=== PATIENT | female | born 1945 | race Caucasian/White ===

== ENCOUNTER → 2018-04-16 11:02 | Outpatient (CLI) | payer BC, MEDICARE, SELFPAY ==
--- NOTE | 2018-04-16 11:04 | CDU_ITS ---
Reason For Study: Vertigo Rt. Velocities/BP Lt. Velocities/BP Prox CCA 87/12 cm/sec. Prox CCA 106/16 cm/sec. Mid CCA 87/16 cm/sec. Mid CCA 93/15 cm/sec. Dist CCA 101/18 cm/sec. Dist CCA 104/20 cm/sec. Prox ICA 161/30 cm/sec. Prox ICA 109/21 cm/sec. Mid ICA 166/25 cm/sec. Mid ICA 130/33 cm/sec. Dist ICA 138/34 cm/sec. Dist ICA 101/30 cm/sec. Rt. ICA/CCA = 1.91. Lt. ICA/CCA = 1.40. Prox ECA 236/3 cm/sec. Prox ECA 139/2 cm/sec. Rt. Vert. 96/20 cm/sec. Lt. Vert. 77/15 cm/sec. Right Extracranial There is heterogeneous, smooth atherosclerotic plaque noted in the right common carotid artery. There is heterogeneous, irregular atherosclerotic plaque noted in the right internal carotid artery. There is heterogeneous, irregular atherosclerotic plaque noted in the right external carotid artery. Antegrade flow is noted in the right vertebral artery. Left Extracranial There is heterogeneous, irregular atherosclerotic plaque noted in the left common carotid artery. There is heterogeneous, smooth atherosclerotic plaque noted in the left internal carotid artery. There is heterogeneous, irregular atherosclerotic plaque noted in the left external carotid artery. Antegrade flow is noted in the left vertebral artery. Procedure Carotid Duplex [id number]. Exam performed in department. Interpretation Summary Moderate (50-69%) stenosis right extracranial internal carotid. Mild (<50%) stenosis left extracranial internal carotid. Flow within the vertebral arteries is antegrade bilaterally. Ordering Physician: Qing Sheridan Referring Physician: Smith Orozco Performed By: Tamiko Singh, ZAIN, RVT
== END ==
PROVIDERS: Family Provider Family Medicine; PCP Family Medicine; Visit Provider Physician Assistant Medical
DX: R09.89 Other specified symptoms and signs involving the circulatory and respiratory systems (principal); I25.10 Atherosclerotic heart disease of native coronary artery without angina pectoris; I10 Essential (primary) hypertension; R42 Dizziness and giddiness; R00.2 Palpitations
CPT/HCPCS: 93225; 93226; 93880

== ENCOUNTER → 2018-04-25 09:19 | Outpatient (CLI) | payer BC, MEDICARE, SELFPAY ==
[2018-04-25 10:53] LABS: AST(SGOT) 19 U/L (15-37); Alanine Aminotransfer ALT/SGPT 17 U/L (13-56); Albumin, Serum 3.6 g/dL (3.2-5.0); Alkaline Phosphatase 65 U/L (45-117); Bilirubin, Direct 0.09 mg/dL (0.00-0.30); Cholesterol 202 mg/dL (200); Globulin 3.4 g/dL (2.2-4.2); High Density Lipoprotein 73 mg/dL; Triglycerides 63 mg/dL; Very Low Density Lipoprotein 13 mg/dL (5-40)
== END ==
PROVIDERS: Family Provider Family Medicine; PCP Family Medicine; Visit Provider Physician Assistant Medical
DX: I25.10 Atherosclerotic heart disease of native coronary artery without angina pectoris (principal); R09.89 Other specified symptoms and signs involving the circulatory and respiratory systems
CPT/HCPCS: 36415; 80061; 80076

== ENCOUNTER → 2018-05-23 12:14 | Outpatient (CLI) | payer BC, MEDICARE, SELFPAY ==
[2018-05-23 13:31] LABS: Free T3 2.5 pg/mL (2.18-3.98); T4 Free Direct 1.39 ng/dL (0.76-1.46); Thyroid Stim Hormone (TSH) 0.24 uIU/mL (0.358-3.74)
== END ==
PROVIDERS: Family Provider Family Medicine; PCP Family Medicine; Visit Provider Nurse Practitioner
DX: E03.9 Hypothyroidism, unspecified (principal); R13.10 Dysphagia, unspecified
CPT/HCPCS: 36415; 84439; 84443; 84481

== ENCOUNTER → 2018-07-19 07:04 | Outpatient (CLI) | payer BC, MEDICARE, SELFPAY ==
--- NOTE | 2018-07-19 09:59 | STRESSREP ---
Stress Test Report Date: 07/19/2018 Procedure: Exercise tolerance test/imaging study Indications: Chest pain Consent: Per the patient Procedure: The patient exercised on a Regulo protocol for 6 minutes completing Stage II achieving a peak heart rate of 137 bpm (93 % predicted maximal heart rate) with a peak blood pressure 182/80 mmHg and a peak MET capacity of 7 METs. The baseline ECG demonstrated. The peak exercise ECG demonstrated no obvious ECG changes. There was a rare PVC during recovery. The functional capacity was considered good. There was no complaint of chest discomfort during exercise or recovery. The examination was discontinued secondary to foot discomfort. Impression: 1. Technically adequate (percent predicted maximal heart rate greater than 85%) exercise tolerance test 2. Peak exercise ECG with no obvious ECG changes 3. There was a rare PVC during recovery 4. Nuclear images pending Myocardial perfusion imaging study: Technique: The patient was injected with 10.9 mCi of technetium 99m Cardiolite and subsequently rest SPECT Cardiolite nuclear imaging was obtained in the horizontal long, vertical long, and short axis views. The patient exercised on a Regulo protocol for 6 minutes completing Stage II achieving a peak heart rate of 137 bpm (93 % predicted maximal heart rate) with a peak blood pressure 182/80 mmHg and a peak MET capacity of 7 METs. The patient was injected with 32.5 mCi of technetium 99m Cardiolite and subsequently stress SPECT Cardiolite nuclear imaging was obtained in the horizontal long, vertical long, and short axis views. A gated Cardiolite study at peak stress was obtained. Interpretation: Rest and stress SPECT Cardiolite nuclear imaging status post realignment, normalization, and attenuation correction, demonstrates the appearance of relative uniform tracer uptake and myocardial perfusion appearing within normal limits. There is end systolic thickening and brightening. The gated Cardiolite study demonstrates myocardial thickening and inward wall motion. The reported LVEF is 85 %. Impression: 1. Rest and stress SPECT Cardiolite nuclear imaging demonstrate relative uniform tracer uptake and myocardial perfusion appearing within normal limits. 2. The gated Cardiolite study reports an LVEF of 85 %. This note was generated with [employer] software. It may contain incorrect words, spelling, and punctuation that were not noted in checking the note before signing.
--- NOTE | 2018-07-19 10:02 | STRESSREP_ITS ---
Stress Test Report Date: 07/19/2018 Procedure: Exercise tolerance test/imaging study Indications: Chest pain Consent: Per the patient Procedure: The patient exercised on a Regulo protocol for 6 minutes completing Stage II achieving a peak heart rate of 137 bpm (93 % predicted maximal heart rate) with a peak blood pressure 182/80 mmHg and a peak MET capacity of 7 METs. The baseline ECG demonstrated. The peak exercise ECG demonstrated no obvious ECG changes. There was a rare PVC during recovery. The functional capacity was considered good. There was no complaint of chest discomfort during exercise or recovery. The examination was discontinued secondary to foot discomfort. Impression: 1. Technically adequate (percent predicted maximal heart rate greater than 85%) exercise tolerance test 2. Peak exercise ECG with no obvious ECG changes 3. There was a rare PVC during recovery 4. Nuclear images pending Myocardial perfusion imaging study: Technique: The patient was injected with 10.9 mCi of technetium 99m Cardiolite and subsequently rest SPECT Cardiolite nuclear imaging was obtained in the horizontal long, vertical long, and short axis views. The patient exercised on a Regulo protocol for 6 minutes completing Stage II achieving a peak heart rate of 137 bpm (93 % predicted maximal heart rate) with a peak blood pressure 182/80 m mHg and a peak MET capacity of 7 METs. The patient was injected with 32.5 mCi of technetium 99m Cardiolite and subsequently stress SPECT Cardiolite nuclear imaging was obtained in the horizontal long, vertical long, and short axis views. A gated Cardiolite study at peak stress was obtained. Interpretation: Rest and stress SPECT Cardiolite nuclear imaging status post realignment, normalization, and attenuation correction, demonstrates the appearance of relative uniform tracer uptake and myocardial perfusion appearing within normal limits. There is end systolic thickening and brightening. The gated Cardiolite study demonstrates myocardial thickening and inward wall motion. The reported LVEF is 85 %. Impression: 1. Rest and stress SPECT Cardiolite nuclear imaging demonstrate relative uniform tracer uptake and myocardial perfusion appearing within normal limits. 2. The gated Cardiolite study reports an LVEF of 85 %. This note was generated with TMS software. It may contain incorrect words, spelling, and punctuation that were not noted in checking the note before signing.
== END ==
PROVIDERS: Family Provider Family Medicine; PCP Family Medicine; Referring Provider Physician Assistant Medical; Visit Provider Physician Assistant Medical
DX: R07.9 Chest pain, unspecified (principal); I25.10 Atherosclerotic heart disease of native coronary artery without angina pectoris; E78.5 Hyperlipidemia, unspecified; I10 Essential (primary) hypertension; R00.2 Palpitations; R09.89 Other specified symptoms and signs involving the circulatory and respiratory systems
CPT/HCPCS: 78452; 93017; A9500; A4216

== ENCOUNTER → 2019-01-18 08:09 | Outpatient (CLI) | payer BC, MEDICARE, SELFPAY ==
[2018-08-01 13:39] VITALS: BMI 22.6
[2019-01-18 10:33] LABS: Absolute Lymphocyte Count 1.22 X10^3/ul (0.83-4.51); Absolute Neutrophil Count 3.1 X10^3/uL (2.0-7.7); Basophil# 0.03 X10^3/uL; Basophil% 0.6 % (0-1); Eosinophil# 0.11 X10^3/uL; Eosinophils% 2.3 % (0-5); Hematocrit 39.3 % (37-47); Lymphocyte # 1.22 X10^3/ul (4.0); Lymphocyte % 25.6 % (19-41); Mean Corp Hgb Conc 33.1 g/gl (32-36); Mean Corpuscular Hgb 28.1 pg (27.0-32.0); Mean Corpuscular Volume 85.1 fL (81-99); Mean Platelet Vol. 8.7 fl (6.2-12.0); Monocyte# 0.31 X10^3/uL; Monocyte% 6.5 % (0-10); Neutrophil # 3.09 X10^3/uL (2.7-7.7); POSITIVE COUNT NO; POSITIVE DIFFERENTIAL NO; POSITIVE MORPHOLOGY NO; Platelet Count 310 K/mm3 (150-450); RBC Distribution Width CV 13.1 % (11.6-14.6); RBC Distribution Width SD 40.6 fl (35.1-43.9); Red Blood Count 4.62 M/mm3 (4.2-5.4); White Blood Count 4.8 K/mm3 (4.4-11.0)
[2019-01-18 11:06] LABS: Anion Gap 7 (5-15); BUN 16 mg/dL (7-18); BUN/Creat Ratio 19.3 RATIO (10-20); Calcium,Total 8.7 mg/dL (8.5-10.1); Chloride 105 mmol/L (98-107); Creatinine, Serum 0.83 mg/dL (0.55-1.02); EST Glomerular Filtration Rate 72 mL/min (>60); Est Glom Filt Rate - Afr Amer 87 mL/min (>60); Glucose 106 mg/dL (74-106); Magnesium 2.1 mg/dL (1.6-2.6); Potassium 3.7 mmol/L (3.5-5.1); Sodium Level 141 mmol/L (136-145); T4 Free Direct 1.28 ng/dL (0.76-1.46)
== END ==
PROVIDERS: Family Provider Family Medicine; PCP Family Medicine; Referring Provider Nurse Practitioner Family; Visit Provider Nurse Practitioner Family
DX: I48.0 Paroxysmal atrial fibrillation (principal); I25.10 Atherosclerotic heart disease of native coronary artery without angina pectoris; R00.2 Palpitations
CPT/HCPCS: 36415; 80048; 83735; 84439; 84443; 85025

== ENCOUNTER → 2019-02-05 10:55 | Outpatient (CLI) | payer BC, MEDICARE, SELFPAY ==
[2018-08-01 13:39] VITALS: BMI 22.6
[2019-01-30 08:29] VITALS: BMI 22.8
--- NOTE | 2019-02-05 10:56 | ECHOD_ITS ---
Reason For Study: New Afib Procedure This was a 2D Doppler, Color Flow transthoracic echocardiogram. Exam performed in department. Left Ventricle Normal LV size. Left ventricular systolic function is normal. The estimated ejection fraction is 65 %. The global longitudinal strain = -21 % (normal). There is evidence of diastolic dysfunction. No regional wall motion abnormalities noted. Right Ventricle Normal RV size. Normal systolic function. Atria Normal left atrium. Normal right atrium. No doppler evidence for ASD. Mitral Valve There is no mitral annular calcification. Mild diffuse mitral valve thickening. Mild (1+) mitral valve insufficiency. Tricuspid Valve Normal tricuspid valve. Mild tricuspid valve insufficiency. Right ventricular systolic pressure estimated to be 29 mmHg. Aortic Valve Trisinus/trileaflet aortic valve. Mild diffuse aortic valve thickening. Mild focal aortic valve calcification. Aortic sclerosis, no stenosis. Trivial aortic valve insufficiency. Pulmonic Valve The pulmonic valve is not well visualized. Trivial pulmonic valve insufficiency. Great Vessels Normal sized aortic root. Pericardium/Pleural No pericardial effusion. MMode/2D Measurements & Calculations LVIDd: 3.2 cm IVSd: 1.5 cm Ao root diam: 3.0 cm LVIDs: 1.9 cm LVPWd: 0.84 cm LA dimension: 3.2 cm RVDd: 2.8 cm FS: 40.0 % LAV(MOD-bp): 46.0 ml LA A4 area: 16.1 cm2 RA A4 area: 15.2 cm2 LAV(MOD-bp) Indexed: 29.9 ml/m2 LAV(MOD-sp2): 49.9 ml LAV(MOD-sp4): 40.7 ml Time Measurements MV dec time: 0.25 sec Doppler Measurements & Calculations MV E max galen: 83.0 cm/sec Lat Peak E' Galen: 7.4 cm/sec Med Peak E' Galen: 5.0 cm/sec MV A max galen: 104.1 cm/sec E/E' lat: 11.3 E/E' med: 16.7 MV E/A: 0.80 MV V2 max: 113.6 cm/sec MV P1/2t max galen: 77.0 cm/sec Ao V2 max: 142.4 cm/sec MV max P.2 mmHg MV P1/2t: 100.4 msec Ao max P.1 mmHg MV V2 mean: 58.9 cm/sec MV dec slope: 224.8 cm/sec2 MV mean P.6 mmHg MVA(P1/2t): 2.2 cm2 MV V2 VTI: 32.1 cm AI end-d galen: 299.0 cm/sec LV V1 max: 81.4 cm/sec PA V2 max: 79.0 cm/sec LV V1 max P.7 mmHg TR max galen: 253.1 cm/sec TR max P.6 mmHg Interpretation Summary Left ventricular systolic function is normal. The estimated ejection fraction is 65 %. The global longitudinal strain = -21 % (normal). Mild diffuse mitral valve thickening. Mild (1+) mitral valve insufficiency. Mild tricuspid valve insufficiency. Aortic sclerosis, no stenosis. Trivial aortic valve insufficiency. Trivial pulmonic valve insufficiency. There is evidence of diastolic dysfunction. Ordering Physician: Maciel Singh Referring Physician: Maciel Singh Performed By: Gadiel Fox RCS
[2019-02-05 12:53] LABS: AST(SGOT) 21 U/L (15-37); Alanine Aminotransfer ALT/SGPT 24 U/L (13-56); Albumin, Serum 3.4 g/dL (3.2-5.0); Alkaline Phosphatase 78 U/L (45-117); Bilirubin, Direct 0.08 mg/dL (0.00-0.30); Cholesterol 148 mg/dL (200); Globulin 3.3 g/dL (2.2-4.2); High Density Lipoprotein 61 mg/dL; Protein, Total 6.7 g/dL (6.4-8.2); Triglycerides 76 mg/dL; Very Low Density Lipoprotein 15 mg/dL (5-40)
== END ==
PROVIDERS: Physician Assistant Medical; Family Provider Family Medicine; PCP Family Medicine; Referring Provider Nurse Practitioner Family; Visit Provider Nurse Practitioner Family
DX: I48.0 Paroxysmal atrial fibrillation (principal); R00.2 Palpitations; I25.10 Atherosclerotic heart disease of native coronary artery without angina pectoris; E78.5 Hyperlipidemia, unspecified
CPT/HCPCS: 36415; 80061; 80076; 93306

== ENCOUNTER → 2019-04-10 12:51 | Outpatient (CLI) | payer BC, MEDICARE, SELFPAY ==
[2019-01-30 08:29] VITALS: BMI 22.8
[2019-04-10 14:56] LABS: Absolute Lymphocyte Count 1.31 X10^3/uL (0.83-4.51); Absolute Neutrophil Count 2.8 X10^3/uL (2.0-7.7); Basophil# 0.03 X10^3/uL; Basophil% 0.6 % (0-1); Eosinophil# 0.14 X10^3/uL; Hematocrit 37.1 % (37-47); Hemoglobin 12.1 g/dL (12.0-15.0); Lymphocyte # 1.31 X10^3/ul (4.0); Lymphocyte % 27.7 % (19-41); Mean Corp Hgb Conc 32.6 g/dL (32-36); Mean Corpuscular Hgb 27.7 pg (27.0-32.0); Mean Corpuscular Volume 84.9 fL (81-99); Mean Platelet Vol. 8.7 fl (6.2-12.0); Monocyte# 0.44 X10^3/uL; Monocyte% 9.3 % (0-10); NRBC Flagged by Analyzer 0 % (0-5); Neutrophil # 2.81 X10^3/uL (2.7-7.7); Neutrophil % 59.4 % (47-70); Platelet Count 314 K/mm3 (150-450); RBC Distribution Width CV 13.9 % (11.6-14.6); RBC Distribution Width SD 43.1 fl (35.1-43.9); Red Blood Count 4.37 M/mm3 (4.2-5.4); White Blood Count 4.7 K/mm3 (4.4-11.0)
[2019-04-10 15:23] LABS: T4 Free Direct 1.35 ng/dL (0.76-1.46); Thyroid Stim Hormone (TSH) 0.52 uIU/mL (0.358-3.74)
== END ==
PROVIDERS: Family Provider Family Medicine; PCP Family Medicine; Referring Provider Nurse Practitioner Family; Visit Provider Nurse Practitioner Family
DX: I10 Essential (primary) hypertension (principal); I25.10 Atherosclerotic heart disease of native coronary artery without angina pectoris; E03.9 Hypothyroidism, unspecified; I51.7 Cardiomegaly; R00.2 Palpitations; Z79.899 Other long term (current) drug therapy; Z95.5 Presence of coronary angioplasty implant and graft
CPT/HCPCS: 36415; 84439; 84443; 85025

== ENCOUNTER → 2019-05-08 16:21 | Outpatient (CLI) | payer BC, MEDICARE, SELFPAY ==
[2019-05-08 14:54] VITALS: BMI 22.6
[2019-05-08 17:40] LABS: Absolute Lymphocyte Count 1.63 X10^3/uL (0.83-4.51); Absolute Neutrophil Count 3.5 X10^3/uL (2.0-7.7); Basophil# 0.03 X10^3/uL; Basophil% 0.5 % (0-1); Eosinophil# 0.16 X10^3/uL; Eosinophils% 2.7 % (0-5); Hematocrit 36.6 % (37-47); Hemoglobin 12.2 g/dL (12.0-15.0); Lymphocyte # 1.63 X10^3/ul (4.0); Lymphocyte % 27.9 % (19-41); Mean Corp Hgb Conc 33.3 g/dL (32-36); Mean Corpuscular Hgb 28.3 pg (27.0-32.0); Mean Corpuscular Volume 84.9 fL (81-99); Mean Platelet Vol. 8.7 fl (6.2-12.0); Monocyte# 0.47 X10^3/uL; NRBC Flagged by Analyzer 0 % (0-5); Neutrophil # 3.54 X10^3/uL (2.7-7.7); Neutrophil % 60.7 % (47-70); Platelet Count 280 K/mm3 (150-450); RBC Distribution Width CV 13.3 % (11.6-14.6); RBC Distribution Width SD 41.5 fl (35.1-43.9); Red Blood Count 4.31 M/mm3 (4.2-5.4); White Blood Count 5.8 K/mm3 (4.4-11.0)
[2019-05-08 18:02] LABS: Anion Gap 4 (5-15); BUN 16 mg/dL (7-18); BUN/Creat Ratio 17.6 RATIO (10-20); Calcium,Total 8.8 mg/dL (8.5-10.1); Chloride 106 mmol/L (98-107); Creatinine, Serum 0.91 mg/dL (0.55-1.02); EST Glomerular Filtration Rate 64 mL/min (>60); Est Glom Filt Rate - Afr Amer 78 mL/min (>60); Glucose 111 mg/dL (74-106); Magnesium 1.9 mg/dL (1.6-2.6); Sodium Level 139 mmol/L (136-145); T4 Free Direct 1.42 ng/dL (0.76-1.46)
== END ==
PROVIDERS: Family Provider Family Medicine; PCP Family Medicine; Referring Provider Nurse Practitioner Family; Visit Provider Nurse Practitioner Family
DX: R00.2 Palpitations (principal); E03.9 Hypothyroidism, unspecified; I10 Essential (primary) hypertension; I35.1 Nonrheumatic aortic (valve) insufficiency; R53.83 Other fatigue
CPT/HCPCS: 36415; 80048; 83735; 84439; 84443; 85025

== ENCOUNTER 2019-06-20 18:15 | Emergency (ER) | payer BC, MEDICARE, SELFPAY ==
[2019-05-08 14:54] VITALS: BMI 22.6
[2019-06-20 18:16] VITALS: BP 163/114; PULSE 67; RESP 17; TEMP 36.8; O2SAT 96; BMI 22.6
--- NOTE | 2019-06-20 18:36 | CT_ITS ---
STUDY: CT BRAIN WITHOUT CONTRAST REASON FOR EXAM: Female, 73 years old. Fall RADIATION DOSAGE (If Supplied By Facility): DLP = ( 745.49 ) mGycm TECHNIQUE: Transaxial CT imaging of the brain was performed without administration of intravenous contrast material. Individualized dose optimization techniques were used for this CT. COMPARISON: CT head August 29, 2015 FINDINGS: There is no acute bleed or infarct. There are chronic ischemic and atrophic changes. The ventricles are normal in configuration. There is no hydrocephalus. The visualized paranasal sinuses are clear. The mastoid air cells are well aerated. There is no skull fracture. CT/Brain/Head without Contrast IMPRESSION: No acute intracranial abnormality. Chronic ischemic and atrophic changes. Electronically Signed: Jose Lopez, at 18:58 EDT Tel , Service support ,
--- NOTE | 2019-06-20 19:07 | ED.DCSUM_ITS ---
- ER Visit Summary Date of Service: 06/20/19 Chief Complaint: [Head injury] History of Present Illness: The patient is a 73 F [presents to the emergency department after sustaining a head injury on June 13. Patient was in [place] and fell and struck her head on a [place]. No loss of consciousness. Patient continues to have headaches. Patient had some diminished hearing from the left ear for some time but that seemed to improve. Patient was seen by primary care physician who ordered a outpatient CT of her head but they recommended that she come to the emergency department to have it performed emergently as 1 of the medical radiation dosimetrist evaluating her thought there might be blood behind her left eardrum. Patient denies any neck pain. Denies chest pain or abdominal pain. She is had no nausea or vomiting. Continues to have intermittent headaches.] She does take aspirin but no other blood thinners. Physical Examination: [HEENT-PERRLA, EOMI. Cranial nerves II through XII grossly intact. TMs clear. Mucous membranes moist. No adenopathy. Patient does have some dried blood to the left TM but also the right TM however I do not appreciate any hemotympanum. Cardiovascular-regular rate and rhythm without murmur or ectopy Lungs-clear to auscultation, chest wall stable without crepitus or subcu emphysema Abdomen-normoactive bowel sounds, soft, nontender, no rebound or rigidity, no peritoneal signs. Neuro zeqi-iftmya-zjer and heel grande testing within normal limits, negative Romberg, negative pronator drift, fundi benign Extremities-intact ?4, normal range of motion, normal pulses, atraumatic] Test Results: [CT scan of the brain without contrast obtained was unremarkable and only showed chronic age-related changes. There is no evidence of intracranial hemorrhage or skull fracture.] Emergency Department Course and Treatment: [] Treatment Plan: [Follow-up with her primary care physician in 3 to 5 days. Patient advised to return if vomiting, difficulty with balance, or condition should worsen anyway.] Disposition: [Discharged home in stable condition.] Impression: [Closed head injury/concussion] This note was generated with [employer] software. It may contain incorrect words, spelling, and punctuation that were not noted in review of the chart prior to signing ED Disposition - Plan for ED Patient: Referrals: Singh Brunner NP-C [Primary Care Provider] -
--- NOTE | 2019-06-20 19:10 | ED.DEP ---
ED Disposition - Plan for ED Patient: Instructions: FALL, Mechanical, CONCUSSION, No Wake Up Referrals: Singh Brunner NP-C [Primary Care Provider] - 3-5 Days
[2019-06-20 19:32] VITALS: RESP 18
== END 2019-06-20 19:33 | disposition home or self-care (01) ==
LOC: ED 18:43
PROVIDERS: Emergency Provider Emergency Medicine; Family Provider Nurse Practitioner Primary Care; PCP Nurse Practitioner Primary Care
DX: S06.0X0A Concussion without loss of consciousness, initial encounter (principal); W18.09XA Striking against other object with subsequent fall, initial encounter; Z79.82 Long term (current) use of aspirin; I25.10 Atherosclerotic heart disease of native coronary artery without angina pectoris; I10 Essential (primary) hypertension; I48.91 Unspecified atrial fibrillation
CPT/HCPCS: 70450; 99282

== ENCOUNTER 2019-12-24 13:07 | Emergency (ER) | payer BC, MEDICARE, SELFPAY ==
[2019-12-24 13:09] VITALS: BP 190/65; PULSE 62; RESP 12; TEMP 36.6; O2SAT 99; BMI 23.3
--- NOTE | 2019-12-24 13:23 | EKG12_ITS ---
Test Reason : NEURO Blood Pressure : / mmHG Vent. Rate : 055 BPM Atrial Rate : 055 BPM P-R Int : 190 ms QRS Dur : 068 ms QT Int : 438 ms P-R-T Axes : 026 022 051 degrees QTc Int : 419 ms Sinus bradycardia Nonspecific ST and T wave abnormality Abnormal ECG Confirmed by BIBIANA PALACIOS ([id number]), dictionary editor LUCILA GRANDA ([id number]) on 12/26/2019 10:15:56 AM Referred By: PEYTON/KEV Confirmed By:BIBIANA PALACIOS
--- NOTE | 2019-12-24 13:23 | RAD_ITS ---
STUDY: X-RAY CHEST REASON FOR EXAM: Female, 74 years old. Sore throat and cough x several days TECHNIQUE: Single AP portable view of the chest. COMPARISON: Comparison is made with prior examination dated October 08, 2015. FINDINGS: EKG electrodes are seen. Hyperinflation. The lungs are clear. There is no demonstrated pleural abnormality. Normal size heart. Normal mediastinum and dionne. Normal visualized pulmonary arteries. There is atherosclerotic calcification of the aortic arch with tortuosity. There are diffuse degenerative changes of the visualized thoracic spine. Healed left rib fractures. There is no demonstrated abnormality of the visualized soft tissue structures of the upper abdomen. RAD/Chest 1 View (Portable) IMPRESSION: Hyperinflation. The lungs are clear. Electronically Signed: Chevy Fields, at 14:37 EDT , Service support ,
--- NOTE | 2019-12-24 13:24 | CT_ITS ---
STUDY: CT BRAIN WITHOUT CONTRAST REASON FOR EXAM: Female, 74 years old. LT FACIAL DROOP, COUGH and amp; SORE THROAT X 3 DAYS, HTN, CORONARY STENTS RADIATION DOSAGE (If Supplied By Facility): CTDIvol = ( 44.99 ) mGy, DLP = ( 762.36 ) mGycm TECHNIQUE: Transaxial CT imaging of the brain was performed without administration of intravenous contrast material. Individualized dose optimization techniques were used for this CT. COMPARISON: Comparison is made with prior examination dated June 20, 2019. FINDINGS: Normal soft tissue structures. Normal calvarium. There is mild cerebral atrophy with widening of the extra-axial spaces and ventricular dilatation. There are areas of decreased attenuation within the white matter tracts of the supratentorial brain, consistent with microvascular disease changes. Normal basal ganglia and thalami. Normal brainstem. Normal cerebellum. There is no intracranial hemorrhage. There are no findings of an acute ischemic infarction. Atherosclerotic calcification of the cavernous portions of the internal carotid arteries bilaterally. Normal visualized paranasal sinuses. CT/Brain/Head without Contrast IMPRESSION: Chronic involutional changes of the brain. Electronically Signed: Chevy Fields, at 14:33 EDT , Service support ,
[2019-12-24 13:31] LABS: Absolute Lymphocyte Count 1.76 X10^3/uL (0.83-4.51); Absolute Neutrophil Count 2.7 X10^3/uL (2.0-7.7); Basophil# 0.03 X10^3/uL; Basophil% 0.6 % (0-1); Eosinophil# 0.11 X10^3/uL; Eosinophils% 2.2 % (0-5); Hemoglobin 13.7 g/dL (12.0-15.0); Lymphocyte # 1.76 X10^3/ul (4.0); Lymphocyte % 34.6 % (19-41); Mean Corp Hgb Conc 34.3 g/dL (32-36); Mean Corpuscular Volume 87.5 fL (81-99); Mean Platelet Vol. 8.3 fl (6.2-12.0); Monocyte# 0.47 X10^3/uL; Monocyte% 9.2 % (0-10); NRBC Flagged by Analyzer 0 % (0-5); Neutrophil # 2.71 X10^3/uL (2.7-7.7); Neutrophil % 53.2 % (47-70); Platelet Count 293 K/mm3 (150-450); RBC Distribution Width CV 12.3 % (11.6-14.6); RBC Distribution Width SD 39.4 fl (35.1-43.9); Red Blood Count 4.57 M/mm3 (4.2-5.4); White Blood Count 5.1 K/mm3 (4.4-11.0)
[2019-12-24] MEDS: 0.9% Normal Saline 1,000 ML 150 ML IV (13:38)
[2019-12-24 13:42] LABS: Lactic Acid 0.9 mmol/L (0.4-1.9)
[2019-12-24 13:44] LABS: Anion Gap 3 (5-15); BUN 15 mg/dL (7-18); BUN/Creat Ratio 17.3 RATIO (10-20); Chloride 105 mmol/L (98-107); Creatinine, Serum 0.86 mg/dL (0.55-1.02); EST Glomerular Filtration Rate 68 mL/min (>60); Est Glom Filt Rate - Afr Amer 82 mL/min (>60); Estimated Creatinine Clearance 46.76 ml/min; Glucose 100 mg/dL (74-106); Potassium 3.8 mmol/L (3.5-5.1); Sodium Level 138 mmol/L (136-145)
[2019-12-24 13:50] LABS: Bedside Glucose 94 mg/dL (70-110)
--- NOTE | 2019-12-24 14:36 | ED.DCSUM_ITS ---
- ER Visit Summary Date of Service: 12/24/19 Chief Complaint: Cough History of Present Illness: The patient is a [address] Perez and Dr. Max. She reports that she has a cough that began 2 days ago. Is productive clear sputum without blood. She has subjective fever and chills. She reports that she has an itchy throat. She denies any pain. She reports that she has mild shortness of breath that is much worse when she is coughing. She complains of generalized weakness and a headache that 6 out of 10 in severity. Patient works at [employer] in [place] and had been working until 5 days ago. On review of systems patient reports that 3 days ago she had an episode of floating tattered flags that were black-white and silver in her vision bilaterally. This resolved after approximately 10 minutes. She has not had this since that time. She reports that since yesterday she feels as though she has a left facial droop. She denies any numbness or weakness in her arms or legs. No aphasia. No further changes in her vision. Physical Examination: Vitals: Stable. Afebrile. General: Well-nourished and well-developed. Head: Normocephalic atraumatic. Neck: Supple, no lymphadenopathy. No JVD. Nontender. Cardiovascular: Regular rate and rhythm. No murmurs. Respiratory: No respiratory distress. Clear to auscultation bilaterally. Abdominal: Soft, nontender, nondistended, normal bowel sounds. No guarding, rebound, or peritoneal signs. Back: Nontender. Extremities: Nontender, no edema. Skin: Normal color, no rash. Neurologic: Alert and oriented ?3. Cranial nerves II through XII are intact except for a very minimal left facial droop. Normal strength and sensation. Psych: Normal affect. Test Results: EKG is sinus bradycardia [address] changes. Troponin is negative. Influenza is negative. Chem-7 is normal. CBC is normal. Lactic acid is 0.9. Clinical Impression(s) from Imaging Studies Chest X-Ray 12/24/19 13:23 IMPRESSION: Hyperinflation. The lungs are clear. Electronically Signed: Chevy Fields, at 14:37 EDT , Service support , Brain CT 12/24/19 13:24 IMPRESSION: Chronic involutional changes of the brain. Electronically Signed: Chevy Fields, at 14:33 EDT , Service support , Emergency Department Course and Treatment: Patient is wearing a mask. I do not know if the facial droop is from this. There is very minimal and her NIH scale would only be 1. I discussed the possibility of staying in the hospital for a stroke work-up with her. She has refused this. However, she is quite concerned that she does have coronavirus. Patient was discussed with the [facility] and has had a coronavirus test sent. Treatment Plan: Patient will be discharged with instructions to have social isolation and quarantine herself for the next 2 weeks. She was given instructions on how to do this. Follow-up with her primary care physician in 2 weeks if not improving. Return to the emergency department for any worsening symptoms. Disposition: To home in improved and stable condition. Impression: 1. URI. 2. Suspected COVID-19 exposure. 3. Left facial droop. This note was generated with [employer] dictation software. It may contain incorrect words, spelling, and punctuation that were not noted in review of the chart prior to signing ED Disposition - Plan for ED Patient: Instructions: ED Upper Resp Infec No Abx Tx Referrals: Smith Orozco MD [STAFF PHYSICIAN] - 10-14 Days if not better
[2019-12-24 15:48] VITALS: BP 185/65; PULSE 52; RESP 11; O2SAT 100
--- NOTE | 2019-12-30 12:50 | ED.RN ---
PT NOTIFIED COVID-19 TEST NEGATIVE
== END 2019-12-24 16:09 | disposition home or self-care (01) ==
LOC: ED 14:23
PROVIDERS: Emergency Provider Emergency Medicine; PCP Nurse Practitioner Family
DX: J06.9 Acute upper respiratory infection, unspecified (principal); Z20.828 Contact with and (suspected) exposure to other viral communicable diseases; R29.810 Facial weakness; I11.0 Hypertensive heart disease with heart failure; I50.9 Heart failure, unspecified; E03.9 Hypothyroidism, unspecified; K21.9 Gastro-esophageal reflux disease without esophagitis; Z79.82 Long term (current) use of aspirin; Z79.899 Other long term (current) drug therapy; Z95.5 Presence of coronary angioplasty implant and graft
CPT/HCPCS: 70450; 71045; 80048; 82962; 83605; 84484; 85025; 87040; 87633; 87635; 87804; 93005; 96360; 96361; 99284; J7030; U0004

== ENCOUNTER → 2020-02-26 07:27 | Outpatient (CLI) | payer BC, MEDICARE, SELFPAY ==
[2020-02-05 10:13] VITALS: BMI 21.8
--- NOTE | 2020-02-26 07:32 | CDU_ITS ---
Reason For Study: Carotid artery disease Rt. Velocities/BP Lt. Velocities/BP Prox CCA 69.5/13.4 cm/sec. Prox CCA 87.5/18.8 cm/sec. Mid CCA 69.5/13.4 cm/sec. Mid CCA 70.3/16.3 cm/sec. Dist CCA 91.7/22.6 cm/sec. Dist CCA 75.3/20 cm/sec. Prox ICA 121.4/16 cm/sec. Prox ICA 61.8/18.8 cm/sec. Mid ICA 147.7/27 cm/sec. Mid ICA 96.1/29.8 cm/sec. Dist ICA 112.6/27 cm/sec. Dist ICA 77.7/24.9 cm/sec. Rt. ICA/CCA = 2.13. Lt. ICA/CCA = 1.28. Prox ECA 148.4 cm/sec. Prox ECA 99.8 cm/sec. Rt. Vert. 71.6/10.2 cm/sec. Lt. Vert. 55.3/15.7 cm/sec. Right Extracranial There is heterogeneous, smooth atherosclerotic plaque noted in the right common carotid artery. There is heterogeneous, irregular atherosclerotic plaque noted in the right internal carotid artery. The atherosclerotic plaque causes acoustic shadowing. There is heterogeneous, irregular atherosclerotic plaque noted in the right external carotid artery. Antegrade flow is noted in the right vertebral artery. Left Extracranial There is heterogeneous, smooth atherosclerotic plaque noted in the left common carotid artery. There is heterogeneous, irregular atherosclerotic plaque noted in the left internal carotid artery. There is intimal thickening but no significant atherosclerotic plaque noted in the left external carotid artery. Antegrade flow is noted in the left vertebral artery. Procedure Carotid Duplex [id number]. Exam performed in department. Interpretation Summary Moderate (50-69%) stenosis right extracranial internal carotid. Mild (<50%) stenosis left extracranial internal carotid. Flow within the vertebral arteries is antegrade bilaterally. Ordering Physician: Nicholas Max Referring Physician: Kushal Mathur Performed By: Portia Benjamin RVT
[2020-02-26 08:23] LABS: AST(SGOT) 23 U/L (15-37); Alanine Aminotransfer ALT/SGPT 21 U/L (13-56); Albumin, Serum 3.7 g/dL (3.2-5.0); Alkaline Phosphatase 77 U/L (45-117); Bilirubin, Direct 0.12 mg/dL (0.00-0.30); Cholesterol 148 mg/dL (200); Globulin 3.5 g/dL (2.2-4.2); High Density Lipoprotein 69 mg/dL; Protein, Total 7.2 g/dL (6.4-8.2); Triglycerides 69 mg/dL; Very Low Density Lipoprotein 14 mg/dL (5-40)
--- NOTE | 2020-02-26 09:17 | STRESSREP ---
Stress Test Report Date: 02-26-2020 Procedure: Exercise tolerance test/imaging study Indications: Shortness of breath/dyspnea; fatigue; CAD; status post PCI Consent: Per the patient Procedure: The patient exercised on a Regulo protocol for 7 minutes and 30 seconds completing Stage II and 1 minute and 30 seconds of Stage III achieving a peak heart rate of 121 bpm (83 % predicted maximal heart rate) with a peak blood pressure 162/60 mmHg and a peak MET capacity of 9 METs. The baseline ECG demonstrated sinus bradycardia. The peak exercise ECG demonstrated somatic/motion artifact with no obvious ECG changes. There were no cardiac dysrhythmias pretest, during exercise, or recovery. The functional capacity was considered good. There was no complaint of chest discomfort during exercise or recovery. The examination was discontinued secondary to fatigue. Impression: 1. Technically inadequate (percent predicted maximal heart rate less than 85%) exercise tolerance test 2. Peak exercise ECG somatic/motion artifact with no obvious ECG changes at the heart rate achieved 3. There were no cardiac dysrhythmias pretest, during exercise, or recovery 4. Nuclear images pending Myocardial perfusion imaging study: Technique: The patient was injected with 11.0 mCi of technetium 99m Cardiolite and subsequently rest SPECT Cardiolite nuclear imaging was obtained in the horizontal long, vertical long, and short axis views. The patient exercised on a Regulo protocol for 7 minutes and 30 seconds completing Stage II and 1 minute and 30 seconds of Stage III achieving a peak heart rate of 121 bpm (83 % predicted maximal heart rate) with a peak blood pressure 162/60 mmHg and a peak MET capacity of 9 METs. The patient was injected with 35.7 mCi of technetium 99m Cardiolite and subsequently stress SPECT Cardiolite nuclear imaging was obtained in the horizontal long, vertical long, and short axis views. A gated Cardiolite study at peak stress was obtained. Interpretation: Rest and stress SPECT Cardiolite nuclear imaging status post realignment, normalization, and attenuation correction, demonstrates the appearance of relative uniform tracer uptake and myocardial perfusion appearing within normal limits. There is end systolic thickening and brightening. The gated Cardiolite study demonstrates myocardial thickening and inward wall motion. The reported LVEF is 95 %. Impression: 1. Rest and stress SPECT Cardiolite nuclear imaging demonstrate relative uniform tracer uptake and myocardial perfusion appearing within normal limits at the heart rate achieved. 2. The gated Cardiolite study reports an LVEF of 95 %. This note was generated with [employer] software. It may contain incorrect words, spelling, and punctuation that were not noted in checking the note before signing.
== END ==
PROVIDERS: Physician Assistant Medical; PCP Nurse Practitioner Family; Referring Provider Internal Medicine Cardiovascular Disease; Visit Provider Internal Medicine Cardiovascular Disease
DX: I65.23 Occlusion and stenosis of bilateral carotid arteries (principal); I25.10 Atherosclerotic heart disease of native coronary artery without angina pectoris; I77.9 Disorder of arteries and arterioles, unspecified; I35.9 Nonrheumatic aortic valve disorder, unspecified; I10 Essential (primary) hypertension; E78.5 Hyperlipidemia, unspecified; Z95.5 Presence of coronary angioplasty implant and graft
CPT/HCPCS: 36415; 78452; 80061; 80076; 93017; 93880; A9500; A4216

== ENCOUNTER 2020-08-26 07:52 | Day surgery (SDC) | payer BC, MEDICARE, SELFPAY ==
[2020-07-28 08:25] VITALS: BMI 21.2
[2020-08-26] VITALS (7 sets, daily range): BP systolic 134–167; BP diastolic 56–69; PULSE 61–70; RESP 16–18; TEMP 36.1–36.2; O2SAT 98–100; BMI 20.3
--- NOTE | 2020-08-26 | COLBX_PTH ---
PATIENT: MANDA AKBAR LOC: [facility] U#:[id number] AGE/SX: 74/F ROOM: RE08/26/[address]: Dr. Harris See MD : 1945 BED: DIS: 08/26/2020 SPEC #: [id number] RECD: 08/26/20 12:56 STATUS: JACEK CAILIN #: [id number] BRITTANY: 08/26/20 00:[address]: Harris See DEPT: SURGICAL PATHOLOGY RECD BY: Alton Yo ENTERED: 08/26/20 12:57 SP TYPE: COLON BX OTHR DR: Dr. Smith Orozco MD Tissues: A - Duodenum, NOS B - Gastric mucous membrane C - COLON BIOPSY Procedures: Trichrome (control) Special Stain Group II Surgery Specimen Level IV HEADER OPERATION: Colonoscopy, EGD ([facility] [place]) PRE-OP DIAGNOSIS: Pharyngoesophageal dysphagia; heartburn; GERD; esophagitis; epigastric abdominal pain; change in bowel habits; constipation TISSUE SUBMITTED: A - Duodenum biopsy, B - Antrum biopsy for histo and H. pylori, C - Random colonic biopsy MICROSCOPIC DIAGNOSIS A. Duodenum, biopsy: No pathologic change. B. Gastric antrum, biopsy: Mild chronic gastritis. See comment. C. Colon, random biopsy: Melanosis coli. See comment. AM:rianna 08/27/20 COMMENT B. The results of immunohistochemistry for Helicobacter pylori will be reported separately ([id number]). C. Trichrome stain with matched control was used in the evaluation of this case. MICROSCOPIC DESCRIPTION Slides are reviewed. GROSS DESCRIPTION A - Received in fixative is one container labeled with the patient's name and designated duodenum biopsy. The specimen consists of one irregular fragment of light fitch soft tissue that measures 0.4 x 0.2 x 0.1 cm. The specimen is totally submitted in one cassette. B - Received in fixative is one container labeled with the patient's name and designated antrum biopsy. The specimen consists of one irregular fragment of light fitch soft tissue that measures 0.4 x 0.3 x 0.1 cm. The specimen is totally submitted in one cassette. C - Received in fixative is one container labeled with the patient's name and designated random colonic biopsy. The specimen consists of multiple irregular fragments of light fitch soft tissue that in aggregate measure 1.5 x 0.5 x 0.1 cm. The specimen is totally submitted in one cassette. / SJ:rg 08/26/20 TC:3 CPT: 19775 x3, 79660
--- NOTE | 2020-08-26 08:00 | HP_ITS ---
Intake Vital Signs 07/28/20 Height 5 ft 3 in 07/28/20 Weight: 119 lb 8 oz 07/28/20 BP 148/70 H 07/28/20 Blood Pressure Location Rt brachial 07/28/20 Position Sitting 07/28/20 Respiration 18 07/28/20 Pulse 64 07/28/20 Pulse Source Monitor 07/28/20 Temp 97.3 F L 07/28/20 Temp Source Temporal 07/28/20 Pulse Oximetry (%) 100 07/28/20 Oxygen Delivery Method room air Intake Visit Reasons: CSCOPE/ EGD Chief Complaint: c-scope/EGD consult Hair Mixer Required: No Is patient in pain?: No Allergies albuterol Allergy (Intermediate, Verified 07/28/20 08:28) GI upset benzonatate [From Tessalon Perles] Allergy (Intermediate, Verified 07/28/20 08:31) GI upset cyclobenzaprine [From Flexeril] Allergy (Intermediate, Verified 07/28/20 08:29) mental status change hydrocodone [From Vicodin] Allergy (Intermediate, Verified 07/28/20 08:35) muscle twitching oxycodone Allergy (Intermediate, Verified 07/28/20 08:29) Vomiting tetanus and diphtheria toxoids Allergy (Intermediate, Verified 07/28/20 08:35) gi upset acetaminophen [From Tylenol] Adverse Reaction (Severe, Verified 04/15/20 14:56) Acute restless legs isosorbide Adverse Reaction (Severe, Verified 04/15/20 14:56) Headaches codeine Adverse Reaction (Intermediate, Verified 04/15/20 14:56) Nausea & Vomiting hydrochlorothiazide [From Dyazide] Adverse Reaction (Mild, Verified 07/28/20 08:28) intolerance triamterene [From Dyazide] Adverse Reaction (Mild, Verified 07/28/20 08:28) intolerance erythromycin base Adverse Reaction (Verified 04/15/20 14:56) Nausea Medications Multivitamin [Daily Multiple Vitamin] 1 ea PO DAILY 08/19/15 [History Confirmed 07/28/20] traZODone [Desyrel] 50 mg PO QHS 08/19/15 [History Confirmed 07/28/20] Aspirin [Aspirin, Baby] 81 mg PO DAILY@0800 tab.chew 08/21/15 [Rx Confirmed 07/28/20] potassium chloride 20 mEq tablet,extended release 20 meq PO DAILY 90 Days #90 tab 11/25/19 [Rx Confirmed 07/28/20] glucosamine-chondroitin 250 mg-200 mg tablet 1 tab PO BID tab 02/05/20 [History Confirmed 07/28/20] hydrochlorothiazide 25 mg tablet 25 mg PO QDAY #90 tab 02/26/20 [Rx Confirmed 07/28/20] metoprolol succinate 50 mg tablet,extended release 24 hr 50 mg PO DAILY #90 tab 02/26/20 [Rx Confirmed 07/28/20] gabapentin 300 mg capsule PO 04/15/20 [History Confirmed 07/28/20] levothyroxine 100 mcg tablet 88 mcg PO DAILY tab 04/15/20 [History Confirmed 07/28/20] atorvastatin 20 mg tablet 20 mg PO QHS #90 tab 07/07/20 [Rx Confirmed 07/28/20] bisacodyl 5 mg tablet 5 mg PO ONCE 07/28/20 [History Confirmed 07/28/20] lisinopril 10 mg tablet 20 mg PO DAILY #90 tab 07/28/20 [Rx Confirmed 07/28/20] [facility] Medical History Carotid stenosis, right (Acute) Bilateral carotid artery stenosis (Acute) Essential hypertension (Chronic) Presence of stent in coronary artery (Chronic ~09/01/15) 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) long-term use of drug (Chronic) Ventricular hypertrophy (Chronic) Diastolic dysfunction (Chronic) Aortic insufficiency (Chronic) Aortic valve disease (Chronic) GERD (gastroesophageal reflux disease) (Chronic) Hypothyroidism (Chronic) Insomnia (Chronic) Chest pain (Chronic) Angina pectoris (Chronic) Palpitations (Chronic) Carotid artery bruit (Chronic) Peptic ulcer disease (Chronic) Nonspecific abnormal serum enzyme levels (Chronic) Abdominal bloating (Acute) Cataracts, bilateral (Acute) Chronic headache (Acute) Constipation (Acute) Diarrhea (Acute) Dysphagia (Acute) GERD (gastroesophageal reflux disease) (Acute) GI problem (Acute) Hearing problem (Acute) Osteoarthritis (Acute) Seasonal allergies (Acute) Thyroid dysfunction (Acute) Vision problem (Acute) Family history of premature coronary heart disease (Chronic) Surgical History Presence of coronary angioplasty implant and graft (Chronic ~09/01/15) History of hysterectomy (Resolved) History of thyroidectomy (Resolved) Family History Mother , Age 76 heart attack Myocardial infarction Heart disease Cardiomyopathy Hypertension Osteoporosis Father , Heart Disease Age 86 Heart disease Parkinson disease CVA (cerebral vascular accident) Hypertension Unknown Thyroid disorder Stomach ulcer Social History (Updated 07/28/20 @ 12:[address] Harris See MD) Smoking Status: Never smoker alcohol intake: current alcohol intake frequency: holidays/special occasions only Alcohol type: wine substance use type: does not use caffeine: Yes Type: coffee Number of servings: 3 what type of physical activity do you participate in: walking frequency: 5-6 times per week seatbelt use: always do you feel safe at home: Yes HPI HPI Surgical H&P: Yes HPI: MANDA AKBAR, is a 74 F who presents to the office today for Evaluation for endoscopy. Patient has been experiencing epigastric abdominal pain she has noted heartburn gastroesophageal reflux disease as well as some dysphagia of the oropharynx and upper esophagus. This has been going off and on for many years but over the last month it has been fairly continuous. In addition the patient has been suffering with alternating constipation and diarrhea and has noticed a change in her bowel caliber. She has had some generalized abdominal discomfort as well as her epigastric abdominal discomfort. ROS General General: Yes fatigue; no weight change, appetite, colon cancer, breast cancer or weakness HEENT HEENT: Yes difficulty swallowing; no eye injury, eye surgery, swollen glands or hoarseness Endo Endocrine: Yes thyroid disease; no diabetes mellitus, thyroid cancer, Hair loss, heat intolerance or cold intolerance Skin Skin: No rash or changing moles Breast Breast: No left breast lump, right breast lump, nipple discharge, breast pain, abnormal mammogram, abnormal US or breast enlargement Musc Musculoskeletal: Yes arthritis; no back problems, rheumatoid arthritis, gout or joint pain Cardio Cardiovascular: Yes heart disease, atrial fibrillation, high blood pressure and heart stent; no murmur, pacemaker, heart attack, palpitations, shortness of breat with exertion or chest pain Psych Psychiatric: Yes anxiety; no depression or hearing voices Resp Respiratory: No shortness of breath, No sleep apnea, No cough, No COPD, No asthma, No emphysema, No wheezing Gastro Gastrointestinal: Yes abdominal pain, Yes nausea or vomiting, Yes diarrhea, Yes constipation, No blood in stool, Yes acid reflux, Yes hemorrhoids, Yes ulcers, No gallbladder problem, No black,tarry stools Jaylen Hematologic: No blood thinners, No blood disorders, No bleeding, No anemia, No blood clots Neuro Neurologic: No system reviewed and no additional complaints, except as docu, No as per HPI, No abnormal walking, No abnormal hearing, No abnormal movements, No abnormal speech, No behavioral changes, No burning sensations, No confusion, No seizure-like activity, No unsteadiness, No dizziness, No localized weakness, No frequent falls, No headache(s), No lack of coordination, No loss of vision, No memory loss, Yes numbness, No other visual disturbances, No radiating pain, No restless legs, No sensory deficit, No fainting, Yes tingling, No tremor(s), No weakness, No other Exam Const General: no acute distress, well developed, well hydrated Orientation: oriented to person, oriented to place, oriented to time [facility] Head: normocephalic, atraumatic Ears: external ears normal Mouth: moist mucous membranes Eyes Sclera: sclerae normal Pupils: normal by confrontation Neck Neck: no lymphadenopathy noted Neck mass: No Thyroid: thyroid normal, symmetrical Chest Chest palpation & inspection: normal inspection of the chest Breast Palpation: No nipple discharge Resp Effort & Inspection: normal respiratory effort Auscultation: clear to auscultation bilaterally Percussion: percussion normal Cardio Rate: regular rate Rhythm: regular rhythm Heart Sounds: no murmurs GI Palpation: soft, no hepatosplenomegaly, no masses, nontender Rectal Exam: other Other: Rectal exam deferred. Extrem General: normal to inspection, no clubbing, cyanosis or edema Assessment & Plan Problems 1. Pharyngoesophageal dysphagia R13.14 2. Heartburn R12 3. Gastroesophageal reflux disease, unspecified whether esophagitis present K21.9 4. Epigastric abdominal pain R10.13 5. Generalized abdominal pain R10.84 6. Change in bowel habits R19.4 7. Constipation, unspecified constipation type K59.00 8. Diarrhea, unspecified type R19.7 Plan I have discussed the above with the patient. I have offered the patient colonoscopy As well as an EGD for evaluation. I have explained the risks/benefits of the procedure and described the procedure. I have discussed the risks with the patient, including but not limited to: infection, bleeding, perforation of the GI tract requiring emergency surgery, inability to complete the procedure, injury to any internal organs, complications of anesthesia, etc. - the patient understands and agrees to proceed. I have answered all the patient's questions to the patient's satisfaction and the patient has no further questions. The patient has been given instructions for the colon cleansing preparation. We will be doing random colon biopsies We will be doing a duodenal biopsy. Medications Changed: From: lisinopril 10 mg PO DAILY 90 tabs 3RF To: lisinopril 20 mg (2 x 10 mg) PO DAILY 90 tabs 3RF Coding Level of Care Code Off vis,new,level 3 Diagnoses Pharyngoesophageal dysphagia R13.14 ??Dysphagia type: pharyngoesophageal phase Heartburn R12 Gastroesophageal reflux disease, unspecified whether esophagitis present K21.9 ??Esophagitis presence: esophagitis presence not specified Epigastric abdominal pain R10.13 Generalized abdominal pain R10.84 Change in bowel habits R19.4 Constipation, unspecified constipation type K59.00 ??Constipation type: unspecified constipation type Diarrhea, unspecified type R19.7 ??Diarrhea type: unspecified type COVID (Procedure Consent) Procedure Criteria Procedure Criteria: Yes Elective The surgeon/proceduralist and patient have discussed in detail the risk of exposure to and/or potential harm posed by the COVID-19 virus with having a surgery/procedure at this time versus the risk of? delaying the surgery/procedure. It is not possible to know either the risk of delaying the surgery or procedure or chance of getting an infection with perfect accuracy, but a joint decision was made between the patient and the surgeon/proceduralist ?to proceed at this time with the scheduled surgery/procedure as indicated on the consent form. I have re-examined the patient. There are no clinical changes since date of exam.
[2020-08-26] MEDS: Lactated Ringers 1,000 ML 100 ML IV (08:24)
--- NOTE | 2020-08-26 09:00 | IMM_PTH ---
PATIENT: MANDA AKBAR LOC: [facility] U#:[id number] AGE/SX: 74/F ROOM: RE08/26/[address]: Dr. Harris See MD : 1945 BED: DIS: 08/26/2020 SPEC #: [id number] RECD: 08/26/20 13:40 STATUS: JACEK REQ #: [id number] BRITTANY: 08/26/20 09:[address]: Harris See DEPT: IMMUNOHISTOCHEMISTRY RECD BY: Leonor Rajan ENTERED: 08/26/20 13:40 SP TYPE: IMMUNO OTHR DR: Dr. Smith Orozco MD Tissues: B - Stomach, NOS Procedures: H Pylori (initial) PHYSICIAN & INSTITUTION [place] [address] SPECIMEN INFORMATION: Tissue Source: B - Antrum biopsy Clinical Info: Pharyngoesophageal dysphagia; heartburn; GERD; esophagitis; epigastric abdominal pain Specimen Number: [id number] CPT code: 62157 METHODOLOGY: Deparaffinized sections of prefer/formalin-fixed tissue or PAP/DQ stained slides are incubated with monoclonal/polyclonal antibodies/oligonucleotide probes. Localization is made via biotin free immunoperoxidase method. Appropriate controls are performed and reacted as expected. Results on target cell population are indicated in the following table: RESULTS: ANTIBODY / CLONE RESULT Block B H Pylori (polyclonal) negative These tests were developed and their performance characteristics determined by [facility]. They may not have been cleared or approved by the U.S. Food and Drug Administration. The FDA has determined that such clearance or approval is not necessary. INTERPRETATION: B. Antrum, biopsy: Negative for Helicobacter pylori organisms. AM:rianna 08/27/20
--- NOTE | 2020-08-26 11:35 | OP.CCLET_ITS ---
08/26/2020 Smith Orozco [address] [place] [address] Re : Upper GI endoscopy procedure for Bharti Agnieszka Dear Dr. Orozco This procedure was performed on Wednesday, August 26, 2020. My impressions and recommendations are as follows: Impressions : - Normal esophagus. No specimens collected. - Gastritis. Biopsied. - Normal examined duodenum. Biopsied. - The examination was otherwise normal. Recommendations : - Await pathology results. - Repeat upper endoscopy (date not yet determined) for surveillance. - Telephone my office for pathology results in 1 week. - Continue present medications. My findings are described in the full procedure note, which is enclosed. If I can be of further assistance, please feel free to contact me at Doctor phone number(s): , Fax: [phone], Work: . Sincerely, MD Harris Ng MD 08/26/2020 9:20:11 AM This report has been signed electronically.
--- NOTE | 2020-08-26 11:35 | OP.COLON_ITS ---
Patient Name: Bharti Aaron Procedure Date: 08/26/2020 8:58 AM Date of : 1945 Age: 74 Procedure: Colonoscopy Indications: Generalized abdominal pain, Clinically significant diarrhea of unexplained origin, Change in bowel habits, Change in stool caliber, Constipation Providers: Harris See MD Referring MD: Harris See MD Medicines: See the Anesthesia note for documentation of the administered medications Patient Profile: This is a 74 year old female. Refer to note in patient chart for documentation of history and physical. Last Colonoscopy: date unknown. Unable to locate last colonoscopy report. Complications: No immediate complications. Procedure: Pre-Anesthesia Assessment: - Prior to the procedure, a History and Physical was performed, and patient medications and allergies were reviewed. The patient's tolerance of previous anesthesia was also reviewed. The risks and benefits of the procedure and the sedation options and risks were discussed with the patient. All questions were answered, and informed consent was obtained. Prior Anticoagulants: The patient has taken no previous anticoagulant or antiplatelet agents. ASA Grade Assessment: II - A patient with mild systemic disease. After reviewing the risks and benefits, the patient was deemed in satisfactory condition to undergo the procedure. After I obtained informed consent, the scope was passed under direct vision. Throughout the procedure, the patient's blood pressure, pulse, and oxygen saturations were monitored continuously. The colonoscope was introduced through the anus and advanced to the cecum, identified by appendiceal orifice and ileocecal valve. The colonoscopy was somewhat difficult due to a tortuous colon. The patient tolerated the procedure well. The quality of the bowel preparation was good. Scope In: 9:00:02 AM Scope Withdrawal Time 0 hours 7 minutes 5 seconds Scope Out: 9:14:58 AM Total Procedure Duration Time 0 hours 14 minutes 56 seconds Findings: The colon (entire examined portion) appeared normal. Biopsies for histology were taken with a cold forceps from the entire colon for evaluation of microscopic colitis. The exam was otherwise without abnormality on direct and retroflexion views. Patient was noted to have an extremely tortuous sigmoid colon which did take quite a bit of time to get through. Impression: - The entire examined colon is normal. Biopsied. - The examination was otherwise normal on direct and retroflexion views. Recommendation: - Discharge patient to home. - Resume previous diet. - Continue present medications. - Await pathology results. - Repeat colonoscopy in 5-10 years for surveillance. - Telephone my office for pathology results in 1 week. Procedure Code(s): --- Professional --- 66024, Colonoscopy, flexible; with biopsy, single or multiple Diagnosis Code(s): --- Professional --- R10.84, Generalized abdominal pain R19.7, Diarrhea, unspecified R19.4, Change in bowel habit R19.5, Other fecal abnormalities K59.00, Constipation, unspecified CPT copyright 2017 [employer]. All rights reserved. The codes documented in this report are preliminary and upon nike athlete review may be revised to meet current compliance requirements. MD Harris Ng MD 08/26/2020 9:24:46 AM This report has been signed electronically. Number of Addenda: 0 Note Initiated On: 08/26/2020 8:58 AM
--- NOTE | 2020-08-26 11:35 | OP.EGD_ITS ---
Patient Name: Bharti Aaron Procedure Date: 08/26/2020 8:49 AM Date of : 1945 Age: 74 Procedure: Upper GI endoscopy Indications: Epigastric abdominal pain, Dysphagia, Suspected gastro-esophageal reflux disease Providers: Harris See MD Referring MD: Harris See MD Medicines: See the Anesthesia note for documentation of the administered medications Patient Profile: This is a 74 year old female. Refer to note in patient chart for documentation of history and physical. Complications: No immediate complications. Procedure: Pre-Anesthesia Assessment: - Prior to the procedure, a History and Physical was performed, and patient medications and allergies were reviewed. The patient's tolerance of previous anesthesia was also reviewed. The risks and benefits of the procedure and the sedation options and risks were discussed with the patient. All questions were answered, and informed consent was obtained. Prior Anticoagulants: The patient has taken no previous anticoagulant or antiplatelet agents. ASA Grade Assessment: II - A patient with mild systemic disease. After reviewing the risks and benefits, the patient was deemed in satisfactory condition to undergo the procedure. After obtaining informed consent, the endoscope was passed under direct vision. Throughout the procedure, the patient's blood pressure, pulse, and oxygen saturations were monitored continuously. The gastroscope was introduced through the mouth, and advanced to the second part of duodenum. The upper GI endoscopy was accomplished without difficulty. The patient tolerated the procedure well. Scope In: 8:55:28 AM Scope Out: 8:57:55 AM Total Procedure Duration Time 0 hours 2 minutes 27 seconds Findings: The examined esophagus was normal. No biopsies or other specimens were collected for this exam. Localized mild inflammation characterized by erythema and linear erosions was found in the prepyloric region of the stomach. Biopsies were taken with a cold forceps for Helicobacter pylori testing. The examined duodenum was normal. Biopsies for histology were taken with a cold forceps for evaluation of celiac disease. The exam was otherwise without abnormality. Impression: - Normal esophagus. No specimens collected. - Gastritis. Biopsied. - Normal examined duodenum. Biopsied. - The examination was otherwise normal. Recommendation: - Await pathology results. - Repeat upper endoscopy (date not yet determined) for surveillance. - Telephone my office for pathology results in 1 week. - Continue present medications. Procedure Code(s): --- Professional --- 69574, Esophagogastroduodenoscopy, flexible, transoral; with biopsy, single or multiple Diagnosis Code(s): --- Professional --- K29.70, Gastritis, unspecified, without bleeding R10.13, Epigastric pain R13.10, Dysphagia, unspecified CPT copyright 2017 [employer]. All rights reserved. The codes documented in this report are preliminary and upon malted milk masher review may be revised to meet current compliance requirements. MD Harris Ng MD 08/26/2020 9:20:11 AM This report has been signed electronically. Number of Addenda: 0 Note Initiated On: 08/26/2020 8:49 AM
--- NOTE | 2020-08-26 11:36 | OP.CCLET_ITS ---
08/26/2020 Smith Orozco [address] [place] [address] Re : Colonoscopy procedure for Bharti Heil Dear Dr. Orozco This procedure was performed on Wednesday, August 26, 2020. My impressions and recommendations are as follows: Impressions : - The entire examined colon is normal. Biopsied. - The examination was otherwise normal on direct and retroflexion views. Recommendations : - Discharge patient to home. - Resume previous diet. - Continue present medications. - Await pathology results. - Repeat colonoscopy in 5-10 years for surveillance. - Telephone my office for pathology results in 1 week. My findings are described in the full procedure note, which is enclosed. If I can be of further assistance, please feel free to contact me at Doctor phone number(s): , Fax: [phone], Work: . Sincerely, MD Harris Ng MD 08/26/2020 9:24:46 AM This report has been signed electronically.
== END 2020-08-26 10:07 | disposition home or self-care (01) ==
LOC: EN 07:54 → AC 07:54
PROVIDERS: PCP Family Medicine; Referring Provider Surgery; Visit Provider Surgery
PROC: 0DJD8ZZ Inspection of Lower Intestinal Tract, Via Natural or Artificial Opening Endoscopic (ICD-10-PCS; CPT 45378; principal; 2020-08-26 08:55)
DX: K29.50 Unspecified chronic gastritis without bleeding (principal); K63.89 Other specified diseases of intestine; K27.7 Chronic peptic ulcer, site unspecified, without hemorrhage or perforation; R13.14 Dysphagia, pharyngoesophageal phase; K21.9 Gastro-esophageal reflux disease without esophagitis; Z20.828 Contact with and (suspected) exposure to other viral communicable diseases; I11.9 Hypertensive heart disease without heart failure; I25.119 Atherosclerotic heart disease of native coronary artery with unspecified angina pectoris; I48.91 Unspecified atrial fibrillation; E03.9 Hypothyroidism, unspecified; M19.90 Unspecified osteoarthritis, unspecified site; E78.00 Pure hypercholesterolemia, unspecified; Z79.82 Long term (current) use of aspirin; Z79.899 Other long term (current) drug therapy; Z78.0 Asymptomatic menopausal state; Z95.5 Presence of coronary angioplasty implant and graft
CPT/HCPCS: 43239; 45380; 87426; 88305; 88313; 88342; C9803; J7120; J1610; J2405

== ENCOUNTER → 2020-10-28 13:47 | Outpatient (CLI) | payer BC, MEDICARE, SELFPAY ==
[2020-09-02 13:52] VITALS: BMI 20.7
--- NOTE | 2020-10-28 13:51 | VDLE_ITS ---
Reason For Study: PAIN RIGHT LEFT CFV is compressible, spontaneous, phasic, GSV is normal. competent and demonstrates normal CFV is compressible, spontaneous, phasic, augmentation. competent, and demonstrates normal Procedure augmentation. Exam performed in department. FV is compressible, spontaneous, phasic, A preliminary report was called and/or faxed competent and demonstrates normal to SHADE CRUZ. augmentation. POP V is compressible, spontaneous, phasic, competent and demonstrates normal augmentation. T/P Trunk is compressible. PTV is compressible. LT PerV is compressible. Interpretation Summary There is no evidence of left lower extremity deep vein thrombosis. Left great saphenous vein appears patent and compressible segmentally. Patent and compressible right common femoral vein Ordering Physician: Shade Cruz Referring Physician: Shade Cruz Performed By: Wendy Torres, ZAIN, RVT
== END ==
PROVIDERS: Referring Provider Nurse Practitioner Family; Visit Provider Nurse Practitioner Family
DX: M79.662 Pain in left lower leg (principal); M79.89 Other specified soft tissue disorders
CPT/HCPCS: 93971

== ENCOUNTER → 2020-12-30 11:29 | Outpatient (CLI) | payer BC, MEDICARE, SELFPAY ==
[2020-09-02 13:52] VITALS: BMI 20.7
--- NOTE | 2020-12-30 11:34 | RAD_ITS ---
INDICATION: NECK PAIN EXAMINATION/TECHNIQUE: X-RAY - XR Spine Cervical 2 or 3 Views COMPARISON: None. FINDINGS: VERTEBRAE: Preserved vertebral body height. No fracture. 2 mm anterolisthesis C4 on C5. Straightening of the normal cervical lordosis. Moderate multilevel facet arthropathy. DISCS: Moderate multilevel disc space narrowing and osteophytosis. NECK SOFT TISSUES: No prevertebral soft tissue widening. Multiple surgical clips project over the prevertebral soft tissues and trachea. LUNG APICES: Clear. RAD/Cerv Spine 2 or 3 Views IMPRESSION: Grade 1 anterolisthesis C4 on C5. Moderate multilevel cervical spondylosis and facet arthropathy. Electronically Signed: Nik Ng MD at 22:50 EDT Tel , Service support ,
== END ==
PROVIDERS: Referring Provider Anesthesiology Pain Medicine; Visit Provider Anesthesiology Pain Medicine
DX: M54.2 Cervicalgia (principal)
CPT/HCPCS: 72040

== ENCOUNTER → 2021-01-04 08:29 | Outpatient (CLI) | payer BC, MEDICARE, SELFPAY ==
[2020-09-02 13:52] VITALS: BMI 20.7
--- NOTE | 2021-01-04 08:33 | VDLE_ITS ---
Reason For Study: Leg pain and swelling, Varicose veins Procedure LEFT This is a venous duplex using B-mode, color CFV is compressible, spontaneous, phasic, flow and spectral Doppler. competent, and demonstrates normal Exam performed in department. augmentation. Patient was scanned in reverse Trendelenburg FV is compressible, spontaneous, phasic, position during reflux assessment. competent and demonstrates normal augmentation. POP V is compressible, spontaneous, phasic, competent and demonstrates normal augmentation. T/P Trunk is compressible. PTV is compressible. LT PerV is compressible. SFJ is competent and measures 0.72 x 0.83 cm. GSV proximal thigh measures 0.30 x 0.32 cm. GSV at knee measures 0.12 x 0.12 cm. GSV is competent throughout. SSV proximal calf is competent and measures 0.16 x 0.18 cm. VL/Venous Duplex US, Unilateral Interpretation Summary Left leg no DVT or SVT noted. No reflux noted in the deep or superficial veins. Ordering Physician: Dheeraj Carpio Referring Physician: MD Smith Orozco Performed By: Portia Benjamin RVT
--- NOTE | 2021-01-04 08:34 | ART_ITS ---
Reason For Study: Atherosclerosis Procedure A bilateral lower extremity continuous wave Doppler with analog waveform analysis and ankle brachial indexes. Left Segmental Pressures Left brachial= 160mmHg. Left posterior tibial artery = 180mmHg. Left dorsalis pedis artery = 167mmHg. Left digit = 120 mmHg. The left dorsalis pedis waveforms are triphasic. The left posterior tibial artery waveforms are triphasic. Right Segmental Pressures Right brachial= 150mmHg. Right posterior tibial artery = 176mmHg. Right dorsalis pedis artery = 163mmHg. Right digit = 116 mmHg. The right dorsalis pedis waveforms are triphasic. The right posterior tibial artery waveforms are triphasic. Indices The right ankle brachial index by the dorsalis pedis is 1.02. The right ankle brachial index by the posterior tibial artery is 1.10. The right digital-brachial index is 0.73. The left ankle brachial index by the dorsalis pedis is 1.04. The left ankle brachial index by the posterior tibial artery is 1.13. The left digital-brachial index is 0.75. VL/Ankle Brachial Index Interpretation Summary Bilateral no significant occlusive disease noted at rest. Bilateral triphasic f low in an SHANELLE 1.1 on the right and 1.13 on the left. Digit brachial index normal at 0.73 on the righ t 0.75 on the left. Ordering Physician: Dheeraj Carpio Referring Physician: MD Smith Orozco Performed By: Portia Benjamin RVT
== END ==
PROVIDERS: PCP Family Medicine; Referring Provider Surgery Vascular Surgery; Visit Provider Surgery Vascular Surgery
DX: M79.89 Other specified soft tissue disorders (principal); M79.605 Pain in left leg; M79.604 Pain in right leg; E78.00 Pure hypercholesterolemia, unspecified; I83.893 Varicose veins of bilateral lower extremities with other complications; K21.9 Gastro-esophageal reflux disease without esophagitis; M81.0 Age-related osteoporosis without current pathological fracture; I11.9 Hypertensive heart disease without heart failure
CPT/HCPCS: 93922; 93971

== ENCOUNTER → 2021-01-22 12:45 | Outpatient (CLI) | payer BC, MEDICARE, SELFPAY ==
[2020-09-02 13:52] VITALS: BMI 20.7
--- NOTE | 2021-01-22 13:29 | SP.MBSS_ITS ---
Modified Barium Swallow - Patient Information Study Date: 01/22/21 Study Time: 13:00 Direct Billable Minutes: 120 Total Minutes procedure & reportin Diagnosis: dysphgia, unspecified (R13.10) Referring Physician: Natacha Narvaez NP Reason for Referral: To objectively assess swallow function under fluoroscopy and determine presence of aspiration. Medical History: The patient is a 75/F with past medical history including carotid stenosis, bilateral carotid artery stenosis, essential hypertension, presence of stent in coronary artery, atherosclerotic heart disease of [place] coronary artery without angina pectoris, ventricular hypertrophy, diastolic dysfunction, aortic insufficiency, aortic valve disease, GERD, hypothyroidism, insomnia, chest pain, angina pectoris, palpitations, carotid artery bruit, peptic ulcer disease, nonspecific abnormal serum enzyme levels, abdominal bloating, cataracts, chronic headache, constipation, diarrhea, dysphagia, GI problem, hearing problem, osteoarthritis, and seasonal allergies. Current Diet Ordered: regular textures/thin liquids Dentition: Natural Teeth Mental Status: WNL Respiratory Status: Oxygenating on Room Air - Study Findings Consistencies: Thin Liquid, [place] Thick Liquid, Honey Thick Liquid, Pudding, Cookie - Penetration-Aspiration Scale Penetration-Aspiration Scale: OBJECTIVE ASSESSMENT OF SWALLOW FUNCTION (QUANTITATIVE ? PER TRIAL): PENETRATION / ASPIRATION SCALE ([place]): 1 = does not enter airway 2 = enters airway/above vocal folds/ejected 3 = enters airway/above vocal folds/not ejected 4 = enters airway/contacts vocal folds/ejected 5 = enters airway/contacts vocal folds/not ejected 6 = enters airway/below vocal folds/ejected 7 = enters airway/below vocal folds/not ejected despite effort 8 = enters airway/below vocal folds/no effort - Penetration-Aspiration Scale Score Thin Liquid via teaspoon Result: 1= does not enter airway Thin Liquid via teaspoon Trial 2 Result: 1= does not enter airway Thin Liquid via small single sip from cup Result: 1= does not enter airway Thin Liquid via large single sip from cup Result: 1= does not enter airway Thin Liquid via sequential sips from cup Result: 1= does not enter airway [place] Thick Liquid via large single sip from cup Result: 1= does not enter airway Honey Thick Liquid via large single sip from cup Result: 1= does not enter airway Pudding via teaspoon Result: 1= does not enter airway Cookie Result: 1= does not enter airway Thin Liquid via sequential sips from straw Result: 1= does not enter airway - Oral Phase Labial Seal: No Labial Escape Tongue Control During Bolus Hold: Cohesive bolus between tongue to palatal seal Bolus Preparation/Mastication: Timely and efficient chewing and mashing Bolus Transport/Lingual Motion: Brisk tongue motion Oral Residue: Trace residue lining oral structures - Pharyngeal Phase Initiation of Pharyngeal Swallow: Bolus head at posterior angle of ramus at first hyoid excursion Soft Palate Elevation: No bolus between soft palate and pharyngeal wall Laryngeal Elevation: Comp. Superior move thyroid cart w/comp. apprx arytenoid cart-epig pet Anterior Hyoid Excursion: Complete anterior movement Epiglottic Movement: Complete inversion Laryngeal Vestibule Closure at Height of Swallow: Complete; no air/contrast in laryngeal vestibule Pharyngeal Stripping Wave: Present - complete Pharyngoesophageal Segment Opening: Complete distension and complete duration; no obstruction of flow Tongue Base Retraction: No contrast between tongue base and posterior pharyngeal wall Pharyngeal Residue: Trace residue within or on pharyngeal structures - Diagnosis/Impression Diagnosis: Swallow Function WNL Impression: Oral phase characterized by timely and effective mastication with adequate anterior to posterior transfer of bolus. Trace oral residue remained. Pharyngeal phase characterized by adequate swallow onset timing with adequate laryngeal elevation and hyoid excursion. Trace pharyngeal residue remained. No aspiration or penetration found throughout trials. Patient does c/o sensation of food/drink getting stuck as well as increased effort with swallowing and increased belching and bloating following meals/drinks. Would recommend further evaluation from a interceptor operator. - Recommendations Diet: Regular Textures, Thin Liquids Compensatory Strategies: Small Bites, Small Sips, Alternate bites/solids and sips/liquids, Sitting upright, Remain sitting upright for 30 minutes after PO intake Recommend Repeat Modified Barium Swallow: No Need for Skilled Speech Therapy Services: No Recommended Referrals: GI Consult Education Completed: 1. Described result of evaluation., 2. Pt understands evaluation & agrees with goals and treatment plan. - Status Active ST Patient: Active - Contact Information [facility] Speech Therapy:: Emelia Quezada MA, CCC-REFERRAL CLERK [facility] [address] [place] [address] [email or web address]
== END ==
PROVIDERS: PCP Family Medicine; Referring Provider Nurse Practitioner Adult Health; Visit Provider Nurse Practitioner Adult Health
DX: R13.12 Dysphagia, oropharyngeal phase (principal)
CPT/HCPCS: 74230; 92611

== ENCOUNTER 2021-07-01 18:29 | Inpatient (IN) | payer BC, MEDICARE, SELFPAY ==
[2021-07-01 18:30] VITALS: BP 122/46; PULSE 61; RESP 18; TEMP 36.4; O2SAT 100; BMI 19.8
--- NOTE | 2021-07-01 18:53 | EKG12_ITS ---
Test Reason : GI BLEED Blood Pressure : / mmHG Vent. Rate : 056 BPM Atrial Rate : 056 BPM P-R Int : 204 ms QRS Dur : 078 ms QT Int : 442 ms P-R-T Axes : 069 036 050 degrees QTc Int : 426 ms Sinus bradycardia Otherwise normal ECG Confirmed by ROBIN TORRES, VENICE ([id number]), editor farm journal MENDOZA ACOSTA ([id number]) on 07/06/2021 8:39:04 AM Referred By: DALJIT Confirmed By:VENICE KELLY MD
--- NOTE | 2021-07-01 18:53 | CT_ITS ---
EXAM: CT Abdomen and Pelvis With Intravenous Contrast CLINICAL INDICATION: 75 years old, Female; epigastric pain, LGIB, hx diverticulitis TECHNIQUE: Helically acquired images were obtained of the abdomen and pelvis with intravenous contrast. This CT exam was performed using one or more of the following dose reduction techniques: automated exposure control, adjustment of the mA and/or kV according to patient size, and/or use of iterative reconstruction technique. This report was created using Back& report generation technology. CONTRAST: IV 100mL Isovue-300 COMPARISON: CT dated 08/19/2015. FINDINGS: Lower thorax: Mild infiltrate or atelectasis posterior lungs. No cardiomegaly. No significant pericardial effusion. ABDOMEN: Liver: Calcified granulomata in the liver. Gallbladder and bile ducts: Unremarkable. No calcified gallstones. No gallbladder distention or wall edema. No intra- or extrahepatic biliary ductal dilation. Pancreas: Unremarkable. No focal cystic or solid mass. Spleen: Calcified granulomata in the spleen. Adrenals: Unremarkable. No nodules. Kidneys and ureters: Unremarkable. Normal renal size and position. No hydronephrosis. Stomach and bowel: There is some fluid in the colon suggesting diarrhea. There also appears to be some mild mucosal thickening in the colon concerning for colitis. No active GI bleeding is identified. No stomach or bowel distention. No significant diverticuli in the colon and no focal mucosal thickening or inflammation to suggest diverticulitis. PELVIS: Appendix: No evidence of acute appendicitis. Bladder: Unremarkable. Reproductive: Unremarkable as visualized. No mass. ABDOMEN and PELVIS: Intraperitoneal space: Unremarkable. No ascites or other fluid collection. No free air. Bones/joints: Unremarkable. No suspicious lytic or blastic abnormality. Soft tissues: Unremarkable. No discrete abdominal or pelvic wall hernia. Vasculature: Atherosclerotic disease. Abdominal aorta is non-dilated. Lymph nodes: Unremarkable. No enlarged lymph nodes. CT/Abdomen/Pelvis W IV Cont ONLY IMPRESSION: 1. No significant diverticuli in the colon and no focal mucosal thickening or inflammation to suggest diverticulitis. 2. There is some fluid in the colon suggesting diarrhea. There also appears to be some mild mucosal thickening in the colon concerning for colitis. No active GI bleeding is identified. 3. Mild infiltrate or atelectasis posterior lungs. Electronically Signed: Maciel Oates MD at 20:44 EDT Tel , Service support ,
--- NOTE | 2021-07-01 18:58 | EDS_ITS ---
HPI HPI - GI History of Present Illness Chief Complaint: GI Bleed Informant: patient Abdominal Pain/Flank Pain Onset: Today Context: Gradual Onset Timing: Continuous Quality: Aching Location: Epigastric (w/ radiation into mid-back) Current Severity: Moderate Maximum Severity: Moderate Worsened by: Nothing Relieved by: Nothing Nausea/Vomiting/Emesis GI Symptom: Positive for Nausea; Negative for Vomiting Diarrhea/Melena/Hematochezia GI Symptom: Positive for Diarrhea and Hematochezia; Negative for Melena Onset: Today Stool Quality: Positive for Loose and BRB per rectum (mixed w/ diarrhea) Severity: Moderate Episodes: 2 Associated Symptoms Associated Symptoms: Negative for Dysuria, Frequency, Hematuria and Urgency Narrative Narrative: Patient states earlier today she started getting upper abdominal discomfort that has persisted and has been constant, similar to when she had diverticulitis about a month ago, she was admitted to [facility] for that. She has had bloody stools with her diarrhea today as well. That is new. She states she was recently started on clopidogrel when she had some heart stents placed a couple weeks prior to her bout of diverticulitis before. She was admitted medically to that hospital at that time, she did not require abdominal surgery. She denies any fevers or chills. She states around 6 hours ago she had about 40-minute episode of chest discomfort that was retrosternal without radiation and she cannot describe it any other way. [facility] Medical History Abdominal bloating Angina pectoris Aortic insufficiency Aortic valve disease Atherosclerotic heart disease of [place] coronary artery without angina pectoris Bilateral carotid artery stenosis Carotid artery bruit Carotid stenosis, right Cataracts, bilateral Chest pain Chronic headache Constipation Diarrhea Diastolic dysfunction Dysphagia Essential hypertension Family history of premature coronary heart disease GERD (gastroesophageal reflux disease) GERD (gastroesophageal reflux disease) GI problem Hearing problem HLD (hyperlipidemia) Hypothyroidism Insomnia [facility] use of drug Nonspecific abnormal serum enzyme levels Osteoarthritis Palpitations Peptic ulcer disease Presence of stent in coronary artery (~04/19/21) Seasonal allergies Thyroid dysfunction TIA (transient ischemic attack) Ventricular hypertrophy Vision problem Home Medications multivitamin 1 ea PO DAILY 08/19/15 [History Last Taken 10/08/15] aspirin 81 mg PO DAILY@0800 tab.chew 08/21/15 [Rx Last Taken 10/07/15] potassium chloride 20 mEq tablet,extended release See Rx Instructions .ROUTE .COMPLEX #90 tablet 12/07/20 [Rx Last Taken Unknown] levothyroxine 100 mcg tablet 100 mcg PO DAILY 04/28/21 [History Last Taken Unknown] lisinopril 20 mg tablet 20 mg PO DAILY 04/28/21 [History Last Taken Unknown] meloxicam 7.5 mg tablet 15 mg PO DAILY 04/28/21 [History Last Taken Unknown] metoprolol tartrate 25 mg tablet 50 mg PO BID 04/28/21 [History Last Taken Unknown] ticagrelor 90 mg tablet 90 mg PO BID 04/28/21 [History Last Taken Unknown] atorvastatin 40 mg tablet 40 mg PO QHS #90 tab 05/26/21 [Rx Last Taken Unknown] nitroglycerin 0.4 mg sublingual tablet 0.4 mg SUBLINGUAL Q5-15M PRN #90 tab 05/26/21 [Rx Last Taken Unknown] trazodone 50 mg tablet 150 mg PO QHS tab 05/26/21 [History Last Taken Unknown] clopidogrel 75 mg PO DAILY 07/01/21 [History Last Taken Unknown] hydrochlorothiazide 20 mg PO QDAY 07/01/21 [History Last Taken Unknown] Allergy/AdvReac Type Severity Reaction Status Date / Time albuterol Allergy Intermediate GI upset Verified 07/01/21 18:52 cyclobenzaprine Allergy Intermediate mental Verified 07/01/21 18:52 [From Flexeril] status change hydrocodone [From Vicodin] Allergy Intermediate muscle Verified 07/01/21 18:52 twitching oxycodone Allergy Intermediate Vomiting Verified 07/01/21 18:52 acetaminophen [From Tylenol] AdvReac Severe Acute Verified 07/01/21 18:52 restless legs isosorbide AdvReac Severe Headaches Verified 07/01/21 18:52 codeine AdvReac Intermediate Nausea & Verified 07/01/21 18:52 Vomiting hydrochlorothiazide AdvReac Mild intolerance Verified 07/01/21 18:52 [From Dyazide] triamterene [From Dyazide] AdvReac Mild intolerance Verified 07/01/21 18:52 erythromycin base AdvReac Nausea Verified 07/01/21 18:52 Family History Mother , Age 76 heart attack Myocardial infarction Heart disease Cardiomyopathy Hypertension Osteoporosis Father , Heart Disease Age 86 Heart disease Parkinson disease CVA (cerebral vascular accident) Hypertension Unknown Thyroid disorder Stomach ulcer Surgical History History of colonoscopy (~08/2020) History of esophagogastroduodenoscopy (EGD) (~08/2020) History of hysterectomy History of thyroidectomy Presence of coronary angioplasty implant and graft (~09/01/15) Social History Smoking Status: Never smoker alcohol intake: current alcohol intake frequency: holidays/special occasions only Alcohol type: wine substance use type: does not use caffeine: Yes Type: coffee Number of servings: 3 what type of physical activity do you participate in: walking frequency: 5-6 times per week seatbelt use: always do you feel safe at home: Yes ROS ROS ED Constitutional Constitutional ED: Denies chills or fever(s) Eyes Eyes: Denies change in vision or diplopia ENT ENT ED: Denies rhinorrhea or sore throat Cardiovascular Cardiovascular: Reports as per HPI and chest pain; Denies palpitations Respiratory/Chest Respiratory/Chest: Denies cough or dyspnea Gastrointestinal Gastrointestinal: Reports as per HPI, abdominal pain, diarrhea, nausea and rectal bleeding; Denies vomiting Genitourinary Genitourinary ED: Denies dysuria or hematuria Musculoskeletal Musculoskeletal: Reports back pain; Denies neck pain Integumentary Denies abscess or rash Neurologic Neurologic: Denies headache(s), paresthesias or weakness Psychiatric Psychiatric: Denies anxiety or suicidal thoughts EXAM Physical Exam Const Vital Signs: 07/01/21 18:30 07/01/21 21:12 Temperature 97.6 F L Temperature Source Temporal Pulse Rate 61 63 Respiratory Rate 18 16 Blood Pressure 122/46 H 107/63 Blood Pressure Mean 71 77 Pulse Ox 100 96 Oxygen Delivery Method Room Air Room Air Positive well nourished and well developed General Appearance ED: well developed and NAD HEENT Reports moist mucous membranes normocephalic and atraumatic Eyes PERRL and EOMs intact bilaterally Neck full ROM and supple Resp normal respiratory effort and clear to auscultation bilaterally Cardio regular rate, regular rhythm and no murmurs GI non-distended Auscultation: normoactive bowel sounds Palpation: soft and tender epigastric and LUQ; Negative for guarding or rebound tenderness present Back/Spine no CVA tenderness General Back: other FROM Extremity normal to inspection General Extremety ED: Negative for edema, pulses abnormal or tenderness General Extremity: Negative for edema or pulses abnormal Neuro oriented x3, CN's II-XII intact bilaterally and no sensory deficits noted Sensorium / Orientation: awake and alert Motor Exam: strength 5/5 throughout Skin no rashes or lesions noted and no wounds MDM MDM MDM Narrative Medical decision making narrative: Patient had no further bleeding episodes in the emergency department and remained clinically and hemodynamically stable. Morphine helped her pain and she was more comfortable. Her hemoglobin is down to 9.9. I was able to get some old records from [facility] when she was there and April for her stents to the proximal LAD and the second diagonal, for which she is on clopidogrel right now. Her hemoglobin was over 13 then. This is concerning in addition to the fact that given the fact that she just had drug- eluting stents placed, we're unable to discontinue her clopidogrel, so for these reasons we will admit her to the hospital for further care and evaluation. Lab Data Attestation: I reviewed the patient's lab results. Labs: Laboratory Results - last 24 hr 07/01/21 07/01/21 07/01/21 19:05 19:05 20:00 WBC 3.8 L RBC 3.23 L Hgb 9.9 L Hct 29.2 L MCV 90.4 MCH 30.7 MCHC 33.9 RDW Std Deviation 40.3 RDW Coeff of Jase 12.1 Plt Count 250 MPV 8.5 Immature Gran % (Auto) 0.300 Neut % (Auto) 50.4 Lymph % (Auto) 34.8 Routt % (Auto) 9.0 Eos % (Auto) 5.0 Baso % (Auto) 0.5 Absolute Neuts (auto) 1.9 L Absolute Lymphs (auto) 1.32 Nucleated RBC % 0 Sodium 140 Potassium 4.5 Chloride 105 Carbon Dioxide 30.0 Anion Gap 5 BUN 33 H Creatinine 1.11 H Estim Creat Clear Calc 34.58 Est GFR (MDRD) Af Amer 61 Est GFR (MDRD) Non-Af 51 L BUN/Creatinine Ratio 29.7 H Glucose 93 Calcium 8.7 Total Bilirubin 0.20 AST 23 ALT 21 Alkaline Phosphatase 80 Troponin I High Sens 6 Total Protein 6.5 Albumin 3.2 Globulin 3.3 Albumin/Globulin Ratio 1.0 Lipase 122 Urine Color Yellow Urine Clarity Clear Urine pH 6.0 Ur Specific Od[place] 1.015 Urine Protein Negative Urine Glucose (UA) Normal Urine Ketones Negative Urine Occult Blood Negative Urine Nitrite Negative Urine Bilirubin Negative Urine Urobilinogen Normal Ur Leukocyte Esterase Negative Urine RBC 0 SEEN Urine WBC 0 SEEN Ur Squamous Epith Cells 0 SEEN Urine Bacteria 0 SEEN Urine Mucus 0 SEEN Radiography Diagnostic Testing: Clinical Impression(s) from Imaging Studies Abdomen/Pelvis CT 07/01/21 18:53 IMPRESSION: 1. No significant diverticuli in the colon and no focal mucosal thickening or inflammation to suggest diverticulitis. 2. There is some fluid in the colon suggesting diarrhea. There also appears to be some mild mucosal thickening in the colon concerning for colitis. No active GI bleeding is identified. 3. Mild infiltrate or atelectasis posterior lungs. Electronically Signed: Maciel Oates MD at 20:44 EDT Tel , Service support , EKG Initial EKG: Attestation: I personally reviewed and interpreted this EKG as follows: Interpretation: Sinus Rhythm and No Acute Injury Pattern Comments: normal EKG Discharge Plan Triage Chief Complaint: GI Bleed ED Provider: Tod Baptiste Dx/Rx/DC Orders Clinical Impression: Acute lower gastrointestinal bleeding, ABLA (acute blood loss anemia), Colitis Prescriptions: No Action atorvastatin 40 mg tablet 40 mg PO QHS Qty: 90 RF: 3 nitroglycerin 0.4 mg tablet, sublingual 0.4 mg sublingual Q5-15M PRN (Reason: chest pain) Qty: 90 RF: 3 multivitamin 1 EACH tablet 1 ea PO DAILY RF: 0 aspirin 81 MG tablet,chewable 81 mg PO DAILY@0800 RF: 0 trazodone 50 mg tablet 150 mg PO QHS RF: 0 hydrochlorothiazide 25 mg tablet 20 mg PO QDAY RF: 0 clopidogrel 75 mg tablet 75 mg PO DAILY RF: 0 potassium chloride 20 mEq tablet extended release See Rx Instructions .ROUTE .COMPLEX Qty: 90 RF: 3 metoprolol tartrate 25 mg tablet 50 mg PO BID RF: 0 Brilinta 90 mg tablet 90 mg PO BID RF: 0 lisinopril 20 mg tablet 20 mg PO DAILY RF: 0 meloxicam 7.5 mg tablet 15 mg PO DAILY RF: 0 levothyroxine 100 mcg tablet 100 mcg PO DAILY RF: 0 Primary Care Provider: Smith Orozco Referrals: Smith Orozco MD [Primary Care Provider] - Disposition Disposition: Acute Care Hospital [facility]
[2021-07-01] MEDS: Morphine 2 MG/ML Syringe IV (19:06)
[2021-07-01] MEDS: Ondansetron 4 MG/2 ML Vial IV (19:06)
[2021-07-01] MEDS: 0.9% Normal Saline 1,000 ML 125 ML IV (19:08)
[2021-07-01 19:28] LABS: Absolute Lymphocyte Count 1.32 X10^3/uL (0.83-4.51); Absolute Neutrophil Count 1.9 X10^3/uL (2.0-7.7); Basophil# 0.02 X10^3/uL; Basophil% 0.5 % (0-1); Eosinophil# 0.19 X10^3/uL; Hematocrit 29.2 % (37-47); Hemoglobin 9.9 g/dL (12.0-15.0); Lymphocyte # 1.32 X10^3/ul (0.83-4.51); Lymphocyte % 34.8 % (19-41); Mean Corp Hgb Conc 33.9 g/dL (32-36); Mean Corpuscular Hgb 30.7 pg (27.0-32.0); Mean Corpuscular Volume 90.4 fL (81-99); Mean Platelet Vol. 8.5 fl (6.2-12.0); Monocyte# 0.34 X10^3/uL; NRBC Flagged by Analyzer 0 % (0-5); Neutrophil # 1.91 X10^3/uL (2.7-7.7); Neutrophil % 50.4 % (47-70); Platelet Count 250 K/mm3 (150-450); RBC Distribution Width CV 12.1 % (11.6-14.6); RBC Distribution Width SD 40.3 fl (35.1-43.9); Red Blood Count 3.23 M/mm3 (4.2-5.4); White Blood Count 3.8 K/mm3 (4.4-11.0)
[2021-07-01 19:43] LABS: AST(SGOT) 23 U/L (15-37); Alanine Aminotransfer ALT/SGPT 21 U/L (13-56); Albumin, Serum 3.2 g/dL (3.2-5.0); Alkaline Phosphatase 80 U/L (45-117); Anion Gap 5 (5-15); BUN 33 mg/dL (7-18); BUN/Creat Ratio 29.7 RATIO (10-20); Calcium,Total 8.7 mg/dL (8.5-10.1); Chloride 105 mmol/L (98-107); Creatinine, Serum 1.11 mg/dL (0.55-1.02); EST Glomerular Filtration Rate 51 mL/min (>60); Est Glom Filt Rate - Afr Amer 61 mL/min (>60); Estimated Creatinine Clearance 34.58 ml/min; Globulin 3.3 g/dL (2.2-4.2); Glucose 93 mg/dL (74-106); Lipase 122 U/L (73-393); Potassium 4.5 mmol/L (3.5-5.1); Protein, Total 6.5 g/dL (6.4-8.2); Sodium Level 140 mmol/L (136-145); Troponin-I HS 6 pg/mL (3.0-54.0)
[2021-07-01 20:07] LABS: Bacteria 0 SEEN /hpf (None Seen); Mucous, Urine 0 SEEN /hpf (<or=2+); Red Blood Cells-Urine 0 SEEN /hpf (0-5); Squamous Epithelial Cells - UA 0 SEEN /hpf (5-10); White Blood Cells 0 SEEN /hpf (0-5)
[2021-07-01 20:36] LABS: Color, Urine Yellow (Yellow); Glucose, Dipstick Normal (Normal); Ketone-Dipstick Negative (Negative); Leukocyte Esterase-Dipstick Negative /ul (Negative); Nitrite-Dipstick Negative (Negative); Occult Blood-Urine Negative /ul (Negative); Protein-Dipstick Negative (Negative); Specific Gravity, Urine 1.015 (1.002-1.030); Urine Bilirubin Dipstick Negative (Negative); Urine Clarity Clear (Clear); Urine Urobilinogen Normal (Normal)
[2021-07-01 21:12] VITALS: BP 107/63; PULSE 63; RESP 16; O2SAT 96
[2021-07-01 22:20] VITALS: BP 113/60; PULSE 67; RESP 16; TEMP 36.9; O2SAT 97
--- NOTE | 2021-07-01 22:33 | HP.PCM.HOS_ITS ---
HPI - General General Date of Admission: 07/01/21 Date of Service: 07/01/21 Chief Complaint: Abd pain, bloody and black stools, diarrhea, chest pain. HPI Narrative The patient is a 75 y/o F w/ PMHx: CAD s/p PCI recently 04/19/21 and prior 2014, Carotid disease, Valvular heart disease, HTN, HLD, Hypothyroidism, GERD w/ Hx PUD, Hx TIA, Hx Diverticular bleed prior recently who presents to the [facility] ED on 07/01/21 with history of recent episode the month prior of diverticulitis with treatment and admission at [facility] however patient has had worsening upper abdominal discomfort that is been persistent and unabating specifically more so in the epigastric region with radiation toward the mid back, moderate 5/10 in nature with nausea with no emesis associated however she is been having diarrhea with reported hematochezia prompting reevaluation. She also reports that 2 days prior the liquid was red tinged but her soft stools were black in appearance. She notes intermittent ongoing midsternal chest discomfort, states it feels as though she is having muscle spasms/strain without diaphoresis or dyspnea since her intervention 04/2021 and on day of presentation had similar episode lasting approximately 40 minutes without any radiation which is since resolved. Patient was also evaluated for CVA at [place] with negative MRI brain of note. Work-up in the ED included T 97.6, heart rate 61, BP 122/46, respiratory rate 18, on her percent on room air, CBC with WC 3.8, hemoglobin 9.9 (04/17/21 hemoglobin level 13.3), platelet 250 with neutropenia, CMP with BUN/creatinine 33/1.11, unremarkable hepatic profile, high-sensitivity cardiac troponin 6, lipase 122, CT abdomen and pelvis with no significant diverticuli in the colon and no focal mucosal thickening or inflammation to suggest diverticulitis, some fluid in the colon suggestive of diarrhea as well as some mild mucosal thickening in the colon concerning for colitis with no active GI bleed identified, mild infiltrative or atelectasis posterior lungs. In the ED patient ministered IV fluids, morphine and Zofran. [facility], [facility] Medical History Abdominal bloating Angina pectoris Aortic insufficiency Aortic valve disease Atherosclerotic heart disease of [place] coronary artery without angina pectoris Bilateral carotid artery stenosis Carotid artery bruit Carotid stenosis, right Cataracts, bilateral Chest pain Chronic headache Constipation Diarrhea Diastolic dysfunction Dysphagia Essential hypertension Family history of premature coronary heart disease GERD (gastroesophageal reflux disease) GERD (gastroesophageal reflux disease) GI problem Hearing problem HLD (hyperlipidemia) Hypothyroidism Insomnia residential use of drug Nonspecific abnormal serum enzyme levels Osteoarthritis Palpitations Peptic ulcer disease Presence of stent in coronary artery (~04/19/21) Seasonal allergies Thyroid dysfunction TIA (transient ischemic attack) Ventricular hypertrophy Vision problem Home Medications multivitamin 1 ea PO DAILY 08/19/15 [History Last Taken 10/08/15] aspirin 81 mg PO DAILY@0800 tab.chew 08/21/15 [Rx Last Taken 10/07/15] potassium chloride 20 mEq tablet,extended release See Rx Instructions .ROUTE .COMPLEX #90 tablet 12/07/20 [Rx Last Taken Unknown] levothyroxine 100 mcg tablet 100 mcg PO DAILY 04/28/21 [History Last Taken Unknown] lisinopril 20 mg tablet 20 mg PO DAILY 04/28/21 [History Last Taken Unknown] meloxicam 7.5 mg tablet 15 mg PO DAILY 04/28/21 [History Last Taken Unknown] metoprolol tartrate 25 mg tablet 50 mg PO BID 04/28/21 [History Last Taken Unknown] ticagrelor 90 mg tablet 90 mg PO BID 04/28/21 [History Last Taken Unknown] atorvastatin 40 mg tablet 40 mg PO QHS #90 tab 05/26/21 [Rx Last Taken Unknown] nitroglycerin 0.4 mg sublingual tablet 0.4 mg SUBLINGUAL Q5-15M PRN #90 tab 05/26/21 [Rx Last Taken Unknown] trazodone 50 mg tablet 150 mg PO QHS tab 05/26/21 [History Last Taken Unknown] clopidogrel 75 mg PO DAILY 07/01/21 [History Last Taken Unknown] hydrochlorothiazide 20 mg PO QDAY 07/01/21 [History Last Taken Unknown] Allergy/AdvReac Type Severity Reaction Status Date / Time albuterol Allergy Intermediate GI upset Verified 07/01/21 18:52 cyclobenzaprine Allergy Intermediate mental Verified 07/01/21 18:52 [From Flexeril] status change hydrocodone [From Vicodin] Allergy Intermediate muscle Verified 07/01/21 18:52 twitching oxycodone Allergy Intermediate Vomiting Verified 07/01/21 18:52 acetaminophen [From Tylenol] AdvReac Severe Acute Verified 07/01/21 18:52 restless legs isosorbide AdvReac Severe Headaches Verified 07/01/21 18:52 codeine AdvReac Intermediate Nausea & Verified 07/01/21 18:52 Vomiting hydrochlorothiazide AdvReac Mild intolerance Verified 07/01/21 18:52 [From Dyazide] triamterene [From Dyazide] AdvReac Mild intolerance Verified 07/01/21 18:52 erythromycin base AdvReac Nausea Verified 07/01/21 18:52 Family History Mother , Age 76 heart attack Myocardial infarction Heart disease Cardiomyopathy Hypertension Osteoporosis Father , Heart Disease Age 86 Heart disease Parkinson disease CVA (cerebral vascular accident) Hypertension Unknown Thyroid disorder Stomach ulcer Surgical History History of colonoscopy (~08/2020) History of esophagogastroduodenoscopy (EGD) (~08/2020) History of hysterectomy History of thyroidectomy Presence of coronary angioplasty implant and graft (~09/01/15) Social History (Updated 07/01/21 @ 23:[address] Danielle Cabrera MD) household members: spouse Smoking Status: Never smoker alcohol intake: current alcohol intake frequency: holidays/special occasions only Alcohol type: wine substance use type: does not use caffeine: Yes Type: coffee Number of servings: 3 what type of physical activity do you participate in: walking frequency: 5-6 times per week seatbelt use: always do you feel safe at home: Yes ROS ROS Narrative Admission Review of Systems: CONSTITUTIONAL: No weight loss, fever, chills, + weakness or fatigue. HEENT: Eyes: No visual loss, blurred vision, double vision or yellow sclerae. Ears, Nose, Throat: No hearing loss, sneezing, congestion, runny nose or sore throat. SKIN: No rash or itching, lesions, wounds. CARDIOVASCULAR: + chest pain, chest pressure or chest discomfort, No palpitations, edema, orthopnea, syncopal events. RESPIRATORY: No shortness of breath, cough or sputum, wheezing, hemoptysis. GASTROINTESTINAL: + anorexia, nausea, vomiting, diarrhea, abdominal pain, melena, BRBPR. GENITOURINARY: No dysuria, frequency, urgency or retention. NEUROLOGICAL: No headache, dizziness, syncope, paralysis, ataxia, numbness or tingling in the extremities, focal weakness, change in bowel or bladder control, seizure. MUSCULOSKELETAL: + muscle, back pain, joint pain or stiffness. HEMATOLOGIC: + anemia, bleeding or bruising. LYMPHATICS: No enlarged nodes. No history of splenectomy. PSYCHIATRIC: No history of depression or anxiety. ENDOCRINOLOGIC: No reports of sweating, cold or heat intolerance. No polyuria or polydipsia. ALLERGIES: No history of asthma, hives, eczema or rhinitis. Vital Signs Vital Signs Vital Signs: 07/01/21 18:30 07/01/21 21:12 07/01/21 22:20 Temperature 97.6 F L 98.5 F Temperature Source Temporal Temporal Pulse Rate 61 63 67 Respiratory Rate 18 16 16 Blood Pressure 122/46 H 107/63 113/60 Blood Pressure Mean 71 77 77 Pulse Ox 100 96 97 Oxygen Delivery Method Room Air Room Air Room Air Weight Weight: 112 lb Body Mass Index (BMI) 19.8 Physical Exam Narrative Physical Examination: General: Awake, alert, oriented x 3 and cooperative, seated upright in the ED bed in no apparent distress. Skin: Normal color, normal turgor, no icterus, no cyanosis. HEENT: AT/NC, EOMI, PERRLA, mildly dry MM, no carotid bruits or JVD noted. Lungs: CTA bilaterally, moderate effort, no rales, ronchi or wheezing. Heart: Regular rate and rhythm; no gallop, rub audible. Abdomen: Soft, mild generalized discomfort to palpation, no rebound or guarding, no obvious distention, hyperactive bowel sounds, no obvious HSM Extremities: No cyanosis, clubbing, or edema. Neurological: Patient awake, alert, oriented as noted, cognitive function intact; pupils equally reactive to light and accommodation, cranial nerves II- XII grossly normal, moving all 4 extremities, no focal deficits, strength mildly to moderately global decrease secondary to acute presentation complaints Psychiatric: Affect appears fatigued, no acute evidence of depressive or anxiety feelings. Results Lab / Micro Data Result Diagrams: 07/01/21 19:05 07/01/21 19:05 Labs: Laboratory Results - last 24 hr 07/01/21 19:05: WBC 3.8 L, RBC 3.23 L, Hgb 9.9 L, Hct 29.2 L, MCV 90.4, MCH 30.7, MCHC 33.9, RDW Std Deviation 40.3, RDW Coeff of Jase 12.1, Plt Count 250, MPV 8.5, Immature Gran % (Auto) 0.300, Neut % (Auto) 50.4, Lymph % (Auto) 34.8, [place] % (Auto) 9.0, Eos % (Auto) 5.0, Baso % (Auto) 0.5, Absolute Neuts (auto) 1.9 L, Absolute Lymphs (auto) 1.32, Nucleated RBC % 0 07/01/21 19:05: Sodium 140, Potassium 4.5, Chloride 105, Carbon Dioxide 30.0, Anion Gap 5, BUN 33 H, Creatinine 1.11 H, Estim Creat Clear Calc 34.58, Est GFR (MDRD) Af Amer 61, Est GFR (MDRD) Non-Af 51 L, BUN/Creatinine Ratio 29.7 H, Glucose 93, Calcium 8.7, Total Bilirubin 0.20, AST 23, ALT 21, Alkaline Phosph atase 80, Troponin I High Sens 6, Total Protein 6.5, Albumin 3.2, Globulin 3.3, Albumin/Globulin Ratio 1.0, Lipase 122 07/01/21 20:00: Urine Color Yellow, Urine Clarity Clear, Urine pH 6.0, Ur Specific [place] 1.015, Urine Protein Negative, Urine Glucose (UA) Normal, Urine Ketones Negative, Urine Occult Blood Negative, Urine Nitrite Negative, Urine Bilirubin Negative, Urine Urobilinogen Normal, Ur Leukocyte Esterase Negative, Urine RBC 0 SEEN, Urine WBC 0 SEEN, Ur Squamous Epith Cells 0 SEEN, Urine Bacteria 0 SEEN, Urine Mucus 0 SEEN Radiology Impression Abdomen/Pelvis CT 07/01/21 18:53 IMPRESSION: 1. No significant diverticuli in the colon and no focal mucosal thickening or inflammation to suggest diverticulitis. 2. There is some fluid in the colon suggesting diarrhea. There also appears to be some mild mucosal thickening in the colon concerning for colitis. No active GI bleeding is identified. 3. Mild infiltrate or atelectasis posterior lungs. Electronically Signed: Maciel Oates MD at 20:44 EDT Tel , Service support , Assessment & Plan Assessment/Plan (1) Acute lower gastrointestinal bleeding: (2) Colitis: (3) ABLA (acute blood loss anemia): PLAN: The patient is a 75 y/o F w/ PMHx: CAD s/p PCI recently 04/19/21 and prior 2014, Carotid disease, Valvular heart disease, HTN, HLD, Hypothyroidism, GERD w/ Hx PUD, Hx TIA, Hx Diverticular bleed prior recently who presents to the [facility] ED on 07/01/21 with history of recent episode the month prior of diverticulitis with treatment and admission at [facility] however patient has had worsening upper abdominal discomfort that is been persistent and unabating specifically more so in the epigastric region with radiation toward the mid skylar k, moderate 5/10 in nature with nausea with no emesis associated however she is been having diarrhea with reported hematochezia prompting reevaluation. 1. Acute Colitis (Lower infectious suspicion) with Acute GI Bleed (prior recent diverticular bleed history) w/ associated Acute Blood Loss Anemia: Recent outpatient management with diverticulitis however patient has had no onset of bloody stools and worsening abdominal discomfort, will admit to PCU given #2, maintain on judicious hydration, monitor I's and O's, maintain n.p.o. maintain on bowel rest, cycle H+H, obtain procalcitonin as well as stool cultures/cdiff, but in the interm will initiate Zosyn therapy although lower suspicion for i nfectious etiology, maintain on IV PPI, continue as needed pain regimen as well as antiemetic, plan GI DrElda Friend evaluation. Patient of note prefers no further interactions with GI in [place] as she had been following with Dr. Harley Brewster. Of note, she was recently switched from Brillinta to Plavix given GI upset despite PPI, ongoing outpatient evaluations with GI, had recent scopes prior here in [place] (~ 9 months prior ) w/ evidence of diverticular bleed at that time and she reports recent c-scope in [place] without marked findings at that time. Given timeline of recent PCI we will closely monitor H&H's and continue dual antiplatelet therapy but if any concerns may need to discontinue and have cardiology evaluation as well. 2. CAD w/ Intermittent Chest pain: Patient status post PCI/ISAC x2 mid LAD and Ostial D2 with POBA only 04/19/21;09/01/2015 PCI-BMS @ [facility], recently changed from brillinta to plavix, maintianed on asa and continued outpatient GI evaluation given need for ongoing antiplt therapy given recent intervention. We will cautiously continue antiplatelet therapy as noted given #1, cycle cardiac enzymes and repeat EKG to be cautious although description concerning for musculoskeletal component, will continue statin, metoprolol, lisinopril with hold parameters as needed. 3. Carotid disease: Recent doppler at [place] 04/2021 with BL moderate 50-69% occlusive disease, will cautiously continue antiplatelet therapy as noted given #1, continue statin, hypertensive regimen 4. Valvular Heart Disease: Recent ECHO w/ left ventricle listed as normal with LVEF of 60 to 65% with no regional wall motion abnormalities, the left atrium was moderately enlarged, there was mild aortic valve regurgitation. 5. Hypertension: Continue home regimen including metoprolol, lisinopril, hydrochlorothiazide with hold parameters as needed, PRN hydralazine. 6. Hyperlipidemia: We will continue patient on statin therapy. 7. Hypothyroidism: We will continue patient home levothyroxine regimen. 8. Chronic insomnia: We will continue patient home nightly trazodone although low threshold for alteration especially if related with any underlying anxiety/depression given significant dose. 9. GERD with peptic ulcer disease: Maintain on IV PPI as noted above 10. DVT prophylaxis: SCDs, hold on any chemoprophylaxis given acute presentation as noted. 11. CODE status: Patient LOC is her who is present and living will is currently in place. Discussed CODE status at length including difference between FULL code, DNR-CCA and DNR-CC status. Following discussions about the differences in these status, requested Full Code status. Advanced Care Planning Face to Face Time: 16 minutes. Charges/Coding Visit Charges Inpatient E&M: 44732 Init Hosp L3 Procedures Hospitalists Procedures: 83343 Advncd Care Plan 30 Min
[2021-07-01 23:16] LABS: Magnesium 2.1 mg/dL (1.6-2.6)
[2021-07-01 23:34] VITALS: BMI 20.3
[2021-07-01 23:46] VITALS: BP 124/38; PULSE 66; RESP 16; TEMP 36.5; O2SAT 99
--- NOTE | 2021-07-01 23:48 | PCS.PANDOC ---
PANDEMIC DOCUMENTATION INITIATED: Date: 04/26/2021 Time: 190
[2021-07-02] VITALS (16 sets, daily range): BP systolic 88–153; BP diastolic 36–65; PULSE 60–92; RESP 12–18; TEMP 36–37.1; O2SAT 95–100
[2021-07-02] MEDS: 0.9% Normal Saline 1,000 ML 100 ML IV ×3 (00:48→22:14)
[2021-07-02 01:08] LABS: Hemoglobin 9.1 g/dL (12.0-15.0)
[2021-07-02 01:24] LABS: Troponin-I HS 9 pg/mL (3.0-54.0)
[2021-07-02 01:55] LABS: Procalcitonin < 0.01 ng/mL (0.00-0.09)
[2021-07-02 03:50] LABS: Hematocrit 25.3 % (37-47); Hemoglobin 8.5 g/dL (12.0-15.0)
[2021-07-02] MEDS: Levothyroxine 100 MCG Tablet PO (05:45)
--- NOTE | 2021-07-02 05:55 | EKG12_ITS ---
Test Reason : AM Blood Pressure : / mmHG Vent. Rate : 060 BPM Atrial Rate : 060 BPM P-R Int : 218 ms QRS Dur : 078 ms QT Int : 436 ms P-R-T Axes : 062 027 028 degrees QTc Int : 436 ms Sinus rhythm with 1st degree A-V block Otherwise normal ECG Confirmed by TIMMY TORRES, ALLI ([id number]), legal editor MENDOZA ACOSTA ([id number]) on 07/07/2021 9:32:45 AM Referred By: JERRI Confirmed By:ALLI WARNER MD
[2021-07-02 06:42] LABS: Absolute Lymphocyte Count 1.08 X10^3/uL (0.83-4.51); Absolute Neutrophil Count 1.6 X10^3/uL (2.0-7.7); Basophil# 0.02 X10^3/uL; Basophil% 0.6 % (0-1); Eosinophil# 0.18 X10^3/uL; Eosinophils% 5.5 % (0-5); Hematocrit 25.1 % (37-47); Hemoglobin 8.5 g/dL (12.0-15.0); Lymphocyte # 1.08 X10^3/ul (0.83-4.51); Lymphocyte % 32.8 % (19-41); Mean Corp Hgb Conc 33.9 g/dL (32-36); Mean Corpuscular Volume 91.6 fL (81-99); Mean Platelet Vol. 8.6 fl (6.2-12.0); Monocyte% 12.2 % (0-10); NRBC Flagged by Analyzer 0 % (0-5); Neutrophil # 1.61 X10^3/uL (2.7-7.7); Neutrophil % 48.9 % (47-70); Platelet Count 200 K/mm3 (150-450); RBC Distribution Width CV 12.3 % (11.6-14.6); RBC Distribution Width SD 40.7 fl (35.1-43.9); Red Blood Count 2.74 M/mm3 (4.2-5.4); White Blood Count 3.3 K/mm3 (4.4-11.0)
[2021-07-02 07:13] LABS: ALB/GLOB Ratio 0.9 RATIO (0.9-2.4); AST(SGOT) 19 U/L (15-37); Alanine Aminotransfer ALT/SGPT 19 U/L (13-56); Albumin, Serum 2.4 g/dL (3.2-5.0); Alkaline Phosphatase 56 U/L (45-117); Anion Gap 3 (5-15); BUN 22 mg/dL (7-18); BUN/Creat Ratio 24.2 RATIO (10-20); Calcium,Total 7.8 mg/dL (8.5-10.1); Chloride 109 mmol/L (98-107); Creatinine, Serum 0.91 mg/dL (0.55-1.02); EST Glomerular Filtration Rate 64 mL/min (>60); Est Glom Filt Rate - Afr Amer 77 mL/min (>60); Estimated Creatinine Clearance 43.51 ml/min; Globulin 2.6 g/dL (2.2-4.2); Glucose 94 mg/dL (74-106); Potassium 4.4 mmol/L (3.5-5.1); Sodium Level 141 mmol/L (136-145)
[2021-07-02] MEDS: Aspirin 81 MG TAB.CHEW PO (09:54)
[2021-07-02] MEDS: Clopidogrel Bisulfate 75 MG Tablet PO (09:54)
--- NOTE | 2021-07-02 13:03 | OP.EGD_ITS ---
Patient Name: Bharti Aaron Procedure Date: 07/02/2021 12:24 PM Date of : 1945 Age: 75 Procedure: Upper GI endoscopy Indications: Acute post hemorrhagic anemia Providers: Ron Garcia DO Medicines: See the Anesthesia note for documentation of the administered medications Patient Profile: This is a 75 year old female. Refer to note in patient chart for documentation of history and physical. Patient has symptoms of acute abdominal cramping and acute abdominal pain. Complications: No immediate complications. Procedure: Pre-Anesthesia Assessment: - Prior to the procedure, a History and Physical was performed, and patient medications and allergies were reviewed. The risks and benefits of the procedure and the sedation options and risks were discussed with the patient. All questions were answered and informed consent was obtained. Patient identification and proposed procedure were verified by the physician in the pre-procedure area. Mental Status Examination: alert and oriented. Airway Examination: normal oropharyngeal airway and neck mobility. Respiratory Examination: clear to auscultation. CV Examination: normal. Prophylactic Antibiotics: The patient does not require prophylactic antibiotics. Prior Anticoagulants: The patient has taken no previous anticoagulant or antiplatelet agents. ASA Grade Assessment: II - A patient with mild systemic disease. After reviewing the risks and benefits, the patient was deemed in satisfactory condition to undergo the procedure. The anesthesia plan was to use moderate sedation / analgesia (conscious sedation). Immediately prior to administration of medications, the patient was re-assessed for adequacy to receive sedatives. The heart rate, respiratory rate, oxygen saturations, blood pressure, adequacy of pulmonary ventilation, and response to care were monitored throughout the procedure. The physical status of the patient was re-assessed after the procedure. After obtaining informed consent, the endoscope was passed under direct vision. Throughout the procedure, the patient's blood pressure, pulse, and oxygen saturations were monitored continuously. The gastroscope was introduced through the mouth, and advanced to the second part of duodenum. The upper GI endoscopy was accomplished without difficulty. The patient tolerated the procedure well. Moderate Sedation: Moderate (conscious) sedation was administered by the endoscopy nurse and supervised by the endoscopist. The patient's oxygen saturation, heart rate, blood pressure and response to care were monitored. Total physician intraservice time was 15 minutes. Scope In: 12:31:54 PM Scope Out: 12:35:00 PM Total Procedure Duration Time 0 hours 3 minutes 6 seconds Findings: The examined esophagus was normal. Localized minimal inflammation was found on the anterior wall of the gastric body. The second portion of the duodenum was normal. Impression: - Normal esophagus. - Gastritis. - Normal second portion of the duodenum. - No specimens collected. Recommendation: - Return patient to [facility] for [facility] care. - Clear liquid diet today. - Continue present medications. - Repeat upper endoscopy in 1 day for retreatment. Procedure Code(s): --- Professional --- 38674, Esophagogastroduodenoscopy, flexible, transoral; diagnostic, including collection of specimen(s) by brushing or washing, when performed (separate procedure) G0500, Moderate sedation services provided by the same physician or other qualified health patient care specialist performing a gastrointestinal endoscopic service that sedation supports, requiring the presence of an independent trained observer to assist in the monitoring of the patient's level of consciousness and physiological status; initial 15 minutes of intra-service time; patient age 5 years or older (additional time may be reported with 25915, as appropriate) CPT copyright 2017 [employer]. All rights reserved. The codes documented in this report are preliminary and upon wholesale and retail merchant review may be revised to meet current compliance requirements. Ron Garcia DO 07/02/2021 1:02:25 PM This report has been signed electronically. Number of Addenda: 1 Note Initiated On: 07/02/2021 12:24 PM Addendum Number: 1 Addendum Date: 05/12/2022 4:43:12 PM MAC was used instead of moderate sedation for this patient. Ron Garcia DO 05/12/2022 4:43:16 PM This report has been signed electronically.
--- NOTE | 2021-07-02 13:03 | OP.CCLET_ITS ---
05/12/2022 Smith Orozco [address] [place] [address] Re : Upper GI endoscopy procedure for Bharti Agnieszka Dear Dr. Orozco This procedure was performed on Friday, July 02, 2021. My impressions and recommendations are as follows: Impressions : - Normal esophagus. - Gastritis. - Normal second portion of the duodenum. - No specimens collected. Recommendations : - Return patient to [facility] for ongoing care. - Clear liquid diet today. - Continue present medications. - Repeat upper endoscopy in 1 day for retreatment. My findings are described in the full procedure note, which is enclosed. If I can be of further assistance, please feel free to contact me at . Sincerely, Ron Garcia, 07/02/2021 1:02:25 PM This report has been signed electronically.
--- NOTE | 2021-07-02 13:12 | OP.FLEXSIG_ITS ---
Patient Name: Bharti Aaron Procedure Date: 07/02/2021 12:38 PM Date of : 1945 Age: 75 Procedure: Flexible Sigmoidoscopy Indications: Hematochezia Providers: Ron Garcia DO Medicines: Propofol per Anesthesia, None Patient Profile: This is a 75 year old female. Refer to note in patient chart for documentation of history and physical. Patient has symptoms of acute abdominal cramping and acute abdominal pain. Patient has symptoms of acute abdominal cramping. Complications: No immediate complications. Procedure: Pre-Anesthesia Assessment: - Prior to the procedure, a History and Physical was performed, and patient medications and allergies were reviewed. The risks and benefits of the procedure and the sedation options and risks were discussed with the patient. All questions were answered and informed consent was obtained. Patient identification and proposed procedure were verified by the physician in the pre-procedure area. Mental Status Examination: alert and oriented. Airway Examination: normal oropharyngeal airway and neck mobility. Respiratory Examination: clear to auscultation. CV Examination: normal. Prophylactic Antibiotics: The patient does not require prophylactic antibiotics. Prior Anticoagulants: The patient has taken no previous anticoagulant or antiplatelet agents. ASA Grade Assessment: II - A patient with mild systemic disease. After reviewing the risks and benefits, the patient was deemed in satisfactory condition to undergo the procedure. The anesthesia plan was to use moderate sedation / analgesia (conscious sedation). Immediately prior to administration of medications, the patient was re-assessed for adequacy to receive sedatives. The heart rate, respiratory rate, oxygen saturations, blood pressure, adequacy of pulmonary ventilation, and response to care were monitored throughout the procedure. The physical status of the patient was re-assessed after the procedure. - Prior to the procedure, a History and Physical was performed, and patient medications and allergies were reviewed. The patient is competent. The risks and benefits of the procedure and the sedation options and risks were discussed with the patient. All questions were answered and informed consent was obtained. Patient identification and proposed procedure were verified by the physician in the pre-procedure area. Mental Status Examination: alert and oriented. Airway Examination: normal oropharyngeal airway and neck mobility. Respiratory Examination: clear to auscultation. CV Examination: normal. Prophylactic Antibiotics: The patient does not require prophylactic antibiotics. Prior Anticoagulants: The patient has taken aspirin, last dose was day of procedure. ASA Grade Assessment: II - A patient with mild systemic disease. After reviewing the risks and benefits, the patient was deemed in satisfactory condition to undergo the procedure. The anesthesia plan was to use moderate sedation / analgesia (conscious sedation). Immediately prior to administration of medications, the patient was re-assessed for adequacy to receive sedatives. The heart rate, respiratory rate, oxygen saturations, blood pressure, adequacy of pulmonary ventilation, and response to care were monitored throughout the procedure. The physical status of the patient was re-assessed after the procedure. After obtaining informed consent, the endoscope was passed under direct vision. Throughout the procedure, the patient's blood pressure, pulse, and oxygen saturations were monitored continuously. The Colonoscope was introduced through the anus and advanced to the left transverse colon. The flexible sigmoidoscopy was accomplished without difficulty. The patient tolerated the procedure well. The quality of the bowel preparation was poor. Moderate Sedation: Moderate (conscious) sedation was administered by the endoscopy nurse and supervised by the endoscopist. The patient's oxygen saturation, heart rate, blood pressure and response to care were monitored. Total physician intraservice time was 15 minutes. Scope In: 12:41:19 PM Scope Out: 12:54:37 PM Total Procedure Duration Time 0 hours 13 minutes 18 seconds Findings: There was a lot of red blood mixed with melanotic stool seen throughout the colon. Any exact source of the bleeding was not seen. It could be from an upper GI source. Estimated blood loss: none. Impression: - Preparation of the colon was poor. - No specimens collected. - Blood in the rectum, in the sigmoid colon, in the descending colon, at the splenic flexure, in the transverse colon, at the hepatic flexure and in the ascending colon. [All Maneuvers]. Recommendation: - Use fiber, for example Citrucel, Fibercon, Konsyl or Metamucil. Procedure Code(s): --- Professional --- 16177, Sigmoidoscopy, flexible; diagnostic, including collection of specimen(s) by brushing or washing, when performed (separate procedure) G0500, Moderate sedation services provided by the same physician or other qualified health critical care nurse performing a gastrointestinal endoscopic service that sedation supports, requiring the presence of an independent trained observer to assist in the monitoring of the patient's level of consciousness and physiological status; initial 15 minutes of intra-service time; patient age 5 years or older (additional time may be reported with 40703, as appropriate) CPT copyright 2017 [employer]. All rights reserved. The codes documented in this report are preliminary and upon certified medical records coder review may be revised to meet current compliance requirements. Ron Garcia DO 07/02/2021 1:12:09 PM This report has been signed electronically. Number of Addenda: 1 Note Initiated On: 07/02/2021 12:38 PM Addendum Number: 1 Addendum Date: 05/12/2022 4:43:26 PM MAC was used instead of moderate sedation for this patient. Ron Garcia DO 05/12/2022 4:43:33 PM This report has been signed electronically.
--- NOTE | 2021-07-02 13:12 | OP.CCLET_ITS ---
05/12/2022 Smith Orozco [address] [place] [address] Re : Flexible Sigmoidoscopy procedure for Bharti Ivalee Dear Dr. Orozco This procedure was performed on Friday, July 02, 2021. My impressions and recommendations are as follows: Impressions : - Preparation of the colon was poor. - No specimens collected. - Blood in the rectum, in the sigmoid colon, in the descending colon, at the splenic flexure, in the transverse colon, at the hepatic flexure and in the ascending colon. [All Maneuvers]. Recommendations : - Use fiber, for example Citrucel, Fibercon, Konsyl or Metamucil. My findings are described in the full procedure note, which is enclosed. If I can be of further assistance, please feel free to contact me at . Sincerely, Ron Garcia, 07/02/2021 1:12:09 PM This report has been signed electronically.
--- NOTE | 2021-07-02 14:06 | CASEMGMT ---
Pt is out of dept. CM to complete CM assessment when pt returns. [place] RN CM
[2021-07-02] MEDS: Bisacodyl 5 MG Tablet 20 MG PO (14:25)
--- NOTE | 2021-07-02 15:05 | CASEMGMT ---
CARIE RAINES assessment: Face to Face with patient for initial transition planning/care coordination assessment. RN OLU introduced self and role at [facility] [place], pt voices understanding and consents to assessment. Pt is lying in bed in no distress on room air. Pt is A/Ox4 and answers all questions appropriately. Care providers, pharmacy, and demographics verified. Presentation: Pt recently dx'd w/ diverticulitis, pt c/o bloody stools, abd pain Admitting dx: Colitis, GI bleed, Acute blood loss anemia, CP PCP: [facility] Specialists: [place], cardio Preferred [facility]acy: [facility] Insurance: [employer]/MCR A/B Prescription Benefit: [employer] Living Will/HPOA: Pt states has LW/HPOA and is aware that they are not on file at [facility] [place] and states they have not been notified. Pt states her , Frank Aaron, is HPOA. LNOK: Frank Aaron, Living Arrangements: Pt states lives with in 1 story home with 2 railed steps in and states no concerns at home. Pt is independent with ADL's. Transportation: Pt states drives self and states no transportation concerns. DME/HHC: Pt states no current DME or need for any DME. Pt states no hx of HHC or SNF. Pt states no concerns with going home at time of discharge. 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 Pt states does not smoke cigarettes or drink ETOH. Pt voices no further questions/concerns/needs. CM to follow for any further discharge planning/needs. Advised pt to ask for CM if any further questions/concerns/needs arise, voices understanding. Pt Goal: Home Plan: Home [place] CARIE RAINES
--- NOTE | 2021-07-02 15:13 | PCM.PN.HOSP ---
Subjective Subjective Seen after her EGD and colonoscopy. Colonoscopy did have a lot of blood but it was poor prep therefore will need to be repeated in the morning. She is having some abdominal cramping secondary to air from the colonoscopy. Objective Data Objective Data Vital Signs: Vital Signs Temp Pulse Resp BP Pulse Ox 97.9 F 69 18 136/45 H 98 07/02/21 14:27 07/02/21 14:27 07/02/21 14:27 07/02/21 14:27 07/02/21 14:27 Oxygen Delivery Method Room Air Weight: 118 lb 6.212 oz Body Mass Index (BMI) 20.3 Intake & Output: Intake and Output for Last 24 Hours 07/01/21 07/02/21 07/03/21 03:59 03:59 03:59 Intake Total 848.75 / 848.75 210 / 210 Balance 848.75 / 848.75 210 / 210 Lab / Micro Data Result Diagrams: 07/02/21 05:40 07/02/21 05:40 Labs: Laboratory Results - last 24 hr 07/01/21 19:05: WBC 3.8 L, RBC 3.23 L, Hgb 9.9 L, Hct 29.2 L, MCV 90.4, MCH 30.7, MCHC 33.9, RDW Std Deviation 40.3, RDW Coeff of Jase 12.1, Plt Count 250, MPV 8.5, Immature Gran % (Auto) 0.300, Neut % (Auto) 50.4, Lymph % (Auto) 34.8, [place] % (Auto) 9.0, Eos % (Auto) 5.0, Baso % (Auto) 0.5, Absolute Neuts (auto) 1.9 L, Absolute Lymphs (auto) 1.32, Nucleated RBC % 0 07/01/21 19:05: Sodium 140, Potassium 4.5, Chloride 105, Carbon Dioxide 30.0, Anion Gap 5, BUN 33 H, Creatinine 1.11 H, Estim Creat Clear Calc 34.58, Est GFR (MDRD) Af Amer 61, Est GFR (MDRD) Non-Af 51 L, BUN/Creatinine Ratio 29.7 H, Glucose 93, Calcium 8.7, Total Bilirubin 0.20, AST 23, ALT 21, Alkaline Phosphatase 80, Troponin I High Sens 6, Total Protein 6.5, Albumin 3.2, Globulin 3.3, Albumin/Globulin Ratio 1.0, Lipase 122 07/01/21 19:05: Magnesium 2.1 07/01/21 19:05: Procalcitonin < 0.01 07/01/21 20:00: Urine Color Yellow, Urine Clarity Clear, Urine pH 6.0, Ur Specific [place] 1.015, Urine Protein Negative, Urine Glucose (UA) Normal, Urine Ketones Negative, Urine Occult Blood Negative, Urine Nitrite Negative, Urine Bilirubin Negative, Urine Urobilinogen Normal, Ur Leukocyte Esterase Negative, Urine RBC 0 SEEN, Urine WBC 0 SEEN, Ur Squamous Epith Cells 0 SEEN, Urine Bacteria 0 SEEN, Urine Mucus 0 SEEN 07/02/21 00:55: Hgb 9.1 L, Hct 27.0 L 07/02/21 00:55: Troponin I High Sens 9 07/02/21 03:40: Hgb 8.5 L, Hct 25.3 L 07/02/21 05:40: WBC 3.3 L, RBC 2.74 L, Hgb 8.5 L, Hct 25.1 L, MCV 91.6, MCH 31.0, MCHC 33.9, RDW Std Deviation 40.7, RDW Coeff of Jase 12.3, Plt Count 200, MPV 8.6, Immature Gran % (Auto) 0.000, Neut % (Auto) 48.9, Lymph % (Auto) 32.8, [place] % (Auto) 12.2 H, Eos % (Auto) 5.5 H, Baso % (Auto) 0.6, Absolute Neuts (auto) 1.6 L, Absolute Lymphs (auto) 1.08, Nucleated RBC % 0 07/02/21 05:40: Sodium 141, Potassium 4.4, Chloride 109 H, Carbon Dioxide 29.0, Anion Gap 3 L, BUN 22 H, Creatinine 0.91, Estim Creat Clear Calc 43.51, Est GFR (MDRD) Af Amer 77, Est GFR (MDRD) Non-Af 64, BUN/Creatinine Ratio 24.2 H, Glucose 94, Calcium 7.8 L, Total Bilirubin 0.30, AST 19, ALT 19, Alkaline Phosphatase 56, Total Protein 5.0 L, Albumin 2.4 L, Globulin 2.6, Albumin/Globulin Ratio 0.9 Radiography Diagnostic Testing: Radiology Impression Abdomen/Pelvis CT 07/01/21 18:53 IMPRESSION: 1. No significant diverticuli in the colon and no focal mucosal thickening or inflammation to suggest diverticulitis. 2. There is some fluid in the colon suggesting diarrhea. There also appears to be some mild mucosal thickening in the colon concerning for colitis. No active GI bleeding is identified. 3. Mild infiltrate or atelectasis posterior lungs. Electronically Signed: Maciel Oates MD at 20:44 EDT Tel , Service support , Physical Exam Const alert, oriented x3 and no apparent distress General Appearance: cooperative HEENT normocephalic and moist oral mucous membranes Eyes PERRL, EOMs intact bilaterally and conjunctivae normal Neck supple and no JVD Resp normal respiratory effort, no retractions, no use of accessory muscles and clear to auscultation bilaterally Auscultation: Negative for crackles, rales, rhonchi or wheezes Cardio regular rate, regular rhythm, S1 normal heart sound, S2 normal heart sound and no murmurs GI soft to palpation, non-tender and non-distended; Negative for hepatosplenomegaly Extremity no clubbing, cyanosis or edema Skin no rashes or lesions noted Neuro no focal motor deficits and no sensory deficits noted Psych affect normal Appearance: appropriate Assessment & Plan Assessment/Plan (1) Acute lower gastrointestinal bleeding: (2) Colitis: (3) ABLA (acute blood loss anemia): PLAN: 1. Acute Colitis (Lower infectious suspicion) with Acute GI Bleed (prior recent diverticular bleed history) w/ associated Acute Blood Loss Anemia: Recent outpatient management with diverticulitis however patient has had no onset of bloody stools and worsening abdominal discomfort, will admit to PCU given #2, maintain on judicious hydration, monitor I's and O's, maintain n.p.o. maintain on bowel rest, cycle H+H, obtain procalcitonin as well as stool cultures/cdiff, but in the interm will initiate Zosyn therapy although lower suspicion for infectious etiology, maintain on IV PPI, continue as needed pain regimen as well as antiemetic, plan GI DrElda Friend evaluation. -07/02/2021: Repeat colonoscopy in the morning EGD was unremarkable. Unfortunately cannot discontinue aspirin and Plavix secondary to recent stents within the last 6 weeks 2. CAD w/ Intermittent Chest pain/HTN/HLD/valvular heart disease/carotid disease: Patient status post PCI/ISAC x2 mid LAD and Ostial D2 with POBA only 04/19/21;09/01/2015 PCI-BMS @ [facility] LAD, recently changed from brillinta to plavix, maintianed on asa and continued outpatient GI evaluation given need for ongoing antiplt therapy given recent intervention. We will cautiously continue antiplatelet therapy as noted given #1, cycle cardiac enzymes and repeat EKG to be cautious although description concerning for musculoskeletal component, will continue statin, metoprolol, lisinopril with hold parameters as needed. -Recent doppler at [place] 04/2021 with BL moderate 50-69% occlusive disease, will cautiously continue antiplatelet therapy as noted given #1, continue statin, hypertensive regimen -Recent ECHO w/ left ventricle listed as normal with LVEF of 60 to 65% with no regional wall motion abnormalities, the left atrium was moderately enlarged, there was mild aortic valve regurgitation. -Continue home regimen including metoprolol, lisinopril, hydrochlorothiazide with hold parameters as needed, PRN hydralazine. -We will continue patient on statin therapy. 3. Hypothyroidism: We will continue patient home levothyroxine regimen. 4. Chronic insomnia: We will continue patient home nightly trazodone although low threshold for alteration especially if related with any underlying anxiety/depression given significant dose. 5. GERD with peptic ulcer disease: Maintain on IV PPI as noted above DVT: SCDs Charges/Coding Visit Charges Inpatient E&M: 73504 Subs Hosp L2
[2021-07-02] MEDS: Electrolyte Solution/Peg's 4000 ML 1000 ML PO (16:16)
[2021-07-02] MEDS: Ondansetron 4 MG/2 ML Vial IV (17:53)
--- NOTE | 2021-07-02 18:15 | RAD_ITS ---
EXAM: XR ABDOMEN, 2 VIEWS : 1945 CLINICAL INDICATION: severe abdominal pain after colonoscopy TECHNIQUE: Frontal view of the abdomen/pelvis with upright view of the abdomen. This report was created using Superfeedr report generation technology. COMPARISON: None. FINDINGS: LOWER THORAX: No acute pathology. INTRAPERITONEAL SPACE: No free air. GASTROINTESTINAL TRACT: Unremarkable. Non-obstructive. No bowel or stomach distention. ORGANS: Unremarkable as visualized. No organomegaly. No abnormal calcifications. BONES/JOINTS: No acute pathology. SOFT TISSUES: No acute pathology. RAD/Abd Decub and/or Erect(Portabl IMPRESSION: Unremarkable abdominal series. at 2127 Reported and signed by: Mo Pinto MD Electronically Signed: Mo Pinto MD at 22:46 EDT Tel , Service support ,
[2021-07-02 18:25] LABS: Hemoglobin 10.1 g/dL (12.0-15.0)
[2021-07-02] MEDS: Menthol/Lanolin/Calamine/Znox 113 GM Tube 1 APPLIC TOPICAL (22:14)
[2021-07-02] MEDS: Metoprolol Tartrate 50 MG Tablet PO (22:15)
[2021-07-02] MEDS: Atorvastatin Calcium 40 MG Tablet PO (22:15)
[2021-07-02] MEDS: traZODone 50 MG Tablet 150 MG PO (22:15)
[2021-07-03] VITALS (9 sets, daily range): BP systolic 84–126; BP diastolic 30–62; PULSE 60–74; RESP 14–18; TEMP 36.3–37.3; O2SAT 96–100
[2021-07-03 06:49] LABS: Absolute Lymphocyte Count 0.99 X10^3/uL (0.83-4.51); Basophil# 0.02 X10^3/uL; Basophil% 0.4 % (0-1); Eosinophil# 0.09 X10^3/uL; Eosinophils% 1.6 % (0-5); Hemoglobin 8.5 g/dL (12.0-15.0); Lymphocyte # 0.99 X10^3/ul (0.83-4.51); Lymphocyte % 17.8 % (19-41); Mean Corpuscular Hgb 30.6 pg (27.0-32.0); Mean Corpuscular Volume 89.9 fL (81-99); Mean Platelet Vol. 8.3 fl (6.2-12.0); Monocyte# 0.49 X10^3/uL; Monocyte% 8.8 % (0-10); NRBC Flagged by Analyzer 0 % (0-5); Neutrophil # 3.96 X10^3/uL (2.7-7.7); Platelet Count 199 K/mm3 (150-450); RBC Distribution Width CV 11.8 % (11.6-14.6); RBC Distribution Width SD 38.5 fl (35.1-43.9); Red Blood Count 2.78 M/mm3 (4.2-5.4); White Blood Count 5.6 K/mm3 (4.4-11.0)
[2021-07-03 07:14] LABS: Anion Gap 6 (5-15); BUN 7 mg/dL (7-18); Calcium,Total 7.9 mg/dL (8.5-10.1); Chloride 106 mmol/L (98-107); Creatinine, Serum 0.87 mg/dL (0.55-1.02); EST Glomerular Filtration Rate 67 mL/min (>60); Est Glom Filt Rate - Afr Amer 81 mL/min (>60); Estimated Creatinine Clearance 45.51 ml/min; Glucose 97 mg/dL (74-106); Potassium 3.3 mmol/L (3.5-5.1); Sodium Level 142 mmol/L (136-145)
--- NOTE | 2021-07-03 08:20 | OP.COLON_ITS ---
Patient Name: Bharti Aaron Procedure Date: 07/03/2021 6:47 AM Date of : 1945 Age: 75 Procedure: Colonoscopy Indications: Hematochezia Providers: Ron Garcia DO Medicines: See the Anesthesia note for documentation of the administered medications Patient Profile: This is a 75 year old female. Refer to note in patient chart for documentation of history and physical. Last Colonoscopy: 10 years ago. Complications: No immediate complications. Procedure: Pre-Anesthesia Assessment: - Prior to the procedure, a History and Physical was performed, and patient medications and allergies were reviewed. The patient is competent. The risks and benefits of the procedure and the sedation options and risks were discussed with the patient. All questions were answered and informed consent was obtained. Patient identification and proposed procedure were verified by the physician in the pre-procedure area. Mental Status Examination: alert and oriented. Airway Examination: normal oropharyngeal airway and neck mobility. Respiratory Examination: clear to auscultation. CV Examination: normal. Prophylactic Antibiotics: The patient does not require prophylactic antibiotics. Prior Anticoagulants: The patient has taken no previous anticoagulant or antiplatelet agents. ASA Grade Assessment: II - A patient with mild systemic disease. After reviewing the risks and benefits, the patient was deemed in satisfactory condition to undergo the procedure. The anesthesia plan was to use moderate sedation / analgesia (conscious sedation). Immediately prior to administration of medications, the patient was re-assessed for adequacy to receive sedatives. The heart rate, respiratory rate, oxygen saturations, blood pressure, adequacy of pulmonary ventilation, and response to care were monitored throughout the procedure. The physical status of the patient was re-assessed after the procedure. After I obtained informed consent, the scope was passed under direct vision. Throughout the procedure, the patient's blood pressure, pulse, and oxygen saturations were monitored continuously. The Colonoscope was introduced through the anus and advanced to the terminal ileum. The terminal ileum was photographed. Scope In: 7:40:21 AM Scope Withdrawal Time 0 hours 16 minutes 18 seconds Scope Out: 8:05:11 AM Total Procedure Duration Time 0 hours 24 minutes 50 seconds Findings: Hemorrhoids were found on perianal exam. The terminal ileum appeared normal. Scattered small and large-mouthed diverticula were found in the sigmoid colon. Erythema was seen in association with the diverticular opening. A single small angiodysplastic lesion without bleeding was found in the descending colon. Coagulation for hemostasis using heater probe was successful. Estimated blood loss was minimal. Impression: - Hemorrhoids found on perianal exam. - The examined portion of the ileum was normal. - Moderate diverticulosis in the sigmoid colon. Erythema was seen in association with the diverticular opening. - A single non-bleeding colonic angiodysplastic lesion. Treated with a heater probe. - No specimens collected. -Segmental colitis associated with diverticulosis-this is an then inflammatory process that affects the colonic mucosa in segments that are affected by diverticulosis the presentation is similar to acute diverticular bleed and can look-alike ischemic colitis. The treatment is similar to treatment for inflammatory bowel disease. However the treatment recommendation is not for an extended period of time. First-line treatment is antibiotics however because of the increased risk of C. difficile, second line therapy is used more often. Second line therapy would be mesalamine 2-3 times a day for 8 weeks followed by prescription VSL #3 at 2.5 g a day for 2 weeks. Recommendation: - Discharge patient to home. - Advance diet as tolerated. - Continue present medications. - Use Asacol 400 mg PO TID for 8 weeks. - Return to GI office in 2 weeks. - No repeat colonoscopy due to age. Procedure Code(s): --- Professional --- 61071, Colonoscopy, flexible; with control of bleeding, any method CPT copyright 2017 [employer]. All rights reserved. The codes documented in this report are preliminary and upon cigar head piercer review may be revised to meet current compliance requirements. Ron Garcia DO 07/03/2021 8:19:26 AM This report has been signed electronically. Number of Addenda: 1 Note Initiated On: 07/03/2021 6:47 AM Addendum Number: 1 Addendum Date: 05/12/2022 4:45:02 PM MAC was used instead of moderate sedation for this patient. Ron Garcia DO 05/12/2022 4:45:09 PM This report has been signed electronically.
--- NOTE | 2021-07-03 08:20 | OP.CCLET_ITS ---
05/12/2022 Smith Orozco [address] [place] [address] Re : Colonoscopy procedure for Bharti Aaron Dear Dr. Orozco This procedure was performed on Saturday, July 03, 2021. My impressions and recommendations are as follows: Impressions : - Hemorrhoids found on perianal exam. - The examined portion of the ileum was normal. - Moderate diverticulosis in the sigmoid colon. Erythema was seen in association with the diverticular opening. - A single non-bleeding colonic angiodysplastic lesion. Treated with a heater probe. - No specimens collected. -Segmental colitis associated with diverticulosis-this is an then inflammatory process that affects the colonic mucosa in segments that are affected by diverticulosis the presentation is similar to acute diverticular bleed and can look-alike ischemic colitis. The treatment is similar to treatment for inflammatory bowel disease. However the treatment recommendation is not for an extended period of time. First-line treatment is antibiotics however because of the increased risk of C. difficile, second line therapy is used more often. Second line therapy would be mesalamine 2-3 times a day for 8 weeks followed by prescription VSL #3 at 2.5 g a day for 2 weeks. Recommendations : - Discharge patient to home. - Advance diet as tolerated. - Continue present medications. - Use Asacol 400 mg PO TID for 8 weeks. - Return to GI office in 2 weeks. - No repeat colonoscopy due to age. My findings are described in the full procedure note, which is enclosed. If I can be of further assistance, please feel free to contact me at . Sincerely, Ron Garcai, 07/03/2021 8:19:26 AM This report has been signed electronically.
[2021-07-03] MEDS: 0.9% Normal Saline 1,000 ML 100 ML IV (08:22)
[2021-07-03] MEDS: Aspirin 81 MG TAB.CHEW PO (09:12)
[2021-07-03] MEDS: Clopidogrel Bisulfate 75 MG Tablet PO (09:13)
[2021-07-03] MEDS: Levothyroxine 100 MCG Tablet PO (09:21)
[2021-07-03] MEDS: Lisinopril 20 MG Tablet PO (09:22)
[2021-07-03] MEDS: MESALAMINE 400 MG CAPSULE.DR PO (09:22)
[2021-07-03] MEDS: Metoprolol Tartrate 50 MG Tablet PO (09:22)
[2021-07-03] MEDS: hydroCHLOROthiazide 25 MG Tablet PO (09:22)
[2021-07-03] MEDS: Menthol/Lanolin/Calamine/Znox 113 GM Tube 1 APPLIC TOPICAL (09:23)
[2021-07-03 09:53] LABS: Magnesium 1.7 mg/dL (1.6-2.6); Phosphorus 2.4 mg/dL (2.5-4.9)
--- NOTE | 2021-07-03 11:08 | PCM.DC ---
Discharge Instructions Diet Discharge Diet: Low fat / Low cholesterol Activity Discharge Activity: Return to Normal Activity Dressing / Incision Call your doctor if you observe: Fever of 101 or Higher, Shortness of breath, Dizziness, Fainting spells, Swelling in the ankles, Chest pain, Increased palpitations (irregular heartbeat) and - (Bloody bowel movements) Follow Up Care Test Results: Test results from this visit will be discussed in further detail at your follow-up appointment, if applicable. Discharge Plan Admission Admit Date/Time: 07/01/21 22:52 Attending Provider: Vin Santos Primary Care Provider: Smith Orozco Instructions Additional Instructions / Restrictions: Follow-up with your PCP in 3 to 5 days to obtain a CBC to monitor hemoglobin. Discharge Orders/Prescriptions Prescriptions: New mesalamine 400 mg Capsule (With Del Rel Tablets) 400 mg PO BID Qty: 60 RF: 0 Continued nitroglycerin 0.4 mg tablet, sublingual 0.4 mg sublingual Q5-15M PRN (Reason: chest pain) Qty: 90 RF: 3 multivitamin 1 EACH tablet 1 ea PO DAILY RF: 0 trazodone 50 mg tablet 150 mg PO QHS RF: 0 hydrochlorothiazide 25 mg tablet 25 mg PO QDAY RF: 0 clopidogrel 75 mg tablet 75 mg PO DAILY RF: 0 atorvastatin 40 mg tablet 40 mg PO QHS RF: 0 aspirin 81 MG tablet,chewable 81 mg PO DAILY@0800 RF: 0 potassium chloride 20 mEq tablet extended release 20 meq PO DAILY RF: 0 metoprolol tartrate 25 mg tablet 50 mg PO BID RF: 0 lisinopril 20 mg tablet 20 mg PO DAILY RF: 0 meloxicam 7.5 mg tablet 15 mg PO DAILY RF: 0 levothyroxine 100 mcg tablet 100 mcg PO DAILY RF: 0 Discontinued Brilinta 90 mg tablet 90 mg PO BID RF: 0 Referrals / Follow Up: Smith Orozco MD [Primary Care Provider] - Within 1 Week FriendRon DO [STAFF PHYSICIAN] - Within 2 Weeks Disposition Disposition (needs filled in before D/C Order can be placed): Home, Self Care
--- NOTE | 2021-07-03 11:17 | DS.PCM_ITS ---
Providers Date of Admission: 07/01/21 Primary Care Physician: Dr. Smith Orozco MD Consultations 07/01/21 23:42 Consult: Gastroenterology Routine Consulting Provider: Jovan Gastroenter[facility] Reason for Consult: GI bleed, acute blood loss anemia, ? Colitis EMERGENT Consult: No MD Notified: Yes Date Notified: 07/01/21 Time Notified: 22:55 Method of Notification: cortext Reason For Visit: COLITIS,GI BLEED, ACUTE BLOOD LOSS, ANEMIA, CP Diagnosis Discharge Diagnosis (1) Acute lower gastrointestinal bleeding: Status: Acute Code(s): K92.2 - Gastrointestinal hemorrhage, unspecified (2) Colitis: Status: Acute Code(s): K52.9 - Noninfective gastroenteritis and colitis, unspecified (3) ABLA (acute blood loss anemia): Status: Acute Code(s): D62 - Acute posthemorrhagic anemia Medications at Discharge Home Medications multivitamin 1 ea PO DAILY 08/19/15 levothyroxine 100 mcg tablet 100 mcg PO DAILY 04/28/21 lisinopril 20 mg tablet 20 mg PO DAILY 04/28/21 metoprolol tartrate 25 mg tablet 50 mg PO BID 04/28/21 nitroglycerin 0.4 mg sublingual tablet 0.4 mg SUBLINGUAL Q5-15M PRN #90 tab 05/26/21 trazodone 50 mg tablet 150 mg PO QHS tab 05/26/21 aspirin 81 mg PO DAILY@0800 07/01/21 atorvastatin 40 mg PO QHS 07/01/21 clopidogrel 75 mg PO DAILY 07/01/21 hydrochlorothiazide 25 mg PO QDAY 07/01/21 potassium chloride 20 meq PO DAILY 07/01/21 mesalamine 400 mg PO BID #60 ea 07/03/21 pantoprazole [Protonix] 40 mg PO DAILY #30 tab 07/03/21 Hospital Course Operations None Procedures Colonoscopy and EGD Summary of Care Provided Minutes Spent on Discharge: 50 Hospital Course: Per HPI: The patient is a 75 y/o F w/ PMHx: CAD s/p PCI recently 04/19/21 and prior 2014, Carotid disease, Valvular heart disease, HTN, HLD, Hypothyroidism, GERD w/ Hx PUD, Hx TIA, Hx Diverticular bleed prior recently who presents to the [facility] ED on 07/01/21 with history of recent episode the month prior of diverticulitis with treatment and admission at [facility] however patient has had worsening upper abdominal discomfort that is been persistent and unabating specifically more so in the epigastric region with radiation toward the mid back, moderate 5/10 in nature with nausea with no emesis associated however she is been having diarrhea with reported hematochezia prompting reevaluation. She also reports that 2 days prior the liquid was red tinged but her soft stools were black in appearance. She notes intermittent o ngoing midsternal chest discomfort, states it feels as though she is having muscle spasms/strain without diaphoresis or dyspnea since her intervention 04/2021 and on day of presentation had similar episode lasting approximately 40 minutes without any radiation which is since resolved. Patient was also evaluated for CVA at [place] with negative MRI brain of note. Work-up in the ED included T 97.6, heart rate 61, BP 122/46, respiratory rate 18, on her percent on room air, CBC with WC 3.8, hemoglobin 9.9 (04/17/21 hemoglobin level 13.3), platelet 250 with neutropenia, CMP with BUN/creatinine 33/1.11, unremarkable hepatic profile, high-sensitivity cardiac troponin 6, lipase 122, CT abdomen and pelvis with no significant diverticuli in the colon and no focal mucosal thickening or inflammation to suggest diverticulitis, some fluid in the colon suggestive of diarrhea as well as some mild mucosal thickening in the colon concerning for colitis with no active GI bleed identified, mild infiltrative or atelectasis posterior lungs. In the ED patient ministered IV fluids, morphine and Zofran. Hospital Course: 1. Acute Colitis (Lower infectious suspicion) with Acute GI Bleed (prior recent diverticular bleed history) w/ associated Acute Blood Loss Anemia: Recent outpatient management with diverticulitis however patient has had no onset of bloody stools and worsening abdominal discomfort, will admit to PCU given #2, maintain on judicious hydration, monitor I's and O's, maintain n.p.o. maintain on bowel rest, cycle H+H, obtain procalcitonin as well as stool cultures/cdiff, but in the interm will initiate Zosyn therapy although lower suspicion for infectious etiology, maintain on IV PPI, continue as needed pain regimen as well as antiemetic, plan GI Dr. Friend evaluation. -07/02/2021: Repeat colonoscopy in the morning EGD was unremarkable. Unfortunately cannot discontinue aspirin and Plavix secondary to recent stents within the last 6 weeks -07/03/2021: Feels better today, she had a repeat colonoscopy because of poor prep yesterday. She is found to have an AVM as well as intermittent colitis due to diverticulosis. Recommendation is from GI to be on mesalamine 400 mg twice daily for 8 weeks. And they would like to see her in 2 weeks. They are okay with her going home today. She does have acute blood loss anemia from this issue and her hemoglobin has appeared to be stabilized at around 8.5. I do recommend that she follow-up with her PCP in 3 to 5 days to obtain CBC to monitor her hemoglobin. Otherwise she will need to continue her antiplatelets as discussed below secondary to her recent stent placement. I discussed the plan for discharge with her and her today who expressed understanding of the risk and benefits of going home and would like to go home today. 2. CAD w/ Intermittent Chest pain/HTN/HLD/valvular heart disease/carotid disease: Patient status post PCI/ISAC x2 mid LAD and Ostial D2 with POBA only 04/19/21;09/01/2015 PCI-BMS @ [facility] LAD, recently changed from brillinta to plavix, maintianed on asa and continued outpatient GI evaluation given need for ongoing antiplt therapy given recent intervention. We will cautiously continue antiplatelet therapy as noted given #1, cycle cardiac enzymes and repeat EKG to be cautious although description concerning for musculoskeletal component, will continue statin, metoprolol, lisinopril with hold parameters as needed. -Recent doppler at [place] 04/2021 with BL moderate 50-69% occlusive disease, will cautiously continue antiplatelet therapy as noted given #1, continue statin, hypertensive regimen -Recent ECHO w/ left ventricle listed as normal with LVEF of 60 to 65% with no regional wall motion abnormalities, the left atrium was moderately enlarged, there was mild aortic valve regurgitation. -Continue home regimen including metoprolol, lisinopril, hydrochlorothiazide with hold parameters as needed, PRN hydralazine. -We will continue patient on statin therapy. 3. Hypothyroidism: We will continue patient home levothyroxine regimen. 4. Chronic insomnia: We will continue patient home nightly trazodone although low threshold for alteration especially if related with any underlying anxiety/depression given significant dose. 5. GERD with peptic ulcer disease: Maintain on IV PPI as noted above. Will discharge on Protonix daily and recommend that she discontinue meloxicam. Physical Exam Const alert, oriented x3 and no apparent distress General Appearance: cooperative HEENT normocephalic and moist oral mucous membranes Eyes PERRL, EOMs intact bilaterally and conjunctivae normal Neck supple and no JVD Resp normal respiratory effort, no retractions, no use of accessory muscles and clear to auscultation bilaterally Auscultation: Negative for crackles, rales, rhonchi or wheezes Cardio regular rate, regular rhythm, S1 normal heart sound, S2 normal heart sound and no murmurs GI soft to palpation, non-tender and non-distended; Negative for hepatosplenomegaly Extremity no clubbing, cyanosis or edema Skin no rashes or lesions noted Neuro no focal motor deficits and no sensory deficits noted Psych affect normal Appearance: appropriate Weight / BMI Weight Weight: 117 lb 8.102 oz Body Mass Index (BMI) 20.3 ABG / Lab / Microbiology Data Result Diagrams: 07/03/21 06:30 07/03/21 06:30 Laboratory: Laboratory Results - last 24 hr 07/02/21 18:06: Hgb 10.1 L 07/03/21 06:30: WBC 5.6, RBC 2.78 L, Hgb 8.5 L, Hct 25.0 L, MCV 89.9, MCH 30.6, MCHC 34.0, RDW Std Deviation 38.5, RDW Coeff of Jase 11.8, Plt Count 199, MPV 8.3, Immature Gran % (Auto) 0.400, Neut % (Auto) 71.0 H, Lymph % (Auto) 17.8 L, Pleasants % (Auto) 8.8, Eos % (Auto) 1.6, Baso % (Auto) 0.4, Absolute Neuts (auto) 4.0, Absolute Lymphs (auto) 0.99, Nucleated RBC % 0 07/03/21 06:30: Sodium 142, Potassium 3.3 L, Chloride 106, Carbon Dioxide 30.0, Anion Gap 6, BUN 7, Creatinine 0.87, Estim Creat Clear Calc 45.51, Est GFR (MDRD) Af Amer 81, Est GFR (MDRD) Non-Af 67, BUN/Creatinine Ratio 8.0 L, Glucose 97, Calcium 7.9 L 07/03/21 06:30: Phosphorus 2.4 L, Magnesium 1.7 Microbiology: Microbiology 07/02/21 13:40 Stool C. difficile DNA Amplification - Final 07/02/21 13:40 Stool Enteric Bacteriology - Final Radiography Diagnostic Testing: Radiology Impression Abdomen X-Ray 07/02/21 18:15 IMPRESSION: Unremarkable abdominal series. at 2247 Reported and signed by: Mo Pinto MD Electronically Signed: Mo Pinto MD at 22:46 EDT Tel , Service support , D/C Instructions Discharge Diet: Low fat / Low cholesterol Call your doctor if you observe: Fever of 101 or Higher, Shortness of breath, Dizziness, Fainting spells, Swelling in the ankles, Chest pain, Increased palpitations (irregular heartbeat) and - (Bloody bowel movements) Meaningful Use Info Meaningful Use Diagnoses (Choose all that apply): None applicable Discharge Plan Admission Admit Date/Time: 07/01/21 22:52 Attending Provider: Vin Santos Primary Care Provider: Smith Orozco Instructions Additional Instructions / Restrictions: Follow-up with your PCP in 3 to 5 days to obtain a CBC to monitor hemoglobin. Discharge Orders/Prescriptions Prescriptions: New mesalamine 400 mg Capsule (With Del Rel Tablets) 400 mg PO BID Qty: 60 RF: 0 pantoprazole [Protonix] 40 mg tablet,delayed release (DR/EC) 40 mg PO DAILY Qty: 30 RF: 0 Continued nitroglycerin 0.4 mg tablet, sublingual 0.4 mg sublingual Q5-15M PRN (Reason: chest pain) Qty: 90 RF: 3 multivitamin 1 EACH tablet 1 ea PO DAILY RF: 0 trazodone 50 mg tablet 150 mg PO QHS RF: 0 hydrochlorothiazide 25 mg tablet 25 mg PO QDAY RF: 0 clopidogrel 75 mg tablet 75 mg PO DAILY RF: 0 atorvastatin 40 mg tablet 40 mg PO QHS RF: 0 aspirin 81 MG tablet,chewable 81 mg PO DAILY@0800 RF: 0 potassium chloride 20 mEq tablet extended release 20 meq PO DAILY RF: 0 metoprolol tartrate 25 mg tablet 50 mg PO BID RF: 0 lisinopril 20 mg tablet 20 mg PO DAILY RF: 0 levothyroxine 100 mcg tablet 100 mcg PO DAILY RF: 0 Discontinued Brilinta 90 mg tablet 90 mg PO BID RF: 0 meloxicam 7.5 mg tablet 15 mg PO DAILY RF: 0 Referrals / Follow Up: Smith Orozco MD [Primary Care Provider] - Within 1 Week (Called for appointment/ front end ui developer will give you a call.) FriendRon DO [STAFF PHYSICIAN] - Within 2 Weeks (office closed today. Please call to schedule follow up appointment) Disposition Disposition (needs filled in before D/C Order can be placed): Home, Self Care Charges/Coding Visit Charges Inpatient E&M: 50296 Disch Hosp
[2021-07-03] MEDS: Potassium Chloride Oral Tablet 20 MEQ 60 MEQ PO (11:34)
--- NOTE | 2021-07-06 14:57 | CASEMGMT ---
CARIE RAINES Discharge Follow-up Phone Call: SOLOMON: Kike Strata: 3 Call Date: 07/06/21 Discharge Date: 07/03/21 Time of Call: [id number] Duration: 5 min Admitting Diagnosis: colitis, GI Bleed CARIE RAINES completed follow-up phone call after recent hospitalization. Patient states is still having loose stools. Patient states she has been in touch with PCP and updated regarding continued loose stools. Patient states she has follow-up appt with PCP . Patient states she was able to fill prescriptions without any issues. Patient had no further questions or concerns at this time.
== END 2021-07-03 13:15 | disposition home or self-care (01) | DRG 378 ==
LOC: ED 22:18 → PCU 22:48
PROVIDERS: Internal Medicine Gastroenterology; Admitting Provider Family Medicine; Emergency Provider Emergency Medicine; PCP Family Medicine; Visit Provider Family Medicine
PROC: 0DJ08ZZ Inspection of Upper Intestinal Tract, Via Natural or Artificial Opening Endoscopic (ICD-10-PCS; CPT 43235; principal; 2021-07-02 11:55)
PROC: 0DJD8ZZ Inspection of Lower Intestinal Tract, Via Natural or Artificial Opening Endoscopic (ICD-10-PCS; CPT 45378; principal; 2021-07-03 06:55)
DX: K55.21 Angiodysplasia of colon with hemorrhage (principal); D62 Acute posthemorrhagic anemia; K52.9 Noninfective gastroenteritis and colitis, unspecified; K57.31 Diverticulosis of large intestine without perforation or abscess with bleeding; K29.71 Gastritis, unspecified, with bleeding; K21.9 Gastro-esophageal reflux disease without esophagitis; I25.119 Atherosclerotic heart disease of native coronary artery with unspecified angina pectoris; I10 Essential (primary) hypertension; E78.5 Hyperlipidemia, unspecified; E89.0 Postprocedural hypothyroidism; R13.10 Dysphagia, unspecified; M19.90 Unspecified osteoarthritis, unspecified site; F51.04 Psychophysiologic insomnia; Z79.82 Long term (current) use of aspirin; Z79.890 Hormone replacement therapy; Z79.899 Other long term (current) drug therapy; Z87.11 Personal history of peptic ulcer disease; Z86.73 Personal history of transient ischemic attack (TIA), and cerebral infarction without residual deficits; Z95.5 Presence of coronary angioplasty implant and graft
CPT/HCPCS: 36415; 74019; 74177; 80048; 80053; 81001; 83690; 83735; 84100; 84145; 84484; 85014; 85018; 85025; 87493; 87506; 93005; 99251; 99284; J7030; Q9967; A4216; G0463; J2405

== ENCOUNTER → 2021-07-21 12:00 | Outpatient (CLI) | payer BC, MEDICARE, SELFPAY ==
[2021-07-21 14:20] LABS: Absolute Lymphocyte Count 1.28 X10^3/uL (0.83-4.51); Absolute Neutrophil Count 2.5 X10^3/uL (2.0-7.7); Basophil# 0.04 X10^3/uL; Basophil% 0.9 % (0-1); Eosinophil# 0.08 X10^3/uL; Eosinophils% 1.8 % (0-5); Hematocrit 33.7 % (37-47); Lymphocyte # 1.28 X10^3/ul (0.83-4.51); Lymphocyte % 29.2 % (19-41); Mean Corp Hgb Conc 32.6 g/dL (32-36); Mean Corpuscular Hgb 28.6 pg (27.0-32.0); Mean Corpuscular Volume 87.8 fL (81-99); Mean Platelet Vol. 8.4 fl (6.2-12.0); Monocyte# 0.43 X10^3/uL; Monocyte% 9.8 % (0-10); NRBC Flagged by Analyzer 0 % (0-5); Neutrophil # 2.54 X10^3/uL (2.7-7.7); Neutrophil % 57.8 % (47-70); Platelet Count 357 K/mm3 (150-450); RBC Distribution Width CV 11.9 % (11.6-14.6); RBC Distribution Width SD 38.2 fl (35.1-43.9); Red Blood Count 3.84 M/mm3 (4.2-5.4); White Blood Count 4.4 K/mm3 (4.4-11.0)
[2021-07-21 14:37] LABS: Anion Gap 5 (5-15); BUN 17 mg/dL (7-18); Calcium,Total 9.5 mg/dL (8.5-10.1); Chloride 104 mmol/L (98-107); Creatinine, Serum 0.95 mg/dL (0.55-1.02); EST Glomerular Filtration Rate 61 mL/min (>60); Est Glom Filt Rate - Afr Amer 74 mL/min (>60); Glucose 108 mg/dL (74-106); Potassium 3.5 mmol/L (3.5-5.1); Sodium Level 139 mmol/L (136-145)
== END ==
PROVIDERS: Nurse Practitioner Gerontology; PCP Family Medicine; Referring Provider Family Medicine; Visit Provider Family Medicine
DX: R00.2 Palpitations (principal)
CPT/HCPCS: 36415; 80048; 85025

== ENCOUNTER → 2021-07-27 12:24 | Outpatient (CLI) | payer BC, MEDICARE, SELFPAY ==
[2021-07-27 13:03] LABS: Absolute Neutrophil Count 3.2 X10^3/uL (2.0-7.7); Basophil# 0.03 X10^3/uL; Basophil% 0.6 % (0-1); Eosinophil# 0.09 X10^3/uL; Eosinophils% 1.8 % (0-5); Hematocrit 29.9 % (37-47); Hemoglobin 10.1 g/dL (12.0-15.0); Lymphocyte % 23.7 % (19-41); Mean Corp Hgb Conc 33.8 g/dL (32-36); Mean Corpuscular Hgb 29.3 pg (27.0-32.0); Mean Corpuscular Volume 86.7 fL (81-99); Mean Platelet Vol. 8.4 fl (6.2-12.0); Monocyte# 0.51 X10^3/uL; Monocyte% 10.1 % (0-10); NRBC Flagged by Analyzer 0 % (0-5); Neutrophil # 3.22 X10^3/uL (2.7-7.7); Neutrophil % 63.6 % (47-70); Platelet Count 283 K/mm3 (150-450); RBC Distribution Width CV 11.9 % (11.6-14.6); RBC Distribution Width SD 37.7 fl (35.1-43.9); Red Blood Count 3.45 M/mm3 (4.2-5.4); White Blood Count 5.1 K/mm3 (4.4-11.0)
== END ==
PROVIDERS: PCP Family Medicine; Visit Provider Internal Medicine Gastroenterology
DX: K92.2 Gastrointestinal hemorrhage, unspecified (principal)
CPT/HCPCS: 36415; 85025

== ENCOUNTER 2021-07-28 09:29 | Inpatient (IN) | payer BC, MEDICARE, SELFPAY ==
[2021-07-28] VITALS (11 sets, daily range): BP systolic 125–160; BP diastolic 50–67; PULSE 78–97; RESP 11–21; TEMP 36.5–37.3; O2SAT 96–100; BMI 19.5
--- NOTE | 2021-07-28 10:08 | RAD_ITS ---
STUDY: X-RAY CHEST REASON FOR EXAM: Female, 75 years old. Chest pain TECHNIQUE: Single AP portable view of the chest. COMPARISON: Comparison is made with prior study dated 12/24/2019. FINDINGS: EKG electrodes are seen. There is hyperinflation of the lungs consistent with chronic obstructive lung disease (COPD). Stable mild increased markings at the lung bases suggestive of bibasilar scarring. There is no demonstrated pleural abnormality. Normal size heart. Normal mediastinum and dionne. Normal visualized pulmonary arteries. There is atherosclerotic calcification of the aortic arch with tortuosity. There are diffuse degenerative changes of the visualized thoracic spine. Normal visualized ribs, clavicles, and shoulders. There is no demonstrated abnormality of the visualized soft tissue structures of the upper abdomen. RAD/Chest 1 View (Portable) IMPRESSION: Hyperinflation. Stable mild scarring at the lung bases. Electronically Signed: Chevy Fields MD at 12:03 EST , Service support ,
--- NOTE | 2021-07-28 10:09 | EKG12_ITS ---
Test Reason : SYNCOPE Blood Pressure : / mmHG Vent. Rate : 078 BPM Atrial Rate : 078 BPM P-R Int : 178 ms QRS Dur : 074 ms QT Int : 388 ms P-R-T Axes : 058 033 029 degrees QTc Int : 442 ms Normal sinus rhythm Normal ECG Confirmed by STEVEN TORRES, KATI ([id number]), makeup editor MENDOZA ACOSTA ([id number]) on 07/29/2021 2:28:07 P M Referred By: WILEY Confirmed By:OSCAR HARRIS MD
--- NOTE | 2021-07-28 10:10 | EDS_ITS ---
HPI History of Present Illness Chief Complaint: Syncope Informant: patient and spouse/S.O. Narrative Narrative: Patient is a 75-year-old female with complex medical history including coronary artery disease with 2 stents placed at [facility] in April this year as well as recurrent GI bleeds followed by Dr. Garcia presenting with syncope and GI bleeding. Patient states she got up in the middle the night multiple times and had black/maroon bowel movements. When she was walking back to her bed she felt weak and dizzy. She passed out and fell in her bathroom. She states he was on the ground for about 20 minutes. She was unable to get back into her bed. She slept for couple hours and then when she woke up she felt that her heart was racing. She had a chest discomfort. She is afraid she was going to have a heart attack so she took 2 nitroglycerin. She then tried to use the restroom again because she felt like she needed to have another bowel movement and had another syncopal episode. Patient states her heart rate felt like it was beating out of her chest and was at least 100. She then came to the emergency room. She continues to take Plavix and aspirin. She states she is due to have a colonoscopy with Dr. Garcia tomorrow and is supposed to start her prep at 2 PM today. She currently denies any chest pain or abdominal pain. She states she does feel weak and her legs feel like lead. [facility] Medical History Abdominal bloating Angina pectoris Aortic insufficiency Aortic valve disease Atherosclerotic heart disease of [place] coronary artery without angina pectoris Atrial fibrillation Bilateral carotid artery stenosis Carotid artery bruit Carotid stenosis, right Cataracts, bilateral Chest pain Chronic headache Constipation Diarrhea Diastolic dysfunction Dysphagia Essential hypertension Family history of premature coronary heart disease GERD (gastroesophageal reflux disease) GI bleed GI problem Hearing problem HLD (hyperlipidemia) Hypothyroidism Hypothyroidism Insomnia half-way use of drug Migraines Non-smoker Nonspecific abnormal serum enzyme levels Osteoarthritis Palpitations Peptic ulcer disease Presence of stent in coronary artery (~04/19/21) Seasonal allergies Segmental colitis associated with diverticulosis Thyroid dysfunction TIA (transient ischemic attack) Ventricular hypertrophy Vision problem Home Medications multivitamin 1 ea PO DAILY 08/19/15 [History Last Taken 07/27/21] levothyroxine 100 mcg tablet 100 mcg PO DAILY 04/28/21 [History Last Taken 07/28/21] lisinopril 20 mg tablet 20 mg PO DAILY 04/28/21 [History Last Taken 07/27/21] metoprolol tartrate 25 mg tablet 50 mg PO BID 04/28/21 [History Last Taken 07/27/21] nitroglycerin 0.4 mg sublingual tablet 0.4 mg SUBLINGUAL Q5-15M PRN #90 tab 05/26/21 [Rx Last Taken 07/28/21] trazodone 50 mg tablet 150 mg PO QHS tab 05/26/21 [History Last Taken 07/27/21] aspirin 81 mg PO DAILY@0800 07/01/21 [History Last Taken 07/27/21] atorvastatin 40 mg PO QHS 07/01/21 [History Last Taken 07/27/21] hydrochlorothiazide 25 mg PO QDAY 07/01/21 [History Last Taken 07/27/21] potassium chloride 20 meq PO DAILY 07/01/21 [History Last Taken 07/27/21] mesalamine 400 mg capsule (with delayed release tablets inside) 400 mg PO BID #60 ea 07/14/21 [Rx Last Taken 07/27/21] clopidogrel 75 mg tablet 75 mg PO DAILY #90 tab 07/21/21 [Rx Last Taken 07/27/21] famotidine 20 mg tablet 20 mg PO BID 07/21/21 [History Last Taken 07/27/21] bisacodyl 5 mg tablet,delayed release 5 mg PO ONCE #4 tab 07/27/21 [Rx Last Taken Unknown] polyethylene glycol 3350 17 gram/dose oral powder 17 g PO DAILY #238 g 07/27/21 [Rx Last Taken Unknown] Allergy/AdvReac Type Severity Reaction Status Date / Time albuterol Allergy Intermediate GI upset Verified 07/28/21 09:32 cyclobenzaprine Allergy Intermediate mental Verified 07/28/21 09:32 [From Flexeril] status change hydrocodone [From Vicodin] Allergy Intermediate muscle Verified 07/28/21 09:32 twitching oxycodone Allergy Intermediate Vomiting Verified 07/28/21 09:32 acetaminophen [From Tylenol] AdvReac Severe Acute Verified 07/28/21 09:32 restless legs isosorbide AdvReac Severe Headaches Verified 07/28/21 09:32 codeine AdvReac Intermediate Nausea & Verified 07/28/21 09:32 Vomiting hydrochlorothiazide AdvReac Mild intolerance Verified 07/28/21 09:32 [From Dyazide] triamterene [From Dyazide] AdvReac Mild intolerance Verified 07/28/21 09:32 erythromycin base AdvReac Nausea Verified 07/28/21 09:32 Family History Mother , Age 76 heart attack Myocardial infarction Heart disease Cardiomyopathy Hypertension Osteoporosis Father , Heart Disease Age 86 Heart disease Parkinson disease CVA (cerebral vascular accident) Hypertension Unknown Thyroid disorder Stomach ulcer Surgical History History of appendectomy History of colonoscopy (~08/2020) History of coronary artery stent placement History of esophagogastroduodenoscopy (EGD) (~08/2020) History of hysterectomy History of thyroidectomy Presence of coronary angioplasty implant and graft (~09/01/15) Social History household members: spouse Smoking Status: Never smoker alcohol intake: current alcohol intake frequency: holidays/special occasions only Alcohol type: wine substance use type: does not use caffeine: Yes Type: coffee Number of servings: 3 what type of physical activity do you participate in: walking frequency: 5-6 times per week seatbelt use: always do you feel safe at home: Yes ROS ROS ED Constitutional Constitutional ED: Reports sweats; Denies chills or fever(s) ENT ENT ED: Denies rhinorrhea or sore throat Cardiovascular Cardiovascular: Reports chest pain, palpitations and racing heartbeat Respiratory/Chest Respiratory/Chest: Denies cough or dyspnea Gastrointestinal Gastrointestinal: Reports melena; Denies abdominal pain or vomiting Genitourinary Genitourinary ED: Denies dysuria or hematuria Musculoskeletal Musculoskeletal: Denies arthralgias or myalgias Integumentary Denies rash Neurologic Neurologic: Reports weakness; Denies headache(s) or paresthesias Psychiatric Psychiatric: Denies depression EXAM Physical Exam Const Vital Signs: 07/28/21 09:29 07/28/21 09:37 07/28/21 11:38 Temperature 97.7 F L Temperature Source Temporal Pulse Rate 97 84 83 Respiratory Rate 16 16 11 L Respiratory Effort Normal Non-Labored Blood Pressure 125/58 H 146/67 H 132/50 H Blood Pressure Mean 80 93 77 Pulse Ox 100 99 96 Oxygen Delivery Method Room Air Room Air Room Air 07/28/21 12:35 Temperature 98.4 F Temperature Source Oral Pulse Rate 82 Respiratory Rate 21 H Respiratory Effort Blood Pressure 145/61 H Blood Pressure Mean 89 Pulse Ox 100 Oxygen Delivery Method Room Air Positive well nourished and well developed General Appearance ED: well developed, pallor and other frail HEENT Reports moist mucous membranes Negative for trauma Eyes PERRL and EOMs intact bilaterally General Eye ED: Negative for pale conjunctiva Neck supple General: Negative for tenderness Chest Wall inspection of chest normal Resp normal respiratory effort and clear to auscultation bilaterally Cardio regular rate, regular rhythm and no murmurs GI normal to inspection, nondistended, normoactive bowel sounds GI Narrative: + melena on rectal exam Extremity Negative for normal to inspection General Extremety ED: Negative for edema or tenderness General Extremity: Negative for edema Neuro oriented x3 and no sensory deficits noted Sensorium / Orientation: alert Motor Exam: general weakness Psych mental status grossly normal Skin no rashes or lesions noted and no wounds General Skin Exam: pallor MDM MDM MDM Narrative Medical decision making narrative: Patient evaluated for melena and associated syncope. Patient appears nontoxic in no acute distress. She is hemodynamically stable in the emergency room. Her hemoglobin is stable from yesterday but does have a one-point drop compared to last week. Her BUN and creatinine also stable. Type and screen is sent. She does have melena on exam. Case is discussed with her GI doctor who feels the patient would benefit from admission to medicine service and further inpatient GI evaluation. Patient is agreeable with this. At this time there is no concern for need for embolization or transfer to higher level of care per GI. I suspect that her syncope was associated with her acute blood loss and likely exacerbated by taking nitroglycerin. I do not think there is a more serious cardiogenic source of her syncope. Lab Data Labs: Laboratory Results - last 24 hr 07/28/21 07/28/21 07/28/21 09:40 09:40 09:40 WBC 5.2 RBC 3.45 L Hgb 9.9 L Hct 30.1 L MCV 87.2 MCH 28.7 MCHC 32.9 RDW Std Deviation 38.9 RDW Coeff of Jase 12.0 Plt Count 298 MPV 8.5 Immature Gran % (Auto) 0.200 Neut % (Auto) 74.6 H Lymph % (Auto) 17.6 L [place] % (Auto) 6.0 Eos % (Auto) 1.2 Baso % (Auto) 0.4 Absolute Neuts (auto) 3.9 Absolute Lymphs (auto) 0.91 Nucleated RBC % 0 PT 13.0 INR 1.0 APTT 24.7 Sodium 137 Potassium 3.4 L Chloride 102 Carbon Dioxide 28.0 Anion Gap 7 BUN 21 H Creatinine 0.94 Estim Creat Clear Calc 40.19 Est GFR (MDRD) Af Amer 74 Est GFR (MDRD) Non-Af 61 BUN/Creatinine Ratio 22.2 H Glucose 121 H Lactic Acid Calcium 9.0 Total Bilirubin 0.40 AST 19 ALT 21 Alkaline Phosphatase 76 Troponin I High Sens 8 Total Protein 7.0 Albumin 3.4 Globulin 3.6 Albumin/Globulin Ratio 0.9 Lipase 184 Blood Type Antibody Screen 07/28/21 07/28/21 09:40 12:31 WBC RBC Hgb Hct MCV MCH MCHC RDW Std Deviation RDW Coeff of Jase Plt Count MPV Immature Gran % (Auto) Neut % (Auto) Lymph % (Auto) [place] % (Auto) Eos % (Auto) Baso % (Auto) Absolute Neuts (auto) Absolute Lymphs (auto) Nucleated RBC % PT INR APTT Sodium Potassium Chloride Carbon Dioxide Anion Gap BUN Creatinine Estim Creat Clear Calc Est GFR (MDRD) Af Amer Est GFR (MDRD) Non-Af BUN/Creatinine Ratio Glucose Lactic Acid 0.7 Calcium Total Bilirubin AST ALT Alkaline Phosphatase Troponin I High Sens Total Protein Albumin Globulin Albumin/Globulin Ratio Lipase Blood Type O POSITIVE Antibody Screen NEGATIVE Radiography Chest X-Ray - ED: 1 View, Read by ED Physician, Read by Radiologist and No Acute Disease Diagnostic Testing: Clinical Impression(s) from Imaging Studies Chest X-Ray 07/28/21 10:08 IMPRESSION: Hyperinflation. Stable mild scarring at the lung bases. Electronically Signed: Chevy Fields MD at 12:03 EST , Service support , Rhythm Strip Rhythm Strip: Sinus Rhythm Rate: 78 Ectopy: None EKG Initial EKG: Attestation: I personally reviewed and interpreted this EKG as follows: Interpretation: Sinus Rhythm Comments: Normal sinus rhythm at a rate of 78 Normal axis Normal intervals Normal ST segments Discharge Plan Dx/Rx/DC Orders Clinical Impression: Syncope, GI bleed Disposition Disposition: Acute Care Hospital [facility] Discharge Date/Time: 07/28/21 13:15
[2021-07-28 10:24] LABS: Absolute Lymphocyte Count 0.91 X10^3/uL (0.83-4.51); Absolute Neutrophil Count 3.9 X10^3/uL (2.0-7.7); Basophil# 0.02 X10^3/uL; Basophil% 0.4 % (0-1); Eosinophil# 0.06 X10^3/uL; Eosinophils% 1.2 % (0-5); Hematocrit 30.1 % (37-47); Hemoglobin 9.9 g/dL (12.0-15.0); Lymphocyte # 0.91 X10^3/ul (0.83-4.51); Lymphocyte % 17.6 % (19-41); Mean Corp Hgb Conc 32.9 g/dL (32-36); Mean Corpuscular Hgb 28.7 pg (27.0-32.0); Mean Corpuscular Volume 87.2 fL (81-99); Mean Platelet Vol. 8.5 fl (6.2-12.0); Monocyte# 0.31 X10^3/uL; NRBC Flagged by Analyzer 0 % (0-5); Neutrophil # 3.87 X10^3/uL (2.7-7.7); Neutrophil % 74.6 % (47-70); Platelet Count 298 K/mm3 (150-450); RBC Distribution Width SD 38.9 fl (35.1-43.9); Red Blood Count 3.45 M/mm3 (4.2-5.4); White Blood Count 5.2 K/mm3 (4.4-11.0)
[2021-07-28 10:29] LABS: Partial Thromboplast Time 24.7 Seconds (24.1-36.2)
[2021-07-28 10:48] LABS: ALB/GLOB Ratio 0.9 RATIO (0.9-2.4); AST(SGOT) 19 U/L (15-37); Alanine Aminotransfer ALT/SGPT 21 U/L (13-56); Albumin, Serum 3.4 g/dL (3.2-5.0); Alkaline Phosphatase 76 U/L (45-117); Anion Gap 7 (5-15); BUN 21 mg/dL (7-18); BUN/Creat Ratio 22.2 RATIO (10-20); Chloride 102 mmol/L (98-107); Creatinine, Serum 0.94 mg/dL (0.55-1.02); EST Glomerular Filtration Rate 61 mL/min (>60); Est Glom Filt Rate - Afr Amer 74 mL/min (>60); Estimated Creatinine Clearance 40.19 ml/min; Globulin 3.6 g/dL (2.2-4.2); Glucose 121 mg/dL (74-106); Lipase 184 U/L (73-393); Potassium 3.4 mmol/L (3.5-5.1); Sodium Level 137 mmol/L (136-145); Troponin-I HS 8 pg/mL (3.0-54.0)
--- NOTE | 2021-07-28 11:59 | NURSING ---
DR [place] FOR DR OATES
--- NOTE | 2021-07-28 12:32 | NURSING ---
MED SURG STANISLAV GI BLED, SYNCOPE
--- NOTE | 2021-07-28 12:54 | HP.PCM.HOS_ITS ---
HPI - General General Date of Admission: 07/28/21 Date of Service: 07/28/21 Chief Complaint: melena HPI Narrative MANDA AKBAR, is a 75 F who presents with melena. He had 3 episodes of melena. Today, she felt unwell, had palpitations then passed out. Came to quickly. She presented to ED and Hg was 9.9. Pt had melena last month and had a cscope that showed segmental colitis with diverticulosis, but her melena that episode was more severe. Pt had PCI on 04/19/21 and is on clopidogrel and ASA. She currently has no palpitations, but does have some chest pressure. Dr. Myers, of the ED, spoke with Dr. Garcia who will see the patient in consultation. [facility] Medical History Abdominal bloating Angina pectoris Aortic insufficiency Aortic valve disease Atherosclerotic heart disease of [place] coronary artery without angina pectoris Atrial fibrillation Bilateral carotid artery stenosis Carotid artery bruit Carotid stenosis, right Cataracts, bilateral Chest pain Chronic headache Constipation Diarrhea Diastolic dysfunction Dysphagia Essential hypertension Family history of premature coronary heart disease GERD (gastroesophageal reflux disease) GI bleed GI problem Hearing problem HLD (hyperlipidemia) Hypothyroidism Hypothyroidism Insomnia 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 tender use of drug Migraines Non-smoker Nonspecific abnormal serum enzyme levels Osteoarthritis Palpitations Peptic ulcer disease Presence of stent in coronary artery (~04/19/21) Seasonal allergies Segmental colitis associated with diverticulosis Thyroid dysfunction TIA (transient ischemic attack) Ventricular hypertrophy Vision problem Home Medications multivitamin 1 ea PO DAILY 08/19/15 [History Last Taken 07/01/21] levothyroxine 100 mcg tablet 100 mcg PO DAILY 04/28/21 [History Last Taken 07/01/21] lisinopril 20 mg tablet 20 mg PO DAILY 04/28/21 [History Last Taken 07/01/21] metoprolol tartrate 25 mg tablet 50 mg PO BID 04/28/21 [History Last Taken 07/01/21] nitroglycerin 0.4 mg sublingual tablet 0.4 mg SUBLINGUAL Q5-15M PRN #90 tab 05/26/21 [Rx Last Taken Unknown] trazodone 50 mg tablet 150 mg PO QHS tab 05/26/21 [History Last Taken 06/30/21] aspirin 81 mg PO DAILY@0800 07/01/21 [History Last Taken 07/01/21] atorvastatin 40 mg PO QHS 07/01/21 [History Last Taken 06/30/21] hydrochlorothiazide 25 mg PO QDAY 07/01/21 [History Last Taken 07/01/21] potassium chloride 20 meq PO DAILY 07/01/21 [History Last Taken 07/01/21] mesalamine 400 mg capsule (with delayed release tablets inside) 400 mg PO BID #60 ea 07/14/21 [Rx Last Taken Unknown] clopidogrel 75 mg tablet 75 mg PO DAILY #90 tab 07/21/21 [Rx Last Taken Unknown] famotidine 20 mg tablet 20 mg PO BID 07/21/21 [History Last Taken Unknown] bisacodyl 5 mg tablet,delayed release 5 mg PO ONCE #4 tab 07/27/21 [Rx Last Taken Unknown] polyethylene glycol 3350 17 gram/dose oral powder 17 g PO DAILY #238 g 07/27/21 [Rx Last Taken Unknown] Allergy/AdvReac Type Severity Reaction Status Date / Time albuterol Allergy Intermediate GI upset Verified 07/28/21 09:32 cyclobenzaprine Allergy Intermediate mental Verified 07/28/21 09:32 [From Flexeril] status change hydrocodone [From Vicodin] Allergy Intermediate muscle Verified 07/28/21 09:32 twitching oxycodone Allergy Intermediate Vomiting Verified 07/28/21 09:32 acetaminophen [From Tylenol] AdvReac Severe Acute Verified 07/28/21 09:32 restless legs isosorbide AdvReac Severe Headaches Verified 07/28/21 09:32 codeine AdvReac Intermediate Nausea & Verified 07/28/21 09:32 Vomiting hydrochlorothiazide AdvReac Mild intolerance Verified 07/28/21 09:32 [From Dyazide] triamterene [From Dyazide] AdvReac Mild intolerance Verified 07/28/21 09:32 erythromycin base AdvReac Nausea Verified 07/28/21 09:32 Family History Mother , Age 76 heart attack Myocardial infarction Heart disease Cardiomyopathy Hypertension Osteoporosis Father , Heart Disease Age 86 Heart disease Parkinson disease CVA (cerebral vascular accident) Hypertension Unknown Thyroid disorder Stomach ulcer Surgical History History of appendectomy History of colonoscopy (~08/2020) History of coronary artery stent placement History of esophagogastroduodenoscopy (EGD) (~08/2020) History of hysterectomy History of thyroidectomy Presence of coronary angioplasty implant and graft (~09/01/15) Social History household members: spouse Smoking Status: Never smoker alcohol intake: current alcohol intake frequency: holidays/special occasions only Alcohol type: wine substance use type: does not use caffeine: Yes Type: coffee Number of servings: 3 what type of physical activity do you participate in: walking frequency: 5-6 times per week seatbelt use: always do you feel safe at home: Yes ROS ROS Narrative All review of systems were negative except as mentioned above in the history of present illness and the other review of systems. Vital Signs Vital Signs Vital Signs: 07/28/21 09:29 07/28/21 09:37 07/28/21 11:38 Temperature 36.5 C L Temperature Source Temporal Pulse Rate 97 84 83 Respiratory Rate 16 16 11 L Respiratory Effort Normal Non-Labored Blood Pressure 125/58 H 146/67 H 132/50 H Blood Pressure Mean 80 93 77 Pulse Ox 100 99 96 Oxygen Delivery Method Room Air Room Air Room Air 07/28/21 12:35 Temperature 36.9 C Temperature Source Oral Pulse Rate 82 Respiratory Rate 21 H Respiratory Effort Blood Pressure 145/61 H Blood Pressure Mean 89 Pulse Ox 100 Oxygen Delivery Method Room Air Weight Weight: 50 kg Body Mass Index (BMI) 19.5 Physical Exam Const alert General Appearance: cooperative Resp normal respiratory effort, no retractions, no use of accessory muscles and clear to auscultation bilaterally Cardio regular rate, regular rhythm, S1 normal heart sound and S2 normal heart sound GI soft to palpation and non-distended GI Narrative: mild umbilical abdominal tenderness. Extremity normal to inspection Peripheral Pulses: Yes pulses 2+ throughout Skin no rashes or lesions noted and no wounds Neuro Sensorium / Orientation: alert Psych affect normal Results Lab / Micro Data Attestation: I reviewed the patient's lab results. Result Diagrams: 07/28/21 09:40 07/28/21 09:40 Labs: Laboratory Results - last 24 hr 07/28/21 09:40: WBC 5.2, RBC 3.45 L, Hgb 9.9 L, Hct 30.1 L, MCV 87.2, MCH 28.7, MCHC 32.9, RDW Std Deviation 38.9, RDW Coeff of Jase 12.0, Plt Count 298, MPV 8.5, Immature Gran % (Auto) 0.200, Neut % (Auto) 74.6 H, Lymph % (Auto) 17.6 L, [place] % (Auto) 6.0, Eos % (Auto) 1.2, Baso % (Auto) 0.4, Absolute Neuts (auto) 3.9, Absolute Lymphs (auto) 0.91, Nucleated RBC % 0 07/28/21 09:40: PT 13.0, INR 1.0, APTT 24.7 07/28/21 09:40: Sodium 137, Potassium 3.4 L, Chloride 102, Carbon Dioxide 28.0, Anion Gap 7, BUN 21 H, Creatinine 0.94, Estim Creat Clear Calc 40.19, Est GFR (MDRD) Af Amer 74, Est GFR (MDRD) Non-Af 61, BUN/Creatinine Ratio 22.2 H, Glucose 121 H, Calcium 9.0, Total Bilirubin 0.40, AST 19, ALT 21, Alkaline Phosphatase 76, Troponin I High Sens 8, Total Protein 7.0, Albumin 3.4, Globulin 3.6, Albumin/Globulin Ratio 0.9, Lipase 184 Rhythm Strip Rhythm Strip: Sinus Rhythm Rate: 78 Ectopy: None EKG Initial EKG: Attestation: I personally reviewed and interpreted this EKG as follows: Prior EKG tracings: available for review EKG Rhythm Intrepretation: Sinus Rhythm Radiology Impression Chest X-Ray 07/28/21 10:08 IMPRESSION: Hyperinflation. Stable mild scarring at the lung bases. Electronically Signed: Chevy Fields MD at 12:03 EST , Service support , Assessment & Plan Assessment/Plan (1) GI bleed: QUALIFIERS: GI bleed type/associated pathology: unspecified gastrointestinal hemorrhage type Qualified Code(s): K92.2 - Gastrointestinal hemorrhage, unspecified (2) Syncope: QUALIFIERS: Syncope type: vasovagal syncope Qualified Code(s): R55 - Syncope and collapse (3) Chest pain: QUALIFIERS: Chest pain type: other chest pain Qualified Code(s): R07.89 - Other chest pain (4) Palpitations: PLAN: 1. GI bleed * Suspect lower * Complicated by patient's use of aspirin and clopidogrel * monitor H/H * consult GI * no further melena. Therefore, no need to bleeding scan/embolization at this time * start PPI IV. Hold H2B for time being 2. Syncope * likely vasovagal * IVF * reassurance provided 3. Chest pain * doubt cardiac * EKG and troponin negative * monitor 4. CAD * recent PCI in April * continue ASA and clopidogrel * follow up w cardiology as outpt. 5. VTE prophylaxis: SCDs 6. Code Status: verified with pt--full code. Charges/Coding Visit Charges Inpatient E&M: 26834 Init Hosp L3
[2021-07-28 13:22] LABS: Lactic Acid 0.7 mmol/L (0.4-1.9)
[2021-07-28] MEDS: 0.9% Normal Saline 1,000 ML 75 ML IV (13:47)
--- NOTE | 2021-07-28 14:25 | CT_ITS ---
STUDY: CTA ABDOMEN AND PELVIS WITH CONTRAST REASON FOR EXAM: Female, 75 years old. GI bleed RADIATION DOSAGE (If Supplied By Facility): CTDIvol = ( 17.31 ) mGy, DLP = ( 306.33 ) mGycm TECHNIQUE: Transaxial images were obtained from the dome of the diaphragm to the symphysis pubis without oral contrast. IV 100mL Isovue-370 was administered. Sagittal and coronal images were reconstructed. Individualized dose optimization techniques were used for this CT. COMPARISON: Comparison is made with prior study dated 07/01/2021. FINDINGS: Stable focal infiltrates in the posterior lateral aspect of the left lower lobe. The visualized portions of the heart are within normal limits. Normal liver. Normal gallbladder and extrahepatic biliary system. There now is evidence of a 1.2 cm by 2.4 cm peripheral wedge-shaped hypodensity in the posterior aspect of the spleen. This may represent a splenic infarct. Normal pancreas. Normal bilateral adrenal glands. Mild to moderate degree of right hydronephrosis. No obstructive calculus is seen. This may represent changes secondary to possible narrowing at the right ureteral pelvic junction. This is unchanged. Normal left kidney. Normal visualized stomach. Normal small intestine. There are scattered colonic diverticula consistent with diverticulosis. Moderate amount of fecal material is seen in the rectosigmoid colon. There is non-visualization of the appendix. There is diffuse atherosclerotic calcification of the abdominal aorta and its major visceral branches, without a demonstrated aneurysm. Normal inferior vena cava. Normal retroperitoneum. Normal urinary bladder. There is absence of the uterus consistent with a prior hysterectomy. Normal abdominal wall. There are diffuse degenerative changes of the visualized lumbar spine. Dextroscoliosis. CT/CT ANGIO ABD&PEL W/O&W/DYE IMPRESSION: Stable examination. Electronically Signed: Chevy Fields MD at 15:07 EST , Service support ,
[2021-07-28 14:47] LABS: Troponin-I HS 9 pg/mL (3.0-54.0)
[2021-07-28 16:41] LABS: Absolute Lymphocyte Count 1.19 X10^3/uL (0.83-4.51); Absolute Neutrophil Count 3.2 X10^3/uL (2.0-7.7); Eosinophil# 0.01 X10^3/uL; Eosinophils% 0.2 % (0-5); Hematocrit 25.2 % (37-47); Hemoglobin 8.4 g/dL (12.0-15.0); Lymphocyte # 1.19 X10^3/ul (0.83-4.51); Lymphocyte % 25.4 % (19-41); Mean Corp Hgb Conc 33.3 g/dL (32-36); Mean Corpuscular Hgb 28.8 pg (27.0-32.0); Mean Corpuscular Volume 86.3 fL (81-99); Monocyte# 0.24 X10^3/uL; Monocyte% 5.1 % (0-10); NRBC Flagged by Analyzer 0 % (0-5); Neutrophil # 3.23 X10^3/uL (2.7-7.7); Neutrophil % 69.1 % (47-70); Platelet Count 234 K/mm3 (150-450); RBC Distribution Width CV 11.9 % (11.6-14.6); RBC Distribution Width SD 38.2 fl (35.1-43.9); Red Blood Count 2.92 M/mm3 (4.2-5.4); White Blood Count 4.7 K/mm3 (4.4-11.0)
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
[2021-07-28] MEDS: traZODone 50 MG Tablet 150 MG PO (21:43)
[2021-07-28] MEDS: MESALAMINE 400 MG CAPSULE.DR PO (21:43)
[2021-07-28] MEDS: Metoprolol Tartrate 50 MG Tablet PO (21:44)
[2021-07-29] VITALS (19 sets, daily range): BP systolic 124–185; BP diastolic 53–149; PULSE 61–88; RESP 16–18; TEMP 36.2–37.5; O2SAT 95–100
[2021-07-29] MEDS: 0.9% Normal Saline 1,000 ML 75 ML IV ×2 (04:19→22:25)
[2021-07-29 07:04] LABS: Absolute Lymphocyte Count 1.32 X10^3/uL (0.83-4.51); Absolute Neutrophil Count 2.4 X10^3/uL (2.0-7.7); Basophil# 0.02 X10^3/uL; Basophil% 0.5 % (0-1); Eosinophil# 0.12 X10^3/uL; Eosinophils% 2.8 % (0-5); Hematocrit 22.8 % (37-47); Hemoglobin 7.5 g/dL (12.0-15.0); Lymphocyte # 1.32 X10^3/ul (0.83-4.51); Lymphocyte % 31.2 % (19-41); Mean Corp Hgb Conc 32.9 g/dL (32-36); Mean Platelet Vol. 8.3 fl (6.2-12.0); Monocyte# 0.37 X10^3/uL; Monocyte% 8.7 % (0-10); NRBC Flagged by Analyzer 0 % (0-5); Neutrophil # 2.39 X10^3/uL (2.7-7.7); Neutrophil % 56.6 % (47-70); Platelet Count 206 K/mm3 (150-450); RBC Distribution Width CV 12.2 % (11.6-14.6); RBC Distribution Width SD 39.1 fl (35.1-43.9); Red Blood Count 2.59 M/mm3 (4.2-5.4); White Blood Count 4.2 K/mm3 (4.4-11.0)
[2021-07-29 07:44] LABS: AST(SGOT) 14 U/L (15-37); Alanine Aminotransfer ALT/SGPT 14 U/L (13-56); Albumin, Serum 2.5 g/dL (3.2-5.0); Alkaline Phosphatase 53 U/L (45-117); Anion Gap 2 (5-15); BUN 8 mg/dL (7-18); BUN/Creat Ratio 11.5 RATIO (10-20); Chloride 113 mmol/L (98-107); EST Glomerular Filtration Rate 87 mL/min (>60); Est Glom Filt Rate - Afr Amer 105 mL/min (>60); Estimated Creatinine Clearance 37.94 ml/min; Globulin 2.5 g/dL (2.2-4.2); Glucose 100 mg/dL (74-106); Potassium 3.8 mmol/L (3.5-5.1); Sodium Level 144 mmol/L (136-145)
--- NOTE | 2021-07-29 11:41 | PN.HOSP_ITS ---
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 Patient going for EGD at 10:30 AM this morning. Patient states that she is currently not feeling too bad however she does complain of a dry cough. Patient denies other needs. Objective Data Objective Data Vital Signs: Vital Signs Temp Pulse Resp BP Pulse Ox 98.2 F 63 16 147/59 H 99 07/29/21 11:08 07/29/21 11:08 07/29/21 11:08 07/29/21 11:08 07/29/21 11:08 Oxygen Delivery Method Room Air Weight: 110 lb 11.211 oz Body Mass Index (BMI) 19.5 Intake & Output: Intake and Output for Last 24 Hours 07/27/21 07/28/21 07/29/21 23:59 23:59 23:59 Intake Total 610 / 610 1400 / 1400 Balance 610 / 610 1400 / 1400 Lab / Micro Data Result Diagrams: 07/29/21 06:40 07/29/21 06:40 Labs: Laboratory Results - last 24 hr 07/28/21 09:40: Blood Type O POSITIVE, Antibody Screen NEGATIVE 07/28/21 09:40: Crossmatch See Detail 07/28/21 12:31: Lactic Acid 0.7 07/28/21 14:10: Troponin I High Sens 9 07/28/21 16:28: WBC 4.7, RBC 2.92 L, Hgb 8.4 L, Hct 25.2 L, MCV 86.3, MCH 28.8, MCHC 33.3, RDW Std Deviation 38.2, RDW Coeff of Jase 11.9, Plt Count 234, MPV 8.0, Immature Gran % (Auto) 0.200, Neut % (Auto) 69.1, Lymph % (Auto) 25.4, [place] % (Auto) 5.1, Eos % (Auto) 0.2, Baso % (Auto) 0.0, Absolute Neuts (auto) 3.2, Absolute Lymphs (auto) 1.19, Nucleated RBC % 0 07/29/21 06:40: WBC 4.2 L, RBC 2.59 L, Hgb 7.5 L, Hct 22.8 L, MCV 88.0, MCH 29.0, MCHC 32.9, RDW Std Deviation 39.1, RDW Coeff of Jase 12.2, Plt Count 206, MPV 8.3, Immature Gran % (Auto) 0.200, Neut % (Auto) 56.6, Lymph % (Auto) 31.2, [place] % (Auto) 8.7, Eos % (Auto) 2.8, Baso % (Auto) 0.5, Absolute Neuts (auto) 2.4, Absolute Lymphs (auto) 1.32, Nucleated RBC % 0 07/29/21 06:40: Sodium 144, Potassium 3.8, Chloride 113 H, Carbon Dioxide 29.0, Anion Gap 2 L, BUN 8, Creatinine 0.70, Estim Creat Clear Calc 37.94, Est GFR (MDRD) Af Amer 105, Est GFR (MDRD) Non-Af 87, BUN/Creatinine Ratio 11.5, Glucose 100, Calcium 8.0 L, Total Bilirubin 0.40, AST 14 L, ALT 14, Alkaline Phosphatase 53, Total Protein 5.0 L, Albumin 2.5 L, Globulin 2.5, Albumin/Globulin Ratio 1.0 Radiography Diagnostic Testing: Radiology Impression Chest X-Ray 07/28/21 10:08 IMPRESSION: Hyperinflation. Stable mild scarring at the lung bases. Electronically Signed: Chevy Fields MD at 12:03 EST , Service support , Abdomen/Pelvis CTA 07/28/21 14:25 IMPRESSION: Stable examination. Electronically Signed: Chevy Fields MD at 15:07 EST , Service support , Rhythm Strip Rhythm Strip: Sinus Rhythm Rate: 78 Ectopy: None Physical Exam Const alert, oriented x3 and no apparent distress HEENT head/scalp atraumatic Head and Scalp: normocephalic Eyes conjunctivae normal and no scleral icterus Neck full ROM and supple Resp normal respiratory effort, normal air movement and clear to auscultation bilater ally Cardio regular rate, regular rhythm, S1 normal heart sound and S2 normal heart sound GI normal to inspection, nondistended, normoactive bowel sounds, soft to palpation and non-tender Extremity normal to inspection, full ROM and no clubbing, cyanosis or edema Skin no rashes or lesions noted, no wounds and skin turgor normal Neuro oriented x3, moves all extremities and no focal motor deficits Sensorium / Orientation: awake and alert Psych affect normal Assessment & Plan Assessment/Plan (1) GI bleed: QUALIFIERS: GI bleed type/associated pathology: unspecified gastrointestinal hemorrhage type Qualified Code(s): K92.2 - Gastrointestinal hemorrhage, unspecified (2) Syncope: QUALIFIERS: Syncope type: vasovagal syncope Qualified Code(s): R55 - Syncope and collapse PLAN: 1. GI bleed -GI following -EGD scheduled today with Dr. Garcia -Hemoglobin 7.5, down from 8.4 yesterday. Patient has 1 unit of blood to be transfused -Will obtain H&H 1 hour after blood is transfused -CBC daily 2. Syncope -Continue IV fluids -Likely vasovagal, patient has not had any syncopal episodes since admission 3. Chest pain -Continue cardiac monitoring -EKG and troponin normal 4. CAD -Recent PCI in April, patient on Plavix and aspirin -Complicates possible GI bleed DVT prophylaxis-SCDs This patient was seen by Sonia Damon NP-C under the supervision of Dr. Anisa castillo. Documented by User: Dr. Gregory Santana, 07/29/21 17:36 Subjective Subjective Still with abdominal pain. No further melena. Objective Data Lab / Micro Data Result Diagrams: 07/29/21 06:40 07/29/21 06:40 Physical Exam Const alert Resp normal respiratory effort, no retractions, no use of accessory muscles and clear to auscultation bilaterally Cardio regular rate, regular rhythm, S1 normal heart sound and S2 normal heart sound GI normal to inspection, nondistended, normoactive bowel sounds, soft to palpation, non-tender and non-distended Assessment & Plan Assessment/Plan (1) GI bleed: QUALIFIERS: GI bleed type/associated pathology: unspecified gastrointestinal hemorrhage type Qualified Code(s): K92.2 - Gastrointestinal hemorrhage, unspecified (2) Acute blood loss anemia: PLAN: Patient seen and examined independently. Data and vitals reviewed. I agree with the above note by the nurse practitioner. 1. GI bleed Suspect lower Complicated by patient's use of aspirin and clopidogrel monitor H/H consult GI no further melena. Therefore, no need to bleeding scan/embolization at this time start PPI IV. Hold H2B for time being 2. acute blood loss anemia Hg dropped from 9.9 to 7.5 transfuse to goal of 8 (given known CAD) monitor 3. Syncope likely vasovagal IVF reassurance provided 4. Chest pain doubt cardiac EKG and troponin negative 5. CAD recent PCI in April continue ASA and clopidogrel follow up w cardiology as outpt. 6. VTE prophylaxis: SCDs 7. Code Status: verified with pt--full code. Charges/Coding Visit Charges Inpatient E&M: 35094 Subs Hosp L3
[2021-07-29] MEDS: MESALAMINE 400 MG CAPSULE.DR PO ×2 (14:44→22:12)
[2021-07-29] MEDS: Aspirin 81 MG TAB.CHEW PO (14:44)
[2021-07-29] MEDS: Metoprolol Tartrate 50 MG Tablet PO ×2 (14:44→22:12)
[2021-07-29] MEDS: Potassium Chloride Oral Tablet 20 MEQ PO (14:44)
[2021-07-29] MEDS: Clopidogrel Bisulfate 75 MG Tablet PO (14:45)
[2021-07-29] MEDS: Lisinopril 20 MG Tablet PO (14:45)
--- NOTE | 2021-07-29 15:31 | CASEMGMT ---
CARIE RAINES chart review: Patient was admitted 07/01/21-07/03/21 for GI bleed. See CARIE RAINES assessment from 07/02/21. Patient was discharged to home with follow-up with PCP and Dr. Garcia. Patient returned to [facility] ED for melena stools and syncopal event. Hgb was 9.9. Patient states that she attended her follow-up appt with PCP and with Dr. Garcia and was to follow-up again with Dr. Garcia in 3 months. Patient states she was taking medications as prescribed. Dr. Garcia consulted and to have endoscopy on 07/29/21. CM to follow this patient and plan for a safe discharge.
--- NOTE | 2021-07-29 15:33 | CASEMGMT ---
CARIE RAINES NOTE: Pt screened with [facility] Palliative Care Screening Tool d/t readmission-pt does not meet criteria. Vlad ZUÑIGA RN CM
[2021-07-29] MEDS: Bisacodyl 5 MG Tablet 20 MG PO (16:55)
[2021-07-29] MEDS: Electrolyte Solution/Peg's 4000 ML PO (18:11)
[2021-07-29 18:47] LABS: Hematocrit 35.6 % (37-47); Hemoglobin 11.6 g/dL (12.0-15.0)
[2021-07-29] MEDS: traZODone 50 MG Tablet 150 MG PO (22:15)
[2021-07-30] VITALS (15 sets, daily range): BP systolic 127–159; BP diastolic 50–69; PULSE 57–81; RESP 16–18; TEMP 36.3–37.1; O2SAT 96–99; BMI 19.5
[2021-07-30 05:28] LABS: Absolute Neutrophil Count 6.2 X10^3/uL (2.0-7.7); Basophil# 0.02 X10^3/uL; Basophil% 0.2 % (0-1); Eosinophil# 0.08 X10^3/uL; Hematocrit 28.7 % (37-47); Hemoglobin 9.5 g/dL (12.0-15.0); Lymphocyte % 16.8 % (19-41); Mean Corp Hgb Conc 33.1 g/dL (32-36); Mean Corpuscular Hgb 27.8 pg (27.0-32.0); Mean Corpuscular Volume 83.9 fL (81-99); Mean Platelet Vol. 8.7 fl (6.2-12.0); Monocyte# 0.58 X10^3/uL; NRBC Flagged by Analyzer 0 % (0-5); Neutrophil # 6.23 X10^3/uL (2.7-7.7); Neutrophil % 74.6 % (47-70); Platelet Count 216 K/mm3 (150-450); RBC Distribution Width CV 14.2 % (11.6-14.6); RBC Distribution Width SD 43.3 fl (35.1-43.9); Red Blood Count 3.42 M/mm3 (4.2-5.4); White Blood Count 8.3 K/mm3 (4.4-11.0)
[2021-07-30 05:37] LABS: International Normalized Ratio 1.2; Prothrombin Time (Protime)PT. 14.2 SECONDS (11.7-14.9)
[2021-07-30 05:38] LABS: Partial Thromboplast Time 30.7 Seconds (24.1-36.2)
--- NOTE | 2021-07-30 05:55 | EKG12_ITS ---
Test Reason : AM EKG Blood Pressure : / mmHG Vent. Rate : 075 BPM Atrial Rate : 075 BPM P-R Int : 190 ms QRS Dur : 068 ms QT Int : 416 ms P-R-T Axes : 061 036 033 degrees QTc Int : 464 ms Normal sinus rhythm Normal ECG When compared with ECG of 28-JUL-2021 09:41, No significant change was found Confirmed by STEVEN TORRES, KATI ([id number]), city editor MENDOZA ACOSTA ([id number]) on 07/30/2021 2:16:07 P M Referred By: STANISLAV Confirmed By:OSCAR HARRIS MD
[2021-07-30 06:03] LABS: Anion Gap 2 (5-15); BUN 6 mg/dL (7-18); BUN/Creat Ratio 9.6 RATIO (10-20); Calcium,Total 7.8 mg/dL (8.5-10.1); Chloride 117 mmol/L (98-107); Creatinine, Serum 0.63 mg/dL (0.55-1.02); EST Glomerular Filtration Rate 98 mL/min (>60); Est Glom Filt Rate - Afr Amer 118 mL/min (>60); Estimated Creatinine Clearance 37.94 ml/min; Glucose 104 mg/dL (74-106); Potassium 3.6 mmol/L (3.5-5.1); Sodium Level 146 mmol/L (136-145); Thyroid Stim Hormone (TSH) 0.33 uIU/mL (0.358-3.74)
[2021-07-30] MEDS: Lisinopril 20 MG Tablet PO (08:39)
[2021-07-30] MEDS: Metoprolol Tartrate 50 MG Tablet PO ×2 (08:39→21:05)
[2021-07-30] MEDS: Potassium Chloride Oral Tablet 20 MEQ PO (08:40)
[2021-07-30] MEDS: Clopidogrel Bisulfate 75 MG Tablet PO (08:40)
[2021-07-30] MEDS: MESALAMINE 400 MG CAPSULE.DR PO ×2 (08:40→21:04)
[2021-07-30] MEDS: 0.9% Normal Saline 1,000 ML 75 ML IV (10:54)
--- NOTE | 2021-07-30 12:51 | PCM.PN.HOSP ---
Documented by User: Sonia Damon NP-C 07/30/21 13:16 Subjective Subjective Patient seen and examined. Patient lying in bed no distress noted. Patient had going for colonoscopy later today with Dr. Garcia Objective Data Objective Data Vital Signs: Vital Signs Temp Pulse Resp BP Pulse Ox 98.8 F 66 16 135/59 H 98 07/30/21 08:25 07/30/21 08:39 07/30/21 08:25 07/30/21 08:25 07/30/21 11:48 Oxygen Delivery Method Room Air Weight: 110 lb 11.211 oz Body Mass Index (BMI) 19.5 Intake & Output: Intake and Output for Last 24 Hours 07/28/21 07/29/21 07/30/21 23:59 23:59 23:59 Intake Total 610 / 610 2900 / 2900 1275.58 / 1275.58 Output Total 350 / 350 Balance 610 / 610 2900 / 2650 925.58 / 925.58 Lab / Micro Data Result Diagrams: 07/30/21 14:10 07/30/21 05:05 Labs: Laboratory Results - last 24 hr 07/28/21 09:40: Crossmatch See Detail 07/29/21 18:36: Hgb 11.6 L, Hct 35.6 L 07/30/21 05:05: WBC 8.3, RBC 3.42 L, Hgb 9.5 L, Hct 28.7 L, MCV 83.9, MCH 27.8, MCHC 33.1, RDW Std Deviation 43.3, RDW Coeff of Jase 14.2, Plt Count 216, MPV 8.7, Immature Gran % (Auto) 0.400, Neut % (Auto) 74.6 H, Lymph % (Auto) 16.8 L, [place] % (Auto) 7.0, Eos % (Auto) 1.0, Baso % (Auto) 0.2, Absolute Neuts (auto) 6.2, Absolute Lymphs (auto) 1.40, Nucleated RBC % 0 07/30/21 05:05: Sodium 146 H, Potassium 3.6, Chloride 117 H, Carbon Dioxide 27.0, Anion Gap 2 L, BUN 6 L, Creatinine 0.63, Estim Creat Clear Calc 37.94, Est GFR (MDRD) Af Amer 118, Est GFR (MDRD) Non-Af 98, BUN/Creatinine Ratio 9.6 L, Glucose 104, Calcium 7.8 L, TSH 0.33 L 07/30/21 05:05: PT 14.2, INR 1.2, APTT 30.7 Rhythm Strip Rhythm Strip: Sinus Rhythm Rate: 78 Ectopy: None Physical Exam Const alert, oriented x3 and no apparent distress General Appearance: cooperative HEENT head/scalp atraumatic Eyes conjunctivae normal and no scleral icterus Neck full ROM and supple Resp normal respiratory effort, normal air movement, no retractions, no use of accessory muscles and clear to auscultation bilaterally Cardio regular rate, regular rhythm, S1 normal heart sound and S2 normal heart sound GI normal to inspection, nondistended, normoactive bowel sounds, soft to palpation and non-tender Extremity normal to inspection, full ROM and no clubbing, cyanosis or edema Skin no rashes or lesions noted, no wounds and skin turgor normal Neuro oriented x3, moves all extremities and no focal motor deficits Sensorium / Orientation: awake and alert Psych affect normal Assessment & Plan Assessment/Plan (1) Acute blood loss anemia: (2) GI bleed: QUALIFIERS: GI bleed type/associated pathology: unspecified gastrointestinal hemorrhage type Qualified Code(s): K92.2 - Gastrointestinal hemorrhage, unspecified (3) Syncope: QUALIFIERS: Syncope type: vasovagal syncope Qualified Code(s): R55 - Syncope and collapse PLAN: 1. GI bleed -GI following -Patient underwent EGD with Dr. Garcia yesterday, colonoscopy scheduled for today -Hemoglobin 9.5 today -CBC daily 2. Syncope -Continue IV fluids -Likely vasovagal, patient has not had any syncopal episodes since admission 3. Chest pain -Continue cardiac monitoring -EKG and troponin normal 4. CAD -Recent PCI in April, patient on Plavix and aspirin -Complicates possible GI bleed DVT prophylaxis-SCDs This patient was seen by JOSE Rios under the supervision of Dr. Santana. Documented by User: Dr. Gregory Santana, DO 07/30/21 17:15 Objective Data Lab / Micro Data Result Diagrams: 07/30/21 14:10 07/30/21 05:05 Physical Exam Const alert and no apparent distress Resp normal respiratory effort, no retractions, no use of accessory muscles and clear to auscultation bilaterally Cardio regular rate, regular rhythm, S1 normal heart sound and S2 normal heart sound GI normal to inspection, nondistended, normoactive bowel sounds, soft to palpation, non-tender and non-distended Extremity normal to inspection Assessment & Plan Assessment/Plan (1) Acute blood loss anemia: (2) GI bleed: QUALIFIERS: GI bleed type/associated pathology: unspecified gastrointestinal hemorrhage type Qualified Code(s): K92.2 - Gastrointestinal hemorrhage, unspecified PLAN: Patient seen and examined independently. Data and vitals reviewed. I agree with the above note by the nurse practitioner. 1. GI bleed Suspect lower Complicated by patient's use of aspirin and clopidogrel monitor H/H consult GI no further melena. Therefore, no need to bleeding scan/embolization at this time start PPI IV. Hold H2B for time being 2. acute blood loss anemia Hg dropped from 9.9 to 7.5 transfuse to goal of 8 (given known CAD) monitor H/H stable 3. Syncope likely vasovagal IVF reassurance provided 4. Chest pain doubt cardiac EKG and troponin negative 5. CAD recent PCI in April continue ASA and clopidogrel follow up w cardiology as outpt. 6. VTE prophylaxis: SCDs 7. Code Status: verified with pt--full code. Charges/Coding Visit Charges Inpatient E&M: 99819 Subs Hosp L2
[2021-07-30 14:18] LABS: Hematocrit 28.1 % (37-47); Hemoglobin 9.4 g/dL (12.0-15.0)
[2021-07-30] MEDS: Ondansetron 4 MG/2 ML Vial 8 MG IV (14:33)
[2021-07-30] MEDS: 0.9% Saline Lock 10 ML Syringe IV (14:33)
--- NOTE | 2021-07-30 17:04 | PCM.DC ---
Discharge Instructions Diet Discharge Diet: Light diet - advance as tolerated Activity Discharge Activity: Return to Normal Activity Dressing / Incision Call your doctor if you observe: Inability to have a bowel movement and - (Blood in stool or black tarry stools) Follow Up Care Please Follow Up With: FriendRon DO When: 2 weeks Test Results: Test results from this visit will be discussed in further detail at your follow-up appointment, if applicable. Discharge Plan Admission Admit Date/Time: 07/28/21 12:48 Primary Reason for Your Visit: GI bleed Attending Provider: Gregory Santana Primary Care Provider: Smith Orozco Discharge Orders/Prescriptions Prescriptions: Continued nitroglycerin 0.4 mg tablet, sublingual 0.4 mg sublingual Q5-15M PRN (Reason: chest pain) Qty: 90 RF: 3 famotidine 20 mg tablet 20 mg PO BID RF: 0 clopidogrel 75 mg tablet 75 mg PO DAILY Qty: 90 RF: 3 multivitamin 1 EACH tablet 1 ea PO DAILY RF: 0 trazodone 50 mg tablet 150 mg PO QHS RF: 0 hydrochlorothiazide 25 mg tablet 25 mg PO QDAY RF: 0 atorvastatin 40 mg tablet 40 mg PO QHS RF: 0 aspirin 81 MG tablet,chewable 81 mg PO DAILY@0800 RF: 0 potassium chloride 20 mEq tablet extended release 20 meq PO DAILY RF: 0 metoprolol tartrate 25 mg tablet 50 mg PO BID RF: 0 lisinopril 20 mg tablet 20 mg PO DAILY RF: 0 levothyroxine 100 mcg tablet 100 mcg PO DAILY RF: 0 mesalamine 400 mg capsule (with del rel tablets) 400 mg PO BID Qty: 60 RF: 0 Discontinued bisacodyl 5 mg tablet,delayed release (DR/EC) 5 mg PO ONCE Qty: 4 RF: 0 polyethylene glycol 3350 [Miralax] 17 gram/dose powder 17 g PO DAILY Qty: 238 RF: 0 Referrals / Follow Up: EvanslogMeagan carrillo NP, ASTRONOMY INSTRUCTOR-C [NON-STAFF] - 08/04/21 1:40 pm Disposition Disposition (needs filled in before D/C Order can be placed): Home, Self Care
--- NOTE | 2021-07-30 17:15 | DS.PCM_ITS ---
Providers Date of Admission: 07/28/21 Primary Care Physician: Dr. Smith Orozco MD Consultations 07/28/21 13:20 Consult: Gastroenterology Routine Consulting Provider: Jovan Gastroenterology Reason for Consult: Gi bleed EMERGENT Consult: No MD Notified: Yes Date Notified: 07/28/21 Time Notified: 12:52 Method of Notification: Verbal Reason For Visit: GI BLEED Diagnosis Discharge Diagnosis (1) Acute blood loss anemia: Status: Acute Code(s): D62 - Acute posthemorrhagic anemia (2) GI bleed: Status: Acute Code(s): K92.2 - Gastrointestinal hemorrhage, unspecified Qualifiers: GI bleed type/associated pathology: unspecified gastrointestinal hemorrhage type Qualified Code(s): K92.2 - Gastrointestinal hemorrhage, unspecified Medications at Discharge Home Medications multivitamin 1 ea PO DAILY 08/19/15 levothyroxine 100 mcg tablet 100 mcg PO DAILY 04/28/21 lisinopril 20 mg tablet 20 mg PO DAILY 04/28/21 metoprolol tartrate 25 mg tablet 50 mg PO BID 04/28/21 nitroglycerin 0.4 mg sublingual tablet 0.4 mg SUBLINGUAL Q5-15M PRN #90 tab 05/26/21 trazodone 50 mg tablet 150 mg PO QHS tab 05/26/21 aspirin 81 mg PO DAILY@0800 07/01/21 atorvastatin 40 mg PO QHS 07/01/21 hydrochlorothiazide 25 mg PO QDAY 07/01/21 potassium chloride 20 meq PO DAILY 07/01/21 mesalamine 400 mg capsule (with delayed release tablets inside) 400 mg PO BID #60 ea 07/14/21 clopidogrel 75 mg tablet 75 mg PO DAILY #90 tab 07/21/21 famotidine 20 mg tablet 20 mg PO BID 07/21/21 Hospital Course Operations None Procedures Colonoscopy and EGD Summary of Care Provided Minutes Spent on Discharge: 20 Hospital Course: Patient is a 75-year-old female who originally came in with acute blood loss anemia and syncope. Patient underwent EGD and colonoscopy during her admission and received 1 unit of packed red blood cells. Patient will follow up with Dr. Garcia in approximately 2 weeks. Physical Exam Const alert, oriented x3 and no apparent distress General Appearance: cooperative HEENT head/scalp atraumatic Eyes conjunctivae normal and no scleral icterus Neck full ROM and supple Resp normal respiratory effort, normal air movement, no retractions, no use of accessory muscles and clear to auscultation bilaterally Cardio regular rate, regular rhythm, S1 normal heart sound and S2 normal heart sound GI normal to inspection, nondistended, normoactive bowel sounds, soft to palpation, non-tender and non-distended GI Narrative: mild umbilical abdominal tenderness. Extremity normal to inspection, full ROM and no clubbing, cyanosis or edema Skin no rashes or lesions noted, no wounds and skin turgor normal Neuro oriented x3, moves all extremities and no focal motor deficits Sensorium / Orientation: awake and alert Psych affect normal Weight / BMI Weight Weight: 110 lb 11.211 oz Body Mass Index (BMI) 19.5 ABG / Lab / Microbiology Data Result Diagrams: 07/30/21 14:10 07/30/21 05:05 Laboratory: Laboratory Results - last 24 hr 07/29/21 18:36: Hgb 11.6 L, Hct 35.6 L 07/30/21 05:05: WBC 8.3, RBC 3.42 L, Hgb 9.5 L, Hct 28.7 L, MCV 83.9, MCH 27.8, MCHC 33.1, RDW Std Deviation 43.3, RDW Coeff of Jase 14.2, Plt Count 216, MPV 8.7, Immature Gran % (Auto) 0.400, Neut % (Auto) 74.6 H, Lymph % (Auto) 16.8 L, [place] % (Auto) 7.0, Eos % (Auto) 1.0, Baso % (Auto) 0.2, Absolute Neuts (auto) 6.2, Absolute Lymphs (auto) 1.40, Nucleated RBC % 0 07/30/21 05:05: Sodium 146 H, Potassium 3.6, Chloride 117 H, Carbon Dioxide 27.0, Anion Gap 2 L, BUN 6 L, Creatinine 0.63, Estim Creat Clear Calc 37.94, Est GFR (MDRD) Af Amer 118, Est GFR (MDRD) Non-Af 98, BUN/Creatinine Ratio 9.6 L, Glucose 104, Calcium 7.8 L, TSH 0.33 L 07/30/21 05:05: PT 14.2, INR 1.2, APTT 30.7 07/30/21 14:10: Hgb 9.4 L, Hct 28.1 L D/C Instructions Discharge Diet: Light diet - advance as tolerated Call your doctor if you observe: Inability to have a bowel movement and - (Blood in stool or black tarry stools) Please Follow Up With: Ron Garcia DO When: 2 weeks Meaningful Use Info Meaningful Use Diagnoses (Choose all that apply): None applicable Discharge Plan Admission Admit Date/Time: 07/28/21 12:48 Primary Reason for Your Visit: GI bleed Attending Provider: Gregory Santana Primary Care Provider: Smith Orozco Consulting Providers: Ron Garcia Discharge Orders/Prescriptions Prescriptions: Continued nitroglycerin 0.4 mg tablet, sublingual 0.4 mg sublingual Q5-15M PRN (Reason: chest pain) Qty: 90 RF: 3 famotidine 20 mg tablet 20 mg PO BID RF: 0 clopidogrel 75 mg tablet 75 mg PO DAILY Qty: 90 RF: 3 multivitamin 1 EACH tablet 1 ea PO DAILY RF: 0 trazodone 50 mg tablet 150 mg PO QHS RF: 0 hydrochlorothiazide 25 mg tablet 25 mg PO QDAY RF: 0 atorvastatin 40 mg tablet 40 mg PO QHS RF: 0 aspirin 81 MG tablet,chewable 81 mg PO DAILY@0800 RF: 0 potassium chloride 20 mEq tablet extended release 20 meq PO DAILY RF: 0 metoprolol tartrate 25 mg tablet 50 mg PO BID RF: 0 lisinopril 20 mg tablet 20 mg PO DAILY RF: 0 levothyroxine 100 mcg tablet 100 mcg PO DAILY RF: 0 mesalamine 400 mg capsule (with del rel tablets) 400 mg PO BID Qty: 60 RF: 0 Discontinued bisacodyl 5 mg tablet,delayed release (DR/EC) 5 mg PO ONCE Qty: 4 RF: 0 polyethylene glycol 3350 [Miralax] 17 gram/dose powder 17 g PO DAILY Qty: 238 RF: 0 Referrals / Follow Up: PodlogMeagan carrillo NP, JAD-C [NON-STAFF] - 08/04/21 1:40 pm Ron Garcia DO [STAFF PHYSICIAN] - Within 2 Weeks Disposition Disposition (needs filled in before D/C Order can be placed): Home, Self Care
--- NOTE | 2021-07-30 20:00 | NURSING ---
Pt informed that discharge orders were placed so she would be able to leave if she had a ride tonight. After calling and speaking with , they decided to wait until morning. This RN spoke with Registration about if insurance will cover the extra night or if there is a change the patient will be billed for the extra stay. Registration was not completely sure, so the patient was warned that it is a possibility. Patient still does not wish to leave tonight.
[2021-07-30] MEDS: traZODone 50 MG Tablet 150 MG PO (21:04)
[2021-07-31] VITALS (7 sets, daily range): BP systolic 124–130; BP diastolic 56–63; PULSE 59–70; RESP 17–18; TEMP 36.8–37.1; O2SAT 94–97
--- NOTE | 2021-07-31 01:20 | PCS.PANDOC ---
PANDEMIC DOCUMENTATION INITIATED: Date: 04/26/2021 Time: 190
[2021-07-31] MEDS: 0.9% Normal Saline 1,000 ML 75 ML IV (05:29)
[2021-07-31] MEDS: Levothyroxine 100 MCG Tablet PO (05:57)
[2021-07-31 08:18] LABS: Absolute Lymphocyte Count 1.13 X10^3/uL (0.83-4.51); Absolute Neutrophil Count 4.4 X10^3/uL (2.0-7.7); Basophil# 0.02 X10^3/uL; Basophil% 0.3 % (0-1); Eosinophil# 0.21 X10^3/uL; Eosinophils% 3.3 % (0-5); Hematocrit 27.9 % (37-47); Hemoglobin 9.4 g/dL (12.0-15.0); Lymphocyte # 1.13 X10^3/ul (0.83-4.51); Mean Corp Hgb Conc 33.7 g/dL (32-36); Mean Corpuscular Hgb 28.6 pg (27.0-32.0); Mean Corpuscular Volume 84.8 fL (81-99); Mean Platelet Vol. 8.8 fl (6.2-12.0); Monocyte# 0.49 X10^3/uL; Monocyte% 7.8 % (0-10); NRBC Flagged by Analyzer 0 % (0-5); Neutrophil # 4.41 X10^3/uL (2.7-7.7); Neutrophil % 70.4 % (47-70); Platelet Count 181 K/mm3 (150-450); RBC Distribution Width CV 13.5 % (11.6-14.6); RBC Distribution Width SD 42.1 fl (35.1-43.9); Red Blood Count 3.29 M/mm3 (4.2-5.4); White Blood Count 6.3 K/mm3 (4.4-11.0)
[2021-07-31 08:42] LABS: Anion Gap 5 (5-15); BUN 7 mg/dL (7-18); BUN/Creat Ratio 12.2 RATIO (10-20); Calcium,Total 7.8 mg/dL (8.5-10.1); Chloride 111 mmol/L (98-107); Creatinine, Serum 0.57 mg/dL (0.55-1.02); EST Glomerular Filtration Rate 109 mL/min (>60); Est Glom Filt Rate - Afr Amer 131 mL/min (>60); Estimated Creatinine Clearance 37.94 ml/min; Glucose 94 mg/dL (74-106); Potassium 3.5 mmol/L (3.5-5.1); Sodium Level 143 mmol/L (136-145)
--- NOTE | 2021-07-31 09:29 | PN.GI_ITS ---
Subjective Subjective Patient underwent anoscopy yesterday. She had no bleeding overnight. 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 To which her bleeding stigmata. She has had no bleeding since and is not have any abdominal pain at this time. Objective Data Objective Data Vital Signs: Vital Signs Temp Pulse Resp BP Pulse Ox 98.2 F 64 17 130/63 H 94 07/31/21 03:09 07/31/21 07:00 07/31/21 03:09 07/31/21 03:09 07/31/21 07:45 Oxygen Delivery Method Room Air Weight: 110 lb 11.211 oz Body Mass Index (BMI) 19.5 Intake & Output: Intake and Output for Last 24 Hours 07/29/21 07/30/21 07/31/21 23:59 23:59 23:59 Intake Total 2900 / 2900 1666.91 / 1666.91 705 / 705 Output Total 350 / 350 Balance 2900 / 2650 1316.91 / 1316.91 705 / 705 Lab / Micro Data Result Diagrams: 07/31/21 07:46 07/31/21 07:46 Labs: Laboratory Results - last 24 hr 07/30/21 14:10: Hgb 9.4 L, Hct 28.1 L 07/31/21 07:46: WBC 6.3, RBC 3.29 L, Hgb 9.4 L, Hct 27.9 L, MCV 84.8, MCH 28.6, MCHC 33.7, RDW Std Deviation 42.1, RDW Coeff of Jase 13.5, Plt Count 181, MPV 8.8, Immature Gran % (Auto) 0.200, Neut % (Auto) 70.4 H, Lymph % (Auto) 18.0 L, [place] % (Auto) 7.8, Eos % (Auto) 3.3, Baso % (Auto) 0.3, Absolute Neuts (auto) 4.4, Absolute Lymphs (auto) 1.13, Nucleated RBC % 0 07/31/21 07:46: Sodium 143, Potassium 3.5, Chloride 111 H, Carbon Dioxide 27.0, Anion Gap 5, BUN 7, Creatinine 0.57, Estim Creat Clear Calc 37.94, Est GFR (MDRD) Af Amer 131, Est GFR (MDRD) Non-Af 109, BUN/Creatinine Ratio 12.2, Gluco se 94, Calcium 7.8 L Rhythm Strip Rhythm Strip: Sinus Rhythm Rate: 78 Ectopy: None Physical Exam Const alert General Appearance: cooperative Orientation / Consciousness: oriented to person HEENT hearing grossly normal bilaterally Head and Scalp: normal to inspection Face and Sinus: face symmetric Nose: external nose normal Mouth: oral and palatal mucosa normal Eyes conjunctivae normal General Eye: normal appearance of both eyes Neck full ROM General: normal visual inspection Lymph Lymphatic: no lymphadenopathy noted Chest inspection of chest normal and palpation of chest normal Chest: symmetrical chest wall rise Resp normal respiratory effort Effort and Inspection: able to speak in complete sentences Cardio regular rate GI non-distended Percussion: normal to percussion Rectal Exam: deferred Neuro Speech: speech normal Gait (Neuro): normal gait Assessment & Plan Assessment/Plan (1) Acute blood loss anemia: PLAN: Acute blood loss anemia secondary to 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 Her hemoglobin seems to be stable at this time. I will start her on iron therapy and stool softener. She will follow up in the office in approximately 2 weeks. (2) Syncope: QUALIFIERS: Syncope type: vasovagal syncope Qualified Code(s): R55 - Syncope and collapse PLAN: Syncope possibly secondary to acute GI bleed. She has had no further episodes while in the hospital. (3) Segmental colitis associated with diverticulosis: PLAN: Segmental colitis associated with diverticulosis. She was on mesalamine as an outpatient, she will continue that upon discharge. (4) GI bleed: QUALIFIERS: GI bleed type/associated pathology: unspecified gastrointestinal hemorrhage type Qualified Code(s): K92.2 - Gastrointestinal hemorrhage, unspecified PLAN: GI bleed secondary to AVMs in the small bowel. Her risk factors for AVMs and small bowel are cardiovascular disease and peripheral vascular disease and advanced age. She should not take any antiplatelets for the next 2 weeks. (5) Ischemic colitis: PLAN: Ischemic colitis has resolved. Charges/Coding Visit Charges Inpatient E&M: 17080 Subs Hosp L3
--- NOTE | 2021-07-31 09:40 | PCM.PN.HOSP ---
Documented by User: Sonia Damon NP-C 07/31/21 09:54 Subjective Subjective Patient seen and examined. Patient is getting dressed to go home. Patient was discharged last night however patient does not have a ride home. Objective Data Objective Data Vital Signs: Vital Signs Temp Pulse Resp BP Pulse Ox 98.7 F 70 18 124/56 H 96 07/31/21 09:30 07/31/21 09:30 07/31/21 09:30 07/31/21 09:30 07/31/21 09:30 Oxygen Delivery Method Room Air Weight: 110 lb 11.211 oz Body Mass Index (BMI) 19.5 Intake & Output: Intake and Output for Last 24 Hours 07/29/21 07/30/21 07/31/21 23:59 23:59 23:59 Intake Total 2900 / 2900 1666.91 / 1666.91 705 / 705 Output Total 350 / 350 Balance 2900 / 2650 1316.91 / 1316.91 705 / 705 Lab / Micro Data Result Diagrams: 07/31/21 07:46 07/31/21 07:46 Labs: Laboratory Results - last 24 hr 07/30/21 14:10: Hgb 9.4 L, Hct 28.1 L 07/31/21 07:46: WBC 6.3, RBC 3.29 L, Hgb 9.4 L, Hct 27.9 L, MCV 84.8, MCH 28.6, MCHC 33.7, RDW Std Deviation 42.1, RDW Coeff of Jase 13.5, Plt Count 181, MPV 8.8, Immature Gran % (Auto) 0.200, Neut % (Auto) 70.4 H, Lymph % (Auto) 18.0 L, [place] % (Auto) 7.8, Eos % (Auto) 3.3, Baso % (Auto) 0.3, Absolute Neuts (auto) 4.4, Absolute Lymphs (auto) 1.13, Nucleated RBC % 0 07/31/21 07:46: Sodium 143, Potassium 3.5, Chloride 111 H, Carbon Dioxide 27.0, Anion Gap 5, BUN 7, Creatinine 0.57, Estim Creat Clear Calc 37.94, Est GFR (MDRD) Af Amer 131, Est GFR (MDRD) Non-Af 109, BUN/Creatinine Ratio 12.2, Glucose 94, Calcium 7.8 L Rhythm Strip Rhythm Strip: Sinus Rhythm Rate: 78 Ectopy: None Physical Exam Const alert, oriented x3 and no apparent distress General Appearance: cooperative HEENT head/scalp atraumatic Eyes conjunctivae normal and no scleral icterus Neck full ROM and supple Resp normal respiratory effort, normal air movement, no retractions, no use of accessory muscles and clear to auscultation bilaterally Cardio regular rate, regular rhythm, S1 normal heart sound and S2 normal heart sound GI normal to inspection, nondistended, normoactive bowel sounds, soft to palpation, non-tender and non-distended GI Narrative: mild umbilical abdominal tenderness. Extremity normal to inspection, full ROM and no clubbing, cyanosis or edema Skin no rashes or lesions noted, no wounds and skin turgor normal Neuro oriented x3, moves all extremities and no focal motor deficits Sensorium / Orientation: awake and alert Psych affect normal Assessment & Plan Assessment/Plan (1) Acute blood loss anemia: (2) Syncope: QUALIFIERS: Syncope type: vasovagal syncope Qualified Code(s): R55 - Syncope and collapse (3) GI bleed: QUALIFIERS: GI bleed type/associated pathology: unspecified gastrointestinal hemorrhage type Qualified Code(s): K92.2 - Gastrointestinal hemorrhage, unspecified PLAN: 1. Acute blood loss anemia -hemoglobin stable at 9.4 -Patient has had no syncopal episodes since admission to hospital Patient will be discharged home with instructions to follow-up with Dr. Garcia in 2 weeks. Patient also has a follow-up appointment on 08/04/2021 with her primary care provider. Would recommend a CBC at that time to check blood counts. This patient was seen by JOSE Rios under the supervision of Dr. Santana. Documented by User: Dr. Gregory Santana DO 07/31/21 15:15 Objective Data Lab / Micro Data Result Diagrams: 07/31/21 07:46 07/31/21 07:46 Physical Exam Const alert Psych affect normal Assessment & Plan Assessment/Plan (1) Acute blood loss anemia: (2) GI bleed: QUALIFIERS: GI bleed type/associated pathology: unspecified gastrointestinal hemorrhage type Qualified Code(s): K92.2 - Gastrointestinal hemorrhage, unspecified PLAN: Patient seen and examined independently. Data and vitals reviewed. I agree with the above note by the nurse practitioner. 1. GI bleed 2/2 AVMs in small bowel Complicated by patient's use of aspirin and clopidogrel monitor H/H 2. acute blood loss anemia Hg dropped from 9.9 to 7.5 transfuse to goal of 8 (given known CAD) monitor H/H stable 3. Syncope likely vasovagal IVF reassurance provided 4. Chest pain doubt cardiac EKG and troponin negative 5. CAD recent PCI in April continue ASA and clopidogrel follow up w cardiology as outpt. Charges/Coding Visit Charges Inpatient E&M: 61975 Disch Hosp
[2021-07-31] MEDS: Metoprolol Tartrate 50 MG Tablet PO (09:41)
[2021-07-31] MEDS: Potassium Chloride Oral Tablet 20 MEQ PO (09:41)
[2021-07-31] MEDS: MESALAMINE 400 MG CAPSULE.DR PO (09:41)
[2021-07-31] MEDS: Clopidogrel Bisulfate 75 MG Tablet PO (09:41)
[2021-07-31] MEDS: Aspirin 81 MG TAB.CHEW PO (09:41)
[2021-07-31] MEDS: Lisinopril 20 MG Tablet PO (09:42)
--- NOTE | 2022-05-13 06:34 | OP.COLON_ITS ---
Patient Name: Bharti Aaron Procedure Date: 07/30/2021 5:50 PM Date of : 1945 Age: 75 Procedure: Colonoscopy Indications: Acute post hemorrhagic anemia Providers: Ron Garcia DO Medicines: See the Anesthesia note for documentation of the administered medications Patient Profile: This is a 75 year old female. Refer to note in patient chart for documentation of history and physical. Last Colonoscopy: Complications: No immediate complications. Estimated blood loss: None. Procedure: Pre-Anesthesia Assessment: - Prior to the procedure, a History and Physical was performed, and patient medications and allergies were reviewed. The patient's tolerance of previous anesthesia was also reviewed. The risks and benefits of the procedure and the sedation options and risks were discussed with the patient. All questions were answered, and informed consent was obtained. [Anticoagulant Agents] [Days Prior to Procedure]. [ASA Grade]. After reviewing the risks and benefits, the patient was deemed in satisfactory condition to undergo the procedure. After I obtained informed consent, the scope was passed under direct vision. Throughout the procedure, the patient's blood pressure, pulse, and oxygen saturations were monitored continuously. The quality of the bowel preparation was [Prep Quality]. The Colonoscope was introduced through the anus and advanced to 15 cm into the ileum. Moderate Sedation: Moderate (conscious) sedation was administered by the endoscopy nurse and supervised by the endoscopist. The patient's oxygen saturation, heart rate, blood pressure and response to care were monitored. Total physician intraservice time was 15 minutes. Scope In: 6:11:24 PM Scope Withdrawal Time 0 hours 6 minutes 35 seconds Scope Out: 6:35:07 PM Total Procedure Duration Time 0 hours 23 minutes 43 seconds Findings: A [Size] polyp was found [Site]. [Pedicle]. [Method]. [Resection & Retrieval]. Multiple small and large-mouthed diverticula were found in the sigmoid colon and descending colon. There was no evidence of diverticular bleeding. The distal ileum contained three small angiodysplastic lesions with stigmata of recent bleeding. Coagulation for hemostasis using heater probe was successful. Estimated blood loss was minimal. A moderate amount of stool was found in the sigmoid colon, interfering with visualization. Impression: - One polyp. - Moderate diverticulosis in the sigmoid colon and in the descending colon. There was no evidence of diverticular bleeding. 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 Treated with a heater probe. - Stool in the sigmoid colon. Recommendation: - Repeat colonoscopy [day] [reason]. - Resume regular diet today. - Continue present medications. - Return to my office in 2 weeks. Procedure Code(s): --- Professional --- 66621, Colonoscopy, flexible; with control of bleeding, any method G0500, Moderate sedation services provided by the same physician or other qualified health hiv/aids care nurse performing a gastrointestinal endoscopic service that sedation supports, requiring the presence of an independent trained observer to assist in the monitoring of the patient's level of consciousness and physiological status; initial 15 minutes of intra-service time; patient age 5 years or older (additional time may be reported with 26745, as appropriate) CPT copyright 2017 [employer] [place] [employer]. All rights reserved. The codes documented in this report are preliminary and upon remote coders review may be revised to meet current compliance requirements. Ron Garcia DO 07/30/2021 6:40:40 PM This report has been signed electronically. Number of Addenda: 1 Note Initiated On: 07/30/2021 5:50 PM Addendum Number: 1 Addendum Date: 05/13/2022 6:29:09 AM MAC was used instead of moderate sedation for this patient. Ron Garcia DO 05/13/2022 6:29:13 AM This report has been signed electronically.
== END 2021-07-31 10:00 | disposition home or self-care (01) | DRG 378 ==
LOC: ED 12:39 → PCU 13:12
PROVIDERS: Anesthesiology; Internal Medicine Gastroenterology; Nurse Practitioner Family; Emergency Provider Emergency Medicine; PCP Family Medicine
PROC: 0DJD8ZZ Inspection of Lower Intestinal Tract, Via Natural or Artificial Opening Endoscopic (ICD-10-PCS; CPT 45378; principal; 2021-07-30 16:25)
DX: K55.21 Angiodysplasia of colon with hemorrhage (principal); D62 Acute posthemorrhagic anemia; K55.9 Vascular disorder of intestine, unspecified; K57.31 Diverticulosis of large intestine without perforation or abscess with bleeding; I25.119 Atherosclerotic heart disease of native coronary artery with unspecified angina pectoris; R13.10 Dysphagia, unspecified; I35.1 Nonrheumatic aortic (valve) insufficiency; I10 Essential (primary) hypertension; E78.5 Hyperlipidemia, unspecified; E89.0 Postprocedural hypothyroidism; K21.9 Gastro-esophageal reflux disease without esophagitis; M19.90 Unspecified osteoarthritis, unspecified site; Z79.02 Long term (current) use of antithrombotics/antiplatelets; Z79.82 Long term (current) use of aspirin; Z79.890 Hormone replacement therapy; Z79.899 Other long term (current) drug therapy; Z95.5 Presence of coronary angioplasty implant and graft
CPT/HCPCS: 36415; 71045; 74174; 80048; 80053; 83605; 83690; 84443; 84484; 85014; 85018; 85025; 85610; 85730; 86850; 86900; 86901; 86920; 86922; 93005; 99285; J7030; J7040; P9016; Q9967; A4216; J2405

== ENCOUNTER 2021-08-08 02:38 | Emergency (ER) | payer BC, MEDICARE, SELFPAY ==
[2021-08-08 02:39] VITALS: BP 101/41; PULSE 68; RESP 18; TEMP 36.6; O2SAT 97; BMI 20.2
--- NOTE | 2021-08-08 03:01 | EKG12_ITS ---
Test Reason : GI BLEED Blood Pressure : / mmHG Vent. Rate : 064 BPM Atrial Rate : 064 BPM P-R Int : 202 ms QRS Dur : 080 ms QT Int : 466 ms P-R-T Axes : 063 042 033 degrees QTc Int : 480 ms Normal sinus rhythm Normal ECG Confirmed by ROBIN TORRES, VENICE ([id number]), purchase request editor MENDOZA ACOSTA ([id number]) on 08/10/2021 9:12:14 AM Referred By: CHAGO Confirmed By:VENICE KELLY MD
[2021-08-08 03:05] VITALS: BP 102/47; BP 119/46; PULSE 64; PULSE 78
[2021-08-08 03:23] LABS: International Normalized Ratio 1.1; Prothrombin Time (Protime)PT. 13.8 SECONDS (11.7-14.9)
[2021-08-08 03:24] LABS: Partial Thromboplast Time 27.5 Seconds (24.1-36.2)
--- NOTE | 2021-08-08 03:31 | EDS_ITS ---
HPI History of Present Illness Chief Complaint: GI Bleed Narrative Narrative: Patient is a 75-year-old female who was recently discharged from the hospital secondary to GI bleed. She states that at that time she was told the bleeding was from diverticulosis and ischemic colitis. She reports she is on a baby aspirin and Plavix secondary to heart stents placed roughly 3 months ago. She reports she was doing well but that this evening got up to use the bathroom and noticed dark bloody stool per rectum. She also states that she has been lightheaded and dizzy and feels that she had a brief episode of LOC this evening. Patient denies any abdominal pain associated with this but with her dark stool and symptoms was concerned that she may need a blood transfusion once again and therefore comes to the hospital for evaluation [facility] Medical History Abdominal bloating Angina pectoris Aortic insufficiency Aortic valve disease Atherosclerotic heart disease of [place] coronary artery without angina pectoris Atrial fibrillation Bilateral carotid artery stenosis Carotid artery bruit Carotid stenosis, right Cataracts, bilateral Chest pain Chronic headache Constipation Diarrhea Diastolic dysfunction Dysphagia Essential hypertension Family history of premature coronary heart disease GERD (gastroesophageal reflux disease) GI bleed GI problem Hearing problem HLD (hyperlipidemia) Hypothyroidism Hypothyroidism 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 Migraines Non-smoker Nonspecific abnormal serum enzyme levels Osteoarthritis Palpitations Peptic ulcer disease Presence of stent in coronary artery (~04/19/21) Seasonal allergies Segmental colitis associated with diverticulosis Thyroid dysfunction TIA (transient ischemic attack) Ventricular hypertrophy Vision problem Home Medications multivitamin 1 ea PO DAILY 08/19/15 [History Last Taken 07/27/21] levothyroxine 100 mcg tablet 100 mcg PO DAILY 04/28/21 [History Last Taken 07/28/21] lisinopril 20 mg tablet 20 mg PO DAILY 04/28/21 [History Last Taken 07/27/21] metoprolol tartrate 25 mg tablet 50 mg PO BID 04/28/21 [History Last Taken 07/27/21] nitroglycerin 0.4 mg sublingual tablet 0.4 mg SUBLINGUAL Q5-15M PRN #90 tab 05/26/21 [Rx Last Taken 07/28/21] trazodone 50 mg tablet 150 mg PO QHS tab 05/26/21 [History Last Taken 07/27/21] aspirin 81 mg PO DAILY@0800 07/01/21 [History Last Taken 07/27/21] atorvastatin 40 mg PO QHS 07/01/21 [History Last Taken 07/27/21] hydrochlorothiazide 25 mg PO QDAY 07/01/21 [History Last Taken 07/27/21] potassium chloride 20 meq PO DAILY 07/01/21 [History Last Taken 07/27/21] mesalamine 400 mg capsule (with delayed release tablets inside) 400 mg PO BID #60 ea 07/14/21 [Rx Last Taken 07/27/21] clopidogrel 75 mg tablet 75 mg PO DAILY #90 tab 07/21/21 [Rx Last Taken 07/27/21] famotidine 20 mg tablet 20 mg PO BID 07/21/21 [History Last Taken 07/27/21] Allergy/AdvReac Type Severity Reaction Status Date / Time albuterol Allergy Intermediate GI upset Verified 08/08/21 02:44 cyclobenzaprine Allergy Intermediate mental Verified 08/08/21 02:44 [From Flexeril] status change hydrocodone [From Vicodin] Allergy Intermediate muscle Verified 08/08/21 02:44 twitching oxycodone Allergy Intermediate Vomiting Verified 08/08/21 02:44 acetaminophen [From Tylenol] AdvReac Severe Acute Verified 08/08/21 02:44 restless legs isosorbide AdvReac Severe Headaches Verified 08/08/21 02:44 codeine AdvReac Intermediate Nausea & Verified 08/08/21 02:44 Vomiting hydrochlorothiazide AdvReac Mild intolerance Verified 08/08/21 02:44 [From Dyazide] triamterene [From Dyazide] AdvReac Mild intolerance Verified 08/08/21 02:44 erythromycin base AdvReac Nausea Verified 08/08/21 02:44 Family History Mother , Age 76 heart attack Myocardial infarction Heart disease Cardiomyopathy Hypertension Osteoporosis Father , Heart Disease Age 86 Heart disease Parkinson disease CVA (cerebral vascular accident) Hypertension Unknown Thyroid disorder Stomach ulcer Surgical History History of appendectomy History of colonoscopy (~08/2020) History of coronary artery stent placement History of esophagogastroduodenoscopy (EGD) (~08/2020) History of hysterectomy History of thyroidectomy Presence of coronary angioplasty implant and graft (~09/01/15) Social History household members: spouse Smoking Status: Never smoker alcohol intake: current alcohol intake frequency: holidays/special occasions only Alcohol type: wine substance use type: does not use caffeine: Yes Type: coffee Number of servings: 3 what type of physical activity do you participate in: walking frequency: 5-6 times per week seatbelt use: always do you feel safe at home: Yes ROS ROS ED Constitutional Constitutional ED: Denies chills or fever(s) Eyes Eyes: Denies change in vision ENT ENT ED: Denies sore throat Cardiovascular Cardiovascular: Denies chest pain Respiratory/Chest Respiratory/Chest: Denies cough or dyspnea Gastrointestinal Gastrointestinal: Reports melena; Denies abdominal pain, diarrhea, nausea or vomiting Genitourinary Genitourinary ED: Denies dysuria or hematuria Musculoskeletal Musculoskeletal: Denies myalgias Integumentary Denies rash Neurologic Neurologic: Denies headache(s) Hematologic/Lymphatic Hematologic/Lymphatic: Reports easy bleeding and easy bruising EXAM Physical Exam Const Vital Signs: 08/08/21 02:39 08/08/21 03:05 08/08/21 04:25 Temperature 97.9 F Temperature Source Temporal Pulse Rate 68 66 Pulse Rate [Lying] 78 Pulse Rate [Sitting] 64 Respiratory Rate 18 9 L Blood Pressure 101/41 L 121/42 H Blood Pressure [Lying] 102/47 L Blood Pressure [Sitting] 119/46 L Blood Pressure Mean 61 68 Blood Pressure Mean [Lying] 65 Blood Pressure Mean [Sitting] 70 Blood Pressure Source Pulse Ox 97 100 Oxygen Delivery Method Room Air Room Air 08/08/21 05:12 08/08/21 05:27 Temperature 98.9 F 97.9 F Temperature Source Oral Oral Pulse Rate 74 81 Pulse Rate [Lying] Pulse Rate [Sitting] Respiratory Rate 15 22 H Blood Pressure 94/56 L 116/43 L Blood Pressure [Lying] Blood Pressure [Sitting] Blood Pressure Mean 68 67 Blood Pressure Mean [Lying] Blood Pressure Mean [Sitting] Blood Pressure Source Monitor Pulse Ox 100 100 Oxygen Delivery Method Room Air Room Air Positive well nourished and well developed General Appearance ED: well developed HEENT Reports moist mucous membranes Eyes PERRL and EOMs intact bilaterally General Eye ED: Yes pale conjunctiva Neck supple Resp normal respiratory effort and clear to auscultation bilaterally Cardio regular rate and regular rhythm Rate: other Other Details: Radial pulses are plus 2 out of 4 bilaterally are equal and symmetric GI normal to inspection, nondistended, normoactive bowel sounds, non-tender, non- distended and no masses GI Narrative: No voluntary guarding or rigidity no pulsatile mass Auscultation: normoactive bowel sounds Palpation: soft Narrative: Exam shows nonbleeding nonthrombosed external hemorrhoid. Rectal tone is normal without any obvious internal mass palpated. Stool is dark maroon in color Extremity normal to inspection Neuro oriented x3 and CN's II-XII intact bilaterally Sensorium / Orientation: alert Motor Exam: strength 5/5 throughout Psych mental status grossly normal Skin no rashes or lesions noted Skin Narrative: Skin is pale in color MDM MDM MDM Narrative Medical decision making narrative: Patient presented to the ER borderline hypotensive with a history and exam consistent with acute GI bleed. I do not feel the need for imaging studies as she is recently underwent an EGD and colonoscopy. The patient's hemoglobin has dropped from 9.4-7.4 and 8 days. He is also had a change to her BUN from 6 to 29 indicating GI bleed. With her borderline hypotension and anemia as well as persistent bleeding she was given 2 units of blood. Her stool was not truly melanotic but more maroon but with concern there could be an upper area despite the negative EGD I did give 80 mg of Protonix. I was able to discuss the case with her GI doctor who does recomm end patient transfer to a higher level of care as he is exhausted his options for her. This was discussed with the patient and she is agreeable with transfer and wishes to try [facility]. Therefore they were contacted and did agree to accept the patient. With the blood running patient's blood pressure began to improve and her mental status remained normal and therefore she is safe for transfer to their facility. Lab Data Attestation: I reviewed the patient's lab results. Labs: Laboratory Results - last 24 hr 08/08/21 08/08/21 08/08/21 02:50 02:50 02:50 WBC 4.3 L RBC 2.69 L Hgb 7.4 L Hct 22.9 L MCV 85.1 MCH 27.5 MCHC 32.3 RDW Std Deviation 39.5 RDW Coeff of Jase 12.9 Plt Count 296 MPV 8.3 Immature Gran % (Auto) 0.500 Neut % (Auto) 55.1 Lymph % (Auto) 31.9 [place] % (Auto) 9.0 Eos % (Auto) 3.0 Baso % (Auto) 0.5 Absolute Neuts (auto) 2.4 Absolute Lymphs (auto) 1.38 Nucleated RBC % 0 PT 13.8 INR 1.1 APTT 27.5 Sodium 137 Potassium 3.4 L Chloride 102 Carbon Dioxide 27.0 Anion Gap 8 BUN 29 H Creatinine 1.10 H Estim Creat Clear Calc 35.58 Est GFR (MDRD) Af Amer 62 Est GFR (MDRD) Non-Af 51 L BUN/Creatinine Ratio 26.4 H Glucose 137 H Lactic Acid Calcium 7.9 L Total Bilirubin 0.20 Direct Bilirubin < 0.05 AST 20 ALT 15 Alkaline Phosphatase 62 Troponin I High Sens 6 Total Protein 5.4 L Albumin 2.6 L Globulin 2.8 Blood Type Antibody Screen Crossmatch 08/08/21 08/08/21 08/08/21 02:50 02:50 02:50 WBC RBC Hgb Hct MCV MCH MCHC RDW Std Deviation RDW Coeff of Jase Plt Count MPV Immature Gran % (Auto) Neut % (Auto) Lymph % (Auto) [place] % (Auto) Eos % (Auto) Baso % (Auto) Absolute Neuts (auto) Absolute Lymphs (auto) Nucleated RBC % PT INR APTT Sodium Potassium Chloride Carbon Dioxide Anion Gap BUN Creatinine Estim Creat Clear Calc Est GFR (MDRD) Af Amer Est GFR (MDRD) Non-Af BUN/Creatinine Ratio Glucose Lactic Acid 1.5 Calcium Total Bilirubin Direct Bilirubin AST ALT Alkaline Phosphatase Troponin I High Sens Total Protein Albumin Globulin Blood Type O POSITIVE Antibody Screen NEGATIVE Crossmatch See Detail Critical Care Time Critical Care Time: Yes Critical care time (excluding procedures): - (Please note critical care time of 33 minutes) Discharge Plan Triage Chief Complaint: GI Bleed ED Provider: Tad Rodriguez Dx/Rx/DC Orders Clinical Impression: Acute blood loss anemia, Acute GI bleeding Prescriptions: No Action nitroglycerin 0.4 mg tablet, sublingual 0.4 mg sublingual Q5-15M PRN (Reason: chest pain) Qty: 90 RF: 3 famotidine 20 mg tablet 20 mg PO BID RF: 0 clopidogrel 75 mg tablet 75 mg PO DAILY Qty: 90 RF: 3 multivitamin 1 EACH tablet 1 ea PO DAILY RF: 0 trazodone 50 mg tablet 150 mg PO QHS RF: 0 hydrochlorothiazide 25 mg tablet 25 mg PO QDAY RF: 0 atorvastatin 40 mg tablet 40 mg PO QHS RF: 0 aspirin 81 MG tablet,chewable 81 mg PO DAILY@0800 RF: 0 potassium chloride 20 mEq tablet extended release 20 meq PO DAILY RF: 0 metoprolol tartrate 25 mg tablet 50 mg PO BID RF: 0 lisinopril 20 mg tablet 20 mg PO DAILY RF: 0 levothyroxine 100 mcg tablet 100 mcg PO DAILY RF: 0 mesalamine 400 mg capsule (with del rel tablets) 400 mg PO BID Qty: 60 RF: 0 Primary Care Provider: Smith Orozco Referrals: Smith Orozco MD [Primary Care Provider] - Disposition Disposition: Transfer to Another Type HCF Discharge Location: [facility]
[2021-08-08 03:32] LABS: Lactic Acid 1.5 mmol/L (0.4-1.9)
[2021-08-08 03:33] LABS: AST(SGOT) 20 U/L (15-37); Alanine Aminotransfer ALT/SGPT 15 U/L (13-56); Albumin, Serum 2.6 g/dL (3.2-5.0); Alkaline Phosphatase 62 U/L (45-117); Anion Gap 8 (5-15); BUN 29 mg/dL (7-18); BUN/Creat Ratio 26.4 RATIO (10-20); Bilirubin, Direct < 0.05 mg/dL (0.00-0.30); Calcium,Total 7.9 mg/dL (8.5-10.1); Chloride 102 mmol/L (98-107); EST Glomerular Filtration Rate 51 mL/min (>60); Est Glom Filt Rate - Afr Amer 62 mL/min (>60); Estimated Creatinine Clearance 35.58 ml/min; Globulin 2.8 g/dL (2.2-4.2); Glucose 137 mg/dL (74-106); Potassium 3.4 mmol/L (3.5-5.1); Protein, Total 5.4 g/dL (6.4-8.2); Sodium Level 137 mmol/L (136-145); Troponin-I HS 6 pg/mL (3.0-54.0)
[2021-08-08 03:42] LABS: Absolute Lymphocyte Count 1.38 X10^3/uL (0.83-4.51); Absolute Neutrophil Count 2.4 X10^3/uL (2.0-7.7); Basophil# 0.02 X10^3/uL; Basophil% 0.5 % (0-1); Eosinophil# 0.13 X10^3/uL; Hematocrit 22.9 % (37-47); Hemoglobin 7.4 g/dL (12.0-15.0); Lymphocyte # 1.38 X10^3/ul (0.83-4.51); Lymphocyte % 31.9 % (19-41); Mean Corp Hgb Conc 32.3 g/dL (32-36); Mean Corpuscular Hgb 27.5 pg (27.0-32.0); Mean Corpuscular Volume 85.1 fL (81-99); Mean Platelet Vol. 8.3 fl (6.2-12.0); Monocyte# 0.39 X10^3/uL; NRBC Flagged by Analyzer 0 % (0-5); Neutrophil # 2.38 X10^3/uL (2.7-7.7); Neutrophil % 55.1 % (47-70); Platelet Count 296 K/mm3 (150-450); RBC Distribution Width CV 12.9 % (11.6-14.6); RBC Distribution Width SD 39.5 fl (35.1-43.9); Red Blood Count 2.69 M/mm3 (4.2-5.4); White Blood Count 4.3 K/mm3 (4.4-11.0)
[2021-08-08 04:25] VITALS: BP 121/42; PULSE 66; RESP 9; O2SAT 100
--- NOTE | 2021-08-08 05:07 | ED.RN ---
CALLED [facility], [facility], [facility], [facility] AND NO BEDS ARE AVAILABLE. CALLED [facility] AND THEY ARE TAKING INFORMATION TO DETERMINE AVAILABILITY. PRIOR TO CALLING TRANSFER HOSPITALS, DR. LEWIS WAS PAGED BECAUSE SHE IS HIS PATIENT, NO ANSWER. [facility] WOULD NOT ACCEPT.
[2021-08-08 05:12] VITALS: BP 94/56; PULSE 74; RESP 15; TEMP 37.2; O2SAT 100
[2021-08-08 05:27] VITALS: BP 116/43; PULSE 81; RESP 22; TEMP 36.6; O2SAT 100
[2021-08-08 06:33] VITALS: BP 129/50; PULSE 71; RESP 16; TEMP 36.6; O2SAT 99
== END 2021-08-08 07:12 | disposition other institution (70) ==
PROVIDERS: Emergency Provider Emergency Medicine; PCP Family Medicine
DX: D62 Acute posthemorrhagic anemia (principal); K92.1 Melena; I25.119 Atherosclerotic heart disease of native coronary artery with unspecified angina pectoris; E78.5 Hyperlipidemia, unspecified; E03.9 Hypothyroidism, unspecified; I10 Essential (primary) hypertension; I48.91 Unspecified atrial fibrillation; Z95.5 Presence of coronary angioplasty implant and graft; Z79.899 Other long term (current) drug therapy; Z79.82 Long term (current) use of aspirin; Z79.02 Long term (current) use of antithrombotics/antiplatelets
CPT/HCPCS: 36430; 80048; 80076; 82274; 83605; 84484; 85025; 85610; 85730; 86850; 86900; 86901; 86920; 87426; 93005; 96365; 99285; J7030; P9016; A4216; J3490

== ENCOUNTER → 2021-08-25 13:09 | Outpatient (CLI) | payer BC, MEDICARE, SELFPAY ==
[2021-08-25 14:10] LABS: Absolute Lymphocyte Count 1.05 X10^3/uL (0.83-4.51); Absolute Neutrophil Count 3.1 X10^3/uL (2.0-7.7); Basophil# 0.03 X10^3/uL; Basophil% 0.7 % (0-1); Eosinophil# 0.08 X10^3/uL; Eosinophils% 1.7 % (0-5); Hematocrit 32.6 % (37-47); Hemoglobin 10.2 g/dL (12.0-15.0); Lymphocyte # 1.05 X10^3/ul (0.83-4.51); Lymphocyte % 22.9 % (19-41); Mean Corp Hgb Conc 31.3 g/dL (32-36); Mean Corpuscular Hgb 27.6 pg (27.0-32.0); Mean Corpuscular Volume 88.1 fL (81-99); Mean Platelet Vol. 8.4 fl (6.2-12.0); Monocyte# 0.33 X10^3/uL; Monocyte% 7.2 % (0-10); NRBC Flagged by Analyzer 0 % (0-5); Neutrophil # 3.09 X10^3/uL (2.7-7.7); Neutrophil % 67.3 % (47-70); Platelet Count 383 K/mm3 (150-450); RBC Distribution Width CV 13.8 % (11.6-14.6); RBC Distribution Width SD 44.8 fl (35.1-43.9); White Blood Count 4.6 K/mm3 (4.4-11.0)
[2021-08-25 14:57] LABS: AST(SGOT) 24 U/L (15-37); Alanine Aminotransfer ALT/SGPT 28 U/L (13-56); Albumin, Serum 3.4 g/dL (3.2-5.0); Alkaline Phosphatase 96 U/L (45-117); Bilirubin, Direct 0.07 mg/dL (0.00-0.30); Cholesterol 185 mg/dL (200); Globulin 3.7 g/dL (2.2-4.2); High Density Lipoprotein 77 mg/dL; Protein, Total 7.1 g/dL (6.4-8.2); Triglycerides 129 mg/dL; Very Low Density Lipoprotein 26 mg/dL (5-40)
== END ==
PROVIDERS: Nurse Practitioner Gerontology; PCP Family Medicine; Visit Provider Internal Medicine Gastroenterology
DX: K92.2 Gastrointestinal hemorrhage, unspecified (principal); E78.5 Hyperlipidemia, unspecified
CPT/HCPCS: 36415; 80061; 80076; 85025

== ENCOUNTER 2021-08-29 20:19 | Emergency (ER) | payer BC, MEDICARE, SELFPAY ==
[2021-08-29 20:20] VITALS: BP 140/52; PULSE 78; RESP 18; TEMP 36.3; O2SAT 100
--- NOTE | 2021-08-29 21:09 | EX.ED.DYSGE1 ---
HPI History of Present Illness Chief Complaint: GI Bleed Informant: patient and spouse/S.O. Narrative Narrative: 75-year-old female states that she is here for her fifth GI bleed. Her tells me that if I call her doctor I can get the history from them. So from what I am able to literally pull for the patient is that she takes Plavix for coronary artery disease and that she recently was transferred to [place] (either [facility] or [facility]) and had a procedure really went through her groin and put a clip in her illie (sp?) So I am assuming this is some type of interventional radiology procedure. Patient states that she had been doing well until this morning when she had mud-looking stool that appeared bloody. [facility]SH [facility] Medical History Abdominal bloating Angina pectoris Aortic insufficiency Aortic valve disease Atherosclerotic heart disease of [place] coronary artery without angina pectoris Atrial fibrillation Bilateral carotid artery stenosis C. 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 Migraines Non-smoker Nonspecific abnormal serum enzyme levels Osteoarthritis Palpitations Peptic ulcer disease Presence of stent in coronary artery (~04/19/21) Seasonal allergies Segmental colitis associated with diverticulosis Thyroid dysfunction TIA (transient ischemic attack) Ventricular hypertrophy Vision problem Home Medications multivitamin 1 ea PO DAILY 08/19/15 [History Last Taken 07/27/21] levothyroxine 100 mcg tablet 100 mcg PO DAILY 04/28/21 [History Last Taken 07/28/21] lisinopril 20 mg tablet 20 mg PO DAILY 04/28/21 [History Last Taken 07/27/21] metoprolol tartrate 25 mg tablet 50 mg PO BID 04/28/21 [History Last Taken 07/27/21] nitroglycerin 0.4 mg sublingual tablet 0.4 mg SUBLINGUAL Q5-15M PRN #90 tab 05/26/21 [Rx Last Taken 07/28/21] trazodone 50 mg tablet 150 mg PO QHS tab 05/26/21 [History Last Taken 07/27/21] aspirin 81 mg PO DAILY@0800 07/01/21 [History Last Taken 07/27/21] atorvastatin 40 mg PO QHS 07/01/21 [History Last Taken 07/27/21] hydrochlorothiazide 25 mg PO QDAY 07/01/21 [History Last Taken 07/27/21] potassium chloride 20 meq PO DAILY 07/01/21 [History Last Taken 07/27/21] mesalamine 400 mg capsule (with delayed release tablets inside) 400 mg PO BID #60 ea 07/14/21 [Rx Last Taken 07/27/21] clopidogrel 75 mg tablet 75 mg PO DAILY #90 tab 07/21/21 [Rx Last Taken 07/27/21] vancomycin 250 mg capsule 250 mg PO Q6H 30 Days #120 cap 08/24/21 [Rx Last Taken Unknown] pantoprazole 40 mg tablet,delayed release 40 mg PO DAILY 08/25/21 [History Last Taken Unknown] Allergy/AdvReac Type Severity Reaction Status Date / Time albuterol Allergy Intermediate GI upset Verified 08/29/21 20:22 cyclobenzaprine Allergy Intermediate mental Verified 08/29/21 20:22 [From Flexeril] status change hydrocodone [From Vicodin] Allergy Intermediate muscle Verified 08/29/21 20:22 twitching oxycodone Allergy Intermediate Vomiting Verified 08/29/21 20:22 acetaminophen [From Tylenol] AdvReac Severe Acute Verified 08/29/21 20:22 restless legs isosorbide AdvReac Severe Headaches Verified 08/29/21 20:22 codeine AdvReac Intermediate Nausea & Verified 08/29/21 20:22 Vomiting hydrochlorothiazide AdvReac Mild intolerance Verified 08/29/21 20:22 [From Dyazide] triamterene [From Dyazide] AdvReac Mild intolerance Verified 08/29/21 20:22 erythromycin base AdvReac Nausea Verified 08/29/21 20:22 Family History Mother , Age 76 heart attack Myocardial infarction Heart disease Cardiomyopathy Hypertension Osteoporosis Father , Heart Disease Age 86 Heart disease Parkinson disease CVA (cerebral vascular accident) Hypertension Unknown Thyroid disorder Stomach ulcer Surgical History History of appendectomy History of colonoscopy (~08/2020) History of coronary artery stent placement History of esophagogastroduodenoscopy (EGD) (~08/2020) History of hysterectomy History of thyroidectomy Presence of coronary angioplasty implant and graft (~09/01/15) Social History household members: spouse Smoking Status: Never smoker alcohol intake: current alcohol intake frequency: holidays/special occasions only Alcohol type: wine substance use type: does not use caffeine: Yes Type: coffee Number of servings: 3 what type of physical activity do you participate in: walking frequency: 5-6 times per week seatbelt use: always do you feel safe at home: Yes ROS ROS ED Constitutional Constitutional ED: Denies chills or weight loss Eyes Eyes: Denies change in vision or diplopia ENT ENT ED: Denies ear pain, rhinorrhea or sore throat Cardiovascular Cardiovascular: Denies chest pain, orthopnea, palpitations or racing heartbeat Respiratory/Chest Respiratory/Chest: Denies cough, dyspnea or orthopnea Gastrointestinal Gastrointestinal: Reports other Details: See history of present illness ; Denies abdominal pain, diarrhea, nausea or vomiting Genitourinary Genitourinary ED: Denies dysuria, hematuria or urinary frequency Musculoskeletal Musculoskeletal: Denies arthralgias or myalgias Integumentary Denies abscess or rash Neurologic Neurologic: Denies headache(s) or weakness Psychiatric Psychiatric: Denies anxiety, depression, suicidal ideation or suicidal thoughts Endocrine Endocrinology: Denies polydipsia, polyphagia or polyuria Allergic/Immunologic Allergic/Immunologic ED: Denies mouth swelling, tongue swelling or urticaria EXAM Physical Exam Const Vital Signs: 08/29/21 20:20 08/29/21 20:27 08/29/21 21:20 Temperature 97.4 F L Temperature Source Temporal Pulse Rate 78 71 Respiratory Rate 18 16 Respiratory Effort Normal Non-Labored Blood Pressure 140/52 H 124/57 H Blood Pressure Mean 81 79 Pulse Ox 100 97 Oxygen Delivery Method Room Air Room Air 08/29/21 22:00 Temperature Temperature Source Pulse Rate 66 Respiratory Rate Respiratory Effort Blood Pressure 116/49 L Blood Pressure Mean 71 Pulse Ox Oxygen Delivery Method Positive well nourished and well developed General Appearance ED: well developed HEENT Reports normocephalic, head/scalp atraumatic, TM's clear and moist mucous membranes Negative for trauma Tympanic Membrane ED: Yes TM's clear Eyes PERRL and EOMs intact bilaterally Neck no lymphadenopathy, supple and no JVD Resp normal respiratory effort and clear to auscultation bilaterally Cardio regular rate, regular rhythm and no murmurs GI normal to inspection, nondistended, normoactive bowel sounds and non-tender Palpation: soft Back/Spine no CVA tenderness and normal ROM Extremity normal to inspection General Extremety ED: Negative for edema General Extremity: Negative for edema Neuro oriented x3 and CN's II-XII intact bilaterally Sensorium / Orientation: alert Motor Exam: strength 5/5 throughout Psych mental status grossly normal Mood & Affect: Negative for depressed or tearful Skin no rashes or lesions noted and no wounds MDM MDM MDM Narrative Medical decision making narrative: Hemoglobin 9.6. Coags obtained and normal. BUN of 25 with creatinine 1.03. Normal lactic acid. Hemoccult positive and I can describe this as a brick red thick liquid though in small amounts. 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 Garcia, who has requested a CTA of the abdomen pelvis. She has a history of small bowel AVMs requiring IR and the plan set forth will be that if there is evidence of hemorrhage into the small bowel and the CTA that she would need to be transferred for possible IR and if there is not evidence of hemorrhage then she would be admitted overnight for observation. Lab Data Attestation: I reviewed the patient's lab results. Labs: Laboratory Results - last 24 hr 08/29/21 08/29/21 08/29/21 20:35 20:35 20:35 WBC 5.2 RBC 3.50 L Hgb 9.6 L Hct 29.9 L MCV 85.4 MCH 27.4 MCHC 32.1 RDW Std Deviation 43.4 RDW Coeff of Jase 14.0 Plt Count 345 MPV 8.4 Immature Gran % (Auto) 0.200 Neut % (Auto) 55.9 Lymph % (Auto) 31.1 [place] % (Auto) 11.2 H Eos % (Auto) 1.2 Baso % (Auto) 0.4 Absolute Neuts (auto) 2.9 Absolute Lymphs (auto) 1.61 Nucleated RBC % 0 PT 12.5 INR 1.0 APTT 29.9 Sodium 138 Potassium 3.2 L Chloride 101 Carbon Dioxide 31.0 Anion Gap 6 BUN 25 H Creatinine 1.03 H Estim Creat Clear Calc 37.60 Est GFR (MDRD) Af Amer 67 Est GFR (MDRD) Non-Af 55 L BUN/Creatinine Ratio 24.3 H Glucose 84 Lactic Acid Calcium 8.9 Total Bilirubin 0.20 Direct Bilirubin 0.07 AST 19 ALT 24 Alkaline Phosphatase 87 Total Protein 6.8 Albumin 3.2 Globulin 3.6 Lipase 137 08/29/21 20:35 WBC RBC Hgb Hct MCV MCH MCHC RDW Std Deviation RDW Coeff of Jase Plt Count MPV Immature Gran % (Auto) Neut % (Auto) Lymph % (Auto) [place] % (Auto) Eos % (Auto) Baso % (Auto) Absolute Neuts (auto) Absolute Lymphs (auto) Nucleated RBC % PT INR APTT Sodium Potassium Chloride Carbon Dioxide Anion Gap BUN Creatinine Estim Creat Clear Calc Est GFR (MDRD) Af Amer Est GFR (MDRD) Non-Af BUN/Creatinine Ratio Glucose Lactic Acid 1.0 Calcium Total Bilirubin Direct Bilirubin AST ALT Alkaline Phosphatase Total Protein Albumin Globulin Lipase EKG Initial EKG: Attestation: I personally reviewed and interpreted this EKG as follows: Comments: Normal sinus rhythm with a ventricular rate of 72 bpm Prior EKG tracings: available for review Prior: Unchanged Discharge Plan Triage Chief Complaint: GI Bleed ED Provider: Harris James Dx/Rx/DC Orders Clinical Impression: GI bleed Prescriptions: No Action nitroglycerin 0.4 mg tablet, sublingual 0.4 mg sublingual Q5-15M PRN (Reason: chest pain) Qty: 90 RF: 3 pantoprazole 40 mg tablet,delayed release (DR/EC) 40 mg PO DAILY RF: 0 clopidogrel 75 mg tablet 75 mg PO DAILY Qty: 90 RF: 3 vancomycin 250 mg capsule 250 mg PO Q6H 30 Days Qty: 120 RF: 0 multivitamin 1 EACH tablet 1 ea PO DAILY RF: 0 trazodone 50 mg tablet 150 mg PO QHS RF: 0 hydrochlorothiazide 25 mg tablet 25 mg PO QDAY RF: 0 atorvastatin 40 mg tablet 40 mg PO QHS RF: 0 aspirin 81 MG tablet,chewable 81 mg PO DAILY@0800 RF: 0 potassium chloride 20 mEq tablet extended release 20 meq PO DAILY RF: 0 metoprolol tartrate 25 mg tablet 50 mg PO BID RF: 0 lisinopril 20 mg tablet 20 mg PO DAILY RF: 0 levothyroxine 100 mcg tablet 100 mcg PO DAILY RF: 0 mesalamine 400 mg capsule (with del rel tablets) 400 mg PO BID Qty: 60 RF: 0 Primary Care Provider: Smith Orozco Referrals: Smith Orozco MD [Primary Care Provider] -
[2021-08-29 21:20] VITALS: BP 124/57; PULSE 71; RESP 16; O2SAT 97
[2021-08-29 21:23] LABS: Absolute Lymphocyte Count 1.61 X10^3/uL (0.83-4.51); Absolute Neutrophil Count 2.9 X10^3/uL (2.0-7.7); Basophil# 0.02 X10^3/uL; Basophil% 0.4 % (0-1); Eosinophil# 0.06 X10^3/uL; Eosinophils% 1.2 % (0-5); Hematocrit 29.9 % (37-47); Hemoglobin 9.6 g/dL (12.0-15.0); Lymphocyte # 1.61 X10^3/ul (0.83-4.51); Lymphocyte % 31.1 % (19-41); Mean Corp Hgb Conc 32.1 g/dL (32-36); Mean Corpuscular Hgb 27.4 pg (27.0-32.0); Mean Corpuscular Volume 85.4 fL (81-99); Mean Platelet Vol. 8.4 fl (6.2-12.0); Monocyte# 0.58 X10^3/uL; Monocyte% 11.2 % (0-10); NRBC Flagged by Analyzer 0 % (0-5); Neutrophil % 55.9 % (47-70); Platelet Count 345 K/mm3 (150-450); RBC Distribution Width SD 43.4 fl (35.1-43.9); White Blood Count 5.2 K/mm3 (4.4-11.0)
[2021-08-29 21:33] LABS: Prothrombin Time (Protime)PT. 12.5 SECONDS (11.7-14.9)
[2021-08-29 21:34] LABS: Partial Thromboplast Time 29.9 Seconds (24.1-36.2)
[2021-08-29 21:36] LABS: AST(SGOT) 19 U/L (15-37); Alanine Aminotransfer ALT/SGPT 24 U/L (13-56); Albumin, Serum 3.2 g/dL (3.2-5.0); Alkaline Phosphatase 87 U/L (45-117); Anion Gap 6 (5-15); BUN 25 mg/dL (7-18); BUN/Creat Ratio 24.3 RATIO (10-20); Bilirubin, Direct 0.07 mg/dL (0.00-0.30); Calcium,Total 8.9 mg/dL (8.5-10.1); Chloride 101 mmol/L (98-107); Creatinine, Serum 1.03 mg/dL (0.55-1.02); EST Glomerular Filtration Rate 55 mL/min (>60); Est Glom Filt Rate - Afr Amer 67 mL/min (>60); Globulin 3.6 g/dL (2.2-4.2); Glucose 84 mg/dL (74-106); Lipase 137 U/L (73-393); Potassium 3.2 mmol/L (3.5-5.1); Protein, Total 6.8 g/dL (6.4-8.2); Sodium Level 138 mmol/L (136-145)
--- NOTE | 2021-08-29 21:49 | EKG12_ITS ---
Test Reason : CP Blood Pressure : / mmHG Vent. Rate : 072 BPM Atrial Rate : 072 BPM P-R Int : 186 ms QRS Dur : 070 ms QT Int : 390 ms P-R-T Axes : 062 043 050 degrees QTc Int : 427 ms Normal sinus rhythm Normal ECG Confirmed by VENICE KELLY MD ([id number]), medical transcription editor MENDOZA ACOSTA ([id number]) on 08/30/2021 11:34:34 AM Referred By: JUAN R Confirmed By:VENICE KELLY MD
[2021-08-29 22:00] VITALS: BP 116/49; PULSE 66
[2021-08-30 00:17] VITALS: RESP 16
[2021-08-30] MEDS: DiphenhydrAMINE 50 MG/ML Syringe 25 MG IV (01:06)
--- NOTE | 2021-08-30 01:10 | ED.RN ---
pt was c/o twitchying and itching and she blamed the ct scan dye,gave her Benadryl and then she started c/o n/t in her legs/feet.pt calmed down and better.
[2021-08-30 01:18] VITALS: BP 159/59; PULSE 93; RESP 18; O2SAT 100
[2021-08-30 02:11] VITALS: PULSE 83; RESP 16; O2SAT 98
[2021-08-30 03:53] VITALS: BP 143/63; PULSE 82; RESP 16; TEMP 36.7; O2SAT 99
--- NOTE | 2021-08-30 23:48 | CT_ITS ---
INDICATION: GI Bleed -- Hx of small bowel AVM requiring IR embolization EXAMINATION: CTA ABDOMEN AND PELVIS WITH ORAL CONTRAST - CTA Abdomen and Pelvis WO/W Contrast Injection TECHNIQUE: Multiple axial images were obtained of the abdomen and pelvis following oral contrast. No IV contrast was administered. A radiation dose optimization technique was used for this scan. 3D MIP reconstructions were performed. IV Contrast dosage and agent: None. Oral contrast: No COMPARISON: CT abdomen pelvis from 07/28/2021 FINDINGS: LOWER CHEST: Lung bases demonstrate stable small subpleural left lower lobe opacity which may be due to underlying scarring or atelectasis.. No cardiomegaly or pericardial effusion. LIVER: Homogeneous. No focal mass. GALLBLADDER AND BILIARY TREE: No calcified gallstones. No gallbladder distension or wall edema. No intra- or extrahepatic biliary ductal dilation. PANCREAS: No focal cystic or solid mass. SPLEEN: Normal size without focal cystic or solid mass. ADRENAL GLANDS: Stable right adrenal gland nodule measuring 2 cm. Normal left adrenal gland. KIDNEYS AND URETERS: Normal renal size and position. No hydronephrosis. PERITONEUM: No ascites or free air. No other fluid collection. BOWEL: No evidence of acute appendicitis. No stomach or bowel distension. No focal inflammatory change. The appendix is not visualized. Small 1 cm linear hyperdensity in a small bowel loop in the left lower quadrant likely due to ingested material, series 2 image 16. LYMPH NODES: No enlarged mesenteric or retroperitoneal lymph nodes. VESSELS: Aorta is non-dilated. There is diffuse scattered calcified atherosclerotic plaque throughout the abdominal aorta. No evidence for contrast extravasation. URINARY BLADDER: Unremarkable. REPRODUCTIVE ORGANS: No pelvic masses. ABDOMINAL WALL: No discrete abdominal or pelvic wall hernia. BONES: No lytic or blastic abnormality. There is degenerative changes of the lumbar spine. CT/CT ANGIO ABD&PEL W/O&W/DYE IMPRESSION: Negative CTA abdomen and pelvis. No evidence for contrast extravasation to suggest GI hemorrhage. No aneurysm. No significant interval change. 2 cm right adrenal gland nodule stable from prior studies likely adenoma however incompletely characterized. Consider follow-up CT or MRI adrenal mass protocol for further characterization. Electronically Signed: Nik Lee MD at 0:49 EST Tel , Service support ,
== END 2021-08-30 04:23 | disposition short-term general hospital (02) ==
PROVIDERS: Emergency Provider Emergency Medicine; PCP Family Medicine
DX: K92.2 Gastrointestinal hemorrhage, unspecified (principal); L29.9 Pruritus, unspecified; I25.10 Atherosclerotic heart disease of native coronary artery without angina pectoris; I35.1 Nonrheumatic aortic (valve) insufficiency; I10 Essential (primary) hypertension; E78.5 Hyperlipidemia, unspecified; E03.9 Hypothyroidism, unspecified; G47.00 Insomnia, unspecified; R13.10 Dysphagia, unspecified; K21.9 Gastro-esophageal reflux disease without esophagitis; Z79.02 Long term (current) use of antithrombotics/antiplatelets; Z79.82 Long term (current) use of aspirin; Z79.890 Hormone replacement therapy; Z79.899 Other long term (current) drug therapy; Z95.5 Presence of coronary angioplasty implant and graft
CPT/HCPCS: 74174; 80048; 80076; 82274; 83605; 83690; 85025; 85610; 85730; 93005; 96374; 99285; Q9967; A4216

== ENCOUNTER 2021-09-20 07:10 | Outpatient (CLI) | payer BC, MEDICARE, SELFPAY ==
--- NOTE | 2021-09-20 10:18 | STRESSREP ---
Stress Test Report Date: 09-20-2021 Procedure: Pharmacologic stress nuclear imaging study Indications: Chest pain; CAD; PCI Consent: Per the patient Procedure: The patient underwent pharmacologic (Regadenoson 0.4mg ) evaluation with a peak heart rate of 83 beats per minute (57%predicted maximal heart rate) and a peak blood pressure of 198/88 mmHg. The baseline ECG demonstrated sinus bradycardia. The peak pharmacologic ECG demonstrated no obvious ECG changes. There were no cardiac dysrhythmias pretest, during pharmacologic infusion, or recovery. There was no complaint of chest discomfort during pharmacologic infusion or recovery. The examination was discontinued secondary to completion of protocol. Impression: 1. Pharmacologic (Regadenoson) evaluation 2. Peak pharmacologic ECG with no obvious ECG changes. 3. There were no cardiac dysrhythmias pretest, during pharmacologic infusion, or recovery. 4. Nuclear images pending Myocardial perfusion imaging study: Technique: The patient was injected with 11.3 millicuries of technetium 99m Cardiolite and subsequently rest SPECT Cardiolite nuclear imaging was obtained in the horizontal long, vertical long, and short axis views. The patient underwent pharmacologic (Regadenoson) evaluation with a peak heart rate of 83 beats per minute (57% percent predicted maximal heart rate) and a peak blood pressure of 198/88 mmHg. The patient was injected with 32.1 millicuries of technetium 99m Cardiolite and subsequently stress SPECT Cardiolite nuclear imaging was obtained in the horizontal long, vertical long, and short axis views. A gated Cardiolite study at peak stress was obtained. Interpretation: Rest and stress SPECT Cardiolite nuclear imaging status post realignment, normalization, and attenuation correction demonstrate relative uniform tracer uptake and myocardial perfusion appearing within normal limits. There is end systolic thickening and brightening. The gated Cardiolite study demonstrates myocardial thickening and inward wall motion. The reported LVEF is 91%. Impression: 1. Rest and stress SPECT Cardiolite nuclear imaging demonstrate relative uniform tracer uptake and myocardial perfusion appearing within normal limits. 2. The gated Cardiolite study reports an LVEF of 91%. This note was generated with [employer] software. It may contain incorrect words, spelling, and punctuation that were not noted in checking the note before signing.
== END 2021-09-20 23:59 | disposition short-term general hospital (02) ==
LOC: CVS 07:11
PROVIDERS: PCP Family Medicine; Referring Provider Nurse Practitioner Gerontology; Visit Provider Nurse Practitioner Gerontology
DX: R07.9 Chest pain, unspecified (principal)
CPT/HCPCS: 78452; 93017; 93225; 93226; A9500; A4216; J2785

== ENCOUNTER 2021-10-08 12:36 | Outpatient (CLI) | payer BC, MEDICARE, SELFPAY ==
[2021-10-08 13:09] LABS: Absolute Lymphocyte Count 0.83 X10^3/uL (0.83-4.51); Absolute Neutrophil Count 2.6 X10^3/uL (2.0-7.7); Basophil# 0.01 X10^3/uL; Basophil% 0.3 % (0-1); Eosinophil# 0.09 X10^3/uL; Eosinophils% 2.3 % (0-5); Hematocrit 36.6 % (37-47); Hemoglobin 11.9 g/dL (12.0-15.0); Lymphocyte # 0.83 X10^3/ul (0.83-4.51); Mean Corp Hgb Conc 32.5 g/dL (32-36); Mean Corpuscular Hgb 27.4 pg (27.0-32.0); Mean Corpuscular Volume 84.1 fL (81-99); Mean Platelet Vol. 9.1 fl (6.2-12.0); Monocyte# 0.46 X10^3/uL; Monocyte% 11.6 % (0-10); NRBC Flagged by Analyzer 0 % (0-5); Neutrophil # 2.56 X10^3/uL (2.7-7.7); Neutrophil % 64.5 % (47-70); Platelet Count 250 K/mm3 (150-450); RBC Distribution Width CV 14.7 % (11.6-14.6); RBC Distribution Width SD 45.4 fl (35.1-43.9); Red Blood Count 4.35 M/mm3 (4.2-5.4)
[2021-10-08 13:43] LABS: AST(SGOT) 19 U/L (15-37); Alanine Aminotransfer ALT/SGPT 20 U/L (13-56); Albumin, Serum 3.4 g/dL (3.2-5.0); Alkaline Phosphatase 80 U/L (45-117); Anion Gap 2 (5-15); BUN 19 mg/dL (7-18); BUN/Creat Ratio 19.8 RATIO (10-20); Calcium,Total 8.8 mg/dL (8.5-10.1); Chloride 105 mmol/L (98-107); Creatinine, Serum 0.96 mg/dL (0.55-1.02); EST Glomerular Filtration Rate 60 mL/min (>60); Est Glom Filt Rate - Afr Amer 73 mL/min (>60); Globulin 3.3 g/dL (2.2-4.2); Glucose 101 mg/dL (74-106); Potassium 4.4 mmol/L (3.5-5.1); Protein, Total 6.7 g/dL (6.4-8.2); Sodium Level 137 mmol/L (136-145)
[2021-10-08 13:49] LABS: Ferritin 18 ng/mL (8-252); Iron 85 ug/dL (50-170); Iron Binding Capacity,Total 407 ug/dL (250-450); PERCENT IRON SATURATION 20.9 % (15.0-55.0)
== END 2021-10-08 23:59 | disposition short-term general hospital (02) ==
LOC: LAB 12:38
PROVIDERS: PCP Family Medicine; Referring Provider Internal Medicine Gastroenterology; Visit Provider Internal Medicine Gastroenterology
DX: K92.2 Gastrointestinal hemorrhage, unspecified (principal)
CPT/HCPCS: 36415; 80053; 82728; 83540; 83550; 85025

== ENCOUNTER 2021-11-01 14:59 | Outpatient (CLI) | payer BC, MEDICARE, SELFPAY ==
--- NOTE | 2021-11-01 15:02 | CT_ITS ---
STUDY: CT BRAIN WITHOUT CONTRAST REASON FOR EXAM: Female, 76 years old. STAT Fall, headache -- on Plavix and Aspirin RADIATION DOSAGE (If Supplied By Facility): CTDIvol = ( 47.06 ) mGy, DLP = ( 855.03 ) mGycm TECHNIQUE: Transaxial CT imaging of the brain was performed without administration of intravenous contrast material. Individualized dose optimization techniques were used for this CT. COMPARISON: Comparison is made with prior study dated 12/24/2019. FINDINGS: Normal soft tissue structures. Normal calvarium. There is mild cerebral atrophy with widening of the extra-axial spaces and ventricular dilatation. Normal white matter tracts of the cerebral hemispheres. Old lacunar infarct in the body of the right caudate nucleus. Normal brainstem. Normal cerebellum. There is no intracranial hemorrhage. There are no findings of an acute ischemic infarction. Normal visualized paranasal sinuses. CT/Brain/Head without Contrast IMPRESSION: Chronic involutional changes of the brain. Electronically Signed: Chevy Fields MD at 15:32 EST ,
== END 2021-11-01 23:59 | disposition home or self-care (01) ==
LOC: CT 15:01
PROVIDERS: PCP Family Medicine; Referring Provider Nurse Practitioner Gerontology; Visit Provider Nurse Practitioner Gerontology
DX: R51.9 Headache, unspecified (principal); W19.XXXA Unspecified fall, initial encounter
CPT/HCPCS: 70450

== ENCOUNTER 2021-12-02 11:25 | Outpatient (CLI) | payer BC, MEDICARE, SELFPAY ==
[2021-12-02 15:29] LABS: AST(SGOT) 23 U/L (15-37); Alanine Aminotransfer ALT/SGPT 30 U/L (13-56); Albumin, Serum 3.9 g/dL (3.2-5.0); Alkaline Phosphatase 89 U/L (45-117); Bilirubin, Direct 0.15 mg/dL (0.00-0.30); Cholesterol 138 mg/dL (200); Globulin 3.7 g/dL (2.2-4.2); High Density Lipoprotein 67 mg/dL; Protein, Total 7.6 g/dL (6.4-8.2); Triglycerides 86 mg/dL; Very Low Density Lipoprotein 17 mg/dL (5-40)
== END 2021-12-02 23:59 | disposition home or self-care (01) ==
LOC: MTLAB 11:26
PROVIDERS: PCP Family Medicine; Referring Provider Internal Medicine Cardiovascular Disease; Visit Provider Internal Medicine Cardiovascular Disease
DX: I25.10 Atherosclerotic heart disease of native coronary artery without angina pectoris (principal); E78.5 Hyperlipidemia, unspecified
CPT/HCPCS: 36415; 80061; 80076

== ENCOUNTER → 2022-01-03 | Outpatient (CLI) | payer BC, MEDICARE, SELFPAY ==
[2022-01-03 14:36] LABS: Absolute Neutrophil Count 3.7 X10^3/uL (2.0-7.7); Basophil# 0.01 X10^3/uL; Basophil% 0.2 % (0-1); Eosinophil# 0.07 X10^3/uL; Eosinophils% 1.3 % (0-5); Hematocrit 39.1 % (37-47); Hemoglobin 13.2 g/dL (12.0-15.0); Mean Corp Hgb Conc 33.8 g/dL (32-36); Mean Corpuscular Hgb 28.9 pg (27.0-32.0); Mean Corpuscular Volume 85.6 fL (81-99); Mean Platelet Vol. 8.7 fl (6.2-12.0); Monocyte# 0.45 X10^3/uL; Monocyte% 8.3 % (0-10); NRBC Flagged by Analyzer 0 % (0-5); Neutrophil # 3.71 X10^3/uL (2.7-7.7); Platelet Count 275 K/mm3 (150-450); RBC Distribution Width CV 13.8 % (11.6-14.6); RBC Distribution Width SD 42.8 fl (35.1-43.9); RET-HE 33.4 pg (30-35); Red Blood Count 4.57 M/mm3 (4.2-5.4); Reticulocyte Count 1.35 % (0.5-1.5); White Blood Count 5.5 K/mm3 (4.4-11.0)
[2022-01-03 15:48] LABS: Ferritin 15 ng/mL (8-252); Iron Binding Capacity,Total 457 ug/dL (250-450)
[2022-01-03 19:47] LABS: Iron 127 ug/dL (50-170)
== END | disposition home or self-care (01) ==
LOC: LAB 13:52
PROVIDERS: PCP Family Medicine; Referring Provider Nurse Practitioner Adult Health; Visit Provider Nurse Practitioner Adult Health
DX: D50.9 Iron deficiency anemia, unspecified (principal); Z87.19 Personal history of other diseases of the digestive system
CPT/HCPCS: 36415; 82728; 83540; 83550; 85025; 85045

== ENCOUNTER → 2022-01-11 | Outpatient (CLI) | payer BC, MEDICARE, SELFPAY ==
--- NOTE | 2022-01-11 13:09 | CT_ITS ---
STUDY: CT CHEST WITH CONTRAST REASON FOR EXAM: Female, 76 years old. F/U MULTIPLE LUNG NODULES -- PLEASE COMPARE TO [facility] CT PET 07/2021 RADIATION DOSAGE (If Supplied By Facility): CTDIvol = ( 8.94 ) mGy, DLP = ( 179.84 ) mGycm TECHNIQUE: Transaxial imaging was performed following intravenous administration of IV 100mL Isovue-300. Individualized dose optimization techniques were used for this CT. COMPARISON: None. FINDINGS: There are nodular densities in both lung peterson which are unchanged compared to a previous study dated 08/30/2021 There is no demonstrated pleural abnormality. Normal heart and pericardium. Normal mediastinum. Normal hilar regions. Normal enhanced pulmonary arteries. Normal aorta arch and descending thoracic aorta. Normal osseous structures. There is no demonstrated abnormality of the visualized upper abdomen. CT/Chest WITH Contrast IMPRESSION: Normal enhanced CT Chest examination. Electronically Signed: Edilberto Gonzalez MD at 0:07 EDT ,
[2022-01-11 13:21] LABS: CREATININE FINGERSTICK 0.7 mg/dL (0.55-1.02); EGFR FINGERSTICK > 60.0000 mL/min (>60)
== END | disposition home or self-care (01) ==
LOC: CT 13:07
PROVIDERS: PCP Family Medicine; Referring Provider Internal Medicine Hematology & Oncology; Visit Provider Internal Medicine Hematology & Oncology
DX: R91.8 Other nonspecific abnormal finding of lung field (principal)
CPT/HCPCS: 71260; Q9967

== ENCOUNTER → 2022-01-25 | Outpatient (CLI) | payer BC, MEDICARE, SELFPAY ==
--- NOTE | 2022-01-25 14:35 | BI_ITS ---
MAMMOGRAPHY - BILATERAL SCREENING REASON FOR EXAM: Female, 76 years old. Routine annual screening examination. PERTINENT HISTORY: Non-contributory. TECHNIQUE: Digital bilateral breast long (3D mammographic acquisition) in the CC and MLO projections. 2-D mediolateral oblique (MLO) and craniocaudad (CC) views of both breasts were obtained. CAD: Full Field Digital Mammography with Computer Added Detection was performed. COMPARISON: Comparison is made with prior examination dated 01/14/2021. FINDINGS: Breast Composition: There are scattered areas of fibroglandular density. There are no dominant masses or suspicious calcifications. No other significant abnormalities are identified. There has been no significant change since the prior study. BI/SCRN MAMM (CAD)W/LONG BILAT IMPRESSION: Stable bilateral screening mammogram. Yearly follow-up mammogram recommended. (A) ASSESSMENT CATEGORY: BIRADS Category 1: Negative. A letter regarding these results will be sent to the patient by the facility within 30 days. Approximately 10% of breast cancers are not detected by mammography. A normal mammogram should not delay biopsy of a clinically suspicious abnormality. [id number] Electronically Signed: Chevy Fields MD at 15:24 EDT ,
== END | disposition home or self-care (01) ==
LOC: OPBI 14:34
PROVIDERS: PCP Family Medicine; Visit Provider Internal Medicine Hematology & Oncology
DX: Z12.31 Encounter for screening mammogram for malignant neoplasm of breast (principal)
CPT/HCPCS: 77063; 77067

== ENCOUNTER → 2022-01-28 | Outpatient (CLI) | payer BC, MEDICARE, SELFPAY ==
[2022-01-28 14:17] LABS: Absolute Neutrophil Count 2.6 X10^3/uL (2.0-7.7); Basophil# 0.01 X10^3/uL; Basophil% 0.2 % (0-1); Eosinophil# 0.07 X10^3/uL; Eosinophils% 1.6 % (0-5); Hematocrit 38.2 % (37-47); Hemoglobin 12.8 g/dL (12.0-15.0); Lymphocyte % 27.9 % (19-41); Mean Corp Hgb Conc 33.5 g/dL (32-36); Mean Corpuscular Hgb 28.6 pg (27.0-32.0); Mean Corpuscular Volume 85.3 fL (81-99); Mean Platelet Vol. 7.9 fl (6.2-12.0); Monocyte# 0.45 X10^3/uL; Monocyte% 10.5 % (0-10); NRBC Flagged by Analyzer 0 % (0-5); Neutrophil # 2.56 X10^3/uL (2.7-7.7); Neutrophil % 59.6 % (47-70); Platelet Count 231 K/mm3 (150-450); RBC Distribution Width CV 13.4 % (11.6-14.6); RBC Distribution Width SD 41.9 fl (35.1-43.9); Red Blood Count 4.48 M/mm3 (4.2-5.4); White Blood Count 4.3 K/mm3 (4.4-11.0)
[2022-01-28 14:54] LABS: ALB/GLOB Ratio 1.1 RATIO (0.9-2.4); AST(SGOT) 22 U/L (15-37); Alanine Aminotransfer ALT/SGPT 23 U/L (13-56); Albumin, Serum 3.7 g/dL (3.2-5.0); Alkaline Phosphatase 86 U/L (45-117); Anion Gap 3 (5-15); BUN 21 mg/dL (7-18); Calcium,Total 8.9 mg/dL (8.5-10.1); Chloride 104 mmol/L (98-107); EST Glomerular Filtration Rate 57 mL/min (>60); Est Glom Filt Rate - Afr Amer 69 mL/min (>60); Globulin 3.3 g/dL (2.2-4.2); Glucose 100 mg/dL (74-106); Potassium 4.3 mmol/L (3.5-5.1); Sodium Level 138 mmol/L (136-145)
== END | disposition home or self-care (01) ==
LOC: LAB 14:04
PROVIDERS: PCP Family Medicine; Visit Provider Internal Medicine Gastroenterology
DX: K92.2 Gastrointestinal hemorrhage, unspecified (principal)
CPT/HCPCS: 36415; 80053; 85025

== ENCOUNTER → 2022-03-30 | Outpatient (CLI) | payer BC, MEDICARE, SELFPAY ==
[2022-03-30 17:22] LABS: Absolute Lymphocyte Count 1.23 X10^3/uL (0.83-4.51); Absolute Neutrophil Count 3.1 X10^3/uL (2.0-7.7); Basophil# 0.01 X10^3/uL; Basophil% 0.2 % (0-1); Eosinophil# 0.07 X10^3/uL; Eosinophils% 1.4 % (0-5); Hematocrit 40.1 % (37-47); Hemoglobin 13.7 g/dL (12.0-15.0); Lymphocyte # 1.23 X10^3/ul (0.83-4.51); Lymphocyte % 25.2 % (19-41); Mean Corp Hgb Conc 34.2 g/dL (32-36); Mean Corpuscular Hgb 29.8 pg (27.0-32.0); Mean Corpuscular Volume 87.4 fL (81-99); Mean Platelet Vol. 8.5 fl (6.2-12.0); Monocyte# 0.45 X10^3/uL; Monocyte% 9.2 % (0-10); NRBC Flagged by Analyzer 0 % (0-5); Neutrophil # 3.12 X10^3/uL (2.7-7.7); Neutrophil % 63.8 % (47-70); Platelet Count 274 K/mm3 (150-450); RBC Distribution Width CV 13.1 % (11.6-14.6); RBC Distribution Width SD 41.3 fl (35.1-43.9); Red Blood Count 4.59 M/mm3 (4.2-5.4); White Blood Count 4.9 K/mm3 (4.4-11.0)
[2022-03-30 17:28] LABS: Erythrocyte Sedimentation Rate 2 mm/hr (0-30)
[2022-03-30 17:53] LABS: Vitamin B12 713 pg/mL (211-911)
[2022-03-30 18:18] LABS: AST(SGOT) 20 U/L (15-37); Alanine Aminotransfer ALT/SGPT 21 U/L (13-56); Albumin, Serum 3.6 g/dL (3.2-5.0); Alkaline Phosphatase 93 U/L (45-117); Anion Gap 6 (5-15); BUN 19 mg/dL (7-18); BUN/Creat Ratio 18.4 RATIO (10-20); CPK Total, Creatine Kinase 85 U/L (26-192); CRP < 2.90 mg/L (0.0-3.0); Calcium,Total 9.1 mg/dL (8.5-10.1); Chloride 103 mmol/L (98-107); Creatinine, Serum 1.03 mg/dL (0.55-1.02); EST Glomerular Filtration Rate 55 mL/min (>60); Est Glom Filt Rate - Afr Amer 67 mL/min (>60); Ferritin 24 ng/mL (8-252); Globulin 3.5 g/dL (2.2-4.2); Glucose 77 mg/dL (74-106); Iron 87 ug/dL (50-170); Iron Binding Capacity,Total 380 ug/dL (250-450); PERCENT IRON SATURATION 22.9 % (15.0-55.0); Potassium 4.2 mmol/L (3.5-5.1); Protein, Total 7.1 g/dL (6.4-8.2); Sodium Level 139 mmol/L (136-145); T4 Free Direct 1.23 ng/dL (0.76-1.46); Thyroid Stim Hormone (TSH) 0.29 uIU/mL (0.358-3.74)
== END | disposition home or self-care (01) ==
LOC: LAB 14:36
PROVIDERS: PCP Family Medicine; Referring Provider Nurse Practitioner Adult Health; Visit Provider Nurse Practitioner Adult Health
DX: R53.83 Other fatigue (principal); D50.0 Iron deficiency anemia secondary to blood loss (chronic); R53.1 Weakness
CPT/HCPCS: 36415; 80053; 82550; 82607; 82728; 83540; 83550; 84439; 84443; 84481; 85025; 85652; 86140

== ENCOUNTER → 2022-04-27 | Outpatient (CLI) | payer BC, MEDICARE, SELFPAY ==
[2022-05-05 04:07] LABS: Almond <0.10 kU/L (Class 0); Apple <0.10 kU/L (Class 0); Banana <0.10 kU/L (Class 0); Barley, Whole Grain <0.10 kU/L (Class 0); Beef <0.10 kU/L (Class 0); Brazil Nut <0.10 kU/L (Class 0); Carrot <0.10 kU/L (Class 0); Cashew <0.10 kU/L (Class 0); Chicken <0.10 kU/L (Class 0); Clam <0.10 kU/L (Class 0); Codfish <0.10 kU/L (Class 0); Corn <0.10 kU/L (Class 0); Crab <0.10 kU/L (Class 0); Egg, White <0.10 kU/L (Class 0); Egg, Yolk <0.10 kU/L (Class 0); Garlic <0.10 kU/L (Class 0); Gluten <0.10 kU/L (Class 0); Hazelnut/Filbert <0.10 kU/L (Class 0); Lobster <0.10 kU/L (Class 0); Milk (Cow) <0.10 kU/L (Class 0); Oat <0.10 kU/L (Class 0); Onion <0.10 kU/L (Class 0); Orange <0.10 kU/L (Class 0); Pea <0.10 kU/L (Class 0); Peach <0.10 kU/L (Class 0); Peanut <0.10 kU/L (Class 0); Pecan <0.10 kU/L (Class 0); Pork <0.10 kU/L (Class 0); Potato, White <0.10 kU/L (Class 0); Rice <0.10 kU/L (Class 0); SCALLOP <0.10 kU/L (Class 0); SESAME SEED <0.10 kU/L (Class 0); Salmon <0.10 kU/L (Class 0); Shrimp <0.10 kU/L (Class 0); Soybean <0.10 kU/L (Class 0); Strawberry <0.10 kU/L (Class 0); Tomato <0.10 kU/L (Class 0); Tuna <0.10 kU/L (Class 0); Walnut, (Food) <0.10 kU/L (Class 0); Wheat <0.10 kU/L (Class 0); Yeast <0.10 kU/L (Class 0)
[2022-05-05 09:23] LABS: Turkey <0.10 kU/L (Class 0)
== END | disposition home or self-care (01) ==
PROVIDERS: PCP Family Medicine; Visit Provider Otolaryngology
DX: T78.40XA Allergy, unspecified, initial encounter (principal)
CPT/HCPCS: 36415; 86003

== ENCOUNTER → 2022-05-04 | Outpatient (CLI) | payer BC, MEDICARE, SELFPAY ==
[2022-05-04 12:43] LABS: Absolute Lymphocyte Count 1.18 X10^3/uL (0.83-4.51); Absolute Neutrophil Count 2.8 X10^3/uL (2.0-7.7); Basophil# 0.01 X10^3/uL; Basophil% 0.2 % (0-1); Eosinophil# 0.09 X10^3/uL; Hematocrit 39.7 % (37-47); Lymphocyte # 1.18 X10^3/ul (0.83-4.51); Mean Corp Hgb Conc 35.3 g/dL (32-36); Mean Corpuscular Hgb 30.7 pg (27.0-32.0); Mean Corpuscular Volume 87.1 fL (81-99); Mean Platelet Vol. 8.1 fl (6.2-12.0); Monocyte# 0.42 X10^3/uL; Monocyte% 9.3 % (0-10); NRBC Flagged by Analyzer 0 % (0-5); Neutrophil # 2.82 X10^3/uL (2.7-7.7); Neutrophil % 62.3 % (47-70); Platelet Count 255 K/mm3 (150-450); RBC Distribution Width CV 12.6 % (11.6-14.6); RBC Distribution Width SD 40.1 fl (35.1-43.9); Red Blood Count 4.56 M/mm3 (4.2-5.4); White Blood Count 4.5 K/mm3 (4.4-11.0)
[2022-05-04 13:35] LABS: BNP,B-Type NATRIURETIC PEPTIDE 66.9 pg/mL (0-100)
[2022-05-04 13:36] LABS: Anion Gap 4 (5-15); BUN 17 mg/dL (7-18); Chloride 103 mmol/L (98-107); Creatinine, Serum 0.85 mg/dL (0.55-1.02); EST Glomerular Filtration Rate 69 mL/min (>60); Est Glom Filt Rate - Afr Amer 84 mL/min (>60); Free T3 2.5 pg/mL (2.18-3.98); Glucose 82 mg/dL (74-106); Potassium 4.3 mmol/L (3.5-5.1); Sodium Level 138 mmol/L (136-145); T4 Free Direct 1.33 ng/dL (0.76-1.46); Thyroid Stim Hormone (TSH) 0.14 uIU/mL (0.358-3.74)
== END | disposition home or self-care (01) ==
PROVIDERS: PCP Family Medicine; Visit Provider Nurse Practitioner Gerontology
DX: R06.02 Shortness of breath (principal); R53.83 Other fatigue
CPT/HCPCS: 36415; 80048; 83880; 84439; 84443; 84481; 85025

== ENCOUNTER → 2022-09-14 | Outpatient (CLI) | payer BC, MEDICARE, SELFPAY ==
[2022-09-14 14:32] LABS: Lyme Ab Screen Interpretation REF LAB
[2022-09-16 20:05] LABS: Lyme Scn Total Ab w/Rflx Negative (Negative)
== END | disposition home or self-care (01) ==
LOC: MTLAB 14:21
PROVIDERS: PCP Family Medicine; Referring Provider Dermatology; Visit Provider Dermatology
DX: I83.92 Asymptomatic varicose veins of left lower extremity (principal); L57.0 Actinic keratosis; L57.8 Other skin changes due to chronic exposure to nonionizing radiation; L81.0 Postinflammatory hyperpigmentation; S20.369A Insect bite (nonvenomous) of unspecified front wall of thorax, initial encounter; Z48.817 Encounter for surgical aftercare following surgery on the skin and subcutaneous tissue
CPT/HCPCS: 36415; 86618

== ENCOUNTER → 2022-09-28 | Outpatient (CLI) | payer BC, MEDICARE, SELFPAY ==
--- NOTE | 2022-09-28 07:06 | ECHOD_ITS ---
Reason For Study: CAD/ASHD Procedure This was a 2D Doppler, Color Flow transthoracic echocardiogram. Exam performed in department. Left Ventricle Normal LV size. Left ventricular systolic function is normal. The estimated ejection fraction is 65 %. No evidence for diastolic dysfunction. No regional wall motion abnormalities noted. Right Ventricle Normal RV size. Normal systolic function. Atria Normal left atrium. Normal right atrium. No doppler evidence for ASD. Mitral Valve There is mild mitral annular calcification. Mild diffuse mitral valve thickening. Mild (1+) mitral valve insufficiency. Tricuspid Valve Normal tricuspid valve. Mild tricuspid valve insufficiency. Right ventricular systolic pressure estimated to be 27 mmHg. Aortic Valve Trisinus/trileaflet aortic valve. Moderate focal aortic valve thickening. Moderate focal aortic valve calcification. Pulmonic Valve The pulmonic valve is not well visualized. Mild-Moderate (1-2+) pulmonic valve insufficiency. Great Vessels Normal sized aortic root. Pericardium/Pleural No pericardial effusion. MMode/2D Measurements & Calculations LVIDd: 3.5 cm IVSd: 0.94 cm Ao root diam: 3.1 cm LVIDs: 2.3 cm LVPWd: 1.1 cm LA dimension: 3.3 cm RVDd: 2.8 cm FS: 36.1 % LAV(MOD-bp): 37.2 ml LA A4 area: 14.3 cm2 RA A4 area: 10.0 cm2 LAV(MOD-bp) Indexed: 23.9 ml/m2 LAV(MOD-sp2): 38.9 ml LAV(MOD-sp4): 35.0 ml Time Measurements MV dec time: 0.27 sec Doppler Measurements & Calculations MV E max galen: 67.8 cm/sec Lat Peak E' Galen: 6.6 cm/sec Med Peak E' Galen: 5.6 cm/sec MV A max galen: 89.9 cm/sec E/E' lat: 10.3 E/E' med: 12.2 MV E/A: 0.75 MV V2 max: 105.1 cm/sec MV P1/2t max galen: 66.3 cm/sec Ao V2 max: 121.5 cm/sec MV max P.4 mmHg MV P1/2t: 84.7 msec Ao max P.9 mmHg MV V2 mean: 52.1 cm/sec MV dec slope: 229.3 cm/sec2 Ao V2 mean: 90.1 cm/sec MV mean P.3 mmHg MVA(P1/2t): 2.6 cm2 Ao mean P.6 mmHg MV V2 VTI: 32.8 cm Ao V2 VTI: 35.8 cm AV (velocity ratio): 0.73 AI max galen: 429.7 cm/sec LV V1 max: 90.8 cm/sec MR max galen: 716.2 cm/sec AI max P.0 mmHg LV V1 max P.3 mmHg MR max P.2 mmHg LV V1 mean P.0 mmHg AI dec slope: 202.3 cm/sec2 LV V1 mean: 65.5 cm/sec AI P1/2t: 622.2 msec LV V1 VTI: 26.1 cm PA V2 max: 69.6 cm/sec TR max galen: 247.2 cm/sec PI dec slope: 138.5 cm/sec2 TR max P.4 mmHg ECHO/Echo Complete Interpretation Summary Left ventricular systolic function is normal. The estimated ejection fraction is 65 %. There is mild mitral annular calcification. Mild diffuse mitral valve thickening. Mild (1+) mitral valve insufficiency. Mild tricuspid valve insufficiency. Moderate focal aortic valve thickening. Moderate focal aortic valve calcification. Mild-Moderate (1-2+) pulmonic valve insufficiency. Right ventricular systolic pressure estimated to be 27 mmHg. No evidence for diastolic dysfunction. Ordering Physician: Nicholas Max Referring Physician: Nicholas Max Performed By: Gadiel Fox RCS
--- NOTE | 2022-09-28 09:54 | STRESSREP ---
Stress Test Report Date: 09-28-2022 Procedure: Pharmacologic stress nuclear imaging study Indications: Chest pain; angina pectoris; CAD; status post PCI; atrial fibrillation Consent: Per the patient Procedure: The patient underwent pharmacologic (Regadenoson 0.4mg ) evaluation with a peak heart rate of 77 beats per minute (53%predicted maximal heart rate) and a resting blood pressure of 132/78 mmHg and a peak blood pressure of 132/78 mmHg. The baseline ECG demonstrated sinus bradycardia. The peak pharmacologic ECG demonstrated no obvious ECG changes. There were no cardiac dysrhythmias pretest, during pharmacologic infusion, or recovery. There was no complaint of chest discomfort during pharmacologic infusion or recovery. The examination was discontinued secondary to completion of protocol. Impression: 1. Pharmacologic (Regadenoson) evaluation 2. Peak pharmacologic ECG with no obvious ECG changes. 3. There were no cardiac dysrhythmias pretest, during pharmacologic infusion, or recovery. 4. Nuclear images pending Myocardial perfusion imaging study: Technique: The patient was injected with 11.1 millicuries of technetium 99m Cardiolite and subsequently rest SPECT Cardiolite nuclear imaging was obtained in the horizontal long, vertical long, and short axis views. The patient underwent pharmacologic (Regadenoson) evaluation with a peak heart rate of 77 beats per minute (53% percent predicted maximal heart rate) and a resting blood pressure of 132/78 mmHg and a peak blood pressure of 132/78 mmHg. The patient was injected with 32.7 millicuries of technetium 99m Cardiolite and subsequently stress SPECT Cardiolite nuclear imaging was obtained in the horizontal long, vertical long, and short axis views. A gated Cardiolite study at peak stress was obtained. Interpretation: Rest and stress SPECT Cardiolite nuclear imaging status post realignment, normalization, and attenuation correction demonstrate the appearance of body motion during image acquisition and otherwise relative uniform tracer uptake at rest and stress. There is end systolic thickening and brightening. The gated Cardiolite study demonstrates myocardial thickening and inward wall motion. The reported LVEF is 88%. Impression: 1. Rest and stress SPECT Cardiolite nuclear imaging demonstrate relative uniform tracer uptake and myocardial perfusion appearing within normal limits. 2. The gated Cardiolite study reports an LVEF of 88%. This note was generated with [employer] software. It may contain incorrect words, spelling, and punctuation that were not noted in checking the note before signing.
--- NOTE | 2022-09-28 10:06 | CDU_ITS ---
Reason For Study: Carotid Stenosis Rt. Velocities/BP Lt. Velocities/BP Prox CCA 53/12 cm/sec. Prox CCA 75/14 cm/sec. Mid CCA 58/13 cm/sec. Mid CCA 61/12 cm/sec. Dist CCA 99/17 cm/sec. Dist CCA 63/15 cm/sec. Prox ICA 181/30 cm/sec. Prox ICA 69/17 cm/sec. Mid ICA 158/18 cm/sec. Mid ICA 113/29 cm/sec. Dist ICA 95/22 cm/sec. Dist ICA 84/24 cm/sec. Rt. ICA/CCA = 3.1. Lt. ICA/CCA = 1.8. Prox ECA 145/5 cm/sec. Prox ECA 72 cm/sec. Rt. Vert. 59/10 cm/sec. Lt. Vert. 52/12 cm/sec. Right Extracranial There is heterogeneous, irregular atherosclerotic plaque noted in the right common carotid artery. There is heterogeneous, irregular atherosclerotic plaque noted in the right internal carotid artery. There is heterogeneous, irregular atherosclerotic plaque noted in the right external carotid artery. The atherosclerotic plaque causes acoustic shadowing. Antegrade flow is noted in the right vertebral artery. Left Extracranial There is heterogeneous, irregular atherosclerotic plaque noted in the left common carotid artery. There is heterogeneous, irregular atherosclerotic plaque noted in the left internal carotid artery. There is heterogeneous, irregular atherosclerotic plaque noted in the left external carotid artery. Antegrade flow is noted in the left vertebral artery. Procedure Carotid Duplex 26856. This is a Carotid Duplex examination using B-mode, color flow and specral Doppler. Exam performed in department. VL/Carotid Duplex Ultrasound Interpretation Summary Moderate (50-69%) stenosis right extracranial internal carotid. Mild (<50%) stenosis left extracranial internal carotid. Patent and antegrade vertebrals bilaterally. Ordering Physician: Nicholas Max Referring Physician: Smith Orozco Performed By: Tamiko Singh, RDCS, RVT
== END | disposition home or self-care (01) ==
LOC: CVS 07:02
PROVIDERS: PCP Family Medicine; Referring Provider Internal Medicine Cardiovascular Disease; Visit Provider Internal Medicine Cardiovascular Disease
DX: I65.23 Occlusion and stenosis of bilateral carotid arteries (principal); I48.91 Unspecified atrial fibrillation; I20.9 Angina pectoris, unspecified; R00.2 Palpitations; R07.89 Other chest pain; R53.83 Other fatigue; R06.02 Shortness of breath; E78.5 Hyperlipidemia, unspecified; I10 Essential (primary) hypertension; I35.9 Nonrheumatic aortic valve disorder, unspecified
CPT/HCPCS: 78452; 93017; 93225; 93226; 93306; 93880; A9500; A4216; J2785

== ENCOUNTER → 2022-12-07 | Outpatient (CLI) | payer BC, MEDICARE, SELFPAY ==
[2022-12-07 13:37] LABS: Absolute Lymphocyte Count 1.03 X10^3/uL (0.83-4.51); Absolute Neutrophil Count 3.1 X10^3/uL (2.0-7.7); Basophil# 0.02 X10^3/uL; Basophil% 0.4 % (0-1); Eosinophil# 0.12 X10^3/uL; Eosinophils% 2.5 % (0-5); Hematocrit 42.6 % (37-47); Hemoglobin 14.5 g/dL (12.0-15.0); Lymphocyte # 1.03 X10^3/ul (0.83-4.51); Lymphocyte % 21.8 % (19-41); Mean Corpuscular Hgb 30.6 pg (27.0-32.0); Mean Corpuscular Volume 89.9 fL (81-99); Mean Platelet Vol. 8.3 fl (6.2-12.0); Monocyte% 10.6 % (0-10); NRBC Flagged by Analyzer 0 % (0-5); Neutrophil # 3.05 X10^3/uL (2.7-7.7); Neutrophil % 64.5 % (47-70); Platelet Count 231 K/mm3 (150-450); RBC Distribution Width CV 12.5 % (11.6-14.6); RBC Distribution Width SD 41.6 fl (35.1-43.9); Red Blood Count 4.74 M/mm3 (4.2-5.4); White Blood Count 4.7 K/mm3 (4.4-11.0)
[2022-12-07 14:20] LABS: BNP,B-Type NATRIURETIC PEPTIDE 102.1 pg/mL (0-100)
[2022-12-07 14:29] LABS: Anion Gap 3 (5-15); BUN 16 mg/dL (7-18); BUN/Creat Ratio 19.5 RATIO (10-20); Calcium,Total 8.9 mg/dL (8.5-10.1); Chloride 108 mmol/L (98-107); Creatinine, Serum 0.82 mg/dL (0.55-1.02); EST Glomerular Filtration Rate 72 mL/min (>60); Est Glom Filt Rate - Afr Amer 87 mL/min (>60); Glucose 90 mg/dL (74-106); Potassium 3.9 mmol/L (3.5-5.1); Sodium Level 141 mmol/L (136-145); T4 Free Direct 1.06 ng/dL (0.76-1.46)
== END | disposition home or self-care (01) ==
LOC: LAB 12:28
PROVIDERS: PCP Family Medicine; Referring Provider Nurse Practitioner Gerontology; Visit Provider Nurse Practitioner Gerontology
DX: R06.09 Other forms of dyspnea (principal); R53.83 Other fatigue
CPT/HCPCS: 36415; 80048; 83880; 84439; 84443; 84481; 85025

== ENCOUNTER → 2023-04-12 | Outpatient (CLI) | payer BC, MEDICARE, SELFPAY ==
[2023-04-12 14:03] LABS: Anion Gap 4 (5-15); BUN 16 mg/dL (7-18); BUN/Creat Ratio 15.7 RATIO (10-20); Chloride 99 mmol/L (98-107); Creatinine, Serum 1.02 mg/dL (0.55-1.02); EST Glomerular Filtration Rate 56 mL/min (>60); Est Glom Filt Rate - Afr Amer 67 mL/min (>60); Glucose 107 mg/dL (74-106); Potassium 3.9 mmol/L (3.5-5.1); Sodium Level 133 mmol/L (136-145)
[2023-04-14 10:45] LABS: Thyroid Stim Hormone (TSH) 0.66 uIU/mL (0.358-3.74)
== END | disposition home or self-care (01) ==
LOC: LAB 12:31
PROVIDERS: PCP Family Medicine; Referring Provider Nurse Practitioner Gerontology; Visit Provider Nurse Practitioner Gerontology
DX: E89.0 Postprocedural hypothyroidism (principal); Z51.81 Encounter for therapeutic drug level monitoring; Z79.899 Other long term (current) drug therapy
CPT/HCPCS: 36415; 80048; 84443

== ENCOUNTER → 2023-04-26 | Outpatient (CLI) | payer BC, MEDICARE, SELFPAY ==
--- NOTE | 2023-04-26 13:11 | BI_ITS ---
MAMMOGRAPHY - BILATERAL SCREENING REASON FOR EXAM: Female, 77 years old. Routine annual screening examination. PERTINENT HISTORY: Non-contributory. TECHNIQUE: Digital bilateral breast long (3D mammographic acquisition) in the CC and MLO projections. 2-D mediolateral oblique (MLO) and craniocaudad (CC) views of both breasts were obtained. CAD: Full Field Digital Mammography with Computer Added Detection was performed. COMPARISON: Comparison is made with prior study January 25, 2022. FINDINGS: Breast Composition: There are scattered areas of fibroglandular density. There are no dominant masses or suspicious calcifications. No other significant abnormalities are identified. There has been no significant change since the prior study. BI/SCRN MAMM (CAD)W/LONG BILAT IMPRESSION: Stable bilateral screening mammogram. Yearly follow-up mammogram recommended. (A) ASSESSMENT CATEGORY: BIRADS Category 1: Negative. A letter regarding these results will be sent to the patient by the facility within 30 days. Approximately 10% of breast cancers are not detected by mammography. A normal mammogram should not delay biopsy of a clinically suspicious abnormality. [id number] Electronically Signed: Chevy Fields MD at 14:42 EDT ,
== END | disposition home or self-care (01) ==
LOC: OPBI 13:06
PROVIDERS: PCP Family Medicine; Referring Provider Family Medicine; Visit Provider Family Medicine
DX: Z12.31 Encounter for screening mammogram for malignant neoplasm of breast (principal)
CPT/HCPCS: 77063; 77067

== ENCOUNTER → 2023-07-26 | Outpatient (CLI) | payer BC, MEDICARE, SELFPAY ==
--- NOTE | 2023-07-26 14:04 | CDU_ITS ---
Reason For Study: Bharti Aaron Rt. Velocities/BP Lt. Velocities/BP Prox CCA 71.8/12.4 cm/sec. Prox CCA 95.2/14.9 cm/sec. Mid CCA 74.0/14.6 cm/sec. Mid CCA 64.4/11.7 cm/sec. Dist CCA 97.1/19.0 cm/sec. Dist CCA 77.8/17.5 cm/sec. Prox ICA 193.8/29.2 cm/sec. Prox ICA 70.5/15.7 cm/sec. Mid ICA 130.2/26.1 cm/sec. Mid ICA 119.8/26.7 cm/sec. Dist ICA 78.9/21.6 cm/sec. Dist ICA 92.8/27.8 cm/sec. Rt. ICA/CCA = 2.6. Lt. ICA/CCA = 1.9. Prox ECA 158.9/18.9 cm/sec. Prox ECA 144.0/7.9 cm/sec. Rt. Vert. 61.4/9.8 cm/sec. Lt. Vert. 55.6/11.7 cm/sec. Right Extracranial There is heterogeneous, irregular atherosclerotic plaque noted in the right common carotid artery. There is heterogeneous, irregular atherosclerotic plaque noted in the right internal carotid artery. The atherosclerotic plaque causes acoustic shadowing. There is heterogeneous, irregular atherosclerotic plaque noted in the right external carotid artery. Antegrade flow is noted in the right vertebral artery. Left Extracranial There is heterogeneous, irregular atherosclerotic plaque noted in the left common carotid artery. There is heterogeneous, irregular atherosclerotic plaque noted in the left internal carotid artery. The atherosclerotic plaque causes acoustic shadowing. There is heterogeneous, irregular atherosclerotic plaque noted in the left external carotid artery. Antegrade flow is noted in the left vertebral artery. Procedure Carotid Duplex [id number]. This is a Carotid Duplex examination using B-mode, color flow and specral Doppler. The exam was diagnostic. Exam performed in department. VL/Carotid Duplex Ultrasound Interpretation Summary Moderate (50-69%) stenosis right extracranial internal carotid. Mild (<50%) stenosis left extracranial internal carotid. Patent and antegrade vertebrals bilaterally. Limited due to calcific shadowing, alternative imaging may be beneficial Ordering Physician: Minoo Morillo Referring Physician: MD Ernesto Smith Performed By: Anthony Pink RVT
== END | disposition home or self-care (01) ==
LOC: CVS 14:03
PROVIDERS: PCP Family Medicine; Referring Provider Physician Assistant; Visit Provider Physician Assistant
DX: I77.9 Disorder of arteries and arterioles, unspecified (principal)
CPT/HCPCS: 93880

== ENCOUNTER → 2023-08-23 | Outpatient (CLI) | payer BC, MEDICARE, SELFPAY ==
--- NOTE | 2023-08-23 16:00 | CT_ITS ---
EXAM: CT ANGIOGRAPHY HEAD AND NECK WITH INTRAVENOUS CONTRAST CLINICAL INDICATION: Carotid artery stenosis TECHNIQUE: [place] [facility] [place]/head and neck CT angiography protocol performed with intravenous contrast. CTDIvol = ( 25.06 ) mGy, DLP = ( 1283.93 ) mGycm This CT exam was performed using one or more of the following dose reduction techniques: automated exposure control, adjustment of the mA and/or kV according to patient size, and/or use of iterative reconstruction technique. MIP reconstructed images were created and reviewed. CONTRAST: IV 100mL [id number] COMPARISON: CT head November 01, 2021. FINDINGS: HEAD: RIGHT ANTERIOR CEREBRAL ARTERY: Unremarkable. No occlusion or significant stenosis. Anterior communicating artery is present. No aneurysm. RIGHT MIDDLE CEREBRAL ARTERY: Unremarkable. No occlusion or significant stenosis. No aneurysm. RIGHT POSTERIOR CEREBRAL ARTERY: Unremarkable. No occlusion or significant stenosis. No aneurysm. RIGHT INTRACRANIAL INTERNAL CAROTID ARTERY: Unremarkable. No significant stenosis. No dissection or occlusion. RIGHT INTRACRANIAL VERTEBRAL ARTERY: Vertebral arteries are fairly symmetric and widely patent. Atherosclerotic calcifications along the carotid siphons intracranially with no more than mild luminal narrowing. LEFT ANTERIOR CEREBRAL ARTERY: Unremarkable. No occlusion or significant stenosis. No aneurysm. LEFT MIDDLE CEREBRAL ARTERY: Unremarkable. No occlusion or significant stenosis. No aneurysm. LEFT POSTERIOR CEREBRAL ARTERY: Unremarkable. No occlusion or significant stenosis. No aneurysm. LEFT INTRACRANIAL INTERNAL CAROTID ARTERY: Unremarkable. No significant stenosis. No dissection or occlusion. LEFT INTRACRANIAL VERTEBRAL ARTERY: See above. BASILAR ARTERY: Unremarkable. No occlusion or significant stenosis. No aneurysm. OTHER VASCULATURE: No vascular malformation. NECK: RIGHT COMMON CAROTID ARTERY: Unremarkable. No significant stenosis. No dissection or occlusion. RIGHT EXTRACRANIAL INTERNAL CAROTID ARTERY: Unremarkable. No significant stenosis. No dissection or occlusion. RIGHT EXTERNAL CAROTID ARTERY: Unremarkable. No occlusion. RIGHT EXTRACRANIAL VERTEBRAL ARTERY: Unremarkable. No significant stenosis. No dissection or occlusion. LEFT COMMON CAROTID ARTERY: Atherosclerotic calcifications of the right greater than left common carotid arteries as well as the carotid bulb/ICA bilaterally with no more than mild to moderate moderate narrowing involving the right mid ICA. There is mild luminal involving the left ICA. LEFT EXTRACRANIAL INTERNAL CAROTID ARTERY: Unremarkable. No significant stenosis. No dissection or occlusion. LEFT EXTERNAL CAROTID ARTERY: Unremarkable. No occlusion. LEFT EXTRACRANIAL VERTEBRAL ARTERY: Unremarkable. No significant stenosis. No dissection or occlusion. BRACHIOCEPHALIC AND SUBCLAVIAN ARTERIES: Unremarkable as visualized. No occlusion or significant stenosis. LUNG APICES: Lung apices are clear. HEAD and NECK: BONES/JOINTS: Degenerative changes of the spine. No acute or healing fracture or spondylolisthesis. No discrete lytic or blastic abnormalities. SOFT TISSUES: Unremarkable. CAROTID STENOSIS REFERENCE USING NASCET CRITERIA: % ICA stenosis = (1 - narrowest ICA diameter/diameter of distal cervical ICA) x 100. Mild - <50% stenosis. Moderate - 50-69% stenosis. Severe - 70-94% stenosis. Near occlusion - 95-99% stenosis. Occluded - 100% stenosis. CT/CTA Head AND Neck W/ Contrast IMPRESSION: Atherosclerotic calcifications of the right greater than left common carotid arteries as well as the carotid bulb/ICA bilaterally with no more than mild to moderate moderate narrowing involving the right mid ICA. No other significant stenosis, thrombosis, aneurysm or dissection involving head and neck. Electronically Signed: Tad De Santiago MD at 4:43 EST ,
[2023-08-23 16:25] LABS: CREATININE FINGERSTICK < 1.0 mg/dL (0.55-1.02); EGFR FINGERSTICK > 60.0000 mL/min (>60)
== END | disposition home or self-care (01) ==
LOC: CT 15:59
PROVIDERS: PCP Family Medicine; Referring Provider Physician Assistant; Visit Provider Physician Assistant
DX: I77.9 Disorder of arteries and arterioles, unspecified (principal); I65.29 Occlusion and stenosis of unspecified carotid artery
CPT/HCPCS: 70496; 70498; Q9967

== ENCOUNTER 2023-09-18 10:46 | Emergency (ER) | payer BC, MEDICARE, SELFPAY ==
[2023-09-18 10:47] VITALS: BP 199/93; PULSE 56; RESP 16; TEMP 36.3; O2SAT 100; BMI 21.2
--- NOTE | 2023-09-18 11:15 | EDS_ITS ---
HPI History of Present Illness Chief Complaint: Chest Other Informant: patient Onset/Context/Timing Onset: Yesterday Activity at onset: gradual Timing: Continuous Quality: Positive for Pressure and Sharp Location: Left Chest Worsened By: Breathing Relieved By: Rest Associated Symptoms: Positive for Nausea, Dyspnea, Cough, Lightheadedness and Acid Reflux; Negative for Vomiting, Diaphoresis, Fever or Palpitations Narrative Narrative: Patient presents with left-sided chest pain that became worse last night. Patient describes it as a sharp pain. Patient states it also feels like a pressure at times. Patient states it is mainly over the left side of her chest. Patient states it is worse with breathing. Patient states it is better with rest. Patient states she fell in her shower approximately 3 to 4 days ago and landed on her left chest. Patient denies any bruising or swelling to the area. Patient also states she was diagnosed with COVID-19 approximately 2-1/2 weeks ago. Patient admits to some nausea but denies any vomiting. Patient also admits to some lightheadedness and reflux symptoms. CVD Risk Factors: Positive for Hypertension, Hypercholesterolemia and Family History 1' </=55; Negative for Diabetes or Smoking PE Risk Factors: Negative for Recent Travel/Surgery, Recent Immobilization, Prior DVT or PE, Cancer or OCP + Smoking + >/=35 PFSH PFSH Medical History Abdominal bloating Angina pectoris Aortic insufficiency Aortic valve disease Atherosclerotic heart disease of [place] coronary artery without angina pectoris Atrial fibrillation Bilateral carotid artery stenosis C. difficile colitis Carotid artery bruit Carotid stenosis, right Cataracts, bilateral Chest pain Chronic headache Colitis Constipation Diarrhea Diarrhea Diastolic dysfunction Dysphagia Essential hypertension Family history of premature coronary heart disease Fatigue GERD (gastroesophageal reflux disease) GI bleed GI problem Hearing problem History of GI bleed HLD (hyperlipidemia) Hypothyroidism Hypothyroidism Insomnia Iron deficiency anemia due to chronic blood loss Ischemic colitis care home use of drug Lung nodule, multiple Migraines Non-smoker Nonspecific abnormal serum enzyme levels Osteoarthritis Palpitations Peptic ulcer disease Presence of stent in coronary artery (~04/19/21) Seasonal allergies Segmental colitis associated with diverticulosis Thyroid dysfunction TIA (transient ischemic attack) Ventricular hypertrophy Vision problem Home Medications levothyroxine 100 mcg tablet 100 mcg PO DAILY thyroid 04/28/21 [History Last Taken 07/28/21] nitroglycerin 0.4 mg sublingual tablet 0.4 mg sublingual Q5-15M PRN chest pain #90 tabs 05/26/21 [Rx Last Taken 07/28/21] aspirin 81 mg chewable tablet 81 mg PO DAILY@0800 heart health 07/01/21 [History Last Taken 07/27/21] trazodone 50 mg tablet 100 mg PO QHS sleep 05/04/22 [History Last Taken Unknown] potassium chloride 20 mEq tablet,extended release 20 meq PO DAILY supplement #90 tabs 05/26/22 [Rx Last Taken Unknown] cholecalciferol (vitamin D3) 50 mcg (2,000 unit) capsule 50 mcg PO DAILY 06/22/22 [History Last Taken Unknown] amlodipine 2.5 mg tablet 2.5 mg PO DAILY #30 tabs 12/07/22 [Rx Last Taken Unknown] multivitamin 1 tab PO DAILY supplement 02/22/23 [History Last Taken Unknown] famotidine 20 mg tablet See Rx Instructions .Route .COMPLEX #90 tabs 06/19/23 [Rx Last Taken Unknown] atorvastatin 40 mg tablet 40 mg PO QHS cholesterol lowering #90 tabs 08/01/23 [Rx Last Taken Unknown] lisinopril 10 mg tablet 10 mg PO BID blood pressure #180 tabs 08/01/23 [Rx Last Taken Unknown] metoprolol tartrate 25 mg tablet 25 mg PO BID blood pressure #180 tabs 08/01/23 [Rx Last Taken Unknown] Allergy/AdvReac Type Severity Reaction Status Date / Time albuterol Allergy Intermediate GI upset Verified 09/18/23 10:53 cyclobenzaprine Allergy Intermediate mental Verified 09/18/23 10:53 [From Flexeril] status change hydrocodone [From Vicodin] Allergy Intermediate muscle Verified 09/18/23 10:53 twitching oxycodone Allergy Intermediate Vomiting Verified 09/18/23 10:53 amoxicillin Allergy Mild Swelling Verified 09/18/23 10:53 clindamycin Allergy Mild Swelling Verified 09/18/23 10:53 diatrizoate meglumine Allergy Mild Itching Verified 09/18/23 10:53 Tetanus Vaccines and Toxoid Allergy Mild Hives Verified 09/18/23 10:53 codeine AdvReac Intermediate Nausea & Verified 09/18/23 10:53 Vomiting benzonatate AdvReac Mild Vomiting Verified 09/18/23 10:53 [From Tessalon Perles] hydrochlorothiazide AdvReac Mild intolerance Verified 09/18/23 10:53 [From Dyazide] triamterene [From Dyazide] AdvReac Mild intolerance Verified 09/18/23 10:53 erythromycin base AdvReac Nausea Verified 09/18/23 10:53 Family History Mother , Age 76 heart attack Myocardial infarction Heart disease Cardiomyopathy Hypertension Osteoporosis Father , Heart Disease Age 86 Heart disease Parkinson disease CVA (cerebral vascular accident) Hypertension Unknown Thyroid disorder Stomach ulcer Surgical History History of appendectomy History of colonoscopy (~08/2020) History of coronary artery stent placement History of esophagogastroduodenoscopy (EGD) (~08/2020) History of hysterectomy History of thyroidectomy Presence of coronary angioplasty implant and graft (~09/01/15) Social History household members: spouse Smoking Status: Never smoker alcohol intake: current alcohol intake frequency: holidays/special occasions only Alcohol type: wine substance use type: does not use diet: other caffeine: Yes Type: coffee Number of servings: 3 what type of physical activity do you participate in: walking frequency: 3-4 times per week seatbelt use: always do you feel safe at home: Yes ROS ROS ED Constitutional Constitutional ED: Denies chills or fever(s) Eyes Eyes: Reports blurry vision; Denies change in vision ENT ENT ED: Denies rhinorrhea or sore throat Cardiovascular Cardiovascular: Reports chest pain; Denies palpitations Respiratory/Chest Respiratory/Chest: Reports dyspnea; Denies cough Gastrointestinal Gastrointestinal: Reports nausea; Denies vomiting Genitourinary Genitourinary ED: Reports urinary frequency; Denies dysuria or hematuria Musculoskeletal Musculoskeletal: Denies back pain or neck pain Integumentary Denies abscess or rash Neurologic Neurologic: Reports headache(s); Denies weakness Allergic/Immunologic Allergic/Immunologic ED: Denies mouth swelling or urticaria EXAM Physical Exam Const Vital Signs: 09/18/23 10:47 09/18/23 10:58 09/18/23 12:25 Temperature 97.3 F L Temperature Source Temporal Pulse Rate 56 L Respiratory Rate 16 Respiratory Effort Normal Blood Pressure 199/93 H Blood Pressure Mean 128 Pulse Ox 100 97 Oxygen Delivery Method Room Air Room Air 09/18/23 13:03 Temperature Temperature Source Pulse Rate 47 L Respiratory Rate 10 L Respiratory Effort Blood Pressure 164/74 H Blood Pressure Mean 104 Pulse Ox 94 Oxygen Delivery Method Room Air Positive well nourished and well developed General Appearance ED: well developed and NAD HEENT Reports moist mucous membranes Neck supple and no JVD Chest Wall inspection of chest normal Chest: tenderness rib Resp normal respiratory effort and clear to auscultation bilaterally Cardio regular rate and regular rhythm GI soft to palpation, non-tender and non-distended Neuro oriented x3, CN's II-XII intact bilaterally and no sensory deficits noted Sensorium / Orientation: awake and alert Motor Exam: strength 5/5 throughout Psych mental status grossly normal Heart Score History: Slightly/Non-Suspicious Age: >/= 65 years Risk Factors: >/= 3 Risk Factors or History of CAD Score: 4 MDM MDM MDM Narrative Medical decision making narrative: Differential diagnosis includes cardiac dysrhythmia, cardiac ischemia, pneumonia, pneumothorax, pulmonary embolism, rib fracture, and musculoskeletal pain. EKG will be obtained to assess for cardiac dysrhythmia and cardiac ischemia. X-rays of the left ribs will be obtained to assess for rib fracture, pneumonia, pneumothorax. CBC will be obtained to assess for leukocytosis and anemia. Basic metabolic profile will be obtained to assess for electrolyte abnormality and renal function. High-sensitivity troponin will be obtained to assess for cardiac ischemia. D-dimer will be obtained to assess for pulmonary embolism. Lab Data Attestation: I reviewed the patient's lab results. Lab results narrative: CBC was reviewed and was within normal limits. Basic metabolic profile was reviewed and was within normal limits. High-sensitivity troponin was reviewed and was normal at 7. D-dimer was reviewed and was normal at less than 0.27. Labs: Laboratory Results - last 24 hr 09/18/23 11:30 WBC 7.6 RBC 4.53 Hgb 13.8 Hct 40.7 MCV 89.8 MCH 30.5 MCHC 33.9 RDW Std Deviation 42.3 RDW Coeff of Jase 12.9 Plt Count 273 MPV 8.4 Immature Gran % (Auto) 0.500 Neut % (Auto) 86.2 H Lymph % (Auto) 9.8 L [place] % (Auto) 2.9 Eos % (Auto) 0.3 Baso % (Auto) 0.3 Absolute Neuts (auto) 6.5 Absolute Lymphs (auto) 0.74 L Nucleated RBC % 0 D-Dimer Quant (PE/DVT) < 0.27 L Sodium 141 Potassium 3.8 Chloride 108 H Carbon Dioxide 31.0 Anion Gap 2 L BUN 18 Creatinine 0.93 Estim Creat Clear Calc 41.24 Est GFR (MDRD) Af Amer 75 Est GFR (MDRD) Non-Af 62 BUN/Creatinine Ratio 19.3 Glucose 106 Calcium 9.2 Troponin I High Sens 7 Radiography Diagnostic Testing: Clinical Impression(s) from Imaging Studies Ribs w/Chest X-Ray 09/18/23 11:21 IMPRESSION: 1. No evidence of acute displaced rib fracture. 2. Old fractures of the left ribs. Electronically Signed: Lobito Hobbs MD at 12:13 EST , X-rays of the left ribs were obtained. There are 5 views. On my independent interpretation, there is no acute fracture. There is no pneumothorax. There is no evidence of cardiomegaly. There is no acute cardiopulmonary process noted. Radiologist also interpreted the x-rays and agrees. EKG Initial EKG: Attestation: I personally reviewed and interpreted this EKG as follows: Interpretation: No Acute Injury Pattern and Sinus Bradycardia (53) Comments: EKG was obtained. On my independent interpretation, it showed a sinus bradycardia with a rate of 53. HI interval, QRS interval, and QTc intervals were all normal. [place] was normal. There are no acute ST or T wave changes. Prior EKG tracings: available for review Prior: Unchanged (12/07/2022) Treatment and Re-Evaluation :: Patient was given aspirin and morphine here. Patient was advised of her findings. Patient's blood pressure did increase to 216/77. However, repeat blood pressure was 164/74. Patient felt better. Patient was instructed to follow-up with her primary care physician in 5 to 7 days. Patient understood and was agreeable with the plan. All questions were answered. Discharge Plan Triage Chief Complaint: Chest Other ED Provider: Gregory Conroy Dx/Rx/DC Orders Clinical Impression: Essential hypertension, Chest pain, Fall Instructions: ED Chest Pain, Uncertain Cause Prescriptions: No Action nitroglycerin 0.4 mg tablet, sublingual 0.4 mg sublingual Q5-15M PRN (Reason: chest pain) Qty: 90 3RF Rx Instructions: do not exceed 3 doses per episode cholecalciferol (vitamin D3) 50 mcg (2,000 unit) capsule 50 mcg PO DAILY amlodipine 2.5 mg tablet 2.5 mg PO DAILY Qty: 30 6RF Hold Instructions: Pt wants to try off of med trazodone 50 mg tablet 100 mg PO QHS Patient Comments: SLEEP multivitamin Tablet 1 tab PO DAILY Patient Comments: SUPPLEMENT aspirin 81 MG tablet,chewable 81 mg PO DAILY@0800 Patient Comments: [facility] levothyroxine 100 mcg tablet 100 mcg PO DAILY potassium chloride 20 mEq tablet extended release 20 meq PO DAILY Qty: 90 3RF Hold Instructions: PCP stopped, will see how BMP is in 2 weeks Rx Instructions: Take 1 tablet by mouth once daily famotidine 20 mg tablet See Rx Instructions .ROUTE .COMPLEX Qty: 90 3RF Dose Instruction: Take 1 tablet by mouth once daily Rx Instructions: Take 1 tablet by mouth once daily atorvastatin 40 mg tablet 40 mg PO QHS Qty: 90 3RF lisinopril 10 mg tablet 10 mg PO BID Qty: 180 3RF metoprolol tartrate 25 mg tablet 25 mg PO BID Qty: 180 3RF Primary Care Provider: Smith Orozco Referrals: Smith Orozco MD [Primary Care Provider] - 5-7 Days Disposition Disposition: Home, Self Care
--- NOTE | 2023-09-18 11:21 | EKG12_ITS ---
Test Reason : FALL Blood Pressure : / mmHG Vent. Rate : 053 BPM Atrial Rate : 053 BPM P-R Int : 162 ms QRS Dur : 066 ms QT Int : 442 ms P-R-T Axes : 069 073 088 degrees QTc Int : 414 ms Sinus bradycardia Otherwise normal ECG Confirmed by ROBIN TORRES, VENICE ([id number]), newspaper or periodical editor MENDOZA ACOSTA ([id number]) on 09/19/2023 10:00:33 AM Referred By: Confirmed By:VENICE KELLY MD
--- NOTE | 2023-09-18 11:21 | RAD_ITS ---
INDICATION: Trauma EXAMINATION/TECHNIQUE: X-RAY - XR Ribs Unilateral W/ PA Chest Min 3 Views COMPARISON: Chest x-ray of 07/28/2021. FINDINGS: SOFT TISSUES: No soft tissue swelling or gas. BONES: Old fractures of the posterior lateral aspect of the left, 6 and seventh ribs. No evidence of acute displaced fracture. No sclerotic or destructive changes observed. VISUALIZED LUNGS: Clear. No pneumothorax. RAD/Ribs Uni Min 3V w/PA Chest IMPRESSION: 1. No evidence of acute displaced rib fracture. 2. Old fractures of the left ribs. Electronically Signed: Lobito Hobbs MD at 12:13 EST ,
[2023-09-18 11:39] LABS: Absolute Lymphocyte Count 0.74 X10^3/uL (0.83-4.51); Absolute Neutrophil Count 6.5 X10^3/uL (2.0-7.7); Basophil# 0.02 X10^3/uL; Basophil% 0.3 % (0-1); Eosinophil# 0.02 X10^3/uL; Eosinophils% 0.3 % (0-5); Hematocrit 40.7 % (37-47); Hemoglobin 13.8 g/dL (12.0-15.0); Lymphocyte # 0.74 X10^3/ul (0.83-4.51); Lymphocyte % 9.8 % (19-41); Mean Corp Hgb Conc 33.9 g/dL (32-36); Mean Corpuscular Hgb 30.5 pg (27.0-32.0); Mean Corpuscular Volume 89.8 fL (81-99); Mean Platelet Vol. 8.4 fl (6.2-12.0); Monocyte# 0.22 X10^3/uL; Monocyte% 2.9 % (0-10); NRBC Flagged by Analyzer 0 % (0-5); Neutrophil # 6.52 X10^3/uL (2.7-7.7); Neutrophil % 86.2 % (47-70); Platelet Count 273 K/mm3 (150-450); RBC Distribution Width CV 12.9 % (11.6-14.6); RBC Distribution Width SD 42.3 fl (35.1-43.9); Red Blood Count 4.53 M/mm3 (4.2-5.4); White Blood Count 7.6 K/mm3 (4.4-11.0)
[2023-09-18 11:56] LABS: D-Dimer Quantitative (DVT/PE) < 0.27 FEU/ug/m (0.27-0.49)
[2023-09-18 12:02] LABS: Anion Gap 2 (5-15); BUN 18 mg/dL (7-18); BUN/Creat Ratio 19.3 RATIO (10-20); Calcium,Total 9.2 mg/dL (8.5-10.1); Chloride 108 mmol/L (98-107); Creatinine, Serum 0.93 mg/dL (0.55-1.02); EST Glomerular Filtration Rate 62 mL/min (>60); Est Glom Filt Rate - Afr Amer 75 mL/min (>60); Estimated Creatinine Clearance 41.24 ml/min; Glucose 106 mg/dL (74-106); Potassium 3.8 mmol/L (3.5-5.1); Sodium Level 141 mmol/L (136-145); Troponin-I HS 7 pg/mL (3.0-54.0)
[2023-09-18] MEDS: Ondansetron 4 MG/2 ML Vial IV (12:15)
[2023-09-18] MEDS: Aspirin 81 MG TAB.CHEW 324 MG PO (12:15)
[2023-09-18] MEDS: Morphine 4 MG/ML Syringe IV (12:17)
[2023-09-18 12:25] VITALS: O2SAT 97
[2023-09-18 13:03] VITALS: BP 164/74; PULSE 47; RESP 10; O2SAT 94
--- NOTE | 2023-09-18 13:06 | ED.RN ---
per dr janell macias to hold hydralazine and d/c patient d/t repeat BP of 164/74.
== END 2023-09-18 13:21 | disposition home or self-care (01) ==
PROVIDERS: Emergency Provider Emergency Medicine; PCP Family Medicine; Visit Provider Emergency Medicine
DX: I10 Essential (primary) hypertension (principal); I48.91 Unspecified atrial fibrillation; R07.9 Chest pain, unspecified; W01.198A Fall on same level from slipping, tripping and stumbling with subsequent striking against other object, initial encounter; R11.0 Nausea; K21.9 Gastro-esophageal reflux disease without esophagitis; R42 Dizziness and giddiness; I25.10 Atherosclerotic heart disease of native coronary artery without angina pectoris; Z79.890 Hormone replacement therapy; Z79.899 Other long term (current) drug therapy; Z86.73 Personal history of transient ischemic attack (TIA), and cerebral infarction without residual deficits; Z95.5 Presence of coronary angioplasty implant and graft
CPT/HCPCS: 71101; 80048; 84484; 85025; 85379; 93005; 96374; 96375; 99284; A4216; J2405

== ENCOUNTER 2023-11-13 13:01 | Inpatient (IN) | payer BC, MEDICARE, SELFPAY ==
[2023-11-13] VITALS (9 sets, daily range): BP systolic 148–229; BP diastolic 67–100; PULSE 59–91; RESP 12–22; TEMP 36.4–36.8; O2SAT 96–98; BMI 20.3; BMI 20.5
--- NOTE | 2023-11-13 14:01 | ED.VIS.BACK ---
HPI History of Present Illness Chief Complaint: Back [facility] Medical History Abdominal bloating Angina pectoris Aortic insufficiency Aortic valve disease Atherosclerotic heart disease of [place] coronary artery without angina pectoris Atrial fibrillation Bilateral carotid artery stenosis C. difficile colitis Carotid artery bruit Carotid stenosis, right Cataracts, bilateral Chest pain Chronic headache Colitis Constipation Diarrhea Diarrhea Diastolic dysfunction Dysphagia Essential hypertension Family history of premature coronary heart disease Fatigue GERD (gastroesophageal reflux disease) GI bleed GI problem Hearing problem History of GI bleed HLD (hyperlipidemia) Hypothyroidism Hypothyroidism Insomnia Iron deficiency anemia due to chronic blood loss Ischemic colitis detention use of drug Lung nodule, multiple Migraines Non-smoker Nonspecific abnormal serum enzyme levels Osteoarthritis Palpitations Peptic ulcer disease Presence of stent in coronary artery (~04/19/21) Seasonal allergies Segmental colitis associated with diverticulosis Thyroid dysfunction TIA (transient ischemic attack) Ventricular hypertrophy Vision problem Home Medications levothyroxine 100 mcg tablet 100 mcg PO DAILY thyroid 04/28/21 [History Last Taken 07/28/21] trazodone 50 mg tablet 100 mg PO QHS sleep 05/04/22 [History Last Taken Unknown] potassium chloride 20 mEq tablet,extended release 20 meq PO DAILY supplement #90 tabs 05/26/22 [Rx Last Taken Unknown] carvedilol 6.25 mg tablet (Coreg) 6.25 mg PO BID #60 tabs 10/16/23 [Rx Last Taken Unknown] colestipol 1 gram tablet (Colestid) 1 g PO BID 10/16/23 [History Last Taken Unknown] donepezil 5 mg tablet 5 mg PO DAILY 10/16/23 [History Last Taken Unknown] lisinopril 10 mg tablet 20 mg PO DAILY blood pressure 10/16/23 [History Last Taken Unknown] atorvastatin 40 mg tablet 40 mg PO QHS 11/13/23 [History Last Taken Unknown] famotidine 20 mg tablet 20 mg PO DAILY 11/13/23 [History Last Taken Unknown] metoprolol tartrate 25 mg tablet 25 mg PO Q12H 11/13/23 [History Last Taken Unknown] tamsulosin 0.4 mg capsule 0.4 mg PO DAILY 11/13/23 [History Last Taken Unknown] Allergy/AdvReac Type Severity Reaction Status Date / Time albuterol Allergy Intermediate GI upset Verified 11/13/23 13:02 cyclobenzaprine Allergy Intermediate mental Verified 11/13/23 13:02 [From Flexeril] status change hydrocodone [From Vicodin] Allergy Intermediate muscle Verified 11/13/23 13:02 twitching oxycodone Allergy Intermediate Vomiting Verified 11/13/23 13:02 amoxicillin Allergy Mild Swelling Verified 11/13/23 13:02 clindamycin Allergy Mild Swelling Verified 11/13/23 13:02 diatrizoate meglumine Allergy Mild Itching Verified 11/13/23 13:02 Tetanus Vaccines and Toxoid Allergy Mild Hives Verified 11/13/23 13:02 codeine AdvReac Intermediate Nausea & Verified 11/13/23 13:02 Vomiting benzonatate AdvReac Mild Vomiting Verified 11/13/23 13:02 [From Tessalon Perles] hydrochlorothiazide AdvReac Mild intolerance Verified 11/13/23 13:02 [From Dyazide] triamterene [From Dyazide] AdvReac Mild intolerance Verified 11/13/23 13:02 erythromycin base AdvReac Nausea Verified 11/13/23 13:02 Family History Mother , Age 76 heart attack Myocardial infarction Heart disease Cardiomyopathy Hypertension Osteoporosis Father , Heart Disease Age 86 Heart disease Parkinson disease CVA (cerebral vascular accident) Hypertension Unknown Thyroid disorder Stomach ulcer Surgical History History of appendectomy History of colonoscopy (~08/2020) History of coronary artery stent placement History of esophagogastroduodenoscopy (EGD) (~08/2020) History of hysterectomy History of thyroidectomy Presence of coronary angioplasty implant and graft (~09/01/15) Social History household members: spouse Smoking Status: Never smoker alcohol intake: current alcohol intake frequency: holidays/special occasions only Alcohol type: wine substance use type: does not use diet: other caffeine: Yes Type: coffee Number of servings: 3 what type of physical activity do you participate in: walking frequency: 3-4 times per week seatbelt use: always do you feel safe at home: Yes EXAM Physical Exam Const Vital Signs: 11/13/23 13:02 11/13/23 14:55 11/13/23 14:30 Temperature 97.8 F Temperature Source Temporal Pulse Rate 78 73 Respiratory Rate 16 22 H Blood Pressure 148/100 H 229/67 H Blood Pressure Mean 116 112 Pulse Ox 96 Oxygen Delivery Method Room Air Room Air 11/13/23 15:30 11/13/23 16:20 11/13/23 16:34 Temperature Temperature Source Pulse Rate 59 L 80 71 Respiratory Rate 12 14 19 H Blood Pressure 168/81 H 170/96 H Blood Pressure Mean 108 103 Pulse Ox 97 98 Oxygen Delivery Method 11/13/23 17:00 Temperature Temperature Source Pulse Rate Respiratory Rate Blood Pressure 184/70 H Blood Pressure Mean 105 Pulse Ox Oxygen Delivery Method MDM MDM MDM Narrative Medical decision making narrative: HISTORY OF PRESENT ILLNESS: 78-year-old female presents with back pain and headache. She states this began 2 and half weeks ago. Last known well was on 10/27/2023 none since that time she has had difficulty with coordination. Notes intermittent issues with speech. Notes she keeps falling to the left. Notes she had a severe headache yesterday which is since resolved. No ocular abnormalities noted. Patient denies sudden onset or thunderclap headache, denies maximal intensity within 1 minute, vomiting, neck pain, stiffness, changes in vision, fever, history malignancy, syncope, or seizures associated with headache. Patient denies any saddle anesthesia, urinary retention, bowel or bladder incontinence, lower extremity weakness, fever or IV drug use, no recent spinal manipulation or surgery, no recent urinary catheterization. REVIEW OF SYSTEMS: Pertinent positives: Back pain, headache, incoordination Pertinent negatives: Chest pain, shortness of breath PHYSICAL EXAM: Nursing triage notes reviewed, Vital signs reviewed Constitutional: please see mdm HENT: MMM Eyes: Pupils equal round and reactive to light, Extraocular muscles intact Neck: No stridor, no JVD, full neck ROM Lungs: Clear to auscultation, No wheezing or rales. No increased work of breathing, no conversational dyspnea, no accessory muscle use, no nasal flaring. No respiratory distress noted Heart: Regular rate and rhythm, No murmurs, No rubs and No gallops, 2+ distal pulses (radial, femoral, posterior tibial) in all extremities Abdomen: Soft, there is no tenderness, rigidity, rebound or guarding, no obvious peritoneal signs, no palpable pulsatile abdominal masses, no auscultated abdominal bruit : No CVAT Extremities: No edema Neuro: Patient was alert, oriented x 3, no obvious cranial nerve deficits, no aphasia, no dysarthria, intact sensation strength in bilateral upper and lower extremities, noted ataxia left upper extremity as well as truncal ataxia. NIH of 1 for LUE ataxia. Did not assess gait 2/2 acuity of condition. Skin: No rash or lesions noted MEDICAL DECISION MAKING: Chief Complaint: Incoordination, headache External records reviewed: Imaging studies reviewed: CTA of the head and neck from August 2023 shows. MRI of the brain from 2020 shows no acute infarct, hemorrhage mass or mass effect Factors affecting care: CAD, hyperlipidemia, carotid artery stenosis, GI bleed, Social determinants of health: none History obtained from others: none Consults: Internal medicine (Dr. Meadows) MDM Narrative: Patient was hemodynamically stable, afebrile, nontoxic-appearing. Exam with NIH of 1 for incoordination. The patient was not a TNKase or thrombectomy candidate given low NIH and last known well greater than 24 hours. I considered the following differential diagnosis: CVA, ACS, LVO, focal seizure ALL IMAGES (IF OBTAINED) HAVE BEEN PERSONALLY REVIEWED AND INTERPRETED BY MYSELF. EKG with normal sinus rhythm, normal axis, no intervals, no STEMI CTA head and neck shows no acute abnormalities. CBC without leukocytosis, severe anemia, no thrombocytopenia. PT, PTT, INR within normal limits CMP without evidence of acute kidney injury, significant electrolyte abnormality, anion gap, no evidence hepatobiliary pathology. High-sensitivity troponin is negative, no evidence of myocardial ischemia TSH within normal limits Given focal neurologic deficit patient was admitted for MRI and neurology evaluation The patient and/or family, caregivers express understanding. The patient and/or family, caregivers agrees with the plan. Shared decision making: I will have a discussion with the patient and or visitors regarding risk/benefits of further testing or admission. They will be made aware of of the risk/benefits inherent in this decision they will be given the opportunity to voice understanding. Total critical care time today provided was at least 0 [] minutes. This excludes separately billable procedures. Critical care time (if documented) is secondary to the patient having high probability of clinically significant/life threatening deterioration in the patient's condition which required my urgent intervention. Impression: 1. Ataxia 2. Gait abnormality Dispo: Admit to PCU observation This note was generated with [employer] dictation software. It may contain incorrect words, spelling, and punctuation that were not noted in review of the chart prior to signing. Lab Data Lab results narrative: Labs: Laboratory Results - last 24 hr 11/13/23 15:03 WBC 5.5 RBC 4.68 Hgb 14.2 Hct 42.0 MCV 89.7 MCH 30.3 MCHC 33.8 RDW Std Deviation 41.2 RDW Coeff of Jase 12.4 Plt Count 269 MPV 8.2 Immature Gran % (Auto) 0.200 Neut % (Auto) 65.7 Lymph % (Auto) 23.1 [place] % (Auto) 8.9 Eos % (Auto) 1.6 Baso % (Auto) 0.5 Absolute Neuts (auto) 3.6 Absolute Lymphs (auto) 1.27 Nucleated RBC % 0 PT 13.1 INR 1.0 APTT 29.4 Sodium 141 Potassium 3.5 Chloride 110 H Carbon Dioxide 30.0 Anion Gap 1 L BUN 19 H Creatinine 0.92 Estim Creat Clear Calc 40.83 Est GFR (MDRD) Af Amer 76 Est GFR (MDRD) Non-Af 63 BUN/Creatinine Ratio 20.7 H Glucose 99 Calcium 9.2 Troponin I High Sens 8 TSH 1.53 Radiography Diagnostic Testing: Clinical Impression(s) from Imaging Studies Head/Neck CTA 11/13/23 14:48 IMPRESSION: No acute intracranial findings. No significant major vessel vaso-occlusive disease in the head or neck. No significant interval change from the prior study. Electronically Signed: Aris Soares MD at 16:44 EST , Chest X-Ray 11/13/23 16:05 IMPRESSION: No radiographic evidence of acute cardiopulmonary disease. Electronically Signed: Aris Soares MD at 17:13 EST , Discharge Plan Disposition Disposition: Acute Care Hospital [facility] [place] [facility] Discharge Date/Time: 11/13/23 20:10
--- NOTE | 2023-11-13 14:47 | EKG12_ITS ---
Test Reason : Blood Pressure : / mmHG Vent. Rate : 066 BPM Atrial Rate : 066 BPM P-R Int : 178 ms QRS Dur : 072 ms QT Int : 434 ms P-R-T Axes : 057 022 066 degrees QTc Int : 454 ms Normal sinus rhythm Nonspecific T wave abnormality Abnormal ECG When compared with ECG of 13-NOV-2023 13:25, MANUAL COMPARISON REQUIRED, DATA IS UNCONFIRMED Confirmed by Allen Alvarez ([id number]), photography editor MENDOZA ACOSTA ([id number]) on 11/15/2023 1:33:47 PM Referred By: Tahira Meadows Confirmed By:Allen Alvarez
--- NOTE | 2023-11-13 14:48 | CT_ITS ---
INDICATION: Intermittent speech difficulty, headache EXAMINATION: CT BRAIN WITH CONTRAST TECHNIQUE: Noncontrast axial images were obtained of the brain. Subsequently, routine carotid CT angiogram protocol was performed without and with IV contrast. In addition, images were obtained of the [place]. NASCET criteria using the distal ICAs for comparison were used for evaluation of stenoses. 3D reconstructions were reviewed. A radiation dose optimization technique was used for this scan. IV Contrast dosage and agent: 100 cc [id number] COMPARISON: 08/23/2023 FINDINGS: --CT BRAIN: BRAIN PARENCHYMA: No intra- or extra-axial hemorrhage. No evidence of acute infarct. No intracranial mass or mass effect. There is preservation of the [place]/white matter interface. Posterior fossa structures are unremarkable. CSF SPACES: Appropriate for age. No hydrocephalus. Basal cisterns are patent. CALVARIUM, SKULL BASE, PARANASAL SINUSES AND MASTOID AIR CELLS: Clear. No discrete lytic or blastic abnormalities. --CTA NECK: AORTIC ARCH AND BRANCHES: Vessel origins patent. RIGHT CCA: No occlusion, significant stenosis or dissection. RIGHT ICA: Stable mild atherosclerotic irregularity without occlusion, significant stenosis or dissection. LEFT CCA: No occlusion, significant stenosis or dissection. LEFT ICA: Stable mild atherosclerotic irregularity without occlusion, significant stenosis or dissection. RIGHT VERTEBRAL ARTERY: No occlusion, significant stenosis or dissection. LEFT VERTEBRAL ARTERY: No occlusion, significant stenosis or dissection. NECK SOFT TISSUES: Unremarkable. --CTA HEAD: --Anterior circulation: ICAs: No significant stenosis at the intracranial/visualized segments. ACAs: No significant stenosis at the visualized segments. ACOM: Present. MCAs: No significant stenosis at the visualized segments. --Posterior circulation: cell operator: No significant stenosis at the visualized segments. BASILAR ARTERY: No significant stenosis. VERTEBRAL ARTERIES: No significant stenosis at the intradural/visualized segments. No evidence of intracranial aneurysm or vascular malformation. CT/CTA Head AND Neck W/ Contrast IMPRESSION: No acute intracranial findings. No significant major vessel vaso-occlusive disease in the head or neck. No significant interval change from the prior study. Electronically Signed: Aris Soares MD at 16:44 EST ,
[2023-11-13 15:11] LABS: Absolute Lymphocyte Count 1.27 X10^3/uL (0.83-4.51); Absolute Neutrophil Count 3.6 X10^3/uL (2.0-7.7); Basophil# 0.03 X10^3/uL; Basophil% 0.5 % (0-1); Eosinophil# 0.09 X10^3/uL; Eosinophils% 1.6 % (0-5); Hemoglobin 14.2 g/dL (12.0-15.0); Lymphocyte # 1.27 X10^3/ul (0.83-4.51); Lymphocyte % 23.1 % (19-41); Mean Corp Hgb Conc 33.8 g/dL (32-36); Mean Corpuscular Hgb 30.3 pg (27.0-32.0); Mean Corpuscular Volume 89.7 fL (81-99); Mean Platelet Vol. 8.2 fl (6.2-12.0); Monocyte# 0.49 X10^3/uL; Monocyte% 8.9 % (0-10); NRBC Flagged by Analyzer 0 % (0-5); Neutrophil % 65.7 % (47-70); Platelet Count 269 K/mm3 (150-450); RBC Distribution Width CV 12.4 % (11.6-14.6); RBC Distribution Width SD 41.2 fl (35.1-43.9); Red Blood Count 4.68 M/mm3 (4.2-5.4); White Blood Count 5.5 K/mm3 (4.4-11.0)
[2023-11-13] MEDS: Labetalol (Prefilled) 20 MG/4 ML IV (15:14)
[2023-11-13 15:17] LABS: Prothrombin Time (Protime)PT. 13.1 SECONDS (11.7-14.9)
[2023-11-13 15:18] LABS: Partial Thromboplast Time 29.4 Seconds (24.1-36.2)
[2023-11-13 15:29] LABS: Anion Gap 1 (5-15); BUN 19 mg/dL (7-18); BUN/Creat Ratio 20.7 RATIO (10-20); Calcium,Total 9.2 mg/dL (8.5-10.1); Chloride 110 mmol/L (98-107); Creatinine, Serum 0.92 mg/dL (0.55-1.02); EST Glomerular Filtration Rate 63 mL/min (>60); Est Glom Filt Rate - Afr Amer 76 mL/min (>60); Estimated Creatinine Clearance 40.83 ml/min; Glucose 99 mg/dL (74-106); Potassium 3.5 mmol/L (3.5-5.1); Sodium Level 141 mmol/L (136-145); Troponin-I HS 8 pg/mL (3.0-54.0)
--- NOTE | 2023-11-13 16:05 | RAD_ITS ---
INDICATION: Neuro deficit, acute, stroke suspected EXAMINATION/TECHNIQUE: X-RAY - portable upright AP chest x-ray COMPARISON: 09/18/2023 FINDINGS: LINES/DEVICES: None. LUNGS: No consolidation, edema or effusion. No pneumothorax. MEDIASTINUM AND CARDIOVASCULAR STRUCTURES: Cardiac silhouette not enlarged. Central airways and mediastinal contour are unremarkable. BONES AND SOFT TISSUES: No acute changes. RAD/Chest 1 View IMPRESSION: No radiographic evidence of acute cardiopulmonary disease. Electronically Signed: Aris Soares MD at 17:13 EST ,
--- NOTE | 2023-11-13 18:12 | ECHOD_ITS ---
Reason For Study: TIA/CVA Procedure This was a 2D Doppler, Color Flow transthoracic echocardiogram. The study was technically difficult. Exam performed supine due to patient unwilling to lie on left side. Exam performed in department. Left Ventricle Normal size and thickness. The left ventricular ejection fraction is 65 %. Stage 1 diastolic dysfunction. Right Ventricle Normal right ventricle. Atria The left and right atria are normal. Bubble contrast study is negative for PFO/ASD. Mitral Valve Trivial mitral valve insufficiency. Tricuspid Valve Trivial tricuspid valve insufficiency. Unable to estimate RV systolic pressure due to insufficient tricuspid regurgitant envelope. Aortic Valve The aortic valve is not well visualized in the short axis view. Mild aortic stenosis. Mild (1+) aortic valve insufficiency. Pulmonic Valve The pulmonic valve is not well visualized. Great Vessels Normal sized aortic root. Pericardium/Pleural No pericardial effusion. Medication Performed a rapid injection of agitated mix of 9 cc saline and 1cc air to assess for atrial septal defect. MMode/2D Measurements & Calculations LVIDd: 4.2 cm IVSd: 1.1 cm LVOT diam: 2.0 cm LVIDs: 2.2 cm LVPWd: 1.1 cm RVDd: 2.2 cm FS: 46.9 % LVOT area: 3.3 cm2 Ao root diam: 3.0 cm LAV(MOD-bp): 30.7 ml LVAd ap4: 19.6 cm2 LAV(MOD-bp) Indexed: 20.1 ml/m2 LVLd ap4: 6.7 cm LAV(MOD-sp2): 26.4 ml EDV(MOD-sp4): 46.6 ml LAV(MOD-sp4): 29.1 ml EDV(sp4-el): 48.3 ml LVAs ap4: 10.9 cm2 LVLs ap4: 6.0 cm ESV(MOD-sp4): 17.8 ml ESV(sp4-el): 16.8 ml EF(MOD-sp4): 61.8 % EF(sp4-el): 65.1 % LVAd ap2: 16.6 cm2 SV(MOD-sp4): 28.8 ml SV(MOD-sp2): 24.1 ml LVLd ap2: 6.4 cm EDV(MOD-sp2): 35.8 ml EDV(sp2-el): 36.5 ml LVAs ap2: 8.3 cm2 LVLs ap2: 5.4 cm ESV(MOD-sp2): 11.8 ml ESV(sp2-el): 10.7 ml EF(MOD-sp2): 67.2 % SV(sp4-el): 31.5 ml LA dimension(2D): 2.9 cm LA A4 area: 14.3 cm2 RA A4 area: 10.6 cm2 TAPSE: 2.2 cm Time Measurements MV dec time: 0.43 sec Doppler Measurements & Calculations MV E max galen: 60.8 cm/sec Lat Peak E' Galen: 6.0 cm/sec Med Peak E' Gal[place]: 4.9 cm/sec MV A max galen: 88.9 cm/sec E/E' lat: 10.2 E/E' med: 12.5 MV E/A: 0.68 MV V2 max: 110.2 cm/sec MV P1/2t max galen: 97.6 cm/sec Ao V2 max: 203.3 cm/sec MV max P.9 mmHg MV P1/2t: 139.0 msec Ao max P.6 mmHg MV V2 mean: 67.9 cm/sec Ao V2 mean: 136.4 cm/sec MV mean P.1 mmHg MV dec slope: 205.6 cm/sec2 Ao mean P.7 mmHg MV V2 VTI: 29.3 cm MVA(P1/2t): 1.6 cm2 Ao V2 VTI: 47.5 cm AV (velocity ratio): 0.44 MVA(VTI): 2.4 cm2 YARELY(I,D): 1.5 cm2 YARELY(V,D): 1.3 cm2 AI max galen: 391.5 cm/sec LV V1 max: 80.6 cm/sec SV(LVOT): 68.9 ml AI max P.4 mmHg LV V1 max P.6 mmHg AI dec slope: 158.3 cm/sec2 LV V1 mean P.6 mmHg AI P1/2t: 724.5 msec LV V1 mean: 60.3 cm/sec LV V1 VTI: 21.0 cm PA V2 max: 74.5 cm/sec PA V2 mean: 51.8 cm/sec ECHO/Echo Complete Interpretation Summary The left ventricular ejection fraction is 65 %. Stage 1 diastolic dysfunction. Mild aortic stenosis. Mild (1+) aortic valve insufficiency. Bubble contrast study is negative for PFO/ASD. The study was technically difficult. Ordering Physician: Tahira Meadows Referring Physician: Smith Orozco Performed By: Evelia Patton, ZAIN, RVT
--- NOTE | 2023-11-13 18:15 | PCM.HP.STD ---
HPI - General General Date of Admission: 11/13/23 Date of Service: 11/13/23 Chief Complaint: ataxia and back pain HPI Narrative MANDA AKBAR, is a 78 F who presented initially to the emergency department for back pain and leg pain that has been ongoing. She has been seeing a neurologist over at [facility], Dr. Hayes, who has ordered a lumbar spine MRI and there is evidently been some issues with her getting it scheduled and she wanted to get it scheduled here however the ER physician was more concerned on her physical exam as she is having some memory loss, ataxia, dysmetria, falls (3 within the last 1 to 2 months), word finding issues and shakiness of speech. She states she has had a lot of the symptoms for about the last year but they progressively gotten worse. She states she is afraid to speak to people at work because she is afraid she will say the wrong thing and it has become problematic on a daily basis. On exam she has ataxia with past-pointing, tremor that is fine at rest, shaky speech with intermittent word finding problems and she is hyperreflexic on exam. She is overall fairly poor historian. She does state that she used to love to dance and she was at her granddaughter's wedding recently and was not even able to dance due to her symptoms. She states her neurologist thought maybe she was having some dementia and has placed her on donepezil recently. She has not noticed any change. Vital signs on presentation show a temperature of 97.8, heart rate 78, blood pressure was 148/100, respiratory was 16 oxygen saturations are 96% on room air. CBC is completely unremarkable. Coags are normal. Her chemistry panel is overtly unremarkable. Troponin was 8. CTA of the head and neck was unremarkable for any acute findings. Chest x-ray was unremarkable for any acute findings. FOR[facility]LY [facility] Medical History Abdominal bloating Angina pectoris Aortic insufficiency Aortic valve disease Atherosclerotic heart disease of [place] coronary artery without angina pectoris Atrial fibrillation Bilateral carotid artery stenosis C. difficile colitis Carotid artery bruit Carotid stenosis, right Cataracts, bilateral Chest pain Chronic headache Colitis Constipation Diarrhea Diarrhea Diastolic dysfunction Dysphagia Essential hypertension Family history of premature coronary heart disease Fatigue GERD (gastroesophageal reflux disease) GI bleed GI problem Hearing problem History of GI bleed HLD (hyperlipidemia) Hypothyroidism Hypothyroidism Insomnia Iron deficiency anemia due to chronic blood loss Ischemic colitis jail use of drug Lung nodule, multiple Migraines Non-smoker Nonspecific abnormal serum enzyme levels Osteoarthritis Palpitations Peptic ulcer disease Presence of stent in coronary artery (~04/19/21) Seasonal allergies Segmental colitis associated with diverticulosis Thyroid dysfunction TIA (transient ischemic attack) Ventricular hypertrophy Vision problem Home Medications levothyroxine 100 mcg tablet 100 mcg PO DAILY thyroid 04/28/21 [History Last Taken 07/28/21] trazodone 50 mg tablet 100 mg PO QHS sleep 05/04/22 [History Last Taken Unknown] potassium chloride 20 mEq tablet,extended release 20 meq PO DAILY supplement #90 tabs 05/26/22 [Rx Last Taken Unknown] carvedilol 6.25 mg tablet (Coreg) 6.25 mg PO BID #60 tabs 10/16/23 [Rx Last Taken Unknown] colestipol 1 gram tablet (Colestid) 1 g PO BID 10/16/23 [History Last Taken Unknown] donepezil 5 mg tablet 5 mg PO DAILY 10/16/23 [History Last Taken Unknown] lisinopril 10 mg tablet 20 mg PO DAILY blood pressure 10/16/23 [History Last Taken Unknown] atorvastatin 40 mg tablet 40 mg PO QHS 11/13/23 [History Last Taken Unknown] famotidine 20 mg tablet 20 mg PO DAILY 11/13/23 [History Last Taken Unknown] metoprolol tartrate 25 mg tablet 25 mg PO Q12H 11/13/23 [History Last Taken Unknown] tamsulosin 0.4 mg capsule 0.4 mg PO DAILY 11/13/23 [History Last Taken Unknown] Allergy/AdvReac Type Severity Reaction Status Date / Time albuterol Allergy Intermediate GI upset Verified 11/13/23 13:02 cyclobenzaprine Allergy Intermediate mental Verified 11/13/23 13:02 [From Flexeril] status change hydrocodone [From Vicodin] Allergy Intermediate muscle Verified 11/13/23 13:02 twitching oxycodone Allergy Intermediate Vomiting Verified 11/13/23 13:02 amoxicillin Allergy Mild Swelling Verified 11/13/23 13:02 clindamycin Allergy Mild Swelling Verified 11/13/23 13:02 diatrizoate meglumine Allergy Mild Itching Verified 11/13/23 13:02 Tetanus Vaccines and Toxoid Allergy Mild Hives Verified 11/13/23 13:02 codeine AdvReac Intermediate Nausea & Verified 11/13/23 13:02 Vomiting benzonatate AdvReac Mild Vomiting Verified 11/13/23 13:02 [From Tessalon Perles] hydrochlorothiazide AdvReac Mild intolerance Verified 11/13/23 13:02 [From Dyazide] triamterene [From Dyazide] AdvReac Mild intolerance Verified 11/13/23 13:02 erythromycin base AdvReac Nausea Verified 11/13/23 13:02 Family History Mother , Age 76 heart attack Myocardial infarction Heart disease Cardiomyopathy Hypertension Osteoporosis Father , Heart Disease Age 86 Heart disease Parkinson disease CVA (cerebral vascular accident) Hypertension Unknown Thyroid disorder Stomach ulcer Surgical History History of appendectomy History of colonoscopy (~08/2020) History of coronary artery stent placement History of esophagogastroduodenoscopy (EGD) (~08/2020) History of hysterectomy History of thyroidectomy Presence of coronary angioplasty implant and graft (~09/01/15) Social History household members: spouse Smoking Status: Never smoker alcohol intake: current alcohol intake frequency: holidays/special occasions only Alcohol type: wine substance use type: does not use diet: other caffeine: Yes Type: coffee Number of servings: 3 what type of physical activity do you participate in: walking frequency: 3-4 times per week seatbelt use: always do you feel safe at home: Yes ROS Constitutional Constitutional: Reports weakness; Denies anorexia, change in weight, chills, fatigue, fever(s), malaise, night sweats or other Eyes Eyes: Denies blurry vision, change in eye color, change in vision, discharge from eye(s), double vision, erythema, eye pain, loss of vision or other ENT HEENT: Denies abnormal hearing, dysphagia, ear pain, epistaxis, headache(s), hearing loss, nasal congestion, nasal discharge, post nasal drip, sinus pressure, sore throat or other Cardiovascular Cardiovascular: Denies chest pain, claudication, dyspnea on exertion, edema, lightheadedness, orthopnea, palpitations, paroxysmal nocturnal dyspnea, rapid heart rate, syncope or other Respiratory/Chest Respiratory/Chest: Denies cough, dyspnea, excessive phlegm production, hemoptysis, productive cough, shortness of breath at rest, shortness of breath with exertion, wheezing or other Gastrointestinal Gastrointestinal: Denies abdominal pain, coffee ground emesis, constipation, diarrhea, dyspepsia, hematemesis, hematochezia, loose stools, melena, nausea, vomiting or other Genitourinary Genitourinary: Denies burning urination, difficulty urinating, dysuria, hematuria, nocturia, urinary frequency, urinary hesitancy, urinary incontinence, urinary urgency or other Musculoskeletal Musculoskeletal: Reports back pain and neck pain Neurologic Neurologic: Reports abnormal gait, abnormal speech, confusion, disequilibrium, tremor(s) and other Details: Difficulty walking ; Denies dizziness, focal weakness, headache(s), numbness, paresthesias, seizure-like activity, seizures, syncope or tingling Psychiatric Psychiatric: Denies anxiety, depression, homicidal ideation, suicidal ideation or other Endocrine Endocrinology: Denies change in body appearance, cold intolerance, excessive sweating, heat intolerance, polydipsia, polyuria or other Hematologic/Lymphatic Hematologic/Lymphatic: Denies anemia, easy bleeding, easy bruising, lymphadenopathy or other Allergic/Immunologic Allergic/Immunologic: Denies rhinitis, hives, eczemia, asthma or other Vital Signs Vital Signs Vital Signs: 11/13/23 13:02 11/13/23 14:55 11/13/23 14:30 Temperature 97.8 F Temperature Source Temporal Pulse Rate 78 73 Respiratory Rate 16 22 H Blood Pressure 148/100 H 229/67 H Blood Pressure Mean 116 112 Pulse Ox 96 Oxygen Delivery Method Room Air Room Air 11/13/23 15:30 11/13/23 16:20 11/13/23 16:34 Temperature Temperature Source Pulse Rate 59 L 80 71 Respiratory Rate 12 14 19 H Blood Pressure 168/81 H 170/96 H Blood Pressure Mean 108 103 Pulse Ox 97 98 Oxygen Delivery Method 11/13/23 17:00 Temperature Temperature Source Pulse Rate Respiratory Rate Blood Pressure 184/70 H Blood Pressure Mean 105 Pulse Ox Oxygen Delivery Method Weight Weight: 52.163 kg Body Mass Index (BMI) 20.3 Physical Exam Const alert, oriented x3, no apparent distress, average body habitus and well nourished; Negative for healthy appearing Constitutional Narrative: Anxious appearing, elderly, white female, sitting up in bed, voice is shaky with intermittent word finding difficulties, patient has a fine tremor, appears nontoxic and currently comfortable General Appearance: cooperative HEENT normocephalic, head/scalp atraumatic, hearing grossly normal bilaterally and moist oral mucous membranes Eyes PERRL, EOMs intact bilaterally and conjunctivae normal Eyes Narrative: No scleral icterus Neck no lymphadenopathy and supple Neck Narrative: Bilateral carotid bruits, trachea midline, no thyroid enlargement Resp normal respiratory effort, no retractions, no use of accessory muscles and clear to auscultation bilaterally Auscultation: Negative for rales, rhonchi or wheezes Cardio regular rate, regular rhythm, S1 normal heart sound, S2 normal heart sound, no rub, no gallops and no clicks; Negative for no murmurs Cardio Narrative: Intermittent ectopy, 3 out of 6 systolic murmur loudest at right upper sternal border GI normal to inspection, nondistended, normoactive bowel sounds, soft to palpation and non-tender Extremity no clubbing, cyanosis or edema Extremity Narrative: Pedal pulses and radial pulses are 2+ Skin no rashes or lesions noted, no wounds, skin turgor normal, no petechiae and no mottling Neuro oriented x3, CN's II-XII intact bilaterally and moves all extremities Neuro Narrative: Is able to move right leg but has difficulty moving it due to pain, reflexes are very brisk 4+ bilateral upper and lower extremities, fine tremor noted on exam, patient with word finding difficulties intermittently and decreased attention to task, no focal deficits noted but patient does have significant generalized weakness Speech: Negative for speech normal Motor Exam: Negative for strength 5/5 throughout Psych Psych Narrative: Affect is flat and patient seems anxious Results Lab / Micro Data Attestation: I reviewed the patient's lab results. 11/13/23 15:03 11/13/23 15:03 Labs: Laboratory Results - last 24 hr 11/13/23 15:03: WBC 5.5, RBC 4.68, Hgb 14.2, Hct 42.0, MCV 89.7, MCH 30.3, MCHC 33.8, RDW Std Deviation 41.2, RDW Coeff of Jase 12.4, Plt Count 269, MPV 8.2, Immature Gran % (Auto) 0.200, Neut % (Auto) 65.7, Lymph % (Auto) 23.1, [place] % (Auto) 8.9, Eos % (Auto) 1.6, Baso % (Auto) 0.5, Absolute Neuts (auto) 3.6, Absolute Lymphs (auto) 1.27, Nucleated RBC % 0, PT 13.1, INR 1.0, APTT 29.4, Sodium 141, Potassium 3.5, Chloride 110 H, Carbon Dioxide 30.0, Anion Gap 1 L, BUN 19 H, Creatinine 0.92, Estim Creat Clear Calc 40.83, Est GFR (MDRD) Af Amer 76, Est GFR (MDRD) Non-Af 63, BUN/Creatinine Ratio 20.7 H, Glucose 99, Calcium 9.2, Troponin I High Sens 8 Imaging Radiology Impression Head/Neck CTA 11/13/23 14:48 IMPRESSION: No acute intracranial findings. No significant major vessel vaso-occlusive disease in the head or neck. No significant interval change from the prior study. Electronically Signed: Aris Soares MD at 16:44 EST , Chest X-Ray 11/13/23 16:05 IMPRESSION: No radiographic evidence of acute cardiopulmonary disease. Electronically Signed: Aris Soares MD at 17:13 EST , Assessment & Plan Assessment/Plan (1) Ataxia: (2) Back pain: (3) Falls: (4) Dysmetria: (5) Memory loss: (6) Systolic murmur: (7) Gait disturbance: (8) Balance disorder: PLAN: Plan Ataxia/dysmetria/memory loss/gait disturbance/balance disorder -Highly doubtful for stroke but will rule out and follow protocol for now -Suspect upper motor neuron lesions as she has significant hyperreflexia -Significant tremor noted on exam as well -Add aspirin 81 mg daily -Check lipids -Continue home statin -Check TSH -Check MRI of the cervical spine and brain with and without contrast -Consult neurology Systolic murmur -Check echocardiogram Chronic low back pain with radicular symptoms -Discussed with patient and there is no acute changes at this time -No change in bowel bladder -Recommend proceeding with outpatient lumbar spine MRI as previously ordered CAD/HPL/HTN/carotid artery disease -Previous PCI in 2015 -Patient currently not on any antiplatelet therapy but will start aspirin for the above -Continue home atorvastatin and check lipids -Continue home colestipol -Hold home antihypertensives until stroke can be ruled out then reinitiate if negative -PRNs per stroke protocol are available GERD/history of peptic ulcer disease -Continue home famotidine Hypothyroidism -Continue home levothyroxine -Check TSH Memory impairment -Continue home donepezil DVT prophylaxis -Lovenox daily CODE STATUS -Full code is verified on admission Charges/Coding Visit Charges Inpatient E&M: 09237 Init Hosp L2
[2023-11-13 18:50] LABS: Thyroid Stim Hormone (TSH) 1.53 uIU/mL (0.358-3.74)
[2023-11-13] MEDS: Colestipol 1 GM TABLET PO (21:33)
[2023-11-13] MEDS: Atorvastatin Calcium 40 MG Tablet PO (21:33)
[2023-11-13] MEDS: traZODone 100 MG Tablet PO (21:33)
[2023-11-14] VITALS (7 sets, daily range): BP systolic 120–151; BP diastolic 52–85; PULSE 64–77; RESP 16–18; TEMP 36.4–36.8; O2SAT 94–98; BMI 20.5
[2023-11-14] MEDS: Acetaminophen 325 MG Tablet 650 MG PO ×2 (04:54→16:28)
[2023-11-14] MEDS: Levothyroxine 100 MCG Tablet PO (04:55)
[2023-11-14 07:24] LABS: Absolute Neutrophil Count 2.5 X10^3/uL (2.0-7.7); Basophil# 0.02 X10^3/uL; Basophil% 0.5 % (0-1); Eosinophil# 0.12 X10^3/uL; Hematocrit 38.3 % (37-47); Hemoglobin 13.1 g/dL (12.0-15.0); Lymphocyte % 24.6 % (19-41); Mean Corp Hgb Conc 34.2 g/dL (32-36); Mean Corpuscular Hgb 30.7 pg (27.0-32.0); Mean Corpuscular Volume 89.7 fL (81-99); Mean Platelet Vol. 8.4 fl (6.2-12.0); Monocyte# 0.44 X10^3/uL; Monocyte% 10.8 % (0-10); NRBC Flagged by Analyzer 0 % (0-5); Neutrophil # 2.47 X10^3/uL (2.7-7.7); Neutrophil % 60.9 % (47-70); Platelet Count 242 K/mm3 (150-450); RBC Distribution Width CV 12.4 % (11.6-14.6); RBC Distribution Width SD 40.2 fl (35.1-43.9); Red Blood Count 4.27 M/mm3 (4.2-5.4); White Blood Count 4.1 K/mm3 (4.4-11.0)
--- NOTE | 2023-11-14 07:32 | PCM.PN.HOSP ---
Reason for Visit Reason for Visit: Diagnoses Dorsalgia, unspecified (11/13/23) Cardiac murmur, unspecified (11/13/23) Other abnormalities of gait and mobility (11/13/23) Unspecified abnormalities of gait and mobility (11/13/23) Ataxia, unspecified (11/13/23) Other lack of coordination (11/13/23) Other amnesia (11/13/23) Unspecified fall, initial encounter (11/13/23) Objective Data Objective Data Vital Signs: Vital Signs Temp Pulse Resp BP Pulse Ox O2 Del Method 97.6 F L 73 18 120/70 94 Room Air 11/14/23 04:58 11/14/23 04:58 11/14/23 04:58 11/14/23 04:58 11/14/23 04:58 11/14/23 04:58 Oxygen Delivery Method Room Air Weight: 116 lb 1.6 oz Body Mass Index (BMI) 20.5 Lab / Micro Data 11/14/23 06:45 11/14/23 06:45 Labs: Laboratory Results - last 24 hr 11/13/23 15:03: WBC 5.5, RBC 4.68, Hgb 14.2, Hct 42.0, MCV 89.7, MCH 30.3, MCHC 33.8, RDW Std Deviation 41.2, RDW Coeff of Jase 12.4, Plt Count 269, MPV 8.2, Immature Gran % (Auto) 0.200, Neut % (Auto) 65.7, Lymph % (Auto) 23.1, [place] % (Auto) 8.9, Eos % (Auto) 1.6, Baso % (Auto) 0.5, Absolute Neuts (auto) 3.6, Absolute Lymphs (auto) 1.27, Nucleated RBC % 0, PT 13.1, INR 1.0, APTT 29.4, Sodium 141, Potassium 3.5, Chloride 110 H, Carbon Dioxide 30.0, Anion Gap 1 L, BUN 19 H, Creatinine 0.92, Estim Creat Clear Calc 40.83, Est GFR (MDRD) Af Amer 76, Est GFR (MDRD) Non-Af 63, BUN/Creatinine Ratio 20.7 H, Glucose 99, Calcium 9.2, Troponin I High Sens 8, TSH 1.53 11/14/23 06:45: WBC 4.1 L, RBC 4.27, Hgb 13.1, Hct 38.3, MCV 89.7, MCH 30.7, MCHC 34.2, RDW Std Deviation 40.2, RDW Coeff of Jase 12.4, Plt Count 242, MPV 8.4, Immature Gran % (Auto) 0.200, Neut % (Auto) 60.9, Lymph % (Auto) 24.6, [place] % (Auto) 10.8 H, Eos % (Auto) 3.0, Baso % (Auto) 0.5, Absolute Neuts (auto) 2.5, Absolute Lymphs (auto) 1.00, Nucleated RBC % 0 Radiography Diagnostic Testing: Radiology Impression Head/Neck CTA 11/13/23 14:48 IMPRESSION: No acute intracranial findings. No significant major vessel vaso-occlusive disease in the head or neck. No significant interval change from the prior study. Electronically Signed: Aris Soares MD at 16:44 EST , Chest X-Ray 11/13/23 16:05 IMPRESSION: No radiographic evidence of acute cardiopulmonary disease. Electronically Signed: Aris Soares MD at 17:13 EST , Physical Exam Narrative Patient complaining that she felt pain over left lumbar back then moved to right lumbar back with pain over pelvic and thigh area. She also has truncal ataxia. Physical exam General: Alert, Oriented x3, Cooperative HEENT: Atraumatic, PERRLA, EOMI, Normocephalic Oral: No Gingival or Mucosal Lesions/ Ulcerations Neck: Supple, No JVD, Negative Carotid Bruits Chest wall/Lungs: Air entry diminished in bilateral lung bases. No crepitation/rhonchi Cardiovascular: Regular rate, Regular Rhythm, Normal S1, Normal S2, systolic murmur over right second ICS in the [place] Abdomen: Bowel Sounds Present, Soft, Non Tender, Non-Distended : No dysuria. No renal angle tenderness. No suprapubic tenderness. Extremities: No edema, Capillary Refill Less than 3 Seconds Skin: No rashes, No breakdown Musculoskeletal: Increased muscle stiffness, hypertonia at knee and hip joints. Mild tenderness over lumbar area. Neurological: Cranial nerves II-XII grossly intact, Knee jerk 3+. Muscle strength decreased 4/5 at knees and hip joints. Truncal ataxia. Psych/Mental Status: Normal Affect, Appropriate. HEENT normocephalic, head/scalp atraumatic, hearing grossly normal bilaterally and moist oral mucous membranes Eyes PERRL, EOMs intact bilaterally and conjunctivae normal Eyes Narrative: No scleral icterus Neck no lymphadenopathy and supple Neck Narrative: Bilateral carotid bruits, trachea midline, no thyroid enlargement Resp normal respiratory effort, no retractions, no use of accessory muscles and clear to auscultation bilaterally Auscultation: Negative for rales, rhonchi or wheezes Cardio regular rate, regular rhythm, S1 normal heart sound, S2 normal heart sound, no rub, no gallops and no clicks; Negative for no murmurs Cardio Narrative: Intermittent ectopy, 3 out of 6 systolic murmur loudest at right upper sternal border GI normal to inspection, nondistended, normoactive bowel sounds, soft to palpation and non-tender Extremity no clubbing, cyanosis or edema Extremity Narrative: Pedal pulses and radial pulses are 2+ Skin no rashes or lesions noted, no wounds, skin turgor normal, no petechiae and no mottling Neuro oriented x3, CN's II-XII intact bilaterally and moves all extremities Neuro Narrative: Is able to move right leg but has difficulty moving it due to pain, reflexes are very brisk 4+ bilateral upper and lower extremities, fine tremor noted on exam, patient with word finding difficulties intermittently and decreased attention to task, no focal deficits noted but patient does have significant generalized weakness Speech: Negative for speech normal Motor Exam: Negative for strength 5/5 throughout Psych Psych Narrative: Affect is flat and patient seems anxious Assessment & Plan Assessment/Plan (1) Ataxia: (2) Falls: (3) Balance disorder: PLAN: Plan This 78-year-old female came to ED with low back pain and headache and recurrent falls. Patient also has gait incoordination/ataxia, falling on the left side, sleep within the last 1 to 2 months, memory loss and dysmetria. LK W 20 weeks ago 1. Gait instability/truncal ataxia, dysmetria with features concerning for subacute cerebellar ataxia: Patient is admitted in PCU. Seen by neurologist. Continue aspirin 81 mg daily. MRI brain with and without contrast along with cervical and thoracic spine. High-dose thiamine for possible [place], 500 mg IV every 8 hourly for 1 day, to 250 mg IV 8 hourly for 3 days and then 100 mg daily afterwards. Ordered, labwork to send from serum: thiamine, b12, celiac disease testing, ELENI with reflex, ssa/ssb, sypillis, HIV, copper, Hba1c, TSH, TPO, anti-TF -may need LP/ further testing based upon results of MR Systolic murmur 2D echo is ordered. Chronic low back pain with radicular symptoms: She states that her pain is mainly restricted to lower back does not radiate to lower thigh or knee but feels more like a spasm. No acute change. Does not seem sciatica type pain. No change in bowel bladder function. -Recommend proceeding with outpatient lumbar spine MRI as previously ordered CAD/HPL/HTN/carotid artery disease -Previous PCI in 2015 -Patient currently not on any antiplatelet therapy but will start aspirin for the above -Continue home atorvastatin and check lipids -Continue home colestipol -Hold home antihypertensives until stroke can be ruled out then reinitiate if negative -PRNs per stroke protocol are available GERD/history of peptic ulcer disease -Continue home famotidine Hypothyroidism -Continue home levothyroxine TSH free T4 and anti-TPO antibodies ordered Memory impairment -Continue home donepezil DVT prophylaxis -Lovenox daily CODE STATUS -Full code is verified on admission Total time of the visit including total time spent in counseling or coordination of care, (more than 50% of the total time, spent in obtaining medical information from nurses and other ancillary care providers,explaining to the patient about labs, imaging, diagnosis and management of active complex medical conditions), complete neuroexam, discussion with neurologist, review of labs and imaging is 40 minutes. Charges/Coding Visit Charges Inpatient E&M: 58020 Subs Hosp L3
--- NOTE | 2023-11-14 08:06 | EKG12_ITS ---
Test Reason : CP Blood Pressure : / mmHG Vent. Rate : 067 BPM Atrial Rate : 067 BPM P-R Int : 176 ms QRS Dur : 072 ms QT Int : 418 ms P-R-T Axes : 060 039 064 degrees QTc Int : 441 ms Normal sinus rhythm Possible Left atrial enlargement Borderline ECG Confirmed by Allen Alvarez ([id number]), editor dictionary MENDOZA ACOSTA ([id number]) on 11/15/2023 9:33:37 AM Referred By: Tahira Meadows Confirmed By:Allen Alvarez
[2023-11-14 08:08] LABS: ALB/GLOB Ratio 1.1 RATIO (0.9-2.4); AST(SGOT) 21 U/L (15-37); Alanine Aminotransfer ALT/SGPT 20 U/L (13-56); Albumin, Serum 3.3 g/dL (3.2-5.0); Alkaline Phosphatase 76 U/L (45-117); Anion Gap 6 (5-15); BUN 17 mg/dL (7-18); BUN/Creat Ratio 18.9 RATIO (10-20); Calcium,Total 9.1 mg/dL (8.5-10.1); Chloride 106 mmol/L (98-107); Cholesterol 136 mg/dL (200); EST Glomerular Filtration Rate 64 mL/min (>60); Est Glom Filt Rate - Afr Amer 78 mL/min (>60); Estimated Creatinine Clearance 41.93 ml/min; Globulin 2.9 g/dL (2.2-4.2); Glucose 102 mg/dL (74-106); High Density Lipoprotein 68 mg/dL; Phosphorus 4.1 mg/dL (2.5-4.9); Potassium 3.3 mmol/L (3.5-5.1); Protein, Total 6.2 g/dL (6.4-8.2); Sodium Level 140 mmol/L (136-145); Triglycerides 68 mg/dL; Very Low Density Lipoprotein 14 mg/dL (5-40)
[2023-11-14] MEDS: Enoxaparin 40 MG/0.4 ML Syringe SC (08:19)
[2023-11-14] MEDS: Tamsulosin HCl 0.4 MG Capsule 0.400000000000000022 MG PO (08:19)
[2023-11-14] MEDS: Aspirin 81 MG TAB.CHEW PO (08:19)
[2023-11-14] MEDS: Donepezil HCl 5 MG Tablet PO (08:19)
[2023-11-14] MEDS: Famotidine 20 MG Tablet PO (08:19)
--- NOTE | 2023-11-14 10:35 | CASEMGMT ---
CARIE RAINES Face to Face with patient for initial transition planning/care coordination assessment. RN CM introduced self and role at [facility]. Patient sitting in chair, alert and oriented. Patient willing to participate in assessment and is able to answer all questions appropriately. Care providers, pharmacy, and demographics verified. PCP: Ernesto Specialists: DAVIDSON, cardiologsit; Abigail, neurologist Preferred Pharmacy: [facility] Insurance: [employer] Prescription Benefit: yes Living Will/HPOA: yes, daughter Jolanta DIXON: , daugther Living Arrangements: Patient lives with in a single story home with 2 steps and railing to enter the home. Patient was independent at home. Transportation: self, DME/HHC: Patient denies previous HHC or SNF. Patient has grab bars at home. Patient may benefit from walker at discharge. Patient wishes to discharge home, will monitor progress with therapy for HHC at discharge. Patient states he has no further needs or concerns at this time. CM to follow for discharge planning needs that may arise. Disposition Plan: Patient to discharge home with family support and follow-up plans in place. Will monitor for HHC and walker at discharge. Portia ZUÑIGA, RN, CM
[2023-11-14] MEDS: Colestipol 1 GM TABLET PO ×2 (10:36→21:00)
--- NOTE | 2023-11-14 13:22 | CON.PCM.NE_ITS ---
Assessment and Plan: Neuro Assessment/Plan MANDA AKBAR is a 78 F with a past medical history of , being evaluated by Teleneurology for Diagnosis: Plan: Transfer to [facility] for the following reasons: I personally attended this patient and spent a total time of minutes evaluating this patient including clinical assessment, review of chart, medical history imaging, and determining appropriate treatment and workup. HPI Consult Data Date of Consult: 11/14/23 HPI Narrative HPI Narrative: 78 yo Fw PMH?HTN, hypothyroidism,?CAD, memory loss, HTN, GERD, GI bleed 2/2 AVMs admitted with unsteady gait and difficulty ambulating. Had noted two days of bilateral LE incoordination. [place] likely veering. Feels like falling. Has L headaches over L eye for past 3 months. [facility] Medical History Abdominal bloating Angina pectoris Aortic insufficiency Aortic valve disease Atherosclerotic heart disease of [place] coronary artery without angina pectoris Atrial fibrillation Bilateral carotid artery stenosis C. difficile colitis Carotid artery bruit Carotid stenosis, right Cataracts, bilateral Chest pain Chronic headache Colitis Constipation Diarrhea Diarrhea Diastolic dysfunction Dysphagia Essential hypertension Family history of premature coronary heart disease Fatigue GERD (gastroesophageal reflux disease) GI bleed GI problem Hearing problem History of GI bleed HLD (hyperlipidemia) Hypothyroidism Hypothyroidism Insomnia Iron deficiency anemia due to chronic blood loss Ischemic colitis FPC use of drug Lung nodule, multiple Migraines Non-smoker Nonspecific abnormal serum enzyme levels Osteoarthritis Palpitations Peptic ulcer disease Presence of stent in coronary artery (~04/19/21) Seasonal allergies Segmental colitis associated with diverticulosis Thyroid dysfunction TIA (transient ischemic attack) Ventricular hypertrophy Vision problem Home Medications levothyroxine 100 mcg tablet 100 mcg PO DAILY thyroid 04/28/21 [History Last Taken 07/28/21] trazodone 50 mg tablet 100 mg PO QHS sleep 05/04/22 [History Last Taken Unknown] potassium chloride 20 mEq tablet,extended release 20 meq PO DAILY supplement #90 tabs 05/26/22 [Rx Last Taken Unknown] carvedilol 6.25 mg tablet (Coreg) 6.25 mg PO BID #60 tabs 10/16/23 [Rx Last Taken Unknown] colestipol 1 gram tablet (Colestid) 1 g PO BID 10/16/23 [History Last Taken Unknown] donepezil 5 mg tablet 5 mg PO DAILY 10/16/23 [History Last Taken Unknown] lisinopril 10 mg tablet 20 mg PO DAILY blood pressure 10/16/23 [History Last Taken Unknown] atorvastatin 40 mg tablet 40 mg PO QHS 11/13/23 [History Last Taken Unknown] famotidine 20 mg tablet 20 mg PO DAILY 11/13/23 [History Last Taken Unknown] metoprolol tartrate 25 mg tablet 25 mg PO Q12H 11/13/23 [History Last Taken Unknown] tamsulosin 0.4 mg capsule 0.4 mg PO DAILY 11/13/23 [History Last Taken Unknown] Allergy/AdvReac Type Severity Reaction Status Date / Time albuterol Allergy Intermediate GI upset Verified 11/13/23 13:02 cyclobenzaprine Allergy Intermediate mental Verified 11/13/23 13:02 [From Flexeril] status change hydrocodone [From Vicodin] Allergy Intermediate muscle Verified 11/13/23 13:02 twitching oxycodone Allergy Intermediate Vomiting Verified 11/13/23 13:02 amoxicillin Allergy Mild Swelling Verified 11/13/23 13:02 clindamycin Allergy Mild Swelling Verified 11/13/23 13:02 diatrizoate meglumine Allergy Mild Itching Verified 11/13/23 13:02 Tetanus Vaccines and Toxoid Allergy Mild Hives Verified 11/13/23 13:02 codeine AdvReac Intermediate Nausea & Verified 11/13/23 13:02 Vomiting benzonatate AdvReac Mild Vomiting Verified 11/13/23 13:02 [From Tessalon Perles] hydrochlorothiazide AdvReac Mild intolerance Verified 11/13/23 13:02 [From Dyazide] triamterene [From Dyazide] AdvReac Mild intolerance Verified 11/13/23 13:02 erythromycin base AdvReac Nausea Verified 11/13/23 13:02 Family History Mother , Age 76 heart attack Myocardial infarction Heart disease Cardiomyopathy Hypertension Osteoporosis Father , Heart Disease Age 86 Heart disease Parkinson disease CVA (cerebral vascular accident) Hypertension Unknown Thyroid disorder Stomach ulcer Surgical History History of appendectomy History of colonoscopy (~08/2020) History of coronary artery stent placement History of esophagogastroduodenoscopy (EGD) (~08/2020) History of hysterectomy History of thyroidectomy Presence of coronary angioplasty implant and graft (~09/01/15) Social History household members: spouse Smoking Status: Never smoker alcohol intake: current alcohol intake frequency: holidays/special occasions only Alcohol type: wine substance use type: does not use diet: other caffeine: Yes Type: coffee Number of servings: 3 what type of physical activity do you participate in: walking frequency: 3-4 times per week seatbelt use: always do you feel safe at home: Yes Vital Signs Vital Signs Vital Signs: 11/13/23 14:55 11/13/23 14:30 11/13/23 15:30 Temperature Temperature Source Pulse Rate 73 59 L Pulse Strength Respiratory Rate 22 H 12 Respiratory Effort Respiratory Depth Respiratory Pattern Blood Pressure 229/67 H 168/81 H Blood Pressure Mean 112 108 Blood Pressure Source Blood Pressure Position Blood Pressure Location Pulse Ox 97 Oxygen Delivery Method Room Air 11/13/23 16:20 11/13/23 16:34 11/13/23 17:00 Temperature Temperature Source Pulse Rate 80 71 Pulse Strength Respiratory Rate 14 19 H Respiratory Effort Respiratory Depth Respiratory Pattern Blood Pressure 170/96 H 184/70 H Blood Pressure Mean 103 105 Blood Pressure Source Blood Pressure Position Blood Pressure Location Pulse Ox 98 Oxygen Delivery Method 11/13/23 19:00 11/13/23 20:09 11/13/23 20:45 Temperature 98.2 F 97.5 F L Temperature Source Oral Pulse Rate 73 91 77 Pulse Strength Respiratory Rate 19 H 18 18 Respiratory Effort Respiratory Depth Respiratory Pattern Blood Pressure 164/91 H 184/79 H Blood Pressure Mean 115 114 Blood Pressure Source Monitor Blood Pressure Position Sitting Blood Pressure Location Right Arm Pulse Ox 97 98 97 Oxygen Delivery Method Room Air Room Air 11/13/23 21:39 11/13/23 22:45 11/14/23 00:45 Temperature 97.9 F Temperature Source Oral Pulse Rate 64 Pulse Strength Normal (2+) Respiratory Rate 18 Respiratory Effort Normal Non-Labored Respiratory Depth Normal Respiratory Pattern Normal Blood Pressure 124/52 H Blood Pressure Mean 76 Blood Pressure Source Monitor Blood Pressure Position Semi-Fowlers Blood Pressure Location Right Arm Pulse Ox 94 Oxygen Delivery Method Room Air Room Air 11/14/23 00:54 11/14/23 04:58 11/14/23 08:07 Temperature 97.6 F L 98.0 F Temperature Source Axillary Oral Pulse Rate 73 70 Pulse Strength Respiratory Rate 18 16 Respiratory Effort Normal Non-Labored Respiratory Depth Normal Respiratory Pattern Normal Blood Pressure 120/70 151/79 H Blood Pressure Mean 86 103 Blood Pressure Source Monitor Monitor Blood Pressure Position Semi-Fowlers Semi-Fowlers Blood Pressure Location Right Arm Right Arm Pulse Ox 94 96 Oxygen Delivery Method Room Air Room Air Room Air 11/14/23 07:16 11/14/23 08:15 11/14/23 08:30 Temperature Temperature Source Pulse Rate Pulse Strength Normal (2+) Respiratory Rate Respiratory Effort Normal Non-Labored Respiratory Depth Normal Respiratory Pattern Normal Blood Pressure Blood Pressure Mean Blood Pressure Source Blood Pressure Position Blood Pressure Location Pulse Ox 96 Oxygen Delivery Method Room Air Room Air 11/14/23 12:02 Temperature 98.0 F Temperature Source Oral Pulse Rate 77 Pulse Strength Respiratory Rate 16 Respiratory Effort Respiratory Depth Respiratory Pattern Blood Pressure 137/70 H Blood Pressure Mean 92 Blood Pressure Source Monitor Blood Pressure Position Sitting Blood Pressure Location Right Arm Pulse Ox 97 Oxygen Delivery Method Room Air Weight Weight: 52.662 kg Body Mass Index (BMI) 20.5 EEG Results Procedure Details EEG Procedure Details: MANDA AKBAR is a 78 year old F with a past medical history of , who presents for evaluation of Electroencephalogram on DATE at TIME NIHSS NIHSS Nursing Documentation NIHSS Nursing Documentation: NIHSS: Ischemic Stroke/TIA Start: 11/13/23 20:39 Text: For PCU Patients: NIH and Neuro Check every 4 Status: Active hours and PRN Freq: [id number] Protocol: Activity Type Activity Date Activity User E-sign Co-sign Detail Recorded Client Recorded Date Recorded By Document 11/14/23 12:05 SS Desktop 11/14/23 12:12 SS 11/14/23 12:05 NIH Stroke Scale [NIHSS] A score of 0 is normal or asymptomatic . Total possible score is 42. Inpatient: RN or Physician to activate a stroke alert for onset of new stroke symptoms or with NIHSS increase >/= 3 points. Following change in neurological status, NIHSS will be performed per physician order or more frequently PRN. -1a. Level of Consciousness Alert; keenly responsive -1b. LOC Questions Answers BOTH questions correctly. -1c. LOC Commands Performs both tasks correctly . -2. Best Gaze Normal -3. Visual No visual loss -4. Facial Palsy Minor paralysis (flattened nasolabial fold , asymmetry on smiling) -5a. Left Arm No drift; arm holds 90 (or 45 ) degrees for full 10 seconds -5b. Right Arm No drift; arm holds 90 (or 45 ) degrees for full 10 seconds -6a. Left Leg No drift; leg holds 30-degree position for full 5 seconds -6b. Right Leg No drift; leg holds 30-degree position for full 5 seconds -7. Limb Ataxia Absent -8. Sensory Normal; no sensory loss -9. Best Language No aphasia; normal -10. Dysarthria Normal -11. Extinction and Inattention No abnormality -Total 1 Query Text:A score of 0 is normal or asymptomatic. Total possible score is 42 . ED: Notify Physician for NIHSS increase by > / = 3 points. Inpatient: RN or Physician to activate a stroke alert for NIHSS increase of > / = 3 points. Coma Scale [Assess] -Eye Opening Spontaneous -Motor Obeys Commands -Verbal Oriented [Total] -Coma Scale Total 15 NIHSS: Ischemic Stroke/TIA Start: 11/13/23 20:39 Text: For ICU Patients: NIH sroke scale at Status: Active presentation and every 2 hours or with change in RN caregiver Freq: [id number] Protocol: Activity Type Activity Date Activity User E-sign Co-sign Detail Recorded Client Recorded Date Recorded By Document 11/14/23 08:05 Desktop 11/14/23 08:17 11/14/23 08:05 NIH Stroke Scale [NIHSS] A score of 0 is normal or asymptomatic . Total possible score is 42. Inpatient: RN or Physician to activate a stroke alert for onset of new stroke symptoms or with NIHSS increase >/= 3 points. Following change in neurological status, NIHSS will be performed per physician order or more frequently PRN. -1a. Level of Consciousness Alert; keenly responsive -1b. LOC Questions Answers BOTH questions correctly. -1c. LOC Commands Performs both tasks correctly . -2. Best Gaze Normal -3. Visual No visual loss -4. Facial Palsy Minor paralysis (flattened nasolabial fold , asymmetry on smiling) -5a. Left Arm No drift; arm holds 90 (or 45 ) degrees for full 10 seconds -5b. Right Arm No drift; arm holds 90 (or 45 ) degrees for full 10 seconds -6a. Left Leg No drift; leg holds 30-degree position for full 5 seconds -6b. Right Leg No drift; leg holds 30-degree position for full 5 seconds -7. Limb Ataxia Present in 1 limb -8. Sensory Normal; no sensory loss -9. Best Language No aphasia; normal -10. Dysarthria Normal -11. Extinction and Inattention No abnormality -Total 2 Query Text:A score of 0 is normal or asymptomatic. Total possible score is 42 . ED: Notify Physician for NIHSS increase by > / = 3 points. Inpatient: RN or Physician to activate a stroke alert for NIHSS increase of > / = 3 points. Lab / Micro Data 11/14/23 06:45 11/14/23 06:45 Labs: Laboratory Results - last 24 hr 11/13/23 15:03: WBC 5.5, RBC 4.68, Hgb 14.2, Hct 42.0, MCV 89.7, MCH 30.3, MCHC 33.8, RDW Std Deviation 41.2, RDW Coeff of Jase 12.4, Plt Count 269, MPV 8.2, Immature Gran % (Auto) 0.200, Neut % (Auto) 65.7, Lymph % (Auto) 23.1, [place] % (Auto) 8.9, Eos % (Auto) 1.6, Baso % (Auto) 0.5, Absolute Neuts (auto) 3.6, Absolute Lymphs (auto) 1.27, Nucleated RBC % 0, PT 13.1, INR 1.0, APTT 29.4, Sodium 141, Potassium 3.5, Chloride 110 H, Carbon Dioxide 30.0, Anion Gap 1 L, BUN 19 H, Creatinine 0.92, Estim Creat Clear Calc 40.83, Est GFR (MDRD) Af Amer 76, Est GFR (MDRD) Non-Af 63, BUN/Creatinine Ratio 20.7 H, Glucose 99, Calcium 9.2, Troponin I High Sens 8, TSH 1.53 11/14/23 06:45: WBC 4.1 L, RBC 4.27, Hgb 13.1, Hct 38.3, MCV 89.7, MCH 30.7, MCHC 34.2, RDW Std Deviation 40.2, RDW Coeff of Jase 12.4, Plt Count 242, MPV 8.4, Immature Gran % (Auto) 0.200, Neut % (Auto) 60.9, Lymph % (Auto) 24.6, [place] % (Auto) 10.8 H, Eos % (Auto) 3.0, Baso % (Auto) 0.5, Absolute Neuts (auto) 2.5, Absolute Lymphs (auto) 1.00, Nucleated RBC % 0, Sodium 140, Potassium 3.3 L , Chloride 106, Carbon Dioxide 28.0, Anion Gap 6, BUN 17, Creatinine 0.90, Estim Creat Clear Calc 41.93, Est GFR (MDRD) Af Amer 78, Est GFR (MDRD) Non-Af 64, BUN/Creatinine Ratio 18.9, Glucose 102, Calcium 9.1, Phosphorus 4.1, Magnesium 2.0, Total Bilirubin 0.50, AST 21, ALT 20, Alkaline Phosphatase 76, Total Protein 6.2 L, Albumin 3.3, Globulin 2.9, Albumin/Globulin Ratio 1.1, Triglycerides 68, Cholesterol 136, LDL Cholesterol 54, VLDL Cholesterol 14, HDL Cholesterol 68 Imaging Radiology Impression Head/Neck CTA 11/13/23 14:48 IMPRESSION: No acute intracranial findings. No significant major vessel vaso-occlusive disease in the head or neck. No significant interval change from the prior study. Electronically Signed: Aris Soares MD at 16:44 EST , Chest X-Ray 11/13/23 16:05 IMPRESSION: No radiographic evidence of acute cardiopulmonary disease. Electronically Signed: Aris Soares MD at 17:13 EST , Echocardiogram 11/13/23 18:12 Interpretation Summary The left ventricular ejection fraction is 65 %. Stage 1 diastolic dysfunction. Mild aortic stenosis. Mild (1+) aortic valve insufficiency. Bubble contrast study is negative for PFO/ASD. The study was technically difficult. Ordering Physician: Tahira Meadows Referring Physician: Smith Orozco Performed By: Evelia Patton, ZAIN, RVT Active Medications Active Medications Active Medications: Current Medications Generic Name Dose Route Start Last Admin Trade Name Freq PRN Reason Stop Dose Admin Acetaminophen 650 mg 11/13/23 20:39 11/14/23 04:54 Acetaminophen 325 Mg Tablet PO 650 mg Q4H PRN PRN Administration Pain 1-10 Or Fever>99.6 Aspirin 81 mg 11/14/23 08:00 11/14/23 08:19 Aspirin 81 Mg Tab.Chew PO 81 mg BREAKFAST TRINITY Administration Atorvastatin Calcium 40 mg 11/13/23 22:00 11/13/23 21:33 Atorvastatin Calcium 40 Mg Tablet PO 40 mg QHS [facility]INITY Administration Colestipol HCl 1 gm 11/13/23 22:00 11/14/23 10:36 Colestipol 1 Gm Tablet PO 1 gm BID TRINITY Administration Donepezil HCl 5 mg 11/14/23 10:00 11/14/23 08:19 Donepezil Hcl 5 Mg Tablet PO 5 mg DAILY TRINITY Administration Enoxaparin Sodium 40 mg 11/14/23 10:00 11/14/23 08:19 Enoxaparin 40 Mg/0.4 Ml Syringe SC 40 mg DAILY TRINITY Administration Famotidine 20 mg 11/14/23 10:00 11/14/23 08:19 Famotidine 20 Mg Tablet PO 20 mg DAILY [facility]ITY Administration Hydralazine HCl 5 mg 11/13/23 20:39 Hydralazine 20 Mg/Ml Vial IV Q30M PRN to maintain BP goals Sodium Chloride 250 mls @ 15 mls/hr 11/13/23 21:15 IV .[id number] PRN Additional IVPB Infusion Sodium Chloride 250 mls @ 15 mls/hr 11/13/23 21:15 IV .[id number] PRN Saline Flush Iopamidol 0 ml 11/13/23 20:39 11/14/23 04:56 Contrast Allergy Safety Check IV Not Given X1 TRINITY Labetalol HCl 10 - 20 mg 11/13/23 20:39 Labetalol (Prefilled) 20 Mg/4 Ml IV Q10M PRN PRN to Maintain BP Goals Levothyroxine Sodium 100 mcg 11/14/23 06:00 11/14/23 04:55 Levothyroxine 100 Mcg Tablet PO 100 mcg 0600 TRINITY Administration Melatonin 3 mg 11/13/23 20:39 Melatonin 3 Mg Tablet PO QHS PRN PRN INSOMNIA Ondansetron HCl 4 mg 11/13/23 20:39 Ondansetron 4 Mg/2 Ml Vial IV Q8H PRN PRN NAUSEA/VOMITING Senna/Docusate Sodium 2 tablet 11/13/23 20:39 Senna/Docusate Sodium 1 Tablet PO BID PRN PRN Constipation Sodium Chloride 10 - 40 ml 11/13/23 21:15 0.9% Saline Lock 10 Ml Syringe IV UD PRN SALINE FLUSH Tamsulosin HCl 0.4 mg 11/14/23 10:00 11/14/23 08:19 Tamsulosin Hcl 0.4 Mg Capsule PO 0.4 mg DAILY TRINITY Administration Trazodone HCl 100 mg 11/13/23 22:00 11/13/23 21:33 Trazodone 100 Mg Tablet PO 100 mg QHS TRINITY Administration
--- NOTE | 2023-11-14 13:22 | NEURO.CONS ---
Assessment and Plan: Neuro Assessment/Plan #gait instability with concern for subacute cerebellar ataxia -ok to continue ASA 81 daily for now -MRI brain with/without contrast -MRI C and T-spine with/without -Start high dose thiamine for possible wernickes (500 IV q8 x 1 day, 250 IV q 8 x 3 days, 100 daily afterwards) -Initial labwork to send from serum: thiamine, b12, celiac disease testing, ELENI with reflex, ssa/ssb, sypillis, HIV, copper, Hba1c, TSH, TPO, anti-TF -may need LP/ further testing based upon results of MR HPI Consult Data Date of Consult: 11/14/23 HPI Narrative HPI Narrative: 78 yo Fw PMH?HTN, hypothyroidism,?CAD, memory loss, HTN, GERD, GI bleed 2/2 AVMs admitted with unsteady gait and difficulty ambulating. Patients states she has been having worseing back pain and stiffness over past several weeks. Has seen her outpatient neurologist who recommended MRI of the spine. Over the past 2-3 days has noted bilateral LE incoordination. She feels very unsteady while walking and has a sensation of veering or being pulled to the ground. She has has also noted new left sided headaches over L eye for past 3 months. [facility] Medical History Abdominal bloating Angina pectoris Aortic insufficiency Aortic valve disease Atherosclerotic heart disease of bois forte coronary artery without angina pectoris Atrial fibrillation Bilateral carotid artery stenosis C. 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 Lung nodule, multiple Migraines Non-smoker Nonspecific abnormal serum enzyme levels Osteoarthritis Palpitations Peptic ulcer disease Presence of stent in coronary artery (~04/19/21) Seasonal allergies Segmental colitis associated with diverticulosis Thyroid dysfunction TIA (transient ischemic attack) Ventricular hypertrophy Vision problem Home Medications levothyroxine 100 mcg tablet 100 mcg PO DAILY thyroid 04/28/21 [History Last Taken 07/28/21] trazodone 50 mg tablet 100 mg PO QHS sleep 05/04/22 [History Last Taken Unknown] potassium chloride 20 mEq tablet,extended release 20 meq PO DAILY supplement #90 tabs 05/26/22 [Rx Last Taken Unknown] carvedilol 6.25 mg tablet (Coreg) 6.25 mg PO BID #60 tabs 10/16/23 [Rx Last Taken Unknown] colestipol 1 gram tablet (Colestid) 1 g PO BID 10/16/23 [History Last Taken Unknown] donepezil 5 mg tablet 5 mg PO DAILY 10/16/23 [History Last Taken Unknown] lisinopril 10 mg tablet 20 mg PO DAILY blood pressure 10/16/23 [History Last Taken Unknown] atorvastatin 40 mg tablet 40 mg PO QHS 11/13/23 [History Last Taken Unknown] famotidine 20 mg tablet 20 mg PO DAILY 11/13/23 [History Last Taken Unknown] metoprolol tartrate 25 mg tablet 25 mg PO Q12H 11/13/23 [History Last Taken Unknown] tamsulosin 0.4 mg capsule 0.4 mg PO DAILY 11/13/23 [History Last Taken Unknown] Allergy/AdvReac Type Severity Reaction Status Date / Time albuterol Allergy Intermediate GI upset Verified 11/13/23 13:02 cyclobenzaprine Allergy Intermediate mental Verified 11/13/23 13:02 [From Flexeril] status change hydrocodone [From Vicodin] Allergy Intermediate muscle Verified 11/13/23 13:02 twitching oxycodone Allergy Intermediate Vomiting Verified 11/13/23 13:02 amoxicillin Allergy Mild Swelling Verified 11/13/23 13:02 clindamycin Allergy Mild Swelling Verified 11/13/23 13:02 diatrizoate meglumine Allergy Mild Itching Verified 11/13/23 13:02 Tetanus Vaccines and Toxoid Allergy Mild Hives Verified 11/13/23 13:02 codeine AdvReac Intermediate Nausea & Verified 11/13/23 13:02 Vomiting benzonatate AdvReac Mild Vomiting Verified 11/13/23 13:02 [From Tessalon Perles] hydrochlorothiazide AdvReac Mild intolerance Verified 11/13/23 13:02 [From Dyazide] triamterene [From Dyazide] AdvReac Mild intolerance Verified 11/13/23 13:02 erythromycin base AdvReac Nausea Verified 11/13/23 13:02 Family History Mother , Age 76 heart attack Myocardial infarction Heart disease Cardiomyopathy Hypertension Osteoporosis Father , Heart Disease Age 86 Heart disease Parkinson disease CVA (cerebral vascular accident) Hypertension Unknown Thyroid disorder Stomach ulcer Surgical History History of appendectomy History of colonoscopy (~08/2020) History of coronary artery stent placement History of esophagogastroduodenoscopy (EGD) (~08/2020) History of hysterectomy History of thyroidectomy Presence of coronary angioplasty implant and graft (~09/01/15) Social History household members: spouse Smoking Status: Never smoker alcohol intake: current alcohol intake frequency: holidays/special occasions only Alcohol type: wine substance use type: does not use diet: other caffeine: Yes Type: coffee Number of servings: 3 what type of physical activity do you participate in: walking frequency: 3-4 times per week seatbelt use: always do you feel safe at home: Yes Physical Exam Narrative MS: awake, alert, oriented x 3, follows commands, able to name, no aphasia,no dysarthria CN: VFF, EOMI ?no facial droop, nml facial sensation M: ?Antigravity in all extremities, no drift S: nml sensation to LT C: bilateral UE> LE dysmetria, prominent truncal ataxia R: increased tone and reflexes Lab / Micro Data 11/14/23 06:45 11/14/23 06:45 Labs: Laboratory Results - last 24 hr 11/13/23 15:03: WBC 5.5, RBC 4.68, Hgb 14.2, Hct 42.0, MCV 89.7, MCH 30.3, MCHC 33.8, RDW Std Deviation 41.2, RDW Coeff of Jase 12.4, Plt Count 269, MPV 8.2, Immature Gran % (Auto) 0.200, Neut % (Auto) 65.7, Lymph % (Auto) 23.1, [place] % (Auto) 8.9, Eos % (Auto) 1.6, Baso % (Auto) 0.5, Absolute Neuts (auto) 3.6, Absolute Lymphs (auto) 1.27, Nucleated RBC % 0, PT 13.1, INR 1.0, APTT 29.4, Sodium 141, Potassium 3.5, Chloride 110 H, Carbon Dioxide 30.0, Anion Gap 1 L, BUN 19 H, Creatinine 0.92, Estim Creat Clear Calc 40.83, Est GFR (MDRD) Af Amer 76, Est GFR (MDRD) Non-Af 63, BUN/Creatinine Ratio 20.7 H, Glucose 99, Calcium 9.2, Troponin I High Sens 8, TSH 1.53 11/14/23 06:45: WBC 4.1 L, RBC 4.27, Hgb 13.1, Hct 38.3, MCV 89.7, MCH 30.7, MCHC 34.2, RDW Std Deviation 40.2, RDW Coeff of Jase 12.4, Plt Count 242, MPV 8.4, Immature Gran % (Auto) 0.200, Neut % (Auto) 60.9, Lymph % (Auto) 24.6, [place] % (Auto) 10.8 H, Eos % (Auto) 3.0, Baso % (Auto) 0.5, Absolute Neuts (auto) 2.5, Absolute Lymphs (auto) 1.00, Nucleated RBC % 0, Sodium 140, Potassium 3.3 L, Chloride 106, Carbon Dioxide 28.0, Anion Gap 6, BUN 17, Creatinine 0.90, Estim Creat Clear Calc 41.93, Est GFR (MDRD) Af Amer 78, Est GFR (MDRD) Non-Af 64, BUN/Creatinine Ratio 18.9, Glucose 102, Calcium 9.1, Phosphorus 4.1, Magnesium 2.0, Total Bilirubin 0.50, AST 21, ALT 20, Alkaline Phosphatase 76, Total Protein 6.2 L, Albumin 3.3, Globulin 2.9, Albumin/Globulin Ratio 1.1, Triglycerides 68, Cholesterol 136, LDL Cholesterol 54, VLDL Cholesterol 14, HDL Cholesterol 68 Imaging Radiology Impression Head/Neck CTA 11/13/23 14:48 IMPRESSION: No acute intracranial findings. No significant major vessel vaso-occlusive disease in the head or neck. No significant interval change from the prior study. Electronically Signed: Aris Soares MD at 16:44 EST , Chest X-Ray 11/13/23 16:05 IMPRESSION: No radiographic evidence of acute cardiopulmonary disease. Electronically Signed: Aris Soares MD at 17:13 EST Reading Location ID and State: [address] [place] [address] Tel , Service support , Echocardiogram 11/13/23 18:12 Interpretation Summary The left ventricular ejection fraction is 65 %. Stage 1 diastolic dysfunction. Mild aortic stenosis. Mild (1+) aortic valve insufficiency. Bubble contrast study is negative for PFO/ASD. The study was technically difficult. Ordering Physician: Tahira Meadows Referring Physician: Smith Orozco Performed By: Evelia Patton, ZAIN, RVT Active Medications Active Medications Active Medications: Current Medications Generic Name Dose Route Start Last Admin Trade Name Freq PRN Reason Stop Dose Admin Acetaminophen 650 mg 11/13/23 20:39 11/14/23 04:54 Acetaminophen 325 Mg Tablet PO 650 mg Q4H PRN PRN Administration Pain 1-10 Or Fever>99.6 Aspirin 81 mg 11/14/23 08:00 11/14/23 08:19 Aspirin 81 Mg Tab.Chew PO 81 mg BREAKFAST TRINITY Administration Atorvastatin Calcium 40 mg 11/13/23 22:00 11/13/23 21:33 Atorvastatin Calcium 40 Mg Tablet PO 40 mg QHS TRINITY Administration Colestipol HCl 1 gm 11/13/23 22:00 11/14/23 10:36 Colestipol 1 Gm Tablet PO 1 gm BID TRINITY Administration Donepezil HCl 5 mg 11/14/23 10:00 11/14/23 08:19 Donepezil Hcl 5 Mg Tablet PO 5 mg DAILY TRINITY Administration Enoxaparin Sodium 40 mg 11/14/23 10:00 11/14/23 08:19 Enoxaparin 40 Mg/0.4 Ml Syringe SC 40 mg DAILY TRINITY Administration Famotidine 20 mg 11/14/23 10:00 11/14/23 08:19 Famotidine 20 Mg Tablet PO 20 mg DAILY TRINITY Administration Hydralazine HCl 5 mg 11/13/23 20:39 Hydralazine 20 Mg/Ml Vial IV Q30M PRN to maintain BP goals Sodium Chloride 250 mls @ 15 mls/hr 11/13/23 21:15 IV .[id number] PRN Additional IVPB Infusion Sodium Chloride 250 mls @ 15 mls/hr 11/13/23 21:15 IV .[id number] PRN Saline Flush Iopamidol 0 ml 11/13/23 20:39 11/14/23 04:56 Contrast Allergy Safety Check IV Not Given X1 [facility] Labetalol HCl 10 - 20 mg 11/13/23 20:39 Labetalol (Prefilled) 20 Mg/4 Ml IV Q10M PRN PRN to Maintain BP Goals Levothyroxine Sodium 100 mcg 11/14/23 06:00 11/14/23 04:55 Levothyroxine 100 Mcg Tablet PO 100 mcg 0600 [facility] Administration Melatonin 3 mg 11/13/23 20:39 Melatonin 3 Mg Tablet PO QHS PRN PRN INSOMNIA Ondansetron HCl 4 mg 11/13/23 20:39 Ondansetron 4 Mg/2 Ml Vial IV Q8H PRN PRN NAUSEA/VOMITING Senna/Docusate Sodium 2 tablet 11/13/23 20:39 Senna/Docusate Sodium 1 Tablet PO BID PRN PRN Constipation Sodium Chloride 10 - 40 ml 11/13/23 21:15 0.9% Saline Lock 10 Ml Syringe IV UD PRN SALINE FLUSH Tamsulosin HCl 0.4 mg 11/14/23 10:00 11/14/23 08:19 Tamsulosin Hcl 0.4 Mg Capsule PO 0.4 mg DAILY TRINITY Administration Trazodone HCl 100 mg 11/13/23 22:00 11/13/23 21:33 Trazodone 100 Mg Tablet PO 100 mg QHS TRINITY Administration
--- NOTE | 2023-11-14 13:31 | MRI_ITS ---
STUDY: MRI THORACIC SPINE WITH AND WITHOUT CONTRAST REASON FOR EXAM: Female, 78 years old. truncal ataxia. -- MRI Brain and C spine are priority. TECHNIQUE: IV 10cc clariscan was administered for the contrast portion of the examination. COMPARISON: None. FINDINGS: There is an increased kyphosis of the thoracic spine. There is no substantial scoliosis. T1-2, T2-3, T3-4, T4-5, T5-6, T6-7, T7-8, T8-9, T9-10, T10-11, T11-12: Normal endplates. Normal disc hydration, heights and morphology of the corresponding intervertebral discs. Normal central canal and intervertebral neural foramina at the corresponding levels. Normal visualized thoracic cord. Normal conus medullaris that terminates at the . The soft tissue structures are unremarkable. There is no enhancing abnormality. MRI/Spine Thoracic W/WO Contrast IMPRESSION: Moderate kyphosis. No acute disease. Electronically Signed: Brian Ng MD at 21:36 EST ,
[2023-11-14 14:44] LABS: Erythrocyte Sedimentation Rate 5 mm/hr (0-30)
[2023-11-14 15:23] LABS: Vitamin B12 356 pg/mL (211-911)
[2023-11-14 16:20] LABS: CRP < 2.90 mg/L (0.0-3.0)
[2023-11-14] MEDS: Ondansetron 4 MG/2 ML Vial IV (16:29)
[2023-11-14] MEDS: Thiamine Hydrochloride 500 MG in 0.9% Normal Saline (50mL Bag) 50 ML 200 MG IV ×2 (16:31→21:04)
[2023-11-14 16:49] LABS: HIV - WCH Non-Reactive (Nonreactive); Syphilis Antibodies Non-reactive
[2023-11-14] MEDS: Potassium Chloride Oral Tablet 20 MEQ 40 MEQ PO (17:02)
--- NOTE | 2023-11-14 17:30 | MRI_ITS ---
STUDY: MRI BRAIN WITH AND WITHOUT CONTRAST REASON FOR EXAM: Female, 78 years old. ataxia TECHNIQUE: Standardized multiplanar fat and water weighted pulse sequences were obtained. IV 10cc clariscan was administered for the contrast portion of the examination. COMPARISON: CTA brain November 13, 2023. CT brain same day. FINDINGS: Normal size of the ventricles and extra-axial spaces for the patient''s age. There are a limited number of small white matter hyperintensities, distributed throughout the deep white matter tracts of the cerebral hemispheres, consistent with mild chronic white matter ischemic changes. There is no evidence for recent intracranial ischemia or other cause of cytotoxic edema on diffusion weighted imaging (DWI). Normal bilateral basal ganglia. Normal thalami. There is no extra-axial fluid accumulation. Normal flow voids within the major intracranial circulation suggesting patency by spin echo criteria. Normal venous enhancement. There is no enhancing intra-axial or extra-axial abnormality. Normal sella turcica, pituitary gland, infundibular stalk, optic chiasm and hypothalamus. Normal tectal plate and pineal gland. Normal midbrain, shelly and medulla. Normal cerebellum. Normal basal cisterns. Normal bilateral temporal bones. Normal bilateral internal auditory canals. No demonstrated orbital abnormality, within the constraints of a routine brain study. Normal visualized paranasal sinuses. Normal calvarium and skull base. Normal visualized soft tissue structures. Normal visualized upper cervical spine. MRI/Brain W/WO Contrast IMPRESSION: No acute disease Electronically Signed: Brian Ng MD at 21:52 EST ,
--- NOTE | 2023-11-14 17:30 | MRI_ITS ---
STUDY: MRI CERVICAL SPINE WITH AND WITHOUT CONTRAST REASON FOR EXAM: Female, 78 years old. hyperreflexia TECHNIQUE: Standardized fat and water weighted pulse sequences were obtained in the sagittal and axial following administration of IV 10 clariscan. COMPARISON: Cervical spine radiograph December 30, 2020 report only without images FINDINGS: Normal foramen magnum and brainstem-cervical cord junction. Normal craniovertebral junction. Normal anterior atlantoaxial articulation. Normal odontoid process. Normal cervical lordosis. Normal vertebral bodies and posterior osseous elements. C2-3: Normal endplates. Normal disc height, signal and morphology. Normal central canal and intervertebral neural foramina. C3-4: Normal endplates. Normal disc height, signal and morphology. Normal central canal and intervertebral neural foramina. C4-5: Normal endplates. Normal disc height, signal and morphology. Normal central canal and narrowed right intervertebral neural foramina. C5-6: Normal endplates. Normal disc height, signal and morphology. Normal central canal and narrowed right intervertebral neural foramina. C6-7: Normal endplates. Normal disc height, signal and morphology. Normal central canal and intervertebral neural foramina. C7-T1: Normal endplates. Normal disc height, signal and morphology. Normal central canal and intervertebral neural foramina. Normal cervical cord. Normal visualized soft tissue structures. MRI/Spine Cervical W/WO Contrast IMPRESSION: Neural foraminal narrowing on the right at C4-5 and C5-6 due to uncinate spondylosis Electronically Signed: Brian Ng MD at 21:41 EST ,
[2023-11-14] MEDS: traZODone 100 MG Tablet PO (21:00)
[2023-11-14] MEDS: Atorvastatin Calcium 40 MG Tablet PO (21:00)
[2023-11-14] MEDS: 0.9% Saline Lock 10 ML Syringe IV (21:04)
[2023-11-15 00:31] VITALS: BP 135/57; PULSE 72; RESP 18; TEMP 36.6; O2SAT 94
[2023-11-15 04:35] VITALS: BMI 20.5
[2023-11-15 06:02] VITALS: BP 119/46; PULSE 65; RESP 18; TEMP 36.9; O2SAT 97
[2023-11-15] MEDS: Thiamine Hydrochloride 500 MG in 0.9% Normal Saline (50mL Bag) 50 ML 200 MG IV (06:04)
[2023-11-15] MEDS: Levothyroxine 100 MCG Tablet PO (06:04)
[2023-11-15 06:58] VITALS: O2SAT 93
[2023-11-15 07:54] LABS: Anion Gap 4 (5-15); BUN 15 mg/dL (7-18); BUN/Creat Ratio 17.2 RATIO (10-20); Calcium,Total 8.5 mg/dL (8.5-10.1); Chloride 110 mmol/L (98-107); Creatinine, Serum 0.87 mg/dL (0.55-1.02); EST Glomerular Filtration Rate 67 mL/min (>60); Est Glom Filt Rate - Afr Amer 81 mL/min (>60); Estimated Creatinine Clearance 43.37 ml/min; Glucose 103 mg/dL (74-106); Potassium 4.2 mmol/L (3.5-5.1); Sodium Level 142 mmol/L (136-145); T4 Free Direct 1.27 ng/dL (0.76-1.46); Thyroid Stim Hormone (TSH) 2.72 uIU/mL (0.358-3.74)
--- NOTE | 2023-11-15 08:25 | PN.HOSP_ITS ---
Reason for Visit Reason for Visit: Diagnoses Dorsalgia, unspecified (11/13/23) Cardiac murmur, unspecified (11/13/23) Other abnormalities of gait and mobility (11/13/23) Unspecified abnormalities of gait and mobility (11/13/23) Ataxia, unspecified (11/13/23) Other lack of coordination (11/13/23) Other amnesia (11/13/23) Unspecified fall, initial encounter (11/13/23) Objective Data Objective Data Vital Signs: Vital Signs Temp Pulse Resp BP Pulse Ox O2 Del Method 98.5 F 65 18 119/46 L 97 Room Air 11/15/23 06:02 11/15/23 06:02 11/15/23 06:02 11/15/23 06:02 11/15/23 06:02 11/15/23 06:02 Oxygen Delivery Method Room Air Weight: 116 lb 1.597 oz Body Mass Index (BMI) 20.5 Intake & Output: Intake and Output for Last 24 Hours 11/13/23 11/14/23 11/15/23 23:59 23:59 23:59 Intake Total 1130 / 1130 55 / 55 Balance 1130 / 1130 55 / 55 Lab / Micro Data 11/14/23 06:45 11/15/23 06:50 Labs: Laboratory Results - last 24 hr 11/14/23 14:20: ESR 5, C-React Prot Ext Range < 2.90, Vitamin B12 356, Folate 36.10, Syphilis Total Ab Non-reactive, HIV 1&2 Antibody Non-Reactive 11/15/23 06:50: Sodium 142, Potassium 4.2, Chloride 110 H, Carbon Dioxide 28.0, Anion Gap 4 L, BUN 15, Creatinine 0.87, Estim Creat Clear Calc 43.37, Est GFR (MDRD) Af Amer 81, Est GFR (MDRD) Non-Af 67, BUN/Creatinine Ratio 17.2, Glucose 103, Calcium 8.5, TSH 2.72, Free T4 1.27 Radiography Diagnostic Testing: Radiology Impression Echocardiogram 11/13/23 18:12 Interpretation Summary The left ventricular ejection fraction is 65 %. Stage 1 diastolic dysfunction. Mild aortic stenosis. Mild (1+) aortic valve insufficiency. Bubble contrast study is negative for PFO/ASD. The study was technically difficult. Ordering Physician: Tahira Meadows Referring Physician: Smith Orozco Performed By: Evelia Patton, ZAIN, RVT Thoracic Spine MRI 11/14/23 13:31 IMPRESSION: Moderate kyphosis. No acute disease. Electronically Signed: Brian Ng MD at 21:36 EST , Brain MRI 11/14/23 17:30 IMPRESSION: No acute disease Electronically Signed: Brian Ng MD at 21:52 EST , Cervical Spine MRI 11/14/23 17:30 IMPRESSION: Neural foraminal narrowing on the right at C4-5 and C5-6 due to uncinate spondylosis Electronically Signed: Brian Ng MD at 21:41 EST Reading Location ID and State: [facility] / [place] Tel , Service support , Physical Exam Narrative Back pain is much better. Patient she states at the end of her shift she feels more fatigued and her speech becomes more slow, tongue dry and problem with articulation. Physical exam General: Alert, Oriented x3, Cooperative HEENT: Atraumatic, PERRLA, EOMI, Normocephalic Oral: No Gingival or Mucosal Lesions/ Ulcerations Neck: Supple, No JVD, Negative Carotid Bruits Chest wall/Lungs: Air entry diminished in bilateral lung bases. No crepitation/rhonchi Cardiovascular: Regular rate, Regular Rhythm, Normal S1, Normal S2, systolic murmur over right second ICS in the Spe[place] Abdomen: Bowel Sounds Present, Soft, Non Tender, Non-Distended : No dysuria. No renal angle tenderness. No suprapubic tenderness. Extremities: No edema, Capillary Refill Less than 3 Seconds Skin: No rashes, No breakdown Musculoskeletal: Increased muscle stiffness, hypertonia at knee and hip joints. No tenderness over lumbar thoracic spine or paraspinal muscles. Neurological: Cranial nerves II-XII grossly intact, Knee jerk 3+. Muscle st rength decreased 4/5 at knees and hip joints. No lurching gait or truncal ataxia observed during walking. Psych/Mental Status: Normal Affect, Appropriate. Assessment & Plan Assessment/Plan (1) Ataxia: (2) Falls: (3) Balance disorder: PLAN: Plan This 78-year-old female came to ED with low back pain and headache and recurrent falls. Patient also has gait incoordination/ataxia, falling on the left side, sleep within the last 1 to 2 months, memory loss and dysmetria. LK W 20 weeks ago 1. Gait instability/truncal ataxia, dysmetria with features concerning for subacute cerebellar ataxia: Patient is admitted in PCU. Seen by neurologist. Continue aspirin 81 mg daily. MRI brain with and without contrast along with cervical and thoracic spine. High-dose thiamine for possible W[place], 500 mg IV every 8 hourly for 1 day, to 250 mg IV 8 hourly for 3 days and then 100 mg daily afterwards. Ordered, labwork to send from serum: thiamine, b12, celiac disease testing, ELENI with reflex, ssa/ssb, sypillis, HIV, copper, Hba1c, TSH, TPO, anti-TF -may need LP/ further testing based upon results of MR 3/: Patient had brain, C-spine and thoracic spine MRI reported no acute finding but chronic finding of mild foraminal narrowing and cervical spine and thoracic kyphosis due to chronic degenerative arthritis changes. MRI brain reported normal. Lab tests are ordered. Patient was walked she walks slow but not much swaying to one side or ataxia Systolic murmur 2D echo: The left ventricular ejection fraction is 65 %. Mild aortic stenosis, AR. Bubble contrast study negative for PFO/ASD. Stage I diastolic dysfunction suggestive of mild HFpEF. Chronic low back pain with radicular symptoms: She states that her pain is mainly restricted to lower back does not radiate to lower thigh or knee but feels more like a spasm. No acute change. Does not seem sciatica type pain. No change in bowel bladder function. -Recommend proceeding with outpatient lumbar spine MRI as previously ordered CAD/HPL/HTN/carotid artery disease -Previous PCI in 2015 -Patient currently not on any antiplatelet therapy but will start aspirin for the above -Continue home atorvastatin and check lipids -Continue home colestipol -Hold home antihypertensives until stroke can be ruled out then reinitiate if negative -PRNs per stroke protocol are available GERD/history of peptic ulcer disease -Continue home famotidine Hypothyroidism -Continue home levothyroxine TSH free T4 and anti-TPO antibodies ordered Memory impairment -Continue home donepezil DVT prophylaxis -Lovenox daily CODE STATUS -Full code is verified on admission Total time of the visit including total time spent in counseling or coordination of care, (more than 50% of the total time, spent in obtaining medical information from nurses and other ancillary care providers,explaining to the patient about labs, imaging, diagnosis and management of active complex medical conditions), complete neuroexam, discussion with neurologist, review of labs and imaging is 40 minutes. Clinical Impression(s) from Imaging Studies Head/Neck CTA 11/13/23 14:48 IMPRESSION: No acute intracranial findings. No significant major vessel vaso-occlusive disease in the head or neck. No significant interval change from the prior study. Electronically Signed: Aris Soares MD at 16:44 EST , Chest X-Ray 11/13/23 16:05 IMPRESSION: No radiographic evidence of acute cardiopulmonary disease. Electronically Signed: Aris Soares MD at 17:13 EST , Echocardiogram 11/13/23 18:12 Interpretation Summary The left ventricular ejection fraction is 65 %. Stage 1 diastolic dysfunction. Mild aortic stenosis. Mild (1+) aortic valve insufficiency. Bubble contrast study is negative for PFO/ASD. The study was technically difficult. Thoracic Spine MRI 11/14/23 13:31 IMPRESSION: Moderate kyphosis. No acute disease. Brain MRI 11/14/23 17:30 IMPRESSION: No acute disease Cervical Spine MRI 11/14/23 17:30 IMPRESSION: Neural foraminal narrowing on the right at C4-5 and C5-6 due to uncinate spondylosis Electronically Signed: Brian Ng MD at 21:41 EST , Charges/Coding Visit Charges Inpatient E&M: 35426 Subs Hosp L2
[2023-11-15] MEDS: Famotidine 20 MG Tablet PO (09:17)
[2023-11-15] MEDS: Tamsulosin HCl 0.4 MG Capsule 0.400000000000000022 MG PO (09:17)
[2023-11-15] MEDS: Enoxaparin 40 MG/0.4 ML Syringe SC (09:17)
[2023-11-15] MEDS: Colestipol 1 GM TABLET PO (09:17)
[2023-11-15] MEDS: Aspirin 81 MG TAB.CHEW PO (09:17)
[2023-11-15] MEDS: Donepezil HCl 5 MG Tablet PO (09:17)
[2023-11-15] MEDS: 0.9% Saline Lock 10 ML Syringe IV ×2 (10:35→12:46)
[2023-11-15] MEDS: Ondansetron 4 MG/2 ML Vial IV (10:35)
[2023-11-15] MEDS: Metoclopramide 10 MG/2 ML Vial 5 MG IV (12:45)
[2023-11-15 13:00] VITALS: BP 154/62; PULSE 88; RESP 16; TEMP 37.1; O2SAT 97
--- NOTE | 2023-11-15 14:01 | PCM.PN.HOSP ---
Reason for Visit Reason for Visit: Diagnoses Dorsalgia, unspecified (11/13/23) Cardiac murmur, unspecified (11/13/23) Other abnormalities of gait and mobility (11/13/23) Unspecified abnormalities of gait and mobility (11/13/23) Ataxia, unspecified (11/13/23) Other lack of coordination (11/13/23) Other amnesia (11/13/23) Unspecified fall, initial encounter (11/13/23) Objective Data Objective Data Vital Signs: Vital Signs Temp Pulse Resp BP Pulse Ox O2 Del Method 98.5 F 65 18 119/46 L 93 Room Air 11/15/23 06:02 11/15/23 06:02 11/15/23 06:02 11/15/23 06:02 11/15/23 06:58 11/15/23 06:58 Oxygen Delivery Method Room Air Weight: 116 lb 1.597 oz Body Mass Index (BMI) 20.5 Intake & Output: Intake and Output for Last 24 Hours 11/13/23 11/14/23 11/15/23 23:59 23:59 23:59 Intake Total 1130 / 1130 55 / 55 Balance 1130 / 1130 55 / 55 Lab / Micro Data 11/14/23 06:45 11/15/23 06:50 Labs: Laboratory Results - last 24 hr 11/14/23 14:20: ESR 5, C-React Prot Ext Range < 2.90, Vitamin B12 356, Folate 36.10, Syphilis Total Ab Non-reactive, HIV 1&2 Antibody Non-Reactive 11/15/23 06:50: Sodium 142, Potassium 4.2, Chloride 110 H, Carbon Dioxide 28.0, Anion Gap 4 L, BUN 15, Creatinine 0.87, Estim Creat Clear Calc 43.37, Est GFR (MDRD) Af Amer 81, Est GFR (MDRD) Non-Af 67, BUN/Creatinine Ratio 17.2, Glucose 103, Hemoglobin A1c 5.0, Calcium 8.5, TSH 2.72, Free T4 1.27 Radiography Diagnostic Testing: Radiology Impression Thoracic Spine MRI 11/14/23 13:31 IMPRESSION: Moderate kyphosis. No acute disease. Electronically Signed: Brian Ng MD at 21:36 EST , Brain MRI 11/14/23 17:30 IMPRESSION: No acute disease Electronically Signed: Brian Ng MD at 21:52 EST Reading Location ID and State: [address] [place] [address] Tel , Service support , Cervical Spine MRI 11/14/23 17:30 IMPRESSION: Neural foraminal narrowing on the right at C4-5 and C5-6 due to uncinate spondylosis Electronically Signed: Brian Ng MD at 21:41 EST Reading Location ID and State: [facility] / [place] Tel , Service support , Physical Exam Narrative Back pain is much better. She can walk without much ataxic gait. Patient she states at the end of her shift she feels more fatigued and her speech becomes more slow, tongue dry and problem with articulation. Physical exam General: Alert, Oriented x3, Cooperative HEENT: Atraumatic, PERRLA, EOMI, Normocephalic Oral: No Gingival or Mucosal Lesions/ Ulcerations Neck: Supple, No JVD, Negative Carotid Bruits Chest wall/Lungs: Air entry diminished in bilateral lung bases. No crepitation/rhonchi Cardiovascular: Regular rate, Regular Rhythm, Normal S1, Normal S2, systolic murmur over right second ICS in the Spee Abdomen: Bowel Sounds Present, Soft, Non Tender, Non-Distended : No dysuria. No renal angle tenderness. No suprapubic tenderness. Extremities: No edema, Capillary Refill Less than 3 Seconds Skin: No rashes, No breakdown Musculoskeletal: Increased muscle stiffness, hypertonia at knee and hip joints. No tenderness over lumbar thoracic spine or paraspinal muscles. Neurological: Cranial nerves II-XII grossly intact, Knee jerk 3+. Muscle strength decreased 4/5 at knees and hip joints. No lurching gait or truncal ataxia observed during walking. Psych/Mental Status: Normal Affect, Appropriate. Assessment & Plan Assessment/Plan (1) Ataxia: (2) Falls: (3) Balance disorder: PLAN: Plan This 78-year-old female came to ED with low back pain and headache and recurrent falls. Patient also has gait incoordination/ataxia, falling on the left side, sleep within the last 1 to 2 months, memory loss and dysmetria. LK W 20 weeks ago 1. Gait instability/truncal ataxia, dysmetria with features concerning for subacute cerebellar ataxia: Patient is admitted in PCU. Seen by neurologist. Continue aspirin 81 mg daily. MRI brain with and without contrast along with cervical and thoracic spine. High-dose thiamine for possible Warnicke, 500 mg IV every 8 hourly for 1 day, to 250 mg IV 8 hourly for 3 days and then 100 mg daily afterwards. Ordered, labwork to send from serum: thiamine, b12, celiac disease testing, ELENI with reflex, ssa/ssb, sypillis, HIV, copper, Hba1c, TSH, antithyroglobulin and antithyroid peroxidase antibody. -may need LP/ further testing based upon results of MR 11/14: Patient had brain, C-spine and thoracic spine MRI reported no acute finding but chronic finding of mild foraminal narrowing and cervical spine and thoracic kyphosis due to chronic degenerative arthritis changes. MRI brain reported normal. Lab tests are ordered. Patient was walked she walks slow but not much swaying to one side or ataxia. Yesterday also patient was evaluated by PT with only contact-guard and felt like satisfactory. Neurologist follow-up was done and requested MRI lumbar spine with and without contrast which is ordered. 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 Vitamin B12 low normal 356, folate, TSH, free T4 normal limit. Fasting profile LDL 54 HDL 68. CRP normal. A1c 5.0. Might go home today later onOther tests are pending. Systolic murmur 2D echo: The left ventricular ejection fraction is 65 %. Mild aortic stenosis, AR. Bubble contrast study negative for PFO/ASD. Stage I diastolic dysfunction suggestive of mild HFpEF. Chronic low back pain with radicular symptoms: She states that her pain is mainly restricted to lower back does not radiate to lower thigh or knee but feels more like a spasm. No acute change. Does not seem sciatica type pain. No change in bowel bladder function. -Recommend proceeding with outpatient lumbar spine MRI as previously ordered CAD/HPL/HTN/carotid artery disease -Previous PCI in 2015 -Patient currently not on any antiplatelet therapy but will start aspirin for the above -Continue home atorvastatin and check lipids -Continue home colestipol -Hold home antihypertensives until stroke can be ruled out then reinitiate if negative -PRNs per stroke protocol are available GERD/history of peptic ulcer disease -Continue home famotidine Hypothyroidism -Continue home levothyroxine TSH free T4 and anti-TPO antibodies ordered Memory impairment -Continue home donepezil DVT prophylaxis -Lovenox daily CODE STATUS -Full code is verified on admission Total time of the visit including total time spent in counseling or coordination of care, (more than 50% of the total time, spent in obtaining medical information from nurses and other ancillary care providers,explaining to the patient about labs, imaging, diagnosis and management of active complex medical conditions), complete neuroexam, discussion with neurologist, review of labs and imaging is 40 minutes. Clinical Impression(s) from Imaging Studies Head/Neck CTA 11/13/23 14:48 IMPRESSION: No acute intracranial findings. No significant major vessel vaso-occlusive disease in the head or neck. No significant interval change from the prior study. Electronically Signed: Aris Soares MD at 16:44 EST , Chest X-Ray 11/13/23 16:05 IMPRESSION: No radiographic evidence of acute cardiopulmonary disease. Electronically Signed: Aris Soares MD at 17:13 EST , Echocardiogram 11/13/23 18:12 Interpretation Summary The left ventricular ejection fraction is 65 %. Stage 1 diastolic dysfunction. Mild aortic stenosis. Mild (1+) aortic valve insufficiency. Bubble contrast study is negative for PFO/ASD. The study was technically difficult. Thoracic Spine MRI 11/14/23 13:31 IMPRESSION: Moderate kyphosis. No acute disease. Brain MRI 11/14/23 17:30 IMPRESSION: No acute disease Cervical Spine MRI 11/14/23 17:30 IMPRESSION: Neural foraminal narrowing on the right at C4-5 and C5-6 due to uncinate spondylosis Electronically Signed: Brian Ng MD at 21:41 EST , Charges/Coding Visit Charges Inpatient E&M: 39967 Subs Hosp L2
[2023-11-15 14:14] VITALS: BMI 20.5
[2023-11-15] MEDS: [UNRECOGNIZED DRUG - OTHER] IV (14:43)
[2023-11-15] MEDS: NORMAL SALINE 0.9% IV (14:43)
[2023-11-15] MEDS: Ondansetron 4 MG/2 ML Vial 8 MG IV (14:47)
--- NOTE | 2023-11-15 14:47 | MRI_ITS ---
STUDY: MRI LUMBAR SPINE WITHOUT CONTRAST REASON FOR EXAM: Female, 78 years old. Lumbar/lower back pain/gait ataxia TECHNIQUE: Standardized fat and water weighted pulse sequences were obtained in the sagittal and axial planes. COMPARISON: None FINDINGS: T12-L1: Normal endplates. Normal disc height, hydration and morphology. Normal bilateral facet joints. Normal central canal and bilateral lateral recesses. Normal bilateral intervertebral neural foramina. Normal lumbar lordosis. There is no substantial scoliosis. Normal conus medullaris that terminates at T12-L1 L1-2: Normal endplates. Normal disc height hydration and morphology. Normal bilateral facet joints. Normal central canal and bilateral lateral recesses. Normal bilateral intervertebral neural foramina L2-3:: Normal endplates. Mildly narrowed disc space with desiccation of the disc and left posterolateral/foraminal disc protrusion.. Mild facet arthropathy and thickening of ligamenta flava.. Normal central canal. Mild left lateral recess and moderate left neural foraminal stenosis. L3-4: Normal endplates. Normal disc height, desiccation and minor annular bulge.. Facet arthropathy and mild thickening of ligamenta flava. Normal central canal and bilateral lateral recesses. Moderate bilateral neural foraminal encroachment.. L4-5: Normal endplates. Normal disc height, desiccation mild annular bulge with right foraminal disc protrusion. Facet arthropathy.. Normal central canal and bilateral lateral recesses. Mild to moderate left neural foraminal stenosis and severe narrowing of the right L5-S1: Normal endplates. Normal disc height, desiccation and minimal annular bulge.. Mild facet arthropathy.. Normal central canal and bilateral lateral recesses. Normal bilateral intervertebral neural foramina. Normal visualized sacral ala. Normal visualized paraspinous soft tissue structures. MRI/Spine Lumbar (Routine) IMPRESSION: No evidence for acute fracture or other significant bony pathology.. Multilevel spinal stenosis secondary to disc disease and bony hypertrophy most severe at L4-5 worse on the right. Other findings as above Electronically Signed: Jose Ambrose MD at 16:55 EST Reading Location ID and State: [facility] / [place] Tel , Service support ,
--- NOTE | 2023-11-15 15:20 | DCINST_ITS ---
Discharge Instructions Diet Discharge Diet: No restrictions Activity Discharge Activity: Return to Normal Activity Weight Bearing Status: Weight bearing as tolerated Dressing / Incision Call your doctor if you observe: Fever of 101 or Higher, Coldness, Increased Pain, Numbness or Tingling, Change in Color, Inability to urinate, Inability to have a bowel movement, Using more than 1 pad per hour, Shortness of breath, Dizziness, Fainting spells, Swelling in the ankles, Chest pain, Prolonged hiccupping, Increased palpitations (irregular heartbeat) and Calf discomfort Follow Up Care When: IN 2 WEEKS Test Results: Test results from this visit will be discussed in further detail at your follow- up appointment, if applicable. Discharge Plan Admission Admit Date/Time: 11/13/23 18:04 Primary Reason for Your Visit: Ataxic gait. Attending Provider: Jose Ortega Primary Care Provider: Smith Orozco Consulting Providers: Jonny Young; Vanessa Waldron; Jennifer Gonzalez; Minoo Silver; Anabell Bang; Freddy Buchanan; Hannah Cobos; Donald Ward; David Meadows; Angie Cook; Federico Jones; Katarzyna Brock; Raysa Hutton; [place]; [place]; Sabi Stout; Fareed Wagoner; Letha Meadows; Kelby Cordoba; Tahira Meadows Discharge Orders/Prescriptions Prescriptions: Continued colestipol [Colestid] 1 gram tablet 1 g PO BID lisinopril 10 mg tablet 20 mg PO DAILY donepezil 5 mg tablet 5 mg PO DAILY carvedilol [Coreg] 6.25 mg tablet 6.25 mg PO BID Qty: 60 11RF Rx Instructions: must administer with a meal/food trazodone 50 mg tablet 100 mg PO QHS Patient Comments: SLEEP atorvastatin 40 mg tablet 40 mg PO QHS metoprolol tartrate 25 mg tablet 25 mg PO Q12H tamsulosin 0.4 mg capsule 0.4 mg PO DAILY famotidine 20 mg tablet 20 mg PO DAILY levothyroxine 100 mcg tablet 100 mcg PO DAILY potassium chloride 20 mEq tablet extended release 20 meq PO DAILY Qty: 90 3RF Hold Instructions: PCP stopped, will see how BMP is in 2 weeks Rx Instructions: Take 1 tablet by mouth once daily Referrals / Follow Up: Smith Orozco MD [Primary Care Provider] - Disposition Disposition (needs filled in before D/C Order can be placed): Home, Self Care
--- NOTE | 2023-11-15 15:23 | DS.PCM_ITS ---
Providers Date of Admission: 11/13/23 Date of Discharge: 11/15/23 Primary Care Physician: Dr. Smith Orozco MD Consultations 11/13/23 20:39 Consult: Tele-Neurology Routine Consulting Provider: [facility] Reason for Consult: Acute Ischemic Stroke/TIA EMERGENT Consult: No MD Notified: Yes Date Notified: 11/14/23 Time Notified: 06:37 Method of Notification: Answering Service Comments:: will be seen by Dr Hutton on 11/13 Nursing Unit Staff Notify [facility] of Tele-Neurology Consult: Yes Reason For Visit: ATAXIA Diagnosis Discharge Diagnosis (1) Ataxia: Status: Acute Code(s): R27.0 - Ataxia, unspecified (2) Falls: Status: Acute Code(s): W19.XXXA - Unspecified fall, initial encounter (3) Balance disorder: Status: Acute Code(s): R26.89 - Other abnormalities of gait and mobility Plan This 78-year-old female came to ED with low back pain and headache and recurrent falls. Patient also has gait incoordination/ataxia, falling on the left side, sleep within the last 1 to 2 months, memory loss and dysmetria. LK W 20 weeks ago 1. Gait instability/truncal ataxia, dysmetria with features concerning for subacute cerebellar ataxia: Patient is admitted in PCU. Seen by neurologist. Continue aspirin 81 mg daily. MRI brain with and without contrast along with cervical and thoracic spine. High-dose thiamine for possible Warnicke, 500 mg IV every 8 hourly for 1 day, to 250 mg IV 8 hourly for 3 days and then 100 mg daily afterwards. Ordered, labwork to send from serum: thiamine, b12, celiac disease testing, ELENI with reflex, ssa/ssb, sypillis, HIV, copper, Hba1c, TSH, antithyroglobulin and antithyroid peroxidase antibody. -may need LP/ further testing based upon results of MR 3/: Patient had brain, C-spine and thoracic spine MRI reported no acute finding but chronic finding of mild foraminal narrowing and cervical spine and thoracic kyphosis due to chronic degenerative arthritis changes. MRI brain reported normal. Lab tests are ordered. Patient was walked she walks slow but not much swaying to one side or ataxia. Yesterday also patient was evaluated by PT with only contact-guard and felt like satisfactory. Neurologist follow-up was done and requested MRI lumbar spine without contrast is ordered. 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 service department manager to further evaluate for discharge planning. Vitamin B12 low normal 356, folate, TSH, free T4 normal limit. Fasting profile LDL 54 HDL 68. CRP normal. A1c 5.0. Lumbar spine MRI shows no evidence of acute fracture or other significant bony pathology. Multilevel spinal stenosis secondary to disc disease and bony hypertrophy most severe at L4-5 worse on the right side. Patient is discharged home and advised to follow-up with Dr. Abigail Wang. Follow-up PCP with other test findings including autoimmune tests. Systolic murmur 2D echo: The left ventricular ejection fraction is 65 %. Mild aortic stenosis, AR. Bubble contrast study negative for PFO/ASD. Stage I diastolic dysfunction suggestive of mild HFpEF. Chronic low back pain with radicular symptoms: She states that her pain is mainly restricted to lower back does not radiate to lower thigh or knee but feels more like a spasm. No acute change. Does not seem sciatica type pain. No change in bowel bladder function. -Recommend proceeding with outpatient lumbar spine MRI as previously ordered CAD/HPL/HTN/carotid artery disease -Previous PCI in 2015 -Patient currently not on any antiplatelet therapy but will start aspirin for the above -Continue home atorvastatin and check lipids -Continue home colestipol -Hold home antihypertensives until stroke can be ruled out then reinitiate if negative -PRNs per stroke protocol are available GERD/history of peptic ulcer disease -Continue home famotidine Hypothyroidism -Continue home levothyroxine TSH free T4 and anti-TPO antibodies ordered Memory impairment -Continue home donepezil DVT prophylaxis -Lovenox daily CODE STATUS -Full code is verified on admission Total time of the visit including total time spent in counseling or coordination of care, (more than 50% of the total time, spent in obtaining medical information from nurses and other ancillary care providers,explaining to the patient about labs, imaging, diagnosis and management of active complex medical conditions), complete neuroexam, discussion with neurologist, review of labs and imaging is 40 minutes. Clinical Impression(s) from Imaging Studies Head/Neck CTA 11/13/23 14:48 IMPRESSION: No acute intracranial findings. No significant major vessel vaso-occlusive disease in the head or neck. No significant interval change from the prior study. Electronically Signed: Aris Soares MD at 16:44 EST , Chest X-Ray 11/13/23 16:05 IMPRESSION: No radiographic evidence of acute cardiopulmonary disease. Electronically Signed: Aris Soares MD at 17:13 EST , Echocardiogram 11/13/23 18:12 Interpretation Summary The left ventricular ejection fraction is 65 %. Stage 1 diastolic dysfunction. Mild aortic stenosis. Mild (1+) aortic valve insufficiency. Bubble contrast study is negative for PFO/ASD. The study was technically difficult. Thoracic Spine MRI 11/14/23 13:31 IMPRESSION: Moderate kyphosis. No acute disease. Brain MRI 11/14/23 17:30 IMPRESSION: No acute disease Cervical Spine MRI 11/14/23 17:30 IMPRESSION: Neural foraminal narrowing on the right at C4-5 and C5-6 due to uncinate spondylosis Electronically Signed: Brian Ng MD at 21:41 EST , Medications at Discharge Home Medications levothyroxine 100 mcg tablet 100 mcg PO DAILY thyroid 04/28/21 trazodone 50 mg tablet 100 mg PO QHS sleep 05/04/22 potassium chloride 20 mEq tablet,extended release 20 meq PO DAILY supplement #90 tabs 05/26/22 carvedilol 6.25 mg tablet (Coreg) 6.25 mg PO BID blood pressure #60 tabs 10/16/23 colestipol 1 gram tablet (Colestid) 1 g PO BID cholesterol 10/16/23 donepezil 5 mg tablet 5 mg PO DAILY memory 10/16/23 lisinopril 10 mg tablet 20 mg PO DAILY blood pressure 10/16/23 atorvastatin 40 mg tablet 40 mg PO QHS cholesterol 11/13/23 famotidine 20 mg tablet 20 mg PO DAILY reflux 11/13/23 metoprolol tartrate 25 mg tablet 25 mg PO Q12H blood pressure 11/13/23 tamsulosin 0.4 mg capsule 0.4 mg PO DAILY prostate 11/13/23 Physical Exam Narrative Please see exam findings on the progress note. Neurologist called me that he wanted MRI of lumbar spine that is ordered. Patient follows Dr. Abigail olivia he can follow the MRI results with Dr. Abigail Wang she wants to go home. PT cleared for discharged. Weight / BMI Weight Weight: 116 lb 1.597 oz Body Mass Index (BMI) 20.5 ABG / Lab / Microbiology Data 11/14/23 06:45 11/15/23 06:50 Laboratory: Laboratory Results - last 24 hr 11/14/23 14:20: C-React Prot Ext Range < 2.90, Vitamin B12 356, Folate 36.10, Syphilis Total Ab Non-reactive, HIV 1&2 Antibody Non-Reactive 11/15/23 06:50: Sodium 142, Potassium 4.2, Chloride 110 H, Carbon Dioxide 28.0, Anion Gap 4 L, BUN 15, Creatinine 0.87, Estim Creat Clear Calc 43.37, Est GFR (MDRD) Af Amer 81, Est GFR (MDRD) Non-Af 67, BUN/Creatinine Ratio 17.2, Glucose 103, Hemoglobin A1c 5.0, Calcium 8.5, TSH 2.72, Free T4 1.27 Radiography Diagnostic Testing: Radiology Impression Thoracic Spine MRI 11/14/23 13:31 IMPRESSION: Moderate kyphosis. No acute disease. Electronically Signed: Brian Ng MD at 21:36 EST Reading Location ID and State: [address] [place] [address] Tel , Service support , Brain MRI 11/14/23 17:30 IMPRESSION: No acute disease Electronically Signed: Brian Ng MD at 21:52 EST Reading Location ID and State: [facility] / [place] Tel , Service support , Cervical Spine MRI 11/14/23 17:30 IMPRESSION: Neural foraminal narrowing on the right at C4-5 and C5-6 due to uncinate spondylosis Electronically Signed: Brian Ng MD at 21:41 EST , D/C Instructions Discharge Diet: No restrictions Weight Bearing Status: Weight bearing as tolerated Call your doctor if you observe: Fever of 101 or Higher, Coldness, Increased Pain, Numbness or Tingling, Change in Color, Inability to urinate, Inability to have a bowel movement, Using more than 1 pad per hour, Shortness of breath, Dizziness, Fainting spells, Swelling in the ankles, Chest pain, Prolonged hiccupping, Increased palpitations (irregular heartbeat) and Calf discomfort When: IN 2 WEEKS Meaningful Use Info Meaningful Use Diagnoses (Choose all that apply): None applicable Discharge Plan Admission Admit Date/Time: 11/13/23 18:04 Primary Reason for Your Visit: Ataxic gait. Attending Provider: Jose Ortega Primary Care Provider: Smith Orozco Consulting Providers: Jonny Young; Vanessa Waldron; Jennifer Gonzalez; Minoo Silver; Anabell Bang; Ferddy Buchanan; Hannah Cobos; Donald Ward; David Meadows; Angie Cook; Federico Jones; Katarzyna Brock; Raysa Hutton; [place]; [place]; Sabi Stout; Fareed Wagoner; Letha Meadows; Kelby Cordoba; Tahira Meadows Discharge Orders/Prescriptions Prescriptions: Continued colestipol [Colestid] 1 gram tablet 1 g PO BID lisinopril 10 mg tablet 20 mg PO DAILY donepezil 5 mg tablet 5 mg PO DAILY carvedilol [Coreg] 6.25 mg tablet 6.25 mg PO BID Qty: 60 11RF Rx Instructions: must administer with a meal/food trazodone 50 mg tablet 100 mg PO QHS Patient Comments: SLEEP atorvastatin 40 mg tablet 40 mg PO QHS metoprolol tartrate 25 mg tablet 25 mg PO Q12H tamsulosin 0.4 mg capsule 0.4 mg PO DAILY famotidine 20 mg tablet 20 mg PO DAILY levothyroxine 100 mcg tablet 100 mcg PO DAILY potassium chloride 20 mEq tablet extended release 20 meq PO DAILY Qty: 90 3RF Hold Instructions: PCP stopped, will see how BMP is in 2 weeks Rx Instructions: Take 1 tablet by mouth once daily Referrals / Follow Up: Smith Orozco MD [Primary Care Provider] - 11/21/23 2:20 pm Felipe Hayes MD [Non-Staff] - 01/12/24 3:30 pm (Follow-up the workup including MRI of brain, C-spine, thoracic spine and lumbar spine. Office has you on a wait list if they have a cancellation.) Disposition Disposition (needs filled in before D/C Order can be placed): Home, Self Care Charges/Coding Addendum Addendum: Please cancel the billing charge of the progress note on same date. Visit Charges Inpatient E&M: 87143 Disch Hosp >30min
--- NOTE | 2023-11-15 15:23 | CASEMGMT ---
RN CM updated by therapy, patient did well and no therapy recommended at discharge. RN CM in to discuss needs at discharge and progress with therapy. Patient denies needs at discharge and has help at home. Patient had no further questions or concerns.
[2023-11-15 15:30] VITALS: BMI 20.5
--- NOTE | 2023-11-15 16:39 | CON.PCM.NE_ITS ---
Assessment and Plan: Neuro Assessment/Plan MANDA AKBAR is a 78 F with a medical history of carotid artery disease, memory problems, here for 2+ weeks of ataxia and gait difficulties. Diagnosis: multifactorial gait disturbance with clear correlation to work stressors and clear improvement on removal from this environment, with likely contributions from lumbar radiculopathy and vestibular dysfunction. MRIs are reassuring - no stroke, and based on time course this does not represent TIA either. Plan: - complete lumbar MRI to assess for severe foraminal narrowing - recommended she increase dietary salt intake as outpatient. Okay to use potassium salts as well. While salt can impact hypertension in a minority of the population, she currently deliberately eats a low salt diet and is at greater risk for falls without salt - recommend close outpatient follow up with outpatient neurologist - recommend outpatient physical therapy - Safe to d/c from neurology perspective I personally attended this patient and spent a total time of 45 minutes evaluating this patient including clinical assessment, review of chart, medical history imaging, and determining appropriate treatment and workup. HPI Consult Data Date of Consult: 11/15/23 HPI Narrative HPI Narrative: MANDA AKBAR, is a 78 F carotid artery disease, memory problems, PUD, GIB, hypothyroidism, diastolic dysfunction, palpitations, being evaluated by Teleneurology for 2+ weeks of ataxia and gait difficulties, with related problems of headache (currently remitted). Gait is currently much better, she says, and does typically get significantly better when she is not working. She does remark multiple falls over the last year, once in the shower and once while clmbing on short garden wall while garde chito. These do not seem to be accompanied by syncope. She denies sciatica but dos have pressure in her back. Her drift to one side switches sides, she says: first was left-leaning, ,and then right. She works at [employer] she says after I'm working an hour and a half the sympttoms start...tighness in my back and right leg turns in... 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 She does not climb ladders or otherwise undertake risky ambulation at work. She notes that headache remitted rapidly in hospital and that gait is also markedly improved, consonant with my exam today. She says she recently saw neurologist Dr. Hayes at [facility] who prescribed donepezil and recommended outpatient MRI David brush, which she was unable to schedule and has never had. She does She says who presents a medical history of carotid artery disease, memory problems, PUD, GIB, hypothyroidism, diastolic dysfunction, palpitations, being evaluated by Teleneurology for 2+ weeks of ataxia and gait difficulties, with related problems of headache. She explicitly and repeatedly explains that gait problems worsened in the context of greatly increased stress at work. She says she mostly eats salad and chicken at home. Deliberate low salt, low fat diet. [facility] Medical History Abdominal bloating Angina pectoris Aortic insufficiency Aortic valve disease Atherosclerotic heart disease of [place] coronary artery without angina pectoris Atrial fibrillation Bilateral carotid artery stenosis C. difficile colitis Carotid artery bruit Carotid stenosis, right Cataracts, bilateral Chest pain Chronic headache Colitis Constipation Diarrhea Diarrhea Diastolic dysfunction Dysphagia Essential hypertension Family history of premature coronary heart disease Fatigue GERD (gastroesophageal reflux disease) GI bleed GI problem Hearing problem History of GI bleed HLD (hyperlipidemia) Hypothyroidism Hypothyroidism Insomnia Iron deficiency anemia due to chronic blood loss Ischemic colitis senior living use of drug Lung nodule, multiple Migraines Non-smoker Nonspecific abnormal serum enzyme levels Osteoarthritis Palpitations Peptic ulcer disease Presence of stent in coronary artery (~04/19/21) Seasonal allergies Segmental colitis associated with diverticulosis Thyroid dysfunction TIA (transient ischemic attack) Ventricular hypertrophy Vision problem Home Medications levothyroxine 100 mcg tablet 100 mcg PO DAILY thyroid 04/28/21 [History Last Taken 07/28/21] trazodone 50 mg tablet 100 mg PO QHS sleep 05/04/22 [History Last Taken Unknown] potassium chloride 20 mEq tablet,extended release 20 meq PO DAILY supplement #90 tabs 05/26/22 [Rx Last Taken Unknown] carvedilol 6.25 mg tablet (Coreg) 6.25 mg PO BID blood pressure #60 tabs 10/16/23 [Rx Last Taken Unknown] colestipol 1 gram tablet (Colestid) 1 g PO BID cholesterol 10/16/23 [History Last Taken Unknown] donepezil 5 mg tablet 5 mg PO DAILY memory 10/16/23 [History Last Taken Unknown] lisinopril 10 mg tablet 20 mg PO DAILY blood pressure 10/16/23 [History Last Taken Unknown] atorvastatin 40 mg tablet 40 mg PO QHS cholesterol 11/13/23 [History Last Taken Unknown] famotidine 20 mg tablet 20 mg PO DAILY reflux 11/13/23 [History Last Taken Unknown] metoprolol tartrate 25 mg tablet 25 mg PO Q12H blood pressure 11/13/23 [History Last Taken Unknown] tamsulosin 0.4 mg capsule 0.4 mg PO DAILY prostate 11/13/23 [History Last Taken Unknown] Allergy/AdvReac Type Severity Reaction Status Date / Time albuterol Allergy Intermediate GI upset Verified 11/13/23 13:02 cyclobenzaprine Allergy Intermediate mental Verified 11/13/23 13:02 [From Flexeril] status change hydrocodone [From Vicodin] Allergy Intermediate muscle Verified 11/13/23 13:02 twitching oxycodone Allergy Intermediate Vomiting Verified 11/13/23 13:02 amoxicillin Allergy Mild Swelling Verified 11/13/23 13:02 clindamycin Allergy Mild Swelling Verified 11/13/23 13:02 diatrizoate meglumine Allergy Mild Itching Verified 11/13/23 13:02 Tetanus Vaccines and Toxoid Allergy Mild Hives Verified 11/13/23 13:02 codeine AdvReac Intermediate Nausea & Verified 11/13/23 13:02 Vomiting benzonatate AdvReac Mild Vomiting Verified 11/13/23 13:02 [From Tessalon Perles] hydrochlorothiazide AdvReac Mild intolerance Verified 11/13/23 13:02 [From Dyazide] triamterene [From Dyazide] AdvReac Mild intolerance Verified 11/13/23 13:02 erythromycin base AdvReac Nausea Verified 11/13/23 13:02 Family History Mother , Age 76 heart attack Myocardial infarction Heart disease Cardiomyopathy Hypertension Osteoporosis Father , Heart Disease Age 86 Heart disease Parkinson disease CVA (cerebral vascular accident) Hypertension Unknown Thyroid disorder Stomach ulcer Surgical History History of appendectomy History of colonoscopy (~08/2020) History of coronary artery stent placement History of esophagogastroduodenoscopy (EGD) (~08/2020) History of hysterectomy History of thyroidectomy Presence of coronary angioplasty implant and graft (~09/01/15) Social History household members: spouse Smoking Status: Never smoker alcohol intake: current alcohol intake frequency: holidays/special occasions only Alcohol type: wine substance use type: does not use diet: other caffeine: Yes Type: coffee Number of servings: 3 what type of physical activity do you participate in: walking frequency: 3-4 times per week seatbelt use: always do you feel safe at home: Yes Vital Signs Vital Signs Vital Signs: 11/14/23 20:48 11/14/23 22:00 11/14/23 22:00 Temperature 97.7 F L Temperature Source Axillary Pulse Rate 75 Pulse Strength Normal (2+) Respiratory Rate 18 Respiratory Effort Normal Non-Labored Respiratory Depth Normal Respiratory Pattern Normal Blood Pressure 134/85 H Blood Pressure Mean 101 Blood Pressure Source Monitor Blood Pressure Position Semi-Fowlers Blood Pressure Location Right Arm Pulse Ox 98 Oxygen Delivery Method Room Air Room Air 11/15/23 00:31 11/15/23 00:30 11/15/23 06:02 Temperature 97.9 F 98.5 F Temperature Source Oral Oral Pulse Rate 72 65 Pulse Strength Respiratory Rate 18 18 Respiratory Effort Respiratory Depth Respiratory Pattern Blood Pressure 135/57 H 119/46 L Blood Pressure Mean 83 70 Blood Pressure Source Monitor Monitor Blood Pressure Position Semi-Fowlers Semi-Fowlers Blood Pressure Location Right Arm Right Arm Pulse Ox 94 97 Oxygen Delivery Method Room Air Room Air Room Air 11/15/23 06:58 11/15/23 13:00 11/15/23 14:00 Temperature 98.7 F Temperature Source Oral Pulse Rate 88 Pulse Strength Respiratory Rate 16 Respiratory Effort Normal Non-Labored Respiratory Depth Normal Respiratory Pattern Normal Blood Pressure 154/62 H Blood Pressure Mean 92 Blood Pressure Source Monitor Blood Pressure Position Semi-Fowlers Blood Pressure Location Right Arm Pulse Ox 93 97 Oxygen Delivery Method Room Air Room Air Room Air Weight Weight: 52.662 kg Body Mass Index (BMI) 20.5 EEG Results Procedure Details EEG Procedure Details: MANDA AKBAR is a 78 year old F with a past medical history of , who presents for evaluation of Electroencephalogram on DATE at TIME NIHSS NIHSS Nursing Documentation NIHSS Nursing Documentation: NIHSS: Ischemic Stroke/TIA Start: 11/13/23 20:39 Text: For PCU Patients: NIH and Neuro Check every 4 Status: Complete hours and PRN Freq: [id number] Protocol: Activity Type Activity Date Activity User E-sign Co-sign Detail Recorded Client Recorded Date Recorded By Document 11/14/23 20:48 DC Desktop 11/14/23 20:58 DC 11/14/23 20:48 NIH Stroke Scale [NIHSS] A score of 0 is normal or asymptomatic . Total possible score is 42. Inpatient: RN or Physician to activate a stroke alert for onset of new stroke symptoms or with NIHSS increase >/= 3 points. Following change in neurological status, NIHSS will be performed per physician order or more frequently PRN. -1a. Level of Consciousness Alert; keenly responsive -1b. LOC Questions Answers BOTH questions correctly. -1c. LOC Commands Performs both tasks correctly . -2. Best Gaze Normal -3. Visual No visual loss -4. Facial Palsy Minor paralysis (flattened nasolabial fold , asymmetry on smiling) -5a. Left Arm No drift; arm holds 90 (or 45 ) degrees for full 10 seconds -5b. Right Arm No drift; arm holds 90 (or 45 ) degrees for full 10 seconds -6a. Left Leg No drift; leg holds 30-degree position for full 5 seconds -6b. Right Leg No drift; leg holds 30-degree position for full 5 seconds -7. Limb Ataxia Absent -8. Sensory Normal; no sensory loss -9. Best Language No aphasia; normal -10. Dysarthria Normal -11. Extinction and Inattention No abnormality -Total 1 Query Text:A score of 0 is normal or asymptomatic. Total possible score is 42 . ED: Notify Physician for NIHSS increase by > / = 3 points. Inpatient: RN or Physician to activate a stroke alert for NIHSS increase of > / = 3 points. Coma Scale [Assess] -Eye Opening Spontaneous -Motor Obeys Commands -Verbal Oriented [Total] -Coma Scale Total 15 NIHSS: Ischemic Stroke/TIA Start: 11/13/23 20:39 Text: For ICU Patients: NIH sroke scale at Status: Complete presentation and every 2 hours or with change in RN caregiver Freq: [id number] Protocol: Activity Type Activity Date Activity User E-sign Co-sign Detail Recorded Client Recorded Date Recorded By Document 11/14/23 08:05 SS Desktop 11/14/23 08:17 SS 11/14/23 08:05 NIH Stroke Scale [NIHSS] A score of 0 is normal or asymptomatic . Total possible score is 42. Inpatient: RN or Physician to activate a stroke alert for onset of new stroke symptoms or with NIHSS increase >/= 3 points. Following change in neurological status, NIHSS will be performed per physician order or more frequently PRN. -1a. Level of Consciousness Alert; keenly responsive -1b. LOC Questions Answers BOTH questions correctly. -1c. LOC Commands Performs both tasks correctly . -2. Best Gaze Normal -3. Visual No visual loss -4. Facial Palsy Minor paralysis (flattened nasolabial fold , asymmetry on smiling) -5a. Left Arm No drift; arm holds 90 (or 45 ) degrees for full 10 seconds -5b. Right Arm No drift; arm holds 90 (or 45 ) degrees for full 10 seconds -6a. Left Leg No drift; leg holds 30-degree position for full 5 seconds -6b. Right Leg No drift; leg holds 30-degree position for full 5 seconds -7. Limb Ataxia Present in 1 limb -8. Sensory Normal; no sensory loss -9. Best Language No aphasia; normal -10. Dysarthria Normal -11. Extinction and Inattention No abnormality -Total 2 Query Text:A score of 0 is normal or asymptomatic. Total possible score is 42 . ED: Notify Physician for NIHSS increase by > / = 3 points. Inpatient: RN or Physician to activate a stroke alert for NIHSS increase of > / = 3 points. Physical Exam Neuro Neuro Narrative: Examined over video with assistance of nursing. AOx3, naming and repetition intact, fund of knowledge intact, able and appropriate historian. Gait slow but without gross disequilibrium. No foot drop. No en bloc turn or difficulty with initiation. Can transition independently. CN II-XII intact, 5/5 strength SA/EE/EF, educational speech language clinician; 5/5 ankle DF/PF. Left sided hip flexion is stronger on direct comparison to right, which is still antigravity. Heel to grande poor LS and RS. Crossed commands intact, as is finger to nose and finger to ear. Finger tapping is slow. Sensation intact to light touch in all four extremities. DTRs intact at patellas and ankles bilaterally. Lab / Micro Data 11/14/23 06:45 11/15/23 06:50 Labs: Laboratory Results - last 24 hr 11/14/23 14:20: Syphilis Total Ab Non-reactive, HIV 1&2 Antibody Non-Reactive 11/15/23 06:50: Sodium 142, Potassium 4.2, Chloride 110 H, Carbon Dioxide 28.0, Anion Gap 4 L, BUN 15, Creatinine 0.87, Estim Creat Clear Calc 43.37, Est GFR (MDRD) Af Amer 81, Est GFR (MDRD) Non-Af 67, BUN/Creatinine Ratio 17.2, Glucose 103, Hemoglobin A1c 5.0, Calcium 8.5, TSH 2.72, Free T4 1.27 Imaging Radiology Impression Thoracic Spine MRI 11/14/23 13:31 IMPRESSION: Moderate kyphosis. No acute disease. Electronically Signed: Brian Ng MD at 21:36 EST Reading Location ID and State: [address] [place] [address] Tel , Service support , Brain MRI 11/14/23 17:30 IMPRESSION: No acute disease Electronically Signed: Brian Ng MD at 21:52 EST Reading [facility] , Service support , Cervical Spine MRI 11/14/23 17:30 IMPRESSION: Neural foraminal narrowing on the right at C4-5 and C5-6 due to uncinate spondylosis Electronically Signed: Brian Ng MD at 21:41 EST Reading Location ID and State: [address] [place] [address] Tel , Service support , Active Medications Active Medications Active Medications: Current Medications Generic Name Dose Route Start Last Admin Trade Name Freq PRN Reason Stop Dose Admin Acetaminophen 650 mg 11/13/23 20:39 11/14/23 16:28 Acetaminophen 325 Mg Tablet PO 650 mg Q4H PRN PRN Administration Pain 1-10 Or Fever>99.6 Aspirin 81 mg 11/14/23 08:00 11/15/23 09:17 Aspirin 81 Mg Tab.Chew PO 81 mg BREAKFAST TRINITY Administration Atorvastatin Calcium 40 mg 11/13/23 22:00 11/14/23 21:00 Atorvastatin Calcium 40 Mg Tablet PO 40 mg QHS [facility]ITY Administration Colestipol HCl 1 gm 11/13/23 22:00 11/15/23 09:17 Colestipol 1 Gm Tablet PO 1 gm BID [facility] Administration Donepezil HCl 5 mg 11/14/23 10:00 11/15/23 09:17 Donepezil Hcl 5 Mg Tablet PO 5 mg DAILY [facility]ITY Administration Enoxaparin Sodium 40 mg 11/14/23 10:00 11/15/23 09:17 Enoxaparin 40 Mg/0.4 Ml Syringe SC 40 mg DAILY [facility]ITY Administration Famotidine 20 mg 11/14/23 10:00 11/15/23 09:17 Famotidine 20 Mg Tablet PO 20 mg DAILY [facility]ITY Administration Hydralazine HCl 5 mg 11/13/23 20:39 Hydralazine 20 Mg/Ml Vial IV Q30M PRN to maintain BP goals Sodium Chloride 250 mls @ 15 mls/hr 11/13/23 21:15 IV .[id number] PRN Additional IVPB Infusion Sodium Chloride 250 mls @ 15 mls/hr 11/13/23 21:15 IV .[id number] PRN Saline Flush Thiamine HCl 250 mg/ Sodium 52.5 mls @ 200 mls/hr 11/15/23 14:00 11/15/23 15:34 Chloride IV 11/18/23 06:16 Infused Q8H TR[facility]ITY Infusion Labetalol HCl 10 - 20 mg 11/13/23 20:39 Labetalol (Prefilled) 20 Mg/4 Ml IV Q10M PRN PRN to Maintain BP Goals Levothyroxine Sodium 100 mcg 11/14/23 06:00 11/15/23 06:04 Levothyroxine 100 Mcg Tablet PO 100 mcg 0600 TRINITY Administration Melatonin 3 mg 11/13/23 20:39 Melatonin 3 Mg Tablet PO QHS PRN PRN INSOMNIA Metoclopramide HCl 5 mg 11/15/23 12:20 11/15/23 12:45 Metoclopramide 10 Mg/2 Ml Vial IV 5 mg Q6H PRN Administration nausea Ondansetron HCl 4 mg 11/15/23 14:32 Ondansetron 4 Mg/2 Ml Vial IV Q6H PRN PRN NAUSEA/VOMITING Senna/Docusate Sodium 2 tablet 11/13/23 20:39 Senna/Docusate Sodium 1 Tablet PO BID PRN PRN Constipation Sodium Chloride 10 - 40 ml 11/13/23 21:15 11/15/23 12:46 0.9% Saline Lock 10 Ml Syringe IV 10 ml UD PRN Administration SALINE FLUSH Tamsulosin HCl 0.4 mg 11/14/23 10:00 11/15/23 09:17 Tamsulosin Hcl 0.4 Mg Capsule PO 0.4 mg DAILY TRINITY Administration Trazodone HCl 100 mg 11/13/23 22:00 11/14/23 21:00 Trazodone 100 Mg Tablet PO 100 mg QHS TRINITY Administration
[2023-11-15 18:00] VITALS: BP 153/83; PULSE 108; RESP 16; TEMP 36.5; O2SAT 98
[2023-11-16 12:09] LABS: ANTINUCLEAR ANTIBODIES DIRECT Negative (Negative); Anti-Centromere B Ab <0.2 AI (0.0-0.9); Anti-Chromatin <0.2 AI (0.0-0.9); Anti-Jo <0.2 AI (0.0-0.9); Anti-Scleroderma-70 AB <0.2 AI (0.0-0.9); Anti-dsDNA Ab 1 IU/mL (0-9); RNP Ab <0.2 AI (0.0-0.9); SJOGREN'S Anti-SS-A test < 0.2 AI (0.0-0.9); SJOGREN'S Anti-SS-B test < 0.2 AI (0.0-0.9); Smith Ab <0.2 AI (0.0-0.9)
[2023-11-16 16:10] LABS: Ceruloplasmin 20.5 mg/dL (19.0-39.0); Endomysial Antibody IgA Negative (Negative); Free Kappa Light Chains 19.8 mg/L (3.3-19.4); Free Lambda Light Chains 11.9 mg/L (5.7-26.3); Immunoglobulin A 197 mg/dL (64-422); t-Transglutaminase IgA <2 U/mL (0-3)
[2023-11-17 09:09] LABS: Anti-Thyroglobulin AB < 1.0 IU/mL (0.0-0.9); Thyroglobulin, Serum Qt. 0.1 ng/mL (1.5-38.5); Thyroid Peroxidase AB < 9 IU/mL (0-34)
[2023-11-18 09:08] LABS: Albumin 3.7 g/dL (2.9-4.4); Alpha-1-Globulins 0.3 g/dL (0.0-0.4); Alpha-2-Globulins 0.7 g/dL (0.4-1.0); CCP IgG Antibodies 0 units (0-19); Gamma Globulin 0.7 g/dL (0.4-1.8); Immunoglobulin A 221 mg/dL (64-422); Immunoglobulin E 24 IU/mL (6-495); Immunoglobulin G 803 mg/dL (586-1602); Immunoglobulin M 62 mg/dL (26-217); PROEL- TOTAL PROTEIN 6.3 g/dL (6.0-8.5)
[2023-11-19 22:06] LABS: Copper, Serum or Plasma 79 ug/dL (80-158); Vitamin B1, Thiamine 273.6 nmol/L (66.5-200.0)
== END 2023-11-15 19:45 | disposition home or self-care (01) | DRG 92 ==
LOC: ED 14:37 → PCU 20:12
PROVIDERS: Admitting Provider Internal Medicine; Emergency Provider Emergency Medicine; PCP Family Medicine; Referring Provider Internal Medicine; Visit Provider Internal Medicine
DX: R27.0 Ataxia, unspecified (principal); I50.30 Unspecified diastolic (congestive) heart failure; I11.0 Hypertensive heart disease with heart failure; E89.0 Postprocedural hypothyroidism; E78.5 Hyperlipidemia, unspecified; I25.10 Atherosclerotic heart disease of native coronary artery without angina pectoris; M54.50 Low back pain, unspecified; K21.9 Gastro-esophageal reflux disease without esophagitis; M54.16 Radiculopathy, lumbar region; M48.061 Spinal stenosis, lumbar region without neurogenic claudication; R29.6 Repeated falls; G89.29 Other chronic pain; R41.3 Other amnesia; R01.1 Cardiac murmur, unspecified; Z79.890 Hormone replacement therapy; Z79.899 Other long term (current) drug therapy; Z87.11 Personal history of peptic ulcer disease; Z95.5 Presence of coronary angioplasty implant and graft
CPT/HCPCS: 36415; 70496; 70498; 70553; 71045; 72148; 72156; 72157; 80048; 80053; 80061; 82390; 82525; 82607; 82746; 82784; 82785; 83036; 83516; 83735; 83883; 84100; 84165; 84425; 84432; 84439; 84443; 84484; 85025; 85610; 85652; 85730; 86038; 86140; 86200; 86225; 86235; 86255; 86334; 86376; 86703; 86780; 86800; 93005; 93306; 94668; 97162; 97166; 97530; 97802; 99284; A9575; J7040; Q9967; A4216; J2405; J3490

== ENCOUNTER → 2023-12-20 | Outpatient (CLI) | payer BC, MEDICARE, SELFPAY ==
[2023-12-20 17:57] LABS: Erythrocyte Sedimentation Rate 1 mm/hr (0-30)
[2023-12-20 18:16] LABS: CRP < 2.90 mg/L (0.0-3.0)
[2023-12-20 18:17] LABS: Thyroid Stim Hormone (TSH) 1.42 uIU/mL (0.358-3.74)
[2023-12-22 14:10] LABS: Anti-Centromere B Ab <0.2 AI (0.0-0.9); Anti-Chromatin <0.2 AI (0.0-0.9); Anti-Jo <0.2 AI (0.0-0.9); Anti-Scleroderma-70 AB <0.2 AI (0.0-0.9); Anti-dsDNA Ab 2 IU/mL (0-9); RNP Ab <0.2 AI (0.0-0.9); SJOGREN'S Anti-SS-A test < 0.2 AI (0.0-0.9); SJOGREN'S Anti-SS-B test < 0.2 AI (0.0-0.9); Smith Ab <0.2 AI (0.0-0.9)
[2023-12-28 00:07] LABS: Albumin 3.8 g/dL (2.9-4.4); Alpha-1-Globulins 0.2 g/dL (0.0-0.4); Alpha-2-Globulins 0.7 g/dL (0.4-1.0); Free Kappa Light Chains 16.8 mg/L (3.3-19.4); Free Lambda Light Chains 11.9 mg/L (5.7-26.3); Gamma Globulin 0.8 g/dL (0.4-1.8); Immunoglobulin A 203 mg/dL (64-422); Immunoglobulin E 11 IU/mL (6-495); Immunoglobulin G 850 mg/dL (586-1602); Immunoglobulin M 56 mg/dL (26-217); PROEL- TOTAL PROTEIN 6.4 g/dL (6.0-8.5)
== END | disposition home or self-care (01) ==
PROVIDERS: Internal Medicine; PCP Family Medicine; Referring Provider Ophthalmology; Visit Provider Ophthalmology
DX: R51.9 Headache, unspecified (principal); R63.4 Abnormal weight loss; M54.9 Dorsalgia, unspecified
CPT/HCPCS: 36415; 82784; 82785; 83883; 84165; 84443; 85652; 86140; 86225; 86235; 86334

== ENCOUNTER 2024-01-04 14:59 | Inpatient (IN) | payer BC, MEDICARE, SELFPAY ==
[2024-01-04] VITALS (27 sets, daily range): BP systolic 116–211; BP diastolic 47–104; PULSE 64–91; RESP 12–20; TEMP 35.5–37; O2SAT 94–99; BMI 21.2; BMI 23.1
--- NOTE | 2024-01-04 16:19 | EX.ED.VIS.HA ---
HPI History of Present Illness Chief Complaint: Headache Informant: patient Onset/Context/Timing Onset: Days Narrative Narrative: Patient presents secondary to headache for the past 3 to 4 days. She states she feels like her head is in a vice. She does have light sensitivity and nausea. She denies any recent head trauma. She does report some mild URI's symptoms. No fever has been noted. [facility] Medical History Abdominal bloating Angina pectoris Aortic insufficiency Aortic valve disease Atherosclerotic heart disease of [place] coronary artery without angina pectoris Atrial fibrillation Bilateral carotid artery stenosis C. 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 Lung nodule, multiple Migraines Non-smoker Nonspecific abnormal serum enzyme levels Osteoarthritis Palpitations Peptic ulcer disease Presence of stent in coronary artery (~04/19/21) Seasonal allergies Segmental colitis associated with diverticulosis Thyroid dysfunction TIA (transient ischemic attack) Ventricular hypertrophy Vision problem Home Medications carvedilol 6.25 mg tablet (Coreg) 6.25 mg PO BID blood pressure #60 tabs 10/16/23 [Rx Last Taken 01/04/24] colestipol 1 gram tablet (Colestid) 1 g PO BID cholesterol 10/16/23 [History Last Taken 01/04/24] donepezil 5 mg tablet 5 mg PO DAILY memory 10/16/23 [History Last Taken 01/04/24] atorvastatin 40 mg tablet 40 mg PO QHS cholesterol 11/13/23 [History Last Taken 01/03/24] famotidine 20 mg tablet 20 mg PO DAILY reflux 11/13/23 [History Last Taken 01/04/24] aspirin 81 mg tablet,delayed release (Adult Low Dose Aspirin) 81 mg PO DAILY 11/29/23 [History Last Taken 01/04/24] levothyroxine 100 mcg tablet 88 mcg PO DAILY thyroid 11/29/23 [History Last Taken 01/04/24] lisinopril 20 mg tablet 20 mg PO BID blood pressure #60 tabs 11/29/23 [Rx Last Taken 01/04/24] meloxicam 15 mg tablet 15 mg PO DAILY 01/04/24 [History Last Taken 01/04/24] trazodone 50 mg tablet 100 mg PO QHS PRN insomnia 01/04/24 [History Last Taken 01/03/24] Allergy/AdvReac Type Severity Reaction Status Date / Time albuterol Allergy Intermediate GI upset Verified 01/04/24 15:03 cyclobenzaprine Allergy Intermediate mental Verified 01/04/24 15:03 [From Flexeril] status change hydrocodone [From Vicodin] Allergy Intermediate muscle Verified 01/04/24 15:03 twitching oxycodone Allergy Intermediate Vomiting Verified 01/04/24 15:03 amoxicillin Allergy Mild Swelling Verified 01/04/24 15:03 clindamycin Allergy Mild Swelling Verified 01/04/24 15:03 diatrizoate meglumine Allergy Mild Itching Verified 01/04/24 15:03 Tetanus Vaccines and Toxoid Allergy Mild Hives Verified 01/04/24 15:03 codeine AdvReac Intermediate Nausea & Verified 01/04/24 15:03 Vomiting benzonatate AdvReac Mild Vomiting Verified 01/04/24 15:03 [From Tessalon Perles] hydrochlorothiazide AdvReac Mild intolerance Verified 01/04/24 15:03 [From Dyazide] triamterene [From Dyazide] AdvReac Mild intolerance Verified 01/04/24 15:03 erythromycin base AdvReac Nausea Verified 01/04/24 15:03 Family History Mother , Age 76 heart attack Myocardial infarction Heart disease Cardiomyopathy Hypertension Osteoporosis Father , Heart Disease Age 86 Heart disease Parkinson disease CVA (cerebral vascular accident) Hypertension Unknown Thyroid disorder Stomach ulcer Surgical History History of appendectomy History of colonoscopy (~08/2020) History of coronary artery stent placement History of esophagogastroduodenoscopy (EGD) (~08/2020) History of hysterectomy History of thyroidectomy Presence of coronary angioplasty implant and graft (~09/01/15) Social History household members: spouse Smoking Status: Never smoker alcohol intake: current alcohol intake frequency: holidays/special occasions only Alcohol type: wine substance use type: does not use diet: other caffeine: Yes Type: coffee Number of servings: 3 what type of physical activity do you participate in: walking frequency: 3-4 times per week seatbelt use: always do you feel safe at home: Yes ROS ROS ED Constitutional Constitutional ED: Denies chills or fever(s) Eyes Eyes: Denies blurry vision, change in vision or discharge from eye(s) ENT ENT ED: Reports other Details: Sinus pressure ; Denies discharge from eye(s), rhinorrhea or sore throat Cardiovascular Cardiovascular: Denies chest pain or palpitations Respiratory/Chest Respiratory/Chest: Denies cough or dyspnea Gastrointestinal Gastrointestinal: Reports nausea; Denies abdominal pain or vomiting Musculoskeletal Musculoskeletal: Denies back pain or extremity pain Integumentary Denies Abrasions or rash Neurologic Neurologic: Reports headache(s); Denies weakness Psychiatric Psychiatric: Denies anxiety or depression Allergic/Immunologic Allergic/Immunologic ED: Denies lip swelling or urticaria EXAM Physical Exam Const Vital Signs: 01/04/24 15:00 01/04/24 17:00 01/04/24 17:09 Temperature 96 F L Temperature Source Temporal Pulse Rate 91 84 84 Respiratory Rate 16 16 20 H Blood Pressure 157/104 H 187/67 H 187/67 H Blood Pressure Mean 121 107 107 Blood Pressure Source Blood Pressure Position Blood Pressure Location Pulse Ox 97 95 96 Oxygen Delivery Method Room Air Room Air Room Air 01/04/24 17:11 01/04/24 17:14 01/04/24 17:30 Temperature Temperature Source Pulse Rate 81 70 Respiratory Rate 16 17 Blood Pressure 211/90 H Blood Pressure Mean 130 Blood Pressure Source Blood Pressure Position Blood Pressure Location Pulse Ox 95 97 Oxygen Delivery Method Room Air Room Air Room Air 01/04/24 17:59 01/04/24 17:46 01/04/24 18:00 Temperature Temperature Source Pulse Rate 64 72 76 Respiratory Rate 18 19 H 17 Blood Pressure 203/74 H 208/91 H 172/68 H Blood Pressure Mean 117 130 102 Blood Pressure Source Monitor Blood Pressure Position Blood Pressure Location Pulse Ox 95 95 97 Oxygen Delivery Method Room Air Room Air Room Air 01/04/24 18:08 01/04/24 18:10 01/04/24 18:16 Temperature 97.6 F L 98.6 F Temperature Source Temporal Oral Pulse Rate 73 78 Respiratory Rate 17 12 Blood Pressure 172/65 H 172/68 H 140/62 H Blood Pressure Mean 102 88 Blood Pressure Source Monitor Monitor Blood Pressure Position Semi-Fowlers Blood Pressure Location Right Arm Pulse Ox 97 97 Oxygen Delivery Method Room Air Room Air 01/04/24 18:31 01/04/24 18:33 01/04/24 18:46 Temperature 98.4 F 98 F Temperature Source Oral Oral Pulse Rate 77 75 70 Respiratory Rate 15 14 12 Blood Pressure 116/47 L 116/47 L 133/49 H Blood Pressure Mean 70 70 77 Blood Pressure Source Monitor Monitor Blood Pressure Position Semi-Fowlers Semi-Fowlers Blood Pressure Location Right Arm Right Arm Pulse Ox 94 94 97 Oxygen Delivery Method Room Air Room Air Room Air 01/04/24 19:01 01/04/24 19:16 01/04/24 19:26 Temperature 98.6 F 98.6 F 98.4 F Temperature Source Oral Oral Pulse Rate 70 76 68 Respiratory Rate 15 16 16 Blood Pressure 139/53 H 142/62 H 143/76 H Blood Pressure Mean 81 88 98 Blood Pressure Source Monitor Monitor Blood Pressure Position Semi-Fowlers Semi-Fowlers Blood Pressure Location Left Arm Right Arm Pulse Ox 97 96 95 Oxygen Delivery Method Room Air Room Air 01/04/24 19:31 01/04/24 20:01 01/04/24 20:31 Temperature 98.4 F 98.3 F 98.6 F Temperature Source Oral Oral Temporal Pulse Rate 71 80 77 Respiratory Rate 15 16 17 Blood Pressure 141/68 H 150/67 H 146/70 H Blood Pressure Mean 92 94 95 Blood Pressure Source Manual Monitor Monitor Blood Pressure Position Semi-Fowlers Semi-Fowlers Semi-Fowlers Blood Pressure Location Left Arm Right Arm Right Arm Pulse Ox 97 99 96 Oxygen Delivery Method Room Air Room Air Room Air 01/04/24 21:01 Temperature 98.6 F Temperature Source Temporal Pulse Rate 75 Respiratory Rate 18 Blood Pressure 154/71 H Blood Pressure Mean 98 Blood Pressure Source Monitor Blood Pressure Position Semi-Fowlers Blood Pressure Location Right Arm Pulse Ox 96 Oxygen Delivery Method Room Air Positive well nourished and well developed General Appearance ED: well developed HEENT Reports moist mucous membranes Eyes EOMs intact bilaterally Neck no meningeal signs Resp normal respiratory effort and clear to auscultation bilaterally Cardio regular rate and regular rhythm GI non-tender Palpation: soft Extremity normal to inspection Neuro oriented x3 and no sensory deficits noted Sensorium / Orientation: alert Motor Exam: strength 5/5 throughout Psych mental status grossly normal Skin Lesions: no lesions Rashes: no rashes MDM MDM MDM Narrative Medical decision making narrative: Patient was recently admitted November 12 through the for vertigo type symptoms with frequent falls. She had an MRI of the brain at that time that was unremarkable. Patient will undergo noncontrast head CT at this time to evaluate for any evidence of bleed. She will be given IV fluids, Toradol, Reglan, Benadryl. History & Record Review Discussion w/independent historian: Patient Additional record(s) reviewed:: Prior inpatient record, Prior ED visit and Prior labs Lab Data Attestation: I reviewed the patient's lab results. Labs: Laboratory Results - last 24 hr 01/04/24 01/04/24 17:07 17:10 WBC 5.1 RBC 4.17 L Hgb 12.5 Hct 36.0 L MCV 86.3 MCH 30.0 MCHC 34.7 RDW Std Deviation 36.3 RDW Coeff of Jase 11.5 L Plt Count 215 MPV 8.3 Immature Gran % (Auto) 0.400 Neut % (Auto) 67.1 Lymph % (Auto) 25.3 [place] % (Auto) 6.4 Eos % (Auto) 0.6 Baso % (Auto) 0.2 Absolute Neuts (auto) 3.4 Absolute Lymphs (auto) 1.30 Nucleated RBC % 0 PT 14.1 INR 1.1 APTT 39.5 H Sodium 138 Potassium 3.6 Chloride 106 Carbon Dioxide 27.0 Anion Gap 5 BUN 11 Creatinine 0.71 Estim Creat Clear Calc 47.17 Est GFR (MDRD) Af Amer 102 Est GFR (MDRD) Non-Af 84 BUN/Creatinine Ratio 15.4 Glucose 101 Calcium 7.9 L Troponin I High Sens 9 POC Glucose 102 Radiography Chest X-Ray - ED: 1 View, Read by ED Physician and - (Chronic changes with hyperinflation. No focal infiltrate.) Diagnostic Testing: Clinical Impression(s) from Imaging Studies Brain CT 01/04/24 16:53 IMPRESSION: No acute intracranial pathology. Age-related changes. Electronically Signed: Ludin Ware DO at 17:11 EDT , ADDENDUM: 01/04/24 1720 IMPRESSION: No acute intracranial pathology. Age-related changes. N.B. : The above Results were Read Back by Ludin Ware DO to Izabella Mendoza MD, and understanding confirmed on 01/04/2024 17:13:56 (ET). Electronically Signed: Ludin Ware DO at 17:11 EDT , ADDENDUM: 01/04/24 1737 IMPRESSION: No acute intracranial pathology. Age-related changes. N.B. : The above Results were Read Back by Ludin Ware DO to Izabella Mendoza MD, and understanding confirmed on 01/04/2024 17:30:25 (ET). Electronically Signed: Ludin Ware DO at 17:11 EDT , Head/Neck CTA 01/04/24 16:57 IMPRESSION: Status post right calcifications at the carotid bulbs and proximal internal carotid arteries with less than 50% luminal stenosis. No significant interval changes of the intracranial major arteries. Electronically Signed: Ludin Ware DO at 18:25 EDT , ADDENDUM: 01/04/24 1832 IMPRESSION: Status post right calcifications at the carotid bulbs and proximal internal carotid arteries with less than 50% luminal stenosis. No significant interval changes of the intracranial major arteries. N.B. : The above Results were Read Back by Ludin Ware DO to Izabella Mendoza MD, and understanding confirmed on 01/04/2024 18:25:52 (ET). Electronically Signed: Ludin Ware DO at 18:25 EDT , Chest X-Ray 01/04/24 17:30 IMPRESSION: Mild left basilar infiltration/atelectasis. Electronically Signed: Ludin Ware, DO at 17:49 EDT , EKG Initial EKG: Attestation: I personally reviewed and interpreted this EKG as follows: Interpretation: Sinus Rhythm (Sinus at 64 with no acute ischemia.) Treatment and Re-Evaluation Narrative: Nursing staff came to me and asked me to reevaluate the patient just after she got her medications. They state that she was having expressive aphasia. When she went in the room to give the patient the medications she was speaking normally. When arrived at bedside patient is sitting upright in bed. She is having difficulty expressing what she wants to say. I asked her if she knows what she wants to say but cannot get it out she nods her head yes. She denies numbness or tingling to her extremities. She states her headache is not any worse than previous. Head neck examination reveals no evidence of facial droop. Sensation is normal on testing of the face. Patient is able to hold both arms up parallel to the bed without drift. She does have some baseline tremor. Patient has able to hold both legs off the bed to a count of 3 and they both slowly drift back to the bed. She reports normal sensation in her lower extremities. Stroke alert was initiated. Patient taken immediately for CT of the head along with CTA of the head and neck. On return to the emergency room patient was still having some expressive aphasia but symptoms were somewhat improving. Neurologist from [facility] to evaluate the patient over the robot. She had conflicting results at times on her NIH scale, but overall scored approximately a 5. Although speech was improved she was not fluent. He did discuss with the patient the possibility that this is a medication reaction as she had just been given Toradol, Reglan, and Benadryl. He did offer TNK to her given her speech difficulties. She did agree to TNK, but had elevated blood pressure at the time. After 2 doses of IV labetalol she was initiated on a Cardene drip for BP control. When I reevaluated the patient her systolic pressure was 172. She stated that her headache was slightly worse at this time after had previously improved, but she did agree that her speech was improving. She still had slight loss of fluidity. We again discussed whether to give TNK or not with risks of bleeding. She agrees to go ahead and proceed with TNK. CT of the head shows no acute findings. CTA of the head and neck revealed some chronic changes with no acute findings. CBC was normal white count 5.1 with a hemoglobin of 12.5. Coags are unremarkable. Chemistry studies are normal. Troponin is 9. Portable chest x-ray per my interpretation reveals hyperinflation with no focal infiltrate. Radiology interpretation reviewed and agrees. Patient's blood pressure did drop down to 116 systolic on Cardene drip and it was therefore stopped. At reevaluation patient felt well and felt like her speech was continuing to improve. I will speak with hospitalist regarding admission. Critical Care Time Critical Care Time: Yes Critical care time (excluding procedures): 30-74 minutes (40 minutes), Discussing w/Patient &/or Family/Mechanical Apprentice, Discussing w/Consultants, Arranging Admission or Transfer and Performing Direct Patient Care at Bedside Discharge Plan Dx/Rx/DC Orders Clinical Impression: Migraine, CVA (cerebral vascular accident) Disposition Disposition: [facility] Discharge Date/Time: 01/04/24 21:54
[2024-01-04] MEDS: 0.9% Normal Saline (500mL Bag) 500 ML 999 ML IV (16:37)
[2024-01-04] MEDS: Ketorolac 15 MG/ML Vial IV (16:37)
[2024-01-04] MEDS: Metoclopramide 10 MG/2 ML Vial 5 MG IV (16:37)
[2024-01-04] MEDS: DiphenhydrAMINE 50 MG/ML Syringe 12.5 MG IV (16:38)
--- NOTE | 2024-01-04 16:53 | EKG12_ITS ---
Test Reason : STROKE TEAM Blood Pressure : / mmHG Vent. Rate : 064 BPM Atrial Rate : 064 BPM P-R Int : 188 ms QRS Dur : 066 ms QT Int : 460 ms P-R-T Axes : 062 039 058 degrees QTc Int : 474 ms Normal sinus rhythm Normal ECG Confirmed by STEVEN TORRES, KATI ([id number]), editor news JULIANA COHEN ([id number]) on 01/08/2024 10:33:34 AM Referred By: Confirmed By:OSCAR HARRIS MD
--- NOTE | 2024-01-04 16:53 | CT_ITS ---
We are attempting to reach an attending provider to discuss findings. An addendum with communication details will be sent when the communication is complete. INDICATION: Neuro deficit, acute, stroke suspected EXAMINATION: CT BRAIN - CT Head Stroke Protocol W/O Contrast Injection TECHNIQUE: Multiple axial images were obtained of the head without intravenous contrast. A radiation dose optimization technique was used for this scan. IV Contrast dosage and agent: None. COMPARISON: FINDINGS: BRAIN PARENCHYMA: No intra- or extra-axial hemorrhage. No evidence of acute infarct. No intracranial mass or mass effect. Mild bilateral periventricular white matter microangiopathic ischemic changes. Posterior fossa structures are unremarkable. CSF SPACES: Appropriate for age. No hydrocephalus. Basal cisterns are patent. CALVARIUM, SKULL BASE, PARANASAL SINUSES AND MASTOID AIR CELLS: Clear. No discrete lytic or blastic abnormalities. ORBITS: Both globes, extraocular muscles, optic nerves and retrobulbar fat appear unremarkable. CT/STROKE Brain/Head without Cont IMPRESSION: No acute intracranial pathology. Age-related changes. Electronically Signed: Ludin Ware DO at 17:11 EDT Reading Location ID and State: [facility] / [place] Tel [phone], Service support ,
--- NOTE | 2024-01-04 16:53 | NURSING ---
STROKE ALERT CALLED
--- NOTE | 2024-01-04 16:57 | CT_ITS ---
We are attempting to reach an attending provider to discuss findings. An addendum with communication details will be sent when the communication is complete. INDICATION: cva EXAMINATION: CTA HEAD, AND CTA NECK TECHNIQUE: Routine carotid CT angiogram protocol was performed without and with IV contrast. In addition, images were obtained of the [place]. NASCET criteria using the distal ICAs for comparison were used for evaluation of stenoses. 3D reconstructions were reviewed. A radiation dose optimization technique was used for this scan. IV Contrast dosage and agent: COMPARISON: FINDINGS: --CTA NECK: AORTIC ARCH AND BRANCHES: Mild atherosclerotic calcifications of the aortic arch and the visualized great vessels. Mild left subclavian stenosis, up to 50%. RIGHT CCA: No occlusion, significant stenosis or dissection. RIGHT CAROTID BULB: Atherosclerotic calcifications with less than 50% luminal stenosis. RIGHT ICA: Atherosclerotic calcifications at the proximal segment with less than 50% luminal stenosis. Mildly calcified cavernous segment. LEFT CCA: No occlusion, significant stenosis or dissection. LEFT CAROTID BULB: Atherosclerotic calcifications with less than 50% luminal stenosis. LEFT ICA: Atherosclerotic calcifications at the proximal segment with less than 50% luminal stenosis. Mildly calcified cavernous segment. RIGHT VERTEBRAL ARTERY: No occlusion, significant stenosis or dissection. LEFT VERTEBRAL ARTERY: No occlusion, significant stenosis or dissection. NECK SOFT TISSUES: Unremarkable. --CTA HEAD: --Anterior circulation: ICAs: No significant stenosis at the intracranial/visualized segments. ACAs: No significant stenosis at the visualized segments. ACOM: Present. MCAs: No significant stenosis at the visualized segments. --Posterior circulation: PCOMs: Nonvisualization bilaterally. cleaner housekeeping: Hypoplastic right posterior cerebral artery with limited visualization similar to previous study. BASILAR ARTERY: No significant stenosis. VERTEBRAL ARTERIES: No significant stenosis at the intradural/visualized segments. No evidence of intracranial aneurysm or vascular malformation. CT/STROKE CTA Head AND Neck W/Con IMPRESSION: Status post right calcifications at the carotid bulbs and proximal internal carotid arteries with less than 50% luminal stenosis. No significant interval changes of the intracranial major arteries. Electronically Signed: Ludin Ware DO at 18:25 EDT Reading Location ID and State: [id number] / [place] Tel [phone], Service support ,
[2024-01-04 17:16] LABS: Absolute Neutrophil Count 3.4 X10^3/uL (2.0-7.7); Basophil# 0.01 X10^3/uL; Basophil% 0.2 % (0-1); Eosinophil# 0.03 X10^3/uL; Eosinophils% 0.6 % (0-5); Hemoglobin 12.5 g/dL (12.0-15.0); Lymphocyte % 25.3 % (19-41); Mean Corp Hgb Conc 34.7 g/dL (32-36); Mean Corpuscular Volume 86.3 fL (81-99); Mean Platelet Vol. 8.3 fl (6.2-12.0); Monocyte# 0.33 X10^3/uL; Monocyte% 6.4 % (0-10); NRBC Flagged by Analyzer 0 % (0-5); Neutrophil # 3.44 X10^3/uL (2.7-7.7); Neutrophil % 67.1 % (47-70); Platelet Count 215 K/mm3 (150-450); RBC Distribution Width CV 11.5 % (11.6-14.6); RBC Distribution Width SD 36.3 fl (35.1-43.9); Red Blood Count 4.17 M/mm3 (4.2-5.4); White Blood Count 5.1 K/mm3 (4.4-11.0)
--- NOTE | 2024-01-04 17:30 | RAD_ITS ---
INDICATION: Neuro deficit, acute, stroke suspected EXAMINATION/TECHNIQUE: X-RAY - XR Chest 1 View COMPARISON: FINDINGS: LINES/DEVICES: None. LUNGS: Mild left basilar infiltration/atelectasis. No pneumothorax. MEDIASTINUM AND CARDIOVASCULAR STRUCTURES: Cardiac silhouette not enlarged. Calcified aortic arch. Central airways and mediastinal contour are unremarkable. BONES AND SOFT TISSUES: Old left fractures. RAD/Chest 1 View IMPRESSION: Mild left basilar infiltration/atelectasis. Electronically Signed: Ludin Ware DO at 17:49 EDT ,
[2024-01-04 17:33] LABS: Anion Gap 5 (5-15); BUN 11 mg/dL (7-18); BUN/Creat Ratio 15.4 RATIO (10-20); Calcium,Total 7.9 mg/dL (8.5-10.1); Chloride 106 mmol/L (98-107); Creatinine, Serum 0.71 mg/dL (0.55-1.02); EST Glomerular Filtration Rate 84 mL/min (>60); Est Glom Filt Rate - Afr Amer 102 mL/min (>60); Estimated Creatinine Clearance 47.17 ml/min; Glucose 101 mg/dL (74-106); Potassium 3.6 mmol/L (3.5-5.1); Sodium Level 138 mmol/L (136-145); Troponin-I HS 9 pg/mL (3.0-54.0)
[2024-01-04 17:36] LABS: International Normalized Ratio 1.1; Prothrombin Time (Protime)PT. 14.1 SECONDS (11.7-14.9)
[2024-01-04] MEDS: Labetalol (Prefilled) 20 MG/4 ML IV ×2 (17:36→17:46)
[2024-01-04 17:37] LABS: Partial Thromboplast Time 39.5 Seconds (24.1-36.2)
--- NOTE | 2024-01-04 17:52 | ED.RN ---
Delay in thrombolic therapy due to BP parameters. Dr. Mendoza @ bedside to address BP. Labetalol 10mg given, and another given. Neurologist instructions to hold off on TNK until BP stable.
[2024-01-04] MEDS: Nicardipine HCl-0.9% Sod Chlor 20 MG/200 ML IV.SOLN 50 MG CONT INF (17:59)
[2024-01-04 18:08] LABS: Bedside Glucose 102 mg/dL (74-106)
[2024-01-04] MEDS: TENECTEPLASE 1958.4 MG IV (18:08)
[2024-01-04] MEDS: 0.9% Saline Lock 10 ML Syringe IV ×2 (18:08→18:09)
--- NOTE | 2024-01-04 18:12 | ED.RN ---
Mikala to give TNK per Dr. Mendoza, verified with Candie DARNELL. Pt BP stabilized with Fran palafox.
[2024-01-04] MEDS: 0.9% Normal Saline (1000mL) 1,000 ML 100 ML IV ×2 (18:15→22:51)
--- NOTE | 2024-01-04 20:28 | HP.PCM.HOS_ITS ---
HPI - General General Date of Admission: 01/04/24 Date of Service: 01/04/24 Chief Complaint: Headache, concern for expressive aphasia HPI Narrative MANDA AKBAR, is a 78 F who presented to [facility] ED on 01/04/2024 with worsening headache and concern for expressive aphasia. In the ED, staff noted that she seemed to have expressive aphasia and there was concern for possible stroke. Stroke alert was called at that time. Initial CT imaging was negative for any acute pathology. Per [facility] teleneurology, she had conflicti ng results on her NIH scale score but overall score approximately 5 (minor paralysis, drift, mild to moderate sensory loss, mild to moderate aphasia, mild to moderate dysarthria). Given her elevated NIH score, teleneurology offered patient TNK. Initially her blood pressure was elevated and she was not a candidate for TNK. However, she was given 2 doses of IV labetalol and put on a Cardene drip with improvement in her blood pressure. She was then given TNK in the ED and admitted to the ICU for further management. I saw patient at the bedside in the ICU shortly after she arrived over from the ED. At that time, she was sitting up in bed fairly comfortably, in no acute distress. She reported a continued headache that was slightly improved from previous. She stated her expressive aphasia was slightly better from previous. She did continue to have a cough with congestion, which she noted has been present for the last week or so. She continued to deny any upper or lower extremity weakness or sensory changes. She denies any fevers or chills. Denies any chest pain, shortness of breath, abdominal pain or discomfort. Patient lives at home and generally has a fairly good functional status. No other acute concerns at this time. [facility] Medical History (Updated 01/05/24 @ 04:[address] Gentry Thomson, ) Abdominal bloating Angina pectoris Aortic insufficiency Aortic valve disease Atherosclerotic heart disease of [place] coronary artery without angina pectoris Atrial fibrillation Bilateral carotid artery stenosis C. 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 Lung nodule, multiple Migraines Non-smoker Nonspecific abnormal serum enzyme levels Osteoarthritis Palpitations Peptic ulcer disease Presence of stent in coronary artery (~04/19/21) Seasonal allergies Segmental colitis associated with diverticulosis Thyroid dysfunction TIA (transient ischemic attack) Ventricular hypertrophy Vision problem Home Medications carvedilol 6.25 mg tablet (Coreg) 6.25 mg PO BID blood pressure #60 tabs 10/16/23 [Rx Last Taken 01/04/24] colestipol 1 gram tablet (Colestid) 1 g PO BID cholesterol 10/16/23 [History Last Taken 01/04/24] donepezil 5 mg tablet 5 mg PO DAILY memory 10/16/23 [History Last Taken 01/04/24] atorvastatin 40 mg tablet 40 mg PO QHS cholesterol 11/13/23 [History Last Taken 01/03/24] famotidine 20 mg tablet 20 mg PO DAILY reflux 11/13/23 [History Last Taken 01/04/24] aspirin 81 mg tablet,delayed release (Adult Low Dose Aspirin) 81 mg PO DAILY 11/29/23 [History Last Taken 01/04/24] levothyroxine 100 mcg tablet 88 mcg PO DAILY thyroid 11/29/23 [History Last Taken 01/04/24] lisinopril 20 mg tablet 20 mg PO BID blood pressure #60 tabs 11/29/23 [Rx Last Taken 01/04/24] meloxicam 15 mg tablet 15 mg PO DAILY 01/04/24 [History Last Taken 01/04/24] trazodone 50 mg tablet 100 mg PO QHS PRN insomnia 01/04/24 [History Last Taken 01/03/24] Allergy/AdvReac Type Severity Reaction Status Date / Time albuterol Allergy Intermediate GI upset Verified 01/04/24 15:03 cyclobenzaprine Allergy Intermediate mental Verified 01/04/24 15:03 [From Flexeril] status change hydrocodone [From Vicodin] Allergy Intermediate muscle Verified 01/04/24 15:03 twitching oxycodone Allergy Intermediate Vomiting Verified 01/04/24 15:03 amoxicillin Allergy Mild Swelling Verified 01/04/24 15:03 clindamycin Allergy Mild Swelling Verified 01/04/24 15:03 diatrizoate meglumine Allergy Mild Itching Verified 01/04/24 15:03 Tetanus Vaccines and Toxoid Allergy Mild Hives Verified 01/04/24 15:03 codeine AdvReac Intermediate Nausea & Verified 01/04/24 15:03 Vomiting benzonatate AdvReac Mild Vomiting Verified 01/04/24 15:03 [From Tessalon Perles] hydrochlorothiazide AdvReac Mild intolerance Verified 01/04/24 15:03 [From Dyazide] triamterene [From Dyazide] AdvReac Mild intolerance Verified 01/04/24 15:03 erythromycin base AdvReac Nausea Verified 01/04/24 15:03 Family History Mother , Age 76 heart attack Myocardial infarction Heart disease Cardiomyopathy Hypertension Osteoporosis Father , Heart Disease Age 86 Heart disease Parkinson disease CVA (cerebral vascular accident) Hypertension Unknown Thyroid disorder Stomach ulcer Surgical History History of appendectomy History of colonoscopy (~08/2020) History of coronary artery stent placement History of esophagogastroduodenoscopy (EGD) (~08/2020) History of hysterectomy History of thyroidectomy Presence of coronary angioplasty implant and graft (~09/01/15) Social History household members: spouse Smoking Status: Never smoker alcohol intake: current alcohol intake frequency: holidays/special occasions only Alcohol type: wine substance use type: does not use diet: other caffeine: Yes Type: coffee Number of servings: 3 what type of physical activity do you participate in: walking frequency: 3-4 times per week seatbelt use: always do you feel safe at home: Yes ROS Constitutional Constitutional: Denies chills, fatigue, fever(s) or weakness Eyes Eyes: Denies change in vision ENT HEENT: Reports headache(s), nasal congestion and sinus pressure; Denies dy sphagia Cardiovascular Cardiovascular: Denies chest pain, edema or lightheadedness Respiratory/Chest Respiratory/Chest: Reports cough; Denies productive cough, shortness of breath at rest or wheezing Gastrointestinal Gastrointestinal: Denies abdominal pain, constipation, diarrhea, nausea or vomiting Genitourinary Genitourinary: Denies dysuria Neurologic Neurologic: Reports abnormal speech and headache(s); Denies confusion, disequilibrium, dizziness, focal weakness, numbness or paresthesias Psychiatric Psychiatric: Reports anxiety Vital Signs Vital Signs Vital Signs: 01/04/24 15:00 01/04/24 17:00 01/04/24 17:09 Temperature 96 F L Temperature Source Temporal Pulse Rate 91 84 84 Respiratory Rate 16 16 20 H Blood Pressure 157/104 H 187/67 H 187/67 H Blood Pressure Mean 121 107 107 Blood Pressure Source Blood Pressure Position Blood Pressure Location Pulse Ox 97 95 96 Oxygen Delivery Method Room Air Room Air Room Air 01/04/24 17:11 01/04/24 17:14 01/04/24 17:30 Temperature Temperature Source Pulse Rate 81 70 Respiratory Rate 16 17 Blood Pressure 211/90 H Blood Pressure Mean 130 Blood Pressure Source Blood Pressure Position Blood Pressure Location Pulse Ox 95 97 Oxygen Delivery Method Room Air Room Air Room Air 01/04/24 17:59 01/04/24 17:46 01/04/24 18:00 Temperature Temperature Source Pulse Rate 64 72 76 Respiratory Rate 18 19 H 17 Blood Pressure 203/74 H 208/91 H 172/68 H Blood Pressure Mean 117 130 102 Blood Pressure Source Monitor Blood Pressure Position Blood Pressure Location Pulse Ox 95 95 97 Oxygen Delivery Method Room Air Room Air Room Air 01/04/24 18:08 01/04/24 18:10 01/04/24 18:16 Temperature 97.6 F L 98.6 F Temperature Source Temporal Oral Pulse Rate 73 78 Respiratory Rate 17 12 Blood Pressure 172/65 H 172/68 H 140/62 H Blood Pressure Mean 102 88 Blood Pressure Source Monitor Monitor Blood Pressure Position Semi-Fowlers Blood Pressure Location Right Arm Pulse Ox 97 97 Oxygen Delivery Method Room Air Room Air 01/04/24 18:31 01/04/24 18:33 01/04/24 18:46 Temperature 98.4 F 98 F Temperature Source Oral Oral Pulse Rate 77 75 70 Respiratory Rate 15 14 12 Blood Pressure 116/47 L 116/47 L 133/49 H Blood Pressure Mean 70 70 77 Blood Pressure Source Monitor Monitor Blood Pressure Position Semi-Fowlers Semi-Fowlers Blood Pressure Location Right Arm Right Arm Pulse Ox 94 94 97 Oxygen Delivery Method Room Air Room Air Room Air 01/04/24 19:01 01/04/24 19:16 01/04/24 19:26 Temperature 98.6 F 98.6 F 98.4 F Temperature Source Oral Oral Pulse Rate 70 76 68 Respiratory Rate 15 16 16 Blood Pressure 139/53 H 142/62 H 143/76 H Blood Pressure Mean 81 88 98 Blood Pressure Source Monitor Monitor Blood Pressure Position Semi-Fowlers Semi-Fowlers Blood Pressure Location Left Arm Right Arm Pulse Ox 97 96 95 Oxygen Delivery Method Room Air Room Air 01/04/24 19:31 01/04/24 20:01 Temperature 98.4 F 98.3 F Temperature Source Oral Oral Pulse Rate 71 80 Respiratory Rate 15 16 Blood Pressure 141/68 H 150/67 H Blood Pressure Mean 92 94 Blood Pressure Source Manual Monitor Blood Pressure Position Semi-Fowlers Semi-Fowlers Blood Pressure Location Left Arm Right Arm Pulse Ox 97 99 Oxygen Delivery Method Room Air Room Air Weight Weight: 54.2 kg Body Mass Index (BMI) 21.2 Physical Exam Const alert, oriented x3 and average body habitus Constitutional Narrative: Elderly female, mild to moderately anxious appearing, otherwise sitting up fairly comfortably in bed, conversing normally, in no acute distress. General Appearance: cooperative and comfortable HEENT normocephalic, head/scalp atraumatic, hearing grossly normal bilaterally and nasal mucous membranes and turbinates normal Eyes PERRL, EOMs intact bilaterally and conjunctivae normal Neck full ROM Chest inspection of chest normal Resp normal respiratory effort, normal air movement, no use of accessory muscles and clear to auscultation bilaterally Cardio regular rate, regular rhythm, no murmurs and peripheral pulses 2+ throughout GI normal to inspection, nondistended, normoactive bowel sounds, soft to palpation, non-tender and non-distended Back/Spine normal ROM Extremity normal to inspection, full ROM and no pedal edema Skin no rashes or lesions noted Neuro moves all extremities and no focal motor deficits Neuro Narrative: Mild intermittent difficulty with word finding. Psych Mood & Affect: anxious Results Lab / Micro Data 01/04/24 17:10 01/04/24 17:10 Labs: Laboratory Results - last 24 hr 01/04/24 17:07: POC Glucose 102 01/04/24 17:10: WBC 5.1, RBC 4.17 L, Hgb 12.5, Hct 36.0 L, MCV 86.3, MCH 30.0, MCHC 34.7, RDW Std Deviation 36.3, RDW Coeff of Jase 11.5 L, Plt Count 215, MPV 8.3, Immature Gran % (Auto) 0.400, Neut % (Auto) 67.1, Lymph % (Auto) 25.3, [place] % (Auto) 6.4, Eos % (Auto) 0.6, Baso % (Auto) 0.2, Absolute Neuts (auto) 3.4, Absolute Lymphs (auto) 1.30, Nucleated RBC % 0, PT 14.1, INR 1.1, APTT 39.5 H, Sodium 138, Potassium 3.6, Chloride 106, Carbon Dioxide 27.0, Anion Gap 5, BUN 11, Creatinine 0.71, Estim Creat Clear Calc 47.17, Est GFR (MDRD) Af Amer 102, Est GFR (MDRD) Non-Af 84, BUN/Creatinine Ratio 15.4, Glucose 101, Calcium 7.9 L, Troponin I High Sens 9 Imaging Radiology Impression Brain CT 01/04/24 16:53 IMPRESSION: No acute intracranial pathology. Age-related changes. Electronically Signed: Ludin Ware DO at 17:11 EDT Reading Location ID and State: [facility] / [place] Tel [phone], Service support , ADDENDUM: 01/04/24 1720 IMPRESSION: No acute intracranial pathology. Age-related changes. N.B. : The above Results were Read Back by Ludin Ware DO to Iazbella Mendoza MD, and understanding confirmed on 01/04/2024 17:13:56 (ET). Electronically Signed: Ludin Ware DO at 17:11 EDT , ADDENDUM: 01/04/24 1737 IMPRESSION: No acute intracranial pathology. Age-related changes. N.B. : The above Results were Read Back by Ludin Ware DO to Izabella Mendoza MD, and understanding confirmed on 01/04/2024 17:30:25 (ET). Electronically Signed: Ludin Ware DO at 17:11 EDT , Head/Neck CTA 01/04/24 16:57 IMPRESSION: Status post right calcifications at the carotid bulbs and proximal internal carotid arteries with less than 50% luminal stenosis. No significant interval changes of the intracranial major arteries. Electronically Signed: Ludin Ware DO at 18:25 EDT , ADDENDUM: 01/04/24 1832 IMPRESSION: Status post right calcifications at the carotid bulbs and proximal internal carotid arteries with less than 50% luminal stenosis. No significant interval changes of the intracranial major arteries. N.B. : The above Results were Read Back by Ludin Ware DO to Izabella Mendoza MD, and understanding confirmed on 01/04/2024 18:25:52 (ET). Electronically Signed: Ludin Ware DO at 18:25 EDT , Chest X-Ray 01/04/24 17:30 IMPRESSION: Mild left basilar infiltration/atelectasis. Electronically Signed: Ludin Ware DO at 17:49 EDT , Assessment & Plan Assessment/Plan (1) Headache: (2) Aphasia: (3) URI (upper respiratory infection): PLAN: Plan Patient is a 78-year-old female who presented to [facility] ED on 01/04/2024 with worsening headache and concern for expressive aphasia. 1. Headache with concern for expressive aphasia, concern for CVA s/p TNK administration ? Admit under inpatient status to ICU. Teleneurology following. Bicycle Repair Technician consulted. Orders placed per CVA with TNK administration order set. Strict bedrest for 24 hours. MRI brain ordered to be done after 24 hours. Blood pressures initially high but now improving, continued home antihypertensives w ith IV labetalol as needed to maintain SBP less than 180 and DBP less than 100. Tylenol as needed for headaches. 2. Mild URI symptoms ? Chest x-ray on admit nonacute. Patient with elevated BPs as noted above, otherwise afebrile and hemodynamically stable. Very mild cough noted during encounter, suspect mild viral URI, low concern for bacterial infection. Monitor. 3. Recent admission for gait stability/truncal ataxia ? Hospitalized at [facility] from 11/12-11/15/2023. See discharge summary from 11/14 for further details. Fairly extensive labs and imaging workup completed at that time, showed primarily chronic changes, no acute pathology. Plan was to follow- up with Dr. Hayes with Neurology in [place] post-hospitalization. Per patient, she had not been able to get into see him prior to this admission. Chronic medical conditions: ? CAD/HPL/HTN/carotid artery disease: Stable. Previous PCI back in 2014. Echo during hospitalization in November showed EF 65%, stage I diastolic dysfunction suggestive of mild HFpEF, no PFO/ASD, no significant valvular disease. Continue home aspirin, statin, colestipol, Coreg and lisinopril. ? GERD/history of PUD: Continue home famotidine. ? Hypothyroidism: Recent TSH and free T4 normal in November. Continue home Synthroid. ? Memory impairment: Stable. Continue home donepezil. ? Insomnia: Continue home trazodone as needed. DVT prophylaxis: SCDs CODE STATUS: Full code, verified Expected disposition: Home, 2 to 3 days Total clinical time spent by myself addressing the patient's medical issues, reviewing all the data, and collaborating with patient's care team: 55 minutes. Charges/Coding Visit Charges Inpatient E&M: 72543 Init Hosp L2
--- NOTE | 2024-01-04 22:10 | MRI_ITS ---
STUDY: MRI BRAIN WITHOUT CONTRAST REASON FOR EXAM: Female, 78 years old. CVA -- MRI 24 hours after IV thrombolytic administration TECHNIQUE: Standardized multiplanar fat and water weighted pulse sequences were obtained through the brain without IV contrast COMPARISON: CT head and CTA head and neck January 04 2024 HEMISPHERES, CEREBELLUM AND BRAINSTEM: Normal midline developmental anatomy. No Chiari malformation. Unremarkable sella. Cerebellar pontine angles are clear. No evidence of intracranial space occupying mass or mass effect. Moderate periventricular and subcortical T2 hyperintense chronic small vessel white matter ischemic change. No diffusion. No evidence of prior hemorrhage. CSF SPACES: Moderate global cerebral volume loss.. No hydrocephalus. Basal cisterns are patent. VESSELS: 1. There are normal flow voids noted in the great vessels at the skull base ORBITS AND PARANASAL SINUSES: 1. Both globes, extraocular muscles, optic nerves and retrobulbar fat appear unremarkable. 2. Scattered layering paranasal sinus mucoperiosteal thickening. Mild leftward congenital osseous nasal septal deviation. Right felisa bullosa. Minimal layering left mastoid air cell fluid. BONY ELEMENTS: Bony elements of the cranial vault, facial skeleton and skull base have normal appearance. SCALP AND SOFT TISSUES: Normal appearance of the soft tissues of the scalp and the visualized face MRI/Brain without Contrast IMPRESSION: 1. No intracranial mass, hemorrhage, or evidence of acute territorial infarct. 2. Scattered acute layering sinus disease. 3. Moderate senescent changes Electronically Signed: Federico Mcqueen MD at 21:21 EDT ,
[2024-01-04] MEDS: Carvedilol 6.25 MG Tablet PO (22:45)
[2024-01-04] MEDS: Atorvastatin Calcium 40 MG Tablet PO (22:45)
[2024-01-04] MEDS: Colestipol 1 GM TABLET PO (22:45)
[2024-01-04] MEDS: Lisinopril 20 MG Tablet PO (22:45)
--- NOTE | 2024-01-04 23:01 | NURSING ---
Pt arrived to unit from ER. EMAR shows 0.9% NS scanned and running @ 100cc/hr. Pt arrived w/ no fluids at this time. Infused previously scanned and missing NS bag off NOV and started/ scanned new bag.
[2024-01-04] MEDS: Acetaminophen 325 MG Tablet 650 MG PO (23:05)
[2024-01-05] VITALS (33 sets, daily range): BP systolic 124–197; BP diastolic 46–90; PULSE 53–86; RESP 12–19; TEMP 36.1–37; O2SAT 94–100; BMI 23.1
[2024-01-05 01:06] LABS: Cholesterol 128 mg/dL (200); High Density Lipoprotein 51 mg/dL; Thyroid Stim Hormone (TSH) 2.96 uIU/mL (0.358-3.74); Triglycerides 104 mg/dL; Very Low Density Lipoprotein 21 mg/dL (5-40)
[2024-01-05 03:53] LABS: Hematocrit 35.8 % (37-47); Hemoglobin 12.4 g/dL (12.0-15.0); Mean Corp Hgb Conc 34.6 g/dL (32-36); Mean Corpuscular Hgb 29.8 pg (27.0-32.0); Mean Corpuscular Volume 86.1 fL (81-99); Mean Platelet Vol. 8.4 fl (6.2-12.0); Platelet Count 234 K/mm3 (150-450); RBC Distribution Width CV 11.4 % (11.6-14.6); RBC Distribution Width SD 35.7 fl (35.1-43.9); Red Blood Count 4.16 M/mm3 (4.2-5.4); White Blood Count 5.9 K/mm3 (4.4-11.0)
[2024-01-05 04:11] LABS: Anion Gap 6 (5-15); BUN 11 mg/dL (7-18); BUN/Creat Ratio 16.4 RATIO (10-20); Calcium,Total 8.1 mg/dL (8.5-10.1); Chloride 110 mmol/L (98-107); Creatinine, Serum 0.67 mg/dL (0.55-1.02); EST Glomerular Filtration Rate 90 mL/min (>60); Est Glom Filt Rate - Afr Amer 109 mL/min (>60); Estimated Creatinine Clearance 47.17 ml/min; Glucose 97 mg/dL (74-106); Potassium 3.2 mmol/L (3.5-5.1); Sodium Level 143 mmol/L (136-145)
[2024-01-05 05:20] LABS: Magnesium 1.9 mg/dL (1.6-2.6); Phosphorus 2.9 mg/dL (2.5-4.9)
[2024-01-05] MEDS: 0.9% Saline Lock 10 ML Syringe IV ×4 (05:39→23:59)
[2024-01-05] MEDS: Potassium Chloride Oral Tablet 20 MEQ 40 MEQ PO (05:40)
[2024-01-05] MEDS: Levothyroxine 88 MCG Tablet PO (05:40)
--- NOTE | 2024-01-05 07:05 | PN.HOSP_ITS ---
Reason for Visit Reason for Visit: Headache/expressive aphasia Subjective Subjective Mrs. Aaron is a 78-year-old white female who presented to the emergency d epartment at [facility] on 01/04/2024 with headache that has been persistent for about 3 to 4 days. She does have history of migraines previously. She complained of light sensitivity and nausea associated with this as well. She reported that her head felt like it was in a vice. She was given some medication for headache and shortly thereafter nursing asked the ER physician to reevaluate her as they felt she was having some expressive aphasia which was new since admission. When the ER physician arrived at the bedside she was sitting upright in bed but having difficulty expressing what she wanted to say. Headache was stable. There is no facial droop and sensation on the face was normal. She had no upper extremity drift but baseline tremor was noted. She was able to hold both legs off the bed for, 3 however they slowly drifted back to the bed and she reported normal sensation in her lower extremities. A stroke alert was initiated and she was taken for CT of the brain as well as CTA of the head and neck. CT of the brain showed no acute intercranial pathology and senescent changes that were stable. CTA of the head and neck showed right calcification of the carotid bulb and proximal internal carotid artery that was less than 50% stenosis and less than 50% stenosis in the left ICA as well with mild calcified cavernous segment bilaterally. Vertebrals were unremarkable. Chest x-ray was fairly unremarkable except for some mild left basilar atelectasis. EKG was sinus rhythm with no ST-T wave changes concerning for ischemia and normal intervals. Initial vital signs show temperature of 96, heart rate 91, respiratory 16, blood pressure was 157/104, and pulse ox was 97% on room air. Her CBC was essentially unremarkable. Her coags were normal. Her chemistry panel was unremarkable. Her hemoglobin A1c was 5.0. Her cholesterol is well-controlled with a total cholesterol 128/HDL 51/LDL 56 and triglycerides 104. She had a recent echocardiogram here in November at which time a bubble study was done. Her EF was 65% at that time and she had mild aortic stenosis with a negative bubble study. Stroke neurologist from [facility] was consulted and did offer tenecteplase as her NIH was reportedly 5. Initially her blood pressure was elevated and a Cardene drip was started however this dropped her blood pressure to 116 so the Cardene drip was discontinued and she was maintained with as needed medications for blood pressure. Currently complaining of mild headache that she rates at about 4 out of 10. States it is much better than yesterday. Migraines are documented in her history however she denies migraines. She states she has not had a headache that bad in a long time. She is also complaining of some congestion and mild cough. Neurological exam is better. And current NIH is 0-1 but fluctuating. And the patient talks repetitively about retiring and how much stress work is. Objective Data Objective Data Vital Signs: Vital Signs Temp Pulse Resp BP Pulse Ox O2 Del Method 97.7 F L 64 15 178/73 H 94 Room Air 01/05/24 05:30 01/05/24 06:31 01/05/24 06:31 01/05/24 06:31 01/05/24 06:31 01/05/24 06:31 Oxygen Delivery Method Room Air Weight: 59.1 kg Body Mass Index (BMI) 23.1 Intake & Output: Intake and Output for Last 24 Hours 01/03/24 01/04/24 01/05/24 23:59 23:59 23:59 Intake Total 905.00 / 905.00 Output Total 525 / 525 Balance 905.00 / 555.00 -525 / -525 Lab / Micro Data 01/05/24 03:40 01/05/24 03:40 Labs: Laboratory Results - last 24 hr 01/04/24 17:07: POC Glucose 102 01/04/24 17:10: WBC 5.1, RBC 4.17 L, Hgb 12.5, Hct 36.0 L, MCV 86.3, MCH 30.0, MCHC 34.7, RDW Std Deviation 36.3, RDW Coeff of Jase 11.5 L, Plt Count 215, MPV 8.3, Immature Gran % (Auto) 0.400, Neut % (Auto) 67.1, Lymph % (Auto) 25.3, [place] % (Auto) 6.4, Eos % (Auto) 0.6, Baso % (Auto) 0.2, Absolute Neuts (auto) 3.4, Absolute Lymphs (auto) 1.30, Nucleated RBC % 0, PT 14.1, INR 1.1, APTT 39.5 H, Sodium 138, Potassium 3.6, Chloride 106, Carbon Dioxide 27.0, Anion Gap 5, BUN 11, Creatinine 0.71, Estim Creat Clear Calc 47.17, Est GFR (MDRD) Af Amer 102, Est GFR (MDRD) Non-Af 84, BUN/Creatinine Ratio 15.4, Glucose 101, Calcium 7.9 L, Troponin I High Sens 9 01/05/24 00:18: Hemoglobin A1c 5.0, Triglycerides 104, Cholesterol 128, LDL Cholesterol 56, VLDL Cholesterol 21, HDL Cholesterol 51, TSH 2.96 01/05/24 03:40: WBC 5.9, RBC 4.16 L, Hgb 12.4, Hct 35.8 L, MCV 86.1, MCH 29.8, MCHC 34.6, RDW Std Deviation 35.7, RDW Coeff of Jase 11.4 L, Plt Count 234, MPV 8.4, Sodium 143, Potassium 3.2 L, Chloride 110 H, Carbon Dioxide 27.0, Anion Gap 6, BUN 11, Creatinine 0.67, Estim Creat Clear Calc 47.17, Est GFR (MDRD) Af Amer 109, Est GFR (MDRD) Non-Af 90, BUN/Creatinine Ratio 16.4, Glucose 97, Calcium 8.1 L, Phosphorus 2.9, Magnesium 1.9 Radiography Diagnostic Testing: Radiology Impression Brain CT 01/04/24 16:53 IMPRESSION: No acute intracranial pathology. Age-related changes. Electronically Signed: Ludin Ware DO at 17:11 EDT Reading Location ID and State: [facility] / [place] Tel [phone], Service support , ADDENDUM: 01/04/24 1720 IMPRESSION: No acute intracranial pathology. Age-related changes. N.B. : The above Results were Read Back by Ludin Ware DO to Izabella Mendoza MD, and understanding confirmed on 01/04/2024 17:13:56 (ET). Electronically Signed: Ludin Ware DO at 17:11 EDT , ADDENDUM: 01/04/24 1737 IMPRESSION: No acute intracranial pathology. Age-related changes. N.B. : The above Results were Read Back by Ludin Ware DO to Izabella Mendoza MD, and understanding confirmed on 01/04/2024 17:30:25 (ET). Electronically Signed: Ludin Ware DO at 17:11 EDT , Head/Neck CTA 01/04/24 16:57 IMPRESSION: Status post right calcifications at the carotid bulbs and proximal internal carotid arteries with less than 50% luminal stenosis. No significant interval changes of the intracranial major arteries. Electronically Signed: Ludin Ware DO at 18:25 EDT , ADDENDUM: 01/04/24 1832 IMPRESSION: Status post right calcifications at the carotid bulbs and proximal internal carotid arteries with less than 50% luminal stenosis. No significant interval changes of the intracranial major arteries. N.B. : The above Results were Read Back by Ludin Ware DO to Izabella Mendoza MD, and understanding confirmed on 01/04/2024 18:25:52 (ET). Electronically Signed: Ludin Ware DO at 18:25 EDT , Chest X-Ray 01/04/24 17:30 IMPRESSION: Mild left basilar infiltration/atelectasis. Electronically Signed: Ludin Ware DO at 17:49 EDT , Physical Exam Const alert, oriented x3, no apparent distress, average body habitus and well nourished Constitutional Narrative: Older, white female, sitting up in bed finishing breakfast and watching television, affect is flat but patient appears comfortable, does not appear toxic HEENT head/scalp atraumatic and moist oral mucous membranes HEENT Narrative: Mallampati is 2, no thrush Head and Scalp: normocephalic Resp normal respiratory effort, no retractions, no use of accessory muscles and clear to auscultation bilaterally Auscultation: Negative for rales, rhonchi or wheezes Cardio regular rate, regular rhythm, S1 normal heart sound, S2 normal heart sound, no murmurs, no rub, no gallops and no clicks GI normal to inspection, nondistended, normoactive bowel sounds, soft to palpation and non-tender Extremity no clubbing, cyanosis or edema Extremity Narrative: Pedal pulses and radial pulses are 2+ Neuro oriented x3, moves all extremities and no focal motor deficits Neuro Narrative: Generalized weakness noted with mild tremor but no focal deficits at this time, speech is soft and a little bit shaky Psych Psych Narrative: Affect is flat and mood seems depressed, patient also seems somewhat anxious Assessment & Plan Assessment/Plan (1) URI (upper respiratory infection): (2) Aphasia: (3) Headache: PLAN: Plan Headache/expressive aphasia/focal weakness/focal sensory changes -Initial CT was negative -Per [facility] teleneurology she had some conflicting results on her NIH but finally score was 5 4 Minor paralysis, drift, mild to moderate sensory deficits, and mild to moderate aphasia/mild to moderate dysarthria -TNK was offered and given after blood pressure was controlled -Patient was placed on a Cardene drip but systolic pressure dropped to 116 so it was discontinued -Recent hospitalization here in early November with ataxia--> had extensive workup at that time which was found to be benign -Follows with neurology as an outpatient and sees Dr. Hayes -Continue neurochecks as ordered per stroke protocol -Will have to be done tomorrow as 24 hours after tenecteplase given MR likely not be available -Just had an echo on 11/14/2023 with a negative bubble study--> no reason to repeat at this time -Antihypertensives currently on hold and blood pressure control with PRNs -No aspirin for 24 hours at after tenecteplase--> it appears that it was given between 530 and 6 last evening -MRI tonight 24 hours after tenecteplase given if able if not we will need to check CT and obtain MRI tomorrow morning -Glucose is normal and A1c is 5.0 -Lipid panel shows good control with an LDL of 56 and total cholesterol 128 with triglycerides of 104 and an HDL of 51 -Neurology consultation Cough/congestion -Check COVID/flu/RSV -Check respiratory viral panel -Start Mucinex -Patient with multiple allergies so antitussives are not really available at this time due to her allergies -Will continue to monitor -Continue as needed Tylenol for headache Mild aortic stenosis -Noted on echocardiogram from 11/14/2023 Patient does have a systolic cardiac murmur -Continue outpatient follow-up CAD/HPL/HTN/carotid artery disease/diastolic dysfunction -Previous PCI in 2014 -Home aspirin is on hold -Continue home atorvastatin -Continue home colestipol -Hold home antihypertensives until stroke can be ruled out then reinitiate if negative -PRNs per stroke protocol are available -Patient with bilateral carotid artery stenosis however disease is less than 50% -Outpatient referral to vascular surgery was made however there is no signs of surgical disease at this point GERD/history of peptic ulcer disease -Continue home famotidine Hypothyroidism -Continue home levothyroxine -TSH is within normal limits Memory impairment -Continue home donepezil Chronic low back pain with radicular symptoms -Discussed with patient and there is no acute changes at this time -Hold meloxicam with tenecteplase dosing DVT prophylaxis -SCDs CODE STATUS -Full code Charges/Coding Visit Charges Inpatient E&M: 29421 Subs Hosp L2
[2024-01-05] MEDS: 0.9% Normal Saline (1000mL) 1,000 ML 100 ML IV (08:04)
[2024-01-05] MEDS: Acetaminophen 325 MG Tablet 650 MG PO (08:04)
[2024-01-05] MEDS: Famotidine 20 MG Tablet PO (08:05)
[2024-01-05] MEDS: Donepezil HCl 5 MG Tablet PO (08:05)
[2024-01-05] MEDS: Carvedilol 6.25 MG Tablet PO ×2 (08:08→17:22)
--- NOTE | 2024-01-05 09:53 | CASEMGMT ---
CARIE RAINES Assessment Face to Face with patient for initial transition planning/care coordination assessment. CARIE RAINES introduced self and role at [facility], pt voices understanding. Pt is A&Ox4 and is resting comfortably in bed and is calm. Care providers, pharmacy, and demographics verified. Admitting dx: Suspected CVA S/P TNK Administration LACE Strata: 3 PCP: Smith Orozco Specialists: [facility]. Hayes (Neuro) Preferred Pharmacy: [facility] Insurance: KAYLEN Lee A/B Prescription Benefit: Yes LNOK: Frank Aaron (H) Living Arrangements: Pt lives with her in a single story home with a BM with HR with 2 steps to enter with HR ADLs/IADLs: Ind Transportation: Self, DME: [employer] Cane but does not use often. BP cuff HHC/SNF: Denies history or needs Pt?s goal: Home with the continuation of OP Therapy Plan: Pt states that she is active with OP therapy through [facility] in [place]. Pt states this is for her balance. Pt states that she has an appt on Monday and Monday of next week and does not need a new Rx for this. Pt states that she wishes to DC home once ready and to continue this OP therapy. Pt denies HHC needs. PT eval is still pending d/t TNK administration. CM to follow for safe DC from [facility]. Pete Peña RN, CM
[2024-01-05] MEDS: Ondansetron 4 MG/2 ML Vial IV ×2 (10:07→22:11)
[2024-01-05] MEDS: Colestipol 1 GM TABLET PO ×2 (11:33→22:10)
[2024-01-05] MEDS: SimETHICONE 80 MG Chewable Tablet PO ×2 (11:44→17:23)
[2024-01-05] MEDS: guaiFENesin 1,200 MG Tablet 1200 MG PO ×2 (12:39→22:10)
--- NOTE | 2024-01-05 15:25 | NURSING ---
pt off floor with radiology nurse to MRI
--- NOTE | 2024-01-05 15:27 | CASEMGMT ---
Social Work- SW met with pt to administer PHQ-9. Pt reports that she has had a loss of appetite and energy over the past 5-6 months, which has resulted in weight loss. Pt reports that this loss of appetite is due to intestinal issues not emotional state. 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 Pt states that she has 5 children, all of whom live out of state, but whom she speaks with and face times with regularly. Pt reports that she feels frustrated by her physical decline, but states that she does not feel sad or depressed. Pt reports that her helps cook, clean, and do laundry and she does not feel isolated or alone. Pt has been 45 years. Pt states that she also has wonderful neighbors as well. LISHA Gloria
[2024-01-05] MEDS: Labetalol (Prefilled) 20 MG/4 ML IV ×2 (16:02→16:45)
--- NOTE | 2024-01-05 16:25 | NURSING ---
unable to assess NIH at this time d/t pt down at MRI
--- NOTE | 2024-01-05 16:41 | NURSING ---
pt back from MRI. NIH and vitals completed
[2024-01-05] MEDS: Atorvastatin Calcium 40 MG Tablet PO (22:10)
[2024-01-05] MEDS: MELATONIN 3 MG TABLET PO (22:11)
[2024-01-05] MEDS: Labetalol (Prefilled) 20 MG/4 ML 10 MG IV (23:59)
[2024-01-06] VITALS (17 sets, daily range): BP systolic 141–208; BP diastolic 49–100; PULSE 61–90; RESP 14–21; TEMP 36.2–36.8; O2SAT 94–99; BMI 23.6
--- NOTE | 2024-01-06 05:00 | NURSING ---
0500- campuzano removed, pt tolerated well.
[2024-01-06 05:04] LABS: Hematocrit 37.6 % (37-47); Hemoglobin 12.9 g/dL (12.0-15.0); Mean Corp Hgb Conc 34.3 g/dL (32-36); Mean Corpuscular Hgb 29.5 pg (27.0-32.0); Mean Corpuscular Volume 85.8 fL (81-99); Mean Platelet Vol. 8.3 fl (6.2-12.0); Platelet Count 263 K/mm3 (150-450); RBC Distribution Width CV 11.6 % (11.6-14.6); RBC Distribution Width SD 36.2 fl (35.1-43.9); Red Blood Count 4.38 M/mm3 (4.2-5.4)
[2024-01-06] MEDS: Levothyroxine 88 MCG Tablet PO (05:10)
[2024-01-06 05:17] LABS: Anion Gap 3 (5-15); BUN 6 mg/dL (7-18); BUN/Creat Ratio 7.8 RATIO (10-20); Calcium,Total 8.4 mg/dL (8.5-10.1); Chloride 111 mmol/L (98-107); Creatinine, Serum 0.77 mg/dL (0.55-1.02); EST Glomerular Filtration Rate 77 mL/min (>60); Est Glom Filt Rate - Afr Amer 93 mL/min (>60); Estimated Creatinine Clearance 47.17 ml/min; Glucose 101 mg/dL (74-106); Potassium 3.6 mmol/L (3.5-5.1); Sodium Level 142 mmol/L (136-145)
[2024-01-06] MEDS: Carvedilol 6.25 MG Tablet PO (08:41)
[2024-01-06] MEDS: SimETHICONE 80 MG Chewable Tablet PO (08:42)
[2024-01-06] MEDS: Donepezil HCl 5 MG Tablet PO (08:43)
[2024-01-06] MEDS: Famotidine 20 MG Tablet PO (08:43)
[2024-01-06] MEDS: guaiFENesin 1,200 MG Tablet 1200 MG PO (08:43)
[2024-01-06] MEDS: Ondansetron 4 MG/2 ML Vial IV (09:40)
[2024-01-06] MEDS: 0.9% Saline Lock 10 ML Syringe IV (09:40)
--- NOTE | 2024-01-06 09:58 | CASEMGMT ---
Addendum entered by Brooklynn Mancilla 01/06/24 10:58: Social Work When SW went back to give pt the list for mental health resources, pt spoke further about the medication cost. She states they pay $75 every two weeks for the Embrel. She states she is paying $1200-$1400 per paycheck for insurance, and this is actually the bigger cost. SW spoke w/pt about the possibility of retiring and paying for a managed Medicare, SW encouraged her to look into this. Pt then spoke w/pt about her family. Pt states her is very helpful and devoted. She states has five children, the closest is in [place]. She spoke about her daughter in [place], she and her have considered moving there. She states her daughter has even looked for places for them. Pt does not want to burden her children however. SW gently spoke w/pt about waiting until there is a crisis and asking for help then is even more difficult for the children. SW also spoke w/pt about counseling and trying to get her anxiety more managed. Pt recognizes this to be a concern. Support given to pt. No further social service needs anticipated at this time. SW remains available for additional support as needed. STEVENSON Nelson Original Note: Social Work RN asked SW to check in w/pt again in regard to the medication her is taking, as she states has to work to cover the cost. The medication is Enbrel. SW spoke w/pt again regarding this medication. She states that her will not speak w/physician about trying a different medication. She also states her applied online to get help with the medication and they were denied. She states they have savings and thinks this is why they cannot get help. Pt then went on to say that there is no help through the company that makes the medication. SW gently disagreed w/pt, and provided pt with the information for financial help for the medication. SW explained they can call the phone number, most likely there will be information for the pt and the physician to complete, along w/financial information to be sent, and then can see if the assistant will help w/the cost. SW encouraged pt to follow up on this. SW let her know that it states right on the website that almost everyone qualifies for some help w/the cost. We spoke about pt feeling she needs to work to cover the cost. SW inquired if her expects her to work to cover the medication cost. Pt states no, her tells her all the time to quit. She states he has gone without the medication in the past. SW inquired about safety, any concerns with domestic violence, pt denies any concerns in regard to this. SW asked pt about counseling. Pt states she may be interested but she is not supposed to drive. Pt states she is still driving however as she needs to get to work. SW provided to pt a list of counseling resources, encouraged her to call to see who may offer virtual options. No further social service needs are anticipated at this time. STEVENSON Nelson
--- NOTE | 2024-01-06 11:04 | PN.NEURO_ITS ---
Objective Data Objective Data Vital Signs: Vital Signs Temp Pulse Resp BP Pulse Ox O2 Del Method 97.8 F 89 21 H 159/100 H 95 Room Air 01/06/24 08:00 01/06/24 08:00 01/06/24 08:00 01/06/24 08:00 01/06/24 09:34 01/06/24 09:34 Oxygen Delivery Method Room Air Weight: 60.4 kg Body Mass Index (BMI) 23.6 Intake & Output: Intake and Output for Last 24 Hours 01/04/24 01/05/24 01/06/24 23:59 23:59 23:59 Intake Total 905.00 / 905.00 1650.00 / 1650.00 Output Total 3500 / 3500 600 / 600 Balance 905.00 / 555.00 -1850.00 / -1850.00 -600 / -600 Lab / Micro Data 01/06/24 04:57 01/06/24 04:57 Labs: Laboratory Results - last 24 hr 01/06/24 04:57: WBC 6.0, RBC 4.38, Hgb 12.9, Hct 37.6, MCV 85.8, MCH 29.5, MCHC 34.3, RDW Std Deviation 36.2, RDW Coeff of Jase 11.6, Plt Count 263, MPV 8.3, Sodium 142, Potassium 3.6, Chloride 111 H, Carbon Dioxide 28.0, Anion Gap 3 L, BUN 6 L, Creatinine 0.77, Estim Creat Clear Calc 47.17, Est GFR (MDRD) Af Amer 93, Est GFR (MDRD) Non-Af 77, BUN/Creatinine Ratio 7.8 L, Glucose 101, Calcium 8.4 L Micro: Microbiology 01/05/24 13:08 Mucosa - Nasopharyngeal Coronavirus COVID-19 PCR - Final 01/05/24 13:08 Mucosa - Nasopharyngeal Respiratory Panel (PCR) - Final Radiography Diagnostic Testing: Radiology Impression Brain MRI 01/04/24 22:10 IMPRESSION: 1. No intracranial mass, hemorrhage, or evidence of acute territorial infarct. 2. Scattered acute layering sinus disease. 3. Moderate senescent changes Electronically Signed: Federico Mcqueen MD at 21:21 EDT , Physical Exam Neuro Neuro Narrative: Neurological examination: General: The patient appears nutritionally appropriate, well-groomed, and appe ars comfortable in no acute distress. Mental Status: The patient?s mental status was normal including orientation. Language was intact. She is able to name all objects on stroke cards. Cranial nerves: Visual peterson full, and extra-ocular motion was intact. Face motion and sensation were symmetric.There was no dysarthria. Motor: Normal strength and tone in all four extremities. No pronator drift. Sensation: Intact light touch bilaterally, no extinction. Coordination: Bilateral finger to nose was normal. There was no dysmetria. 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 In ER she was noted to develop trouble speaking (aphasia and dysarthria) with left facial numbness. Telestroke showed NIHSS 5. CT brain was negative. CTA head/neck was negative. IV TNK was recommended at 1720 and subsequently given. She was admitted to ICU. MRI brain DWI 01/03 was negative. She currently still has persistent symptoms, it is a struggle to speak, she notes dysarthria and some word finding difficulties. CORDOBA currently is 4/10. She feels whipped She has a history of chronic migraines, and in the past with her headaches she has had dysarthria and trouble talking, migraines last a few days, in between she is back to normal. She reports her migraines have never been as severe as this episode. She see neurology as outpatient for this. She has chronic dysphagia as well. 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 In ER she was given CORDOBA cocktail. In ER she was noted to develop trouble speaking (aphasia and dysarthria) with left facial numbness. Telestroke showed NIHSS 5. CT brain was negative. CTA head/neck was negative. IV TNK was recommended at 1720 and subsequently given. She was admitted to ICU. MRI brain DWI 01/03 was negative. Neurological examination shows nonfocal exam, NIHSS-0. ASSESSMENT/PLAN: Complicated migraine 1) Stroke has been ruled out with negative MRI brain DWI. No further stroke work-up recommended. 2) Patient s/p IV TNK, Recommend repeat CT brain as part of post TNK protocol, if negative for bleed, can resume her home Asa 81mg. 3) Follow-up with her outpatient neurologist. Please call us with further stroke related questions. Messaged primary physician with recommendations.
--- NOTE | 2024-01-06 11:48 | CT_ITS ---
STUDY: CT BRAIN WITHOUT CONTRAST REASON FOR EXAM: Female, 78 years old. Follow-up stroke RADIATION DOSAGE (If Supplied By Facility): CTDIvol = ( 44.99 ) mGy, DLP = ( 779.24 ) mGycm TECHNIQUE: Transaxial CT imaging of the brain was performed without administration of intravenous contrast material. Individualized dose optimization techniques were used for this CT. COMPARISON: MRI of the brain dated January 05, 2024. Head CT dated January 04, 2024 FINDINGS: Normal soft tissue structures. Normal calvarium. There is mild cerebral atrophy with widening of the extra-axial spaces and ventricular dilatation. There are areas of decreased attenuation within the white matter tracts of the supratentorial brain, consistent with microvascular disease changes. Normal basal ganglia and thalami. Normal brainstem. Normal cerebellum. There is no intracranial hemorrhage. There are no findings of an acute ischemic infarction. Normal visualized paranasal sinuses. CT/Brain/Head without Contrast IMPRESSION: Chronic involutional changes of the brain. Electronically Signed: Bishnu Rinaldi MD at 13:30 EDT ,
--- NOTE | 2024-01-06 14:06 | DS.PCM_ITS ---
Providers Date of Admission: 01/04/24 Date of Discharge: 01/06/24 Primary Care Physician: Dr. Smith Orozco MD Consultations 01/04/24 17:31 Consult: Material Requirements Worker / Pulmonary Medicine Routine Consulting Provider: [facility] Reason for Consult: stroke for thrombolytic administration EMERGENT Consult: No Notified: Yes Date Notified: 01/05/24 Time Notified: 02:19 Method of Notification: Text Comments:: Consult may be done in ED or ICU 01/06/24 09:53 Consult: Tele-Neurology Routine Consulting Provider: [facility] Reason for Consult: stroke s/p TNK EMERGENT Consult: No Notified: Yes Date Notified: 01/06/24 Time Notified: 09:52 Method of Notification: Answering Service Method of Consult:: Telemedicine Nursing Unit Staff Notify [facility] of Tele-Neurology Consult: Yes Reason For Visit: SUSPECTED CVA S/P TNK ADMINISTRATION Diagnosis Discharge Diagnosis (1) URI (upper respiratory infection): Status: Acute Code(s): J06.9 - Acute upper respiratory infection, unspecified (2) Aphasia: Status: Acute Code(s): R47.01 - Aphasia (3) Headache: Status: Acute Code(s): R51.9 - Headache, unspecified Medications at Discharge Home Medications carvedilol 6.25 mg tablet (Coreg) 6.25 mg PO BID blood pressure #60 tabs 10/16/23 colestipol 1 gram tablet (Colestid) 1 g PO BID cholesterol 10/16/23 donepezil 5 mg tablet 5 mg PO DAILY memory 10/16/23 atorvastatin 40 mg tablet 40 mg PO QHS cholesterol 11/13/23 famotidine 20 mg tablet 20 mg PO DAILY reflux 11/13/23 aspirin 81 mg tablet,delayed release (Adult Low Dose Aspirin) 81 mg PO DAILY 11/29/23 levothyroxine 100 mcg tablet 88 mcg PO DAILY thyroid 11/29/23 lisinopril 20 mg tablet 20 mg PO BID blood pressure #60 tabs 11/29/23 meloxicam 15 mg tablet 15 mg PO DAILY 01/04/24 trazodone 50 mg tablet 100 mg PO QHS PRN insomnia 01/04/24 ondansetron 4 mg disintegrating tablet 4 mg PO Q8H PRN nausea and vomiting #10 tabs 01/06/24 Hospital Course Procedures EKG and - (CT head x 2/MRI brain/chest x-ray/CTA head and neck) Summary of Care Provided Minutes Spent on Discharge: 38 Hospital Course: Mrs. Aaron is a 78-year-old white female who presented to the emergency department at [facility] on 01/04/2024 with headache that has been persistent for about 3 to 4 days. She does have history of migraines previously. She complained of light sensitivity and nausea associated with this as well. She reported that her head felt like it was in a vice. She was given some medication for headache and shortly thereafter nursing asked the ER physician to reevaluate her as they felt she was having some expressive aphasia which was new since admission. When the ER physician arrived at the bedside she was sitting upright in bed but having difficulty expressing what she wanted to say. Headache was stable. There is no facial droop and sensation on the face was normal. She had no upper extremity drift but baseline tremor was noted. She was able to hold both legs off the bed for, 3 however they slowly drifted back to the bed and she reported normal sensation in her lower extremities. A stroke alert was initiated and she was taken for CT of the brain as well as CTA of the head and neck. CT of the brain showed no acute intercranial pathology and senescent changes that were stable. CTA of the head and neck showed right calcification of the carotid bulb and proximal internal carotid artery that was less than 50% stenosis and less than 50% stenosis in the left ICA as well with mild calcified cavernous segment bilaterally. Vertebrals were unremarkable. Chest x-ray was fairly unremarkable except for some mild left basilar atelectasis. EKG was sinus rhythm with no ST-T wave changes concerning for ischemia and normal intervals. Initial vital signs show temperature of 96, heart rate 91, respiratory 16, blood pressure was 157/104, and pulse ox was 97% on room air. Her CBC was essentially unremarkable. Her coags were normal. Her chemistry panel was unremarkable. Her hemoglobin A1c was 5.0. Her cholesterol is well-controlled with a total cholesterol 128/HDL 51/LDL 56 and triglycerides 104. She had a recent echocardiogram here in November at which time a bubble study was done. Her EF was 65% at that time and she had mild aortic stenosis with a negative bubble study. Stroke neurologist from [facility] was consulted and did offer tenecteplase as her NIH was reportedly 5. Initially her blood pressure was elevated and a Cardene drip was started however this dropped her blood pressure to 116 so the Cardene drip was discontinued and she was maintained with as needed medications for blood pressure. Her NIH was quite variable throughout her hospital course. There was some suspicion that her neurological symptoms were introduced by the cocktail given for her headache on presentation. 24 hours after her tenecteplase a CT and an MRI were performed. CT was negative for any hemorrhage and MRI was negative for any stroke. She was seen by physical and Occupational Therapy and had no needs at discharge. Neurology reevaluated the patient and is highly suspicious of complicated migraine given stroke rule out with negative MRI and no further workup was recommended. She was instructed to follow-up with her outpatient neurologist as previously scheduled and her primary care physician in the next 2 weeks. Patient did complain of some nausea that she has had ongoing for about a month now and she had multiple other somatic complaints. She is very anxious about her home situation and an overall life in general and I suspect she has some somatic issues related to her depression and anxiety. I have asked her to follow-up for this as well. She was given resources by case management for counseling services. She was discharged home in stable condition on 01/06/2024. I did give her a prescription for Zofran 10 tablets and told her if her nausea does not improve she needs to follow-up with her primary care physician for as there is no significant abnormalities on her lab work at presentation. 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 CAD HTN GERD Cough/congestion--> COVID/flu/RSV/respiratory viral panel are all unremarkable Mild aortic stenosis Carotid artery disease Diastolic dysfunction Hypothyroidism Memory impairment Chronic low back pain with radicular symptoms Anxiety/depression Physical Exam Const alert, oriented x3, no apparent distress, average body habitus and well nourished Constitutional Narrative: Older, white female, sitting up in bed finishing breakfast and watching television, affect is flat but patient appears comfortable, does not appear to xic General Appearance: cooperative, comfortable, well kempt and well developed Orientation / Consciousness: awake, oriented to person, oriented to place and oriented to time Exam Limitations: no limitations HEENT normocephalic, head/scalp atraumatic, hearing grossly normal bilaterally and moist oral mucous membranes HEENT Narrative: Mallampati is 2, no thrush Eyes PERRL, EOMs intact bilaterally and conjunctivae normal Eyes Narrative: No scleral icterus Neck no lymphadenopathy and supple Neck Narrative: Trachea midline, no thyroid enlargement Resp normal respiratory effort, normal air movement, no retractions, no use of accessory muscles and clear to auscultation bilaterally Auscultation: Negative for rales, rhonchi or wheezes Cardio regular rate, regular rhythm, S1 normal heart sound, S2 normal heart sound, no murmurs, no rub, no gallops and no clicks GI normal to inspection, nondistended, normoactive bowel sounds, soft to palpation and non-tender Extremity normal to inspection, full ROM, no clubbing, cyanosis or edema and no pedal edema Extremity Narrative: Pedal pulses and radial pulses are 2+ Skin no rashes or lesions noted Neuro oriented x3, CN's II-XII intact bilaterally, moves all extremities, no focal motor deficits and no sensory deficits noted Speech: speech normal Psych Psych Narrative: Affect is flat and mood seems depressed, patient also seems somewhat anxious Mood & Affect: anxious Weight / BMI Weight Weight: 60.4 kg Body Mass Index (BMI) 23.6 ABG / Lab / Microbiology Data 01/06/24 04:57 01/06/24 04:57 Laboratory: Laboratory Results - last 24 hr 01/06/24 04:57: WBC 6.0, RBC 4.38, Hgb 12.9, Hct 37.6, MCV 85.8, MCH 29.5, MCHC 34.3, RDW Std Deviation 36.2, RDW Coeff of Jase 11.6, Plt Count 263, MPV 8.3, Sodium 142, Potassium 3.6, Chloride 111 H, Carbon Dioxide 28.0, Anion Gap 3 L, BUN 6 L, Creatinine 0.77, Estim Creat Clear Calc 47.17, Est GFR (MDRD) Af Amer 93, Est GFR (MDRD) Non-Af 77, BUN/Creatinine Ratio 7.8 L, Glucose 101, Calcium 8 .4 L Microbiology: Microbiology 01/05/24 13:08 Mucosa - Nasopharyngeal Coronavirus COVID-19 PCR - Final 01/05/24 13:08 Mucosa - Nasopharyngeal Respiratory Panel (PCR) - Final Radiography Diagnostic Testing: Radiology Impression Brain MRI 01/04/24 22:10 IMPRESSION: 1. No intracranial mass, hemorrhage, or evidence of acute territorial infarct. 2. Scattered acute layering sinus disease. 3. Moderate senescent changes Electronically Signed: Federico Mcqueen MD at 21:21 EDT , Brain CT 01/06/24 11:48 IMPRESSION: Chronic involutional changes of the brain. Electronically Signed: Bishnu Rinaldi MD at 13:30 EDT , D/C Instructions Discharge Diet: Low fat / Low cholesterol Discharge Activity: Return to Normal Activity Return to work on: 01/08/24 Meaningful Use Info Meaningful Use Meaningful Use Diagnoses (Choose all that apply): None applicable Ischemic Stroke Statin Dosing Therapy Reference: STATIN DOSE THERAPY REFERENCE: * Patients > 75 years receive moderate or high dose statin therapy. * Patients 75 years or YOUNGER should receive HIGH intensity statin dose unless contraindicated. You will be required to document reason for non-treatment if statin daily dose does not meet guidelines. HIGH DOSE STATIN THERAPY DAILY Atorvastatin > than or = to 40 mg Rosuvastatin > than or = to 20 mg Amlodipine + Atorvastatin > than or = to 2.5/40 mg Ezetimibe + Simvastatin 10/80 mg Simvastatin 80mg Discharge Plan Admission Admit Date/Time: 01/04/24 21:24 Primary Reason for Your Visit: Aphasia/dysarthria/headache Attending Provider: Tahira Meadows Primary Care Provider: Smith Orozco Consulting Providers: Gentry Thomson; Jonny Young; Vanessa Waldron; Jennifer Gonzalez; Minoo Silver; Anabell Bang; Freddy Buchanan; Hannah Cobos; Donald Ward; David Meadows; Angie Cook; Federico Jones; Katarzyna Brock; Raysa Hutton; Keikoedison Asa; [place]; Sabi Stout; Fareed Worrell; Letha Meadows; Kelby Cordoba Discharge Orders/Prescriptions Prescriptions: New ondansetron 4 mg tablet,disintegrating 4 mg PO Q8H PRN (Reason: nausea and vomiting) Qty: 10 0RF Continued colestipol [Colestid] 1 gram tablet 1 g PO BID donepezil 5 mg tablet 5 mg PO DAILY carvedilol [Coreg] 6.25 mg tablet 6.25 mg PO BID Qty: 60 11RF Rx Instructions: must administer with a meal/food aspirin [Adult Low Dose Aspirin] 81 mg tablet,delayed release (DR/EC) 81 mg PO DAILY lisinopril 20 mg tablet 20 mg PO BID Qty: 60 11RF atorvastatin 40 mg tablet 40 mg PO QHS famotidine 20 mg tablet 20 mg PO DAILY meloxicam 15 mg tablet 15 mg PO DAILY trazodone 50 mg tablet 100 mg PO QHS PRN (Reason: insomnia) levothyroxine 100 mcg tablet 88 mcg PO DAILY Patient Comments: Pt unaware of dosage Referrals / Follow Up: Smith Orozco MD [Primary Care Provider] - Within 2 Weeks Felipe Hayes MD [Non-Staff] - See Referral Note (As previously scheduled) Disposition Disposition (needs filled in before D/C Order can be placed): Home, Self Care Charges/Coding Visit Charges Inpatient E&M: 13566 Disch Hosp >30min
== END 2024-01-06 16:00 | disposition home or self-care (01) | DRG 92 ==
LOC: ED 19:56 → ICU 21:53
PROVIDERS: Admitting Provider Hospitalist; Emergency Provider Emergency Medicine; PCP Family Medicine; Visit Provider Internal Medicine
DX: R47.01 Aphasia (principal); I50.32 Chronic diastolic (congestive) heart failure; I11.0 Hypertensive heart disease with heart failure; E03.9 Hypothyroidism, unspecified; I35.0 Nonrheumatic aortic (valve) stenosis; G43.109 Migraine with aura, not intractable, without status migrainosus; E78.5 Hyperlipidemia, unspecified; J06.9 Acute upper respiratory infection, unspecified; K21.9 Gastro-esophageal reflux disease without esophagitis; I25.10 Atherosclerotic heart disease of native coronary artery without angina pectoris; M54.50 Low back pain, unspecified; F41.9 Anxiety disorder, unspecified; R13.10 Dysphagia, unspecified; R47.1 Dysarthria and anarthria; G47.00 Insomnia, unspecified; Z11.52 Encounter for screening for COVID-19; G89.29 Other chronic pain; Z79.82 Long term (current) use of aspirin; Z79.890 Hormone replacement therapy; Z79.899 Other long term (current) drug therapy; Z95.5 Presence of coronary angioplasty implant and graft
CPT/HCPCS: 51702; 70450; 70496; 70498; 70551; 71045; 80048; 80061; 82962; 83036; 83735; 84100; 84443; 84484; 85025; 85027; 85610; 85730; 87633; 87635; 92507; 92610; 93005; 97162; 97165; 97802; 99285; J3101; J7030; Q9967; A4216; J2405

== ENCOUNTER → 2024-02-27 | Outpatient (CLI) | payer BC, MEDICARE, SELFPAY ==
--- NOTE | 2024-02-27 17:09 | STRESSREP ---
Stress Test Report Pharmacologic myocardial perfusion stress test. 78-year-old lady with a history of chest pain Resting EKG demonstrates sinus rhythm with a rate of 64 bpm. Resting blood pressure is 193/79 mmHg. 0.4 mg of regadenoson was infused per usual protocol followed by rapid intravenous saline flush injection. Continuous EKG monitoring was performed. The maximum heart rate was 131 bpm which was 92% of max impacted heart rate the maximum workload was 1 metabolic equivalent. At rest there were no ST or T wave changes noted to suggest ischemia and at peak infusion nonspecific ST changes were noted which did not meet the criteria for ischemia. No clinical angina is noted. The final blood pressure was 170/70 mmHg. Myocardial perfusion protocol. 11 mCi of technetium 99m sestamibi was injected at rest. 0.4 mg of regadenoson was infused per usual protocol. At peak infusion 34 mCi of technetium 99m sestamibi was injected stress images were obtained stress and rest images were reconstructed and compared in the short axis vertical long and horizontal long axis. Gated images were also obtained. Perfusion SPECT analysis: Review of the stress images demonstrate normal uptake of tracer noted in all areas of the myocardium. The resting images similar demonstrated normal uptake of tracer noted in all areas of the myocardium. No areas of reversibility are noted to suggest ischemia and no previous infarct is noted. Gated SPECT analysis: The gated ejection fraction is 84%. Conclusion: Normal pharmacologic myocardial perfusion stress test. Preserved ejection fraction.
== END | disposition home or self-care (01) ==
LOC: CVS 07:09
PROVIDERS: PCP Family Medicine; Referring Provider Physician Assistant Medical; Visit Provider Physician Assistant Medical
DX: I25.10 Atherosclerotic heart disease of native coronary artery without angina pectoris (principal); R07.89 Other chest pain
CPT/HCPCS: 78452; 93017; A9500; A4216; J2785

== ENCOUNTER → 2024-08-12 | Outpatient (CLI) | payer MEDICARE, SELFPAY ==
--- NOTE | 2024-08-12 12:45 | CDU_ITS ---
Reason For Study: Carotid artery stenosis Rt. Velocities/BP Lt. Velocities/BP Prox CCA 63.6/13.5 cm/sec. Prox CCA 69.1/15.1 cm/sec. Mid CCA 59.8/14.5 cm/sec. Mid CCA 67.9/12.6 cm/sec. Dist CCA 98.1/17.9 cm/sec. Dist CCA 70.4/17.6 cm/sec. Prox ICA 177/24.1 cm/sec. Prox ICA 80.2/15.1 cm/sec. Mid ICA 140.7/21.5 cm/sec. Mid ICA 63.1/28.6 cm/sec. Dist ICA 97.5/20.6 cm/sec. Dist ICA 83.9/22.5 cm/sec. Rt. ICA/CCA = 2.96. Lt. ICA/CCA = 1.24. Prox ECA 141.2/11.5 cm/sec. Prox ECA 104.7/5.3 cm/sec. Rt. Vert. 74/11.4 cm/sec. Lt. Vert. 37.1/9.7 cm/sec. Right Extracranial There is heterogeneous, irregular atherosclerotic plaque noted in the right common carotid artery. There is heterogeneous, irregular atherosclerotic plaque noted in the right internal carotid artery. The atherosclerotic plaque causes acoustic shadowing. There is heterogeneous, irregular atherosclerotic plaque noted in the right external carotid artery. Antegrade flow is noted in the right vertebral artery. Left Extracranial There is heterogeneous, irregular atherosclerotic plaque noted in the left common carotid artery. There is heterogeneous, irregular atherosclerotic plaque noted in the left internal carotid artery. The atherosclerotic plaque causes acoustic shadowing. There is heterogeneous, irregular atherosclerotic plaque noted in the left external carotid artery. Antegrade flow is noted in the left vertebral artery. Procedure Carotid Duplex 70600. This is a Carotid Duplex examination using B-mode, color flow and specral Doppler. Exam performed in department. VL/Carotid Duplex Ultrasound Interpretation Summary Moderate (50-69%) stenosis right extracranial internal carotid. Mild (<50%) stenosis left extracranial internal carotid. Patent and antegrade vertebrals bilaterally. Ordering Physician: Minoo Morillo Referring Physician: MD Ernesto Smith Performed By: Portia Benjamin RVT
== END | disposition home or self-care (01) ==
PROVIDERS: PCP Family Medicine; Referring Provider Physician Assistant; Visit Provider Physician Assistant
DX: I65.23 Occlusion and stenosis of bilateral carotid arteries (principal)
CPT/HCPCS: 93880

== ENCOUNTER → 2024-12-18 | Outpatient (CLI) | payer MEDICARE, SELFPAY ==
--- NOTE | 2024-12-18 14:01 | VDLE_ITS ---
Reason For Study Reason For Study: BLE Pain RIGHT LEFT CFV is compressible, spontaneous, phasic, competent CFV is compressible, spontaneous, phasic, competent, and demonstrates normal augmentation. and demonstrates normal augmentation. FV is compressible, spontaneous, phasic, competent FV is compressible, spontaneous, phasic, competent and demonstrates normal augmentation. and demonstrates normal augmentation. POP V is compressible, spontaneous, phasic, competent POP V is compressible, spontaneous, phasic, competent and demonstrates normal augmentation. and demonstrates normal augmentation. T/P Trunk is compressible. T/P Trunk is compressible. PTV is compressible. PTV is compressible. RT PerV is compressible. LT PerV is compressible. SFJ is INCOMPETENT and measures 0.45 cm. SFJ is INCOMPETENT and measures 0.64 cm. GSV proximal thigh measures 0.32 x 0.30 cm. GSV proximal thigh measures 0.16 x 0.18 cm. GSV at knee measures 0.21 x 0.22 cm. GSV at knee measures 0.15 x 0.15 cm. GSV INCOMPETENT throughout for greater than 0.5 GSV INCOMPETENT throughout for greater than 0.5 seconds. seconds. SSV mid calf is competent and measures 0.17 x 0.18 SSV mid calf is competent and measures 0.26 x 0.32 cm. cm. Procedure Exam performed in department. This is a venous duplex using B-mode, color flow and spectral Doppler. The exam was diagnostic. Patient was scanned in reverse Trendelenburg position during reflux assessment. VL/Venous Duplex US - Ian Extrem Interpretation Summary Deep veins of the lower extremities are bilaterally patent and compressible seg mentally. There is no evidence of deep vein thrombosis on either side. Valvular competence appears intact within the p roximal deep venous systems bilaterally. The great saphenous veins appear bilaterally patent and compressible segmentall y. Sapheno-femoral junctions are bilaterally incompetent . Segmental valvular incompetence is noted within the g reat saphenous veins bilaterally. Small saphenous veins are patent and competent bilaterally. Ordering Physician: Eren Cannon Referring Physician: MD Ernesto Smith Performed By: Anthony Pink RVT
--- NOTE | 2024-12-18 14:01 | ART_ITS ---
Reason For Study Reason For Study: PVD Procedure A bilateral lower extremity continuous wave Doppler with analog waveform analysis,segmental pressures,and ankle brachial indexes without exercise. Left Segmental Pressures Left brachial= 164mmHg. Left posterior tibial artery = 193mmHg. Left dorsalis pedis artery = 184mmHg. Left digit = 147 mmHg. The left posterior tibial artery waveforms are triphasic. The left dorsalis pedis waveforms are triphasic. Right Segmental Pressures Right brachial= 156mmHg. Right posterior tibial artery = 188mmHg. Right dorsalis pedis artery = 170mmHg. Right digit = 152 mmHg. The right posterior tibial artery waveforms are triphasic. The right dorsalis pedis waveforms are triphasic. Indices The right ankle brachial index by the posterior tibial artery is 1.15. The right ankle brachial index by the dorsalis pedis is 1.04. The right digital-brachial index is 0.93. The left ankle brachial index by the posterior tibial artery is 1.18. The left ankle brachial index by the dorsalis pedis is 1.12. The left digital-brachial index is 0.90. VL/Lower Ext Art Exam w/o Exercis Interpretation Summary Triphasic Doppler waveforms are noted at ankle level bilaterally. Pulse-volume recordings appear satisfactory at all levels bilaterally. Resting ankle-brachial indices are normal bilaterally. Digi sejal-brachial indices are normal bilaterally. There is no evidence of significant arterial occlusive disease in the lower ext remities bilaterally. Ordering Physician: Eren Cannon Referring Physician: MD Ernesto Smith Performed By: Anthony Pink, RVT
== END | disposition home or self-care (01) ==
LOC: CVS 13:55
PROVIDERS: PCP Family Medicine; Referring Provider Podiatrist Foot & Ankle Surgery; Visit Provider Podiatrist Foot & Ankle Surgery
DX: I73.9 Peripheral vascular disease, unspecified (principal); M79.604 Pain in right leg; M79.605 Pain in left leg
CPT/HCPCS: 93923; 93970

== ENCOUNTER 2025-01-30 15:38 | Emergency (ER) | payer MEDICARE, SELFPAY ==
[2025-01-30 15:39] VITALS: BP 137/66; PULSE 62; RESP 16; TEMP 36.7; O2SAT 98; BMI 20.9
--- NOTE | 2025-01-30 16:10 | CT_ITS ---
PROCEDURE: BRAIN/HEAD WITHOUT CONTRAST 01/30/2025 REASON FOR EXAM: TRAUMA TECHNIQUE: Head CT without intravenous contrast. Coronal and Sagittal reconstruction series were provided. One or more dose reduction techniques were used (e.g., Automated exposure control, adjustment of the mA and/or kV according to patient size, use of iterative reconstruction technique. RADIATION DOSE SUMMARY: DLP: 1280 mGycm COMPARISON: None FINDINGS: There is no acute infarct, intracranial hemorrhage, or mass effect. There is no hydrocephalus or significant midline shift. There is mild chronic microvascular ischemic changes and mild parenchymal volume loss. No acute, depressed calvarial fractures. No large scalp hematomas. Bilateral lens surgeries. CT/Brain/Head without Contrast IMPRESSION: No acute intracranial process. Reading Location: [id number]
--- NOTE | 2025-01-30 16:10 | CT_ITS ---
PROCEDURE: CHEST WITHOUT CONTRAST 01/30/2025 REASON FOR EXAM: (L) RIB PAIN S/P FALL TECHNIQUE: Chest CT without contrast. Coronal and Sagittal reconstruction series were provided. One or more dose reduction techniques were used (e.g., Automated exposure control, adjustment of the mA and/or kV according to patient size, use of iterative reconstruction technique RADIATION DOSE SUMMARY: DLP: 1281 mGycm COMPARISON: none FINDINGS: Lymph nodes: Question slight left hilar prominence where adenopathy is not entirely excluded in the absence of IV contrast. Calcifications within the bilateral hilar region, left more than right, likely related to prior granulomatous changes. Heart and Vasculature: Mild cardiomegaly. Trace pericardial effusion. Extensive atherosclerosis of the thoracic aorta. Coronary Artery Calcifications: Extensive coronary atherosclerosis/stents. Lungs and Airways: Left base subsegmental atelectasis versus possible pulmonary contusion. No other focal consolidations. Pleura: Trace left-sided pleural effusion. Upper Abdomen: 1.7 x 1.0 cm nodule within the right adrenal gland likely adenoma. Scattered calcifications throughout the liver and spleen which may reflect prior granulomatous changes. Bones: No acute, displaced rib fractures. Healed right anterior T5 and T7 rib fractures. CT/Chest without Contrast IMPRESSION: No acute, displaced rib fractures. Trace left-sided pleural effusion. Left ba se subsegmental atelectasis versus possible pulmonary contusion. Reading Location: [id number]
--- NOTE | 2025-01-30 16:11 | ED.VIS.FALL ---
HPI HPI - Fall History of Present Illness Chief Complaint: Fall Informant: patient Narrative Narrative: 79-year-old female presenting to the emergency room for evaluation of injuries following a fall. Patient states that on Monday she went to let her dogs out when she hit her leg on some plantars that were on the concrete. This caused her to fall down. She notes bruising to the left forearm pain in the left lateral ribs and abrasions to the knees and contusion to the left side of her face. She states that she has been intermittently having a headache on the right side of her head as well as intermittent blurry vision on the left back. She states today she went to get her hair done and the hairdresser stated that her veins seem more distended on the left and thought that she should be evaluated. She states she does not take any blood thinners. [facility] Medical History Aortic stenosis Gait disturbance Fatigue Lung nodule, multiple Iron deficiency anemia due to chronic blood loss History of GI bleed Diarrhea C. 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 Ventricular hypertrophy Diastolic dysfunction Aortic insufficiency Family history of premature coronary heart disease Aortic valve disease Nonspecific abnormal serum enzyme levels Peptic ulcer disease Carotid artery bruit Palpitations Angina pectoris Chest pain Insomnia GERD (gastroesophageal reflux disease) Home Medications ?Medication ?Instructions ?Recorded ?Last Taken ?Type donepezil 5 mg tablet 5 mg PO DAILY memory 10/16/23 01/04/24 History aspirin 81 mg tablet,delayed 81 mg PO DAILY 11/29/23 01/04/24 History release (Adult Low Dose Aspirin) levothyroxine 100 mcg tablet 88 mcg PO DAILY thyroid 11/29/23 01/04/24 History Lactobacil.acidophilus-Bifido.animalis 1 cap PO DAILY digestion 03/15/24 Unknown History 5 billion cell sprinkle capsule (Probiotic) glucosamine-chondroitin 250 mg-200 2 tab PO QPC 03/15/24 Unknown History mg tablet (Osteo Bi-Flex) multivitamin with minerals-ferrous 1 tab PO DAILY 03/15/24 Unknown History sulfate 4.5 mg iron tablet (One Daily Multivitamins with Minerals) cholecalciferol (vitamin D3) 25 25 mcg PO QDAY 08/30/24 Unknown History mcg (1,000 unit) capsule atorvastatin 40 mg tablet 40 mg PO QHS cholesterol #90 tabs 09/02/24 Unknown Rx famotidine 20 mg tablet 20 mg PO DAILY #90 TABLETS 09/09/24 Unknown Rx amlodipine 5 mg tablet 5 mg PO QDAY #90 tabs 11/12/24 Unknown Rx carvedilol 6.25 mg tablet (Coreg) 6.25 mg PO BID blood pressure #60 11/19/24 Unknown Rx tabs lisinopril 20 mg tablet 20 mg PO BID blood pressure #180 01/13/25 Unknown Rx tabs Allergy/AdvReac Type Severity Reaction Status Date / Time albuterol Allergy Intermediate GI upset Verified 01/30/25 15:39 cyclobenzaprine (From Allergy Intermediate mental Verified 01/30/25 15:39 Flexeril) status change hydrocodone (From Vicodin) Allergy Intermediate muscle Verified 01/30/25 15:39 twitching oxycodone Allergy Intermediate Vomiting Verified 01/30/25 15:39 amoxicillin Allergy Mild Swelling Verified 01/30/25 15:39 clindamycin Allergy Mild Swelling Verified 01/30/25 15:39 diatrizoate meglumine Allergy Mild Itching Verified 01/30/25 15:39 Tetanus Vaccines and Toxoid Allergy Mild Hives Verified 01/30/25 15:39 codeine AdvReac Intermediate Nausea & Verified 01/30/25 15:39 Vomiting benzonatate (From Tessalon AdvReac Mild Vomiting Verified 01/30/25 15:39 Perles) hydrochlorothiazide (From AdvReac Mild intolerance Verified 01/30/25 15:39 Dyazide) triamterene (From Dyazide) AdvReac Mild intolerance Verified 01/30/25 15:39 erythromycin base AdvReac Nausea Verified 01/30/25 15:39 Family History Mother , Age 76 heart attack Myocardial infarction Heart disease Cardiomyopathy Hypertension Osteoporosis Father , Heart Disease Age 86 Heart disease Parkinson disease CVA (cerebral vascular accident) Hypertension Unknown Thyroid disorder Stomach ulcer Surgical History History of appendectomy History of coronary artery stent placement History of colonoscopy (~08/2020) History of esophagogastroduodenoscopy (EGD) (~08/2020) History of hysterectomy History of thyroidectomy Presence of coronary angioplasty implant and graft (~09/01/15) Social History household members: spouse Smoking Status: Never smoker alcohol intake: current alcohol intake frequency: holidays/special occasions only Alcohol type: wine substance use type: does not use diet: other caffeine: Yes Type: coffee Number of servings: 3 what type of physical activity do you participate in: walking frequency: 3-4 times per week seatbelt use: always do you feel safe at home: Yes ROS ROS ED Constitutional Constitutional ED: Denies chills or weight loss Eyes Eyes: Reports blurry vision; Denies change in vision or diplopia ENT ENT ED: Denies ear pain, rhinorrhea or sore throat Cardiovascular Cardiovascular: Reports chest pain; Denies orthopnea, palpitations or racing heartbeat Respiratory/Chest Respiratory/Chest: Denies cough, dyspnea or orthopnea Gastrointestinal Gastrointestinal: Denies abdominal pain, diarrhea, nausea or vomiting Genitourinary Genitourinary ED: Denies dysuria, hematuria or urinary frequency Musculoskeletal Musculoskeletal: Denies arthralgias, myalgias or neck pain Integumentary Reports Abrasions and other Details: Contusions ; Denies abscess or rash Neurologic Neurologic: Reports headache(s); Denies weakness Psychiatric Psychiatric: Denies anxiety, depression, suicidal ideation or suicidal thoughts Endocrine Endocrinology: Denies polydipsia, polyphagia or polyuria Allergic/Immunologic Allergic/Immunologic ED: Denies mouth swelling, tongue swelling or urticaria EXAM Physical Exam Const Vital Signs: 01/30/25 15:39 01/30/25 15:51 Temperature 98.0 F Temperature Source Oral Pulse Rate 62 Respiratory Rate 16 Respiratory Effort Normal Respiratory Depth Normal Respiratory Pattern Normal Blood Pressure 137/66 H Blood Pressure Mean 89 Pulse Ox 98 Oxygen Delivery Method Room Air Room Air Positive well nourished and well developed General Appearance ED: well developed HEENT Reports normocephalic, head/scalp atraumatic and moist mucous membranes HEENT Narrative: There is an area of purple to green ecchymosis left infra lateral periorbital region. There is no hyphema no subconjunctival hemorrhage ocular motions are intact. Midface is stable. I do not appreciate any cords along the temporal artery or the veins on the forehead. No palpable bony depressions. Eyes PERRL and EOMs intact bilaterally Neck full ROM, no lymphadenopathy, supple and no JVD Chest Wall Chest Narrative: Lateral left mid chest wall is tender to palpation. No subcutaneous emphysema. No bony crepitance is felt. No ecchymosis is seen. Resp normal respiratory effort and clear to auscultation bilaterally Cardio regular rate and regular rhythm Cardio Narrative: There is a 2 out of 6 systolic heart murmur GI normal to inspection, nondistended, normoactive bowel sounds and non-tender Palpation: soft Back/Spine no CVA tenderness and normal ROM Extremity Extremity Narrative: Superficial abrasions bilateral knees. Area of purple ecchymosis over the posterior left forearm. No significant swelling. Full range of motion of the upper extremities. General Extremety ED: Negative for edema General Extremity: Negative for edema Neuro oriented x3 and CN's II-XII intact bilaterally Sensorium / Orientation: alert Motor Exam: strength 5/5 throughout Psych mental status grossly normal Mood & Affect: Negative for depressed or tearful Skin no rashes or lesions noted Trauma: abrasion MDM MDM MDM Narrative Medical decision making narrative: Differential diagnosis includes but not limited to concussion intracranial hemorrhage skull fracture rib fracture pneumothorax hemothorax/pleural effusion chest wall contusion CT of the head and chest was obtained. These were read by radiology and reviewed by myself. No obvious rib fracture skull fracture intracranial hemorrhage was noted. Please see radiologist read for full details. Clinically that the patient can be discharged home with supportive care. Clinically with the head injury and continued intermittent headache/blurry vision I do wonder if she sustained a mild concussion. Abrasions and contusions can be treated supportively.. Follow-up with primary care with 1 week, patient is comfortable with this plan History & Record Review Discussion w/independent historian: Patient Additional record(s) reviewed:: Prior inpatient record, Prior ED visit and Prior labs Lab Data Attestation: I reviewed the patient's lab results. Radiography Diagnostic Testing: Clinical Impression(s) from Imaging Studies Brain CT 01/30/25 16:10 IMPRESSION: No acute intracranial process. Reading Location: [facility] Chest CT 01/30/25 16:10 IMPRESSION: No acute, displaced rib fractures. Trace left-sided pleural effusion. Left base subsegmental atelectasis versus possible pulmonary contusion. Reading Location: [facility] Discharge Plan Triage Chief Complaint: Fall ED Provider: Harris James Dx/Rx/DC Orders Clinical Impression: Abrasion, Contusion of forearm, left, Contusion of face, Chest wall contusion, Concussion Instructions: ED Concussion, ED Chest Wall Contusion Prescriptions: No Action donepezil 5 mg tablet 5 mg PO DAILY aspirin [Adult Low Dose Aspirin] 81 mg tablet,delayed release (DR/EC) 81 mg PO DAILY glucosamine-chondroitin [Osteo Bi-Flex] 250-200 mg tablet 2 tab PO QPC Probiotic 5 billion cell capsule, sprinkle 1 cap PO DAILY One Daily Multi-Vit w-Mineral 4.5 mg iron tablet 1 tab PO DAILY cholecalciferol (vitamin D3) 25 mcg (1,000 unit) capsule 25 mcg PO QDAY levothyroxine 100 mcg tablet 88 mcg PO DAILY Patient Comments: Pt unaware of dosage atorvastatin 40 mg tablet 40 mg PO QHS Qty: 90 3RF famotidine 20 mg tablet 20 mg PO DAILY Qty: 90 3RF amlodipine 5 mg tablet 5 mg PO QDAY Qty: 90 3RF carvedilol [Coreg] 6.25 mg tablet 6.25 mg PO BID Qty: 60 11RF Rx Instructions: must administer with a meal/food lisinopril 20 mg tablet 20 mg PO BID Qty: 180 3RF Primary Care Provider: Smith Orozco Referrals: Smith Orozco MD [Primary Care Provider] - 1 Week Print Language: Georgian Disposition Disposition: Home, Self Care
[2025-01-30 17:45] VITALS: BP 168/62; PULSE 67; RESP 14; TEMP 36.9; O2SAT 94
== END 2025-01-30 17:50 | disposition home or self-care (01) ==
PROVIDERS: Emergency Provider Emergency Medicine; PCP Family Medicine; Referring Provider Emergency Medicine; Visit Provider Emergency Medicine
DX: S06.0X0A Concussion without loss of consciousness, initial encounter (principal); I11.0 Hypertensive heart disease with heart failure; I50.9 Heart failure, unspecified; I25.10 Atherosclerotic heart disease of native coronary artery without angina pectoris; E78.5 Hyperlipidemia, unspecified; E03.9 Hypothyroidism, unspecified; S80.212A Abrasion, left knee, initial encounter; S80.211A Abrasion, right knee, initial encounter; S20.20XA Contusion of thorax, unspecified, initial encounter; S50.12XA Contusion of left forearm, initial encounter; W18.09XA Striking against other object with subsequent fall, initial encounter; Z79.82 Long term (current) use of aspirin; Z79.890 Hormone replacement therapy; Z79.899 Other long term (current) drug therapy; Z86.73 Personal history of transient ischemic attack (TIA), and cerebral infarction without residual deficits
CPT/HCPCS: 70450; 71250; 99282

== ENCOUNTER → 2025-04-22 | Outpatient (CLI) | payer MEDICARE, SELFPAY ==
--- NOTE | 2025-04-22 13:09 | ECHOD_ITS ---
Reason For Study Reason For Study: , CVA, CAD Procedure This was a 2D Doppler, Color Flow transthoracic echocardiogram. Myocardial strain analysis was performed in this exam to aid in the assessment of cardiac function. Exam performed in department. Left Ventricle Normal LV size. Left ventricular systolic function is normal. The left ventricular ejection fraction is 70 %. Stage 1 diastolic dysfunction. No regional wall motion abnormalities noted. Right Ventricle Normal RV size. Normal systolic function. Atria Normal left atrium. Normal right atrium. Mitral Valve There is mild mitral annular calcification. Mild (1+) eccentric mitral valve insufficiency. Tricuspid Valve Normal tricuspid valve. Mild tricuspid valve insufficiency. Pulmonary artery systolic pressure is 30 mmHg. Aortic Valve Trisinus/trileaflet aortic valve. Moderate focal aortic valve calcification. Peak aortic valve gradient 22 mmHg. Mean aortic valve gradient 13 mmHg. Mild aortic stenosis. Mild (1+) aortic valve insufficiency. Pulmonic Valve Normal pulmonic valve. Great Vessels Normal aortic root. The pulmonary artery is normal size. Inferior vena cava collapse with respiration. Pericardium/Pleural No pericardial effusion. MMode/2D Measurements & Calculations LVIDd: 3.6 cm IVSd: 1.2 cm LVOT diam: 2.0 cm LVIDs: 2.0 cm LVPWd: 0.88 cm LVOT area: 3.0 cm2 RVDd: 3.0 cm FS: 44.5 % Ao root diam: 2.9 cm LAV(MOD-bp): 34.2 ml LVAd ap4: 20.0 cm2 ACS: 0.88 cm LAV(MOD-bp) Indexed: 22.3 ml/m2 LVLd ap4: 6.8 cm LAV(MOD-sp2): 41.3 ml EDV(MOD-sp4): 48.5 ml LAV(MOD-sp4): 26.8 ml EDV(sp4-el): 50.2 ml LVAs ap4: 9.1 cm2 LVLs ap4: 5.0 cm ESV(MOD-sp4): 14.3 ml ESV(sp4-el): 14.0 ml EF(MOD-sp4): 70.5 % EF(sp4-el): 72.1 % SV(MOD-sp4): 34.2 ml SV(sp4-el): 36.2 ml LA A4 area: 12.6 cm2 SI(MOD-sp4): 22.4 ml/m2 LA dimension(2D): 3.1 cm RA A4 area: 13.5 cm2 TAPSE: 2.0 cm Time Measurements MV dec time: 0.34 sec Doppler Measurements & Calculations MV E max galen: 59.3 cm/sec Lat Peak E' Galen: 5.7 cm/sec Med Peak E' Galen: 4.8 cm/sec MV A max galen: 116.0 cm/sec E/E' lat: 10.3 E/E' med: 12.4 MV E/A: 0.51 Ao V2 max: 234.8 cm/sec AI max galen: 359.0 cm/sec MV dec slope: 176.4 cm/sec2 Ao max P.1 mmHg AI max P.5 mmHg Ao V2 mean: 175.5 cm/sec Ao mean P.4 mmHg AI dec slope: 112.8 cm/sec2 Ao V2 VTI: 59.5 cm AI P1/2t: 931.9 msec AV (velocity ratio): 0.45 YARELY(I,D): 1.4 cm2 YARELY(V,D): 1.3 cm2 LV V1 max: 101.5 cm/sec SV(LVOT): 80.5 ml PA V2 max: 74.0 cm/sec LV V1 max P.1 mmHg LV V1 mean P.6 mmHg LV V1 mean: 78.2 cm/sec LV V1 VTI: 26.5 cm PI end-d galen: 86.4 cm/sec TR max galen: 253.6 cm/sec TR max P.7 mmHg ECHO/Echo Complete Interpretation Summary Normal LV size. Left ventricular systolic function is normal. The left ventricular ejection fraction is 70 %. Stage 1 diastolic dysfunction. Mild aortic stenosis. Mild (1+) aortic valve insufficiency. Ordering Physician: Frankie Quispe Referring Physician: Smith Orozco Performed By: Tamiko Singh, ZAIN, RVT
--- OUTSIDE RECORDS SUMMARY | 2025-04-22 20:55 | XMS RPT_ITS | CCD ---
Author Organization [facility] Care Team Providers Care Recoating Machine Operator Name Role Phone Armando Orozco Unavailable Armando Eric Unavailable Andrea Solorio Unavailable Unavailable No, Physician Primary Care Provider Unavailrod Orozco MD, Armando Primary Care Provider MOO ZUNIGA Admitting Unavailable RAJEEV REESE Referring Unavailab le NO, PHYSICIAN Primary Care Unavailable ALIVIA CASTELLANOS Attending Unavailab OG Cruz Consulting Unavailable JOSELYN URBINA Consulting Unavailable IZABELLA SHARMA Consulting Unavaila TRIXIE Small Attending RAJEEV Capone Referring Unavailab ARMANDO Godinez Primary Care Unavailable LAURI MARKS Admitting Unavailab JOSELYN Trent Consulting Unavailable Armando Orozco MD Primary Care Provider Dr. Armando Orozco Primary Care Provider Dr. Armando Orozco Referring Provider [phone] Dr. Ron Lewis Attending Provider [phone] Stanley FERRY HAND, FERRY HAND-C Nohelia Attending Provider Stanley [address], FERRY HAND-C Nohelia Referring Provider Stanley [address], FERRY HAND-C Nohelia Other Provider [phone] Dr. Nicholas Max Attending Provider [phone] Dr. Armando Orozco Primary Care Provider Dr. Armando Orozco Referring Provider [phone] Dr. Ron Lewis Attending Provider [phone], FERRY HAND-C Nohelia Attending Provider Pradeep STREET, FERRY HANDEstrella Beard Attending Provider [phone] Dr. Enrique Wayne Attending Provider Friend, Dr. Velasquez Referring Provider [phone] Dr. Armando Orozco Primary Care Provider ONEAL ROMERO Attending Unavailable ONEAL ROMERO Admitting Unavailable ARMANDO OROZCO Primary Care Unavailable STAN CARPIO Referring Unavailable CONSULT, GASTROENTEROLOGY Consulting ARMANDO Fuller Primary Care Unavailable MITA BOYLE Admitting Unavailable STAN CARPIO Referring Unavailable TATECECILIOSHDave K Attending Unavailable ESTELLA SMITH Referring Unavailable CONSULT, GASTROENTEROLOGY Consulting Unavai JEREMY Blum Admitting Unavailable TAYE VELASQUEZ Attending Unavailable Dr. Armando Orozco Primary Care Provider Dr. Armando Orozco Referring Provider Armando Orozco MD Primary Care Provider Dr. Armando Orozco Primary Care Provider Dr. Armando Orozco Referring Provider Pradeep FERRY HAND, FERRY HAND-C Bev Beard Attending Provider [phone] [address], FERRY HAND-C Nohelia Attending Provider Armando Orozco Unavailable Unavailable Unavailable Armando Orozco MD Primary Care Provider Armando Orozco MD Primary Care Provider Dr. Armando Orozco Primary Care Provider Dr. Armando Orozco Referring Provider Stanley STREET NP-C Nohelia Attending Provider Pradeep STRETE, FERRY HAND-C Bev Beard Attending Provider [phone] Dr. Nicholas Max Attending Provider [phone] Dr. Nicholas Max Referring Provider [phone] Dr. Nicholas Max Other Provider Dr. Gregory Benjamin Attending Provider [phone] Ernesto, Dr. Mtz Primary Care Provider [phone] Eldershoaib, Dr. Mtz Referring Provider Moodisilishmael, Dr. Peterson Attending Provider [phone] Moodisstefany, Dr. Peterson Referring Provider [phone] Mansoor, Dr. Peterson Other Provider [phone] Gregory Benjamin Attending Provider [phone] Stanley FERRY HAND, FERRY HAND-C Nohelia Attending Provider Ernesto, Dr. Armando Iglesias Primary Care Unav ailable Janas, MrElda Frank Attending Unavailable Janas, MrElda Frank Attending Unavailable Elderbro[place], Dr. Armando Iglesias Primary Care Unav ailable Janas, MrElda Marie Attending Unavailable [facility] Dr[facility] Armando Iglesias Primary Care Unav ailable Janas, MrElda Marie Attending Unavailable [place], Dr. Armando Iglesias Primary Care [facility] ailable [facility] Primary Care Unav ailable Janas, MrElda Marie Attending Unavailable [facility], Dr. Armando Iglesias Primary Care Unav ailable Janas, MrElda Marie Attending Unavailable [place], Dr. Armando Iglesias Primary Care Unav ailable Janas, Elda Marie Attending Unavailable Eshenaur, Elda Cristian Sheffield Attending Fabienne vailable [facility], Dr. Armando Iglesias Primary Care Unav ailable [facility], Dr. Armando Iglesias Primary Care Unav ailable Janmilagros, MrElda Marie Attending Unavailable [facility], Dr. Armando Iglesias Primary Care Unav ailable Janas, MrElda Marie Attending Unavailable [place], Dr. Armando Iglesias Primary Care Unav ailable Marjohn, Dr. Ludmila Feliz Attending U navailable Ernesto, Dr. Armando Iglesias Referring Unav ailable Kelvin, Dr. Ludmila Fleiz Attending U navailable Jaylan, Dr. Parviz Cabello Referring Unavailab le [facility]. [facility] Iglesias Primary Care Unav ailable Kelvin, Dr. Ludmila Feliz Attending U navailable Ernesto, Dr. Armando Iglesias Primary Care Unav ailable MarDr. Ludmila lopez Attending U Dr. Armando Tavares Primary Care Unav ailable EMELIA LYNN Referring Unavailable ARMANDO OROZCO Primary Care Unavailable VINODF, EMELIA Referring Unavailable ERNESTO, ARMANDO Salazar Primary Care Unavailable ARMANDO OROZCO Primary Care Unavailable EMELIA LYNN Referring Unavailable Dr. Armando Orozco Primary Care Provider [phone] Dr. Armando Orozco Referring Provider [phone] Dr. Yumiko Lizama Attending Provider SARAH Stout Attending Provider Armando Orozco MD Primary Care Provider ARMANDO OROZCO Primary Care Unavailable VALENCIA JR., MACIEJ Admitting Unavailable VALENCIA JR., MACIEJ Referring Unavailable KILPATRICK, JUAN MADRIDE Admitting Unavailable KILPATRICK, JUAN STEPHIE Referring Unavailable ARMANDO OROZCO Primary Care Unavailable ARMANDO OROZCO Primary Care Unavailable VALENCIA JR., MACIEJ Admitting Unavailable VALENCIA JR., MACIEJ Referring Unavailable JUAN KILPATRICKE Attending Unavailable ARMANDO OROZCO Primary Care Unavailable VALENCIA JR., MACIEJ Attending Unavailable Dr. Armando Orozco Primary Care Provider Dr. Armando Orozco Referring Provider [phone] SARAH Morillo Attending Provider [phone] Gregory Benjamin Attending Provider [phone] RAJEEV REESE Attending Unavailab le ARMANDO OROZCO Primary Care Unavailable VEGA GRANGER JR Referring Unavailable ARMANDO OROZCO Primary Care Unavailable Dr. Armando Orozco Primary Care Provider SARAH Morillo Referring Provider [phone] Armando Orozco Referring Provider [phone] SARAH Guzman Attending Provider Dr. Matthieu Gomez Emergency Provider Dr. Tahira Meadows Attending Provider Dr. Tahira Meadows Admit Provider Dr. Tahira Meadows Referring Provider Dr. Tahira Meadows Other Provider MD Jonny Young Other Provider Unavailable Dr. Vanessa Waldron Other Provider MD Jennifer Gonzalez Other Provider Unavailable Dr. Minoo Silver Other Provider Dr. Anabell Bang Other Provider Dr. Freddy Buchanan Other Provider Dr. Hannah Cobos Other Provider Dr. Donald Ward Other Provider Dr. Joselyn Meadows Other Provider MD Angie Cook Other Provider Dr. Federico Jones Other Provider Dr. Katarzyna Brock Other Provider Dr. Raysa Hutton Other Provider [phone] Dr. Little Aden Other Provider Dr. Stan Gar Other Provider Dr. Sabi Stout Other Provider Dr. Fareed Wagoner Other Provider Dr. Letha Meadows Other Provider Unavailable MD Kelby Cordoba Other Provider Unavailable Dr. Jose Ortega Attending Provider Dr. Jose Ortega Other Provider Dr. Yumiko Lizama Attending Provider Dr. Armando Orozco Primary Care Provider [phone] Dr. Armando Orozco Referring Provider Arvin SMITH, PA Qing Beard Attending Provider Dr. Matthieu Gomez Emergency Provider Dr. Tahira Meadows Attending Provider Dr. Tahira Meadows Admit Provider Dr. Tahira Meadows Other Provider MD Jonny Young Other Provider Unavailable Dr. Vanessa Waldron Other Provider MD Jennifer Gonzalez Other Provider Unavailable Dr. Minoo Silver Other Provider Dr. Anabell Bang Other Provider Dr. Freddy Buchanan Other Provider [phone] Dr. Hannah Cobos Other Provider Dr. Donald Ward Other Provider Dr. Joselyn Meadows Other Provider MD Angie Cook Other Provider Dr. Federico Jones Other Provider [phone] Dr. Katarzyna Brock Other Provider Dr. Raysa Hutton Other Provider [phone] Dr. Little Aden Other Provider Dr. Stan Gar Other Provider [phone] Dr. Sabi Stout Other Provider Dr. Fareed Wagoner Other Provider [phone] Dr. Letha Meadows Other Provider Unavailable MD Kelby Cordoba Other Provider Unavailable Dr. Jose Ortega Attending Provider Dr. Jose Ortega Other Provider Dr. Yumiko Lizama Attending Provider [phone] Dr. Armando Orozco Primary Care Provider Dr. Armando Orozco Referring Provider Arvin SMITH, PA Qing Beard Attending Provider Dr. Matthieu Gomez Emergency Provider Dr. Tahira Meadows Attending Provider Dr. Tahira Meadows Admit Provider Dr. Tahira Meadows Other Provider MD Jonny Young Other Provider Unavailable Dr. Vanessa Waldron Other Provider MD Jennifer Gonzalez Other Provider Unavailable Dr. Minoo Silver Other Provider Dr. Anabell Bang Other Provider Dr. Freddy Buchanan Other Provider Dr. Hannah Cobos Other Provider Dr. Donald Ward Other Provider Dr. Joselyn Meadows Other Provider MD Angie Cook Other Provider Dr. Federico Jones Other Provider Dr. Katarzyna Brock Other Provider Dr. Raysa Hutton Other Provider [phone] Dr. Little Aden Other Provider Dr. Stan Gar Other Provider Dr. Sabi Stout Other Provider Dr. Fareed Wagoner Other Provider Dr. Letha Meadows Other Provider Unavailable MD Kelby Cordoba Other Provider Unavailable Dr. Jsoe Ortega Attending Provider Dr. Jose Ortega Other Provider Dr. Yumiko Lizama Attending Provider Dr. Izabella Mendoza Emergency Provider Dr. Gentry Thomson Admit Provider [phone] Gentry Thomson Other Provider Armando Orozco MD Primary Care Provider Armando Orozco MD Primary Care Provider Tannhof RELIABILITY TECHNICIAN.PHARMACOVIGILANCE SAFETY EXPERT, Emelia Unavailable Fatemeh RELIABILITY TECHNICIAN.PHARMACOVIGILANCE SAFETY EXPERT, Kushal Unavailable Ernesto TORRES, Dr. Mtz Primary Care Provider [phone] Ernesto TORRES, Dr. Mtz Referring Provider Minoo Porter Attending Provider Qing Guzman Attending Provider Davis DPM, Dr. Jason Attending Provider Davis DPM, Dr. Jason Referring Provider Tannhof RELIABILITY TECHNICIAN.PHARMACOVIGILANCE SAFETY EXPERT, Emelia Unavailable Unavail able Tannhof RELIABILITY TECHNICIAN.PHARMACOVIGILANCE SAFETY EXPERT, Emelia Unavailable ELDERBROCK, ARMANDO D Primary Care Unavailable ELDERBROCK, ARMANDO D Attending Unavailable ELDERBROCK, ARMANDO D Primary Care Unavailable QUEENER, MAYA Referring Unavailable ELDERBROCK, ARMANDO D Primary Care Unavailable QUEENER, MAYA Referring Unavailable ELDERBROCK, ARMANDO D Primary Care Unavailable QUEENER, MAYA Attending Unavailable TANNHOF, EMELIA Referring Unavailable ELDERBROCK, ARMANDO D Primary Care Unavailable TANNHOF, EMELIA Referring Unavailable ELDERBROCK, ARMANDO D Primary Care Unavailable ELDERBROCK, ARMANDO D Primary Care Unavailable TANNHOF, EMELIA Attending Unavailable ELDERBROCK, ARMANDO D Attending Unavailable ELDERBROCK, ARMANDO D Primary Care Unavailable TANNHOF, EMELIA Referring Unavailable ELDERBROCK, ARMANDO D Primary Care Unavailable TANNHOF, EMELIA Attending Unavailable ELDERBROCK, ARMANDO D Primary Care Unavailable TANNHOF, EMELIA Attending Unavailable ELDERBROCK, ARMANDO D Primary Care Unavailable ELDERBROCK, ARMANDO D Primary Care Unavailable JAGUAR BALLARD Attending Unavailable FATEMEH, KUSHAL Attending Unavailable ELDERBROCK, ARMANDO D Primary Care Unavailable Dr. Armando Orozco MD Primary Care Provider Lester TORRES, Dr. Romie Smith Attending Provider Dr. Bibiana James DO Attending Provider Dr. Bibiana James DO Referring Provider Dr. Bibiana James DO Emergency Provider Minoo Porter Attending Provider Ernesto TORRES, Dr. Mtz Referring Provider [phone] Vida Aiken Attending Provider Jose Enrique TORRES, Dr. David Attending Provider [phone] Kar TORRES, Dr. Marquez Attending Provider VERÓNICA WALLACE Attending Unavailable VERÓNICA WALLACE Referring Unavailable ELDERBROCK, ARMANDO BIBIANA Primary Care Unavaila ble Elderbrock, Armando Referring Unavailable Elderbrock, Armando Primary Care Unavailable Alma Lakhani Attending Unavailable Elder[place], Armando Primary Care Unavailable [place], Armando Referring Unavailable Morillo, Minoo Attending Unavailable Elderbrock, Armando Primary Care Unavailable Bibiana James Attending Unavailable Bibiana James Referring Unavailable [place], Armando Primary Care Unavailable Jose Enrique, Frankie Attending Unavailable Jose Enrique, Frankie Referring Unavailable Morillo, Minoo Attending Unavailable Morillo, Minoo Referring Unavailable Elderbrock, Armando Primary Care Unavailable Elder[place], Amrando Primary Care Unavailable Jaguar Cannon Attending Unavailable Jaguar Cannon Referring Unavailable [place], Armando Primary Care Unavailable Qing Guzman Attending Unavail able Elderbrock, Armando Referring Unavailable Morillo, Minoo Referring Unavailable Elder[place], Armando Primary Care Unavailable Gregory Benjamin Attending Unavailable Elderbrock, Armando Primary Care Unavailable Cannon, Jaguar Referring Unavailable Morillo, Minoo Attending Unavailable Elderbrock, Armando Referring Unavailable [place], Armando Primary Care Unavailable Vida Narvaez Attending Unavailable [place], Armando Primary Care Unavailable Jose Enrique, Frankie Attending Unavailable Elderbrock, Armando Referring Unavailable Elder[place], Armando Primary Care Unavailable Jose Enrique, [place] Attending Unavailable [place], Armando Referring Unavailable [place], Armando Primary Care Unavailable Alma Lakhani Attending Unavailable Ernesto TORRES, Dr. Mtz Primary Care Provider [phone] Davis JORDAN, Dr. Jason Referring Provider Kar TORRES, Dr. Marquez Attending Provider Jose Enrique TORRES, Dr. David Referring Provider [phone] Allergies Allergy Classification Reported Allergen(s) Allergy Type Date of Onset Reaction(s) Facility Acetaminophen (4 sources) Acetaminophen Drug Allergy [address] [facility] Acetaminophen / HYDROcodone (1 source) Acetaminophen / HYDROcodone Drug Allergy 011 Intolerance [facility] Work Phone: Albuterol (1 source) Albuterol Drug Allergy 019 Intolerance [facility] Work Phone: [phone] benzonatate (1 source) benzonatate Drug Allergy 005 GI Upset [facility] Work Phone: [phone] cyclobenzaprine (1 source) cyclobenzaprine Drug Allergy 005 Mental Status Change [facility] Diatrizoate (1 source) Diatrizoate Drug Allergy 021 Itching [facility] hydroCHLOROthiazide / Triamterene (1 source) hydroCHLOROthiazide / Triamterene Drug Allergy 013 Intolerance [facility] Iodine (and Iodine containting drugs) (1 source) Iodine Drug Allergy 021 Itching [facility] Lincosamides (antibiotic) (1 source) Clindamycin Drug Allergy 023 Swelling [facility] Macrolides (antibiotic) (1 source) Erythromycin Drug Allergy 005 GI Upset [facility] Opioid Agonists (7 sources) Codeine Drug Allergy 005 Vomiting, GI Upset [facility] Penicillins (antibiotic) (1 source) Amoxicillin Drug Allergy 013 Other: See Comments [facility] Work Phone: (20 sources) codeine; Translations: [codeine] Drug Allergy 005 Vomiting, Unknown [facility] Rep[facility] (20 sources) erythromycin; Translations: [erythromycin] Drug Allergy 005 GI Upset [facility] (20 sources) Acetaminophen; Translations: [ACETAMINOPHEN] Drug Allergy 011 Other: See Comments [facility] (20 sources) Acetaminophen / HYDROcodone; Translations: [HYDROCODONE-ACETAMIN OPHEN] Drug Allergy 011 Intolerance [facility] Work Phone: [phone] (20 sources) Albuterol; Translations: [ALBUTEROL] Drug Allergy 019 Intolerance [facility] Work Phone: (20 sources) Amoxicillin; Translations: [AMOXICILLIN] Drug Allergy 013 Other: See Comments [facility] Work Phone: (20 sources) benzonatate; Translations: [BENZONATATE] Drug Allergy 005 GI Upset, Other [facility] Work Phone: (20 sources) cyclobenzaprine; Translations: [CYCLOBENZAPRINE] Drug Allergy 005 Mental Status Change [facility] Work Phone: [phone] (20 sources) Diatrizoate; Translations: [DIATRIZOATE MEGLUMINE] Drug Allergy 021 Itching [facility] (20 sources) hydroCHLOROthiazide / Triamterene; Translations: [TRIAMTERENE-HYDROCHL OROTHIAZID] Drug Allergy Intolerance [facility] (20 sources) Iodine; Translations: [IODINE] Drug Allergy 021 Itching [facility] (20 sources) oxyCODONE; Translations: [OXYCODONE] Drug Allergy 017 Vomiting [facility] Work Phone: [phone] (20 sources) oxyCODONE; Translations: [OXYCODONE HCL] Drug Allergy 012 GI Upset, Vomiting [facility] (6 sources) Tetanus Vaccines And Toxoid; Translations: [TETANUS VACCINES AND TOXOID] Propensity to adverse reactions [facility] Work Phone: (20 sources) Erythromycin Drug Allergy 022 Nausea [facility] (20 sources) hydroCHLOROthiazide Drug Allergy 022 intolerance [facility] (20 sources) HYDROcodone; Translations: [HYDROCODONE] Drug Allergy 021 GI Upset [facility] (10 sources) Isosorbide Drug Allergy 022 Headaches [facility] (20 sources) Triamterene Drug Allergy 022 intolerance [facility] (20 sources) Tetanus Vaccines And Toxoid Propensity to adverse reactions [facility] Work Phone: (20 sources) Clindamycin; Translations: [CLINDAMYCIN] Drug Allergy 023 Swelling [facility] (13 sources) Tetanus Vaccines and Toxoid Allergy to substance 024 Hives [facility] (1 source) Albuterol Drug Allergy [facility] Rep[facility] (1 source) Amoxicillin Drug Allergy [facility] (1 source) benzonatate Drug Allergy [facility] (1 source) Clindamycin Drug Allergy [facility] (1 source) cyclobenzaprine Drug Allergy [facility] (1 source) Diatrizoate Drug Allergy [facility] (1 source) Erythromycin Drug Allergy [facility] (1 source) hydroCHLOROthiazide Drug Allergy [facility] (1 source) HYDROcodone Drug Allergy [facility] (1 source) oxyCODONE Drug Allergy 025 [facility] (1 source) Triamterene Drug Allergy [facility] (1 source) Tetanus Vaccines and Toxoid Drug allergy (disorder) [facility] Rep[facility] Medications Current Medications Medication Drug Class(es) Dates Sig (Normalized) Sig (Original) amLODIPine 5 mg oral tablet (20 sources) Dihydropyridine Calcium Channel Celio Start: 11-12-2024 take 1 tablet by mouth once daily Amlodipine 5 mg tablet Active 5 mg PO daily 90 November 12, 2024 1:00am Start: 01-31-2024 End: 09-25-2024 take 1 tablet by mouth once daily Amlodipine (Norvasc) 5 mg tablet Discontinued 5 mg PO DAILY 30 January 31, 2024 12:00am September 25, 2024 12:27pm Start: 12-07-2022 End: 06-10-2024 take 1 tablet by mouth once daily Amlodipine 2.5 mg tablet Discontinued 2.5 mg PO DAILY 30 December 07, 2022 12:00am October 16, 2023 3:49pm On Hold: Pt wants to try off of med Comment on above: DAILY aspirin 81 mg delayed release oral tablet (20 sources) Platelet Aggregation Inhibitor, Nonsteroidal Anti-inflammatory Drug Start: 11-29-2023 Aspirin (Adult Low Dose Aspirin) 81 mg tablet,delayed release (DR/EC) Active 81 mg PO DAILY November 29, 2023 12:00am Start: 10-14-2015 End: 04-28-2021 Aspirin (Adult Low Dose Aspi rin) 81 mg tablet,delayed release (DR/EC) Active 81 mg PO DAILY November 29, 2023 12:00am Start: 08-21-2015 End: 10-16-2023 take 1 tablet by mouth once daily Aspirin 81 MG tablet,chewable Discontinued 81 mg PO DAILY@0800 July 01, 2021 11:34pm October 16, 2023 3:49pm heart health Comment on above: Take 1 tablet by shira once daily. bacitracin zinc 0.5 unt/mg topical ointment (1 source) Start: 05-12-20 End: 05-19-20 bacitracin zinc (ANTIBIOTIC, BACITRACIN ZINC,) 500 unit/gram ointment Indications: Blister Apply to affected area twice daily for 7 days. 14 g 0 05/12/2023 05/19/2023 Active Comment on above: Apply to affected ar ea twice daily for 7 days. CENTRUM SILVER ORAL TAB (20 sources) Start: 05-10-20 take 1 tablet by mouth once daily CENTRUM SILVER ORAL TAB Take one(1) tablet daily. 30 0 05/10/2005 Active Comment on above: Take one(1) tablet d aily. cholecalciferol 0.025 mg oral capsule (20 sources) Vitamin D Start: 03-11-20 25 take 1 capsule by mouth once daily Cholecalciferol (Vitamin D3) 25 mcg (1,000 unit) capsule Active 2000 U PO daily March 11, 2025 3:13pm Start: 08-30-2024 End: 03-11-2025 take 1 capsule by mouth once daily Cholecalciferol (Vitamin D3) 25 mcg (1,000 unit) capsule Discontinued 25 ug PO daily August 30, 2024 1:00am March 11, 2025 3:14pm Start: 06-22-2022 End: 10-16-2023 take 1 capsule by mouth once daily Cholecalciferol (Vitamin D3) 50 mcg (2,000 unit) capsule Discontinued 50 ug PO DAILY June 22, 2022 12:00am October 16, 2023 3:49pm Comment on above: DAILY cholecalciferol, vitamin D3, (VITAMIN D3 ORAL) (1 source) cholecalciferol, vitamin D3, (VITAMIN D3 ORAL) Take by mouth. Active chondroitin sulfates 200 mg / glucosamine hydrochloride 250 mg oral tablet (20 sources) Start: 03-15-2024 Glucosamine-Ch ondroitin (Osteo Bi-Flex) 250-200 mg tablet Active 2 {tbl} PO after meals March 15, 2024 12:00am Start: 02-05-2020 End: 05-26-2021 Glucosamine-Chondroitin (Ost eo Bi-Flex) 250-200 mg tablet Discontinued 1 {tbl} PO TWICE A DAY February 05, 2020 12:00am May 26, 2021 1:23pm Start: 02-05-2020 End: 05-26-2021 COMPOUNDED PRESCRIPTION (20 sources) Start: 10-14-2015 COMPOUNDED PRESCRIPTION Home blood pressure monitor. DX: Essential HTN I10 1 Each 0 10/14/2015 Active Comment on above: Home blood pressure monitor. DX: Essential HTN I10 donepezil hydrochloride 5 mg oral tablet (20 sources) Start: 03-11-2025 take 2 tablets by mouth once daily Donepezil 5 mg tablet Active 10 mg PO DAILY March 11, 2025 3:13pm memory Start: 08-16-2024 End: 02-11-2025 take 1 tablet by mouth once daily at bedtime donepezil (ARICEPT) 10 mg tablet Indications: Dementia without behavioral disturbance, psychotic disturbance, mood disturbance, or anxiety, unspecified dementia severity, unspecified dementia type (HCC) TAKE 1 TABLET BY MOUTH ONCE DAILY AT BEDTIME 90 tablet 02/11/2025 Active Start: 01-12-2024 End: 08-13-2024 take 1 tablet by mouth once daily at bedtime donepezil (ARICEPT) 10 mg tablet Indications: Dementia without behavioral disturbance, psychotic disturbance, mood disturbance, or anxiety, unspecified dementia severity, unspecified dementia type (HCC) Take 1 tablet by mouth daily at bedtime. Pt reports taking 5 mg daily 90 tablet 06/10/2024 08/13/2024 Discontinued Start: 10-06-2023 End: 03-11-2025 take 1 tablet by mouth once daily Donepezil 5 mg tablet Discontinued 5 mg PO DAILY October 16, 2023 1:00am March 11, 2025 3:14pm memory Comment on above: Take 1 tablet by shira th daily at bedtime. L. Acidophilus/Bifid. Animalis (Probiotic) 5 billion cell capsule, sprinkle (8 sources) Start: 03-15-2024 take 5 capsules by mouth once daily L. Acidophilus/Bifid. Animalis (Probiotic) 5 billion cell capsule, sprinkle Active 1 NMA PO DAILY March 15, 2024 12:00am digestion Start: 03-15-2024 take 5 capsules by m out once daily L. Acidophilus/Bifid. Animalis (Probiotic) 5 billion cell capsule, sprinkle Active 1 NMA PO DAILY March 15, 2024 12:00am levothyroxine sodium 0.1 mg oral tablet (20 sources) l-Thyroxine Start: 03-11-2025 take 1 tablet by mouth once daily Levothyroxine 100 mcg tablet Active 100 ug PO DAILY March 11, 2025 3:13pm thyroid Start: 11-29-2023 End: 03-11-2025 Levothyroxine 100 mcg tablet Discontinued 88 ug PO DAILY November 29, 2023 1:42pm March 11, 2025 3:14pm thyroid Start: 07-14-2022 End: 01-13-2023 take 1 tablet by mouth once daily for thyroid dysfunction levothyroxine (SYNTHROID) 88 mcg tablet Indications: Postsurgical hypothyroidism TAKE 1 TABLET BY MOUTH ONCE DAILY ON AN EMPTY STOMACH FOR THYROID 30 tablet 5 01/13/2023 01/13/2023 Discontinued Start: 05-05-2022 End: 07-14-2022 take 1 tablet by mouth once daily for thyroid dysfunction Levothyroxine Sodium 75 MCG Oral Tablet TAKE 1 TABLET BY MOUTH ONCE DAILY ON AN EMPTY STOMACH FOR THYROID Quantity: 30 Refills: 0 Ordered: 25-Jun-2022 DO Start : 05-May-2022 Active Start: 02-08-2022 Levothyroxine Sodium 100 MCG Oral Tablet Quantity: 90 Refills: 0 Ordered: 08-Feb-2022 DO Start : 08-Feb-2022 Active Start: 01-04-2021 End: 12-10-2024 take 1 tablet by mouth once daily Levothyroxine 100 mcg tablet Discontinued 100 ug PO DAILY April 28, 2021 12:00am November 29, 2023 1:45pm thyroid Start: 04-15-2020 End: 04-28-2021 Levothyroxine (Synthroid) 10 0 mcg tablet Discontinued 88 ug PO DAILY April 15, 2020 2:56pm April 28, 2021 9:50am Start: 05-23-2018 End: 04-15-2020 take 1 tablet by mouth once daily Levothyroxine (Synthroid) 100 mcg tablet Discontinued 100 ug PO DAILY May 23, 2018 12:00am April 15, 2020 2:57pm Start: 05-23-2018 End: 11-29-2023 Start: 04-03-2018 End: 05-23-2018 Levothyroxine 125 mcg tablet Discontinued 100 ug PO DAILY April 03, 2018 2:54pm May 23, 2018 10:21am Start: 10-26-2017 End: 04-03-2018 Levothyroxine 125 MCG tablet Discontinued 112 ug PO DAILY October 26, 2017 12:41pm April 03, 2018 2:57pm Start: 10-26-2017 End: 05-23-2018 Start: 08-19-2015 End: 10-26-2017 take 1 tablet by mouth once daily Levothyroxine 125 MCG tablet Discontinued 125 ug PO DAILY August 19, 2015 1:00am October 26, 2017 12:44pm Start: 08-19-2015 End: 05-23-2018 take 100 ug by mouth once daily Levothyroxine Disconti nued 100 MCG PO DAILY April 03, 2018 1:54pm May 23, 2018 9:21am levothyroxine (T irosint) 88 mcg capsule Take by mouth early in the morning.. Take on an empty stomach at the same time each day, either 30 to 60 minutes prior to breakfast Active Comment on above: Take 1 tablet by shira th daily before breakfast. Take 1 tablet by shira th once daily. Take on empty stomach. For Thyroid TAKE 1 TABLET BY SHIRA TH ONCE DAILY ON AN EMPTY STOMACH FOR THYROID Take 1 tablet by shira th once daily. Take on empty stomach. For Thyroid. lisinopril 20 mg oral tablet (20 sources) Angiotensin Converting Enzyme Inhibitor Start: 03-11-2025 take 1 tablet by mouth once daily Lisinopril 20 mg tablet Active 20 mg PO daily March 11, 2025 3:13pm blood pressure Start: 11-29-2023 End: 03-11-2025 take 1 tablet by mouth twice daily Lisinopril 20 mg tablet Discontinued 20 mg PO TWICE A DAY 180 January 13, 2025 9:27am March 11, 2025 3:14pm blood pressure Start: 05-08-2023 End: 11-29-2023 Start: 09-08-2022 End: 01-11-2024 take 2 tablets by mouth once daily Lisinopril 10 mg tablet Discontinued 20 mg PO DAILY October 16, 2023 3:47pm November 29, 2023 1:45pm blood pressure Start: 09-08-2022 End: 11-29-2023 take 1 tablet by mouth twice daily Lisinopril 10 mg tablet Discontinued 10 mg PO TWICE A DAY 180 August 01, 2023 12:49pm October 16, 2023 3:50pm blood pressure Start: 07-28-2020 End: 03-01-2021 take 2 tablets by mouth once daily Lisinopril 10 mg tablet Discontinued 20 mg PO DAILY 90 July 28, 2020 9:05am March 01, 2021 10:15am Start: 11-28-2019 End: 02-05-2020 take 5 mg by mouth twice daily Lisinopril 10 mg tablet Discontinued 5 mg PO TWICE A DAY 0 0 November 28, 2019 3:56pm February 05, 2020 10:19am Start: 11-28-2019 End: 02-05-2020 take 5 mg by mouth twice daily Lisinopril Discontinued 5 MG PO TWICE A DAY 0 November 28, 2019 3:56pm February 05, 2020 10:19am Start: 01-30-2019 End: 04-28-2021 take 1 tablet by mouth once daily Lisinopril 10 mg tablet Discontinued 0 .ROUTE .COMPLEX 90 March 01, 2021 10:14am April 28, 2021 9:50am Take 1 tablet by mouth once daily Start: 07-24-2018 End: 01-30-2019 take 5 mg by mouth once daily Lisinopril 10 mg tablet Discontinued 5 mg PO DAILY 90 July 24, 2018 1:00am January 30, 2019 8:57am Start: 07-24-2018 End: 07-09-2024 take 1 tablet by mouth once daily Lisinopril 20 mg tablet Discontinued 20 mg PO DAILY 90 May 26, 2022 9:54am September 08, 2022 12:45pm blood pressure Start: 07-24-2018 End: 07-24-2018 take 10 mg by mouth twice daily Lisinopril 20 mg table t Discontinued 10 mg PO TWICE A DAY 90 July 24, 2018 9:39am July 24, 2018 10:49am Start: 07-24-2018 End: 01-30-2019 take 5 mg by mouth once daily Lisinopril Discontinued 5 MG PO DAILY July 24, 2018 1:00am January 30, 2019 8:57am Start: 07-24-2018 End: 07-24-2018 take 10 mg by mouth twice daily Lisinopril Discontinue d 10 MG PO TWICE A DAY July 24, 2018 8:39am July 24, 2018 9:49am Start: 08-28-2017 End: 07-24-2018 take 1 tablet by mouth twice daily Lisinopril 10 mg tablet Discontinued 10 mg PO TWICE A DAY 180 February 06, 2018 1:41pm July 24, 2018 9:38am Start: 08-28-2017 End: 04-28-2021 take 1 tablet by mouth once daily Lisinopril Discontinued 0 .ROUTE .COMPLEX 90 March 01, 2021 9:14am April 28, 2021 8:50am Take 1 tablet by mouth once daily Start: 08-21-2015 End: 08-28-2017 take 1 tablet by mouth twice daily Lisinopril 20 MG tablet Discontinued 20 mg PO TWICE A DAY 60 0 August 21, 2015 1:00am August 28, 2017 3:26pm Comment on above: Take 20 mg by mouth once daily. 20 mg. Apgdolmw-Gnr-Qyhiicq Sulfate (One Daily Multi-Vit W-Mineral) 4.5 mg iron tablet (8 sources) Start: 03-15-2024 take 1 tablet by mouth once daily Bfeowrmj-Kke-Aemmsem Sulfate (One Daily Multi-Vit W-Mineral) 4.5 mg iron tablet Active 1 {tbl} PO DAILY March 15, 2024 12:00am multivitamin (multivitamin) per tablet (8 sources) take 1 tablet by mouth once daily multivitamin (multivitamin) per tablet Take 1 (one) tablet by mouth daily . 0 Active take 1 tablet by mouth once alayna y multivitamin (multivitamin) per tablet Take 1 tablet by mouth daily . 0 Active take 1 tablet by mouth once alayna y multivitamin (multivitamin) per tablet Take 1 tablet by mouth daily . 0 take 1 tablet by mouth once alayna y multivitamin (multivitamin) per tablet Take 1 tablet by mouth daily . 0 Suspended multivitamin tablet (1 source) take 1 tablet by mouth once daily multivitamin tablet Take 1 tablet by mouth once daily. Active mupirocin 0.02 mg/mg topical ointment (1 source) RNA Synthetase Inhibitor Antibacterial Start: 023 End: mupirocin (BACTROBAN) 2 % ointment Apply to affected area twice daily for 5 days. 30 g 0 05/05/2023 05/10/2023 Active Comment on above: Apply to affected ar ea twice daily for 5 days. nitrofurantoin, macrocrystals 25 mg / nitrofurantoin, monohydrate 75 mg oral capsule (7 sources) Nitrofuran Antibacterial Start: 024 End: take 1 capsule by mouth twice daily at mealtime nitrofurantoin monohydrate and macrocrystal (MACROBID) 100 mg capsule Indications: Acute cystitis with hematuria Take 1 capsule by mouth two times a day with meals for 7 days. 14 capsule 0 03/20/2024 03/27/2024 Active Start: 02-19-2024 End: 02-26-2024 take 1 capsule by mouth twice daily at mealtime nitrofurantoin monohydrate and macrocrystal (MACROBID) 100 mg capsule Indications: Acute cystitis without hematuria Take 1 capsule by mouth two times a day with meals for 7 days. 14 capsule 0 02/19/2024 02/26/2024 Active Start: 2023 End: 10-18-2023 take 1 capsule by mouth twice daily at mealtime nitrofurantoin monohydrate and macrocrystal (MACROBID) 100 mg capsule Indications: Acute cystitis with hematuria Take 1 capsule by mouth two times a day with meals for 7 days. 14 capsule 0 2023 10/18/2023 Comment on above: Take 1 capsule by [facility] two times a day with meals for 7 days. predniSONE 10 mg oral tablet (5 sources) Start: 12-24-2024 End: 01-02-2025 predniSONE (DELTASONE) 10 mg tablet Indications: Fibromyalgia Take 4 tabs daily for 3 days, then 2 tabs daily for 3 days, then 1 tab daily for 3 days with food. 21 tablet 12/24/2024 01/02/2025 Active Start: 04-15-2021 End: 04-20-2021 take 5 tablets by mouth once daily, then take 4 tablets by mouth once daily, then take 3 tablets by mouth once daily, then take 2 tablets by mouth once daily, then take 1 tablet by mouth once daily predniSONE (DELTASONE) 10 mg tablet Indications: Left leg pain Take 5 tablets by mouth once daily for 1 day, THEN 4 tablets once daily for 1 day, THEN 3 tablets once daily for 1 day, THEN 2 tablets once daily for 1 day, THEN 1 tablet once daily for 1 day. 15 tablet 04/15/2021 04/20/2021 End: 04-21-2021 predniSONE (DELTASONE) 10 mg tablet pack Take by mouth daily . 0 04/21/2021 Discontinued (Stop Taking at Discharge) solifenacin succinate 5 mg oral tablet (1 source) Cholinergic Muscarinic Antagonist Start: 04-18-2025 take 1 tablet by mouth once daily Solifenacin 5 mg tablet Active 5 mg PO daily 90 3 April 18, 2025 12:00am traZODone hydrochloride 50 mg oral tablet (20 sources) Serotonin Reuptake Inhibitor Start: 03-11-2025 take 3 tablets by mouth at bedtime Trazodone 50 mg tablet Active 150 mg PO AT BEDTIME March 11, 2025 12:00am Start: 12-10-2024 take 3 tablets by mo uth once daily at bedtime traZODone (DESYREL) 50 mg tablet Take 3 tablets by mouth daily at bedtime. 180 tablet 3 12/10/2024 Active Start: 09-12-2024 End: 12-10-2024 take 2 tablets by mouth once daily at bedtime traZODone (DESYREL) 50 mg tablet Take 2 tablets by mouth daily at bedtime. 180 tablet 3 09/12/2024 12/10/2024 Discontinued (Adjust Sig - Block E-Cancel) Start: 01-04-2024 take 100 mg by mouth at bedtim e Trazodone Active 100 MG PO AT BEDTIME January 04, 2024 12:00am Start: 05-18-2022 traZODone HCl - 50 MG Oral Tablet Quantity: 120 Refills: 0 Ordered: 18-May-2022 DO Start : 18-May-2022 Active Start: 05-04-2022 End: 11-29-2023 take 100 mg by mouth at bedtime Trazodone Discontinued 100 MG PO AT BEDTIME May 04, 2022 11:16am November 29, 2023 1:44pm Start: 10-27-2021 End: 07-26-2023 take 4 tablets by mouth once daily at bedtime traZODone (DESYREL) 50 mg tablet Indications: Chronic insomnia Take 4 tablets by mouth daily at bedtime. 120 tablet 5 10/27/2021 05/05/2022 Discontinued (Adjust Sig - Block E-Cancel) Start: 05-26-2021 End: 05-04-2022 take 3 tablets by mouth at bedtime Trazodone 50 mg tablet Discontinued 150 mg PO AT BEDTIME May 26, 2021 1:24pm May 04, 2022 11:18am sleep Start: 05-26-2021 End: 05-04-2022 take 150 mg by mouth at bedtime Trazodone Discontinued 150 MG PO AT BEDTIME May 26, 2021 1:24pm May 04, 2022 11:18am Start: 10-21-2020 End: 06-13-2021 take 4 tablets by mouth once daily at bedtime traZODone (DESYREL) 50 mg tablet Indications: Chronic insomnia Take 4 tablets by mouth daily at bedtime. 120 tablet 5 10/21/2020 06/13/2021 Discontinued Start: 08-19-2015 End: 06-10-2024 take 2 tablets by mouth at bedtime as needed Trazodone 50 mg tablet Discontinued 100 mg PO AT BEDTIME as needed for insomnia January 04, 2024 12:00am January 31, 2024 12:59pm Start: 08-19-2015 End: 05-26-2021 take 1 tablet by mouth at bedtime Trazodone 50 MG tablet Discontinued 50 mg PO AT BEDTIME August 19, 2015 1:00am May 26, 2021 1:25pm Comment on above: Take 4 tablets by mo uth daily at bedtime. Take 2 tablets by mo uth daily at bedtime. Take 50 mg by mouth daily at bedtime. 2 tabs Completed/Discontinued Medications Medication Drug Class(es) Dates Sig (Normalized) Sig (Original) amitriptyline hydrochloride 10 mg oral tablet (5 sources) Tricyclic Antidepressant Start: 06-10-2024 End: 12-07-2024 take 1 tablet by mouth once daily at bedtime amitriptyline (ELAVIL) 10 mg tablet Indications: Fibromyalgia , Myalgias , Sleep disorder Take 1 tablet by mouth daily at bedtime. 30 tablet 5 06/10/2024 09/12/2024 Discontinued atorvastatin 40 mg oral tablet (20 sources) HMG-CoA Reductase Inhibitor Start: 07-04-2022 Atorvastatin Calcium 40 MG Oral Tablet Quantity: 90 Refills: 0 Ordered: 04-Jul-2022 DO Start : 04-Jul-2022 Active Start: 04-28-2021 End: 05-26-2021 take 2 tablets by mouth at bedtime Atorvastatin 20 mg tablet Discontinued 40 mg PO AT BEDTIME 90 3 April 28, 2021 9:49am May 26, 2021 1:22pm Start: 04-28-2021 End: 05-26-2021 take 40 mg by mouth at bedtime Atorvastatin Discontinu ed 40 MG PO AT BEDTIME 90 April 28, 2021 9:49am May 26, 2021 1:22pm Start: 04-20-2021 End: 09-02-2024 take 1 tablet by mouth at bedtime Atorvastatin 40 mg tablet Discontinued 40 mg PO AT BEDTIME 90 3 August 01, 2023 10:45am October 16, 2023 3:47pm cholesterol lowering Start: 06-22-2020 End: 09-07-2022 take 1 tablet by mouth at bedtime Atorvastatin 20 mg tablet Discontinued 20 mg PO AT BEDTIME 90 July 07, 2020 5:34pm April 28, 2021 9:53am Start: 04-01-2019 End: 02-05-2020 take 1 tablet by mouth once daily Atorvastatin 20 mg tablet Discontinued 20 mg PO DAILY 90 3 April 03, 2019 6:52am February 05, 2020 10:19am Start: 05-16-2018 End: 01-30-2019 take 1 tablet by mouth once daily Atorvastatin (Lipitor) 20 mg tablet Discontinued 20 mg PO DAILY 30 6 May 16, 2018 12:00am January 30, 2019 8:56am Start: 08-21-2015 End: 10-26-2017 take 1 tablet by mouth at bedtime Atorvastatin 20 MG tablet Discontinued 20 mg PO AT BEDTIME 30 0 August 21, 2015 1:00am October 26, 2017 12:42pm Comment on above: Take 20 mg by mouth once daily. AT BEDTIME atropine sulfate 0.025 mg / diphenoxylate hydrochloride 2.5 mg oral tablet (20 sources) Anticholinergic, Cholinergic Muscarinic Antagonist, Antidiarrheal Start: 09-27-2021 Diphenoxylate-Atro pine 2.5-0.025 MG Oral Tablet Quantity: 60 Refills: 0 Ordered: 27-Sep-2021 DO Start : 27-Sep-2021 Active Start: 09-24-2021 End: 03-31-2022 Diphenoxylate-Atropine (Lomo til) 2.5-0.025 mg tablet Discontinued 1 {tbl} PO TWICE A DAY as needed for diarrhea 60 0 September 24, 2021 1:00am March 31, 2022 10:30am Start: 09-24-2021 End: 03-31-2022 azithromycin 250 mg oral tablet (17 sources) Macrolide Antimicrobial Start: 09-14-2021 Azithromycin 250 MG Oral Tablet TAKE 2 TABLETS BY MOUTH ON DAY 1, AND THEN TAKE 1 TABLET BY MOUTH ONCE A DAY ON DAY 2 THROUGH DAY 5 Quantity: 6 Refills: 0 Ordered: 14-Sep-2021 DO Start : 14-Sep-2021 Active biotin 10 mg oral capsule (20 sources) Start: 05-16-2018 End: 01-30-2019 Biotin 10,000 mcg capsule Discontinued ug PO 0 May 16, 2018 12:00am January 30, 2019 8:57am Start: 05-16-2018 End: 01-30-2019 Start: 05-16-2018 End: 01-30-2019 Biotin Discontinued MCG PO S [id number] 12:00am January 30, 2019 8:57am bisacodyl 5 mg delayed release oral tablet (20 sources) Stimulant Laxative Start: 07-27-2021 Bisacodyl E C 5 MG Oral Tablet Delayed Release Quantity: 4 Refills: 0 Ordered: 27-Jul-2021 DO Start : 27-Jul-2021 Active Start: 07-27-2021 End: 07-30-2021 take [id number] tablet by mouth once Bisacodyl 5 mg tablet,delayed release (DR/EC) Discontinued 5 mg PO ONCE 4 0 July 27, 2021 1:00am July 30, 2021 6:08pm was to take 07/28 @ 1400 Start: 07-27-2021 End: 07-30-2021 carvedilol 6.25 mg oral tablet (20 sources) alpha-Adrenergic Celio, beta-Adrenergic Celio Start: 10-16-2023 End: 03-24-2025 take 1 tablet by mouth twice daily at mealtime Carvedilol (Coreg) 6.25 mg tablet Discontinued 6.25 mg PO TWICE A DAY 60 November 19, 2024 3:43pm March 11, 2025 3:19pm blood pressure must administer with a meal/food clindamycin 300 mg oral capsule (20 sources) Lincosamide Antibacterial Start: 03-07-2023 End: 11-20-2023 take 1 capsule by mouth four times daily clindamycin (CLEOCIN) 300 mg capsule Indications: Pain in lower jaw Take 1 capsule by mouth four times daily. 40 capsule 03/07/2023 11/20/2023 Discontinued Comment on above: Take 1 capsule by [facility] four times daily. clopidogrel 75 mg oral tablet (20 sources) [id number] Platelet Inhibitor Start: 08-21-2015 End: 07-26-2023 take 1 tablet by mouth once daily Clopidogrel 75 mg tablet Discontinued 75 mg PO DAILY 90 3 May 26, 2022 9:53am February 22, 2023 11:45am heart Comment on above: Take 75 mg by mouth once daily. colestipol hydrochloride 1000 mg oral tablet (20 sources) Bile Acid Sequestrant Start: 09-24-2021 End: 09-08-2022 take 1 tablet by mouth once daily Colestipol 1 gram tablet Discontinued 0 .ROUTE .COMPLEX 30 2 April 04, 2022 12:10pm May 04, 2022 11:18am Take 1 tablet by mouth once daily Start: 09-24-2021 End: 01-31-2024 Colestipol (Colestid) 1 gram tablet Discontinued 1 g PO TWICE A DAY October 16, 2023 1:00am January 31, 2024 1:00pm cholesterol Comment on above: Take 1 g by mouth tw ice daily. dexamethasone 6 mg oral tablet (1 source) Corticosteroid Start: End: take 1 tablet by mouth once daily at breakfast dexAMETHasone (DECADRON) 6 mg tablet Indications: COVID-19 , Acute cough Take 1 tablet by mouth daily with breakfast for 7 days. 7 tablet 09/13/2023 09/20/2023 diclofenac sodium 0.01 mg/mg topical gel (20 sources) Nonsteroidal Anti-inflammatory Drug Start: 022 End: Diclofenac Sodium 1 % External Gel APPLY 2 GRAMS TOPICALLY TO AFFECTED AREA 4 TIMES DAILY Quantity: 200 Refills: 0 Ordered: 27-Oct-2021 DO Start : 27-Oct-2021 Active Comment on above: Apply 2 g to affecte d area four times daily. 0.4 ml enoxaparin sodium 100 mg/ml prefilled syringe (1 source) Low Molecular Weight Heparin Start: End: enoxaparin (LOVENOX) syringe 40 mg famotidine 20 mg oral tablet (20 sources) Histamine-2 Receptor Antagonist Start: End: take 1 tablet by mouth once daily Famotidine 20 mg tablet Discontinued 20 mg PO DAILY September 09, 2024 9:58am March 11, 2025 3:14pm Start: 06-13-2023 End: 06-19-2023 take 1 tablet by mouth once daily Famotidine Discontinued 0 .ROUTE .COMPLEX June 13, 2023 12:53pm June 19, 2023 4:07pm Take 1 tablet by mouth once daily Start: 06-13-2023 End: 06-19-2023 take 1 tablet by mouth once daily Famotidine Discontinued 0 .ROUTE .COMPLEX June 13, 2023 11:53am June 19, 2023 3:07pm Take 1 tablet by mouth once daily Start: 05-26-2022 End: 10-16-2023 take 1 tablet by mouth once daily Famotidine 20 mg tablet Discontinued 0 .ROUTE .COMPLEX June 19, 2023 4:06pm October 16, 2023 3:49pm Take 1 tablet by mouth once daily Start: 07-21-2021 End: 08-25-2021 Start: 04-28-2021 End: 07-26-2023 take 1 tablet by mouth twice daily Famotidine 20 mg tablet Discontinued 20 mg PO TWICE A DAY July 21, 2021 1:00am August 25, 2021 11:33am acid reflux gabapentin 300 mg oral capsule (20 sources) Anti-epileptic Agent Start: 04-15-2020 End: 04-28-2021 Gabapentin 300 mg capsule Discontinued PO April 15, 2020 12:00am April 28, 2021 9:52am Start: 04-15-2020 End: 04-28-2021 Start: 10-26-2017 End: 05-16-2018 take 1 capsule by mouth at bedtime Gabapentin 100 mg capsule Discontinued 100 mg PO AT BEDTIME October 26, 2017 1:00am May 16, 2018 2:33pm Start: 10-26-2017 End: 05-16-2018 hydroCHLOROthiazide 25 mg oral tablet (20 sources) Thiazide Diuretic Start: 05-26-2022 hydroCHLOROthiazide 25 MG Oral Tablet Quantity: 90 Refills: 0 Ordered: 26-May-2022 DO Start : 26-May-2022 Active Start: 01-02-2017 End: 04-12-2023 take 1 tablet by mouth once daily Hydrochlorothiazide 25 mg tablet Discontinued 25 mg PO daily 90 3 May 26, 2022 9:54am April 12, 2023 11:36am water pilll Start: 10-08-2015 End: 08-28-2017 take 1 capsule by mouth once daily Hydrochlorothiazide 12.5 MG capsule Discontinued 12.5 mg PO DAILY October 08, 2015 1:00am August 28, 2017 3:26pm Comment on above: Take 1 tablet by shira th once daily. 2 ml ketorolac tromethamine 30 mg/ml injection (1 source) Nonsteroidal Anti-inflammatory Drug, Cyclooxygenase Inhibitor Start: 01-12-2023 End: 01-12-2023 keTORolac 30 mg injection (Toradol) Start: 01-12-2023 End: 01-12-2023 keTORolac 30 mg injection (T oradol) ammonium lactate 120 mg/ml topical cream (2 sources) Start: 07-05-2023 End: 07-04-2024 ammonium lactate (AMLACTIN) 12 % cream Indications: Left foot pain , Callus of foot Apply topically 2 (two) times a day Apply to toes twice per day . 385 g 0 07/05/2023 07/26/2023 Discontinued (Patient's Request) lidocaine 0.04 mg/mg medicated patch (20 sources) Antiarrhythmic, Amide Local Anesthetic Start: 01-12-2023 End: 11-20-2023 lidocaine (SALONPAS) 4 % patch Indications: Chronic right-sided low back pain, unspecified whether sciatica present Apply 1 application as directed once daily. 10 Patch 01/12/2023 11/20/2023 Discontinued Comment on above: Apply 1 application as directed once daily. meloxicam 15 mg oral tablet (20 sources) Nonsteroidal Anti-inflammatory Drug Start: 12-21-2023 End: 03-20-2024 take 1 tablet by mouth once daily Meloxicam 15 mg tablet Discontinued 15 mg PO DAILY January 04, 2024 12:00am January 31, 2024 12:59pm Start: 03-29-2023 End: 04-28-2023 take 1 tablet by mouth once daily at mealtime meloxicam (MOBIC) 15 mg tablet Indications: Generalized pain Take 1 tablet by mouth once daily. With food. 30 tablet 5 03/29/2023 04/28/2023 Active Start: 04-28-2021 End: 07-03-2021 take 2 tablets by mouth once daily Meloxicam 7.5 mg tablet Discontinued 15 mg PO DAILY April 28, 2021 12:00am July 03, 2021 11:24am . Start: 04-28-2021 End: 07-03-2021 Start: 01-14-2021 End: 07-08-2021 take 1 tablet by mouth once daily meloxicam (MOBIC) 15 mg tablet Take 1 tablet by mouth once daily. 30 tablet 1 01/14/2021 07/08/2021 Discontinued take 1 tablet by shira th once daily meloxicam (MOBIC) 7.5 MG tablet Take 7.5 mg by mouth daily . 0 Active Comment on above: Take 1 tablet by shira th once daily. With food. mesalamine 400 mg delayed release oral tablet (20 sources) Aminosalicylate Start: 10-16-19 End: 11-13-19 take 400 mg by mouth once daily in the morning Mesalamine Discontinued 400 MG PO EVERY MORNING October 16, 2023 1:00am November 13, 2023 6:54pm Start: 07-03-2021 End: 11-20-2023 take 1 capsule by mouth twice daily Mesalamine 400 mg capsule (with del rel tablets) Discontinued 0 .ROUTE .COMPLEX 60 3 March 21, 2022 2:27pm March 31, 2022 10:29am Take 1 capsule by mouth twice daily Comment on above: Take 1 capsule by mo ut twice daily. Take 1 capsule by mo [facility] two times a day. Mesalamine 400 mg capsule,delayed release(DR/EC) (8 sources) Start: 10-16-2023 End: 11-13-2023 take 1 capsule by mouth once daily in the morning Mesalamine 400 mg capsule,delayed release(DR/EC) Discontinued 400 mg PO EVERY MORNING October 16, 2023 1:00am November 13, 2023 6:54pm metoprolol tartrate 25 mg oral tablet (20 sources) beta-Adrenergic Celio Start: 11-13-2023 End: 11-29-2023 take 1 tablet by mouth every twelve hours Metoprolol Tartrate 25 mg tablet Discontinued 25 mg PO Q12H November 13, 2023 1:00am November 29, 2023 1:59pm blood pressure Start: 10-16-2023 End: 10-16-2023 take 2 tablets by mouth once daily Metoprolol Tartrate 25 mg tablet Discontinued 50 mg PO DAILY October 16, 2023 3:48pm October 16, 2023 3:54pm blood pressure Start: 10-16-2023 End: 10-16-2023 take 50 mg by mouth once daily Metoprolol Tartrate Dis continued 50 MG PO DAILY October 16, 2023 3:48pm October 16, 2023 3:54pm Start: 09-08-2022 End: 10-16-2023 take 1 tablet by mouth twice daily Metoprolol Tartrate 25 mg tablet Discontinued 25 mg PO TWICE A DAY 180 3 August 01, 2023 2:21pm October 16, 2023 3:50pm blood pressure Start: 05-30-2022 Metoprolol Tar trate 25 MG Oral Tablet Quantity: 90 Refills: 0 Ordered: 30-May-2022 DO Start : 30-May-2022 Active Start: 04-23-2022 take 1 tablet by shira th every twenty-four hours Metoprolol Succinate ER 50 MG Oral Tablet Extended Release 24 Hour Quantity: 30 Refills: 0 Ordered: 23-Apr-2022 DO Start : 23-Apr-2022 Active Start: 11-29-2021 End: 09-08-2022 take 2 tablets by mouth once daily Metoprolol Tartrate 25 mg tablet Discontinued 50 mg PO DAILY May 26, 2022 9:54am September 08, 2022 12:45pm blood pressure Start: 11-29-2021 End: 09-08-2022 take 50 mg by mouth once daily Metoprolol Tartrate Dis continued 50 MG PO DAILY May 26, 2022 8:54am September 08, 2022 11:45am Start: 04-28-2021 End: 11-29-2021 take 2 tablets by mouth twice daily Metoprolol Tartrate 25 mg tablet Discontinued 50 mg PO TWICE A DAY April 28, 2021 12:00am November 29, 2021 4:24pm blood pressure Start: 04-28-2021 End: 10-16-2023 Start: 04-28-2021 End: 11-29-2021 take 50 mg by mouth twice daily Metoprolol Tartrate Di scontinued 50 MG PO TWICE A DAY April 28, 2021 12:00am November 29, 2021 4:24pm Start: 04-18-2021 End: 05-21-2021 take 1 tablet by mouth twice daily metoprolol tartrate (LOPRESSOR) 25 MG tablet Take 1 (one) tablet (25 mg total) by mouth 2 (two) times a day . 60 tablet 0 04/21/2021 04/28/2021 Discontinued Start: 02-26-2020 End: 04-28-2021 take 1 tablet by mouth once daily Metoprolol Succinate 50 mg tablet extended release 24 hr Discontinued 50 mg PO DAILY March 01, 2021 10:14am April 28, 2021 9:49am Start: 02-26-2020 End: 04-28-2021 Start: 01-17-2019 End: 02-05-2020 take 1 tablet by mouth once daily Metoprolol Succinate 50 mg tablet extended release 24 hr Discontinued 50 mg PO DAILY 90 January 30, 2019 9:02am February 05, 2020 10:18am Start: 01-17-2019 End: 02-05-2020 Start: 10-16-2017 End: 10-26-2017 Metoprolol Tartrate 25 mg ta blet Discontinued 0 PO TWICE A DAY October 16, 2017 1:00am October 26, 2017 12:41pm 25mg. 1 1/2 tablets PO BID Start: 10-16-2017 End: 10-26-2017 Start: 10-08-2015 End: 08-28-2017 Metoprolol Tartrate 50 MG ta blet Discontinued 12.5 mg PO TWICE A DAY October 08, 2015 5:16pm August 28, 2017 3:23pm Start: 08-21-2015 End: 10-08-2015 take 1 tablet by mouth twice daily Metoprolol Tartrate 50 MG tablet Discontinued 50 mg PO TWICE A DAY 60 0 August 21, 2015 1:00am October 08, 2015 5:16pm Start: 08-21-2015 End: 08-28-2017 take 12.5 mg by mouth twice daily Metoprolol Tartrate Discontinued 12.5 MG PO TWICE A DAY October 08, 2015 4:16pm August 28, 2017 2:23pm Start: 08-19-2015 End: 08-21-2015 take 1 tablet by mouth once daily Metoprolol Succinate 50 MG tablet Discontinued 50 mg PO DAILY August 19, 2015 1:00am August 21, 2015 1:16pm Start: 08-19-2015 End: 08-21-2015 End: 10-31-2023 take 1 tablet by mouth once daily metoprolol tartrate, short acting, (LOPRESSOR) 50 mg tablet Take 50 mg by mouth once daily. 10/31/2023 Discontinued Comment on above: Take 50 mg by mouth once daily. Multivitamin 1 EACH tablet (8 sources) Start: 08-19-2015 End: 02-22-2023 Multivitamin 1 EACH tablet Discontinued 1 NMA PO DAILY August 19, 2015 1:00am February 22, 2023 11:46am supplement Start: 08-19-2015 End: 02-22-2023 Multivitamin 1 EACH tablet D iscontinued 1 NMA PO DAILY August 19, 2015 1:00am February 22, 2023 11:46am Multivitamin preparation (20 sources) Start: 02-22-2023 End: 10-16-2023 take 1 tablet by mouth once daily Multivitamin Discontinued 1 TABLET PO DAILY February 22, 2023 11:44am October 16, 2023 3:49pm Start: 02-22-2023 End: 10-16-2023 take 1 tablet by mouth once daily Multivitamin Discontinued 1 TABLET PO DAILY February 22, 2023 10:44am October 16, 2023 2:49pm Start: 02-22-2023 take 1 tablet by shira th once daily Multivitamin Active 1 TABLET PO DAILY February 22, 2023 10:44am Start: 02-22-2023 take 1 tablet by shira th once daily Multivitamin Active 1 TABLET PO DAILY February 22, 2023 11:44am Start: 08-19-2015 Multivitamin A ctive 1 EACH PO DAILY August 19, 2015 3:26pm Start: 08-19-2015 End: 02-22-2023 Multivitamin Discontinued 1 EACH PO DAILY August 19, 2015 12:00am February 22, 2023 10:46am Start: 08-19-2015 End: 02-22-2023 Multivitamin Discontinued 1 EACH PO DAILY August 19, 2015 1:00am February 22, 2023 11:46am Start: 08-19-2015 Multivitamin A ctive 1 EACH PO DAILY August 19, 2015 12:00am Start: 08-19-2015 Multivitamin A ctive 1 EACH PO DAILY August 19, 2015 1:00am Multivitamin tablet (8 sources) Start: 02-22-2023 End: 10-16-2023 Multivitamin tablet Disconti nued 1 {tbl} PO DAILY February 22, 2023 11:44am October 16, 2023 3:49pm supplement Start: 02-22-2023 End: 10-16-2023 Multivitamin tablet Disconti nued 1 {tbl} PO DAILY February 22, 2023 11:44am October 16, 2023 3:49pm naloxone (NARCAN) injection 0.1 mg (1 source) Start: 04-18-2021 End: 04-21-2021 naloxone (NARCAN) injection 0.1 mg nitroglycerin 0.4 mg sublingual tablet (20 sources) Nitrate Vasodilator Start: 05-26-2021 End: 10-16-2023 Nitroglycerin 0.4 mg tablet, sublingual Discontinued 0.4 mg SL every 5 to 15 minutes as needed for chest pain 90 3 May 26, 2021 12:00am October 16, 2023 3:49pm do not exceed 3 doses per episode Start: 05-26-2021 End: 10-16-2023 Start: 05-26-2021 End: 10-16-2023 Nitroglycerin Discontinued 0 .4 MG SL every 5 to 15 minutes May 26, 2021 12:00am October 16, 2023 3:49pm do not exceed 3 doses per episode Start: 04-18-2021 End: 04-21-2021 nitroGLYCERIN (NITROSTAT) SL tablet 0.4 mg olopatadine 2 mg/ml ophthalmic solution (20 sources) Histamine-1 Receptor Inhibitor Start: 11-01-2021 End: 03-07-2023 take 1 drop(s) into the eye(s) once daily Olopatadine (PATADAY ONCE DAILY RELIEF) 0.2 % drop Indications: Itchy eyes Use 1 Drop in both eyes once daily. 5 mL 3 11/01/2021 03/07/2023 Discontinued Start: 11-01-2021 take 1 drop(s) into the eye(s) once daily Olopatadine HCl - 0.2 % Ophthalmic Solution INSTILL 1 DROP INTO EACH EYE ONCE DAILY Quantity: 3 Refills: 0 Ordered: 01-Nov-2021 DO Start : 01-Nov-2021 Active Comment on above: Use 1 Drop in both e yes once daily. omeprazole 20 mg delayed release oral capsule (20 sources) Proton Pump Inhibitor Start: 04-03-2018 End: 05-16-2018 Omeprazole 20 mg capsule,delayed release(DR/EC) Discontinued PO 180 90 0 April 03, 2018 12:00am May 16, 2018 2:33pm Start: 04-03-2018 End: 05-16-2018 Start: 08-19-2015 End: 04-03-2018 take 1 capsule by mouth once daily Omeprazole 40 MG capsule Discontinued 40 mg PO DAILY August 19, 2015 1:00am April 03, 2018 2:56pm ondansetron 4 mg disintegrating oral tablet (10 sources) Serotonin-3 Receptor Antagonist Start: 01-06-2024 End: 01-31-2024 take 1 tablet by mouth every eight hours as needed for nausea and vomiting Ondansetron 4 mg tablet,disintegrating Discontinued 4 mg PO Q8H as needed for nausea and vomiting January 06, 2024 12:00am January 31, 2024 1:00pm Start: 04-19-2021 End: 04-21-2021 take 4 mg intravenously every six hours as needed for nausea and vomiting ondansetron (ZOFRAN) injection 4 mg 24 hr oxybutynin chloride 5 mg extended release oral tablet (20 sources) Cholinergic Muscarinic Antagonist Start: 10-31-2023 End: 06-10-2024 take 1 tablet by mouth once daily oxybutynin XL (DITROPAN XL) 5 mg 24 hr tablet Indications: Urgency of urination Take 1 tablet by mouth once daily. 30 tablet 2 10/31/2023 06/10/2024 Discontinued (Course of therapy completed) Comment on above: Take 1 tablet by shira once daily. pantoprazole 40 mg delayed release oral tablet (20 sources) Proton Pump Inhibitor Start: 05-31-2021 End: 07-26-2023 take 1 tablet by mouth once daily Pantoprazole 40 mg tablet,delayed release (DR/EC) Discontinued 40 mg PO DAILY 30 December 01, 2021 3:02pm May 04, 2022 11:03am Start: 10-16-2017 End: 04-03-2018 take 1 tablet by mouth twice daily Pantoprazole 40 mg tablet,delayed release (DR/EC) Discontinued 0 PO TWICE A DAY October 16, 2017 1:00am April 03, 2018 2:57pm 40mg, 2 tablets PO BID Start: 10-16-2017 End: 04-03-2018 PARoxetine hydrochloride 10 mg oral tablet (20 sources) Serotonin Reuptake Inhibitor Start: 01-11-2024 End: 07-09-2024 take 1 tablet by mouth once daily PARoxetine (PAXIL) 10 mg tablet Indications: Anxiety with depression Take 1 tablet by mouth once daily. 30 tablet 5 01/11/2024 01/12/2024 Discontinued (Patient chooses alternative therapy) Start: 07-02-2022 PARoxetine HCl - 10 MG Oral Tablet Quantity: 30 Refills: 0 Ordered: 02-Jul-2022 DO Start : 02-Jul-2022 Active Start: 05-05-2022 End: 03-07-2023 take 1 tablet by mouth once daily Paroxetine Hcl 10 mg tablet Discontinued 10 mg PO DAILY June 22, 2022 12:00am September 08, 2022 11:49am Comment on above: Take 1 tablet by shira th once daily. perflutren lipid microspheres (DEFINITY) 0.143 mg/mL solution 0-10 mL of mixture (1 source) Start: 04-20-2021 End: 04-21-2021 perflutren lipid microspheres (DEFINITY) 0.143 mg/mL solution 0-10 mL of mixture polyethylene glycol 3350 64375 mg powder for oral solution (20 sources) Osmotic Laxative Start: 07-27-2021 End: 07-30-2021 Polyethylene Glycol 3350 (Miralax) 17 gram/dose powder Discontinued 17 g PO DAILY 238 0 July 27, 2021 1:00am July 30, 2021 6:08pm Combine entire bottle with 64 ounces of gatorade/powerade/pedial ite. Set two cups aside for the next day. Start drinking at 4:00 pm the day before your procedure at a rate of one cup every 15-30 minutes. Three hours before you arrive at the hospital drink the last two cups. Two hours before you arrive at the hospital stop taking everything in by mouth. potassium chloride 20 meq extended release oral tablet (20 sources) Start: 05-26-2022 Potassium Chloride ER 20 MEQ Oral Tablet Extended Release Quantity: 90 Refills: 0 Ordered: 26-May-2022 DO Start : 26-May-2022 Active Start: 04-23-2022 Potassium Chlo ride Libra ER 20 MEQ Oral Tablet Extended Release Quantity: 30 Refills: 0 Ordered: 23-Apr-2022 DO Start : 23-Apr-2022 Active Start: 04-21-2021 End: 07-26-2023 take 1 tablet by mouth once daily potassium chloride SA (K-DUR,KLOR-CON) 20 MEQ tablet Take 1 (one) tablet (20 mEq total) by mouth daily . 30 tablet 04/28/2021 07/26/2023 Discontinued (Patient's Request) Start: 04-20-2021 potassium chlo ride SA (K-DUR,KLOR-CON) CR tablet 40 mEq Start: 04-18-2021 End: 04-20-2021 potassium chloride SA (K-DUR,KLOR-CON) CR tablet 20 mEq Start: 04-03-2018 End: 11-29-2023 take 1 tablet by mouth once daily Potassium Chloride 20 mEq tablet extended release Discontinued 20 meq PO DAILY 90 3 May 26, 2022 9:54am November 29, 2023 1:44pm supplement Take 1 tablet by mouth once daily Start: 04-03-2018 End: 10-16-2018 Potassium Chloride 20 mEq ta blet extended release Discontinued PO 90 90 0 April 03, 2018 12:00am October 16, 2018 2:39pm Start: 10-08-2015 End: 04-03-2018 take 1 tablet by mouth once daily Potassium Chloride 10 MEQ tablet Discontinued 10 meq PO DAILY October 08, 2015 1:00am April 03, 2018 2:55pm End: 03-07-2023 potassium chloride SR (MICRO -K) 10 mEq CR capsule Take 20 mEq by mouth once daily. 03/07/2023 Discontinued End: 04-21-2021 potassium chloride SA (K-DUR,KLOR-CON) 20 MEQ tablet Take 20 mEq by mouth 2 (two) times a day . 0 04/21/2021 Discontinued (Reorder) Comment on above: Take 20 mEq by mouth once daily. 12 hr ranolazine 500 mg extended release oral tablet (20 sources) Anti-anginal Start: 05-04-2022 End: 06-22-2022 take 1 tablet by mouth twice daily Ranolazine 500 mg tablet extended release 12 hr Discontinued 500 mg PO TWICE A DAY 60 May 04, 2022 12:00am June 22, 2022 1:16pm Start: 05-04-2022 End: 06-22-2022 Ranolazine ER 500 MG Oral Ta blet Extended Release 12 Hour Quantity: 60 Refills: 0 Ordered: 31-May-2022 DO Start : 31-May-2022 Active 1000 ml sodium chloride 9 mg /ml injection (3 sources) Start: 04-19-2021 End: 04-19-2021 sodium chloride 0.9% (NS) js james 250 mL Start: 04-19-2021 End: 04-19-2021 take 75 mL intravenously every hour 75 mL/hr, Intravenous, Continuous, Starting on Mon04/19/21 at 1545, For 8 hours Start: 04-18-2021 End: 04-21-2021 sodium chloride (PF) (NS) fl [facility] 5 mL tamsulosin hydrochloride 0.4 mg oral capsule (20 sources) alpha-Adrenergic Celio Start: 10-31-2023 End: 06-10-2024 take 1 capsule by mouth once daily Tamsulosin 0.4 mg capsule Discontinued 0.4 mg PO DAILY November 13, 2023 1:00am November 29, 2023 1:44pm prostate Comment on above: Take 1 capsule by mo [facility] daily at bedtime. ticagrelor 90 mg oral tablet (20 sources) Start: 04-19-2021 End: 07-03-2021 take 1 tablet by mouth twice daily Ticagrelor (Brilinta) 90 mg tablet Discontinued 90 mg PO TWICE A DAY April 28, 2021 12:00am July 03, 2021 11:13am blood thinner 250 ml tirofiban 0.05 mg/ml injection (1 source) Platelet Aggregation Inhibitor Start: 04-19-2021 End: 04-19-2021 tirofiban (AGGRASTAT) 12.5 mg (50 mcg/mL) in 250 mL sodium chloride (NS) bag tiZANidine 4 mg oral tablet (20 sources) Central alpha-2 Adrenergic Agonist Start: 04-18-2021 End: 04-21-2021 take 4 mg by mouth once daily 4 mg, Oral, Nightly, First dose on 04/18/21 at 0130 Start: 10-28-2020 End: 12-10-2021 take 1 tablet by mouth at bedtime Tizanidine 4 mg tablet Discontinued 4 mg PO AT BEDTIME April 28, 2021 12:00am May 26, 2021 1:25pm End: 04-28-2021 take 1 capsule by mouth once daily tiZANidine (ZANAFLEX) 4 MG capsule Take 4 mg by mouth nightly . 0 04/28/2021 Discontinued Comment on above: [facility] traMADol hydrochloride 50 mg oral tablet (6 sources) Opioid Agonist Start: 04-18-20 End: 04-28-20 take 1 tablet by mouth every four hours as needed 50 mg, Oral, Every 4 hours PRN, moderate to severe pain, Starting on 04/18/21 at 0033 1 ml triamcinolone acetonide 40 mg/ml injection (3 sources) Corticosteroid Start: 07-26-20 End: 07-27-20 triamcinolone acetonide (KENALOG-40) injection 40 mg Start: 01-12-2023 End: 01-12-2023 triamcinolone acetonide 40 m g injection (KeNALog 40) vancomycin 250 mg oral capsule (20 sources) Glycopeptide Antibacterial Start: 08-24-2021 End: 12-10-2021 take 1 capsule by mouth every six hours Vancomycin 250 mg capsule Discontinued 250 mg PO EVERY 6 HOURS 120 30 0 August 24, 2021 1:00am September 22, 2021 1:00am September 23, 2021 1:01am Start: 08-17-2021 take 1 capsule by [facility] four times daily Vancomycin HCl - 125 MG Oral Capsule TAKE 1 CAPSULE BY MOUTH 4 TIMES DAILY FOR 11 DAYS Quantity: 44 Refills: 0 Ordered: 17-Aug-2021 DO Start : 17-Aug-2021 Active Comment on above: Take 1 capsule by [facility] every 6 hours. 24 hr venlafaxine 37.5 mg extended release oral capsule (20 sources) Serotonin and Norepinephrine Reuptake Inhibitor Start: 10-16-19 End: 11-13-19 take 1 capsule by mouth every twenty-four hours Venlafaxine 37.5 mg capsule,extended release 24hr Discontinued mg PO October 16, 2023 1:00am November 13, 2023 6:54pm Start: 10-16-2023 End: 11-13-2023 Venlafaxine Discontinued MG PO October 16, 2023 1:00am November 13, 2023 6:54pm Start: 03-07-2023 End: 11-20-2023 take 1 capsule by mouth once daily venlafaxine ER (EFFEXOR XR) 37.5 mg 24 hr capsule Indications: Anxiety with depression , Trouble in sleeping Take 1 capsule by mouth once daily. 90 capsule 1 03/07/2023 11/20/2023 Discontinued Comment on above: Take 1 capsule by [facility] once daily. vitamin e 180 mg oral capsule (8 sources) Start: 08-30-2024 End: 09-25-2024 take 1 capsule by mouth once daily Vitamin E (Dl, Acetate) 180 mg (400 unit) capsule Discontinued 180 mg PO daily August 30, 2024 1:00am September 25, 2024 12:28pm (4 sources) Start: 10-16-2023 End: 11-13-2023 Start: 06-13-2023 End: 06-19-2023 Start: 02-22-2023 End: 10-16-2023 Start: 08-19-2015 End: 02-22-2023 Problems Active Problems Problem Classification Problem Date Documented Da te Episodic/Chronic Acute cerebrovascular disease (9 sources) Cerebrovascular accident; Translations: [Cerebral infarction, unspecified] Onset: 5 01-04-2024 Chronic Acute posthemorrhagic anemia (20 sources) Acute posthemorrhagic anemia; Translations: [Acute posthemorrhagic anemia] 07-01-2021 Episodic Anxiety disorders (3 sources) Mixed anxiety and depressive disorder; Translations: [Other specified anxiety disorders] Chronic Calculus of urinary tract (3 sources) Kidney stone; Translations: [Calculus of kidney] 10-26-2023 Episodic Cardiac dysrhythmias (20 sources) Palpitations; Translations: [Palpitations] Episodic Complications of surgical procedures or medical care (20 sources) Postoperative hypothyroidism; Translations: [Postprocedural hypothyroidism] Onset: 2 12-25-2013 Chronic Conditions associated with dizziness or vertigo (1 source) Dizziness; Translations: [Dizziness and giddiness] 03-29-2023 Episodic Coronary atherosclerosis and other heart disease (20 sources) Atherosclerotic heart disease of [place] coronary artery without angina pectoris; Translations: [Coronary atherosclerosis of unspecified type of vessel, [place] or graft] Onset: 7 Resolved: 4 Chronic Deficiency and other anemia (20 sources) Iron deficiency anemia due to blood loss; Translations: [Iron deficiency anemia secondary to blood loss (chronic)] Onset: 5 Resolved: 7 01-06-2022 Chronic Deficiency and other anemia (8 sources) Iron deficiency anemia secondary to blood loss (chronic); Translations: [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 Delirium, dementia, and amnestic and other cognitive disorders (11 sources) Unspecified dementia without behavioral disturbance; Translations: [Dementia] Onset: 4 01-12-2024 Chronic Disorders of lipid metabolism (20 sources) Hyperlipidemia; Translations: [Hyperlipidemia, unspecified] Onset: 7 09-23-2016 Chronic Disorders of teeth and jaw (1 source) Jaw pain; Translations: [Jaw pain] Episodic Diverticulosis and diverticulitis (2 sources) Diverticulosis of colon; Translations: [Diverticulosis of large intestine without perforation or abscess without bleeding] Onset: 1 05-28-2021 Chronic E Codes: Fall (20 sources) Fall; Translations: [Unspecified fall, initial encounter] Onset: 3 Episodic Epilepsy; convulsions (1 source) Unspecified convulsions; Translations: [Seizure (HCC)] Onset: 4 Episodic Esophageal disorders (20 sources) Gastroesophageal reflux disease; Translations: [Gastro-esophageal reflux disease without esophagitis] Onset: 5 02-24-2014 Chronic Essential hypertension (20 sources) Essential hypertension; Translations: [Essential (primary) hypertension] Onset: 1 Resolved: 5 Chronic Gastroduodenal ulcer (except hemorrhage) (20 sources) Peptic ulcer; Translations: [Peptic ulcer, site unspecified, unspecified as acute or chronic, without hemorrhage or perforation] 07-28-2020 Chronic Gastrointestinal hemorrhage (20 sources) Gastrointestinal hemorrhage; Translations: [Gastrointestinal hemorrhage, unspecified] Onset: 1 Episodic Genitourinary symptoms and ill-defined conditions (11 sources) Urinary incontinence; Translations: [Unspecified urinary incontinence] Onset: 5 02-14-2024 Chronic Genitourinary symptoms and ill-defined conditions (11 sources) Urine looks dark; Translations: [Other abnormal findings in urine] 03-29-2023 Episodic Gout and other crystal arthropathies (2 sources) 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; Translations: [Other specified crystal arthropathies, unspecified site] Onset: 5 12-24-2024 Chronic Headache; including migraine (20 sources) Migraine variants; Translations: [Other migraine, not intractable, without status migrainosus] Onset: 3 11-18-2012 Chronic Headache; including migraine (20 sources) Posttraumatic headache; Translations: [Post-traumatic headache, unspecified, not intractable] Onset: 4 10-02-2013 Episodic Heart valve disorders (20 sources) Aortic valve regurgitation; Translations: [Nonrheumatic aortic (valve) insufficiency] Chronic Comment on above: mild Heart valve disorders (18 sources) Systolic murmur; Translations: [Cardiac murmur, unspecified] 11-13-2023 Episodic Intestinal infection (20 sources) Clostridium difficile colitis; Translations: [Enterocolitis due to Clostridium difficile, not specified as recurrent] Episodic Intracranial injury (8 sources) Concussion with no loss of consciousness; Translations: [Concussion without loss of consciousness, initial encounter] 04-20-2023 Episodic Malaise and fatigue (20 sources) Fatigue; Translations: [Other fatigue] Episodic Miscellaneous mental health disorders (2 sources) Chronic insomnia; Translations: [Psychophysiologic insomnia] Chronic Mood disorders (20 sources) Depressive disorder; Translations: [Other specified depressive episodes] Onset: 7 01-23-2007 Chronic Noninfectious gastroenteritis (20 sources) Colitis; Translations: [Noninfective gastroenteritis and colitis, unspecified] 03-30-2022 Episodic Nonspecific chest pain (20 sources) Chest pain; Translations: [Chest pain, unspecified] Onset: 1 04-18-2021 Episodic Nutritional deficiencies (20 sources) Vitamin D deficiency; Translations: [Vitamin D deficiency, unspecified] Onset: 6 09-06-2021 Chronic Occlusion or stenosis of precerebral arteries (20 sources) Bilateral stenosis of carotid arteries; Translations: [Occlusion and stenosis of bilateral carotid arteries] Onset: 4 09-02-2020 Chronic Osteoarthritis (20 sources) Osteoarthrosis of the carpometacarpal joint of the thumb; Translations: [Bilateral primary osteoarthritis of first carpometacarpal joints] Onset: 4 Resolved: 7 10-02-2013 Chronic Other acquired deformities (8 sources) Degenerative disorder of musculoskeletal system; Translations: [Other secondary scoliosis, site unspecified] 02-18-2025 Chronic Other acquired deformities (1 source) Other secondary scoliosis, site unspecified; Translations: [Other secondary scoliosis, site unspecified] Onset: Chronic Other aftercare (2 sources) Post-discharge follow-up; Translations: [Encounter for follow-up examination after completed treatment for conditions other than malignant neoplasm] 12-20-2023 Episodic Other aftercare (8 sources) Long-term current use of diuretic; Translations: [Encounter for therapeutic drug level monitoring] 03-23-2023 Episodic Other aftercare (8 sources) Long-term current use of drug therapy; Translations: [Other watermaster (current) drug therapy] 07-28-2020 Episodic Other and ill-defined cerebrovascular disease (1 source) Cerebrovascular disease; Translations: [Cerebrovascular disease, unspecified] 01-12-2024 Chronic Other and ill-defined heart disease (20 sources) Diastolic dysfunction; Translations: [Other ill-defined heart diseases] 10-26-2017 Chronic Other and ill-defined heart disease (20 sources) Ventricular hypertrophy ; Translations: [Cardiomegaly] 10-26-2017 Chronic Comment on above: Left Other bone disease and musculoskeletal deformities (8 sources) Bone density below reference range; Translations: [Disorder of bone density and structure, unspecified] 02-18-2025 Episodic Other bone disease and musculoskeletal deformities (1 source) Disorder of bone density and structure, unspecified; Translations: [Disorder of bone density and structure, unspecified] Onset: 5 Episodic Other circulatory disease (20 sources) Disorder of carotid artery; Translations: [Disorder of arteries and arterioles, unspecified] 02-22-2023 Chronic Other circulatory disease (11 sources) Disorder of arteries and arterioles, unspecified; Translations: [Unspecified disorders of arteries and arterioles] 02-22-2023 Chronic Other circulatory disease (20 sources) Carotid bruit; Translations: [Other specified symptoms and signs involving the circulatory and respiratory systems] 10-26-2017 Episodic Comment on above: Bilateral Other circulatory disease (6 sources) History of cerebrovascular accident; Translations: [Personal history of transient ischemic attack (TIA), and cerebral infarction without residual deficits] 11-27-2023 Episodic Other circulatory disease (1 source) Personal history of transient ischemic attack (TIA), and cerebral infarction without residual deficits; Translations: [Personal history of transient ischemic attack (TIA), and cerebral infarction without residual deficits] Onset: 5 Episodic Other connective tissue disease (9 sources) Impingement syndrome of shoulder region; Translations: [Other affections of shoulder region, not elsewhere classified] Episodic Other connective tissue disease (1 source) Impingement syndrome of left shoulder; Translations: [Impingement syndrome of left shoulder] Onset: 3 Episodic Other connective tissue disease (1 source) Muscle weakness; Translations: [Muscle weakness (generalized)] 03-29-2023 Episodic Other connective tissue disease (4 sources) Pain in left foot; Translations: [Pain in left foot] 05-05-2023 Episodic Other connective tissue disease (2 sources) Pain in left foot; Translations: [Pain in left foot] Onset: 3 Episodic Other connective tissue disease (4 sources) Muscle pain; Translations: [Myalgia, unspecified site] 12-21-2023 Episodic Other connective tissue disease (2 sources) Recurrent falls ; Translations: [Repeated falls] 01-12-2024 Episodic Other connective tissue disease (1 source) Pain of bilateral hands; Translations: [Pain in right hand] 04-15-2021 Episodic Other connective tissue disease (2 sources) Pain in right foot; Translations: [Pain in right foot] 09-19-2024 Episodic Other connective tissue disease (2 sources) Weakness of foot; Translations: [Other symptoms and signs involving the musculoskeletal system] 09-19-2024 Episodic Other connective tissue disease (12 sources) Cramp in lower limb; Translations: [Cramp and spasm] 02-07-2025 Episodic Other gastrointestinal disorders (20 sources) Diarrhea; Translations: [Diarrhea, unspecified] Resolved: 1 10-15-2021 Episodic Other gastrointestinal disorders (9 sources) Diarrhea, unspecified; Translations: [Diarrhea] Episodic Other gastrointestinal disorders (20 sources) History of gastrointestinal bleed; Translations: [Personal history of other diseases of the digestive system] 01-06-2022 Episodic Other gastrointestinal disorders (5 sources) Personal history of other diseases of the digestive system; Translations: [Personal history of other diseases of digestive system] Episodic Other gastrointestinal disorders (20 sources) Dysphagia; Translations: [Dysphagia, unspecified] 03-30-2022 Episodic Other gastrointestinal disorders (3 sources) Dysphagia, unspecified; Translations: [Dysphagia, unspecified] Episodic Other gastrointestinal disorders (19 sources) Abdominal bloating; Translations: [Abdominal distension (gaseous)] 06-22-2022 Episodic Other gastrointestinal disorders (2 sources) Abdominal distension (gaseous); Translations: [Flatulence, eructation, and gas pain] 06-22-2022 Episodic Other injuries and conditions due to external causes (1 source) At risk for falls ; Translations: [History of falling] Episodic Other injuries and conditions due to external causes (2 sources) Injury of head; Translations: [Unspecified injury of head, initial encounter] 04-20-2023 Episodic Other injuries and conditions due to external causes (1 source) Unspecified injury of head, initial encounter; Translations: [Injury of head, initial encounter] Onset: 3 Episodic Other injuries and conditions due to external causes (1 source) Blister; Translations: [Other injury of unspecified body region, initial encounter] 05-12-2023 Episodic Other injuries and conditions due to external causes (7 sources) Abrasion; Translations: [Other injury of unspecified body region, initial encounter] 02-07-2025 Episodic Other injuries and conditions due to external causes (1 source) Encounter for examination and observation following other accident; Translations: [Encounter for examination and observation following other accident] Onset: Episodic Other liver diseases (20 sources) Enzyme level - finding; Translations: [Abnormal serum enzyme level, unspecified] 07-28-2020 Episodic Other lower respiratory disease (20 sources) Dyspnea; Translations: [Shortness of breath] Onset: 1 Resolved: 4 07-21-2021 Episodic Other lower respiratory disease (8 sources) Shortness of breath; Translations: [Shortness of breath] Episodic Other lower respiratory disease (20 sources) Multiple nodules of lung; Translations: [Other nonspecific abnormal finding of lung field] 01-06-2022 Episodic Other lower respiratory disease (5 sources) Other nonspecific abnormal finding of lung field; Translations: [Other nonspecific abnormal finding of lung field] Episodic Other lower respiratory disease (17 sources) Dyspnea on exertion; Translations: [Other forms of dyspnea] 12-07-2022 Episodic Other lower respiratory disease (1 source) Cough; Translations: [Acute cough] 09-13-2023 Episodic Other nervous system disorders (3 sources) Other chronic pain; Translations: [Other chronic pain] Onset: 3 Chronic Other nervous system disorders (4 sources) Neuropathy; Translations: [Polyneuropathy, unspecified] 11-27-2023 Chronic Other nervous system disorders (9 sources) Aphasia; Translations: [Aphasia] 01-05-2024 Chronic Other nervous system disorders (1 source) Aphasia; Translations: [Aphasia] 01-06-2024 Chronic Other nervous system disorders (1 source) Polyneuropathy, unspecified; Translations: [Neuropathy] Onset: 5 Chronic Other nervous system disorders (18 sources) Impairment of balance; Translations: [Other abnormalities of gait and mobility] Episodic Other nervous system disorders (1 source) Unspecified speech disturbances; Translations: [Transient speech disturbance] Onset: 4 Episodic Other nervous system disorders (13 sources) Ataxia; Translations: [Ataxia, unspecified] 11-13-2023 Episodic Other nervous system disorders (15 sources) Abnormal gait; Translations: [Unspecified abnormalities of gait and mobility] Onset: 4 11-13-2023 Episodic Other nervous system disorders (13 sources) Dysmetria; Translations: [Other lack of coordination] 11-13-2023 Episodic Other nervous system disorders (5 sources) Ataxia, unspecified; Translations: [Lack of coordination] 11-13-2023 Episodic Other nervous system disorders (5 sources) Other abnormalities of gait and mobility; Translations: [Other symptoms involving nervous and musculoskeletal systems] 11-13-2023 Episodic Other nervous system disorders (5 sources) Other lack of coordination; Translations: [Lack of coordination] 11-13-2023 Episodic Other nervous system disorders (2 sources) Unspecified abnormalities of gait and mobility; Translations: [Abnormality of gait] 11-13-2023 Episodic Other nervous system disorders (2 sources) Ataxic gait; Translations: [Ataxic gait] 12-21-2023 Episodic Other nervous system disorders (2 sources) Unsteady when standing; Translations: [Unsteadiness on feet] 01-12-2024 Episodic Other non-traumatic joint disorders (9 sources) Shoulder pain; Translations: [Pain in joint, shoulder region] Episodic Other non-traumatic joint disorders (10 sources) Hip pain; Translations: [Pain in joint, pelvic region and thigh] 04-13-2021 Episodic Other non-traumatic joint disorders (1 source) Pain in left shoulder; Translations: [Pain in left shoulder] Onset: 3 Episodic Other non-traumatic joint disorders (1 source) Pain in right hip; Translations: [Pain in right hip] Onset: 3 Episodic Other non-traumatic joint disorders (10 sources) Pain in right knee; Translations: [Pain in joint, lower leg] Onset: 3 04-20-2023 Episodic Other non-traumatic joint disorders (3 sources) Pain in left knee; Translations: [Pain in left knee] Onset: 3 Episodic Other skin disorders (1 source) Foot callus; Translations: [Corns and callosities] 07-05-2023 Episodic Other skin disorders (2 sources) Corns and callosities; Translations: [Corns and callosities] Onset: 3 Episodic Other upper respiratory disease (20 sources) Hoarse; Translations: [Dysphonia] 03-30-2022 Episodic Other upper respiratory disease (17 sources) Adductor spastic dysphonia; Translations: [Other diseases of larynx, not elsewhere classified] Episodic Other upper respiratory infections (11 sources) Upper respiratory infection; Translations: [Acute upper respiratory infection, unspecified] 01-05-2024 Episodic Peripheral and visceral atherosclerosis (20 sources) Ischemic colitis; Translations: [Vascular disorder of intestine, unspecified] Onset: 3 Resolved: 4 Chronic Regional enteritis and ulcerative colitis (20 sources) Colitis; Translations: [Crohn's disease of large intestine without complications] Onset: 3 Resolved: 4 Chronic Residual codes; unclassified (20 sources) Amnesia; Translations: [Other amnesia] 07-20-2006 Episodic Residual codes; unclassified (20 sources) Insomnia; Translations: [Insomnia, unspecified] 07-28-2020 Episodic Residual codes; unclassified (1 source) Generalized aches and pains; Translations: [Pain, unspecified] 03-29-2023 Episodic Residual codes; unclassified (2 sources) Pain, unspecified; Translations: [Pain, unspecified] Onset: 3 Episodic Residual codes; unclassified (5 sources) Other amnesia; Translations: [Memory loss] 11-13-2023 Episodic Residual codes; unclassified (3 sources) Sleep disorder; Translations: [Sleep disorder, unspecified] 06-10-2024 Episodic Spondylosis; intervertebral disc disorders; other back problems (8 sources) Degeneration of lumbar intervertebral disc; Translations: [Degenerative disc disease (DDD) of lumbar region with discogenic back pain and leg pa] 02-17-2025 Chronic Spondylosis; intervertebral disc disorders; other back problems (20 sources) Low back pain; Translations: [Lumbago] Onset: 5 Episodic Superficial injury; contusion (20 sources) Contusion of cheek; Translations: [Contusion of other part of head, initial encounter] Onset: 3 04-20-2023 Episodic Syncope (20 sources) Syncope; Translations: [Syncope and collapse] 08-08-2021 Episodic Thyroid disorders (20 sources) Hypothyroidism; Translations: [Hypothyroidism, unspecified] Onset: 1 Resolved: 7 07-28-2020 Chronic Transient cerebral ischemia (20 sources) Transient cerebral ischemia; Translations: [Transient cerebral ischemic attack, unspecified] 04-28-2021 Chronic Unclassified (2 sources) Low back pain, unspecified; Translations: [Low back pain, unspecified] Onset: 3 Unclassified (8 sources) Unclassified (8 sources) M51.362 - Other intervertebral disc degeneration, lumbar region with discogenic back pain and lower extremity pain Unclassified (1 source) Other intervertebral disc degeneration, lumbar region with discogenic back pain and lower extremity pain; Translations: [Other intervertebral disc degeneration, lumbar region with discogenic back pain and lower extremity pain] Onset: 5 Urinary tract infections (2 sources) Acute cystitis; Translations: [Acute cystitis with hematuria] 03-20-2024 Episodic Viral infection (1 source) Disease caused by 2019-nCoV; Translations: [COVID-19] 09-13-2023 Episodic Past or Other Problems Problem Classification Problem Date Documented Da te Episodic/Chronic Abdominal pain (2 sources) Flank pain; Translations: [Unspecified abdominal pain] Onset: 03-20-2024 03-20-2024 Episodic Coronary atherosclerosis and other heart disease (20 sources) Patient post percutaneous transluminal coronary angioplasty; Translations: [Coronary angioplasty status] Onset: 04-11-2021 Episodic Comment on above: PCI/LAYNE x2 mid LAD a nd Ostial D2 with POBA only 04/19/21;09/01/2015 PCI-BMS @ [facility] LAD Disorders usually diagnosed in infancy, childhood, or adolescence (20 sources) Attention deficit hyperactivity disorder, predominantly inattentive type; Translations: [Other specified behavioral and emotional disorders with onset usually occurring in childhood and adolescence] Onset: 05-25-2007 Resolved: 09-15-2016 09-15-2016 Chronic Other aftercare (20 sources) Patient encounter status; Translations: [Other watermaster (current) drug therapy] Onset: 07-25-2005 Resolved: 07-06-2012 07-28-2020 Episodic Other bone disease and musculoskeletal deformities (20 sources) Osteopenia; Translations: [Other specified disorders of bone density and structure, unspecified site] Onset: 01-25-2012 09-06-2021 Episodic Other connective tissue disease (20 sources) Fibromyalgia; Translations: [Fibromyalgia] Onset: 10-02-2019 10-02-2019 Episodic Other connective tissue disease (20 sources) Tenosynovitis of right radial styloid; Translations: [Radial styloid tenosynovitis [de Quervain]] Onset: 03-26-2014 Resolved: 01-02-2017 01-02-2017 Episodic Other connective tissue disease (3 sources) Other symptoms and signs involving the musculoskeletal system; Translations: [Other musculoskeletal symptoms referable to limbs] Onset: 09-19-2024 11-05-2024 Episodic Other connective tissue disease (1 source) Repeated falls; Translations: [Frequent falls] Onset: 11-05-2024 Episodic Other connective tissue disease (1 source) Pain in right foot; Translations: [Foot pain, right] Onset: 09-19-2024 Episodic Other fractures (20 sources) Closed fracture of cervical spine; Translations: [Fracture of neck, unspecified, initial encounter] Onset: 11-03-2010 Resolved: 09-15-2016 09-15-2016 Episodic Other gastrointestinal disorders (20 sources) Constipation; Translations: [Constipation, unspecified] Resolved: 03-23-2011 03-23-2011 Episodic Other nervous system disorders (1 source) Unsteadiness on feet; Translations: [Unsteadiness] Onset: 11-05-2024 Episodic Other nutritional; endocrine; and metabolic disorders (20 sources) Intestinal disaccharidase deficiency; Translations: [Lactose intolerance, unspecified] Onset: 07-21-2006 Resolved: 09-15-2016 09-15-2016 Chronic Other upper respiratory disease (4 sources) Dysphonia; Translations: [Dysphonia] Onset: 07-11-2022 Episodic Other upper respiratory disease (1 source) Other diseases of vocal cords; Translations: [Other diseases of vocal cords] Onset: 07-11-2022 Episodic Unclassified (1 source) Onset: 05-22-2024 05-22-2024 Results Test Name Value Interpretation Reference Range Facility MR/Darnell 04-15-2025 MR/JOSE [facility] [address], [address] [place] [address] OFFICE VISIT Date of Service: 04/15/25 MR#: [id number] Acct: [id number] Name: BHARTI AKBAR Rep #: [id number] 2 : 1945 Provider: Dr. 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 Is patient in pain?: Yes Allergies albuterol Allergy (Intermediate, Verified 03/11/25 15:12) GI upset cyclobenzaprine (From Flexeril) Allergy (Intermediate, Verified 03/11/25 15:12) mental status change hydrocodone (From Vicodin) Allergy (Intermediate, Verified 03/11/25 15:12) muscle twitching oxycodone Allergy (Intermediate, Verified 03/11/25 15:12) Vomiting amoxicillin Allergy (Mild, Verified 03/11/25 15:12) Swelling clindamycin Allergy (Mild, Verified 03/11/25 15:12) Swelling diatrizoate meglumine Allergy (Mild, Verified 03/11/25 15:12) Itching Tetanus Vaccines and Toxoid Allergy (Mild, Verified 03/11/25 15:12) Hives codeine Adverse Reaction (Intermediate, Verified 03/11/25 15:12) Nausea Vomiting benzonatate (From Tessalon Perles) Adverse Reaction (Mild, Verified 03/11/25 15:12) Vomiting hydrochlorothiazide (From Dyazide) Adverse Reaction (Mild, Verified 03/11/25 15:12) intolerance triamterene (From Dyazide) Adverse Reaction (Mild, Verified 03/11/25 15:12) intolerance erythromycin base Adverse Reaction (Verified 03/11/25 15:12) Nausea Have you fallen in the past year?: Yes [facility] Medical History Urge incontinence Aortic stenosis Gait disturbance Fatigue Lung nodule, multiple Iron deficiency anemia due to chronic blood loss History of GI bleed Diarrhea C. 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 Vision problem Thyroid dysfunction Osteoarthritis Hearing problem Chronic headache GI problem Cataracts, bilateral Seasonal allergies skilled nursing use of drug Ventricular hypertrophy Diastolic dysfunction Aortic insufficiency Family history of premature coronary heart disease Aortic valve disease Nonspecific abnormal serum enzyme levels Peptic ulcer disease Carotid artery bruit Palpitations Angina pectoris Chest pain Insomnia GERD (gastroesophageal reflux disease) Surgical History History of appendectomy History of coronary artery stent placement History of colonoscopy ( 08/2020) History of esophagogastroduodenosc opy (EGD) ( 08/2020) History of hysterectomy History of thyroidectomy Presence of coronary angioplasty implant and graft ( 09/01/15) Family History Mother , Age 76 heart attack Myocardial infarction Heart disease Cardiomyopathy Hypertension Osteoporosis Father , Heart Disease Age 86 Heart disease Parkinson disease CVA (cerebral vascular accident) Hypertension Unknown Thyroid disorder Stomach ulcer Social History household members: spouse Smoking Status: Never smoker alcohol intake: current alcohol intake frequency: holidays/special occasions only Alcohol type: wine substance use type: does not use diet: other caffeine: Yes Type: coffee Number of servings: 3 what type of physical activity do you participate in: walking frequency: 3-4 times per week seatbelt use: always do you feel safe at home: Yes HPI HPI Urology Chief Complaint: PTNS treatment Details: BHARTI AKBAR, is a 79 F. She is voiding about 6-8 time during the day and 1 times at night. The incontinence is improving. She is going through 1-3 pads a day. She is continuing to work on level one management with diet, fluid control and bladder training. She is not having any issues with her skin or ankle after treatments. She is happy with this treatment plan. ROS Const Constitutional: No chills, fatigue, fever(s), headache(s), night sweats, weakness, weight change, abnormal sleep pattern or change in appetite Eyes Eyes: No change in vision ENT ENT: No headache(s) or dry mouth Resp Respiratory: No cough, chest congestion, shortness of breath or wheezing Cardio Cardio (more content not included)... Normal [facility] MR/BMS.Shira 04-11-2025 MR/BMS.LUCERO [facility] [address], [address] [place] [address] OFFICE VISIT Date of Service: 04/11/25 MR#: [id number] Acct: [id number] Name: BHARTI AKBAR Rep #: [id number] 3 : 1945 Provider: Dr. Alma Zepeda i, MD Age/Sex: 79/F Location: [facility] [place] Status: Signed with Addenda ADDENDUM by Anne-Marie Lopez on 04/14/25 at 1543 HPI Details: BHARTI AKBAR, is a 79 F who presents to the office today for Assessment and Plan Plan Details Follow Up: 1 week ago ( PTNS was Anne-Marie) Addendum Order was not placed on date of service and billing was e-mailed for corrections. 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 Is patient in pain?: No Allergies albuterol Allergy (Intermediate, Verified 03/11/25 15:12) GI upset cyclobenzaprine (From Flexeril) Allergy (Intermediate, Verified 03/11/25 15:12) mental status change hydrocodone (From Vicodin) Allergy (Intermediate, Verified 03/11/25 15:12) muscle twitching oxycodone Allergy (Intermediate, Verified 03/11/25 15:12) Vomiting amoxicillin Allergy (Mild, Verified 03/11/25 15:12) Swelling clindamycin Allergy (Mild, Verified 03/11/25 15:12) Swelling diatrizoate meglumine Allergy (Mild, Verified 03/11/25 15:12) Itching Tetanus Vaccines and Toxoid Allergy (Mild, Verified 03/11/25 15:12) Hives codeine Adverse Reaction (Intermediate, Verified 03/11/25 15:12) Nausea Vomiting benzonatate (From Tessalon Perles) Adverse Reaction (Mild, Verified 03/11/25 15:12) Vomiting hydrochlorothiazide (From Dyazide) Adverse Reaction (Mild, Verified 03/11/25 15:12) intolerance triamterene (From Dyazide) Adverse Reaction (Mild, Verified 03/11/25 15:12) intolerance erythromycin base Adverse Reaction (Verified 03/11/25 15:12) Nausea Is last menstrual period known: No Post menopausal: Yes Patient : No Have you fallen in the past year?: Yes [facility] Medical History Aortic stenosis Gait disturbance Fatigue Lung nodule, multiple Iron deficiency anemia due to chronic blood loss History of GI bleed Diarrhea C. 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 Ventricular hypertrophy Diastolic dysfunction Aortic insufficiency Family history of premature coronary heart disease Aortic valve disease Nonspecific abnormal serum enzyme levels Peptic ulcer disease Carotid artery bruit Palpitations Angina pectoris Chest pain Insomnia GERD (gastroesophageal reflux disease) Surgical History History of appendectomy History of coronary artery stent placement History of colonoscopy ( 08/2020) History of esophagogastroduodenosc opy (EGD) ( 08/2020) History of hysterectomy History of thyroidectomy Presence of coronary angioplasty implant and graft ( 09/01/15) Family History Mother , Age 76 heart attack Myocardial infarction Heart disease Cardiomyopathy Hypertension Osteoporosis Father , Heart Disease Age 86 Heart disease Parkinson disease CVA (cerebral vascular accident) Hypertension Unknown Thyroid disorder Stomach ulcer Social History household members: spouse Smoking Status: Never smoker alcohol intake: current alcohol intake frequency: holidays/special occasions only Alcohol type: wine substance use type: does not use diet: other caffeine: Yes Type: coffee Number of servings: 3 what type of physical activity do you participate in: walking frequency: 3-4 times per week seatbelt use: always do you feel safe at home: Yes HPI HPI Urology Chief Complaint: urge incontinence Details: BHARTI AKBAR, is a 79 F. She is here for her weekly PTNS treatment. She is continuing to work on level 1 management but has struggled the last couple of (more content not included)... Normal [facility] Cardiology Visit Reporton Cardiology Visit Report [facility] [address] [place] [address] OFFICE VISIT Date of Service: 03/11/25 MR#: [id number] Acct: [id number] Name: BHARTI AKBAR Rep #: [id number] 0 : 1945 Provider: Dr. Frankie Quispe MD Age/Sex: 79/F [place] [facility] [place] Status: Signed HPI HPI History of Present Illness Details: Bharti Akbar is a 79-year-old white female with a history of CAD, PCI, aortic valve disorder, carotid artery stenosis, hyperlipidemia, CVA and hypertension. She tells me that she has been doing quite well but she did sustain a fall in January of this year and had a CT scan of her chest which demonstrated atherosclerosis. She does have known coronary artery disease. She denies any chest pain or shortness of the paroxysmal current dyspnea pedal edema no neck arm or jaw discomfort suggest angina. She still uses the cane due to imbalance. She also has a dropfoot. Her physical exam is significant for 2/6 systolic murmur at the lower sternal border. 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 Accompanied by: Self Is patient in pain?: No Allergies albuterol Allergy (Intermediate, Verified 03/11/25 15:12) GI upset cyclobenzaprine (From Flexeril) Allergy (Intermediate, Verified 03/11/25 15:12) mental status change hydrocodone (From Vicodin) Allergy (Intermediate, Verified 03/11/25 15:12) muscle twitching oxycodone Allergy (Intermediate, Verified 03/11/25 15:12) Vomiting amoxicillin Allergy (Mild, Verified 03/11/25 15:12) Swelling clindamycin Allergy (Mild, Verified 03/11/25 15:12) Swelling diatrizoate meglumine Allergy (Mild, Verified 03/11/25 15:12) Itching Tetanus Vaccines and Toxoid Allergy (Mild, Verified 03/11/25 15:12) Hives codeine Adverse Reaction (Intermediate, Verified 03/11/25 15:12) Nausea Vomiting benzonatate (From Tessalon Perles) Adverse Reaction (Mild, Verified 03/11/25 15:12) Vomiting hydrochlorothiazide (From Dyazide) Adverse Reaction (Mild, Verified 03/11/25 15:12) intolerance triamterene (From Dyazide) Adverse Reaction (Mild, Verified 03/11/25 15:12) intolerance erythromycin base Adverse Reaction (Verified 03/11/25 15:12) Nausea Medications ???Medication ???Instructions ???Recorded ???Confirmed ???Type aspirin 81 mg tablet,delayed 81 mg PO DAILY 11/29/23 03/11/25 H istory release (Adult Low Dose Aspirin) Lactobacil.acidophilus- Bifido.animalis 1 cap PO DAILY digestion 02/0103/11/25 History 5 billion cell sprinkle capsule (Probiotic) glucosamine-chondroitin 250 mg-200 2 tab PO QPC 03/15/24 03/11/25 H istory mg tablet (Osteo Bi-Flex) multivitamin with minerals-ferrous 1 tab PO DAILY 03/15/24 03/11/25 History sulfate 4.5 mg iron tablet (One Daily Multivitamins with Minerals) atorvastatin 40 mg tablet 40 mg PO QHS cholesterol #90 tabs 09/02/24 03/11/25 Rx amlodipine 5 mg tablet 5 mg PO QDAY #90 tabs 11/12/2410/05 Rx carvedilol 6.25 mg tablet (Coreg) 6.25 mg PO BID blood pressure #18 0 03/11/25 03/11/25 Rx tabs cholecalciferol (vitamin D3) 25 2,000 unit PO QDAY 03/11/25 History mcg (1,000 unit) capsule donepezil 5 mg tablet 10 mg PO DAILY memory 03/11/2510/05 History levothyroxine 100 mcg tablet 100 mcg PO DAILY thyroid 03/11/25 03/11/25 History lisinopril 20 mg tablet 20 mg PO QDAY blood pressure 03/1103/11/25 History trazodone 50 mg tablet 150 mg PO QHS 03/11/25 03/11/25 Hi story Have you fallen in the past year?: Yes [facility] Medical History Aortic stenosis Gait disturbance Fatigue Lung nodule, multiple Iron deficiency anemia due to chronic blood loss History of GI bleed Diarrhea C. 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 Normal [facility] L/S Spine Min 4 Viewson L/S Spine Min 4 Views [facility] Imaging Services [address] [place], [place] [id number] L/S Spine Min 4 Views MR#: [id number] Acct: [id number] Name: BHARTI AKBAR Rep #: [id number] : 1945 F 79 From: Beverly caplelan MD PCP: Dr. Armando Orozco MD Status: DEP AMB Study: L/S Spine Min 4 Views Date of Exam: 02/17/25 Exam# [id number] Ordering Dr: Vida Narvaez PROCEDURE: L/S SPINE MIN 4 VIEWS 02/17/2025 REASON FOR EXAM: CHRONIC PAIN TECHNIQUE: 4 view(s) of the thoracic and lumbar spine. COMPARISON: None. FINDINGS: Reverse S shaped scoliosis. Grade 1 anterolisthesis of L4 on L5. No associated instability on flexion/extension images. Exaggerated lumbar lordosis. There are diffuse spondylotic changes. Findings are demonstrated to by diffuse disc space narrowing, osteophyte formation and degenerative endplate sclerosis. There is diffuse facet joint arthropathy with secondary bilateral neural foramina narrowing. No fracture or dislocation is seen. No aggressive lytic or blastic bony lesion is noted. Calcified atheromatous plaques of the aorta. RAD/L/S Spine Min 4 Views IMPRESSION: Spondylosis. Reverse S shaped scoliosis. No evidence of instability on flexion/extension images. Reading [facility] CC: SARAH Peterson; Dr. Armando Orozco MD Transformation Specialist: Signed Normal [facility] Orthopedic Visit Reporton Orthopedic Visit Report [facility] [address] [place] [address] [address] [place] [address] OFFICE VISIT Date of Service: 02/17/25 MR#: [id number] Acct: [id number] Name: BHARTI AKBAR Rep #: [id number] : 1945 Provider: SARAH Peterson Age/Sex: 79/F [place] [facility] [place] Status: Signed Intake Vital Signs 01/30/25 15:39 02/17/25 15:00 Height 5 ft 3 in 5 ft 3 in Weight: 118 lb BMI 20.9 Intake Visit Reasons: LUMBAR SPINE Chief Complaint: lumbar spine Allergies albuterol Allergy (Intermediate, Verified 02/17/25 15:01) GI upset cyclobenzaprine (From Flexeril) Allergy (Intermediate, Verified 02/17/25 15:01) mental status change hydrocodone (From Vicodin) Allergy (Intermediate, Verified 02/17/25 15:01) muscle twitching oxycodone Allergy (Intermediate, Verified 02/17/25 15:01) Vomiting amoxicillin Allergy (Mild, Verified 02/17/25 15:01) Swelling clindamycin Allergy (Mild, Verified 02/17/25 15:01) Swelling diatrizoate meglumine Allergy (Mild, Verified 02/17/25 15:01) Itching Tetanus Vaccines and Toxoid Allergy (Mild, Verified 02/17/25 15:01) Hives codeine Adverse Reaction (Intermediate, Verified 02/17/25 15:01) Nausea Vomiting benzonatate (From Tessalon Perles) Adverse Reaction (Mild, Verified 02/17/25 15:01) Vomiting hydrochlorothiazide (From Dyazide) Adverse Reaction (Mild, Verified 02/17/25 15:01) intolerance triamterene (From Dyazide) Adverse Reaction (Mild, Verified 02/17/25 15:01) intolerance erythromycin base Adverse Reaction (Verified 02/17/25 15:01) Nausea Medications ???Medication ???Instructions ???Recorded ???Confirmed ???Type donepezil 5 mg tablet 5 mg PO DAILY memory 10/16/23 06/0 06/05 History aspirin 81 mg tablet,delayed 81 mg PO DAILY 11/29/23 02/17/25 H istory release (Adult Low Dose Aspirin) levothyroxine 100 mcg tablet 88 mcg PO DAILY thyroid 11/29/23 0 02/17/25 History Lactobacil.acidophilus- Bifido.animalis 1 cap PO DAILY digestion 02/0102/17/25 History 5 billion cell sprinkle capsule (Probiotic) glucosamine-chondroitin 250 mg-200 2 tab PO QPC 03/15/24 02/17/25 H istory mg tablet (Osteo Bi-Flex) multivitamin with minerals-ferrous 1 tab PO DAILY 03/15/24 02/17/25 History sulfate 4.5 mg iron tablet (One Daily Multivitamins with Minerals) cholecalciferol (vitamin D3) 25 25 mcg PO QDAY 08/30/24 02/17/25 H istory mcg (1,000 unit) capsule atorvastatin 40 mg tablet 40 mg PO QHS cholesterol #90 tabs 09/02/24 02/17/25 Rx famotidine 20 mg tablet 20 mg PO DAILY #90 TABLETS 4 02/17/25 Rx amlodipine 5 mg tablet 5 mg PO QDAY #90 tabs 11/12/2406/05 Rx carvedilol 6.25 mg tablet (Coreg) 6.25 mg PO BID blood pressure #60 11/19/24 02/17/25 Rx tabs lisinopril 20 mg tablet 20 mg PO BID blood pressure #180 0 01/13/25 02/17/25 Rx tabs Have you [facility] in the past year?: [facility] History Aortic stenosis Gait disturbance Fatigue Lung nodule, multiple Iron deficiency anemia due to chronic blood loss History of GI bleed Diarrhea C. 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 Ventricular hypertrophy Diastolic dysfunction Aortic insufficiency Family history of premature coronary heart disease Aortic valve disease Nonspecific abnormal serum enzyme levels Peptic ulcer disease Carotid artery bruit Palpitations Angina pectoris Chest pain Insomnia GERD (gastroesophageal reflux disease) Surgical History History of appendectomy History of coronary artery stent placement History of colonoscopy ( 08/2020) History of esophagogastroduodenosc opy (EGD) ( 08/2020) History of hysterectomy History of thyroidectomy Presence of coronary angioplasty implant and graft ( 09/01/15) Family History Mother , Age 76 heart attack Myocardial infarction Heart disease Cardiomyopathy Hypertension Osteoporosis Father , Heart Disease Age 86 Heart disease Parkinson disease CVA (cerebral vascular accident) Hypertension Unknown Thyroid disorder Stoma (more content not included)... Normal [facility] Thoracic Spine 2 Viewson Thoracic Spine 2 Views [facility] Imaging Services [address] [place], [place] [address] Thoracic Spine 2 Views MR#: [id number] Acct: [id number] Name: BHARTI AKBAR Rep #: [id number] : 1945 F 79 From: Beverly capellan MD PCP: Dr. Armando Orozco MD Status: DEP AMB Study: Thoracic Spine 2 Views Date of Exam: 02/17/25 Exam# [id number] Ordering Dr: Vida Narvaez PROCEDURE: THORACIC SPINE 2 VIEWS 02/17/2025 REASON FOR EXAM: CHRONIC PAIN TECHNIQUE: 2 view of the thoracic spine COMPARISON: MRI on 11/14/2023. FINDINGS: Mild osteopenia. Mild benign chronic compression deformities of the midthoracic vertebral bodies with increased dorsal kyphosis. Mild reverse S shaped scoliosis. There are diffuse spondylotic changes. Findings are demonstrated to by diffuse disc space narrowing, osteophyte formation and degenerative endplate sclerosis. There is diffuse facet joint arthropathy with secondary bilateral neural foramina narrowing. No fracture or dislocation is seen. No aggressive lytic or blastic bony lesion is noted. RAD/Thoracic Spine 2 Views IMPRESSION: Spondylosis. Reading Location: [facility] CC: SARAH Peterson; Dr. Armando Orozco MD Transformation Specialist: Signed Normal [facility] MR/BMS.BVSon 02-07-2025 MR/BMS.BVS [facility] Vascular Surgery [address] [facility] [place] [address] OFFICE VISIT Date of Service: 02/07/25 MR#: [id number] Acct: [id number] Name: BHARTI AKBAR Rep #: [id number] : 1945 Provider: SARAH Valdivia Age/Sex: 79/F [place] [facility] [place] Status: Signed Intake Vital Signs 09/25/24 11:24 01/24/25 10:14 02/07/25 11:01 Height 5 ft 3 in 5 ft 3 in Weight: 120 lb BP 168/66 H Blood Pressure Location Lt brachial Position Sitting Respiration 14 Pulse 70 Pulse Source Monitor Temp 97.6 F L Temp Source Temporal Pulse Oximetry (%) 99 Oxygen Delivery Method room air Intake Visit Reasons: R LE Edema Is patient in pain?: Yes Allergies albuterol Allergy (Intermediate, Verified 02/07/25 11:03) GI upset cyclobenzaprine (From Flexeril) Allergy (Intermediate, Verified 02/07/25 11:03) mental status change hydrocodone (From Vicodin) Allergy (Intermediate, Verified 02/07/25 11:03) muscle twitching oxycodone Allergy (Intermediate, Verified 02/07/25 11:03) Vomiting amoxicillin Allergy (Mild, Verified 02/07/25 11:03) Swelling clindamycin Allergy (Mild, Verified 02/07/25 11:03) Swelling diatrizoate meglumine Allergy (Mild, Verified 02/07/25 11:03) Itching Tetanus Vaccines and Toxoid Allergy (Mild, Verified 02/07/25 11:03) Hives codeine Adverse Reaction (Intermediate, Verified 02/07/25 11:03) Nausea Vomiting benzonatate (From Tessalon Perles) Adverse Reaction (Mild, Verified 02/07/25 11:03) Vomiting hydrochlorothiazide (From Dyazide) Adverse Reaction (Mild, Verified 02/07/25 11:03) intolerance triamterene (From Dyazide) Adverse Reaction (Mild, Verified 02/07/25 11:03) intolerance erythromycin base Adverse Reaction (Verified 02/07/25 11:03) Nausea Medications ???Medication ???Instructions ???Recorded ???Confirmed ???Type donepezil 5 mg tablet 5 mg PO DAILY memory 10/16/2301/11 History aspirin 81 mg tablet,delayed 81 mg PO DAILY 11/29/23 02/07/25 H istory release (Adult Low Dose Aspirin) levothyroxine 100 mcg tablet 88 mcg PO DAILY thyroid 11/29/23 0 02/07/25 History Lactobacil.acidophilus- Bifido.animalis 1 cap PO DAILY digestion 02/0102/07/25 History 5 billion cell sprinkle capsule (Probiotic) glucosamine-chondroitin 250 mg-200 2 tab PO QPC 03/15/24 02/07/25 H istory mg tablet (Osteo Bi-Flex) multivitamin with minerals-ferrous 1 tab PO DAILY 03/15/24 02/07/25 History sulfate 4.5 mg iron tablet (One Daily Multivitamins with Minerals) cholecalciferol (vitamin D3) 25 25 mcg PO QDAY 08/30/24 02/07/25 H istory mcg (1,000 unit) capsule atorvastatin 40 mg tablet 40 mg PO QHS cholesterol #90 tabs 09/02/24 02/07/25 Rx famotidine 20 mg tablet 20 mg PO DAILY #90 TABLETS 4 02/07/25 Rx amlodipine 5 mg tablet 5 mg PO QDAY #90 tabs 11/12/24 Rx carvedilol 6.25 mg tablet (Coreg) 6.25 mg PO BID blood pressure #60 11/19/24 02/07/25 Rx tabs lisinopril 20 mg tablet 20 mg PO BID blood pressure #180 0 01/13/25 02/07/25 Rx tabs Is last menstrual period known: No Post menopausal: Yes Patient : No Have you fallen in the past year?: Yes [facility] Medical History Aortic stenosis Gait disturbance Fatigue Lung nodule, multiple Iron deficiency anemia due to chronic blood loss History of GI bleed Diarrhea C. 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 Vision problem Thyroid dysfunction Osteoarthritis Hearing problem Chronic headache GI problem Cataracts, bilateral Seasonal allergies skilled nursing use of drug Ventricular hypertrophy Diastolic dysfunction Aortic insufficiency Family history of premature coronary heart disease Aortic valve disease Nonspecific abnormal serum enzyme levels Peptic ulcer disease Carotid artery bruit Palpitations Angina pectoris Chest pain Insomnia GERD (gastroesophageal reflux disease) Surgical History History of appendectomy History of coronary artery stent placement History of colonoscopy ( 08/2020) History of esophagogastroduodenosc opy (EGD) ( 08/2020) History of hysterectomy History of thyroidectomy Presence of coronary angioplasty implant and graft ( 09/01/15) Family History ... Normal [facility] Brain/Head without Contrasto n 01-30-2025 Brain/Head without Contrast [facility] Imaging Services [address], [place] [address] Brain/Head without Contrast MR#: [id number] Acct: [id number] Name: BHARTI AKBAR Rep #: [id number] : 1945 F 79 From: Lauren Salazar PCP: Dr. Armando Orozco MD Status: REG ER Study: Brain/Head without Contrast Date of Exam: 01/10 11/05 Exam# [id number] Ordering Dr: Bibiana James DO PROCEDURE: BRAIN/HEAD WITHOUT CONTRAST 01/30/2025 REASON FOR EXAM: TRAUMA TECHNIQUE: Head CT without intravenous contrast. Coronal and Sagittal reconstruction series were provided. One or more dose reduction techniques were used (e.g., Automated exposure control, adjustment of the mA and/or kV according to patient size, use of iterative reconstruction technique. RADIATION DOSE SUMMARY: DLP: 1280 mGycm COMPARISON: None FINDINGS: There is no acute infarct, intracranial hemorrhage, or mass effect. There is no hydrocephalus or significant midline shift. There is mild chronic microvascular ischemic changes and mild parenchymal volume loss. No acute, depressed calvarial fractures. No large scalp hematomas. Bilateral lens surgeries. CT/Brain/Head without Contrast IMPRESSION: No acute intracranial process. Reading Location: [id number] CC: Dr. Bibiana James DO; Dr. Armando Orozco MD Transformation Specialist: Signed Normal [facility] CNOVon 01-30-2025 CNOV Office Visit (UCWSTR ) BHARTI AKBAR ([id number]) 1945 F NFR Date Time Provider Department 01/30/25 3:15 PM JAGUAR BALLARD [facility] During your visit today, we recorded the following information about you: Jaguar Ballard APRN.PHARMACOVIGILANCE SAFETY EXPERT 01/30/2025 6:45 PM Signed Patient triaged at [facility]. Here today with head injury few days ago, pain worsening since fall. Patient in no apparent distress at time of triage. I will refer to ER. Unclear what ER will go to at this time. Denies squad. Allergies As of Date: 01/30/2025 Noted Allergy Reaction CONTRAST DYE (IODINE) 09/08/2021 9 - Itching Comments: Pt felt like she was going to or have a seizure, per pt ALBUTEROL 11/23/2018 5 - Intolerance AMOXIL (AMOXICILLIN) 10/25/2012 14 - Other: See Comments Comments: Thick tongue CLINDAMYCIN 03/29/2023 7 - Swelling CODEINE 05/10/2005 11 - Vomiting DIATRIZOATE MEGLUMINE 08/30/2021 9 - Itching DYAZIDE (TRIAMTERENE-HYDROCHLOR OT*11/23/2012 5 - Intolerance Comments: incontinence urine ERYTHROMYCIN 05/10/2005 8 - GI Upset FLEXERIL (CYCLOBENZAPRINE) 05/10/2005 1 - Mental Status Change OXYCODONE 10/10/2016 11 - Vomiting OXYCONTIN (OXYCODONE HCL) 03/01/2012 8 - GI Upset 11 - Vomiting TESSALON PERLES (BENZONATATE) 05/10/2005 8 - GI Upset TETANUS VACCINES AND TOXOID 10/26/2005 VICODIN (HYDROCODONE-ACETAMINOP HE*11/23/2010 5 - Intolerance Comments: radha Hoskins Date Reviewed: 12/24/2024 Reviewed by: Winnie Cunningham LPN - Fully Assessed Primary Visit Diagnosis:Injury of head, initial encounter [S09.90XA] Prescriptions as of 01/30/2025 - amLODIPine (NORVASC) 5 mg tablet Take 1 tablet by mouth once daily. - levothyroxine (LEVOXYL) 100 mcg tablet Take 1 tablet by mouth once daily. Take on empty stomach. For Thyroid. - traZODone (DESYREL) 50 mg tablet Take 3 tablets by mouth daily at bedtime. - donepezil (ARICEPT) 10 mg tablet Take 1 tablet by mouth daily at bedtime. - lisinopril (ZESTRIL) 20 mg tablet Take 1 tablet by mouth once daily. - atorvastatin (LIPITOR) 40 mg tablet AT BEDTIME - carvedilol (COREG) 6.25 mg tablet Take 6.25 mg by mouth two times a day with meals. - Cholecalciferol, Vitamin D3, 50 mcg (2,000 unit) cap DAILY - aspirin, enteric coated (ASPIRIN, ENTERIC COATED) 81 mg EC tablet Take 1 tablet by mouth once daily. - COMPOUNDED PRESCRIPTION Home blood pressure monitor. DX: Essential HTN I10 - CENTRUM SILVER ORAL TAB Take one(1) tablet daily. Meds Comments as of 03/07/2023: Started taking Osteo BiFlex OTC. 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 09/15/2016 Unspecified vitamin D deficiency [E55.9] 08/16/2006 DEPRESSIVE DISORDER NEC [F32.89] 01/23/2007 Attention deficit disorder without mention of h*05/25/2007 09/15/2016 Closed fracture of cervical spine (HCC) [S12.9X*11/03/2010 09/15/2016 Hypertension [I10] 03/23/2011 07/07/2015 Multinodular goiter [E04.2] 03/23/2011 09/15/2016 SOB (shortness of breath) [R06.02] 03/23/2011 12/25/2013 Osteopenia [M85.80] 01/25/2012 Postsurgical hypothyroidism [E89.0] 03/20/2012 Migraine variant [G43.809] 11/18/2012 Post-traumatic headache [G44.309] 10/02/2013 Osteoarthritis of carpometacarpal joints of bot*10/02/2013 De Quervain's tenosynovitis, right [M65.4] 03/26/2014 01/02/2017 Iron deficiency anemia due to chronic blood los*03/06/2015 09/15/2016 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.1] 07/07/2015 09/15/2016 Essential hypertension [I10] 07/07/2015 Primary osteoarthritis of first carpometacarpal* 017 HLD (hyperlipidemia) [E78.5] 09/23/2016 Coronary artery disease involving tejon webster*09/23/2016 Fibromyalgia [M79.7] 10/02/2019 Ischemic colitis (HCC) [K55.9] 03/07/2023 06/10/2024 Segmental colitis associated with diverticulosi*11/20/2023 Angina pectoris (HCC) [I20.9] 03/07/2023 11/20/2023 Encounter Status:Closed by JAGUAR BALLARD on 01/30/25 Normal [facility] Chest without Contraston Chest without Contrast [facility] Imaging Services [address] [place] [id number] Chest without Contrast MR#: [id number] Acct: [id number] Name: BHARTI AKBAR Rep #: [id number] : 1945 F 79 From: Lauren Salazar PCP: Dr. Armando Orozco MD Status: REG ER Study: Chest without Contrast Date of Exam: 01/30/25 Exam# [id number] Ordering Dr: Bibiana James DO PROCEDURE: CHEST WITHOUT CONTRAST 01/30/2025 REASON FOR EXAM: (L) RIB PAIN S/P FALL TECHNIQUE: Chest CT without contrast. Coronal and Sagittal reconstruction series were provided. One or more dose reduction techniques were used (e.g., Automated exposure control, adjustment of the mA and/or kV according to patient size, use of iterative reconstruction technique RADIATION DOSE SUMMARY: DLP: 1281 mGycm COMPARISON: none FINDINGS: Lymph nodes: Question slight left hilar prominence where adenopathy is not entirely excluded in the absence of IV contrast. Calcifications within the bilateral hilar region, left more than right, likely related to prior granulomatous changes. Heart and Vasculature: Mild cardiomegaly. Trace pericardial effusion. Extensive atherosclerosis of the thoracic aorta. Coronary Artery Calcifications: Extensive coronary atherosclerosis/stents. Lungs and Airways: Left base subsegmental atelectasis versus possible pulmonary contusion. No other focal consolidations. Pleura: Trace left-sided pleural effusion. Upper Abdomen: 1.7 x 1.0 cm nodule within the right adrenal gland likely adenoma. Scattered calcifications throughout the liver and spleen which may reflect prior granulomatous changes. Bones: No acute, displaced rib fractures. Healed right anterior T5 and T7 rib fractures. CT/Chest without Contrast IMPRESSION: No acute, displaced rib fractures. Trace left-sided pleural effusion. Left base subsegmental atelectasis versus possible pulmonary contusion. Reading Location: [facility] CC: Dr. Bibiana James DO; Dr. Armando Orozco MD Transformation Specialist: Signed Normal [facility] Emergency Department Summary on 01-30-2025 Emergency Department Summary [facility] Medical Records Department [address] [place] [id number] Emergency Department Summary 01/30/25 MR#: [id number] Acct: [id number] Name: BHARTI AKBAR Rep #: [id number] : 1945 79 From: Bibiana James DO PCP: Dr. Armando Orozco MD Status:DEP ER Location: ED HPI HPI - Fall History of Present Illness Chief Complaint: Fall Informant: patient Narrative Narrative: 79-year-old female presenting to the emergency room for evaluation of injuries following a fall. Patient states that on Monday she went to let her dogs out when she hit her leg on some plantars that were on the concrete. This caused her to fall down. She notes bruising to the left forearm pain in the left lateral ribs and abrasions to the knees and contusion to the left side of her face. She states that she has been intermittently having a headache on the right side of her head as well as intermittent blurry vision on the left back. She states today she went to get her hair done and the hairdresser stated that her veins seem more distended on the left and thought that she should be evaluated. She states she does not take any blood thinners. [facility] Medical History Aortic stenosis Gait disturbance Fatigue Lung nodule, multiple Iron deficiency anemia due to chronic blood loss History of GI bleed Diarrhea C. 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 Vision problem Thyroid dysfunction Osteoarthritis Hearing problem Chronic headache GI problem Cataracts, bilateral Seasonal allergies skilled nursing use of drug Ventricular hypertrophy Diastolic dysfunction Aortic insufficiency Family history of premature coronary heart disease Aortic valve disease Nonspecific abnormal serum enzyme levels Peptic ulcer disease Carotid artery bruit Palpitations Angina pectoris Chest pain Insomnia GERD (gastroesophageal reflux disease) Home Medications ???Medication ???Instructions ???Recorded ???Last Taken ???Type donepezil 5 mg tablet 5 mg PO DAILY memory 10/16/23 04/02/01 History aspirin 81 mg tablet,delayed 81 mg PO DAILY 11/29/23 01/04/24 H istory release (Adult Low Dose Aspirin) levothyroxine 100 mcg tablet 88 mcg PO DAILY thyroid 11/29/23 0 01/04/24 History Lactobacil.acidophilus- Bifido.animalis 1 cap PO DAILY digestion 02/01 Unknown History 5 billion cell sprinkle capsule (Probiotic) glucosamine-chondroitin 250 mg-200 2 tab PO QPC 03/15/24 Unknown Hi story mg tablet (Osteo Bi-Flex) multivitamin with minerals-ferrous 1 tab PO DAILY 03/15/24 Unknown History sulfate 4.5 mg iron tablet (One Daily Multivitamins with Minerals) cholecalciferol (vitamin D3) 25 25 mcg PO QDAY 08/30/24 Unknown Hi story mcg (1,000 unit) capsule atorvastatin 40 mg tablet 40 mg PO QHS cholesterol #90 tabs 09/02/24 Unknown Rx famotidine 20 mg tablet 20 mg PO DAILY #90 TABLETS 4 Unknown Rx amlodipine 5 mg tablet 5 mg PO QDAY #90 tabs 11/12/24 Unk nown Rx carvedilol 6.25 mg tablet (Coreg) 6.25 mg PO BID blood pressure #60 11/19/24 Unknown Rx tabs lisinopril 20 mg tablet 20 mg PO BID blood pressure #180 0 01/13/25 Unknown Rx tabs Allergy/AdvReac Type Severity Reaction Status Date / Time albuterol Allergy Intermediate GI upset Verified 01/30/25 15:39 cyclobenzaprine (From Allergy Intermediate mental Verified 01/30/25 15:39 Flexeril) status change hydrocodone (From Vicodin) Allergy Intermediate muscle Verified 01/30/25 15:39 twitching oxycodone Allergy Intermediate Vomiting Verified 01/30/25 15:39 amoxicillin Allergy Mild Swelling Verified 01/30/25 15:39 clindamycin Allergy Mild Swelling Verified 01/30/25 15:39 diatrizoate meglumine Allergy Mild Itching Verified 01/30/25 15:39 Tetanus Vaccines and Toxoid Allergy Mild Hives Verified 01/30/25 15:39 codeine AdvReac Intermediate Nausea Verified 01/30/25 15:39 Vomiting benzonatate (From Tessalon AdvReac Mild Vomiting Verified 01/30/25 15:39 Perles) hydrochlorothiazide (From AdvReac Mild intolerance Verified 01/30/25 15:39 Dyazide) triamterene (From Dyazide) AdvReac Mild intolerance Verified 01/30/25 15:39 erythromycin base AdvReac Nausea Verified 01/30/25 15:39 Family History Mother , Age 76 (more content not included)... Normal [facility] CNOVon 12-24-2024 CNOV Office Visit (FAMPWS ) BHARTI AKBAR ([id number]) 1945 F NFR Date Time Provider Department 12/24/24 1:00 PM KUSHAL WELDON During your visit today, we recorded the following information about you: Pulse Respiration Blood pressure Weight 62/minute 18/minute 170/78 54.4 kg Kushal Weldon, GLORIA.PHARMACOVIGILANCE SAFETY EXPERT 12/24/2024 1:28 PM Signed Chief Complaint Patient presents with: Pain: Bilateral knees and bilateral hips HPI Bharti Akbar is a 79 year old female who presents here today for above reason. History of calcium pyrophosphate deposition disease as evidence by xr of knee 04/20/2023, findings were re-demonstrated on 07/26/2023 xray of bilateral knees with orthopedics. Had normal duplex venous ultrasound and lower extremity arterial study with exercise completed at [facility] on 12/18/2024. She has been evaluated by orthopedics at [facility], Dr. Juan Kilpatrick (07/26/2023). Received cortisone injections, was instructed that she may return every 3 months. Does not appear that she ever followed up with ortho after initial appointment. Xray right hip 06/21/2019 showing moderate narrowing of both hip joints. Bharti is a 79-year-old female, with a history of fibromyalgia, Alzheimer's disease, and HTN, presenting with diffuse pain. Bharti reports diffuse pain, including in the knees, hips, shoulders, and legs, which she attributes to fibromyalgia. The pain has been severe enough that she has been taking Tylenol every 6 hours for relief. She notes that the pain causes her to clench her teeth and believes that the weather exacerbates her symptoms. She denies taking any anti-inflammatory medications. She has a history of knee disease and was evaluated by an orthopedist approximately 1.5 years ago. An X-ray performed 4-5 years ago revealed moderate arthritis in the hip joints. She received an injection in her right knee in July [address] Kilpatrick at [facility] and was advised to follow up every 3 months for additional injections. She also received an injection in her shoulder about a year ago. Bharti is currently taking medication to slow the progression of Alzheimer's disease. She has a history of taking prednisone tapers in the past but does not recall the details. She has been monitoring her blood pressure at home, with readings typically around 140/80 to 150/80 mmHg. She denies readings in the 180s. She is unsure if her current healthcare provider manages her blood pressure medication. Past medical history, appointments, medications, allergies reviewed. EXAM: BP 170/78 Pulse 62 Resp 18 Wt 54.4 kg (120 lb) SpO2 98% BMI 21.60 kg/m? General Appearance: Well appearing, alert, in no acute distress, well-hydrated, well nourished.. Lungs: Lungs clear to auscultation. No wheezing, rhonchi, rales.. Heart: RRR without murmur, gallop, or rubs. No ectopy. Musculoskeletal: Bilateral knees: No swelling, mild tenderness along the medial joint line. Bilateral hips, mild tenderness around lateral aspect. Bilateral shoulders: ROM intact, AC joint tenderness. . 1. 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 Previous X-rays showed moderate arthritis in hip joints. Recent right knee injection by Dr. Kilpatrick at [facility] in July 2023. - Follow-up with orthopedic surgery for potential repeat knee injections every 3 months. - Provided information on accessing [facility] [employer] for records. 2. Fibromyalgia (M79.7) Widespread pain, including knees, hips, and shoulders. Currently managed with Tylenol every 6 hours. No current use of anti-inflammatories. - Initiate prednisone taper to reduce inflammation and manage pain. 3. Essential hypertension (I10) Blood pressure elevated at 170/78, possibly secondary to pain. Home readings reportedly around 140-150 mmHg systolic. - Address pain management to potentially lower blood pressure. - Schedule follow-up for blood pressure check to assess need for medication adjustment. RTO in 1 months, sooner if needed. This note was partly generated using [employer] voice recognition dictation and may contain some misspelled or inaccurate words missed on review. Recording using [employer] software for draft documentation of the visit was discussed with the patient/authorized international sales representative; all questions welcomed and answered. Patient/authorized international sales representative agreed to proceed Kushal WeldonAPRN.PHARMACOVIGILANCE SAFETY EXPERT 12/24/2024 1:26 PM Signed We discussed your fibromyalgia and pain management: - You are experiencing widespread pain, including in your knees, hips, shoulders, and other areas, which you believe is related to your fibromyalgia. - You have been taking Tylenol every six hours for pain relief but are still experiencing significant discomfort. - I recommend starting (more content not included)... Normal [facility] Arterial study reportOrdered By: Romie Batista on 12-18-2024 Noninvasive arteriosclerosis study report [facility] [address] [place] [address] Lower Ext Art Exam w/o Exercis 12/18/24 1405 MR#: [id number] Acct: [id number] Name: BHARTI AKBAR Rep #:[id number] : 1945 79 From: Romie Batista MD Attending Dr: Dr. Jaguar Cannon, JULIAN Status: REG CLI Ordering Dr: Jaguar Cannon DPM Date: 12/18/24 Location: [facility] Sex: F C Admitted: Reason For Study Reason For Study: PVD Procedure A bilateral lower extremity continuous wave Doppler with analog waveform analysis,segmental pressures,and ankle brachial indexes without exercise. Left Segmental Pressures Left brachial= 164mmHg. Left posterior tibial artery = 193mmHg. Left dorsalis pedis artery = 184mmHg. Left digit = 147 mmHg. The left posterior tibial artery waveforms are triphasic. The left dorsalis pedis waveforms are triphasic. Right Segmental Pressures Right brachial= 156mmHg. Right posterior tibial artery = 188mmHg. Right dorsalispedis artery = 170mmHg. Right digit = 152 mmHg. The right posterior tibial artery waveforms are triphasic. The right dorsalis pedis waveforms are triphasic. Indices The right ankle brachial index by the posterior tibial artery is 1.15. The rightankle brachial index by the dorsalis pedis is 1.04. The right digital-brachial index is 0.93. The left ankle brachialindex by the posterior tibial artery is 1.18. The left ankle brachial index by the dorsalis pedis is 1.12. The left digital-brachial index is 0.90. VL/Lower Ext Art Exam w/o Exercis Interpretation Summary Triphasic Doppler waveforms are noted at ankle level bilaterally. Pulse-volume recordings appear satisfactory at all levels bilaterally. Resting ankle-brachial indices are normal bilaterally. Digital-brachial indices are normal bilaterally. There is no evidence of significant arterial occlusive disease in the lower extremities bilaterally. Ordering Physician: Jaguar Cannon Referring Physician: MD Armando Orozco Performed By: Anthony Pink, T 12/18/242125 Date _ Romie Batista MD CC: DPM Dr. Jaguar Cannon; Dr. Armando Orozco MD ~ Date Dictated: 12/18/241404 Date Transcribed: 12/18/242125 Transformation Specialist: Signed [facility] Other Lower Ext Art Exam w/o Exerc coleen 12-18-2024 Lower Ext Art Exam w/o Exercis [facility] [address] [place] [id number] Lower Ext Art Exam w/o Exercis 12/18/241404 MR#: [id number] Acct: [id number] Name: BHARTI AKBAR Rep #: [id number] : 1945 79 From: Romie Batista MD Attending Dr: Dr. Jaguar Cannon DPM Status: RE G CLI Ordering Dr: Jaguar Cannon DPM Date: 12/18/24 Location: [facility] Sex: F C Admitted: Reason For Study Reason For Study: PVD Procedure A bilateral lower extremity continuous wave Doppler with analog waveform analysis,segmental pressures,and ankle brachial indexes without exercise. Left Segmental Pressures Left brachial= 164mmHg. Left posterior tibial artery = 193mmHg. Left dorsalis pedis artery = 184mmHg. Left digit = 147 mmHg. The left posterior tibial artery waveforms are triphasic. The left dorsalis pedis waveforms are triphasic. Right Segmental Pressures Right brachial= 156mmHg. Right posterior tibial artery = 188mmHg. Right dorsalis pedis artery = 170mmHg. Right digit = 152 mmHg. The right posterior tibial artery waveforms are triphasic. The right dorsalis pedis waveforms are triphasic. Indices The right ankle brachial index by the posterior tibial artery is 1.15. The right ankle brachial index by the dorsalis pedis is 1.04. The right digital-brachial index is 0.93. The left ankle brachial index by the posterior tibial artery is 1.18. The left ankle brachial index by the dorsalis pedis is 1.12. The left digital-brachial index is 0.90. VL/Lower Ext Art Exam w/o Exercis Interpretation Summary Triphasic Doppler waveforms are noted at ankle level bilaterally. Pulse-volume recordings appear satisfactory at all levels bilaterally. Resting ankle-brachial indices are normal bilaterally. Digital-brachial indices are normal bilaterally. There is no evidence of significant arterial occlusive disease in the lower extremities bilaterally. Ordering Physician: Jaguar aCnnon Referring Physician: MD Armando Orozco Performed By: Anthony Pink, RVT 12/18/242125 Date Romie Batista MD CC: DPKisha Cannon; Dr. Armando Orozco MD Date Dictated: 12/18/24 1405 Date Transcribed: 12/18/242125 Transformation Specialist: Signed Normal [facility] Venous Duplex US - Ian Extre [facility] 12-18-2024 Venous Duplex US - Ian Extrem [facility] [address] [place] [address] Venous Duplex US - Ian Extrem 12/18/24 1414 MR#: [id number] Acct: [id number] Name: BHARTI AKBAR Rep #: [id number] : 1945 79 From: Romie Batista MD Attending Dr: Dr. Jaguar Cannon, DPM Status: RE G CLI Ordering Dr: Jaguar Cannon DPM Date: 12/18/24 Location: [facility] Sex: F C Admitted: Reason For Study Reason For Study: BLE Pain RIGHT LEFT CFV is compressible, spontaneous, phasic, competent CFV is compressible, spontaneous, phasic, competent, and demonstrates normal augmentation. and demonstrates normal augmentation. FV is compressible, spontaneous, phasic, competent FV is compressible, spontaneous, phasic, competent and demonstrates normal augmentation. and demonstrates normal augmentation. POP V is compressible, spontaneous, phasic, competent POP V is compressible, spontaneous, phasic, competent and demonstrates normal augmentation. and demonstrates normal augmentation. T/P Trunk is compressible. T/P Trunk is compressible. PTV is compressible. PTV is compressible. RT PerV is compressible. LT PerV is compressible. SFJ is INCOMPETENT and measures 0.45 cm. SFJ is INCOMPETENT and measures 0.64 cm. GSV proximal thigh measures 0.32 x 0.30 cm. GSV proximal thigh measures 0.16 x 0.18 cm. GSV at knee measures 0.21 x 0.22 cm. GSV at knee measures 0.15 x 0.15 cm. GSV INCOMPETENT throughout for greater than 0.5 GSV INCOMPETENT throughout for greater than 0.5 seconds. seconds. SSV mid calf is competent and measures 0.17 x 0.18 SSV mid calf is competent and measures 0.26 x 0.32 cm. cm. Procedure Exam performed in department. This is a venous duplex using B-mode, color flow and spectral Doppler. The exam was diagnostic. Patient was scanned in reverse Trendelenburg position during reflux assessment. VL/Venous Duplex US - Ian Extrem Interpretation Summary Deep veins of the lower extremities are bilaterally patent and compressible segmentally. There is no evidence of deep vein thrombosis on either side. Valvular competence appears intact within the proximal deep venous systems bilaterally. The great saphenous veins appear bilaterally patent and compressible segmentally. Sapheno-femoral junctions are bilaterally incompetent . Segmental valvular incompetence is noted within the great saphenous veins bilaterally. Small saphenous veins are patent and competent bilaterally. Ordering Physician: Jaguar Cannon Referring Physician: MD Armando Orozco Performed By: Anthony Pink, [place] 12/18/242129 Date Romie Batista MD CC: DPM Dr. Jaguar Cannon; Dr. Armando Orozco MD Date Dictated: 12/18/241413 Date Transcribed: 12/18/242129 Transformation Specialist: Signed Normal [facility] Venous duplex ultrasound rep ortOrdered By: Romie Batista on 12-18-2024 US Vein [facility] [address] [place] [address] Venous Duplex US - Ian Extrem 12/18/241413 MR#: [id number] Acct: [id number] Name: BHARTI AKBAR Rep #:[id number] : 1945 79 From: Romie Batista MD Attending Dr: Dr. Jaguar Cannon DPM Status: REG CLI Ordering Dr: Jaguar Cannon DPKisha Date: 12/18/24 Location: [facility] Sex: F C Admitted: Reason For Study Reason For Study: BLE Pain RIGHT LEFT CFV is compressible, spontaneous, phasic, competent CFV is compressible, spontaneous, phasic, competent, and demonstrates normal augmentation. and demonstrates normal augmentation. FV is compressible, spontaneous, phasic, competent FV is compressible, spontaneous, phasic, competent and demonstrates normal augmentation. and demonstrates normal augmentation. POP V is compressible, spontaneous, phasic, competent POP V is compressible, spontaneous, phasic, competent and demonstrates normal augmentation. and demonstrates normal augmentation. T/P Trunk is compressible. T/P Trunk is compressible. PTV is compressible. PTV is compressible. RT PerV is compressible. LT PerV is compressible. SFJ is INCOMPETENT and measures 0.45 cm. SFJ is INCOMPETENT and measures 0.64 cm. GSV proximal thigh measures 0.32 x 0.30 cm. GSV proximal thigh measures 0.16 x 0.18 cm. GSV at knee measures 0.21 x 0.22 cm. GSV at knee measures 0.15 x 0.15 cm. GSV INCOMPETENT throughout for greater than 0.5 GSV INCOMPETENT throughout for greater than 0.5 seconds. seconds. SSV mid calf is competent and measures 0.17 x 0.18 SSV mid calf is competent and measures 0.26 x 0.32 cm. cm. Procedure Exam performed in department. This is a venous duplex using B-mode, color flow and spectral Doppler. The exam was diagnostic. Patient was scanned in reverse Trendelenburg position during reflux assessment. VL/Venous Duplex US - Ian Extrem Interpretation Summary Deep veins of the lower extremities are bilaterally patent and compressible segmentally. There is no evidence of deep vein thrombosis on either side. Valvular competence appears intact within the proximal deep venous systems bilaterally. The great saphenous veins appear bilaterally patent and compressible segmentally. Sapheno-femoral junctions are bilaterally incompetent . Segmental valvular incompetence is noted within the great saphenous veins bilaterally. Small saphenous veins are patent and competent bilaterally. Ordering Physician: Jaguar Cannon Referring Physician: MD Armando Orozco Performed By: Anthony Pink, RVT 12/18/242129 Date _ Romie Batista MD CC: DPKisha Cannon; Dr. Armando Orozco MD ~ Date Dictated: 12/18/241413 Date Transcribed: 12/18/242129 Transformation Specialist: Signed [facility] Other CNOVon 12-10-2024 CNOV Office Visit (FAMPWS ) BHARTI AKBAR ([id number]) 1945 F NFR Date Time Provider Department 12/10/24 1:20 PM [facility] During your visit today, we recorded the following information about you: Pulse Respiration Blood pressure Weight 60/minute 18/minute 136/82 54.2 kg Armando Orozco MD 12/10/2024 1:51 PM Signed Chief Complaint Patient presents with: F/U 6 Month HPI Bharti Akbar is a 79 year old female who presents here today for 6 month follow up. Pt here today for a 6 month follow up. Bharti is adjusting to usp, noting a significant decrease in physical activity from 10,000-13,000 steps per day to less than 2,000. She misses the social interaction and sense of purpose from her previous job at [employer] and is considering volunteer work at [employer]. She also mentions her 's reluctance to travel, which affects their ability to visit family. She has concerns about long drives but has recently purchased a car with advanced safety features to facilitate travel. GI/Uro - Denies any stomach or bowel issues at present time. Hx of diverticulitis. Follows with Dr. Lakhani for urinary issues such as frequency/incontinence. HTN: Taking Coreg 6.25 mg 1 pill BID, Lisinopril 20 mg daily and recently added Amlodipine 5 mg once daily. Checks BP at home, yesterday was 131/81. Denies any chest pain or dizziness. Reports occ sob. Follows with [facility] every 6 months. Next appt is in January. Meds are being adjusted by Cardiology. Lipid: Tries to watch her diet. Denies exercise, but is planning on doing this. [facility] accepts Silver Sneakers so she's planning on getting into this. Taking Lipitor 40 mg daily and ASA 81 mg daily. Thyroid: Taking Levoxyl 100 mcg daily, denies any missed dosages. Pt reports that her hair is falling out like crazy and her nails are brittle and splitting. She's using OTC Biotin. Insomnia: Taking Trazodone 50 mg 2 pill once daily at bedtime. Reports having trouble falling asleep with taking only 2 pills, wondering if she can increase this to 3 tabs to see if this helps her fall asleep. Memory/Neuro: Follows with Neurology for neuropathy, memory, frequent falls, and hx of CVA. Is having issues with her right foot, noting drop foot. States that she's getting PT currently. Currently taking Aricept 10 mg daily. Podiatry - Follows with Dr. Cannon at [facility] for right drop foot. Is also having an US or PAD testing done for the swelling and pain in her lower legs. Pt also notes she's in PT as well for right drop foot. Doing PT through [facility] in [place]. HM - Does have Adv Dir/Living Will, both daughters are in charge of her medical. Past medical history, appointments, medications, allergies reviewed. 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 07/07/2015 HLD (hyperlipidemia) HTN (hypertension) Iron deficiency anemia due to chronic blood loss 03/06/2015 Kidney stone Lens replaced by other means - Right Eye 12/26/2014 Memory loss Osteoarthrosis, unspecified whether generalized or localized, other specified sites Other vitreous opacities - Both Eyes 07/07/2014 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 S/P laser cataract surgery - Right Eye 12/26/2014 S/P LASIK surgery of both eyes - Both Eyes 07/07/2014 Tear film insufficiency, unspecified 12/11/2014 Unspecified constipation Previous Surgical History PAST SURGICAL HISTORY Procedure Laterality Date APPENDECTOMY 1994 ARTHRP INTERCARPAL/CARP/MTCRPL JT INTERPOSITION Right 10/07/2016 Right thumb CMC arthroplasty ; THYROIDECTOMY TOTAL OR COMPLETE 02/08/2012 COLONOSCOPY FLX DX W/COLLJ SPEC WHEN PFRMD 08/03/2005 Colonoscopy COLONOSCOPY GEN ANES 08/26/2020 Repeat in 5-10 years COLONOSCOPY W/BIOPSY SINGLE/MULTIPLE 06/19/2015 normal colon CORRJ HLX VLGS BNCTY SESMDC W/DOUBLE OSTEOTOMY 2004 RIGHT FOOT DILATION AND CURETTAGE DXAND/THER NONOBSTETRIC 1979 AFTER MISCARRAGE EGD 08/26/2020 EGD TRANSORAL BIOPSY SINGLE/MULTIPLE 06/19/2015 gastritis ESOPHAGOGASTRODUODENOSC OPY TRANSORAL DIAGNOSTIC 08/03/2005 EGD PAST SURGICAL HISTORY OF 1975 RECTAL WALL REPAIR PAST SURGICAL HISTORY OF 2002 Lasik Surgery on both eyes ([place]) PAST SURGICAL HISTORY OF 2010 broken neck PAST SURGICAL HISTORY OF 08/2015 Bare (more content not included)... Normal [facility](NEURO/NI)on 11-18-2024 Results can be seen in attached scanned documents. If you are a patient reviewing this test result, call the doctor who ordered the test with any questions. [facility] CBC W Auto Differential pane l (Bld)on 11-05-2024 Basophils (Bld) [#/Vol] [facility] Basophils/100 WBC (Bld) 0.4 % [facility] Differential cell count method Nom (Bld) Auto [facility] Eosinophils (Bld) [#/Vol] 0.07 10*3/[facility] Eosin[facility]100 WBC (Bld) 1.4 % [facility] Erythrocyte distribution width (RBC) [Ratio] 11.9 % 11.5 - 15.0 % [facility] Hematocrit (Bld) [Volume fraction] 41.5 % 36.0 - 46.0 % [facility] Hemoglobin (Bld) [Mass/Vol] 14.3 g/dL 11.5 - 15.5 g/dL [facility] Immature granulocytes (Bld) [#/Vol] [facility] Immature granulocytes/100 WBC (Bld) 0.2 % [facility] Interpretation and review of laboratory results Abnormal [facility] Lymphocytes (Bld) [#/Vol] 1.5 10*3/uL [facility] Lymphocytes/100 WBC (Bld) 30.5 % [facility] MCH (RBC) [Entitic mass] 30.6 pg 26.0 - 34.0 pg [facility] MCHC (RBC) [Mass/Vol] 34.5 g/dL 30.5 - 36.0 g/dL [facility] MCV (RBC) [Entitic vol] 88.7 fL 80.0 - 100.0 fL [facility] Monocytes (Bld) [#/Vol] 0.35 10*3/uL [facility] Monocytes/100 WBC (Bld) 7.1 % [facility] Neutrophils (Bld) [#/Vol] 2.96 10*3/uL [facility] Neutrophils/100 WBC (Bld) 60.4 % [facility] Nucleated RBC (Bld) [#/Vol] [facility] Nucleated RBC/100 WBC (Bld) [Ratio] 0 % /100 WBC [facility] Platelet mean volume (Bld) [Entitic vol] 8.5 fL Low 9.0 - 12.7 fL [facility] Hospital Platelets (Bld) [#/Vol] 280 10*3/uL [facility] RBC (Bld) [#/Vol] 4.68 10*6/uL 3.90 - 5.2 0 m/uL [facility] WBC (Bld) [#/Vol] 4.91 10*3/uL [facility] Basophils (Bld) [#/Vol] 10*3/uL Normal <0.11 [facility] Comment on above: Order Comment: Speci men Type: BLOOD SPECIMENOrdering Facility: [facility] Address: [address] [place] [address] Performed By: #### 5 7021-8 ####[facility] [id number] [place] [address] [place]#### 4537-7 ####[facility] LABCLIA [id number] [place] [address] [place] Basophils/100 WBC (Bld) 0.4 % Normal [facility] Comment on above: Order Comment: Speci men Type: BLOOD SPECIMENOrdering Facility: [facility] Address: [address] [place] [address] Performed By: #### 5 7021-8 ####[facility] [id number] [place] [address] [place]#### 4537-7 ####[facility] LABCLIA [id number] [place] [address] [place] Differential cell count method Nom (Bld) Auto Normal [facility] Comment on above: Order Comment: Speci men Type: BLOOD SPECIMENOrdering Facility: [facility] Address: [address] [place] [address] Performed By: #### 5 7021-8 ####[facility] [id number] [place] [address] [place]#### 4537-7 ####[facility] LABCLIA [id number] [place] [address] [place] Eosinophils (Bld) [#/Vol] 0.07 10*3/uL Normal <0.46 [facility] Comment on above: Order Comment: Speci men Type: BLOOD SPECIMENOrdering Facility: [facility] Address: [address] [place] [address] Performed By: #### 5 7021-8 ####[facility] MILLWNCLIA [id number] [place] [address] [place]#### 4537-7 ####[facility] LABCLIA [id number] [place] [address] [place] Eosinophils/100 WBC (Bld) 1.4 % Normal [facility] Comment on above: Order Comment: Speci men Type: BLOOD SPECIMENOrdering Facility: [facility] Address: [address] [place] [address] Performed By: #### 5 7021-8 ####[facility] [id number] [place] [address] [place]#### 4537-7 ####[facility] LABCLIA [id number] [place] [address] [place] Erythrocyte distribution width (RBC) [Ratio] 11.9 % Normal 11.5-15.0 [facility] Comment on above: Order Comment: Speci men Type: BLOOD SPECIMENOrdering Facility: [facility] Address: [address] [place] [address] Performed By: #### 5 7021-8 ####[facility] H[facility]ITALLIA [id number] [place] [address] [place]#### 4537-7 ####[facility] LABCLIA [id number] [place] [address] [place] Hematocrit (Bld) [Volume fraction] 41.5 % Normal 36.0-46.0 [facility] Comment on above: Order Comment: Speci men Type: BLOOD SPECIMENOrdering Facility: [facility] Address: [address] [place] [address] Performed By: #### 5 7021-8 ####[facility]ITALL[facility] [id number] [place] [address] [place]#### 4537-7 ####[facility] LABCLIA [id number] [place] [address] [place] Hemoglobin (Bld) [Mass/Vol] 14.3 g/dL Normal 11.5-15.5 [facility] Comment on above: Order Comment: Speci men Type: BLOOD SPECIMENOrdering Facility: [facility] Address: [address] [place] [address] Performed By: #### 5 7021-8 ####[facility] [id number] [place] [address] [place]#### 4537-7 ####[facility] LABCLIA [id number] [place] [address] [place] Immature granulocytes (Bld) [#/Vol] 10*3/uL Normal <0.10 [facility] Comment on above: Order Comment: Speci men Type: BLOOD SPECIMENOrdering Facility: [facility] Address: [address] [place] [address] Performed By: #### 5 7021-8 ####[facility] [id number] [place] [address] [place]#### 4537-7 ####[facility] LABCLIA [id number] [place] [address] [place] Immature granulocytes/100 WBC (Bld) 0.2 % Normal [facility] Comment on above: Order Comment: Speci men Type: BLOOD SPECIMENOrdering Facility: [facility] Address: [address] [place] [address] Performed By: #### 5 7021-8 ####[facility]ITALWNCLIA [id number] [place] [address] [place]#### 4537-7 ####[facility] LABCLIA [id number] [place] [address] [place] Lymphocytes (Bld) [#/Vol] 1.50 10*3/uL Normal 1.00-4.00 [facility] Comment on above: Order Comment: Speci men Type: BLOOD SPECIMENOrdering Facility: [facility] Address: [address] [place] [address] Performed By: #### 5 7021-8 ####[facility]ITALWNCLIA [id number] [place] [address] [place]#### 4537-7 ####[facility] LABCLIA [id number] [place] [address] [place] Lymphocytes/100 WBC (Bld) 30.5 % Normal [facility] Comment on above: Order Comment: Speci men Type: BLOOD SPECIMENOrdering Facility: [facility] Address: [address] [place] [address] Performed By: #### 5 7021-8 ####[facility] MILLWNCLIA [id number] [place] [address] [place]#### 4537-7 ####[facility] LABCLIA [id number] [place] [address] [place] MCH (RBC) [Entitic mass] 30.6 pg Normal 26.0-34.0 [facility] Comment on above: Order Comment: Speci men Type: BLOOD SPECIMENOrdering Facility: [facility] Address: [address] [place] [address] Performed By: #### 5 7021-8 ####[facility] MILLTOWNCLIA [id number] [place] [address] [place]#### 4537-7 ####[facility] LABCLIA [id number] [place] [address] [place] MCHC (RBC) [Mass/Vol] 34.5 g/dL Normal 30.5-36.0 [facility] Comment on above: Order Comment: Speci men Type: BLOOD SPECIMENOrdering Facility: [facility] Address: [address] [place] [address] Performed By: #### 5 7021-8 ####[facility] CENTERNCLIA [id number] [place] [address] [place]#### 4537-7 ####[facility] LABCLIA [id number] [place] [address] [place] MCV (RBC) [Entitic vol] 88.7 fL Normal 80.0-100.0 [facility] Comment on above: Order Comment: Speci men Type: BLOOD SPECIMENOrdering Facility: [facility] Address: [address] [place] [address] Performed By: #### 5 7021-8 ####[facility]ITALL[facility] [id number] [place] [address] [place]#### 4537-7 ####[facility] LABCLIA [id number] [place] [address] [place] Monocytes (Bld) [#/Vol] 0.35 10*3/uL Normal <0.87 [facility] Comment on above: Order Comment: Speci men Type: BLOOD SPECIMENOrdering Facility: [facility] Address: [address] [place] [address] Performed By: #### 5 7021-8 ####[facility] CENTERNCLIA [id number] [place] [address] [place]#### 4537-7 ####[facility] LABCLIA [id number] [place] [address] [place] Monocytes/100 WBC (Bld) 7.1 % Normal [facility] Comment on above: Order Comment: Speci men Type: BLOOD SPECIMENOrdering Facility: [facility] Address: [address] [place] [address] Performed By: #### 5 7021-8 ####[facility] [id number] [place] [address] [place]#### 4537-7 ####[facility] LABCLIA [id number] [place] [address] [place] Neutrophils (Bld) [#/Vol] 2.96 10*3/uL Normal 1.45-7.50 [facility] Comment on above: Order Comment: Speci men Type: BLOOD SPECIMENOrdering Facility: [facility] Address: [address] [place] [address] Performed By: #### 5 7021-8 ####[facility] [id number] [place] [address] [place]#### 4537-7 ####[facility] LABCLIA [id number] [place] [address] [place] Neutrophils/100 WBC (Bld) 60.4 % Normal [facility] Comment on above: Order Comment: Speci men Type: BLOOD SPECIMENOrdering Facility: [facility] Address: [address] [place] [address] Performed By: #### 5 7021-8 ####[facility]ITALL[facility] [id number] [place] [address] [place]#### 4537-7 ####[facility] LABCLIA [id number] [place] [address] [place] Nucleated RBC (Bld) [#/Vol] 10*3/uL Normal <0.01 [facility] Comment on above: Order Comment: Speci men Type: BLOOD SPECIMENOrdering Facility: [facility] Address: [address] [place] [address] Performed By: #### 5 7021-8 ####[facility]ENTERNCLIA [id number] [place] [address] [place]#### 4537-7 ####[facility] LABCLIA [id number] [place] [address] [place] Nucleated RBC/100 WBC (Bld) [Ratio] 0.0 /100 WBC Normal [facility] Comment on above: Order Comment: Speci men Type: BLOOD SPECIMENOrdering Facility: [facility] Address: [address] [place] [address] Performed By: #### 5 7021-8 ####[facility] [id number] [place] [address] [place]#### 4537-7 ####[facility] LABCLIA [id number] [place] [address] [place] Platelet mean volume (Bld) [Entitic vol] 8.5 fL Low 9.0-12.7 [facility] Comment on above: Order Comment: Speci men Type: BLOOD SPECIMENOrdering Facility: [facility] Address: [address] [place] [address] Performed By: #### 5 7021-8 ####[facility]ITALL[facility] [id number] [place] [address] [place]#### 4537-7 ####[facility] LABCLIA [id number] [place] [address] [place] Platelets (Bld) [#/Vol] 280 10*3/uL Normal 150-400 [facility] Comment on above: Order Comment: Speci men Type: BLOOD SPECIMENOrdering Facility: [facility] Address: [address] [place] [address] Performed By: #### 5 7021-8 ####[facility] HOSPITALLAKISHALIA [id number] [place] [address] [place]#### 4537-7 ####[facility] LABCLIA [id number] [place] [address] [place] RBC (Bld) [#/Vol] 4.68 10*6/uL Normal 3.90-5.20 [facility] Comment on above: Order Comment: Speci men Type: BLOOD SPECIMENOrdering Facility: [facility] Address: [address] [place] [address] Performed By: #### 5 7021-8 ####[facility] CENTERNCROBERTA [id number] [place] [address] [place] [facility]#### 4537-7 ####[facility] LABCLIA [id number] [place] [address] [place] WBC (Bld) [#/Vol] 4.91 10*3/uL Normal 3.70-11.00 [facility] Comment on above: Order Comment: Speci men Type: BLOOD SPECIMENOrdering Facility: [facility] Address: [address] [place] [address] Performed By: #### 5 7021-8 ####[facility] MEDICAL CENTERJOHNNIELIA [id number] [place] [address] [place]#### 4537-7 ####[facility] LABCLIA [id number] [place] [address] [place] CNOVon 11-05-2024 CNOV Office Visit (NEMJOSEFA ) BHARTI AKBAR ([id number]) 1945 F NFR Date Time Provider Department 11/05/24 11:30 AM MAYA KATZ During your visit today, we recorded the following information about you: Pulse Blood pressure Weight 66/minute 160/67 54.5 kg Maya Katz PA-C 11/05/2024 1:04 PM Signed [facility] Name: Bharti Akbar Age: [age] year old Gender: female Primary Care Provider: Armando Orozco MD 11/05/2024 - General Neurology, Maya Katz PA-C ASSESSMENT ASSESSMENT/PLAN: 1. Neuropathy - ICD9: 355.9, ICD10: G62.9 (primary diagnosis) Patient with new onset burning, numbness and tingling to the feet bilaterally starting at the toes a few months ago and radiating up. Noting a few falls but known more than previous. Has some difficulty picking up the feet as well which is worsened. Does take B complex but no other risk factors for neuropathy. Does have signs and symptoms of stocking glove neuropathy on exam up to the knee. Discussed ordering basic blood work to look for common causes of neuropathy as well as an EMG study and patient is amenable. 2. Dementia without behavioral disturbance, psychotic disturbance, mood disturbance, or anxiety, unspecified dementia severity, unspecified dementia type (HCC) - ICD9: 294.20, ICD10: F03.90 Main concern today was pain in the legs noted above, notes no significant change in memory, unfortunately unable to repeat MoCA today. Continuing Aricept 10 mg daily, refills were sent. Encouraged conservative therapy including increasing physical and cognitive activity. Discussed only driving locally, no issues with this. 3. Unsteadiness - ICD9: 781.2, ICD10: R26.81 4. Frequent falls - ICD9: V15.88, ICD10: R29.6 Unclear etiology for unsteadiness, will obtain EMG of the lower extremities look for signs of neuropathy. Previous imaging of the central nervous system is negative per radiology. Patient deferring previous second opinion with movement. 5. Lacunar infarction (HCC) - ICD9: 434.91, ICD10: I63.81 No new neurologic symptoms. Previously received TNK, but no positive stroke found on imaging. Continuing aspirin therapy at this time. 6. Right leg weakness - ICD9: 729.89, ICD10: R29.898 Has right leg weakness appreciated on exam, will obtain EMG for further evaluation. Patient agreeable to treatment plan of care at this time, questions were answered. Patient to follow-up after workup is completed. Maya Katz PA-C Alzheimer's Society: Join to learn about many resources and supports for you, as the caregiver Community Resources: E.g. [employer] - A Dementia Friendly [facility] [place] on the [place] [facility]. PULL UP HAND/OT/PT: Speech therapy, Occupational therapy, Physical Therapy Driving: Do you have safety concerns? Power of Location Man/ planning of the patient's will [employer]: Local police will keep records of your loved one if they tend to get lost, and will bring them home. Lifeline: emergency response button/necklace/bracele t Caregiver Health: Important to ensure you are taking care of your mental and physical health so you can care for your loved one SW consult: Do you want a social work referral to understand what resources are available to you? This is a 79 year old female followed for dementia Current medication treatment: aricept 10mg Indication for repeat cognitive testing: No No diagnosis found. No follow-ups on file. Chart, labs,and relevant images reviewed. Chief Complaint:Patient presents with: Established Patient: C/o bilateral legs hurting, numbness, tingling from ankle to knees, tx tylenol, consistent Chart Review: 01/12/24 ASSESSMENT/PLAN: 1. Dementia without behavioral disturbance, psychotic disturbance, mood disturbance, or anxiety, unspecified dementia severity, unspecified dementia type (HCC) - ICD9: 294.20, ICD10: F03.90 (primary diagnosis) Cognition with minimal improvement on Aricept 5mg daily (subjective history with MOCA essentially unchanged). Unfortunately family again does not present with the patient. At this time, difficult to determine what is true symptoms of cognitive decline suggestive of dementia and what might be behavioral or pseudodementia. That said, hippocampal volumes were in the 5% at time of MRI brain in 08/2023. Will continue to treat as dementia and increase Aricept to 10mg daily. Note, pt reports no longer taking Paxil. Advised pt that she should not be driving. Encouraged brain exercises. Advised pt that she should present next visit with family members. 2. Lacunar infarction (HCC) - ICD9: 434.91, ICD10: I63.81 3. Intracranial vascular stenosis - ICD9: 437.9, ICD10: I67.9 Patient just underwent in hospital stroke workup after receiving TNK per [facility] notes. There was no stroke. As with many of patient's complaints, t (more content not included)... Normal [facility] CRP SerPl-mCncon 11-05-2024 CRP [Mass/Vol] mg/L Normal <0.9 [facility] Comment on above: Order Comment: Specsoraida courtney Type: BLOOD SPECIMEN [facility] Address: [address] [place] [address] Performed By: #### 3 016-3, 1988-01 #### [facility] CLIA [id number] [address] OF [facility] Comprehensive metabolic 2000 panelon 11-05-2024 Albumin [Mass/Vol] 4.3 g/dL Normal 3.9-4.9 [facility] Comment on above: Order Comment: Miguel courtney Type: BLOOD SPECIMEN [facility] Address: [address] [place] [address] Performed By: #### 3 016-3, 1988-01 #### [facility] CLIA [id number] [address] ALP [Catalytic activity/Vol] 111 U/L Normal 34-123 [facility] Comment on above: Order Comment: Tobyi sherwin Type: BLOOD SPECIMEN [facility] Address: [address] [place] [address] Performed By: #### 3 016-3, 1988-01 #### [facility] CLIA [id number] [address] [place] [address] [place] ALT With P-5'-P [Catalytic activity/Vol] 24 U/L Normal 7-38 [facility] Comment on above: Order Comment: Speci men Type: BLOOD SPECIMEN [facility] Address: [address] [place] [address] Performed By: #### 3 016-3, , 1988-01 #### [facility] CLIA [id number] [address] [place] [address] [place] Anion gap [Moles/Vol] 11 mmol/L Normal 8-15 [facility] Comment on above: Order Comment: Speci men Type: BLOOD SPECIMEN [facility] Address: [address] [place] [address] Performed By: #### 3 016-3, , 1988-01 #### [facility] CLIA [id number] [address] STATES OF [facility] AST With P-5'-P [Catalytic activity/Vol] 32 U/L Normal 13-35 [facility] Comment on above: Order Comment: Speci men Type: BLOOD SPECIMEN [facility] Address: [address] [place] [address] Performed By: #### 3 016-3, , 1988-01 #### [facility] CLIA [id number] [address] [place] [address] [place] Bilirubin [Mass/Vol] 0.4 mg/dL Normal 0.2-1.3 [facility] Comment on above: Order Comment: Speci men Type: BLOOD SPECIMEN [facility] Address: [address] [place] [address] Performed By: #### 3 016-3, , 1988-01 #### [facility] CLIA [id number] [address] [place] Calcium [Mass/Vol] 9.4 mg/dL Normal 8.5-10.2 [facility] Comment on above: Order Comment: Speci men Type: BLOOD SPECIMEN [facility] Address: [address] [place] [address] Performed By: #### 3 016-3, , 1988-01 #### [facility] CLIA [id number] [address] [place] [address] [place] Chloride [Moles/Vol] 104 mmol/L Normal 98-107 [facility] Comment on above: Order Comment: Speci men Type: BLOOD SPECIMEN [facility] Address: [address] [place] [address] Performed By: #### 3 016-3, , 1988-01 #### [facility] CLIA [id number] [address] [place] [address] [place] CO2 [Moles/Vol] 28 mmol/L Normal 22-30 [facility] Comment on above: Order Comment: Speci men Type: BLOOD SPECIMEN [facility] Address: [address] [place] [address] Performed By: #### 3 016-3, , 1988-01 #### [facility] CLIA [id number] [address] [place] [address] [place] Creatinine [Mass/Vol] 0.88 mg/dL Normal 0.58-0.96 [facility] Comment on above: Order Comment: Speci men Type: BLOOD SPECIMEN [facility] Address: [address] [place] [address] Performed By: #### 3 016-3, , 1988-01 #### [facility] CLIA [id number] [address] [place] Creatinine and Glomerular filtration rate.predicted panel (S/P/Bld) 67 mL/min/1.73m??? Normal >=60 [facility] Comment on above: Order Comment: Speci men Type: BLOOD SPECIMEN [facility]: [facility] Address: [address] [place] [address] Result Comment: Selina mated Glomerular Filtration Rate (eGFR) is calculated using the 2020 CKD-EPI creatinine equation. This equation utilizes serum creatinine, sex, and age as parameters. The creatinine assay has traceable calibration to isotope dilution-mass spectrometry. Refer to KDIGO guidelines for clinical interpretation. In patients with unstable renal function, e.g. those with acute kidney injury, the eGFR may not accurately reflect actual GFR. Performed By: #### 3 016-3, 1988-01 #### [facility] CLIA [id number] 1 [place] [address] [place] Glucose [Mass/Vol] 104 mg/dL High 74-99 [facility] Comment on above: Order Comment: Miguel courtney Type: BLOOD SPECIMEN [facility]: [facility] Address: [address] [id number] Result Comment: The [place] Diabetes Association (ADA) provides guidance for cutoff values for fasting glucose and random glucose. The ADA defines fasting as no caloric intake for at least 8 hours. Fasting plasma glucose results between 100 to 125 mg/dL indicate increased risk for diabetes (prediabetes). Fasting plasma glucose results greater than or equal to 126 mg/dL meet the criteria for diagnosis of diabetes. In the absence of unequivocal hyperglycemia, results should be confirmed by repeat testing. In a patient with classic symptoms of hyperglycemia or hyperglycemic crisis, random plasma glucose results greater than or equal to 200 mg/dL meet the criteria for diagnosis of diabetes. Reference: Standards of Medical Care in Diabetes 2016, [place] Diabetes Association. Diabetes Care. 2016.39(Suppl 1). Performed By: #### 3 016-3, 1988-01 #### [facility] CLIA [id number] [address] [place] [address] [place] Potassium [Moles/Vol] 4.3 mmol/L Normal 3.7-5.1 [facility] Comment on above: Order Comment: Miguel courtney Type: BLOOD SPECIMEN [facility] Facility: [facility] Address: [address] [place] [address] Performed By: #### 3 016-3, , 1988-01 #### [facility] CLIA [id number] 1 [place] [address] [place] Protein [Mass/Vol] 7.0 g/dL Normal 6.3-8.0 [facility] Comment on above: Order Comment: Speci men Type: BLOOD SPECIMEN [facility] [facility] Address: [address] [place] [address] Performed By: #### 3 016-3, , 1988-01 #### [facility] CLIA [id number] [address] [place] Sodium [Moles/Vol] 143 mmol/L Normal 136-144 [facility] Comment on above: Order Comment: Speci men Type: BLOOD SPECIMEN Ordering Facility: [facility] Address: [address] [place] [address] Performed By: #### 3 016-3, , 1988-01 #### [facility] CLIA [id number] [address] [place] Urea nitrogen [Mass/Vol] 18 mg/dL Normal 7-21 [facility] Comment on above: Order Comment: Speci men Type: BLOOD SPECIMEN Ordering Facility: [facility] Address: [address] [place] [address] Performed By: #### 3 016-3, , 1988-01 #### [facility] CLIA [id number] 1 [place] [address] [place] ESR Westergren method (Bld) [Velocity]on 11-05-2024 ESR (Bld) [Velocity] 5 mm/h Normal 0-20 [facility] Comment on above: Order Comment: Speci men Type: BLOOD SPECIMENOrdering Facility: [facility] Address: [address] [place] [address] Performed By: #### 5 7021-8 ####[facility] [id number] [place] [address] [place]#### 4537-7 ####[facility] [id number] [place] [address] [place] HbA1c (Bld)on 11-05-2024 Average glucose Estimated from glycated hemoglobin (Bld) [Mass/Vol] 85 mg/dL Normal [facility] Comment on above: Order Comment: Miguel courtney Type: BLOOD SPECIMEN Ordering Facility: [facility] Address: [address] [place] [address] Result Comment: eAG: (Estimated average glucose) is a calculated value from HgbA1c and is international sales representative of the average blood glucose level in the last 2-3 month period. Performed By: #### 3 016-3, 02476-7, 1988-01 #### [facility] CLIA [id number] [address] [place] [address] [place] HbA1c (Bld) [Mass fraction] 4.6 % Normal 4.3-5.6 [facility] Comment on above: Order Comment: Miguel courtney Type: BLOOD SPECIMEN Ordering Facility: [facility] Address: [address] [place] [address] Result Comment: Amer ican Diabetes Association guidelines indicate that patients with HgbA1c in the range 5.7-6.4% are at increased risk for development of diabetes, and intervention by lifestyle modification may be beneficial. HgbA1c greater or equal to 6.5% is considered diagnostic of diabetes. Performed By: #### 3 016-3, 1988-01 #### [facility] CLIA [id number] [address] [place] Methylmalonate SerPl-sCncon 11-05-2024 Methylmalonate [Moles/Vol] 0.23 umol/L Normal <=0.40 [facility] Comment on above: Order Comment: Miguel courtney Type: BLOOD SPECIMEN Ordering Facility: [facility] Address: [address] [place] [address] Result Comment: This test was developed, and its performance characteristics determined by the [facility] Department of Pathology and Laboratory Medicine. It has not been cleared or approved by the FDA. The [facility] Department of Pathology and Laboratory Medicine is regulated under CLIA as qualified to perform high-complexity testing. This test is used for clinical purposes. It should not be regarded as investigational or for research. Performed By: #### 3 016-3, 40562-2, 1988-01 #### [facility] CLIA [id number] 1 [place] [address] [place] PROTEIN ELECTROPHORESIS SERU M WITH JUANA (P)on 11-05-2024 Albumin [Mass/Vol] 4.04 g/dL Normal 3.43-5.41 [facility] Comment on above: Order Comment: Speci men Type: BLOOD SPECIMEN Ordering Facility: [facility] Address: [address] [place] [address] Performed By: #### 3 016-3, 1988-01 #### [facility] CLIA [id number] 1 [place] [address] [place] Alpha 1 globulin Elph [Mass/Vol] 0.26 g/dL Normal 0.18-0.43 [facility] Comment on above: Order Comment: Speci men Type: BLOOD SPECIMEN Ordering Facility: [facility] Address: [address] [place] [address] Performed By: #### 3 016-3, 1988-01 #### [facility] CLIA [id number] 1 [place] [address] [place] Alpha 2 globulin Elph [Mass/Vol] 0.69 g/dL Normal 0.42-0.98 [facility] Comment on above: Order Comment: Speci men Type: BLOOD SPECIMEN Ordering Facility: [facility] Address: [address] [place] [address] Performed By: #### 3 016-3, 1988-01 #### [facility] CLIA [id number] [address] [place] [address] [place] Beta globulin Elph [Mass/Vol] 0.80 g/dL Normal 0.61-1.17 [facility] Comment on above: Order Comment: Speci men Type: BLOOD SPECIMEN Ordering Facility: [facility] Address: [address] [place] [address] Performed By: #### 3 016-3, 1988-01 #### [facility] CLIA [id number] [address] [place] [address] [place] COMMENT (SERUM PROT ELECTRO) Monoclonal Protein analysis (immunofixation) is not indicated. Normal [facility] Comment on above: Order Comment: Speci men Type: BLOOD SPECIMEN Ordering Facility: [facility] Address: [address] [place] [address] Performed By: #### 3 016-3, , 1988-01 #### [facility] CLIA [id number] [address] [place] Gamma globulin Elph [Mass/Vol] 0.71 g/dL Normal 0.53-1.51 [facility] Comment on above: Order Comment: Speci men Type: BLOOD SPECIMEN Ordering Facility: [facility] Address: [address] [place] [address] Performed By: #### 3 016-3, , 1988-01 #### [facility] CLIA [id number] [address] M-PROTEIN LOCATION Normal [facility] Comment on above: Order Comment: Speci men Type: BLOOD SPECIMEN Ordering Facility: [facility] Address: [address] [place] [address] Result Comment: Not Applicable. Performed By: #### 3 016-3, , 1988-01 #### [facility] CLIA [id number] [address] [place] Protein Fractions [Interp] No definitive M protein is identified on protein electrophoresis. Normal No definitive M protein is identified on protein electrophore sis. [facility] Comment on above: Order Comment: Speci men Type: BLOOD SPECIMEN Ordering Facility: [facility] Address: [address] [place] [address] Performed By: #### 3 016-3, , 1988-01 #### [facility] CLIA [id number] [address] Protein.monoclonal Elph [Mass/Vol] 0.00 g/dL Normal <=0.00 [facility] Comment on above: Order Comment: Speci men Type: BLOOD SPECIMEN Ordering Facility: [facility] Address: [address] [place] [address] Performed By: #### 3 016-3, , 1988-01 #### [facility] CLIA [id number] [address] SPE STAFF REVIEW Reviewed by Je Quinn MD, Ph.D ([id number]) Normal [facility] Comment on above: Order Comment: Speci men Type: BLOOD SPECIMEN Ordering Facility: [facility] Address: [address] [place] [address] Performed By: #### 3 016-3, , 1988-01 #### [facility] CLIA [id number] [address] [place] Prot SerPl-mCncon 11-05-2024 Protein [Mass/Vol] 6.5 g/dL Normal 6.3-8.0 [facility] Comment on above: Order Comment: Speci men Type: BLOOD SPECIMEN Ordering Facility: [facility] Address: [address] [place] [address] Performed By: #### 3 016-3, , 1988-01 #### [facility] CLIA [id number] [address] [place] [address] OF [facility] TSH SerPl-aCncon 11-05-2024 TSH Qn 0.278 m[IU]/L Normal 0.270-4.200 [facility] Comment on above: Order Comment: Speci men Type: BLOOD SPECIMEN Ordering Facility: [facility] Address: [address] [place] [address] Performed By: #### 3 016-3, , 1988-01 #### [facility] CLIA [id number] [address] [place] VITAMIN B1 (THIAMINE), WHOLE BLOODon 11-05-2024 Thiamine (Bld) [Moles/Vol] 259.8 nmol/L High 84.3-213.3 [facility] Comment on above: Order Comment: Speci men Type: BLOOD SPECIMEN Ordering Facility: [facility] Address: [address] [place] [address] Result Comment: This assay measures the concentration of thiamine diphosphate (TDP), the primary active form of vitamin B1. Approximately 90 percent of vitamin B1 present in whole blood is TDP. Thiamine and thiamine monophosphate, which comprise the remaining 10 percent, are not measured. This test was developed, and its performance characteristics determined by the [facility] Department of Pathology and Laboratory Medicine. It has not been cleared or approved by the FDA. The [facility] Department of Pathology and Laboratory Medicine is regulated under CLIA as qualified to perform high-complexity testing. This test is used for clinical purposes. It should not be regarded as investigational or for research. Performed By: #### 3 016-3, 62286-0, 1988-01 #### [facility] [id number] [address] [place] [address] [place] VITAMIN B6/PYRIDOXINon 11-05 VITAMIN B6 125.7 nmol/L High 20.0-125.0 [facility] Comment on above: Order Comment: Miguel courtney Type: BLOOD SPECIMEN Ordering Facility: [facility] Address: [address] [place] [address] Result Comment: INTE RPRETIVE INFORMATION: Vitamin B6 (Pyridoxal 5-Phosphate) Pyridoxal 5'-phosphate measured in a specimen collected following an 8-hour or overnight fast accurately indicates vitamin B6 nutritional status. Non-fasting specimen concentration reflects recent vitamin intake. This test was developed and its performance characteristics determined by [facility] It has not been cleared or approved by the US Food and Drug Administration. This test was performed in a CLIA certified laboratory and is intended for clinical purposes. Performed By: [facility] [address] [place] [address] Manager Sales And Marketing: Jaguar Chaudhry MD, PhD CLIA Number: [id number] Performed By: #### V ITB6 #### [facility] CLIA [id number] [address] [place] [address] Vit B12 SerPl-mCncon 025 Cobalamin (Vitamin B12) [Mass/Vol] 577 pg/mL Normal 232-1245 [facility] Comment on above: Order Comment: Miguel courtney Type: BLOOD SPECIMEN Ordering Facility: [facility] Address: [address] [place] [address] Performed By: #### 3 016-3, 09570-8, 1988-01 #### [facility] CLIA [id number] 1 [place] [address] [place] TSH SerPl-aCncon 09-30-2024 TSH Qn 1.830 m[IU]/L Normal 0.270-4.200 [facility] Comment on above: Order Comment: Speci men Type: BLOOD SPECIMENOrdering Facility: [facility] Address: [address] [place] [address] Performed By: #### 3 016-3 ####[facility]CLIA [id number] [facility] [id number] [place] Jean [facility] BHARTI AKBAR ([id number]) 1945 F NFR Date Time Provider Department 09/25/24 [facility] LYNN [facility] During your visit today, we recorded the following information about you: Emelia Lynn APRN.FREDY 09/25/2024 10:16 AM Signed Can you please call the patient and let her know that I reviewed her foot x-ray results. X-ray showed No acute fracture or dislocation. Severe first MTP joint osteoarthritis. Mild scattered interphalangeal joint space narrowing which is consistent with arthritis. I would recommend that she keep upcoming appointment with podiatry for further evaluation. Thank you. Emelia Lynn APRN.Kim Waite LPN 09/25/2024 10:22 AM Signed TC to pt. LM to call office, ask for triage nurse to get results. MARIXA Jarvis Stephanie, CARIE 09/25/2024 3:15 PM Signed Patient notified of results and provider's instructions. Patient verbalizes understanding. Shannon Elkins RN Allergies As of Date: 09/25/2024 Noted Allergy Reaction CONTRAST DYE (IODINE) 09/08/2021 9 - Itching Comments: Pt felt like she was going to or have a seizure, per pt ALBUTEROL 11/23/2018 5 - Intolerance AMOXIL (AMOXICILLIN) 10/25/2012 14 - Other: See Comments Comments: Thick tongue CLINDAMYCIN 03/29/2023 7 - Swelling CODEINE 05/10/2005 11 - Vomiting DIATRIZOATE MEGLUMINE 08/30/2021 9 - Itching DYAZIDE (TRIAMTERENE-HYDROCHLOR OT*11/23/2012 5 - Intolerance Comments: incontinence urine ERYTHROMYCIN 05/10/2005 8 - GI Upset FLEXERIL (CYCLOBENZAPRINE) 05/10/2005 1 - Mental Status Change OXYCODONE 10/10/2016 11 - Vomiting OXYCONTIN (OXYCODONE HCL) 03/01/2012 8 - GI Upset 11 - Vomiting TESSALON PERLES (BENZONATATE) 05/10/2005 8 - GI Upset TETANUS VACCINES AND TOXOID 10/26/2005 VICODIN (HYDROCODONE-ACETAMINOP HE*11/23/2010 5 - Intolerance Comments: Twitching, shaky Date Reviewed: 09/19/2024 Reviewed by: Kim Sena LPN - Fully Assessed Reason for Visit: Results [95] Cmt: Foot Xray Prescriptions as of 09/25/2024 - traZODone (DESYREL) 50 mg tablet Take 2 tablets by mouth daily at bedtime. - donepezil (ARICEPT) 10 mg tablet Take 1 tablet by mouth daily at bedtime. - levothyroxine (LEVOXYL) 100 mcg tablet Take 1 tablet by mouth once daily. Take on empty stomach. For Thyroid. - lisinopril (ZESTRIL) 20 mg tablet Take 1 tablet by mouth once daily. - atorvastatin (LIPITOR) 40 mg tablet AT BEDTIME - carvedilol (COREG) 6.25 mg tablet Take 6.25 mg by mouth two times a day with meals. - Cholecalciferol, Vitamin D3, 50 mcg (2,000 unit) cap DAILY - aspirin, enteric coated (ASPIRIN, ENTERIC COATED) 81 mg EC tablet Take 1 tablet by mouth once daily. - COMPOUNDED PRESCRIPTION Home blood pressure monitor. DX: Essential HTN I10 - CENTRUM SILVER ORAL TAB Take one(1) tablet daily. Meds Comments as of 03/07/2023: Started taking Osteo BiFlex OTC. 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 09/15/2016 Unspecified vitamin D deficiency [E55.9] 08/16/2006 DEPRESSIVE DISORDER NEC [F32.89] 01/23/2007 Attention deficit disorder without mention of h*05/25/2007 09/15/2016 Closed fracture of cervical spine (HCC) [S12.9X*11/03/2010 09/15/2016 Hypertension [I10] 03/23/2011 07/07/2015 Multinodular goiter [E04.2] 03/23/2011 09/15/2016 SOB (shortness of breath) [R06.02] 03/23/2011 12/25/2013 Osteopenia [M85.80] 01/25/2012 Postsurgical hypothyroidism [E89.0] 03/20/2012 Migraine variant [G43.809] 11/18/2012 Post-traumatic headache [G44.309] 10/02/2013 Osteoarthritis of carpometacarpal joints of bot*10/02/2013 De Quervain's tenosynovitis, right [M65.4] 03/26/2014 01/02/2017 Iron deficiency anemia due to chronic blood los*03/06/2015 09/15/2016 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.1] 07/07/2015 09/15/2016 Essential hypertension [I10] 07/07/2015 Primary osteoarthritis of first carpometacarpal* 017 HLD (hyperlipidemia) [E78.5] 09/23/2016 Coronary artery disease involving tejon webster*09/23/2016 Fibromyalgia [M79.7] 10/02/2019 Ischemic colitis (HCC) [K55.9] 03/07/2023 06/10/2024 Segmental colitis associated with diverticulosi* 3 11/20/2023 Angina pectoris (HCC) [I20.9] 03/07/2023 11/20/2023 Encounter Status:Closed by SHANNON ELKINS on 09/25/24 Normal [facility] Cardiology Visit Reporton Cardiology Visit Report [facility] [address] [place] [address] OFFICE VISIT Date of Service: 09/25/24 MR#: [id number] Acct: [id number] Name: BHARTI AKBAR Rep #: [id number] 5 : 1945 Provider: SARAH Webber Age/Sex: 78/F [place] [facility] Status: Signed HPI HPI History of Present Illness Details: Bharti Akbar is a 78-year-old white female with a history of CAD, PCI, aortic valve disorder, carotid artery stenosis, hyperlipidemia, CVA and hypertension. She was in the ER 09/18/23 with CP and elevated BP. Cardiac work up was negative. She is on Donzepil, this is for vascular dementia. Pt is not needing a cane, but still does have foot drop in her right foot. She does have some swelling in that foot. She does not have any chest pain/heaviness. She does not have any worsening SOB, She does have SOB with exertion. She does not have any palpitations. She does not have any lightheadedness/dizzine ss. 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 Is patient in pain?: No Allergies albuterol Allergy (Intermediate, Verified 09/25/24 11:24) GI upset cyclobenzaprine (From Flexeril) Allergy (Intermediate, Verified 09/25/24 11:24) mental status change hydrocodone (From Vicodin) Allergy (Intermediate, Verified 09/25/24 11:24) muscle twitching oxycodone Allergy (Intermediate, Verified 09/25/24 11:24) Vomiting amoxicillin Allergy (Mild, Verified 09/25/24 11:24) Swelling clindamycin Allergy (Mild, Verified 09/25/24 11:24) Swelling diatrizoate meglumine Allergy (Mild, Verified 09/25/24 11:24) Itching Tetanus Vaccines and Toxoid Allergy (Mild, Verified 09/25/24 11:24) Hives codeine Adverse Reaction (Intermediate, Verified 09/25/24 11:24) Nausea Vomiting benzonatate (From Tessalon Perles) Adverse Reaction (Mild, Verified 09/25/24 11:24) Vomiting hydrochlorothiazide (From Dyazide) Adverse Reaction (Mild, Verified 09/25/24 11:24) intolerance triamterene (From Dyazide) Adverse Reaction (Mild, Verified 09/25/24 11:24) intolerance erythromycin base Adverse Reaction (Verified 09/25/24 11:24) Nausea Medications ???Medication ???Instructions ???Recorded ???Confirmed ???Type carvedilol 6.25 mg tablet (Coreg) 6.25 mg PO BID blood pressure #60 10/16/23 09/25/24 Rx tabs donepezil 5 mg tablet 5 mg PO DAILY memory 10/16/23 09/25/24 History aspirin 81 mg tablet,delayed 81 mg PO DAILY 11/29/23 09/25/24 History release (Adult Low Dose Aspirin) levothyroxine 100 mcg tablet 88 mcg PO DAILY thyroid 11/29/23 09/25/24 History lisinopril 20 mg tablet 20 mg PO BID blood pressure #60 11/29/23 09/25/24 Rx tabs Lactobacil.acidophilus- Bifido.animalis 1 cap PO DAILY digestion 03/15/24 09/25/24 History 5 billion cell sprinkle capsule (Probiotic) glucosamine-chondroitin 250 mg-200 2 tab PO QPC 03/15/24 09/25/24 History mg tablet (Osteo Bi-Flex) multivitamin with minerals-ferrous 1 tab PO DAILY 03/15/24 09/25/24 History sulfate 4.5 mg iron tablet (One Daily Multivitamins with Minerals) cholecalciferol (vitamin D3) 25 25 mcg PO QDAY 08/30/24 09/25/24 History mcg (1,000 unit) capsule atorvastatin 40 mg tablet 40 mg PO QHS cholesterol #90 tabs 09/02/24 09/25/24 Rx famotidine 20 mg tablet 20 mg PO DAILY #90 TABLETS 09/09/24 09/25/24 Rx Have you fallen in the past year?: Yes (balance from CVA) [facility] Medical History (Updated 09/25/24 @ 11:57 by Qing Sheridan PA, PA) Aortic stenosis Gait disturbance Fatigue Lung nodule, multiple Iron deficiency anemia due to chronic blood loss History of GI bleed Diarrhea C. 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 Normal [facility] 09-23-2024 [facility] BHARTI AKBAR ([id number]) 1945 F NFR Date Time Provider Department 09/23/24 ARMANDO OROZCO [facility] During your visit today, we recorded the following information about you: Kika Costa LPN 09/23/2024 10:26 AM Signed Pt calling to request lab work today. She was seen on 09-19-24 by Emelia and forgot to ask. She would like labs done on Thyroid, labs regarding arthritis. Pt not feeling well whether it is arthritis or fibromyalgia. Pt has an apt in [place] today and was hoping she could do this also. Please call pt to let her know when the labs are in. MARIXA Barber Jesse, APRN.FREDY 09/23/2024 1:46 PM Signed TSH placed. I reviewed her chart, she had a complete autoimmune, rheumatoid workup in December 2023. This will not change. No need to repeat. Kushal Weldon APRN.Winnie Canales LPN 09/23/2024 1:49 PM Signed Patient notified. Verbalized understanding. Allergies As of Date: 09/23/2024 Noted Allergy Reaction CONTRAST DYE (IODINE) 09/08/2021 9 - Itching Comments: Pt felt like she was going to or have a seizure, per pt ALBUTEROL 11/23/2018 5 - Intolerance AMOXIL (AMOXICILLIN) 10/25/2012 14 - Other: See Comments Comments: Thick tongue CLINDAMYCIN 03/29/2023 7 - Swelling CODEINE 05/10/2005 11 - Vomiting DIATRIZOATE MEGLUMINE 08/30/2021 9 - Itching DYAZIDE (TRIAMTERENE-HYDROCHLOR OT*11/23/2012 5 - Intolerance Comments: incontinence urine ERYTHROMYCIN 05/10/2005 8 - GI Upset FLEXERIL (CYCLOBENZAPRINE) 05/10/2005 1 - Mental Status Change OXYCODONE 10/10/2016 11 - Vomiting OXYCONTIN (OXYCODONE HCL) 03/01/2012 8 - GI Upset 11 - Vomiting TESSALON PERLES (BENZONATATE) 05/10/2005 8 - GI Upset TETANUS VACCINES AND TOXOID 10/26/2005 VICODIN (HYDROCODONE-ACETAMINOP HE*11/23/2010 5 - Intolerance Comments: Twitching, shaky Date Reviewed: 09/19/2024 Reviewed by: Kim Sena LPN - Fully Assessed Reason for Visit: requesting lab orders [Other] Primary Visit Diagnosis:Hypothyroidis m, acquired [E03.9] Order(s):THYROID STIMULATING HORMONE [SQTSH] Order #: [id number] FUTURE Prescriptions as of 09/23/2024 - traZODone (DESYREL) 50 mg tablet Take 2 tablets by mouth daily at bedtime. - donepezil (ARICEPT) 10 mg tablet Take 1 tablet by mouth daily at bedtime. - levothyroxine (LEVOXYL) 100 mcg tablet Take 1 tablet by mouth once daily. Take on empty stomach. For Thyroid. - lisinopril (ZESTRIL) 20 mg tablet Take 1 tablet by mouth once daily. - atorvastatin (LIPITOR) 40 mg tablet AT BEDTIME - carvedilol (COREG) 6.25 mg tablet Take 6.25 mg by mouth two times a day with meals. - Cholecalciferol, Vitamin D3, 50 mcg (2,000 unit) cap DAILY - aspirin, enteric coated (ASPIRIN, ENTERIC COATED) 81 mg EC tablet Take 1 tablet by mouth once daily. - COMPOUNDED PRESCRIPTION Home blood pressure monitor. DX: Essential HTN I10 - CENTRUM SILVER ORAL TAB Take one(1) tablet daily. Meds Comments as of 03/07/2023: Started taking Osteo BiFlex OTC. 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 09/15/2016 Unspecified vitamin D deficiency [E55.9] 08/16/2006 DEPRESSIVE DISORDER NEC [F32.89] 01/23/2007 Attention deficit disorder without mention of h*05/25/2007 09/15/2016 Closed fracture of cervical spine (HCC) [S12.9X*11/03/2010 09/15/2016 Hypertension [I10] 03/23/2011 07/07/2015 Multinodular goiter [E04.2] 03/23/2011 09/15/2016 SOB (shortness of breath) [R06.02] 03/23/2011 12/25/2013 Osteopenia [M85.80] 01/25/2012 Postsurgical hypothyroidism [E89.0] 03/20/2012 Migraine variant [G43.809] 11/18/2012 Post-traumatic headache [G44.309] 10/02/2013 Osteoarthritis of carpometacarpal joints of bot*10/02/2013 De Quervain's tenosynovitis, right [M65.4] 03/26/2014 01/02/2017 Iron deficiency anemia due to chronic blood los*03/06/2015 09/15/2016 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.1] 07/07/2015 09/15/2016 Essential hypertension [I10] 07/07/2015 Primary osteoarthritis of first carpometacarpal* 017 HLD (hyperlipidemia) [E78.5] 09/23/2016 Coronary artery disease involving tejon webster*09/23/2016 Fibromyalgia [M79.7] 10/02/2019 Ischemic colitis (HCC) [K55.9] 03/07/2023 06/10/2024 Segmental colitis associated with diverticulosi*11/20/2023 Angina pectoris (HCC) [I20.9] 03/07/2023 11/20/2023 Encounter Status:Closed by WINNIE CUNNINGHAM on 09/23/24 [facility] CNOVon 09-19-2024 [facility] BHARTI AKBAR ([id number]) 1945 F NFR Date Time Provider Department 09/19/24 2:20 PM [facility] During your visit today, we recorded the following information about you: Pulse Respiration Blood pressure Weight 69/minute 16/minute 140/84 55.5 kg Emelia Lynn APRN.PHARMACOVIGILANCE SAFETY EXPERT 09/19/2024 3:23 PM Signed This is a 78 year old female who presents today with: Patient presents with: Acute Visit: right foot swelling - injury tripped up the stairs HISTORY OF PRESENT ILLNESS: Bharti Akbar is a 78 year old female. Patient presents with: Acute Visit: right foot swelling - injury tripped up the stairs Here in the office for right foot and ankle pain. Started about 2 months ago, tripped going into the house. Refers that pain and swelling is getting worse. Taking Tylenol and applying ice as needed. Has noticed numbness and tingling in the foot that seems to wax and wane. History of intracranial vascular stenosis, chronic lacunar infarct on MRI brain. Following With neurology. 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 07/07/2015 HLD (hyperlipidemia) HTN (hypertension) Iron deficiency anemia due to chronic blood loss 03/06/2015 Kidney stone Lens replaced by other means - Right Eye 12/26/2014 Memory loss Osteoarthrosis, unspecified whether generalized or localized, other specified sites Other vitreous opacities - Both Eyes 07/07/2014 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 S/P laser cataract surgery - Right Eye 12/26/2014 S/P LASIK surgery of both eyes - Both Eyes 07/07/2014 Tear film insufficiency, unspecified 12/11/2014 Unspecified constipation PAST SURGICAL HISTORY Procedure Laterality Date APPENDECTOMY 1994 ARTHRP INTERPOS INTERCARPAL/METACARPAL JOINTS Right 10/07/2016 Right thumb CMC arthroplasty ; THYROIDECTOMY TOTAL OR COMPLETE 02/08/2012 COLONOSCOPY FLX DX W/COLLJ SPEC WHEN PFRMD 08/03/2005 Colonoscopy COLONOSCOPY GEN ANES 08/26/2020 Repeat in 5-10 years COLONOSCOPY W/BIOPSY SINGLE/MULTIPLE 06/19/2015 normal colon CORRJ HLX VLGS BNCTY SESMDC W/DOUBLE OSTEOTOMY 2004 RIGHT FOOT DILATION AND CURETTAGE DXAND/THER NONOBSTETRIC 1979 AFTER MISCARRAGE EGD 08/26/2020 EGD TRANSORAL BIOPSY SINGLE/MULTIPLE 06/19/2015 gastritis ESOPHAGOGASTRODUODENOSC OPY TRANSORAL DIAGNOSTIC 08/03/2005 EGD PAST SURGICAL HISTORY OF 1975 RECTAL WALL REPAIR PAST SURGICAL HISTORY OF 2002 Lasik Surgery on both eyes ([place]) PAST SURGICAL HISTORY OF 2010 broken neck PAST SURGICAL HISTORY OF 08/2015 Bare metal stent/ graft of heart x 1 PRQ CARDIAC STENT W/ANGIO 1 VSL 09/01/2015 Mid Lad TONSILLECTOMY PRIMARY/SECONDARY TOTAL ABDOMINAL HYSTERECT W/WO RMVL TUBE OVARY 1994 Hysterectomy, TAHBSO XCAPSL CTRC RMVL INSJ IO LENS PROSTH W/O ECP 12/25/2014 Cataract Extraction with Femtosecond Laser (LenSx)-right eye ALLERGIES Contrast Dye [Iodine], Albuterol, Amoxil [Amoxicillin], Clindamycin, Codeine, Diatrizoate Meglumine, Dyazide [Triamterene-Hydrochlor othiazid], Erythromycin, Flexeril [Cyclobenzaprine], Oxycodone, Oxycontin [Oxycodone Hcl], Tessalon Perles [Benzonatate], Tetanus Vaccines And Toxoid, and Vicodin [Hydrocodone-Acetaminop hen] MEDICATIONS Current Outpatient Medications Medication Sig traZODone (DESYREL) 50 mg tablet Take 2 tablets by mouth daily at bedtime. donepezil (ARICEPT) 10 mg tablet Take 1 tablet by mouth daily at bedtime. levothyroxine (LEVOXYL) 100 mcg tablet Take 1 tablet by mouth once daily. Take on empty stomach. For Thyroid. lisinopril (ZESTRIL) 20 mg tablet Take 1 tablet by mouth once daily. atorvastatin (LIPITOR) 40 mg tablet AT BEDTIME carvedilol (COREG) 6.25 mg tablet Take 6.25 mg by mouth two times a day with meals. Cholecalciferol, Vitamin D3, 50 mcg (2,000 unit) cap DAILY aspirin, enteric coated (ASPIRIN, ENTERIC COATED) 81 mg EC tablet Take 1 tablet by mouth once daily. COMPOUNDED PRESCRIPTION Home blood pressure monitor. DX: Essential HTN I10 CENTRUM SILVER ORAL TAB Take one(1) tablet daily. No current facility-administered medications for this visit. FAMILY HISTORY Problem Relation Age of Onset Alzheimer's Disease Mother Heart Mother Heart Father 83 years old Hypertension Father Stroke Father Cataract Father other (parkinson's) Father Colon Cancer Maternal Aunt Vanessa (more content not included)... Normal [facility] XR FOOT 3V AP/LAT/OBL RTon 0 09-19-2024 XR FOOT 3V AP/LAT/OBL RT * * *Final Report* * * DATE OF EXAM: Sep 19 2024 3:00PM WOX [id number] - XR FOOT 3V AP/LAT/OBL RT / PROCEDURE REASON: multiple diagnoses * * * * Physician Interpretation * * * * EXAMINATION / TECHNIQUE: XR FOOT 3V AP/LAT/OBL RT HISTORY: Right foot pain for several months after fall injury. Patient describes pain in entire foot. Foot pain, right Weakness of foot, right COMPARISON: 12/05/2019. RESULT: No acute fracture or dislocation. Severe first MTP joint osteoarthritis. Mild scattered interphalangeal joint space narrowing. No osseous erosion. IMPRESSION: No acute bony abnormality. Severe first MTP joint osteoarthritis. Transformation Specialist: FLORINDA Transcribe Date/Time: Sep 22 2024 7:23P Dictated by : JAGUAR BRYAN MD This examination was interpreted and the report reviewed and electronically signed by: JAGUAR BRYAN MD on Sep 22 2024 7:24PM EST [id number] Normal [facility] MR/BMS.BVSon 08-30-2024 MR/BMS.BVS [facility] Vascular Surgery [address] [place] [address] OFFICE VISIT Date of Service: 08/30/24 MR#: [id number] Acct: [id number] Name: BHARTI AKBAR Rep #: [id number] : 1945 Provider: SARAH Valdivia Age/Sex: 78/F Location: [facility] Status: Signed Intake Vital Signs 03/15/24 14:34 08/30/24 11:35 Height 5 ft 3 in 5 ft 3 in Weight: 118 lb 121 lb BMI 20.9 21.4 BP 158/62 H 144/71 H Blood Pressure Location Lt brachial Lt brachial Position Sitting Sitting Respiration 16 14 Pulse 61 81 Pulse Source Monitor Monitor Temp 98.4 F Temp Source Temporal Pulse Oximetry (%) 100 Oxygen Delivery Method room air Intake Visit Reasons: 1 Y FU Chief Complaint: f/u anemia, GIB Accompanied by: Self Is patient in pain?: No Allergies albuterol Allergy (Intermediate, Verified 08/30/24 11:33) GI upset cyclobenzaprine (From Flexeril) Allergy (Intermediate, Verified 08/30/24 11:33) mental status change hydrocodone (From Vicodin) Allergy (Intermediate, Verified 08/30/24 11:33) muscle twitching oxycodone Allergy (Intermediate, Verified 08/30/24 11:33) Vomiting amoxicillin Allergy (Mild, Verified 08/30/24 11:33) Swelling clindamycin Allergy (Mild, Verified 08/30/24 11:33) Swelling diatrizoate meglumine Allergy (Mild, Verified 08/30/24 11:33) Itching Tetanus Vaccines and Toxoid Allergy (Mild, Verified 08/30/24 11:33) Hives codeine Adverse Reaction (Intermediate, Verified 08/30/24 11:33) Nausea Vomiting benzonatate (From Tessalon Perles) Adverse Reaction (Mild, Verified 08/30/24 11:33) Vomiting hydrochlorothiazide (From Dyazide) Adverse Reaction (Mild, Verified 08/30/24 11:33) intolerance triamterene (From Dyazide) Adverse Reaction (Mild, Verified 08/30/24 11:33) intolerance erythromycin base Adverse Reaction (Verified 08/30/24 11:33) Nausea Medications ???Medication ???Instructions ???Recorded ???Confirmed ???Type carvedilol 6.25 mg tablet (Coreg) 6.25 mg PO BID blood pressure #60 10/16/23 08/30/24 Rx tabs donepezil 5 mg tablet 5 mg PO DAILY memory 10/16/23 08/30/24 History atorvastatin 40 mg tablet 40 mg PO QHS cholesterol 11/13/23 08/30/24 History famotidine 20 mg tablet 20 mg PO DAILY reflux 11/13/23 08/30/24 History aspirin 81 mg tablet,delayed 81 mg PO DAILY 11/29/23 08/30/24 History release (Adult Low Dose Aspirin) levothyroxine 100 mcg tablet 88 mcg PO DAILY thyroid 11/29/23 08/30/24 History lisinopril 20 mg tablet 20 mg PO BID blood pressure #60 11/29/23 08/30/24 Rx tabs amlodipine 5 mg tablet (Norvasc) 5 mg PO DAILY #30 tabs 01/31/24 08/30/24 Rx Lactobacil.acidophilus- Bifido.animalis 1 cap PO DAILY digestion 03/15/24 08/30/24 History 5 billion cell sprinkle capsule (Probiotic) glucosamine-chondroitin 250 mg-200 2 tab PO QPC 03/15/24 08/30/24 History mg tablet (Osteo Bi-Flex) multivitamin with minerals-ferrous 1 tab PO DAILY 03/15/24 08/30/24 History sulfate 4.5 mg iron tablet (One Daily Multivitamins with Minerals) cholecalciferol (vitamin D3) 25 25 mcg PO QDAY 08/30/24 08/30/24 History mcg (1,000 unit) capsule vitamin E (dl, acetate) 180 mg 180 mg PO QDAY 08/30/24 08/30/24 History (400 unit) capsule Have you fallen in the past year?: Yes [facility] Medical History Gait disturbance Fatigue Lung nodule, multiple Iron deficiency anemia due to chronic blood loss History of GI bleed Diarrhea C. 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 Normal [facility] Carotid Duplex Ultrasoundon 08-12-2024 Carotid Duplex Ultrasound [facility] [place] [address] Carotid Duplex Ultrasound 08/12/24 1314 MR#: [id number] Acct: [id number] Name: BHARTI AKBAR Rep #: [id number] : 1945 78 From: Gregory Benjamin MD Attending Dr: SARAH Valdivia Status: REG CLI Ordering Dr: Minoo Morillo Date: 08/12/24 Location: [facility] Sex: F C Admitted: Reason For Study: Carotid artery stenosis Rt. Velocities/BP Lt. Velocities/BP Prox CCA 63.6/13.5 cm/sec. Prox CCA 69.1/15.1 cm/sec. Mid CCA 59.8/14.5 cm/sec. Mid CCA 67.9/12.6 cm/sec. Dist CCA 98.1/17.9 cm/sec. Dist CCA 70.4/17.6 cm/sec. Prox ICA 177/24.1 cm/sec. Prox ICA 80.2/15.1 cm/sec. Mid ICA 140.7/21.5 cm/sec. Mid ICA 63.1/28.6 cm/sec. Dist ICA 97.5/20.6 cm/sec. Dist ICA 83.9/22.5 cm/sec. Rt. ICA/CCA = 2.96. Lt. ICA/CCA = 1.24. Prox ECA 141.2/11.5 cm/sec. Prox ECA 104.7/5.3 cm/sec. Rt. Vert. 74/11.4 cm/sec. Lt. Vert. 37.1/9.7 cm/sec. Right Extracranial There is heterogeneous, irregular atherosclerotic plaque noted in the right common carotid artery. There is heterogeneous, irregular atherosclerotic plaque noted in the right internal carotid artery. The atherosclerotic plaque causes acoustic shadowing. There is heterogeneous, irregular atherosclerotic plaque noted in the right external carotid artery. Antegrade flow is noted in the right vertebral artery. Left Extracranial There is heterogeneous, irregular atherosclerotic plaque noted in the left common carotid artery. There is heterogeneous, irregular atherosclerotic plaque noted in the left internal carotid artery. The atherosclerotic plaque causes acoustic shadowing. There is heterogeneous, irregular atherosclerotic plaque noted in the left external carotid artery. Antegrade flow is noted in the left vertebral artery. Procedure Carotid Duplex [id number]. This is a Carotid Duplex examination using B-mode, color flow and specral Doppler. Exam performed in department. VL/Carotid Duplex Ultrasound Interpretation Summary Moderate (50-69%) stenosis right extracranial internal carotid. Mild (<50%) stenosis left extracranial internal carotid. Patent and antegrade vertebrals bilaterally. Ordering Physician: Minoo Morillo Referring Physician: MD Armando Orozco Performed By: Portia Bejnamin RVT 08/14/24 1504 Date Gregory Benjamin MD CC: SARAH Valdivia; Dr. Armando Orozco MD Date Dictated: 08/12/24 1314 Date Transcribed: 08/14/241503 Transformation Specialist: Signed [facility] 06-10-2024 [facility] Office Visit ([facility] ) RAFFYBHARTI Beard ([id number]) 1945 F NFR Date Time Provider Department 06/10/24 7:20 PM ARMANDO OROZCO [facility] During your visit today, we recorded the following information about you: Pulse Respiration Blood pressure Weight 68/minute 18/minute 126/78 54.6 kg Height 1.588 m Armando Orozco MD 06/10/2024 8:03 PM Signed Bharti Akbar is a 78 year old female here for a Medicare wellness visit. HM - Anxiety screening completed. Has Adv Dir/Living Will. Declines wanting any further Covid vaccines. Declines Flu vaccine and RSV vaccine at this time. Medicare Health Risk Assessment General Health Fair Exercise: Minutes/Day 90 min Exercise: Days/Week 5 days Alcohol: Daily Use Patient declined Alcohol: Drinks/Day Patient declined Alcohol: 6 or more drinks Patient declined Feel off balance Yes Concerns: Teeth/Dentures Yes (worried about her gums being irritated. Teeth overall okay) Concerns: Sexual function No Troubled by feelings None of the above Frequency: Eating healthy diet Nearly every day ADLs requiring help None of the above ( does assist her with somethings, but is able to perform all tasks) Safety precautions in home/vehicle Yes Smoke, vape, chews tobacco No Difficulty hearing Yes, I wear a hearing aid Difficulty seeing Yes Current Providers Specialists: I have reviewed specialist-related care of the patient in the medical record. Current care team: Patient Care Team: Armando Orozco MD as PCP - General (Family Medicine) Dr. Vega Granger - Neurology Dr. Quispe - [facility]/Cardiology. Dr. Tyler Aldrich - ENT Urology - Dr. Alma Lakhani Second opinion from Neuro Dr. Verónica Wallace at [facility]. Follows with [facility]. Follows with Dentist in [place], unable to recall name. Follows with Fadia [place] in [place]. Medical/Family history review Reviewed and updated problem list, medical/surgical/family /social history, medications, and allergies. Opioid use review Opioid Medications (last 90 days) No data to display Anxiety/Depression screening Recommendation: no further intervention at this time, pt does have dx of anxiety/depression on hx list. Was referred to Psych from Neuro through recently. Cognitive screening Cognitive screening reviewed and no min-cog was triggered. Functional Observation Was the patient's Timed Up AND Go test unsteady or >= 12 seconds? No, does use a cane to ambulate Advance Care Planning Surrogate decision maker and/or advance care plan documented Measurements BP 126/78 (BP Site: Left Arm, BP Position: Sitting, BP Cuff Size: Regular Adult) Pulse 68 Resp 18 Ht 158.8 cm (5' 2.5) Wt 54.6 kg (120 lb 5.9 oz) BMI 21.67 kg/m? Vision Screening: Follows with optometry/ophthalmology ASSESSMENT/PLAN: 1. Encounter for Medicare annual wellness exam - ICD9: V70.0, ICD10: Z00.00 (primary diagnosis) - Counseled on healthy diet and regular exercise - personalized prevention plan provided - Follow up for annual exam in one year Armando Orozco MD Chief Complaint Follow up HPI Bharti Akbar is a 78 year old female who presents here today for a follow up Pt reports she just switched to this Insurance Company and wanted to schedule an appt due to feeling so poorly. Scheduled same day visit. Pt reports that she's been having a bad spell of what she believes is fibromyalgia for the past two weeks. She is having b/l hip, b/l shoulder, b/l hands and b/l leg pain. Pain is muscular pain but penetrates down to her bones. Pain is a burning type pain. It's causing her to have issues getting up out of the chair, she will occasionally slide out of her chair when trying to get up. Her pain is causing her to not be able to sleep and she can't sit for long periods of times due to her pain. Takes Trazodone 50 mg 2 tabs po once daily for sleep. Has seen Neurology who is unable to find anything wrong with her. She is hoping she can get something to help with her pain and sleep. Pain today rated an 8/10, reports it's constantly at this level. She is taking Tylenol which doesn't seem to help reduce any of her pain. Followed up with Neuro who referred her to Psychiatry to help deal with anxiety disorders. Pt noted this was through a PCP's office. Memory - Follows with Dr. Granger due to hx of dementia and CVA. Takes Aricept 10 mg 0.5 tab daily. Overall about the same. CVA - Hx of CVA. Does report falling frequently, uses a cane to ambulate. Right leg doesn't always cooperate and goes out, causing her to fall. Has previously done PT for this through . Trying to walk for exercise and wants to get into Silver Sneakers. Uro - Follows with Dr. Lakhani for her urinary incontinence. Has been on multiple medications. Her most recent medication Fesoterodine ER 4 mg, seemed t (more content not included)... [facility] BHART[facility] AK[facility] ([id number]) 1945 F NFR Date Time Provider Department 04/04/24 [facility] During your visit today, we recorded the following information about you: Kisha Martinez RN 04/04/2024 9:54 AM Signed Patient phoned to report the keycase assembler, Mallorie ([phone] ext: [phone]) never received the FMLA letter that was suppose to be sent to her on 03-20-24. Patient reports it was suppose to be e-faxed to Mallorie @ fax # [phone]. Patient asking Ayala Kapoor, to please send the FMLA letter (extending her leave past 03-25-24), and send patient a copy. Please phone patient with any questions and an update: [phone] Emelia Lynn APRN.CNP 04/04/2024 10:27 AM Signed Attempted to call Mallroie back with no answer, LM to call back. Would like more information for what is needed in the letter. Patient has used her full amount of FMLA. Emelia Lynn APRN.Emelia Montague APRN.CNP 04/08/2024 8:14 AM Signed Never heard back from Mallorie, letter was completed for patient and will be faxed. Requesting additional time off due to ongoing health concerns. Will have evaluation by neurology at in June. Emelia Lynn APRN.CNP Allergies As of Date: 04/04/2024 Noted Allergy Reaction CONTRAST DYE (IODINE) 09/08/2021 9 - Itching Comments: Pt felt like she was going to or have a seizure, per pt ALBUTEROL 11/23/2018 5 - Intolerance AMOXIL (AMOXICILLIN) 10/25/2012 14 - Other: See Comments Comments: Thick tongue CLINDAMYCIN 03/29/2023 7 - Swelling CODEINE 05/10/2005 11 - Vomiting DIATRIZOATE MEGLUMINE 08/30/2021 9 - Itching DYAZIDE (TRIAMTERENE-HYDROCHLOR OT*11/23/2012 5 - Intolerance Comments: incontinence urine ERYTHROMYCIN 05/10/2005 8 - GI Upset FLEXERIL (CYCLOBENZAPRINE) 05/10/2005 1 - Mental Status Change OXYCODONE 10/10/2016 11 - Vomiting OXYCONTIN (OXYCODONE HCL) 03/01/2012 8 - GI Upset 11 - Vomiting TESSALON PERLES (BENZONATATE) 05/10/2005 8 - GI Upset TETANUS VACCINES AND TOXOID 10/26/2005 VICODIN (HYDROCODONE-ACETAMINOP HE*11/23/2010 5 - Intolerance Comments: Twitching, shaky Date Reviewed: 03/20/2024 Reviewed by: Kim Sena LPN - Fully Assessed Reason for Visit: FMLA letter problem [Other] Prescriptions as of 04/08/2024 - donepezil (ARICEPT) 10 mg tablet Take 1 tablet by mouth daily at bedtime. - levothyroxine (LEVOXYL) 100 mcg tablet Take 1 tablet by mouth once daily. Take on empty stomach. For Thyroid. - lisinopril (ZESTRIL) 20 mg tablet Take 1 tablet by mouth once daily. - amLODIPine (NORVASC) 2.5 mg tablet DAILY - atorvastatin (LIPITOR) 40 mg tablet AT BEDTIME - carvedilol (COREG) 6.25 mg tablet - Cholecalciferol, Vitamin D3, 50 mcg (2,000 unit) cap DAILY - oxybutynin XL (DITROPAN XL) 5 mg 24 hr tablet Take 1 tablet by mouth once daily. - tamsulosin (FLOMAX) 0.4 mg Take 1 capsule by mouth daily at bedtime. - traZODone (DESYREL) 50 mg tablet Take 2 tablets by mouth daily at bedtime. - aspirin, enteric coated (ASPIRIN, ENTERIC COATED) 81 mg EC tablet Take 1 tablet by mouth once daily. - COMPOUNDED PRESCRIPTION Home blood pressure monitor. DX: Essential HTN I10 - CENTRUM SILVER ORAL TAB Take one(1) tablet daily. Meds Comments as of 03/07/2023: Started taking Osteo BiFlex OTC. 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 09/15/2016 Unspecified vitamin D deficiency [E55.9] 08/16/2006 DEPRESSIVE DISORDER NEC [F32.89] 01/23/2007 Attention deficit disorder without mention of h*05/25/2007 09/15/2016 Closed fracture of cervical spine (HCC) [S12.9X*11/03/2010 09/15/2016 Hypertension [I10] 03/23/2011 07/07/2015 Multinodular goiter [E04.2] 03/23/2011 09/15/2016 SOB (shortness of breath) [R06.02] 03/23/2011 12/25/2013 Osteopenia [M85.80] 01/25/2012 Postsurgical hypothyroidism [E89.0] 03/20/2012 Migraine variant [G43.809] 11/18/2012 Post-traumatic headache [G44.309] 10/02/2013 Osteoarthritis of carpometacarpal joints of bot*10/02/2013 De Quervain's tenosynovitis, right [M65.4] 03/26/2014 01/02/2017 Iron deficiency anemia due to chronic blood los*03/06/2015 09/15/2016 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.1] 07/07/2015 09/15/2016 Essential hypertension [I10] 07/07/2015 Primary osteoarthritis of first carpometacarpal* 017 HLD (hyperlipidemia) [E78.5] 09/23/2016 Coronary artery disease involving tejon webster*09/23/2016 Fibromyalgia [M79.7] 10/02/2019 Ischemic colitis (HCC) [K55.9] 03/07/2023 Segmental colitis associated with diverticulosi*11/20/2023 Angina pectoris (HCC) [I20.9] 03/07/2023 11/20/2023 Letter Text Encounter N (more content not included)... Normal [facility] CNPNon 03-22-2024 [facility] Telephone ([facility]) RAFFYBHARTI ([id number]) 1945 F NFR Date Time Provider Department 03/22/24 [facility] During your visit today, we recorded the following information about you: Emelia Lynn APRN.FREDY 03/22/2024 8:46 AM Signed Can you please call the patient and let her know that her urine culture was normal. No bacterial infection noted. I would recommend that she keep upcoming appointment with urology. Please let me know if she has any additional questions. Thank you. Emelia Lynn APRN.Tahira Lan MA 03/22/2024 9:00 AM Signed See both phone encounters. OUSMANE Gordillo Laurie Lynn, LPN 03/22/2024 10:06 AM Signed Spoke with pt and information listed below given. Pt verbalizes understanding. Kika Costa LPN Allergies As of Date: 03/22/2024 Noted Allergy Reaction CONTRAST DYE (IODINE) 09/08/2021 9 - Itching Comments: Pt felt like she was going to or have a seizure, per pt ALBUTEROL 11/23/2018 5 - Intolerance AMOXIL (AMOXICILLIN) 10/25/2012 14 - Other: See Comments Comments: Thick tongue CLINDAMYCIN 03/29/2023 7 - Swelling CODEINE 05/10/2005 11 - Vomiting DIATRIZOATE MEGLUMINE 08/30/2021 9 - Itching DYAZIDE (TRIAMTERENE-HYDROCHLOR OT*11/23/2012 5 - Intolerance Comments: incontinence urine ERYTHROMYCIN 05/10/2005 8 - GI Upset FLEXERIL (CYCLOBENZAPRINE) 05/10/2005 1 - Mental Status Change OXYCODONE 10/10/2016 11 - Vomiting OXYCONTIN (OXYCODONE HCL) 03/01/2012 8 - GI Upset 11 - Vomiting TESSALON PERLES (BENZONATATE) 05/10/2005 8 - GI Upset TETANUS VACCINES AND TOXOID 10/26/2005 VICODIN (HYDROCODONE-ACETAMINOP HE*11/23/2010 5 - Intolerance Comments: Janetingnayanaky Date Reviewed: 03/20/2024 Reviewed by: Kim Sena LPN - Fully Assessed Reason for Visit: Results [95] Cmt: Urine Culture Prescriptions as of 03/22/2024 - nitrofurantoin monohydrate and macrocrystal (MACROBID) 100 mg capsule Take 1 capsule by mouth two times a day with meals for 7 days. - donepezil (ARICEPT) 10 mg tablet Take 1 tablet by mouth daily at bedtime. - levothyroxine (LEVOXYL) 100 mcg tablet Take 1 tablet by mouth once daily. Take on empty stomach. For Thyroid. - lisinopril (ZESTRIL) 20 mg tablet Take 1 tablet by mouth once daily. - amLODIPine (NORVASC) 2.5 mg tablet DAILY - atorvastatin (LIPITOR) 40 mg tablet AT BEDTIME - carvedilol (COREG) 6.25 mg tablet - Cholecalciferol, Vitamin D3, 50 mcg (2,000 unit) cap DAILY - oxybutynin XL (DITROPAN XL) 5 mg 24 hr tablet Take 1 tablet by mouth once daily. - tamsulosin (FLOMAX) 0.4 mg Take 1 capsule by mouth daily at bedtime. - traZODone (DESYREL) 50 mg tablet Take 2 tablets by mouth daily at bedtime. - aspirin, enteric coated (ASPIRIN, ENTERIC COATED) 81 mg EC tablet Take 1 tablet by mouth once daily. - COMPOUNDED PRESCRIPTION Home blood pressure monitor. DX: Essential HTN I10 - CENTRUM SILVER ORAL TAB Take one(1) tablet daily. Meds Comments as of 03/07/2023: Started taking Osteo BiFlex OTC. 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 09/15/2016 Unspecified vitamin D deficiency [E55.9] 08/16/2006 DEPRESSIVE DISORDER NEC [F32.89] 01/23/2007 Attention deficit disorder without mention of h*05/25/2007 09/15/2016 Closed fracture of cervical spine (HCC) [S12.9X*11/03/2010 09/15/2016 Hypertension [I10] 03/23/2011 07/07/2015 Multinodular goiter [E04.2] 03/23/2011 09/15/2016 SOB (shortness of breath) [R06.02] 03/23/2011 12/25/2013 Osteopenia [M85.80] 01/25/2012 Postsurgical hypothyroidism [E89.0] 03/20/2012 Migraine variant [G43.809] 11/18/2012 Post-traumatic headache [G44.309] 10/02/2013 Osteoarthritis of carpometacarpal joints of bot*10/02/2013 De Quervain's tenosynovitis, right [M65.4] 03/26/2014 01/02/2017 Iron deficiency anemia due to chronic blood los*03/06/2015 09/15/2016 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.1] 07/07/2015 09/15/2016 Essential hypertension [I10] 07/07/2015 Primary osteoarthritis of first carpometacarpal* 017 HLD (hyperlipidemia) [E78.5] 09/23/2016 Coronary artery disease involving tejon webster*09/23/2016 Fibromyalgia [M79.7] 10/02/2019 Ischemic colitis (HCC) [K55.9] 03/07/2023 Segmental colitis associated with diverticulosi* 3 11/20/2023 Angina pectoris (HCC) [I20.9] 03/07/2023 11/20/2023 Encounter Status:Closed by KIKA COSTA on 03/22/24 Normal [facility] Jean Claude 03-21-2024 FREDYN Telephone (FAMPWS) RAFFYBHARTI ([id number]) 1945 F NFR Date Time Provider Department 03/21/24 EMELIA LYNN During your visit today, we recorded the following information about you: Emelia Lynn APRN.[employer] SAF[employer] EXPERT 03/21/2024 3:58 PM Signed Can you please call the patient and let her know that I reviewed her lab results. Lab work was all relatively normal. Urine culture is still pending at this time. I would still recommend that she keep her upcoming appointment with her urologist. I will be in contact her with her once I review urine culture results. Thank you. Emelia Lynn APRN.Tahira Lan MA 03/21/2024 4:41 PM Signed Message left for pt to call back for results. Tahira Tenorio MA, MA 03/22/2024 9:01 AM Signed See both phone encounters. Tahira Perla MA Allergies As of Date: 03/21/2024 Noted Allergy Reaction CONTRAST DYE (IODINE) 09/08/2021 9 - Itching Comments: Pt felt like she was going to or have a seizure, per pt ALBUTEROL 11/23/2018 5 - Intolerance AMOXIL (AMOXICILLIN) 10/25/2012 14 - Other: See Comments Comments: Thick tongue CLINDAMYCIN 03/29/2023 7 - Swelling CODEINE 05/10/2005 11 - Vomiting DIATRIZOATE MEGLUMINE 08/30/2021 9 - Itching DYAZIDE (TRIAMTERENE-HYDROCHLOR OT*11/23/2012 5 - Intolerance Comments: incontinence urine ERYTHROMYCIN 05/10/2005 8 - GI Upset FLEXERIL (CYCLOBENZAPRINE) 05/10/2005 1 - Mental Status Change OXYCODONE 10/10/2016 11 - Vomiting OXYCONTIN (OXYCODONE HCL) 03/01/2012 8 - GI Upset 11 - Vomiting TESSALON PERLES (BENZONATATE) 05/10/2005 8 - GI Upset TETANUS VACCINES AND TOXOID 10/26/2005 VICODIN (HYDROCODONE-ACETAMINOP HE*11/23/2010 5 - Intolerance Comments: Twitching, shaky Date Reviewed: 03/20/2024 Reviewed by: Kim Sena LPN - Fully Assessed Reason for Visit: Results [95] Cmt: Labs Prescriptions as of 03/22/2024 - nitrofurantoin monohydrate and macrocrystal (MACROBID) 100 mg capsule Take 1 capsule by mouth two times a day with meals for 7 days. - donepezil (ARICEPT) 10 mg tablet Take 1 tablet by mouth daily at bedtime. - levothyroxine (LEVOXYL) 100 mcg tablet Take 1 tablet by mouth once daily. Take on empty stomach. For Thyroid. - lisinopril (ZESTRIL) 20 mg tablet Take 1 tablet by mouth once daily. - amLODIPine (NORVASC) 2.5 mg tablet DAILY - atorvastatin (LIPITOR) 40 mg tablet AT BEDTIME - carvedilol (COREG) 6.25 mg tablet - Cholecalciferol, Vitamin D3, 50 mcg (2,000 unit) cap DAILY - oxybutynin XL (DITROPAN XL) 5 mg 24 hr tablet Take 1 tablet by mouth once daily. - tamsulosin (FLOMAX) 0.4 mg Take 1 capsule by mouth daily at bedtime. - traZODone (DESYREL) 50 mg tablet Take 2 tablets by mouth daily at bedtime. - aspirin, enteric coated (ASPIRIN, ENTERIC COATED) 81 mg EC tablet Take 1 tablet by mouth once daily. - COMPOUNDED PRESCRIPTION Home blood pressure monitor. DX: Essential HTN I10 - CENTRUM SILVER ORAL TAB Take one(1) tablet daily. Meds Comments as of 03/07/2023: Started taking Osteo BiFlex OTC. 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 09/15/2016 Unspecified vitamin D deficiency [E55.9] 08/16/2006 DEPRESSIVE DISORDER NEC [F32.89] 01/23/2007 Attention deficit disorder without mention of h*05/25/2007 09/15/2016 Closed fracture of cervical spine (HCC) [S12.9X*11/03/2010 09/15/2016 Hypertension [I10] 03/23/2011 07/07/2015 Multinodular goiter [E04.2] 03/23/2011 09/15/2016 SOB (shortness of breath) [R06.02] 03/23/2011 12/25/2013 Osteopenia [M85.80] 01/25/2012 Postsurgical hypothyroidism [E89.0] 03/20/2012 Migraine variant [G43.809] 11/18/2012 Post-traumatic headache [G44.309] 10/02/2013 Osteoarthritis of carpometacarpal joints of bot*10/02/2013 De Quervain's tenosynovitis, right [M65.4] 03/26/2014 01/02/2017 Iron deficiency anemia due to chronic blood los*03/06/2015 09/15/2016 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.1] 07/07/2015 09/15/2016 Essential hypertension [I10] 07/07/2015 Primary osteoarthritis of first carpometacarpal* 017 HLD (hyperlipidemia) [E78.5] 09/23/2016 Coronary artery disease involving tejon webster*09/23/2016 Fibromyalgia [M79.7] 10/02/2019 Ischemic colitis (HCC) [K55.9] 03/07/2023 Segmental colitis associated with diverticulosi* 3 11/20/2023 Angina pectoris (HCC) [I20.9] 03/07/2023 11/20/2023 Encounter Status:Closed by EMELIA LYNN on 03/22/24 Normal [facility] Bacteria Ur Culton 4 Bacteria identified Cx Nom (U) ORGANISM ID: 1 <10,000 CFU/ml Normal urogenital neo Normal [facility] Comment on above: Performed By: #### 3 016-3, 25424-0, 1988 #### [facility] CLIA [id number] [address] [place] [address] [place] CBC W Auto Differential pane l (Bld)on 03-20-2024 Basophils (Bld) [#/Vol] [facility] Basophils/100 WBC (Bld) 0.4 % [facility] Differential cell count method Nom (Bld) Auto [facility] Eosinophils (Bld) [#/Vol] 0.06 10*3/uL [facility] Eosinophils/100 WBC (Bld) 1.3 % [facility] Erythrocyte distribution width (RBC) [Ratio] 12.4 % 11.5 - 15.0 % [facility] Hematocrit (Bld) [Volume fraction] 41.9 % 36.0 - 46.0 % [facility] Hemoglobin (Bld) [Mass/Vol] 14.3 g/dL 11.5 - 15.5 g/dL [facility] Immature granulocytes (Bld) [#/Vol] [facility] Immature granulocytes/100 WBC (Bld) 0.2 % [facility] Interpretation and review of laboratory results Abnormal [facility] Lymphocytes (Bld) [#/Vol] 1.20 10*3/uL [facility] Lymphocytes/100 WBC (Bld) 25.8 % [facility] MCH (RBC) [Entitic mass] 30.4 pg 26.0 - 34.0 pg [facility] MCHC (RBC) [Mass/Vol] 34.1 g/dL 30.5 - 36.0 g/dL [facility] MCV (RBC) [Entitic vol] 89.1 fL 80.0 - 100.0 fL [facility] Monocytes (Bld) [#/Vol] 0.35 10*3/uL [facility] Monocytes/100 WBC (Bld) 7.5 % [facility] Neutrophils (Bld) [#/Vol] 3.01 10*3/uL [facility] Neutrophils/100 WBC (Bld) 64.8 % [facility] Nucleated RBC (Bld) [#/Vol] [facility] Nucleated RBC/100 WBC (Bld) [Ratio] 0.0 % /100 WBC [facility] Platelet mean volume (Bld) [Entitic vol] 8.6 fL Low 9.0 - 12.7 fL [facility] Platelets (Bld) [#/Vol] 275 10*3/uL [facility] RBC (Bld) [#/Vol] 4.70 10*6/uL 3.90 - 5.2 0 m/uL [facility] WBC (Bld) [#/Vol] 4.65 10*3/uL [facility] Basophils (Bld) [#/Vol] 10*3/uL Normal <0.11 [facility] Comment on above: Order Comment: Speci men Type: BLOOD SPECIMEN Ordering Facility: [facility] Address: [address] [place] [address] Performed By: #### 3 016-3, , 1988-01 #### [facility] CLIA [id number] [address] [place] Basophils/100 WBC (Bld) 0.4 % Normal [facility] Comment on above: Order Comment: Speci men Type: BLOOD SPECIMEN Ordering Facility: [facility] Address: [address] [place] [address] Performed By: #### 3 016-3, , 1988-01 #### [facility] CLIA [id number] [address] [place] Differential cell count method Nom (Bld) Auto Normal [facility] Comment on above: Order Comment: Speci men Type: BLOOD SPECIMEN Ordering Facility: [facility] Address: [address] [place] [address] Performed By: #### 3 016-3, , 1988-01 #### [facility] CLIA [id number] [address] [place] [address] [place] Eosinophils (Bld) [#/Vol] 0.06 10*3/uL Normal <0.46 [facility] Comment on above: Order Comment: Speci men Type: BLOOD SPECIMEN Ordering Facility: [facility] Address: [address] [place] [address] Performed By: #### 3 016-3, , 1988-01 #### [facility] CLIA [id number] [address] [place] Eosinophils/100 WBC (Bld) 1.3 % Normal [facility] Comment on above: Order Comment: Speci men Type: BLOOD SPECIMEN Ordering Facility: [facility] Address: [address] [place] [address] Performed By: #### 3 016-3, , 1988-01 #### [facility] CLIA [id number] [address] [place] Erythrocyte distribution width (RBC) [Ratio] 12.4 % Normal 11.5-15.0 [facility] Comment on above: Order Comment: Speci men Type: BLOOD SPECIMEN Ordering Facility: [facility] Address: [address] [place] [address] Performed By: #### 3 016-3, , 1988-01 #### [facility] CLIA [id number] [address] [place] Hematocrit (Bld) [Volume fraction] 41.9 % Normal 36.0-46.0 [facility] Comment on above: Order Comment: Speci men Type: BLOOD SPECIMEN Ordering Facility: [facility] Address: [address] [place] [address] Performed By: #### 3 3, , 1988-01 #### [facility] CLIA [id number] [address] [place] Hemoglobin (Bld) [Mass/Vol] 14.3 g/dL Normal 11.5-15.5 [facility] Comment on above: Order Comment: Speci men Type: BLOOD SPECIMEN Ordering Facility: [facility] Address: [address] [place] [address] Performed By: #### 3 016-3, , 1988-01 #### [facility] CLIA [id number] [address] [place] Immature granulocytes (Bld) [#/Vol] 10*3/uL Normal <0.10 [facility] Comment on above: Order Comment: Speci men Type: BLOOD SPECIMEN Ordering Facility: [facility] Address: [address] [place] [address] Performed By: #### 3 016-3, , 1988-01 #### [facility] CLIA [id number] [address] [place] Immature granulocytes/100 WBC (Bld) 0.2 % Normal [facility] Comment on above: Order Comment: Speci men Type: BLOOD SPECIMEN Ordering Facility: [facility] Address: [address] [place] [address] Performed By: #### 3 016-3, , 1988-01 #### [facility] CLIA [id number] [address] [place] [address] [place] Lymphocytes (Bld) [#/Vol] 1.20 10*3/uL Normal 1.00-4.00 [facility] Comment on above: Order Comment: Speci men Type: BLOOD SPECIMEN Ordering Facility: [facility] Address: [address] [place] [address] Performed By: #### 3 3, , 1988-01 #### [facility] CLIA [id number] [address] [place] Lymphocytes/100 WBC (Bld) 25.8 % Normal [facility] Comment on above: Order Comment: Speci men Type: BLOOD SPECIMEN Ordering Facility: [facility] Address: [address] [place] [address] Performed By: #### 3 016-3, , 1988-01 #### [facility] CLIA [id number] [address] [place] [address] [place] MCH (RBC) [Entitic mass] 30.4 pg Normal 26.0-34.0 [facility] Comment on above: Order Comment: Speci men Type: BLOOD SPECIMEN Ordering Facility: [facility] Address: [address] [place] [address] Performed By: #### 3 016-3, , 1988-01 #### [facility] CLIA [id number] [address] [place] MCHC (RBC) [Mass/Vol] 34.1 g/dL Normal 30.5-36.0 [facility] Comment on above: Order Comment: Speci men Type: BLOOD SPECIMEN Ordering Facility: [facility] Address: [address] [place] [address] Performed By: #### 3 016-3, , 1988-01 #### [facility] CLIA [id number] [address] [place] [address] [place] MCV (RBC) [Entitic vol] 89.1 fL Normal 80.0-100.0 [facility] Comment on above: Order Comment: Speci men Type: BLOOD SPECIMEN Ordering Facility: [facility] Address: [address] [place] [address] Performed By: #### 3 016-3, , 1988-01 #### [facility] CLIA [id number] [address] [place] Monocytes (Bld) [#/Vol] 0.35 10*3/uL Normal <0.87 [facility] Comment on above: Order Comment: Speci men Type: BLOOD SPECIMEN Ordering Facility: [facility] Address: [address] [place] [address] Performed By: #### 3 016-3, , 1988-01 #### [facility] CLIA [id number] [address] [place] Monocytes/100 WBC (Bld) 7.5 % Normal [facility] Comment on above: Order Comment: Speci men Type: BLOOD SPECIMEN Ordering Facility: [facility] Address: [address] [place] [address] Performed By: #### 3 016-3, , 1988-01 #### [facility] CLIA [id number] [address] [place] [address] [place] Neutrophils (Bld) [#/Vol] 3.01 10*3/uL Normal 1.45-7.50 [facility] Comment on above: Order Comment: Speci men Type: BLOOD SPECIMEN Ordering Facility: [facility] Address: [address] [place] [address] Performed By: #### 3 016-3, , 1988-01 #### [facility] CLIA [id number] [address] Neutrophils/100 WBC (Bld) 64.8 % Normal [facility] Comment on above: Order Comment: Speci men Type: BLOOD SPECIMEN Ordering Facility: [facility] Address: [address] [place] [address] Performed By: #### 3 016-3, , 1988-01 #### [facility] CLIA [id number] [address] [place] Nucleated RBC (Bld) [#/Vol] 10*3/uL Normal <0.01 [facility] Comment on above: Order Comment: Speci men Type: BLOOD SPECIMEN Ordering Facility: [facility] Address: [address] [place] [address] Performed By: #### 3 0163, , 1988-01 #### [facility] CLIA [id number] [address] [place] [facility] Nucleated RBC/100 WBC (Bld) [Ratio] 0.0 /100 WBC Normal [facility] Comment on above: Order Comment: Speci men Type: BLOOD SPECIMEN Ordering Facility: [facility] Address: [address] [place] [address] Performed By: #### 3 0163, , 1988-01 #### [facility] CLIA [id number] [address] [place] Platelet mean volume (Bld) [Entitic vol] 8.6 fL Low 9.0-12.7 [facility] Comment on above: Order Comment: Speci men Type: BLOOD SPECIMEN Ordering Facility: [facility] Address: [address] [place] [address] Performed By: #### 3 016-3, , 1988-01 #### [facility] CLIA [id number] [address] [place] Platelets (Bld) [#/Vol] 275 10*3/uL Normal 150-400 [facility] Comment on above: Order Comment: Speci men Type: BLOOD SPECIMEN Ordering Facility: [facility] Address: [address] [place] [address] Performed By: #### 3 016-3, , 1988-01 #### [facility] CLIA [id number] [address] [place] [address] [place] RBC (Bld) [#/Vol] 4.70 10*6/uL Normal 3.90-5.20 [facility] Comment on above: Order Comment: Speci men Type: BLOOD SPECIMEN Ordering Facility: [facility] Address: [address] [place] [address] Performed By: #### 3 016-3, , 1988-01 #### [facility] CLIA [id number] [address] OF [facility] WBC (Bld) [#/Vol] 4.65 10*3/uL Normal 3.70-11.00 [facility] Comment on above: Order Comment: Speci men Type: BLOOD SPECIMEN Ordering Facility: [facility] Address: [address] [place] [address] Performed By: #### 3 016-3, , 1988-01 #### [facility] CLIA [id number] [address] [place] CNOVon 03-20-2024 CNOV Office Visit (FAMPWS ) BHARTI AKBAR ([id number]) 1945 F NFR Date Time Provider Department 03/20/24 10:40 AM EMELIA LYNN FAMPWS During your visit today, we recorded the following information about you: Pulse Respiration Blood pressure Weight 78/minute 16/minute 150/82 53.1 kg Emelia Lynn APRN.FREDY 03/20/2024 12:19 PM Signed This is a 78 year old female who presents today with: Patient presents with: Acute Visit: having parkison symptoms HISTORY OF PRESENT ILLNESS: Bharti Akbar is a 78 year old female. Patient presents with: Acute Visit: having parkison symptoms Here in the office for ongoing pain and dysuria. Ongoing history urinary incontinence. Dysuria has seems to be progressing this past month. Has had bilateral flank pain, is a dull pain. No fever or chills. Follows with urology, Dr. Lakhani, has follow up soon. Neurology at , will be having consult in June, would like a 2nd opinion, concerns for Parkinson's Disease. Diagnosed with dementia, was Following with [facility] neurology, however trying to get a second opinion. Has concerns for Parkinson's disease. Ongoing issues with gait, completing PT. 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 History of cervical and lumbar arthritis.Refers that pain has been causing her difficulty sleeping. Has seen Dr. Herrera in the past, refers that she does not want to have to see another specialist at this time. 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 07/07/2015 HLD (hyperlipidemia) HTN (hypertension) Iron deficiency anemia due to chronic blood loss 03/06/2015 Kidney stone Lens replaced by other means - Right Eye 12/26/2014 Memory loss Osteoarthrosis, unspecified whether generalized or localized, other specified sites Other vitreous opacities - Both Eyes 07/07/2014 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 S/P laser cataract surgery - Right Eye 12/26/2014 S/P LASIK surgery of both eyes - Both Eyes 07/07/2014 Tear film insufficiency, unspecified 12/11/2014 Unspecified constipation PAST SURGICAL HISTORY Procedure Laterality Date APPENDECTOMY 1994 ARTHRP INTERPOS INTERCARPAL/METACARPAL JOINTS Right 10/07/2016 Right thumb CMC arthroplasty ; THYROIDECTOMY TOTAL OR COMPLETE 02/08/2012 COLONOSCOPY FLX DX W/COLLJ SPEC WHEN PFRMD 08/03/2005 Colonoscopy COLONOSCOPY GEN ANES 08/26/2020 Repeat in 5-10 years COLONOSCOPY W/BIOPSY SINGLE/MULTIPLE 06/19/2015 normal colon CORRJ HLX VLGS BNCTY SESMDC W/DOUBLE OSTEOTOMY 2004 RIGHT FOOT DILATION AND CURETTAGE DXAND/THER NONOBSTETRIC 1979 AFTER MISCARRAGE EGD 08/26/2020 EGD TRANSORAL BIOPSY SINGLE/MULTIPLE 06/19/2015 gastritis ESOPHAGOGASTRODUODENOSC OPY TRANSORAL DIAGNOSTIC 08/03/2005 EGD PAST SURGICAL HISTORY OF 1975 RECTAL WALL REPAIR PAST SURGICAL HISTORY OF 2002 Lasik Surgery on both eyes ([place]) PAST SURGICAL HISTORY OF 2010 broken neck PAST SURGICAL HISTORY OF 08/2015 Bare metal stent/ graft of heart x 1 PRQ CARDIAC STENT W/ANGIO 1 VSL 09/01/2015 Mid Lad TONSILLECTOMY PRIMARY/SECONDARY TOTAL ABDOMINAL HYSTERECT W/WO RMVL TUBE OVARY 1994 Hysterectomy, TAHBSO XCAPSL CTRC RMVL INSJ IO LENS PROSTH W/O ECP 12/25/2014 Cataract Extraction with Femtosecond Laser (LenSx)-right eye ALLERGIES Contrast Dye [Iodine], Albuterol, Amoxil [Amoxicillin], Clindamycin, Codeine, Diatrizoate Meglumine, Dyazide [Triamterene-Hydrochlor othiazid], Erythromycin, Flexeril [Cyclobenzaprine], Oxycodone, Oxycontin [Oxycodone Hcl], Tessalon Perles [Benzonatate], Tetanus Vaccines And Toxoid, and Vicodin [Hydrocodone-Acetaminop hen] MEDICATIONS Current Outpatient Medications Medication Sig donepezil (ARICEPT) 10 mg tablet Take 1 tablet by mouth daily at bedtime. levothyroxine (LEVOXYL) 100 mcg tablet Take 1 tablet by mouth once daily. Take on empty stomach. For Thyroid. lisinopril (ZESTRIL) 20 mg tablet Take 1 tablet by mouth once daily. amLODIPine (NORVASC) 2.5 mg tablet DAILY meloxicam (MOBIC) 15 mg tablet Take 1 tablet by mouth once daily. With food. atorvastatin (LIPITOR) 40 mg tablet AT BEDTIME carvedilol (COREG) 6.25 mg tablet Cholecalciferol, Vitamin D3, 50 mcg (2,000 unit) cap DAILY oxybutynin XL (DITROPAN XL) 5 mg 24 hr tablet Take 1 tablet by mo (more content not included)... Normal [facility] Comprehensive metabolic 2000 panelon 03-20-2024 Albumin [Mass/Vol] 4.2 g/dL Normal 3.9-4.9 [facility] Comment on above: Order Comment: Speci men Type: BLOOD SPECIMENOrdering Facility: [facility] Address: [address] [place] [address] Performed By: #### 3 024-7, 22781-6, 6-3 ####[facility] LABCLIA [id number] [place] [address] [place] ALP [Catalytic activity/Vol] 101 U/L Normal 34-123 [facility] Comment on above: Order Comment: Speci men Type: BLOOD SPECIMENOrdering Facility: [facility] Address: [address] [place] [address] Performed By: #### 3 024-7, 35586-6, 6-3 ####[facility] LABCLIA [id number] [place] [address] [place] ALT [Catalytic activity/Vol] 20 U/L Normal 7-38 [facility] Comment on above: Order Comment: Speci men Type: BLOOD SPECIMENOrdering Facility: [facility] Address: [address] [place] [address] Performed By: #### 3 024-7, 67025-4, 6-3 ####[facility] LABCLIA [id number] [place] [address] [place] Anion gap [Moles/Vol] 11 mmol/L Normal 8-15 [facility] Comment on above: Order Comment: Speci men Type: BLOOD SPECIMENOrdering Facility: [facility] Address: [address] [place] [address] Performed By: #### 3 024-7, 42241-3, 3015-3 ####[facility] LABCLIA [id number] [place] [address] [place] AST [Catalytic activity/Vol] 28 U/L Normal 13-35 [facility] Comment on above: Order Comment: Speci men Type: BLOOD SPECIMENOrdering Facility: [facility] Address: [address] [place] [address] Performed By: #### 3 024-7, 52263-5, 3015-3 ####[facility] LABCLIA [id number] [place] [address] [place] Bilirubin [Mass/Vol] 0.5 mg/dL Normal 0.2-1.3 [facility] Comment on above: Order Comment: Speci men Type: BLOOD SPECIMENOrdering Facility: [facility] Address: [address] [place] [address] Performed By: #### 3 024-7, 02872-0, 3015-3 ####[facility] LABCLIA [id number] [place] [address] [place] Calcium [Mass/Vol] 9.6 mg/dL Normal 8.5-10.2 [facility] Comment on above: Order Comment: Speci men Type: BLOOD SPECIMENOrdering Facility: [facility] Address: [address] [place] [address] Performed By: #### 3 024-7, 96531-7, 3015-3 ####[facility] LABCLIA [id number] [place] [id number] [place] Chloride [Moles/Vol] 103 mmol/L Normal 98-107 [facility] Comment on above: Order Comment: Speci men Type: BLOOD SPECIMENOrdering Facility: [facility] Address: [address] [place] [address] Performed By: #### 3 024-7, 04483-1, 3 ####[facility] LABCLIA [id number] [place] [address] [place] CO2 [Moles/Vol] 27 mmol/L Normal 22-30 [facility] Comment on above: Order Comment: Speci men Type: BLOOD SPECIMENOrdering Facility: [facility] Address: [address] [place] [address] Performed By: #### 3 024-7, 59367-5, 3015-11 ####[facility] LABCLIA [id number] [place] [address] [place] Creatinine [Mass/Vol] 0.88 mg/dL Normal 0.58-0.96 [facility] Comment on above: Order Comment: Speci men Type: BLOOD SPECIMENOrdering Facility: [facility] Address: [address] [place] [address] Performed By: #### 3 024-7, 84230-9, 3015-11 ####[facility] LABCLIA [id number] [place] [address] [place] Creatinine and Glomerular filtration rate.predicted panel (S/P/Bld) 67 mL/min/1.73m??? Normal >=60 [facility] Comment on above: Order Comment: Speci men Type: BLOOD SPECIMENOrdering Facility: [facility] Address: [address] [place] [address] Result Comment: Selina mated Glomerular Filtration Rate (eGFR) is calculated using the 2020 CKD-EPI creatinine equation. This equation utilizes serum creatinine, sex, and age as parameters. The creatinine assay has traceable calibration to isotope dilution-mass spectrometry. Refer to KDIGO guidelines for clinical interpretation. In patients with unstable renal function, e.g. those with acute kidney injury, the eGFR may not accurately reflect actual GFR. Performed By: #### 3 024-7, 01836-2, 3016-3 ####[facility] LABCLIA [id number] [place] [id number] [place] Glucose [Mass/Vol] 96 mg/dL Normal 74-99 [facility] Comment on above: Order Comment: Speci men Type: BLOOD SPECIMENOrdering Facility: [facility] Address: [address] [place] [address] Result Comment: The [place] Diabetes Association (ADA) provides guidance for cutoff values for fasting glucose and random glucose. The ADA defines fasting as no caloric intake for at least 8 hours. Fasting plasma glucose results between 100 to 125 mg/dL indicate increased risk for diabetes (prediabetes). Fasting plasma glucose results greater than or equal to 126 mg/dL meet the criteria for diagnosis of diabetes. In the absence of unequivocal hyperglycemia, results should be confirmed by repeat testing. In a patient with classic symptoms of hyperglycemia or hyperglycemic crisis, random plasma glucose results greater than or equal to 200 mg/dL meet the criteria for diagnosis of diabetes. Reference: Standards of Medical Care in Diabetes 2016, [place] Diabetes Association. Diabetes Care. 2016.39(Suppl 1). Performed By: #### 3 024-7, 59152-9, 6-3 ####[facility] LABIA [id number] [place] [address] [place] Potassium [Moles/Vol] 4.2 mmol/L Normal 3.7-5.1 [facility] Comment on above: Order Comment: Speci men Type: BLOOD SPECIMENOrdering Facility: [facility] Address: [address] [place] [address] Performed By: #### 3 024-7, 57672-0, 3016-3 ####[facility] LABIA [id number] [place] [address] [place] Protein [Mass/Vol] 7.0 g/dL Normal 6.3-8.0 [facility] Comment on above: Order Comment: Speci men Type: BLOOD SPECIMENOrdering Facility: [facility] Address: [address] [place], [place] [id number] Performed By: #### 3 024-7, 73827-3, 3016-3 ####[facility] LABIA [id number] [place] [address] [place] Sodium [Moles/Vol] 141 mmol/L Normal 136-144 [facility] Comment on above: Order Comment: Speci men Type: BLOOD SPECIMENOrdering Facility: [facility] Address: [address] [place] [address] Performed By: #### 3 024-7, 40318-7, 3016-3 ####[facility] LABIA [id number] [place] [address] [place] Urea nitrogen [Mass/Vol] 16 mg/dL Normal 7-21 [facility] Comment on above: Order Comment: Speci men Type: BLOOD SPECIMENOrdering Facility: [facility] Address: [address] [place] [address] Performed By: #### 3 024-7, 37532-6, 3016-3 ####[facility] LABIA [id number] [place] [address] [place] T4 Free SerPl-mCncon 024 Free T4 [Mass/Vol] 1.5 ng/dL Normal 0.9-1.7 [facility] Comment on above: Order Comment: Speci men Type: BLOOD SPECIMENOrdering Facility: [facility] Address: [address] [place] [address] Performed By: #### 3 024-7, 10576-0, 3016-3 ####[facility] LABIA [id number] [place] [address] [place] TSH SerPl-aCncon 03-20-2024 TSH Qn 3.160 m[IU]/L Normal 0.270-4.200 [facility] Comment on above: Order Comment: Speci men Type: BLOOD SPECIMENOrdering Facility: [facility] Address: [address] [place] [address] Performed By: #### 3 024-7, 19787-9, 3016-3 ####[facility] LABCLIA [id number] [place] [address] [place] UA DIP, URINE (POC)on 2023 BILIRUBIN UA (POCT) Negative Negative [facility] CLARITY UA (POCT) Clear [facility] COLOR UA (POCT) Yellow [facility] GLUCOSE UA (POCT) Negative Negative mg/dL [facility] Hemoglobin Ql (U) Small Abnormal Negative [facility] Interpretation and review of laboratory results Abnormal [facility] KETONE UA (POCT) Negative Negative mg/dL [facility] LEUKOCYTES UA (POCT) Negative Negative [facility] NITRITE UA (POCT) Negative Negative [facility] PH UA (POCT) 7.0 4.5 - 8.0 [facility] Protein Ql (U) Negative Negative mg/dL [facility] SPECIFIC GRAVITY UA (POCT) 1.025 1.005 - 1.030 [facility] UROBILINOGEN UA (POCT) 0.2 Radha l E.U./dL [facility] Location:[facility], [address] [place] [address], [place], [place], [id number] [place] [address] POINT OF CARE [facility] CNPNona 02-27-2024 FREDYN Telephone (MARIAH) BHARTI AKBAR ([id number]) 1945 F NFR Date Time Provider Department 02/27/24 EMELIA LYNN During your visit today, we recorded the following information about you: Kika Costa LPN 02/27/2024 3:20 PM Signed Pt called and wanted you to know she is working on finding a Neurologist for a 2nd opinion. She checked with [facility] and the doctor there is booking out to December 2024. She will get back to you with a name so we can send referral and supporting information. MARIXA Barber Ashley, APRN.FREDY 02/28/2024 4:29 PM Signed Noted Emelia Lynn APRN.FREDY Najera MARIXA Wyatt 03/05/2024 10:57 AM Signed Patient calling back has name of Neurologist she is scheduled to see in June. Dr Verónica Wallace [facility], information phone number is [phone] and comes to [facility] once monthly phone number for [facility] is [phone]. She did not have fax number to get referral sent to that Tahira Hanson MA 03/05/2024 11:34 AM Addendum Office note, med list, referral, demo, insurance cards faxed to [facility] office at [phone]. Called to get fax number. Cotton Picker Operator stated that Dr. Wallace only specializes in Parkinson's and movement disorders. Pt is scheduled in Jun. Tahira Perla MA Allergies As of Date: 02/27/2024 Noted Allergy Reaction CONTRAST DYE (IODINE) 09/08/2021 9 - Itching Comments: Pt felt like she was going to or have a seizure, per pt ALBUTEROL 11/23/2018 5 - Intolerance AMOXIL (AMOXICILLIN) 10/25/2012 14 - Other: See Comments Comments: Thick tongue CLINDAMYCIN 03/29/2023 7 - Swelling CODEINE 05/10/2005 11 - Vomiting DIATRIZOATE MEGLUMINE 08/30/2021 9 - Itching DYAZIDE (TRIAMTERENE-HYDROCHLOR OT*11/23/2012 5 - Intolerance Comments: incontinence urine ERYTHROMYCIN 05/10/2005 8 - GI Upset FLEXERIL (CYCLOBENZAPRINE) 05/10/2005 1 - Mental Status Change OXYCODONE 10/10/2016 11 - Vomiting OXYCONTIN (OXYCODONE HCL) 03/01/2012 8 - GI Upset 11 - Vomiting TESSALON PERLES (BENZONATATE) 05/10/2005 8 - GI Upset TETANUS VACCINES AND TOXOID 10/26/2005 VICODIN (HYDROCODONE-ACETAMINOP HE*11/23/2010 5 - Intolerance Comments: Twitching, shaky Date Reviewed: 02/14/2024 Reviewed by: Kim Sena LPN - Fully Assessed Reason for Visit: consult neurology [Other] Cmt: 2nd opinion Prescriptions as of 03/05/2024 - donepezil (ARICEPT) 10 mg tablet Take 1 tablet by mouth daily at bedtime. - levothyroxine (LEVOXYL) 100 mcg tablet Take 1 tablet by mouth once daily. Take on empty stomach. For Thyroid. - lisinopril (ZESTRIL) 20 mg tablet Take 1 tablet by mouth once daily. - amLODIPine (NORVASC) 2.5 mg tablet DAILY - meloxicam (MOBIC) 15 mg tablet Take 1 tablet by mouth once daily. With food. - atorvastatin (LIPITOR) 40 mg tablet AT BEDTIME - carvedilol (COREG) 6.25 mg tablet - Cholecalciferol, Vitamin D3, 50 mcg (2,000 unit) cap DAILY - oxybutynin XL (DITROPAN XL) 5 mg 24 hr tablet Take 1 tablet by mouth once daily. - tamsulosin (FLOMAX) 0.4 mg Take 1 capsule by mouth daily at bedtime. - traZODone (DESYREL) 50 mg tablet Take 2 tablets by mouth daily at bedtime. - aspirin, enteric coated (ASPIRIN, ENTERIC COATED) 81 mg EC tablet Take 1 tablet by mouth once daily. - COMPOUNDED PRESCRIPTION Home blood pressure monitor. DX: Essential HTN I10 - CENTRUM SILVER ORAL TAB Take one(1) tablet daily. Meds Comments as of 03/07/2023: Started taking Osteo BiFlex OTC. 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 09/15/2016 Unspecified vitamin D deficiency [E55.9] 08/16/2006 DEPRESSIVE DISORDER NEC [F32.89] 01/23/2007 Attention deficit disorder without mention of h*05/25/2007 09/15/2016 Closed fracture of cervical spine (HCC) [S12.9X*11/03/2010 09/15/2016 Hypertension [I10] 03/23/2011 07/07/2015 Multinodular goiter [E04.2] 03/23/2011 09/15/2016 SOB (shortness of breath) [R06.02] 03/23/2011 12/25/2013 Osteopenia [M85.80] 01/25/2012 Postsurgical hypothyroidism [E89.0] 03/20/2012 Migraine variant [G43.809] 11/18/2012 Post-traumatic headache [G44.309] 10/02/2013 Osteoarthritis of carpometacarpal joints of bot*10/02/2013 De Quervain's tenosynovitis, right [M65.4] 03/26/2014 01/02/2017 Iron deficiency anemia due to chronic blood los*03/06/2015 09/15/2016 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.1] 07/07/2015 09/15/2016 Essential hypertension [I10] 07/07/2015 Primary osteoarthritis of first carpometacarpal* 017 HLD (hyperlipidemia) [E78.5] 09/23/2016 Coronary artery disease involving tejon webster*09/23/2016 Fibromyalgia [M79.7] 10/02/2019 Ischemic col (more content not included)... Normal [facility] BHARTI AKBAR ([id number]) 1945 F NFR Date Time Provider Department 02/16/24 EMELIA LYNN [facility] During your visit today, we recorded the following information about you: Emelia Lynn APRN.PHARMACOVIGILANCE SAFETY EXPERT 02/16/2024 12:02 PM Signed Can you please call the patient and let her know that I reviewed her urine culture results. Urine culture came back negative for any infection. Can you please ask how her symptoms are doing? Thank you. FLOR Umaña Barbara, LPN 02/16/2024 1:29 PM Signed Patient notified of results, verbalizes understanding of instructions. Pt stated Sx have not changed. MARIXA Jarvis Ashley, APRN.CNP 02/19/2024 12:22 PM Signed Can you please call the patient back and see how she is doing? Have symptoms improved? I would like her to try to increase water intake during the day. If she is still having ongoing urinary symptoms I would be happy to send an antibiotic to cover for UTI. Thank you. FLOR Umaña Barbara, LPN 02/19/2024 12:34 PM Signed Patient notified of recommendations, verbalizes understanding of instructions. Pt. would like for providers to sent in a UTI antibiotic to [facility] HidalgoMARIXA Chi Ashley, APRN.CNP 02/19/2024 12:38 PM Signed The following approved medication requests have been transmitted electronically. Requested Prescriptions Signed Prescriptions Disp Refills nitrofurantoin monohydrate and macrocrystal (MACROBID) 100 mg capsule 14 capsule 0 Sig: Take 1 capsule by mouth two times a day with meals for 7 days. Authorizing Provider: EMELIA LYNN APRN.CNP Allergies As of Date: 02/16/2024 Noted Allergy Reaction CONTRAST DYE (IODINE) 09/08/2021 9 - Itching Comments: Pt felt like she was going to or have a seizure, per pt ALBUTEROL 11/23/2018 5 - Intolerance AMOXIL (AMOXICILLIN) 10/25/2012 14 - Other: See Comments Comments: Thick tongue CLINDAMYCIN 03/29/2023 7 - Swelling CODEINE 05/10/2005 11 - Vomiting DIATRIZOATE MEGLUMINE 08/30/2021 9 - Itching DYAZIDE (TRIAMTERENE-HYDROCHLOR OT*11/23/2012 5 - Intolerance Comments: incontinence urine ERYTHROMYCIN 05/10/2005 8 - GI Upset FLEXERIL (CYCLOBENZAPRINE) 05/10/2005 1 - Mental Status Change OXYCODONE 10/10/2016 11 - Vomiting OXYCONTIN (OXYCODONE HCL) 03/01/2012 8 - GI Upset 11 - Vomiting TESSALON PERLES (BENZONATATE) 05/10/2005 8 - GI Upset TETANUS VACCINES AND TOXOID 10/26/2005 VICODIN (HYDROCODONE-ACETAMINOP HE*11/23/2010 5 - Intolerance Comments: radha Hoskins Date Reviewed: 02/14/2024 Reviewed by: Kim Sena LPN - Fully Assessed Reason for Visit: Results [95] Cmt: Urine Culture Primary Visit Diagnosis:Acute cystitis without hematuria [N30.00] Order(s):nitrofurantoin monohydrate and macrocrystal (MACROBID) 100 mg capsuleTake 1 capsule by mouth two times a day with meals for 7 days.Disp: 14 capsuleRfl: 0 Prescriptions as of 02/19/2024 - nitrofurantoin monohydrate and macrocrystal (MACROBID) 100 mg capsule Take 1 capsule by mouth two times a day with meals for 7 days. - donepezil (ARICEPT) 10 mg tablet Take 1 tablet by mouth daily at bedtime. - levothyroxine (LEVOXYL) 100 mcg tablet Take 1 tablet by mouth once daily. Take on empty stomach. For Thyroid. - lisinopril (ZESTRIL) 20 mg tablet Take 1 tablet by mouth once daily. - amLODIPine (NORVASC) 2.5 mg tablet DAILY - meloxicam (MOBIC) 15 mg tablet Take 1 tablet by mouth once daily. With food. - atorvastatin (LIPITOR) 40 mg tablet AT BEDTIME - carvedilol (COREG) 6.25 mg tablet - Cholecalciferol, Vitamin D3, 50 mcg (2,000 unit) cap DAILY - oxybutynin XL (DITROPAN XL) 5 mg 24 hr tablet Take 1 tablet by mouth once daily. - tamsulosin (FLOMAX) 0.4 mg Take 1 capsule by mouth daily at bedtime. - traZODone (DESYREL) 50 mg tablet Take 2 tablets by mouth daily at bedtime. - aspirin, enteric coated (ASPIRIN, ENTERIC COATED) 81 mg EC tablet Take 1 tablet by mouth once daily. - COMPOUNDED PRESCRIPTION Home blood pressure monitor. DX: Essential HTN I10 - CENTRUM SILVER ORAL TAB Take one(1) tablet daily. Meds Comments as of 03/07/2023: Started taking Osteo BiFlex OTC. 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 Normal [facility] Bacteria Ur Culton Bacteria identified Cx Nom (U) ORGANISM ID: 1 10,000 -<50,000 CFU/ml Normal urogenital neo Normal [facility] Comment on above: Performed By: #### 6 30-4 ####[facility] LABCLIA [id number] [place] [id number] [place] CNOVon 02-14-2024 CNOV Office Visit (FAMPWS ) BHARTI AKBAR ([id number]) 1945 F NFR Date Time Provider Department 02/14/24 1:00 PM EMELIA LYNN [facility] During your visit today, we recorded the following information about you: Pulse Respiration Blood pressure Weight 79/minute 16/minute 138/80 52.2 kg Emelia Lnyn APRN.PHARMACOVIGILANCE SAFETY EXPERT 02/14/2024 2:54 PM Signed This is a 78 year old female who presents today with: Patient presents with: Follow Up: 1 month follow up and Urine SX HISTORY OF PRESENT ILLNESS: Bharti Akbar is a 78 year old female. Patient presents with: Follow Up: 1 month follow up and Urine SX 1 month follow up for medication. Started on Paxil 10 mg daily for anxiety and depression. Only took medication for 2 weeks. Increased sadness and suicidal thoughts. Refers that those thoughts have resolved. Feeling better. Currently on FMLA until March, does not think she will return back to work. Working on finding supplemental insurance. Denies any SI/HI. Has some urinary incontinence. Refers that she will have increase in urine leakage. Has noticed pink on her panty liners. Some abdominal pressure. History of kidney stones. Mild dysuria. No fever or chills. Elevated blood pressure at last office visit. Taking lisinopril 20 mg daily. Checking blood pressure at home, 140's/80. Denies chest pain, palpitations, dizziness, or edema. Follows with [facility]. Added on amlodipine 2.5 mg daily, carvedilol 6.25 mg twice daily? Just completed Holter monitor. Will be having follow-up with cardiology soon. Following with neurology due to memory loss/dementia. Currently on FMLA due to fall and balance concerns. Working FT at [employer]. Will be having endoscopy due dysphagia. Taking Aricept 10 mg daily. 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 07/07/2015 HLD (hyperlipidemia) HTN (hypertension) Iron deficiency anemia due to chronic blood loss 03/06/2015 Kidney stone Lens replaced by other means - Right Eye 12/26/2014 Memory loss Osteoarthrosis, unspecified whether generalized or localized, other specified sites Other vitreous opacities - Both Eyes 07/07/2014 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 S/P laser cataract surgery - Right Eye 12/26/2014 S/P LASIK surgery of both eyes - Both Eyes 07/07/2014 Tear film insufficiency, unspecified 12/11/2014 Unspecified constipation PAST SURGICAL HISTORY Procedure Laterality Date APPENDECTOMY 1994 ARTHRP INTERPOS INTERCARPAL/METACARPAL JOINTS Right 10/07/2016 Right thumb CMC arthroplasty ; THYROIDECTOMY TOTAL OR COMPLETE 02/08/2012 COLONOSCOPY FLX DX W/COLLJ SPEC WHEN PFRMD 08/03/2005 Colonoscopy COLONOSCOPY GEN ANES 08/26/2020 Repeat in 5-10 years COLONOSCOPY W/BIOPSY SINGLE/MULTIPLE 06/19/2015 normal colon CORRJ HLX VLGS BNCTY SESMDC W/DOUBLE OSTEOTOMY 2004 RIGHT FOOT DILATION AND CURETTAGE DXAND/THER NONOBSTETRIC 1979 AFTER MISCARRAGE EGD 08/26/2020 EGD TRANSORAL BIOPSY SINGLE/MULTIPLE 06/19/2015 gastritis ESOPHAGOGASTRODUODENOSC OPY TRANSORAL DIAGNOSTIC 08/03/2005 EGD PAST SURGICAL HISTORY OF 1975 RECTAL WALL REPAIR PAST SURGICAL HISTORY OF 2002 Lasik Surgery on both eyes ([place]) PAST SURGICAL HISTORY OF 2010 broken neck PAST SURGICAL HISTORY OF 08/2015 Bare metal stent/ graft of heart x 1 PRQ CARDIAC STENT W/ANGIO 1 VSL 09/01/2015 Mid Lad TONSILLECTOMY PRIMARY/SECONDARY TOTAL ABDOMINAL HYSTERECT W/WO RMVL TUBE OVARY 1994 Hysterectomy, TAHBSO XCAPSL CTRC RMVL INSJ IO LENS PROSTH W/O ECP 12/25/2014 Cataract Extraction with Femtosecond Laser (LenSx)-right eye ALLERGIES Contrast Dye [Iodine], Albuterol, Amoxil [Amoxicillin], Clindamycin, Codeine, Diatrizoate Meglumine, Dyazide [Triamterene-Hydrochlor othiazid], Erythromycin, Flexeril [Cyclobenzaprine], Oxycodone, Oxycontin [Oxycodone Hcl], Tessalon Perles [Benzonatate], Tetanus Vaccines And Toxoid, and Vicodin [Hydrocodone-Acetaminop hen] MEDICATIONS Current Outpatient Medications Medication Sig donepezil (ARICEPT) 10 mg tablet Take 1 tablet by mouth daily at bedtime. levothyroxine (LEVOXYL) 100 mcg tablet Take 1 tablet by mouth once daily. Take on empty stomach. For Thyroid. lisinopril (ZESTRIL) 20 mg tablet Take 1 tablet by mouth once daily. amLODIPine (NORVASC) 2.5 mg tablet DAILY meloxicam (MOBIC) 15 mg tablet Take 1 tablet by mouth (more content not included)... Normal [facility] UA DIP, URINE (POC)on 2023 BILIRUBIN UA (POCT) Negative Negative [facility] CLARITY UA (POCT) Clear [facility] COLOR UA (POCT) Yellow [facility] GLUCOSE UA (POCT) Negative Negative mg/dL [facility] Hemoglobin Ql (U) Small Abnormal Negative [facility] Interpretation and review of laboratory results Abnormal [facility] KETONE UA (POCT) Negative Negative mg/dL [facility] LEUKOCYTES UA (POCT) Negative Negative [facility] NITRITE UA (POCT) Negative Negative [facility] PH UA (POCT) 6.5 4.5 - 8.0 [facility] Protein Ql (U) Negative Negative mg/dL [facility] SPECIFIC GRAVITY UA (POCT) 1.020 1.005 - 1.030 [facility] UROBILINOGEN UA (POCT) 0.2 Radha l E.U./dL [facility] Location:[address], [place], [place], [id number] [place] [address] POINT OF CARE [facility] Urinalysis complete panel (U )on 02-14-2024 Bacteria LM.HPF (Urine sed) [#/Area] Negative Negative /HPF [facility] Bilirubin Ql (U) Negative Negative [facility] Clarity (Unsp spec) Clear Clear [facility] Color (U) Yellow Yellow [facility] Epithelial cells LM.HPF (Urine sed) [#/Area] None Seen /HPF [facility] Glucose Test strip (U) [Mass/Vol] Negative Negative [facility] Hemoglobin Ql (U) Negative Negative [facility] Hyaline casts (Urine sed) [#/Area] 1-3 /LPF Abnormal 0 /LPF [facility] Interpretation and review of laboratory results Abnormal [facility] Ketones Ql (U) Negative Negative [facility] Leukocyte esterase Test strip Ql (U) Negative Negative [facility] Nitrite Ql (U) Negative Negative [facility] pH (U) 6.5 [pH] NINF - 8.5 [facility] Protein (U) [Mass/Vol] Negative Negative [facility] RBC LM.HPF (Urine sed) [#/Area] 0-2 /HPF 0-2 /HPF [facility] Specific gravity (U) [Rel density] 1.015 1.005 - 1.030 [facility] Urobilinogen Ql (U) 0.2 EU/dL 0.2-1.0 EU/dL [facility] WBC LM.HPF (Urine sed) [#/Area] 0-5 /HPF 0-5 /HPF [facility] This test was [employer] ped and its performance characteristics determined by [facility]'s [facility] Pathology and Laboratory Medicine [place] ([facility] It has not been cleared or approved by the FDA. -[facility] is regulated under CLIA as qualified to perform high-complexity testing. This test is used for clinical purposes. It should not be regarded as investigational or for research. [facility] Bacteria LM.HPF (Urine sed) [#/Area] Negative Normal Negative [facility] Comment on above: Order Comment: Speci men Type: BLOOD SPECIMEN Ordering Facility: [facility] Address: [address] [place] [address] Performed By: #### 3 016-3, 1988-01 #### [facility] CLIA [id number] [address] STATES OF [facility] Bilirubin Ql (U) Negative Normal Negative [facility] Comment on above: Order Comment: Speci men Type: BLOOD SPECIMEN Ordering Facility: [facility] Address: [address] [place] [address] Performed By: #### 3 016-3, , 1988-01 #### [facility] CLIA [id number] [address] STATES OF [place] Clarity (Unsp spec) Clear Normal Clear [facility] Comment on above: Order Comment: Speci men Type: BLOOD SPECIMEN Ordering Facility: [facility] Address: [address] [place] [address] Performed By: #### 3 3, , 1988-01 #### [facility] CLIA [id number] [address] OF [facility] Color (U) Yellow Normal Yellow [facility] Comment on above: Order Comment: Speci men Type: BLOOD SPECIMEN Ordering Facility: [facility] Address: [address] [place] [address] Performed By: #### 3 0163, , 1988-01 #### [facility] CLIA [id number] [address] Epithelial cells LM.HPF (Urine sed) [#/Area] None Seen Normal [facility] Comment on above: Order Comment: Speci men Type: BLOOD SPECIMEN Ordering Facility: [facility] Address: [address] [place] [address] Performed By: #### 3 3, , 1988-01 #### [facility] CLIA [id number] [address] Glucose Test strip (U) [Mass/Vol] Negative Normal Negative [facility] Comment on above: Order Comment: Speci men Type: BLOOD SPECIMEN Ordering Facility: [facility] Address: [address] [place] [address] Performed By: #### 3 3, , 1988-01 #### [facility] CLIA [id number] [address] Hemoglobin Ql (U) Negative Normal Negative [facility] Comment on above: Order Comment: Speci men Type: BLOOD SPECIMEN Ordering Facility: [facility] Address: [address] [place] [address] Performed By: #### 3 0163, , 1988-01 #### [facility] CLIA [id number] [address] OF [place] Hyaline casts (Urine sed) [#/Area] 1-3 /LPF Abnormal 0 /LPF [facility] Comment on above: Order Comment: Speci men Type: BLOOD SPECIMEN Ordering Facility: [facility] Address: [address] [place] [address] Performed By: #### 3 3, , 1988-01 #### [facility] CLIA [id number] 1 [place] [address] [place] Ketones Ql (U) Negative Normal Negative [facility] Comment on above: Order Comment: Speci men Type: BLOOD SPECIMEN Ordering Facility: [facility] Address: [address] [place] [address] Performed By: #### 3 0163, , 1988-01 #### [facility] CLIA [id number] 1 [place] [address] [place] Leukocyte esterase Test strip Ql (U) Negative Normal Negative [facility] Comment on above: Order Comment: Speci men Type: BLOOD SPECIMEN Ordering Facility: [facility] Address: [address] [place] [address] Performed By: #### 3 3, , 1988-01 #### [facility] CLIA [id number] 1 [place] [address] [place] Nitrite Ql (U) Negative Normal Negative [facility] Comment on above: Order Comment: Speci men Type: BLOOD SPECIMEN Ordering Facility: [facility] Address: [address] [place] [address] Performed By: #### 3 0163, , 1988-01 #### [facility] CLIA [id number] 1 [place] [address] [place] pH (U) 6.5 [pH] Normal <8.5 [facility] Comment on above: Order Comment: Speci men Type: BLOOD SPECIMEN Ordering Facility: [facility] Address: [address] [place] [address] Performed By: #### 3 0163, , 1988-01 #### [facility] CLIA [id number] 1 [place] [address] [place] Protein (U) [Mass/Vol] Negative Normal Negative [facility] Comment on above: Order Comment: Speci men Type: BLOOD SPECIMEN Ordering Facility: [facility] Address: [address] [place] [address] Performed By: #### 3 016-3, , 1988-01 #### [facility] CLIA [id number] [address] RBC LM.HPF (Urine sed) [#/Area] 0-2 /HPF Normal 0-2 /HPF [facility] Comment on above: Order Comment: Speci men Type: BLOOD SPECIMEN Ordering Facility: [facility] Address: [address] [place] [address] Performed By: #### 3 016-3, , 1988-01 #### [facility] CLIA [id number] [address] Specific gravity (U) [Rel density] 1.015 Normal 1.005-1.030 [facility] Comment on above: Order Comment: Speci men Type: BLOOD SPECIMEN Ordering Facility: [facility] Address: [address] [place] [address] Performed By: #### 3 016-3, , 1988-01 #### [facility] CLIA [id number] [address] Urobilinogen Ql (U) 0.2 EU/dL Normal 0.2-1.0 EU/dL [facility] Comment on above: Order Comment: Speci men Type: BLOOD SPECIMEN Ordering Facility: [facility] Address: [address] [place] [address] Performed By: #### 3 016-3, , 1988-01 #### [facility] CLIA [id number] [address] WBC LM.HPF (Urine sed) [#/Area] 0-5 /HPF Normal 0-5 /HPF [facility] Comment on above: Order Comment: Speci men Type: BLOOD SPECIMEN Ordering Facility: [facility] Address: [address] [place] [address] Performed By: #### 3 016-3, 01507-8, 1987- #### [facility] [id number] 1 [place] [id number] [facility] Jean Claude 02-12-2024 CNPN Telephone (NEMJOSEFA) BHARTI AKBAR ([id number]) 1945 F NFR Date Time Provider Department 02/12/24 ELKIN VELEZ, VEGA STORM During your visit today, we recorded the following information about you: Sue Costa LPN 02/12/2024 2:48 PM Signed Faxed signed Rx Physical Therapy to [facility] 02/12/2024. Sue Costa LPN. Allergies As of Date: 02/12/2024 Noted Allergy Reaction CONTRAST DYE (IODINE) 09/08/2021 9 - Itching Comments: Pt felt like she was going to or have a seizure, per pt ALBUTEROL 11/23/2018 5 - Intolerance AMOXIL (AMOXICILLIN) 10/25/2012 14 - Other: See Comments Comments: Thick tongue CLINDAMYCIN 03/29/2023 7 - Swelling CODEINE 05/10/2005 11 - Vomiting DIATRIZOATE MEGLUMINE 08/30/2021 9 - Itching DYAZIDE (TRIAMTERENE-HYDROCHLOR OT*11/23/2012 5 - Intolerance Comments: incontinence urine ERYTHROMYCIN 05/10/2005 8 - GI Upset FLEXERIL (CYCLOBENZAPRINE) 05/10/2005 1 - Mental Status Change OXYCODONE 10/10/2016 11 - Vomiting OXYCONTIN (OXYCODONE HCL) 03/01/2012 8 - GI Upset 11 - Vomiting TESSALON PERLES (BENZONATATE) 05/10/2005 8 - GI Upset TETANUS VACCINES AND TOXOID 10/26/2005 VICODIN (HYDROCODONE-ACETAMINOP HE*11/23/2010 5 - Intolerance Comments: Twitching, shaky Date Reviewed: 01/12/2024 Reviewed by: Vega Granger Jr., MD - Fully Assessed Prescriptions as of 02/12/2024 - donepezil (ARICEPT) 10 mg tablet Take 1 tablet by mouth daily at bedtime. - levothyroxine (LEVOXYL) 100 mcg tablet Take 1 tablet by mouth once daily. Take on empty stomach. For Thyroid. - lisinopril (ZESTRIL) 20 mg tablet Take 1 tablet by mouth once daily. - amLODIPine (NORVASC) 2.5 mg tablet DAILY - meloxicam (MOBIC) 15 mg tablet Take 1 tablet by mouth once daily. With food. - atorvastatin (LIPITOR) 40 mg tablet AT BEDTIME - carvedilol (COREG) 6.25 mg tablet - Cholecalciferol, Vitamin D3, 50 mcg (2,000 unit) cap DAILY - oxybutynin XL (DITROPAN XL) 5 mg 24 hr tablet Take 1 tablet by mouth once daily. - tamsulosin (FLOMAX) 0.4 mg Take 1 capsule by mouth daily at bedtime. - traZODone (DESYREL) 50 mg tablet Take 2 tablets by mouth daily at bedtime. - aspirin, enteric coated (ASPIRIN, ENTERIC COATED) 81 mg EC tablet Take 1 tablet by mouth once daily. - COMPOUNDED PRESCRIPTION Home blood pressure monitor. DX: Essential HTN I10 - CENTRUM SILVER ORAL TAB Take one(1) tablet daily. Meds Comments as of 03/07/2023: Started taking Osteo BiFlex OTC. 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 09/15/2016 Unspecified vitamin D deficiency [E55.9] 08/16/2006 DEPRESSIVE DISORDER NEC [F32.89] 01/23/2007 Attention deficit disorder without mention of h*05/25/2007 09/15/2016 Closed fracture of cervical spine (HCC) [S12.9X*11/03/2010 09/15/2016 Hypertension [I10] 03/23/2011 07/07/2015 Multinodular goiter [E04.2] 03/23/2011 09/15/2016 SOB (shortness of breath) [R06.02] 03/23/2011 12/25/2013 Osteopenia [M85.80] 01/25/2012 Postsurgical hypothyroidism [E89.0] 03/20/2012 Migraine variant [G43.809] 11/18/2012 Post-traumatic headache [G44.309] 10/02/2013 Osteoarthritis of carpometacarpal joints of bot*10/02/2013 De Quervain's tenosynovitis, right [M65.4] 03/26/2014 01/02/2017 Iron deficiency anemia due to chronic blood los*03/06/2015 09/15/2016 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.1] 07/07/2015 09/15/2016 Essential hypertension [I10] 07/07/2015 Primary osteoarthritis of first carpometacarpal* 017 HLD (hyperlipidemia) [E78.5] 09/23/2016 Coronary artery disease involving tejon webster*09/23/2016 Fibromyalgia [M79.7] 10/02/2019 Ischemic colitis (HCC) [K55.9] 03/07/2023 Segmental colitis associated with diverticulosi*11/20/2023 Angina pectoris (HCC) [I20.9] 03/07/2023 11/20/2023 Encounter Status:Closed by SUE COSTA on 02/12/24 Normal [facility] Basophil percentageOrdered B y: Tahira Meadows on 01-06-2024 Basophil percentage 12.9 g/dL 12.0-15.0 [facility] Basophil percentage 101 mg/dL 74-106 [facility] Basophil percentage 142 mmol/L 136-145 [facility] Basophil percentage 3.6 mmol/L 3.5-5.1 [facility] Basophil percentage 111 mmol/L 98-107 [facility] Basophils (Bld) [#/Vol] 6.0 10*3/uL 4.4-11.0 [facility] Determination of erythrocyte mean corpuscular volume (MCV)Ordered By: Tahira Meadows on 01-06-2024 MCV (RBC) [Entitic vol] 85.8 fL 81-99 [facility] Erythrocyte distribution wid th ratioOrdered By: Tahira Meadows on 01-06-2024 Erythrocyte distribution width (RBC) [Ratio] 11.6 % 11.6-14.6 [facility] Erythrocyte distribution wid th standard deviationOrdered By: Tahira Meadows on 01-06-2024 Erythrocyte distribution width (RBC) [Entitic vol] 36.2 fL 35.1-43.9 [facility] Hematocrit Auto (Bld) [Volum e fraction]Ordered By: Tahira Meadows on 01-06-2024 Hematocrit (Bld) [Volume fraction] 37.6 % 37-47 [facility] No Panel InformationOrdered By: Tahira Meadows on 01-06-2024 29.5 pg 27.0-32.0 [facility] 34.3 g/dL 32-36 [facility] 263 K/mm3 150-450 [facility] 8.3 fl 6.2-12.0 [facility] 77 mL/min >60 [facility] 93 mL/min >60 [facility] 47.17 ml/min [facility] 7.8 RATIO 10-20 [facility] 28.0 mmol/L 21.0-32.0 [facility] RBC Auto (Bld) [#/Vol]Ordere d By: Tahira Meadows on 01-06-2024 RBC (Bld) [#/Vol] 4.38 10*6/uL 4.2-5.4 [facility] Serum or plasma calcium santiago urement (mass/volume)Ordered By: Tahira Meadows on 01-06-2024 Calcium [Mass/Vol] 8.4 mg/dL 8.5-10.1 [facility] Serum or plasma creatinine m easurement (mass/volume)Ordered By: Tahira Meadows on 01-06-2024 Creatinine [Mass/Vol] 0.77 mg/dL 0.55-1.02 [facility] Serum or plasma urea nitroge n measurement (mass/volume)Ordered By: Tahira Meadows on 01-06-2024 Urea nitrogen [Mass/Vol] 6 mg/dL 7-18 [facility] Thin prep Papanicolaou smear with manual screeningOrdered By: Tahira Meadows on 01-06-2024 Thin prep Papanicolaou smear with manual screening 3 5-15 [facility] Basophil percentageOrdered B y: Gentry Thomson on 01-05-2024 Basophil percentage 2.9 mg/dL 2.5-4.9 [facility] Basophil percentage 128 mg/dL <200 [facility] Basophil percentage 104 mg/dL <199 [facility] No Panel InformationOrdered By: Gentry Thomson on 01-05-2024 1.9 mg/dL 1.6-2.6 [facility] 51 mg/dL >40 [facility] 56 mg/dL 0-130 [facility] 21 mg/dL 5-40 [facility] Respiratory pathogens detect ion panel by molecular detection methodOrdered By: Tahira Meadows on 01-05-2024 Respiratory pathogens DNA and RNA panel LATOYA+probe (Resp) [facility] Serum or plasma thyroid stim ulating hormone (TSH) measurement (units/volume)Ordered By: Gentry Thomson on 01-05-2024 TSH Qn 2.96 uIU/mL 0.358-3.74 [facility] Whole blood hemoglobin A1c/t otal hemoglobin ratio (mass fraction)Ordered By: Gentry Thomson on 01-05-2024 HbA1c (Bld) [Mass fraction] 5.0 % 3.8-5.6 [facility] Absolute lymphocyte countOrd ered By: Izabella Mendoza on 01-04-2024 Lymphocytes Auto (Unsp spec) [#/Vol] 1.30 10*3/uL 0.83-4.51 [facility] Activated partial thrombopla stin time (aPTT) in platelet poor plasma by coagulation aOrdered By: Izabella Mendoza on 01-04-2024 aPTT Coag (PPP) [Time] 39.5 s 24.1-36.2 [facility] Automated lymphocyte count a s percentage of total leukocytesOrdered By: Izabella Mendoza on 01-04-2024 Lymphocytes/100 WBC Auto (Unsp spec) 25.3 % 19-41 [facility] Basophil percentageOrdered B y: Izabella Mendoza on 01-04-2024 Basophils (Bld) [#/Vol] 3.4 10*3/uL 2.0-7.7 [facility] Basophils/100 WBC (Bld) 0.2 % 0-1 [facility] Basophils/100 WBC (Bld) 67.1 % 47-70 [facility] Basophils/100 WBC (Bld) 6.4 % 0-10 [facility] Basophils/100 WBC (Bld) 0.6 % 0-5 [facility] Chloride [Moles/Vol] 106 mmol/L 98-107 [facility] Eosinophils/100 WBC (Bld) 0.6 % 0-5 [facility] Glucose [Mass/Vol] 101 mg/dL 74-106 [facility] Comment on above: Fasting Glucose resu lt from 100 to 125 mg/dL suggests IMPAIRED HOMEOSTASIS per A.D.A. criteria. Hemoglobin (Bld) [Mass/Vol] 12.5 g/dL 12.0-15.0 [facility] Monocytes/100 WBC (Bld) 6.4 % 0-10 [facility] Neutrophils (Bld) [#/Vol] 3.4 10*3/uL 2.0-7.7 [facility] Neutrophils/100 WBC (Bld) 67.1 % 47-70 [facility] Potassium [Moles/Vol] 3.6 mmol/L 3.5-5.1 [facility] Sodium [Moles/Vol] 138 mmol/L 136-145 [facility] WBC (Bld) [#/Vol] 5.1 10*3/uL 4.4-11.0 [facility] Determination of erythrocyte mean corpuscular volume (MCV)Ordered By: Izabella Mendoza on 01-04-2024 MCV (RBC) [Entitic vol] 86.3 fL 81-99 [facility] Erythrocyte distribution wid th ratioOrdered By: Izabella Mendoza on 01-04-2024 Erythrocyte distribution width (RBC) [Ratio] 11.5 % 11.6-14.6 [facility] Erythrocyte distribution wid th standard deviationOrdered By: Izabella Mendoza on 01-04-2024 Erythrocyte distribution width (RBC) [Entitic vol] 36.3 fL 35.1-43.9 [facility] Hematocrit Auto (Bld) [Volum e fraction]Ordered By: Izabella Mendoza on 01-04-2024 Hematocrit (Bld) [Volume fraction] 36.0 % 37-47 [facility] Immature granulocytes/100 WB C Auto (Bld)Ordered By: Izabella Mendoza on 01-04-2024 Immature granulocytes/100 WBC (Bld) 0.400 % 0.0-0.9 [facility] Comment on above: IG% - Immature Granu locytes (promyelocytes, myelocytes and metamyelocytes) > 1% indicates that a LEFT SHIFT is Present. Laboratory - Chemistry and C hemistry - challengeOrdered By: Izabella Mendoza on 01-04-2024 CO2 [Moles/Vol] 27.0 mmol/L 21.0-32.0 [facility] Urea nitrogen/Creatinine [Mass ratio] 15.4 mg/mg 10-20 [facility] Laboratory - CoagulationOrde red By: Izabella Mendoza on 01-04-2024 INR Coag (Bld) [Relative time] 1.1 {INR} [facility] PT Coag (PPP) [Time] 14.1 s 11.7-14.9 [facility] - Hematology and Cell countsOrdered By: Izabella Mendoza on 01-04-2024 MCH (RBC) [Entitic mass] 30.0 pg 27.0-32.0 [facility] MCHC (RBC) [Mass/Vol] 34.7 g/dL 32-36 [facility] Nucleated RBC/100 WBC (Bld) [Ratio] 0 % 0-5 [facility] Platelet mean volume (Bld) [Entitic vol] 8.3 fL 6.2-12.0 [facility] Platelets (Bld) [#/Vol] 215 10*3/uL 150-450 [facility] No Panel InformationOrdered By: Izabella Mendoza on 01-04-2024 Estimated Creatinine Clearance Calc 47.17 ml/min [facility] Estimated GFR (MDRD) Amer 102 mL/min >60 [facility] Comment on above: GFR Calc Estimated GFR (MDRD) Non-Af Amer 84 mL/min >60 [facility] Comment on above: Non- GFR Calc Troponin I High Sensitivity 9 pg/mL 3.0-54.0 [facility] Comment on above: Please Note: New Amrita t Units and Gender Specific Reference Ranges. For more information see Policy Stat Procedure [place] High Sensitivity Troponin (TNIH) and attachments. 0 % 0-5 [facility] 14.1 SECONDS 11.7-14.9 [facility] 1.1 [facility] 9 pg/mL 3.0-54.0 [facility] RBC Auto (Bld) [#/Vol]Ordere d By: Izabella Mendoza on 01-04-2024 RBC (Bld) [#/Vol] 4.17 10*6/uL 4.2-5.4 [facility] Serum or plasma calcium santiago urement (mass/volume)Ordered By: Izabella Mendoza on 01-04-2024 Calcium [Mass/Vol] 7.9 mg/dL 8.5-10.1 [facility] Serum or plasma creatinine m easurement (mass/volume)Ordered By: Izabella Mendoza on 01-04-2024 Creatinine [Mass/Vol] 0.71 mg/dL 0.55-1.02 [facility] Comment on above: The validity of the calculated GFR & GFRAA in patients over 70 years has not been determined. Clinical correlation is essential. Serum or plasma urea nitroge n measurement (mass/volume)Ordered By: Izabella Mendoza on 01-04-2024 Urea nitrogen [Mass/Vol] 11 mg/dL 7-18 [facility] Thin prep Papanicolaou smear with manual screeningOrdered By: Izabella Mendoza on 01-04-2024 Thin prep Papanicolaou smear with manual screening 5 5-15 [facility] Thin prep Papanicolaou smear with manual screening 102 mg/dL 74-106 [facility] Comment on above: MANAGEMENT OF PATIEN T CARE PER NURSING PROTOCOL C-REACTIVE PROTEINon 024 CRP [Mass/Vol] <0.9 mg/dL [facility] CBC W Auto Differential pane l (Bld)on 12-21-2023 Basophils (Bld) [#/Vol] 0.03 10*3/uL <0.11 k/uL [facility] Basophils/100 WBC (Bld) 0.5 % [facility] Differential cell count method Nom (Bld) Auto [facility] Eosinophils (Bld) [#/Vol] 0.09 10*3/uL <0.46 k/uL [facility] Eosinophils/100 WBC (Bld) 1.5 % [facility] Erythrocyte distribution width (RBC) [Ratio] 11.9 % 11.5 - 15.0 % [facility] Hematocrit (Bld) [Volume fraction] 43.7 % 36.0 - 46.0 % [facility] Hemoglobin (Bld) [Mass/Vol] 14.8 g/dL 11.5 - 15.5 g/dL [facility] Immature granulocytes (Bld) [#/Vol] <0.10 k/uL [facility] Immature granulocytes/100 WBC (Bld) 0.2 % [facility] Lymphocytes (Bld) [#/Vol] 1.16 10*3/uL 1.00 - 4.00 k/uL [facility] Lymphocytes/100 WBC (Bld) 19.4 % [facility] MCH (RBC) [Entitic mass] 30.4 pg 26.0 - 34.0 pg [facility] MCHC (RBC) [Mass/Vol] 33.9 g/dL 30.5 - 36.0 g/dL [facility] MCV (RBC) [Entitic vol] 89.7 fL 80.0 - 100.0 fL [facility] Monocytes (Bld) [#/Vol] 0.55 10*3/uL <0.87 k/uL [facility] Monocytes/100 WBC (Bld) 9.2 % [facility] Neutrophils (Bld) [#/Vol] 4.14 10*3/uL 1.45 - 7.50 k/uL [facility] Neutrophils/100 WBC (Bld) 69.2 % [facility] Nucleated RBC (Bld) [#/Vol] <0.01 k/uL [facility] Nucleated RBC/100 WBC (Bld) [Ratio] 0.0 /100 WBC [facility] Platelet mean volume (Bld) [Entitic vol] 9.0 fL 9.0 - 12.7 fL [facility] Platelets (Bld) [#/Vol] 279 10*3/uL 150 - 400 k/uL [facility] RBC (Bld) [#/Vol] 4.87 10*6/uL 3.90 - 5.2 0 m/uL [facility] WBC (Bld) [#/Vol] 5.98 10*3/uL 3.70 - 11. 00 k/uL [facility] Comprehensive metabolic 2000 panelon 12-21-2023 Albumin [Mass/Vol] 4.1 g/dL 3.9 - 4.9 g/dL [facility] ALP [Catalytic activity/Vol] 91 U/L 34 - 123 U/L [facility] ALT [Catalytic activity/Vol] 17 U/L 7 - 38 U/L [facility] Anion gap [Moles/Vol] 13 mmol/L 9 - 18 mmol/L [facility] AST [Catalytic activity/Vol] 29 U/L 13 - 35 U/L [facility] Bilirubin [Mass/Vol] 0.4 mg/dL 0.2 - 1 .3 mg/dL [facility] Calcium [Mass/Vol] 9.7 mg/dL 8.5 - 10. 2 mg/dL [facility] Chloride [Moles/Vol] 103 mmol/L 97 - 10 5 mmol/L [facility] CO2 [Moles/Vol] 27 mmol/L 22 - 30 mmol/L [facility] Creatinine [Mass/Vol] 0.91 mg/dL 0.58 - 0.96 mg/dL [facility] Estimated Glomerular Filtration Rate 64 mL/min/1.73m >=60 mL/min/1.73m [facility] Glucose [Mass/Vol] 62 mg/dL Low 74 - 99 mg/dL [facility] Potassium [Moles/Vol] 3.9 mmol/L 3.7 - 5.1 mmol/L [facility] Protein [Mass/Vol] 6.6 g/dL 6.3 - 8.0 g/dL [facility] Sodium [Moles/Vol] 143 mmol/L 136 - 144 mmol/L [facility] Urea nitrogen [Mass/Vol] 17 mg/dL 7 - 21 mg/dL [facility] ESR Westergren method (Bld) [Velocity]on 12-21-2023 ESR (Bld) [Velocity] 5 mm/h 0 - 20 mm/hr Cl [facility] RHEUMATOID FACTORon 12-21-19 24 Rheumatoid factor Qn <16 IU/mL [facility] Albumin Elph [Mass/Vol]Order ed By: Jose Ortega on 12-20-2023 Albumin [Mass/Vol] 3.8 g/dL 2.9-4.4 [facility] Erythrocyte sedimentation ra teOrdered By: Jose Barrera on 12-20-2023 ESR (Bld) [Velocity] 1 mm/h 0-30 [facility] Interpretation of serum or p lasma protein pattern by immunofixation (narrative resultOrdered By: Jose Ortega on 12-20-2023 Protein Fractions Immunofixation Chavo [Interp] Not Observed g/dL Not Observed [facility] No Panel InformationOrdered By: Jose Ortega on 12-20-2023 Addendum Document Comment . [facility] Comment on above: Protein electrophore sis scan will follow via computer,mail, or literature professor delivery. Centromere B Antibody <0.2 AI 0.0-0.9 [facility] Free Lambda Light Chains, Quant 11.9 mg/L 5.7-26.3 [facility] Immunoglobulin E 11 IU/mL 6495 [facility] Immunoglobulin M 56 mg/dL 26217 [facility] ANISA-1 Antibody <0.2 AI 0.0-0.9 [facility] .NET ARCHITECT Antibody <0.2 AI 0.0-0.9 [facility] SM Antibody <0.2 AI 0.0-0.9 [facility] SS-A/Ro IgG Antibody < 0.2 AI 0.0-0.9 [facility] SS-B/La IgG Antibody < 0.2 AI 0.0-0.9 [facility] < 0.2 AI 0.0-0.9 [facility] 11.9 mg/L 5.7-26.3 [facility] 56 mg/dL -217 [facility] 11 IU/mL 6-495 [facility] No Panel InformationOrdered By: Jose Barrera on 12-20-2023 C-Reactive Protein Extended Range < 2.90 mg/L 0.0-3.0 [facility] Comment on above: C-Reactive Protein ( CRP) provides useful information for thediagnosis, therapy and monitoring of inflammatory processesand associated diseases. For the evaluation of Relative Riskfor Cardiovascular Disease, a High Sensitivity CRP (HSCRP)should be ordered. < 2.90 mg/L 0.0-3.0 [facility] Serum DNA double strand anti body assay (units/volume)Ordered By: Jose Ortega on 12-20-2023 DNA double strand Ab Qn (S) 2 [IU]/mL 0-9 [facility] Comment on above: Negative <5 Equivoca l 5 - 9 Positive >9 Serum Scl-70 antibody assay (units/volume)Ordered By: Jose Ortega on 12-20-2023 SCL-70 extractable nuclear Ab Qn (S) <0.2 AI 0.0-0.9 [facility] Serum [id number]-[id number] measu rement by electrophoresisOrdered By: Jose Ortega on 12-20-2023 Alpha 1 globulin Elph [Mass/Vol] 0.2 g/dL 0.0-0.4 [facility] Alpha 1 globulin Elph [Mass/Vol] 0.7 g/dL 0.4-1.0 [facility] Serum globulin measurement ( mass/volume)Ordered By: Jose Ortega on 12-20-2023 Globulin (S) [Mass/Vol] 2.6 g/dL 2.2-3.9 [facility] Serum immunoglobulin kappa l ight chains/immunoglobulin lambda light chains mass ratioOrdered By: Jose Ortega on 12-20-2023 Immunoglobulin light chains.kappa/Immunoglo bulin light chains.lambda (S) [Mass ratio] 1.41 0.26-1.65 [facility] Comment on above: Performed at: [address] [id number] Director: Aleksandar Alvarado PhD, Phone: [phone] at: - [facility] [id number] Director: Aleksandar Mahoney MD, Phone: [phone] Serum or plasma IgA measurem ent (mass/volume)Ordered By: Jose Ortega on 12-20-2023 IgA [Mass/Vol] 203 mg/dL 64-422 [facility] Serum or plasma IgG measurem ent (mass/volume)Ordered By: Jose Ortega on 12-20-2023 IgG [Mass/Vol] 850 mg/dL 586-1602 [facility] Serum or plasma beta globuli n measurement by electrophoresis (mass/volume)Ordered By: Jose Ortega on 12-20-2023 Beta globulin Elph [Mass/Vol] 0.9 g/dL 0.7-1.3 [facility] Serum or plasma gamma globul in measurement by electrophoresis (mass/volume)Ordered By: Jose Ortega on 12-20-2023 Gamma globulin Elph [Mass/Vol] 0.8 g/dL 0.4-1.8 [facility] Serum or plasma immunoelectr ophoresis interpretation (nominal result)Ordered By: Jose Ortega on 12-20-2023 Interpretation IEP [Interp] Comment . [facility] Comment on above: No monoclonality det ected. Serum or plasma immunoglobul in kappa light chains measurement (mass/volume)Ordered By: Jose Ortega on 12-20-2023 Immunoglobulin light chains.kappa [Mass/Vol] 16.8 mg/L 3.3-19.4 [facility] Serum or plasma thyroid stim ulating hormone (TSH) measurement (units/volume)Ordered By: Jose Ortega on 12-20-2023 TSH Qn 1.42 uIU/mL 0.358-3.74 [facility] Thin prep Papanicolaou smear with manual screeningOrdered By: Jose Ortega on 12-20-2023 Thin prep Papanicolaou smear with manual screening 1.5 0.7-1.7 [facility] Total protein bloodOrdered B y: Jose Ortega on 12-20-2023 Protein [Mass/Vol] 6.4 g/dL 6.0-8.5 [facility] Basophil percentageOrdered B y: Jose Ortega on 11-15-2023 Basophil percentage 103 mg/dL 74-106 [facility] Basophil percentage 142 mmol/L 136-145 [facility] Basophil percentage 4.2 mmol/L 3.5-5.1 [facility] Basophil percentage 110 mmol/L 98-107 [facility] Chloride [Moles/Vol] 110 mmol/L 98-107 [facility] Glucose [Mass/Vol] 103 mg/dL 74-106 [facility] Comment on above: Fasting Glucose resu lt from 100 to 125 mg/dL suggests IMPAIRED HOMEOSTASIS per A.D.A. criteria. Potassium [Moles/Vol] 4.2 mmol/L 3.5-5.1 [facility] Sodium [Moles/Vol] 142 mmol/L 136-145 [facility] Laboratory - Chemistry and C hemistry - challengeOrdered By: Jose Ortega on 11-15-2023 CO2 [Moles/Vol] 28.0 mmol/L 21.0-32.0 [facility] Urea nitrogen/Creatinine [Mass ratio] 17.2 mg/mg 10-20 [facility] No Panel InformationOrdered By: Jose Ortega on 11-15-2023 Ceruloplasmin 20.5 mg/dL 19.0-39.0 [facility] Comment on above: Performed at: [facility] [address] [id number] Director: Aleksandar Alvarado PhD, Phone: [phone] Endomysial IgA Antibody Negative Negative [facility] Estimated Creatinine Clearance Calc 43.37 ml/min [facility] Estimated GFR (MDRD) Amer 81 mL/min >60 [facility] Comment on above: GFR Calc Estimated GFR (MDRD) Non-Af Amer 67 mL/min >60 [facility] Comment on above: Non- GFR Calc Free Lambda Light Chains, Quant 11.9 mg/L 5.7-26.3 [facility] Thyroglobulin Antibody < 1.0 IU/mL 0.0-0.9 [facility] Comment on above: Thyroglobulin Antibo dy measured by The [employer] TechnologyMethodologyIt should be noted that the presence of thyroglobulinantibodies may not be pathogenic nor diagnostic, especiallyat very low levels. The assay appointment clerk has found thatfour percent of individuals without evidence of thyroiddisease or autoimmunity will have positive TgAb levels upto 4 IU/mL. Thyroglobulin Level 0.1 ng/mL 1.5-38.5 [facility] Comment on above: According to the [facility] [place] [employer],the reference interval for Thyroglobulin (TG) should berelated to euthyroid patients and not for patients whounderwent thyroidectomy. TG reference intervals for thesepatients depend on the residual mass of the thyroid tissueleft after surgery. Establishing a post-operative baselineis recommended. The assay limit of quantitation is 0.1ng/mLThyroglobulin measured by [employer]Ass[employer] 67 mL/min >60 [facility] 81 mL/min >60 [facility] 43.37 ml/min [facility] 17.2 RATIO 10-20 [facility] 28.0 mmol/L 21.0-32.0 [facility] 11.9 mg/L 5.7-26.3 [facility] < 1.0 IU/mL 0.0-0.9 [facility] 20.5 mg/dL 19.0-39.0 [facility] 0.1 ng/mL 1.5-38.5 [facility] Negative Negative [facility] Serum immunoglobulin kappa l ight chains/immunoglobulin lambda light chains mass ratioOrdered By: Jose Ortega on 11-15-2023 Immunoglobulin light chains.kappa/Immunoglo bulin light chains.lambda (S) [Mass ratio] 1.66 0.26-1.65 [facility] Serum or plasma IgA measurem ent (mass/volume)Ordered By: Jose Ortega on 11-15-2023 IgA [Mass/Vol] 197 mg/dL 64-422 [facility] Serum or plasma calcium santiago urement (mass/volume)Ordered By: Jose Ortega on 11-15-2023 Calcium [Mass/Vol] 8.5 mg/dL 8.5-10.1 [facility] Serum or plasma creatinine m easurement (mass/volume)Ordered By: Jose Ortega on 11-15-2023 Creatinine [Mass/Vol] 0.87 mg/dL 0.55-1.02 [facility] Comment on above: The validity of the calculated GFR & GFRAA in patients over 70 years has not been determined. Clinical correlation is essential. Serum or plasma immunoglobul in kappa light chains measurement (mass/volume)Ordered By: Jose Ortega on 11-15-2023 Immunoglobulin light chains.kappa [Mass/Vol] 19.8 mg/L 3.3-19.4 [facility] Serum or plasma thiamine lucas surement (mass/volume)Ordered By: Jose Ortega on 11-15-2023 Thiamine [Mass/Vol] 273.6 nmol/L 66.5-200.0 [facility] Serum or plasma thyroid stim ulating hormone (TSH) measurement (units/volume)Ordered By: Jose Ortega on 11-15-2023 TSH Qn 2.72 uIU/mL 0.358-3.74 [facility] Serum or plasma thyroperoxid ase antibody assay (units/volume)Ordered By: Jose Ortega on 11-15-2023 TPO Ab Qn [IU]/mL 0-34 [facility] Comment on above: Performed at: [address] [id number] Director: Aleksandar Alvarado PhD, Phone: [phone] Serum or plasma urea nitroge n measurement (mass/volume)Ordered By: Jose Ortega on 11-15-2023 Urea nitrogen [Mass/Vol] 15 mg/dL 7-18 [facility] Serum tissue transglutaminas e IgA antibody assay (units/volume)Ordered By: Jose Ortega on 11-15-2023 tTG IgA Qn (S) <2 U/mL 0-3 [facility] Comment on above: Negative 0 - 3 Weak Positive 4 - 10 Positive >10 Tissue Transglutaminase (tTG) has been identified as the endomysial antigen. Studies have demonstr- ated that endomysial IgA antibodies have over 99% specificity for gluten sensitive enteropathy. Thin prep Papanicolaou smear with manual screeningOrdered By: Jose Ortega on 11-15-2023 Thin prep Papanicolaou smear with manual screening 4 5-15 [facility] Thin prep Papanicolaou smear with manual screening 1.27 ng/dL 0.76-1.46 [facility] Thin prep Papanicolaou smear with manual screening 79 ug/dL 80-158 [facility] Comment on above: Detection Limit = 5P erformed at: - [facility] [id number] Director: Aleksandar Mahoney MD, Phone: [phone] Whole blood hemoglobin A1c/t otal hemoglobin ratio (mass fraction)Ordered By: Jose Ortega on 11-15-2023 HbA1c (Bld) [Mass fraction] 5.0 % 3.8-5.6 [facility] Comment on above: Normal < 5.7 % Predi abetic 5.7 - 6.4 % Diabetic >or= 6.5 % Please note range changes. Absolute lymphocyte countOrd ered By: Tahira Meadows on 11-14-2023 Lymphocytes Auto (Unsp spec) [#/Vol] 1.00 10*3/uL 0.83-4.51 [facility] Albumin Elph [Mass/Vol]Order ed By: Jose Ortega on 11-14-2023 Albumin [Mass/Vol] 3.7 g/dL 2.9-4.4 [facility] Automated lymphocyte count a s percentage of total leukocytesOrdered By: Tahira Meadows on 11-14-2023 Lymphocytes/100 WBC Auto (Unsp spec) 24.6 % 19-41 [facility] Basophil percentageOrdered B y: Tahira Meadows on 11-14-2023 Basophil percentage 4.1 mg/dL 2.5-4.9 [facility] Basophil percentage 13.1 g/dL 12.0-15.0 [facility] Basophil percentage 6.2 g/dL 6.4-8.2 [facility] Basophil percentage 0.50 mg/dL 0.20-1.00 [facility] Basophil percentage 136 mg/dL <200 [facility] Basophil percentage 68 mg/dL <199 [facility] Basophils (Bld) [#/Vol] 4.1 10*3/uL 4.4-11.0 [facility] Basophils (Bld) [#/Vol] 2.5 10*3/uL 2.0-7.7 [facility] Basophils/100 WBC (Bld) 0.5 % 0-1 [facility] Basophils/100 WBC (Bld) 60.9 % 47-70 [facility] Basophils/100 WBC (Bld) 10.8 % 0-10 [facility] Basophils/100 WBC (Bld) 3.0 % 0-5 [facility] Bilirubin [Mass/Vol] 0.50 mg/dL 0.20-1.00 [facility] Comment on above: For patients on eltr ombopag therapy, use of Dimension [place] TBIL is not recommended. Cholesterol [Mass/Vol] 136 mg/dL <200 [facility] Comment on above: <200 mg/dL Desirable 200-240 mg/dL Borderline >240 mg/dL High Risk Eosinophils/100 WBC (Bld) 3.0 % 0-5 [facility] Hemoglobin (Bld) [Mass/Vol] 13.1 g/dL 12.0-15.0 [facility] Monocytes/100 WBC (Bld) 10.8 % 0-10 [facility] Neutrophils (Bld) [#/Vol] 2.5 10*3/uL 2.0-7.7 [facility] Neutrophils/100 WBC (Bld) 60.9 % 47-70 [facility] Protein [Mass/Vol] 6.2 g/dL 6.4-8.2 [facility] Triglyceride [Mass/Vol] 68 mg/dL <199 [facility] Comment on above: The drugs N-Acetylcy steine and Metamizole may falsely depress this assay.Serum Triglycerides Reference Interval Normal <150 mg/dL Borderline high 150 - 199 mg/dL High 200 - 499 mg/dL Very High > or = 500 mg/dL WBC (Bld) [#/Vol] 4.1 10*3/uL 4.4-11.0 [facility] Determination of erythrocyte mean corpuscular volume (MCV)Ordered By: Tahira Meadows on 11-14-2023 MCV (RBC) [Entitic vol] 89.7 fL 81-99 [facility] Erythrocyte distribution wid th ratioOrdered By: Tahira Meadows on 11-14-2023 Erythrocyte distribution width (RBC) [Ratio] 12.4 % 11.6-14.6 [facility] Erythrocyte distribution wid th standard deviationOrdered By: Tahira Meadows on 11-14-2023 Erythrocyte distribution width (RBC) [Entitic vol] 40.2 fL 35.1-43.9 [facility] Erythrocyte sedimentation ra teOrdered By: Jose Ortega on 11-14-2023 ESR (Bld) [Velocity] 5 mm/h 0-30 [facility] HIV 1 and HIV-2 antibody ass ay with HIV-1 p24 antigen detectionOrdered By: Jose Ortega on 11-14-2023 HIV 1+2 Ab+HIV1 p24 Ag IA Ql Non-Reactive Nonreactive [facility] Hematocrit Auto (Bld) [Volum e fraction]Ordered By: Tahira Meadows on 11-14-2023 Hematocrit (Bld) [Volume fraction] 38.3 % 37-47 [facility] Immature granulocytes/100 WB C Auto (Bld)Ordered By: Tahira Meadows on 11-14-2023 Immature granulocytes/100 WBC (Bld) 0.200 % 0.0-0.9 [facility] Comment on above: IG% - Immature Granu locytes (promyelocytes, myelocytes and metamyelocytes) > 1% indicates that a LEFT SHIFT is Present. Interpretation of serum or p lasma protein pattern by immunofixation (narrative resultOrdered By: Jose Ortega on 11-14-2023 Protein Fractions Immunofixation Chavo [Interp] Not Observed g/dL Not Observed [facility] Laboratory - Chemistry and C hemistry - challengeOrdered By: Jose Ortega on 11-14-2023 Cobalamin (Vitamin B12) [Mass/Vol] 356 pg/mL 211-911 [facility] Laboratory - Chemistry and C hemistry - challengeOrdered By: Tahira Meadows on 11-14-2023 Albumin/Globulin [Mass ratio] 1.1 {ratio} 0.9-2.4 [facility] ALP [Catalytic activity/Vol] 76 U/L 45-117 [facility] ALT [Catalytic activity/Vol] 20 U/L 13-56 [facility] Cholesterol in HDL [Mass/Vol] 68 mg/dL >40 [facility] Comment on above: The drugs N-Acetylcy steine and Metamizole may falsely depress this assay. Reference Range HDL <40 mg/dL Low HDL Cholesterol HDL >or= 60 mg/dL High HDL Cholesterol Cholesterol in LDL [Mass/Vol] 54 mg/dL 0-130 [facility] Globulin (S) [Mass/Vol] 2.9 g/dL 2.2-4.2 [facility] Magnesium [Mass/Vol] 2.0 mg/dL 1.6-2.6 [facility] - Hematology and Cell countsOrdered By: Tahiar Meadows on 11-14-2023 MCH (RBC) [Entitic mass] 30.7 pg 27.0-32.0 [facility] MCHC (RBC) [Mass/Vol] 34.2 g/dL 32-36 [facility] Nucleated RBC/100 WBC (Bld) [Ratio] 0 % 0-5 [facility] Platelet mean volume (Bld) [Entitic vol] 8.4 fL 6.2-12.0 [facility] Platelets (Bld) [#/Vol] 242 10*3/uL 150-450 [facility] No Panel InformationOrdered By: Jose Ortega on 11-14-2023 Addendum Document Comment . [facility] Comment on above: Protein electrophore sis scan will follow via computer,mail, or literature professor delivery. Anti-Nuclear Antibody Screen Negative Negative [facility] Comment on above: Performed at: [employer] [address] [id number] Director: Aleksandar Alvarado PhD, Phone: [phone] C-Reactive Protein Extended Range < 2.90 mg/L 0.0-3.0 [facility] Comment on above: C-Reactive Protein ( CRP) provides useful information for thediagnosis, therapy and monitoring of inflammatory processesand associated diseases. For the evaluation of Relative Riskfor Cardiovascular Disease, a High Sensitivity CRP (HSCRP)should be ordered. Centromere B Antibody <0.2 AI 0.0-0.9 [facility] Folate 36.10 ng/mL 3.1-55.4 [facility] Immunoglobulin E 24 IU/mL 6-495 [facility] Immunoglobulin M 62 mg/dL 26-217 [facility] ANISA-1 Antibody <0.2 AI 0.0-0.9 [facility] .NET ARCHITECT Antibody <0.2 AI 0.0-0.9 [facility] SM Antibody <0.2 AI 0.0-0.9 [facility] SS-A/Ro IgG Antibody < 0.2 AI 0.0-0.9 [facility] SS-B/La IgG Antibody < 0.2 AI 0.0-0.9 [facility] < 2.90 mg/L 0.0-3.0 [facility] 356 pg/mL 211-911 [facility] 36.10 ng/mL 3.1-55.4 [facility] Negative Negative [facility] < 0.2 AI 0.0-0.9 [facility] 62 mg/dL 26- [facility] 24 IU/mL 6-495 [facility] No Panel InformationOrdered By: Tahira Meadows on 11-14-2023 VLDL Cholesterol 14 mg/dL 5-40 [facility] 30.7 pg 27.0-32.0 [facility] 34.2 g/dL 32-36 [facility] 242 K/mm3 150-450 [facility] 8.4 fl 6.2-12.0 [facility] 0 % 0-5 [facility] 1.1 RATIO 0.9-2.4 [facility] 76 U/L 45-117 [facility] 20 U/L 13-56 [facility] 2.0 mg/dL 1.6-2.6 [facility] 68 mg/dL >40 [facility] 54 mg/dL 0-130 [facility] 14 mg/dL 5-40 [facility] RBC Auto (Bld) [#/Vol]Ordere d By: Tahira Meadows on 11-14-2023 RBC (Bld) [#/Vol] 4.27 10*6/uL 4.2-5.4 [facility] Serum DNA double strand anti body assay (units/volume)Ordered By: Jose Ortega on 11-14-2023 DNA double strand Ab Qn (S) 1 [IU]/mL 0-9 [facility] Comment on above: Negative <5 Equivoca l 5 - 9 Positive >9 Serum Scl-70 antibody assay (units/volume)Ordered By: Jose Ortega on 11-14-2023 SCL-70 extractable nuclear Ab Qn (S) <0.2 AI 0.0-0.9 [facility] Serum Treponema species anti body detectionOrdered By: Jose Ortega on 11-14-2023 Treponema sp Ab Ql (S) Non-Reactive [facility] Serum [id number] measu rement by electrophoresisOrdered By: Jose Ortega on 11-14-2023 Alpha 1 globulin Elph [Mass/Vol] 0.3 g/dL 0.0-0.4 [facility] Alpha 1 globulin Elph [Mass/Vol] 0.7 g/dL 0.4-1.0 [facility] Serum cyclic citrullinated p eptide IgG antibody assay (units/volume)Ordered By: Jose Ortega on 11-14-2023 Cyclic citrullinated peptide IgG Qn 0 units 0-19 [facility] Comment on above: Negative <20 Weak po sitive 20 - 39 Moderate positive 40 - 59 Strong positive >59Performed at: - [facility] [id number] [place], [place] [id number] Director: Aleksandar Alvarado PhD, Phone: [phone] at: - [facility] [id number] Director: Aleksandar Mahoney MD, Phone: [phone] Serum globulin measurement ( mass/volume)Ordered By: Jose Ortega on 11-14-2023 Globulin (S) [Mass/Vol] 2.6 g/dL 2.2-3.9 [facility] Serum or plasma IgG measurem ent (mass/volume)Ordered By: Jose Ortega on 11-14-2023 IgG [Mass/Vol] 803 mg/dL 586-1602 [facility] Serum or plasma beta globuli n measurement by electrophoresis (mass/volume)Ordered By: Jose Ortega on 11-14-2023 Beta globulin Elph [Mass/Vol] 1.0 g/dL 0.7-1.3 [facility] Serum or plasma gamma globul in measurement by electrophoresis (mass/volume)Ordered By: Jose Ortega on 11-14-2023 Gamma globulin Elph [Mass/Vol] 0.7 g/dL 0.4-1.8 [facility] Serum or plasma immunoelectr ophoresis interpretation (nominal result)Ordered By: Jose Ortega on 11-14-2023 Interpretation IEP [Interp] Comment . [facility] Comment on above: No monoclonality det ected. Thin prep Papanicolaou smear with manual screeningOrdered By: Jose Ortega on 11-14-2023 Thin prep Papanicolaou smear with manual screening 1.5 0.7-1.7 [facility] Thin prep Papanicolaou smear with manual screeningOrdered By: Tahira Meadows on 11-14-2023 Thin prep Papanicolaou smear with manual screening 3.3 g/dL 3.2-5.0 [facility] Thin prep Papanicolaou smear with manual screening 21 U/L 15-37 [facility] Total protein bloodOrdered B y: Jose Ortega on 11-14-2023 Protein [Mass/Vol] 6.3 g/dL 6.0-8.5 [facility] Absolute lymphocyte countOrd ered By: Matthieu Gomez on 11-13-2023 Lymphocytes Auto (Unsp spec) [#/Vol] 1.27 10*3/uL 0.83-4.51 [facility] Activated partial thrombopla stin time (aPTT) in platelet poor plasma by coagulation aOrdered By: Matthieu Gomez on 11-13-2023 aPTT Coag (PPP) [Time] 29.4 s 24.1-36.2 [facility] Automated lymphocyte count a s percentage of total leukocytesOrdered By: Matthieu Gomez on 11-13-2023 Lymphocytes/100 WBC Auto (Unsp spec) 23.1 % 19-41 [facility] Basophil percentageOrdered B y: Matthieu Gomez on 11-13-2023 Basophils/100 WBC (Bld) 0.5 % 0-1 [facility] Chloride [Moles/Vol] 110 mmol/L 98-107 [facility] Eosinophils/100 WBC (Bld) 1.6 % 0-5 [facility] Glucose [Mass/Vol] 99 mg/dL 74-106 [facility] Hemoglobin (Bld) [Mass/Vol] 14.2 g/dL 12.0-15.0 [facility] Monocytes/100 WBC (Bld) 8.9 % 0-10 [facility] Neutrophils (Bld) [#/Vol] 3.6 10*3/uL 2.0-7.7 [facility] Neutrophils/100 WBC (Bld) 65.7 % 47-70 [facility] Potassium [Moles/Vol] 3.5 mmol/L 3.5-5.1 [facility] Sodium [Moles/Vol] 141 mmol/L 136-145 [facility] WBC (Bld) [#/Vol] 5.5 10*3/uL 4.4-11.0 [facility] Determination of erythrocyte mean corpuscular volume (MCV)Ordered By: Matthieu Gomez on 11-13-2023 MCV (RBC) [Entitic vol] 89.7 fL 81-99 [facility] Erythrocyte distribution wid th ratioOrdered By: Matthieu Gomez on 11-13-2023 Erythrocyte distribution width (RBC) [Ratio] 12.4 % 11.6-14.6 [facility] Erythrocyte distribution wid th standard deviationOrdered By: Matthieu Gomez on 11-13-2023 Erythrocyte distribution width (RBC) [Entitic vol] 41.2 fL 35.1-43.9 [facility] Hematocrit Auto (Bld) [Volum e fraction]Ordered By: Matthieu Gomez on 11-13-2023 Hematocrit (Bld) [Volume fraction] 42.0 % 37-47 [facility] Immature granulocytes/100 WB C Auto (Bld)Ordered By: Matthieu Gomez on 11-13-2023 Immature granulocytes/100 WBC (Bld) 0.200 % 0.0-0.9 [facility] Comment on above: IG% - Immature Granu locytes (promyelocytes, myelocytes and metamyelocytes) > 1% indicates that a LEFT SHIFT is Present. Laboratory - Chemistry and C hemistry - challengeOrdered By: Matthieu Gomez on 11-13-2023 CO2 [Moles/Vol] 30.0 mmol/L 21.0-32.0 [facility] Urea nitrogen/Creatinine [Mass ratio] 20.7 mg/mg 10-20 [facility] Laboratory - CoagulationOrde red By: Matthieu Gomez on 11-13-2023 INR Coag (Bld) [Relative time] 1.0 {INR} [facility] PT Coag (PPP) [Time] 13.1 s 11.7-14.9 [facility] Laboratory - Hematology and Cell countsOrdered By: Matthieu Gomez on 11-13-2023 MCH (RBC) [Entitic mass] 30.3 pg 27.0-32.0 [facility] MCHC (RBC) [Mass/Vol] 33.8 g/dL 32-36 [facility] Nucleated RBC/100 WBC (Bld) [Ratio] 0 % 0-5 [facility] Platelet mean volume (Bld) [Entitic vol] 8.2 fL 6.2-12.0 [facility] Platelets (Bld) [#/Vol] 269 10*3/uL 150-450 [facility] No Panel InformationOrdered By: Matthieu Gomez on 11-13-2023 Estimated Creatinine Clearance Calc 40.83 ml/min [facility] Estimated GFR (MDRD) Amer 76 mL/min >60 [facility] Comment on above: GFR Calc Estimated GFR (MDRD) Non-Af Amer 63 mL/min >60 [facility] Comment on above: Non- GFR Calc Troponin I High Sensitivity 8 pg/mL 3.0-54.0 [facility] Comment on above: Please Note: New Amrita t Units and Gender Specific Reference Ranges. For more information see Policy Stat Procedure [place] High Sensitivity Troponin (TNIH) and attachments. 13.1 SECONDS 11.7-14.9 [facility] 1.0 [facility] 8 pg/mL 3.0-54.0 [facility] RBC Auto (Bld) [#/Vol]Ordere d By: Matthieu Gomez on 11-13-2023 RBC (Bld) [#/Vol] 4.68 10*6/uL 4.2-5.4 [facility] Serum or plasma calcium santiago urement (mass/volume)Ordered By: Matthieu Gomez on 11-13-2023 Calcium [Mass/Vol] 9.2 mg/dL 8.5-10.1 [facility] Serum or plasma creatinine m easurement (mass/volume)Ordered By: Matthieu Gomez on 11-13-2023 Creatinine [Mass/Vol] 0.92 mg/dL 0.55-1.02 [facility] Comment on above: The validity of the calculated GFR & GFRAA in patients over 70 years has not been determined. Clinical correlation is essential. Serum or plasma thyroid stim ulating hormone (TSH) measurement (units/volume)Ordered By: Tahira Meadows on 11-13-2023 TSH Qn 1.53 uIU/mL 0.358-3.74 [facility] Serum or plasma urea nitroge n measurement (mass/volume)Ordered By: Matthieu Gomez on 11-13-2023 Urea nitrogen [Mass/Vol] 19 mg/dL 7-18 [facility] Thin prep Papanicolaou smear with manual screeningOrdered By: Matthieu Gomez on 11-13-2023 Thin prep Papanicolaou smear with manual screening 1 5-15 [facility] UA DIP, URINE (POC)on 2023 BILIRUBIN UA (POCT) Negative Negative [facility] CLARITY UA (POCT) Clear [facility] COLOR UA (POCT) Yellow [facility] GLUCOSE UA (POCT) Negative Negative mg/dL [facility] Hemoglobin Ql (U) Small Abnormal [facility]) Negative Negative mg/dL [facility] LEUKOCYTES UA (POCT) Negative Negative [facility] NITRITE UA (POCT) Negative Negative [facility] PH UA (POCT) 7.0 4.5 - 8.0 [facility] Protein Ql (U) Negative Negative mg/dL [facility] SPECIFIC GRAVITY UA (POCT) 1.020 1.005 - 1.030 [facility] UROBILINOGEN UA (POCT) 0.2 E.U./dL Radha l E.U./dL [facility] US Kidney - bilateral and Ur inary bladderon 10-26-2023 [facility] Absolute lymphocyte countOrd ered By: Gregory Conroy on 09-18-2023 Lymphocytes Auto (Unsp spec) [#/Vol] 0.74 10*3/uL 0.83-4.51 [facility] Basophil percentageOrdered B y: Gregory Conroy on 09-18-2023 Basophil percentage 106 mg/dL 74-106 [facility] Basophil percentage 141 mmol/L 136-145 [facility] Basophil percentage 3.8 mmol/L 3.5-5.1 [facility] Basophil percentage 108 mmol/L 98-107 [facility] Basophils (Bld) [#/Vol] 7.6 10*3/uL 4.4-11.0 [facility] Basophils (Bld) [#/Vol] 6.5 10*3/uL 2.0-7.7 [facility] Basophils/100 WBC (Bld) 0.3 % 0-1 [facility] Basophils/100 WBC (Bld) 86.2 % 47-70 [facility] Chloride [Moles/Vol] 108 mmol/L 98-107 [facility] Eosinophils/100 WBC (Bld) 0.3 % 0-5 [facility] Glucose [Mass/Vol] 106 mg/dL 74-106 [facility] Comment on above: Fasting Glucose resu lt from 100 to 125 mg/dL suggests IMPAIRED HOMEOSTASIS per A.D.A. criteria. Neutrophils (Bld) [#/Vol] 6.5 10*3/uL 2.0-7.7 [facility] Neutrophils/100 WBC (Bld) 86.2 % 47-70 [facility] Potassium [Moles/Vol] 3.8 mmol/L 3.5-5.1 [facility] Sodium [Moles/Vol] 141 mmol/L 136-145 [facility] WBC (Bld) [#/Vol] 7.6 10*3/uL 4.4-11.0 [facility] Blood erythrocytes count (nu mber/volume)Ordered By: Gregory Conroy on 09-18-2023 RBC (Bld) [#/Vol] 4.53 10*6/uL 4.2-5.4 [facility] Blood hemoglobin measurement (mass/volume)Ordered By: Gregory Conroy on 09-18-2023 Hemoglobin (Bld) [Mass/Vol] 13.8 g/dL 12.0-15.0 [facility] Blood lymphocytes/100 leukoc ytesOrdered By: Gregory Conroy on 09-18-2023 Lymphocytes/100 WBC (Bld) 9.8 % 19-41 [facility] Blood monocytes/100 leukocyt esOrdered By: Gregory Conroy on 09-18-2023 Monocytes/100 WBC (Bld) 2.9 % 0-10 [facility] Blood platelet mean volumeOr dered By: Gregory Conroy on 09-18-2023 Platelet mean volume (Bld) [Entitic vol] 8.4 fL 6.2-12.0 [facility] Determination of erythrocyte mean corpuscular volume (MCV)Ordered By: Gregory Conroy on 09-18-2023 MCV (RBC) [Entitic vol] 89.8 fL 81-99 [facility] Hematocrit Auto (Bld) [Volum e fraction]Ordered By: Gregory Conroy on 09-18-2023 Hematocrit (Bld) [Volume fraction] 40.7 % 37-47 [facility] Laboratory - Chemistry and C hemistry - challengeOrdered By: Gregory Conroy on 09-18-2023 CO2 [Moles/Vol] 31.0 mmol/L 21.0-32.0 [facility] Urea nitrogen/Creatinine [Mass ratio] 19.3 mg/mg 10-20 [facility] Laboratory - Hematology and Cell countsOrdered By: Gregory Conroy on 09-18-2023 Erythrocyte distribution width (RBC) [Entitic vol] 42.3 fL 35.1-43.9 [facility] Erythrocyte distribution width (RBC) [Ratio] 12.9 % 11.6-14.6 [facility] Immature granulocytes/100 WBC (Bld) 0.500 % 0.0-0.9 [facility] Comment on above: IG% - Immature Granu locytes (promyelocytes, myelocytes and metamyelocytes) > 1% indicates that a LEFT SHIFT is Present. MCH (RBC) [Entitic mass] 30.5 pg 27.0-32.0 [facility] Nucleated RBC/100 WBC (Bld) [Ratio] 0 % 0-5 [facility] MCHC Auto (RBC) [Mass/Vol]Or dered By: Gregory Conroy on 09-18-2023 MCHC (RBC) [Mass/Vol] 33.9 g/dL 32-36 [facility] No Panel InformationOrdered By: Gregory Conroy on 09-18-2023 D-Dimer Quantitative (PE/DVT) < 0.27 FEU/ug/m 0.27-0.49 [facility] Comment on above: NORMAL D-Dimer level (<0.50) indicates no DVT or PE. Estimated Creatinine Clearance Calc 41.24 ml/min [facility] Estimated GFR (MDRD) Amer 75 mL/min >60 [facility] Comment on above: GFR Calc Estimated GFR (MDRD) Non-Af Amer 62 mL/min >60 [facility] Comment on above: Non- GFR Calc Troponin I High Sensitivity 7 pg/mL 3.0-54.0 [facility] Comment on above: Please Note: New Amrita t Units and Gender Specific Reference Ranges. For more information see Policy Stat Procedure [place] High Sensitivity Troponin (TNIH) and attachments. 30.5 pg 27.0-32.0 [facility] 12.9 % 11.6-14.6 [facility] 42.3 fl 35.1-43.9 [facility] 0.500 % 0.0-0.9 [facility] 0 % 0-5 [facility] < 0.27 FEU/ug/m 0.27-0.49 [facility] 62 mL/min >60 [facility] 75 mL/min >60 [facility] 41.24 ml/min [facility] 19.3 RATIO 10-20 [facility] 7 pg/mL 3.0-54.0 [facility] 31.0 mmol/L 21.0-32.0 [facility] Platelets bldOrdered By: Cristina Conroy on 09-18-2023 Platelets (Bld) [#/Vol] 273 10*3/uL 150-450 [facility] Serum or plasma calcium santiago urement (mass/volume)Ordered By: Gregory Conroy on 09-18-2023 Calcium [Mass/Vol] 9.2 mg/dL 8.5-10.1 [facility] Serum or plasma creatinine m easurement (mass/volume)Ordered By: Gregory Conroy on 09-18-2023 Creatinine [Mass/Vol] 0.93 mg/dL 0.55-1.02 [facility] Comment on above: The validity of the calculated GFR & GFRAA in patients over 70 years has not been determined. Clinical correlation is essential. Serum or plasma urea nitroge n measurement (mass/volume)Ordered By: Gregory Conroy on 09-18-2023 Urea nitrogen [Mass/Vol] 18 mg/dL 7-18 [facility] Thin prep Papanicolaou smear with manual screeningOrdered By: Gregory Conroy on 09-18-2023 Thin prep Papanicolaou smear with manual screening 2 5-15 [facility] XR Chest PA and Lateralon IMPRESSION: Stable exam with no definite acute radiographic abnormality. Transformation Specialist: PSCB Transcribe Date/Time: Sep 16 2023 8:36A Dictated by : CRESENCIO ÁLVAREZ MD This examination was interpreted and the report reviewed and electronically signed by: CRESENCIO ÁLVAREZ MD on Sep 16 2023 8:37AM [facility] DIVISION OF RADIOLOGY * * *Final Report* * * DATE OF EXAM: Sep 13 2023 1:52PM WOX 5291 - XR CHEST 2V FRONTAL/LAT / PROCEDURE REASON: multiple diagnoses * * * * Physician Interpretation * * * * EXAMINATION: CHEST RADIOGRAPH (2 VIEW FRONTAL & LATERAL) CLINICAL HISTORY: COVID-19 Acute cough MQ: XC2_6 EXAM DATE/TIME: 09/13/2023 1:52 PM COMPARISON: 12/13/2018. RESULT: Lines, tubes, and devices: None. Lungs and pleura: No consolidation. No lung mass. No pleural effusion. No pneumothorax. Cardiomediastinal silhouette: Stable cardiomediastinal silhouette with diffuse atherosclerosis of the thoracoabdominal aorta. Bones and soft tissues: There are healed fractures involving the left mid ribs. DIVISION OF RADIOLOGY Provider, [facility] - 09/16/2023 * * *Final Report* * * DATE OF EXAM: Sep 13 2023 1:52PM WOX 5291 - XR CHEST 2V FRONTAL/LAT / PROCEDURE REASON: multiple diagnoses * * * * Physician Interpretation * * * * EXAMINATION: CHEST RADIOGRAPH (2 VIEW FRONTAL & LATERAL) CLINICAL HISTORY: COVID-19 Acute cough MQ: XC2_6 EXAM DATE/TIME: 09/13/2023 1:52 PM COMPARISON: 12/13/2018. RESULT: Lines, tubes, and devices: None. Lungs and pleura: No consolidation. No lung mass. No pleural effusion. No pneumothorax. Cardiomediastinal silhouette: Stable cardiomediastinal silhouette with diffuse atherosclerosis of the thoracoabdominal aorta. Bones and soft tissues: There are healed fractures involving the left mid ribs. IMPRESSION IMPRESSION: Stable exam with no definite acute radiographic abnormality. Transformation Specialist: PSCB Transcribe Date/Time: Sep 16 2023 8:36A Dictated by : CRESENCIO ÁLVAREZ MD This examination was interpreted and the report reviewed and electronically signed by: CRESENCIO ÁLVAREZ MD on Sep 16 2023 8:37AM EST [facility] XR Chest PA and LateralOrder ed By: [facility]cf Provider on 09-16-2023 [facility] XR Chest PA and Lateralon Radiology Study observation (narrative) [facility] Basophil percentageOrdered B y: Minoo Morillo on 08-23-2023 Basophil percentage < 1.0 mg/dL 0.55-1.02 [facility] No Panel InformationOrdered By: Minoo Rodriguezhn on 08-23-2023 Bedside Estimated GFR (eGFR) > 60.0000 mL/min >60 [facility] LG Jt Injection/Arthrocentes is: L kneeon 07-26-2023 Juan Kilpatrick CNP 07/27/2023 1:05 PM LG Jt Injection/Arthrocentesi s: L knee Performed by: Juan Kilpatrick CNP Authorized by: Juan Kilpatrick CNP CPT 88179 - Large Joint Arthrocentesis: Consent given by: Patient Time out: Immediately prior to the procedure a time out was called Physician or proceduralist has discussed critical or nonroutine steps, procedure duration and anticipated blood loss: Yes Supporting Documentation: Indications: Pain and diagnostic evaluation Procedure Details: Location: Knee Site: L knee Prep: patient was prepped and draped in usual sterile fashion Needle size: 22 G Approach: Anterolateral Medications: 40 mg triamcinolone acetonide 40 mg/mL Anesthetic used: Lidocaine 1% Anesthetic amount (mL): 2 Patient tolerance: Patient tolerated the procedure well with no immediate complications [facility] LG Jt Injection/Arthrocentes is: R kneeon 07-26-2023 Juan Kilpatrick CNP 07/27/2023 1:05 PM LG Jt Injection/Arthrocentesi s: R knee Performed by: Juan Kilpatrick CNP Authorized by: Juan Kilpatrick CNP CPT 78612 - Large Joint Arthrocentesis: Consent given by: Patient Time out: Immediately prior to the procedure a time out was called Physician or proceduralist has discussed critical or nonroutine steps, procedure duration and anticipated blood loss: Yes Supporting Documentation: Indications: Pain, joint swelling and diagnostic evaluation Procedure Details: Location: Knee Site: R knee Prep: patient was prepped and draped in usual sterile fashion Needle size: 22 G Approach: Anterolateral Medications: 40 mg triamcinolone acetonide 40 mg/mL Anesthetic used: Lidocaine 1% Anesthetic amount (mL): 2 Patient tolerance: Patient tolerated the procedure well with no immediate complications [facility] No Panel Informationon 07-[address] [facility] XR KNEES BILATERAL 4+ VIEWS (SPECIFY VIEWS IN COMMENTS)on 07-26-2023 XR KNEES BILATERAL 4+ VIEWS (SPECIFY VIEWS IN COMMENTS) EXAMINATION: XR KNEES BILATERAL 4+ VIEWS (SPECIFY VIEWS IN COMMENTS) HISTORY: ORDERING SYSTEM PROVIDED HISTORY: Pain, TECHNOLOGIST PROVIDED HISTORY: Injury/Trauma Reason for exam: pain in right and left knee has had several falls, last fall April 2023 Cancer History: n Surgery, RadiationHistory: heart stents Encounter Type: Initial Mechanism of injury: fall ORDERING SYSTEM PROVIDED DIAGNOSIS CODES: R52 Pain COMPARISON: None. FINDINGS: AP standing, [place] and [place] views of both knees. Lateral view of each knee. RIGHT KNEE: No acute osseous abnormality. No subluxation or dislocation. Mild medial knee compartment joint space narrowing. Minimal spurring of the patellofemoral compartment. Small superior patellar enthesophyte. Chondrocalcinosis of the medial and lateral knee compartments. LEFT KNEE: No acute osseous abnormality. No subluxation or dislocation. Mild medial knee compartment joint space narrowing. Minimal spurring of the patellofemoral compartment. No significant joint effusion. IMPRESSION: No acute osseous abnormality. ST/ Workstation ID: [id number] Dictated by: JOHN SEPULVEDA on MonJul 26, 2023 11:39:06 AM EST Transcribed by: GABY BEY on MonJul 26, 2023 11:54:11 AM EST Finalized by: JOHN SEPULVEDA on MonJul 30, 2023 11:24:03 PM EST Normal [facility] Comment on above: Order Comment: Injur y/Trauma or Illness?:Injury/Trauma How long have you had these symptoms (acute/chronic)?:Chronic Reason for exam?:pain in right and left knee has had several falls, last fall April 2023 History of cancer?:n Surgeries, chemotherapy, or radiation?:heart stents Type of Exam?:Initial Mechanism of injury?:fall XR FOOT LEFT 3+ VIEWS (STAND DARIN)on 07-05-2023 XR FOOT LEFT 3+ VIEWS (STANDARD) Does have moderate to severe first MPJ joint space loss with dorsal enthesophytes present. Otherwise no fractures dislocations or subluxations seen. Dictated by: MACIEJ BIRMINGHAM on MonJul 05, 2023 3:35:06 PM EDT Transcribed by: MACIEJ BIRMINGHAM on MonJul 05, 2023 3:35:06 PM EDT Finalized by: VALENCIAJUANH on MonJul 05, 2023 3:35:06 PM EDT [facility] Comment on above: Order Comment: Injur y/Trauma or Illness?:Injury/Trauma How long have you had these symptoms (acute/chronic)?:Acute Reason for exam?:left footpain x 6-8 weeks History of cancer?:n Surgeries, chemotherapy, or radiation?:heart stents Type of Exam?:Initial Mechanism of injury?:fell and toes bent under XR Foot Left 3+ Views (Stand darin)on 07-05-2023 Does have moderate t o severe first MPJ joint space loss with dorsal enthesophytes present. Otherwise no fractures dislocations or subluxations seen. STEARCLEAR [facility] Radiology Study observation (narrative) [facility] XR FOOT GENERAL 3V AP/LAT/OB L LEFTon 05-05-2023 [facility] XR Foot - left AP and Latera l and obliqueon 05-05-2023 IMPRESSION: No acute fracture. Degenerative disease of the left foot. Transformation Specialist: FLORINDA Transcribe Date/Time: May 05 2023 4:03P Dictated by : DARRYN MOHAN MD This examination was interpreted and the report reviewed and electronically signed by: DARRYN MOHAN MD on May 05 2023 4:06PM [facility] DIVISION OF RADIOLOGY * * *Final Report* * * DATE OF EXAM: May 05 2023 3:55PM WOX 5336 - XR FOOT 3V AP/LAT/OBL LT / PROCEDURE REASON: Foot pain, left * * * * Physician Interpretation * * * * EXAMINATION: XR FOOT 3V AP/LAT/OBL LT CLINICAL HISTORY: Left foot pain Technique: XR FOOT 3V AP/LAT/OBL LT -- LEFT with 3 views on 3 images Comparison: X-ray left foot 11/01/2017 RESULT: No acute fracture or dislocation. Marked narrowing of the left first metatarsophalangeal joint with subchondral sclerosis and marginal osteophytes. Moderate narrowing of multiple interphalangeal joints. DIVISION OF RADIOLOGY Provider, [facility] - 05/05/2023 * * *Final Report* * * DATE OF EXAM: May 05 2023 3:55PM WOX 5336 - XR FOOT 3V AP/LAT/OBL LT / PROCEDURE REASON: Foot pain, left * * * * Physician Interpretation * * * * EXAMINATION: XR FOOT 3V AP/LAT/OBL LT CLINICAL HISTORY: Left foot pain Technique: XR FOOT 3V AP/LAT/OBL LT -- LEFT with 3 views on 3 images Comparison: X-ray left foot 11/01/2017 RESULT: No acute fracture or dislocation. Marked narrowing of the left first metatarsophalangeal joint with subchondral sclerosis and marginal osteophytes. Moderate narrowing of multiple interphalangeal joints. IMPRESSION IMPRESSION: No acute fracture. Degenerative disease of the left foot. Transformation Specialist: PSCB Transcribe Date/Time: May 05 2023 4:03P Dictated by : DARRYN MOHAN MD This examination was interpreted and the report reviewed and electronically signed by: DARRYN MOHAN MD on May 05 2023 4:06PM EST [facility] Radiology Study observation (narrative) [facility] XR Foot - left AP and Latera l and obliqueOrdered By: Ccf Provider on 05-05-[address] [facility] [address] BRAIN WO IVCONon 04-20-[address] BRAIN WO IVCON * * *Final Report* * * DATE OF EXAM: Apr 20 2023 2:59PM [facility] [place] 0504 - CT BRAIN WO IVCON / PROCEDURE REASON: Injury of head, initial encounter * * * * Physician Interpretation * * * * EXAMINATION: CT BRAIN WO IVCON CLINICAL HISTORY: Patient fell injuring her head. Headache. TECHNIQUE: Serial axial images without IV contrast were obtained from the vertex to the foramen magnum. MQ: CTBWO_3 CT Radiation dose: Integrated Dose-Length Product (DLP) for this visit = 706.22 mGy*cm CT Dose Reduction Employed: Iterative recon COMPARISON: MRI brain 04/27/2012. CT brain 10/12/2011. RESULT: Buffing Wheel Presser (topogram) images: No additional findings. Post-operative change: None. Acute change: No evidence of an acute infarct or other acute parenchymal process. Hemorrhage: No evidence of acute intracranial hemorrhage. ECASS hemorrhagic transformation score: Not Applicable Mass Lesion / Mass Effect: There is no evidence of an intracranial mass or extraaxial fluid collection. No significant mass effect. Chronic change: Scattered patchy foci of low attenuation are present within supratentorial white matter which is a nonspecific finding but likely represents mild microvascular ischemia. Parenchyma: There is no significant volume loss. The brain parenchyma is otherwise within normal limits for age. Ventricles: The ventricles are within normal limits of size and configuration for age. Paranasal sinuses and skull base: The visualized paranasal sinuses are grossly clear. The skull base and imaged soft tissues are unremarkable. IMPRESSION: No CT evidence of acute intracranial pathology. Transformation Specialist: [facility] Transcribe Date/Time: Apr 20 2023 3:08P Dictated by : CHRISTINE MUNGUIA MD This examination was interpreted and the report reviewed and electronically signed by: CHRISTINE MUNGUIA MD on Apr 20 2023 3:14PM EST [id number] Normal [facility] No Panel Informationon 04-20 [facility] XR FACIAL BONES 3V AP[facility]LAT/[facility] XR FACIAL BONES 3V AP/LAT/DRISCOLL * * *Final Report* * * DATE OF EXAM: Apr 20 2023 3:41PM LDX 5329 - XR FACIAL BONES 3V AP/LAT/DRISCOLL / PROCEDURE REASON: multiple diagnoses * * * * Physician Interpretation * * * * HISTORY: 77-YEAR-OLD FEMALE WITH Fall, initial encounter Contusion of cheek, initial encounter . Fall x one day ago, hit head, injury to right lateral orbital rim,c/o anterior right knee pain. TECHNIQUE: XR FACIAL BONES 3V AP/LAT/DRISCOLL Laterality: NOT APPLICABLE Number of different views (projections): 3 COMPARISON: None RESULT: Skull: No acute fractures identified, specifically no fracture in the right orbital rim. The sinuses are clear.. IMPRESSION: NO ACUTE BONY ABNORMALITY. Transformation Specialist: [facility] Transcribe Date/Time: Apr 24 2023 3:39P Dictated by : MARIA ESTHER ALBERTO MD This examination was interpreted and the report reviewed and electronically signed by: MARIA ESTHER ALBERTO MD on Apr 24 2023 3:43PM EST [id number] Normal [facility] XR KNEE 4V AP/LAT/OBLS RTon 04-20-2023 XR KNEE 4V AP/LAT/OBLS RT * * *Final Report* * * DATE OF EXAM: Apr 20 2023 3:41PM LDX 5205 - XR KNEE 4V AP/LAT/OBLS RT / PROCEDURE REASON: Acute pain of right knee * * * * Physician Interpretation * * * * EXAM TITLE: XR KNEE 4V AP/LAT/OBLS RT DATE: 04/24/2023 2:30 PM INDICATION: Right knee pain COMPARISON: 10/27/2021 FINDINGS: Bilateral meniscal chondrocalcinosis suggests calcium pyrophosphate deposition disease. No fracture or dislocation. No joint effusion. 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 Transformation Specialist: [facility] Transcribe Date/Time: Apr 24 2023 2:30P Dictated by : ZAID FORRESTER MD This examination was interpreted and the report reviewed and electronically signed by: ZAID FORRESTER MD on Apr 24 2023 2:31PM EST [id number] Normal [facility] Basophil percentageOrdered B y: Nohelia Angel on 04-12-2023 Chloride [Moles/Vol] 99 mmol/L 98-107 [facility] Glucose [Mass/Vol] 107 mg/dL 74-106 [facility] Comment on above: Fasting Glucose resu lt from 100 to 125 mg/dL suggests IMPAIRED HOMEOSTASIS per A.D.A. criteria. Potassium [Moles/Vol] 3.9 mmol/L 3.5-5.1 [facility] Sodium [Moles/Vol] 133 mmol/L 136-145 [facility] Laboratory - Chemistry and C hemistry - challengeOrdered By: Nohelia Angel on 04-12-2023 CO2 [Moles/Vol] 30.0 mmol/L 21.0-32.0 [facility] Urea nitrogen/Creatinine [Mass ratio] 15.7 mg/mg 10-20 [facility] No Panel InformationOrdered By: Nohelia Angel on 04-12-2023 Estimated GFR (MDRD) Amer 67 mL/min >60 [facility] Comment on above: GFR Calc Estimated GFR (MDRD) Non-Af Amer 56 mL/min >60 [facility] Comment on above: Non- GFR Calc Thyroid Stimulating Hormone (TSH) 0.66 uIU/mL 0.358-3.74 [facility] Serum or plasma calcium santiago urement (mass/volume)Ordered By: Nohelia Angel on 04-12-2023 Calcium [Mass/Vol] 9.0 mg/dL 8.5-10.1 [facility] Serum or plasma creatinine m easurement (mass/volume)Ordered By: Nohelia Angel on 04-12-2023 Creatinine [Mass/Vol] 1.02 mg/dL 0.55-1.02 [facility] Comment on above: The validity of the calculated GFR & GFRAA in patients over 70 years has not been determined. Clinical correlation is essential. Serum or plasma urea nitroge n measurement (mass/volume)Ordered By: Nohelia Angel on 04-12-2023 Urea nitrogen [Mass/Vol] 16 mg/dL 03-28 [facility] Thin prep Papanicolaou smear with manual screeningOrdered By: Nohelia Angel on 04-12-2023 Thin prep Papanicolaou smear with manual screening 4 - [facility] UA DIP, URINE (POC)on 2022 BILIRUBIN UA (POCT) Negative Negative [facility] CLARITY UA (POCT) Cloudy [facility] COLOR UA (POCT) Yellow [facility] GLUCOSE UA (POCT) Negative Negative mg/dL [facility] HEMOGLOBIN/BLOOD UA (POCT) Small Abnormal Negative [facility] KETONE UA (POCT) Negative Negative mg/dL [facility] LEUKOCYTES UA (POCT) Trace Abnormal Negative [facility] NITRITE UA (POCT) Negative Negative [facility] PH UA (POCT) 6.5 4.5 - 8.0 [facility] Protein Ql (U) Negative Negative mg/dL [facility] SPECIFIC GRAVITY UA (POCT) 1.020 1.005 - 1.030 [facility] UROBILINOGEN UA (POCT) 0.2 E.U./dL Radha l E.U./dL [facility] PT Progress Noteon 3 PT Progress Note Therapy Diagnosis Assessed Impingement syndrome of left shoulder (726.2) (M75.42) Left shoulder pain (719.41) (M25.512) Low back pain (724.2) (M54.50) Pain in right hip (719.45) (M25.551) Plan Goals: Goals set and discussed today. 1. Independent HEP to allow for 50% reduction in max ADL C/C sx ( 6/10-LB; 8/10-L shldr; 06/20-R hip) 2-3wks 0/10-LB; 0/10 L shldr; 02/12/23; MET 2. 0/10 night time sx to allow for uninterrupted sleep x1wk ( 03/17-shldr) 2-3wks no longer wakes at night; ; MET 3. Survey score improvement from 34% to 25% (QDI) 3-4wks 31% as of 02/13/23; PARTIALLY MET; 4. Survey score improvement from 38% to 30% (SEGUNDO) 3-4wks 0% as of 02/13/23; MET 5. Survey score improvement from 48/80 to 55/80 (LEFS) 3-4wks 71/80 as of 02/13/23; MET 6. ROM increase to allow for improved ADL (dressing lowers from 60% to 75% SFB) 3-4wks notes ADL improvements; 100% SFB; 02/13/23; MET 7. ROM increase to allow for improved ADL reaching, dressing uppers (from 90 to 110 active L shldr elevation) 3-4wks notes ADL improvements; 130 active elevation today; 02/13/23; MET 8. Strength increase to allow for improved ADL car transfers, STS (from gr4+ to gr5 R hip strength) 3-4wks no more problems with above ADL; gr5 R hip strength; 02/13/23; MET 9. Strength increase to allow for improved ADL object handling (from gr4-/4 L shldr abd/IER to gr4+) 3-4wks gr4+ L shldr abd/ER; notes improved ADL ; 02/13/23; MET Planned interventions include: aquatic therapy, cryotherapy, dry needling, education/instruction, home program, hot pack, kinesiotaping, manual therapy, self care/home management, therapeutic exercises and IASTM/cupping. Frequency and duration: 2 time(s) a week, for 4 weeks, for 8 visits. Potential to achieve rehab goals is fair: multiple areas of complaint Discharge patient: Achieved all and/or the most significant goal(s). the patient agrees with D/C to ongoing HEP with progress achieved. Assessment Patient identity confirmed today with name/. see goals; excellent ROM/strength gains throughout; all ADL tolerances have improved also. Adult Risk Screening There are no spiritual/cultural practices/values/needs that are important to know Initial Fall Risk Screening: BHARTI has not fallen in the last 6 months. BHARTI does not have a fear of falling. She does not need assistance with sitting, standing or walking. Does not need assistance walking in her home. She does not need assistance in an unfamiliar setting. The patient is not using an assistive device. Please identify location of pain: LB=02/18; L shldr=04/20; R hip=06/20. Living Will. Living Will: Living will on file. Patient Declined. Healthcare POA: Health care proxy on file. Patient Declined. Declaration of Mental Health Treatment: No mental health treatment on file. Patient Declined. Insurance Insurance reviewed Visit number: 9 [employer] Evaluating therapist Allen Plaza PT. M75.42; M25.512; M54.50; M25.551 Subjective Patient reports:. No pain right now. Precautions: Fall Risk: none Pertinent medical HX includes: angina//stents placed; headaches; OA. Treatment Time in clinic started at 4:57 pm Time in clinic ended at 5:30 pm Total time in clinic is 33 minutes. Total timed code time is 15 minutes. Therapeutic exercise (71009): timed minutes 15, units 1 . final HEP abridged and reviewed today NOT TODAY L shldr UBE 2x2' Lv2.5 Standing rows w/pink tub 2x10 Standing ER w/purple tub d 2x10 Standing IR w/purple tub 2x10 chest press 2x10 teal tub Pulleys x 3' trunk ROM/R hip PRE: partial bridge 2x10 hooklying clamshell 2x10 tammy pirif stretch 30 ea LTR x10 SLR 2x10 ea P Hamstring stretch x3 w/15 hold B X seated H add 2x10 ea purple tub P hip ext OET x10 ea (with TA set) N heel lift trial, (attempted) X . Manual Therapy (26878):. NOT TODAY PROM L shldr all dir. Other CPT Codes:. NOT TODAY trial heel lift fitting. Self Care Management Training (41918) . Provided today:. HEP handout;. 'Scores and Scales' Signatures Electronically signed by : Inderjit Plaza, PT; Feb 13 2023 5:37PM EST (Author) [facility] Re-eval Noteon 02-13 Therapy Re-eval Note Therapy Diagnosis Assessed 1. Impingement syndrome of left shoulder (726.2) (M75.42) 2. Left shoulder pain (719.41) (M25.512) 3. Low back pain (724.2) (M54.50) 4. Pain in right hip (719.45) (M25.551) Plan Goals: Goals set and discussed today. 1. Independent HEP to allow for 50% reduction in max ADL C/C sx ( 6/10-LB; 8/10-L shldr; 06/20-R hip) 2-3wks 0/10-LB; 0/10 L shldr; 02/12/23; MET 2. 0/10 night time sx to allow for uninterrupted sleep x1wk ( 03/17-shldr) 2-3wks no longer wakes at night; ; MET 3. Survey score improvement from 34% to 25% (QDI) 3-4wks 31% as of 02/13/23; PARTIALLY MET; 4. Survey score improvement from 38% to 30% (SEGUNDO) 3-4wks 0% as of 02/13/23; MET 5. Survey score improvement from 48/80 to 55/80 (LEFS) 3-4wks 71/80 as of 02/13/23; MET 6. ROM increase to allow for improved ADL (dressing lowers from 60% to 75% SFB) 3-4wks notes ADL improvements; 100% SFB; 02/13/23; MET 7. ROM increase to allow for improved ADL reaching, dressing uppers (from 90 to 110 active L shldr elevation) 3-4wks notes ADL improvements; 130 active elevation today; 02/13/23; MET 8. Strength increase to allow for improved ADL car transfers, STS (from gr4+ to gr5 R hip strength) 3-4wks no more problems with above ADL; gr5 R hip strength; 02/13/23; MET 9. Strength increase to allow for improved ADL object handling (from gr4-/4 L shldr abd/IER to gr4+) 3-4wks gr4+ L shldr abd/ER; notes improved ADL ; 02/13/23; MET Planned interventions include: aquatic therapy, cryotherapy, dry needling, education/instruction, home program, hot pack, kinesiotaping, manual therapy, self care/home management, therapeutic exercises and IASTM/cupping. Frequency and duration: 2 time(s) a week, for 4 weeks, for 8 visits. Potential to achieve rehab goals is fair: multiple areas of complaint Discharge patient: Achieved all and/or the most significant goal(s). the patient agrees with D/C to ongoing HEP with progress achieved. Assessment Patient identity confirmed today with name/. see goals; excellent ROM/strength gains throughout; all ADL tolerances have improved also. Adult Risk Screening There are no spiritual/cultural practices/values/needs that are important to know Initial Fall Risk Screening: BHARTI has not fallen in the last 6 months. BHARTI does not have a fear of falling. She does not need assistance with sitting, standing or walking. Does not need assistance walking in her home. She does not need assistance in an unfamiliar setting. The patient is not using an assistive device. Please identify location of pain: LB=02/18; L shldr=04/20; R hip=06/20. Living Will. Living Will: Living will on file. Patient Declined. Healthcare POA: Health care proxy on file. Patient Declined. Declaration of Mental Health Treatment: No mental health treatment on file. Patient Declined. Insurance Insurance reviewed Visit number: 9 [employer] Evaluating therapist Allen Plaza PT. M75.42; M25.512; M54.50; M25.551 Subjective Patient reports:. No pain right now. Precautions: Fall Risk: none Pertinent medical HX includes: angina//stents placed; headaches; OA. Treatment Time in clinic started at 4:57 pm Time in clinic ended at 5:30 pm Total time in clinic is 33 minutes. Total timed code time is 15 minutes. Therapeutic exercise (77606): timed minutes 15, units 1 . final HEP abridged and reviewed today NOT TODAY L shldr UBE 2x2' Lv2.5 Standing rows w/pink tub 2x10 Standing ER w/purple tub d 2x10 Standing IR w/purple tub 2x10 chest press 2x10 teal tub Pulleys x 3' trunk ROM/R hip PRE: partial bridge 2x10 hooklying clamshell 2x10 tammy pirif stretch 30 ea LTR x10 SLR 2x10 ea P Hamstring stretch x3 w/15 hold B X seated H add 2x10 ea purple tub P hip ext OET x10 ea (with TA set) N heel lift trial, (attempted) X . Manual Therapy (37629):. NOT TODAY PROM L shldr all dir. Other CPT Codes:. NOT TODAY trial heel lift fitting. Self Care Management Training (48960) . Provided today:. HEP handout;. 'Scores and Scales' Signatures Electronically signed by : Inderjit Plaza, PT; Feb 13 2023 5:37PM EST (Author) [facility] Progress Noteon 3 PT Progress Note Therapy Diagnosis Assessed Pain in right hip (719.45) (M25.551) Low back pain (724.2) (M54.50) Left shoulder pain (719.41) (M25.512) Impingement syndrome of left shoulder (726.2) (M75.42) Plan Goals: Goals set and discussed today. 1. Independent HEP to allow for 50% reduction in max ADL C/C sx ( 6/10-LB; 8/10-L shldr; 10/10-R hip) 2-3wks 2. 0/10 night time sx to allow for uninterrupted sleep x1wk ( 7/7-shldr) 2-3wks 3. Survey score improvement from 34% to 25% (QDI) 3-4wks 4. Survey score improvement from 38% to 30% (SEGUNDO) 3-4wks 5. Survey score improvement from 48/80 to 55/80 (LEFS) 3-4wks 6. ROM increase to allow for improved ADL (dressing lowers from 60% to 75% SFB) 3-4wks 7. ROM increase to allow for improved ADL reaching, dressing uppers (from 90 to 110 active L shldr elevation) 3-4wks 8. Strength increase to allow for improved ADL car transfers, STS (from gr4+ to gr5 R hip strength) 3-4wks 9. Strength increase to allow for improved ADL object handling (from gr4-/4 L shldr abd/IR to gr4+) 3-4wks Planned interventions include: aquatic therapy, cryotherapy, dry needling, education/instruction, home program, hot pack, kinesiotaping, manual therapy, self care/home management, therapeutic exercises and IASTM/cupping. Frequency and duration: 2 time(s) a week, for 4 weeks, for 8 visits. Potential to achieve rehab goals is fair: multiple areas of complaint recheck next visit; anticipate D/C soon . Progress with POC, as tolerated. Assessment Patient identity confirmed today with name/. added to HEP and given handouts; full L shldr PROM all dir with no pain today. Adult Risk Screening There are no spiritual/cultural practices/values/needs that are important to know Initial Fall Risk Screening: BHARTI has not fallen in the last 6 months. BHARTI does not have a fear of falling. She does not need assistance with sitting, standing or walking. Does not need assistance walking in her home. She does not need assistance in an unfamiliar setting. The patient is not using an assistive device. Please identify location of pain: LB=02/18; L shldr=04/20; R hip=06/20. Living Will. Living Will: Living will on file. Patient Declined. Healthcare POA: Health care proxy on file. Patient Declined. Declaration of Mental Health Treatment: No mental health treatment on file. Patient Declined. Insurance Insurance reviewed Visit number: 8 [employer] Evaluating therapist Allen Plaza PT. M75.42; M25.512; M54.50; M25.551 Subjective Patient reports:. No pain right now. My shoulder is doing better. Precautions: Fall Risk: none Pertinent medical HX includes: angina//stents placed; headaches; OA. Treatment Time in clinic started at 5:15 pm Time in clinic ended at 6:00 pm Total time in clinic is 45 minutes. Total timed code time is 44 minutes. Therapeutic exercise (43413): timed minutes 39, units 3 . L shldr UBE 2x2' Lv2.5 Standing rows w/pink tub 2x10 Standing ER w/purple tub d 2x10 Standing IR w/purple tub 2x10 chest press 2x10 teal tub Pulleys x 3' trunk ROM/R hip PRE: partial bridge 2x10 hooklying clamshell 2x10 tammy pirif stretch 30 ea LTR x10 SLR 2x10 ea P Hamstring stretch x3 w/15 hold B X seated H add 2x10 ea purple tub P hip ext OET x10 ea (with TA set) N heel lift trial, (attempted) X . Manual Therapy (54391): timed minutes 5, units 0 . PROM L shldr all dir. Other CPT Codes:. NOT TODAY trial heel lift fitting. Self Care Management Training (41151) . Provided today:. HEP handout;. 'Scores and Scales' Signatures Electronically signed by : Inderjit Plaza, PT; Feb 10 2023 6:04PM EST (Author) [facility] PT Progress Noteon 3 PT Progress Note Therapy Diagnosis Assessed Pain in right hip (719.45) (M25.551) Low back pain (724.2) (M54.50) Left shoulder pain (719.41) (M25.512) Impingement syndrome of left shoulder (726.2) (M75.42) Plan Goals: Goals set and discussed today. 1. Independent HEP to allow for 50% reduction in max ADL C/C sx ( 6/10-LB; 8/10-L shldr; 10/10-R hip) 2-3wks 2. 0/10 night time sx to allow for uninterrupted sleep x1wk ( 7/7-shldr) 2-3wks 3. Survey score improvement from 34% to 25% (QDI) 3-4wks 4. Survey score improvement from 38% to 30% (SEGUNDO) 3-4wks 5. Survey score improvement from 48/80 to 55/80 (LEFS) 3-4wks 6. ROM increase to allow for improved ADL (dressing lowers from 60% to 75% SFB) 3-4wks 7. ROM increase to allow for improved ADL reaching, dressing uppers (from 90 to 110 active L shldr elevation) 3-4wks 8. Strength increase to allow for improved ADL car transfers, STS (from gr4+ to gr5 R hip strength) 3-4wks 9. Strength increase to allow for improved ADL object handling (from gr4-/4 L shldr abd/IR to gr4+) 3-4wks Planned interventions include: aquatic therapy, cryotherapy, dry needling, education/instruction, home program, hot pack, kinesiotaping, manual therapy, self care/home management, therapeutic exercises and IASTM/cupping. Frequency and duration: 2 time(s) a week, for 4 weeks, for 8 visits. Potential to achieve rehab goals is fair: multiple areas of complaint Continue with left shoulder ROM and LE ther-ex to decrease pain, improve sleeping and lifting. Progress with POC, as tolerated. Assessment Patient identity confirmed today with name/. added to HEP and given handout; there was one fall since last visit (trip and fall so no addition to fall risk); reduced shldr discomfort with L shldr flexion PROM. Adult Risk Screening There are no spiritual/cultural practices/values/needs that are important to know Initial Fall Risk Screening: BHARTI has not fallen in the last 6 months. BHARTI does not have a fear of falling. She does not need assistance with sitting, standing or walking. Does not need assistance walking in her home. She does not need assistance in an unfamiliar setting. The patient is not using an assistive device. Please identify location of pain: LB=6/10; L shldr=8/10; R hip=06/20. Living Will. Living Will: Living will on file. Patient Declined. Healthcare POA: Health care proxy on file. Patient Declined. Declaration of Mental Health Treatment: No mental health treatment on file. Patient Declined. Insurance Insurance reviewed Visit number: 6 [employer] Evaluating therapist Allen Plaza PT. M75.42; M25.512; M54.50; M25.551 Subjective Patient reports:. I am achy all over. I have been told I have fibromyalgia. Precautions: Fall Risk: none Pertinent medical HX includes: angina//stents placed; headaches; OA. Treatment Time in clinic started at 5:03 pm Time in clinic ended at 5:48 pm Total time in clinic is 45 minutes. Total timed code time is 44 minutes. Therapeutic exercise (42030): timed minutes 39, units 3 . L shldr UBE 2x2' Lv1 Standing rows w/pink Tband 2x10 Standing ER w/purple Tband 2x10 Standing IR w/pink Tband 2x10 chest press 2x10 teal Pulleys x 3' trunk ROM/R hip PRE: partial bridge 2x10 hooklying clamshell 2x10 tammy pirif stretch 30 ea LTR x10 SLR 2x10 ea P Hamstring stretch x3 w/15 hold B seated H add x10 ea peach hip ext OET x10 ea (with TA set)-A heel lift trial, (attempted) X . Manual Therapy (69180): timed minutes 5, units 0 . PROM L shldr all dir. Other CPT Codes:. NOT TODAY trial heel lift fitting. Self Care Management Training (02502) . Provided today:. HEP handout; Tband. 'Scores and Scales' Signatures Electronically signed by : Inderjit Plaza, PT; Feb 10 2023 4:43PM EST (Author) Normal [facility] PT Progress Noteon 3 PT Progress Note Therapy Diagnosis Assessed Low back pain (724.2) (M54.50) Impingement syndrome of left shoulder (726.2) (M75.42) Left shoulder pain (719.41) (M25.512) Pain in right hip (719.45) (M25.551) Plan Goals: Goals set and discussed today. 1. Independent HEP to allow for 50% reduction in max ADL C/C sx ( 6/10-LB; 8/10-L shldr; 10/10-R hip) 2-3wks 2. 0/10 night time sx to allow for uninterrupted sleep x1wk ( 7/7-shldr) 2-3wks 3. Survey score improvement from 34% to 25% (QDI) 3-4wks 4. Survey score improvement from 38% to 30% (SEGUNDO) 3-4wks 5. Survey score improvement from 48/80 to 55/80 (LEFS) 3-4wks 6. ROM increase to allow for improved ADL (dressing lowers from 60% to 75% SFB) 3-4wks 7. ROM increase to allow for improved ADL reaching, dressing uppers (from 90 to 110 active L shldr elevation) 3-4wks 8. Strength increase to allow for improved ADL car transfers, STS (from gr4+ to gr5 R hip strength) 3-4wks 9. Strength increase to allow for improved ADL object handling (from gr4-/4 L shldr abd/IR to gr4+) 3-4wks Planned interventions include: aquatic therapy, cryotherapy, dry needling, education/instruction, home program, hot pack, kinesiotaping, manual therapy, self care/home management, therapeutic exercises and IASTM/cupping. Frequency and duration: 2 time(s) a week, for 4 weeks, for 8 visits. Potential to achieve rehab goals is fair: multiple areas of complaint Continue with left shoulder ROM and LE ther-ex to decrease pain, improve sleeping and lifting. Progress with POC, as tolerated. Assessment Patient reports feeling confusion. Thinks its from her thyroid medication. Recommend that patient contact MD. Patient tolerated treatment without increased pain but reports tightness in hamstrings/piriformis area. Educated patient in supine and seated ther-ex for piriformis and hamstring stretches due [place]. Continue with left shoulder ROM, LE stretches to decrease pain and improve mobility to decrease fall risk. Adult Risk Screening There are no spiritual/cultural practices/values/needs that are important to know Initial Fall Risk Screening: BHARTI has not fallen in the last 6 months. BHARTI does not have a fear of falling. She does not need assistance with sitting, standing or walking. Does not need assistance walking in her home. She does not need assistance in an unfamiliar setting. The patient is not using an assistive device. Please identify location of pain: LB=6/10; L shldr=8/10; R hip=10/10. Living Will. Living Will: Living will on file. Patient Declined. Healthcare POA: Health care proxy on file. Patient Declined. Declaration of Mental Health Treatment: No mental health treatment on file. Patient Declined. Insurance Insurance reviewed Visit number: 5 [employer] Evaluating therapist Aleln Plaza PT. M75.42; M25.512; M54.50; M25.551 Subjective Patient reports:. Patient reports falling over the weekend and has bruising on right forearm and states 5/10 pain across chest from working. Patient reports heel lift issue has been resolved. Precautions: Fall Risk: none Pertinent medical HX includes: angina//stents placed; headaches; OA. Treatment Time in clinic started at 5:00 pm Time in clinic ended at 5:45 pm Total time in clinic is 45 minutes. Total timed code time is 40 minutes. Therapeutic exercise (39800): timed minutes 35, units 3 . L shldr UBE 2x2' Lv1 Standing rows w/pink Tband 2x10 Standing ER w/purple Tband 2x10 Standing IR w/pink Tband 2x10 chest press 2x10 teal Pulleys x 3' trunk ROM/R hip PRE: partial bridge 2x10 hooklying clamshell 2x10 tammy pirif stretch 30 ea LTR x10 SLR x 3 w/15 hold B N Hamstring stretch w/15 hold B N heel lift trial, (attempted) X . Manual Therapy (58198): timed minutes 5, units 0 . PROM L shldr all dir. Other CPT Codes:. NOT TODAY trial heel lift fitting. Self Care Management Training (00827) . Provided today:. HEP handout; Tband. 'Scores and Scales' Signatures Electronically signed by : Stephie Mancini, SENIOR APPLICATION PROGRAMMER; Jan 23 2023 5:40PM EST (Author) Electronically signed by : Inderjit Plaza, PT; Jan 23 2023 5:57PM EST [facility] Progress Noteon 3 PT Progress Note Therapy Diagnosis Assessed Pain in right hip (719.45) (M25.551) Low back pain (724.2) (M54.50) Left shoulder pain (719.41) (M25.512) Impingement syndrome of left shoulder (726.2) (M75.42) Plan Goals: Goals set and discussed today. 1. Independent HEP to allow for 50% reduction in max ADL C/C sx ( 6/10-LB; 8/10-L shldr; 10/10-R hip) 2-3wks 2. 0/10 night time sx to allow for uninterrupted sleep x1wk ( 7/-shldr) 2-3wks 3. Survey score improvement from 34% to 25% (QDI) 3-4wks 4. Survey score improvement from 38% to 30% (SEGUNDO) 3-4wks 5. Survey score improvement from 48/80 to 55/80 (LEFS) 3-4wks 6. ROM increase to allow for improved ADL (dressing lowers from 60% to 75% SFB) 3-4wks 7. ROM increase to allow for improved ADL reaching, dressing uppers (from 90 to 110 active L shldr elevation) 3-4wks 8. Strength increase to allow for improved ADL car transfers, STS (from gr4+ to gr5 R hip strength) 3-4wks 9. Strength increase to allow for improved ADL object handling (from gr4-/4 L shldr abd/IR to gr4+) 3-4wks Planned interventions include: aquatic therapy, cryotherapy, dry needling, education/instruction, home program, hot pack, kinesiotaping, manual therapy, self care/home management, therapeutic exercises and IASTM/cupping. Frequency and duration: 2 time(s) a week, for 4 weeks, for 8 visits. Potential to achieve rehab goals is fair: multiple areas of complaint Continue with left shoulder ROM to improve sleep, ADL and work activity. Progress with POC, as tolerated. Assessment this patient fell since last visit-she took a tumble when her foot slipped on a hill in her yard; mild R>L leg length today (evaluation notation was corrected today); added to HEP and given handouts; no C/O rib nor R elbow pain with todays session except for R rib discomfort with pulleys (advised to reduce RUE elevation). Adult Risk Screening There are no spiritual/cultural practices/values/needs that are important to know Initial Fall Risk Screening: BHARTI has not fallen in the last 6 months. BHARTI does not have a fear of falling. She does not need assistance with sitting, standing or walking. Does not need assistance walking in her home. She does not need assistance in an unfamiliar setting. The patient is not using an assistive device. Please identify location of pain: LB=6/10; L shldr=8/10; R hip=10/10. Living Will. Living Will: Living will on file. Patient Declined. Healthcare POA: Health care proxy on file. Patient Declined. Declaration of Mental Health Treatment: No mental health treatment on file. Patient Declined. Insurance Insurance reviewed Visit number: 4 [employer] Evaluating therapist Allen Plaza PT. M75.42; M25.512; M54.50; M25.776 Subjective Patient reports:. I fell at home in my yard and I have a bruised R elbow and my R ribs are sore. I did not go to the ED or anything. Precautions: Fall Risk: none Pertinent medical HX includes: angina//stents placed; headaches; OA. Treatment Time in clinic started at 5:12 pm Time in clinic ended at 5:56 pm Total time in clinic is 44 minutes. Total timed code time is 43 minutes. Therapeutic exercise (08416): timed minutes 38, units 3 . L shldr UBE 2x2' Lv1 Standing rows w/pink Tband 2x10 Standing ER w/purple Tband 2x10 Standing IR w/pink Tband 2x10 chest press 2x10 teal N Pulleys x 3' trunk ROM/R hip PRE: partial bridge 2x10 N hooklying clamshell 2x10 tammy N pirif stretch 30 ea N LTR x10 heel lift trial, (attempted) X . Manual Therapy (46269): timed minutes 5, units 0 . PROM L shldr all dir. Other CPT Codes:. NOT TODAY trial heel lift fitting. Self Care Management Training (13347) . Provided today:. HEP handout; Tband. 'Scores and Scales' Signatures Electronically signed by : Inderjit Plaza, PT; Jan 20 2023 6:03PM EST (Author) [facility] Progress Noteon 3 PT Progress Note Therapy Diagnosis Assessed Left shoulder pain (719.41) (M25.512) Pain in right hip (719.45) (M25.551) Low back pain (724.2) (M54.50) Impingement syndrome of left shoulder (726.2) (M75.42) Plan Goals: Goals set and discussed today. 1. Independent HEP to allow for 50% reduction in max ADL C/C sx ( 6/10-LB; 8/10-L shldr; 10/10-R hip) 2-3wks 2. 0/10 night time sx to allow for uninterrupted sleep x1wk ( 7/7-shldr) 2-3wks 3. Survey score improvement from 34% to 25% (QDI) 3-4wks 4. Survey score improvement from 38% to 30% (SEGUNDO) 3-4wks 5. Survey score improvement from 48/80 to 55/80 (LEFS) 3-4wks 6. ROM increase to allow for improved ADL (dressing lowers from 60% to 75% SFB) 3-4wks 7. ROM increase to allow for improved ADL reaching, dressing uppers (from 90 to 110 active L shldr elevation) 3-4wks 8. Strength increase to allow for improved ADL car transfers, STS (from gr4+ to gr5 R hip strength) 3-4wks 9. Strength increase to allow for improved ADL object handling (from gr4-/4 L shldr abd/IR to gr4+) 3-4wks Planned interventions include: aquatic therapy, cryotherapy, dry needling, education/instruction, home program, hot pack, kinesiotaping, manual therapy, self care/home management, therapeutic exercises and IASTM/cupping. Frequency and duration: 2 time(s) a week, for 4 weeks, for 8 visits. Potential to achieve rehab goals is fair: multiple areas of complaint Continue with left shoulder ROM to improve sleep, ADL and work activity. Progress with POC, as tolerated. Assessment Patient tolerated treatment without increased pain. Patient with crepites with PROM in left shoulder. Patient reports working 35 hrs a week and tolerated it, but feels very sore post work. Continue with stretches/ROM to improve mobility, improve ADL to decrease pain. Adult Risk Screening There are no spiritual/cultural practices/values/needs that are important to know Initial Fall Risk Screening: BHARTI has not fallen in the last 6 months. BHARTI does not have a fear of falling. She does not need assistance with sitting, standing or walking. Does not need assistance walking in her home. She does not need assistance in an unfamiliar setting. The patient is not using an assistive device. Please identify location of pain: LB=6/10; L shldr=8/10; R hip=10/10. Living Will. Living Will: Living will on file. Patient Declined. Healthcare POA: Health care proxy on file. Patient Declined. Declaration of Mental Health Treatment: No mental health treatment on file. Patient Declined. Insurance Insurance reviewed Visit number: 3 [employer] Evaluating therapist Allen Plaza PT. M75.42; M25.512; M54.50; M25.501 Subjective Patient reports:. Patient reports no falls and no to all covid questions. Patient reports pain of 4/10 in left region region. Precautions: Fall Risk: none Pertinent medical HX includes: angina//stents placed; headaches; OA. Treatment Time in clinic started at 5:00 pm Time in clinic ended at 5:45 pm Total time in clinic is 45 minutes. Total timed code time is 39 minutes. Therapeutic exercise (05534): timed minutes 25 . UBE 2x2' Lv1 Standing rows w/pink Tband 2x10 Standing ER w/pink Tband 2x10 Standing IR w/pink Tband 2x10 Pulleys x 3' trunk ROM LTR x10 N L shldr motion/ PRE as alicia. stdg row 2x10 stdg ER/IR purple tub 2x10 L N adonay scaption 3' N heel lift trial, (attempted) X R hip PRE, -A (deferred on 01/13/23 due to injection< 24hrs previous). Manual Therapy (17170): timed minutes 14, units 0 . PROM L shldr all dir. Other CPT Codes: timed minutes 11, units 1 . trial heel lift fitting. Self Care Management Training (61984) . 'Scores and Scales' Signatures Electronically signed by : Stephie Mancini SENIOR APPLICATION PROGRAMMER; Jan 16 2023 5:46PM EST (Author) Electronically signed by : Inderjit Plaza, PT; Jan 17 2023 9:18AM EST [facility] Progress Noteon 3 PT Progress Note Therapy Diagnosis Assessed Impingement syndrome of left shoulder (726.2) (M75.42) Left shoulder pain (719.41) (M25.512) Low back pain (724.2) (M54.50) Pain in right hip (719.45) (M25.551) Plan Goals: Goals set and discussed today. 1. Independent HEP to allow for 50% reduction in max ADL C/C sx ( 6/10-LB; 8/10-L shldr; 10/10-R hip) 2-3wks 2. 0/10 night time sx to allow for uninterrupted sleep x1wk ( 7/7-shldr) 2-3wks 3. Survey score improvement from 34% to 25% (QDI) 3-4wks 4. Survey score improvement from 38% to 30% (SEGUNDO) 3-4wks 5. Survey score improvement from 48/80 to 55/80 (LEFS) 3-4wks 6. ROM increase to allow for improved ADL (dressing lowers from 60% to 75% SFB) 3-4wks 7. ROM increase to allow for improved ADL reaching, dressing uppers (from 90 to 110 active L shldr elevation) 3-4wks 8. Strength increase to allow for improved ADL car transfers, STS (from gr4+ to gr5 R hip strength) 3-4wks 9. Strength increase to allow for improved ADL object handling (from gr4-/4 L shldr abd/IR to gr4+) 3-4wks Planned interventions include: aquatic therapy, cryotherapy, dry needling, education/instruction, home program, hot pack, kinesiotaping, manual therapy, self care/home management, therapeutic exercises and IASTM/cupping. Frequency and duration: 2 time(s) a week, for 4 weeks, for 8 visits. Potential to achieve rehab goals is fair: multiple areas of complaint continue with R hip PRE; L shldr motion/PRE and lumbar ROM as alicia. Assessment Patient identity confirmed today with name/. added to HEP today (held R hip PRE due to recent R hip injection); mild L shldr discomfort with passive flexion endrange; did not give L heel lift due to IC height most even with a lift even though there was an apparent leg length diff in supine (plan to recheck leg length again next visit. IE done on 01/09/23 This patient presents with L shldr, R hip and lumbar complaints all of insidious onset (as far back as 08/11/22). She states that at least films have been taken of her LB and L shldr. A lumbar MRI is pending. Physical findings include limited trunk ROM, L>R leg length, L>R hip weakness (C/O R hip pain), and limited/painful L shldr motion with weakness. PT will continue with R hip PRE, trunk ROM, heel lift trial,, and L shldr motion and PRE as alicia. Clinical Presentation: Stable and/or uncomplicated characteristics. Level of Complexity: low Problem List: activity limitations, ADLs/IADLs/self care skills, decreased functional level, decreased knowledge of HEP, decreased knowledge of precautions, pain, range of motion/joint mobility, strength and transfers. Adult Risk Screening There are no spiritual/cultural practices/values/needs that are important to know Initial Fall Risk Screening: BHARTI has not fallen in the last 6 months. BHARTI does not have a fear of falling. She does not need assistance with sitting, standing or walking. Does not need assistance walking in her home. She does not need assistance in an unfamiliar setting. The patient is not using an assistive device. Please identify location of pain: LB=6/10; L shldr=8/10; R hip=10/10. Living Will. Living Will: Living will on file. Patient Declined. Healthcare POA: Health care proxy on file. Patient Declined. Declaration of Mental Health Treatment: No mental health treatment on file. Patient Declined. Insurance Insurance reviewed Visit number: 2 [employer] Evaluating therapist Allen Plaza PT. M75.42; M25.512; M54.50; M25.551 Subjective Patient reports:. No pain at the L shldr only a numbing type feeling. 3/10 LB; 5/10 R hip pain right now. Precautions: Fall Risk: none Pertinent medical HX includes: angina//stents placed; headaches; OA. Treatment Time in clinic started at 3:48 pm Time in clinic ended at 4:30 pm Total time in clinic is 42 minutes. Total timed code time is 40 minutes. Therapeutic exercise (51901): timed minutes 25 . UBE 2x2' Lv1 N trunk ROM LTR x10 N L shldr motion/ PRE as alicia. stdg row 2x10 stdg ER/IR purple tub 2x10 L N adonay scaption 3' N heel lift trial, (attempted) X R hip PRE, -A (deferred on 01/13/23 due to injection< 24hrs previous). Manual Therapy (97348): timed minutes 4, units 0 . PROM L shldr all dir. Other CPT Codes: timed minutes 11, units 1 . trial heel lift fitting. Self Care Management Training (26840) . 'Scores and Scales' Signatures Electronically signed by : Inderjit Plaza, PT; Jan 13 2023 4:57PM EST (Author) Normal [facility] Initial Evaluationon 05-0 PT Initial Evaluation Therapy Diagnosis Assessed Pain in right hip (719.45) (M25.551) Low back pain (724.2) (M54.50) Impingement syndrome of left shoulder (726.2) (M75.42) Left shoulder pain (719.41) (M25.512) Plan of Care Goals: Goals set and discussed today. 1. Independent HEP to allow for 50% reduction in max ADL C/C sx ( 6/10-LB; 8/10-L shldr; 10-R hip) 2-3wks 2. 0/10 night time sx to allow for uninterrupted sleep x1wk ( 03/17-shldr) 2-3wks 3. Survey score improvement from 34% to 25% (QDI) 3-4wks 4. Survey score improvement from 38% to 30% (SEGNUDO) 3-4wks 5. Survey score improvement from 48/80 to 55/80 (LEFS) 3-4wks 6. ROM increase to allow for improved ADL (dressing lowers from 60% to 75% SFB) 3-4wks 7. ROM increase to allow for improved ADL reaching, dressing uppers (from 90 to 110 active L shldr elevation) 3-4wks 8. Strength increase to allow for improved ADL car transfers, STS (from gr4+ to gr5 R hip strength) 3-4wks 9. Strength increase to allow for improved ADL object handling (from gr4-/4 L shldr abd/IR to gr4+) 3-4wks Planned interventions include: aquatic therapy, cryotherapy, dry needling, education/instruction, home program, hot pack, kinesiotaping, manual therapy, self care/home management, therapeutic exercises and IASTM/cupping. Frequency and duration: 2 time(s) a week, for 4 weeks, for 8 visits. Potential to achieve rehab goals is fair: multiple areas of complaint Plan of care was developed with input and agreement by the patient. Assessment This patient presents with L shldr, R hip and lumbar complaints all of insidious onset (as far back as 08/11/22). She states that at least films have been taken of her LB and L shldr. A lumbar MRI is pending. Physical findings include limited trunk ROM, R>L leg length, L>R hip weakness (C/O R hip pain), and limited/painful L shldr motion with weakness. PT will continue with R hip PRE, trunk ROM, heel lift trial,, and L shldr motion and PRE as alicia. Clinical Presentation: Stable and/or uncomplicated characteristics. Level of Complexity: low Problem List: activity limitations, ADLs/IADLs/self care skills, decreased functional level, decreased knowledge of HEP, decreased knowledge of precautions, pain, range of motion/joint mobility, strength and transfers. Reason For Visit Initial Evaluation . L shldr pain/impingement; LBP; R hi pain. Referred by: Dr Khalil Adult Risk Screening There are no spiritual/cultural practices/values/needs that are important to know Initial Fall Risk Screening: BHARTI has not fallen in the last 6 months. BHARTI does not have a fear of falling. She does not need assistance with sitting, standing or walking. Does not need assistance walking in her home. She does not need assistance in an unfamiliar setting. The patient is not using an assistive device. Please identify location of pain: LB=02/18; L shldr=04/20; R hip=06/20. Living Will. Living Will: Living will on file. Patient Declined. Healthcare POA: Health care proxy on file. Patient Declined. Declaration of Mental Health Treatment: No mental health treatment on file. Patient Declined. Insurance Insurance reviewed Visit number: 1 [employer] Evaluating therapist Allen Plaza PT. M75.42; M25.512; M54.50; M25.551 Subjective Current Episode of Functional Impairment and/or Pain Date of onset: 08/11/22 Mechanism of Injury: insidious onset . Medical Screening: Reviewed medical history form with patient and medical screening assessed. Current Medical Management:. PT here; L shldr injection; L shldr films/MRI done. Precautions: Fall Risk: none Pertinent medical HX includes: angina//stents placed; headaches; OA. Functional Assessment Prior level of function: PAINFUL, DIFFICULT, OR ALTERED ADL (marked with an xx) sleep--XX sitting-- sit to standing transfers--XX car transfers--XX standing-- walking-- carrying-- stairs-- dressing lowers--XX driving-- dressing uppers--XX reaching----XX handling objects--XX other-- . Patient stated goal(s) for treatment include: relieving pain , increasing strength , increasing mobility , reducing symptoms , reducing/preventing future occurrences and learning preventative care measures . 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 Patient Awareness: Patient is aware of her diagnosis and prognosis. Personal Factors That May Impact Care:. ID confirmed with B-day; speaks zimbabwean No obtrusive barriers to learning identified/observed. Objective Ortho Observation Palpation: superior L ASIS in stdg L>R leg length even ASIS in supine. ROM / Joint Mobility (Range of Motion in degrees) Shoulder: (Parson: P! Denotes Pain with Movement, * Indicates [place] Resistant Otherwise Measurements are in Supine) Flexion: R Active 110, L Active 90. Lumbar: (Parson = P! Denotes Pain with Movement) Extension: Active 75%. Flexion: Active 60%. Side Bend: R Active 60%, L Active 40%. RSB was most symptomatic to th (more content not included)... Normal [facility] Initial Evaluationon 11-11 PT Initial Evaluation Therapy Diagnosis Assessed Left shoulder pain (719.41) (M25.512) Pain in right hip (719.45) (M25.551) Impingement syndrome of left shoulder (726.2) (M75.42) Plan of Care Planned interventions include: education/instruction, home program, kinesiotaping, manual therapy, self care/home management, therapeutic activities, therapeutic exercises and iastm/cupping. Frequency and duration:. 1x reassessment in 2-3 weeks to address remaining impairments and additional order; patient traveling the next two weeks. Potential to achieve rehab goals is fair: Plan of care was developed with input and agreement by the patient. Assessment Bharti Akbar, a 77 year old female arrives to outpatient PT c/o L shoulder and R hip pain. Pt presents with the following impairments: L shoulder and R hip pain, deficits in L shoulder AROM, deficits in B GH joint and periscapular musculature strength, deficits in B hip and knee musculature strength, and deficits in functional mobility per QDASH score. These impairments contribute to difficulty in activity limitations and participation restrictions including lifting, reaching, sleeping, stair climbing, ambulation, standing, and performing home and work duties. Due to increased paperwork time, patient will benefit from reassessment next session in order to finish evaluation and to add impairments from additional order of low back pain to current POC and for further treatment interventions. Patient also is traveling the next few weeks so POC will begin after vacation in 2-3 weeks. The pt has a fair prognosis when considering positive factors including motivation to complete PT interventions with barriers such as chronicity of pain. Pain at 4/10 at end of session The pt verbalized understanding and agreement to goals and POC. Thank you for this referral and please call [phone] with any questions or concerns. Clinical Presentation: Stable and/or uncomplicated characteristics. Level of Complexity: low Reason For Visit Initial Evaluation . L shoulder pain and R hip pain. Referred by: Frank Langley PA-C Adult Risk Screening There are no spiritual/cultural practices/values/needs that are important to know Initial Fall Risk Screening: BHARTI has fallen in the last 6 months. She has fallen due to 2x when attempting to exit a tub. Her fall resulted in the following injury: bruising. BHARTI does not have a fear of falling. She does not need assistance with sitting, standing or walking. Does not need assistance walking in her home. She does not need assistance in an unfamiliar setting. The patient is not using an assistive device. Fall Risk Screening: Patient is identified as a fall risk. Care Plan: Moderate Risk: Low risk interventions plus: do not leave patient on exam table unattended, supervised activity, educate patient/family on falls prevention, review safety initiatives with patient/family, family at bedside as allowed, yellow falls risk band, focus rounding attention, locate patient in area of high visibility, wheelchair, bed, or personal alarm, bedside commode, elevated toilet seat and pharmacy consult for medication concerns. Moderate: unsteady gait/ use of assistive device/apparent weakness or functionally challenged. Pain Scale: On a scale of 0 to 10, the patient rates the pain at 5. Please identify location of pain: L shoulder, R hip. Pain Quality: aching. The pain makes it hard for the patient to do these things: walking, work and house work. Living Will. Living Will: Living will on file. Healthcare POA: Health care proxy on file. Declaration of Mental Health Treatment: No mental health treatment on file. Domestic Violence Screen: Does not feel threatened or abused physically, emotionally or sexually. Do you feel UNSAFE? The patient feels safe in the home. Depression/Suicide Screening: During the past 2 weeks, the patient has not felt down, depressed or hopeless. During the past 2 weeks, the patient has not felt little interest or pleasure in doing things. Insurance Insurance reviewed Visit number: 1 Authorization not required after evaluation Insurance: [place] Secondary Insurance: Medicare Evaluating therapist: Kat Bullock, PT, DPT PT dx: M25.512, M25.551 Med dx: M75.42 Onset Date: 2022 Subjective Mechanism of Injury:. Patient confirmed name and date of this session. Patient reports pain starting in 2019 after having the COVID vaccination and required stent placement. Had 6 hospitalizations in 2020 with multiple transfusions. R hand dominant. Also reports pain of R hip and it has been so bad that it has knocked her down 4x. When she followed-up with referring provider, who reported it may be her back. Currently performs scapular retractions and shoulder shurgs. Patient works 35 hours at [employer] where she has to lift and carry which she can have help but does have to climb up/down ladder which irritates ladder. Overhead reaching is most painful. Pain is in (more content not included)... [facility] Absolute lymphocyte countOrd ered By: Nohelia Angel on 12-07-2022 Lymphocytes Auto (Unsp spec) [#/Vol] 1.03 10*3/uL 0.83-4.51 [facility] Basophil percentageOrdered B y: Nohelia Angel on 12-07-2022 Basophils/100 WBC (Bld) 0.4 % 0-1 [facility] Chloride [Moles/Vol] 108 mmol/L 98-107 [facility] Eosinophils/100 WBC (Bld) 2.5 % 0-5 [facility] Glucose [Mass/Vol] 90 mg/dL 74-106 [facility] Neutrophils (Bld) [#/Vol] 3.1 10*3/uL 2.0-7.7 [facility] Neutrophils/100 WBC (Bld) 64.5 % 47-70 [facility] Potassium [Moles/Vol] 3.9 mmol/L 3.5-5.1 [facility] Sodium [Moles/Vol] 141 mmol/L 136-145 [facility] WBC (Bld) [#/Vol] 4.7 10*3/uL 4.4-11.0 [facility] Blood erythrocytes count (nu mber/volume)Ordered By: Nohelia Angel on 12-07-2022 RBC (Bld) [#/Vol] 4.74 10*6/uL 4.2-5.4 [facility] Blood hemoglobin measurement (mass/volume)Ordered By: Nohelia Angel on 12-07-2022 Hemoglobin (Bld) [Mass/Vol] 14.5 g/dL 12.0-15.0 [facility] Blood lymphocytes/100 leukoc ytesOrdered By: Nohelia Angel on 12-07-2022 Lymphocytes/100 WBC (Bld) 21.8 % 19-41 [facility] Blood monocytes/100 leukocyt esOrdered By: Nohelia Angel on 12-07-2022 Monocytes/100 WBC (Bld) 10.6 % 0-10 [facility] Blood platelet mean volumeOr dered By: Nohelia Angel on 12-07-2022 Platelet mean volume (Bld) [Entitic vol] 8.3 fL 6.2-12.0 [facility] Determination of erythrocyte mean corpuscular volume (MCV)Ordered By: Nohelia Angel on 12-07-2022 MCV (RBC) [Entitic vol] 89.9 fL 81-99 [facility] Hematocrit Auto (Bld) [Volum e fraction]Ordered By: Nohelia Angel on 12-07-2022 Hematocrit (Bld) [Volume fraction] 42.6 % 37-47 [facility] Laboratory - Chemistry and C hemistry - challengeOrdered By: Nohelia Angel on 12-07-2022 CO2 [Moles/Vol] 30.0 mmol/L 21.0-32.0 [facility] Free T4 [Mass/Vol] 1.06 ng/dL 0.76-1.46 [facility] Natriuretic peptide B (Bld) [Mass/Vol] 102.1 pg/mL 0-100 [facility] Urea nitrogen/Creatinine [Mass ratio] 19.5 mg/mg 10-20 [facility] Laboratory - Hematology and Cell countsOrdered By: Nohelia Angel on 12-07-2022 Erythrocyte distribution width (RBC) [Entitic vol] 41.6 fL 35.1-43.9 [facility] Erythrocyte distribution width (RBC) [Ratio] 12.5 % 11.6-14.6 [facility] Immature granulocytes/100 WBC (Bld) 0.200 % 0.0-0.9 [facility] Comment on above: IG% - Immature Granu locytes (promyelocytes, myelocytes and metamyelocytes) > 1% indicates that a LEFT SHIFT is Present. MCH (RBC) [Entitic mass] 30.6 pg 27.0-32.0 [facility] Nucleated RBC/100 WBC (Bld) [Ratio] 0 % 0-5 [facility] MCHC Auto (RBC) [Mass/Vol]Or dered By: Nohelia Angel on 12-07-2022 MCHC (RBC) [Mass/Vol] 34.0 g/dL 32-36 [facility] No Panel InformationOrdered By: Nohelia Angel on 12-07-2022 Estimated GFR (MDRD) Amer 87 mL/min >60 [facility] Comment on above: GFR Calc Estimated GFR (MDRD) Non-Af Amer 72 mL/min >60 [facility] Comment on above: Non- GFR Calc Free Triiodothyronine (T3) pg/dL 2.0 pg/mL 2.18-3.98 [facility] Thyroid Stimulating Hormone (TSH) 2.50 uIU/mL 0.358-3.74 [facility] Platelets bldOrdered By: Kvng Angel on 12-07-2022 Platelets (Bld) [#/Vol] 231 10*3/uL 150-450 [facility] Serum or plasma calcium santiago urement (mass/volume)Ordered By: Nohelia Angel on 12-07-2022 Calcium [Mass/Vol] 8.9 mg/dL 8.5-10.1 [facility] Serum or plasma creatinine m easurement (mass/volume)Ordered By: Nohelia Angel on 12-07-2022 Creatinine [Mass/Vol] 0.82 mg/dL 0.55-1.02 [facility] Comment on above: The validity of the calculated GFR & GFRAA in patients over 70 years has not been determined. Clinical correlation is essential. Serum or plasma urea nitroge n measurement (mass/volume)Ordered By: Nohelia Angel on 12-07-2022 Urea nitrogen [Mass/Vol] 16 mg/dL 7-18 [facility] Thin prep Papanicolaou smear with manual screeningOrdered By: Nohelia Angel on 12-07-2022 Thin prep Papanicolaou smear with manual screening 3 5-15 [facility] PT Initial Evaluationon 11-10 PT Initial Evaluation No report was sent Normal [facility] Therapy Communicationon 11-10 Therapy Communication Message BHARTI AKBAR no showed today . Signatures Electronically signed by : Bibiana Artis, PT; Nov 30 2022 10:24AM EST (Author) [facility] Therapy Communicationon 09-12 Therapy Communication Message BHARTI AKBAR no showed today . 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 Keep your Botox journal. You may develop side effects from the Botox injection. These may include breathiness with soft whispered voice quality, difficulty swallowing with choking on liquids, or feelings of mild shortness of breath. If swallowing problems occur, use a chin tuck with any liquids or try thickening your liquids to a smoothie consistency. These side effects are typically mild and resolved within the first 7-10 days. 2. Follow up in 3-[address] Warren?s clinic. We are here to assist you through your ENT care at [facility]. Dr. Warren is an ENT surgeon who specializes in voice, airway and swallowing issues. This means that she specializes in taking care of patients with complex voice, airway and swallowing problems. Dr. Warren's office number is [phone]. Please use this number to contact her and her care team regardless of which office you use to access care. This number is the most direct way to communicate with all the members of the care team. Dr. Warren?s software integration developer answers the office phone from 9am-4pm Mon-Fri. Call [phone] and push 2. She can help you with scheduling of appointments, general questions and information. You may need to leave a message if she is helping another patient. In this case, someone from the team will call you back the same day if you leave your message before 3pm, or the next business morning. Dr. Warren?s nurse and can be reached by calling [phone]. We make every effort to return phone calls the same day. If you are in need of urgent assistance after hours, please call [phone] and ask for ENT cash applications manager. Dr. Warren works closely with speech therapists as they work together to help solve your issues with speech and swallowing. You may see a speech therapist during your appointment if Dr. Warren feels this is needed. If you need to reach speech therapy to talk with a therapist or to schedule an appointment, please call [phone]. Others who may be included in your care are dieticians, social workers, audiologists, neurologists, and physical therapists. Dr. Warren will provide these referrals as needed. Please let her know if you would like to request a specific referral. For your convenience, Dr. Warren sees patients at different [facility] locations including the [facility] at [facility], and [facility] at the [facility]. While we try to make your appointments as convenient as possible, occasionally a visit to another location may be necessary to provide the best care for you. Dr. Warren makes every effort to run on time for your appointments. Therefore, if you are more than 30 minutes late unrelated to a scan or another appointment such therapy or audiology, your appointment will need to be rescheduled to another day. We appreciate your understanding. We look forward to working with you to meet your healthcare goals. By signing my name below, I, Varghese Colbert, attest that this documentation has been prepared under the direction and in the presence of Dr. Ludmila Warren MD. All medical record entries made by the Scribbhupinder were at my direction and personally dictated by me. I have reviewed the chart and agree that the record accurately reflects my personal performance of the history, physical exam, discussion and plan. Chief Complaint Voice History of Present Kaitlynn AKBAR is a 76 year female referred to me by Dr. 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 She received the JJCOVID vaccine and had adverse effects - perhaps some worsening of her voice at this time. Interval History (06/2022): She is here for a botx No swallowing, breathing, laryngospasm, fever, chills, nausea or vomiting. ROS performed. All other systems are reviewed and are negative for complaint except as noted in HPI. 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) Hoarseness of voice (784.42) (R49.0) Social History Non-smoker (V49.89) (Z78.9) Allergies No Known Drug Allergies Recorded By: Ivana Mulligan; 07/11/2022 1:42:43 PM Current Meds Medication NameInstruction Atorvastatin Calcium 40 MG Oral Tablet Azithromycin 250 MG Oral TabletTAKE 2 TABLETS BY MOUTH ON DAY 1, AND THEN TAKE 1 TABLET BY MOUTH ONCE A DAY ON DAY 2 THROUGH DAY 5 Bisacodyl EC 5 MG Oral Tablet Delayed Release Clopidogrel Bisulfate 75 MG Oral TabletTAKE 1 TABLET BY MOUTH ONCE DAILY FOR HEART Colestipol HCl - 1 GM Oral TabletTAKE 1 TABLET BY MOUTH ONCE DAILY Diclofenac Sodium 1 % External GelAPPLY 2 GRAMS TOPICALLY TO AFFECTED AREA 4 TIMES DAILY Diclofenac Sodium 1 % External GelAPPLY 2 GRAMS TOPICALLY TO AFFECTED AREA 4 TIMES DAILY Diphenoxylate-Atropine 2.5-0.025 MG Oral Tablet Diphenoxylate-Atropine 2. (more content not included)... Normal [place] Tobacco Screening.on 023 Adult depression screening assessment No -Otolaryn go [facility] 4100 Work Phone: Fall risk assessment a) No falls within the last year -Otolaryngo [facility] 4100 Work Phone: Tobacco use status CPHS b) No -Otolaryngo [facility] 4100 Work Phone: Interpretation of Borrelia b urgdorferi antibody assayOrdered By: Dr. Thomas on 09-14-2022 B. burgdorferi Ab (S) [Interp] REF LAB [facility] Thin prep Papanicolaou smear with manual screeningOrdered By: Dr. Thomas on 09-14-2022 Thin prep Papanicolaou smear with manual screening Negative Negative [facility] Comment on above: Lyme antibodies not detected. Reflex testing is notindicated.No laboratory evidence of infection with B. burgdorferi(Lyme disease). Negative results may occur in patientsrecently infected (less than or equal to 14 days) with B.burgdorferi. 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 You will be scheduled for a Botox injection. We reviewed the risks and benefits of botox injection to include but not be limited to bleeding, bruising, vocal cord swelling with change in breathing, temporary change in voice with breathiness/whispered quality, difficulty swallowing which may require temporary dietary modification, the temporary nature of the injectable and need for repeat injections as well as variability between injections. Their questions are answered and they consent to proceed. 2. You need speech therapy as part of your treatment. We will help you to schedule your speech appointment after your visit or you can call Speech Therapy Scheduling at [phone]. Please follow up pending the outcome of speech therapy. Welcome to Dr. Warren?s clinic. We are here to assist you through your ENT care at [facility]. Dr. Warren is an ENT surgeon who specializes in voice, airway and swallowing issues. This means that she specializes in taking care of patients with complex voice, airway and swallowing problems. Dr. Warren's office number is [phone]. Please use this number to contact her and her care team regardless of which office you use to access care. This number is the most direct way to communicate with all the members of the care team. Dr. Warren?s software integration developer answers the office phone from 9am-4pm Mon-Mon. Call [phone] and push 2. She can help you with scheduling of appointments, general questions and information. You may need to leave a message if she is helping another patient. In this case, someone from the team will call you back the same day if you leave your message before 3pm, or the next business morning. Dr. Warren?s nurse and can be reached by calling [phone]. We make every effort to return phone calls the same day. If you are in need of urgent assistance after hours, please call [phone] and ask for ENT cash applications manager. Dr. Warren works closely with speech therapists as they work together to help solve your issues with speech and swallowing. You may see a speech therapist during your appointment if Dr. Warren feels this is needed. If you need to reach speech therapy to talk with a therapist or to schedule an appointment, please call [phone]. Others who may be included in your care are dieticians, social workers, audiologists, neurologists, and physical therapists. Dr. Warren will provide these referrals as needed. Please let her know if you would like to request a specific referral. For your convenience, Dr. Warren sees patients at different [facility] locations including the [facility] at [facility], and [facility] at the main campus of [facility]. While we try to make your appointments as convenient as possible, occasionally a visit to another location may be necessary to provide the best care for you. Dr. Warren makes every effort to run on time for your appointments. Therefore, if you are more than 30 minutes late unrelated to a scan or another appointment such therapy or audiology, your appointment will need to be rescheduled to another day. We appreciate your understanding. We look forward to working with you to meet your healthcare goals. By signing my name below, I, Varghese Colbert, attest that this documentation has been prepared under the direction and in the presence of Dr. Ludmila Warren MD. All medical record entries made by the Allieibe were at my direction and personally dictated by me. I have reviewed the chart and agree that the record accurately reflects my personal performance of the history, physical exam, discussion and plan. 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 We discussed the etiology and treatment options ranging from no treatment to botox injection. She would like to proceed with botox injection with which i agree. Exacerbating factors include Treatment options discussed including : 1. Botox injections and speech therapy to rebalance the vocal cords. We will consider 0.5-0.75 U into the LCAs. If she is not able to get to the clinic for Botox injections, the patient is assured that her voice will relatively remain stable and will be worsened based on fatigue. The patient?s questions were answered. Chief Complaint Voice History of Present Kaitlynn AKBAR is a 76 year female referred to me today by Dr. 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 She received the JJCOVID vaccine and had adverse effects (more content not included)... 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 Short term goals: Ongoing assessment of voice impairment severity to determine Botox management plan. Patient will demonstrate independent use of voice/swallow/breathing techniques x 80% accuracy. Patient/family understands and agrees with goals/plan. Potential for improvement: good with Botox treatment and therapy Factors affecting prognosis: none Discussed plan of care with: patient and physician Discussed risks/benefits with patient/caregiver. Patient/caregiver agreeable with plan of care. Plan of care was developed with input and agreement by the patient. Assessment Voice assessment: Patient presents with dysphonia 2/2 a diagnosis of adductor spasmodic dysphonia with tremor. Patient appears to be an excellent candidate for Botox treatment and therapy which will target ongoing diagnostic therapy to help direct Botox treatments for for voice rebalancing as needed 2/2 significant MTD. Patient stated she would like to think about it 2/2 long travel demand. Suggested we start with a virtual speech therapy to discuss further and initiate voice retraining. Patient to call to schedule per her request. Voice quality based on the GRBAS scale: 0=absent; 1=mild; 2=moderate; 3=severe Grade: 2 Roughness: 2 Breathiness: 0 Asthenia: 0 Strain: 2 Contributing Factors: supraglottic compression , decreased neuromuscular control of speech/swallow muscles and habitual behaviors that misuse/abuse the voice NOMS Score: moderate: level 4 Treatment recommendations: treatment indicated (see goals below) Adult Risk Screening There are no spiritual/cultural practices/values/needs that are important to know Initial Fall Risk Screening: BHARTI has not fallen in the last 6 months. Pain Scale: On a scale of 0 to 10, the patient rates the pain at 0. [place] Learner(s) are identified by the patient as person(s) most likely to participate in providing care, such as managing medications or taking them to doctors? appointments. Primary Language for learning: Tamazight. Insurance Insurance reviewed Visit number: 1 Onset Date: 2021 Medicare Certification Period: Beginnin2021 Endin2021 Subjective Living Environment: home - patient lives with spouse. Patient arrival: independent Voice evaluation: Reason for Referral: BHARTI AKBAR is a 76 year female referred to Dr. Warren [facility] by Dr. Armando Tian for spasmodic dysphonia. She received the Tera Tera COVID-19 vaccine and had adverse effects. She has pitch breaks and tremor with phonation that worsen with effort. 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 The patient has changes in her swallow as well. She had a MBS at [facility] and reports that it was normal. She has a sensation of tightness in the throat. She is snoring at night and reports that no one let her know the results. PMH: GERD, thyroid dysfunction, allergies, HTN Social: Tobacco - none; ETOH - rare Referred by: Dr. Warren Objective PERCEPTUAL VOICE FEATURES Intonation: WFL Loudness: reduced Nasal resonance: WFL Additional vocal characteristics noted included: Glottal jones Tremor Pitch breaks on adductor sounds Throat clears FLEXIBLE LARYNGOSCOPY WITH STROBOSCOPY Glottic closure: incomplete with mid glottal gap Vocal fold mobility: normal Vibratory amplitude: reduced bilaterally Mucosal wave: symmetric Periodicity: periodic Secretions: no pooling Mucosal edge: smooth bilaterally Supraglottic compression: FVC > AP Vascularity: unremarkable Pharyngeal contraction: normal ADDITIONAL OBSERVATIONS Intermittent breath holding + tremor and breaks on adductor sounds Treatment Total time in clinic is 35 minutes. Treatment/Instructions/ Information Provided: Educated patient in Botox treatment including what to expect and ongoing treatment needs. Patient instructed on post procedure safe swallow guidelines and conservative voice measures for the first 1-2 weeks. Instructed patient in voice tracking via provided journal to help direct future Botox treatments. Recommend a virtual visit prior to first Botox treatment 2/2 reported concentration/memory impairment. Contact information provided to address any questions and/or concerns and to schedule a f/u visit. Education: Individual(s) Educated: patient Verbal education provided: risks/benefits of therapy and results of testing Written education provided: results of testing Response to education: verbalized understanding and needs review Preferred learning method: demonstration, printed materials and (more content not included)... Normal [facility] Tobacco Screening.on 022 Adult depression screening assessment No [facility] Work Phone: Fall risk assessment a) No falls within the last year [facility] Work Phone: Tobacco use status CPHS b) No [facility] Work Phone: Absolute lymphocyte counton 05-04-2022 Lymphocytes Auto (Unsp spec) [#/Vol] 1.18 10*3/uL 0.83-4.51 [facility] Work Phone: Basophil percentageon 2021 Basophils/100 WBC (Bld) 0.2 % 0-1 [facility] Work Phone: [phone] Chloride [Moles/Vol] 103 mmol/L 98-107 [facility] Work Phone: [phone] Eosinophils/100 WBC (Bld) 2.0 % 0-5 [facility] Work Phone: [phone] Glucose [Mass/Vol] 82 mg/dL 74-106 [facility] Work Phone: [phone] Neutrophils (Bld) [#/Vol] 2.8 10*3/uL 2.0-7.7 [facility] Work Phone: [phone] Neutrophils/100 WBC (Bld) 62.3 % 47-70 [facility] Work Phone: [phone] Potassium [Moles/Vol] 4.3 mmol/L 3.5-5.1 [facility] Work Phone: [phone] Sodium [Moles/Vol] 138 mmol/L 136-145 [facility] Work Phone: [phone] WBC (Bld) [#/Vol] 4.5 10*3/uL 4.4-11.0 [facility] Work Phone: Blood erythrocytes count (nu mber/volume)on 05-04-2022 RBC (Bld) [#/Vol] 4.56 10*6/uL 4.2-5.4 [facility] Work [facility]: Blood hemoglobin measurement (mass/volume)on 05-04-2022 Hemoglobin (Bld) [Mass/Vol] 14.0 g/dL 12.0-15.0 [facility] Work Phone: [phone] Blood lymphocytes/100 leukoc yteson 05-04-2022 Lymphocytes/100 WBC (Bld) 26.0 % 19-41 [facility] Work Phone: Blood monocytes/100 leukocyt eson 05-04-2022 Monocytes/100 WBC (Bld) 9.3 % 0-10 [facility] Work Phone: [phone] Blood platelet mean volumeon 05-04-2022 Platelet mean volume (Bld) [Entitic vol] 8.1 fL 6.2-12.0 [facility] Work Phone: Determination of erythrocyte mean corpuscular volume (MCV)on 05-04-2022 MCV (RBC) [Entitic vol] 87.1 fL 81-99 [facility] Work Phone: Hematocrit Auto (Bld) [Volum e fraction]on 05-04-2022 Hematocrit (Bld) [Volume fraction] 39.7 % 37-47 [facility] Work Phone: Laboratory - Chemistry and C hemistry - challengeon 05-04-2022 CO2 [Moles/Vol] 31.0 mmol/L 21.0-32.0 [facility] Work Phone: Free T4 [Mass/Vol] 1.33 ng/dL 0.76-1.46 [facility] Work Phone: Natriuretic peptide B (Bld) [Mass/Vol] 66.9 pg/mL 0-100 [facility] Work Phone: Urea nitrogen/Creatinine [Mass ratio] 20.0 mg/mg 10-20 [facility] Work Phone: Laboratory - Hematology and Cell countson 05-04-2022 Erythrocyte distribution width (RBC) [Entitic vol] 40.1 fL 35.1-43.9 [facility] Work Phone: Erythrocyte distribution width (RBC) [Ratio] 12.6 % 11.6-14.6 [facility] Work Phone: Immature granulocytes/100 WBC (Bld) 0.200 % 0.0-0.9 [facility] Work Phone: Comment on above: IG% - Immature Granu locytes (promyelocytes, myelocytes and metamyelocytes) > 1% indicates that a LEFT SHIFT is Present. MCH (RBC) [Entitic mass] 30.7 pg 27.0-32.0 [facility] Work Phone: Nucleated RBC/100 WBC (Bld) [Ratio] 0 % 0-5 [facility] Work Phone: MCHC Auto (RBC) [Mass/Vol]on 05-04-2022 MCHC (RBC) [Mass/Vol] 35.3 g/dL 32-36 [facility] Work Phone: No Panel Informationon 05-04 Estimated GFR (MDRD) Amer 84 mL/min >60 [facility] Work Phone: Comment on above: GFR Calc Estimated GFR (MDRD) Non-Af Amer 69 mL/min >60 [facility] [facility] Work Phone: Comment on above: Non- GFR Calc Free Triiodothyronine (T3) pg/dL 2.5 pg/mL 2.18-3.98 [facility] Work Phone: Thyroid Stimulating Hormone (TSH) 0.14 uIU/mL 0.358-3.74 [facility] Work Phone: Platelets bldon 05-04-2022 Platelets (Bld) [#/Vol] 255 10*3/uL 150-450 [facility] Work Phone: Serum or plasma calcium santiago urement (mass/volume)on 05-04-2022 Calcium [Mass/Vol] 9.0 mg/dL 8.5-10.1 [facility] Work Phone: Serum or plasma creatinine m easurement (mass/volume)on 05-04-2022 Creatinine [Mass/Vol] 0.85 mg/dL 0.55-1.02 [facility] Work Phone: Comment on above: The validity of the calculated GFR & GFRAA in patients over 70 years has not been determined. Clinical correlation is essential. Serum or plasma urea nitroge n measurement (mass/volume)on 05-04-2022 Urea nitrogen [Mass/Vol] 17 mg/dL 7-18 [facility] Work Phone: Thin prep Papanicolaou smear with manual screeningon 08-24-2022 Thin prep Papanicolaou smear with manual screening 4 5-15 [facility] Work Phone: Seltzer nut IgE serumon 04-27 Seltzer Nut IgE Qn (S) <0.10 kU/L Class 0 [facility] Work Phone: Adhikari's yeast IgE serumon 0 04-27-2022 Adhikari's yeast IgE Qn (S) <0.10 kU/L Class 0 [facility] Work Phone: Laboratory - Miscellaneous t estson 04-27-2022 Service comment (Unsp spec) [Interp] Comment . [facility] Work Phone: Comment on above: Levels of Specific I gE Class Description of Class ----- < 0.10 0 Negative 0.10 - 0.31 0/I Equivocal/Low 0.32 - 0.55 I Low 0.56 - 1.40 II Moderate 1.41 - 3.90 III High 3.91 - 19.00 IV Very High 19.01 - 100.00 V Very High >100.00 Very High No Panel Informationon 04-27 Barley Allergen IgE Antibody <0.10 kU/L Class 0 [facility] Work Phone: Hazelnut Allergen IgE Antibody <0.10 kU/L Class 0 [facility] Work Phone: Scallop Allergen <0.10 kU/L Class 0 [facility] Work Phone: Sesame Seed Allergen IgE Antibody <0.10 kU/L Class 0 [facility] Work Phone: Shrimp Allergen <0.10 kU/L Class 0 [facility] Work Phone: Serum Ustilago avenae IgE an tibody assay (units/volume)on 04-27-2022 Oat smut IgE Qn (S) <0.10 kU/L Class 0 [facility] Work Phone: Serum almond IgE antibody as say (units/volume)on 04-27-2022 [place] IgE Qn (S) <0.10 kU/L Class 0 [facility] Work Phone: Serum apple IgE antibody ass ay (units/volume)on 04-27-2022 Apple IgE Qn (S) <0.10 kU/L Class 0 [facility] Work Phone: Serum banana IgE antibody as say (units/volume)on 04-27-2022 Banana IgE Qn (S) <0.10 kU/L Class 0 [facility] Work Phone: Serum beef IgE antibody assa y (units/volume)on 04-27-2022 Beef IgE Qn (S) <0.10 kU/L Class 0 [facility] Work Phone: Serum black walnut IgE antib crystal assay (units/volume)on 04-27-2022 Black [place] IgE Qn (S) <0.10 kU/L Class 0 [facility] Work Phone: Serum carrot IgE antibody as say (units/volume)on 04-27-2022 Carrot IgE Qn (S) <0.10 kU/L Class 0 [facility] Work Phone: Serum cashew nut IgE antibod y assay (units/volume)on 04-27-2022 Cashew nut IgE Qn (S) <0.10 kU/L Class 0 [facility] Work Phone: Serum chicken IgE antibody a ssay (units/volume)on 04-27-2022 Chicken IgE Qn (S) <0.10 kU/L Class 0 [facility] Work Phone: Serum clam IgE antibody assa y (units/volume)on 04-27-2022 Clam IgE Qn (S) <0.10 kU/L Class 0 [facility] Work Phone: Serum codfish IgE antibody a ssay (units/volume)on 04-27-2022 Codfish IgE Qn (S) <0.10 kU/L Class 0 [facility] Work Phone: Serum corn IgE antibody assa y (units/volume)on 04-27-2022 [place] IgE Qn (S) <0.10 kU/L Class 0 [facility] Work Phone: Serum cow milk IgE antibody assay (units/volume)on 04-27-2022 Cow milk IgE Qn (S) <0.10 kU/L Class 0 [facility] Work Phone: Serum crab IgE antibody assa y (units/volume)on 04-27-2022 Crab IgE Qn (S) <0.10 kU/L Class 0 [facility] Work Phone: Serum egg white IgE antibody assay (units/volume)on 04-27-2022 Egg white IgE Qn (S) <0.10 kU/L Class 0 [facility] Work Phone: Serum egg yolk IgE antibody assay (units/volume)on 04-27-2022 Egg yolk IgE Qn (S) <0.10 kU/L Class 0 [facility] Work Phone: Serum garlic IgE antibody as say (units/volume)on 04-27-2022 Garlic IgE Qn (S) <0.10 kU/L Class 0 [facility] Work Phone: Serum gluten IgE antibody as say (units/volume)on 04-27-2022 Gluten IgE Qn (S) <0.10 kU/L Class 0 [facility] Work Phone: Serum lobster IgE antibody a ssay (units/volume)on 04-27-2022 Lobster IgE Qn (S) <0.10 kU/L Class 0 [facility] Work Phone: Serum onion IgE antibody ass ay (units/volume)on 04-27-2022 Onion IgE Qn (S) <0.10 kU/L Class 0 [facility] Work Phone: Serum orange IgE antibody as say (units/volume)on 04-27-2022 [place]ole IgE Qn (S) <0.10 kU/L Class 0 [facility] Work Phone: Serum pea IgE antibody assay (units/volume)on 04-27-2022 Pea IgE Qn (S) <0.10 kU/L Class 0 [facility] Work Phone: Serum peach IgE antibody ass ay (units/volume)on 04-27-2022 [place] IgE Qn (S) <0.10 kU/L Class 0 [facility] Work Phone: Serum peanut IgE antibody as say (units/volume)on 04-27-2022 Peanut IgE Qn (S) <0.10 kU/L Class 0 [facility] Work Phone: Serum pecan or hickory nut I gE antibody assay (units/volume)on 04-27-2022 Pecan or [place] Nut IgE Qn (S) <0.10 kU/L Class 0 [facility] Work Phone: Serum pork IgE antibody assa y (units/volume)on 04-27-2022 Pork IgE Qn (S) <0.10 kU/L Class 0 [facility] Work Phone: Serum rice IgE antibody assa y (units/volume)on 04-27-2022 Rice IgE Qn (S) <0.10 kU/L Class 0 [facility] Work Phone: Serum salmon IgE antibody as say (units/volume)on 04-27-2022 Boon IgE Qn (S) <0.10 kU/L Class 0 [facility] Work Phone: Serum soybean IgE antibody a ssay (units/volume)on 04-27-2022 Soybean IgE Qn (S) <0.10 kU/L Class 0 [facility] Work Phone: Serum strawberry IgE antibod y assay (units/volume)on 04-27-2022 [place] IgE Qn (S) <0.10 kU/L Class 0 [facility] Work Phone: Serum tomato IgE antibody as say (units/volume)on 04-27-2022 Tomato IgE Qn (S) <0.10 kU/L Class 0 [facility] Work Phone: Serum tuna IgE antibody assa y (units/volume)on 04-27-2022 Tuna IgE Qn (S) <0.10 kU/L Class 0 [facility] Work Phone: Serum turkey meat IgE antibo dy assay (units/volume)on 04-27-2022 [place] meat IgE Qn (S) <0.10 kU/L Class 0 [facility] Work Phone: Comment on above: Performed at: [address] [id number] Director: Aleksandar Mahoney MD, Phone: [phone] Serum wheat IgE antibody ass ay (units/volume)on 04-27-2022 Wheat IgE Qn (S) <0.10 kU/L Class 0 [facility] Work Phone: Serum white potato specific IgE antibody assayon 04-27-2022 Potato IgE Qn (S) <0.10 kU/L Class 0 [facility] Work Phone: Absolute lymphocyte counton 03-30-2022 Lymphocytes Auto (Unsp spec) [#/Vol] 1.23 10*3/uL 0.83-4.51 [facility] Work Phone: Basophil percentageon 2021 Basophils/100 WBC (Bld) 0.2 % 0-1 [facility] Work Phone: Bilirubin [Mass/Vol] 0.30 mg/dL 0.20-1.00 [facility] Work Phone: Comment on above: For patients on eltr ombopag therapy, use of Dimension [place] TBIL is not recommended. Chloride [Moles/Vol] 103 mmol/L 98-107 [facility] Work Phone: [phone] Eosinophils/100 WBC (Bld) 1.4 % 0-5 [facility] Work Phone: [phone] Glucose [Mass/Vol] 77 mg/dL 74-106 [facility] Work Phone: [phone] Neutrophils (Bld) [#/Vol] 3.1 10*3/uL 2.0-7.7 [facility] Work Phone: [phone] Neutrophils/100 WBC (Bld) 63.8 % 47-70 [facility] Work Phone: [phone] Potassium [Moles/Vol] 4.2 mmol/L 3.5-5.1 [facility] Work Phone: [phone] Protein [Mass/Vol] 7.1 g/dL 6.4-8.2 [facility] Work Phone: [phone] Sodium [Moles/Vol] 139 mmol/L 136-145 [facility] Work Phone: [phone] WBC (Bld) [#/Vol] 4.9 10*3/uL 4.4-11.0 [facility] Work Phone: Blood erythrocytes count (nu mber/volume)on 03-30-2022 RBC (Bld) [#/Vol] 4.59 10*6/uL 4.2-5.4 [facility] Work Phone: [phone] Blood hemoglobin measurement (mass/volume)on 03-30-2022 Hemoglobin (Bld) [Mass/Vol] 13.7 g/dL 12.0-15.0 [facility] Work Phone: [phone] Blood lymphocytes/100 leukoc yteson 03-30-2022 Lymphocytes/100 WBC (Bld) 25.2 % 19-41 [facility] Work Phone: Blood monocytes/100 leukocyt eson 03-30-2022 Monocytes/100 WBC (Bld) 9.2 % 0-10 [facility] Work Phone: Blood platelet mean volumeon 03-30-2022 Platelet mean volume (Bld) [Entitic vol] 8.5 fL 6.2-12.0 [facility] Work Phone: Determination of erythrocyte mean corpuscular volume (MCV)on 03-30-2022 MCV (RBC) [Entitic vol] 87.4 fL 81-99 [facility] Work Phone: Erythrocyte sedimentation ra judy 03-30-2022 ESR (Bld) [Velocity] 2 mm/h 0-30 [facility] Work Phone: Hematocrit Auto (Bld) [Volum e fraction]on 03-30-2022 Hematocrit (Bld) [Volume fraction] 40.1 % 37-47 [facility] Work Phone: [phone] Iron measurement (mass/mass) on 03-30-2022 Iron (Unsp spec) [Mass/Mass] 87 ug/dL 50-170 [facility] Work Phone: Laboratory - Chemistry and C hemistry - challengeon 03-30-2022 ALP [Catalytic activity/Vol] 93 U/L 45-117 [facility] Work Phone: ALT [Catalytic activity/Vol] 21 U/L 13-56 [facility] Work Phone: CK [Catalytic activity/Vol] 85 U/L 26-192 [facility] Work Phone: CO2 [Moles/Vol] 30.0 mmol/L 21.0-32.0 [facility] Work Phone: Cobalamin (Vitamin B12) [Mass/Vol] 713 pg/mL 211-911 [facility] Work Phone: Free T4 [Mass/Vol] 1.23 ng/dL 0.76-1.46 [facility] Work Phone: Globulin (S) [Mass/Vol] 3.5 g/dL 2.2-4.2 [facility] Work Phone: Urea nitrogen/Creatinine [Mass ratio] 18.4 mg/mg 10-20 [facility] Work Phone: Laboratory - Hematology and Cell countson 03-30-2022 Erythrocyte distribution width (RBC) [Entitic vol] 41.3 fL 35.1-43.9 [facility] Work Phone: Erythrocyte distribution width (RBC) [Ratio] 13.1 % 11.6-14.6 [facility] Work Phone: Immature granulocytes/100 WBC (Bld) 0.200 % 0.0-0.9 [facility] Work Phone: Comment on above: IG% - Immature Granu locytes (promyelocytes, myelocytes and metamyelocytes) > 1% indicates that a LEFT SHIFT is Present. MCH (RBC) [Entitic mass] 29.8 pg 27.0-32.0 [facility] Work Phone: Nucleated RBC/100 WBC (Bld) [Ratio] 0 % 0-5 [facility] Work Phone: MCHC Auto (RBC) [Mass/Vol]on 03-30-2022 MCHC (RBC) [Mass/Vol] 34.2 g/dL 32-36 [facility] Work Phone: No Panel Informationon 03-30 Estimated GFR (MDRD) Amer 67 mL/min >60 [facility] Work Phone: Comment on above: GFR Calc Estimated GFR (MDRD) Non-Af Amer 55 mL/min >60 [facility] Work Phone: Comment on above: Non- GFR Calc Free Triiodothyronine (T3) pg/dL 2.0 pg/mL 2.18-3.98 [facility] Work Phone: Thyroid Stimulating Hormone (TSH) 0.29 uIU/mL 0.358-3.74 [facility] Work Phone: Total Iron Binding Capacity 380 ug/dL 250-450 [facility] Work Phone: Platelets bldon 03-30-2022 Platelets (Bld) [#/Vol] 274 10*3/uL 150-450 [facility] Work Phone: Serum or plasma C reactive p rotein measurement (mass/volume)on 03-30-2022 CRP [Mass/Vol] mg/L 0.0-3.0 [facility] Work Phone: Comment on above: C-Reactive Protein ( CRP) provides useful information for thediagnosis, therapy and monitoring of inflammatory processesand associated diseases. For the evaluation of Relative Riskfor Cardiovascular Disease, a High Sensitivity CRP (HSCRP)should be ordered. Serum or plasma albumin santiago urement (mass/volume)on 03-30-2022 Albumin [Mass/Vol] 3.6 g/dL 3.2-5.0 [facility] Work Phone: Serum or plasma albumin/glob ulin mass ratioon 03-30-2022 Albumin/Globulin [Mass ratio] 1.0 {ratio} 0.9-2.4 [facility] Work Phone: Serum or plasma calcium santiago urement (mass/volume)on 03-30-2022 Calcium [Mass/Vol] 9.1 mg/dL 8.5-10.1 [facility] Work Phone: Serum or plasma creatinine m easurement (mass/volume)on 03-30-2022 Creatinine [Mass/Vol] 1.03 mg/dL 0.55-1.02 [facility] Work Phone: Comment on above: The validity of the calculated GFR & GFRAA in patients over 70 years has not been determined. Clinical correlation is essential. Serum or plasma ferritin lucsa surement (mass/volume)on 03-30-2022 Ferritin [Mass/Vol] 24 ng/mL 8-252 [facility] Work Phone: Serum or plasma iron saturat ion measurement (mass fraction)on 03-30-2022 Iron saturation [Mass fraction] 22.9 % 15.0-55.0 [facility] Work Phone: Serum or plasma urea nitroge n measurement (mass/volume)on 03-30-2022 Urea nitrogen [Mass/Vol] 19 mg/dL 7-18 [facility] Work Phone: Thin prep Papanicolaou smear with manual screeningon 03-30-2022 Thin prep Papanicolaou smear with manual screening 20 U/L 15-37 [facility] Work Phone: Thin prep Papanicolaou smear with manual screening 6 5-15 [facility] Work Phone: Absolute lymphocyte counton 01-28-2022 Lymphocytes Auto (Unsp spec) [#/Vol] 1.20 10*3/uL 0.83-4.51 [facility] Work Phone: Basophil percentageon 2021 Basophils/100 WBC (Bld) 0.2 % 0-1 [facility] Work Phone: Bilirubin [Mass/Vol] 0.30 mg/dL 0.20-1.00 [facility] Work Phone: Comment on above: For patients on eltr ombopag therapy, use of Dimension [place] TBIL is not recommended. Chloride [Moles/Vol] 104 mmol/L 98-107 [facility] Work Phone: Eosinophils/100 WBC (Bld) 1.6 % 0-5 [facility] Work Phone: Glucose [Mass/Vol] 100 mg/dL 74-106 [facility] Work Phone: Comment on above: Fasting Glucose resu lt from 100 to 125 mg/dL suggests IMPAIRED HOMEOSTASIS per A.D.A. criteria. Neutrophils (Bld) [#/Vol] 2.6 10*3/uL 2.0-7.7 [facility] Work Phone: Neutrophils/100 WBC (Bld) 59.6 % 47-70 [facility] Work Phone: Potassium [Moles/Vol] 4.3 mmol/L 3.5-5.1 [facility] Work Phone: Protein [Mass/Vol] 7.0 g/dL 6.4-8.2 [facility]: Sodium [Moles/Vol] 138 mmol/L 136-145 [facility] Work Phone: WBC (Bld) [#/Vol] 4.3 10*3/uL 4.4-11.0 [facility] Work Phone: Blood erythrocytes count (nu mber/volume)on 01-28-2022 RBC (Bld) [#/Vol] 4.48 10*6/uL 4.2-5.4 [facility] Work Phone: Blood hemoglobin measurement (mass/volume)on 01-28-2022 Hemoglobin (Bld) [Mass/Vol] 12.8 g/dL 12.0-15.0 [facility] Work Phone: [phone] Blood lymphocytes/100 leukoc yteson 01-28-2022 Lymphocytes/100 WBC (Bld) 27.9 % 19-41 [facility] Work Phone: [phone] Blood monocytes/100 leukocyt eson 01-28-2022 Monocytes/100 WBC (Bld) 10.5 % 0-10 [facility] Work Phone: [phone] Blood platelet mean volumeon 01-28-2022 Platelet mean volume (Bld) [Entitic vol] 7.9 fL 6.2-12.0 [facility] Work Phone: Determination of erythrocyte mean corpuscular volume (MCV)on 01-28-2022 MCV (RBC) [Entitic vol] 85.3 fL 81-99 [facility] Work Phone: Hematocrit Auto (Bld) [Volum e fraction]on 01-28-2022 Hematocrit (Bld) [Volume fraction] 38.2 % 37-47 [facility] Work Phone: Laboratory - Chemistry and C hemistry - challengeon 01-28-2022 ALP [Catalytic activity/Vol] 86 U/L 45-117 [facility] Work Phone: ALT [Catalytic activity/Vol] 23 U/L 13-56 [facility] Work Phone: CO2 [Moles/Vol] 31.0 mmol/L 21.0-32.0 [facility] Work Phone: Globulin (S) [Mass/Vol] 3.3 g/dL 2.2-4.2 [facility] Work Phone: Urea nitrogen/Creatinine [Mass ratio] 21.0 mg/mg 10-20 [facility] Work Phone: Laboratory - Hematology and Cell countson 01-28-2022 Erythrocyte distribution width (RBC) [Entitic vol] 41.9 fL 35.1-43.9 [facility] Work Phone: Erythrocyte distribution width (RBC) [Ratio] 13.4 % 11.6-14.6 [facility] Work Phone: Immature granulocytes/100 WBC (Bld) 0.200 % 0.0-0.9 [facility] Work Phone: Comment on above: IG% - Immature Granu locytes (promyelocytes, myelocytes and metamyelocytes) > 1% indicates that a LEFT SHIFT is Present. MCH (RBC) [Entitic mass] 28.6 pg 27.0-32.0 [facility] Work Phone: Nucleated RBC/100 WBC (Bld) [Ratio] 0 % 0-5 [facility] Work Phone: MCHC Auto (RBC) [Mass/Vol]on 01-28-2022 MCHC (RBC) [Mass/Vol] 33.5 g/dL 32-36 [facility] Work Phone: No Panel Informationon 01-28 Estimated GFR (MDRD) Amer 69 mL/min >60 [facility] Work Phone: Comment on above: GFR Calc Estimated GFR (MDRD) Non-Af Amer 57 mL/min >60 [facility] Work Phone: Comment on above: Non- GFR Calc Platelets bldon 01-28-2022 Platelets (Bld) [#/Vol] 231 10*3/uL 150-450 [facility] Work Phone: Serum or plasma albumin santiago urement (mass/volume)on 01-28-2022 Albumin [Mass/Vol] 3.7 g/dL 3.2-5.0 [facility] Work Phone: Serum or plasma albumin/glob ulin mass ratioon 01-28-2022 Albumin/Globulin [Mass ratio] 1.1 {ratio} 0.9-2.4 [facility] Work Phone: Serum or plasma calcium santiago urement (mass/volume)on 01-28-2022 Calcium [Mass/Vol] 8.9 mg/dL 8.5-10.1 [facility] Work Phone: Serum or plasma creatinine m easurement (mass/volume)on 01-28-2022 Creatinine [Mass/Vol] 1.00 mg/dL 0.55-1.02 [facility] Work Phone: Comment on above: The validity of the calculated GFR & GFRAA in patients over 70 years has not been determined. Clinical correlation is essential. Serum or plasma urea nitroge n measurement (mass/volume)on 01-28-2022 Urea nitrogen [Mass/Vol] 21 mg/dL 7-18 [facility] Work Phone: Thin prep Papanicolaou smear with manual screeningon 01-28-2022 Thin prep Papanicolaou smear with manual screening 22 U/L 15-37 [facility] Work Phone: Thin prep Papanicolaou smear with manual screening 3 5-15 [facility] Work Phone: Basophil percentageon 2021 Creatinine [Mass/Vol] 0.7 mg/dL 0.55-1.02 [facility] Work Phone: No Panel Informationon 01-11 Bedside Estimated GFR (eGFR) > 60.0000 mL/min >60 [facility] Work Phone: [phone] Absolute lymphocyte counton 01-03-2022 Lymphocytes Auto (Unsp spec) [#/Vol] 1.20 10*3/uL 0.83-4.51 [facility] Work Phone: [phone] Basophil percentageon 2021 Basophils/100 WBC (Bld) 0.2 % 0-1 [facility] Work Phone: Eosinophils/100 WBC (Bld) 1.3 % 0-5 [facility] Work Phone: Neutrophils (Bld) [#/Vol] 3.7 10*3/uL 2.0-7.7 [facility] Work Phone: Neutrophils/100 WBC (Bld) 68.0 % 47-70 [facility] Work Phone: WBC (Bld) [#/Vol] 5.5 10*3/uL 4.4-11.0 [facility] Work Phone: Blood erythrocytes count (nu mber/volume)on 01-03-2022 RBC (Bld) [#/Vol] 4.57 10*6/uL 4.2-5.4 [facility] Work Phone: Blood hemoglobin measurement (mass/volume)on 01-03-2022 Hemoglobin (Bld) [Mass/Vol] 13.2 g/dL 12.0-15.0 [facility] Work Phone: Blood lymphocytes/100 leukoc yteson 01-03-2022 Lymphocytes/100 WBC (Bld) 22.0 % 19-41 [facility] Work Phone: Blood monocytes/100 leukocyt eson 01-03-2022 Monocytes/100 WBC (Bld) 8.3 % 0-10 [facility] Work Phone: Blood platelet mean volumeon 04-25-2022 Platelet mean volume (Bld) [Entitic vol] 8.7 fL 6.2-12.0 [facility] Work Phone: Determination of erythrocyte mean corpuscular volume (MCV)on 01-03-2022 MCV (RBC) [Entitic vol] 85.6 fL 81-99 [facility] Work Phone: Hematocrit Auto (Bld) [Volum e fraction]on 01-03-2022 Hematocrit (Bld) [Volume fraction] 39.1 % 37-47 [facility] Work Phone: Hemoglobin in reticulocytes (mass per reticulocyte)on 01-03-2022 Hemoglobin (Reticulocytes) [Entitic mass] 33.4 pg 30-35 [facility] Work Phone: Iron measurement (mass/mass) on 01-03-2022 Iron (Unsp spec) [Mass/Mass] 127 ug/dL 50-170 [facility] Work Phone: Laboratory - Hematology and Cell countson 01-03-2022 Erythrocyte distribution width (RBC) [Entitic vol] 42.8 fL 35.1-43.9 [facility] Work Phone: Erythrocyte distribution width (RBC) [Ratio] 13.8 % 11.6-14.6 [facility] Work Phone: Immature granulocytes/100 WBC (Bld) 0.200 % 0.0-0.9 [facility] Work Phone: Comment on above: IG% - Immature Granu locytes (promyelocytes, myelocytes and metamyelocytes) > 1% indicates that a LEFT SHIFT is Present. MCH (RBC) [Entitic mass] 28.9 pg 27.0-32.0 [facility] Work Phone: Nucleated RBC/100 WBC (Bld) [Ratio] 0 % 0-5 [facility] Work Phone: MCHC Auto (RBC) [Mass/Vol]on 01-03-2022 MCHC (RBC) [Mass/Vol] 33.8 g/dL 32-36 [facility]: No Panel Informationon 01-03 Immature Reticulocyte Fraction 11.50 % 3.00-15.90 [facility] Work Phone: Reticulocyte Count 1.35 % 0.5-1.5 [facility] Work Phone: Total Iron Binding Capacity 457 ug/dL 250-450 [facility] Work Phone: Platelets bldon 01-03-2022 Platelets (Bld) [#/Vol] 275 10*3/uL 150-450 [facility] Work Phone: Serum or plasma ferritin lucas surement (mass/volume)on 01-03-2022 Ferritin [Mass/Vol] 15 ng/mL 8-252 [facility] Work Phone: Basophil percentageon 2021 Bilirubin [Mass/Vol] 0.40 mg/dL 0.20-1.00 [facility] Work Phone: Comment on above: For patients on eltr ombopag therapy, use of Dimension [place] TBIL is not recommended. Cholesterol [Mass/Vol] 138 mg/dL <200 [facility] Work Phone: Comment on above: <200 mg/dL Desirable 200-240 mg/dL Borderline >240 mg/dL High Risk Protein [Mass/Vol] 7.6 g/dL 6.4-8.2 [facility] Work Phone: Triglyceride [Mass/Vol] 86 mg/dL [facility] Work Phone: Comment on above: The drugs N-Acetylcy steine and Metamizole may falsely depress this assay.Serum Triglycerides Reference Interval Normal <150 mg/dL Borderline high 150 - 199 mg/dL High 200 - 499 mg/dL Very High > or = 500 mg/dL Cholesterol in LDL Direct as say [Mass/Vol]on 12-02-2021 LDL Cholesterol Direct (LIPOEL) 54 [facility] Direct bilirubinon 2 Bilirubin.direct [Mass/Vol] 0.15 mg/dL 0.00-0.30 [facility] [facility] Work Phone: Laboratory - Chemistry and C hemistry - challengeon 12-02-2021 ALP [Catalytic activity/Vol] 89 U/L 45-117 [facility] Work Phone: ALT [Catalytic activity/Vol] 30 U/L 13-56 [facility] Work Phone: Globulin (S) [Mass/Vol] 3.7 g/dL 2.2-4.2 [facility] Work Phone: Serum or plasma albumin santiago urement (mass/volume)on 12-02-2021 Albumin [Mass/Vol] 3.9 g/dL 3.2-5.0 [facility] Work Phone: Serum or plasma cholesterol in HDL measurement (mass/volume)on 12-02-2021 Cholesterol in HDL [Mass/Vol] 67 mg/dL [facility] Work Phone: Comment on above: The drugs N-Acetylcy steine and Metamizole may falsely depress this assay. Reference Range HDL <40 mg/dL Low HDL Cholesterol HDL >or= 60 mg/dL High HDL Cholesterol Serum or plasma cholesterol in VLDL measurement (mass/volume)on 12-02-2021 Cholesterol in VLDL [Mass/Vol] 17 mg/dL 5-40 [facility] Work Phone: Serum or plasma low density lipoprotein (LDL) cholesterol measurement (mass/volume)on 12-02-2021 Cholesterol in LDL [Mass/Vol] 54 mg/dL 0-130 [facility] Work Phone: Thin prep Papanicolaou smear with manual screeningon 12-02-2021 Thin prep Papanicolaou smear with manual screening 23 U/L 15-37 [facility] Work Phone: XR Knee - right 4 Viewson IMPRESSION: Mild degenerative changes. Transformation Specialist: FLORINDA Transcribe Date/Time: Oct 27 2021 3:29P Dictated by : KESHAWN BURGESS MD This examination was interpreted and the report reviewed and electronically signed by: KESHAWN BURGESS MD on Oct 27 2021 3:30PM [facility] DIVISION OF RADIOLOGY * * *Final Report* * * DATE OF EXAM: Oct 27 2021 3:12PM WOX 5203 - XR KNEE 4V AP/PA BOTH+LAT/JIMENA RT / PROCEDURE REASON: Acute pain of right knee * * * * Physician Interpretation * * * * CLINICAL INDICATION: Pain TECHNIQUE: AP/PA/merchant radiographs of both knees and lateral radiograph of the right knee COMPARISON: Radiograph dated June 21, 2019 FINDINGS: Right knee: Trace fluid in the right suprapatellar joint space. Mild medial and patellofemoral compartmental joint space narrowing. Miniscule patellofemoral compartmental osteophyte production. Superior patellar enthesophyte. Mild atherosclerotic calcification of the vasculature. Left knee: No acute fracture or dislocation. Mild medial and patellofemoral compartmental joint space narrowing. DIVISION OF RADIOLOGY Provider, [facility] - 10/27/2021 * * *Final Report* * * DATE OF EXAM: Oct 27 2021 3:12PM WOX 5203 - XR KNEE 4V AP/PA BOTH+LAT/JIMENA RT / PROCEDURE REASON: Acute pain of right knee * * * * Physician Interpretation * * * * CLINICAL INDICATION: Pain TECHNIQUE: AP/PA/merchant radiographs of both knees and lateral radiograph of the right knee COMPARISON: Radiograph dated June 21, 2019 FINDINGS: Right knee: Trace fluid in the right suprapatellar joint space. Mild medial and patellofemoral compartmental joint space narrowing. Miniscule patellofemoral compartmental osteophyte production. Superior patellar enthesophyte. Mild atherosclerotic calcification of the vasculature. Left knee: No acute fracture or dislocation. Mild medial and patellofemoral compartmental joint space narrowing. IMPRESSION IMPRESSION: Mild degenerative changes. Transformation Specialist: [facility] Transcribe Date/Time: Oct 27 2021 3:29P Dictated by : KESHAWN BURGESS MD This examination was interpreted and the report reviewed and electronically signed by: KESHAWN BURGESS MD on Oct 27 2021 3:30PM EST [facility] Radiology Study observation (narrative) [facility] XR Knee - right 4 ViewsOrder ed By: [facility] Provider on 10-27-2021 [facility] Absolute lymphocyte counton 10-08-2021 Lymphocytes Auto (Unsp spec) [#/Vol] 0.83 10*3/uL 0.83-4.51 [facility] Work Phone: [phone] Basophil percentageon 2021 Basophils/100 WBC (Bld) 0.3 % 0-1 [facility] Work Phone: [phone] Bilirubin [Mass/Vol] 0.40 mg/dL 0.20-1.00 [facility] Work Phone: [phone] Comment on above: For patients on eltr ombopag therapy, use of Dimension [place] TBIL is not recommended. Chloride [Moles/Vol] 105 mmol/L 98-107 [facility] Work Phone: [phone] Eosinophils/100 WBC (Bld) 2.3 % 0-5 [facility] Work Phone: [phone] Glucose [Mass/Vol] 101 mg/dL 74-106 [facility] Work Phone: [phone] Comment on above: Fasting Glucose resu lt from 100 to 125 mg/dL suggests IMPAIRED HOMEOSTASIS per A.D.A. criteria. Neutrophils (Bld) [#/Vol] 2.6 10*3/uL 2.0-7.7 [facility] Work Phone: [phone] Neutrophils/100 WBC (Bld) 64.5 % 47-70 [facility] Work Phone: [phone] Potassium [Moles/Vol] 4.4 mmol/L 3.5-5.1 [facility] Work Phone: [phone] Protein [Mass/Vol] 6.7 g/dL 6.4-8.2 [facility] Work Phone: Sodium [Moles/Vol] 137 mmol/L 136-145 [facility] Work Phone: [phone] WBC (Bld) [#/Vol] 4.0 10*3/uL 4.4-11.0 [facility] Work Phone: Blood erythrocytes count (nu mber/volume)on 10-08-2021 RBC (Bld) [#/Vol] 4.35 10*6/uL 4.2-5.4 [facility] Work Phone: Blood hemoglobin measurement (mass/volume)on 10-08-2021 Hemoglobin (Bld) [Mass/Vol] 11.9 g/dL 12.0-15.0 [facility] Work Phone: Blood lymphocytes/100 leukoc yteson 10-08-2021 Lymphocytes/100 WBC (Bld) 21.0 % 19-41 [facility] Work Phone: Blood monocytes/100 leukocyt eson 10-08-2021 Monocytes/100 WBC (Bld) 11.6 % 0-10 [facility] Work Phone: Blood platelet mean volumeon 10-08-2021 Platelet mean volume (Bld) [Entitic vol] 9.1 fL 6.2-12.0 [facility] Work Phone: Determination of erythrocyte mean corpuscular volume (MCV)on 10-08-2021 MCV (RBC) [Entitic vol] 84.1 fL 81-99 [facility] Work Phone: Hematocrit Auto (Bld) [Volum e fraction]on 10-08-2021 Hematocrit (Bld) [Volume fraction] 36.6 % 37-47 [facility] Work Phone: Iron measurement (mass/mass) on 10-08-2021 Iron (Unsp spec) [Mass/Mass] 85 ug/dL 50-170 [facility] Work Phone: Laboratory - Chemistry and C hemistry - challengeon 10-08-2021 ALP [Catalytic activity/Vol] 80 U/L 45-117 [facility] Work Phone: ALT [Catalytic activity/Vol] 20 U/L 13-56 [facility] Work Phone: CO2 [Moles/Vol] 30.0 mmol/L 21.0-32.0 [facility] Work Phone: Globulin (S) [Mass/Vol] 3.3 g/dL 2.2-4.2 [facility] Work Phone: Urea nitrogen/Creatinine [Mass ratio] 19.8 mg/mg 10-20 [facility] Work Phone: Laboratory - Hematology and Cell countson 10-08-2021 Erythrocyte distribution width (RBC) [Entitic vol] 45.4 fL 35.1-43.9 [facility] Work Phone: Erythrocyte distribution width (RBC) [Ratio] 14.7 % 11.6-14.6 [facility] Work Phone: Immature granulocytes/100 WBC (Bld) 0.300 % 0.0-0.9 [facility] Work Phone: Comment on above: IG% - Immature Granu locytes (promyelocytes, myelocytes and metamyelocytes) > 1% indicates that a LEFT SHIFT is Present. MCH (RBC) [Entitic mass] 27.4 pg 27.0-32.0 [facility] Work Phone: Nucleated RBC/100 WBC (Bld) [Ratio] 0 % 0-5 [facility] Work Phone: MCHC Auto (RBC) [Mass/Vol]on 10-08-2021 MCHC (RBC) [Mass/Vol] 32.5 g/dL 32-36 [facility] Work Phone: No Panel Informationon 10-08 Estimated GFR (MDRD) Amer 73 mL/min >60 [facility] Work Phone: Comment on above: GFR Calc Estimated GFR (MDRD) Non-Af Amer 60 mL/min >60 [facility] Work Phone: Comment on above: Non- GFR Calc Total Iron Binding Capacity 407 ug/dL 250-450 [facility] Work Phone: Platelets bldon 10-08-2021 Platelets (Bld) [#/Vol] 250 10*3/uL 150-450 [facility] Work Phone: Serum or plasma albumin santiago urement (mass/volume)on 10-08-2021 Albumin [Mass/Vol] 3.4 g/dL 3.2-5.0 [facility] Work Phone: Serum or plasma albumin/glob ulin mass ratioon 10-08-2021 Albumin/Globulin [Mass ratio] 1.0 {ratio} 0.9-2.4 [facility] Work Phone: Serum or plasma calcium santiago urement (mass/volume)on 10-08-2021 Calcium [Mass/Vol] 8.8 mg/dL 8.5-10.1 [facility] Work Phone: Serum or plasma creatinine m easurement (mass/volume)on 10-08-2021 Creatinine [Mass/Vol] 0.96 mg/dL 0.55-1.02 [facility] Work Phone: Comment on above: The validity of the calculated GFR & GFRAA in patients over 70 years has not been determined. Clinical correlation is essential. Serum or plasma ferritin lucas surement (mass/volume)on 10-08-2021 Ferritin [Mass/Vol] 18 ng/mL 8-252 [facility] Work Phone: Serum or plasma iron saturat ion measurement (mass fraction)on 10-08-2021 Iron saturation [Mass fraction] 20.9 % 15.0-55.0 [facility] Work Phone: Serum or plasma urea nitroge n measurement (mass/volume)on 10-08-2021 Urea nitrogen [Mass/Vol] 19 mg/dL 7-18 [facility] Work Phone: Thin prep Papanicolaou smear with manual screeningon 10-08-2021 Thin prep Papanicolaou smear with manual screening 19 U/L 15-37 [facility] Work Phone: Thin prep Papanicolaou smear with manual screening 2 5-15 [facility] Work Phone: CBC,PLATELETSon 09-03-2021 Hematocrit (Bld) [Volume fraction] 30.2 % Low 34.9-44.3 [facility] Comment on above: Performed By: #### C HM6 #### U [facility] (DEFAULT) [address] [address] Hemoglobin (Bld) [Mass/Vol] 10.0 g/dL Low 11.4-15.2 [facility] Comment on above: Performed By: #### C HM6 #### [facility] (DEFAULT) [address] [address] MCV (RBC) [Entitic vol] 86.0 fL Normal 79.6-97.7 [facility] Comment on above: Performed By: #### C HM6 #### [facility] (DEFAULT) [address] [address] Mean Cell Hgb 28.5 pg Normal 25.9-33.9 [facility] Comment on above: Performed By: #### C HM6 #### [facility] (DEFAULT) [address] [address] Mean Cell Hgb Conc 33.1 g/dL Normal 31.4-35.9 [facility] Comment on above: Performed By: #### C HM6 #### [facility] (DEFAULT) [address] [address] Platelet mean volume (Bld) [Entitic vol] 8.7 fL Normal 8.5-12.2 [facility] Comment on above: Performed By: #### C HM6 #### [facility] (DEFAULT) [address] [address] Platelets (Bld) [#/Vol] 216 10*3/uL Normal 150-393 [facility] Comment on above: Performed By: #### C HM6 #### U [facility] (DEFAULT) [address] [place] [address] RBC (Bld) [#/Vol] 3.51 10*6/uL Low 3.91-5.04 [facility] Comment on above: Performed By: #### C HM6 #### U [facility] (DEFAULT) [address] [place] [address] RBC Distribution 14.2 % Normal 10.8-14.9 [facility] Comment on above: Performed By: #### C HM6 #### U [facility] (DEFAULT) [address] [place] [address] WBC (Bld) [#/Vol] 5.22 10*3/uL Normal 3.99-11.19 [facility] Comment on above: Performed By: #### C HM6 #### Dave [facility] (DEFAULT) [address] [place] [address] CHEM 7 (LYTES,BUN,CREA,GLUC) on 09-03-2021 Anion gap [Moles/Vol] 12 mmol/L Normal 7-17 [facility] Comment on above: Performed By: #### H EMOGC #### [facility] (DEFAULT) [address] [place] [address] Chloride [Moles/Vol] 110 mmol/L High 98-108 [facility] Comment on above: Performed By: #### H EMOGC #### [facility] (DEFAULT) [address] [place] [address] CO2 [Moles/Vol] 25 mmol/L Normal 22-[address] [facility] Comment on above: Performed By: #### H EMOGC #### [facility] (DEFAULT) [address] [place] [address] Creatinine [Mass/Vol] 0.83 mg/dL Normal 0.50-1.20 [facility] Comment on above: Performed By: #### H EMOGC #### [facility] (DEFAULT) [address] [place] [address] EST GFR, >=60 Normal >=60 [facility] Comment on above: Performed By: #### H EMOGC #### [facility] (DEFAULT) [address] [place] [address] EST GFR,Non >=60 Normal >=60 [facility] Comment on above: Performed By: #### H EMOGC #### U [facility] (DEFAULT) [address] [place] [address] Glucose [Mass/Vol] 87 mg/dL Normal 70-99 [facility] Comment on above: Performed By: #### H EMOGC #### [facility] (DEFAULT) [address] [place] [address] Osmolality [Osmolality] 297 mosm/kg Normal 278-305 [facility] Comment on above: Performed By: #### H EMOGC #### [facility] (DEFAULT) [address] [place] [address] Potassium [Moles/Vol] 3.9 mmol/L Normal 3.5-5.0 [facility] Comment on above: Performed By: #### H EMOGC #### [facility] (DEFAULT) [address] [place] [address] Sodium [Moles/Vol] 143 mmol/L Normal 133-143 [facility] Comment on above: Performed By: #### H EMOGC #### [facility] (DEFAULT) [address] [place] [address] Urea nitrogen [Mass/Vol] 11 mg/dL Normal 7-22 [facility] Comment on above: Performed By: #### H EMOGC #### [facility] (DEFAULT) [address] [address] Urea nitrogen/Creatinine [Mass ratio] 13 mg/mg Normal [facility] Comment on above: Performed By: #### H EMOGC #### [facility] (DEFAULT) [address] [place] [address] MAGNESIUMon 09-03-2021 Magnesium [Mass/Vol] 1.6 mg/dL Normal 1.6-2.6 [facility] Comment on above: Performed By: #### H EMOGC #### Dave [facility] (DEFAULT) [address] [place] [address] PHOSPHATE, INORGANICon 09-03 Phosphorous 3.2 mg/dL Normal 2.2-4.6 [facility] Comment on above: Performed By: #### H EMOGC #### U [facility] (DEFAULT) [address] [place] [address] PT,INR,PTTon 09-03-2021 aPTT Coag (Bld) [Time] 29.5 s Normal 24.0-34.3 [facility] Comment on above: Performed By: #### C DIFP #### [facility] (DEFAULT) [address] [place] [address] INR Coag (PPP) [Relative time] 1.0 {INR} Normal 0.9-1.1 [facility] Comment on above: Performed By: #### C DIFP #### [facility] (DEFAULT) [address] [place] [address] PT Coag (PPP) [Time] 13.4 s Normal 11.9-14.2 [facility] Comment on above: Performed By: #### C DIFP #### [facility] (DEFAULT) [address] [place] [address] CBC,PLATELETSon 09-02-2021 Hematocrit (Bld) [Volume fraction] 31.6 % Low 34.9-44.3 [facility] Comment on above: Performed By: #### C RICHELLE MONTEZ IPB #### [facility] (DEFAULT) [address] [place] [address] Hemoglobin (Bld) [Mass/Vol] 10.4 g/dL Low 11.4-15.2 [facility] Comment on above: Performed By: #### C RICHELLE MONTEZ IPB #### [facility] (DEFAULT) [address] [place] [address] MCV (RBC) [Entitic vol] 86.6 fL Normal 79.6-97.7 [facility] Comment on above: Performed By: #### Chaparrita MONTEZ MGO, IPB #### [facility] (DEFAULT) [address] [place] [address] Mean Cell Hgb 28.5 pg Normal 25.9-33.9 [facility] Comment on above: Performed By: #### Chaparrita MONTEZ MGDaniela, IPB #### [facility] (DEFAULT) [address] [place] [address] Mean Cell Hgb Conc 32.9 g/dL Normal 31.4-35.9 [facility] Comment on above: Performed By: #### Chaparrita MONTEZ MGDaniela, IPB #### [facility] (DEFAULT) [address] [place] [address] Platelet mean volume (Bld) [Entitic vol] 8.7 fL Normal 8.5-12.2 [facility] Comment on above: Performed By: #### RICHELLE ANGULO, IPB #### [facility] (DEFAULT) [address] [place] [address] Platelets (Bld) [#/Vol] 208 10*3/uL Normal 150-393 [facility] Comment on above: Performed By: #### Chaparrita HMDoron MGDaniela, IPB #### [facility] (DEFAULT) [address] [place] [address] RBC (Bld) [#/Vol] 3.65 10*6/uL Low 3.91-5.04 [facility] Comment on above: Performed By: #### Chaparrita HM7 MGO, IPB #### [facility] (DEFAULT) [address] [place] [address] RBC Distribution 13.9 % Normal 10.8-14.9 [facility] Comment on above: Performed By: #### Chaparrita HM7, MGO, IPB #### [facility] (DEFAULT) [address] [place] [address] WBC (Bld) [#/Vol] 5.18 10*3/uL Normal 3.99-11.19 [facility] Comment on above: Performed By: #### Chaparrita HM7, MGO, IPB #### [facility] (DEFAULT) [address] [place] [address] CHEM 7 (LYTES,BUN,CREA,GLUC) on 09-02-2021 Anion gap [Moles/Vol] 12 mmol/L Normal 7-17 [facility] Comment on above: Performed By: #### Chaparrita HM7, MGO, IPB #### [facility] (DEFAULT) [address] [place] [address] Chloride [Moles/Vol] 110 mmol/L High 98-108 [facility] Comment on above: Performed By: #### Chaparrita HM7, MGO, IPB #### U [facility] (DEFAULT) [address] [place] [address] CO2 [Moles/Vol] 24 mmol/L Normal 22-[address] [facility] Comment on above: Performed By: #### Chaparrita HM7, MGO, IPB #### [facility] (DEFAULT) [address] [place] [address] Creatinine [Mass/Vol] 0.82 mg/dL Normal 0.50-1.20 [facility] Comment on above: Performed By: #### Chaparrita HM7, MGO, IPB #### [facility] (DEFAULT) [address] [place] [address] EST GFR, >=60 Normal >=60 [facility] Comment on above: Performed By: #### Chaparrita HM7, MGO, IPB #### [facility] (DEFAULT) [address] [place] [address] EST GFR,Non >=60 Normal >=60 [facility] Comment on above: Performed By: #### Chaparrita HMDoron, MGO, IPB #### [facility] (DEFAULT) [address] [place] [address] Glucose [Mass/Vol] 96 mg/dL Normal 70-99 [facility] Comment on above: Performed By: #### Chaparrita HMDoron, MGO, IPB #### [facility] (DEFAULT) [address] [place] [address] Osmolality [Osmolality] 295 mosm/kg Normal 278-305 [facility] Comment on above: Performed By: #### Chaparrita HMDoron MGO, IPB #### [facility] (DEFAULT) [address] [place] [address] Potassium [Moles/Vol] 3.8 mmol/L Normal 3.5-5.0 [facility] Comment on above: Performed By: #### Chaparrita MONTEZ MGO, IPB #### [facility] (DEFAULT) [address] [place] [address] Sodium [Moles/Vol] 142 mmol/L Normal 133-143 [facility] Comment on above: Performed By: #### Chaparrita HMDoron, MGO, IPB #### [facility] (DEFAULT) [address] [place] [address] Urea nitrogen [Mass/Vol] 11 mg/dL Normal 7-22 [facility] Comment on above: Performed By: #### Chaparrita HMDoron MGO, IPB #### [facility] (DEFAULT) [address] [place] [address] Urea nitrogen/Creatinine [Mass ratio] 13 mg/mg Normal [facility] Comment on above: Performed By: #### Chaparrita HM7, MGO, IPB #### U [facility] (DEFAULT) [address] [place] [address] HEMOGLOBIN & HEMATOCRITon Hematocrit (Bld) [Volume fraction] 32.6 % Low 34.9-44.3 [facility] Comment on above: Performed By: #### H H ####[facility] (DEFAULT)[address] [place] [address] Hemoglobin (Bld) [Mass/Vol] 10.7 g/dL Low 11.4-15.2 [facility] Comment on above: Performed By: #### H H ####[facility] (DEFAULT)[address] [place] [address] Hematocrit (Bld) [Volume fraction] 32.3 % Low 34.9-44.3 [facility] Comment on above: Performed By: #### X M #### [facility] (DEFAULT) [address] [place] [address] Hemoglobin (Bld) [Mass/Vol] 10.5 g/dL Low 11.4-15.2 [facility] Comment on above: Performed By: #### X M #### [facility] (DEFAULT) [address] [place] [address] MAGNESIUMon 09-02-2021 Magnesium [Mass/Vol] 1.7 mg/dL Normal 1.6-2.6 [facility] Comment on above: Performed By: #### C HM7, MGO, IPB #### [facility] (DEFAULT) [address] [place] [address] PHOSPHATE, INORGANICon 09-02 Phosphorous 3.8 mg/dL Normal 2.2-4.6 [facility] Comment on above: Performed By: #### C HM7, MGO, IPB #### [facility] (DEFAULT) [address] [place] [address] PT,INR,PTTon 09-02-2021 aPTT Coag (Bld) [Time] 30.3 s Normal 24.0-34.3 [facility] Comment on above: Performed By: #### C HM6 #### U [facility] (DEFAULT) [address] [place] [address] INR Coag (PPP) [Relative time] 1.0 {INR} Normal 0.9-1.1 [facility] Comment on above: Performed By: #### C HM6 #### [facility] (DEFAULT) [address] [place] [address] PT Coag (PPP) [Time] 13.0 s Normal 11.9-14.2 [facility] Comment on above: Performed By: #### C HM6 #### [facility] (DEFAULT) [address] [place] [address] CBC,PLATELETSon 09-01-2021 Hematocrit (Bld) [Volume fraction] 35.3 % Normal 34.9-44.3 [facility] Comment on above: Performed By: #### X M #### [facility] (DEFAULT) [address] [place] [address] Hemoglobin (Bld) [Mass/Vol] 11.7 g/dL Normal 11.4-15.2 [facility] Comment on above: Performed By: #### X M #### [facility] (DEFAULT) [address] [place] [address] MCV (RBC) [Entitic vol] 85.5 fL Normal 79.6-97.7 [facility] Comment on above: Performed By: #### X M #### [facility] (DEFAULT) [address] [place] [address] Mean Cell Hgb 28.3 pg Normal 25.9-33.9 [facility] Comment on above: Performed By: #### X M #### [facility] (DEFAULT) [address] [place] [address] Mean Cell Hgb Conc 33.1 g/dL Normal 31.4-35.9 [facility] Comment on above: Performed By: #### X M #### [facility] (DEFAULT) [address] [place] [address] Platelet mean volume (Bld) [Entitic vol] 8.5 fL Normal 8.5-12.2 [facility] Comment on above: Performed By: #### X M #### [facility] (DEFAULT) [address] [place] [address] 22856 Platelets (Bld) [#/Vol] 239 10*3/uL Normal 150-393 [facility] Comment on above: Performed By: #### X M #### [facility] (DEFAULT) [address] [place] [address] 96706 RBC (Bld) [#/Vol] 4.13 10*6/uL Normal 3.91-5.04 [facility] Comment on above: Performed By: #### X M #### [facility] (DEFAULT) [address] [place] [address] 21395 RBC Distribution 13.8 % Normal 10.8-14.9 [facility] Comment on above: Performed By: #### X M #### [facility] (DEFAULT) [address] [place] [address] 57054 WBC (Bld) [#/Vol] 6.37 10*3/uL Normal 3.99-11.19 [facility] Comment on above: Performed By: #### X M #### [facility] (DEFAULT) [address] [place] [address] 23759 CHEM 7 (LYTES,BUN,CREA,GLUC) on 09-01-2021 Anion gap [Moles/Vol] 14 mmol/L Normal 7-17 [facility] Comment on above: Performed By: #### C DIFP #### [facility] (DEFAULT) [address] [place] [address] 83435 Chloride [Moles/Vol] 109 mmol/L High 98-108 [facility] Comment on above: Performed By: #### C DIFP #### [facility] (DEFAULT) [address] [place] [address] 90079 CO2 [Moles/Vol] 25 mmol/L Normal 22-[address] [facility] Comment on above: Performed By: #### C DIFP #### [facility] (DEFAULT) [address] [place] [address] 42155 Creatinine [Mass/Vol] 0.67 mg/dL Normal 0.50-1.20 [facility] Comment on above: Performed By: #### C DIFP #### [facility] (DEFAULT) [address] [place] [address] 29251 EST GFR, >=60 Normal >=60 [facility] Comment on above: Performed By: #### C DIFP #### [facility] (DEFAULT) [address] [place] [address] 27729 EST GFR,Non >=60 Normal >=60 [facility] Comment on above: Performed By: #### C DIFP #### [facility] (DEFAULT) [address] [place] [address] 18138 Glucose [Mass/Vol] 103 mg/dL High 70-99 [facility] Comment on above: Performed By: #### C DIFP #### [facility] (DEFAULT) [address] [address] Osmolality [Osmolality] 298 mosm/kg Normal 278-305 [facility] Comment on above: Performed By: #### C DIFP #### [facility] (DEFAULT) [address] [place] [address] 07471 Potassium [Moles/Vol] 3.6 mmol/L Normal 3.5-5.0 [facility] Comment on above: Performed By: #### C DIFP #### [facility] (DEFAULT) [address] [place] [address] 72219 Sodium [Moles/Vol] 144 mmol/L High 133-143 [facility] Comment on above: Performed By: #### C DIFP #### [facility] (DEFAULT) [address] [place] [address] 37996 Urea nitrogen [Mass/Vol] 7 mg/dL Normal 7-22 [facility] Comment on above: Performed By: #### C DIFP #### [facility] (DEFAULT) [address] [place] [address] 45793 Urea nitrogen/Creatinine [Mass ratio] 10 mg/mg Normal [facility] Comment on above: Performed By: #### C DIFP #### [facility] (DEFAULT) [address] [place] [address] 82054 HEMOGLOBIN & HEMATOCRITon Hematocrit (Bld) [Volume fraction] 35.7 % Normal 34.9-44.3 [facility] Comment on above: Performed By: #### C HM7, MGO, IPB #### [facility] (DEFAULT) [address] [place] [address] 30249 Hemoglobin (Bld) [Mass/Vol] 11.8 g/dL Normal 11.4-15.2 [facility] Comment on above: Performed By: #### C HM7, MGO, IPB #### [facility] (DEFAULT) [address] [place] [address] 28732 IONIZED CALCIUM, INPATIENTon 09-01-2021 ICA 4.42 mg/dL Low 4.60-5.30 [facility] Comment on above: Performed By: #### I CA ####[facility] (DEFAULT)[address] [place], [place] [address] [address] MAGNESIUMon 09-01-2021 Magnesium [Mass/Vol] 2.1 mg/dL Normal 1.6-2.6 [facility] Comment on above: Performed By: #### C DIFP #### [facility] (DEFAULT) [address] [place] [address] 17662 PHOSPHATE, INORGANICon 09-01 Phosphorous 2.3 mg/dL Normal 2.2-4.6 [facility] Comment on above: Performed By: #### C DIFP #### [facility] (DEFAULT) [address] [place] [address] 36023 PT,INR,PTTon 09-01-2021 aPTT Coag (Bld) [Time] 28.2 s Normal 24.0-34.3 [facility] Comment on above: Performed By: #### P TPTT ####[facility] (DEFAULT)[address] [place] [address] 36668 INR Coag (PPP) [Relative time] 1.1 {INR} Normal 0.9-1.1 [facility] Comment on above: Performed By: #### P TPTT ####[facility] (DEFAULT)[address] [place] [address] 50386 PT Coag (PPP) [Time] 13.6 s Normal 11.9-14.2 [facility] Comment on above: Performed By: #### P TPTT ####[facility] (DEFAULT)[address] [place] [address] 07011 CBC,PLATELETSon 08-31-2021 Hematocrit (Bld) [Volume fraction] 21.8 % Low 34.9-44.3 [facility] Comment on above: Performed By: #### X M #### [facility] (DEFAULT) [address] [place] [address] 43221 Hemoglobin (Bld) [Mass/Vol] 6.9 g/dL Critically low 11.4-15.2 [facility] Comment on above: Result Comment: This result has been called to DONNELL RAUSCH RN by Nilam Davenport on 08 31 2021 at 0206, and has been read back. Performed By: #### X M #### [facility] (DEFAULT) [address] [place] [address] 19124 MCV (RBC) [Entitic vol] 85.5 fL Normal 79.6-97.7 [facility] Comment on above: Performed By: #### X M #### [facility] (DEFAULT) [address] [place] [address] 17276 Mean Cell Hgb 27.1 pg Normal 25.9-33.9 [facility] Comment on above: Performed By: #### X M #### [facility] (DEFAULT) [address] [place] [address] 55740 Mean Cell Hgb Conc 31.7 g/dL Normal 31.4-35.9 [facility] Comment on above: Performed By: #### X M #### [facility] (DEFAULT) [address] [place] [address] 23956 Platelet mean volume (Bld) [Entitic vol] 8.7 fL Normal 8.5-12.2 [facility] Comment on above: Performed By: #### X M #### [facility] (DEFAULT) [address] [place] [address] 70718 Platelets (Bld) [#/Vol] 240 10*3/uL Normal 150-393 [facility] Comment on above: Performed By: #### X M #### [facility] (DEFAULT) [address] [place] [address] 64937 RBC (Bld) [#/Vol] 2.55 10*6/uL Low 3.91-5.04 [facility] Comment on above: Performed By: #### X M #### [facility] (DEFAULT) [address] [place] [address] 31897 RBC Distribution 13.9 % Normal 10.8-14.9 [facility] Comment on above: Performed By: #### X M #### [facility] (DEFAULT) [address] [place] [address] 21994 WBC (Bld) [#/Vol] 3.92 10*3/uL Low 3.99-11.19 [facility] Comment on above: Performed By: #### X M #### [facility] (DEFAULT) [address] [place] [address] 37953 CHEM 7 (LYTES,BUN,CREA,GLUC) on 08-31-2021 Anion gap [Moles/Vol] 8 mmol/L Normal 7-17 [facility] Comment on above: Performed By: #### C HM7, MGO, IPB #### [facility] (DEFAULT) [address] [place] [address] 37316 Chloride [Moles/Vol] 110 mmol/L High 98-108 [facility] Comment on above: Performed By: #### C HM7, MGO, IPB #### [facility] (DEFAULT) [address] [place] [address] 42937 CO2 [Moles/Vol] 26 mmol/L Normal 22-[address] [facility] Comment on above: Performed By: #### C HM7, MGO, IPB #### [facility] (DEFAULT) [address] [place] [address] 63923 Creatinine [Mass/Vol] 0.69 mg/dL Normal 0.50-1.20 [facility] Comment on above: Performed By: #### C HM7, MGO, IPB #### [facility] (DEFAULT) [address] [place] [address] 88666 EST GFR, >=60 Normal >=60 [facility] Comment on above: Performed By: #### C HM7, MGO, IPB #### [facility] (DEFAULT) [address] [place] [address] 43076 EST GFR,Non >=60 Normal >=60 [facility] Comment on above: Performed By: #### C HM7, MGO, IPB #### [facility] (DEFAULT) [address] [place] [address] 37508 Glucose [Mass/Vol] 104 mg/dL High 70-99 [facility] Comment on above: Performed By: #### C HM7, MGO, IPB #### [facility] (DEFAULT) [address] [place] [address] 78758 Osmolality [Osmolality] 293 mosm/kg Normal 278-305 [facility] Comment on above: Performed By: #### C HM7, MGO, IPB #### [facility] (DEFAULT) [address] [place] [address] 54350 Potassium [Moles/Vol] 3.9 mmol/L Normal 3.5-5.0 [facility] Comment on above: Performed By: #### RICHELLE ANGULO, IPB #### [facility] (DEFAULT) [address] [place] [address] 55191 Sodium [Moles/Vol] 140 mmol/L Normal 133-143 [facility] Comment on above: Performed By: #### RICHELLE ANGULO, IPB #### [facility] (DEFAULT) [address] [place] [address] 64023 Urea nitrogen [Mass/Vol] 14 mg/dL Normal 7-22 [facility] Comment on above: Performed By: #### RICHELLE ANGULO, IPB #### [facility] (DEFAULT) [address] [place] [address] 48576 Urea nitrogen/Creatinine [Mass ratio] 20 mg/mg Normal [facility] Comment on above: Performed By: #### RICHELLE ANGULO, IPB #### [facility] (DEFAULT) [address] [place] [address] 22101 HEMOGLOBIN & HEMATOCRITon Hematocrit (Bld) [Volume fraction] 23.2 % Low 34.9-44.3 [facility] Comment on above: Performed By: #### RICHELLE ANGULO, IPB #### [facility] (DEFAULT) [address] [place] [address] 69006 Hemoglobin (Bld) [Mass/Vol] 7.4 g/dL Low 11.4-15.2 [facility] Comment on above: Performed By: #### RICHELLE ANGULO, IPB #### [facility] (DEFAULT) [address] [place] [address] 78464 MAGNESIUMon 08-31-2021 Magnesium [Mass/Vol] 1.8 mg/dL Normal 1.6-2.6 [facility] Comment on above: Performed By: #### RICHELLE ANGULO, IPB #### [facility] (DEFAULT) [address] [place] [address] 37203 PHOSPHATE, INORGANICon 08-31 Phosphorous 3.3 mg/dL Normal 2.2-4.6 [facility] Comment on above: Performed By: #### RICHELLE ANGULO, IPB #### [facility] (DEFAULT) [address] [place] [address] 70280 PT,INR,PTTon 08-31-2021 aPTT Coag (Bld) [Time] 28.2 s Normal 24.0-34.3 [facility] Comment on above: Performed By: #### RICHELLE ANGULO, IPB #### [facility] (DEFAULT) [address] [place] [address] 55657 INR Coag (PPP) [Relative time] 1.1 {INR} Normal 0.9-1.1 [facility] Comment on above: Performed By: #### RICHELLE ANGULO, IPB #### [facility] (DEFAULT) [address] [place] [address] 58333 PT Coag (PPP) [Time] 14.0 s Normal 11.9-14.2 [facility] Comment on above: Performed By: #### RICHELLE ANGULO, IPB #### [facility] (DEFAULT) [address] [place] [address] 95141 CBC AND ELECTRONIC DIFFon Basophils (Bld) [#/Vol] 10*3/uL Normal 0.00-0.15 [facility] Comment on above: Performed By: #### RICHELLE ANGULO, IPB #### [facility] (DEFAULT) [address] [place] [address] 92788 Basophils/100 WBC (Bld) 0.5 % Normal [facility] Comment on above: Performed By: #### RICHELLE ANGULO, IPB #### [facility] (DEFAULT) [address] [place] [address] 77658 DIFF STATUS Electronic Differential Normal [facility] Comment on above: Performed By: #### RICHELLE ANGULO, IPB #### [facility] (DEFAULT) [address] [place] [address] 16371 Eosinophils (Bld) [#/Vol] 0.11 10*3/uL Normal 0.00-0.42 [facility] Comment on above: Performed By: #### RICHELLE ANGULO, IPB #### [facility] (DEFAULT) [address] [place] [address] 48019 Eosinophils/100 WBC (Bld) 2.6 % Normal [facility] Comment on above: Performed By: #### RICHELLE ANGULO, IPB #### [facility] (DEFAULT) [address] [place] [address] 86675 Hematocrit (Bld) [Volume fraction] 26.4 % Low 34.9-44.3 [facility] Comment on above: Performed By: #### RICHELLE ANGULO, IPB #### [facility] (DEFAULT) [address] [place] [address] 14187 Hemoglobin (Bld) [Mass/Vol] 8.5 g/dL Low 11.4-15.2 [facility] Comment on above: Performed By: #### RICHELLE ANGULO, IPB #### [facility] (DEFAULT) [address] [place] [address] 88093 Immature Grans % 0.2 % Normal [facility] Comment on above: Performed By: #### RICHELLE ANGULO, IPB #### [facility] (DEFAULT) [address] [place] [address] 17492 Immature Grans Absolute <0.04 Normal <=0.09 [facility] Comment on above: Performed By: #### RICHELLE ANGULO, IPB #### [facility] (DEFAULT) [address] [place] [address] 97500 Lymphocytes (Bld) [#/Vol] 1.30 10*3/uL Normal 1.16-3.51 [facility] Comment on above: Performed By: #### Chaparrita MONTEZ MGO, IPB #### [facility] (DEFAULT) [address] [place] [address] 80728 Lymphocytes/100 WBC (Bld) 31.1 % Normal [facility] Comment on above: Performed By: #### Chaparrita HMDoron, MGO, IPB #### [facility] (DEFAULT) [address] [place] [address] 32934 MCV (RBC) [Entitic vol] 83.8 fL Normal 79.6-97.7 [facility] Comment on above: Result Comment: Resu lts inconsistent with previous results Performed By: #### RICHELLE ANGULO, IPB #### [facility] (DEFAULT) [address] [place] [address] 89513 Mean Cell Hgb 27.0 pg Normal 25.9-33.9 [facility] Comment on above: Performed By: #### MG KEVO, IPB #### [facility] (DEFAULT) [address] [place] [address] 96536 Mean Cell Hgb Conc 32.2 g/dL Normal 31.4-35.9 [facility] Comment on above: Performed By: #### Chaparrita HM7, MGO, IPB #### [facility] (DEFAULT) [address] [place] [address] 17680 Monocytes (Bld) [#/Vol] 0.40 10*3/uL Normal 0.22-0.87 [facility] Comment on above: Performed By: #### Chaparrita HM7, MGO, IPB #### [facility] (DEFAULT) [address] [place] [address] 39892 Monocytes/100 WBC (Bld) 9.6 % Normal [facility] Comment on above: Performed By: #### Chaparrita HM7, MGO, IPB #### [facility] (DEFAULT) [address] [place] [address] 18123 Nucleated RBC 0.0 /100 WBC Normal <=0.[address] [facility] Comment on above: Performed By: #### Chaparrita HM7, MGO, IPB #### [facility] (DEFAULT) [address] [place] [address] 74574 Platelet mean volume (Bld) [Entitic vol] 8.6 fL Normal 8.5-12.2 [facility] Comment on above: Performed By: #### Chaparrita HMDoron, MGO, IPB #### [facility] (DEFAULT) [address] [place] [address] 53169 Platelets (Bld) [#/Vol] 300 10*3/uL Normal 150-393 [facility] Comment on above: Performed By: #### Chaparrita CEE7 MGO, IPB #### [facility] (DEFAULT) [address] [place] [address] 16366 RBC (Bld) [#/Vol] 3.15 10*6/uL Low 3.91-5.04 [facility] Comment on above: Performed By: #### Chaparrita HM7, MGO, IPB #### [facility] (DEFAULT) [address] [place] [address] 48463 RBC Distribution 14.2 % Normal 10.8-14.9 [facility] Comment on above: Performed By: #### Chaparrita HM7, MGO, IPB #### [facility] (DEFAULT) [address] [place] [address] 83658 Segs + Bands Auto 56.0 % Normal [facility] Comment on above: Performed By: #### Chaparrita HM7, MGO, IPB #### [facility] (DEFAULT) [address] [place] [address] 10393 Segs + Bands,Absolute Auto 2.34 K/uL Normal 1.64-7.28 [facility] Comment on above: Performed By: #### Chaparrita HM7, MGO, IPB #### [facility] (DEFAULT) [address] [place] [address] 24526 WBC (Bld) [#/Vol] 4.18 10*3/uL Normal 3.99-11.19 [facility] Comment on above: Performed By: #### C HM7, MGO, IPB #### [facility] (DEFAULT) [address] [place] [address] CHM 7 - EDon 08-30-2021 Anion gap [Moles/Vol] 11 mmol/L Normal 7-17 [facility] Comment on above: Performed By: #### C 7ED ####[facility] (DEFAULT)[address] [place] [address] Chloride [Moles/Vol] 105 mmol/L Normal 98-108 [facility] Comment on above: Performed By: #### C 7ED ####[facility] (DEFAULT)[address] [place] [address] CO2 [Moles/Vol] 28 mmol/L Normal 22-[address] [facility] Comment on above: Performed By: #### C 7ED ####[facility] (DEFAULT)[address] [place] [address], [place] [address] Creatinine [Mass/Vol] 0.97 mg/dL Normal 0.50-1.20 [facility] Comment on above: Performed By: #### C 7ED ####[facility] (DEFAULT)[address] [place] [address], [place] [address] EST GFR, >=60 Normal >=60 [facility] Comment on above: Performed By: #### C 7ED ####[facility] (DEFAULT)[address] [place] [address] EST GFR,Non 56 mL/min/1.73sqM Low >=60 [facility] Comment on above: Performed By: #### C 7ED ####[facility] (DEFAULT)[address] [place] [address] Glucose [Mass/Vol] 91 mg/dL Normal 70-99 [facility] Comment on above: Performed By: #### C 7ED ####[facility] (DEFAULT)[address] [place] [address] Osmolality [Osmolality] 294 mosm/kg Normal 278-305 [facility] Comment on above: Performed By: #### Chaparrita 7ED ####[facility] (DEFAULT)[address] [place] [address] Potassium [Moles/Vol] 4.7 mmol/L Normal 3.5-5.0 [facility] Comment on above: Result Comment: Slig htly hemolyzed Performed By: #### Chaparrita 7ED ####[facility] (DEFAULT)[address] [place] [address], [place] [address] Sodium [Moles/Vol] 139 mmol/L Normal 133-143 [facility] Comment on above: Performed By: #### Chaparrita 7ED ####[facility] (DEFAULT)[address] [place] [address] 74470 Urea nitrogen [Mass/Vol] 19 mg/dL Normal 7-22 [facility] Comment on above: Performed By: #### Chaparrita 7ED ####[facility] (DEFAULT)[address] [place] [address] [place] [address] Urea nitrogen/Creatinine [Mass ratio] 20 mg/mg Normal [facility] Comment on above: Performed By: #### Chaparrita 7ED ####[facility] (DEFAULT)[address] [place] [address] 13175 HEMOGLOBIN & HEMATOCRITon -2020 Hematocrit (Bld) [Volume fraction] 25.9 % Low 34.9-44.3 [facility] Comment on above: Performed By: #### X M #### [facility] (DEFAULT) [address] [place] [address] 61303 Hemoglobin (Bld) [Mass/Vol] 8.1 g/dL Low 11.4-15.2 [facility] Comment on above: Performed By: #### X M #### [facility] (DEFAULT) [address] [place] [address] 59947 Hematocrit (Bld) [Volume fraction] 27.6 % Low 34.9-44.3 [facility] Comment on above: Performed By: #### RICHELLE ANGULO, IPB #### [facility] (DEFAULT) [address] [place] [address] 83904 Hemoglobin (Bld) [Mass/Vol] 9.0 g/dL Low 11.4-15.2 [facility] Comment on above: Performed By: #### RICHELLE ANGULO, IPB #### [facility] (DEFAULT) [address] [place] [address] 64912 Hematocrit (Bld) [Volume fraction] 26.1 % Low 34.9-44.3 [facility] Comment on above: Performed By: #### RICHELLE ANGULO, IPB #### [facility] (DEFAULT) [address] [place] [address] 05799 Hemoglobin (Bld) [Mass/Vol] 8.5 g/dL Low 11.4-15.2 [facility] Comment on above: Performed By: #### RICHELLE ANGULO, IPB #### [facility] (DEFAULT) [address] [place] [address] 45940 HEPATIC FUNCTION PANELon Albumin [Mass/Vol] 3.6 g/dL Normal 3.5-5.0 [facility] Comment on above: Performed By: #### Chaparrita MONTEZ MGO, IPB #### [facility] (DEFAULT) [address] [place] [address] 94272 ALP [Catalytic activity/Vol] 60 U/L Normal 32-126 [facility] Comment on above: Performed By: #### Chaparrita HM7, MGO, IPB #### [facility] (DEFAULT) [address] [place] [address] 70474 ALT [Catalytic activity/Vol] 13 U/L Normal 9-48 [facility] Comment on above: Result Comment: Slig htly hemolyzed Performed By: #### C HM7, MGO, IPB #### [facility] (DEFAULT) [address] [place] [address] 89667 AST [Catalytic activity/Vol] 29 U/L Normal 14-40 [facility] Comment on above: Result Comment: Slig htly hemolyzed Performed By: #### C HM7, MGO, IPB #### [facility] (DEFAULT) [address] [place] [address] 74673 Bilirubin [Mass/Vol] 0.3 mg/dL Normal <1.5 [facility] Comment on above: Result Comment: Slig htly hemolyzed Performed By: #### C HM7, MGO, IPB #### [facility] (DEFAULT) [address] [place] [address] 16058 Bilirubin.indirect [Mass/Vol] 0.1 mg/dL Normal <0.3 [facility] Comment on above: Result Comment: Slig htly hemolyzed Performed By: #### C HM7, MGO, IPB #### [facility] (DEFAULT) [address] [place] [address] 34109 Protein [Mass/Vol] 5.7 g/dL Low 6.4-8.3 [facility] Comment on above: Performed By: #### C HM7, MGO, IPB #### [facility] (DEFAULT) [address] [place] [address] 07598 NOVEL CORONAVIRUS PCRon 12-2 SARS-CoV-2 (COVID-19) RNA LATOYA+probe Ql (Unsp spec) Not detected Normal NOT DETECTED [facility] Comment on above: Order Comment: Viral transport media or BAL specimen - Collection must be done while wearing N-95 mask, eye protection, gown and gloves. Please label ALL specimens as 2019-nCoV rule out and deliver by hand.This test was performed using real time PCR and has been approved for the qualitative detection of SARS-CoV-2 nucleic acid. The test has been authorized by the FDA under an emergency use authorization for use by authorized laboratories. Result Comment: [facility] Negative results do not preclude SARS-CoV-2 infection and should not be used as the sole basis for treatment or other patient management decisions. Optimum specimen types and timing for peak viral levels during infections caused by SARS-CoV-2 has not been determined. The possibility of a false negative result should especially be considered if the patient's recent exposures or clinical presentation suggest that SARS-CoV-2 infection is probable, and diagnostic tests for other causes of illness (e.g., other respiratory illness) are negative. Collection of a new specimen and re-testing may be necessary if the patient is critically ill or clinically deteriorating. Performed By: #### C HM6 #### [facility] (DEFAULT) [address] [address] PROTIME-INRon 08-30-2021 INR Coag (PPP) [Relative time] 1.0 {INR} Normal 0.9-1.1 [facility] Comment on above: Performed By: #### X M #### [facility] (DEFAULT) [address] [address] PT Coag (PPP) [Time] 12.9 s Normal 11.9-14.2 [facility] Comment on above: Performed By: #### X M #### [facility] (DEFAULT) [address] [address] TYPE AND SCREENon 08-30-2021 ABO/RH(D) TYPE Positive Normal [facility] Comment on above: Result Comment: @ 07:51 by AM1: Performed By: #### X M #### [facility] (DEFAULT) [address] [address] Absolute lymphocyte counton 08-29-2021 Lymphocytes Auto (Unsp spec) [#/Vol] 1.61 10*3/uL 0.83-4.51 [facility] Work Phone: Basophil percentageon 2020 Bilirubin [Mass/Vol] 0.20 mg/dL 0.20-1.00 [facility] Work Phone: Comment on above: For patients on eltr ombopag therapy, use of Dimension [place] TBIL is not recommended. Chloride [Moles/Vol] 101 mmol/L 98-107 [facility] Work Phone: Eosinophils/100 WBC (Bld) 1.2 % 0-5 [facility] Work Phone: Glucose [Mass/Vol] 84 mg/dL 74-106 [facility] Work Phone: Comment on above: Please note revised GLUCOSE reference range effective 2017. Lactate [Moles/Vol] 1.0 mmol/L 0.4-2.0 [facility] Work Phone: Neutrophils (Bld) [#/Vol] 2.9 10*3/uL 2.0-7.7 [facility] Work Phone: Potassium [Moles/Vol] 3.2 mmol/L 3.5-5.1 [facility] Work Phone: Protein [Mass/Vol] 6.8 g/dL 6.4-8.2 [facility] Work Phone: Sodium [Moles/Vol] 138 mmol/L 136-145 [facility] Work Phone: WBC (Bld) [#/Vol] 5.2 10*3/uL 4.4-11.0 [facility] Work Phone: Blood erythrocytes count (nu mber/volume)on 08-29-2021 RBC (Bld) [#/Vol] 3.50 10*6/uL 4.2-5.4 [facility] Work Phone: Blood hemoglobin measurement (mass/volume)on 08-29-2021 Hemoglobin (Bld) [Mass/Vol] 9.6 g/dL 12.0-15.0 [facility] Work Phone: Blood lymphocytes/100 leukoc yteson 08-29-2021 Lymphocytes/100 WBC (Bld) 31.1 % 19-41 [facility] Work Phone: Blood monocytes/100 leukocyt eson 08-29-2021 Monocytes/100 WBC (Bld) 11.2 % 0-10 [facility] Work Phone: Blood platelet mean volumeon 08-29-2021 Platelet mean volume (Bld) [Entitic vol] 8.4 fL 6.2-12.0 [facility] Work Phone: Determination of erythrocyte mean corpuscular volume (MCV)on 08-29-2021 MCV (RBC) [Entitic vol] 85.4 fL 81-99 [facility] Work Phone: Direct bilirubinon 1 Bilirubin.direct [Mass/Vol] 0.07 mg/dL 0.00-0.30 [facility] Work Phone: Hematocrit Auto (Bld) [Volum e fraction]on 08-29-2021 Hematocrit (Bld) [Volume fraction] 29.9 % 37-47 [facility] Work Phone: INR in Blood by Coagulation assayon 08-29-2021 INR Coag (Bld) [Relative time] 1.0 {INR} [facility] Work Phone: Laboratory - Chemistry and C hemistry - challengeon 08-29-2021 ALP [Catalytic activity/Vol] 87 U/L 45-117 [facility] Work Phone: ALT [Catalytic activity/Vol] 24 U/L 13-56 [facility] Work Phone: CO2 [Moles/Vol] 31.0 mmol/L 21.0-32.0 [facility] Work Phone: Globulin (S) [Mass/Vol] 3.6 g/dL 2.2-4.2 [facility] Work Phone: Lipase [Catalytic activity/Vol] 137 U/L 73-393 [facility] Work Phone: Urea nitrogen/Creatinine [Mass ratio] 24.3 mg/mg 10-20 [facility] Work Phone: Laboratory - Coagulationon 1 10-30-2020 aPTT Coag (Bld) [Time] 29.9 s 24.1-36.2 [facility] Work Phone: PT Coag (PPP) [Time] 12.5 s 11.7-14.9 os [facility] Work Phone: Laboratory - Hematology and Cell countson 08-29-2021 Basophils/100 WBC (Unsp spec) 0.4 % 0-1 [facility] Work Phone: Erythrocyte distribution width (RBC) [Entitic vol] 43.4 fL 35.1-43.9 [facility] Work Phone: Erythrocyte distribution width (RBC) [Ratio] 14.0 % 11.6-14.6 [facility] Work Phone: Immature granulocytes/100 WBC (Bld) 0.200 % 0.0-0.9 [facility] Work Phone: Comment on above: IG% - Immature Granu locytes (promyelocytes, myelocytes and metamyelocytes) > 1% indicates that a LEFT SHIFT is Present. MCH (RBC) [Entitic mass] 27.4 pg 27.0-32.0 [facility] Work Phone: Neutrophils/100 WBC (Bld) 55.9 % 47-70 [facility] Work Phone: Nucleated RBC/100 WBC (Bld) [Ratio] 0 % 0-5 [facility] Work Phone: Lower GI hemoglobin IA Ql (S tl)on 08-29-2021 Stool Occult Blood (ASHA) Positive [facility] Work Phone: MCHC Auto (RBC) [Mass/Vol]on 08-29-2021 MCHC (RBC) [Mass/Vol] 32.1 g/dL 32-36 [facility] Work Phone: No Panel Informationon 08-29 Estimated Creatinine Clearance Calc 37.60 ml/min [facility] Work Phone: Estimated GFR (MDRD) Amer 67 mL/min >60 [facility] Work Phone: Comment on above: GFR Calc Estimated GFR (MDRD) Non-Af Amer 55 mL/min >60 [facility] Work Phone: Comment on above: Non- GFR Calc Platelets bldon 08-29-2021 Platelets (Bld) [#/Vol] 345 10*3/uL 150-450 [facility] Work Phone: Serum or plasma albumin santiago urement (mass/volume)on 08-29-2021 Albumin [Mass/Vol] 3.2 g/dL 3.2-5.0 [facility] Work Phone: Serum or plasma calcium santiago urement (mass/volume)on 08-29-2021 Calcium [Mass/Vol] 8.9 mg/dL 8.5-10.1 [facility] Work Phone: Serum or plasma creatinine m easurement (mass/volume)on 08-29-2021 Creatinine [Mass/Vol] 1.03 mg/dL 0.55-1.02 [facility] Work Phone: Comment on above: The validity of the calculated GFR & GFRAA in patients over 70 years has not been determined. Clinical correlation is essential. Serum or plasma urea nitroge n measurement (mass/volume)on 08-29-2021 Urea nitrogen [Mass/Vol] 25 mg/dL 7-18 [facility] Work Phone: Thin prep Papanicolaou smear with manual screeningon 08-29-2021 Thin prep Papanicolaou smear with manual screening 19 U/L 15-37 [facility] Work Phone: Thin prep Papanicolaou smear with manual screening 6 5-15 [facility] Work Phone: Absolute lymphocyte counton 08-25-2021 Lymphocytes Auto (Unsp spec) [#/Vol] 1.05 10*3/uL 0.83-4.51 [facility] Work Phone: Basophil percentageon 2020 Bilirubin [Mass/Vol] 0.30 mg/dL 0.20-1.00 [facility] Work Phone: Comment on above: For patients on eltr ombopag therapy, use of Dimension [place] TBIL is not recommended. Cholesterol [Mass/Vol] 185 mg/dL <200 [facility] Work Phone: Comment on above: <200 mg/dL Desirable 200-240 mg/dL Borderline >240 mg/dL High Risk Eosinophils/100 WBC (Bld) 1.7 % 0-5 [facility] Work Phone: Neutrophils (Bld) [#/Vol] 3.1 10*3/uL 2.0-7.7 [facility] Work Phone: Protein [Mass/Vol] 7.1 g/dL 6.4-8.2 [facility] Work Phone: Triglyceride [Mass/Vol] 129 mg/dL [facility] Work Phone: Comment on above: The drugs N-Acetylcy steine and Metamizole may falsely depress this assay.Serum Triglycerides Reference Interval Normal <150 mg/dL Borderline high 150 - 199 mg/dL High 200 - 499 mg/dL Very High > or = 500 mg/dL WBC (Bld) [#/Vol] 4.6 10*3/uL 4.4-11.0 [facility] Work Phone: Blood erythrocytes count (nu mber/volume)on 08-25-2021 RBC (Bld) [#/Vol] 3.70 10*6/uL 4.2-5.4 [facility] Work Phone: Blood hemoglobin measurement (mass/volume)on 08-25-2021 Hemoglobin (Bld) [Mass/Vol] 10.2 g/dL 12.0-15.0 [facility] Work Phone: Blood lymphocytes/100 leukoc yteson 08-25-2021 Lymphocytes/100 WBC (Bld) 22.9 % 19-41 [facility] Work Phone: Blood monocytes/100 leukocyt eson 08-25-2021 Monocytes/100 WBC (Bld) 7.2 % 0-10 [facility] Work Phone: Blood platelet mean volumeon 08-25-2021 Platelet mean volume (Bld) [Entitic vol] 8.4 fL 6.2-12.0 [facility] Work Phone: Determination of erythrocyte mean corpuscular volume (MCV)on 08-25-2021 MCV (RBC) [Entitic vol] 88.1 fL 81-99 [facility] Work Phone: Direct bilirubinon 1 Bilirubin.direct [Mass/Vol] 0.07 mg/dL 0.00-0.30 [facility] Work Phone: Hematocrit Auto (Bld) [Volum e fraction]on 08-25-2021 Hematocrit (Bld) [Volume fraction] 32.6 % 37-47 [facility] Work Phone: Laboratory - Chemistry and C hemistry - challengeon 08-25-2021 ALP [Catalytic activity/Vol] 96 U/L 45-117 [facility] Work Phone: ALT [Catalytic activity/Vol] 28 U/L 13-56 [facility] Work Phone: Globulin (S) [Mass/Vol] 3.7 g/dL 2.2-4.2 [facility] Work Phone: Laboratory - Hematology and Cell countson 08-25-2021 Basophils/100 WBC (Unsp spec) 0.7 % 0-1 [facility] Work Phone: Erythrocyte distribution width (RBC) [Entitic vol] 44.8 fL 35.1-43.9 [facility] Work Phone: Erythrocyte distribution width (RBC) [Ratio] 13.8 % 11.6-14.6 [facility] Work Phone: Immature granulocytes/100 WBC (Bld) 0.200 % 0.0-0.9 [facility] Work Phone: Comment on above: IG% - Immature Granu locytes (promyelocytes, myelocytes and metamyelocytes) > 1% indicates that a LEFT SHIFT is Present. MCH (RBC) [Entitic mass] 27.6 pg 27.0-32.0 [facility] Work Phone: Neutrophils/100 WBC (Bld) 67.3 % 47-70 [facility] Work Phone: Nucleated RBC/100 WBC (Bld) [Ratio] 0 % 0-5 [facility] Work Phone: MCHC Auto (RBC) [Mass/Vol]on 08-25-2021 MCHC (RBC) [Mass/Vol] 31.3 g/dL 32-36 [facility] Work Phone: Platelets bldon 08-25-2021 Platelets (Bld) [#/Vol] 383 10*3/uL 150-450 [facility] Work Phone: Serum or plasma albumin santiago urement (mass/volume)on 08-25-2021 Albumin [Mass/Vol] 3.4 g/dL 3.2-5.0 [facility] Work Phone: Serum or plasma cholesterol in HDL measurement (mass/volume)on 08-25-2021 Cholesterol in HDL [Mass/Vol] 77 mg/dL [facility] Work Phone: Comment on above: The drugs N-Acetylcy steine and Metamizole may falsely depress this assay. Reference Range HDL <40 mg/dL Low HDL Cholesterol HDL >or= 60 mg/dL High HDL Cholesterol Serum or plasma cholesterol in VLDL measurement (mass/volume)on 08-25-2021 Cholesterol in VLDL [Mass/Vol] 26 mg/dL 5-40 [facility] Work Phone: Serum or plasma low density lipoprotein (LDL) cholesterol measurement (mass/volume)on 08-25-2021 Cholesterol in LDL [Mass/Vol] 82 mg/dL 0-130 [facility] Work Phone: Thin prep Papanicolaou smear with manual screeningon 08-25-2021 Thin prep Papanicolaou smear with manual screening 24 U/L 15-37 [facility] Work Phone: CBC,PLATELETSon 08-18-2021 Hematocrit (Bld) [Volume fraction] 26.5 % Low 34.9-44.3 [facility] Comment on above: Performed By: #### RICHELLE ANGULO, IPB #### Dave [facility] (DEFAULT) [address] [place] [address] Hemoglobin (Bld) [Mass/Vol] 8.7 g/dL Low 11.4-15.2 [facility] Comment on above: Performed By: #### RICHELLE ANGULO, IPB #### Dave [facility] (DEFAULT) [address] [place] [address] MCV (RBC) [Entitic vol] 88.3 fL Normal 79.6-97.7 [facility] Comment on above: Performed By: #### RICHELLE ANGULO, IPB #### Dave [facility] (DEFAULT) [address] [place] [address] Mean Cell Hgb 29.0 pg Normal 25.9-33.9 [facility] Comment on above: Performed By: #### RICHELLE ANGULO, IPB #### Dave [facility] (DEFAULT) [address] [place] [address] Mean Cell Hgb Conc 32.8 g/dL Normal 31.4-35.9 [facility] Comment on above: Performed By: #### RICHELLE ANGULO, IPB #### U [facility] (DEFAULT) [address] [place] [address] Platelet mean volume (Bld) [Entitic vol] 8.6 fL Normal 8.5-12.2 [facility] Comment on above: Performed By: #### C RICHELLE MONTEZ, IPB #### U [facility] (DEFAULT) [address] [place] [address] Platelets (Bld) [#/Vol] 271 10*3/uL Normal 150-393 [facility] Comment on above: Performed By: #### Chaparrita HM7, MGO, IPB #### Dave [facility] (DEFAULT) [address] [place] [address] RBC (Bld) [#/Vol] 3.00 10*6/uL Low 3.91-5.04 [facility] Comment on above: Performed By: #### Chaparrita CEE7 MGO, IPB #### Dave [facility] (DEFAULT) [address] [place] [address] RBC Distribution 13.4 % Normal 10.8-14.9 [facility] Comment on above: Performed By: #### Chaparrita HM7, MGO, IPB #### Dave [facility] (DEFAULT) [address] [place] [address] WBC (Bld) [#/Vol] 4.12 10*3/uL Normal 3.99-11.19 [facility] Comment on above: Performed By: #### Chaparrita HM7, MGO, IPB #### Dave [facility] (DEFAULT) [address] [place] [address] CHEM 6 (LYTES, BUN CREA)on 1 10-19-2020 Anion gap [Moles/Vol] 13 mmol/L Normal 7-17 [facility] Comment on above: Performed By: #### C HM6 ####U [facility] (DEFAULT)[address] [place] [address] Chloride [Moles/Vol] 108 mmol/L Normal 98-108 [facility] Comment on above: Performed By: #### C HM6 ####U [facility] (DEFAULT)[address] [place] [address] CO2 [Moles/Vol] 24 mmol/L Normal 22-[address] [facility] Comment on above: Performed By: #### C HM6 ####[facility] (DEFAULT)[address] [place] [address] Creatinine [Mass/Vol] 0.81 mg/dL Normal 0.50-1.20 [facility] Comment on above: Performed By: #### C HM6 ####U [facility] (DEFAULT)[address] [place] [address] EST GFR, >=60 Normal >=60 [facility] Comment on above: Performed By: #### C HM6 ####[facility] (DEFAULT)[address] [place] [address] EST GFR,Non >=60 Normal >=60 [facility] Comment on above: Performed By: #### C HM6 ####[facility] (DEFAULT)[address] [place] [address] Potassium [Moles/Vol] 4.0 mmol/L Normal 3.5-5.0 [facility] Comment on above: Performed By: #### C HM6 ####[facility] (DEFAULT)[address] [place] [address] Sodium [Moles/Vol] 141 mmol/L Normal 133-143 [facility] Comment on above: Performed By: #### C HM6 ####[facility] (DEFAULT)[address] [place] [address] Urea nitrogen [Mass/Vol] 13 mg/dL Normal 7-22 [facility] Comment on above: Performed By: #### C HM6 ####[facility] (DEFAULT)[address] [place] [address] Urea nitrogen/Creatinine [Mass ratio] 16 mg/mg Normal [facility] Comment on above: Performed By: #### C HM6 ####U [facility] (DEFAULT)[address] [place] [address] CBC,PLATELETSon 08-17-2021 Hematocrit (Bld) [Volume fraction] 25.7 % Low 34.9-44.3 [facility] Comment on above: Performed By: #### C DIFP #### [facility] (DEFAULT) [address] [place] [address] Hemoglobin (Bld) [Mass/Vol] 8.4 g/dL Low 11.4-15.2 [facility] Comment on above: Performed By: #### C DIFP #### U [facility] (DEFAULT) [address] [address] MCV (RBC) [Entitic vol] 88.3 fL Normal 79.6-97.7 [facility] Comment on above: Performed By: #### C DIFP #### [facility] (DEFAULT) [address] [place] [address] Mean Cell Hgb 28.9 pg Normal 25.9-33.9 [facility] Comment on above: Performed By: #### C DIFP #### [facility] (DEFAULT) [address] [address] Mean Cell Hgb Conc 32.7 g/dL Normal 31.4-35.9 [facility] Comment on above: Performed By: #### C DIFP #### [facility] (DEFAULT) [address] [place] [address] Platelet mean volume (Bld) [Entitic vol] 8.7 fL Normal 8.5-12.2 [facility] Comment on above: Performed By: #### C DIFP #### [facility] (DEFAULT) [address] [address] Platelets (Bld) [#/Vol] 253 10*3/uL Normal 150-393 [facility] Comment on above: Performed By: #### C DIFP #### [facility] (DEFAULT) [address] [place] [address] RBC (Bld) [#/Vol] 2.91 10*6/uL Low 3.91-5.04 [facility] Comment on above: Performed By: #### C DIFP #### [facility] (DEFAULT) [address] [place] [address] RBC Distribution 13.3 % Normal 10.8-14.9 [facility] Comment on above: Performed By: #### C DIFP #### [facility] (DEFAULT) [address] [place] [address] WBC (Bld) [#/Vol] 4.87 10*3/uL Normal 3.99-11.19 [facility] Comment on above: Performed By: #### C DIFP #### [facility] (DEFAULT) [address] [place] [address] CHEM 6 (LYTES, BUN CREA)on 1 10-18-2020 Anion gap [Moles/Vol] 9 mmol/L Normal 7-17 [facility] Comment on above: Performed By: #### C DIFP #### [facility] (DEFAULT) [address] [place] [address] Chloride [Moles/Vol] 107 mmol/L Normal 98-108 [facility] Comment on above: Performed By: #### C DIFP #### [facility] (DEFAULT) [address] [place] [address] CO2 [Moles/Vol] 29 mmol/L Normal 22-[address] [facility] Comment on above: Performed By: #### C DIFP #### [facility] (DEFAULT) [address] [address] Creatinine [Mass/Vol] 1.01 mg/dL Normal 0.50-1.20 [facility] Comment on above: Performed By: #### C DIFP #### [facility] (DEFAULT) [address] [place] [address] EST GFR, >=60 Normal >=60 [facility] Comment on above: Performed By: #### C DIFP #### [facility] (DEFAULT) [address] [place] [address] EST GFR,Non 53 mL/min/1.73sqM Low >=60 [facility] Comment on above: Performed By: #### C DIFP #### [facility] (DEFAULT) [address] [place] [address] Potassium [Moles/Vol] 3.9 mmol/L Normal 3.5-5.0 [facility] Comment on above: Performed By: #### C DIFP #### [facility] (DEFAULT) [address] [place] [address] Sodium [Moles/Vol] 141 mmol/L Normal 133-143 [facility] Comment on above: Performed By: #### C DIFP #### U [facility] (DEFAULT) [address] [place] [address] Urea nitrogen [Mass/Vol] 13 mg/dL Normal 7-22 [facility] Comment on above: Performed By: #### C DIFP #### [facility] (DEFAULT) [address] [place] [address] Urea nitrogen/Creatinine [Mass ratio] 13 mg/mg Normal [facility] Comment on above: Performed By: #### C DIFP #### [facility] (DEFAULT) [address] [place] [address] PLATELET COUNTon 08-17-2021 Platelet mean volume (Bld) [Entitic vol] 8.8 fL Normal 8.5-12.2 [facility] Comment on above: Performed By: #### C HM7, MGO, IPB #### [facility] (DEFAULT) [address] [place] [address] Platelets (Bld) [#/Vol] 330 10*3/uL Normal 150-393 [facility] Comment on above: Performed By: #### C HM7, MGO, IPB #### U [facility] (DEFAULT) [address] [address] CBC,PLATELETSon 08-16-2021 Hematocrit (Bld) [Volume fraction] 26.2 % Low 34.9-44.3 [facility] Comment on above: Performed By: #### X M #### [facility] (DEFAULT) [address] [address] Hemoglobin (Bld) [Mass/Vol] 8.5 g/dL Low 11.4-15.2 [facility] Comment on above: Performed By: #### X M #### [facility] (DEFAULT) [address] [address] MCV (RBC) [Entitic vol] 89.7 fL Normal 79.6-97.7 [facility] Comment on above: Performed By: #### X M #### [facility] (DEFAULT) [address] [address] Mean Cell Hgb 29.1 pg Normal 25.9-33.9 [facility] Comment on above: Performed By: #### X M #### [facility] (DEFAULT) [address] [address] Mean Cell Hgb Conc 32.4 g/dL Normal 31.4-35.9 [facility] Comment on above: Performed By: #### X M #### [facility] (DEFAULT) [address] [address] Platelet mean volume (Bld) [Entitic vol] 8.6 fL Normal 8.5-12.2 [facility] Comment on above: Performed By: #### X M #### [facility] (DEFAULT) [address] [address] Platelets (Bld) [#/Vol] 251 10*3/uL Normal 150-393 [facility] Comment on above: Performed By: #### X M #### [facility] (DEFAULT) [address] [place] [address] RBC (Bld) [#/Vol] 2.92 10*6/uL Low 3.91-5.04 [facility] Comment on above: Performed By: #### X M #### [facility] (DEFAULT) [address] [place] [address] RBC Distribution 13.2 % Normal 10.8-14.9 [facility] Comment on above: Performed By: #### X M #### [facility] (DEFAULT) [address] [place] [address] WBC (Bld) [#/Vol] 5.44 10*3/uL Normal 3.99-11.19 [facility] Comment on above: Performed By: #### X M #### [facility] (DEFAULT) [address] [place] [address] CHEM 6 (LYTES, BUN CREA)on 1 10-17-2020 Anion gap [Moles/Vol] 10 mmol/L Normal 7-17 [facility] Comment on above: Performed By: #### X M #### [facility] (DEFAULT) [address] [place] [address] Chloride [Moles/Vol] 107 mmol/L Normal 98-108 [facility] Comment on above: Performed By: #### X M #### [facility] (DEFAULT) [address] [place] [address] CO2 [Moles/Vol] 28 mmol/L Normal 22-[address] [facility] Comment on above: Performed By: #### X M #### [facility] (DEFAULT) [address] [place] [address] Creatinine [Mass/Vol] 0.93 mg/dL Normal 0.50-1.20 [facility] Comment on above: Performed By: #### X M #### [facility] (DEFAULT) [address] [place] [id number] EST GFR, >=60 Normal >=60 [facility] Comment on above: Performed By: #### X M #### [facility] (DEFAULT) [address] [place] [address] EST GFR,Non 59 mL/min/1.73sqM Low >=60 [facility] Comment on above: Performed By: #### X M #### [facility] (DEFAULT) [address] [place] [address] 52447 Potassium [Moles/Vol] 3.9 mmol/L Normal 3.5-5.0 [facility] Comment on above: Performed By: #### X M #### [facility] (DEFAULT) [address] [place] [address] 6[address]29 Sodium [Moles/Vol] 141 mmol/L Normal 133-143 [facility] Comment on above: Performed By: #### X M #### [facility] (DEFAULT) [address] [place] [address] 10306 Urea nitrogen [Mass/Vol] 13 mg/dL Normal 7-22 [facility] Comment on above: Performed By: #### X M #### [facility] (DEFAULT) [address] [place] [address] 48878 Urea nitrogen/Creatinine [Mass ratio] 14 mg/mg Normal [facility] Comment on above: Performed By: #### X M #### [facility] (DEFAULT) [address] [place] [address] CBC,PLATELETSon 08-15-2021 Hematocrit (Bld) [Volume fraction] 25.6 % Low 34.9-44.3 [facility] Comment on above: Performed By: #### C HM7, MGO, IPB #### U [facility] (DEFAULT) [address] [place] [address] 27567 Hemoglobin (Bld) [Mass/Vol] 8.3 g/dL Low 11.4-15.2 [facility] Comment on above: Performed By: #### Chaparrita HMDoron MGO, IPB #### Dave [facility] (DEFAULT) [address] [place] [address] 73026 MCV (RBC) [Entitic vol] 88.3 fL Normal 79.6-97.7 [facility] Comment on above: Performed By: #### Chaparrita HMoDron MGO, IPB #### Dave [facility] (DEFAULT) [address] [place] [address]13 Mean Cell Hgb 28.6 pg Normal 25.9-33.9 [facility] Comment on above: Performed By: #### Chaparrita MONTEZ MGDaniela, IPB #### [facility] (DEFAULT) [address] [place] [address] 42949 Mean Cell Hgb Conc 32.4 g/dL Normal 31.4-35.9 [facility] Comment on above: Performed By: #### Chaparrita MONTEZ MGO, IPB #### [facility] (DEFAULT) [address] [place] [address] 88163 Platelet mean volume (Bld) [Entitic vol] 8.4 fL Low 8.5-12.2 [facility] Comment on above: Performed By: #### Chaparrita MONTEZ MGO, IPB #### [facility] (DEFAULT) [address] [place] [address] 24695 Platelets (Bld) [#/Vol] 256 10*3/uL Normal 150-393 [facility] Comment on above: Performed By: #### Chaparrita HMDoron, MGO, IPB #### Dave [facility] (DEFAULT) [address] [place] [address] 20248 RBC (Bld) [#/Vol] 2.90 10*6/uL Low 3.91-5.04 [facility] Comment on above: Performed By: #### Chaparrita HM7, MGO, IPB #### U [facility] (DEFAULT) [address] [place] [address] 43727 RBC Distribution 13.3 % Normal 10.8-14.9 [facility] Comment on above: Performed By: #### C HM7, MGO, IPB #### U [facility] (DEFAULT) [address] [place] [address] 57955 WBC (Bld) [#/Vol] 4.97 10*3/uL Normal 3.99-11.19 [facility] Comment on above: Performed By: #### Chaparrita HM7, MGO, IPB #### [facility] (DEFAULT) [address] [place] [address] 03347 CHEM 6 (LYTES, BUN CREA)on 1 10-16-2020 Anion gap [Moles/Vol] 10 mmol/L Normal 7-17 [facility] Comment on above: Performed By: #### C HM7, MGO, IPB #### [facility] (DEFAULT) [address] [place] [address] 34285 Chloride [Moles/Vol] 106 mmol/L Normal 98-108 [facility] Comment on above: Performed By: #### Chaparrita HM7, MGO, IPB #### [facility] (DEFAULT) [address] [place] [address] 24997 CO2 [Moles/Vol] 27 mmol/L Normal 22-[address] [facility] Comment on above: Performed By: #### Chaparrita HM7, MGO, IPB #### [facility] (DEFAULT) [address] [place] [address] 57290 Creatinine [Mass/Vol] 0.89 mg/dL Normal 0.50-1.20 [facility] Comment on above: Performed By: #### Chaparrita HM7, MGO, IPB #### [facility] (DEFAULT) [address] [place] [address] 94990 EST GFR, >=60 Normal >=60 [facility] Comment on above: Performed By: #### C HM7, MGO, IPB #### U [facility] (DEFAULT) [address] [place] [address] 98621 EST GFR,Non >=60 Normal >=60 [facility] Comment on above: Performed By: #### RICHELLE ANGULO, IPB #### U [facility] (DEFAULT) [address] [place] [address] 75738 Potassium [Moles/Vol] 4.0 mmol/L Normal 3.5-5.0 [facility] Comment on above: Performed By: #### Chaparrita HMDoron MGDaniela, IPB #### U [facility] (DEFAULT) [address] [place] [address] 26139 Sodium [Moles/Vol] 139 mmol/L Normal 133-143 [facility] Comment on above: Performed By: #### C RICHELLE MONTEZ, IPB #### Dave [facility] (DEFAULT) [address] [place] [address] 12437 Urea nitrogen [Mass/Vol] 14 mg/dL Normal 7-22 [facility] Comment on above: Performed By: #### RICHELLE ANGULO, IPB #### [facility] (DEFAULT) [address] [place] [address] 96669 Urea nitrogen/Creatinine [Mass ratio] 16 mg/mg Normal [facility] Comment on above: Performed By: #### RICHELLE ANGULO, IPB #### [facility] (DEFAULT) [address] [place] [address] 11195 CBC,PLATELETSon 08-14-2021 Hematocrit (Bld) [Volume fraction] 25.1 % Low 34.9-44.3 [facility] Comment on above: Performed By: #### H EMOGC #### [facility] (DEFAULT) [address] [place] [address] 71711 Hemoglobin (Bld) [Mass/Vol] 8.2 g/dL Low 11.4-15.2 [facility] Comment on above: Result Comment: Resu lts inconsistent with previous results Performed By: #### H EMOGC #### [facility] (DEFAULT) [address] [place] [address] 73675 MCV (RBC) [Entitic vol] 89.0 fL Normal 79.6-97.7 [facility] Comment on above: Performed By: #### H EMOGC #### U [facility] (DEFAULT) [address] [place] [address] 16407 Mean Cell Hgb 29.1 pg Normal 25.9-33.9 [facility] Comment on above: Performed By: #### H EMOGC #### [facility] (DEFAULT) [address] [place] [address] 83629 Mean Cell Hgb Conc 32.7 g/dL Normal 31.4-35.9 [facility] Comment on above: Performed By: #### H EMOGC #### Dave [facility] (DEFAULT) [address] [address] Platelet mean volume (Bld) [Entitic vol] 8.4 fL Low 8.5-12.2 [facility] Comment on above: Performed By: #### H EMOGC #### [facility] (DEFAULT) [address] [place] [address] 79585 Platelets (Bld) [#/Vol] 226 10*3/uL Normal 150-393 [facility] Comment on above: Performed By: #### H EMOGC #### [facility] (DEFAULT) [address] [address]257 RBC (Bld) [#/Vol] 2.82 10*6/uL Low 3.91-5.04 [facility] Comment on above: Performed By: #### H EMOGC #### U [facility] (DEFAULT) [address] [address] RBC Distribution 13.3 % Normal 10.8-14.9 [facility] Comment on above: Performed By: #### H EMOGC #### U [facility] (DEFAULT) [address] [place] [address] 35413 WBC (Bld) [#/Vol] 5.21 10*3/uL Normal 3.99-11.19 [facility] Comment on above: Performed By: #### H [facility] #### [facility] (DEFAULT) [address] [place] [address] CHEM 6 (LYTES, BUN CREA)on 1 10-15-2020 Anion gap [Moles/Vol] 10 mmol/L Normal 7-17 [facility] Comment on above: Performed By: #### C HM6 ####[facility] (DEFAULT)[address] [place] [address], [place] [address] Chloride [Moles/Vol] 106 mmol/L Normal 98-108 [facility] Comment on above: Performed By: #### C HM6 ####[facility] (DEFAULT)[address] [place] [address] 80157 CO2 [Moles/Vol] 27 mmol/L Normal 22-[address] [facility] Comment on above: Performed By: #### C HM6 ####[facility] (DEFAULT)[address] [place] [address], [place] [address] Creatinine [Mass/Vol] 0.68 mg/dL Normal 0.50-1.20 [facility] Comment on above: Performed By: #### C HM6 ####[facility] (DEFAULT)[address] [place] [address], [place] [address] EST GFR, >=60 Normal >=60 [facility] Comment on above: Performed By: #### C HM6 ####[facility] (DEFAULT)[address] [place] [address], [place] [address] EST GFR,Non >=60 Normal >=60 [facility] Comment on above: Performed By: #### C HM6 ####[facility] (DEFAULT)[address] [place] [address], [place] [address] Potassium [Moles/Vol] 3.6 mmol/L Normal 3.5-5.0 [facility] Comment on above: Performed By: #### C HM6 ####[facility] (DEFAULT)[address] [place] [address] Sodium [Moles/Vol] 139 mmol/L Normal 133-143 [facility] Comment on above: Performed By: #### C HM6 ####[facility] (DEFAULT)[address] [place] [address] Urea nitrogen [Mass/Vol] 11 mg/dL Normal 7-22 [facility] Comment on above: Performed By: #### C HM6 ####[facility] (DEFAULT)[address] [facility] [address] Urea nitrogen/Creatinine [Mass ratio] 16 mg/mg Normal [facility] Comment on above: Performed By: #### C HM6 ####U [facility] (DEFAULT)[address] [place] [address] CT ENTEROGRAPHYon 08-14-2021 CT ENTEROGRAPHY EXAM: CT ENTEROGRAPH Y, 08/14/2021 14:19 PM COMPARISON: CT chest performed on August 09, 2021. Scan performed on July 26, 2021. CLINICAL INDICATIONS: r/o malignancy; TECHNIQUE: CT enterography: Following the oral ingestion of Volumen and intravenous contrast administration, axial thin sections were obtained from the lung bases to the ischial tuberosities. Coronal 2 mm reconstructions were also made. CONTRAST: iohexol (OMNIPAQUE) 350 MG/ML injection 1-171 mL; Route of Administration: Intravenous; Dose: 70 mL. FINDINGS: Lung Bases: Please refer to CT chest results for intrathoracic findings. ABDOMEN Liver: Liver demonstrates few calcified granulomata. No other focal hepatic lesion. Biliary/Gallbladder: The gallbladder is normal without evidence of radiopaque stones. The biliary tree is nondilated. Spleen: Multiple calcified splenic granulomata are noted. Pancreas: Pancreas is normal. There is no evidence of pancreatic mass or peripancreatic fluid. Adrenals: There is a 1.3 x 1.9 cm right adrenal nodule with internal fat attenuation on the recent PET/CT. This does not demonstrate increased FDG uptake and is consistent with a lipid rich adrenal adenoma. Left adrenal gland is unremarkable. Kidneys: Both kidneys are symmetric in size and enhance symmetrically. Extrarenal pelves noted bilaterally. Mild fullness of the renal pelvis is nonspecific. No significant calyceal dilatation. Ureters are normal in caliber bilaterally. Retroperitoneal/Vascula ture: Significant atherosclerotic burden is noted with calcified plaque in the aorta and its branches. IVC is normal in caliber. No retroperitoneal lymphadenopathy or mass. Gastrointestinal/Mesent orly: Stomach is well distended with enteric contrast. High attenuation within the gastric lumen is likely related to ingested content. There is mild thickening at the pyloroduodenal junction which is best visualized on coronal scans and image 49 series 4). This is circumferential. Duodenum and small bowel loops are normal in caliber. There is no evidence of small bowel wall thickening. Embolization coils are noted in the right lower quadrant. There is a very small focus of hyperdensity along the posterior aspect of the ileal loop in the central pelvis (image 98 series 3 and image 79 series 4. This is rounded in appearance and was not seen on the CT angiogram. Although this may represent intraluminal content, a small polypoid no lesion is difficult to exclude. No other mass or evidence of focal wall thickening in the bowel. Moderate fecal residue is noted throughout the colon. No obvious colonic wall thickening or mass. Stool noted at the rectum. PELVIS Bladder: The bladder is normal. Genital: The uterus is absent. No adnexal masses. There is a small amount of air in the vaginal cuff, nonspecific. There is no ascites. Bony Structures: There is scoliosis of the lumbar spine and degenerative changes. No aggressive osseous lesions. IMPRESSION: 1. No evidence of significant bowel wall thickening or obvious bowel mass. Well-circumscribed, rounded hyperdense area in the ileum in the central pelvis as described above. This was not seen on the CT angiogram performed for GI bleed. This finding may be related to intraluminal content, however a small polypoid lesion is difficult to exclude. Consider interval follow-up CT enterography at about 3 months interval. 2. Thickening at the pyloroduodenal junction is circumferential. Please correlate with symptoms of gastritis/duodenitis. This finding can also be further evaluated at subsequent CT enterography. 3. Right adrenal lipid rich adenoma. 4. Ancillary findings as described above. Normal [facility] C DIFFICILE BY PCR (CLOSTRID IUM DIFFICILE TOXIN)on 08-13-2021 C Difficile By Pcr Positive Abnormal Negative [facility] Comment on above: Order Comment: C. di fficile toxin gene testing is clinically indicated if a patient has 3 or more watery, unformed stools in 24hrs. Assess patient for common causes of diarrhea such as antibiotics, laxatives, stool softeners, tube feeding, etc. Collect one sample in a 3-vial para-tuyet kit consisting of a white, orange, and pink vial. Vials must be to fill line. If minimum volume, always fill white vial first. If multiple stool tests are ordered, only one 3-vial kit is required. If one C. Difficile is requested, only the white vial or a sterile container is required. This assay detects Toxigenic C. difficile (Toxin B gene DNA) by PCR. Results should be interpreted in conjunction with clinical findings. Result Comment: ENTE YANET CONTACT ISOLATION IS REQUIRED FOR INPATIENTS WITH C. DIFFICILE. HAND WASHING WITH SOAP AND WATER IS NECESSARY BEFORE LEAVING PATIENT'S ROOM. Performed By: #### C DIFP #### U [facility] (DEFAULT) [address] [address] CBC,PLATELETSon 08-13-2021 Hematocrit (Bld) [Volume fraction] 25.9 % Low 34.9-44.3 [facility] Comment on above: Performed By: #### H [facility] ####[facility] (DEFAULT)[address] [address] Hemoglobin (Bld) [Mass/Vol] 8.5 g/dL Low 11.4-15.2 [facility] Comment on above: Performed By: #### H [facility] ####[facility] (DEFAULT)[address] [address] MCV (RBC) [Entitic vol] 89.0 fL Normal 79.6-97.7 [facility] Comment on above: Performed By: #### H EMO ####[facility] (DEFAULT)[address] [address] Mean Cell Hgb 29.2 pg Normal 25.9-33.9 [facility] Comment on above: Performed By: #### H EMOGC ####[facility] (DEFAULT)[address] [place] [address] Mean Cell Hgb Conc 32.8 g/dL Normal 31.4-35.9 [facility] Comment on above: Performed By: #### H EMOGC ####[facility] (DEFAULT)[address] [facility] [place] [address] Platelet mean volume (Bld) [Entitic vol] 8.4 fL Low 8.5-12.2 [facility] Comment on above: Performed By: #### H EMOGC ####[facility] (DEFAULT)[address] [place] [address] Platelets (Bld) [#/Vol] 250 10*3/uL Normal 150-393 [facility] Comment on above: Performed By: #### H EMOGC ####[facility] (DEFAULT)[address] [place] [address] RBC (Bld) [#/Vol] 2.91 10*6/uL Low 3.91-5.04 [facility] Comment on above: Performed By: #### H EMOGC ####[facility] (DEFAULT)[address] [place] [address] RBC Distribution 13.3 % Normal 10.8-14.9 [facility] Comment on above: Performed By: #### H EMOGC ####[facility] (DEFAULT)[address] [facility] [place] [address] WBC (Bld) [#/Vol] 5.82 10*3/uL Normal 3.99-11.19 [facility] Comment on above: Performed By: #### H EMOGC ####[facility] (DEFAULT)[address] [facility] [place] [address] CHEM 6 (LYTES, BUN CREA)on 1 10-14-2020 Anion gap [Moles/Vol] 10 mmol/L Normal 7-17 [facility] Comment on above: Performed By: #### C HM6 #### U [facility] (DEFAULT) [address] [address] Chloride [Moles/Vol] 109 mmol/L High 98-108 [facility] Comment on above: Performed By: #### C HM6 #### [facility] (DEFAULT) [address] [address] CO2 [Moles/Vol] 27 mmol/L Normal 22-[address] [facility] Comment on above: Performed By: #### C HM6 #### U [facility] (DEFAULT) [address] [address] Creatinine [Mass/Vol] 0.74 mg/dL Normal 0.50-1.20 [facility] Comment on above: Performed By: #### C HM6 #### U [facility] (DEFAULT) [address] [address] EST GFR, >=60 Normal >=60 [facility] Comment on above: Performed By: #### C HM6 #### U [facility] (DEFAULT) [address] [address] EST GFR,Non >=60 Normal >=60 [facility] Comment on above: Performed By: #### C HM6 #### [facility] (DEFAULT) [address] [address] Potassium [Moles/Vol] 3.8 mmol/L Normal 3.5-5.0 [facility] Comment on above: Performed By: #### C HM6 #### [facility] (DEFAULT) [address] [address] Sodium [Moles/Vol] 142 mmol/L Normal 133-143 [facility] Comment on above: Performed By: #### C HM6 #### [facility] (DEFAULT) [address] [place] [address] 37709 Urea nitrogen [Mass/Vol] 14 mg/dL Normal 7-22 [facility] Comment on above: Performed By: #### C HM6 #### [facility] (DEFAULT) [address] [place] [address] 14516 Urea nitrogen/Creatinine [Mass ratio] 19 mg/mg Normal [facility] Comment on above: Performed By: #### C HM6 #### [facility] (DEFAULT) [address] [place] [address] 64638 HEMOGLOBIN & HEMATOCRITon Hematocrit (Bld) [Volume fraction] 31.3 % Low 34.9-44.3 [facility] Comment on above: Performed By: #### C HM6 #### [facility] (DEFAULT) [address] [place] [address] 19589 Hemoglobin (Bld) [Mass/Vol] 10.3 g/dL Low 11.4-15.2 [facility] Comment on above: Performed By: #### C HM6 #### [facility] (DEFAULT) [address] [place] [address] 23255 Hematocrit (Bld) [Volume fraction] 32.5 % Low 34.9-44.3 [facility] Comment on above: Performed By: #### H EMOGC #### [facility] (DEFAULT) [address] [place] [address] 06818 Hemoglobin (Bld) [Mass/Vol] 10.4 g/dL Low 11.4-15.2 [facility] Comment on above: Performed By: #### H EMOGC #### [facility] (DEFAULT) [address] [place] [address] 60701 CBC,PLATELETSon 08-12-2021 Hematocrit (Bld) [Volume fraction] 28.8 % Low 34.9-44.3 [facility] Comment on above: Performed By: #### H EMOGC #### [facility] (DEFAULT) [address] [place] [address] 23669 Hemoglobin (Bld) [Mass/Vol] 9.6 g/dL Low 11.4-15.2 [facility] Comment on above: Performed By: #### H EMOGC #### [facility] (DEFAULT) [address] [address] MCV (RBC) [Entitic vol] 89.2 fL Normal 79.6-97.7 [facility] Comment on above: Performed By: #### H EMOGC #### [facility] (DEFAULT) [address] [address] Mean Cell Hgb 29.7 pg Normal 25.9-33.9 [facility] Comment on above: Performed By: #### H EMOGC #### [facility] (DEFAULT) [address] [address] Mean Cell Hgb Conc 33.3 g/dL Normal 31.4-35.9 [facility] Comment on above: Performed By: #### H EMOGC #### [facility] (DEFAULT) [address] [address] Platelet mean volume (Bld) [Entitic vol] 8.4 fL Low 8.5-12.2 [facility] Comment on above: Performed By: #### H EMOGC #### [facility] (DEFAULT) [address] [address] Platelets (Bld) [#/Vol] 236 10*3/uL Normal 150-393 [facility] Comment on above: Performed By: #### H EMOGC #### [facility] (DEFAULT) [address] [address] RBC (Bld) [#/Vol] 3.23 10*6/uL Low 3.91-5.04 [facility] Comment on above: Performed By: #### H EMOGC #### U [facility] (DEFAULT) [address] [address] RBC Distribution 13.4 % Normal 10.8-14.9 [facility] Comment on above: Performed By: #### H EMO #### [facility] (DEFAULT) [address] [place] [address] 92668 WBC (Bld) [#/Vol] 5.38 10*3/uL Normal 3.99-11.19 [facility] Comment on above: Performed By: #### H EMO #### [facility] (DEFAULT) [address] [place] [address]353 CHEM 6 (LYTES, BUN CREA)on 1 10-13-2020 Anion gap [Moles/Vol] 9 mmol/L Normal 7-17 [facility] Comment on above: Performed By: #### C HM7, MGO, IPB #### [facility] (DEFAULT) [address] [place] [address]27 Chloride [Moles/Vol] 109 mmol/L High 98-108 [facility] Comment on above: Performed By: #### C HM7, MGO, IPB #### [facility] (DEFAULT) [address] [place] [address] 81011 CO2 [Moles/Vol] 28 mmol/L Normal 22-[address] [facility] Comment on above: Performed By: #### C HM7, MGO, IPB #### [facility] (DEFAULT) [address] [place] [address] 23520 Creatinine [Mass/Vol] 0.74 mg/dL Normal 0.50-1.20 [facility] Comment on above: Performed By: #### C HM7, MGO, IPB #### [facility] (DEFAULT) [address] [place] [address]776 EST GFR, >=60 Normal >=60 [facility] Comment on above: Performed By: #### Chaparrita HM7, MGO, IPB #### [facility] (DEFAULT) [address] [place] [address] 334[address] EST GFR,Non >=60 Normal >=60 [facility] Comment on above: Performed By: #### C HM7, MGO, IPB #### [facility] (DEFAULT) [address] [place] [address] 9[address] Potassium [Moles/Vol] 3.7 mmol/L Normal 3.5-5.0 [facility] Comment on above: Performed By: #### Chaparrita HM7, MGO, IPB #### [facility] (DEFAULT) [address] [place] [address] Sodium [Moles/Vol] 142 mmol/L Normal 133-143 [facility] Comment on above: Performed By: #### Chaparrita HM7, MGO, IPB #### [facility] (DEFAULT) [address] [place] [address] 12575 Urea nitrogen [Mass/Vol] 11 mg/dL Normal 7-22 [facility] Comment on above: Performed By: #### Chaparrita HM7, MGO, IPB #### [facility] (DEFAULT) [address] [address] [place] [address]016 Urea nitrogen/Creatinine [Mass ratio] 15 mg/mg Normal [facility] Comment on above: Performed By: #### Chaparrita HM7, MGO, IPB #### U [facility] (DEFAULT) [address] [place] [address] 22591 HEMOGLOBIN & HEMATOCRITon Hematocrit (Bld) [Volume fraction] 27.2 % Low 34.9-44.3 [facility] Comment on above: Performed By: #### H H ####U [facility] (DEFAULT)[address] [place] [address] 43691 Hemoglobin (Bld) [Mass/Vol] 9.0 g/dL Low 11.4-15.2 [facility] Comment on above: Performed By: #### H H ####[facility] (DEFAULT)[address] [place] [address] 79667 Hematocrit (Bld) [Volume fraction] 26.4 % Low 34.9-44.3 [facility] Comment on above: Performed By: #### H EMO #### [facility] (DEFAULT) [address] [address] Hemoglobin (Bld) [Mass/Vol] 8.6 g/dL Low 11.4-15.2 [facility] Comment on above: Performed By: #### H EMO #### [facility] (DEFAULT) [address] [address] NOVEL CORONAVIRUS PCRon SARS-CoV-2 (COVID-19) RNA LATOYA+probe Ql (Unsp spec) Not detected Normal NOT DETECTED [facility] Comment on above: Order Comment: Viral transport media or BAL specimen - Collection must be done while wearing N-95 mask, eye protection, gown and gloves. Please label ALL specimens as 2019-nCoV rule out and deliver by hand.This test was performed using real time PCR for the qualitative detection of SARS-CoV-2 nucleic acid. The test has been reviewed by the FDA and given emergency use authorization. This test was developed and its performance characteristics determined by The [facility] at [facility]. This test is used for clinical purposes. It should not be regarded as investigational or for research. Result Comment: [facility] Negative results do not preclude SARS-CoV-2 infection and should not be used as the sole basis for treatment or other patient management decisions. Optimum specimen types and timing for peak viral levels during infections caused by SARS-CoV-2 has not been determined. The possibility of a false negative result should especially be considered if the patient's recent exposures or clinical presentation suggest that SARS-CoV-2 infection is probable, and diagnostic tests for other causes of illness (e.g., other respiratory illness) are negative. Collection of a new specimen and re-testing may be necessary if the patient is critically ill or clinically deteriorating. Performed By: #### C HM6 #### [facility] (DEFAULT) [address] [place] [address]76 CBC,PLATELETSon 08-11-2021 Hematocrit (Bld) [Volume fraction] 26.6 % Low 34.9-44.3 [facility] Comment on above: Performed By: #### H EMOGC #### [facility] (DEFAULT) [address] [address] Hemoglobin (Bld) [Mass/Vol] 8.8 g/dL Low 11.4-15.2 [facility] Comment on above: Performed By: #### H EMOGC #### [facility] (DEFAULT) [address] [address] MCV (RBC) [Entitic vol] 88.7 fL Normal 79.6-97.7 [facility] Comment on above: Performed By: #### H EMOGC #### [facility] (DEFAULT) [address] [address] Mean Cell Hgb 29.3 pg Normal 25.9-33.9 [facility] Comment on above: Performed By: #### H EMOGC #### [facility] (DEFAULT) [address] [address] Mean Cell Hgb Conc 33.1 g/dL Normal 31.4-35.9 [facility] Comment on above: Performed By: #### H EMOGC #### [facility] (DEFAULT) [address] [address] Platelet mean volume (Bld) [Entitic vol] 8.2 fL Low 8.5-12.2 [facility] Comment on above: Performed By: #### H EMOGC #### [facility] (DEFAULT) [address] [address] Platelets (Bld) [#/Vol] 223 10*3/uL Normal 150-393 [facility] Comment on above: Performed By: #### H EMOGC #### U [facility] (DEFAULT) [address] [address] RBC (Bld) [#/Vol] 3.00 10*6/uL Low 3.91-5.04 [facility] Comment on above: Performed By: #### H EMOGC #### [facility] (DEFAULT) [address] [place] [address] 19917 RBC Distribution 13.5 % Normal 10.8-14.9 [facility] Comment on above: Performed By: #### H EMO #### U [facility] (DEFAULT) [address] [place] [address] 69670 WBC (Bld) [#/Vol] 5.38 10*3/uL Normal 3.99-11.19 [facility] Comment on above: Performed By: #### H [facility] #### U [facility] (DEFAULT) [address] [place] [address]27 CHEM 6 (LYTES, BUN CREA)on 1 10-12-2020 Anion gap [Moles/Vol] 10 mmol/L Normal 7-17 [facility] Comment on above: Performed By: #### X M #### [facility] (DEFAULT) [address] [place] [address] 50502 Chloride [Moles/Vol] 107 mmol/L Normal 98-108 [facility] Comment on above: Performed By: #### X M #### [facility] (DEFAULT) [address] [place] [address] 74807 CO2 [Moles/Vol] 29 mmol/L Normal 22-[address] [facility] Comment on above: Performed By: #### X M #### [facility] (DEFAULT) [address] [place] [address] 62345 Creatinine [Mass/Vol] 0.79 mg/dL Normal 0.50-1.20 [facility] Comment on above: Performed By: #### X M #### [facility] (DEFAULT) [address] [place] [address] 72072 EST GFR, >=60 Normal >=60 [facility] Comment on above: Performed By: #### X M #### [facility] (DEFAULT) [address] [place] [address] 65710 EST GFR,Non >=60 Normal >=60 [facility] Comment on above: Performed By: #### X M #### [facility] (DEFAULT) [address] [place] [address] 46495 Potassium [Moles/Vol] 3.8 mmol/L Normal 3.5-5.0 [facility] Comment on above: Performed By: #### X M #### [facility] (DEFAULT) [address] [place] [address] 67854 Sodium [Moles/Vol] 142 mmol/L Normal 133-143 [facility] Comment on above: Performed By: #### X M #### U [facility] (DEFAULT) [address] [place] [address] 99948 Urea nitrogen [Mass/Vol] 15 mg/dL Normal 7-22 [facility] Comment on above: Performed By: #### X M #### [facility] (DEFAULT) [address] [place] [address] 26542 Urea nitrogen/Creatinine [Mass ratio] 19 mg/mg Normal [facility] Comment on above: Performed By: #### X M #### [facility] (DEFAULT) [address] [place] [address] 65745 HEMOGLOBIN & HEMATOCRITon Hematocrit (Bld) [Volume fraction] 31.1 % Low 34.9-44.3 [facility] Comment on above: Performed By: #### X M #### [facility] (DEFAULT) [address] [place] [address] 07342 Hemoglobin (Bld) [Mass/Vol] 10.2 g/dL Low 11.4-15.2 [facility] Comment on above: Performed By: #### X M #### [facility] (DEFAULT) [address] [place] [address] 83678 Hematocrit (Bld) [Volume fraction] 27.1 % Low 34.9-44.3 [facility] Comment on above: Performed By: #### C HM7, MGO, IPB #### [facility] (DEFAULT) [address] [place] [address] 55921 Hemoglobin (Bld) [Mass/Vol] 9.0 g/dL Low 11.4-15.2 [facility] Comment on above: Performed By: #### C RICHELLE MONTEZ IPB #### U [facility] (DEFAULT) [address] [place] [address] 94732 XR ABDOMEN 1 VIEW PORTABLEon 08-11-2021 XR ABDOMEN 1 VIEW PORTABLE EXAM: XR ABDOMEN 1 VIEW PORTABLE, 08/11/2021 13:34 PM COMPARISON: No prior abdominal radiographs available for comparison. CLINICAL INDICATIONS: abdominal distention FINDINGS: Vascular coils are visualized in the right hemipelvis. There are vascular calcifications in the aorta, splenic artery and iliac arteries. A tiny phlebolith is possibly present in the right hemipelvis. The bowel gas pattern is nonobstructive. There is no evidence of an ileus. Degenerative changes are noted in the spine and mild lumbar dextroscoliosis. IMPRESSION: Nonobstructive bowel gas pattern. Normal [facility] CBC,PLATELETSon 08-10-2021 Hematocrit (Bld) [Volume fraction] 28.1 % Low 34.9-44.3 [facility] Comment on above: Performed By: #### X M #### U [facility] (DEFAULT) [address] [place] [address] 25613 Hemoglobin (Bld) [Mass/Vol] 9.5 g/dL Low 11.4-15.2 [facility] Comment on above: Performed By: #### X M #### [facility] (DEFAULT) [address] [place] [address] 29435 MCV (RBC) [Entitic vol] 87.8 fL Normal 79.6-97.7 [facility] Comment on above: Performed By: #### X M #### U [facility] (DEFAULT) [address] [place] [address] 90011 Mean Cell Hgb 29.7 pg Normal 25.9-33.9 [facility] Comment on above: Performed By: #### X M #### [facility] (DEFAULT) [address] [address] Mean Cell Hgb Conc 33.8 g/dL Normal 31.4-35.9 [facility] Comment on above: Performed By: #### X M #### [facility] (DEFAULT) [address] [address] Platelet mean volume (Bld) [Entitic vol] 8.5 fL Normal 8.5-12.2 [facility] Comment on above: Performed By: #### X M #### [facility] (DEFAULT) [address] [address] Platelets (Bld) [#/Vol] 241 10*3/uL Normal 150-393 [facility] Comment on above: Performed By: #### X M #### [facility] (DEFAULT) [address] [address] RBC (Bld) [#/Vol] 3.20 10*6/uL Low 3.91-5.04 [facility] Comment on above: Performed By: #### X M #### [facility] (DEFAULT) [address] [address] RBC Distribution 13.6 % Normal 10.8-14.9 [facility] Comment on above: Performed By: #### X M #### [facility] (DEFAULT) [address] [address] WBC (Bld) [#/Vol] 5.50 10*3/uL Normal 3.99-11.19 [facility] Comment on above: Performed By: #### X M #### [facility] (DEFAULT) [address] [address] CHEM 6 (LYTES, BUN CREA)on 10-10-2020 Anion gap [Moles/Vol] 11 mmol/L Normal 7-17 [facility] Comment on above: Performed By: #### C MELIDA MGO, IPB #### [facility] (DEFAULT) [address] [place] [address] 97751 Chloride [Moles/Vol] 109 mmol/L High 98-108 [facility] Comment on above: Performed By: #### Chaparrita HMDoron MGO, IPB #### [facility] (DEFAULT) [address] [place] [address] 64666 CO2 [Moles/Vol] 27 mmol/L Normal 22-[address] [facility] Comment on above: Performed By: #### Chaparrita MONTEZ MGO, IPB #### [facility] (DEFAULT) [address] [place] [address]121 Creatinine [Mass/Vol] 0.69 mg/dL Normal 0.50-1.20 [facility] Comment on above: Performed By: #### Chaparrita MONTEZ MGO, IPB #### [facility] (DEFAULT) [address] [place] [address] 32278 EST GFR, >=60 Normal >=60 [facility] Comment on above: Performed By: #### MG KEVO, IPB #### [facility] (DEFAULT) [address] [place] [address] 87889 EST GFR,Non >=60 Normal >=60 [facility] Comment on above: Performed By: #### Chaparrita MONTEZ MGO, IPB #### [facility] (DEFAULT) [address] [place] [address] 14510 Potassium [Moles/Vol] 3.7 mmol/L Normal 3.5-5.0 [facility] Comment on above: Performed By: #### Chaparrita HM7 MGO, IPB #### [facility] (DEFAULT) [address] [place] [address] 74935 Sodium [Moles/Vol] 143 mmol/L Normal 133-143 [facility] Comment on above: Performed By: #### Chaparrita MONTEZ MGO, IPB #### [facility] (DEFAULT) [address] [place] [address] Urea nitrogen [Mass/Vol] 11 mg/dL Normal 7-22 [facility] Comment on above: Performed By: #### C HM7, MGO, IPB #### [facility] (DEFAULT) [address] [place] [address] Urea nitrogen/Creatinine [Mass ratio] 16 mg/mg Normal [facility] Comment on above: Performed By: #### C HM7, MGO, IPB #### [facility] (DEFAULT) [address] [place] [address] CT CHEST WITH CONTRAST[address] CHEST WITH CONTRAST EXAM: CT CHEST WI TH CONTRAST, 08/09/2021 20:30 PM COMPARISON: No Available Comparisons. CLINICAL INDICATIONS: pleural based nodule in left lung, weight loss, rectal bleeding, work up for malignancy; RELEVANT CLINICAL HISTORY: TECHNIQUE: Following the administration of intravenous contrast, axial CT images were reconstructed from the volumetric data set, from the thoracic inlet through the adrenal glands. Coronal MIP images were also reconstructed. CONTRAST: iohexol (OMNIPAQUE) 350 MG/ML injection 1-171 mL; Route of Administration: Intravenous; Dose: 50 mL. FINDINGS: Lungs and Pleura: Small calcified nodule in the right lower lobe anteriorly on image 33, series 2. Small nodule in the left major fissure on image 37 measuring 0.4 x 0.5 cm. Small noncalcified nodule in the right lower lobe on image 40. Linear density in the right lower lobe on image 41, probably a scar. Linear densities are presumably fibrotic. There is a linear density extending to a pleural-based nodule in the left lung base, which measures 1 x 1.4 cm (mean diameter 1.2 cm). Tracheobronchial tree: No abnormality. Mediastinum/Kia: A right hilar lymph node has a mean diameter of 1.1 cm. Granulomatous calcification in the left hilum. Axilla and Supraclavicular Region: No axillary or supraclavicular adenopathy. Cardiovascular: The cardiac chambers and pericardium are within normal limits. Atherosclerosis including coronary calcification. Upper Abdomen: Limited evaluation. Atherosclerotic calcifications. Vicarious excretion of contrast material into the gallbladder. Please see the CT angiogram of the abdomen and pelvis dated August 08, 2021. Bones and Soft Tissue: No suspicious osseous lesion. IMPRESSION: 1. Scattered pulmonary nodules as mentioned above. The largest is a pleural-based nodule in the left lung base, for which PET/CT would be a reasonable next step. 2. Scattered small nodules that likely are related to fissures, and therefore likely to be a fissural lymph nodes. A small nodules should be followed with a 3 month interval follow-up scan. 3. Atherosclerosis including coronary calcification. 4. Please see the CT angiogram of the abdomen and pelvis from 1 day earlier. Normal [facility] HEMOGLOBIN & HEMATOCRITon Hematocrit (Bld) [Volume fraction] 32.7 % Low 34.9-44.3 [facility] Comment on above: Performed By: #### H H ####[facility] (DEFAULT)[address] [place] [address] [phone] Hemoglobin (Bld) [Mass/Vol] 10.9 g/dL Low 11.4-15.2 [facility] Comment on above: Performed By: #### H H ####[facility] (DEFAULT)[address] [place] [address] 13459 Hematocrit (Bld) [Volume fraction] 31.4 % Low 34.9-44.3 [facility] Comment on above: Performed By: #### X M #### [facility] (DEFAULT) [address] [place] [address] 18321 Hemoglobin (Bld) [Mass/Vol] 10.5 g/dL Low 11.4-15.2 [facility] Comment on above: Performed By: #### X M #### [facility] (DEFAULT) [address] [place] [address] 51687 HEMOGLOBIN A1Con 08-10-2021 Glucose [Mass/Vol] 100 mg/dL Normal [facility] Comment on above: Performed By: #### X M #### [facility] (DEFAULT) [address] [place] [address] HbA1c (Bld) [Mass fraction] 5.1 % Normal 4.7-5.6 [facility] Comment on above: Performed By: #### X M #### [facility] (DEFAULT) [address] [place] [address] NUC PET OTHERon 08-10-2021 NUC PET OTHER EXAM: NUC PET OTHER, 08/10/2021 12:48 PM CLINICAL INDICATIONS: 75-year-old woman with 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 The study is requested for the detection of possible occult malignancy and initial staging. Initial treatment strategy. COMPARISON: No prior PET/CT studies are available for comparison. CT DOSE: DLP: 370 mGy x cm kVp: 120 TECHNIQUE: The patient's fasting blood glucose was 96 mg/dl. Approximately 70 minutes following the injection of 13.4 mCi of F-18 FDG, the patient was positioned on the Siemens Y-Klubgraph mCT TOF< PET/CT-64, Jose [facility]on imaging unit. A low resolution non-contrast CT was obtained from the top of the head through the proximal thighs for use in attenuation correction and anatomic correlation. PET emission scans of this anatomic region were acquired shortly thereafter. Axial, sagittal, coronal and maximal intensity projection reconstruction images were presented for interpretation. No intravenous or oral contrast was administered. FINDINGS: Residual radiotracer activity is noted within the intravenous access hardware overlying the left upper extremity. Head/Neck: Normal, intense physiologic uptake is noted in the cerebral cortex caballero matter and subcortical nuclei without gross hypermetabolic abnormality. Physiologic FDG uptake is noted in the salivary glands and tonsillar tissue. There is no hypermetabolic cervical or supraclavicular lymphadenopathy. Postoperative changes compatible with a total thyroidectomy are noted. Chest: Dependent atelectatic changes are noted in both lung bases which has FDG activity visually comparable to blood pool. The peripheral/pleural based left lower lobe lung base density abuts this atelectatic change with no visual difference in FDG avidity when compared with other areas of atelectatic lung. There are no other suspicious hypermetabolic pulmonary parenchymal lesions identified. Calcified left hilar lymph nodes are present and likely relate to remote granulomatous disease. There is no hypermetabolic axillary, mediastinal, or hilar lymphadenopathy. Physiologic FDG uptake is seen in the myocardium. Atherosclerotic vascular calcifications are noted in the coronary arteries, aorta and its branches. Nonspecific diffuse mildly increased FDG activity is noted throughout the esophagus with no definite CT abnormality appreciated. This may possibly relate to underlying gastroesophageal reflux disease/esophagitis. Abdomen/Pelvis: Scattered liver and splenic calcifications are present and likely relate to remote granulomatous disease. Physiologic FDG uptake is seen throughout the liver and spleen. Relatively hyperdense contents are noted within the gallbladder lumen and may relate to recent radiographic contrast administration which has been the vicariously excreted. Heterogeneous FDG activity is noted throughout the bowel with no definite CT abnormality appreciated. Metallic vascular coils are noted within the right hemipelvis. Physiologic FDG excretion is seen in the kidneys, ureters, and urinary bladder. There are no hypermetabolic lesions in the adrenal glands. There is no hypermetabolic abdominal, pelvic or inguinal lymphadenopathy. Musculoskeletal: There is physiologic FDG uptake throughout the axial and visualized proximal appendicular skeleton. No focal hypermetabolic osseous lesions are identified. Subcutaneous stranding with mild FDG activity is noted within the posterior upper thighs which may possibly relate to recent trauma. IMPRESSION: No prior PET/CT study is available for comparison. No suspicious FDG avid pulmonary parenchymal lesion is identified to suggest occult malignancy. Dependent atelectatic changes are noted in both lungs and both lung bases as described above. There is a left lower lobe peripheral/pleural-base d density which abuts the atelectatic change in the left lung base with no associated abnormal FDG avidity. This may possibly relate to focal atelectatic change/scarring but continued close attention on follow-up CT imaging is recommended to document resolution and exclude any progressive process. Normal [facility] VITAMIN D (25-HYDROXY,TOTAL) on 08-10-2021 25-OH Vitamin D Total 71.0 ng/mL Normal 30.0-100.0 [facility] Comment on above: Order Comment: Vitam in D values have been shown to be falsely decreased in lipemic samples and should be interpreted with caution. Result Comment: <10 Deficiency 10-29 Insufficiency 30-100 Optimal Level >100 Possible Toxicity Performed By: #### X M #### [facility] (DEFAULT) [address] [place] [address]123 HEMOGLOBIN & HEMATOCRITon Hematocrit (Bld) [Volume fraction] 30.6 % Low 34.9-44.3 [facility] Comment on above: Performed By: #### X M #### [facility] (DEFAULT) [address] [place] [address] 85354 Hemoglobin (Bld) [Mass/Vol] 10.2 g/dL Low 11.4-15.2 [facility] Comment on above: Performed By: #### X M #### [facility] (DEFAULT) [address] [place] [address] 91736 Hematocrit (Bld) [Volume fraction] 30.5 % Low 34.9-44.3 [facility] Comment on above: Performed By: #### X M #### [facility] (DEFAULT) [address] [place] [address] 73905 Hemoglobin (Bld) [Mass/Vol] 10.2 g/dL Low 11.4-15.2 [facility] Comment on above: Performed By: #### X M #### [facility] (DEFAULT) [address] [place] [address] 59508 Hematocrit (Bld) [Volume fraction] 28.9 % Low 34.9-44.3 [facility] Comment on above: Performed By: #### X M #### [facility] (DEFAULT) [address] [place] [address] 01461 Hemoglobin (Bld) [Mass/Vol] 9.8 g/dL Low 11.4-15.2 [facility] Comment on above: Performed By: #### X M #### [facility] (DEFAULT) [address] [place] [address] 72592 Hematocrit (Bld) [Volume fraction] 29.9 % Low 34.9-44.3 [facility] Comment on above: Performed By: #### C HM7, MGO, IPB #### [facility] (DEFAULT) [address] [place] [address] 90721 Hemoglobin (Bld) [Mass/Vol] 9.7 g/dL Low 11.4-15.2 [facility] Comment on above: Performed By: #### C HM7, MGO, IPB #### [facility] (DEFAULT) [address] [place] [address] 16277 Hematocrit (Bld) [Volume fraction] 31.2 % Low 34.9-44.3 [facility] Comment on above: Performed By: #### X M #### [facility] (DEFAULT) [address] [place] [address] 29434 Hemoglobin (Bld) [Mass/Vol] 10.6 g/dL Low 11.4-15.2 [facility] Comment on above: Performed By: #### X M #### [facility] (DEFAULT) [address] [place] [address] XR KNEE LEFT 3 VIEWSon 08-09 XR KNEE LEFT 3 VIEWS EXAM: XR KNEE LEFT 3 VIEWS VIEWS, 08/09/2021 15:40 PM COMPARISON: No prior studies available for comparison. CLINICAL INDICATIONS: fall with subsequent knee pain RELEVANT CLINICAL HISTORY: FINDINGS: 3 images obtained. No acute osseous abnormality. There are minor tricompartmental osteoarthritic changes. No significant effusion. No radiopaque foreign body or pathologic soft tissue calcifications. The proximal tibiofibular articulation is aligned IMPRESSION: Tricompartmental osteoarthritis No acute osseous abnormality Normal [facility] ABORH TYPE RECONFIRMATIONon 08-08-2021 ABO/RH(D) TYPE Positive Normal [facility] Comment on above: Performed By: #### T YPEC #### [facility] (DEFAULT) [address] [place] [address]642 CALCIUMon 08-08-2021 Calcium [Mass/Vol] 7.8 mg/dL Low 8.6-10.5 [facility] Comment on above: Performed By: #### C DIFP #### [facility] (DEFAULT) [address] [place] [address] CBC AND ELECTRONIC DIFFon Basophils (Bld) [#/Vol] 10*3/uL Normal 0.00-0.15 [facility] Comment on above: Performed By: #### C HM7 MGO, IPB #### [facility] (DEFAULT) [address] [place] [address] 61771 Basophils/100 WBC (Bld) 0.4 % Normal [facility] Comment on above: Performed By: #### C JAYE7RICHELLE, IPB #### [facility] (DEFAULT) [address] [place] [address] 97640 DIFF STATUS Electronic Differential Normal [facility] Comment on above: Performed By: #### Chaparrita HM7 MGO, IPB #### Dave [facility] (DEFAULT) [address] [place] [address] 78514 Eosinophils (Bld) [#/Vol] 10*3/uL Normal 0.00-0.42 [facility] Comment on above: Performed By: #### Chaparrita HM7 MGDaniela, IPB #### Dave [facility] (DEFAULT) [address] [place] [address] 51021 Eosinophils/100 WBC (Bld) 0.4 % Normal [facility] Comment on above: Performed By: #### Chaparrita HM7 MGO, IPB #### Dave [facility] (DEFAULT) [address] [place] [address]487 Hematocrit (Bld) [Volume fraction] 25.3 % Low 34.9-44.3 [facility] Comment on above: Performed By: #### C HM7 MGO, IPB #### U [facility] (DEFAULT) [address] [place] [address] 20091 Hemoglobin (Bld) [Mass/Vol] 8.5 g/dL Low 11.4-15.2 [facility] Comment on above: Performed By: #### RICHELLE ANGULO, IPB #### [facility] (DEFAULT) [address] [address] Immature Grans % 0.2 % Normal [facility] Comment on above: Performed By: #### RICHELLE ANGLUO, IPB #### [facility] (DEFAULT) [address] [address] Immature Grans Absolute <0.04 Normal <=0.09 [facility] Comment on above: Performed By: #### RICHELLE ANGULO, IPB #### [facility] (DEFAULT) [address] [address] Lymphocytes (Bld) [#/Vol] 1.06 10*3/uL Low 1.16-3.51 [facility] Comment on above: Performed By: #### RICHELLE ANGULO, IPB #### Dave [facility] (DEFAULT) [address] [address] Lymphocytes/100 WBC (Bld) 20.9 % Normal [facility] Comment on above: Performed By: #### RICHELLE ANGULO, IPB #### Dave [facility] (DEFAULT) [address] [address] MCV (RBC) [Entitic vol] 88.8 fL Normal 79.6-97.7 [facility] Comment on above: Performed By: #### RICHELLE ANGULO, IPB #### Dave [facility] (DEFAULT) [address] [address] Mean Cell Hgb 29.8 pg Normal 25.9-33.9 [facility] Comment on above: Performed By: #### RICHELLE ANGULO, IPB #### [facility] (DEFAULT) [address] [address] Mean Cell Hgb Conc 33.6 g/dL Normal 31.4-35.9 [facility] Comment on above: Performed By: #### Chaparrita CEE7 MGO, IPB #### U [facility] (DEFAULT) [address] [place] [address]11 Monocytes (Bld) [#/Vol] 0.34 10*3/uL Normal 0.22-0.87 [facility] Comment on above: Performed By: #### Chaparrita HM7, MGO, IPB #### [facility] (DEFAULT) [address] [place] [address] 37194 Monocytes/100 WBC (Bld) 6.7 % Normal [facility] Comment on above: Performed By: #### Chaparrita HMDoron MGO, IPB #### [facility] (DEFAULT) [address] [place] [address] 36768 Nucleated RBC 0.0 /100 WBC Normal <=0.[address] [facility] Comment on above: Performed By: #### Chaparrita MONTEZ MGO, IPB #### Dave [facility] (DEFAULT) [address] [place] [address]4936 Platelet mean volume (Bld) [Entitic vol] 8.4 fL Low 8.5-12.2 [facility] Comment on above: Performed By: #### Chaparrita MONTEZ MGO, IPB #### U [facility] (DEFAULT) [address] [place] [address] 75037 Platelets (Bld) [#/Vol] 248 10*3/uL Normal 150-393 [facility] Comment on above: Performed By: #### Chaparrita HM7 MGO, IPB #### Dave [facility] (DEFAULT) [address] [place] [address] 22706 RBC (Bld) [#/Vol] 2.85 10*6/uL Low 3.91-5.04 [facility] Comment on above: Performed By: #### Chaparrita HM7, MGO, IPB #### U [facility] (DEFAULT) [address] [place] [address] 67594 RBC Distribution 14.2 % Normal 10.8-14.9 [facility] Comment on above: Performed By: #### C HM7, MGO, IPB #### [facility] (DEFAULT) [address] [place] [address] 78645 Segs + Bands Auto 71.4 % Normal [facility] Comment on above: Performed By: #### C HM7, MGO, IPB #### U [facility] (DEFAULT) [address] [place] [address] 93643 Segs + Bands,Absolute Auto 3.61 K/uL Normal 1.64-7.28 [facility] Comment on above: Performed By: #### C HM7, MGO, IPB #### [facility] (DEFAULT) [address] [place] [address] 90272 WBC (Bld) [#/Vol] 5.06 10*3/uL Normal 3.99-11.19 [facility] Comment on above: Performed By: #### C HM7, MGO, IPB #### Dave [facility] (DEFAULT) [address] [place] [address] 78349 CHEM 7 (LYTES,BUN,CREA,GLUC) on 08-08-2021 Anion gap [Moles/Vol] 10 mmol/L Normal 7-17 [facility] Comment on above: Performed By: #### C DIFP #### U [facility] (DEFAULT) [address] [place] [address] 75466 Chloride [Moles/Vol] 109 mmol/L High 98-108 [facility] Comment on above: Performed By: #### C DIFP #### U [facility] (DEFAULT) [address] [place] [address] 41031 CO2 [Moles/Vol] 27 mmol/L Normal 22-[address] [facility] Comment on above: Performed By: #### C DIFP #### [facility] (DEFAULT) [address] [place] [address] 04737 Creatinine [Mass/Vol] 0.82 mg/dL Normal 0.50-1.20 [facility] Comment on above: Performed By: #### C DIFP #### [facility] (DEFAULT) [address] [place] [address] 72895 EST GFR, >=60 Normal >=60 [facility] Comment on above: Performed By: #### C DIFP #### [facility] (DEFAULT) [address] [place] [address] 85086 EST GFR,Non >=60 Normal >=60 [facility] Comment on above: Performed By: #### C DIFP #### [facility] (DEFAULT) [address] [place] [address] 18110 Glucose [Mass/Vol] 107 mg/dL High 70-99 [facility] Comment on above: Performed By: #### C DIFP #### [facility] (DEFAULT) [address] [place] [address] 90618 Osmolality [Osmolality] 301 mosm/kg Normal 278-305 [facility] Comment on above: Performed By: #### C DIFP #### [facility] (DEFAULT) [address] [place] [address] 02065 Potassium [Moles/Vol] 4.2 mmol/L Normal 3.5-5.0 [facility] Comment on above: Performed By: #### C DIFP #### [facility] (DEFAULT) [address] [place] [address] 97873 Sodium [Moles/Vol] 142 mmol/L Normal 133-143 [facility] Comment on above: Performed By: #### C DIFP #### [facility] (DEFAULT) [address] [place] [address] 91058 Urea nitrogen [Mass/Vol] 24 mg/dL High 7-22 [facility] Comment on above: Performed By: #### C DIFP #### [facility] (DEFAULT) [address] [place] [address] 57975 Urea nitrogen/Creatinine [Mass ratio] 29 mg/mg Normal [facility] Comment on above: Performed By: #### C DIFP #### [facility] (DEFAULT) [address] [place] [address] CT [address] PELVISon CT ANGIO ABDOMEN PELVIS EXAM: CT ANGIOGRAPHY OF THE ABDOMEN/PELVIS/BILATERA L LOWER EXTREMITY RUNOFF WITHOUT AND WITH CONTRAST INDICATION: 75-year-old woman presenting with acute blood loss anemia from gastrointestinal source. TECHNIQUE: Unenhanced phase, arterial phase, portal venous phase, and systemic venous phase computed tomography from the lung bases to the ischial tuberosities was performed prior to and following the intravenous administration of 70 mL Omnipaque 350. Multiplanar and three-dimensional, including Maximum Intensity Projection (MIP) reconstructions, were created by the technologist with concurrent physician supervision. Three-dimensional reconstructions were also created and reviewed by the radiologist on a separate workstation. Dose optimization was performed using a combination of automated exposure control, iterative reconstruction, and/or adjustment of KV or mA. COMPARISON: None. FINDINGS: Visualized Chest: 1.6 cm hemispheric pleural-based nodule in the left lower lobe (series 9, image 36). Multivessel coronary artery calcifications. Liver: Normal enhancement and morphology. Patent portal and hepatic veins. Gallbladder/Biliary Tree: No radiopaque cholelithiasis. Normal caliber of the biliary ducts. Pancreas: Normal enhancement and morphology. Spleen: Normal enhancement and morphology. Splenic granulomata. 1.7 cm right adrenal nodule with Hounsfield units of 0 on the unenhanced phase, most consistent with an adenoma. Adrenal Glands: Normal enhancement and morphology. Kidneys/Collecting System: Symmetrically enhancing kidneys without hydronephrosis or nephrolithiasis. Right extrarenal pelvis. Bowel: Colonic diverticulosis most notable in the descending sigmoid colon. There is arterial contrast extravasation in the terminal ileum (series 7, image 179). No additional areas of contrast extravasation or evident. Mesentery/Peritoneum/Re troperitoneum: Aortoiliac atherosclerosis without aneurysm or dissection. At least mild ostial stenoses of the celiac artery and superior mesenteric arteries. At least mild ostial stenosis of the bilateral renal arteries. At least moderate ostial stenosis of the inferior mesenteric artery. Lymph Nodes: Normal-sized lymph nodes are visualized. Pelvis: Normally filled urinary bladder. Absent uterus. Bones: No aggressive osseous lesions. IMPRESSION: 1. Arterial contrast extravasation in the terminal ileum, consistent with ongoing hemorrhage. 2. 1.6 cm hemispheric pleural-based nodule in the left lower lobe. Comparison to previous examinations would be of benefit if available. Otherwise, recommend follow-up CT in 3 months versus PET/CT. 3. Additional findings as above. Dr. Emelia Abraham, discussed the finding of ongoing hemorrhage in the terminal ileum with the ordering clinician Dr. SHANTAL ELIZABETH on 08/08/2021 15:45. I personally viewed and interpreted these images and I have reviewed and approved this report. Normal [facility] HEPATIC FUNCTION PANELon Albumin [Mass/Vol] 3.2 g/dL Low 3.5-5.0 [facility] Comment on above: Performed By: #### C DIFP #### [facility] (DEFAULT) [address] [address] ALP [Catalytic activity/Vol] 53 U/L Normal 32-126 [facility] Comment on above: Performed By: #### C DIFP #### [facility] (DEFAULT) [address] [address] ALT [Catalytic activity/Vol] 9 U/L Normal 9-48 [facility] Comment on above: Performed By: #### C DIFP #### [facility] (DEFAULT) [address] [address] AST [Catalytic activity/Vol] 17 U/L Normal 14-40 [facility] Comment on above: Performed By: #### C DIFP #### [facility] (DEFAULT) [address] [address] Bilirubin [Mass/Vol] 0.3 mg/dL Normal <1.5 [facility] Comment on above: Performed By: #### C DIFP #### [facility] (DEFAULT) [address] [address] Bilirubin.indirect [Mass/Vol] 0.1 mg/dL Normal <0.3 [facility] Comment on above: Performed By: #### C DIFP #### [facility] (DEFAULT) [address] [place] [address] 13408 Protein [Mass/Vol] 4.7 g/dL Low 6.4-8.3 [facility] Comment on above: Performed By: #### C DIFP #### [facility] (DEFAULT) [address] [place] [address]39 PT,INR,PTTon 08-08-2021 aPTT Coag (Bld) [Time] 26.8 s Normal 24.0-34.3 [facility] Comment on above: Performed By: #### P TPTT ####[facility] (DEFAULT)[address] [place] [address]707 INR Coag (PPP) [Relative time] 1.1 {INR} Normal 0.9-1.1 [facility] Comment on above: Performed By: #### P TPTT ####[facility] (DEFAULT)[address] [place] [address] 66812 PT Coag (PPP) [Time] 13.6 s Normal 11.9-14.2 [facility] Comment on above: Performed By: #### P TPTT ####[facility] (DEFAULT)[address] [address] TSH W/FT4 REFLEXon 1 TSH 1.153 uIU/mL Normal 0.550-4.780 [facility] Comment on above: Performed By: #### C DIFP #### [facility] (DEFAULT) [address] [address] TYPE AND SCREENon 08-08-2021 ABO/RH(D) TYPE Positive Normal [facility] Comment on above: Performed By: #### X M #### [facility] (DEFAULT) [address] [place] [address] Basic metabolic 2000 panelOr dered By: Joselyn Urbina on 04-20-2021 Anion gap [Moles/Vol] 6 mmol/L Low 10 - 2 0 mmol/L [facility] Calcium [Mass/Vol] 8.7 mg/dL 8.4 - 10. 2 mg/dL [facility] Chloride [Moles/Vol] 105 mmol/L 98 - 10 8 mmol/L [facility] Creatinine [Mass/Vol] 1.14 mg/dL 0.60 - 1.20 [facility] GFR/1.73 sq M.predicted CKD-EPI (S/P/Bld) [Vol rate/Area] 47 Low >=60 mL/min/1.[address] [facility] Glucose [Mass/Vol] 103 mg/dL High 65 - 99 mg/dL [facility] HCO3 [Moles/Vol] 30 mmol/L 21 - 32 mmol/L [facility] Interpretation and review of laboratory results Abnormal [facility] Potassium [Moles/Vol] 3.3 mmol/L Low 3.5 - 5.1 mmol/L [facility] Sodium [Moles/Vol] 138 mmol/L 135 - 145 mmol/L [facility] Urea nitrogen [Mass/Vol] 20 mg/dL 8 - 25 mg/dL [facility] Urea nitrogen/Creatinine [Mass ratio] 17.5 mg/mg [facility] The eGFR should be u sed for monitoring renal function only and not for medication dosing. [facility] ECHOCARDIOGRAM COMPLETEon ECHOCARDIOGRAM COMPLETE Patient Info Name: BHARTI AKBAR Age: 75 years : 1945 Gender: Female Ht: 160 cm Wt: 51 kg BSA: 1.51 m2 HR: 71 bpm BP: 157 / 63 mmHg Heart Rhythm: Sinus Rhythm Technical Quality: Good Exam Date: 04/20/2021 3:01 PM Patient Status: Inpatient College Teacher: Natalie Brenner RCDS Exam Type: ECHOCARDIOGRAM COMPLETE Study Info Indications R07.9 - Chest pain, unspecified Referring Physician: RAJEEV REESE ; [id number] BMI: 20.02 kg/m2 Summary 1. Normal left ventricular chamber size. Systolic function is normal with no regional wall motion abnormalities with an estimated ejection fraction of 60-65%. 2. Right ventricular chamber dimension is normal. Right ventricular systolic function is normal. 3. Left atrial chamber is moderately enlarged. 4. There is mild aortic valve regurgitation. 5. There is no pulmonary hypertension, estimated right ventricle systolic pressure is 27 mmHg. History/Risk Factors Hypertension: Yes Dyslipidemia: Yes Coronary Artery Disease (CAD) Yes Tobacco Use: Never History/Risk Factors chest pain. Prior Interventions PCI: Yes Date of PCI: 04/19/2021 Procedure(s): Complete two-dimensional, color flow and Doppler transthoracic echocardiogram is performed. Left Ventricle The left ventricular diastolic function is indeterminate. Normal left ventricular chamber size. Systolic function is normal with no regional wall motion abnormalities with an estimated ejection fraction of 60-65%. There is mild concentric remodeling. Right Ventricle Right ventricular chamber dimension is normal. Right ventricular systolic function is normal. Left Atria Left atrial chamber is moderately enlarged. Right Atria Right atrial chamber dimension is normal. Aortic Valve The aortic valve is trileaflet. There is mild aortic valve sclerosis. There is no aortic valve stenosis with a peak velocity of 1.6 m/s, mean gradient of 5 mmHg, and aortic valve area of 1.5 cm2. There is mild aortic valve regurgitation. Pulmonic Valve The pulmonic valve is not well visualized. There is no pulmonic valve stenosis. There is no pulmonic regurgitation. Mitral Valve The mitral valve has normal leaflets. There is no mitral valve stenosis. There is trace mitral valve regurgitation. Tricuspid Valve The tricuspid valve leaflets are normal. There is no significant tricuspid valve stenosis. There is trace tricuspid valve regurgitation. There is no pulmonary hypertension, estimated right ventricle systolic pressure is 27 mmHg. Pericardium/Pleural The pericardium appears normal. There is no pericardial effusion. Inferior Vena Cava Normal inferior vena cava with >50% collapse upon inspiration consistent with normal right atrial pressure. Aorta The aortic measurements are indexed to age and body surface area. The aortic root is normal measuring 2.8 cm with an index of 1.9 cm/m2. The proximal ascending aorta is normal measuring 2.5 cm with an index of 1.7 cm/m2. Wall Motion Scoring Wall Motion Scoring Index: 1.00 Left Ventricular Outflow Tract - Name Value Normal - LVOT 2D - LVOT Diameter 1.9 cm LVOT Doppler - LVOT Peak Velocity 0.9 m/s LVOT Peak Gradient 3 mmHg LVOT Mean Gradient 2 mmHg LVOT VTI 23 cm LVOT VTI/AV VTI Ratio 0.5 LVOT Stroke Volume 64 ml LVOT Stroke Index 42.25 ml/m2 LVOT CO 11.0 l/min LVOT CI 7.3 L/min/m2 Pulmonic Valve - Name Value Normal - PV 2D - RVOT Diameter (2D) 1.7 cm 1.7-2.7 PV Doppler - PV Peak Velocity 0.87 m/s PV Peak Gradient 3 mmHg PV Mean Gradient 2 mmHg Mitral Valve - Name Value Normal - MV Doppler - MV Peak Velocity 0.97 m/s MV Peak Gradient 4 mmHg MV Mean Gradient 2 mmHg MV VTI 31 cm MV Decel [place] 337 cm/s2 MV PHT 75 ms MV Area (PHT) 2.9 cm2 4.0-5.0 MV Area (Cont Eq VTI) 2.1 cm2 MV Area Index (Cont Eq VTI) 1.38 cm2/m2 MV Diastolic Function - MV E Peak Velocity 1 m/s MV A Peak Velocity 1 m/s MV E/A 0.9 MV Decel Time 260 ms MV Annular TDI (more content not included)... Normal [facility] ECHOCARDIOGRAM COMPLETEOrder ed By: Marietta Beltran on 04-20-2021 Aortic valve area 1.527 cm [facility] AV mean gradient 5.74807 mmHg [facility] AV peak gradient 8.56557 mmHg [facility] EF 78.5607 % [facility] Patient Info Name: Jaguar AKBAR Age: 75 years : 1945 Gender: Female Ht: 160 cm Wt: 51 kg BSA: 1.51 m2 HR: 71 bpm BP: 157 / 63 mmHg Heart Rhythm: Sinus Rhythm Technical Quality: Good Exam Date: 04/20/2021 3:01 PM Patient Status: Inpatient College Teacher: Natalie Brenner RCDS Exam Type: ECHOCARDIOGRAM COMPLETE Study Info Indications R07.9 - Chest pain, unspecified Referring Physician: RAJEEV REESE ; [id number] BMI: 20.02 kg/m2 Summary 1. Normal left ventricular chamber size. Systolic function is normal with no regional wall motion abnormalities with an estimated ejection fraction of 60-65%. 2. Right ventricular chamber dimension is normal. Right ventricular systolic function is normal. 3. Left atrial chamber is moderately enlarged. 4. There is mild aortic valve regurgitation. 5. There is no pulmonary hypertension, estimated right ventricle systolic pressure is 27 mmHg. History/Risk Factors Hypertension: Yes Dyslipidemia: Yes Coronary Artery Disease (CAD) Yes Tobacco Use: Never History/Risk Factors chest pain. Prior Interventions PCI: Yes Date of PCI: 04/19/2021 Procedure(s): Complete two-dimensional, color flow and Doppler transthoracic echocardiogram is performed. Left Ventricle The left ventricular diastolic function is indeterminate. Normal left ventricular chamber size. Systolic function is normal with no regional wall motion abnormalities with an estimated ejection fraction of 60-65%. There is mild concentric remodeling. Right Ventricle Right ventricular chamber dimension is normal. Right ventricular systolic function is normal. Left Atria Left atrial chamber is moderately enlarged. Right Atria Right atrial chamber dimension is normal. Aortic Valve The aortic valve is trileaflet. There is mild aortic valve sclerosis. There is no aortic valve stenosis with a peak velocity of 1.6 m/s, mean gradient of 5 mmHg, and aortic valve area of 1.5 cm2. There is mild aortic valve regurgitation. Pulmonic Valve The pulmonic valve is not well visualized. There is no pulmonic valve stenosis. There is no pulmonic regurgitation. Mitral Valve The mitral valve has normal leaflets. There is no mitral valve stenosis. There is trace mitral valve regurgitation. Tricuspid Valve The tricuspid valve leaflets are normal. There is no significant tricuspid valve stenosis. There is trace tricuspid valve regurgitation. There is no pulmonary hypertension, estimated right ventricle systolic pressure is 27 mmHg. Pericardium/Pleural The pericardium appears normal. There is no pericardial effusion. Inferior Vena Cava Normal inferior vena cava with >50% collapse upon inspiration consistent with normal right atrial pressure. Aorta The aortic measurements are indexed to age and body surface area. The aortic root is normal measuring 2.8 cm with an index of 1.9 cm/m2. The proximal ascending aorta is normal measuring 2.5 cm with an index of 1.7 cm/m2. Wall Motion Scoring Wall Motion Scoring Index: 1.00 Left Ventricular Outflow Tract - Name Value Normal - LVOT 2D - LVOT Diameter 1.9 cm LVOT Doppler - LVOT Peak Velocity 0.9 m/s LVOT Peak Gradient 3 mmHg LVOT Mean Gradient 2 mmHg LVOT VTI 23 cm LVOT VTI/AV VTI Ratio 0.5 LVOT Stroke Volume 64 ml LVOT Stroke Index 42.25 ml/m2 LVOT CO 11.0 l/min LVOT CI 7.3 L/min/m2 Pulmonic Valve - Name Value Normal - PV 2D - RVOT Diameter (2D) 1.7 cm 1.7-2.7 PV Doppler - PV Peak Velocity 0.87 m/s PV Peak Gradient 3 mmHg PV Mean Gradient 2 mmHg Mitral Valve - Name Value Normal - MV Doppler - MV Peak Velocity 0.97 m/s (more content not included)... [id number] Interface, Rad In [facility] - 04/20/2021 4:08 PM EDT Patient Info Name: BHARTI AKBAR Age: 75 years : 1945 Gender: Female Ht: 160 cm Wt: 51 kg BSA: 1.51 m2 HR: 71 bpm BP: 157 / 63 mmHg Heart Rhythm: Sinus Rhythm Technical Quality: Good Exam Date: 04/20/2021 3:01 PM Patient Status: Inpatient College Teacher: Natalie Brenner RCDS Exam Type: ECHOCARDIOGRAM COMPLETE Study Info Indications R07.9 - Chest pain, unspecified Referring Physician: RAJEEV REESE ; [id number] BMI: 20.02 kg/m2 Summary 1. Normal left ventricular chamber size. Systolic function is normal with no regional wall motion abnormalities with an estimated ejection fraction of 60-65%. 2. Right ventricular chamber dimension is normal. Right ventricular systolic function is normal. 3. Left atrial chamber is moderately enlarged. 4. There is mild aortic valve regurgitation. 5. There is no pulmonary hypertension, estimated right ventricle systolic pressure is 27 mmHg. History/Risk Factors Hypertension: Yes Dyslipidemia: Yes Coronary Artery Disease (CAD) Yes Tobacco Use: Never History/Risk Factors chest pain. Prior Interventions PCI: Yes Date of PCI: 04/19/2021 Procedure(s): Complete two-dimensional, color flow and Doppler transthoracic echocardiogram is performed. Left Ventricle The left ventricular diastolic function is indeterminate. Normal left ventricular chamber size. Systolic function is normal with no regional wall motion abnormalities with an estimated ejection fraction of 60-65%. There is mild concentric remodeling. Right Ventricle Right ventricular chamber dimension is normal. Right ventricular systolic function is normal. Left Atria Left atrial chamber is moderately enlarged. Right Atria Right atrial chamber dimension is normal. Aortic Valve The aortic valve is trileaflet. There is mild aortic valve sclerosis. There is no aortic valve stenosis with a peak velocity of 1.6 m/s, mean gradient of 5 mmHg, and aortic valve area of 1.5 cm2. There is mild aortic valve regurgitation. Pulmonic Valve The pulmonic valve is not well visualized. There is no pulmonic valve stenosis. There is no pulmonic regurgitation. Mitral Valve The mitral valve has normal leaflets. There is no mitral valve stenosis. There is trace mitral valve regurgitation. Tricuspid Valve The tricuspid valve leaflets are normal. There is no significant tricuspid valve stenosis. There is trace tricuspid valve regurgitation. There is no pulmonary hypertension, estimated right ventricle systolic pressure is 27 mmHg. Pericardium/Pleural The pericardium appears normal. There is no pericardial effusion. Inferior Vena Cava Normal inferior vena cava with >50% collapse upon inspiration consistent with normal right atrial pressure. Aorta The aortic measurements are indexed to age and body surface area. The aortic root is normal measuring 2.8 cm with an index of 1.9 cm/m2. The proximal ascending aorta is normal measuring 2.5 cm with an index of 1.7 cm/m2. Wall Motion Scoring Wall Motion Scoring Index: 1.00 Left Ventricular Outflow Tract - Name Value Normal - LVOT 2D - LVOT Diameter 1.9 cm LVOT Doppler - LVOT Peak Velocity 0.9 m/s LVOT Peak Gradient 3 mmHg LVOT Mean Gradient 2 mmHg LVOT VTI 23 cm LVOT VTI/AV VTI Ratio 0.5 LVOT Stroke Volume 64 ml LVOT Stroke Index 42.25 ml/m2 LVOT CO 11.0 l/min LVOT CI 7.3 L/min/m2 Pulmonic Valve - Name Value Normal - PV 2D - RVOT Diameter (2D) 1.7 cm 1.7-2.7 PV Doppler - PV Peak Velocity 0.87 m/s PV Peak Gradient 3 mmHg PV Mean Gradient 2 mmHg Mitral Valve - Name Value Normal - MV Doppler - MV Peak Velocity 0.97 m/s MV Peak Gradient 4 mmHg MV Mean Gradient 2 mmHg MV VTI 31 cm MV Decel [place] 337 cm/s2 MV PHT 75 ms MV Area (PHT) 2.9 cm2 4.0-5.0 MV Area (Cont Eq VTI) 2.1 cm2 MV Area Index (Cont Eq VTI) 1.38 cm2/m2 MV Diastolic Function (more content not included)... [facility] Potassium LevelOrdered By: Luis Castellanos on 04-20-2021 Potassium [Moles/Vol] 4.7 mmol/L 3.5 - 5.1 mmol/L [facility] Potassium LevelOrdered By: Pete Salazar on 04-20-2021 Potassium [Moles/Vol] 3.3 mmol/L Low 3.5 - 5.1 mmol/L [facility] Potassium [Moles/Vol]Ordered By: Alivia Castellanos on 04-20-2021 Interpretation and review of laboratory results Normal [facility] Potassium [Moles/Vol]Ordered By: Shantal Salazar on 04-20-2021 Interpretation and review of laboratory results Abnormal [facility] US DOPPLER CAROTIDon 021 US DOPPLER CAROTID Patient Info Name: BHARTI AKBAR Age: 75 years : 1945 Gender: Female Exam Date: 04/20/2021 7:38 AM Patient Status: Inpatient Senior Counsel: Eileen Lopez, [place], RVS Referring Physician: RAJEEV REESE ; Indications 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 Procedure Description 62836 Duplex examination using B-mode, color and spectral Doppler of extracranial arteries; complete bilateral study. NASCET criteria is used when performing imaging correlation with carotid duplex interpretation. Conclusions * Right. * Moderate (50-69%) stenosis in the right internal carotid artery. * Right vertebral artery is patent with antegrade flow. * No evidence of stenosis in the right common carotid, external carotid and subclavian arteries. * Left. * Moderate (50-69%) stenosis in the left internal carotid artery. * Left vertebral artery is patent with antegrade flow. * Elevated velocity suggestive of stenosis in the left subclavian artery. * No evidence of stenosis in the left common carotid and external carotid arteries. Recommendations * Based upon this study, Advanced Carotid Imaging does not appear to be warranted. Clinical correlation advised. Measurements - Name Value - Right PSV - Right Prox CCA PSV 69 cm/s Right Mid CCA PSV 81 cm/s Right Distal CCA PSV 104 cm/s Right Prox ICA PSV 160 cm/s Right Mid ICA PSV 112 cm/s Right Distal ICA PSV 126 cm/s Right ECA PSV 160 cm/s Right Vert PSV 98 cm/s BC PSV 68 cm/s Right Prox SCA PSV 135 cm/s Rt ICA/CCA Ratio 1.5 Measurements - Name Value - Right EDV - Right Prox CCA EDV 15 cm/s Right Mid CCA EDV 22 cm/s Right Distal CCA EDV 28 cm/s Right Prox ICA EDV 32 cm/s Right Mid ICA EDV 34 cm/s Right Distal ICA EDV 41 cm/s Right ECA EDV 4 cm/s Right Vert EDV 14 cm/s BC EDV 18 cm/s Right Prox SCA EDV 1 cm/s Measurements - Name Value - Left PSV - Left Prox CCA PSV 100 cm/s Left Mid CCA PSV 87 cm/s Left Distal CCA PSV 94 cm/s Left Prox ICA PSV 153 cm/s Left Mid ICA PSV 141 cm/s Left Distal ICA PSV 127 cm/s Left ECA PSV 150 cm/s Left Vert PSV 65 cm/s Left Prox SCA PSV 274 cm/s Lt ICA/CCA Ratio 1.6 Measurements - Name Value - Left EDV - Left Prox CCA EDV 18 cm/s Left Mid CCA EDV 22 cm/s Left Distal CCA EDV 23 cm/s Left Prox ICA EDV 27 cm/s Left Mid ICA EDV 44 cm/s Left Distal ICA EDV 33 cm/s Left ECA EDV 4 cm/s Left Vert EDV 19 cm/s Left Prox SCA EDV 7 cm/s Right Findings * No plaque noted in the right common carotid artery. * Calcific plaque noted in the right internal carotid artery. * Calcific plaque noted in the right external carotid artery. Left Findings * No plaque noted in the left common carotid artery. * Heterogeneous plaque noted in the left internal carotid artery. * Heterogeneous plaque noted in the left external carotid artery. Risk Factors Patient has a history of hypertension, hyperlipidemia and CAD. . 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 NASCET criteria is used when performing imaging correlation with carotid duplex interpretation. Conclusions * Right. * Moderate (50-69%) stenosis in the right internal carotid artery. * Right vertebral artery is patent with antegrade flow. * No evidence of stenosis in the right common carotid, external carotid and subclavian arteries. * Left. * Moderate (50-69%) stenosis in the left internal carotid artery. * Left vertebral artery is patent with antegrade flow. * Elevated velocity suggestive of stenosis in the left subclavian artery. * No evidence of stenosis in the left common carotid and external carotid arteries. Recommendations * Based upon this study, Advanced Carotid Imaging does not appear to be warranted. Clinical correlation advised. Measurements - Name Value - Right PSV - Right Prox CCA PSV 69 cm/s Right Mid CCA PSV 81 cm/s Right Distal CCA PSV 104 cm/s Right Prox ICA PSV 160 cm/s Right Mid ICA PSV 112 cm/s Right Distal ICA PSV 126 cm/s Right ECA PSV 160 cm/s Right Vert PSV 98 cm/s BC PSV 68 cm/s Right Prox SCA PSV 135 cm/s Rt ICA/CCA Ratio 1.5 Measurements - Name Value - Right EDV - Right Prox CCA EDV 15 cm/s Right Mid CCA EDV 22 cm/s Right Distal CCA EDV 28 cm/s Right Prox ICA EDV 32 cm/s Right Mid ICA EDV 34 cm/s Right Distal ICA EDV 41 cm/s Right ECA EDV 4 cm/s Right Vert EDV 14 cm/s BC EDV 18 cm/s Right Prox SCA EDV 1 cm/s Measurements - Name Value - Left PSV - Left Prox CCA PSV 100 cm/s Left Mid CCA PSV 87 cm/s Left Distal CCA PSV 94 cm/s Left Prox ICA PSV 153 cm/s Left Mid ICA PSV 141 cm/s Left Distal ICA PSV 127 cm/s Left ECA PSV 150 cm/s Left Vert PSV 65 cm/s Left Prox SCA PSV 274 cm/s Lt ICA/CCA Ratio 1.6 Measurements - Name Value - Left EDV - Left Prox CCA EDV 18 cm/s Left Mid CCA EDV 22 cm/s Left Distal CCA EDV 23 cm/s Left Prox ICA EDV 27 cm/s Left Mid ICA EDV 44 cm/s Left Distal ICA EDV 33 cm/s Left ECA EDV 4 cm/s Left Vert EDV 19 cm/s Left Prox SCA EDV 7 cm/s Right Findings * No plaque noted in the right common carotid artery. * Calcific plaque noted in the right internal carotid artery. * Calcific plaque noted in the right external carotid artery. Left Findings * No plaque noted in the left common carotid artery. * Heterogeneous plaque noted in the left interna (more content not included)... 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 NASCET criteria is used when performing imaging correlation with carotid duplex interpretation. Conclusions * Right. * Moderate (50-69%) stenosis in the right internal carotid artery. * Right vertebral artery is patent with antegrade flow. * No evidence of stenosis in the right common carotid, external carotid and subclavian arteries. * Left. * Moderate (50-69%) stenosis in the left internal carotid artery. * Left vertebral artery is patent with antegrade flow. * Elevated velocity suggestive of stenosis in the left subclavian artery. * No evidence of stenosis in the left common carotid and external carotid arteries. Recommendations * Based upon this study, Advanced Carotid Imaging does not appear to be warranted. Clinical correlation advised. Measurements - Name Value - Right PSV - Right Prox CCA PSV 69 cm/s Right Mid CCA PSV 81 cm/s Right Distal CCA PSV 104 cm/s Right Prox ICA PSV 160 cm/s Right Mid ICA PSV 112 cm/s Right Distal ICA PSV 126 cm/s Right ECA PSV 160 cm/s Right Vert PSV 98 cm/s BC PSV 68 cm/s Right Prox SCA PSV 135 cm/s Rt ICA/CCA Ratio 1.5 Measurements - Name Value - Right EDV - Right Prox CCA EDV 15 cm/s Right Mid CCA EDV 22 cm/s Right Distal CCA EDV 28 cm/s Right Prox ICA EDV 32 cm/s Right Mid ICA EDV 34 cm/s Right Distal ICA EDV 41 cm/s Right ECA EDV 4 cm/s Right Vert EDV 14 cm/s BC EDV 18 cm/s Right Prox SCA EDV 1 cm/s Measurements - Name Value - Left PSV - Left Prox CCA PSV 100 cm/s Left Mid CCA PSV 87 cm/s Left Distal CCA PSV 94 cm/s Left Prox ICA PSV 153 cm/s Left Mid ICA PSV 141 cm/s Left Distal ICA PSV 127 cm/s Left ECA PSV 150 cm/s Left Vert PSV 65 cm/s Left Prox SCA PSV 274 cm/s Lt ICA/CCA Ratio 1.6 Measurements - Name Value - Left EDV - Left Prox CCA EDV 18 cm/s Left Mid CCA EDV 22 cm/s Left Distal CCA EDV 23 cm/s Left Prox ICA EDV 27 cm/s Left Mid ICA EDV 44 cm/s Left Distal ICA EDV 33 cm/s Left ECA EDV 4 cm/s Left Vert EDV 19 cm/s Left Prox SCA EDV 7 cm/s Right Findings * No plaque noted in the right common carotid artery. * Calcific plaque noted in the right internal carotid artery. * Calcific plaque noted in the right external carotid artery. Left Findings * No plaque noted in the left common carotid artery. * Heterogeneous plaque noted in the left internal carotid artery. * Heterogeneous plaque noted in the left external carotid artery. Risk Factors Patient has a history of hypertension, hyperlipidemia and CAD. . Report Signatures Finalized by YOLANDA Ceja DO on 04/20/2021 04:26 PM [facility] Basic metabolic 2000 panelOr dered By: Joselyn Urbina on 04-19-2021 Anion gap [Moles/Vol] 7 mmol/L Low 10 - 2 0 mmol/L [facility] Calcium [Mass/Vol] 8.3 mg/dL Low 8.4 - 10. 2 mg/dL [facility] Chloride [Moles/Vol] 104 mmol/L 98 - 10 8 mmol/L [facility] Creatinine [Mass/Vol] 0.78 mg/dL 0.60 - 1.20 [facility] GFR/1.73 sq M.predicted CKD-EPI (S/P/Bld) [Vol rate/Area] 74 >=60 mL/min/1.[address] [facility] Glucose [Mass/Vol] 94 mg/dL 65 - 99 mg/dL [facility] HCO3 [Moles/Vol] 34 mmol/L High 21 - 32 mmol/L [facility] Interpretation and review of laboratory results Abnormal [facility] Potassium [Moles/Vol] 3.8 mmol/L 3.5 - 5.1 mmol/L [facility] Sodium [Moles/Vol] 141 mmol/L 135 - 145 mmol/L [facility] Urea nitrogen [Mass/Vol] 21 mg/dL 8 - 25 mg/dL [facility] Urea nitrogen/Creatinine [Mass ratio] 26.9 mg/mg High [facility] The eGFR should be u sed for monitoring renal function only and not for medication dosing. [facility] Cardiac catheterizationOrder ed By: Joselyn Urbina on 04-19-[address] [facility] ECG 12-LEADOrdered By: Antonio Tian on 04-19-2021 Atrial Rate [address] [facility] P [place] [address] [facility] P-R Interval [address] [facility] Q-T Interval [address] [facility] QRS Duration [address] [facility] QTC Calculation (Bezet) [address] [facility] R [place] [address] [facility] T [place] [address] [facility] Ventricular Rate 72 BPM [facility] Normal sinus rhythm Normal ECG Confirmed by Sudheer Mandel MD ([id number]) on 04/19/2021 4:55:59 PM [facility] MR BRAIN WITHOUT CONTRASTOrd ered By: Og Blancas on 04-19-2021 No acute process Workstation ID: [id number] [facility] EXAMINATION: MR BRAIN WITHOUT CONTRAST HISTORY: ORDERING SYSTEM PROVIDED HISTORY: TIA, initial exam, TECHNOLOGIST PROVIDED HISTORY: Illness/Other Reason for exam: Speech problems last night, slurred speech and aphasia Encounter Type: Subsequent/Follow-up Additional signs and symptoms: No Hx of CA or CVA ORDERING SYSTEM PROVIDED DIAGNOSIS CODES: COMPARISON: None TECHNIQUE: Multiplanar multisequence MR imaging of brain noncontrast FINDINGS: Age-appropriate atrophy with moderate subcortical and periventricular white microangiopathy. Chronic periventricular lacunar infarct on the right. No acute infarct, hemorrhage mass or mass effect. There are couple of chronic microhemorrhages left frontal and parietal lobes. Sinuses and mastoids are clear except for trace mucosal thickening in the ethmoids. Orbits and internal auditory canals are unremarkable. Pituitary is normal size. [facility] Interface, Rad In Fu ji Speechq - 04/19/2021 10:32 AM EDT EXAMINATION: MR BRAIN WITHOUT CONTRAST HISTORY: ORDERING SYSTEM PROVIDED HISTORY: TIA, initial exam, TECHNOLOGIST PROVIDED HISTORY: Illness/Other Reason for exam: Speech problems last night, slurred speech and aphasia Encounter Type: Subsequent/Follow-up Additional signs and symptoms: No Hx of CA or CVA ORDERING SYSTEM PROVIDED DIAGNOSIS CODES: COMPARISON: None TECHNIQUE: Multiplanar multisequence MR imaging of brain noncontrast FINDINGS: Age-appropriate atrophy with moderate subcortical and periventricular white microangiopathy. Chronic periventricular lacunar infarct on the right. No acute infarct, hemorrhage mass or mass effect. There are couple of chronic microhemorrhages left frontal and parietal lobes. Sinuses and mastoids are clear except for trace mucosal thickening in the ethmoids. Orbits and internal auditory canals are unremarkable. Pituitary is normal size. IMPRESSION: No acute process Workstation ID: [id number] [facility] ECG 12-LEADOrdered By: Moo Zuniga on 04-18-2021 Atrial Rate [address] [facility] P [place] [address] [facility] P-R Interval [address] [facility] Q-T Interval [address] [facility] QRS Duration [address] [facility] QTC Calculation (Bezet) [address] [facility] R [place] [address] [facility] T [place] [address] [facility] Ventricular Rate 63 BPM [facility] Normal sinus rhythm Normal ECG Confirmed by Joselyn Urbina MD ([id number]) on 04/18/2021 8:06:48 AM [facility] MR BRAIN WITHOUT CONTRASTon 04-18-2021 MR BRAIN WITHOUT CONTRAST EXAMINATION: MR BRAIN WITHOUT CONTRAST HISTORY: ORDERING SYSTEM PROVIDED HISTORY: TIA, initial exam, TECHNOLOGIST PROVIDED HISTORY: Illness/Other Reason for exam: Speech problems last night, slurred speech and aphasia Encounter Type: Subsequent/Follow-up Additional signs and symptoms: No Hx of CA or CVA ORDERING SYSTEM PROVIDED DIAGNOSIS CODES: COMPARISON: None TECHNIQUE: Multiplanar multisequence MR imaging of brain noncontrast FINDINGS: Age-appropriate atrophy with moderate subcortical and periventricular white microangiopathy. Chronic periventricular lacunar infarct on the right. No acute infarct, hemorrhage mass or mass effect. There are couple of chronic microhemorrhages left frontal and parietal lobes. Sinuses and mastoids are clear except for trace mucosal thickening in the ethmoids. Orbits and internal auditory canals are unremarkable. Pituitary is normal size. IMPRESSION: No acute process Workstation ID: [id number] Dictated by: ANJEL HUFFMAN on MonApr 19, 2021 10:30:10 AM EDT Transcribed by: ANJEL HUFFMAN on MonApr 19, 2021 10:30:10 AM EDT Finalized by: ANJEL HUFFMAN on MonApr 19, 2021 10:30:10 AM EDT Normal [facility] Comment on above: Order Comment: Injur y/Trauma or Illness?:Illness/Other How long have you had these symptoms (acute/chronic)?:Acute Reason for exam?:Speech problems last night, slurred speech and aphasia Type of Exam?:Subsequent/Follow-up Additional signs and symptoms?:No Hx of CA or CVA TROPONINOrdered By: Moo hill on 04-18-2021 Interp Troponin I Delta Change No biomarker evidence of cardiac injury. [facility] Troponin I.cardiac [Mass/Vol] ng/mL <=45 ng/L [facility] Troponin I Interpretation Normal [facility] Troponin I.cardiac [Mass/Vol] ng/mL <=45 ng/L [facility] XR Hand - bilateral PA and L ateral and Obliqueon 04-15-2021 IMPRESSION: Chronic postsurgical and degenerative changes as detailed in report. Transformation Specialist: FLORINDA Transcribe Date/Time: Apr 15 2021 9:15P Dictated by : SHANTAL SARMIENTO MD This examination was interpreted and the report reviewed and electronically signed by: SHANTAL SARMIENTO MD on Apr 15 2021 9:17PM [facility] DIVISION OF RADIOLOGY * * *Final Report* * * DATE OF EXAM: Apr 15 2021 2:32PM WOX [id number] - XR HAND 3V PA/LAT/OBL IAN / PROCEDURE REASON: multiple diagnoses * * * * Physician Interpretation * * * * EXAMINATION: XR HAND 3V PA/LAT/OBL IAN HISTORY: Bilateral thumb CMC joint pain increasing over time. Bilateral hand pain TECHNIQUE: XR HAND 3V PA/LAT/OBL IAN Laterality: BILATERAL Number of different views (projections): 3 M: XB_1 COMPARISON: Comparison is made to prior wrist study dated 01/15/2019 RESULT: AP, lateral and oblique views of the bilateral hands shows no acute osseous, articular or soft tissue abnormality. There is osteopenia and degenerative change with asymmetric joint space narrowing and periarticular osteophytosis involving the distal interphalangeal joints of the second through fifth digits and the interphalangeal joint of the thumb. There is also joint space narrowing, bony eburnation and periarticular osteophytosis of the left first metacarpal carpal and triscaphe joints. Postsurgical changes of trapezium resection arthroplasty noted at the base of the right first metacarpal carpal articulations. Findings are compatible with osteoarthritis. There is acute superimposed erosive process. DIVISION OF RADIOLOGY Provider, [facility] - 04/15/2021 * * *Final Report* * * DATE OF EXAM: Apr 15 2021 2:32PM WOX [id number] - XR HAND 3V PA/LAT/OBL IAN / PROCEDURE REASON: multiple diagnoses * * * * Physician Interpretation * * * * EXAMINATION: XR HAND 3V PA/LAT/OBL IAN HISTORY: Bilateral thumb CMC joint pain increasing over time. Bilateral hand pain TECHNIQUE: XR HAND 3V PA/LAT/OBL IAN Laterality: BILATERAL Number of different views (projections): 3 M: XB_1 COMPARISON: Comparison is made to prior wrist study dated 01/15/2019 RESULT: AP, lateral and oblique views of the bilateral hands shows no acute osseous, articular or soft tissue abnormality. There is osteopenia and degenerative change with asymmetric joint space narrowing and periarticular osteophytosis involving the distal interphalangeal joints of the second through fifth digits and the interphalangeal joint of the thumb. There is also joint space narrowing, bony eburnation and periarticular osteophytosis of the left first metacarpal carpal and triscaphe joints. Postsurgical changes of trapezium resection arthroplasty noted at the base of the right first metacarpal carpal articulations. Findings are compatible with osteoarthritis. There is acute superimposed erosive process. IMPRESSION IMPRESSION: Chronic postsurgical and degenerative changes as detailed in report. Transformation Specialist: FLORINDA Transcribe Date/Time: Apr 15 2021 9:15P Dictated by : SHANTAL SARMIENTO MD This examination was interpreted and the report reviewed and electronically signed by: SHANTAL SARMIENTO MD on Apr 15 2021 9:17PM EST [facility] Radiology Study observation (narrative) [facility] XR Hand - bilateral PA and L ateral and ObliqueOrdered By: [facility] Provider on 04-15-2021 [facility] XR Pelvis and Hip - left AP and Lateral frogon 04-13-2021 IMPRESSION: Mild left hip osteoarthritis. No acute osseous findings. Transformation Specialist: PSCB Transcribe Date/Time: Apr 13 2021 1:06P Dictated by : ELLIE PAINTER MD This examination was interpreted and the report reviewed and electronically signed by: ELLIE PAINTER MD on Apr 13 2021 1:07PM [facility] DIVISION OF RADIOLOGY * * *Final Report* * * DATE OF EXAM: Apr 13 2021 10:38AM WOX [id number] - XR HIP 3V PELV+ AP/LAT LT / PROCEDURE REASON: Left hip pain * * * * Physician Interpretation * * * * EXAMINATION: XR HIP 3V PELV+ AP/LAT LT CLINICAL HISTORY: Posteiror and anterior left hip pain that radiates x down leg x 3-4 weeks without injury Left hip pain Technique: XR HIP 3V PELV+ AP/LAT LT -- LEFT with 3 views on 3 images Comparison: 06/21/2019 RESULT: No fracture or dislocation. Mild degenerative changes left hip with inferomedial joint space narrowing and small osteophytes. SI joints and pubic symphysis are intact. Degenerative changes in the lower lumbar spine. DIVISION OF RADIOLOGY Provider, [facility] - 04/13/2021 * * *Final Report* * * DATE OF EXAM: Apr 13 2021 10:38AM WOX [id number] - XR HIP 3V PELV+ AP/LAT LT / PROCEDURE REASON: Left hip pain * * * * Physician Interpretation * * * * EXAMINATION: XR HIP 3V PELV+ AP/LAT LT CLINICAL HISTORY: Posteiror and anterior left hip pain that radiates x down leg x 3-4 weeks without injury Left hip pain Technique: XR HIP 3V PELV+ AP/LAT LT -- LEFT with 3 views on 3 images Comparison: 06/21/2019 RESULT: No fracture or dislocation. Mild degenerative changes left hip with inferomedial joint space narrowing and small osteophytes. SI joints and pubic symphysis are intact. Degenerative changes in the lower lumbar spine. IMPRESSION IMPRESSION: Mild left hip osteoarthritis. No acute osseous findings. Transformation Specialist: PSCB Transcribe Date/Time: Apr 13 2021 1:06P Dictated by : ELLIE PAINTER MD This examination was interpreted and the report reviewed and electronically signed by: ELLIE PAINTER MD on Apr 13 2021 1:07PM EST [facility] Radiology Study observation (narrative) [facility] XR Pelvis and Hip - left AP and Lateral frogOrdered By: [facility] Provider on 04-13-2021 [facility] TSHon 05-16-2017 Thyroid stimulating hormone (TSH) 0.41 mIU/m Normal 0.30-5.60 [facility] Comment on above: Performed By: #### [id number] [place] [address] Vital Signs Date Time Vital Sign Value Performing Clinician Facility 04-22-2025 14:41-0400 Body height 160.[address] Armando Orozco MD Work Phone: 0(498)548-067262 [place] [address] 04-22-2025 14:41-0400 Body mass index (BMI) [Ratio] 20.2 kg/m2 Dr. Armando Orozco MD Work Phone: 2(588)963-335638 [address] 04-22-2025 14:41-0400 Body temperature 97.8 [degF] Dr. Armando Orozco MD Work Phone: 6(782)393-152496 [place] [address] 04-22-2025 14:41-0400 Body weight 51.[address] Armando Orozco MD Work Phone: [facility] 04-22-2025 14:41-0400 Diastolic blood pressure 80 mm[Hg] Dr. Armando Orozco MD Work Phone: 5(900)196-865062 [place] [address] 04-22-2025 14:41-0400 Heart rate 64 /min Dr. Armando Orozco MD Work Phone: 5(515)878-627762 [place] [address] 04-22-2025 14:41-0400 Systolic blood pressure 122 mm[Hg] Dr. Armando Orozco MD Work Phone: 4(822)220-076038 [address] 04-11-2025 13:53-0400 Body height 160.[address] Armando Orozco MD Work Phone: 8(248)605-946996 [place] [address] 04-11-2025 13:53-0400 Body mass index (BMI) [Ratio] 20.2 kg/m2 Dr. Armando Orozco MD Work Phone: 6(635)920-939096 [place] [address] 04-11-2025 13:53-0400 Body temperature 98 [degF] Dr. Armando Orozco MD Work Phone: 3(117)946-276196 [place] [address] 04-11-2025 13:53-0400 Body weight 51.[address] Armando Orozco MD Work Phone: 2(644)132-413596 [place] [address] 04-11-2025 13:53-0400 Diastolic blood pressure 82 mm[Hg] Dr. Armando Orozco MD Work Phone: 6(949)374-652996 [place] [address] 04-11-2025 13:53-0400 Systolic blood pressure 124 mm[Hg] Dr. Armando Orozco MD Work Phone: 6(226)812-636196 [place] [address] 03-11-2025 15:09-0400 Body height 160.[address] Armando Orozco MD Work Phone: 8(229)023-293096 [place] [address] 03-11-2025 15:09-0400 Body mass index (BMI) [Ratio] 20.7 kg/m2 Dr. Armando Orozco MD Work Phone: 9(501)683-559096 [place] [address] 03-11-2025 15:09-0400 Body weight 53.[address] Armando Orozco MD Work Phone: 2(751)097-116796 [place] [address] 03-11-2025 15:09-0400 Diastolic blood pressure 71 mm[Hg] Dr. Armando Orozco MD Work Phone: 5(235)727-906696 [place] [address] 03-11-2025 15:09-0400 Heart rate 58 /min Dr. Armando Orozco MD Work Phone: 5(408)560-435496 [place] [address] 03-11-2025 15:09-0400 Respiratory rate 16 /min Dr. Armando Orozco MD Work Phone: 8(494)874-018996 [place] [address] 03-11-2025 15:09-0400 Systolic blood pressure 133 mm[Hg] Dr. Armando Orozco MD Work Phone: 7(798)645-783596 [place] [address] 02-17-2025 15:00-0400 Body height 160.[address] Armando Orozco MD Work Phone: 5(502)723-474196 [place] [address] 02-17-2025 15:00-0400 Body mass index (BMI) [Ratio] 20.9 kg/m2 Dr. Armando Orozco MD Work Phone: 1(552)894-434196 [place] [address] 02-17-2025 15:00-0400 Body weight 53.[address] Armando Orozco MD Work Phone: 0(459)669-116396 [place] [address] 02-07-2025 11:01-0400 Body temperature 97.6 [degF] Dr. Armando Orozco MD Work Phone: 5(607)274-433496 [place] [address] 02-07-2025 11:01-0400 Body weight 54.[address] Armando Orozco MD Work Phone: 9(197)824-996696 [place] [address] 02-07-2025 11:01-0400 Diastolic blood pressure 66 mm[Hg] Dr. Armando Orozco MD Work Phone: 2(258)518-572996 [place] [address] 02-07-2025 11:01-0400 Heart rate 70 /min Dr. Armando Orozco MD Work Phone: 4(095)044-963996 [place] [address] 02-07-2025 11:01-0400 Respiratory rate 14 /min Dr. Armando Orozco MD Work Phone: 7(270)229-977496 [place] [address] 02-07-2025 11:01-0400 SaO2% (BldA) [Mass fraction] 99 % Dr. Armando Orozco MD Work Phone: 3(891)803-581096 [place] [address] 02-07-2025 11:01-0400 Systolic blood pressure 168 mm[Hg] Dr. Armando Orozco MD Work Phone: 3(556)759-344896 [place] [address] 01-30-2025 17:45-0400 Body temperature 98.4 [degF] Dr. Armando Orozco MD Work Phone: [facility] 01-30-2025 17:45-0400 Diastolic blood pressure 62 mm[Hg] Dr. Armando Orozco MD Work Phone: [facility] 01-30-2025 17:45-0400 Heart rate 67 /min Dr. Armando Orozco MD Work Phone: 5(596)991-679696 [place] [address] 01-30-2025 17:45-0400 Respiratory rate 14 /min Dr. Armando Orozco MD Work Phone: 9(644)516-174196 [place] [address] 01-30-2025 17:45-0400 SaO2% (BldA) [Mass fraction] 94 % Dr. Armando Orozco MD Work Phone: 4(358)430-951796 [place] [address] 01-30-2025 17:45-0400 Systolic blood pressure 168 mm[Hg] Dr. Armando Orozco MD Work Phone: 2(851)454-127196 [place] [address] 01-30-2025 15:39-0400 Body height 160.[address] Armando Orozco MD Work Phone: [facility] 01-30-2025 15:39-0400 Body mass index (BMI) [Ratio] 20.9 kg/m2 Dr. Armando Orozco MD Work Phone: [facility] 01-30-2025 15:39-0400 Body weight 53.[address] Armando Orozco MD Work Phone: [facility] 12-24-2024 13:24-0400 Diastolic blood pressure 78 mm[Hg] Kushal Weldon RELIABILITY TECHNICIAN.PHARMACOVIGILANCE SAFETY EXPERT Work Phone: [facility] 12-24-2024 13:24-0400 Systolic blood pressure 170 mm[Hg] Kushal Weldon RELIABILITY TECHNICIAN.PHARMACOVIGILANCE SAFETY EXPERT Work Phone: [facility] 12-24-2024 13:09-0400 Body mass index (BMI) [Ratio] 21.6 kg/m2 Kushal Weldon RELIABILITY TECHNICIAN.PHARMACOVIGILANCE SAFETY EXPERT Work Phone: [facility] 12-24-2024 13:09-0400 Body weight 54.43 kg Kushal Fatemeh RELIABILITY TECHNICIAN.PHARMACOVIGILANCE SAFETY EXPERT Work Phone: [facility] 12-24-2024 13:09-0400 Heart rate 62 /min Kushal Faetmeh RELIABILITY TECHNICIAN.PHARMACOVIGILANCE SAFETY EXPERT Work Phone: [facility] 12-24-2024 13:09-0400 Respiratory rate 18 /min Kushal Fatemeh RELIABILITY TECHNICIAN.PHARMACOVIGILANCE SAFETY EXPERT Work Phone: [facility] 12-24-2024 13:09-0400 SaO2% (BldA) [Mass fraction] 98 % Kushal Fatemeh RELIABILITY TECHNICIAN.PHARMACOVIGILANCE SAFETY EXPERT Work Phone: [facility] 12-10-2024 13:26-0400 Diastolic blood pressure 82 mm[Hg] Armando Orozco MD Work Phone: [facility] 12-10-2024 13:26-0400 Systolic blood pressure 136 mm[Hg] Armando Orozco MD Work Phone: [facility] 12-10-2024 13:23-0400 Body mass index (BMI) [Ratio] 21.51 kg/m2 Armando Orozco MD Work Phone: [facility] 12-10-2024 13:23-0400 Body weight 54.2 kg Armando Orozco MD Work Phone: [facility] 12-10-2024 13:23-0400 Heart rate 60 /min Armando Orozco MD Work Phone: [facility] 12-10-2024 13:23-0400 Respiratory rate 18 /min Armando Orozco MD Work Phone: [facility] 11-05-2024 11:18-0500 Body mass index (BMI) [Ratio] 21.63 kg/m2 Maya SMITH-C Work Phone: [facility] 11-05-2024 11:18-0500 Body weight 54.52 kg Maya Katz PA-C Work Phone: [facility] 11-05-2024 11:18-0500 Diastolic blood pressure 67 mm[Hg] Maya Queener PA-C Work Phone: [facility] 11-05-2024 11:18-0500 Heart rate 66 /min Maya Katz PA-C Work Phone: [facility] 11-05-2024 11:18-0500 SaO2% (BldA) [Mass fraction] 98 % Maya Katz PA-C Work Phone: [facility] 11-05-2024 11:18-0500 Systolic blood pressure 160 mm[Hg] Maya Katz PA-C Work Phone: [facility] 09-25-2024 11:24-0500 Body height 160.[address] Armando Orozco MD Work Phone: [facility] 09-25-2024 11:24-0500 Body mass index (BMI) [Ratio] 21.9 kg/m2 Dr. Armando Orozco MD Work Phone: [facility] 09-25-2024 11:24-0500 Body weight 56.[address] Armando Orozco MD Work Phone: [facility] 09-25-2024 11:24-0500 Diastolic blood pressure 77 mm[Hg] Dr. Armando Orozco MD Work Phone: [facility] 09-25-2024 11:24-0500 Heart rate 66 /min Dr. Armando Orozco MD Work Phone: [facility] 09-25-2024 11:24-0500 Respiratory rate 18 /min Dr. Armando Orozco MD Work Phone: [facility] 09-25-2024 11:24-0500 SaO2% (BldA) [Mass fraction] 99 % Dr. Armando Orozco MD Work Phone: [facility] 09-25-2024 11:24-0500 Systolic blood pressure 138 mm[Hg] Dr. Armando Orozco MD Work Phone: [facility] 09-19-2024 14:26-0500 Body mass index (BMI) [Ratio] 22.02 kg/m2 Emelia Tannhof RELIABILITY TECHNICIAN.PHARMACOVIGILANCE SAFETY EXPERT Work Phone: [facility] 09-19-2024 14:26-0500 Body weight 55.5 kg Emelia Batistahof RELIABILITY TECHNICIAN.PHARMACOVIGILANCE SAFETY EXPERT Work Phone: [facility] 09-19-2024 14:26-0500 Diastolic blood pressure 84 mm[Hg] Emelia Tannhof RELIABILITY TECHNICIAN.PHARMACOVIGILANCE SAFETY EXPERT Work Phone: [facility] 09-19-2024 14:26-0500 Heart rate 69 /min Emelia Batistahof RELIABILITY TECHNICIAN.PHARMACOVIGILANCE SAFETY EXPERT Work Phone: [facility] 09-19-2024 14:26-0500 Respiratory rate 16 /min Emelia Batistahof RELIABILITY TECHNICIAN.PHARMACOVIGILANCE SAFETY EXPERT Work Phone: [facility] 09-19-2024 14:26-0500 SaO2% (BldA) [Mass fraction] 100 % Emelia Batistahof RELIABILITY TECHNICIAN.PHARMACOVIGILANCE SAFETY EXPERT Work Phone: [facility] 09-19-2024 14:26-0500 Systolic blood pressure 140 mm[Hg] Emelia Batistahof RELIABILITY TECHNICIAN.PHARMACOVIGILANCE SAFETY EXPERT Work Phone: [facility] 08-30-2024 11:35-0500 Body mass index (BMI) [Ratio] 21.4 kg/m2 Dr. Armando Orozco MD Work Phone: [facility] 08-30-2024 11:35-0500 Body temperature 98.4 [degF] Dr. Armando Orozco MD Work Phone: [facility] 08-30-2024 11:35-0500 Body weight 54.[address] Armando Orozco MD Work Phone: [facility] 08-30-2024 11:35-0500 Diastolic blood pressure 71 mm[Hg] Dr. Armando Orozco MD Work Phone: [facility] 08-30-2024 11:35-0500 Heart rate 81 /min Dr. Armando Orozco MD Work Phone: [facility] 08-30-2024 11:35-0500 Respiratory rate 14 /min Dr. Armando Orozco MD Work Phone: [facility] 08-30-2024 11:35-0500 SaO2% (BldA) [Mass fraction] 100 % Dr. Armando Orozco MD Work Phone: [facility] 08-30-2024 11:35-0500 Systolic blood pressure 144 mm[Hg] Dr. Armando Orozco MD Work Phone: [facility] 06-10-2024 19:36-0400 Body height 158.8 cm Armando Orozco MD Work Phone: [facility] 06-10-2024 19:36-0400 Body mass index (BMI) [Ratio] 21.67 kg/m2 Armando Orozco MD Work Phone: [facility] 06-10-2024 19:36-0400 Body weight 54.6 kg Armando Orozco MD Work Phone: [facility] 06-10-2024 19:36-0400 Diastolic blood pressure 78 mm[Hg] Armando Orozco MD Work Phone: [facility] 06-10-2024 19:36-0400 Heart rate 68 /min Armando Orozco MD Work Phone: [facility] 06-10-2024 19:36-0400 Respiratory rate 18 /min Armando Orozco MD Work Phone: [facility] 06-10-2024 19:36-0400 Systolic blood pressure 126 mm[Hg] Armando Orozco MD Work Phone: [facility] 05-22-2024 11:16-0400 Body mass index (BMI) [Ratio] 21.19 kg/m2 Verónica Wallace MD PhD Work Phone: [facility] 05-22-2024 11:16-0400 Body temperature 97 [degF] Verónica Wallace MD PhD Work Phone: [facility] 05-22-2024 11:16-0400 Body weight 54.25 kg Verónica Wallace MD PhD Work Phone: [facility] 05-22-2024 11:16-0400 Diastolic blood pressure 90 mm[Hg] Verónica Wallace MD PhD Work Phone: [facility] 05-22-2024 11:16-0400 Heart rate 69 /min Verónica Wallace MD PhD Work Phone: [facility] 05-22-2024 11:16-0400 Respiratory rate 16 /min Verónica Wallace MD PhD Work Phone: [facility] 05-22-2024 11:16-0400 Systolic blood pressure 180 mm[Hg] Verónica Wallace MD PhD Work Phone: [facility] 03-20-2024 10:33-0400 Body mass index (BMI) [Ratio] 21.06 kg/m2 Emelia Lynn APRN.PHARMACOVIGILANCE SAFETY EXPERT Work Phone: [facility] 03-20-2024 10:33-0400 Body weight 53.07 kg Emelia Lynn RELIABILITY TECHNICIAN.PHARMACOVIGILANCE SAFETY EXPERT Work Phone: [facility] 03-20-2024 10:33-0400 Diastolic blood pressure 82 mm[Hg] Emelia Lynn RELIABILITY TECHNICIAN.PHARMACOVIGILANCE SAFETY EXPERT Work Phone: [facility] 03-20-2024 10:33-0400 Heart rate 78 /min Emelia Lynn RELIABILITY TECHNICIAN.PHARMACOVIGILANCE SAFETY EXPERT Work Phone: [facility] 03-20-2024 10:33-0400 Respiratory rate 16 /min Emelia Lynn RELIABILITY TECHNICIAN.PHARMACOVIGILANCE SAFETY EXPERT Work Phone: [facility] 03-20-2024 10:33-0400 SaO2% (BldA) [Mass fraction] 100 % Emelia Lynn RELIABILITY TECHNICIAN.PHARMACOVIGILANCE SAFETY EXPERT Work Phone: [facility] 03-20-2024 10:33-0400 Systolic blood pressure 150 mm[Hg] Emelia Lynn RELIABILITY TECHNICIAN.PHARMACOVIGILANCE SAFETY EXPERT Work Phone: [facility] 02-14-2024 13:11-0400 Body mass index (BMI) [Ratio] 20.7 kg/m2 Emelia Tannhof RELIABILITY TECHNICIAN.PHARMACOVIGILANCE SAFETY EXPERT Work Phone: [facility] 02-14-2024 13:11-0400 Body weight 52.16 kg Emelia Batistahof RELIABILITY TECHNICIAN.PHARMACOVIGILANCE SAFETY EXPERT Work Phone: [facility] 02-14-2024 13:11-0400 Diastolic blood pressure 80 mm[Hg] Emelia Tannhof RELIABILITY TECHNICIAN.PHARMACOVIGILANCE SAFETY EXPERT Work Phone: [facility] 02-14-2024 13:11-0400 Heart rate 79 /min Emelia Tannhof RELIABILITY TECHNICIAN.PHARMACOVIGILANCE SAFETY EXPERT Work Phone: [facility] 02-14-2024 13:11-0400 Respiratory rate 16 /min Emelia Tannhof RELIABILITY TECHNICIAN.PHARMACOVIGILANCE SAFETY EXPERT Work Phone: [facility] 02-14-2024 13:11-0400 SaO2% (BldA) [Mass fraction] 98 % Emelia Batistahof RELIABILITY TECHNICIAN.PHARMACOVIGILANCE SAFETY EXPERT Work Phone: [facility] 02-14-2024 13:11-0400 Systolic blood pressure 138 mm[Hg] Emelia Tannhof RELIABILITY TECHNICIAN.PHARMACOVIGILANCE SAFETY EXPERT Work Phone: [facility] 01-12-2024 15:52-0400 Body mass index (BMI) [Ratio] 20.55 kg/m2 Vega Granger Jr., MD Work Phone: [facility] 01-12-2024 15:52-0400 Body weight 51.8 kg Vega Granger Jr., MD Work Phone: [facility] 01-12-2024 15:52-0400 Diastolic blood pressure 94 mm[Hg] Vega Granger Jr., MD Work Phone: [facility] Comment on above: (LT) pediatric cuff sitting 01-12-2024 15:52-0400 Heart rate 64 /min Vega Granger Jr., MD Work Phone: [facility] 01-12-2024 15:52-0400 Respiratory rate 16 /min Vega Granger Jr., MD Work Phone: [facility] 01-12-2024 15:52-0400 SaO2% (BldA) [Mass fraction] 98 % Vega Granger Jr., MD Work Phone: [facility] 01-12-2024 15:52-0400 Systolic blood pressure 152 mm[Hg] Vega Granger Jr., MD Work Phone: [facility] Comment on above: (LT) pediatric cuff sitting 01-11-2024 08:24-0400 Body mass index (BMI) [Ratio] 20.52 kg/m2 Emelia Batistahof RELIABILITY TECHNICIAN.PHARMACOVIGILANCE SAFETY EXPERT Work Phone: [facility] 01-11-2024 08:24-0400 Body weight 51.71 kg Emelia Lynn RELIABILITY TECHNICIAN.PHARMACOVIGILANCE SAFETY EXPERT Work Phone: [facility] 01-11-2024 08:24-0400 Diastolic blood pressure 100 mm[Hg] Emelia Batistahof RELIABILITY TECHNICIAN.PHARMACOVIGILANCE SAFETY EXPERT Work Phone: [facility] 01-11-2024 08:24-0400 Heart rate 62 /min Emelia Batistahof RELIABILITY TECHNICIAN.PHARMACOVIGILANCE SAFETY EXPERT Work Phone: [facility] 01-11-2024 08:24-0400 Respiratory rate 16 /min Emelia Batistahof RELIABILITY TECHNICIAN.PHARMACOVIGILANCE SAFETY EXPERT Work Phone: [facility] 01-11-2024 08:24-0400 SaO2% (BldA) [Mass fraction] 98 % Emelia Batistahof RELIABILITY TECHNICIAN.PHARMACOVIGILANCE SAFETY EXPERT Work Phone: [facility] 01-11-2024 08:24-0400 Systolic blood pressure 140 mm[Hg] Emelia Batistahof RELIABILITY TECHNICIAN.PHARMACOVIGILANCE SAFETY EXPERT Work Phone: [facility] 01-06-2024 14:09-0400 Body temperature 98.3 [degF] Dr. Armando Orozco Work Phone: [facility] 01-06-2024 14:09-0400 Diastolic blood pressure 58 mm[Hg] Dr. Armando Orozco Work Phone: 2(293)651-896062 [place] [address] 01-06-2024 14:09-0400 Heart rate 69 /min Dr. Armando Orozco Work Phone: 1(656)073-749696 [place] [address] 01-06-2024 14:09-0400 Respiratory rate 21 /min Dr. Armando Orozco Work Phone: 7(154)139-791696 [place] [address] 01-06-2024 14:09-0400 SaO2% (BldA) [Mass fraction] 97 % Dr. Armando Orozco Work Phone: 5(912)292-568996 [place] [address] 01-06-2024 14:09-0400 Systolic blood pressure 165 mm[Hg] Dr. Armando Orozco Work Phone: 6(402)389-850796 [place] [address] 01-06-2024 04:41-0400 Body mass index (BMI) [Ratio] 23.6 kg/m2 Dr. Armando Orozco Work Phone: 3(831)316-852696 [place] [address] 01-06-2024 04:41-0400 Body weight 60.[address] Armando Orozco Work Phone: 0(308)050-677396 [place] [address] 01-05-2024 13:56-0400 Body height 160.[address] Armando Orozco Work Phone: 0(930)352-979596 [place] [address] 01-04-2024 21:31-0400 Body temperature 98 [degF] Dr. Armando Orozco Work Phone: 2(584)804-541062 [place] [address] 01-04-2024 21:31-0400 Diastolic blood pressure 72 mm[Hg] Dr. Armando Orozco Work Phone: 4(863)984-881496 [place] [address] 01-04-2024 21:31-0400 Heart rate 85 /min Dr. Armando Orozco Work Phone: 2(003)546-336862 [place] [address] 01-04-2024 21:31-0400 Respiratory rate 15 /min Dr. Armando Orozco Work Phone: 4(095)951-300396 [place] [address] 01-04-2024 21:31-0400 SaO2% (BldA) [Mass fraction] 95 % Dr. Armando Orozco Work Phone: [facility] 01-04-2024 21:31-0400 Systolic blood pressure 147 mm[Hg] Dr. Armando Orozco Work Phone: [facility] 01-04-2024 17:08-0400 Body mass index (BMI) [Ratio] 21.2 kg/m2 Dr. Armando Orozco Work Phone: [facility] 01-04-2024 17:08-0400 Body weight 54.[address] Armando Orozco Work Phone: [facility] 01-04-2024 15:00-0400 Body height 160.[address] Armando Orozco Work Phone: [facility] 12-21-2023 08:54-0400 Body weight 53.07 kg Emelia Lynn RELIABILITY TECHNICIAN.PHARMACOVIGILANCE SAFETY EXPERT Work Phone: [facility] 12-21-2023 08:54-0400 Diastolic blood pressure 80 mm[Hg] Emelia Lynn RELIABILITY TECHNICIAN.PHARMACOVIGILANCE SAFETY EXPERT Work Phone: [facility] 12-21-2023 08:54-0400 Heart rate 79 /min Emelia Lynn RELIABILITY TECHNICIAN.PHARMACOVIGILANCE SAFETY EXPERT Work Phone: [facility] 12-21-2023 08:54-0400 Respiratory rate 16 /min Emelia Lynn RELIABILITY TECHNICIAN.PHARMACOVIGILANCE SAFETY EXPERT Work Phone: [facility] 12-21-2023 08:54-0400 SaO2% (BldA) [Mass fraction] 98 % Emelia Lynn RELIABILITY TECHNICIAN.PHARMACOVIGILANCE SAFETY EXPERT Work Phone: [facility] 12-21-2023 08:54-0400 Systolic blood pressure 140 mm[Hg] Emelia Lynn RELIABILITY TECHNICIAN.PHARMACOVIGILANCE SAFETY EXPERT Work Phone: [facility] 11-29-2023 12:31-0400 Body height 160.[address] Armando Orozco Work Phone: [facility] 11-29-2023 12:31-0400 Body mass index (BMI) [Ratio] 20.9 kg/m2 Dr. Armando Orozco Work Phone: [facility] 11-29-2023 12:31-0400 Body weight 53.[address] Armando Orozco Work Phone: [facility] 11-29-2023 12:31-0400 Diastolic blood pressure 82 mm[Hg] Dr. Armando Orozco Work Phone: [facility] 11-29-2023 12:31-0400 Heart rate 64 /min Dr. Armando Orozco Work Phone: [facility] 11-29-2023 12:31-0400 Respiratory rate 18 /min Dr. Armando Orozco Work Phone: [facility] 11-29-2023 12:31-0400 SaO2% (BldA) [Mass fraction] 96 % Dr. Armando Orozco Work Phone: [facility] 11-29-2023 12:31-0400 Systolic blood pressure 189 mm[Hg] Dr. Armando Orozco Work Phone: [facility] 11-20-2023 13:48-0400 Body weight 54.25 kg Armando Orozco MD Work Phone: [facility] 11-20-2023 13:48-0400 Diastolic blood pressure 84 mm[Hg] Armando Orozco MD Work Phone: [facility] 11-20-2023 13:48-0400 Heart rate 62 /min Armando Orozco MD Work Phone: [facility] 11-20-2023 13:48-0400 Respiratory rate 16 /min Armando Orozco MD Work Phone: [facility] 11-20-2023 13:48-0400 Systolic blood pressure 140 mm[Hg] Armando Orozco MD Work Phone: [facility] 11-15-2023 18:00-0500 Body temperature 97.7 [degF] Dr. Armando Orozco Work Phone: [facility] 11-15-2023 18:00-0500 Diastolic blood pressure 83 mm[Hg] Dr. Armando Orozco Work Phone: 2(054)175-541762 [place] [address] 11-15-2023 18:00-0500 Heart rate 108 /min Dr. Armando Orozco Work Phone: 2(386)678-156796 [place] [address] 11-15-2023 18:00-0500 Respiratory rate 16 /min Dr. Armando Orozco Work Phone: 9(374)421-843896 [place] [address] 11-15-2023 18:00-0500 SaO2% (BldA) [Mass fraction] 98 % Dr. Armando Orozco Work Phone: 2(401)240-469862 [place] [address] 11-15-2023 18:00-0500 Systolic blood pressure 153 mm[Hg] Dr. Armando Orozco Work Phone: 8(546)987-189296 [place] [address] 11-15-2023 15:30-0500 Body mass index (BMI) [Ratio] 20.5 kg/m2 Dr. Armando Orozco Work Phone: 1(073)083-548096 [place] [address] 11-14-2023 10:44-0500 Body height 160.[address] Armando Orozco Work Phone: 1(719)971-966896 [place] [address] 11-14-2023 10:44-0500 Body weight 52.[address] Armando Orozco Work Phone: 2(665)030-829596 [place] [address] 11-13-2023 20:09-0500 Body temperature 98.2 [degF] Dr. Armando Orozco Work Phone: 8(220)323-268462 [place] [address] 11-13-2023 20:09-0500 Diastolic blood pressure 91 mm[Hg] Dr. Armando Orozco Work Phone: 4(207)787-117396 [place] [address] 11-13-2023 20:09-0500 Heart rate 91 /min Dr. Armando Orozco Work Phone: 7(126)349-449162 [place] [address] 11-13-2023 20:09-0500 Respiratory rate 18 /min Dr. Armando Orozco Work Phone: 2(118)034-309862 [place] [address] 11-13-2023 20:09-0500 SaO2% (BldA) [Mass fraction] 98 % Dr. Armando Orozco Work Phone: [facility] 11-13-2023 20:09-0500 Systolic blood pressure 164 mm[Hg] Dr. Armando Orozco Work Phone: [facility] 11-13-2023 13:02-0500 Body height 160.[address] Armando Orozco Work Phone: [facility] 11-13-2023 13:02-0500 Body mass index (BMI) [Ratio] 20.3 kg/m2 Dr. Armando Orozco Work Phone: [facility] 11-13-2023 13:02-0500 Body weight 52.[address] Armando Orozco Work Phone: [facility] 10-31-2023 16:15-0500 Body height 158.8 cm Carlin Huffman PA-C Work Phone: [facility] 10-31-2023 16:15-0500 Body temperature 97.5 [degF] Carlin Huffman PA-C Work Phone: [facility] 10-31-2023 16:15-0500 Body weight 54.98 kg Carlin Huffman PA-C Work Phone: [facility] 10-31-2023 16:15-0500 Diastolic blood pressure 70 mm[Hg] Carlin Huffman PA-C Work Phone: [facility] [facility] 10-31-2023 16:15-0500 Heart rate 79 /min Carlin Huffman PA-C Work Phone: [facility] 10-31-2023 16:15-0500 SaO2% (BldA) [Mass fraction] 97 % Carlin Huffman PA-C Work Phone: [facility] 10-31-2023 16:15-0500 Systolic blood pressure 136 mm[Hg] Carlin Huffman PA-C Work Phone: [facility] 10-16-2023 11:57-0500 Body mass index (BMI) [Ratio] 20.9 kg/m2 Dr. Armando Orozco Work Phone: 7(743)765-446162 [place] [address] 10-16-2023 11:57-0500 Body weight 53.[address] Armando Orozco Work Phone: 5(663)610-360396 [place] [address] 10-16-2023 11:57-0500 Diastolic blood pressure 80 mm[Hg] Dr. Armando Orozco Work Phone: 7(132)829-477996 [place] [address] 10-16-2023 11:57-0500 Heart rate 68 /min Dr. Armando Orozco Work Phone: 6(180)433-351596 [place] [address] 10-16-2023 11:57-0500 Respiratory rate 18 /min Dr. Armando Orozco Work Phone: 2(183)201-844396 [place] [address] 10-16-2023 11:57-0500 SaO2% (BldA) [Mass fraction] 97 % Dr. Armando Orozco Work Phone: 3(437)613-124596 [place] [address] 10-16-2023 11:57-0500 Systolic blood pressure 179 mm[Hg] Dr. Armando Orozco Work Phone: 3(956)743-358296 [place] [address] 09-18-2023 13:03-0500 Diastolic blood pressure 74 mm[Hg] Dr. Armando Orozco Work Phone: 4(620)273-706896 [place] [address] 09-18-2023 13:03-0500 Heart rate 47 /min Dr. Armando Orozco Work Phone: 6(767)727-749896 [place] [address] 09-18-2023 13:03-0500 Respiratory rate 10 /min Dr. Armando Orozco Work Phone: 8(569)785-878496 [place] [address] 09-18-2023 13:03-0500 SaO2% (BldA) [Mass fraction] 94 % Dr. Armando Orozco Work Phone: 1(852)691-891496 [place] [address] 09-18-2023 13:03-0500 Systolic blood pressure 164 mm[Hg] Dr. Armando Orozco Work Phone: 0(066)196-507796 [place] [address] 09-18-2023 10:47-0500 Body mass index (BMI) [Ratio] 21.2 kg/m2 Dr. Armando Orozco Work Phone: [facility] 09-18-2023 10:47-0500 Body temperature 97.3 [degF] Dr. Armando Orozco Work Phone: [facility] 09-18-2023 10:47-0500 Body weight 54.[address] Armando Orozco Work Phone: [facility] 07-26-2023 10:34-0500 Body height 160 cm Juan Kilpatrick PHARMACOVIGILANCE SAFETY EXPERT Work Phone: [facility] 07-26-2023 10:34-0500 Body mass index (BMI) [Ratio] 19.49 kg/m2 Juan Kilpatrick PHARMACOVIGILANCE SAFETY EXPERT Work Phone: [facility] 07-26-2023 10:34-0500 Body weight 49.9 kg Juan Kilpatrick PHARMACOVIGILANCE SAFETY EXPERT Work Phone: [facility] 07-05-2023 13:35-0400 Diastolic blood pressure 76 mm[Hg] Maciej Birmingham Jr., DPM Work Phone: [facility] 07-05-2023 13:35-0400 Heart rate 54 /min Maciej Birmingham Jr., DPM Work Phone: [facility] 07-05-2023 13:35-0400 Systolic blood pressure 177 mm[Hg] Maciej Birmingham Jr., DPM Work Phone: [facility] 07-05-2023 13:27-0400 Body temperature 98.2 [degF] Maciej Birmingham Jr., DPM Work Phone: [facility] 05-12-2023 15:11-0400 Body weight 55.52 kg Sanna Rubin RELIABILITY TECHNICIAN.PHARMACOVIGILANCE SAFETY EXPERT Work Phone: [facility] 05-12-2023 15:11-0400 Diastolic blood pressure 78 mm[Hg] Sanna Rubin RELIABILITY TECHNICIAN.PHARMACOVIGILANCE SAFETY EXPERT Work Phone: [facility] 05-12-2023 15:11-0400 Heart rate 77 /min Sanna Rubin RELIABILITY TECHNICIAN.PHARMACOVIGILANCE SAFETY EXPERT Work Phone: [facility] 05-12-2023 15:11-0400 Respiratory rate 16 /min Sanna Rubin RELIABILITY TECHNICIAN.PHARMACOVIGILANCE SAFETY EXPERT Work Phone: [facility] 05-12-2023 15:11-0400 SaO2% (BldA) [Mass fraction] 100 % Sanna Rubin RELIABILITY TECHNICIAN.PHARMACOVIGILANCE SAFETY EXPERT Work Phone: [facility] 05-12-2023 15:11-0400 Systolic blood pressure 132 mm[Hg] Sanna Rubin RELIABILITY TECHNICIAN.PHARMACOVIGILANCE SAFETY EXPERT Work Phone: [facility] 05-05-2023 15:11-0400 Body temperature 98.2 [degF] Jose Pendlebury RELIABILITY TECHNICIAN.PHARMACOVIGILANCE SAFETY EXPERT Work Phone: [facility] 05-05-2023 15:11-0400 Body weight 55.16 kg [facility] RELIABILITY TECHNICIAN.PHARMACOVIGILANCE SAFETY EXPERT Work Phone: [facility] 05-05-2023 15:11-0400 Diastolic blood pressure 82 mm[Hg] Jose Pendlebury RELIABILITY TECHNICIAN.PHARMACOVIGILANCE SAFETY EXPERT Work Phone: [facility] 05-05-2023 15:11-0400 Heart rate 63 /min Jose Pendlebury RELIABILITY TECHNICIAN.PHARMACOVIGILANCE SAFETY EXPERT Work Phone: [facility] 05-05-2023 15:11-0400 Respiratory rate 18 /min Jose Pendlebury RELIABILITY TECHNICIAN.PHARMACOVIGILANCE SAFETY EXPERT Work Phone: [facility] 05-05-2023 15:11-0400 SaO2% (BldA) [Mass fraction] 98 % Jose Pendlebury RELIABILITY TECHNICIAN.PHARMACOVIGILANCE SAFETY EXPERT Work Phone: [facility] 05-05-2023 15:11-0400 Systolic blood pressure 160 mm[Hg] Jose Pendlebury RELIABILITY TECHNICIAN.PHARMACOVIGILANCE SAFETY EXPERT Work Phone: [facility] 04-20-2023 12:33-0400 Body weight 54.88 kg Emelia Lynn RELIABILITY TECHNICIAN.PHARMACOVIGILANCE SAFETY EXPERT Work Phone: [facility] 04-20-2023 12:33-0400 Diastolic blood pressure 56 mm[Hg] Emelia Batistahof RELIABILITY TECHNICIAN.PHARMACOVIGILANCE SAFETY EXPERT Work Phone: [facility] 04-20-2023 12:33-0400 Heart rate 57 /min Emelia Batistahof RELIABILITY TECHNICIAN.PHARMACOVIGILANCE SAFETY EXPERT Work Phone: [facility] 04-20-2023 12:33-0400 Respiratory rate 16 /min Emelia Batistahof RELIABILITY TECHNICIAN.PHARMACOVIGILANCE SAFETY EXPERT Work Phone: [facility] 04-20-2023 12:33-0400 SaO2% (BldA) [Mass fraction] 96 % Emelia Batistahof RELIABILITY TECHNICIAN.PHARMACOVIGILANCE SAFETY EXPERT Work Phone: [facility] 04-20-2023 12:33-0400 Systolic blood pressure 112 mm[Hg] Emelia Batistahof RELIABILITY TECHNICIAN.PHARMACOVIGILANCE SAFETY EXPERT Work Phone: [facility] 04-12-2023 11:32-0400 Body temperature 97.7 [degF] Dr. Armando Orozco Work Phone: [facility] 04-12-2023 11:32-0400 Body weight 54.[address] Armando Orozco Work Phone: [facility] 04-12-2023 11:32-0400 Diastolic blood pressure 62 mm[Hg] Dr. Armando Orozco Work Phone: [facility] 04-12-2023 11:32-0400 Heart rate 60 /min Dr. Armando Orozco Work Phone: [facility] 04-12-2023 11:32-0400 Respiratory rate 18 /min Dr. Armando Orozco Work Phone: [facility] 04-12-2023 11:32-0400 SaO2% (BldA) [Mass fraction] 100 % Dr. Armando Orozco Work Phone: [facility] 04-12-2023 11:32-0400 Systolic blood pressure 142 mm[Hg] Dr. Armando Orozco Work Phone: [facility] 03-29-2023 10:20-0400 Body weight 55.34 kg Emelia Batistahof RELIABILITY TECHNICIAN.PHARMACOVIGILANCE SAFETY EXPERT Work Phone: [facility] 03-29-2023 10:20-0400 Diastolic blood pressure 64 mm[Hg] Emelia Batistahof RELIABILITY TECHNICIAN.PHARMACOVIGILANCE SAFETY EXPERT Work Phone: [facility] 03-29-2023 10:20-0400 Heart rate 71 /min Emelia Batistahof RELIABILITY TECHNICIAN.PHARMACOVIGILANCE SAFETY EXPERT Work Phone: [facility] 03-29-2023 10:20-0400 Respiratory rate 16 /min Emelia Batistahof RELIABILITY TECHNICIAN.PHARMACOVIGILANCE SAFETY EXPERT Work Phone: [facility] 03-29-2023 10:20-0400 SaO2% (BldA) [Mass fraction] 98 % Emelia Batistahof RELIABILITY TECHNICIAN.PHARMACOVIGILANCE SAFETY EXPERT Work Phone: [facility] 03-29-2023 10:20-0400 Systolic blood pressure 116 mm[Hg] Emelia Batistahof RELIABILITY TECHNICIAN.PHARMACOVIGILANCE SAFETY EXPERT Work Phone: [facility] 03-07-2023 15:14-0400 Body weight 55.2 kg Armando Orozco MD Work Phone: [facility] 03-07-2023 15:14-0400 Diastolic blood pressure 72 mm[Hg] Armando Orozco MD Work Phone: [facility] 03-07-2023 15:14-0400 Heart rate 68 /min Armando Orozco MD Work Phone: [facility] 03-07-2023 15:14-0400 Respiratory rate 16 /min Armando Orozco MD Work Phone: [facility] 03-07-2023 15:14-0400 Systolic blood pressure 120 mm[Hg] Armando Orozco MD Work Phone: [facility] 02-22-2023 11:41-0400 Body height 160.[address] Armando Orozco Work Phone: [facility] 02-22-2023 11:41-0400 Body mass index (BMI) [Ratio] 21.6 kg/m2 Dr. Armando Orozco Work Phone: [facility] 02-22-2023 11:41-0400 Body weight 55.[address] Armando Orozco Work Phone: [facility] 02-22-2023 11:41-0400 Diastolic blood pressure 78 mm[Hg] Dr. Armando Orozco Work Phone: [facility] 02-22-2023 11:41-0400 Heart rate 62 /min Dr. Armando Orozco Work Phone: [facility] 02-22-2023 11:41-0400 Respiratory rate 16 /min Dr. Armando Orozco Work Phone: [facility] 02-22-2023 11:41-0400 Systolic blood pressure 130 mm[Hg] Dr. Armando Orozco Work Phone: [facility] 01-12-2023 07:44-0400 Body weight 55.34 kg Sonia Damon RELIABILITY TECHNICIAN.PHARMACOVIGILANCE SAFETY EXPERT Work Phone: [facility] 01-12-2023 07:44-0400 Diastolic blood pressure 62 mm[Hg] Sonia Damon RELIABILITY TECHNICIAN.PHARMACOVIGILANCE SAFETY EXPERT Work Phone: [facility] 01-12-2023 07:44-0400 Heart rate 58 /min Sonia Marisol RELIABILITY TECHNICIAN.PHARMACOVIGILANCE SAFETY EXPERT Work Phone: [facility] 01-12-2023 07:44-0400 Respiratory rate 14 /min Sonia Marisol RELIABILITY TECHNICIAN.PHARMACOVIGILANCE SAFETY EXPERT Work Phone: [facility] 01-12-2023 07:44-0400 Systolic blood pressure 116 mm[Hg] Sonia Damon RELIABILITY TECHNICIAN.PHARMACOVIGILANCE SAFETY EXPERT Work Phone: [facility] 12-07-2022 11:48-0400 Body height 160.[address] Armando Orozco Work Phone: [facility] 12-07-2022 11:48-0400 Body mass index (BMI) [Ratio] 22.1 kg/m2 Dr. Armando Orozco Work Phone: [facility] 12-07-2022 11:48-0400 Body weight 56.[address] Armando Orozco Work Phone: [facility] 12-07-2022 11:48-0400 Diastolic blood pressure 76 mm[Hg] Dr. Armando Orozco Work Phone: [facility] 12-07-2022 11:48-0400 Heart rate 60 /min Dr. Armando Orozco Work Phone: [facility] 12-07-2022 11:48-0400 Respiratory rate 18 /min Dr. Armando Orozco Work Phone: [facility] 12-07-2022 11:48-0400 SaO2% (BldA) [Mass fraction] 98 % Dr. Armando Orozco Work Phone: [facility] 12-07-2022 11:48-0400 Systolic blood pressure 152 mm[Hg] Dr. Armando Orozco Work Phone: [facility] 09-26-2022 14:17-0500 Body height 160.02 cm Armando Orozco [facility] Work Phone: 09-26-2022 14:17-0500 Body mass index (BMI) [Ratio] 21.26 kg/m2 Armando Orozco Work Phone: [facility] Work Phone: 09-26-2022 14:17-0500 Body surface area Derived from formula 1.56 m2 Armando Orozco Work Phone: [facility] [place] [facility] Work Phone: 09-26-2022 14:17-0500 Body temperature 91.6 [degF] Armando Orozco Work Phone: [facility] [place] [facility] Work Phone: 09-26-2022 14:17-0500 Body weight 54.43 kg [facility]ando Orozco [facility] Work Phone: 09-08-2022 10:47-0500 Body height 160.[address] Armando Orozco Work Phone: [facility] 09-08-2022 10:47-0500 Body mass index (BMI) [Ratio] 21.2 kg/m2 Dr. Armando Orozco Work Phone: [facility] 09-08-2022 10:47-0500 Body weight 54.[address] Armando Orozco Work Phone: [facility] 09-08-2022 10:47-0500 Diastolic blood pressure 62 mm[Hg] Dr. Armando Orozco Work Phone: [facility] 09-08-2022 10:47-0500 Heart rate 64 /min Dr. Armando Orozco Work Phone: [facility] 09-08-2022 10:47-0500 Respiratory rate 16 /min Dr. Armando Orozco Work Phone: [facility] 09-08-2022 10:47-0500 Systolic blood pressure 154 mm[Hg] Dr. Armando Orozco Work Phone: [facility] 07-13-2022 11:31-0400 Body weight 53.98 kg Nik Walsh MD Work Phone: [facility] 07-13-2022 11:31-0400 Diastolic blood pressure 60 mm[Hg] Nik Walsh MD Work Phone: [facility] 07-13-2022 11:31-0400 Heart rate 65 /min Nik Walsh MD Work Phone: [facility] 07-13-2022 11:31-0400 Respiratory rate 18 /min Nik Walsh MD Work Phone: [facility] 07-13-2022 11:31-0400 SaO2% (BldA) [Mass fraction] 96 % Nik Walsh MD Work Phone: [facility] 07-13-2022 11:31-0400 Systolic blood pressure 114 mm[Hg] Nik Walsh MD Work Phone: [facility] 07-11-2022 13:36-0400 Body height 161.29 cm Armando Orozco Work Phone: [facility] [place] Work Phone: 07-11-2022 13:36-0400 Body mass index (BMI) [Ratio] 20.97 kg/m2 Armando Orozco Work Phone: [facility] [place] Work Phone: 07-11-2022 13:36-0400 Body surface area Derived from formula 1.57 m2 Armando Orozco Work Phone: [facility] [place] Work Phone: 07-11-2022 13:36-0400 Body temperature 97.6 [degF] Armando Orozco Work Phone: [facility] [place] Work Phone: 07-11-2022 13:36-0400 Body weight 54.55 kg Armando Orozco Work Phone: [facility] [place] Work Phone: 06-22-2022 13:18-0400 Body mass index (BMI) [Ratio] 21.4 kg/m2 Dr. Armando Orozco Work Phone: [facility] 06-22-2022 13:18-0400 Body weight 54.[address] Armando Orozco Work Phone: [facility] 06-22-2022 13:10-0400 Body mass index (BMI) [Ratio] 21.4 kg/m2 Dr. Armando Orozco Work Phone: [facility] 06-22-2022 13:10-0400 Body weight 54.[address] Armando rOozco Work Phone: [facility] 06-22-2022 13:10-0400 Diastolic blood pressure 72 mm[Hg] Dr. Armando Orozco Work Phone: [facility] 06-22-2022 13:10-0400 Heart rate 52 /min Dr. Armnado Orozco Work Phone: [facility] 06-22-2022 13:10-0400 Respiratory rate 18 /min Dr. Armando Orozco Work Phone: [facility] 06-22-2022 13:10-0400 SaO2% (BldA) [Mass fraction] 98 % Dr. Armando Orozco Work Phone: [facility] 06-22-2022 13:10-0400 Systolic blood pressure 134 mm[Hg] Dr. Armando Orozco Work Phone: [facility] 05-05-2022 08:02-0400 Body weight 54.88 kg Emelia Lynn RELIABILITY TECHNICIAN.PHARMACOVIGILANCE SAFETY EXPERT Work Phone: [facility] 05-05-2022 08:02-0400 Diastolic blood pressure 52 mm[Hg] Emelia Batistahof RELIABILITY TECHNICIAN.PHARMACOVIGILANCE SAFETY EXPERT Work Phone: [facility] 05-05-2022 08:02-0400 Heart rate 62 /min Emelia Batistahof RELIABILITY TECHNICIAN.PHARMACOVIGILANCE SAFETY EXPERT Work Phone: [facility] 05-05-2022 08:02-0400 Respiratory rate 16 /min Emelia Batistahof RELIABILITY TECHNICIAN.PHARMACOVIGILANCE SAFETY EXPERT Work Phone: [facility] 05-05-2022 08:02-0400 SaO2% (BldA) [Mass fraction] 100 % Emelia Wilderf RELIABILITY TECHNICIAN.PHARMACOVIGILANCE SAFETY EXPERT Work Phone: [facility] 05-05-2022 08:02-0400 Systolic blood pressure 100 mm[Hg] Emelia Lynn APRN.CNP Work Phone: [facility] 05-04-2022 10:58-0400 Body height 160.[address] Armando Orozco Work Phone: [facility] Work Phone: 05-04-2022 10:58-0400 Body mass index (BMI) [Ratio] 21.2 kg/m2 Dr. Armando Orozco Work Phone: [facility] Work Phone: 05-04-2022 10:58-0400 Body weight 54.[address] Armando Orozco Work Phone: [facility] Work Phone: 05-04-2022 10:58-0400 Diastolic blood pressure 69 mm[Hg] Dr. Armando Orozco Work Phone: [facility] Work Phone: 05-04-2022 10:58-0400 Heart rate 62 /min Dr. Armando Orozco Work Phone: [facility] Work Phone: 05-04-2022 10:58-0400 Respiratory rate 18 /min Dr. Armando Orozco Work Phone: [facility] Work Phone: 05-04-2022 10:58-0400 SaO2% (BldA) [Mass fraction] 100 % Dr. Armando Orozco Work Phone: [facility] Work Phone: 05-04-2022 10:58-0400 Systolic blood pressure 152 mm[Hg] Dr. Armando Orozco Work Phone: [facility] Work Phone: 03-30-2022 13:39-0400 Body height 160.[address] Armando Orozco Work Phone: [facility] Work Phone: 03-30-2022 13:39-0400 Body mass index (BMI) [Ratio] 21 kg/m2 Dr. Armando Orozco Work Phone: [facility] Work Phone: 03-30-2022 13:39-0400 Body weight 53.[address] Armando Orozco Work Phone: [facility] Work Phone: 03-30-2022 13:39-0400 Diastolic blood pressure 64 mm[Hg] Dr. Armando Orozco Work Phone: [facility] Work Phone: 03-30-2022 13:39-0400 Heart rate 70 /min Dr. Armando Orozco Work Phone: [facility] Work Phone: 03-30-2022 13:39-0400 SaO2% (BldA) [Mass fraction] 97 % Dr. Armando Orozco Work Phone: [facility] Work Phone: 03-30-2022 13:39-0400 Systolic blood pressure 117 mm[Hg] Dr. Armando Orozco Work Phone: [facility] Work Phone: 01-06-2022 10:30-0400 Body mass index (BMI) [Ratio] 20.9 kg/m2 Dr. Armando Orozco Work Phone: [facility] Work Phone: 01-06-2022 10:30-0400 Body temperature 97.4 [degF] Dr. Armando Orozco Work Phone: [facility] Work Phone: 01-06-2022 10:30-0400 Body weight 53.[address] Armando Orozco Work Phone: [facility] Work Phone: 01-06-2022 10:30-0400 Diastolic blood pressure 58 mm[Hg] Dr. Armando Orozco Work Phone: [facility] Work Phone: 01-06-2022 10:30-0400 Heart rate 74 /min Dr. Armando Orozco Work Phone: [facility] Work Phone: 01-06-2022 10:30-0400 Respiratory rate 16 /min Dr. Armando Orozco Work Phone: [facility] Work Phone: 01-06-2022 10:30-0400 SaO2% (BldA) [Mass fraction] 95 % Dr. Armando Orozco Work Phone: [facility] Work Phone: 01-06-2022 10:30-0400 Systolic blood pressure 113 mm[Hg] Dr. Armando Orozco Work Phone: [facility] Work Phone: 01-06-2022 10:30-0400 Body mass index (BMI) [Ratio] 20.9 kg/m2 Dr. Armando Orozco Work Phone: [facility] Work Phone: 01-06-2022 10:30-0400 Body temperature 97.4 [degF] Dr. Armando Orozco Work Phone: [facility] Work Phone: 01-06-2022 10:30-0400 Body weight 53.[address] Armando Orozco Work Phone: [facility] Work Phone: 01-06-2022 10:30-0400 Diastolic blood pressure 58 mm[Hg] Dr. Armando Orozco Work Phone: [facility] Work Phone: 01-06-2022 10:30-0400 Heart rate 74 /min Dr. Armando Orozco Work Phone: [facility] Work Phone: 01-06-2022 10:30-0400 Respiratory rate 16 /min Dr. Armando Orozco Work Phone: [facility] Work Phone: 01-06-2022 10:30-0400 SaO2% (BldA) [Mass fraction] 95 % Dr. Armando Orozco Work Phone: [facility] Work Phone: 01-06-2022 10:30-0400 Systolic blood pressure 113 mm[Hg] Dr. Armando Orozco Work Phone: [facility] Work Phone: 01-03-2022 13:15-0400 Body mass index (BMI) [Ratio] 20.9 kg/m2 Dr. Armando Orozco Work Phone: [facility] Work Phone: 01-03-2022 13:15-0400 Body weight 53.[address] Armando Orozco Work Phone: [facility] Work Phone: 01-03-2022 13:15-0400 Diastolic blood pressure 66 mm[Hg] Dr. Armando Orozco Work Phone: [facility] Work Phone: 01-03-2022 13:15-0400 Heart rate 73 /min Dr. Armando Orozco Work Phone: [facility] Work Phone: 01-03-2022 13:15-0400 SaO2% (BldA) [Mass fraction] 98 % Dr. Armando Orozco Work Phone: [facility] Work Phone: 01-03-2022 13:15-0400 Systolic blood pressure 112 mm[Hg] Dr. Armando Orozco Work Phone: [facility] Work Phone: 01-03-2022 13:15-0400 Body mass index (BMI) [Ratio] 20.9 kg/m2 Dr. Armando Orozco Work Phone: [facility] Work Phone: 01-03-2022 13:15-0400 Body weight 53.[address] Armando Orozco Work Phone: [facility] Work Phone: 01-03-2022 13:15-0400 Diastolic blood pressure 66 mm[Hg] Dr. Armando Orozco Work Phone: [facility] Work Phone: 01-03-2022 13:15-0400 Heart rate 73 /min Dr. Armando Orozco Work Phone: [facility] Work Phone: 01-03-2022 13:15-0400 SaO2% (BldA) [Mass fraction] 98 % Dr. Armando Orozco Work Phone: [facility] Work Phone: 01-03-2022 13:15-0400 Systolic blood pressure 112 mm[Hg] Dr. Armando Orozco Work Phone: [facility] Work Phone: 12-10-2021 13:23-0400 Body height 158.8 cm Armando Orozco MD Work Phone: [facility] 12-10-2021 13:23-0400 Body weight 52.8 kg Armando Orozco MD Work Phone: [facility] 12-10-2021 13:23-0400 Diastolic blood pressure 72 mm[Hg] Armando Orozco MD Work Phone: [facility] 12-10-2021 13:23-0400 Heart rate 60 /min Armando Orozco MD Work Phone: [facility] 12-10-2021 13:23-0400 Respiratory rate 16 /min Armando Orozco MD Work Phone: [facility] 12-10-2021 13:23-0400 Systolic blood pressure 114 mm[Hg] Armando Orozco MD Work Phone: [facility] 11-01-2021 09:58-0500 Body height 160.[address] Armando Orozco Work Phone: [facility] Work Phone: 11-01-2021 09:58-0500 Body mass index (BMI) [Ratio] 20.3 kg/m2 Dr. Armando Orozco Work Phone: [facility] Work Phone: 11-01-2021 09:58-0500 Body weight 52.[address] Armando Orozco Work Phone: [facility] Work Phone: 11-01-2021 09:58-0500 Diastolic blood pressure 65 mm[Hg] Dr. Armando Orozco Work Phone: [facility] Work Phone: 11-01-2021 09:58-0500 Heart rate 74 /min Dr. Armando Orozco Work Phone: [facility] Work Phone: 11-01-2021 09:58-0500 Respiratory rate 18 /min Dr. Armando Orozco Work Phone: [facility] Work Phone: 11-01-2021 09:58-0500 SaO2% (BldA) [Mass fraction] 100 % Dr. Armando Orozco Work Phone: [facility] Work Phone: 11-01-2021 09:58-0500 Systolic blood pressure 126 mm[Hg] Dr. Armando Orozco Work Phone: [facility] Work Phone: 08-30-2021 02:53-0500 Body temperature 98 [degF] Dr. Armando Orozco Work Phone: [facility] Work Phone: 08-30-2021 02:53-0500 Diastolic blood pressure 63 mm[Hg] Dr. Armando Orozco Work Phone: [facility] Work Phone: 08-30-2021 02:53-0500 Heart rate 82 /min Dr. Armando Orozco Work Phone: [facility] Work Phone: 08-30-2021 02:53-0500 Respiratory rate 16 /min Dr. Armando Orozco Work Phone: [facility] Work Phone: 08-30-2021 02:53-0500 SaO2% (BldA) [Mass fraction] 99 % Dr. Armando Orozco Work Phone: [facility] Work Phone: 08-30-2021 02:53-0500 Systolic blood pressure 143 mm[Hg] Dr. Armando Orozco Work Phone: [facility] Work Phone: 08-29-2021 19:20-0500 Body mass index (BMI) [Ratio] 20 kg/m2 Dr. Armando Orozco Work Phone: [facility] Work Phone: 08-29-2021 19:20-0500 Body weight 51.[address] Armando Orozco Work Phone: [facility] Work Phone: 08-25-2021 09:28-0500 Body mass index (BMI) [Ratio] 20.5 kg/m2 Dr. Armando Orozco Work Phone: [facility] Work Phone: 08-25-2021 09:28-0500 Body weight 52.[address] Armando Orozco Work Phone: [facility] Work Phone: 08-25-2021 09:28-0500 Diastolic blood pressure 73 mm[Hg] Dr. Armando Orozco Work Phone: [facility] Work Phone: 08-25-2021 09:28-0500 Heart rate 71 /min Dr. Armando Orozco Work Phone: [facility] Work Phone: 08-25-2021 09:28-0500 Respiratory rate 18 /min Dr. Armando Orozco Work Phone: [facility] Work Phone: 08-25-2021 09:28-0500 SaO2% (BldA) [Mass fraction] 97 % Dr. Armando Orozco Work Phone: [facility] Work Phone: 08-25-2021 09:28-0500 Systolic blood pressure 104 mm[Hg] Dr. Armando Orozco Work Phone: [facility] Work Phone: 04-28-2021 09:56-0400 Body height 160 cm Love Anjel DANIEL Work Phone: [facility] 04-28-2021 09:56-0400 Body mass index (BMI) [Ratio] 20.37 kg/m2 Love Anjel DANIEL Work Phone: [facility] 04-28-2021 09:56-0400 Body weight 52.16 kg Love Ferraro CNP Work Phone: [facility] 04-28-2021 09:56-0400 Diastolic blood pressure 56 mm[Hg] Love Anjel DANIEL Work Phone: [facility] 04-28-2021 09:56-0400 Heart rate 70 /min Love Scott PHARMACOVIGILANCE SAFETY EXPERT Work Phone: [facility] 04-28-2021 09:56-0400 SaO2% (BldA) [Mass fraction] 99 % Love Anjel ADNIEL Work Phone: [facility] 04-28-2021 09:56-0400 Systolic blood pressure 120 mm[Hg] Love Ferraro PHARMACOVIGILANCE SAFETY EXPERT Work Phone: [facility] 04-21-2021 08:17-0400 Body temperature 97.59 [degF] Generic [facility] Work Phone: [facility] 04-21-2021 08:17-0400 Diastolic blood pressure 61 mm[Hg] [facility] Work Phone: [facility] 04-21-2021 08:17-0400 Heart rate 74 /min Generic [facility] Work Phone: [facility] 04-21-2021 08:17-0400 Respiratory rate 18 /min Generic [facility] Work Phone: [facility] 04-21-2021 08:17-0400 SaO2% (BldA) [Mass fraction] 96 % Generic [facility] Work Phone: [facility] 04-21-2021 08:17-0400 Systolic blood pressure 140 mm[Hg] Generic [facility] Work Phone: [facility] 04-18-2021 00:00-0400 Body height [address] [facility] Work Phone: [facility] 04-18-2021 00:00-0400 Body mass index (BMI) [Ratio] 20.15 kg/m2 Generic [facility] Work Phone: [facility] 04-18-2021 00:00-0400 Body weight 51.6 kg [facility] Work Phone: [facility] Encounters Encounter Date Encounter Type Care Provider Facility Start: 04-22-2025 End: 04-22-[address] Alma Lakhani MD -[facility] Work Phone: Start: 04-22-2025 End: 04-22-2025 [facility] Facility:[facility] Start: 04-22-[address] Frankie Quispe MD -Cardi[facility] Services Work Phone: Start: 04-15-2025 End: 04-15-[address] Alma Lakhani MD -[facility] Work Phone: Start: 04-15-2025 End: 04-15-[address] Armando Orozco MD Work Phone: -[facility] Start: 04-11-2025 End: 04-11-[address] Alma Lakhani MD -[facility] Work Phone: Start: 04-11-2025 End: 04-11-[address] Armando Orozco MD Work Phone: -[facility] Start: 03-11-2025 End: 03-11-[address] Frankie Quispe MD -[facility] Work Phone: Start: 03-11-2025 End: 03-11-[address] Armando Orozco MD Work Phone: [facility] Start: 03-11-2025 Non-patient / Non-visit Dr. Alma Lakhani MD -[facility] Work Phone: Start: 02-17-2025 End: 02-17-[address] Frankie Quispe MD -[facility] Start: 02-17-2025 End: 02-17-[address] Armando Orozco MD Work Phone: [facility] Work Phone: Start: 02-10-2025 End: 02-11-2025 Refill Maya Katz PA-C Work Phone: Neurology Comment on above: Refill Request Start: 02-07-2025 End: 02-07-2025 Patient encounter procedure Minoo SMITH -[facility] Work Phone: Start: 02-07-2025 End: 02-07-[address] Armando Orozco MD Work Phone: [facility] Work Phone: Start: 01-30-2025 End: 01-30-2025 Emergency department patient visit Dr. Bibiana James DO -Emergency Department Work Phone: Start: 01-30-2025 End: 01-30-2025 ambulatory ARMANDO OROZCO Facility:[facility] Start: 12-24-2024 End: 12-24-2024 ambulatory KUSHAL WELDON Facility:[facility] Start: 12-24-2024 End: 12-24-2024 Office outpatient visit 25 minutes Kushal Weldon APRN.CNP Work Phone: [facility] Comment on above: Chronic pain of both knees (Primary Dx); Calcium pyrophosphate arthropathy; Fibromyalgia; Essential hypertension Start: 12-18-2024 End: 12-18-[address] Armando Orozco MD Work Phone: [facility] Work Phone: Start: 12-18-2024 End: 12-18-[address] 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; History of stroke; Hypothyroidism, acquired; Sleep disorder; Myalgias; Dementia without behavioral disturbance, psychotic disturbance, mood disturbance, or anxiety, unspecified dementia severity, unspecified dementia type (HCC); Hyperlipidemia, unspecified hyperlipidemia type Start: 11-18-2024 End: 11-18-2024 ambulatory ARMANDO OROZCO Neurology Start: 11-18-2024 End: 11-18-2024 Patient encounter procedure Emg 1 Neur Ria (Max Weight: 850) Neurology Start: 11-17-2024 End: 11-18-2024 Refill Vega Granger MD Work Phone: Neurology Comment on above: Refill Request Start: 11-12-2024 End: 01-12-2025 Follow-up encounter Portia Call APRN.PHARMACOVIGILANCE SAFETY EXPERT Work Phone: Neurology Start: 11-05-2024 End: 11-05-2024 Patient encounter procedure Maya Katz PA-C Work Phone: Neurology Comment on above: Neuropathy (Primary Dx); Dementia without behavioral disturbance, psychotic disturbance, mood disturbance, or anxiety, unspecified dementia severity, unspecified dementia type (HCC); Unsteadiness; Frequent falls; Lacunar infarction (HCC); Right leg weakness Start: 11-05-2024 End: 11-05-2024 ambulatory ARMANDO OROZCO Facility:[facility] Start: 10-02-2024 End: 10-03-2024 ambulatory Maya Katz PA-C Work Phone: Neurology Comment on above: MRI results 11/14/19 24 lumber spine & MRI cervical spine Start: 09-30-2024 End: 09-30-2024 ambulatory EMELIA LYNN Facility:[facility] Start: 09-25-2024 End: 09-25-2024 Telephone encounter Emelia Lynn APRN.PHARMACOVIGILANCE SAFETY EXPERT Work Phone: [facility] [place] Comment on above: Results (Foot Xray ) Start: 09-25-2024 End: 09-25-2024 Patient encounter procedure [facility] Work Phone: Start: 09-25-2024 End: 09-25-2024 ambulatory Armando Orozco Facility:[facility] Start: 09-23-2024 End: 09-23-2024 ambulatory Emelia Lynn APRN.PHARMACOVIGILANCE SAFETY EXPERT Work Phone: [facility] [place] Start: 09-23-2024 End: 09-23-2024 Patient encounter procedure Emelia Lynn APRN.PHARMACOVIGILANCE SAFETY EXPERT Work Phone: [facility] [place] Comment on above: Please send referral to: [facility], [place] [address] [place] Start: 09-23-2024 End: 09-23-2024 Telephone encounter Armando Orozco MD Work Phone: [facility] [place] Comment on above: requesting lab order s Start: 09-19-2024 End: 09-19-2024 Subsequent hospital visit by physician Audra [facility] [place] Work Phone: Radiology Comment on above: Foot pain, right [M7 9.671] Start: 09-19-2024 End: 09-19-2024 Patient encounter procedure Emelia Lynn FLOR Work Phone: [facility] [place] Comment on above: Foot pain, right (Pr imary Dx); Weakness of foot, right Start: 09-19-2024 End: 09-19-2024 ambulatory ARMANDO OROZCO Facility:[facility] Start: 09-18-2024 End: 09-18-2024 ambulatory Armando Orozco MD Work Phone: [facility] [place] Comment on above: Ankle Injury Start: 09-12-2024 End: 09-12-2024 ambulatory Armando Orozco MD Work Phone: [facility] [place] Comment on above: Medication Problem Start: 08-30-2024 End: 08-30-2024 Patient encounter procedure Minoo SMITH [facility] Work Phone: Start: 08-30-2024 End: 08-30-2024 ambulatory Armando Orozco Facility:[facility] Start: 08-15-2024 End: 08-15-2024 Refill Armando Orozco MD Work Phone: [facility] [place] Comment on above: No Rx needed Start: 08-13-2024 End: 08-16-2024 Refill Maya Katz PA-C Work Phone: Neurology Comment on above: Refill Request Start: 08-12-2024 ambulatory Minoo Morillo Facility:[facility] Start: 08-12-2024 End: 08-12-2024 ambulatory Minoo Morillo Facility:[facility] Start: 07-01-2024 End: 07-01-2024 Refill Armando Orozco MD Work Phone: [facility] [place] Comment on above: Refill Request Start: 06-10-2024 End: 06-10-2024 ambulatory ARMANDO OROZCO Facility:[facility] Start: 06-10-2024 End: 06-10-2024 Patient encounter procedure Armando Orozco MD Work Phone: [facility] [place] Comment on above: Encounter for Medica re annual wellness exam (Primary Dx); Fibromyalgia; Myalgias; History of stroke; Imbalance; Dementia without behavioral disturbance, psychotic disturbance, mood disturbance, or anxiety, unspecified dementia severity, unspecified dementia type (HCC); Urinary incontinence, unspecified type; Encounter for screening examination for other mental health and behavioral disorders; Sleep disorder Start: 05-22-2024 End: 05-22-2024 Office outpatient new 60 minutes Verónica Wallace MD PhD Work Phone: [facility] Comment on above: 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), with mixed symptoms (Primary Dx) Start: 05-22-2024 End: 05-22-2024 ambulatory VERÓNICA WALLACE [facility] Start: 05-10-2024 End: 05-10-2024 Refill Vega Granger MD Work Phone: Neurology Comment on above: Refill Request Start: 04-04-2024 Telephone encounter Armando tan MD Work Phone: [facility] [place] Comment on above: FMLA letter problem Start: 03-22-2024 Telephone encounter Emelia finley RELIABILITY TECHNICIAN.PHARMACOVIGILANCE SAFETY EXPERT Work Phone: [facility] [place] Comment on above: Results (Urine Cultu re ) Start: 03-21-2024 Telephone encounter Emelia finley RELIABILITY TECHNICIAN.PHARMACOVIGILANCE SAFETY EXPERT Work Phone: [facility] [place] Comment on above: Results (Labs ) Start: 03-20-2024 End: 03-20-2024 ambulatory EMELIA LYNN Facility:[facility] Start: 03-20-2024 End: 03-20-2024 Patient encounter procedure Emelia Lynn RELIABILITY TECHNICIAN.PHARMACOVIGILANCE SAFETY EXPERT Work Phone: [facility] [place] Comment on above: Acute cystitis with hematuria (Primary Dx); Flank pain; Ataxic gait; Hypothyroidism, acquired; Essential hypertension Start: 02-27-2024 Telephone encounter Emelia sheriffmarisel RELIABILITY TECHNICIAN.PHARMACOVIGILANCE SAFETY EXPERT Work Phone: [facility] [place] Comment on above: consult neurology (2 nd opinion/) Start: 02-16-2024 Telephone encounter Emelia finley RELIABILITY TECHNICIAN.PHARMACOVIGILANCE SAFETY EXPERT Work Phone: [facility] [place] Comment on above: Results (Urine Cultu re ) Start: 02-14-2024 End: 02-14-2024 ambulatory [facility] Facility:[facility] Start: 02-14-2024 End: 02-14-2024 [facility] RELIABILITY TECHNICIAN.PHARMACOVIGILANCE SAFETY EXPERT Work Phone: [facility] [place] Comment on above: Urinary incontinence , unspecified type (Primary Dx); Essential hypertension; Dementia without behavioral disturbance (HCC) Start: 02-12-2024 Telephone encounter Vega Granger MD Work Phone: Neurology Start: 01-29-2024 Telephone encounter Emeliaevan finley RELIABILITY TECHNICIAN.PHARMACOVIGILANCE SAFETY EXPERT Work Phone: [facility] [place] Comment on above: Patient Question Start: 01-26-2024 Telephone encounter Emeliaevan sheriffmarisel RELIABILITY TECHNICIAN.PHARMACOVIGILANCE SAFETY EXPERT Work Phone: [facility] [place] Start: 01-19-2024 ambulatory [facility] Provider [facility] Vel[facility] Comment on above: Fax numbers Start: 01-19-2024 E-mail encounter fro m caregiver [facility] Provider [facility] [place] Start: 01-18-2024 Telephone encounter Emelia finley RELIABILITY TECHNICIAN.PHARMACOVIGILANCE SAFETY EXPERT Work Phone: [facility] [place] Comment on above: FMLA forms Start: 01-15-2024 Telephone encounter Armando tan MD Work Phone: [facility] [place] Comment on above: Referral for endosco py Start: 01-12-2024 End: 01-12-2024 Patient encounter procedure Vega Granger MD Work Phone: Neurology Comment on above: Dementia without beh avioral disturbance, psychotic disturbance, mood disturbance, or anxiety, unspecified dementia severity, unspecified dementia type (HCC) (Primary Dx); Lacunar infarction (HCC); Intracranial vascular stenosis; Unsteadiness; Frequent falls; Headaches Start: 01-11-2024 End: 01-11-2024 Patient encounter procedure Emelia Lynn APRN.PHARMACOVIGILANCE SAFETY EXPERT Work Phone: [facility] Comment on above: Hospital discharge f ollow-up (Primary Dx); Complicated migraine; URI, acute; Anxiety with depression; Hypothyroidism, acquired; Essential hypertension Start: 01-09-2024 Patient Outreach Armando najera MD Work Phone: [facility] Comment on above: Transition Of Care Start: 01-09-2024 Refill Emelia Lynn APRN.PHARMACOVIGILANCE SAFETY EXPERT Work Phone: [facility] Comment on above: Refill Request Start: 01-08-2024 Refill Vega bolanos MD Work Phone: Neurology Comment on above: Refill Request Start: 01-06-2024 Dr. Armando cramer Work Phone: [facility] Work Phone: Start: 01-05-2024 Dr. Armando cramer Work Phone: [facility] Work Phone: Start: 01-04-2024 End: 01-06-2024 Evaluation and management of inpatient Dr. Armando Orozco [facility] Work [facility]: Start: 01-04-2024 End: 01-06-2024 Dr. Armando Orozco [facility] Work [facility]: Start: 12-30-2023 Refill Emelia Lynn APRN.PHARMACOVIGILANCE SAFETY EXPERT Work Phone: [facility] Comment on above: Refill Request Start: 12-22-2023 Telephone encounter Emelia finley APRN.PHARMACOVIGILANCE SAFETY EXPERT Work Phone: [facility] Comment on above: Results (Labs ) Start: 12-21-2023 End: 12-21-2023 Patient encounter procedure Emelia Barbara RAY Work Phone: [facility] Comment on above: Hospital discharge f ollow-up (Primary Dx); Ataxic gait; Chronic midline low back pain without sciatica; Myalgias; Essential hypertension Start: 12-20-2023 End: 12-20-[address] Armando Orozco Work Phone: [facility] Work Phone: Start: 12-20-2023 End: 12-20-[address] Armando Orozco Work Phone: [facility] Work Phone: Start: 12-20-2023 End: 12-20-2023 Dr. Armanod Orozco Work Phone: [facility] Work Phone: Start: 12-19-2023 Telephone encounter Vega Granger MD Work Phone: Neurology Start: 11-29-2023 End: 11-29-[address] Armando Orozco Work Phone: [facility] Work Phone: Start: 11-29-2023 End: 11-29-2023 Dr. Armando Orozco Work Phone: 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 Armando Orozco Work Phone: [facility] Work Phone: Start: 11-15-2023 Dr. Armando cramer Work Phone: [facility] Work Phone: Start: 11-14-2023 Non-patient / Non-visit Dr. Armando Orozco Work Phone: [facility] Start: 11-14-2023 Dr. Armando cramer Work Phone: [facility] Start: 11-13-2023 Evaluation and management of inpatient Dr. Armando Orozco Work Phone: [facility] Work Phone: Start: 11-13-[address] Armando Orozco Work Phone: [facility] Work Phone: Start: 11-13-2023 Non-patient / Non-visit Dr. Armando Orozco Work Phone: [facility] Work Phone: Start: 11-13-2023 End: 11-15-2023 Evaluation and management of inpatient Dr. Armando Orozco Work Phone: [facility] Work Phone: Start: 11-13-2023 End: 11-15-2023 Dr. Armando Orozco Work Phone: [facility] Work Phone: Start: 11-02-2023 End: 11-02-2023 Subsequent hospital visit by physician [facility] (I-Stat/1.5t) Work Phone: Radiology Comment on above: Canceled (CC cx: Fin ancial) Start: 10-31-2023 End: 10-31-2023 Patient encounter procedure Carlin Huffman PA-C Work Phone: Urology Comment on above: Kidney stone (Primar y Dx); Urgency of urination Start: 10-26-2023 Telephone encounter Emelia Barbour nhof RELIABILITY TECHNICIAN.PHARMACOVIGILANCE SAFETY EXPERT Work Phone: [facility] [place] Comment on above: Results; Orders (US ladder and kidney) Start: 10-26-2023 End: 10-26-2023 Subsequent hospital visit by physician [facility] Work Phone: Radiology Comment on above: Microscopic hematuri a [R31.29] Start: 10-25-2023 Telephone encounter Maya schaffer PA-C Work Phone: Neurology Start: 10-24-2023 E-mail encounter fro m caregiver [facility] Provider [facility] Start: 10-24-2023 Patient encounter procedure [facility] Provider [facility] Comment on above: Instructions for you r upcoming appointment Start: 10-18-2023 Telephone encounter Maya schaffer PA-C Work Phone: Neurology Comment on above: [facility] Start: 10-16-2023 End: 10-16-[address] [facility] Work Phone: Start: 10-16-2023 End: 10-16-2023 Dr. Armando Orozco Work Phone: [facility] Work Phone: Start: 10-12-2023 Refill Armando roman MD Work Phone: [facility] Comment on above: Refill Request Results (Urine ); Or ders Start: 09-27-2023 End: 09-27-2023 ambulatory VEGA GRANGER JR Facility:[facility] Start: 09-18-2023 End: 09-18-2023 Emergency department patient visit Dr. Armando Orozco Work Phone: [facility]-Emergency Department Work Phone: Start: 09-18-2023 End: 09-18-2023 Dr. Armando Orozco Work Phone: [facility]Emer[facility] Work Phone: Start: 09-13-2023 End: 09-13-2023 Subsequent hospital visit by physician [facility] Work Phone: Radiology Comment on above: COVID-19 [U07.1] Start: 08-23-2023 End: 08-23-[address] Armando Orozco Work Phone: [facility] Work Phone: Start: 08-23-2023 End: 08-23-[address] Armando Orozco Work Phone: [facility] Work Phone: Start: 07-26-2023 Non-patient / Non-visit Dr. Armando Orozco Work Phone: [facility] Start: 07-26-2023 End: 07-26-[address] Armando Orozco Work Phone: [facility] Work Phone: Start: 07-26-2023 End: 07-26-[address] Armando Orozco Work Phone: [facility]Cardi[facility] Work Phone: Start: 07-26-2023 End: 07-30-2023 ambulatory JUAN QUINTANA [facility] Start: 07-26-2023 End: 07-26-2023 Office outpatient new 45 minutes Maciej Birmingham DPM Work Phone: 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 Comment on above: Left foot pain (Prim johanna Dx); Callus of foot; Chronic pain of both knees Start: 06-23-2023 Telephone encounter Armando tan MD Work Phone: [facility] [place] Comment on above: Patient Question Start: 05-12-2023 End: 05-12-2023 Patient encounter procedure Sanna Rubin RELIABILITY TECHNICIAN.PHARMACOVIGILANCE SAFETY EXPERT Work Phone: [facility] [place] Comment on above: Blister (Primary Dx) ; Foot pain, left; Fall, initial encounter Start: 05-12-2023 Telephone encounter Armando tan MD Work Phone: [facility] [place] Comment on above: Patient Update Start: 05-05-2023 End: 05-05-2023 Subsequent hospital visit by physician [facility] Work Phone: Radiology Comment on above: Foot pain, left [M79 .672] Start: 05-05-2023 End: 05-05-2023 Office outpatient visit 15 minutes Jose Keller RELIABILITY TECHNICIAN.PHARMACOVIGILANCE SAFETY EXPERT Work Phone: [facility] Comment on above: Foot pain, left (Princess missael Dx); Abrasion of right knee, initial encounter Start: 04-26-2023 Telephone encounter Emelia finley RELIABILITY TECHNICIAN.PHARMACOVIGILANCE SAFETY EXPERT Work Phone: [facility] Comment on above: Results (Xray ) Start: 04-26-2023 End: 04-26-[address] Armando Orozco Work Phone: [facility] Work Phone: Start: 04-26-2023 End: 04-26-[address] [facility]rozco [facility] [facility] Work Phone: Start: 04-20-2023 ambulatory ARMANDO Aldana ity:[facility] Start: 04-20-2023 End: 04-20-2023 Subsequent hospital visit by physician [facility] Comment on above: Fall, initial encoun ter [W19.XXXA] Injury of head, init ial encounter [S09.90XA] Start: 04-20-2023 End: 04-20-2023 Patient encounter procedure Emelia Lynn APRN.PHARMACOVIGILANCE SAFETY EXPERT Work Phone: [facility] Comment on above: Fall, initial encoun ter (Primary Dx); Concussion without loss of consciousness, initial encounter; Injury of head, initial encounter; Acute pain of right knee; Contusion of cheek, initial encounter; Memory loss Start: 04-17-2023 Telephone encounter Armando tan MD Work Phone: [facility] Comment on above: Orders (Mammogram Sc reening) Start: 04-12-2023 Telephone encounter Armando tan MD Work Phone: [facility] Comment on above: Lab Orders Start: 04-12-2023 End: 04-12-[address] Armando Orozco Work Phone: [facility] Work Phone: Start: 04-12-2023 End: 04-12-[address] Armando Orozco Work Phone: [facility] Work Phone: Start: 03-29-2023 End: 03-29-2023 Patient encounter procedure Emelia Lynn APRN.PHARMACOVIGILANCE SAFETY EXPERT Work Phone: [facility] Comment on above: Essential hypertensi on (Primary Dx); Balance problem; Dizziness; Decreased muscle strength; Dark urine; Generalized pain Start: 03-16-2023 Telephone encounter Armando tan MD Work Phone: [facility] Comment on above: Medication Question Start: 03-07-2023 End: 03-07-2023 Patient encounter procedure Armando Orozco MD Work Phone: [facility] [place] Comment on above: 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 Armando Orozco Work Phone: [facility] Work Phone: Start: 02-15-2023 PTFUADULT4, Provider : Inderjit Plaza, Status: Pen, Time: 5:00 PM Armando Orozco Work Phone: [facility] Work Phone: Start: 02-13-[address] Armando Orozco Facility:[id number] Start: 02-13-2023 Patient encounter procedure [facility] Orozco [facility] Work Phone: Start: 02-10-2023 PTFUADULT4, Provider : Inderjit Plaza, Status: Pen, Time: 5:15 PM Armando Orozco Work Phone: [facility] Work Phone: Start: 02-10-[address] Armando Orozco Facility:[id number] Start: 02-08-2023 Patient encounter procedure Armando Orozco Work Phone: [facility] Work Phone: Start: 02-08-[address] Armando Orozco Facility:[id number] Start: 01-23-2023 Patient encounter procedure Armando Orozco Work Phone: [facility] Work Phone: Start: 01-23-2023 [address]ulatory Mr. Frank Varghese ty:[id number] Start: 01-20-2023 ambulatory Mr. Frank Varghese ty:[id number] Start: 01-20-2023 Patient encounter procedure Armando Orozco Work Phone: [facility] Work Phone: Start: 01-16-2023 ambulatory Mr. Frank Varghese ty:[id number] Start: 01-13-[address] Armando Orozco Facility:[id number] Start: 01-13-2023 Telephone encounter Armando tan MD Work Phone: [facility] [place] Comment on above: Opened In Error Results Start: 01-12-2023 Refill Kushal BROUSSARD RN.PHARMACOVIGILANCE SAFETY EXPERT Work Phone: [facility] Comment on above: Refill Request Start: 01-12-2023 End: 01-12-2023 Patient encounter procedure Sonia Damon APRN.PHARMACOVIGILANCE SAFETY EXPERT Work Phone: [facility] Comment on above: Chronic right-sided low back pain, unspecified whether sciatica present (Primary Dx); Hypothyroidism, acquired Start: 01-11-2023 ambulatory Armando roman MD Work Phone: [facility] Comment on above: Back Pain Start: 01-09-[address] Armando Orozco Facility:[id number] Start: 01-09-2023 Patient encounter procedure Armando Orozco Work Phone: [facility] Work Phone: Start: 12-09-2022 Patient encounter procedure Armando Orozco Work Phone[facility] Work Phone: Start: 12-09-[address] Armando Orozco Facility:[id number] Start: 12-07-2022 End: 12-07-[address] Armando Orozco Work Phone: [facility] Work Phone: Start: 12-07-2022 End: 12-07-[address] Armando Orozco Work Phone: [facility] Start: 11-30-2022 Patient encounter procedure [facility]rozco [facility] Work [facility]: Start: 11-30-2022 [address]ulatory Mr. Cristian Garrison nanette Juan Danielwilbermichelle Facility:[id number] Start: 10-07-2022 Refill Armando roman MD Work Phone: [facility] Comment on above: Refill Request Hair Loss Start: 10-05-2022 Patient encounter procedure [facility]ando Orozco [facility] Mauri C Work Phone: Start: 09-28-2022 Non-patient / Non-visit Dr. Armando Orozco Work Phone: [facility] Start: 09-28-2022 End: 09-28-[address] Armando Orozco Work Phone: [facility] Work Phone: Start: 09-28-2022 End: 09-28-[address] Armando Orozco Work Phone: [facility] Start: 09-26-2022 Patient encounter procedure Armando Orozco Work Phone: [facility] [address] Work Phone: Start: 09-26-[address] Armando Orozco Facility:[id number] Start: 09-14-2022 End: 09-14-[address] Armando Orozco Work Phone: [facility] Work Phone: Start: 09-14-2022 End: 09-14-[address] Armando Orozco Work Phone: [facility] Start: 09-08-2022 Telephone encounter Armando tan MD Work Phone: [facility] Comment on above: Results Start: 09-08-2022 End: 09-08-[address] Armando Orozco Work Phone: [facility] [facility] Start: 09-07-2022 Telephone encounter Armando tan MD Work Phone: [facility] Comment on above: Orders Start: 08-10-[address] Ludmila ny [facility] Facility:[facility] Start: 08-10-2022 Patient encounter procedure Armando Orozco Work Phone: [facility] Mauri C Work Phone: Start: 07-14-2022 Telephone encounter Rajat Walsh MD Work Phone: [facility] Comment on above: Results Start: 07-13-2022 Telephone encounter Armando tan MD Work Phone: [facility] [place] Comment on above: FMLA Paperwork Start: 07-13-2022 End: 07-13-2022 Patient encounter procedure Nik Walsh MD Work Phone: [facility] [place] Comment on above: Postsurgical hypothy roidism (Primary Dx) Start: 07-11-2022 Office outpatient ne w 45 minutes Armando Orozco Work Phone: [facility] Work Phone: Start: 07-11-2022 Patient encounter procedure Armando Orozco Work Phone: [facility] Work Phone: Start: 07-11-[address] Ludmila Warren Facility:[id number] Start: 07-11-[address] Ludmila Warren Facility:[id number] Start: 06-22-2022 End: 06-22-[address] Armando Orozco Work Phone: [facility] Start: 06-22-2022 End: 06-22-[address] Armando Orozco Work Phone: [facility] Start: 05-05-2022 End: 05-05-2022 Patient encounter procedure Emelia Lynn APRN.PHARMACOVIGILANCE SAFETY EXPERT Work Phone: [facility] Comment on above: Postsurgical hypothy roidism (Primary Dx); Anxiety with depression; Chronic insomnia; Essential hypertension; Hyperlipidemia, unspecified hyperlipidemia type Start: 05-04-2022 End: 05-04-[address] Armando Orozco Work Phone: [facility] Work Phone: Start: 05-04-2022 End: 05-04-[address] Armando Orozco Work Phone: [facility] Start: 04-27-2022 End: 04-27-[address] Armando Orozco Work Phone: [facility] Work Phone: Start: 04-27-2022 End: 04-27-[address] Armando Orozco Work Phone: [facility] Start: 03-31-2022 Chart abstracting Armando cramer MD Work Phone: [facility] Comment on above: External Documents ( Gastro H&P) Start: 03-30-2022 End: 03-30-[address] Armando Orozco Work Phone: [facility] Start: 02-05-2022 Get Medical Advice Armando boone MD Work Phone: [facility] Comment on above: refill for euthyrox 100mg Start: 02-03-2022 Telephone encounter Armando tan MD Work Phone: [facility] Comment on above: Patient Question Start: 01-28-2022 End: 01-28-[address] Armando Orozco Work Phone: [facility] Start: 01-25-2022 End: 01-25-[address] Armando Orozco Work Phone: [facility] Start: 01-11-2022 End: 01-11-[address] Armando Orozco Work Phone: [facility] Start: 01-06-2022 End: 01-06-[address] Armando Orozco Work Phone: [facility] Start: 01-03-2022 End: 01-03-[address] Armando Orozco Work Phone: [facility] Start: 12-10-2021 End: 12-10-2021 Patient encounter procedure Armando Orozco MD Work Phone: [facility] Comment on above: Medicare annual well ness visit, subsequent (Primary Dx); Essential hypertension; 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 Start: 12-02-2021 End: 12-02-[address] Armando [facility]rozco [facility] Start: 11-01-2021 End: 11-01-[address] Armando Orozco Work Phone: [facility] Start: 11-01-2021 End: 11-01-[address] Armando Orozco Work Phone: [facility] Start: 10-27-2021 End: 10-27-2021 [facility] Phone: [facility] Comment on above: ov Start: 10-15-2021 End: 10-15-[address] Armando Orozco Work Phone: [facility] Virtual Start: 10-08-2021 End: 10-08-[address] Armando Orozco Work Phone: [facility] Start: 09-20-2021 Non-patient / Non-visit Dr. Armando Orozco Work Phone: [facility] Start: 09-20-2021 End: 09-20-[address] Armando Orozco Work Phone: [facility]Cardi[facility] Start: 09-09-2021 End: 09-09-[address] Armando Orozco Work Phone: [facility] Start: 08-30-2021 End: 09-03-2021 Evaluation and management of inpatient GASTROENTEROLOGY CONSULT Facility:[facility] Start: 08-30-2021 Evaluation and management of inpatient ONEAL C NICK Facility:[facility] Start: 08-29-2021 End: 08-30-2021 Emergency department patient visit Dr. Armando Orozco Work Phone: [facility]Emergency Department Start: 08-25-[address] Armando Orozco Work Phone: [facility] Start: 08-25-2021 End: 08-25-[address] Armando Orozco Work Phone: [facility] Start: 08-24-2021 End: 08-24-[address] Armando Orozco Work Phone: [facility] Start: 08-08-2021 End: 08-18-2021 Evaluation and management of inpatient ESTELLA ANDES Facility:[facility] Start: 05-28-2021 End: 05-31-2021 ambulatory IZABELLA SHARMA [facility] Start: 05-27-2021 End: 05-28-2021 Emergency department patient visit RAJEEV LABOY REESE [facility] Start: 05-20-2021 Refill Diandra Bueno RN [facility] Comment on above: Medication Refill Start: 04-28-2021 End: 04-28-2021 Office outpatient visit 15 minutes Love Ferraro CNP Work Phone: [facility] Comment on above: Coronary artery dise ase involving tejon coronary artery of tejon heart, unspecified whether angina present Start: 04-20-2021 End: 04-20-2021 Orders Only Diandra Bueno RN [facility] Comment on above: Coronary artery dise ase, unspecified vessel or lesion type, unspecified whether angina present, unspecified whether tejon or transplanted heart (Primary Dx); Post PTCA Phase II Cardiac Sebastian ab Start: 04-18-2021 End: 04-21-2021 Evaluation and management of inpatient [facility] Start: 04-17-2021 End: 04-21-2021 Evaluation and management of inpatient [facility] Work Phone: [facility] Cardiovascular Step Down Start: 04-15-2021 End: 04-15-2021 Subsequent hospital visit by physician Audra [facility] [place] Work Phone: Radiology Comment on above: Bilateral hand pain [M79.641, M79.642] Start: 04-13-2021 End: 04-13-2021 Subsequent hospital visit by physician Xr [facility] [place] Work Phone: Radiology Comment on above: Left hip pain [M25.5 52] Start: 05-16-2017 End: 05-17-2017 Ambulatory Armando Orozco Facility:[facility] Procedures Date Procedure Procedure Detail Performing Clinician Start: 02-17-2025 X-ray of lumbosacral spine Dr. Armando Orozco MD Work Phone: Start: 02-17-[address] Armando Orozco MD Work Phone: Start: 01-30-2025 CT of chest without contrast Dr. Armando Orozco MD Work Phone: Start: 01-30-2025 CT of head without contrast Dr. Armando Orozco MD Work Phone: Start: 11-18-2024 Nerve conduction guera dies 5-6 studies Maya Katz PA-C Work Phone: Start: 03-20-2024 Urnls dip stick/tabl et rgnt auto w/o microscopy [facility] RELIABILITY TECHNICIAN.PHARMACOVIGILANCE SAFETY EXPERT Work Phone: Start: 03-20-2024 Thyrotropin [Units/v olume] in Serum or Plasma Verónica Wallace MD PhD Work Phone: Start: 02-14-2024 Urnls dip stick/tabl et reagent auto microscopy Emelia Batistaho RELIABILITY TECHNICIAN.PHARMACOVIGILANCE SAFETY EXPERT Work Phone: Start: 02-14-2024 Urnls dip stick/tabl et rgnt auto w/o microscopy Emelia [facility] RELIABILITY TECHNICIAN.PHARMACOVIGILANCE SAFETY EXPERT Work Phone: Start: 01-06-2024 CT of head without contrast Dr. Armando Orozco Work Phone: Start: 01-05-[address] Armando Orozco Work Phone: Start: 01-05-2024 Dr. Armando boone Work Phone: Start: 01-04-2024 MRI of brain without contrast Dr. Armando Orozco Work Phone: Start: 01-04-2024 Plain chest X-ray Dr. Kisha Orozco Work Phone: Start: 01-04-2024 CT angiography of he ad and neck Dr. Armando Orozco Work Phone: Start: 01-04-2024 CT of head without contrast Dr. Armando Orozco Work Phone: Start: 11-15-2023 MRI of lumbar spine Dr. Armando Orozco Work Phone: Start: 11-14-2023 MRI of brain with contrast Dr. Armando Orozco Work Phone: Start: 11-14-2023 MRI of cervical spin e with contrast Dr. Armando Orozco Work Phone: Start: 11-14-2023 MRI of thoracic spin e with contrast Dr. Armando Orozco Work Phone: Start: 11-13-2023 Plain chest X-ray Dr. Kisha Orozco Work Phone: Start: 11-13-2023 CT angiography of he ad and neck Dr. Armando Orozco Work Phone: Start: 10-31-2023 Urnls dip stick/tabl et rgnt auto w/o microscopy Carlin Huffman PA-C Work Phone: Start: 10-26-2023 Us retroperitoneal r eal time w/image complete Emelia Lynn RELIABILITY TECHNICIAN.PHARMACOVIGILANCE SAFETY EXPERT Work Phone: Start: 09-18-2023 X-ray of chest posteroanterior view Dr. Armando Orozco Work Phone: Start: 09-13-2023 Radiologic exam ches t 2 views Emelia Lynn APRN.PHARMACOVIGILANCE SAFETY EXPERT Work Phone: Start: 08-23-2023 CT angiography of he ad and neck Dr. Armando Orozco Work Phone: Start: 07-26-2023 Arthrocentesis aspir &/inj major jt/bursa w/o us Juan Kilpatrick PHARMACOVIGILANCE SAFETY EXPERT Work Phone: Start: 07-05-2023 Radex foot complete minimum 3 views Maciej Birmingham DPM Work Phone: Start: 05-05-2023 Radex foot complete minimum 3 views Jose Keller RELIABILITY TECHNICIAN.PHARMACOVIGILANCE SAFETY EXPERT Work Phone: Start: 04-26-2023 Screening mammography D lucía Orozco Work Phone: Start: 04-20-2023 Ct head/brain w/o co ntrast material Emelia Lynn APRN.PHARMACOVIGILANCE SAFETY EXPERT Work Phone: Start: 03-29-2023 Urnls dip stick/tabl et rgnt auto w/o microscopy Emelia Lynn APRN.PHARMACOVIGILANCE SAFETY EXPERT Work Phone: Start: 09-28-2022 Cardiovascular stres s test using pharmacologic stress agent Dr. Armando Orozco Work Phone: Start: 01-25-2022 Screening mammography Martin Orozco Work Phone: Start: 01-11-2022 CT of thorax with contrast Dr. Armando Orozco Work Phone: Start: 12-02-2021 LDL CHOLESTEROL DIR [facility] Provider Start: 11-01-2021 CT of head without contrast Dr. Armando Orozco Work Phone: Start: 10-27-2021 Radiologic exam knee complete 4/more views Emelia Lynn APRN.PHARMACOVIGILANCE SAFETY EXPERT Work Phone: Start: 09-20-2021 Nuclear Stress Test - Chemical Dr. Armando Orozco Work Phone: Start: 08-30-2021 Computed tomography angiography of abdominal and/or pelvic blood vessel Dr. Armando Orozco Work Phone: Start: 08-30-2021 Antibody screen ONEAL ROMERO Comment on above: Result Comment: @ 07:56 by EKN: Performed By: #### X M #### [facility] (DEFAULT) [address] [address] Start: 08-29-2021 Measurement of occul t blood in stool specimen using immunoassay Dr. Armando Orozco Work Phone: Start: 08-08-2021 Antibody screen ONEAL ROMERO Comment on above: Performed By: #### X M #### [facility] (DEFAULT) [address] [address] Start: 05-31-2021 Adult depression scr eening assessment Maciej Birmingham Jr., DPM Work Phone: Start: 04-20-2021 Potassium serum plas ma/whole blood Alivia Castellanos MD Work Phone: Start: 04-20-2021 Echo tthrc r-t 2d w/ wom-mode compl spec&colr d Marietta Beltran PHARMACOVIGILANCE SAFETY EXPERT Work Phone: Start: 04-20-2021 Potassium serum plas ma/whole blood Shantal Hidalgoevan Salazar PHARMACOVIGILANCE SAFETY EXPERT Work Phone: Start: 04-20-2021 Duplex scan extracra nial art compl bi study Joselyn Urbina MD Work Phone: Start: 04-20-2021 Basic metabolic pane l calcium total Joselyn Urbina MD Work Phone: Start: 04-19-2021 Ecg routine ecg w/le ast 12 lds trcg only w/o i&r Antonio Tian MD Work Phone: Start: 04-19-2021 Cardiac catheterization Joselyn Urbina MD Work Phone: Start: 04-19-2021 Mri brain brain stem w/o contrast material Og Blancas MD Work Phone: Start: 04-19-2021 Basic metabolic pane l calcium total Joselyn Urbina MD Work Phone: Start: 04-18-2021 Assay of troponin quantitative Moo Zuniga MD Work Phone: Start: 04-18-2021 Assay of troponin quantitative Moo Zuniga MD Work Phone: Start: 04-18-2021 Ecg routine ecg w/le ast 12 lds trcg only w/o i&r Moo Zuniga MD Work Phone: Start: 04-15-2021 Radex hand minimum 3 views Katlin NAJERAC Work Phone: Start: 04-13-2021 Radex hip unilateral with pelvis 2-3 views Meagan Gallegos RELIABILITY TECHNICIAN.PHARMACOVIGILANCE SAFETY EXPERT Work Phone: Start: 01-14-2021 Mammography Diandra thacker RN Plan of Treatment Date Care Activity Detail Author Start: 12-04-2029 DTaP/Tdap/Td Vaccines (4 - Td or Tdap) DTaP/Tdap/Td Vaccines (4 - Td or Tdap) [facility] Start: 12-04-2029 Tetanus vaccination Tetanus: Every [address] [facility] Start: 12-04-2029 Urine microalbumin profile [facility] Start: 11-05-2027 Diabetes Screening Diabetes Screening [facility] Start: 03-20-2027 Diabetes Screening Diabetes Screening [facility] Start: 12-20-2026 Diabetes Screening Diabetes Screening [facility] Start: 12-24-2025 Annual PCP Team Chronic Disease Visit Annual PCP Team Chronic Disease Visit [facility] Start: 12-10-2025 Annual PCP Team Chronic Disease Visit Annual PCP Team Chronic Disease Visit [facility] Start: 09-19-2025 Annual PCP Team Chronic Disease Visit Annual PCP Team Chronic Disease Visit [facility] Start: 06-12-2025 End: 06-12-2025 Patient encounter procedure 06/12/2025 1:20 PM EDT Office Visit [facility] [place] [address] [place], [place] [id number] Armando Orozco MD [address] [place], [place] [id number] Medicare Wellness/6 mo f/u [facility] [place] Comment on above: Medicare Wellness/6 mo f/u Start: 06-10-2025 Annual PCP Team Chronic Disease Visit Annual PCP Team Chronic Disease Visit [facility] Start: 06-10-2025 Anxiety Screening Anxiety Screening [facility] Start: 06-10-2025 BP Controlled (<130/80) BP Controlled (<130/80) [facility] Start: 06-10-2025 Covid-19 Vaccine ( season) Covid-19 Vaccine ( season) [facility] Comment on above: Postponed from 05/12/2024 (Declined at t his time) Start: 06-10-2025 RSV Vaccine (1 - 1-dose 75+ series) RSV Vaccine (1 - 1-dose 75+ series) [facility] Comment on above: Postponed from 2019 (Declined at t his time) Start: 05-14-2025 End: 05-14-2025 Patient encounter procedure 05/14/2025 4:30 PM EDT Office Visit Neurology [address] [facility] [place] [id number] Maya Katz PA-C [address] [facility] [place] [id number] 3 month follow for meds Neurology Comment on above: 3 month follow for meds Start: 05-12-2025 Influenza vaccination Influenza Vaccine (Season Ended) [facility] Start: 03-20-2025 Annual PCP Team Chronic Disease Visit Annual PCP Team Chronic Disease Visit [facility] Start: 03-20-2025 Thyroid stimulating hormone measurement TSH Level [facility] Start: 03-10-2025 Influenza vaccination Influenza Vaccine (#1) Adan Kari hernández Comment on above: Postponed from 05/12/2024 (Declined at t his time) Start: 02-17-2025 X-ray of lumbosacral spine L/S Spine Min 4 Views [facility] Start: 02-17-2025 XR Spine Lumbar and Sacrum GE 4 Views [facility] Start: 02-17-2025 XR Thoracic spine Views [facility] Start: 02-17-2025 Xray thoracic spine Thoracic Spine 2 Views [facility] Start: 02-13-2025 Annual PCP Team Chronic Disease Visit Annual PCP Team Chronic Disease Visit [facility] Start: 01-30-2025 [facility] Start: 01-21-2025 End: 01-21-2025 Patient encounter procedure 01/21/2025 1:20 PM EDT Office Visit [facility] [place] [address] [facility], [place] [phone] Kushal Weldon APRN.PHARMACOVIGILANCE SAFETY EXPERT [address] [place], [place] [phone] 1 month follow up BP [facility] [place] Comment on above: 1 month follow up BP Start: 01-10-2025 Annual PCP Team Chronic Disease Visit Annual PCP Team Chronic Disease Visit [facility] Start: 12-20-2024 Annual PCP Team Chronic Disease Visit Annual PCP Team Chronic Disease Visit [facility] Start: 12-10-2024 End: 12-10-2024 Patient encounter procedure 12/10/2024 1:20 PM EDT Office Visit Family Medicine [place] [address] [facility] [place] [address] Armando Orozco MD [address] [facility] [place] [address] 6 mo f/u Family Medicine [place] Comment on above: 6 mo f/u Start: 11-19-2024 Annual PCP Team Chronic Disease Visit Annual PCP Team Chronic Disease Visit [facility] Start: 11-18-2024 End: 11-18-2024 ambulatory 11/18/2024 10:00 AM EDT Procedure Neurology [address] [place] [address] Gen Lower Extremity(STANDARD) Neurology Comment on above: Gen Lower Extremity(STANDARD) Start: 11-05-2024 End: 02-04-2025 C reactive protein [Mass/volume] in Serum or Plasma [facility] Comment on above: Expected: 11/05/2024, Expires: Start: 11-05-2024 End: 02-04-2025 Cobalamin (Vitamin B12) [Mass/volume] in Serum or Plasma [facility] Comment on above: Expected: 11/05/2024, Expires: Start: 11-05-2024 End: 02-04-2025 Comprehensive metabolic 2000 panel - Serum or Plasma [facility] Comment on above: Expected: 11/05/2024, Expires: Start: 11-05-2024 End: 02-04-2025 Erythrocyte sedimentation rate [facility] Comment on above: Expected: 11/05/2024, Expires: Start: 11-05-2024 End: 02-04-2025 Hemoglobin A1c in Blood [facility] Comment on above: Expected: 11/05/2024, Expires: Start: 11-05-2024 End: 02-04-2025 Methylmalonate [Moles/volume] in Serum or Plasma [facility] Comment on above: Expected: 11/05/2024, Expires: Start: 11-05-2024 End: 02-04-2025 PROT ELECT SERUM WITH JUANA AND INTERP [facility] Comment on above: Expected: 11/05/2024, Expires: Start: 11-05-2024 End: 02-04-2025 Pyridoxine [Mass/volume] in Serum or Plasma [facility] Comment on above: Expected: 11/05/2024, Expires: Start: 11-05-2024 End: 02-04-2025 Thyrotropin [Units/volume] in Serum or Plasma [facility] Comment on above: Expected: 11/05/2024, Expires: Start: 11-05-2024 End: 02-04-2025 VITAMIN B1 (THIAMINE), WHOLE BLOOD [facility] Comment on above: Expected: 11/05/2024, Expires: Start: 11-05-2024 End: 11-05-2024 Patient encounter procedure 11/05/2024 11:30 AM EST Office Visit Neurology [address] [place], [place] [address] Maya Katz PA-C [address] [facility] [place] [address] Dementia follow up Neurology Comment on above: Dementia follow up Start: 2024 Annual PCP Team Chronic Disease Visit Annual PCP Team Chronic Disease Visit [facility] Start: 09-23-2024 End: 12-23-2024 Thyrotropin [Units/volume] in Serum or Plasma THYROID STIMULATING HORMONE Lab Routine Hypothyroidism, acquired Expected: 09/23/2024, Expires: 12/23/2024 [facility] Work Phone: Comment on above: Expected: 09/23/2024, Expires: Start: 09-19-2024 End: 09-19-2024 Patient encounter procedure 09/19/2024 2:20 PM EST Office Visit Family Medicine [place] [address] [place], [place] [id number] Emelia Lynn, GLORIA.PHARMACOVIGILANCE SAFETY EXPERT [address] [place] [address] Right foot swelling-injury See triage 09/18/2024 Family Medicine [place] Comment on above: Right foot swelling-injury See triage 09/18/2024 Start: 09-11-2024 Advance Directive Discussion Advance Directive Discussion [facility] Start: 09-03-2024 Diabetes Screening Diabetes Screening [facility] Start: 08-10-2024 DIABETES SCREEN DIABETES SCREEN [facility] Start: 08-10-2024 Diabetes Screening Diabetes Screening [facility] Start: 05-12-2024 ANNUAL PCP TEAM CHRONIC DISEASE VISIT ANNUAL PCP TEAM CHRONIC DISEASE VISIT [facility] Start: 05-12-2024 COVID-19 Vaccine () COVID-19 Vaccine () [facility] Start: 05-12-2024 Covid-19 Vaccine () Covid-19 Vaccine () [facility] Start: 05-12-2024 Influenza vaccination [facility] Start: 04-20-2024 ANNUAL PCP TEAM CHRONIC DISEASE VISIT ANNUAL PCP TEAM CHRONIC DISEASE VISIT [facility] Start: 04-20-2024 BP CONTROLLED (<130/80) BP CONTROLLED (<130/80) [facility] in Start: 04-19-2024 End: 04-19-2024 Patient encounter procedure 04/19/2024 1:00 PM EDT Appointment Radiology [address] [place] [address] Procedure: MRI LUMBAR SPINE WO IVCON Radiology Comment on above: Procedure: MRI LUMBAR SPINE WO IVCON Start: 03-29-2024 ANNUAL PCP TEAM CHRONIC DISEASE VISIT ANNUAL PCP TEAM CHRONIC DISEASE VISIT [facility] Start: 03-29-2024 BP CONTROLLED (<130/80) BP CONTROLLED (<130/80) [facility] inic Start: 03-20-2024 End: 06-19-2024 Comprehensive metabolic 2000 panel - Serum or Plasma [facility] Comment on above: Expected: 03/20/2024, Expires: Start: 03-20-2024 End: 06-19-2024 Thyrotropin [Units/volume] in Serum or Plasma [facility] Comment on above: Expected: 03/20/2024, Expires: Start: 03-20-2024 End: 06-19-2024 Thyroxine (T4) free [Mass/volume] in Serum or Plasma [facility] Comment on above: Expected: 03/20/2024, Expires: Start: 03-20-2024 End: 03-20-2024 Patient encounter procedure 03/20/2024 1:30 PM EDT Office Visit Neurology [address] [place] [address] Maya Katz PA-C [address] [place] [address] Two month follow up Dementia Neurology Comment on above: Two month follow up Dementia Start: 03-07-2024 ANNUAL PCP TEAM CHRONIC DISEASE VISIT ANNUAL PCP TEAM CHRONIC DISEASE VISIT [facility] Start: 03-07-2024 BP CONTROLLED (<130/80) BP CONTROLLED (<130/80) [facility] in Start: 02-19-2024 End: 02-19-2024 Patient encounter procedure 02/19/2024 5:00 PM EDT Office Visit Family Medicine [place] [address] [place] [address] Armando Orozco MD [address] [place] [address] follow up [facility] [place] Comment on above: follow up Start: 02-16-2024 Shingrix Vaccine (3 of 3) Shingrix Vaccine (3 of 3) [facility] Start: 02-14-2024 End: 02-14-2024 ambulatory 02/14/2024 1:00 PM EDT [facility] Family Medicine [place] [address] [place] [address] Emelia Lynn APRN.PHARMACOVIGILANCE SAFETY EXPERT [address] [place] [address] 1 month med check Family Medicine [place] Comment on above: 1 month med check Start: 01-13-2024 ANNUAL PCP TEAM CHRONIC DISEASE VISIT ANNUAL PCP TEAM CHRONIC DISEASE VISIT [facility] Start: 01-13-2024 BP CONTROLLED (<130/80) BP CONTROLLED (<130/80) [facility] in Start: 01-12-2024 End: 01-12-2024 Patient encounter procedure 01/12/2024 3:40 PM EDT Office Visit Neurology [address] [place] [address] Vega Granger Jr., MD [address] [facility] [address] [place] [id number] 3 month f/u - 60 min as requestd by provider Neurology Comment on above: 3 month f/u - 60 min as requestd by prov ider Start: 01-11-2024 End: 01-11-2024 Patient encounter procedure 01/11/2024 8:20 AM EDT Office Visit Family Medicine [place] [address] [place] [address] Emeila Lynn APRN.PHARMACOVIGILANCE SAFETY EXPERT [address] [place] [address] [facility] D/C 01/05 Migraine possible stroke [facility] [place] Comment on above: [facility] D/C 01/05 Migraine possible stroke Start: 01-06-2024 Patient discharge [facility] Start: 01-06-2024 Telemedicine consultation with patient [facility] Start: 01-04-2024 Following clinical pathway protocol [facility] Start: 01-04-2024 Assessment of risk of venous thromboembolism [facility] Start: 01-04-2024 Bedrest [facility] Start: 01-04-2024 Consultation [facility] Start: 01-04-[address] [facility] Start: 01-04-2024 Insertion of catheter into peripheral vein [facility] Start: 01-04-2024 Measuring intake and output [facility] Start: 01-04-2024 Patient referral to dietitian [facility] Start: 01-04-2024 Providing care according to standard [facility] Start: 01-04-2024 Referral to occupational therapist [facility] Start: 01-04-2024 Referral to service [facility] Start: 01-04-[address] [facility] Start: 01-04-2024 Vital signs measurements [facility] Start: 01-04-2024 [facility] Start: 01-04-2024 Verification routine [facility] Start: 01-04-2024 Admission procedure [facility] Start: 01-04-2024 Hospital admission, emergency, from emergency room, medical nature [facility] Start: 01-04-2024 Bleeding precautions [facility] Start: 01-04-2024 Consultation [facility] Start: 01-04-2024 Oxygen therapy [facility] Start: 01-04-2024 [facility] Start: 12-21-2023 End: 03-21-2024 Nuclear Ab [Presence] in Serum by Immunoassay [facility] Work Phone: Comment on above: Expected: 12/21/2023, Expires: Start: 11-15-2023 Patient discharge [facility] Start: 11-14-2023 Thiamine measurement [facility] Start: 11-14-2023 Serum immunofixation [facility] Start: 11-14-2023 [facility] Start: 11-14-2023 [facility] Start: 11-13-2023 Following clinical pathway protocol [facility] Start: 11-13-2023 Assessment of risk of venous thromboembolism [facility] Start: 11-13-2023 Cardiac monitoring [facility] Start: 11-13-2023 Catheterization of vein [facility] Start: 11-13-2023 Elevation of head of bed [facility] Start: 11-13-2023 Exercises [facility] Start: 11-13-2023 Implementation of planned interventions [facility] Start: 11-13-2023 Insertion of catheter into peripheral vein [facility] Start: 11-13-2023 Measuring intake and output [facility] Start: 11-13-[address] [facility] Start: 11-13-2023 Oxygen therapy [facility] Start: 11-13-2023 Providing care according to standard [facility] Start: 11-13-2023 Provision of activity privileges [facility] Start: 11-13-2023 Referral to occupational therapist [facility] Start: 11-13-2023 Referral to service [facility] Start: 11-13-2023 Telemedicine consultation with patient [facility] Start: 11-13-2023 Tobacco use cessation education [facility] Start: 11-13-2023 [facility] Start: 11-13-2023 Vital signs measurements [facility] Start: 11-13-2023 MRI of cervical spine with contrast Spine Cervical W/WO Contrast [facility] Start: 11-13-2023 MRI of brain with contrast Brain W/WO Contrast [facility] Start: 11-13-2023 Hospital admission, emergency, from emergency room, medical nature [facility] Start: 11-13-2023 Admission procedure [facility] Start: 11-13-2023 Oxygen therapy [facility] Start: 11-13-2023 [facility] Start: 11-13-2023 Patient referral to dietitian [facility] Start: 2023 End: 2023 Patient encounter procedure 2023 10:00 AM EST Office Visit [facility] [address] [place] [phone] Maciej Birmingham Jr., DPM [address] [place] [address] [facility] Start: 09-18-2023 [facility] Start: 09-18-2023 [facility] Start: 09-11-2023 Advance Directive Discussion Advance Directive Discussion [facility] Start: 07-13-2023 ANNUAL PCP TEAM CHRONIC DISEASE VISIT ANNUAL PCP TEAM CHRONIC DISEASE VISIT [facility] Start: 07-13-2023 BP CONTROLLED (<130/80) BP CONTROLLED (<130/80) [facility] inic Start: 07-13-2023 COVID-19 VACCINE (3 - Booster for Lilly series) COVID-19 VACCINE (3 - Booster for Lilly series) [facility] Comment on above: Postponed from 05/27/2021 (Declined at t his time) Start: 06-23-2023 End: 08-23-2023 Thyrotropin [Units/volume] in Serum or Plasma TSH BLD Lab Routine Postsurgical hypothyroidism Expected: 06/23/2023, Expires: 08/23/2023 [facility] Work Phone: Comment on above: Expected: 06/23/2023, Expires: 3 Start: 06-23-2023 End: 08-23-2023 Thyroxine (T4) free [Mass/volume] in Serum or Plasma T4 FREE/FREE THYROX Lab Routine Postsurgical hypothyroidism Expected: 06/23/2023, Expires: 08/23/2023 [facility] Work Phone: Comment on above: Expected: 06/23/2023, Expires: 3 Start: 05-12-2023 Covid-19 Vaccine () Covid-19 Vaccine () [facility] Start: 05-12-2023 Influenza vaccination [facility] Start: 05-05-2023 ANNUAL PCP TEAM CHRONIC DISEASE VISIT ANNUAL PCP TEAM CHRONIC DISEASE VISIT [facility] Start: 05-05-2023 BP CONTROLLED (<130/80) BP CONTROLLED (<130/80) [facility] in Start: 04-13-2023 End: 06-13-2023 Thyrotropin [Units/volume] in Serum or Plasma TSH BLD Lab Routine Postsurgical hypothyroidism Expected: 04/13/2023, Expires: 06/13/2023 [facility] Work Phone: Comment on above: Expected: 04/13/2023, Expires: 3 Start: 03-10-2023 Influenza vaccination INFLUENZA (#1) [facility] Comment on above: Postponed from 05/12/2022 (Declined at t his time) Start: 02-22-2023 Patient referral [facility] Work Phone: Start: 02-15-2023 [email or web address], Provider: Inderjit Plaza, Status: Pen, Time: 5:00 PM PTFUADULT4, Provider: Inderjit Plaza, Status: Pen, Time: 5:00 PM [facility] Start: 02-13-2023 PTRECHADUL, Provider: Inderjit Plaza, Status: Pen, Time: 5:30 PM PTRECHADUL, Provider: Inderjit Plaza, Status: Pen, Time: 5:30 PM [facility] Start: 02-13-2023 PTRECHADUL, Provider: Inderjit Plaza, Status: Pen, Time: 4:45 PM PTRECHADUL, Provider: Inderjit Plaza, Status: Pen, Time: 4:45 PM [facility] Work Phone: Start: 02-10-2023 PTFUADULT4, Provider: Inderjit Plaza, Status: Pen, Time: 5:15 PM PTFUADULT4, Provider: Inderjit Plaza, Status: Pen, Time: 5:15 PM [facility] Work Phone: Start: 02-08-2023 PTFUADULT4, Provider: Inderjit Plaza, Status: Pen, Time: 5:00 PM PTFUADULT4, Provider: Inderjit Plaza, Status: Pen, Time: 5:00 PM [facility] Work Phone: Start: 02-07-2023 PTFUADULT4, Provider: Minoo Stewart, Status: Pen, Time: 5:00 PM PTFUADULT4, Provider: Minoo Stewart, Status: Pen, Time: 5:00 PM [facility] Work Phone: Start: 01-31-2023 BOTOX, Provider: Ludmila Warren, Status: Pen, Time: 1:45 PM BOTOX, Provider: Ludmila Warren, Status: Pen, Time: 1:45 PM [facility] Work Phone: Start: 01-23-2023 PTFUADULT4, Provider: Stephie Mancini, Status: Pen, Time: 5:00 PM PTFUADULT4, Provider: Stephie Mancini, Status: Pen, Time: 5:00 PM [facility]: Start: 01-20-2023 PTFUADULT4, Provider: Inderjit Plaza, Status: Pen, Time: 5:15 PM PTFUADULT4, Provider: Inderjit Plaza, Status: Pen, Time: 5:15 PM [facility]: Start: 01-16-2023 PTFUADULT4, Provider: Stephie Mancini, Status: Pen, Time: 5:00 PM PTFUADULT4, Provider: Stephie Mancini, Status: Pen, Time: 5:00 PM [facility] Work Phone: Start: 01-13-2023 PTFUADULT4, Provider: Inderjit Plaza, Status: Pen, Time: 5:00 PM PTFUADULT4, Provider: Inderjit Plaza, Status: Pen, Time: 5:00 PM [facility]: Start: 01-12-2023 End: 03-14-2023 Thyrotropin [Units/volume] in Serum or Plasma [facility] Work Phone: Comment on above: Expected: 01/12/2023, Expires: 3 Start: 01-12-2023 End: 03-14-2023 Thyroxine (T4) free [Mass/volume] in Serum or Plasma [facility] Work Phone: Comment on above: Expected: 01/12/2023, Expires: 3 Start: 01-07-2023 End: 03-09-2023 Thyrotropin [Units/volume] in Serum or Plasma TSH BLD Lab Routine Postsurgical hypothyroidism Expected: 01/07/2023 (Approximate), Expires: 03/09/2023 [facility] Work Phone: Comment on above: Expected: 01/07/2023 (Approximate), Expi res: 03/09/2023 Start: 01-07-2023 End: 03-09-2023 Thyroxine (T4) free [Mass/volume] in Serum or Plasma T4 FREE/FREE THYROX Lab Routine Postsurgical hypothyroidism Expected: 01/07/2023 (Approximate), Expires: 03/09/2023 [facility] Work Phone: Comment on above: Expected: 01/07/2023 (Approximate), Expi res: 03/09/2023 Start: 12-10-2022 ANNUAL PCP TEAM CHRONIC DISEASE VISIT ANNUAL PCP TEAM CHRONIC DISEASE VISIT [facility] Start: 12-10-2022 BP CONTROLLED (<130/80) BP CONTROLLED (<130/80) [facility] Start: 12-02-2022 Hepatitis B surface antibody level LDL CHOLESTEROL [facility] Start: 10-05-2022 VIRJENNIFER, Provider: Perlita Maynard, Status: Pen, Time: 9:45 AM VIRFUVKIMBERLYE, Provider: Perlita Maynard, Status: Pen, Time: 9:45 AM [facility] Work Phone: Start: 09-26-2022 FUV, Provider: Ludmila Warren, Status: Pen, Time: 2:00 PM FUV, Provider: Ludmila Warren, Status: Pen, Time: 2:00 PM XG-Hpqmujstsk[facility]uc[facility] Work Phone: Start: 09-11-2022 ADVANCE DIRECTIVE DISCUSSION ADVANCE DIRECTIVE DISCUSSION [facility] Start: 08-10-2022 MIGUE, Provider: Perlita Maynard, Status: Pen, Time: 11:15 AM VIRFUVHOME, Provider: Perlita Maynard, Status: Pen, Time: 11:15 AM WT-Fltjliqmeggfle-Vab [facility] Work Phone: Start: 07-13-2022 End: 09-12-2022 Thyrotropin [Units/volume] in Serum or Plasma [facility] Work Phone: Comment on above: Expected: 07/13/2022, Expires: 3 Start: 07-13-2022 End: 09-12-2022 Thyroxine (T4) free [Mass/volume] in Serum or Plasma [facility] Work Phone: Comment on above: Expected: 07/13/2022, Expires: 3 Start: 06-05-2022 End: 08-05-2022 Thyrotropin [Units/volume] in Serum or Plasma TSH BLD Lab Routine Postsurgical hypothyroidism Expected: 06/05/2022, Expires: 08/05/2022 [facility] Work Phone: Comment on above: Expected: 06/05/2022, Expires: 2 Start: 06-05-2022 End: 08-05-2022 Thyroxine (T4) free [Mass/volume] in Serum or Plasma T4 FREE/FREE THYROX Lab Routine Postsurgical hypothyroidism Expected: 06/05/2022, Expires: 08/05/2022 [facility] Work Phone: Comment on above: Expected: 06/05/2022, Expires: 2 Start: 05-31-2022 Depression screening using PHQ-9 (Patient Health Questionnaire 9) score Depression Screening (PHQ-2/9) [facility] Start: 05-12-2022 Influenza vaccination [facility] Start: 04-27-2022 Procedure [facility] Work Phone: Start: 04-27-2022 [facility] Work Phone: Start: 03-30-2022 Patient referral [facility] Work Phone: Start: 01-14-2022 Screening for malignant neoplasm of breast Mammogram [facility] Start: 01-06-2022 Patient referral [facility] Work Phone: Start: 08-02-2021 COVID-19 VACCINE (3 - Booster for Lilly series) COVID-19 VACCINE (3 - Booster for Lilly series) [facility] Start: 06-11-2021 End: 06-11-2021 Patient encounter procedure [facility] Start: 05-12-2021 Influenza vaccination Sequential Influenza Vaccine (#1) [facility] Start: 04-28-2021 End: 04-28-2021 Patient encounter procedure 04/28/2021 Office Visit Cardiology Love Ferraro, PHARMACOVIGILANCE SAFETY EXPERT [address] [place] [address] [facility] Start: 05-01-2020 BP CONTROLLED (<130/80) BP CONTROLLED (<130/80) [facility] inic Start: 01-04-2013 Administration of herpes zoster vaccine Zoster Vaccines (2 of 3) [facility] Start: 01-04-2013 SHINGRIX VACCINE (2 of 3) SHINGRIX VACCINE (2 of 3) [facility] Start: 12-11-2012 PNEUMOCOCCAL: 65+ (1 - PCV) PNEUMOCOCCAL: 65+ (1 - PCV) [facility] Start: 2009 Fall risk assessment Falls Risk Assessment [facility] Start: 2009 Pneumococcal Vaccine: Age 65+ (1 of 1 - PPSV23) Pneumococcal Vaccine: Age 65+ (1 of 1 - PPSV23) [facility] Start: 2004 RSV patients and/or patients aged 60+ years (1 - 1-dose 60+ series) RSV patients and/or patients aged 60+ years (1 - 1-dose 60+ series) [facility] Start: 2004 RSV Vaccine (1 - 1-dose 60+ series) RSV Vaccine (1 - 1-dose 60+ series) [facility] Start: 1962 Anxiety Screening Anxiety Screening [facility] Start: 1962 Hepatitis C screening Hepatitis C Screening [facility] Start: 1956 Depression screening using PHQ-9 (Patient Health Questionnaire 9) score Depression Screening (PHQ9) [facility] Start: 1947 History and physical examination, annual for health maintenance Wellness Visit [facility] Start: 1944 Lipid panel Lipid Panel [facility] Start: 1944 Medicare Annual Wellness Visit Medicare Annual Wellness Visit (AWV) [facility] Start: 1944 Screening for osteoporosis [facility] Albumin [Moles/volum e] in Serum or Plasma [facility] Albumin [Moles/volum e] in Serum or Plasma [facility] Albumin/Globulin ratio [facility] Albumin/Globulin ratio [facility] IgE Ab [Units/volume] in Serum [facility] Work Phone: Ambulatory ECG [facility] Antibody to lupus La protein measurement [facility] Antibody to SS-A measurement [facility] Apple IgE Ab [Units/volume] in Serum [facility] Work Phone: Bacteria identified in Urine by Culture URINE CULTURE Microbiology Routine Dark urine 03/29/2023 11:30 AM EDT [facility] Work Phone: Bacteria identified in Urine by Culture URINE CULTURE Microbiology Routine Urinary incontinence, unspecified type 02/14/2024 1:37 PM EDT [facility] Work Phone: Bacteria identified in Urine by Culture URINE CULTURE Microbiology Routine Acute cystitis with hematuria 03/20/2024 11:45 AM EDT [facility] Stewart's yeast IgE Ab [Units/volume] in Serum [facility] Work Phone: Banana IgE Ab [Units/volume] in Serum [facility] Work Phone: Barley RAST [facility] Work Phone: Beef IgE Ab [Units/volume] in Serum [facility] Work Phone: Seltzer Nut IgE Ab [Units/volume] in Serum [facility] Work Phone: CARDIAC REHAB II OUT PT ([place], [place]) CARDIAC REHAB II OUTPT ([place], [place]) BIC Routine 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 Ordered: 12/10/2021 [facility] Work Phone: Comment on above: Ordered: 12/10/2021 Carrot IgE Ab [Units/volume] in Serum [facility] Work Phone: Cashew nut IgE Ab [Units/volume] in Serum [facility] Work Phone: CBC W Auto Different ial panel - Blood [facility] Work Phone: Centromere protein B Ab [Units/volume] in Serum [facility] Ceruloplasmin [Mass/volume] in Serum or Plasma [facility] Chicken IgE Ab [Units/volume] in Serum [facility] Work Phone: Chromatin Ab [Units/volume] in Serum or Plasma [facility] Clam IgE Ab [Units/volume] in Serum [facility] Work Phone: Codfish IgE Ab [Units/volume] in Serum [facility] Work Phone: Copper [Moles/volume ] in Serum or Plasma [facility] Lansing IgE Ab [Units/volume] in Serum [facility] Work Phone: Cow milk IgE Ab [Units/volume] in Serum [facility] Work Phone: Crab IgE Ab [Units/volume] in Serum [facility] Work Phone: Cyclic citrullinated peptide IgG Ab [Units/volume] in Serum or Plasma [facility] DNA double strand Ab [Units/volume] in Serum [facility] Egg white IgE Ab [Units/volume] in Serum [facility] Work Phone: Egg yolk IgE Ab [Units/volume] in Serum [facility] Work Phone: Electrical periphera l nerve stimulation [facility] Electrophoresis: [id number] [facility] Electrophoresis: [id number] [facility] Electrophoresis: sukumar ma globulin [facility] Electrophoresis: sukumar ma globulin [facility] End: 11-05-2025 EMG(NEURO/NI) EMG(NEURO/NI) EMG Routine Neuropathy 1 Occurrences starting 11/05/2024 until 11/05/2025 [facility] Work Phone: Comment on above: 1 Occurrences starting 11/05/2024 until 11/05/2025 Ferritin [Mass/volum e] in Serum or Plasma [facility] Work Phone: Garlic IgE Ab [Units/volume] in Serum [facility] Work Phone: Globulin measurement [facility] Globulin measurement [facility] Gluten IgE Ab [Units/volume] in Serum [facility] Work Phone: [place] nut RAST [facility] Work Phone: IgA [Mass/volume] in Serum or Plasma [facility] IgA [Mass/volume] in Serum or Plasma [facility] IgA [Mass/volume] in Serum or Plasma [facility] IgE [Units/volume] i n Serum or Plasma [facility] IgE [Units/volume] i n Serum or Plasma [facility] IgG [Mass/volume] in Serum or Plasma [facility] IgG [Mass/volume] in Serum or Plasma [facility] IgM [Mass/volume] in Serum or Plasma [facility] IgM [Mass/volume] in Serum or Plasma [facility] Iron and Iron bindin g capacity panel - Serum or Plasma [facility] Work Phone: Anisa-1 extractable nuc lear Ab [Units/volume] in Serum [facility] Vesper/lambda light c francisco ratio [facility] Vesper/lambda light c francisco ratio [facility] Lambda light chains. free [Mass/volume] in Serum or Plasma [facility] Lambda light chains. free [Mass/volume] in Serum or Plasma [facility] Lobster IgE Ab [Units/volume] in Serum [facility] Work Phone: End: 05-16-2024 KYA SCREENING KYA SCREENING Radiology Routine Encounter for screening mammogram for malignant neoplasm of breast 1 Occurrences starting 04/17/2023 until 05/16/2024 [facility] Work Phone: Comment on above: 1 Occurrences starting 04/17/2023 until 05/16/2024 Nuclear Ab [Presence ] in Serum [facility] Onion IgE Ab [Units/volume] in Serum [facility] Work Phone: Toole IgE Ab [Units/volume] in Serum [facility] Work Phone: Patient Education [facility] Work Phone: Patient referral [facility] Work Phone: Pea IgE Ab [Units/vo lume] in Serum [facility] Work Phone: [place] IgE Ab [Units/volume] in Serum [facility] Work Phone: Peanut IgE Ab [Units/volume] in Serum [facility] Work Phone: Pecan or [place] Nut IgE Ab [Units/volume] in Serum [facility] Work Phone: Pork IgE Ab [Units/volume] in Serum [facility] Work Phone: Potato IgE Ab [Units/volume] in Serum [facility] Work Phone: Procedure [facility] Work Phone: Protein electrophore sis panel - Serum or Plasma [facility] Protein electrophore sis panel - Serum or Plasma [facility] End: 05-19-2024 Radex facial bones complete minimum 3 views XR FACIAL BONES 3V AP/LAT/DRISCOLL Radiology Routine Fall, initial encounter Contusion of cheek, initial encounter 1 Occurrences starting 04/20/2023 until 05/19/2024 [facility] Work Phone: Comment on above: 1 Occurrences starting 04/20/2023 until 05/19/2024 Radex facial bones complete minimum 3 views XR FACIAL BONES 3V AP/LAT/DRISCOLL Radiology Routine Fall, initial encounter Contusion of cheek, initial encounter 04/20/2023 3:41 PM EDT [facility] Work Phone: Rice IgE Ab [Units/volume] in Serum [facility] Work Phone: .NET ARCHITECT antibody measurement [facility] Boon IgE Ab [Units/volume] in Serum [facility] Work Phone: Scallop RAST [facility] Work Phone: SCL-70 extractable nuclear Ab [Units/volume] in Serum by Immunoassay [facility] Serum oat IgE antibo dy ratio [facility] Work Phone: Sesame seed RAST [facility] Work Phone: Shrimp IgE Ab [Units/volume] in Serum [facility] Work Phone: Irvin extractable nu clear Ab [Presence] in Serum [facility] Soybean IgE Ab [Units/volume] in Serum [facility] Work Phone: [place] IgE Ab [Units/volume] in Serum [facility] Work Phone: Thiamine measurement [facility] Thyroglobulin antibo dy measurement [facility] Thyroperoxidase Ab [Units/volume] in Serum or Plasma [facility] Tissue transglutamin ase IgA Ab [Units/volume] in Serum [facility] Tomato IgE Ab [Units/volume] in Serum [facility] Work Phone: Tuna IgE Ab [Units/volume] in Serum [facility] Work Phone: [place] meat IgE Ab [Units/volume] in Serum [facility] Work Phone: UA DIP, URINE (POC) UA DIP, URIN E (POC) Lab Routine Acute cystitis with hematuria Ordered: 03/20/2024 [facility] Work Phone: Comment on above: Ordered: 03/20/2024 Urinalysis complete panel - Urine URINALYSIS, WITH MICROSCOPIC Lab Routine Dark urine 03/29/2023 11:30 AM EDT [facility] Work Phone: Urine kappa light ch ain measurement [facility] Urine kappa light ch ain measurement [facility] US Carotid arteries [facility] US Heart [facility] End: 11-10-2024 US KIDNEY/BLADDER US KIDNEY/BLADDER Radiology STAT Microscopic hematuria Calcium oxalate crystals in urine 1 Occurrences starting 10/12/2023 until 11/10/2024 [facility] Work Phone: Comment on above: 1 Occurrences starting 10/12/2023 until 11/10/2024 Vitamin B12 measurement [facility] Work Phone: Oden RAST [facility] Work Phone: Wheat IgE Ab [Units/volume] in Serum [facility] Work Phone: End: 10-19-2025 XR Foot - right AP and Lateral and oblique XR FOOT GENERAL 3V AP/LAT/OBL RIGHT Radiology Routine Foot pain, right Weakness of foot, right 1 Occurrences starting 09/19/2024 until 10/19/2025 [facility] Work Phone: Comment on above: 1 Occurrences starting 09/19/2024 until 10/19/2025 XR Foot - right AP a nd Lateral and oblique XR FOOT GENERAL 3V AP/LAT/OBL RIGHT Radiology Routine Foot pain, right Weakness of foot, right 09/19/2024 3:00 PM EST [facility] End: 04-20-2023 XR KNEE INJURY 4V AP/LAT/OBLS RIGHT [facility] Work Phone: Comment on above: ONCE for 1 Occurrences starting 04/20/20 23 until 04/20/2023 [facility] Immunizations Immunization Date Immunization Notes Care Provider [facility] 03-20-2024 zoster vaccine recombinant Emelia Lynn RELIABILITY TECHNICIAN.PHARMACOVIGILANCE SAFETY EXPERT Work Phone: [facility] 04-21-2021 pneumococcal polysaccharide vaccine, 23 valent Generic [facility] Work Phone: [facility] 04-01-2021 Covid (Tera & Tera) Dr. Armando Orozco Work Phone: [facility] 12-17-2020 COVID-19 vaccine (LILLY) Armando Orozco MD Work Phone: [facility] Work Phone: 07-22-2020 influenza virus vaccine, unspecified formulation Armando Orozco MD Work Phone: [facility] 12-05-2019 tetanus toxoid, redu pravin diphtheria toxoid, and acellular pertussis vaccine, adsorbed Armando Orozco MD Work Phone: [facility] 09-25-2019 influenza, high dose seasonal, preservative-free Armando Orozco MD Work Phone: [facility] 08-01-2016 influenza, high dose seasonal, preservative-free Armando Orozco MD Work Phone: [facility] 08-01-2016 pneumococcal conjuga te vaccine, 13 valent Armando Orozco MD Work Phone: [facility] 07-22-2015 influenza, injectabl e, quadrivalent, preservative free Dr. Armando Orozco Work Phone: [facility] 07-22-2015 influenza, seasonal, injectable Dr. Armando Orozco Work Phone: [facility] 07-08-2014 influenza, seasonal, injectable Armando Orozco MD Work Phone: [facility] 06-27-2013 influenza virus vaccine, unspecified formulation Armando Orozco MD Work Phone: [facility] 11-09-2012 zoster vaccine, live Armando odonnell MD Work Phone: [facility] 06-15-2012 influenza virus vaccine, unspecified formulation Armando Orozco MD Work Phone: [facility] 12-12-2011 pneumococcal polysaccharide vaccine, 23 valent Armando Orozco MD Work Phone: [facility] 07-11-2011 tetanus toxoid, redu pravin diphtheria toxoid, and acellular pertussis vaccine, adsorbed Armando Orozco MD Work Phone: [facility] 10-19-2001 diphtheria and tetan us toxoids, adsorbed for pediatric use Armando Orozco MD Work Phone: [facility] Work Phone: Payers Date Payer Category Payer Self-pay [id number] 2024 Medicare (Managed Care) MMO [employer] HMO [id number] 2024 Medicare [id number] 2019 Unknown [id number]. [id number] 2013 Unknown [id number] 2009 Medicare [id number]. [id number] 2009 Medicare [id number] 2009 Medicare [id number]. [id number] 2006 Unknown 1944 Unknown [id number] 2.16.840.1.292921.3.579. 2.903 1944 Unknown [id number] 2.16.840.1.433781.3.579. 2.903 1944 Unknown [id number] 2.16.840.1.173610.3.579. 2.594 1944 Unknown [id number] 2.16.840.1.131631.3.579. 2.594 1944 Unknown [id number] 2.16.840.1.837270.3.579. 2.594 1944 Unknown [id number] 2.16.840.1.472805.3.579. 2.1069 1944 Unknown [id number] 2.16.840.1.344741.3.579. 2.1069 1944 Unknown [id number] 2.16.840.1.943887.3.579. 2.106 1944 Unknown [id number] 2.16.840.1.815209.3.579. 2.1068 1944 Unknown [id number] 2.16.840.1.265012.3.579. 2.1068 1944 Unknown [id number] 2.16.840.1.397390.3.579. 2.1068 1944 Unknown [id number] 2.16.840.1.292297.3.579. 2.1068 1944 Unknown [id number] 2.16.840.1.375196.3.579. 2.1068 1944 Unknown [id number] 2.16.840.1.610147.3.579. 2.1068 1944 Unknown [id number] 2.16.840.1.984164.3.579. 2.1068 1944 Unknown [id number] 2.16.840.1.619129.3.579. 2.356 1944 Unknown [id number] 2.16.840.1.571992.3.579. 2.356 1944 Unknown [id number] 2.16.840.1.186731.3.579. 2.356 1944 Unknown [id number] 2.16.840.1.361931.3.579. 2.356 1944 Unknown [id number] 2.16.840.1.936198.3.579. 2. 1944 Unknown [id number] 2.16.840.1.634557.3.579. 2. 1944 Unknown [id number] 2.16.840.1.565977.3.579. 2.90 1944 Unknown [id number] 2.16.840.1.633634.3.579. 2. 1944 Unknown [id number] 2.16.840.1.229357.3.579. 2.902 1944 Unknown [id number] 2.16.840.1.858292.3.579. 2.1243 Unknown [id number] 2.16.840.1.640444.3.579. 2.462 Unknown [id number] 2.16.840.1.549051.3.579. 2.462 Unknown [id number] 2.16.840.1.527612.3.579. 2.462 Unknown [id number] 2.16.840.1.623903.3.579. 2.462 Unknown [id number] 2.16.840.1.908538.3.579. 2.462 Unknown [id number] 2.16.840.1.506627.3.579. 2.462 Unknown [id number] 2.16.840.1.604328.3.579. 2.462 Unknown [id number] 2.16.840.1.147551.3.579. 2.462 Unknown [id number] 2.16.840.1.427173.3.579. 2.462 Unknown [id number] 2.16.840.1.313797.3.579. 2.462 Unknown [id number] 2.16.840.1.509617.3.579. 2.462 Unknown [id number] 2.16840.1.103032.3.579. 2.462 Unknown [id number] 2.16840.1.205536.3.579. 2.462 Social History Date Type Detail Facility Start: 04-19-2021 End: 01-30-2025 Tobacco smoking status NDIS Never smoker [facility] Start: 04-19-2021 End: 05-22-2024 Tobacco use and exposure Never used [facility] Start: 04-19-2021 End: 07-27-2023 Alcohol intake Ex-drinker (finding) [facility] Start: 1945 Sex Assigned At Not on file [facility] Start: 03-14-2021 End: 05-22-2024 Exposure to SARS-CoV-2 (event) Not sure [facility] Start: 12-10-2021 End: 02-11-2025 Alcohol intake Current drinker of alcohol (finding) [facility] Start: 04-13-2021 History SDOH Social Connections Phone 4 [facility] Start: 04-13-2021 History SDOH Social Connections Get Together 98 [facility] Start: 04-13-2021 History SDOH Social Connections Denominational 2 [facility] Start: 04-13-2021 End: 07-07-2021 History SDOH Social Connections Living 3 [facility] Start: 04-13-2021 History SDOH Physica l Activity DPW 6 [facility] Start: 04-13-2021 History SDOH Physica l Activity MPS 10 [facility] Start: 04-13-2021 History SDOH Financial 5 [facility] Start: 04-13-2021 History SDOH Food Worry 1 [facility] Start: 04-12-2021 Education 15 [facility] Start: 11-30-2021 End: 04-12-2023 Tobacco smoking status NHIS Unknown if ever smoked [facility] Start: 12-24-2019 Non-smoker [facility] Start: 1945 Sex Assigned At Female [facility] Start: 04-12-2021 End: 09-19-2024 Non-smoker Non-smoker [facility] Start: 04-12-2021 End: 09-19-2024 Social connection and isolation panel [facility] How often do you get together with friends or relatives? Patient refused [facility] Do you belong to any clubs or organizations such as sikhism groups, unions, fraternal or athletic groups, or school groups? No [facility] Are you now , , , , never or living with a partner? [facility] Do you feel stress - tense, restless, nervous, or anxious, or unable to sleep at night because your mind is troubled all the time - these days [OSQ] Only a little [facility] (I/We) worried wheth er (my/our) food would run out before (I/we) got money to buy more. Never true [facility] Start: 08-20-2015 None [facility] Start: 08-20-2015 Spouse/ Signif icant Other [facility] Start: 04-17-2021 Gender identity Identifies as female gender (finding) [facility] Start: 04-17-2021 Sexual orientation Heterosexual (geraldo fournier) [facility] Do you feel stress - tense, restless, nervous, or anxious, or unable to sleep at night because your mind is troubled all the time - these days [OSQ] To some extent [facility] (I/We) worried jyacee er (my/our) food would run out before (I/we) got money to buy more. DK or Refused [facility] Start: 05-22-2024 Alcoholic beverage intake Lifetime non-drinker (finding) [facility] Work Phone: Start: 12-24-2024 Sex Female (finding) [facility] How often to you hav e a drink containing alcohol? Monthly or less [facility] How often do you hav e 6 or more drinks on 1 occasion? Never [facility] Do you feel stress - tense, restless, nervous, or anxious, or unable to sleep at night because your mind is troubled all the time - these days [OSQ] Not at all [facility] NEGATED: Highlighted rowStart: ABNER History of tobacco use Passive smoker [facility] Work Phone: Medical Equipment Procedure Code Equipment Code Equipment Origin al Text Equipment Identifier Dates Stent 2.75 X 12 [employer] Xd Mr - [id number] , [id number] FDA Start: 04-19-2021 Stent 2.75 X 08 Synergy Xd Mr - [id number] ()[id number] , [id number] FDA Start: 04-19-2021 Goals Date Patient Goal Desired Activity /State Functional Status Date Assessment Result Facility 12-23-2024 Total score [AUDIT-C] 1 12/24/19 25 8:01 PM EDT User, Rolo [facility] 12-23-2024 Within the last year , have you been humiliated or emotionally abused in other ways by your partner or ex-partner? No 12/23/2024 8:01 PM EDT User, Milanahart No [facility] 12-23-2024 Within the last year , have you been afraid of your partner or ex-partner? No 12/23/2024 8:01 PM EDT User, Milanahart No [facility] 12-23-2024 Within the last year , have you been raped or forced to have any kind of sexual activity by your partner or ex-partner? No 12/23/2024 8:01 PM EDT User, Milanahart No [facility] 12-23-2024 Within the last year , have you been kicked, hit, slapped, or otherwise physically hurt by your partner or ex-partner? No 12/23/2024 8:01 PM EDT User, Mychart No [facility] 12-23-2024 How often to you hav e a drink containing alcohol? Monthly or less 12/23/2024 8:01 PM EDT User, Mychart Monthly or less [facility] 12-23-2024 Functional status Patient does n ot drink 12/23/2024 8:01 PM EDT User, Mychart Patient does not drink [facility] 12-23-2024 How often do you hav e 6 or more drinks on 1 occasion? Never 12/23/2024 8:01 PM EDT User, Mychart Never [facility] 01-06-2024 [facility] Work Phone: 11-15-2023 Functional status Bathroom [facility] Work Phone: 03-05-2015 Are you deaf, or do you have serious difficulty hearing No 03/05/2015 1:38 PM Carito Sam LPN No [facility] 03-05-2015 Are you blind, or do you have serious difficulty seeing, even when wearing glasses No 03/05/2015 1:38 PM ALVAROT Carito Mederos LPN No [facility] 03-05-2015 Do you have serious difficulty walking or climbing stairs No 03/05/2015 1:38 PM EDT Carito Mederos LPN No [facility] 03-05-2015 Do you have difficul ty dressing or bathing No 03/05/2015 1:38 PM EDT Carito Mederos LPN No [facility] 03-05-2015 Because of a physica l, mental, or emotional condition, do you have difficulty doing errands alone such as visiting a physician's office or shopping No 03/05/2015 1:38 PM EDT Carito Mederos LPN No [facility] Mental Status Date Assessment Result Facility 01-06-2024 Cognitive function Voice/Name [facility] Work Phone: 01-04-2024 Cognitive function Voice/Name [facility] Work Phone: 11-15-2023 Cognitive function Voice/Name [facility] Work Phone: 09-18-2023 Cognitive function Voice/Name [facility] Work Phone: 08-29-2021 Cognitive function Awake;Alert;A ppropriate; Follows Commands [facility] Work Phone: 03-05-2015 Because of a physica l, mental, or emotional condition, do you have serious difficulty concentrating, remembering, or making decisions Yes 03/05/2015 1:38 PM EDT Carito Mederos LPN Yes [facility] Clinical Notes 07-07-2015 to 02-11-2025 Telephone Encounter - Kim Sena LPN - 02/11/2025 9:34 AM EDTTelephone Encounter - Kim Sena LPN - 02/11/2025 9:34 AM EDT Note Date & Type Note Facility 02-11-2025 Telephone encount er Note Prescription Refill Information The patient has been identified by name and date of : Yes Caregiver verified no other encounters exist for this prescription request: Yes Caregiver confirmed with patient/requestor that no other refills are due, in the near future, with this provider at this time: Yes The last office visit in the department: 11/05/24 Does the patient have a future office visit with this provider/department: Yes 05/14/25 Requested Prescriptions Pending Prescriptions Disp Refills donepezil (ARICEPT) 10 mg tablet [Pharmacy Med Name: Donepezil HCl 10 MG Oral Tablet] 90 tablet 0 Sig: TAKE 1 TABLET BY MOUTH ONCE DAILY AT BEDTIME Kim Sena LPN February 11, 2025 9:40 AM [facility] 02-11-2025 Miscellaneous Notes Formattin g of this note is different from the original. Prescription Refill Information The patient has been identified by name and date of : Yes Caregiver verified no other encounters exist for this prescription request: Yes Caregiver confirmed with patient/requestor that no other refills are due, in the near future, with this provider at this time: Yes The last office visit in the department: 11/05/24 Does the patient have a future office visit with this provider/department: Yes 05/14/25 Requested Prescriptions Pending Prescriptions Disp Refills donepezil (ARICEPT) 10 mg tablet [Pharmacy Med Name: Donepezil HCl 10 MG Oral Tablet] 90 tablet 0 Sig: TAKE 1 TABLET BY MOUTH ONCE DAILY AT BEDTIME Kim Sena LPN February 11, 2025 9:40 AM documented in this encounter [facility] 02-07-2025 Evaluation note Diagnosis Onset Date Resolution Leg cramps acute February 07, 2025 10:37am [facility] Work Phone: 1(208) 249-220905-30-2025 Evaluation note* Diagnosis Onset Date Resolution Status Admit Date Leg cramps acute February 07, 2025 10:37am Degenerative disc disease (D DD) of lumbar region with discogenic back pain acute February 17, 2025 2 :54pm Degenerative scoliosis acute 2024 2:54pm Low bone density acute February 2:54pm [facility] Work Phone: 1(523) 201-636005-30-2025 Evaluation note* Diagnosis Onset Date Resolution Status Admit Date Leg cramps acute February 07, 2025 10:37am Degenerative disc disease (DDD) of lumbar region with discogenic back pain acute February 17, 2 025 2:54pm Degenerative scoliosis acute [facility] 2024 2:54pm Low bone density acute February 2:54pm Aortic stenosis acute March 11, 2025 3:03pm CAD (coronary artery disease) chroni c March 11, 2025 3:03pm Carotid artery disease chronic ly 2024 3:03pm Dyslipidemia chronic March 11 3:03pm Essential hypertension chronic ly 2024 3:03pm CVA (cerebral vascular accident) ruled-out March 11, 2025 3 :03pm Nocturia noneactive April 11 1:32pm Urge incontinence noneactive April 11, 2025 1:32pm [place] [email or web address] [facility] Work Phone: 1(581) 189-322405-30-2025 Evaluation note* Diagnosis Onset Date Resolution Status Admit Date Leg cramps acute February 07, 2025 10:37am Degenerative disc disease (DDD) of lumbar region with discogenic back pain acute February 17, 2 025 2:54pm Degenerative scoliosis acute [facility] 2024 2:54pm Low bone density acute February 2:54pm Aortic stenosis acute March 11, 2025 3:03pm CAD (coronary artery disease) chroni c March 11, 2025 3:03pm Carotid artery disease chronic 2024 3:03pm Dyslipidemia chronic March 11 3:03pm Essential hypertension chronic [facility] 2024 3:03pm CVA (cerebral vascular accident) ruled-out March 11, 2025 3 :03pm Nocturia noneactive April 11 1:32pm Urge incontinence noneactive April 11, 2025 1:32pm Urge incontinence acute April 15, 2025 2:53pm [place] [email or web address] [facility] Work Phone: 1(768) 675-228505-30-2025 Evaluation note* Diagnosis Onset Date Resolution Status Admit Date Leg cramps acute February 07, 2025 10:37am Degenerative disc disease (DDD) of lumbar region with discogenic back pain acute February 17, 2 025 2:54pm Degenerative scoliosis acute [facility] 2024 2:54pm Low bone density acute February 2:54pm Aortic stenosis acute March 11, 2025 3:03pm CAD (coronary artery disease) chroni c March 11, 2025 3:03pm Carotid artery disease chronic [facility] 20[facility] 3:03pm Dyslipidemia chronic March 11 3:03pm Essential hypertension chronic [facility] 2024 3:03pm CVA (cerebral vascular accident) ruled-out March 11, 2025 3 :03pm Nocturia noneactive April 11 1:32pm Urge incontinence noneactive April 11, 2025 1:32pm Urge incontinence acute April 15, 2025 2:53pm Nocturia acute April 22, 025 2:11pm Urge incontinence acute April 22, 2025 2:11pm [facility] Work Phone: 1(113) 891-643605-22-2025 NoteHNO ID: [id number] Author: JAGUAR BALLARD APRN.PHARMACOVIGILANCE SAFETY EXPERT Service: ? Author Type: Nurse Practitioner Type: Progress Notes Filed: 01/30/2025 18:45 Note Text: Patient triaged at [facility]. Here today with head injury few days ago, pain worsening since fall. Patient in no apparent distress at time of triage. I will refer to ER. Unclear what ER will go to at this time. Estuardo egan.[facility]04-15-2025 Instructions* Patient Instructions* Kushal Weldon APRN.PHARMACOVIGILANCE SAFETY EXPERT - 12/24/2024 1:26 PM EDT We discussed your fibromyalgia and pain management: - You are experiencing widespread pain, including in your knees, hips, shoulders, and other areas, which you believe is related to your fibromyalgia. - You have been taking Tylenol every six hours for pain relief but are still experiencing significant discomfort. - I recommend starting a prednisone taper to help reduce inflammation and calm your symptoms. This prescription has been sent to your pharmacy. Please take it as directed. - If your pain persists or worsens despite this treatment, please let us know. We discussed your knee arthritis: - You have a history of arthritis in both knees, with prior treatment including an injection into your right knee by Dr. Kilpatrick at [facility] in July 2023. - You may follow up with Dr. Kilpatrick every three months for additional knee injections if needed. Please contact [facility] directly to schedule this if you wish to pursue further treatment. We discussed your elevated blood pressure: - Your blood pressure today was elevated at 170/78. This may be related to your pain or other factors. - Please monitor your blood pressure at home and keep a record of your readings. - If your blood pressure remains elevated, we may need to adjust your blood pressure medication. Please schedule a follow-up appointment with us to reassess your blood pressure. Follow-Up Instructions: - Follow up with Dr. Kilpatrick at [facility] for knee arthritis management if desired. - Schedule a follow-up appointment with us to recheck your blood pressure and evaluate your response to the prednisone taper. - Continue monitoring your blood pressure at home and bring your readings to your next visit. If you have any questions or concerns, please contact our office. documented in [facility] History of Present illness Narrative* Kushal Weldon APRN.CNP - 12/24/2024 1:00 PM EDT Chief Complaint Patient presents with: Pain: Bilateral knees and bilateral hips HPI Bharti Akbar is a 79 year old female who presents here today for above reason. History of calcium pyrophosphate deposition disease as evidence by xr of knee 04/20/2023, findings were re-demonstrated on 07/26/2023 xray of bilateral knees with orthopedics. Had normal duplex venousultrasound and lower extremity arterial study with exercise completed at [facility] on 12/18/2024. She has been evaluated by orthopedics at [facility], Dr. Juan Kilpatrick (07/26/2023). Received cortisone injections, was instructed that she may return every 3 months. Does not appear that she ever followed up with ortho after initial appointment. Xray right hip 06/21/2019 showing moderate narrowing of bothhip joints. Bharti is a 79-year-old female, with a history of fibromyalgia, Alzheimer's disease, and HTN, presenting with diffuse pain. Bharti reports diffuse pain, including in the knees, hips, shoulders, and legs, which she attributes to fibromyalgia. The pain has been severe enough that she has been taking Tylenol every 6 hours for relief. She notes that the pain causes her to clench her teeth and believes that the weather exacerbates her symptoms. She denies taking any anti-inflammatory medications. She has a history of knee disease and was evaluated by an orthopedist approximately 1.5 years ago. An X-ray performed 4-5 years ago revealed moderate arthritis in the hip joints. She received an injection in her right knee in July [address] Kilpatrick at [facility] and was advised to follow up every 3 months for additional injections. She also received an injection in her shoulder about a yearago. Bharti is currently taking medication to slow the progression of Alzheimer's disease. She has a history of taking prednisone tapers in the past but does not recall the details. She has been monitoring her blood pressure at home, with readings typically around 140/80 to 150/80mmHg. She denies readings in the 180s. She is unsure if her current healthcare provider manages herblood pressure medication. Past medical history, appointments, medications, allergies reviewed. EXAM: BP 170/78 Pulse 62 Resp 18 Wt 54.4 kg (120 lb) SpO2 98% BMI 21.60 kg/m General Appearance: Well appearing, alert, in no acute distress, well-hydrated, well nourished.. Lungs: Lungs clear to auscultation. No wheezing, rhonchi, rales.. Heart: RRR without murmur, gallop, or rubs. No ectopy. Musculoskeletal: Bilateral knees: No swelling, mild tenderness along the medial joint line. Bilateral hips, mild tenderness around lateral aspect. Bilateral shoulders: ROM intact, AC joint tenderness. . 1. 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 Previous X-rays showed moderate arthritis in hip joints. Recent right knee injection by Dr. Kilpatrick at [facility] in July 2023. - Follow-up with orthopedic surgery for potential repeat knee injections every 3 months. - Provided information on accessing [facility] [employer] for records. 2. Fibromyalgia (M79.7) Widespread pain, including knees, hips, and shoulders. Currently managed with Tylenol every 6 hours. No current use of anti-inflammatories. - Initiate prednisone taper to reduce inflammation and manage pain. 3. Essential hypertension (I10) Blood pressure elevated at 170/78, possibly secondary to pain. Home readings reportedly around 140-150 mmHg systolic. - Address pain management to potentially lower blood pressure. - Schedule follow-up for blood pressure check to assess need for medication adjustment. RTO in 1 months, sooner if needed. This note was partly generated using [employer] voice recognition dictation and may contain some misspelled or inaccurate words missed on review. Recording using [employer] software for draft documentation of the visit was discussed with the patient/authorized international sales representative; all questions welcomed and answered. Patient/authorized international sales representative agreed to proceed documented in this encounterSheltering [facility]04-15-2025 NoteHNO ID: [id number] Author: KUSHAL WELDON APRN.CNP Service: ? Author Type: Nurse Practitioner Type: Progress Notes Filed: 12/24/2024 13:28 Note Text: Chief Complaint Patient presents with: Pain: Bilateral knees and bilateral hips HPI Bharti Akbar is a 79 year old female who presents here today for above reason. History of calcium pyrophosphate deposition disease as evidence by xr of knee 04/20/2023, findings were re-demonstrated on 07/26/2023 xray of bilateral knees with orthopedics. Had normal duplex venous ultrasound and lower extremity arterial study with exercise completed at [facility] on 12/18/2024. She has been evaluated by orthopedics at [facility], Dr. Juan Kilpatrick (07/26/2023). Received cortisone injections, was instructed that she may return every 3 months. Does not appear that she ever followed up with ortho after initial appointment. Xray right hip 06/21/2019 showing moderate narrowing of both hip joints. Bharti is a 79-year-old female, with a history of fibromyalgia, Alzheimer's disease, and HTN, presenting with diffuse pain. Bharti reports diffuse pain, including in the knees, hips, shoulders, and legs, which she attributes to fibromyalgia. The pain has been severe enough that she has been taking Tylenol every 6 hours for relief. She notes that the pain causes her to clench her teeth and believes that the weather exacerbates her symptoms. She denies taking any anti-inflammatory medications. She has a history of knee disease and was evaluated by an orthopedist approximately 1.5 years ago. An X-ray performed 4-5 years ago revealed moderate arthritis in the hip joints. She received an injection in her right knee in July [address] Kilpatrick at [facility] and was advised to follow up every 3 months for additional injections. She also received an injection in her shoulder about a year ago. Bharti is currently taking medication to slow the progression of Alzheimer's disease. She has a history of taking prednisone tapers in the past but does not recall the details. She has been monitoring her blood pressure at home, with readings typically around 140/80 to 150/80 mmHg. She denies readings in the 180s. She is unsure if her current healthcare provider manages her blood pressure medication. Past medical history, appointments, medications, allergies reviewed. EXAM: BP 170/78 Pulse 62 Resp 18 Wt 54.4 kg (120 lb) SpO2 98% BMI 21.60 kg/m? General Appearance: Well appearing, alert, in no acute distress, well-hydrated, well nourished.. Lungs: Lungs clear to auscultation. No wheezing, rhonchi, rales.. Heart: RRR without murmur, gallop, or rubs. No ectopy. Musculoskeletal: Bilateral knees: No swelling, mild tenderness along the medial joint line. Bilateral hips, mild tenderness around lateral aspect. Bilateral shoulders: ROM intact, AC joint tenderness. . 1. 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 Previous X-rays showed moderate arthritis in hip joints. Recent right knee injection by Dr. Kilpatrick at [facility] in July 2023. - Follow-up with orthopedic surgery for potential repeat knee injections every 3 months. - Provided information on accessing [facility] [employer] for records. 2. Fibromyalgia (M79.7) Widespread pain, including knees, hips, and shoulders. Currently managed with Tylenol every 6 hours. No current use of anti-inflammatories. - Initiate prednisone taper to reduce inflammation and manage pain. 3. Essential hypertension (I10) Blood pressure elevated at 170/78, possibly secondary to pain. Home readings reportedly around 140-150 mmHg systolic. - Address pain management to potentially lower blood pressure. - Schedule follow-up for blood pressure check to assess need for medication adjustment. RTO in 1 months, sooner if needed. This note was partly generated using [employer] voice recognition dictation and may contain some misspelled or inaccurate words missed on review. Recording using [employer] software for draft documentation of the visit was discussed with the patient/authorized international sales representative; all questions welcomed and answered. Patient/authorized international sales representative agreed to proceedUniversity Hospitals [facility] Center04-01-2025 History of Present illness Narrative* Armando Orozco MD - 12/10/2024 1:20 PM EDT Chief Complaint Patient presents with: F/U 6 Month HPI Bharti Akbar is a 79 year old female who presents here today for 6 month follow up. Pt here today for a 6 month follow up. Bharti is adjusting to usp, noting a significant decrease in physical activity from 10,000-13,000 steps per day to less than 2,000. She misses the social interaction and sense of purpose from her previous job at [employer] and is considering volunteer work at [facility]. She also mentions her 's reluctance to travel, which affects their ability to visit family. She has concerns about long drives but has recently purchased a car with advanced safety features to facilitate travel. GI/Uro - Denies any stomach or bowel issues at present time. Hx of diverticulitis. Follows with for urinary issues such as frequency/incontinence. HTN: Taking Coreg 6.25 mg 1 pill BID, Lisinopril 20 mg daily and recently added Amlodipine 5 mg once daily. Checks BP at home, yesterday was 131/81. Denies any chest pain or dizziness. Reports occ sob. Follows with [facility] every 6 months. Next appt is in January. Meds are being adjusted by Cardiology. Lipid: Tries to watch her diet. Denies exercise, but is planning on doing this. [facility] accepts Silver Sneakers so she's planning on getting into this. Taking Lipitor 40 mg daily and ASA 81 mg daily. Thyroid: Taking Levoxyl 100 mcg daily, denies any missed dosages. Pt reports that her hair is falling out like crazy and her nails are brittle and splitting. She's using OTC Biotin. Insomnia: Taking Trazodone 50 mg 2 pill once daily at bedtime. Reports having trouble falling asleep with taking only 2 pills, wondering if she can increase this to 3 tabs to see if this helps her fall asleep. Memory/Neuro: Follows with Neurology for neuropathy, memory, frequent falls, and hx of CVA. Is having issues with her right foot, noting drop foot. States that she's getting PT currently. Currently taking Aricept 10 mg daily. Podiatry - Follows with Dr. Cannon at [facility] for right drop foot. Is also having anUS or PAD testing done for the swelling and pain in her lower legs. Pt also notes she's in PT as well for right drop foot. Doing PT through [facility] in [place]. HM - Does have Adv Dir/Living Will, both daughters are in charge of her medical. Past medical history, appointments, medications, allergies reviewed. 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 07/07/2015 HLD (hyperlipidemia) HTN (hypertension) Iron deficiency anemia due to chronic blood loss 03/06/2015 Kidney stone Lens replaced by other means - Right Eye 12/26/2014 Memory loss Osteoarthrosis, unspecified whether generalized or localized, other specified sites Other vitreous opacities - Both Eyes 07/07/2014 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 S/P laser cataract surgery - Right Eye 12/26/2014 S/P LASIK surgery of both eyes - Both Eyes 07/07/2014 Tear film insufficiency, unspecified 12/11/2014 Unspecified constipation Previous Surgical History PAST SURGICAL HISTORY Procedure Laterality Date APPENDECTOMY 1994 ARTHRP INTERCARPAL/CARP/MTCRPL JT INTERPOSITION Right 10/07/2016 Right thumb CMC arthroplasty ; THYROIDECTOMY TOTAL OR COMPLETE 02/08/2012 COLONOSCOPY FLX DX W/COLLJ SPEC WHEN PFRMD 08/03/2005 Colonoscopy COLONOSCOPY GEN ANES 08/26/2020 Repeat in 5-10 years COLONOSCOPY W/BIOPSY SINGLE/MULTIPLE 06/19/2015 normal colon CORRJ HLX VLGS BNCTY SESMDC W/DOUBLE OSTEOTOMY 2004 RIGHT FOOT DILATION & CURETTAGE DX&/THER NONOBSTETRIC 1979 AFTER MISCARRAGE EGD 08/26/2020 EGD TRANSORAL BIOPSY SINGLE/MULTIPLE 06/19/2015 gastritis ESOPHAGOGASTRODUODENOSCOPY TRANSORAL DIAGNOSTIC 08/03/2005 EGD PAST SURGICAL HISTORY OF 1975 RECTAL WALL REPAIR PAST SURGICAL HISTORY OF 2002 Lasik Surgery on both eyes ([place]) PAST SURGICAL HISTORY OF 2010 broken neck PAST SURGICAL HISTORY OF 08/2015 Bare metal stent/ graft of heart x 1 PRQ CARDIAC STENT W/ANGIO 1 VSL 09/01/2015 Mid Lad TONSILLECTOMY PRIMARY/SECONDARY <AGE 12 TOTAL ABDOMINAL HYSTERECT W/WO RMVL TUBE OVARY 1994 Hysterectomy, TAHBSO XCAPSL CTRC RMVL INSJ IO LENS PROSTH W/O ECP 12/25/2014 Cataract Extraction with Femtosecond Laser (LenSx)-right eye Family History FAMILY HISTORY Problem Relation Age of Onset Alzheimer's Disease Mother Heart Mother Heart Father 83 years old Hypertension Father Stroke Father Cataract Father other (parkinson's) Father Colon Cancer Maternal Aunt Diabetes Maternal Grandmother Diabetes Maternal Aunt other (ibs) Brother Heart Sister other (knee replacements) Sister other (cataract surgery) Sister Heart Sister Patient Allergies ALLERGIES Allergen Reactions Contrast Dye [Iodin* Itching Pt felt like she was going to or have a seizure, per pt Albuterol Intolerance Amoxil [Amoxicillin] Other: See Comments Thick tongue Clindamycin Swelling Codeine Vomiting Diatrizoate Meg[place]umi* Itching Dyazide [Triamteren* Intolerance incontinence urine Erythromycin GI Upset Flexeril [Cyclobenz* Mental Status Change Oxycodone Vomiting Oxycontin [Oxycodon* GI Upset, Vomiting Tessalon Perles [Be* GI Upset Tetanus Vaccines An* Vicodin [Hydrocodon* Intolerance Twitching, shaky Current Medications Current Outpatient Medications on File Prior to Visit Medication Sig donepezil (ARICEPT) 10 mg tablet Take 1 tablet by mouth daily at bedtime. traZODone (DESYREL) 50 mg tablet Take 2 tablets by mouth daily at bedtime. levothyroxine (LEVOXYL) 100 mcg tablet Take 1 tablet by mouth once daily. Take on empty stomach. For Thyroid. lisinopril (ZESTRIL) 20 mg tablet Take 1 tablet by mouth once daily. atorvastatin (LIPITOR) 40 mg tablet AT BEDTIME carvedilol (COREG) 6.25 mg tablet Take 6.25 mg by mouth two times a day with meals. Cholecalciferol, Vitamin D3, 50 mcg (2,000 unit) cap DAILY aspirin, enteric coated (ASPIRIN, ENTERIC COATED) 81 mg EC tablet Take 1 tablet by mouth once daily. COMPOUNDED PRESCRIPTION Home blood pressure monitor. DX: Essential HTN I10 CENTRUM SILVER ORAL TAB Take one(1) tablet daily. No current facility-administered medications on file prior to visit. Social History Social History Tobacco Use Smoking status: Never Smokeless tobacco: Never Vaping Use Vaping status: Never Used Substance Use Topics Alcohol use: Yes Comment: special occasions Drug use: No Comment: coffee EXAM: BP 136/82 Pulse 60 Resp 18 Wt 54.2 kg (119 lb 7.8 oz) BMI 21.51 kg/m General Appearance: Well appearing, alert, in no acute distress, well-hydrated, well nourished.. Lungs: Lungs clear to auscultation. No wheezing, rhonchi, rales.. Heart: RRR with high pitched systolic murmur Health Maintenance List BP Controlled (<130/80) due on 05/01/2020 LDL Cholesterol due on 12/02/2022 Advance Directive Discussion due on 09/11/2024 Influenza Vaccine(1) due on 03/10/2025 RSV Vaccine(1 - 1-dose 75+ series) due on 06/10/2025 Covid-19 Vaccine( - season) due on 06/10/2025 Anxiety Screening due on 06/10/2025 Annual PCP Team Chronic Disease Visit due on 09/19/2025 Diabetes Screening due on 11/05/2027 DTaP,Tdap,Td Vaccine(4 - Td or Tdap) due on 12/04/2029 Bone Density Screening Completed Shingrix Vaccine Completed Pneumococcal Vaccine: 50+ Completed Colorectal Cancer Screening Discontinued Data reviewed Appointment on 11/05/2024 Component Date Value WBC 11/05/2024 4.91 RBC 11/05/2024 4.68 Hemoglobin 11/05/2024 14.3 Hematocrit 11/05/2024 41.5 MCV 11/05/2024 88.7 MCH 11/05/2024 30.6 MCHC 11/05/2024 34.5 RDW-CV 11/05/2024 11.9 Platelet Count 11/05/2024 280 MPV 11/05/2024 8.5 (L) Neutrophils % 11/05/2024 60.4 Abs Neut 11/05/2024 2.96 Lymphocytes % 11/05/2024 30.5 Abs Lymph 11/05/2024 1.50 Monocytes % 11/05/2024 7.1 Abs [place] 11/05/2024 0.35 Eosinophils % 11/05/2024 1.4 Abs Eosin 11/05/2024 0.07 Basophils % 11/05/2024 0.4 Abs Baso 11/05/2024 <0.03 Immature Granulocytes % 11/05/2024 0.2 Abs Immature Gran 11/05/2024 <0.03 NRBC 11/05/2024 0.0 Absolute nRBC 11/05/2024 <0.01 Diff Type 11/05/2024 Auto Protein, Total 11/05/2024 7.0 Albumin 11/05/2024 4.3 Calcium, Total 11/05/2024 9.4 Bilirubin, Total 11/05/2024 0.4 Alkaline Phosphatase 11/05/2024 111 AST 11/05/2024 32 ALT 11/05/2024 24 Glucose 11/05/2024 104 (H) BUN 11/05/2024 18 Creatinine 11/05/2024 0.88 Sodium 11/05/2024 143 Potassium 11/05/2024 4.3 Chloride 11/05/2024 104 CO2 11/05/2024 28 Anion Gap 11/05/2024 11 Estimated Glomerular Cristofer* 11/05/2024 67 CRP 11/05/2024 <0.3 Sed Rate, [place] 11/05/2024 5 Hemoglobin A1C 11/05/2024 4.6 Estimated Average Glucose 11/05/2024 85 Vitamin B12 11/05/2024 577 TSH 11/05/2024 0.278 Methylmalonic Acid 11/05/2024 0.23 Vitamin B6 11/05/2024 125.7 (H) Vitamin B1 (Thiamine dip* 11/05/2024 259.8 (H) Protein, Total 11/05/2024 6.5 Albumin for SPE 11/05/2024 4.04 Alpha 1 Globulin 11/05/2024 0.26 Alpha 2 Globulin 11/05/2024 0.69 Beta Globulin 11/05/2024 0.80 Gamma Globulin 11/05/2024 0.71 Interpretation (Prot Karie* 11/05/2024 No definitive M protein is identified on protein electrophoresis. M-Protein Location 11/05/2024 M-Protein Concentration 11/05/2024 0.00 SPE Staff Review 11/05/2024 Reviewed by Je Quinn MD, Ph.D ([id number]) Comment (Serum Prot Elec* 11/05/2024 Monoclonal Protein analysis (immunofixation) is not indicated. 1. Essential hypertension (I10) Blood pressure is well-controlled. Continue current management and follow-up with [facility] in January. 2. 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(I25.10) Clinically stable. Continue current management and follow-up with [facility] in January. 3. History of stroke (Z86.73) Clinically stable. Continue current management. 4. Hypothyroidism, acquired (E03.9) Thyroid function tests are within normal limits. Refilled thyroid medication at [facility] in [place]. 5. Sleep disorder (G47.9) Experiencing nocturnal awakenings around 8530-5105. Currently taking Trazodone. Increase Trazodone to 3 tablets nightly. If effective, adjust prescription quantity accordingly. 6. Myalgias (M79.10) Experiencing leg pain, possibly due to poor circulation. Undergoing physical therapy at [facility] in [place]. Continue physical therapy. Await results of scheduled Doppler ultrasound to assess circulation. 7. Dementia without behavioral disturbance, psychotic disturbance, mood disturbance, or anxiety, unspecified dementia severity, unspecified dementia type (HCC) (F03.90) Memory function appears to be stable on Aricept, prescribed by neurology. Continue Aricept as prescribed. Follow-up with neurology as scheduled. 8. Hyperlipidemia, unspecified hyperlipidemia type (E78.5) Clinically stable on Lipitor. Continue Lipitor. Maintain a diet rich in fruits and vegetables. Follow up in 6 months Medical Decision Making: Problems: Moderate: 2+ stable chronic illnesses Data: Unique test result(s) reviewed: 3+ Risk: Moderate: Drug management Medical Decision Making Level: 4 - Moderate Armando D Elderbrock, MD The patient consented to the use of ambient AI software for draft documentation of the visit consistent with [facility] s Notice of Privacy Practices. documented in this encounterSheltering [facility]04-[facility]25 NoteHNO ID: [id number] Author: ARMANDO OROZCO MD Service: ? Author Type: Physician Type: Progress Notes Filed: 12/10/2024 13:51 Note Text: Chief Complaint Patient presents with: F/U 6 Month HPI Bharti Akbar is a 79 year old female who presents here today for 6 month follow up. Pt here today for a 6 month follow up. Bharti is adjusting to usp, noting a significant decrease in physical activity from 10,000-13,000 steps per day to less than 2,000. She misses the social interaction and sense of purpose from her previous job at [employer] and is considering volunteer work at [facility]. She also mentions her 's reluctance to travel, which affects their ability to visit family. She has concerns about long drives but has recently purchased a car with advanced safety features to facilitate travel. GI/Uro - Denies any stomach or bowel issues at present time. Hx of diverticulitis. Follows with Dr. Lakhani for urinary issues such as frequency/incontinence. HTN: Taking Coreg 6.25 mg 1 pill BID, Lisinopril 20 mg daily and recently added Amlodipine 5 mg once daily. Checks BP at home, yesterday was 131/81. Denies any chest pain or dizziness. Reports occ sob. Follows with [facility] every 6 months. Next appt is in January. Meds are being adjusted by Cardiology. Lipid: Tries to watch her diet. Denies exercise, but is planning on doing this. [facility] accepts Silver Sneakers so she's planning on getting into this. Taking Lipitor 40 mg daily and ASA 81 mg daily. Thyroid: Taking Levoxyl 100 mcg daily, denies any missed dosages. Pt reports that her hair is falling out like crazy and her nails are brittle and splitting. She's using OTC Biotin. Insomnia: Taking Trazodone 50 mg 2 pill once daily at bedtime. Reports having trouble falling asleep with taking only 2 pills, wondering if she can increase this to 3 tabs to see if this helps her fall asleep. Memory/Neuro: Follows with Neurology for neuropathy, memory, frequent falls, and hx of CVA. Is having issues with her right foot, noting drop foot. States that she's getting PT currently. Currently taking Aricept 10 mg daily. Podiatry - Follows with Dr. Cannon at [facility] for right drop foot. Is also having an US or PAD testing done for the swelling and pain in her lower legs. Pt also notes she's in PT as well for right drop foot. Doing PT through [facility] in [place]. HM - Does have Adv Dir/Living Will, both daughters are in charge of her medical. Past medical history, appointments, medications, allergies reviewed. 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 07/07/2015 HLD (hyperlipidemia) HTN (hypertension) Iron deficiency anemia due to chronic blood loss 03/06/2015 Kidney stone Lens replaced by other means - Right Eye 12/26/2014 Memory loss Osteoarthrosis, unspecified whether generalized or localized, other specified sites Other vitreous opacities - Both Eyes 07/07/2014 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 S/P laser cataract surgery - Right Eye 12/26/2014 S/P LASIK surgery of both eyes - Both Eyes 07/07/2014 Tear film insufficiency, unspecified 12/11/2014 Unspecified constipation Previous Surgical History PAST SURGICAL HISTORY Procedure Laterality Date APPENDECTOMY 1994 ARTHRP INTERCARPAL/CARP/MTCRPL JT INTERPOSITION Right 10/07/2016 Right thumb CMC arthroplasty ; THYROIDECTOMY TOTAL OR COMPLETE 02/08/2012 COLONOSCOPY FLX DX W/COLLJ SPEC WHEN PFRMD 08/03/2005 Colonoscopy COLONOSCOPY GEN ANES 08/26/2020 Repeat in 5-10 years COLONOSCOPY W/BIOPSY SINGLE/MULTIPLE 06/19/2015 normal colon CORRJ HLX VLGS BNCTY SESMDC W/DOUBLE OSTEOTOMY 2004 RIGHT FOOT DILATION AND CURETTAGE DXAND/THER NONOBSTETRIC 1979 AFTER MISCARRAGE EGD 08/26/2020 EGD TRANSORAL BIOPSY SINGLE/MULTIPLE 06/19/2015 gastritis ESOPHAGOGASTRODUODENOSCOPY TRANSORAL DIAGNOSTIC 08/03/2005 EGD PAST SURGICAL HISTORY OF 1975 RECTAL WALL REPAIR PAST SURGICAL HISTORY OF 2002 Lasik Surgery on both eyes ([place]) PAST SURGICAL HISTORY OF 2010 broken neck PAST SURGICAL HISTORY OF 08/2015 Bare metal stent/ graft of heart x 1 PRQ CARDIAC STENT W/ANGIO 1 VSL 09/01/2015 Mid Lad TONSILLECTOMY PRIMARY/SECONDARY TOTAL ABDOMINAL HYSTERECT W/WO RMVL TUBE OVARY 1994 Hysterectomy, TAHBSO XCAPSL CTRC RMVL INSJ IO LENS PROSTH W/O ECP 12/25/2014 Cataract Extraction with (more content not included)...[facility]03-10-2025 NoteHNO ID: [id number] Author: REBEKAH ASHBY MD Service: ? Author Type: Physician Type: Progress Notes Filed: 11/18/2024 10:50 Note Text: UNIVERSAL PROTOCOL / SAFETY CHECKLIST Procedure to be Performed: EMG Sign In: A Moment of CARE was completed. Personnel directly involved with the procedure wore the appropriate PPE (Personal Protective Equipment). Patient/Surrogate Stated/Verified: Patient name, Date of , Relevant allergies, and The intended procedure Time Out Communication: Intended patient and procedure match the source documents. Correct side/site marked and visible. Sign Out: SIGN OUT (optional for EMERGENT procedures): Post-procedure follow-up management communicated and Plan of Care Visit completed when applicable. Yeshim Arslanova Emg tech Rebekah Ashby [facility]03-10-2025 History of Present illness Narrative* Rebekah Ashby MD - 11/18/2024 9:57 AM EDT UNIVERSAL PROTOCOL / SAFETY CHECKLIST Procedure to be Performed: EMG Sign In: A Moment of CARE was completed. Personnel directly involved with the procedure wore the appropriate PPE (Personal Protective Equipment). Patient/Surrogate Stated/Verified: Patient name, Date of , Relevant allergies, and The intended procedure Time Out Communication: Intended patient and procedure match the source documents. Correct side/site marked and visible. Sign Out: SIGN OUT (optional for EMERGENT procedures): Post-procedure follow-up management communicated and Plan of Care Visit completed when applicable. Yeshim Marco A Emg tech Rebekah Ashby MD documented in this encounterShel[facility]02-25-2025 Instructions* Patient Instructions* Maya Katz PA-C - 11/05/2024 12:00 PM EST Alpha lipoic acid 600mg for nerve pain EMG of the right leg Laboratory studies Continue with Aricept 10mg once daily Follow up in 3-[address] Granger documented in this encounterSheltering [facility]02-25-2025 NoteHNO ID: [id number] Author: MAYA KATZ PA-C Service: ? Author Type: Physician Washer And Crusher Tender Type: Progress Notes Filed: 11/05/2024 13:04 Note Text: [facility] Name: Bharti Akbar Age: [age] year old Gender: female Primary Care Provider: Armando Orozco MD 11/05/2024 - General Neurology, Maya Katz PA-C ASSESSMENT ASSESSMENT/PLAN: 1. Neuropathy - ICD9: 355.9, ICD10: G62.9 (primary diagnosis) Patient with new onset burning, numbness and tingling to the feet bilaterally starting at the toes a few months ago and radiating up. Noting a few falls but known more than previous. Has some difficulty picking up the feet as well which is worsened. Does take B complex but no other risk factors for neuropathy. Does have signs and symptoms of stocking glove neuropathy on exam up to the knee. Discussed ordering basic blood work to look for common causes of neuropathy as well as an EMG study and patient is amenable. 2. Dementia without behavioral disturbance, psychotic disturbance, mood disturbance, or anxiety, unspecified dementia severity, unspecified dementia type (HCC) - ICD9: 294.20, ICD10: F03.90 Main concern today was pain in the legs noted above, notes no significant change in memory, unfortunately unable to repeat MoCA today. Continuing Aricept 10 mg daily, refills were sent. Encouraged conservative therapy including increasing physical and cognitive activity. Discussed only driving locally, no issues with this. 3. Unsteadiness - ICD9: 781.2, ICD10: R26.81 4. Frequent falls - ICD9: V15.88, ICD10: R29.6 Unclear etiology for unsteadiness, will obtain EMG of the lower extremities look for signs of neuropathy. Previous imaging of the central nervous system is negative per radiology. Patient deferring previous second opinion with movement. 5. Lacunar infarction (HCC) - ICD9: 434.91, ICD10: I63.81 No new neurologic symptoms. Previously received TNK, but no positive stroke found on imaging. Continuing aspirin therapy at this time. 6. Right leg weakness - ICD9: 729.89, ICD10: R29.898 Has right leg weakness appreciated on exam, will obtain EMG for further evaluation. Patient agreeable to treatment plan of care at this time, questions were answered. Patient to follow-up after workup is completed. Myaa Katz PA-C Alzheimer's Society: Join to learn about many resources and supports for you, as the caregiver Community Resources: E.g. LIFE - A Dementia Friendly Foundation on the [place] side [facility]. PULL UP HAND/OT/PT: Speech therapy, Occupational therapy, Physical Therapy Driving: Do you have safety concerns? Power of Location Man/ planning of the patient's will Project Lifesaver: Local police will keep records of your loved one if they tend to get lost, and will bring them home. Lifeline: emergency response button/necklace/bracelet Caregiver Health: Important to ensure you are taking care of your mental and physical health so you can care for your loved one SW consult: Do you want a social work referral to understand what resources are available to you? This is a 79 year old female followed for dementia Current medication treatment: aricept 10mg Indication for repeat cognitive testing: No No diagnosis found. No follow-ups on file. Chart, labs,and relevant images reviewed. Chief Complaint:Patient presents with: Established Patient: C/o bilateral legs hurting, numbness, tingling from ankle to knees, tx tylenol, consistent Chart Review: 01/12/24 ASSESSMENT/PLAN: 1. Dementia without behavioral disturbance, psychotic disturbance, mood disturbance, or anxiety, unspecified dementia severity, unspecified dementia type (HCC) - ICD9: 294.20, ICD10: F03.90 (primary diagnosis) Cognition with minimal improvement on Aricept 5mg daily (subjective history with MOCA essentially unchanged). Unfortunately family again does not present with the patient. At this time, difficult to determine what is true symptoms of cognitive decline suggestive of dementia and what might be behavioral or pseudodementia. That said, hippocampal volumes were in the 5% at time of MRI brain in 08/2023. Will continue to treat as dementia and increase Aricept to 10mg daily. Note, pt reports no longer taking Paxil. Advised pt that she should not be driving. Encouraged brain exercises. Advised pt that she should present next visit with family members. 2. Lacunar infarction (HCC) - ICD9: 434.91, ICD10: I63.81 3. Intracranial vascular stenosis - ICD9: 437.9, ICD10: I67.9 Patient just underwent in hospital stroke workup after receiving TNK per [facility] notes. There was no stroke. As with many of patient's complaints, there is inconsistencies in the history provided. Pt is not reporting an acute change prior to arriving at the hospital nor is she reporting focal neurologic deficits at the time of presentation. I will be making no changes to her prior stro (more content not included)...[facility]02-25-2025 History of Present illness Narrative* Maya Katz PA-C - 11/05/2024 11:17 AM EST Images from the original note were not included. [facility] Name: Bharti Akbar Age: [age] year old Gender: female Primary Care Provider: Armando Orozco MD 11/05/2024 - General Neurology, Maya Katz PA-C ASSESSMENT ASSESSMENT/PLAN: 1. Neuropathy - ICD9: 355.9, ICD10: G62.9 (primary diagnosis) Patient with new onset burning, numbness and tingling to the feet bilaterally starting at the toes a few months ago and radiating up. Noting a few falls but known more than previous. Has some difficulty picking up the feet as well which is worsened. Does take B complex but no other risk factors forneuropathy. Does have signs and symptoms of stocking glove neuropathy on exam up to the knee. Discussed ordering basic blood work to look for common causes of neuropathy as well as an EMG study and patient is amenable. 2. Dementia without behavioral disturbance, psychotic disturbance, mood disturbance, or anxiety, unspecified dementia severity, unspecified dementia type (HCC) - ICD9: 294.20, ICD10: F03.90 Main concern today was pain in the legs noted above, notes no significant change in memory, unfortunately unable to repeat MoCA today. Continuing Aricept 10 mg daily, refills were sent. Encouraged conservative therapy including increasing physical and cognitive activity. Discussed only driving locally, no issues with this. 3. Unsteadiness - ICD9: 781.2, ICD10: R26.81 4. Frequent falls - ICD9: V15.88, ICD10: R29.6 Unclear etiology for unsteadiness, will obtain EMG of the lower extremities look for signs of neuropathy. Previous imaging of the central nervous system is negative per radiology. Patient deferring previous second opinion with movement. 5. Lacunar infarction (HCC) - ICD9: 434.91, ICD10: I63.81 No new neurologic symptoms. Previously received TNK, but no positive stroke found on imaging. Continuing aspirin therapy at this time. 6. Right leg weakness - ICD9: 729.89, ICD10: R29.898 Has right leg weakness appreciated on exam, will obtain EMG for further evaluation. Patient agreeable to treatment plan of care at this time, questions were answered. Patient to follow-up after workup is completed. Maya Katz PA-C Alzheimer's Society: Join to learn about many resources and supports for you, as the caregiver Community Resources: E.g. LIFE - A Dementia Friendly Foundation on the [place] side [facility]. PULL UP HAND/OT/PT: Speech therapy, Occupational therapy, Physical Therapy Driving: Do you have safety concerns? Power of Location Man/ planning of the patient's will Project Lifesaver: Local police will keep records of your loved one if they tend to get lost, and will bring them home. Lifeline: emergency response button/necklace/bracelet Caregiver Health: Important to ensure you are taking care of your mental and physical health so youcan care for your loved one SW consult: Do you want a social work referral to understand what resources are available to you? This is a 79 year old female followed for dementia Current medication treatment: aricept 10mg Indication for repeat cognitive testing: No No diagnosis found. No follow-ups on file. Chart, labs,and relevant images reviewed. Chief Complaint:Patient presents with: Established Patient: C/o bilateral legs hurting, numbness, tingling from ankle to knees, tx tylenol, consistent Chart Review: 01/12/24 ASSESSMENT/PLAN: 1. Dementia without behavioral disturbance, psychotic disturbance, mood disturbance, or anxiety, unspecified dementia severity, unspecified dementia type (HCC) - ICD9: 294.20, ICD10: F03.90 (primary diagnosis) Cognition with minimal improvement on Aricept 5mg daily (subjective history with MOCA essentially unchanged). Unfortunately family again does not present with the patient. At this time, difficult to determine what is true symptoms of cognitive decline suggestive of dementia and what might be behavioral or pseudodementia. That said, hippocampal volumes were in the 5% at time of MRI brain in 08/2023. Will continue to treat as dementia and increase Aricept to 10mg daily. Note, pt reports no longertaking Paxil. Advised pt that she should not be driving. Encouraged brain exercises. Advised pt that she should present next visit with family members. 2. Lacunar infarction (HCC) - ICD9: 434.91, ICD10: I63.81 3. Intracranial vascular stenosis - ICD9: 437.9, ICD10: I67.9 Patient just underwent in hospital stroke workup after receiving TNK per [facility] notes. There was no stroke. As with many of patient's complaints, there is inconsistencies in the history provided. Pt is not reporting an acute change prior to arriving at the hospital nor is she reporting focal neurologic deficits at the time of presentation. I will be making no changes to her prior strokeprevention plan that included daily ASA 81mg, statin, BP goal <140/90 and glucose <140. Educated on stroke and when to present to ER or contact 911 for new focal/neuro deficits. 4. Unsteadiness - ICD9: 781.2, ICD10: R26.81 5. Frequent falls - ICD9: V15.88, ICD10: R29.6 Etiology uncertain as inconsistencies on examination. Imaging studies do not suggest a REMELTER cause (brain and full neur-axis imaged). Question if functional neurologic disorder. Patient declined to seeDr. Camilo for second opinion, but after most recent visits and change in exam, low suspicion for PD. 6. Headaches - ICD9: 784.0, ICD10: R51.9 Resolved. No further therapy. Vega Granger MD HPI: Last seen on 01/12/[address] Granger for dementia. Never saw Dr. Camilo, not driving. [place] , nofamily with pt. Increased aricept to 10mg, stroke prevention. Still having frequent falls, concern for FND, declined referral elsewhere.Imaging done of spine with no process found. Patient presents today for follow-up appointment. Is seen for memory loss and is currently on Aricept 10 mg and feels that is very helpful. Notes that her memory has improved, notes that sometimes inthe middle of a conversation she will forget what she is talking about but otherwise her memory hasbeen stable. Driving without any issue, no accidents, drives locally only. However, main concern today is pain in the legs. Started a few months ago, started in the toes and radiates upward to the knees. Bilateral and equal but does note some worsening weakness on the rightleg. Pain is constant at 5/10 but seems to exacerbate at nighttime to a 9/10. She is unsure what causes it to worsen, feels like a burning numbness and tingling constantly. Notes that she has some intermittent swelling of the right foot with it. Notes that she recently did retire from [employer], was very active during this time but is now less active. Is that she is having some trouble picking up both of the feet as well, has had a few falls that were mild. No history of diabetes but does takeB complex. No history of diabetes. No recent diet changes. Sleep concerns? Poor due to the pain and nightmares. Back on trazadone. Only sleeping 3 hours at a time Eating/nutrition concerns? Okay, increased over the holidays Med side effects concerns? no Hallucinations? no Review of Systems ACTIVE PROBLEM LIST Esophageal Reflux Memory Loss Unspecified Vitamin D Deficiency Depressive Disorder, Not Elsewhere Classified Osteopenia Postsurgical Hypothyroidism Migraine Variant Post-Traumatic Headache Osteoarthritis of Carpometacarpal Joints of Both Thumbs Essential Hypertension Primary Osteoarthritis of First Carpometacarpal Joint of Right Hand Hld (Hyperlipidemia) Coronary Artery Disease Involving [place] Coronary Artery of [place] Heart Without Angina Pectoris Fibromyalgia 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 07/07/2015 HLD (hyperlipidemia) HTN (hypertension) Iron deficiency anemia due to chronic blood loss 03/06/2015 Kidney stone Lens replaced by other means - Right Eye 12/26/2014 Memory loss Osteoarthrosis, unspecified whether generalized or localized, other specified sites Other vitreous opacities - Both Eyes 07/07/2014 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 S/P laser cataract surgery - Right Eye 12/26/2014 S/P LASIK surgery of both eyes - Both Eyes 07/07/2014 Tear film insufficiency, unspecified 12/11/2014 Unspecified constipation Medications: Reviewed traZODone (DESYREL) 50 mg tablet Take 2 tablets by mouth daily at bedtime. donepezil (ARICEPT) 10 mg tablet Take 1 tablet by mouth daily at bedtime. levothyroxine (LEVOXYL) 100 mcg tablet Take 1 tablet by mouth once daily. Take on empty stomach. For Thyroid. lisinopril (ZESTRIL) 20 mg tablet Take 1 tablet by mouth once daily. atorvastatin (LIPITOR) 40 mg tablet AT BEDTIME carvedilol (COREG) 6.25 mg tablet Take 6.25 mg by mouth two times a day with meals. Cholecalciferol, Vitamin D3, 50 mcg (2,000 unit) cap DAILY aspirin, enteric coated (ASPIRIN, ENTERIC COATED) 81 mg EC tablet Take 1 tablet by mouth once daily. COMPOUNDED PRESCRIPTION Home blood pressure monitor. DX: Essential HTN I10 CENTRUM SILVER ORAL TAB Take one(1) tablet daily. ALLERGIES Allergen Reactions Contrast Dye [Iodin* Itching Pt felt like she was going to or have a seizure, per pt Albuterol Intolerance Amoxil [Amoxicillin] Other: See Comments Thick tongue Clindamycin Swelling Codeine Vomiting Diatrizoate Meglumi* Itching Dyazide [Triamteren* Intolerance incontinence urine Erythromycin GI Upset Flexeril [Cyclobenz* Mental Status Change Oxycodone Vomiting Oxycontin [Oxycodon* GI Upset, Vomiting Tessalon Perles [Be* GI Upset Tetanus Vaccines An* Vicodin [Hydrocodon* Intolerance Twitching, shaky FAMILY HISTORY Problem Relation Age of Onset Alzheimer's Disease Mother Heart Mother Heart Father 83 years old Hypertension Father Stroke Father Cataract Father other (parkinson's) Father Colon Cancer Maternal Aunt Diabetes Maternal Grandmother Diabetes Maternal Aunt other (ibs) Brother Heart Sister other (knee replacements) Sister other (cataract surgery) Sister Heart Sister PAST SURGICAL HISTORY Procedure Laterality Date APPENDECTOMY 1994 ARTHRP INTERCARPAL/CARP/MTCRPL JT INTERPOSITION Right 10/07/2016 Right thumb CMC arthroplasty ; THYROIDECTOMY TOTAL OR COMPLETE 02/08/2012 COLONOSCOPY FLX DX W/COLLJ SPEC WHEN PFRMD 08/03/2005 Colonoscopy COLONOSCOPY GEN ANES 08/26/2020 Repeat in 5-10 years COLONOSCOPY W/BIOPSY SINGLE/MULTIPLE 06/19/2015 normal colon CORRJ HLX VLGS BNCTY SESMDC W/DOUBLE OSTEOTOMY 2004 RIGHT FOOT DILATION & CURETTAGE DX&/THER NONOBSTETRIC 1979 AFTER MISCARRAGE EGD 08/26/2020 EGD TRANSORAL BIOPSY SINGLE/MULTIPLE 06/19/2015 gastritis ESOPHAGOGASTRODUODENOSCOPY TRANSORAL DIAGNOSTIC 08/03/2005 EGD PAST SURGICAL HISTORY OF 1975 RECTAL WALL REPAIR PAST SURGICAL HISTORY OF 2002 Lasik Surgery on both eyes ([place]) PAST SURGICAL HISTORY OF 2010 broken neck PAST SURGICAL HISTORY OF 08/2015 Bare metal stent/ graft of heart x 1 PRQ CARDIAC STENT W/ANGIO 1 VSL 09/01/2015 Mid Lad TONSILLECTOMY PRIMARY/SECONDARY <AGE 11 TOTAL ABDOMINAL HYSTERECT W/WO RMVL TUBE OVARY 1994 Hysterectomy, TAHBSO XCAPSL CTRC RMVL INSJ IO LENS PROSTH W/O ECP 12/25/2014 Cataract Extraction with Femtosecond Laser (LenSx)-right eye Social Hx: @Alcohol Use: Patient Declined (09/12/2023) AUDIT-C Frequency of Alcohol Consumption: Patient declined Average Number of Drinks: Patient declined Frequency of Binge Drinking: Patient declined Tobacco Use: Low Risk (09/19/2024) Patient History Smoking Tobacco Use: Never Smokeless Tobacco Use: Never Passive Exposure: Not on file 11/05/24 1118 BP: 160/67 Pulse: 66 Neurologic Exam Cognitive and Language: Alert and answered questions appropriately. Language was fluent. Cranial Nerves: Extraocular movements were full with no diplopia or nystagmus. Facial strength was symmetric. Motor: Right lower extremity with 4 to 4+/5 throughout. 4+/5 to the left hip flexor. Upper extremities with decreased psychology technician strength but otherwise full strength. Sensory: Decreased sensation to temperature at the feet and ankle, slightly worse on the right thanthe left. Decreased vibration to the great toe significantly, slightly at the knee bilaterally. Poor proprioception on Romberg testing, did take a step on Romberg. Split tuning fork: States that it lateralizes to both sides, does not stay in the middle Coordination: Normal finger to nose and heel to grande testing bilaterally. Gait is slowed, slightly wide-based. Labs: Lab Results Component Value Date WBC 4.65 03/20/2024 HCT 41.9 03/20/2024 MCV 89.1 03/20/2024 PLT 275 03/20/2024 No results found for: HBA1C Total Cholesterol, Nonfasting Date Value Ref Range Status 03/28/2018 217 (H) <200 mg/dL Final Comment: <200 mg/dL, Desirable 200-239 mg/dL, Borderline high >239 mg/dL, High HDL Cholesterol, Nonfasting Date Value Ref Range Status 03/28/2018 76 >39 mg/dL Final Comment: 40-59 mg/dL, Acceptable >59 mg/dL, High: Negative risk factor for coronary heart disease <40 mg/dL, Low: Positive risk factor for coronary heart disease LDL Cholesterol, Nonfasting Date Value Ref Range Status 03/28/2018 120 (H) <100 mg/dL Final Comment: <100 mg/dL, Optimal 100-129 mg/dL, Near optimal/above optimal 130-159 mg/dL, Borderline high 160-189 mg/dL, High >189 mg/dL, Very high Secondary prevention optimal LDL Cholesterol levels are recommended to be < 70 mg/dL Triglycerides, Nonfasting Date Value Ref Range Status 03/28/2018 107 <150 mg/dL Final Comment: <150 mg/dL, Normal 150-199 mg/dL, Borderline high 200-499 mg/dL, High >499 mg/dL, Very high Lab Results Component Value Date TSH 1.830 09/30/2024 TSH 1.000 11/01/2021 Lab Results Component Value Date B12 556 10/04/2023 B12 556 11/01/2021 Results for orders placed or performed in visit on 09/30/24 THYROID STIMULATING HORMONE Result Value Ref Range TSH 1.830 0.270 - 4.200 mIU/L *Note: Due to a large number of results and/or encounters for the requested time period, some results have not been displayed. A complete set of results can be found in Results Review. Radiology: MRI Head/Brain - Last 2 Impressions MRI BRAIN WO IVCON Exam End: 08/30/2023 10:26 AM (Final result) Impression: IMPRESSION: No acute intracranial process. Chronic changes and quantitative volumes as described. ... MRI BRAIN WO IVCON Exam End: 04/19/2021 10:02 AM (Final result) Impression: No acute process ... This note was dictated using [employer]AF[employer] speech recognition software and may contain some errors that were a result of the program not accurately transcribing what was dictated, despite efforts to make corrections. Note that unless urgent, test and MRI results will be discussed at next follow- up visit. PROMIS (Patient-Reported Outcomes Measurement Information System) is a set of person-centered measures that evaluates and monitors physical, social, and emotional health. It can be used with the general population and with individuals living with chronic conditions. PROMIS 10: PHYSICAL AND MENTAL HEALTH: Global Physical Health T Score: 50.8 Global Physical Health Percentile: 53 Global Mental Health T Score: 56 Global Mental Health Percentile: 73 04/12/2021 PHQ-9 PHQ-2 Score 0 PHQ-9 Score 4 Medical Decision Making: Medical Decision Making Level: 1 - N/A I spent a total of 30 minutes on the date of the service which included preparing to see the patient, [id number] patient care, completing clinical documentation, obtaining and/or reviewing separately obtained history, performing a medically appropriate examination, counseling and educating the pat ient/family/caregiver, and ordering medications, tests, or procedures. 11/01/2024 PROMIS Global Health Physical Health Summary Physical health: Very good Everyday physical activity, ability: Completely Fatigue: Mild Pain level: 5 General health: Good Social activities/roles, ability: Very good Physical Health T-Score 50.8 (Very Good) Physical Health Percentile 53 PROMIS Global Health Mental Health Summary Quality of life: Very good Mental health (mood,thinking): Very good Social satisfaction: Very good Emotional problems (anxious,depressed): Never Mental Health T-Score 56 (Excellent) Mental Health Percentile 73 PROMIS Pain Interference T-Score 61(Moderate) PROMIS Pain Interference Percentile 14 Percentiles provide an indication of how a patient's score ranks in relation to the [place] general population. > 31st percentile is within normal limits or better *< 31st percentile is at least SD worse than population, which may be clinically relevant < 16th percentile is at least 1 SD worse than population and warrants attention [facility] Telephone encounter Note * Telephone Encounter - Shannon Elkins RN - 09/25/2024 3:15 PM EST Patient notified of results and provider's instructions. Patient verbalizes understanding. Shannon Elkins RN [facility]01-[facility] Miscellaneous Notes* Telephone Encounter - Shannon Elkins RN - 09/25/2024 3:15 PM EST Patient notified of results and provider's instructions. Patient verbalizes understanding. Shannon Elkins RN * Telephone Encounter - Kim Sena LPN - 09/25/2024 10:22 AM EST TC to pt. LM to call office, ask for triage nurse to get results. Kim Sena LPN * Telephone Encounter - Emelia Lynn APRN.CNP - 09/25/2024 10:15 AM EST Can you please call the patient and let her know that I reviewed her foot x-ray results. X-ray showed No acute fracture or dislocation. Severe first MTP joint osteoarthritis. Mild scattered interphalangeal joint space narrowing which is consistent with arthritis. I would recommend that she keep upcoming appointment with podiatry for further evaluation. Thank you. Emelia Lynn APRN.FREDY documented in this [facility]01-[facility] Telephone encounter Note * Telephone Encounter - Kim Sena LPN - 09/25/2024 10:22 AM EST TC to pt. LM to call office, ask for triage nurse to get results. Kim Sena LPN [facility]01-15-20[facility] Telephone encounter Note* Telephone Encounter - Emelia Lynn APRN.CNP - 09/25/2024 10:15 AM EST Can you please call the patient and let her know that I reviewed her foot x-ray results. X-ray showed No acute fracture or dislocation. Severe first MTP joint osteoarthritis. Mild scattered interphalangeal joint space narrowing which is consistent with arthritis. I would recommend that she keep upcoming appointment with podiatry for further evaluation. Thank you. Emelia Lynn APRN.FREDY [facility]01-13-20[facility] Telephone encounter Note* Telephone Encounter - Winnie Cunningham LPN - 09/23/2024 1:49 PM EST Patient notified. Verbalized understanding. [facility]01-[facility] Miscellaneous Notes* Telephone Encounter - Winnie Cunningham LPN - 09/23/2024 1:49 PM EST Patient notified. Verbalized understanding. * Telephone Encounter - Kushal Weldon APRN.CNP - 09/23/2024 1:44 PM EST TSH placed. I reviewed her chart, she had a complete autoimmune, rheumatoid workup in December 2023. This will not change. No need to repeat. Kushal Weldon APRN.CNP * Telephone Encounter - Kika Costa LPN - 09/23/2024 10:15 AM EST Pt calling to request lab work today. She was seen on 09-19-24 by Emelia and forgot to ask. She wouldlike labs done on Thyroid, labs regarding arthritis. Pt not feeling well whether it is arthritis orfibromyalgia. Pt has an apt in [place] today and was hoping she could do this also. Please call pt to let her know when the labs are in. Kika Costa LPN documented in this encounterS[facility]01-[facility] Telephone encounter Note * Telephone Encounter - Kushal Weldon APRN.CNP - 09/23/2024 1:44 PM EST TSH placed. I reviewed her chart, she had a complete autoimmune, rheumatoid workup in December 2023. This will not change. No need to repeat. Kushal Weldon APRN.CNP [facility]01-[facility] Telephone encounter Note* Telephone Encounter - Kika Costa LPN - 09/23/2024 10:15 AM EST Pt calling to request lab work today. She was seen on 09-19-24 by Emelia and forgot to ask. She wouldlike labs done on Thyroid, labs regarding arthritis. Pt not feeling well whether it is arthritis orfibromyalgia. Pt has an apt in [place] today and was hoping she could do this also. Please call pt to let her know when the labs are in. Kika Costa LPN [facility]01-13-[facility] Miscellaneous Notes* Telephone Encounter - Sanaz Smith MA - 09/23/2024 9:53 AM EST Referral paperwork and recent x-ray faxed to [facility] at [phone]. Pt notified to contact there office to setup appt. Sanaz Smith MA documented in this encounterS[facility]01-[facility] Telephone encounter Note * Telephone Encounter - Sanaz Smith MA - 09/23/2024 9:53 AM EST Referral paperwork and recent x-ray faxed to [facility] at [phone]. Pt notified to contact there office to setup appt. Sanaz Smith MA [facility]01-[facility] History of Present illness Narrative* Cleveland Tabares RT(R) - 09/19/2024 2:50 PM EST Radiology Service Progress Note PATIENT NAME: Bharti Akbar DATE OF SERVICE: September 19, 2024 TIME: 2:44 PM PATIENT IDENTITY VERIFICATION COMPLETED USING TWO (2) IDENTIFIERS: Name and Date of confirmedby patient verbally. FALL SCREENING: Has the patient had 2 falls in the last year or 1 fall with injury or currently using an Ambulatory Assistive Device (Walker, Cane, Wheelchair, Crutches, etc.)? No PATIENT GENDER DATA: Female. status: : No status: NO. PATIENT RELEVANT IMPLANT DATA REVIEWED: Yes PATIENT PRESENTS WITH AN IMPLANTABLE OR ATTACHED CARTON FORMING MACHINE HELPER: No RADIOLOGY DEPARTMENT: General X-ray: Exam(s) Completed: Lower Extremity X- Ray(s): Foot, Right PERIPHERAL IV DATA: Not applicable SIGNED BY: RT Naldo(Michelle) September 19, 2024 2:44 PM documented in this encounterShel[facility]01-09-2025 NoteHNO ID: [id number] Author: CLEVELAND TABARES RT(R) Service: ? Author Type: Continuous Still Operator Type: Progress Notes Filed: 09/19/2024 14:58 Note Text: Radiology Service Progress Note PATIENT NAME: Bharti Akbar DATE OF SERVICE: September 19, 2024 TIME: 2:44 PM PATIENT IDENTITY VERIFICATION COMPLETED USING TWO (2) IDENTIFIERS: Name and Date of confirmed by patient verbally. FALL SCREENING: Has the patient had 2 falls in the last year or 1 fall with injury or currently using an Ambulatory Assistive Device (Walker, Cane, Wheelchair, Crutches, etc.)? No PATIENT GENDER DATA: Female. status: : No status: NO. PATIENT RELEVANT IMPLANT DATA REVIEWED: Yes PATIENT PRESENTS WITH AN IMPLANTABLE OR ATTACHED CARTON FORMING MACHINE HELPER: No RADIOLOGY DEPARTMENT: General X-ray: Exam(s) Completed: Lower Extremity X-Ray(s): Foot, Right PERIPHERAL IV DATA: Not applicable SIGNED BY: RT Naldo(R) September 19, 2024 2:44 [facility]01-09-2025 Instructions* Patient Instructions* Emelia Lynn APRN.PHARMACOVIGILANCE SAFETY EXPERT - 09/19/2024 2:36 PM EST Get xray completed today Recommend consult with podiatry Continue supportive care at home May use anastasia bandage, apply ice and elevate as needed. May use Tylenol 650-1000 mg every 8 hours as needed for pain. Follow up pending test results. documented in this encounterS[facility]01-[facility]25 History of Present illness Narrative* Emelia Lynn APRN.FREDY - 09/19/2024 2:20 PM EST This is a 78 year old female who presents today with: Patient presents with: Acute Visit: right foot swelling - injury tripped up the stairs HISTORY OF PRESENT ILLNESS: Bharti Akbar is a 78 year old female. Patient presents with: Acute Visit: right foot swelling - injury tripped up the stairs Here in the office for right foot and ankle pain. Started about 2 months ago, tripped going into the house. Refers that pain and swelling is getting worse. Taking Tylenol and applying ice as needed. Has noticed numbness and tingling in the foot that seems to wax and wane. History of intracranial vascular stenosis, chronic lacunar infarct on MRI brain. Following With neurology. 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 07/07/2015 HLD (hyperlipidemia) HTN (hypertension) Iron deficiency anemia due to chronic blood loss 03/06/2015 Kidney stone Lens replaced by other means - Right Eye 12/26/2014 Memory loss Osteoarthrosis, unspecified whether generalized or localized, other specified sites Other vitreous opacities - Both Eyes 07/07/2014 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 S/P laser cataract surgery - Right Eye 12/26/2014 S/P LASIK surgery of both eyes - Both Eyes 07/07/2014 Tear film insufficiency, unspecified 12/11/2014 Unspecified constipation PAST SURGICAL HISTORY Procedure Laterality Date APPENDECTOMY 1994 ARTHRP INTERPOS INTERCARPAL/METACARPAL JOINTS Right 10/07/2016 Right thumb CMC arthroplasty ; THYROIDECTOMY TOTAL OR COMPLETE 02/08/2012 COLONOSCOPY FLX DX W/COLLJ SPEC WHEN PFRMD 08/03/2005 Colonoscopy COLONOSCOPY GEN ANES 08/26/2020 Repeat in 5-10 years COLONOSCOPY W/BIOPSY SINGLE/MULTIPLE 06/19/2015 normal colon CORRJ HLX VLGS BNCTY SESMDC W/DOUBLE OSTEOTOMY 2004 RIGHT FOOT DILATION & CURETTAGE DX&/THER NONOBSTETRIC 1979 AFTER MISCARRAGE EGD 08/26/2020 EGD TRANSORAL BIOPSY SINGLE/MULTIPLE 06/19/2015 gastritis ESOPHAGOGASTRODUODENOSCOPY TRANSORAL DIAGNOSTIC 08/03/2005 EGD PAST SURGICAL HISTORY OF 1975 RECTAL WALL REPAIR PAST SURGICAL HISTORY OF 2002 Lasik Surgery on both eyes ([place]) PAST SURGICAL HISTORY OF 2010 broken neck PAST SURGICAL HISTORY OF 08/2015 Bare metal stent/ graft of heart x 1 PRQ CARDIAC STENT W/ANGIO 1 VSL 09/01/2015 Mid Lad TONSILLECTOMY PRIMARY/SECONDARY <AGE 11 TOTAL ABDOMINAL HYSTERECT W/WO RMVL TUBE OVARY 1994 Hysterectomy, TAHBSO XCAPSL CTRC RMVL INSJ IO LENS PROSTH W/O ECP 12/25/2014 Cataract Extraction with Femtosecond Laser (LenSx)-right eye ALLERGIES Contrast Dye [Iodine], Albuterol, Amoxil [Amoxicillin], Clindamycin, Codeine, DiatrizoateMeglumine, Dyazide [Triamterene-Hydrochlorothiazid], Erythromycin, Flexeril [Cyclobenzaprine], Oxycodone, Oxycontin [Oxycodone Hcl], Tessalon Perles [Benzonatate], Tetanus Vaccines And Toxoid, and Vicodin [Hydrocodone-Acetaminophen] MEDICATIONS Current Outpatient Medications Medication Sig traZODone (DESYREL) 50 mg tablet Take 2 tablets by mouth daily at bedtime. donepezil (ARICEPT) 10 mg tablet Take 1 tablet by mouth daily at bedtime. levothyroxine (LEVOXYL) 100 mcg tablet Take 1 tablet by mouth once daily. Take on empty stomach. For Thyroid. lisinopril (ZESTRIL) 20 mg tablet Take 1 tablet by mouth once daily. atorvastatin (LIPITOR) 40 mg tablet AT BEDTIME carvedilol (COREG) 6.25 mg tablet Take 6.25 mg by mouth two times a day with meals. Cholecalciferol, Vitamin D3, 50 mcg (2,000 unit) cap DAILY aspirin, enteric coated (ASPIRIN, ENTERIC COATED) 81 mg EC tablet Take 1 tablet by mouth once daily. COMPOUNDED PRESCRIPTION Home blood pressure monitor. DX: Essential HTN I10 CENTRUM SILVER ORAL TAB Take one(1) tablet daily. No current facility-administered medications for this visit. FAMILY HISTORY Problem Relation Age of Onset Alzheimer's Disease Mother Heart Mother Heart Father 83 years old Hypertension Father Stroke Father Cataract Father other (parkinson's) Father Colon Cancer Maternal Aunt Diabetes Maternal Grandmother Diabetes Maternal Aunt other (ibs) Brother Heart Sister other (knee replacements) Sister other (cataract surgery) Sister Heart Sister Social History Tobacco Use Smoking status: Never Smokeless tobacco: Never Vaping Use Vaping status: Never Used Substance Use Topics Alcohol use: Yes Comment: special occasions Drug use: No Comment: coffee REVIEW OF SYSTEMS GENERAL: No weight loss, malaise or fevers/chills HEENT: Negative for frequent or significant headaches, No changes in hearing or vision. NECK: Negative for lumps, goiter, pain and significant neck swelling RESPIRATORY: Negative for cough, hemoptysis, wheezing, dyspnea or shortness of breath CARDIOVASCULAR: Negative for chest pain, leg swelling, orthopnea, or palpitations GI: No nausea, vomiting, or diarrhea/constipation. No hematochezia/melena. No heartburn or reflux symptoms. : No history of dysuria, frequency or incontinence MUSCULOSKELETAL: + Foot Pain SKIN: Negative for lesions, rash, and itching ENDOCRINE: Negative for cold or heat intolerance, polyuria, polydipsia and goiter NEURO: No history of headaches, syncope, paralysis, seizures or tremors MOOD: Negative for depression, anxiety, or suicidal ideation. EXAM: BP 140/84 Pulse 69 Resp 16 Wt 55.5 kg (122 lb 5.7 oz) SpO2 100% BMI 22.02 kg/m PHYSICAL EXAM: General Appearance: Well appearing, alert, in no acute distress, well-hydrated, well nourished. Skin: Skin color, texture, turgor normal, no suspicious rashes or lesions. Head: Normocephalic, no masses, lesions, tenderness or abnormalities. Eyes: Anicteric sclera. Extraocular movements are intact. Extremities: No deformities, edema, skin discoloration, clubbing or cyanosis. Good capillary refill. Musculoskeletal: Decreased ROM of the right foot and ankle, tenderness noted on the ankle/top of the foot, decreased muscle strength, good pedal pulses. No edema. Peripheral Pulses: Normal, Capillary refill <2secs, strong peripheral pulses, Pulses palpable. Neurologic: Gait normal. Sensation grossly intact. ASSESSMENT/PLAN: 1. Foot pain, right - ICD9: 729.5, ICD10: M79.671 (primary diagnosis) - Get xray completed - Continue supportive care at home. - Rest, ice compression, and elevate. - May use Tylenol as needed for pain. - Recommend consult with podiatry - CONSULT TO PODIATRY - XR FOOT GENERAL 3V AP/LAT/OBL RIGHT 2. Weakness of foot, right - ICD9: 734, ICD10: R29.898 - Same plan as #1. - Weakness may be due to chronic lacunar infarct Follow-up pending test results or sooner as needed. Discussed treatment plan and patient voices understanding. Patient's questions answered appropriately. Medications and potential side effects were discussed and patient voices understanding. Emelia Lynn APRN.FREDY This note was partially generated using [employer] voice recognition system. Note was reviewed for accuracy. There may be minor misspellings or grammar miscues with [employer] voice recognition. documented in this encounterS[facility]01-[facility]25 NoteHNO ID: [id number] Author: EMELIA LYNN APRN.CNP Service: ? Author Type: Nurse Practitioner Type: Progress Notes Filed: 09/19/2024 15:23 Note Text: This is a 78 year old female who presents today with: Patient presents with: Acute Visit: right foot swelling - injury tripped up the stairs HISTORY OF PRESENT ILLNESS: Bharti Akbar is a 78 year old female. Patient presents with: Acute Visit: right foot swelling - injury tripped up the stairs Here in the office for right foot and ankle pain. Started about 2 months ago, tripped going into the house. Refers that pain and swelling is getting worse. Taking Tylenol and applying ice as needed. Has noticed numbness and tingling in the foot that seems to wax and wane. History of intracranial vascular stenosis, chronic lacunar infarct on MRI brain. Following With neurology. 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 07/07/2015 HLD (hyperlipidemia) HTN (hypertension) Iron deficiency anemia due to chronic blood loss 03/06/2015 Kidney stone Lens replaced by other means - Right Eye 12/26/2014 Memory loss Osteoarthrosis, unspecified whether generalized or localized, other specified sites Other vitreous opacities - Both Eyes 07/07/2014 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 S/P laser cataract surgery - Right Eye 12/26/2014 S/P LASIK surgery of both eyes - Both Eyes 07/07/2014 Tear film insufficiency, unspecified 12/11/2014 Unspecified constipation PAST SURGICAL HISTORY Procedure Laterality Date APPENDECTOMY 1994 ARTHRP INTERPOS INTERCARPAL/METACARPAL JOINTS Right 10/07/2016 Right thumb CMC arthroplasty ; THYROIDECTOMY TOTAL OR COMPLETE 02/08/2012 COLONOSCOPY FLX DX W/COLLJ SPEC WHEN PFRMD 08/03/2005 Colonoscopy COLONOSCOPY GEN ANES 08/26/2020 Repeat in 5-10 years COLONOSCOPY W/BIOPSY SINGLE/MULTIPLE 06/19/2015 normal colon CORRJ HLX VLGS BNCTY SESMDC W/DOUBLE OSTEOTOMY 2004 RIGHT FOOT DILATION AND CURETTAGE DXAND/THER NONOBSTETRIC 1979 AFTER MISCARRAGE EGD 08/26/2020 EGD TRANSORAL BIOPSY SINGLE/MULTIPLE 06/19/2015 gastritis ESOPHAGOGASTRODUODENOSCOPY TRANSORAL DIAGNOSTIC 08/03/2005 EGD PAST SURGICAL HISTORY OF 1975 RECTAL WALL REPAIR PAST SURGICAL HISTORY OF 2002 Lasik Surgery on both eyes ([place]) PAST SURGICAL HISTORY OF 2010 broken neck PAST SURGICAL HISTORY OF 08/2015 Bare metal stent/ graft of heart x 1 PRQ CARDIAC STENT W/ANGIO 1 VSL 09/01/2015 Mid Lad TONSILLECTOMY PRIMARY/SECONDARY TOTAL ABDOMINAL HYSTERECT W/WO RMVL TUBE OVARY 1994 Hysterectomy, TAHBSO XCAPSL CTRC RMVL INSJ IO LENS PROSTH W/O ECP 12/25/2014 Cataract Extraction with Femtosecond Laser (LenSx)-right eye ALLERGIES Contrast Dye [Iodine], Albuterol, Amoxil [Amoxicillin], Clindamycin, Codeine, Diatrizoate Meglumine, Dyazide [Triamterene-Hydrochlorothiazid], Erythromycin, Flexeril [Cyclobenzaprine], Oxycodone, Oxycontin [Oxycodone Hcl], Tessalon Perles [Benzonatate], Tetanus Vaccines And Toxoid, and Vicodin [Hydrocodone-Acetaminophen] MEDICATIONS Current Outpatient Medications Medication Sig traZODone (DESYREL) 50 mg tablet Take 2 tablets by mouth daily at bedtime. donepezil (ARICEPT) 10 mg tablet Take 1 tablet by mouth daily at bedtime. levothyroxine (LEVOXYL) 100 mcg tablet Take 1 tablet by mouth once daily. Take on empty stomach. For Thyroid. lisinopril (ZESTRIL) 20 mg tablet Take 1 tablet by mouth once daily. atorvastatin (LIPITOR) 40 mg tablet AT BEDTIME carvedilol (COREG) 6.25 mg tablet Take 6.25 mg by mouth two times a day with meals. Cholecalciferol, Vitamin D3, 50 mcg (2,000 unit) cap DAILY aspirin, enteric coated (ASPIRIN, ENTERIC COATED) 81 mg EC tablet Take 1 tablet by mouth once daily. COMPOUNDED PRESCRIPTION Home blood pressure monitor. DX: Essential HTN I10 CENTRUM SILVER ORAL TAB Take one(1) tablet daily. No current facility-administered medications for this visit. FAMILY HISTORY Problem Relation Age of Onset Alzheimer's Disease Mother Heart Mother Heart Father 83 years old Hypertension Father Stroke Father Cataract Father other (parkinson's) Father Colon Cancer Maternal Aunt Diabetes Maternal Grandmother Diabetes Maternal Aunt other (ibs) Brother Heart Sister other (knee replacements) Sister other (cataract surgery) Sister Heart Sister Social History Tobacco Use Smoking status: Never Smokeless tobacco: Never Vaping U (more content not included)...[facility]01-08-2025 Telephone encounter Note* Telephone Encounter - Leslie Landa RN - 09/18/2024 9:04 AM EST Patient calls for right foot injury. Nurse triage completed. Protocol recommends see provider within 3 days. Patient requests an afternoon appointment. Scheduled per request. Care advice reviewed. Patient verbalizes understanding. Reason for Disposition Foot injury is main concern [1] After 2 weeks AND [2] still painful or swollen Answer Assessment - Initial Assessment Questions 1. MECHANISM: Patient reports that she tripped coming in doors 2 months ago and has had trouble with her right foot since. She reports swelling and redness to the entire right foot that has been on-going since injury but it seems to be getting worse instead of better. 2. ONSET: two months ago 3. LOCATION: Right ankle 4. APPEARANCE of INJURY: Swollen and red. No warmth or fever. 5. WEIGHT-BEARING:Patient is able to bear weight and walk. 6. SIZE: the foot 7. PAIN: - MILD (1-3): Doesn't interfere with normal activities. 8. TETANUS: NA 9. OTHER SYMPTOMS:Patient also discusses bilateral shoulder pain--chronic unrelated to injury. Answer Assessment - Initial Assessment Questions 1. MECHANISM: Patient reports that she tripped coming in doors 2 months ago and has had trouble with her right foot since. She reports swelling and redness to the entire right foot that has been on-going since injury but it seems to be getting worse instead of better. 2. ONSET: two months ago 3. LOCATION: Right ankle 4. APPEARANCE of INJURY: Swollen and red. No warmth or fever. 5. WEIGHT-BEARING:Patient is able to bear weight and walk. 6. SIZE: the foot 7. PAIN: - MILD (1-3): Doesn't interfere with normal activities. 8. TETANUS: NA 9. OTHER SYMPTOMS:Patient also discusses bilateral shoulder pain--chronic unrelated to injury. Protocols used: Ankle Eymzft-UOAPM-XD, Foot Bxghyd-TAQXP-EI [facility]01-08-2025 Miscellaneous Notes* Telephone Encounter - Leslie Landa RN - 09/18/2024 9:04 AM EST Patient calls for right foot injury. Nurse triage completed. Protocol recommends see provider within 3 days. Patient requests an afternoon appointment. Scheduled per request. Care advice reviewed. Patient verbalizes understanding. Reason for Disposition Foot injury is main concern [1] After 2 weeks AND [2] still painful or swollen Answer Assessment - Initial Assessment Questions 1. MECHANISM: Patient reports that she tripped coming in doors 2 months ago and has had trouble with her right foot since. She reports swelling and redness to the entire right foot that has been on-going since injury but it seems to be getting worse instead of better. 2. ONSET: two months ago 3. LOCATION: Right ankle 4. APPEARANCE of INJURY: Swollen and red. No warmth or fever. 5. WEIGHT-BEARING:Patient is able to bear weight and walk. 6. SIZE: the foot 7. PAIN: - MILD (1-3): Doesn't interfere with normal activities. 8. TETANUS: NA 9. OTHER SYMPTOMS:Patient also discusses bilateral shoulder pain--chronic unrelated to injury. Answer Assessment - Initial Assessment Questions 1. MECHANISM: Patient reports that she tripped coming in doors 2 months ago and has had trouble with her right foot since. She reports swelling and redness to the entire right foot that has been on-going since injury but it seems to be getting worse instead of better. 2. ONSET: two months ago 3. LOCATION: Right ankle 4. APPEARANCE of INJURY: Swollen and red. No warmth or fever. 5. WEIGHT-BEARING:Patient is able to bear weight and walk. 6. SIZE: the foot 7. PAIN: - MILD (1-3): Doesn't interfere with normal activities. 8. TETANUS: NA 9. OTHER SYMPTOMS:Patient also discusses bilateral shoulder pain--chronic unrelated to injury. Protocols used: Ankle Xbjseb-TRSZR-RD, Foot Hmgztl-MXPEY-JA [facility] encounter Note * Telephone Encounter - Armando Orozco MD - 09/12/2024 4:54 PM EST OK for trazodone as ordered Armando Orozco MD [facility]01-02-2025 Miscellaneous Notes* Telephone Encounter - Armando Orozco MD - 09/12/2024 4:54 PM EST OK for trazodone as ordered Armando Orozco MD * Telephone Encounter - Sanaz Smith MA - 09/12/2024 4:26 PM EST Call to pt and notified her of PCP's message below. Pt reports she does have some left over of Trazodone 50 mg, taking 2 tabs at bedtime. Asking for a new Rx to be sent to [facility]. Rx pended. Sanaz Smith MA * Telephone Encounter - Armando Orozco MD - 09/12/2024 3:55 PM EST She could go back to the trazodone if she feels that works better for her. Armando Orozco MD * Telephone Encounter - Leslie Landa RN - 09/12/2024 3:12 PM EST Patient calls to ask about an alternative for amitriptyline d/t feels it is causing her to be irritable/restless/not sleeping. Nurse triage recommends contact provider within 24 hours. Patient will continue amitriptyline until hears back from provider. Reason for Disposition [1] Caller has NON-URGENT medicine question about med that PCP prescribed AND [2] triager unable toanswer question Answer Assessment - Initial Assessment Questions 1. NAME of MEDICINE: Amitriptyline 2. QUESTION: Patient calls to let provider know of side effects and asking for next steps. 3. PRESCRIBER: Dr. Orozco 4. SYMPTOMS: Patient reports restless/irritable/not sleeping at night. Patient reports that symptoms started in May when she started medication and have been worsening since. Patient reports with the amitriptyline she is waking up around 3 am every day and not falling back to sleep for several hours. She reports that a few weeks ago she ran out of medication and had to utilize the trazodoneand was able to sleep through the night. Protocols used: Medication Question Tals-BQCIP-JD [facility] Telephone encounter Note * Telephone Encounter - Sanaz Smith MA - 09/12/2024 4:26 PM EST Call to pt and notified her of PCP's message below. Pt reports she does have some left over of Trazodone 50 mg, taking 2 tabs at bedtime. Asking for a new Rx to be sent to [facility]. Rx pended. Sanaz Smith MA [facility]01-02-2025 Telephone encounter Note* Telephone Encounter - Armando Orozco MD - 09/12/2024 3:55 PM EST She could go back to the trazodone if she feels that works better for her. Armando Orozco MD [facility]01-02-2025 Telephone encounter Note* Telephone Encounter - Leslie Landa RN - 09/12/2024 3:12 PM EST Patient calls to ask about an alternative for amitriptyline d/t feels it is causing her to be irritable/restless/not sleeping. Nurse triage recommends contact provider within 24 hours. Patient will continue amitriptyline until hears back from provider. Reason for Disposition [1] Caller has NON-URGENT medicine question about med that PCP prescribed AND [2] triager unable toanswer question Answer Assessment - Initial Assessment Questions 1. NAME of MEDICINE: Amitriptyline 2. QUESTION: Patient calls to let provider know of side effects and asking for next steps. 3. PRESCRIBER: Dr. Orozco 4. SYMPTOMS: Patient reports restless/irritable/not sleeping at night. Patient reports that symptoms started in May when she started medication and have been worsening since. Patient reports with the amitriptyline she is waking up around 3 am every day and not falling back to sleep for several hours. She reports that a few weeks ago she ran out of medication and had to utilize the trazodoneand was able to sleep through the night. Protocols used: Medication Question [id number] [facility]12-20-2024 Evaluation note* Diagnosis Onset Date Resolution Status Admit Date Bilateral carotid artery stenosis chronic August 30, 024 11:26am Aortic stenosis acute September 112024 11:22am CAD (coronary artery disease) chroni c September 25, 2024 11:22am Carotid artery disease chronic [facility] 2024 11:22am Dyslipidemia chronic September 11:22am Essential hypertension chronic [facility] 2024 11:22am CVA (cerebral vascular accident) ruled-out September 25 11:22am [facility] Work Phone: [phone] Telephone encounter Note* Telephone Encounter - Breann Taylor OCCA - 08/15/2024 3:07 PM EST Per provider, TC to patient to again verify wanting to stay with [facility] for care. Patient statesyes, she is staying with [facility]. Scheduled for follow up with Silva Katz on 11/05/24. JOSELITO Acosta [facility]12-05-2024 Miscellaneous Notes* Telephone Encounter - Breann Taylor OCCA - 08/15/2024 3:07 PM EST Per provider, TC to patient to again verify wanting to stay with [facility] for care. Patient statesyes, she is staying with [facility]. Scheduled for follow up with Silva Katz on 11/05/24. JOSELITO Acosta * Telephone Encounter - Rosalba Carlos RN - 08/14/2024 4:10 PM EST Patient states she has not transferred care to [facility] Neurologist and does not plan to do so. Reports she followed up with [facility] and they could not help her. Patient asking if Dr. Granger's office will manage her Donepezil or if she should ask her PCP, Dr. Orozco, as he ordered it last for her. Patient reports she has 3 pills left. Uses 10 mg. Please call patient back with reply. Thank you. * Telephone Encounter - Veronica Corado LPN - 08/14/2024 9:04 AM EST Called patient, no answer. Left message for pt to call back in regards to message below from Dr. Granger * Telephone Encounter - Vega Granger Jr., MD - 08/13/2024 4:22 PM EST Please see if patient has transferred care to [facility] neurologist. Vega Granger MD * Telephone Encounter - Shantal Najera LPN - 08/13/2024 10:30 AM EST The patient has been identified by name and date of : Yes Caregiver verified no other encounters exist for this prescription request: Yes Caregiver confirmed with patient/requestor that no other refills are due, in the near future, with this provider at this time: Yes The last office visit in the department: 01/12/2024 Does the patient have a future office visit with this provider/department: No no future appt scheduled Requested Prescriptions Pending Prescriptions Disp Refills donepezil (ARICEPT) 10 mg tablet 90 tablet 0 Sig: Take 1 tablet by mouth daily at bedtime. Patient said rx is helping Shantal Najera LPN August 13, 2024 10:30 AM [facility]12[facility] Telephone encounter Note * Telephone Encounter - Rosalba Carlos RN - 08/14/2024 4:10 PM EST Patient states she has not transferred care to [facility] Neurologist and does not plan to do so. Reports she followed up with [facility] Neuro and they could not help her. Patient asking if Dr. Granger's office will manage her Donepezil or if she should ask her PCP, Dr. Orozco, as he ordered it last for her. Patient reports she has 3 pills left. Uses 10 mg. Please call patient back with reply. Thank you. [facility]12-04-2024 Telephone encounter Note* Telephone Encounter - Veronica Corado LPN - 08/14/2024 9:04 AM EST Called patient, no answer. Left message for pt to call back in regards to message below from Dr. Granger [facility]12-03-2024 Telephone encounter Note* Telephone Encounter - Vega Granger Jr., MD - 08/13/2024 4:22 PM EST Please see if patient has transferred care to [facility] neurologist. Vega Granger MD [facility]12-03-2024 Telephone encounter Note* Telephone Encounter - Shantal Najera LPN - 08/13/2024 10:30 AM EST The patient has been identified by name and date of : Yes Caregiver verified no other encounters exist for this prescription request: Yes Caregiver confirmed with patient/requestor that no other refills are due, in the near future, with this provider at this time: Yes The last office visit in the department: 01/12/2024 Does the patient have a future office visit with this provider/department: No no future appt scheduled Requested Prescriptions Pending Prescriptions Disp Refills donepezil (ARICEPT) 10 mg tablet 90 tablet 0 Sig: Take 1 tablet by mouth daily at bedtime. Patient said rx is helping Shantal Najera LPN August 13, 2024 10:30 AM [facility]10-21-2024 Telephone encounter Note* Telephone Encounter - Kushal Weldon APRN.CNP - 07/01/2024 10:45 AM EDT Appears like 3 months ago in March her TSH was 3, documented that she was taking levothyroxine 100 mcg daily. The following approved medication requests have been transmitted electronically. Requested Prescriptions Signed Prescriptions Disp Refills levothyroxine (LEVOXYL) 100 mcg tablet 90 tablet 1 Sig: Take 1 tablet by mouth once daily. Take on empty stomach. For Thyroid. Authorizing Provider: KUSHAL WELDON APRN.CNP [facility]10-21-2024 Miscellaneous Notes* Telephone Encounter - Kushal Weldon APRN.CNP - 07/01/2024 10:45 AM EDT Appears like 3 months ago in March her TSH was 3, documented that she was taking levothyroxine 100 mcg daily. The following approved medication requests have been transmitted electronically. Requested Prescriptions Signed Prescriptions Disp Refills levothyroxine (LEVOXYL) 100 mcg tablet 90 tablet 1 Sig: Take 1 tablet by mouth once daily. Take on empty stomach. For Thyroid. Authorizing Provider: KUSHAL WELDON APRN.CNP * Telephone Encounter - Rosalba Carlos RN - 07/01/2024 9:49 AM EDT Patient calling for refill of thyroid medication. Patient requesting the 100 mcg dose despite note in pt record indicating that she takes 88 mcg daily. No call back needed to pt if able to fill the 100 mcg. Thank you. The patient has been identified by name and date of : Yes Caregiver verified no other encounters exist for this prescription request: Yes Caregiver confirmed with patient/requestor that no other refills are due, in the near future, with this provider at this time: Yes The last office visit in the department: 06/10/2024 Does the patient have a future office visit with this provider/department: Yes 12/10/2024 Requested Prescriptions Pending Prescriptions Disp Refills levothyroxine (LEVOXYL) 100 mcg tablet 90 tablet 1 Sig: Take 1 tablet by mouth once daily. Take on empty stomach. For Thyroid. Rosalba Carlos RN documented in [facility]10-[facility]-2024 Telephone encounter Note * Telephone Encounter - Rosalba Carlos RN - 07/01/2024 9:49 AM EDT Patient calling for refill of thyroid medication. Patient requesting the 100 mcg dose despite note in pt record indicating that she takes 88 mcg daily. No call back needed to pt if able to fill the 100 mcg. Thank you. The patient has been identified by name and date of : Yes Caregiver verified no other encounters exist for this prescription request: Yes Caregiver confirmed with patient/requestor that no other refills are due, in the near future, with this provider at this time: Yes The last office visit in the department: 06/10/2024 Does the patient have a future office visit with this provider/department: Yes 12/10/2024 Requested Prescriptions Pending Prescriptions Disp Refills levothyroxine (LEVOXYL) 100 mcg tablet 90 tablet 1 Sig: Take 1 tablet by mouth once daily. Take on empty stomach. For Thyroid. Rosalba Carlos RN [facility]09-30-2024 Instructions* Patient Instructions* Sanaz Smith MA - 06/10/2024 7:48 PM EDT Stop taking Trazodone 50 mg 2 tabs at bedtime. We are going to switch to Amitriptyline to help withsleep and fibromyalgia pain. Call office or mychart office if symptoms are not improving. documented in this encounterS[facility]09-30-[facility] History of Present illness Narrative* Armando Orozoc MD - 06/10/2024 7:20 PM EDT Images from the original note were not included. Bharti Akbar is a 78 year old female here for a Medicare wellness visit. HM - Anxiety screening completed. Has Adv Dir/Living Will. Declines wanting any further Covid vaccines. Declines Flu vaccine and RSV vaccine at this time. Medicare Health Risk Assessment General Health Fair Exercise: Minutes/Day 90 min Exercise: Days/Week 5 days Alcohol: Daily Use Patient declined Alcohol: Drinks/Day Patient declined Alcohol: 6 or more drinks Patient declined Feel off balance Yes Concerns: Teeth/Dentures Yes (worried about her gums being irritated. Teeth overall okay) Concerns: Sexual function No Troubled by feelings None of the above Frequency: Eating healthy diet Nearly every day ADLs requiring help None of the above ( does assist her with somethings, but is able to perform all tasks) Safety precautions in home/vehicle Yes Smoke, vape, chews tobacco No Difficulty hearing Yes, I wear a hearing aid Difficulty seeing Yes Current Providers Specialists: I have reviewed specialist-related care of the patient in the medical record. Current care team: Patient Care Team: Armando Orozco MD as PCP - General (Family Medicine) Dr. Vega Granger - Neurology Dr. Quispe - [facility]/Cardiology. Dr. Tyler Aldrich - ENT Urology - Dr. Alma Lakhani Second opinion from Neuro Dr. Verónica Wallace at [facility]. Follows with [facility]. Follows with Dentist in [place], unable to recall name. Follows with [facility] in [place]. Medical/Family history review Reviewed and updated problem list, medical/surgical/family/social history, medications, and allergies. Opioid use review Opioid Medications (last 90 days) No data to display Anxiety/Depression screening Recommendation: no further intervention at this time, pt does have dx of anxiety/depression on hx list. Was referred to Psych from Neuro through recently. Cognitive screening Cognitive screening reviewed and no min-cog was triggered. Functional Observation Was the patient's Timed Up & Go test unsteady or >= 12 seconds? No, does use a cane to ambulate Advance Care Planning Surrogate decision maker and/or advance care plan documented Measurements BP 126/78 (BP Site: Left Arm, BP Position: Sitting, BP Cuff Size: Regular Adult) Pulse 68 Resp 18 Ht 158.8 cm (5' 2.5) Wt 54.6 kg (120 lb 5.9 oz) BMI 21.67 kg/m Vision Screening: Follows with optometry/ophthalmology ASSESSMENT/PLAN: 1. Encounter for Medicare annual wellness exam - ICD9: V70.0, ICD10: Z00.00 (primary diagnosis) - Counseled on healthy diet and regular exercise - personalized prevention plan provided - Follow up for annual exam in one year Armando Orozco MD Chief Complaint Follow up HPI Bharti Akbar is a 78 year old female who presents here today for a follow up Pt reports she just switched to this Insurance Company and wanted to schedule an appt due to feeling so poorly. Scheduled same day visit. Pt reports that she's been having a bad spell of what she believes is fibromyalgia for the past twoweeks. She is having b/l hip, b/l shoulder, b/l hands and b/l leg pain. Pain is muscular pain but penetrates down to her bones. Pain is a burning type pain. It's causing her to have issues getting upout of the chair, she will occasionally slide out of her chair when trying to get up. Her pain is causing her to not be able to sleep and she can't sit for long periods of times due to her pain. Takes Trazodone 50 mg 2 tabs po once daily for sleep. Has seen Neurology who is unable to find anything wrong with her. She is hoping she can get something to help with her pain and sleep. Pain today rated an 8/10, reports it's constantly at this level. She is taking Tylenol which doesn't seem to help reduce any of her pain. Followed up with Neuro who referred her to Psychiatry to help deal with anxiety disorders. Pt noted this was through a PCP's office. Memory - Follows with Dr. Granger due to hx of dementia and CVA. Takes Aricept 10 mg 0.5 tab daily. Overall about the same. CVA - Hx of CVA. Does report falling frequently, uses a cane to ambulate. Right leg doesn't always cooperate and goes out, causing her to fall. Has previously done PT for this through . Trying to walk for exercise and wants to get into Silver Sneakers. Uro - Follows with Dr. Lakhani for her urinary incontinence. Has been on multiple medications. Her most recent medication Fesoterodine ER 4 mg, seemed to make her memory worse so she d/c the medication. Will discuss with Dr. Lakhani. Patient called office upset regarding the Psychiatry referral placed at her office visit. She does not want to go to [facility] and has found someone local through a PCP office that deals with anxietydisorders. She is requesting a referral to them. She is also upset that her office visit notes did not transfer to her AVS that she was given and she cannot see them. Could someone please reach out to her via phone call to discuss her concerns. Thank you. Past medical history, appointments, medications, allergies reviewed. 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 07/07/2015 HLD (hyperlipidemia) HTN (hypertension) Iron deficiency anemia due to chronic blood loss 03/06/2015 Kidney stone Lens replaced by other means - Right Eye 12/26/2014 Memory loss Osteoarthrosis, unspecified whether generalized or localized, other specified sites Other vitreous opacities - Both Eyes 07/07/2014 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 S/P laser cataract surgery - Right Eye 12/26/2014 S/P LASIK surgery of both eyes - Both Eyes 07/07/2014 Tear film insufficiency, unspecified 12/11/2014 Unspecified constipation Previous Surgical History PAST SURGICAL HISTORY Procedure Laterality Date APPENDECTOMY 1994 ARTHRP INTERPOS INTERCARPAL/METACARPAL JOINTS Right 10/07/2016 Right thumb CMC arthroplasty ; THYROIDECTOMY TOTAL OR COMPLETE 02/08/2012 COLONOSCOPY FLX DX W/COLLJ SPEC WHEN PFRMD 08/03/2005 Colonoscopy COLONOSCOPY GEN ANES 08/26/2020 Repeat in 5-10 years COLONOSCOPY W/BIOPSY SINGLE/MULTIPLE 06/19/2015 normal colon CORRJ HLX VLGS BNCTY SESMDC W/DOUBLE OSTEOTOMY 2004 RIGHT FOOT DILATION & CURETTAGE DX&/THER NONOBSTETRIC 1979 AFTER MISCARRAGE EGD 08/26/2020 EGD TRANSORAL BIOPSY SINGLE/MULTIPLE 06/19/2015 gastritis ESOPHAGOGASTRODUODENOSCOPY TRANSORAL DIAGNOSTIC 08/03/2005 EGD PAST SURGICAL HISTORY OF 1975 RECTAL WALL REPAIR PAST SURGICAL HISTORY OF 2002 Lasik Surgery on both eyes ([place]) PAST SURGICAL HISTORY OF 2010 broken neck PAST SURGICAL HISTORY OF 08/2015 Bare metal stent/ graft of heart x 1 PRQ CARDIAC STENT W/ANGIO 1 VSL 09/01/2015 Mid Lad TONSILLECTOMY PRIMARY/SECONDARY <AGE 12 TOTAL ABDOMINAL HYSTERECT W/WO RMVL TUBE OVARY 1994 Hysterectomy, TAHBSO XCAPSL CTRC RMVL INSJ IO LENS PROSTH W/O ECP 12/25/2014 Cataract Extraction with Femtosecond Laser (LenSx)-right eye Family History FAMILY HISTORY Problem Relation Age of Onset Alzheimer's Disease Mother Heart Mother Heart Father 83 years old Hypertension Father Stroke Father Cataract Father other (parkinson's) Father Colon Cancer Maternal Aunt Diabetes Maternal Grandmother Diabetes Maternal Aunt other (ibs) Brother Heart Sister other (knee replacements) Sister other (cataract surgery) Sister Heart Sister Patient Allergies ALLERGIES Allergen Reactions Contrast Dye [Iodin* Itching Pt felt like she was going to or have a seizure, per pt Albuterol Intolerance Amoxil [Amoxicillin] Other: See Comments Thick tongue Clindamycin Swelling Codeine Vomiting Diatrizoate Meglumi* Itching Dyazide [Triamteren* Intolerance incontinence urine Erythromycin GI Upset Flexeril [Cyclobenz* Mental Status Change Oxycodone Vomiting Oxycontin [Oxycodon* GI Upset, Vomiting Tessalon Perles [Be* GI Upset Tetanus Vaccines An* Vicodin [Hydrocodon* Intolerance Twitching, shaky Current Medications Current Outpatient Medications on File Prior to Visit Medication Sig donepezil (ARICEPT) 10 mg tablet Take 1 tablet by mouth daily at bedtime. levothyroxine (LEVOXYL) 100 mcg tablet Take 1 tablet by mouth once daily. Take on empty stomach. For Thyroid. lisinopril (ZESTRIL) 20 mg tablet Take 1 tablet by mouth once daily. amLODIPine (NORVASC) 2.5 mg tablet DAILY atorvastatin (LIPITOR) 40 mg tablet AT BEDTIME carvedilol (COREG) 6.25 mg tablet Cholecalciferol, Vitamin D3, 50 mcg (2,000 unit) cap DAILY oxybutynin XL (DITROPAN XL) 5 mg 24 hr tablet Take 1 tablet by mouth once daily. tamsulosin (FLOMAX) 0.4 mg Take 1 capsule by mouth daily at bedtime. traZODone (DESYREL) 50 mg tablet Take 2 tablets by mouth daily at bedtime. aspirin, enteric coated (ASPIRIN, ENTERIC COATED) 81 mg EC tablet Take 1 tablet by mouth once daily. COMPOUNDED PRESCRIPTION Home blood pressure monitor. DX: Essential HTN I10 CENTRUM SILVER ORAL TAB Take one(1) tablet daily. No current facility-administered medications on file prior to visit. Social History Social History Tobacco Use Smoking status: Never Smokeless tobacco: Never Vaping Use Vaping status: Never Used Substance Use Topics Alcohol use: Yes Comment: special occasions Drug use: No Comment: coffee EXAM: BP 126/78 (BP Site: Left Arm, BP Position: Sitting, BP Cuff Size: Regular Adult) Pulse 68 Resp 18 Ht 158.8 cm (5' 2.5) Wt 54.6 kg (120 lb 5.9 oz) BMI 21.67 kg/m General Appearance: Well appearing, alert, in no acute distress, well-hydrated, well nourished. Using a cane. Slow and needing assistance onto exam table. Lungs: Lungs clear to auscultation. No wheezing, rhonchi, rales.. Heart: RRR without murmur, gallop, or rubs. No ectopy. Health Maintenance List Anxiety Screening Never done BP Controlled (<130/80) due on 05/01/2020 LDL Cholesterol due on 12/02/2022 Advance Directive Discussion due on 09/11/2023 Influenza Vaccine(1) due on 03/10/2025 RSV Vaccine(1 - 1-dose 75+ series) due on 06/10/2025 Covid-19 Vaccine(3 - season) due on 06/10/2025 Annual PCP Team Chronic Disease Visit due on 06/10/2025 Diabetes Screening due on 03/20/2027 DTaP,Tdap,Td Vaccine(4 - Td or Tdap) due on 12/04/2029 Bone Density Screening Completed Shingrix Vaccine Completed Pneumococcal Vaccine: 65+ Completed Colorectal Cancer Screening Discontinued Data reviewed Care Everywhere ASSESSMENT/PLAN: 1. Fibromyalgia - ICD9: 729.1, ICD10: M79.7 - Take Amitriptyline 10 hs rather than trazodone - exercise - Unable to use Flexeril due to allergy noted 2. Myalgias - ICD9: 729.1, ICD10: M79.10 - As noted above 3. History of stroke - ICD9: V12.54, ICD10: Z86.73 - Cont f/u with Neuro - Exercise 4. Imbalance - ICD9: 781.2, ICD10: R26.89 - Exercise - Cont f/u with Neuro 5. Dementia without behavioral disturbance, psychotic disturbance, mood disturbance, or anxiety, unspecified dementia severity, unspecified dementia type (HCC) - ICD9: 294.20, ICD10: F03.90 - Continue current medication regimen. - Cont f/u with Neuro - DONEPEZIL 10 MG TABLET 6. Urinary incontinence, unspecified type - ICD9: 788.30, ICD10: R32 - Cont f/u with Urology 7. Encounter for screening examination for other mental health and behavioral disorders - ICD9: V79.8, ICD10: Z13.39 - ANXIETY SCREENING Follow up in 6 months. I agree with the Chief Complaint, ROS, and Past Histories independently gathered by the clinical instructional support technician and the remaining scribed note accurately describes my personal service to the patient. Medical Decision Making: Problems: Moderate: 1+ chronic illnesses with change and 2+ stable chronic illnesses Risk: Moderate: Drug management Medical Decision Making Level: 4 - Moderate Armando Orozco MD The documentation for this note was completed by Sanaz Smith MA acting as scribe for Armando Orozco MD. June 10, 2024 7:56 PM. Sanaz Smith MA documented in this encounterS[facility] NoteHNO ID: [id number] Author: ARMANDO OROZCO MD Service: ? Author Type: Physician Type: Progress Notes Filed: 06/10/2024 20:03 Note Text: Bharti Akbar is a 78 year old female here for a Medicare wellness visit. HM - Anxiety screening completed. Has Adv Dir/Living Will. Declines wanting any further Covid vaccines. Declines Flu vaccine and RSV vaccine at this time. Medicare Health Risk Assessment General Health Fair Exercise: Minutes/Day 90 min Exercise: Days/Week 5 days Alcohol: Daily Use Patient declined Alcohol: Drinks/Day Patient declined Alcohol: 6 or more drinks Patient declined Feel off balance Yes Concerns: Teeth/Dentures Yes (worried about her gums being irritated. Teeth overall okay) Concerns: Sexual function No Troubled by feelings None of the above Frequency: Eating healthy diet Nearly every day ADLs requiring help None of the above ( does assist her with somethings, but is able to perform all tasks) Safety precautions in home/vehicle Yes Smoke, vape, chews tobacco No Difficulty hearing Yes, I wear a hearing aid Difficulty seeing Yes Current Providers Specialists: I have reviewed specialist-related care of the patient in the medical record. Current care team: Patient Care Team: Armando Orozco MD as PCP - General (Family Medicine) Dr. Vega Granger - Neurology Dr. Quispe - [facility]/Cardiology. Dr. Tyler Aldrich - ENT Urology - Dr. Alma Lakhani Second opinion from Neuro Dr. Verónica Wallace at [facility]. Follows with [facility]. Follows with Dentist in [place], unable to recall name. Follows with Fadia Lewis in [place]. Medical/Family history review Reviewed and updated problem list, medical/surgical/family/social history, medications, and allergies. Opioid use review Opioid Medications (last 90 days) No data to display Anxiety/Depression screening Recommendation: no further intervention at this time, pt does have dx of anxiety/depression on hx list. Was referred to Psych from Neuro through recently. Cognitive screening Cognitive screening reviewed and no min-cog was triggered. Functional Observation Was the patient's Timed Up AND Go test unsteady or >= 12 seconds? No, does use a cane to ambulate Advance Care Planning Surrogate decision maker and/or advance care plan documented Measurements BP 126/78 (BP Site: Left Arm, BP Position: Sitting, BP Cuff Size: Regular Adult) Pulse 68 Resp 18 Ht 158.8 cm (5' 2.5) Wt 54.6 kg (120 lb 5.9 oz) BMI 21.67 kg/m? Vision Screening: Follows with optometry/ophthalmology ASSESSMENT/PLAN: 1. Encounter for Medicare annual wellness exam - ICD9: V70.0, ICD10: Z00.00 (primary diagnosis) - Counseled on healthy diet and regular exercise - personalized prevention plan provided - Follow up for annual exam in one year Armando Orozco MD Chief Complaint Follow up HPI Bharti Akbar is a 78 year old female who presents here today for a follow up Pt reports she just switched to this Insurance Company and wanted to schedule an appt due to feeling so poorly. Scheduled same day visit. Pt reports that she's been having a bad spell of what she believes is fibromyalgia for the past two weeks. She is having b/l hip, b/l shoulder, b/l hands and b/l leg pain. Pain is muscular pain but penetrates down to her bones. Pain is a burning type pain. It's causing her to have issues getting up out of the chair, she will occasionally slide out of her chair when trying to get up. Her pain is causing her to not be able to sleep and she can't sit for long periods of times due to her pain. Takes Trazodone 50 mg 2 tabs po once daily for sleep. Has seen Neurology who is unable to find anything wrong with her. She is hoping she can get something to help with her pain and sleep. Pain today rated an 8/10, reports it's constantly at this level. She is taking Tylenol which doesn't seem to help reduce any of her pain. Followed up with Neuro who referred her to Psychiatry to help deal with anxiety disorders. Pt noted this was through a PCP's office. Memory - Follows with Dr. Granger due to hx of dementia and CVA. Takes Aricept 10 mg 0.5 tab daily. Overall about the same. CVA - Hx of CVA. Does report falling frequently, uses a cane to ambulate. Right leg doesn't always cooperate and goes out, causing her to fall. Has previously done PT for this through . Trying to walk for exercise and wants to get into Silver Sneakers. Uro - Follows with Dr. Lakhani for her urinary incontinence. Has been on multiple medications. Her most recent medication Fesoterodine ER 4 mg, seemed to make her memory worse so she d/c the medication. Will discuss with Dr. Lakhani. Patient called office upset regarding the Psychiatry referral placed at her office visit. She does not want to go to [facility] and has found someone local through a PCP office that deals with anxiety disorders. S (more content not included)...[facility]08-30-2024 Telephone encounter Note* Telephone Encounter - Shantal Najera LPN - 05/10/2024 12:56 PM EDT The patient has been identified by name and date of : Yes Caregiver verified no other encounters exist for this prescription request: Yes Caregiver confirmed with patient/requestor that no other refills are due, in the near future, with this provider at this time: Yes The last office visit in the department: 01/12/2024 Does the patient have a future office visit with this provider/department: No No future appt scheduled Requested Prescriptions Pending Prescriptions Disp Refills donepezil (ARICEPT) 10 mg tablet 90 tablet 0 Sig: Take 1 tablet by mouth daily at bedtime. Shantal Najera LPN May 10, 2024 12:57 PM [facility]08-30-[facility] Miscellaneous Notes* Telephone Encounter - Shantal Najera LPN - 05/10/2024 12:56 PM EDT The patient has been identified by name and date of : Yes Caregiver verified no other encounters exist for this prescription request: Yes Caregiver confirmed with patient/requestor that no other refills are due, in the near future, with this provider at this time: Yes The last office visit in the department: 01/12/2024 Does the patient have a future office visit with this provider/department: No No future appt scheduled Requested Prescriptions Pending Prescriptions Disp Refills donepezil (ARICEPT) 10 mg tablet 90 tablet 0 Sig: Take 1 tablet by mouth daily at bedtime. Shantal Najera LPN May 10, 2024 12:57 PM documented in this encounterShel[facility]07-29-2024 Telephone encounter Note * Telephone Encounter - Emelia Lynn APRN.CNP - 04/08/2024 8:11 AM EDT Never heard back from Mallorie, letter was completed for patient and will be faxed. Requesting additional time off due to ongoing health concerns. Will have evaluation by neurology at in June. Emelia Lynn APRN.CNP [facility]07-29-2024 Miscellaneous Notes* Telephone Encounter - Emelia Lynn APRN.CNP - 04/08/2024 8:11 AM EDT Never heard back from Mallorie, letter was completed for patient and will be faxed. Requesting additional time off due to ongoing health concerns. Will have evaluation by neurology at in June. Emelia Lynn APRN.CNP * Telephone Encounter - Emelia Lynn APRN.CNP - 04/04/2024 10:26 AM EDT Attempted to call Mallorie back with no answer, LM to call back. Would like more information for what is needed in the letter. Patient has used her full amount of FMLA. Emelia Lynn APRN.CNP * Telephone Encounter - Kisha Martinez RN - 04/04/2024 9:47 AM EDT Patient phoned to report the keycase assembler, Mallorie ([phone]: [phone]) never received the FMLA letter that was suppose to be sent to her on 03-20-24. Patient reports it was suppose to be e-faxed to Mallorie @ fax # [phone]. Patient asking Ayala Kapoor, to please send the FMLA letter (extending her leave past 03-25-24), and send patient a copy. Please phone patient with any questions and an update: [phone] documented in this encounterSheltering [facility] Hospital07-25-2024 Telephone encounter Note * Telephone Encounter - Emelia Lynn APRN.CNP - 04/04/2024 10:26 AM EDT Attempted to call Mallorie back with no answer, LM to call back. Would like more information for what is needed in the letter. Patient has used her full amount of FMLA. Emelia Lynn APRN.FREDY [facility]07-25-2024 Telephone encounter Note* Telephone Encounter - Kisha Martinez RN - 04/04/2024 9:47 AM EDT Patient phoned to report the keycase assembler, Mallorie ([phone] ext: [phone]) never received the FMLA letter that was suppose to be sent to her on 03-20-24. Patient reports it was suppose to be e-faxed to Mallorie @ fax # [phone]. Patient asking Ayala Kapoor, to please send the FMLA letter (extending her leave past 03-25-24), and send patient a copy. Please phone patient with any questions and an update: [phone] [facility]07-[facility] Telephone encounter Note* Telephone Encounter - Kika Costa LPN - 03/22/2024 10:06 AM EDT Spoke with pt and information listed below given. Pt verbalizes understanding. Kika Costa LPN [facility]07-12-2024 Miscellaneous Notes* Telephone Encounter - Kika Costa LPN - 03/22/2024 10:06 AM EDT Spoke with pt and information listed below given. Pt verbalizes understanding. Kika Costa LPN * Telephone Encounter - Tahira Perla MA - 03/22/2024 8:59 AM EDT See both phone encounters. Tahira Perla MA * Telephone Encounter - Emelia Lynn APRN.CNP - 03/22/2024 8:46 AM EDT Can you please call the patient and let her know that her urine culture was normal. No bacterial infection noted. I would recommend that she keep upcoming appointment with urology. Please let me know if she has any additional questions. Thank you. Emelia Lynn APRN.PHARMACOVIGILANCE SAFETY EXPERT documented in this encounterSheltering [facility] Hospital07-12-2024 Telephone encounter Note * Telephone Encounter - Tahira Perla MA - 03/22/2024 9:00 AM EDT See both phone encounters. Tahira Perla MA [facility]07-12-2024 Miscellaneous Notes* Telephone Encounter - Tahira Perla MA - 03/22/2024 9:00 AM EDT See both phone encounters. Tahira Perla MA * Telephone Encounter - Tahira Perla MA - 03/21/2024 4:41 PM EDT Message left for pt to call back for results. Tahira Perla MA * Telephone Encounter - Emelia Lynn APRN.CNP - 03/21/2024 3:57 PM EDT Can you please call the patient and let her know that I reviewed her lab results. Lab work was all relatively normal. Urine culture is still pending at this time. I would still recommend that she keep her upcoming appointment with her urologist. I will be in contact her with her once I review urine culture results. Thank you. Emelia Lynn APRN.FREDY documented in this encounterSheltering [facility] Hospital07-12-2024 Telephone encounter Note * Telephone Encounter - Tahira Perla MA - 03/22/2024 8:59 AM EDT See both phone encounters. Tahira Perla MA [facility]07-12-2024 Telephone encounter Note* Telephone Encounter - Emelia Lynn APRN.CNP - 03/22/2024 8:46 AM EDT Can you please call the patient and let her know that her urine culture was normal. No bacterial infection noted. I would recommend that she keep upcoming appointment with urology. Please let me know if she has any additional questions. Thank you. Emelia Lynn APRN.CNP [facility]07-11-2024 Telephone encounter Note* Telephone Encounter - Tahira Perla MA - 03/21/2024 4:41 PM EDT Message left for pt to call back for results. Tahira Perla MA [facility]07-11-2024 Telephone encounter Note* Telephone Encounter - Emelia Lynn APRN.CNP - 03/21/2024 3:57 PM EDT Can you please call the patient and let her know that I reviewed her lab results. Lab work was all relatively normal. Urine culture is still pending at this time. I would still recommend that she keep her upcoming appointment with her urologist. I will be in contact her with her once I review urine culture results. Thank you. Emelia Lynn APRN.CNP [facility]07-10-2024 Instructions* Patient Instructions* Emelia Lynn APRN.CNP - 03/20/2024 11:14 AM EDT Get labs completed Urine will be sent off for further testing Start Macrobid, take with food, stay well hydrated Keep scheduled appointment with Dr. Lakhani (urologist) Consult placed for [facility]rom[facility] at [facility] if you would like another opinion May consider pain management in the future to help with arthritis pain Follow up pending test results. documented in this encounterSheltering [facility] Hospital07-10-2024 History of Present illness Narrative* Emelia Lynn APRN.CNP - 03/20/2024 10:40 AM EDT This is a 78 year old female who presents today with: Patient presents with: Acute Visit: having parkison symptoms HISTORY OF PRESENT ILLNESS: Bharti Akbar is a 78 year old female. Patient presents with: Acute Visit: having parkison symptoms Here in the office for ongoing pain and dysuria. Ongoing history urinary incontinence. Dysuria has seems to be progressing this past month. Has had bilateral flank pain, is a dull pain. No fever or chills. Follows with urology, Dr. Lakhani, has follow up soon. Neurology at , will be having consult in June, would like a 2nd opinion, concerns for Parkinson's Disease. Diagnosed with dementia, was Following with [facility] neurology, however trying to get a second opinion. Has concerns for Parkinson's disease. Ongoing issues with gait, completing PT. 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 History of cervical and lumbar arthritis.Refers that pain has been causing her difficulty sleeping.Has seen Dr. Herrera in the past, refers that she does not want to have to see another specialist atthis time. 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 07/07/2015 HLD (hyperlipidemia) HTN (hypertension) Iron deficiency anemia due to chronic blood loss 03/06/2015 Kidney stone Lens replaced by other means - Right Eye 12/26/2014 Memory loss Osteoarthrosis, unspecified whether generalized or localized, other specified sites Other vitreous opacities - Both Eyes 07/07/2014 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 S/P laser cataract surgery - Right Eye 12/26/2014 S/P LASIK surgery of both eyes - Both Eyes 07/07/2014 Tear film insufficiency, unspecified 12/11/2014 Unspecified constipation PAST SURGICAL HISTORY Procedure Laterality Date APPENDECTOMY 1994 ARTHRP INTERPOS INTERCARPAL/METACARPAL JOINTS Right 10/07/2016 Right thumb CMC arthroplasty ; THYROIDECTOMY TOTAL OR COMPLETE 02/08/2012 COLONOSCOPY FLX DX W/COLLJ SPEC WHEN PFRMD 08/03/2005 Colonoscopy COLONOSCOPY GEN ANES 08/26/2020 Repeat in 5-10 years COLONOSCOPY W/BIOPSY SINGLE/MULTIPLE 06/19/2015 normal colon CORRJ HLX VLGS BNCTY SESMDC W/DOUBLE OSTEOTOMY 2004 RIGHT FOOT DILATION & CURETTAGE DX&/THER NONOBSTETRIC 1979 AFTER MISCARRAGE EGD 08/26/2020 EGD TRANSORAL BIOPSY SINGLE/MULTIPLE 06/19/2015 gastritis ESOPHAGOGASTRODUODENOSCOPY TRANSORAL DIAGNOSTIC 08/03/2005 EGD PAST SURGICAL HISTORY OF 1975 RECTAL WALL REPAIR PAST SURGICAL HISTORY OF 2002 Lasik Surgery on both eyes ([place]) PAST SURGICAL HISTORY OF 2010 broken neck PAST SURGICAL HISTORY OF 08/2015 Bare metal stent/ graft of heart x 1 PRQ CARDIAC STENT W/ANGIO 1 VSL 09/01/2015 Mid Lad TONSILLECTOMY PRIMARY/SECONDARY <AGE 12 TOTAL ABDOMINAL HYSTERECT W/WO RMVL TUBE OVARY 1994 Hysterectomy, TAHBSO XCAPSL CTRC RMVL INSJ IO LENS PROSTH W/O ECP 12/25/2014 Cataract Extraction with Femtosecond Laser (LenSx)-right eye ALLERGIES Contrast Dye [Iodine], Albuterol, Amoxil [Amoxicillin], Clindamycin, Codeine, DiatrizoateMeglumine, Dyazide [Triamterene-Hydrochlorothiazid], Erythromycin, Flexeril [Cyclobenzaprine], Oxycodone, Oxycontin [Oxycodone Hcl], Tessalon Perles [Benzonatate], Tetanus Vaccines And Toxoid, and Vicodin [Hydrocodone-Acetaminophen] MEDICATIONS Current Outpatient Medications Medication Sig donepezil (ARICEPT) 10 mg tablet Take 1 tablet by mouth daily at bedtime. levothyroxine (LEVOXYL) 100 mcg tablet Take 1 tablet by mouth once daily. Take on empty stomach. For Thyroid. lisinopril (ZESTRIL) 20 mg tablet Take 1 tablet by mouth once daily. amLODIPine (NORVASC) 2.5 mg tablet DAILY meloxicam (MOBIC) 15 mg tablet Take 1 tablet by mouth once daily. With food. atorvastatin (LIPITOR) 40 mg tablet AT BEDTIME carvedilol (COREG) 6.25 mg tablet Cholecalciferol, Vitamin D3, 50 mcg (2,000 unit) cap DAILY oxybutynin XL (DITROPAN XL) 5 mg 24 hr tablet Take 1 tablet by mouth once daily. tamsulosin (FLOMAX) 0.4 mg Take 1 capsule by mouth daily at bedtime. traZODone (DESYREL) 50 mg tablet Take 2 tablets by mouth daily at bedtime. aspirin, enteric coated (ASPIRIN, ENTERIC COATED) 81 mg EC tablet Take 1 tablet by mouth once daily. COMPOUNDED PRESCRIPTION Home blood pressure monitor. DX: Essential HTN I10 CENTRUM SILVER ORAL TAB Take one(1) tablet daily. No current facility-administered medications for this visit. FAMILY HISTORY Problem Relation Age of Onset Alzheimer's Disease Mother Heart Mother Heart Father 83 years old Hypertension Father Stroke Father Cataract Father other (parkinson's) Father Colon Cancer Maternal Aunt Diabetes Maternal Grandmother Diabetes Maternal Aunt other (ibs) Brother Heart Sister other (knee replacements) Sister other (cataract surgery) Sister Heart Sister Social History Tobacco Use Smoking status: Never Smokeless tobacco: Never Vaping Use Vaping Use: Never used Substance Use Topics Alcohol use: Yes Comment: special occasions Drug use: No Comment: coffee REVIEW OF SYSTEMS GENERAL: No weight loss, malaise or fevers/chills HEENT: Negative for frequent or significant headaches, No changes in hearing or vision. NECK: Negative for lumps, goiter, pain and significant neck swelling RESPIRATORY: Negative for cough, hemoptysis, wheezing, dyspnea or shortness of breath CARDIOVASCULAR: Negative for chest pain, leg swelling, orthopnea, or palpitations GI: No nausea, vomiting, or diarrhea/constipation. No hematochezia/melena. No heartburn or reflux symptoms. : + Dysuria MUSCULOSKELETAL: Negative for joint pain or swelling. SKIN: Negative for lesions, rash, and itching ENDOCRINE: Negative for cold or heat intolerance, polyuria, polydipsia and goiter NEURO: No history of headaches, syncope, paralysis, seizures or tremors MOOD: Negative for depression, anxiety, or suicidal ideation. EXAM: BP 150/82 Pulse 78 Resp 16 Wt 53.1 kg (117 lb) SpO2 100% BMI 21.06 kg/m PHYSICAL EXAM: General Appearance: Well appearing, alert, in no acute distress, well-hydrated, well nourished. Skin: Skin color, texture, turgor normal, no suspicious rashes or lesions. Head: Normocephalic, no masses, lesions, tenderness or abnormalities. Eyes: Anicteric sclera. Extraocular movements are intact. Lungs: Lungs clear to auscultation. No wheezing, rhonchi, rales. Heart: RRR without murmur, gallop, or rubs. No ectopy. Abdomen: Abdomen soft. Bowel sounds normal. No masses, organomegaly, + suprapubic tenderness with palpation, bilateral CVA tenderness. Extremities: No deformities, edema, skin discoloration, clubbing or cyanosis. Good capillary refill. Peripheral Pulses: Normal, Capillary refill <2secs, strong peripheral pulses, Pulses palpable. Neurologic: Gait normal. Sensation grossly intact. UA: + blood ASSESSMENT/PLAN: 1. Acute cystitis with hematuria - ICD9: 595.0, ICD10: N30.01 (primary diagnosis) - Start Macrobid - Keep scheduled appointments with urology. - UA DIP, URINE (POC) - URINE CULTURE - NITROFURANTOIN MONOHYDRATE & MACROCRYSTAL 100 MG ORAL CAP 2. Flank pain - ICD9: 789.09, ICD10: R10.9 - COMPREHENSIVE METABOLIC PANEL - COMPLETE BLOOD COUNT AND DIFFERENTIAL 3. Ataxic gait - ICD9: 781.2, ICD10: R26.0 - Patient may consider having a consult with neuromuscular department with [facility], may keep upcoming appointment in June with neurology at for second opinion. - CONSULT TO NEUROLOGY 4. Hypothyroidism, acquired - ICD9: 244.9, ICD10: E03.9 - Instructed patient on importance of taking on an empty stomach either first thing in the morning or at bedtime. - THYROID STIMULATING HORMONE - T4 FREE/FREE THYROXINE 5. Essential hypertension - ICD9: 401.9, ICD10: I10 - Uncontrolled - Recommend home blood pressure monitoring, to bring results to next visit - Encouraged sodium restriction, DASH or Mediterranean diet - Recommend regular aerobic exercise Follow up pending test results or sooner as needed. Discussed treatment plan and patient voices understanding. Patient's questions answered appropriately. Medications and potential side effects were discussed and patient voices understanding. Emelia Lynn APRN.FREDY This note was partially generated using [employer] voice recognition system. Note was reviewed for accuracy. There may be minor misspellings or grammar miscues with [employer] voice recognition. documented in this encounterShel[facility]07-[facility]24 NoteHNO ID: [id number] Author: EMELIA LYNN APRN.CNP Service: ? Author Type: Nurse Practitioner Type: Progress Notes Filed: 03/20/2024 12:19 Note Text: This is a 78 year old female who presents today with: Patient presents with: Acute Visit: having parkison symptoms HISTORY OF PRESENT ILLNESS: Bharti Akbar is a 78 year old female. Patient presents with: Acute Visit: having parkison symptoms Here in the office for ongoing pain and dysuria. Ongoing history urinary incontinence. Dysuria has seems to be progressing this past month. Has had bilateral flank pain, is a dull pain. No fever or chills. Follows with urology, Dr. Lakhani, has follow up soon. Neurology at , will be having consult in June, would like a 2nd opinion, concerns for Parkinson's Disease. Diagnosed with dementia, was Following with [facility] neurology, however trying to get a second opinion. Has concerns for Parkinson's disease. Ongoing issues with gait, completing PT. 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 History of cervical and lumbar arthritis.Refers that pain has been causing her difficulty sleeping. Has seen Dr. Herrera in the past, refers that she does not want to have to see another specialist at this time. 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 07/07/2015 HLD (hyperlipidemia) HTN (hypertension) Iron deficiency anemia due to chronic blood loss 03/06/2015 Kidney stone Lens replaced by other means - Right Eye 12/26/2014 Memory loss Osteoarthrosis, unspecified whether generalized or localized, other specified sites Other vitreous opacities - Both Eyes 07/07/2014 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 S/P laser cataract surgery - Right Eye 12/26/2014 S/P LASIK surgery of both eyes - Both Eyes 07/07/2014 Tear film insufficiency, unspecified 12/11/2014 Unspecified constipation PAST SURGICAL HISTORY Procedure Laterality Date APPENDECTOMY 1994 ARTHRP INTERPOS INTERCARPAL/METACARPAL JOINTS Right 10/07/2016 Right thumb CMC arthroplasty ; THYROIDECTOMY TOTAL OR COMPLETE 02/08/2012 COLONOSCOPY FLX DX W/COLLJ SPEC WHEN PFRMD 08/03/2005 Colonoscopy COLONOSCOPY GEN ANES 08/26/2020 Repeat in 5-10 years COLONOSCOPY W/BIOPSY SINGLE/MULTIPLE 06/19/2015 normal colon CORRJ HLX VLGS BNCTY SESMDC W/DOUBLE OSTEOTOMY 2003 RIGHT FOOT DILATION AND CURETTAGE DXAND/THER NONOBSTETRIC 1979 AFTER MISCARRAGE EGD 08/26/2020 EGD TRANSORAL BIOPSY SINGLE/MULTIPLE 06/19/2015 gastritis ESOPHAGOGASTRODUODENOSCOPY TRANSORAL DIAGNOSTIC 08/03/2005 EGD PAST SURGICAL HISTORY OF 1975 RECTAL WALL REPAIR PAST SURGICAL HISTORY OF 2002 Lasik Surgery on both eyes ([place]) PAST SURGICAL HISTORY OF 2010 broken neck PAST SURGICAL HISTORY OF 08/2015 Bare metal stent/ graft of heart x 1 PRQ CARDIAC STENT W/ANGIO 1 VSL 09/01/2015 Mid Lad TONSILLECTOMY PRIMARY/SECONDARY TOTAL ABDOMINAL HYSTERECT W/WO RMVL TUBE OVARY 1994 Hysterectomy, TAHBSO XCAPSL CTRC RMVL INSJ IO LENS PROSTH W/O ECP 12/25/2014 Cataract Extraction with Femtosecond Laser (LenSx)-right eye ALLERGIES Contrast Dye [Iodine], Albuterol, Amoxil [Amoxicillin], Clindamycin, Codeine, Diatrizoate Meglumine, Dyazide [Triamterene-Hydrochlorothiazid], Erythromycin, Flexeril [Cyclobenzaprine], Oxycodone, Oxycontin [Oxycodone Hcl], Tessalon Perles [Benzonatate], Tetanus Vaccines And Toxoid, and Vicodin [Hydrocodone-Acetaminophen] MEDICATIONS Current Outpatient Medications Medication Sig donepezil (ARICEPT) 10 mg tablet Take 1 tablet by mouth daily at bedtime. levothyroxine (LEVOXYL) 100 mcg tablet Take 1 tablet by mouth once daily. Take on empty stomach. For Thyroid. lisinopril (ZESTRIL) 20 mg tablet Take 1 tablet by mouth once daily. amLODIPine (NORVASC) 2.5 mg tablet DAILY meloxicam (MOBIC) 15 mg tablet Take 1 tablet by mouth once daily. With food. atorvastatin (LIPITOR) 40 mg tablet AT BEDTIME carvedilol (COREG) 6.25 mg tablet Cholecalciferol, Vitamin D3, 50 mcg (2,000 unit) cap DAILY oxybutynin XL (DITROPAN XL) 5 mg 24 hr tablet Take 1 tablet by mouth once daily. tamsulosin (FLOMAX) 0.4 mg Take 1 capsule by mouth daily at bedtime. traZODone (DESYREL) 50 mg tablet Take 2 tablets by mouth daily at bedtime. aspirin, enteric coated (ASPIRIN, ENTERIC COATED) 81 mg EC tablet Take 1 tablet by mouth once daily (more content not included)...[facility] 02-28-2024 Telephone encounter Note* Telephone Encounter - Emelia Lynn APRN.CNP - 02/28/2024 4:29 PM EDT Noted Emelia Lynn APRN.CNP [facility]06-19-[facility] Miscellaneous Notes* Telephone Encounter - Emelia Lynn APRN.CNP - 02/28/2024 4:29 PM EDT Noted Emelia Lynn APRN.CNP * Telephone Encounter - Kika Costa LPN - 02/27/2024 3:15 PM EDT Pt called and wanted you to know she is working on finding a Neurologist for a 2nd opinion. She checked with [facility] and the doctor there is booking out to December 2024. She will get back to you with a name so we can send referral and supporting information. Kika Costa LPN documented in this encounterSheltering [facility] Hospital06-18-2024 Telephone encounter Note * Telephone Encounter - Kika Costa LPN - 02/27/2024 3:15 PM EDT Pt called and wanted you to know she is working on finding a Neurologist for a 2nd opinion. She checked with [facility] and the doctor there is booking out to December 2024. She will get back to you with a name so we can send referral and supporting information. Kika Costa LPN [facility]06-10-2024 Telephone encounter Note* Telephone Encounter - Emelia Lynn APRN.CNP - 02/19/2024 12:38 PM EDT The following approved medication requests have been transmitted electronically. Requested Prescriptions Signed Prescriptions Disp Refills nitrofurantoin monohydrate and macrocrystal (MACROBID) 100 mg capsule 14 capsule 0 Sig: Take 1 capsule by mouth two times a day with meals for 7 days. Authorizing Provider: EMELIA LYNN APRN.CNP [facility]06-10-2024 Miscellaneous Notes* Telephone Encounter - Emelia Lynn APRN.CNP - 02/19/2024 12:38 PM EDT The following approved medication requests have been transmitted electronically. Requested Prescriptions Signed Prescriptions Disp Refills nitrofurantoin monohydrate and macrocrystal (MACROBID) 100 mg capsule 14 capsule 0 Sig: Take 1 capsule by mouth two times a day with meals for 7 days. Authorizing Provider: EMELIA LYNN APRN.CNP * Telephone Encounter - Kim Sena LPN - 02/19/2024 12:33 PM EDT Patient notified of recommendations, verbalizes understanding of instructions. Pt. would like for providers to sent in a UTI antibiotic to [facility] Kim Sena LPN * Telephone Encounter - Emelia Lynn APRN.CNP - 02/19/2024 12:21 PM EDT Can you please call the patient back and see how she is doing? Have symptoms improved? I would likeher to try to increase water intake during the day. If she is still having ongoing urinary symptomsI would be happy to send an antibiotic to cover for UTI. Thank you. Emelia Lynn APRN.CNP * Telephone Encounter - Kim Sena LPN - 02/16/2024 1:28 PM EDT Patient notified of results, verbalizes understanding of instructions. Pt stated Sx have not changed. Kim Sena LPN * Telephone Encounter - Emelia Lynn APRN.CNP - 02/16/2024 12:01 PM EDT Can you please call the patient and let her know that I reviewed her urine culture results. Urine culture came back negative for any infection. Can you please ask how her symptoms are doing? Thank you. Emelia Lynn APRN.CNP documented in this encounterSheltering [facility] Hospital06-10-2024 Telephone encounter Note * Telephone Encounter - Kim Sena LPN - 02/19/2024 12:33 PM EDT Patient notified of recommendations, verbalizes understanding of instructions. Pt. would like for providers to sent in a UTI antibiotic to [facility] Kim Sena LPN [facility]06-10-[facility] Telephone encounter Note* Telephone Encounter - Emelia Lynn APRN.CNP - 02/19/2024 12:21 PM EDT Can you please call the patient back and see how she is doing? Have symptoms improved? I would likeher to try to increase water intake during the day. If she is still having ongoing urinary symptomsI would be happy to send an antibiotic to cover for UTI. Thank you. Emelia Lynn APRN.CNP [facility]06-07-2024 Telephone encounter Note* Telephone Encounter - Kim Sena LPN - 02/16/2024 1:28 PM EDT Patient notified of results, verbalizes understanding of instructions. Pt stated Sx have not changed. Kim Sena LPN [facility]06-07-20[facility] Telephone encounter Note* Telephone Encounter - Emelia Lynn APRN.CNP - 02/16/2024 12:01 PM EDT Can you please call the patient and let her know that I reviewed her urine culture results. Urine culture came back negative for any infection. Can you please ask how her symptoms are doing? Thank you. Emelia Lynn APRN.CNP [facility]06-05-2024 Instructions* Patient Instructions* Emelia Lynn APRN.CNP - 02/14/2024 1:29 PM EDT Urine will be sent out for further testing. Stay well hydrated Contact the office with any worsening urinary symptoms. Monitor blood pressure at home, goal 130/80 or less. Keep scheduled appointments with Neurology Follow up pending test results documented in this encounterSheltering [facility] Hospital06-05-2024 History of Present illness Narrative* Emelia Lynn APRN.CNP - 02/14/2024 1:00 PM EDT This is a 78 year old female who presents today with: Patient presents with: Follow Up: 1 month follow up and Urine SX HISTORY OF PRESENT ILLNESS: Bharti Akbar is a 78 year old female. Patient presents with: Follow Up: 1 month follow up and Urine SX 1 month follow up for medication. Started on Paxil 10 mg daily for anxiety and depression. Only took medication for 2 weeks. Increased sadness and suicidal thoughts. Refers that those thoughts have resolved. Feeling better. Currently on FMLA until March, does not think she will return back to work. Working on finding supplemental insurance. Denies any SI/HI. Has some urinary incontinence. Refers that she will have increase in urine leakage. Has noticed pink on her panty liners. Some abdominal pressure. History of kidney stones. Mild dysuria. No fever or chills. Elevated blood pressure at last office visit. Taking lisinopril 20 mg daily. Checking blood pressure at home, 140's/80. Denies chest pain, palpitations, dizziness, or edema. Follows with [facility]. Added on amlodipine 2.5 mg daily, carvedilol 6.25 mg twice daily? Just completed Holter monitor. Will be having follow-up with cardiology soon. Following with neurology due to memory loss/dementia. Currently on FMLA due to fall and balance concerns. Working FT at [employer]. Will be having endoscopy due dysphagia. Taking Aricept 10 mg daily. 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 07/07/2015 HLD (hyperlipidemia) HTN (hypertension) Iron deficiency anemia due to chronic blood loss 03/06/2015 Kidney stone Lens replaced by other means - Right Eye 12/26/2014 Memory loss Osteoarthrosis, unspecified whether generalized or localized, other specified sites Other vitreous opacities - Both Eyes 07/07/2014 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 S/P laser cataract surgery - Right Eye 12/26/2014 S/P LASIK surgery of both eyes - Both Eyes 07/07/2014 Tear film insufficiency, unspecified 12/11/2014 Unspecified constipation PAST SURGICAL HISTORY Procedure Laterality Date APPENDECTOMY 1994 ARTHRP INTERPOS INTERCARPAL/METACARPAL JOINTS Right 10/07/2016 Right thumb CMC arthroplasty ; THYROIDECTOMY TOTAL OR COMPLETE 02/08/2012 COLONOSCOPY FLX DX W/COLLJ SPEC WHEN PFRMD 08/03/2005 Colonoscopy COLONOSCOPY GEN ANES 08/26/2020 Repeat in 5-10 years COLONOSCOPY W/BIOPSY SINGLE/MULTIPLE 06/19/2015 normal colon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 essentially unremarkable. Her coags were normal. Herchemistry panel was unremarkable. Her hemoglobin A1c was 5.0. Her cholesterol is well-controlled with a total cholesterol 128/HDL 51/LDL 56 and triglycerides 104. She had a recent echocardiogram here in November at which time a bubble studywas done. Her EF was 65% at that time and she had mild aortic stenosis with a negative bubble study. Stroke neurologist from [facility] was consulted and did offer tenecteplase as her NIH was reportedly 5. Initially herblood pressure was elevated and a Cardene drip was started however this dropped her blood pressure to 116 so the Cardene drip was discontinued and she was maintained with as needed medications for blood pressure. Her NIH was quite variable throughout her hospital course. There was some suspicion that her neurological symptoms were introduced by the cocktail given for her headache on presentation.24 hours after her tenecteplase a CT and an MRI were performed. CT was negative for any hemorrhage and MRI was negative for any stroke. She was seen by physical and Occupational Therapy and had no needs at discharge. Neurology reevaluated the patient and is highly suspicious of complicated migrainegiven stroke rule out with negative MRI and no further workup was recommended. She was instructed to follow-up with her outpatient neurologist as previously scheduled and her primary care physician in the next 2 weeks. Patient did complain of some nausea that she has had ongoing for about a month now and she had multiple other somatic complaints. She is very anxious about her home situation and an overall life in general and I suspect she has some somatic issues related to her depression and anxiety. I have asked her to follow-up forthis as well. She was given resources by case management [facility]. She was discharged home in stable condition on 01/06/2024. I did give her a prescription for Zofran 10 tablets and told her if her nausea does not improve she needs to follow-up wi th her primary care physician for as there is no significant abnormalities on her lab work at presentation. Patient states that prior to the hospital stay she was walking with her back bent to the left and needed her friends to rub it to allow her to stand up right. States had worse headache of her life and that is why she went to the ER. When asked about speech changes, patient does not endorse dysarthria or aphasia, but rather confusion such as thinking the year was 2003 instead of 2023. Patient states did not feel good for the first couple days after leaving the hospital but is now feeling better.States poor appetite - down to 114 pounds. Patient states walking is good, and then suddenly throwsherself off balance with patient catching herself immediately. Denies dizziness or vertigo. States if bends over to do something feels unsteady. Pt declines neurocognitive testing scheduled for next week. MOCA Immediate recall: 01/13 Number repeat: 2/2 Sentence repeat: 10/13 Serial 7s: 100-93-? 09/13 Orientation: January 12, 2024, Monday, Radha 02/14 Abstract: 22 Delayed recall: 10/16 Namin/3 (Hippo for Rhino) Cube copy: 0/1 Clock drawin/3 (Incorrect hand placement - puts dots on the clock) Patient reports new medications started. States her is upset about it - note he is not present. Patient provides list: Zofran. She cannot use her phone to tell me others. In PT but only 1 hour each week. Headaches now resolved with no specific treatment. REVIEW OF SYSTEMS GENERAL:No weight loss, malaise or fevers. HEENT:Negative for frequent or significant headaches, No changes in hearing or vision, no nose bleeds or other nasal problems NECK:Negative for lumps, goiter, pain and significant neck swelling RESPIRATORY: Negative for cough, wheezing or shortness of breath. CARDIOVASCULAR: Negative for chest pain, leg swelling or palpitations. GASTROINTESTINAL: Negative for abdominal discomfort, blood in stools or black stools or change in bowel habits GENITOURINARY: No history of dysuria, frequency or incontinence MUSCULOSKELETAL: See HPI. NEUROLOGIC:See HPI. SKIN:Negative for lesions, rash, and itching. PSYCHIATRIC: Negative for sleep disturbance, mood disorder and recent psychosocial stressors. HEMATOLOGIC/LYMPHATIC/IMMUNOLOGIC:Negative for prolonged bleeding, bruising easily or swollen nodes. ENDOCRINE: Negative for cold or heat intolerance, polyuria, polydipsia and goiter. The remainder of the ROS was reviewed and is negative. LAB/IMAGING: Those performed since patient's last visit have been reviewed. WBC (k/uL) Date Value 12/21/2023 5.98 RBC (m/uL) Date Value 12/21/2023 4.87 Hemoglobin (g/dL) Date Value 12/21/2023 14.8 Hematocrit (%) Date Value 12/21/2023 43.7 MCV (fL) Date Value 12/21/2023 89.7 MCH (pg) Date Value 12/21/2023 30.4 MCHC (g/dL) Date Value 12/21/2023 33.9 RDW-CV (%) Date Value 12/21/2023 11.9 Platelet Count (k/uL) Date Value 12/21/2023 279 MPV (fL) Date Value 12/21/2023 9.0 Glucose (mg/dL) Date Value 12/21/2023 62 (L) BUN (mg/dL) Date Value 12/21/2023 17 Creatinine (mg/dL) Date Value 12/21/2023 0.91 Sodium (mmol/L) Date Value 12/21/2023 143 Potassium (mmol/L) Date Value 12/21/2023 3.9 Chloride (mmol/L) Date Value 12/21/2023 103 CO2 (mmol/L) Date Value 12/21/2023 27 Protein, Total (g/dL) Date Value 12/21/2023 6.6 Albumin (g/dL) Date Value 12/21/2023 4.1 Calcium, Total (mg/dL) Date Value 12/21/2023 9.7 Alkaline Phosphatase (U/L) Date Value 12/21/2023 91 Bilirubin, Total (mg/dL) Date Value 12/21/2023 0.4 AST (U/L) Date Value 12/21/2023 29 ALT (U/L) Date Value 12/21/2023 17 ELENI (no units) Date Value 02/23/2017 Negative Rheumatoid Factor (IU/mL) Date Value 12/21/2023 <10 Hep C Antibody IA (no units) Date Value 09/23/2016 Negative MEDICATIONS: levothyroxine (LEVOXYL) 100 mcg tablet Take 1 tablet by mouth once daily. Take on empty stomach. For Thyroid. lisinopril (ZESTRIL) 20 mg tablet Take 1 tablet by mouth once daily. PARoxetine (PAXIL) 10 mg tablet Take 1 tablet by mouth once daily. donepezil (ARICEPT) 5 mg tablet take 1 tablet by mouth once daily at bedtime amLODIPine (NORVASC) 2.5 mg tablet DAILY meloxicam (MOBIC) 15 mg tablet Take 1 tablet by mouth once daily. With food. atorvastatin (LIPITOR) 40 mg tablet AT BEDTIME carvedilol (COREG) 6.25 mg tablet Cholecalciferol, Vitamin D3, 50 mcg (2,000 unit) cap DAILY oxybutynin XL (DITROPAN XL) 5 mg 24 hr tablet Take 1 tablet by mouth once daily. tamsulosin (FLOMAX) 0.4 mg Take 1 capsule by mouth daily at bedtime. traZODone (DESYREL) 50 mg tablet Take 2 tablets by mouth daily at bedtime. aspirin, enteric coated (ASPIRIN, ENTERIC COATED) 81 mg EC tablet Take 1 tablet by mouth once daily. COMPOUNDED PRESCRIPTION Home blood pressure monitor. DX: Essential HTN I10 CENTRUM SILVER ORAL TAB Take one(1) tablet daily. 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 07/07/2015 HLD (hyperlipidemia) HTN (hypertension) Iron deficiency anemia due to chronic blood loss 03/06/2015 Kidney stone Lens replaced by other means - Right Eye 12/26/2014 Memory loss Osteoarthrosis, unspecified whether generalized or localized, other specified sites Other vitreous opacities - Both Eyes 07/07/2014 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 S/P laser cataract surgery - Right Eye 12/26/2014 S/P LASIK surgery of both eyes - Both Eyes 07/07/2014 Tear film insufficiency, unspecified 12/11/2014 Unspecified constipation FAMILY HISTORY Problem Relation Age of Onset Alzheimer's Disease Mother Heart Mother Heart Father 83 years old Hypertension Father Stroke Father Cataract Father other (parkinson's) Father Colon Cancer Maternal Aunt Diabetes Maternal Grandmother Diabetes Maternal Aunt other (ibs) Brother Heart Sister other (knee replacements) Sister other (cataract surgery) Sister Heart Sister SOCIAL HISTORY Social History Tobacco Use Smoking status: Never Smokeless tobacco: Never Vaping Use Vaping Use: Never used Substance Use Topics Alcohol use: Yes Comment: special occasions Drug use: No Comment: coffee PHYSICAL EXAMINATION BP 152/94 Pulse 64 Resp 16 Wt 51.8 kg (114 lb 3.2 oz) SpO2 98% BMI 20.55 kg/m GENERAL EXAM: General appearance: NAD, pressured speech. HEENT: NC/AT, nasal congestion absent, no oral lesions, membranes moist. NECK: No masses, supple. Lungs: CTA bilaterally. CV: RRR nl S1, S2. No carotid bruits. Extr: No cyanosis, clubbing or edema. Skin: Cool to touch. NEUROLOGICAL EXAM: General: Awake, alert, oriented x3 (person,place,time), fluent, no dysarthria; See MOCA above. CN: PERRL, EOMI and without nystagmus, VFF to confrontation, facial sensation and strength are normal and symmetric, hearing is intact, palate and tongue movements are intact and symmetric. SCM and trapezius strength normal. Motor: Normal tone, bulk and strength (5/5) bilaterally (throughout extremities x4). Reflexes: 2/4 and symmetric, plantar stimulation is flexor. No clonus. Coordination: FNF, ROSEANNE (inconsistent deficits that resolve with distraction), HTS intact. No tremors. Sensation: LT, PP, vibration, temperature intact throughout. No evidence of neglect. Gait: Narrow based and stable with normal stride and arm swing. Significant inconstancies with distraction with pt at one point jumping up from chair and demonstrating exercises. Assessment and Plan: ASSESSMENT/PLAN: 1. Dementia without behavioral disturbance, psychotic disturbance, mood disturbance, or anxiety, unspecified dementia severity, unspecified dementia type (HCC) - ICD9: 294.20, ICD10: F03.90 (primary diagnosis) Cognition with minimal improvement on Aricept 5mg daily (subjective history with MOCA essentially unchanged). Unfortunately family again does not present with the patient. At this time, difficult to determine what is true symptoms of cognitive decline suggestive of dementia and what might be behavioral or pseudodementia. That said, hippocampal volumes were in the 5% at time of MRI brain in 08/2023. Will continue to treat as dementia and increase Aricept to 10mg daily. Note, pt reports no longertaking Paxil. Advised pt that she should not be driving. Encouraged brain exercises. Advised pt that she should present next visit with family members. 2. Lacunar infarction (HCC) - ICD9: 434.91, ICD10: I63.81 3. Intracranial vascular stenosis - ICD9: 437.9, ICD10: I67.9 Patient just underwent in hospital stroke workup after receiving TNK per [facility] notes. There was no stroke. As with many of patient's complaints, there is inconsistencies in the history provided. Pt is not reporting an acute change prior to arriving at the hospital nor is she reporting focal neurologic deficits at the time of presentation. I will be making no changes to her prior strokeprevention plan that included daily ASA 81mg, statin, BP goal <140/90 and glucose <140. Educated on stroke and when to present to ER or contact 911 for new focal/neuro deficits. 4. Unsteadiness - ICD9: 781.2, ICD10: R26.81 5. Frequent falls - ICD9: V15.88, ICD10: R29.6 Etiology uncertain as inconsistencies on examination. Imaging studies do not suggest a REMELTER cause (brain and full neur-axis imaged). Question if functional neurologic disorder. Patient declined to seeDr. Camilo for second opinion, but after most recent visits and change in exam, low suspicion for PD. 6. Headaches - ICD9: 784.0, ICD10: R51.9 Resolved. No further therapy. Vega Granger MD I spent a total of 42+ minutes on the date of the service which included preparing to see the patient, [id number] patient care, completing clinical documentation, obtaining and/or reviewing separately obtained history, performing a medically appropriate examination, counseling and educating the pa tient/family/caregiver, and communicating results to the patient/family/caregiver. documented in this encounterShel[facility]05-02-[facility]24 Instructions* Patient Instructions* Emelia Lynn APRN.CNP - 01/11/2024 8:44 AM EDT Start Paxil 10 mg daily ( Mood/anxiety) Keep scheduled appointment with Neurology tomorrow Recommend establishing care with counselor Continue to take all medication as prescribed. Continue with supportive care, stay well hydrated. Follow up in 1 month, may be telephone visit if needed. documented in this encounterSheltering [facility]05-02-[facility] History of Present illness Narrative* Emelia Lynn APRN.CNP - 01/11/2024 8:20 AM EDT This is a 78 year old female who presents today with: Patient presents with: Follow Up: [facility] ER follow up HISTORY OF PRESENT ILLNESS: Bharti Akbar is a 78 year old female. Patient presents with: Follow Up: [facility] ER follow up Transitional Care Management Progress Note The patients TCM visit was performed within the 7 days of discharge. Patient's Date of discharge: 01/06/2024 Date of initial coordinator contact after discharge: 01/09/2024 Discharge diagnosis: URI, aphasia, headache Medication review completed Yes HOSPITAL/ER FOLLOW UP: Reason for visit: Headache Which facility: [facility] Date of visit: 01/04/2024-01/06/2024 Diagnosis: Complicated migraine, anxiety/depression, carotid artery disease, URI Testing done: CTA head/neck. CT of the brain showed no acute intracranial pathology. CTA of the head and neck showed right calcification of the carotid bulb and proximal internal carotid artery that was less than 50% stenosis and less than 50% stenosis in the left ICA as well with mild calcified cavernous segment bilaterally. Chest x-ray was fairly unremarkable. EKG showed normal sinus rhythm with no ST wave changes. CBC and chemistry panel were unremarkable. A1c 5.0. Cholesterol well-controlled. Had recent echocardiogram in November, ejection fraction 65% at that time. Stroke neurologist from [facility] was consulted and did offer tenecteplase as her NIH was reportedly 5. Repeat CT and MRI was performed [address] was negative for any hemorrhage and MRI was negative for any stroke. Treatment given: Concerns that some of her neurological symptoms could have been caused from the headache cocktail that was given previously. Evaluated by PT and OT. Had evaluation with neurology, suspicious that she had a complicated migraine due to negative MRI. Instructed to follow-up with her neurologist as scheduled. Gave Rx for Zofran to help with nausea. Current symptoms: Difficulty with coordination. Stopped going to PT, refers that it was too much. Has Neuro follow up tomorrow. Will be having Neurological testing January 16 at [facility] [place], refers that she does not want to complete this testing if she does not have to. Is considering quitting herjob, refers that trying to work is becoming too much. Working on figuring out insurance coverage for when she retires. Having on going runny nose and headache. Increased anxiety and sadness due to situation. No SI/HI. Feels discouraged. Lack of motivation. Using Trazodone to help with sleep. 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 07/07/2015 HLD (hyperlipidemia) HTN (hypertension) Iron deficiency anemia due to chronic blood loss 03/06/2015 Kidney stone Lens replaced by other means - Right Eye 12/26/2014 Memory loss Osteoarthrosis, unspecified whether generalized or localized, other specified sites Other vitreous opacities - Both Eyes 07/07/2014 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 S/P laser cataract surgery - Right Eye 12/26/2014 S/P LASIK surgery of both eyes - Both Eyes 07/07/2014 Tear film insufficiency, unspecified 12/11/2014 Unspecified constipation PAST SURGICAL HISTORY Procedure Laterality Date APPENDECTOMY 1994 ARTHRP INTERPOS INTERCARPAL/METACARPAL JOINTS Right 10/07/2016 Right thumb CMC arthroplasty ; THYROIDECTOMY TOTAL OR COMPLETE 02/08/2012 COLONOSCOPY FLX DX W/COLLJ SPEC WHEN PFRMD 08/03/2005 Colonoscopy COLONOSCOPY GEN ANES 08/26/2020 Repeat in 5-10 years COLONOSCOPY W/BIOPSY SINGLE/MULTIPLE 06/19/2015 normal colon CORRJ HLX VLGS BNCTY SESMDC W/DOUBLE OSTEOTOMY 2004 RIGHT FOOT DILATION & CURETTAGE DX&/THER NONOBSTETRIC 1979 AFTER MISCARRAGE EGD 08/26/2020 EGD TRANSORAL BIOPSY SINGLE/MULTIPLE 06/19/2015 gastritis ESOPHAGOGASTRODUODENOSCOPY TRANSORAL DIAGNOSTIC 08/03/2005 EGD PAST SURGICAL HISTORY OF 1975 RECTAL WALL REPAIR PAST SURGICAL HISTORY OF 2002 Lasik Surgery on both eyes ([place]) PAST SURGICAL HISTORY OF 2010 broken neck PAST SURGICAL HISTORY OF 08/2015 Bare metal stent/ graft of heart x 1 PRQ CARDIAC STENT W/ANGIO 1 VSL 09/01/2015 Mid Lad TONSILLECTOMY PRIMARY/SECONDARY <AGE 11 TOTAL ABDOMINAL HYSTERECT W/WO RMVL TUBE OVARY 1994 Hysterectomy, TAHBSO XCAPSL CTRC RMVL INSJ IO LENS PROSTH W/O ECP 12/25/2014 Cataract Extraction with Femtosecond Laser (LenSx)-right eye ALLERGIES Contrast Dye [Iodine], Albuterol, Amoxil [Amoxicillin], Clindamycin, Codeine, DiatrizoateMeglumine, Dyazide [Triamterene-Hydrochlorothiazid], Erythromycin, Flexeril [Cyclobenzaprine], Oxycodone, Oxycontin [Oxycodone Hcl], Tessalon Perles [Benzonatate], Tetanus Vaccines And Toxoid, and Vicodin [Hydrocodone-Acetaminophen] MEDICATIONS Current Outpatient Medications Medication Sig donepezil (ARICEPT) 5 mg tablet take 1 tablet by mouth once daily at bedtime amLODIPine (NORVASC) 2.5 mg tablet DAILY lisinopril (ZESTRIL) 10 mg tablet 20 mg. meloxicam (MOBIC) 15 mg tablet Take 1 tablet by mouth once daily. With food. atorvastatin (LIPITOR) 40 mg tablet AT BEDTIME carvedilol (COREG) 6.25 mg tablet Cholecalciferol, Vitamin D3, 50 mcg (2,000 unit) cap DAILY oxybutynin XL (DITROPAN XL) 5 mg 24 hr tablet Take 1 tablet by mouth once daily. tamsulosin (FLOMAX) 0.4 mg Take 1 capsule by mouth daily at bedtime. traZODone (DESYREL) 50 mg tablet Take 2 tablets by mouth daily at bedtime. levothyroxine (LEVOXYL) 100 mcg tablet Take 1 tablet by mouth once daily. Take on empty stomach. For Thyroid. aspirin, enteric coated (ASPIRIN, ENTERIC COATED) 81 mg EC tablet Take 1 tablet by mouth once daily. COMPOUNDED PRESCRIPTION Home blood pressure monitor. DX: Essential HTN I10 CENTRUM SILVER ORAL TAB Take one(1) tablet daily. No current facility-administered medications for this visit. FAMILY HISTORY Problem Relation Age of Onset Alzheimer's Disease Mother Heart Mother Heart Father 83 years old Hypertension Father Stroke Father Cataract Father other (parkinson's) Father Colon Cancer Maternal Aunt Diabetes Maternal Grandmother Diabetes Maternal Aunt other (ibs) Brother Heart Sister other (knee replacements) Sister other (cataract surgery) Sister Heart Sister Social History Tobacco Use Smoking status: Never Smokeless tobacco: Never Vaping Use Vaping Use: Never used Substance Use Topics Alcohol use: Yes Comment: special occasions Drug use: No Comment: coffee REVIEW OF SYSTEMS GENERAL: No weight loss, malaise or fevers/chills HEENT: + Rhinorrhea NECK: Negative for lumps, goiter, pain and significant neck swelling RESPIRATORY: Negative for cough, hemoptysis, wheezing, dyspnea or shortness of breath CARDIOVASCULAR: Negative for chest pain, leg swelling, orthopnea, or palpitations GI: No nausea, vomiting, or diarrhea/constipation. No hematochezia/melena. No heartburn or reflux symptoms. : No history of dysuria, frequency or incontinence MUSCULOSKELETAL: Negative for joint pain or swelling. SKIN: Negative for lesions, rash, and itching ENDOCRINE: Negative for cold or heat intolerance, polyuria, polydipsia and goiter NEURO: No history of headaches, syncope, paralysis, seizures or tremors MOOD: + Anxiety/Sadness EXAM: BP 140/100 Pulse 62 Resp 16 Wt 51.7 kg (114 lb) SpO2 98% BMI 20.52 kg/m PHYSICAL EXAM: General Appearance: Well appearing, alert, in no acute distress, well-hydrated, well nourished. Skin: Skin color, texture, turgor normal, no suspicious rashes or lesions. Head: Normocephalic, no masses, lesions, tenderness or abnormalities. Eyes: Anicteric sclera. Pupils are equally round and reactive to light. Extraocular movements are intact. Ears: External ears normal, canals clear. TMs pearly caballero. Nose/Sinuses: Positive findings: clear rhinorrhea. Oropharynx: Lips, mucosa, and tongue normal, teeth and gums normal, oropharynx normal. Neck: Supple, no adenopathy; thyroid symmetric, normal size, no bruits. Lungs: Lungs clear to auscultation. No wheezing, rhonchi, rales.. Heart: RRR without murmur, gallop, or rubs. No ectopy. Extremities: No deformities, edema, skin discoloration, clubbing or cyanosis. Good capillary refill. Peripheral Pulses: Normal, Capillary refill <2secs, strong peripheral pulses, Pulses palpable. Neurologic: Gait normal. Sensation grossly intact. Mood: Pleasant, engaged, good eye contact. ASSESSMENT/PLAN: 1. Hospital discharge follow-up - ICD9: V67.59, ICD10: Z09 (primary diagnosis) - Headache has improved since discharge 2. Complicated migraine - ICD9: 346.00, ICD10: G43.109 - Continue supportive care at home. - Keep scheduled appointment with Neurology. 3. URI, acute - ICD9: 465.9, ICD10: J06.9 - Discussed viral etiology and rationale for treatment. - Symptomatic treatment with prn analgesia - Supportive care with fluids and rest 4. Anxiety with depression - ICD9: 300.4, ICD10: F41.8 - Start Paxil 10 mg daily - Recommend establishing care with Counseling - Discussed that she may benefit from retiring due to stress and health changes. Refers she will look into insurance options. - PAROXETINE 10 MG TABLET 5. Hypothyroidism, acquired - ICD9: 244.9, ICD10: E03.9 - Instructed patient on importance of taking on an empty stomach either first thing in the morning or at bedtime. - LEVOTHYROXINE 100 MCG TABLET 6. Essential hypertension - ICD9: 401.9, ICD10: I10 - Uncontrolled - Continue current medications - Recommend home blood pressure monitoring, to bring results to next visit - Encouraged sodium restriction, DASH or Mediterranean diet - Recommend regular aerobic exercise - Follow up in 1 month. - LISINOPRIL 20 MG TABLET Follow up in 1 month or sooner as needed. Discussed treatment plan and patient voices understanding. Patient's questions answered appropriately. Medications and potential side effects were discussed and patient voices understanding. Emelia Lynn APRN.FREDY This note was partially generated using [employer] voice recognition system. Note was reviewed for accuracy. There may be minor misspellings or grammar miscues with [employer] voice recognition. documented in this encounterSheltering [facility] Hospital04-30-2024 History of Present illness Narrative* Tahira Perla MA - 01/09/2024 1:17 PM EDT TRANSITION CARE MANAGEMENT (TCM) INITIAL CONTACT Material Attendant Outreach Provider Action/FYI: 7 day TCM Scheduled to see Dr. Granger in Neuro on 01/12/24. Follows with [facility] Initial contact with patient post discharge, spoke to patient on 01/09/24. Patient identified by name and . TRANSITION CARE MANAGEMENT INITIAL OUTREACH DOCUMENTATION: 01/09/2024 Date of Outreach: Outreach Attempt 1: Contact Made Date of Discharge 01/06/2024 SUMMARY: -Pt discharged from [facility] on 01/06/24. -Admitted for: URI, Aphasia, Headache Do you have a hospital follow up appointment with your PCP? Appointment on 01/11/24 with Emelia Lynn. Yes. Remind patient of appointment date, time, and location. If not within 14 calendar days of discharge - please reschedule accordingly. MEDICATIONS: Many patients have questions or concerns about their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 face was normal. She had no upper extremity drift but baseline tremor was noted. She was able to hold both legs off the bed for, 3 however they slowly drifted back to the bed and she reported normal sensation in her lower extremities. A stroke alert was initiated and she was taken for CT of the brain as well as CTA of the head and neck. CT of the brain showed no acute intercranial pathology and senescent changes that were stable. CTA of the head and neck showed right calcification of the carotid bulb and proximal internal carotid artery that was less than 50% stenosis and less than 50% stenosis in the left ICA as well with mild calcified cavernous segment bilaterally. Vertebrals were unremarkable. Chest x-ray was fairly unremarkable except for some mild left basilar atelectasis. EKG was sinus rhythm with no ST-T wave changes concerning for ischemia and normal intervals. Initial vital signs show temperature of 96, heart rate 91, respiratory 16, blood pressure was 157/104, and pulse ox was 97% on room air. Her CBC was essentially unremarkable. Her coags were normal. Herchemistry panel was unremarkable. Her hemoglobin A1c was 5.0. Her cholesterol is well-controlled with a total cholesterol 128/HDL 51/LDL 56 and triglycerides 104. She had a recent echocardiogram here in November at which time a bubble studywas done. Her EF was 65% at that time and she had mild aortic stenosis with a negative bubble study. Stroke neurologist from [facility] was consulted and did offer tenecteplase as her NIH was reportedly 5. Initially her blood pressure was elevated and a Cardene drip was started however this dropped her blood pressure to 116 so the Cardene drip was discontinued and she was maintained with as needed medications for blood pressure. Currently complaining of mild headache that she rates at about 4 out of 10. States it is much better than yesterday. Migraines are documented in her history however she denies migraines. She states she has not had a headache that bad in a long time. She is also complaining of some congestion and mild cough. Neurological exam is better. And current NIH is 0-1 but fluctuating. And the patient talks repetitively about retiring and how much stress work is. Objective Data Objective Data Vital Signs: Vital Signs Temp Pulse Resp BP Pulse Ox O2 Del Method 97.7 F L 64 15 178/73 H 94 Room Air 01/05/24 05:30 01/05/24 06:31 01/05/24 06:31 01/05/24 06:31 01/05/24 06:31 01/05/24 06:31 Oxygen Delivery Method Room Air Weight: 59.1 kg Body Mass Index (BMI) 23.1 Intake & Output: Intake and Output for Last 24 Hours 01/03/24 01/04/24 01/05/24 23:59 23:59 23:59 Intake Total 905.00 / 905.00 Output Total 525 / 525 Balance 905.00 / 555.00 -525 / -525 Lab / Micro Data 01/05/24 03:40 01/05/24 03:40 Labs: Laboratory Results - last 24 hr 01/04/24 17:07: POC Glucose 102 01/04/24 17:10: WBC 5.1, RBC 4.17 L, Hgb 12.5, Hct 36.0 L, MCV 86.3, MCH 30.0, MCHC 34.7, RDW Std Deviation 36.3, RDW Coeff of Jase 11.5 L, Plt Count 215, MPV 8.3, Immature Gran % (Auto) 0.400, Neut % (Auto) 67.1, Lymph % (Auto) 25.3, [place]% (Auto) 6.4, Eos % (Auto) 0.6, Baso % (Auto) 0.2, Absolute Neuts (auto) 3.4, Absolute Lymphs (auto) 1.30, Nucleated RBC % 0, PT 14.1, INR 1.1, APTT 39.5 H, Sodium 138, Potassium 3.6, Chloride 106, Carbon Dioxide 27.0, Anion Gap 5, BUN 11, Creatinine 0.71, Estim Creat Clear Calc 47.17, Est GFR (MDRD) Af Amer 102, Est GFR (MDRD) Non-Af 84, BUN/Creatinine Ratio 15.4, Glucose 101, Calcium 7.9 L,Troponin I High Sens 9 01/05/24 00:18: Hemoglobin A1c 5.0, Triglycerides 104, Cholesterol 128, LDL Cholesterol 56, VLDL Cholesterol 21, HDL Cholesterol 51, TSH 2.96 01/05/24 03:40: WBC 5.9, RBC 4.16 L, Hgb 12.4, Hct 35.8 L, MCV 86.1, MCH 29.8, MCHC 34.6, RDW Std Deviation 35.7, RDW Coeff of Jase 11.4 L, Plt Count 234, MPV 8.4, Sodium 143, Potassium 3.2 L, Chloride 110 H, Carbon Dioxide 27.0, Anion Gap6, BUN 11, Creatinine 0.67, Estim Creat Clear Calc 47.17, Est GFR (MDRD) Af [id number], Est GFR (MDRD) Non-Af 90, BUN/Creatinine Ratio 16.4, Glucose 97, Calcium 8.1 L, Phosphorus 2.9, Magnesium 1.9 Radiography Diagnostic Testing: Radiology Impression Brain CT 01/04/24 16:53 IMPRESSION: No acute intracranial pathology. Age-related changes. Electronically Signed: Ludin Ware DO at 17:11 EDT Reading Location ID and State: [facility] / [place] Tel [phone], Service support , ADDENDUM: 01/04/24 1720 IMPRESSION: No acute intracranial pathology. Age-related changes. N.B. : The above Results were Read Back by Ludin Ware DO to Izabella Mendoza MD, and understanding confirmed on 01/04/2024 17:13:56 (ET). Electronically Signed: Ludin Ware DO at 17:11 EDT Reading Location ID and State: [facility] / [place] Tel [phone], Service support , ADDENDUM: 01/04/24 1737 IMPRESSION: No acute intracranial pathology. Age-related changes. N.B. : The above Results were Read Back by Ludin Ware DO to Izabella Mendoza MD, and understanding confirmed on 01/04/2024 17:30:25 (ET). Electronically Signed: Ludin Ware DO at 17:11 EDT , Head/Neck CTA 01/04/24 16:57 IMPRESSION: Status post right calcifications at the carotid bulbs and proximal internal carotid arteries with less than 50% luminal stenosis. No significant interval changes of the intracranial major arteries. Electronically Signed: Ludin Ware DO at 18:25 EDT , ADDENDUM: 01/04/24 1832 IMPRESSION: Status post right calcifications at the carotid bulbs and proximal internal carotid arteries with less than 50% luminal stenosis. No significant interval changes of the intracranial major arteries. N.B. : The above Results were Read Back by Ludin Ware DO to Izabella Mendoza MD, and understanding confirmed on 01/04/2024 18:25:52 (ET). Electronically Signed: Ludin Ware DO at 18:25 EDT , Chest X-Ray 01/04/24 17:30 IMPRESSION: Mild left basilar infiltration/atelectasis. Electronically Signed: Ludin Ware DO at 17:49 EDT , Physical Exam Const alert, oriented x3, no apparent distress, average body habitus and well nourished Constitutional Narrative: Older, white female, sitting up in bed finishing breakfast and watching television, affect is flat but patient appears comfortable, does not appear toxic HEENT head/scalp atraumatic and moist oral mucous membranes HEENT Narrative: Mallampati is 2, no thrush Head and Scalp: normocephalic Resp normal respiratory effort, no retractions, no use of accessory muscles and clearto auscultation bilaterally Auscultation: Negative for rales, rhonchi or wheezes Cardio regular rate, regular rhythm, S1 normal heart sound, S2 normal heart sound, no murmurs, no rub, no gallops and no clicks GI normal to inspection, nondistended, normoactive bowel sounds, soft to palpation and non-tender Extremity no clubbing, cyanosis or edema Extremity Narrative: Pedal pulses and radial pulses are 2+ Neuro oriented x3, moves all extremities and no focal motor deficits Neuro Narrative: Generalized weakness noted with mild tremor but no focal deficits at this time, speech is soft and a little bit shaky Psych Psych Narrative: Affect is flat and mood seems depressed, patient also seems somewhat anxious Assessment & Plan Assessment/Plan (1) URI (upper respiratory infection): (2) Aphasia: (3) Headache: PLAN: Plan Headache/expressive aphasia/focal weakness/focal sensory changes -Initial CT was negative -Per [facility] teleneurology she had some conflicting results on her NIH but finally score was 5 4 Minor paralysis, drift, mild to moderate sensory deficits, and mild to moderate aphasia/mild to moderate dysarthria -TNK was offered and given after blood pressure was controlled -Patient was placed on a Cardene drip but systolic pressure dropped to 116 so itwas discontinued -Recent hospitalization here in early November with ataxia--> had extensive workup at that time which was found to be benign -Follows with neurology as an outpatient and sees Dr. Granger -Continue neurochecks as ordered per stroke protocol -Will have to be done tomorrow as 24 hours after tenecteplase given MR likely not be available -Just had an echo on 11/14/2023 with a negative bubble study--> no reason to repeat at this time -Antihypertensives currently on hold and blood pressure control with PRNs -No aspirin for 24 hours at after tenecteplase--> it appears that it was given between 530 and 6 last evening -MRI tonight 24 hours after tenecteplase given if able if not we will need to check CT and obtain MRI tomorrow morning -Glucose is normal and A1c is 5.0 -Lipid panel shows good control with an LDL of 56 and total cholesterol 128 withtriglycerides of 104 and an HDL of 51 -Neurology consultation Cough/congestion -Check COVID/flu/RSV -Check respiratory viral panel -Start Mucinex -Patient with multiple allergies so antitussives are not really available at this time due to her allergies -Will continue to monitor -Continue as needed Tylenol for headache Mild aortic stenosis -Noted on echocardiogram from 11/14/2023 Patient does have a systolic cardiac murmur -Continue outpatient follow-up CAD/HPL/HTN/carotid artery disease/diastolic dysfunction -Previous PCI in 2015 -Home aspirin is on hold -Continue home atorvastatin -Continue home colestipol -Hold home antihypertensives until stroke can be ruled out then reinitiate if negative -PRNs per stroke protocol are available -Patient with bilateral carotid artery stenosis however disease is less than 50% -Outpatient referral to vascular surgery was made however there is no signs of surgical disease at this point GERD/history of peptic ulcer disease -Continue home famotidine Hypothyroidism -Continue home levothyroxine -TSH is within normal limits Memory impairment -Continue home donepezil Chronic low back pain with radicular symptoms -Discussed with patient and there is no acute changes at this time -Hold meloxicam with tenecteplase dosing DVT prophylaxis -SCDs CODE STATUS -Full code Charges/Coding Visit Charges Inpatient E&M: 02462 Subs Hosp L2 01/05/24 1218 <Electronically signed by Tahira Meadows DO> Cosigner Signature (if applicable): CC: ~ Signed [facility] Work Phone: 1(312) 117-977104-26-2024 History and physical note Author [facility] January 05, 2024 4:14am Note Date/Time January 04, 2024 8:2 8pm [facility] Health System Medical Records Department [address] [place] [id number] H&P Exam - Hospitalist 01/04/242027 MR#: [id number] Acct: [id number] Name: BHARTI AKBAR Rep #:[id number] : 1945 78 From: Gentry loredo DO PCP: Dr. Armando Orozco MD Status:AD M IN Location: ICU ICU08-1 HPI - General General Date of Admission: 01/04/24 Date of Service: 01/04/24 Chief Complaint: Headache, concern for expressive aphasia HPI Narrative BHARTI AKBAR, is a 78 F who presented to [facility] ED on 01/04/2024 with worsening headache and concern for expressive aphasia. In the ED, staff noted that she seemed to have expressive aphasia and there was concernfor possible stroke. Stroke alert was called at that time. Initial CT imaging was negative for any acute pathology. Per [facility] teleneurology, she had conflicting results on her NIH scale score but overall score approximately 5 (minor paralysis, drift, mild to moderate sensory loss, mild to moderate aphasia, mild to moderate dysarthria). Given her elevated NIH score, teleneurology offered patient TNK. Initially her blood pressure was elevated and she was not a candidate for TNK. However, she was given 2 doses of IV labetalol and put on a Cardene drip with improvement in her blood pressure. Shewas then given TNK in the ED and admitted to the ICU for further management. I saw patient at the bedside in the ICU shortly after she arrived over from the ED. At that time, she was sitting up in bed fairly comfortably, in no acute distress. She reported a continued headache that was slightly improved from previous. She stated her expressive aphasia was slightly better from previous. She did continue to have a cough with congestion, which she noted has been present for the last week or so. She continued to deny any upper or lower extremity weakness or sensory changes. She denies any fevers or chills. Denies any chest pain, shortness of breath, abdominal pain or discomfort. Patient lives athome and generally has a fairly good functional status. No other acute concernsat this time. [facility] Medical History (Updated 01/05/24 @ 04:[address] Gentry Thomson, DO) Abdominal bloating Angina pectoris Aortic insufficiency Aortic valve disease Atherosclerotic heart disease of [place] coronary artery without angina pectoris Atrial fibrillation Bilateral carotid artery stenosis C. difficile colitis Carotid artery bruit Carotid stenosis, right Cataracts, bilateral Chest pain Chronic headache Colitis Constipation Diarrhea Diastolic dysfunction Dysphagia Essential hypertension Family history of premature coronary heart disease Fatigue Gait disturbance GERD (gastroesophageal reflux disease) GI bleed GI problem Hearing problem History of GI bleed HLD (hyperlipidemia) Hypothyroidism Insomnia Iron deficiency anemia due to chronic blood loss Ischemic colitis skilled nursing use of drug Lung nodule, multiple Migraines Non-smoker Nonspecific abnormal serum enzyme levels Osteoarthritis Palpitations Peptic ulcer disease Presence of stent in coronary artery (~04/19/21) Seasonal allergies Segmental colitis associated with diverticulosis Thyroid dysfunction TIA (transient ischemic attack) Ventricular hypertrophy Vision problem Home Medications carvedilol 6.25 mg tablet (Coreg) 6.25 mg PO BID blood pressure #60 tabs 10/16/23 [Rx Last Taken 01/04/24] colestipol 1 gram tablet (Colestid) 1 g PO BID cholesterol 10/16/23 [History Last Taken 01/04/24] donepezil 5 mg tablet 5 mg PO DAILY memory 10/16/23 [History Last Taken 01/04/24] atorvastatin 40 mg tablet 40 mg PO QHS cholesterol 11/13/23 [History Last Taken 01/03/24] famotidine 20 mg tablet 20 mg PO DAILY reflux 11/13/23 [History Last Taken 01/04/24] aspirin 81 mg tablet,delayed release (Adult Low Dose Aspirin) 81 mg PO DAILY 11/29/23 [History Last Taken 01/04/24] levothyroxine 100 mcg tablet 88 mcg PO DAILY thyroid 11/29/23 [History Last Taken 01/04/24] lisinopril 20 mg tablet 20 mg PO BID blood pressure #60 tabs 11/29/23 [Rx Last Taken 01/04/24] meloxicam 15 mg tablet 15 mg PO DAILY 01/04/24 [History Last Taken 01/04/24] trazodone 50 mg tablet 100 mg PO QHS PRN insomnia 01/04/24 [History Last Taken 01/03/24] Allergy/AdvReac Type Severity Reaction Status Date / Time albuterol Allergy Intermediate GI upset Verified 01/04/24 15:03 cyclobenzaprine Allergy Intermediate mental Verified 01/04/24 15:03 [From Flexeril] status change hydrocodone [From Vicodin] Allergy Intermediate muscle Verified 01/04/24 15:03 twitching oxycodone Allergy Intermediate Vomiting Verified 01/04/24 15:03 amoxicillin Allergy Mild Swelling Verified 01/04/24 15:03 clindamycin Allergy Mild Swelling Verified 01/04/24 15:03 diatrizoate meglumine Allergy Mild Itching Verified 01/04/24 15:03 Tetanus Vaccines and Toxoid Allergy Mild Hives Verified 01/04/24 15:03 codeine AdvReac Intermediate Nausea & Verified 01/04/24 15:03 Vomiting benzonatate AdvReac Mild Vomiting Verified 01/04/24 15:03 [From Tessalon Perles] hydrochlorothiazide AdvReac Mild intolerance Verified 01/04/24 15:03 [From Dyazide] triamterene [From Dyazide] AdvReac Mild intolerance Verified 01/04/24 15:03 erythromycin base AdvReac Nausea Verified 01/04/24 15:03 Family History Mother , Age 76 heart attack Myocardial infarction Heart disease Cardiomyopathy Hypertension Osteoporosis Father , Heart Disease Age 86 Heart disease Parkinson disease CVA (cerebral vascular accident) Hypertension Unknown Thyroid disorder Stomach ulcer Surgical History History of appendectomy History of colonoscopy (~08/2020) History of coronary artery stent placement History of esophagogastroduodenoscopy (EGD) (~08/2020) History of hysterectomy History of thyroidectomy Presence of coronary angioplasty implant and graft (~09/01/15) Social History household members: spouse Smoking Status: Never smoker alcohol intake: current alcohol intake frequency: holidays/special occasions only Alcohol type: wine substance use type: does not use diet: other caffeine: Yes Type: coffee Number of servings: 3 what type of physical activity do you participate in: walking frequency: 3-4 times per week seatbelt use: always do you feel safe at home: Yes ROS Constitutional Constitutional: Denies chills, fatigue, fever(s) or weakness Eyes Eyes: Denies change in vision ENT HEENT: Reports headache(s), nasal congestion and sinus pressure; Denies dysphagia Cardiovascular Cardiovascular: Denies chest pain, edema or lightheadedness Respiratory/Chest Respiratory/Chest: Reports cough; Denies productive cough, shortness of breath at rest or wheezing Gastrointestinal Gastrointestinal: Denies abdominal pain, constipation, diarrhea, nausea or vomiting Genitourinary Genitourinary: Denies dysuria Neurologic Neurologic: Reports abnormal speech and headache(s); Denies confusion, disequilibrium, dizziness, focal weakness, numbness or paresthesias Psychiatric Psychiatric: Reports anxiety Vital Signs Vital Signs Vital Signs: 01/04/24 15:00 01/04/24 17:00 01/04/24 17:09 Temperature 96 F L Temperature Source Temporal Pulse Rate 91 84 84 Respiratory Rate 16 16 20 H Blood Pressure 157/104 H 187/67 H 187/67 H Blood Pressure Mean 121 107 107 Blood Pressure Source Blood Pressure Position Blood Pressure Location Pulse Ox 97 95 96 Oxygen Delivery Method Room Air Room Air Room Air 01/04/24 17:11 01/04/24 17:14 01/04/24 17:30 Temperature Temperature Source Pulse Rate 81 70 Respiratory Rate 16 17 Blood Pressure 211/90 H Blood Pressure Mean 130 Blood Pressure Source Blood Pressure Position Blood Pressure Location Pulse Ox 95 97 Oxygen Delivery Method Room Air Room Air Room Air 01/04/24 17:59 01/04/24 17:46 01/04/24 18:00 Temperature Temperature Source Pulse Rate 64 72 76 Respiratory Rate 18 19 H 17 Blood Pressure 203/74 H 208/91 H 172/68 H Blood Pressure Mean 117 130 102 Blood Pressure Source Monitor Blood Pressure Position Blood Pressure Location Pulse Ox 95 95 97 Oxygen Delivery Method Room Air Room Air Room Air 01/04/24 18:08 01/04/24 18:10 01/04/24 18:16 Temperature 97.6 F L 98.6 F Temperature Source Temporal Oral Pulse Rate 73 78 Respiratory Rate 17 12 Blood Pressure 172/65 H 172/68 H 140/62 H Blood Pressure Mean 102 88 Blood Pressure Source Monitor Monitor Blood Pressure Position Semi-Fowlers Blood Pressure Location Right Arm Pulse Ox 97 97 Oxygen Delivery Method Room Air Room Air 01/04/24 18:31 01/04/24 18:33 01/04/24 18:46 Temperature 98.4 F 98 F Temperature Source Oral Oral Pulse Rate 77 75 70 Respiratory Rate 15 14 12 Blood Pressure 116/47 L 116/47 L 133/49 H Blood Pressure Mean 70 70 77 Blood Pressure Source Monitor Monitor Blood Pressure Position Semi-Fowlers Semi-Fowlers Blood Pressure Location Right Arm Right Arm Pulse Ox 94 94 97 Oxygen Delivery Method Room Air Room Air Room Air 01/04/24 19:01 01/04/24 19:16 01/04/24 19:26 Temperature 98.6 F 98.6 F 98.4 F Temperature Source Oral Oral Pulse Rate 70 76 68 Respiratory Rate 15 16 16 Blood Pressure 139/53 H 142/62 H 143/76 H Blood Pressure Mean 81 88 98 Blood Pressure Source Monitor Monitor Blood Pressure Position Semi-Fowlers Semi-Fowlers Blood Pressure Location Left Arm Right Arm Pulse Ox 97 96 95 Oxygen Delivery Method Room Air Room Air 01/04/24 19:31 01/04/24 20:01 Temperature 98.4 F 98.3 F Temperature Source Oral Oral Pulse Rate 71 80 Respiratory Rate 15 16 Blood Pressure 141/68 H 150/67 H Blood Pressure Mean 92 94 Blood Pressure Source Manual Monitor Blood Pressure Position Semi-Fowlers Semi-Fowlers Blood Pressure Location Left Arm Right Arm Pulse Ox 97 99 Oxygen Delivery Method Room Air Room Air Weight Weight: 54.2 kg Body Mass Index (BMI) 21.2 Physical Exam Const alert, oriented x3 and average body habitus Constitutional Narrative: Elderly female, mild to moderately anxious appearing, otherwise sitting up fairly comfortably in bed, conversing normally, in no acute distress. General Appearance: cooperative and comfortable HEENT normocephalic, head/scalp atraumatic, hearing grossly normal bilaterally and nasal mucous membranes and turbinates normal Eyes PERRL, EOMs intact bilaterally and conjunctivae normal Neck full ROM Chest inspection of chest normal Resp normal respiratory effort, normal air movement, no use of accessory muscles and clear to auscultation bilaterally Cardio regular rate, regular rhythm, no murmurs and peripheral pulses 2+ throughout GI normal to inspection, nondistended, normoactive bowel sounds, soft to palpation,non-tender and non-distended Back/Spine normal ROM Extremity normal to inspection, full ROM and no pedal edema Skin no rashes or lesions noted Neuro moves all extremities and no focal motor deficits Neuro Narrative: Mild intermittent difficulty with word finding. Psych Mood & Affect: anxious Results Lab / Micro Data 01/04/24 17:10 01/04/24 17:10 Labs: Laboratory Results - last 24 hr 01/04/24 17:07: POC Glucose 102 01/04/24 17:10: WBC 5.1, RBC 4.17 L, Hgb 12.5, Hct 36.0 L, MCV 86.3, MCH 30.0, MCHC 34.7, RDW Std Deviation 36.3, RDW Coeff of Jase 11.5 L, Plt Count 215, MPV 8.3, Immature Gran % (Auto) 0.400, Neut % (Auto) 67.1, Lymph % (Auto) 25.3, [place]% (Auto) 6.4, Eos % (Auto) 0.6, Baso % (Auto) 0.2, Absolute Neuts (auto) 3.4, Absolute Lymphs (auto) 1.30, Nucleated RBC % 0, PT 14.1, INR 1.1, APTT 39.5 H, Sodium 138, Potassium 3.6, Chloride 106, Carbon Dioxide 27.0, Anion Gap 5, BUN 11, Creatinine 0.71, Estim Creat Clear Calc 47.17, Est GFR (MDRD) Af Amer 102, Est GFR (MDRD) Non-Af 84, BUN/Creatinine Ratio 15.4, Glucose 101, Calcium 7.9 L,Troponin I High Sens 9 Imaging Radiology Impression Brain CT 01/04/24 16:53 IMPRESSION: No acute intracranial pathology. Age-related changes. Electronically Signed: Ludin Ware DO at 17:11 EDT , ADDENDUM: 01/04/24 1720 IMPRESSION: No acute intracranial pathology. Age-related changes. N.B. : The above Results were Read Back by Ludin Ware DO to Izabella Mendoza MD, and understanding confirmed on 01/04/2024 17:13:56 (ET). Electronically Signed: Ludin Ware DO at 17:11 EDT , ADDENDUM: 01/04/24 1737 IMPRESSION: No acute intracranial pathology. Age-related changes. N.B. : The above Results were Read Back by Ludin Ware DO to Izabella Mendoza MD, and understanding confirmed on 01/04/2024 17:30:25 (ET). Electronically Signed: Ludin Ware DO at 17:11 EDT , Head/Neck CTA 01/04/24 16:57 IMPRESSION: Status post right calcifications at the carotid bulbs and proximal internal carotid arteries with less than 50% luminal stenosis. No significant interval changes of the intracranial major arteries. Electronically Signed: Ludin Ware DO at 18:25 EDT , ADDENDUM: 01/04/24 1832 IMPRESSION: Status post right calcifications at the carotid bulbs and proximal internal carotid arteries with less than 50% luminal stenosis. No significant interval changes of the intracranial major arteries. N.B. : The above Results were Read Back by Ludin Ware DO to Izabella Mendoza MD, and understanding confirmed on 01/04/2024 18:25:52 (ET). Electronically Signed: Ludin Ware DO at 18:25 EDT , Chest X-Ray 01/04/24 17:30 IMPRESSION: Mild left basilar infiltration/atelectasis. Electronically Signed: Ludin Ware DO at 17:49 EDT , Assessment & Plan Assessment/Plan (1) Headache: (2) Aphasia: (3) URI (upper respiratory infection): PLAN: Plan Patient is a 78-year-old female who presented to [facility] ED on 01/04/2024 with worsening headache and concern for expressive aphasia. 1. Headache with concern for expressive aphasia, concern for CVA s/p TNK administration ? Admit under inpatient status to ICU. Teleneurology following. Emissions Technician consulted. Orders placed per CVA with TNK administration order set. Strict bedrest for 24 hours. MRI brain ordered to be done after 24 hours. Blood pressures initially high but now improving, continued home antihypertensives with IV labetalol as needed to maintain SBP less than 180 and DBP less than 100. Tylenol as needed for headaches. 2. Mild URI symptoms ? Chest x-ray on admit nonacute. Patient with elevated BPs as noted above, otherwise afebrile and hemodynamically stable. Very mild cough noted during encounter, suspect mild viral URI, low concern for bacterial infection. Monitor. 3. Recent admission for gait stability/truncal ataxia ? Hospitalized at [facility] from 11/12-11/15/2023. See discharge summary from 11/14 for further details. Fairly extensive labs and imaging workup completed at that time, showed primarily chronic changes, no acute pathology. Plan was to follow-up with Dr. Granger with Neurology in [place] post-hospitalization. Per patient, she had not been able to get into see him prior to this admission. Chronic medical conditions: ? CAD/HPL/HTN/carotid artery disease: Stable. Previous PCI back in 2014. Echo during hospitalization in November showed EF 65%, stage I diastolic dysfunction suggestive of mild HFpEF, no PFO/ASD, no significant valvular disease. Continuehome aspirin, statin, colestipol, Coreg and lisinopril. ? GERD/history of PUD: Continue home famotidine. ? Hypothyroidism: Recent TSH and free T4 normal in November. Continue home Synthroid. ? Memory impairment: Stable. Continue home donepezil. ? Insomnia: Continue home trazodone as needed. DVT prophylaxis: SCDs CODE STATUS: Full code, verified Expected disposition: Home, 2 to 3 days Total clinical time spent by myself addressing the patient's medical issues, reviewing all the data, and collaborating with patient's care team: 55 minutes. Charges/Coding Visit Charges Inpatient E&M: 78490 Init Hosp L2 01/05/24 0414 <Electronically signed by Gentry Thomson DO> Cosigner Signature (if applicable): CC: Dr. Gentry Thomson DO; Dr. Armando Orozco MD~ Signed [facility] Work Phone: 1(898) 624-190104-26-2024 Discharge summary Author Izabella Mendoza [facility] January 04, 2024 11:07pm Note Date/Time January 04, 2024 4:2 2pm [facility] Health System Medical Records Department [address] [place] [address] Emergency Department Summary 01/04/24 MR#: [id number] Acct: [id number] Name: BHARTI AKBAR Rep #:[id number] : 1945 78 From: Izabella Mendoza MD PCP: Dr. Armando Orozco MD Status:AD M IN Location: ICU ICU08-1 HPI History of Present Illness Chief Complaint: Headache Informant: patient Onset/Context/Timing Onset: Days Narrative Narrative: Patient presents secondary to headache for the past 3 to 4 days. She states shefeels like her head is in a vice. She does have light sensitivity and nausea. She denies any recent head trauma. She does report some mild URI's symptoms. No fever has been noted. [facility] Medical History Abdominal bloating Angina pectoris Aortic insufficiency Aortic valve disease Atherosclerotic heart disease of tejon coronary artery without angina pectoris Atrial fibrillation Bilateral carotid artery stenosis C. difficile colitis Carotid artery bruit Carotid stenosis, right Cataracts, bilateral Chest pain Chronic headache Colitis Constipation Diarrhea Diastolic dysfunction Dysphagia Essential hypertension Family history of premature coronary heart disease Fatigue Gait disturbance GERD (gastroesophageal reflux disease) GI bleed GI problem Hearing problem History of GI bleed HLD (hyperlipidemia) Hypothyroidism Insomnia Iron deficiency anemia due to chronic blood loss Ischemic colitis skilled nursing use of drug Lung nodule, multiple Migraines Non-smoker Nonspecific abnormal serum enzyme levels Osteoarthritis Palpitations Peptic ulcer disease Presence of stent in coronary artery (~04/19/21) Seasonal allergies Segmental colitis associated with diverticulosis Thyroid dysfunction TIA (transient ischemic attack) Ventricular hypertrophy Vision problem Home Medications carvedilol 6.25 mg tablet (Coreg) 6.25 mg PO BID blood pressure #60 tabs 10/16/23 [Rx Last Taken 01/04/24] colestipol 1 gram tablet (Colestid) 1 g PO BID cholesterol 10/16/23 [History Last Taken 01/04/24] donepezil 5 mg tablet 5 mg PO DAILY memory 10/16/23 [History Last Taken 01/04/24] atorvastatin 40 mg tablet 40 mg PO QHS cholesterol 11/13/23 [History Last Taken 01/03/24] famotidine 20 mg tablet 20 mg PO DAILY reflux 11/13/23 [History Last Taken 01/04/24] aspirin 81 mg tablet,delayed release (Adult Low Dose Aspirin) 81 mg PO DAILY 11/29/23 [History Last Taken 01/04/24] levothyroxine 100 mcg tablet 88 mcg PO DAILY thyroid 11/29/23 [History Last Taken 01/04/24] lisinopril 20 mg tablet 20 mg PO BID blood pressure #60 tabs 11/29/23 [Rx Last Taken 01/04/24] meloxicam 15 mg tablet 15 mg PO DAILY 01/04/24 [History Last Taken 01/04/24] trazodone 50 mg tablet 100 mg PO QHS PRN insomnia 01/04/24 [History Last Taken 01/03/24] Allergy/AdvReac Type Severity Reaction Status Date / Time albuterol Allergy Intermediate GI upset Verified 01/04/24 15:03 cyclobenzaprine Allergy Intermediate mental Verified 01/04/24 15:03 [From Flexeril] status change hydrocodone [From Vicodin] Allergy Intermediate muscle Verified 01/04/24 15:03 twitching oxycodone Allergy Intermediate Vomiting Verified 01/04/24 15:03 amoxicillin Allergy Mild Swelling Verified 01/04/24 15:03 clindamycin Allergy Mild Swelling Verified 01/04/24 15:03 diatrizoate meglumine Allergy Mild Itching Verified 01/04/24 15:03 Tetanus Vaccines and Toxoid Allergy Mild Hives Verified 01/04/24 15:03 codeine AdvReac Intermediate Nausea & Verified 01/04/24 15:03 Vomiting benzonatate AdvReac Mild Vomiting Verified 01/04/24 15:03 [From Tessalon Perles] hydrochlorothiazide AdvReac Mild intolerance Verified 01/04/24 15:03 [From Dyazide] triamterene [From Dyazide] AdvReac Mild intolerance Verified 01/04/24 15:03 erythromycin base AdvReac Nausea Verified 01/04/24 15:03 Family History Mother , Age 76 heart attack Myocardial infarction Heart disease Cardiomyopathy Hypertension Osteoporosis Father , Heart Disease Age 86 Heart disease Parkinson disease CVA (cerebral vascular accident) Hypertension Unknown Thyroid disorder Stomach ulcer Surgical History History of appendectomy History of colonoscopy (~08/2020) History of coronary artery stent placement History of esophagogastroduodenoscopy (EGD) (~08/2020) History of hysterectomy History of thyroidectomy Presence of coronary angioplasty implant and graft (~09/01/15) Social History household members: spouse Smoking Status: Never smoker alcohol intake: current alcohol intake frequency: holidays/special occasions only Alcohol type: wine substance use type: does not use diet: other caffeine: Yes Type: coffee Number of servings: 3 what type of physical activity do you participate in: walking frequency: 3-4 times per week seatbelt use: always do you feel safe at home: Yes ROS ROS ED Constitutional Constitutional ED: Denies chills or fever(s) Eyes Eyes: Denies blurry vision, change in vision or discharge from eye(s) ENT ENT ED: Reports other Details: Sinus pressure ; Denies discharge from eye(s), rhinorrhea or sore throat Cardiovascular Cardiovascular: Denies chest pain or palpitations Respiratory/Chest Respiratory/Chest: Denies cough or dyspnea Gastrointestinal Gastrointestinal: Reports nausea; Denies abdominal pain or vomiting Musculoskeletal Musculoskeletal: Denies back pain or extremity pain Integumentary Denies Abrasions or rash Neurologic Neurologic: Reports headache(s); Denies weakness Psychiatric Psychiatric: Denies anxiety or depression Allergic/Immunologic Allergic/Immunologic ED: Denies lip swelling or urticaria EXAM Physical Exam Const Vital Signs: 01/04/24 15:00 01/04/24 17:00 01/04/24 17:09 Temperature 96 F L Temperature Source Temporal Pulse Rate 91 84 84 Respiratory Rate 16 16 20 H Blood Pressure 157/104 H 187/67 H 187/67 H Blood Pressure Mean 121 107 107 Blood Pressure Source Blood Pressure Position Blood Pressure Location Pulse Ox 97 95 96 Oxygen Delivery Method Room Air Room Air Room Air 01/04/24 17:11 01/04/24 17:14 01/04/24 17:30 Temperature Temperature Source Pulse Rate 81 70 Respiratory Rate 16 17 Blood Pressure 211/90 H Blood Pressure Mean 130 Blood Pressure Source Blood Pressure Position Blood Pressure Location Pulse Ox 95 97 Oxygen Delivery Method Room Air Room Air Room Air 01/04/24 17:59 01/04/24 17:46 01/04/24 18:00 Temperature Temperature Source Pulse Rate 64 72 76 Respiratory Rate 18 19 H 17 Blood Pressure 203/74 H 208/91 H 172/68 H Blood Pressure Mean 117 130 102 Blood Pressure Source Monitor Blood Pressure Position Blood Pressure Location Pulse Ox 95 95 97 Oxygen Delivery Method Room Air Room Air Room Air 01/04/24 18:08 01/04/24 18:10 01/04/24 18:16 Temperature 97.6 F L 98.6 F Temperature Source Temporal Oral Pulse Rate 73 78 Respiratory Rate 17 12 Blood Pressure 172/65 H 172/68 H 140/62 H Blood Pressure Mean 102 88 Blood Pressure Source Monitor Monitor Blood Pressure Position Semi-Fowlers Blood Pressure Location Right Arm Pulse Ox 97 97 Oxygen Delivery Method Room Air Room Air 01/04/24 18:31 01/04/24 18:33 01/04/24 18:46 Temperature 98.4 F 98 F Temperature Source Oral Oral Pulse Rate 77 75 70 Respiratory Rate 15 14 12 Blood Pressure 116/47 L 116/47 L 133/49 H Blood Pressure Mean 70 70 77 Blood Pressure Source Monitor Monitor Blood Pressure Position Semi-Fowlers Semi-Fowlers Blood Pressure Location Right Arm Right Arm Pulse Ox 94 94 97 Oxygen Delivery Method Room Air Room Air Room Air 01/04/24 19:01 01/04/24 19:16 01/04/24 19:26 Temperature 98.6 F 98.6 F 98.4 F Temperature Source Oral Oral Pulse Rate 70 76 68 Respiratory Rate 15 16 16 Blood Pressure 139/53 H 142/62 H 143/76 H Blood Pressure Mean 81 88 98 Blood Pressure Source Monitor Monitor Blood Pressure Position Semi-Fowlers Semi-Fowlers Blood Pressure Location Left Arm Right Arm Pulse Ox 97 96 95 Oxygen Delivery Method Room Air Room Air 01/04/24 19:31 01/04/24 20:01 01/04/24 20:31 Temperature 98.4 F 98.3 F 98.6 F Temperature Source Oral Oral Temporal Pulse Rate 71 80 77 Respiratory Rate 15 16 17 Blood Pressure 141/68 H 150/67 H 146/70 H Blood Pressure Mean 92 94 95 Blood Pressure Source Manual Monitor Monitor Blood Pressure Position Semi-Fowlers Semi-Fowlers Semi-Fowlers Blood Pressure Location Left Arm Right Arm Right Arm Pulse Ox 97 99 96 Oxygen Delivery Method Room Air Room Air Room Air 01/04/24 21:01 Temperature 98.6 F Temperature Source Temporal Pulse Rate 75 Respiratory Rate 18 Blood Pressure 154/71 H Blood Pressure Mean 98 Blood Pressure Source Monitor Blood Pressure Position Semi-Fowlers Blood Pressure Location Right Arm Pulse Ox 96 Oxygen Delivery Method Room Air Positive well nourished and well developed General Appearance ED: well developed HEENT Reports moist mucous membranes Eyes EOMs intact bilaterally Neck no meningeal signs Resp normal respiratory effort and clear to auscultation bilaterally Cardio regular rate and regular rhythm GI non-tender Palpation: soft Extremity normal to inspection Neuro oriented x3 and no sensory deficits noted Sensorium / Orientation: alert Motor Exam: strength 5/5 throughout Psych mental status grossly normal Skin Lesions: no lesions Rashes: no rashes MDM MDM MDM Narrative Medical decision making narrative: Patient was recently admitted November 12 through the for vertigo type symptoms with frequent falls. She had an MRI of the brain at that time that was unremarkable. Patient will undergo noncontrast head CT at this time to evaluatefor any evidence of bleed. She will be given IV fluids, Toradol, Reglan, Benadryl. History & Record Review Discussion w/independent historian: Patient Additional record(s) reviewed:: Prior inpatient record, Prior ED visit and Priorlabs Lab Data Attestation: I reviewed the patient's lab results. Labs: Laboratory Results - last 24 hr 01/04/24 01/04/24 17:07 17:10 WBC 5.1 RBC 4.17 L Hgb 12.5 Hct 36.0 L MCV 86.3 MCH 30.0 MCHC 34.7 RDW Std Deviation 36.3 RDW Coeff of Jase 11.5 L Plt Count 215 MPV 8.3 Immature Gran % (Auto) 0.400 Neut % (Auto) 67.1 Lymph % (Auto) 25.3 [place] % (Auto) 6.4 Eos % (Auto) 0.6 Baso % (Auto) 0.2 Absolute Neuts (auto) 3.4 Absolute Lymphs (auto) 1.30 Nucleated RBC % 0 PT 14.1 INR 1.1 APTT 39.5 H Sodium 138 Potassium 3.6 Chloride 106 Carbon Dioxide 27.0 Anion Gap 5 BUN 11 Creatinine 0.71 Estim Creat Clear Calc 47.17 Est GFR (MDRD) Af Amer 102 Est GFR (MDRD) Non-Af 84 BUN/Creatinine Ratio 15.4 Glucose 101 Calcium 7.9 L Troponin I High Sens 9 POC Glucose 102 Radiography Chest X-Ray - ED: 1 View, Read by ED Physician and - (Chronic changes with hyperinflation. No focal infiltrate.) Diagnostic Testing: Clinical Impression(s) from Imaging Studies Brain CT 01/04/24 16:53 IMPRESSION: No acute intracranial pathology. Age-related changes. Electronically Signed: Ludin Ware DO at 17:11 EDT , ADDENDUM: 01/04/24 1720 IMPRESSION: No acute intracranial pathology. Age-related changes. N.B. : The above Results were Read Back by Ludin Ware DO to Izabella Mendoza MD, and understanding confirmed on 01/04/2024 17:13:56 (ET). Electronically Signed: Ludin Ware DO at 17:11 EDT , ADDENDUM: 01/04/24 1737 IMPRESSION: No acute intracranial pathology. Age-related changes. N.B. : The above Results were Read Back by Ludin Ware DO to Izabella Mendoza MD, and understanding confirmed on 01/04/2024 17:30:25 (ET). Electronically Signed: Ludin Ware DO at 17:11 EDT , Head/Neck CTA 01/04/24 16:57 IMPRESSION: Status post right calcifications at the carotid bulbs and proximal internal carotid arteries with less than 50% luminal stenosis. No significant interval changes of the intracranial major arteries. Electronically Signed: Ludin Ware DO at 18:25 EDT , ADDENDUM: 01/04/24 1832 IMPRESSION: Status post right calcifications at the carotid bulbs and proximal internal carotid arteries with less than 50% luminal stenosis. No significant interval changes of the intracranial major arteries. N.B. : The above Results were Read Back by Ludin Ware DO to Izabella Mendoza MD, and understanding confirmed on 01/04/2024 18:25:52 (ET). Electronically Signed: Ludin Ware DO at 18:25 EDT , Chest X-Ray 01/04/24 17:30 IMPRESSION: Mild left basilar infiltration/atelectasis. Electronically Signed: Ludin Ware DO at 17:49 EDT Reading Location ID and State: [facility] / [place] Tel [phone], Service support , EKG Initial EKG: Attestation: I personally reviewed and interpreted this EKG as follows: Interpretation: Sinus Rhythm (Sinus at 64 with no acute ischemia.) Treatment and Re-Evaluation Narrative: Nursing staff came to me and asked me to reevaluate the patient just after she got her medications. They state that she was having expressive aphasia. When she went in the room to give the patient the medications she was speaking normally. When arrived at bedside patient is sitting upright in bed. She is having difficulty expressing what she wants to say. I asked her if she knows what she wants to say but cannot get it out she nods her head yes. She denies numbness or tingling to her extremities. She states her headache is not any worse than previous. Head neck examination reveals no evidence of facial droop. Sensation is normal on testing of the face. Patient is able to hold both arms up parallel to the bed without drift. She does have some baseline tremor. Patient has able to hold both legs off the bed to a count of 3 and they both slowly drift back to the bed. She reports normal sensation in her lower extremities. Stroke alert was initiated. Patient taken immediately for CT of the head along with CTA of the head and neck. On return to the emergency room patient was still having some expressive aphasiabut symptoms were somewhat improving. Neurologist from [facility] to evaluate the patient over the robot. She had conflicting results at times on her NIH scale, but overall scored approximately a 5. Although speech was improved she was not fluent. He did discuss with the patient the possibility that this is a medication reaction as she had just been given Toradol, Reglan, and Benadryl. He did offer TNK to her given her speech difficulties. She did agree to TNK, but had elevated blood pressure at the time. After 2 doses of IV labetalol she was initiated on a Cardene drip for BP control. When I reevaluated the patient her systolic pressure was 172. She stated that her headache was slightly worse at this time after had previously improved, but she did agree that her speech was improving. She still had slightloss of fluidity. We again discussed whether to give TNK or not with risks of bleeding. She agrees to go ahead and proceed with TNK. CT of the head shows no acute findings. CTA of the head and neck revealed some chronic changes with no acute findings. CBC was normal white count 5.1 with a hemoglobin of 12.5. Coags are unremarkable. Chemistry studies are normal. Troponin is 9. Portable chest x-ray per my interpretation reveals hyperinflation with no focal infiltrate. Radiology interpretation reviewed and agrees. Patient's blood pressure did drop down to 116 systolic on Cardene drip and it was therefore stopped. At reevaluation patient felt well and felt like her speech was continuing to improve. I will speak with hospitalist regarding admission. Critical Care Time Critical Care Time: Yes Critical care time (excluding procedures): 30-74 minutes (40 minutes), Discussing w/Patient &/or Family/Retail Account Specialist, Discussing w/Consultants, ArrangingAdmission or Transfer and Performing Direct Patient Care at Bedside Discharge Plan Dx/Rx/DC Orders Clinical Impression: Migraine, CVA (cerebral vascular accident) Disposition Disposition: Acute Care Hospital [facility] Discharge Date/Time: 01/04/24 21:54 What to do if you have Problems For any increased pain, shortness of breath, bleeding, nausea or vomiting, chestpain, or any unexpected problems, contact your Primary Care Provider. Call [facility] ([phone]) or report to the closest Emergency Room. Call 911 if necessary. 01/04/24 7090 <Electronically signed by Izabella Mendoza MD> Cosigner Signature (if applicable): CC: Dr. Armando Orozco MD ~ Signed [facility] Work Phone: [phone] Miscellaneous Notes* Telephone Encounter - Sarai Harp RN - 12/28/2023 2:20 PM EDT Spoke with patient. Given message from provider's office. Patient verbalizes understanding. Sarai Harp RN * Telephone Encounter - Kim Sena LPN - 12/22/2023 12:22 PM EDT TC to pt. LM to call office, ask for triage nurse to get results. Kim Sena LPN * Telephone Encounter - Emelia Lynn APRN.CNP - 12/22/2023 12:17 PM EDT Can you please call the patient and let her know that I reviewed her lab results. Labs were all relatively normal. Autoimmune workup was negative. She tested negative for lupus and rheumatoid arthritis. I would recommend that she keep scheduled appointment with neurology. Please let me know if she has any questions. Thank you Emelia Lynn APRN.FREDY documented in this encounterShel[facility]04-11-2024 Instructions* Patient Instructions* Emelia Lynn APRN.CNP - 12/21/2023 9:16 AM EDT Get labs completed Office will get notes from cardiology to verify medications Start Meloxicam 15 mg daily, this will help with pain. Take with food. You can take additional tylenol if needed. Keep up coming appointment with Dr. Granger Keep scheduled appointments with physical therapy Follow up pending test results. documented in this encounterSheltering [facility]04-11-2024 History of Present illness Narrative* Emelia Lynn APRN.CNP - 12/21/2023 8:40 AM EDT This is a 78 year old female who presents today with: Patient presents with: Follow Up: Hospital follow up HISTORY OF PRESENT ILLNESS: Bharti Akbar is a 78 year old female. Patient presents with: Follow Up: Hospital follow up HOSPITAL/ER FOLLOW UP: Reason for visit: Back Pain and headache Which facility: [facility] ER Date of visit: 11/13/2023 Diagnosis: Ataxia, balance disorder Testing done: EKG showed normal sinus rhythm, CTA head and neck shows no acute abnormalities. CBC normal, PT, PTT, INR normal. CMP was normal. Troponin negative. TSH was normal. Was admitted for MRI.MRI ordered lumbar spine which showed no evidence of acute fracture or other significant bony pathology. Multilevel spinal stenosis secondary to disc disease and bony hypertrophy most severe at [id number] on the right side. Brain MRI showed no acute disease. Cervical spine MRI showed neural foraminal narrowing on the right at C4-C5 and C5-C6 due to uncinate spondylosis. Discharged home and instructed to follow-up with her neurologist. Hospitalist recommending autoimmune test with PCP. Echo completed showed left ventricular ejection fraction is 65%. Mild aortic stenosis, AR. Stage I diastolicdysfunction suggestive mild heart failure. Treatment given: None Current symptoms: Has been having on low back pain. Has been taking Tylenol arthritis which has notbeen helpful. Feels like her gait is off balance. Feels like she is leaning to one side for a couple of days and then will lean to the other side. 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 Following with Dr. Granger, Neurology, next appt in January. Taking Aricept 5 mg daily. Refers that medication has been helpful for memory. Improvement with short term memory. Refers she has some difficulty sleeping due topain. Pain is constant. Has been considering getting a back brace/support for work. HTN: Per cardiology note at last office visit increased lisinopril 20 mg twice a day, stopped metoprolol and continue with the Coreg. Patient seemed confused about what medication to take. Refers that they stopped the lisinopril and she was taking amlodipine. Follows with [facility]. Has been doing aquatherapy about 3 weeks ago. Refers that she will be eventually transferred over to regular PT. 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 07/07/2015 HLD (hyperlipidemia) HTN (hypertension) Iron deficiency anemia due to chronic blood loss 03/06/2015 Kidney stone Lens replaced by other means - Right Eye 12/26/2014 Memory loss Osteoarthrosis, unspecified whether generalized or localized, other specified sites Other vitreous opacities - Both Eyes 07/07/2014 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 S/P laser cataract surgery - Right Eye 12/26/2014 S/P LASIK surgery of both eyes - Both Eyes 07/07/2014 Tear film insufficiency, unspecified 12/11/2014 Unspecified constipation PAST SURGICAL HISTORY Procedure Laterality Date APPENDECTOMY 1994 ARTHRP INTERPOS INTERCARPAL/METACARPAL JOINTS Right 10/07/2016 Right thumb CMC arthroplasty ; THYROIDECTOMY TOTAL OR COMPLETE 02/08/2012 COLONOSCOPY FLX DX W/COLLJ SPEC WHEN PFRMD 08/03/2005 Colonoscopy COLONOSCOPY GEN ANES 08/26/2020 Repeat in 5-10 years COLONOSCOPY W/BIOPSY SINGLE/MULTIPLE 06/19/2015 normal colon CORRJ HLX VLGS BNCTY SESMDC W/DOUBLE OSTEOTOMY 2003 RIGHT FOOT DILATION & CURETTAGE DX&/THER NONOBSTETRIC 1979 AFTER MISCARRAGE EGD 08/26/2020 EGD TRANSORAL BIOPSY SINGLE/MULTIPLE 06/19/2015 gastritis ESOPHAGOGASTRODUODENOSCOPY TRANSORAL DIAGNOSTIC 08/03/2005 EGD PAST SURGICAL HISTORY OF 1975 RECTAL WALL REPAIR PAST SURGICAL HISTORY OF 2002 Lasik Surgery on both eyes ([place]) PAST SURGICAL HISTORY OF 2010 broken neck PAST SURGICAL HISTORY OF 08/2015 Bare metal stent/ graft of heart x 1 PRQ CARDIAC STENT W/ANGIO 1 VSL 09/01/2015 Mid Lad TONSILLECTOMY PRIMARY/SECONDARY <AGE 12 TOTAL ABDOMINAL HYSTERECT W/WO RMVL TUBE OVARY 1994 Hysterectomy, TAHBSO XCAPSL CTRC RMVL INSJ IO LENS PROSTH W/O ECP 12/25/2014 Cataract Extraction with Femtosecond Laser (LenSx)-right eye ALLERGIES Contrast Dye [Iodine], Albuterol, Amoxil [Amoxicillin], Clindamycin, Codeine, DiatrizoateMeglumine, Dyazide [Triamterene-Hydrochlorothiazid], Erythromycin, Flexeril [Cyclobenzaprine], Oxycodone, Oxycontin [Oxycodone Hcl], Tessalon Perles [Benzonatate], Tetanus Vaccines And Toxoid, and Vicodin [Hydrocodone-Acetaminophen] MEDICATIONS Current Outpatient Medications Medication Sig atorvastatin (LIPITOR) 40 mg tablet AT BEDTIME carvedilol (COREG) 6.25 mg tablet Cholecalciferol, Vitamin D3, 50 mcg (2,000 unit) cap DAILY oxybutynin XL (DITROPAN XL) 5 mg 24 hr tablet Take 1 tablet by mouth once daily. tamsulosin (FLOMAX) 0.4 mg Take 1 capsule by mouth daily at bedtime. traZODone (DESYREL) 50 mg tablet Take 2 tablets by mouth daily at bedtime. donepezil (ARICEPT) 5 mg tablet Take 1 tablet by mouth daily at bedtime. levothyroxine (LEVOXYL) 100 mcg tablet Take 1 tablet by mouth once daily. Take on empty stomach. For Thyroid. aspirin, enteric coated (ASPIRIN, ENTERIC COATED) 81 mg EC tablet Take 1 tablet by mouth once daily. COMPOUNDED PRESCRIPTION Home blood pressure monitor. DX: Essential HTN I10 CENTRUM SILVER ORAL TAB Take one(1) tablet daily. No current facility-administered medications for this visit. FAMILY HISTORY Problem Relation Age of Onset Alzheimer's Disease Mother Heart Mother Heart Father 83 years old Hypertension Father Stroke Father Cataract Father other (parkinson's) Father Colon Cancer Maternal Aunt Diabetes Maternal Grandmother Diabetes Maternal Aunt other (ibs) Brother Heart Sister other (knee replacements) Sister other (cataract surgery) Sister Heart Sister Social History Tobacco Use Smoking status: Never Smokeless tobacco: Never Vaping Use Vaping Use: Never used Substance Use Topics Alcohol use: Yes Comment: special occasions Drug use: No Comment: coffee REVIEW OF SYSTEMS GENERAL: No weight loss, malaise or fevers/chills HEENT: Negative for frequent or significant headaches, No changes in hearing or vision. NECK: Negative for lumps, goiter, pain and significant neck swelling RESPIRATORY: Negative for cough, hemoptysis, wheezing, dyspnea or shortness of breath CARDIOVASCULAR: Negative for chest pain, leg swelling, orthopnea, or palpitations GI: No nausea, vomiting, or diarrhea/constipation. No hematochezia/melena. No heartburn or reflux symptoms. : No history of dysuria, frequency or incontinence MUSCULOSKELETAL: + Back pain SKIN: Negative for lesions, rash, and itching ENDOCRINE: Negative for cold or heat intolerance, polyuria, polydipsia and goiter NEURO: No history of headaches, syncope, paralysis, seizures or tremors MOOD: Negative for depression, anxiety, or suicidal ideation. EXAM: BP 140/80 Pulse 79 Resp 16 Wt 53.1 kg (117 lb) SpO2 98% BMI 21.06 kg/m PHYSICAL EXAM: General Appearance: Well appearing, alert, in no acute distress, well-hydrated, well nourished. Skin: Skin color, texture, turgor normal, no suspicious rashes or lesions. Head: Normocephalic, no masses, lesions, tenderness or abnormalities. Eyes: Anicteric sclera. Extraocular movements are intact. Lungs: Lungs clear to auscultation. No wheezing, rhonchi, rales. Heart: RRR without murmur, gallop, or rubs. No ectopy. Extremities: No deformities, edema, skin discoloration, clubbing or cyanosis. Good capillary refill. Musculoskeletal: No joint swelling, deformity, or tenderness. Peripheral Pulses: Normal, Capillary refill <2secs, strong peripheral pulses, Pulses palpable. Neurologic: Gait normal. Reflexes normal and symmetric. Sensation grossly intact. ASSESSMENT/PLAN: 1. Hospital discharge follow-up - ICD9: V67.59, ICD10: Z09 (primary diagnosis) - Still having ongoing pain since hospital discharge. 2. Ataxic gait - ICD9: 781.2, ICD10: R26.0 - Recommend continue with physical therapy. - Keep scheduled appointments with neurology. 3. Chronic midline low back pain without sciatica - ICD9: 724.2, 338.29, ICD10: M54.50, G89.29 - Start meloxicam 15 mg daily with food. - Continue with PT. 4. Myalgias - ICD9: 729.1, ICD10: M79.10 - SEDIMENTATION RATE, WESTERGREN - ELENI BLOOD - C-REACTIVE PROTEIN - RHEUMATOID FACTOR - COMPLETE BLOOD COUNT AND DIFFERENTIAL - COMPREHENSIVE METABOLIC PANEL 5. Essential hypertension - ICD9: 401.9, ICD10: I10 - Uncontrolled - Recommend home blood pressure monitoring, to bring results to next visit - Encouraged sodium restriction, DASH or Mediterranean diet - Recommend regular aerobic exercise - After visit was able to obtain last office visit with cardiology. Will be in touch with the patient to verify medication she should be taking. Follow-up pending test results or sooner as needed. Discussed treatment plan and patient voices understanding. Patient's questions answered appropriately. Medications and potential side effects were discussed and patient voices understanding. Emelia Lynn APRN.PHARMACOVIGILANCE SAFETY EXPERT This note was partially generated using [employer] voice recognition system. Note was reviewed for accuracy. There may be minor misspellings or grammar miscues with Dragon voice recognition. I spent a total of 60 minutes on the date of the service which included preparing to see the patient, [id number] patient care, completing clinical documentation, obtaining and/or reviewing separately obtained history, performing a medically appropriate examination, counseling and educating the pat ient/family/caregiver, ordering medications, tests, or procedures, and independently interpreting results (not separately reported). documented in this encounterSheltering [facility] Hospital04-09-2024 Miscellaneous Notes* Telephone Encounter - Sue Costa LPN - 12/19/2023 5:52 PM EDT Faxed RX PT to [facility] [phone]. Sue Costa LPN documented in this encounterSheltering [facility] Hospital03-15-2024 Miscellaneous Notes* Telephone Encounter - Breann Taylor OCCA - 11/24/2023 1:11 PM EDT TC to patient who states during OV [facility] discussed that he wanted patient to have therapy and she asked if she could have aquatic therapy to make it easier on joint for arthritis. She states she has been struggling since she got out of the hospital and thinks this would be best as the location is close and convenient for her. JOSELITO Acosta * Telephone Encounter - Vega Granger Jr., MD - 11/23/2023 9:26 PM EDT Please find out specific reason for aqua therapy. Vega Granger MD * Telephone Encounter - Sarai Harp RN - 11/23/2023 2:27 PM EDT Patient calling to request order for Aquatic Therapy be faxed to [facility] in [place]. . Sarai Harp RN documented in this encounterSheltering [facility] Hospital03-11-2024 History of Present illness Narrative* Armando Orozco MD - 11/20/2023 1:43 PM EDT Transitional Care Management TCM Eligibility Documentation The following information was gathered during patient outreach Date of Outreach: 11/16/2023 Outreach Attempt 1: Contact Made Date of Discharge 11/15/2023 Some recent data might be hidden Provider Documentation Bharti Akbar is a 78 year old female here today for a follow up from recent hospitalization. I have reviewed the patient's hospital course including discharge summary, discharge medications , and follow up needs with the patient and any family members present at today's visit. HPI 7 day TCM Admitted for feeling off balance, headaches, listing to either side. 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 Concern was for CVA or TIA. Hospital workup reviewed: MRI head unremarkable. Pt is feeling better. Has a lot of falls. She is supposed to be getting contacted to get into PT for falls and balance issues; looking for a location closer to home, [facility] in [place].. She wants to do water therapy, so is going to look for a place to do this closer home. She has been being treated for kidney stone. Has had BP running higher around 180-170/76. She does take BP medications. She is scheduled with [facility], Cardio. Having chronic headaches, sinus pressure, and jaw pain, thinks she has infection. PHYSICAL EXAMINATION BP 140/84 Pulse 62 Resp 16 Wt 54.3 kg (119 lb 9.6 oz) BMI 21.53 kg/m GENERAL: well appearing, alert, in no acute distress HEART: regular rate and rhythm. No murmur, rubs or gallops. LUNGS: clear to auscultation, no wheezing, rhonchi, or crackles ASSESSMENT/PLAN: 1. Balance problem - ICD9: 781.99, ICD10: R26.89 (primary diagnosis) PT Establish with Neuro at [facility] 2. Fibromyalgia - ICD9: 729.1, ICD10: M79.7 3. 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- ICD9: 414.01, ICD10: I25.10 Follow with Cardiology 4. Essential hypertension - ICD9: 401.9, ICD10: I10 - Controlled - Continue current medications - Recommend home blood pressure monitoring, to bring results to next visit - Encouraged sodium restriction, DASH or Mediterranean diet - Recommend regular aerobic exercise 5. Postsurgical hypothyroidism - ICD9: 244.0, ICD10: E89.0 - Instructed patient on importance of taking on an empty stomach either first thing in the morning or at bedtime. - continue current dose of Synthroid= TSH was normal in hospital 6. Kidney stone - ICD9: 592.0, ICD10: N20.0 Follow with Urology Follow up in 3 months I agree with the Chief Complaint, ROS, and Past Histories independently gathered by the clinical instructional support technician and the remaining scribed note accurately describes my personal service to the patient. Armando Orozco MD The documentation for this note was completed by Tahira Perla MA acting as scribe for Armando Orozco MD. November 20, 2023 1:50 PM. Tahira Perla MA documented [facility] History of Present illness Narrative* Armando Orozco MD - 11/16/2023 3:35 PM EST Noted Armando Orozco MD * Tahira Perla MA - 11/16/2023 11:34 AM EST TRANSITION CARE MANAGEMENT (TCM) INITIAL CONTACT Material Attendant Outreach Provider Action/FYI: 7 day TCM No new medications were started, no medications She feels her back pain is improving, she is not bent over oddly like she was. Is going to be off work all week, going to do some yard work and try to build up some strength from laying around. Initial contact with patient post discharge, spoke to patient 11/16/23. Patient identified by name and . TRANSITION CARE MANAGEMENT INITIAL OUTREACH DOCUMENTATION: Date of Outreach: 11/16/2023 Outreach Attempt 1: Contact Made Date of Discharge 11/15/2023 Some recent data might be hidden SUMMARY: -Pt discharged from [facility] on 11/15/23. -Admitted for: Ataxia Falls Balance disorder Do you have a hospital follow up appointment with your PCP? Appointment on 11/21/23 with Ernesto. Yes. Remind patient of appointment date, time, and location. If not within 14 calendar days of discharge - please reschedule accordingly. MEDICATIONS: Many patients have questions or concerns about their medications once they are home. Were you prescribed any new medications? No Were you told to hold any medications? No Were any of your medications discontinued? No Do you have any questions about getting or taking your medications? No Your discharge instructions/After visit Summary (AVS) are important in guiding you through the recovery process. Is there anything I might help you understand? No Do you have all the necessary equipment and supplies at home? Yes Medical records from recent hospitalization: Placed for provider to review documented in [facility] Consult note Author Stan Abad [facility] November 15, 2023 5:05pm Note Date/Time November 15, 2023 4:47 pm [facility] Medical Records Department [address] [place] [address] Consultation - Neurology 11/15/23 1639 MR#: [id number] Acct: [id number] Name: BHARTI AKBAR Rep #:[id number] : 1945 78 From: Stan Gar MD PCP: Dr. Armando Orozco MD Status:AD M IN Location: [place] [id number]- Assessment and Plan: Neuro Assessment/Plan BHARTI AKBAR is a 78 F with a medical history of carotid artery disease, memory problems, here for 2+ weeks of ataxia and gait difficulties. Diagnosis: multifactorial gait disturbance with clear correlation to work stressors and clear improvement on removal from this environment, with likely contributions from lumbar radiculopathy and vestibular dysfunction. MRIs are reassuring - no stroke, and based on time course this does not represent TIA either. Plan: - complete lumbar MRI to assess for severe foraminal narrowing - recommended she increase dietary salt intake as outpatient. Okay to use potassium salts as well. While salt can impact hypertension in a minority of thepopulation, she currently deliberately eats a low salt diet and is at greater risk for falls without salt - recommend close outpatient follow up with outpatient neurologist - recommend outpatient physical therapy - Safe to d/c from neurology perspective I personally attended this patient and spent a total time of 45 minutes evaluating this patient including clinical assessment, review of chart, medical history imaging, and determining appropriate treatment and workup. HPI Consult Data Date of Consult: 11/15/23 HPI Narrative HPI Narrative: BHARTI AKBAR, is a 78 F carotid artery disease, memory problems, PUD, GIB, hypothyroidism, diastolic dysfunction, palpitations, being evaluated by Teleneurology for 2+ weeks of ataxia and gait difficulties, with related problems of headache (currently remitted). Gait is currently much better, she says, and does typically get significantly better when she is not working. She does remark multiple falls over the last year, once in the shower and once while clmbing on short garden wall while gardening. These do not seem to be accompanied by syncope. She denies sciatica but dos have pressure in her back. Her drift to one side switches sides, she says: first was left-leaning, ,and then right. She works at [employer] she says after I'm working an hour and a half the sympttoms start...tighness in my back and right leg turns in... 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 She does not climb ladders or otherwise undertake risky ambulation at work. She notes that headache remitted rapidly in hospital and that gait is alsomarkedly improved, consonant with my exam today. She says she recently saw neurologist Dr. [facility] who prescribed donepezil and recommendedoutpatient MRI David brush, which she was unable to schedule and has never had. She does She says who presents a medical history of carotid arterydisease, memory problems, PUD, GIB, hypothyroidism, diastolic dysfunction, palpitations, being evaluated by Teleneurology for 2+ weeks of ataxia and gait difficulties, with related problems of headache. She explicitly and repeatedly explains that gait problems worsened in the context of greatly increased stress at work. She says she mostly eats salad and chicken at home. Deliberate low salt, low fatdiet. 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 Lung nodule, multiple Migraines Non-smoker Nonspecific abnormal serum enzyme levels Osteoarthritis Palpitations Peptic ulcer disease Presence of stent in coronary artery (~04/19/21) Seasonal allergies Segmental colitis associated with diverticulosis Thyroid dysfunction TIA (transient ischemic attack) Ventricular hypertrophy Vision problem Home Medications levothyroxine 100 mcg tablet 100 mcg PO DAILY thyroid 04/28/21 [History Last Taken 07/28/21] trazodone 50 mg tablet 100 mg PO QHS sleep 05/04/22 [History Last Taken Unknown] potassium chloride 20 mEq tablet,extended release 20 meq PO DAILY supplement #90tabs 05/26/22 [Rx Last Taken Unknown] carvedilol 6.25 mg tablet (Coreg) 6.25 mg PO BID blood pressure #60 tabs 10/16/23 [Rx Last Taken Unknown] colestipol 1 gram tablet (Colestid) 1 g PO BID cholesterol 10/16/23 [History Last Taken Unknown] donepezil 5 mg tablet 5 mg PO DAILY memory 10/16/23 [History Last Taken Unknown] lisinopril 10 mg tablet 20 mg PO DAILY blood pressure 10/16/23 [History Last Taken Unknown] atorvastatin 40 mg tablet 40 mg PO QHS cholesterol 11/13/23 [History Last Taken Unknown] famotidine 20 mg tablet 20 mg PO DAILY reflux 11/13/23 [History Last Taken Unknown] metoprolol tartrate 25 mg tablet 25 mg PO Q12H blood pressure 11/13/23 [History Last Taken Unknown] tamsulosin 0.4 mg capsule 0.4 mg PO DAILY prostate 11/13/23 [History Last Taken Unknown] Allergy/AdvReac Type Severity Reaction Status Date / Time albuterol Allergy Intermediate GI upset Verified 11/13/23 13:02 cyclobenzaprine Allergy Intermediate mental Verified 11/13/23 13:02 [From Flexeril] status change hydrocodone [From Vicodin] Allergy Intermediate muscle Verified 11/13/23 13:02 twitching oxycodone Allergy Intermediate Vomiting Verified 11/13/23 13:02 amoxicillin Allergy Mild Swelling Verified 11/13/23 13:02 clindamycin Allergy Mild Swelling Verified 11/13/23 13:02 diatrizoate meglumine Allergy Mild Itching Verified 11/13/23 13:02 Tetanus Vaccines and Toxoid Allergy Mild Hives Verified 11/13/23 13:02 codeine AdvReac Intermediate Nausea & Verified 11/13/23 13:02 Vomiting benzonatate AdvReac Mild Vomiting Verified 11/13/23 13:02 [From Tessalon Perles] hydrochlorothiazide AdvReac Mild intolerance Verified 11/13/23 13:02 [From Dyazide] triamterene [From Dyazide] AdvReac Mild intolerance Verified 11/13/23 13:02 erythromycin base AdvReac Nausea Verified 11/13/23 13:02 Family History Mother , Age 76 heart attack Myocardial infarction Heart disease Cardiomyopathy Hypertension Osteoporosis Father , Heart Disease Age 86 Heart disease Parkinson disease CVA (cerebral vascular accident) Hypertension Unknown Thyroid disorder Stomach ulcer Surgical History History of appendectomy History of colonoscopy (~08/2020) History of coronary artery stent placement History of esophagogastroduodenoscopy (EGD) (~08/2020) History of hysterectomy History of thyroidectomy Presence of coronary angioplasty implant and graft (~09/01/15) Social History household members: spouse Smoking Status: Never smoker alcohol intake: current alcohol intake frequency: holidays/special occasions only Alcohol type: wine substance use type: does not use diet: other caffeine: Yes Type: coffee Number of servings: 3 what type of physical activity do you participate in: walking frequency: 3-4 times per week seatbelt use: always do you feel safe at home: Yes Vital Signs Vital Signs Vital Signs: 11/14/23 20:48 11/14/23 22:00 11/14/23 22:00 Temperature 97.7 F L Temperature Source Axillary Pulse Rate 75 Pulse Strength Normal (2+) Respiratory Rate 18 Respiratory Effort Normal Non-Labored Respiratory Depth Normal Respiratory Pattern Normal Blood Pressure 134/85 H Blood Pressure Mean 101 Blood Pressure Source Monitor Blood Pressure Position Semi-Fowlers Blood Pressure Location Right Arm Pulse Ox 98 Oxygen Delivery Method Room Air Room Air 11/15/23 00:31 11/15/23 00:30 11/15/23 06:02 Temperature 97.9 F 98.5 F Temperature Source Oral Oral Pulse Rate 72 65 Pulse Strength Respiratory Rate 18 18 Respiratory Effort Respiratory Depth Respiratory Pattern Blood Pressure 135/57 H 119/46 L Blood Pressure Mean 83 70 Blood Pressure Source Monitor Monitor Blood Pressure Position Semi-Fowlers Semi-Fowlers Blood Pressure Location Right Arm Right Arm Pulse Ox 94 97 Oxygen Delivery Method Room Air Room Air Room Air 11/15/23 06:58 11/15/23 13:00 11/15/23 14:00 Temperature 98.7 F Temperature Source Oral Pulse Rate 88 Pulse Strength Respiratory Rate 16 Respiratory Effort Normal Non-Labored Respiratory Depth Normal Respiratory Pattern Normal Blood Pressure 154/62 H Blood Pressure Mean 92 Blood Pressure Source Monitor Blood Pressure Position Semi-Fowlers Blood Pressure Location Right Arm Pulse Ox 93 97 Oxygen Delivery Method Room Air Room Air Room Air Weight Weight: 52.662 kg Body Mass Index (BMI) 20.5 EEG Results Procedure Details EEG Procedure Details: BHARTI AKBAR is a 78 year old F with a past medical history of , who presents for evaluation of Electroencephalogram on DATE at TIME NIHSS NIHSS Nursing Documentation NIHSS Nursing Documentation: NIHSS: Ischemic Stroke/TIA Start: 11/13/23 20:39 Text: For PCU Patients: NIH and Neuro Check every 4 Status: Complete hours and PRN Freq: [id number] Protocol: Activity Type Activity Date Activity User E-sign Co-sign Detail Recorded Client Recorded Date Recorded By Document 11/14/23 20:48 DC Desktop 11/14/23 20:58 DC 11/14/23 20:48 NIH Stroke Scale [NIHSS] A score of 0 is normal or asymptomatic . Total possible score is 42. Inpatient: RN or Physician to activate a stroke alert for onset of new stroke symptoms or with NIHSS increase >/= 3 points. Following change in neurological status, NIHSS will be performed per physician order or more frequently PRN. -1a. Level of Consciousness Alert; keenly responsive -1b. LOC Questions Answers BOTH questions correctly. -1c. LOC Commands Performs both tasks correctly . -2. Best Gaze Normal -3. Visual No visual loss -4. Facial Palsy Minor paralysis (flattened nasolabial fold , asymmetry on smiling) -5a. Left Arm No drift; arm holds 90 (or 45 ) degrees for full 10 seconds -5b. Right Arm No drift; arm holds 90 (or 45 ) degrees for full 10 seconds -6a. Left Leg No drift; leg holds 30-degree position for full 5 seconds -6b. Right Leg No drift; leg holds 30-degree position for full 5 seconds -7. Limb Ataxia Absent -8. Sensory Normal; no sensory loss -9. Best Language No aphasia; normal -10. Dysarthria Normal -11. Extinction and Inattention No abnormality -Total 1 Query Text:A score of 0 is normal or asymptomatic. Total possible score is 42 . ED: Notify Physician for NIHSS increase by > / = 3 points. Inpatient: RN or Physician to activate a stroke alert for NIHSS increase of > / = 3 points. Coma Scale [Assess] -Eye Opening Spontaneous -Motor Obeys Commands -Verbal Oriented [Total] -Coma Scale Total 15 NIHSS: Ischemic Stroke/TIA Start: 11/13/23 20:39 Text: For ICU Patients: NIH sroke scale at Status: Complete presentation and every 2 hours or with change in RN caregiver Freq: [id number] Protocol: Activity Type Activity Date Activity User E-sign Co-sign Detail Recorded Client Recorded Date Recorded By Document 11/14/23 08:05 SS Desktop 11/14/23 08:17 SS 11/14/23 08:05 NIH Stroke Scale [NIHSS] A score of 0 is normal or asymptomatic . Total possible score is 42. Inpatient: RN or Physician to activate a stroke alert for onset of new stroke symptoms or with NIHSS increase >/= 3 points. Following change in neurological status, NIHSS will be performed per physician order or more frequently PRN. -1a. Level of Consciousness Alert; keenly responsive -1b. LOC Questions Answers BOTH questions correctly. -1c. LOC Commands Performs both tasks correctly . -2. Best Gaze Normal -3. Visual No visual loss -4. Facial Palsy Minor paralysis (flattened nasolabial fold , asymmetry on smiling) -5a. Left Arm No drift; arm holds 90 (or 45 ) degrees for full 10 seconds -5b. Right Arm No drift; arm holds 90 (or 45 ) degrees for full 10 seconds -6a. Left Leg No drift; leg holds 30-degree position for full 5 seconds -6b. Right Leg No drift; leg holds 30-degree position for full 5 seconds -7. Limb Ataxia Present in 1 limb -8. Sensory Normal; no sensory loss -9. Best Language No aphasia; normal -10. Dysarthria Normal -11. Extinction and Inattention No abnormality -Total 2 Query Text:A score of 0 is normal or asymptomatic. Total possible score is 42 . ED: Notify Physician for NIHSS increase by > / = 3 points. Inpatient: RN or Physician to activate a stroke alert for NIHSS increase of > / = 3 points. Physical Exam Neuro Neuro Narrative: Examined over video with assistance of nursing. AOx3, naming and repetition intact, fund of knowledge intact, able and appropriate historian. Gait slow but without gross disequilibrium. No foot drop. No en bloc turn or difficulty with initiation. Can transition independently. CN II-XII intact, 5/5 strength SA/EE/EF, psychology technician; 5/5 ankle DF/PF. Left sided hip flexion is stronger on direct comparison to right, which is still antigravity. Heel to grande poor LS and RS. Crossed commands intact, as is finger to nose and finger to ear. Finger tapping is slow. Sensation intact to light touch in all four extremities. DTRs intact at patellas and ankles bilaterally. Lab / Micro Data 11/14/23 06:45 11/15/23 06:50 Labs: Laboratory Results - last 24 hr 11/14/23 14:20: Syphilis Total Ab Non-reactive, HIV 1&2 Antibody Non-Reactive 11/15/23 06:50: Sodium 142, Potassium 4.2, Chloride 110 H, Carbon Dioxide 28.0, Anion Gap 4 L, BUN 15, Creatinine 0.87, Estim Creat Clear Calc 43.37, Est GFR (MDRD) Af Amer 81, Est GFR (MDRD) Non-Af 67, BUN/Creatinine Ratio 17.2, Glucose 103, Hemoglobin A1c 5.0, Calcium 8.5, TSH 2.72, Free T4 1.27 Imaging Radiology Impression Thoracic Spine MRI 11/14/23 13:31 IMPRESSION: Moderate kyphosis. No acute disease. Electronically Signed: Brian Ng MD at 21:36 EST Reading [facility] and [facility] Tel , Service support , Brain MRI 11/14/23 17:30 IMPRESSION: No acute disease Electronically Signed: Brian Ng MD at 21:52 EST Reading Location ID and State: [place] Tel , Service support , Cervical Spine MRI 11/14/23 17:30 IMPRESSION: Neural foraminal narrowing on the right at C4-5 and C5-6 due to uncinate spondylosis Electronically Signed: Brian Ng MD at 21:41 EST Reading Location ID and State: [facility] / [place] Tel , Service support , Active Medications Active Medications Active Medications: Current Medications Generic Name Dose Route Start Last Admin Trade Name Freq PRN Reason Stop Dose Admin Acetaminophen 650 mg 11/13/23 20:39 11/14/23 16:28 Acetaminophen 325 Mg Tablet PO 650 mg Q4H PRN PRN Administration Pain 1-10 Or Fever>99.6 Aspirin 81 mg 11/14/23 08:00 11/15/23 09:17 Aspirin 81 Mg Tab.Chew PO 81 mg BREAKFAST TRINITY Administration Atorvastatin Calcium 40 mg 11/13/23 22:00 11/14/23 21:00 Atorvastatin Calcium 40 Mg Tablet PO 40 mg QHS TRINITY Administration Colestipol HCl 1 gm 11/13/23 22:00 11/15/23 09:17 Colestipol 1 Gm Tablet PO 1 gm BID TRINITY Administration Donepezil HCl 5 mg 11/14/23 10:00 11/15/23 09:17 Donepezil Hcl 5 Mg Tablet PO 5 mg DAILY TRINITY Administration Enoxaparin Sodium 40 mg 11/14/23 10:00 11/15/23 09:17 Enoxaparin 40 Mg/0.4 Ml Syringe SC 40 mg DAILY TRINITY Administration Famotidine 20 mg 11/14/23 10:00 11/15/23 09:17 Famotidine 20 Mg Tablet PO 20 mg DAILY TRINITY Administration Hydralazine HCl 5 mg 11/13/23 20:39 Hydralazine 20 Mg/Ml Vial IV Q30M PRN to maintain BP goals Sodium Chloride 250 mls @ 15 mls/hr 11/13/23 21:15 IV .[id number] PRN Additional IVPB Infusion Sodium Chloride 250 mls @ 15 mls/hr 11/13/23 21:15 IV .[id number] PRN Saline Flush Thiamine HCl 250 mg/ Sodium 52.5 mls @ 200 mls/hr 11/15/23 14:00 11/15/23 15:34 Chloride IV 11/18/23 06:16 Infused Q8H TRINITY Infusion Labetalol HCl 10 - 20 mg 11/13/23 20:39 Labetalol (Prefilled) 20 Mg/4 Ml IV Q10M PRN PRN to Maintain BP Goals Levothyroxine Sodium 100 mcg 11/14/23 06:00 11/15/23 06:04 Levothyroxine 100 Mcg Tablet PO 100 mcg 0600 TRINITY Administration Melatonin 3 mg 11/13/23 20:39 Melatonin 3 Mg Tablet PO QHS PRN PRN INSOMNIA Metoclopramide HCl 5 mg 11/15/23 12:20 11/15/23 12:45 Metoclopramide 10 Mg/2 Ml Vial IV 5 mg Q6H PRN Administration nausea Ondansetron HCl 4 mg 11/15/23 14:32 Ondansetron 4 Mg/2 Ml Vial IV Q6H PRN PRN NAUSEA/VOMITING Senna/Docusate Sodium 2 tablet 11/13/23 20:39 Senna/Docusate Sodium 1 Tablet PO BID PRN PRN Constipation Sodium Chloride 10 - 40 ml 11/13/23 21:15 11/15/23 12:46 0.9% Saline Lock 10 Ml Syringe IV 10 ml UD PRN Administration SALINE FLUSH Tamsulosin HCl 0.4 mg 11/14/23 10:00 11/15/23 09:17 Tamsulosin Hcl 0.4 Mg Capsule PO 0.4 mg DAILY TRINITY Administration Trazodone HCl 100 mg 11/13/23 22:00 11/14/23 21:00 Trazodone 100 Mg Tablet PO 100 mg QHS TRINITY Administration 11/15/23 1705 <Electronically signed by Stan Gar MD> Cosigner Signature (if applicable): CC: Minoo Silver; Katarzyna Brock; Stan Abad; Anabell Bang MD; Jennifer Gonzalez MD; Jonny Young MD; Dr. Vanessa Waldron MD; Dr. Freddy Buchanan MD; Dr. Hannah Cobos MD; Dr. Joselyn Meadows MD; Dr. Donald Ward MD; Dr. Tahira Meadows DO; Dr. Armando Orozco MD; Dr. Federico Jones DO; Dr. Little Aden MD; Dr. Raysa Hutton MD; Dr. Sabi Stout MD; Dr. Fareed Wagoner MD; Dr. Letha Meadows MD; Angie Cook DO; Kelby Cordoba MD~ Signed [facility] Work Phone: 1(181) 206-821703-06-2024 Discharge summary Author Jose Ortega [facility] November 15, 2023 3:23pm Note Date/Time November 15, 2023 3:21 pm [facility] System Medical Records Department [facility] [address] Instructions for Home/Discharge Instructions 11/15/23 1520 MR#: [id number] Acct: [id number] Name: BHARTI AKBAR Rep #:[id number] : 1945 78 From: Jose Salazar PCP: Dr. Armando Orozco MD Status:AD M IN Discharge Instructions Diet Discharge Diet: No restrictions Activity Discharge Activity: Return to Normal Activity Weight Bearing Status: Weight bearing as tolerated Dressing / Incision Call your doctor if you observe: Fever of 101 or Higher, Coldness, Increased Pain, Numbness or Tingling, Change in Color, Inability to urinate, Inability to have a bowel movement, Using more than 1 pad per hour, Shortness of breath, Dizziness, Fainting spells, Swelling in the ankles, Chest pain, Prolonged hiccupping, Increased palpitations (irregular heartbeat) and Calf discomfort Follow Up Care When: IN 2 WEEKS Test Results: Test results from this visit will be discussed in further detail at your follow- up appointment, if applicable. Discharge Plan Admission Admit Date/Time: 11/13/23 18:04 Primary Reason for Your Visit: Ataxic gait. Attending Provider: Jose Ortega Primary Care Provider: Armando Orozco Consulting Providers: Jonny Young; Vanessa Waldron; Jennifer Gonzalez; Minoo Silver; Anabell Bang; Freddy Buchanan; Hannah Cobos; Donald Ward; Joselyn Meadows; Angie Cook; Federico Jones; Katarzyna Brock; Raysa Hutton; Little Aden; Stan Gar; Sabi Stout; Fareed Wagoner; Letha Meadows; Kelby Cordoba;Tahira Meadows Discharge Orders/Prescriptions Prescriptions: Continued colestipol [Colestid] 1 gram tablet 1 g PO BID lisinopril 10 mg tablet 20 mg PO DAILY donepezil 5 mg tablet 5 mg PO DAILY carvedilol [Coreg] 6.25 mg tablet 6.25 mg PO BID Qty: 60 11RF Rx Instructions: must administer with a meal/food trazodone 50 mg tablet 100 mg PO QHS Patient Comments: SLEEP atorvastatin 40 mg tablet 40 mg PO QHS metoprolol tartrate 25 mg tablet 25 mg PO Q12H tamsulosin 0.4 mg capsule 0.4 mg PO DAILY famotidine 20 mg tablet 20 mg PO DAILY levothyroxine 100 mcg tablet 100 mcg PO DAILY potassium chloride 20 mEq tablet extended release 20 meq PO DAILY Qty: 90 3RF Hold Instructions: PCP stopped, will see how BMP is in 2 weeks Rx Instructions: Take 1 tablet by mouth once daily Referrals / Follow Up: Armando Orozco MD [Primary Care Provider] - Disposition Disposition (needs filled in before D/C Order can be placed): Home, Self Care 11/15/23 1523<Electronically signed by Jose Ortega MD>Jose Ortega MD CC: Minoo Silver; Katarzyna Brock; Stan Abad; Anabell Bang MD; Jennifer Gonzalez MD; Jonny Young MD; Dr. Vanessa Waldron MD; Dr. Freddy Buchanan MD; Dr. Jessica MD; Dr. Joselyn Meadows MD; Dr. Donald Ward MD; Dr. Tahira Meadows DO; Dr. Armando Orozco MD; Dr. Federico Jones DO; Dr. Little Aden MD; Dr. Raysa Hutton MD; Dr. Sabi Stout MD; Dr. Fareed Wagoner MD; Dr. Letha Meadows MD; Angie Cook DO; Kelby Cordoba MD ~ Signed [facility] Work Phone: 1(953) 131-756103-06-2024 Progress note Author [facility] November 15, 2023 2:07pm Note Date/Time November 15, 2023 2:07 pm [facility] System Medical Records Department [address] [place] [id number] Progress Note - Hospitalist 11/15/23 1401 MR#: [id number] Acct: [id number] Name: BHARTI AKBAR Rep #:[id number] : 1945 78 From: Jose Salazar PCP: Dr. Armando Orozco MD Status:AD M IN Location: [facility] [id number]- [id number] Reason for Visit Reason for Visit: Diagnoses Dorsalgia, unspecified (11/13/23) Cardiac murmur, unspecified (11/13/23) Other abnormalities of gait and mobility (11/13/23) Unspecified abnormalities of gait and mobility (11/13/23) Ataxia, unspecified (11/13/23) Other lack of coordination (11/13/23) Other amnesia (11/13/23) Unspecified fall, initial encounter (11/13/23) Objective Data Objective Data Vital Signs: Vital Signs Temp Pulse Resp BP Pulse Ox O2 Del Method 98.5 F 65 18 119/46 L 93 Room Air 11/15/23 06:02 11/15/23 06:02 11/15/23 06:02 11/15/23 06:02 11/15/23 06:58 11/15/23 06:58 Oxygen Delivery Method Room Air Weight: 116 lb 1.597 oz Body Mass Index (BMI) 20.5 Intake & Output: Intake and Output for Last 24 Hours 11/13/23 11/14/23 11/15/23 23:59 23:59 23:59 Intake Total 1130 / 1130 55 / 55 Balance 1130 / 1130 55 / 55 Lab / Micro Data 11/14/23 06:45 11/15/23 06:50 Labs: Laboratory Results - last 24 hr 11/14/23 14:20: ESR 5, C-React Prot Ext Range < 2.90, Vitamin B12 356, Folate 36.10, Syphilis Total Ab Non-reactive, HIV 1&2 Antibody Non-Reactive 11/15/23 06:50: Sodium 142, Potassium 4.2, Chloride 110 H, Carbon Dioxide 28.0, Anion Gap 4 L, BUN 15, Creatinine 0.87, Estim Creat Clear Calc 43.37, Est GFR (MDRD) Af Amer 81, Est GFR (MDRD) Non-Af 67, BUN/Creatinine Ratio 17.2, Glucose 103, Hemoglobin A1c 5.0, Calcium 8.5, TSH 2.72, Free T4 1.27 Radiography Diagnostic Testing: Radiology Impression Thoracic Spine MRI 11/14/23 13:31 IMPRESSION: Moderate kyphosis. No acute disease. Electronically Signed: Brian Ng MD at 21:36 EST , Brain MRI 11/14/23 17:30 IMPRESSION: No acute disease Electronically Signed: Brian Ng MD at 21:52 EST Reading Location ID and State: [facility] / [place] Tel , Service support , Cervical Spine MRI 11/14/23 17:30 IMPRESSION: Neural foraminal narrowing on the right at C4-5 and C5-6 due to uncinate spondylosis Electronically Signed: Brian Ng MD at 21:41 EST Reading Location ID and State: [facility] / [place] Tel , Service support , Physical Exam Narrative Back pain is much better. She can walk without much ataxic gait. Patient she states at the end of her shift she feels more fatigued and her speech becomes more slow, tongue dry and problem with articulation. Physical exam General: Alert, Oriented x3, Cooperative HEENT: Atraumatic, PERRLA, EOMI, Normocephalic Oral: No Gingival or Mucosal Lesions/ Ulcerations Neck: Supple, No JVD, Negative Carotid Bruits Chest wall/Lungs: Air entry diminished in bilateral lung bases. No crepitation/rhonchi Cardiovascular: Regular rate, Regular Rhythm, Normal S1, Normal S2, systolic murmur over right second ICS in the Spee Abdomen: Bowel Sounds Present, Soft, Non Tender, Non-Distended : No dysuria. No renal angle tenderness. No suprapubic tenderness. Extremities: No edema, Capillary Refill Less than 3 Seconds Skin: No rashes, No breakdown Musculoskeletal: Increased muscle stiffness, hypertonia at knee and hip joints. No tenderness over lumbar thoracic spine or paraspinal muscles. Neurological: Cranial nerves II-XII grossly intact, Knee jerk 3+. Muscle strength decreased 4/5 at knees and hip joints. No lurching gait or truncal ataxia observed during walking. Psych/Mental Status: Normal Affect, Appropriate. Assessment & Plan Assessment/Plan (1) Ataxia: (2) Falls: (3) Balance disorder: PLAN: Plan This 78-year-old female came to ED with low back pain and headache and recurrentfalls. Patient also has gait incoordination/ataxia, falling on the left side, sleep within the last 1 to 2 months, memory loss and dysmetria. LK W 20 weeks ago 1. Gait instability/truncal ataxia, dysmetria with features concerning for subacute cerebellar ataxia: Patient is admitted in PCU. Seen by neurologist. Continue aspirin 81 mg daily. MRI brain with and without contrast along with cervical and thoracic spine. High-dose thiamine for possible Warnicke, 500 mg IV every 8 hourly for 1 day, to 250 mg IV 8 hourly for 3 days and then 100 mg daily afterwards. Ordered, labwork to send from serum: thiamine, b12, celiac disease testing, ELENI with reflex, ssa/ssb, sypillis, HIV, copper, Hba1c, TSH, antithyroglobulin and antithyroid peroxidase antibody. -may need LP/ further testing based upon results of MR 3/: Patient had brain, C-spine and thoracic spine MRI reported no acute findingbut chronic finding of mild foraminal narrowing and cervical spine and thoracic kyphosis due to chronic degenerative arthritis changes. MRI brain reported normal. Lab tests are ordered. Patient was walked she walks slow but not much swaying to one side or ataxia. Yesterday also patient was evaluated by PT with only contact-guard and felt like satisfactory. Neurologist follow-up was done and requested MRI lumbar spine with and without contrast which is ordered. 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 Vitamin B12 low normal 356, folate, TSH, free T4 normal limit. Fasting profile LDL 54 HDL 68. CRP normal. A1c 5.0. Might go home today later onOther tests are pending. Systolic murmur 2D echo: The left ventricular ejection fraction is 65 %. Mild aortic stenosis, AR. Bubble contrast study negative for PFO/ASD. Stage I diastolic dysfunction suggestive of mild HFpEF. Chronic low back pain with radicular symptoms: She states that her pain is mainly restricted to lower back does not radiate to lower thigh or knee but feels more like a spasm. No acute change. Does not seem sciatica type pain. No change in bowel bladder function. -Recommend proceeding with outpatient lumbar spine MRI as previously ordered CAD/HPL/HTN/carotid artery disease -Previous PCI in 2015 -Patient currently not on any antiplatelet therapy but will start aspirin for the above -Continue home atorvastatin and check lipids -Continue home colestipol -Hold home antihypertensives until stroke can be ruled out then reinitiate if negative -PRNs per stroke protocol are available GERD/history of peptic ulcer disease -Continue home famotidine Hypothyroidism -Continue home levothyroxine TSH free T4 and anti-TPO antibodies ordered Memory impairment -Continue home donepezil DVT prophylaxis -Lovenox daily CODE STATUS -Full code is verified on admission Total time of the visit including total time spent in counseling or coordinationof care, (more than 50% of the total time, spent in obtaining medical information from nurses and other ancillary care providers,explaining to the patient about labs, imaging, diagnosis and management of active complex medical conditions), complete neuroexam, discussion with neurologist, review of labs andimaging is 40 minutes. Clinical Impression(s) from Imaging Studies Head/Neck CTA 11/13/23 14:48 IMPRESSION: No acute intracranial findings. No significant major vessel vaso-occlusive disease in the head or neck. No significant interval change from the prior study. Electronically Signed: Aris Soares MD at 16:44 EST , Chest X-Ray 11/13/23 16:05 IMPRESSION: No radiographic evidence of acute cardiopulmonary disease. Electronically Signed: Aris Soares MD at 17:13 EST , Echocardiogram 11/13/23 18:12 Interpretation Summary The left ventricular ejection fraction is 65 %. Stage 1 diastolic dysfunction. Mild aortic stenosis. Mild (1+) aortic valve insufficiency. Bubble contrast study is negative for PFO/ASD. The study was technically difficult. Thoracic Spine MRI 11/14/23 13:31 IMPRESSION: Moderate kyphosis. No acute disease. Brain MRI 11/14/23 17:30 IMPRESSION: No acute disease Cervical Spine MRI 11/14/23 17:30 IMPRESSION: Neural foraminal narrowing on the right at C4-5 and C5-6 due to uncinate spondylosis Electronically Signed: Brian Ng MD at 21:41 EST , Charges/Coding Visit Charges Inpatient E&M: 52531 Subs Hosp L2 11/15/23 1407 <Electronically signed by Jose Ortega MD> Cosigner Signature (if applicable): CC: ~ Signed [facility] Work Phone: [phone] 264-653603-06-2024 Progress note Author Jose Ortega [facility] November 15, 2023 8:31am Note Date/Time November 15, 2023 8:31 am [facility] Medical Records Department [address] [place] [address] [place] [address] Progress Note - Hospitalist 11/15/23824 MR#: [id number] Acct: [id number] Name: BHARTI AKBAR Rep #:[id number] : 1945 78 From: Jose Salazar PCP: Dr. Armando Orozco MD Status:AD M IN Location: [facility] [id number] Reason for Visit Reason for Visit: Diagnoses Dorsalgia, unspecified (11/13/23) Cardiac murmur, unspecified (11/13/23) Other abnormalities of gait and mobility (11/13/23) Unspecified abnormalities of gait and mobility (11/13/23) Ataxia, unspecified (11/13/23) Other lack of coordination (11/13/23) Other amnesia (11/13/23) Unspecified fall, initial encounter (11/13/23) Objective Data Objective Data Vital Signs: Vital Signs Temp Pulse Resp BP Pulse Ox O2 Del Method 98.5 F 65 18 119/46 L 97 Room Air 11/15/23 06:02 11/15/23 06:02 11/15/23 06:02 11/15/23 06:02 11/15/23 06:02 11/15/23 06:02 Oxygen Delivery Method Room Air Weight: 116 lb 1.597 oz Body Mass Index (BMI) 20.5 Intake & Output: Intake and Output for Last 24 Hours 11/13/23 11/14/23 11/15/23 23:59 23:59 23:59 Intake Total 1130 / 1130 55 / 55 Balance 1130 / 1130 55 / 55 Lab / Micro Data 11/14/23 06:45 11/15/23 06:50 Labs: Laboratory Results - last 24 hr 11/14/23 14:20: ESR 5, C-React Prot Ext Range < 2.90, Vitamin B12 356, Folate 36.10, Syphilis Total Ab Non-reactive, HIV 1&2 Antibody Non-Reactive 11/15/23 06:50: Sodium 142, Potassium 4.2, Chloride 110 H, Carbon Dioxide 28.0, Anion Gap 4 L, BUN 15, Creatinine 0.87, Estim Creat Clear Calc 43.37, Est GFR (MDRD) Af Amer 81, Est GFR (MDRD) Non-Af 67, BUN/Creatinine Ratio 17.2, Glucose 103, Calcium 8.5, TSH 2.72, Free T4 1.27 Radiography Diagnostic Testing: Radiology Impression Echocardiogram 11/13/23 18:12 Interpretation Summary The left ventricular ejection fraction is 65 %. Stage 1 diastolic dysfunction. Mild aortic stenosis. Mild (1+) aortic valve insufficiency. Bubble contrast study is negative for PFO/ASD. The study was technically difficult. Ordering Physician: Tahira Meadows Referring Physician: Armando Orozco Performed By: Evelia Patton, ZAIN, RVT Thoracic Spine MRI 11/14/23 13:31 IMPRESSION: Moderate kyphosis. No acute disease. Electronically Signed: Brian Ng MD at 21:36 EST , Brain MRI 11/14/23 17:30 IMPRESSION: No acute disease Electronically Signed: Brian Ng MD at 21:52 EST , Cervical Spine MRI 11/14/23 17:30 IMPRESSION: Neural foraminal narrowing on the right at C4-5 and C5-6 due to uncinate spondylosis Electronically Signed: Brian Ng MD at 21:41 EST , Physical Exam Narrative Back pain is much better. Patient she states at the end of her shift she feels more fatigued and her speech becomes more slow, tongue dry and problem with articulation. Physical exam General: Alert, Oriented x3, Cooperative HEENT: Atraumatic, PERRLA, EOMI, Normocephalic Oral: No Gingival or Mucosal Lesions/ Ulcerations Neck: Supple, No JVD, Negative Carotid Bruits Chest wall/Lungs: Air entry diminished in bilateral lung bases. No crepitation/rhonchi Cardiovascular: Regular rate, Regular Rhythm, Normal S1, Normal S2, systolic murmur over right second ICS in the Spee Abdomen: Bowel Sounds Present, Soft, Non Tender, Non-Distended : No dysuria. No renal angle tenderness. No suprapubic tenderness. Extremities: No edema, Capillary Refill Less than 3 Seconds Skin: No rashes, No breakdown Musculoskeletal: Increased muscle stiffness, hypertonia at knee and hip joints. No tenderness over lumbar thoracic spine or paraspinal muscles. Neurological: Cranial nerves II-XII grossly intact, Knee jerk 3+. Muscle strength decreased 4/5 at knees and hip joints. No lurching gait or truncal ataxia observed during walking. Psych/Mental Status: Normal Affect, Appropriate. Assessment & Plan Assessment/Plan (1) Ataxia: (2) Falls: (3) Balance disorder: PLAN: Plan This 78-year-old female came to ED with low back pain and headache and recurrentfalls. Patient also has gait incoordination/ataxia, falling on the left side, sleep within the last 1 to 2 months, memory loss and dysmetria. LK W 20 weeks ago 1. Gait instability/truncal ataxia, dysmetria with features concerning for subacute cerebellar ataxia: Patient is admitted in PCU. Seen by neurologist. Continue aspirin 81 mg daily. MRI brain with and without contrast along with cervical and thoracic spine. High-dose thiamine for possible Warnicke, 500 mg IV every 8 hourly for 1 day, to 250 mg IV 8 hourly for 3 days and then 100 mg daily afterwards. Ordered, labwork to send from serum: thiamine, b12, celiac disease testing, ELENI with reflex, ssa/ssb, sypillis, HIV, copper, Hba1c, TSH, TPO, anti-TF -may need LP/ further testing based upon results of MR 3/6: Patient had brain, C-spine and thoracic spine MRI reported no acute findingbut chronic finding of mild foraminal narrowing and cervical spine and thoracic kyphosis due to chronic degenerative arthritis changes. MRI brain reported normal. Lab tests are ordered. Patient was walked she walks slow but not much swaying to one side or ataxia Systolic murmur 2D echo: The left ventricular ejection fraction is 65 %. Mild aortic stenosis, AR. Bubble contrast study negative for PFO/ASD. Stage I diastolic dysfunction suggestive of mild HFpEF. Chronic low back pain with radicular symptoms: She states that her pain is mainly restricted to lower back does not radiate to lower thigh or knee but feels more like a spasm. No acute change. Does not seem sciatica type pain. No change in bowel bladder function. -Recommend proceeding with outpatient lumbar spine MRI as previously ordered CAD/HPL/HTN/carotid artery disease -Previous PCI in 2015 -Patient currently not on any antiplatelet therapy but will start aspirin for the above -Continue home atorvastatin and check lipids -Continue home colestipol -Hold home antihypertensives until stroke can be ruled out then reinitiate if negative -PRNs per stroke protocol are available GERD/history of peptic ulcer disease -Continue home famotidine Hypothyroidism -Continue home levothyroxine TSH free T4 and anti-TPO antibodies ordered Memory impairment -Continue home donepezil DVT prophylaxis -Lovenox daily CODE STATUS -Full code is verified on admission Total time of the visit including total time spent in counseling or coordinationof care, (more than 50% of the total time, spent in obtaining medical information from nurses and other ancillary care providers,explaining to the patient about labs, imaging, diagnosis and management of active complex medical conditions), complete neuroexam, discussion with neurologist, review of labs andimaging is 40 minutes. Clinical Impression(s) from Imaging Studies Head/Neck CTA 11/13/23 14:48 IMPRESSION: No acute intracranial findings. No significant major vessel vaso-occlusive disease in the head or neck. No significant interval change from the prior study. Electronically Signed: Aris Soares MD at 16:44 EST , Chest X-Ray 11/13/23 16:05 IMPRESSION: No radiographic evidence of acute cardiopulmonary disease. Electronically Signed: Aris Soares MD at 17:13 EST , Echocardiogram 11/13/23 18:12 Interpretation Summary The left ventricular ejection fraction is 65 %. Stage 1 diastolic dysfunction. Mild aortic stenosis. Mild (1+) aortic valve insufficiency. Bubble contrast study is negative for PFO/ASD. The study was technically difficult. Thoracic Spine MRI 11/14/23 13:31 IMPRESSION: Moderate kyphosis. No acute disease. Brain MRI 11/14/23 17:30 IMPRESSION: No acute disease Cervical Spine MRI 11/14/23 17:30 IMPRESSION: Neural foraminal narrowing on the right at C4-5 and C5-6 due to uncinate spondylosis Electronically Signed: Brian Ng MD at 21:41 EST , Charges/Coding Visit Charges Inpatient E&M: 25647 Subs Hosp L2 11/15/23 0831 <Electronically signed by Jose Ortega MD> Cosigner Signature (if applicable): CC: ~ Signed [facility] Work Phone: [phone]) 545-244003-05-2024 Progress note Author Jose Ortega [facility] November 14, 2023 2:47pm Note Date/Time November 14, 2023 7:33 am [facility] Medical Records Department [address] [place] [address] Progress Note - Hospitalist 11/14/2332 MR#: [id number] Acct: [id number] Name: BHARTI AKBAR Rep #:[id number] : 1945 78 From: Jose Salazar PCP: Dr. Armando Orozco MD Status:AD M IN Location: [place] [address]- 1 Reason for Visit Reason for Visit: Diagnoses Dorsalgia, unspecified (11/13/23) Cardiac murmur, unspecified (11/13/23) Other abnormalities of gait and mobility (11/13/23) Unspecified abnormalities of gait and mobility (11/13/23) Ataxia, unspecified (11/13/23) Other lack of coordination (11/13/23) Other amnesia (11/13/23) Unspecified fall, initial encounter (11/13/23) Objective Data Objective Data Vital Signs: Vital Signs Temp Pulse Resp BP Pulse Ox O2 Del Method 97.6 F L 73 18 120/70 94 Room Air 11/14/23 04:58 11/14/23 04:58 11/14/23 04:58 11/14/23 04:58 11/14/23 04:58 11/14/23 04:58 Oxygen Delivery Method Room Air Weight: 116 lb 1.6 oz Body Mass Index (BMI) 20.5 Lab / Micro Data 11/14/23 06:45 11/14/23 06:45 Labs: Laboratory Results - last 24 hr 11/13/23 15:03: WBC 5.5, RBC 4.68, Hgb 14.2, Hct 42.0, MCV 89.7, MCH 30.3, MCHC 33.8, RDW Std Deviation 41.2, RDW Coeff of Jase 12.4, Plt Count 269, MPV 8.2, Immature Gran % (Auto) 0.200, Neut % (Auto) 65.7, Lymph % (Auto) 23.1, [place] % (Auto) 8.9, Eos % (Auto) 1.6, Baso % (Auto) 0.5, Absolute Neuts (auto) 3.6, Absolute Lymphs (auto) 1.27, Nucleated RBC % 0, PT 13.1, INR 1.0, APTT 29.4, Sodium 141, Potassium 3.5, Chloride 110 H, Carbon Dioxide 30.0, Anion Gap 1 L, BUN 19 H, Creatinine 0.92, Estim Creat Clear Calc 40.83, Est GFR (MDRD) Af Amer 76, Est GFR (MDRD) Non-Af 63, BUN/Creatinine Ratio 20.7 H, Glucose 99, Calcium 9.2, Troponin I High Sens 8, TSH 1.53 11/14/23 06:45: WBC 4.1 L, RBC 4.27, Hgb 13.1, Hct 38.3, MCV 89.7, MCH 30.7, MCHC 34.2, RDW Std Deviation 40.2, RDW Coeff of Jase 12.4, Plt Count 242, MPV 8.4, Immature Gran % (Auto) 0.200, Neut % (Auto) 60.9, Lymph % (Auto) 24.6, [place]% (Auto) 10.8 H, Eos % (Auto) 3.0, Baso % (Auto) 0.5, Absolute Neuts (auto) 2.5,Absolute Lymphs (auto) 1.00, Nucleated RBC % 0 Radiography Diagnostic Testing: Radiology Impression Head/Neck CTA 11/13/23 14:48 IMPRESSION: No acute intracranial findings. No significant major vessel vaso-occlusive disease in the head or neck. No significant interval change from the prior study. Electronically Signed: Aris Soares MD at 16:44 EST , Chest X-Ray 11/13/23 16:05 IMPRESSION: No radiographic evidence of acute cardiopulmonary disease. Electronically Signed: Aris Soares MD at 17:13 EST , Physical Exam Narrative Patient complaining that she felt pain over left lumbar back then moved to rightlumbar back with pain over pelvic and thigh area. She also has truncal ataxia. Physical exam General: Alert, Oriented x3, Cooperative HEENT: Atraumatic, PERRLA, EOMI, Normocephalic Oral: No Gingival or Mucosal Lesions/ Ulcerations Neck: Supple, No JVD, Negative Carotid Bruits Chest wall/Lungs: Air entry diminished in bilateral lung bases. No crepitation/rhonchi Cardiovascular: Regular rate, Regular Rhythm, Normal S1, Normal S2, systolic murmur over right second ICS in the Spee Abdomen: Bowel Sounds Present, Soft, Non Tender, Non-Distended : No dysuria. No renal angle tenderness. No suprapubic tenderness. Extremities: No edema, Capillary Refill Less than 3 Seconds Skin: No rashes, No breakdown Musculoskeletal: Increased muscle stiffness, hypertonia at knee and hip joints. Mild tenderness over lumbar area. Neurological: Cranial nerves II-XII grossly intact, Knee jerk 3+. Muscle strength decreased 4/5 at knees and hip joints. Truncal ataxia. Psych/Mental Status: Normal Affect, Appropriate. HEENT normocephalic, head/scalp atraumatic, hearing grossly normal bilaterally and moist oral mucous membranes Eyes PERRL, EOMs intact bilaterally and conjunctivae normal Eyes Narrative: No scleral icterus Neck no lymphadenopathy and supple Neck Narrative: Bilateral carotid bruits, trachea midline, no thyroid enlargement Resp normal respiratory effort, no retractions, no use of accessory muscles and clearto auscultation bilaterally Auscultation: Negative for rales, rhonchi or wheezes Cardio regular rate, regular rhythm, S1 normal heart sound, S2 normal heart sound, no rub, no gallops and no clicks; Negative for no murmurs Cardio Narrative: Intermittent ectopy, 3 out of 6 systolic murmur loudest at right upper sternal border GI normal to inspection, nondistended, normoactive bowel sounds, soft to palpation and non-tender Extremity no clubbing, cyanosis or edema Extremity Narrative: Pedal pulses and radial pulses are 2+ Skin no rashes or lesions noted, no wounds, skin turgor normal, no petechiae and no mottling Neuro oriented x3, CN's II-XII intact bilaterally and moves all extremities Neuro Narrative: Is able to move right leg but has difficulty moving it due to pain, reflexes arevery brisk 4+ bilateral upper and lower extremities, fine tremor noted on exam, patient with word finding difficulties intermittently and decreased attention totask, no focal deficits noted but patient does have significant generalized weakness Speech: Negative for speech normal Motor Exam: Negative for strength 5/5 throughout Psych Psych Narrative: Affect is flat and patient seems anxious Assessment & Plan Assessment/Plan (1) Ataxia: (2) Falls: (3) Balance disorder: PLAN: Plan This 78-year-old female came to ED with low back pain and headache and recurrentfalls. Patient also has gait incoordination/ataxia, falling on the left side, sleep within the last 1 to 2 months, memory loss and dysmetria. LK W 20 weeks ago 1. Gait instability/truncal ataxia, dysmetria with features concerning for subacute cerebellar ataxia: Patient is admitted in PCU. Seen by neurologist. Continue aspirin 81 mg daily. MRI brain with and without contrast along with cervical and thoracic spine. High-dose thiamine for possible Warnicke, 500 mg IV every 8 hourly for 1 day, to 250 mg IV 8 hourly for 3 days and then 100 mg daily afterwards. Ordered, labwork to send from serum: thiamine, b12, celiac disease testing, ELENI with reflex, ssa/ssb, sypillis, HIV, copper, Hba1c, TSH, TPO, anti-TF -may need LP/ further testing based upon results of MR Systolic murmur 2D echo is ordered. Chronic low back pain with radicular symptoms: She states that her pain is mainly restricted to lower back does not radiate to lower thigh or knee but feels more like a spasm. No acute change. Does not seem sciatica type pain. No change in bowel bladder function. -Recommend proceeding with outpatient lumbar spine MRI as previously ordered CAD/HPL/HTN/carotid artery disease -Previous PCI in 2015 -Patient currently not on any antiplatelet therapy but will start aspirin for the above -Continue home atorvastatin and check lipids -Continue home colestipol -Hold home antihypertensives until stroke can be ruled out then reinitiate if negative -PRNs per stroke protocol are available GERD/history of peptic ulcer disease -Continue home famotidine Hypothyroidism -Continue home levothyroxine TSH free T4 and anti-TPO antibodies ordered Memory impairment -Continue home donepezil DVT prophylaxis -Lovenox daily CODE STATUS -Full code is verified on admission Total time of the visit including total time spent in counseling or coordinationof care, (more than 50% of the total time, spent in obtaining medical information from nurses and other ancillary care providers,explaining to the patient about labs, imaging, diagnosis and management of active complex medical conditions), complete neuroexam, discussion with neurologist, review of labs andimaging is 40 minutes. Charges/Coding Visit Charges Inpatient E&M: 93509 Subs Hosp L3 11/14/23 1447 <Electronically signed by Jose Ortega MD> Cosigner Signature (if applicable): CC: ~ Signed [facility] Work Phone: [phone]) 138-256903-05-2024 Consult note Author [facility] November 14, 2023 1:42pm Note Date/Time November 14, 2023 1:23 pm [facility] Medical Records Department [address] [place] [address] Consultation - Neurology 11/14/23 1322 MR#: [id number] Acct: [id number] Name: BHARTI AKBAR Rep #:[id number] : 1945 78 From: Raysa Salazar PCP: Dr. Armando Orozco MD Status:AD M IN Location: [place] [address] Assessment and Plan: Neuro Assessment/Plan #gait instability with concern for subacute cerebellar ataxia -ok to continue ASA 81 daily for now -MRI brain with/without contrast -MRI C and T-spine with/without -Start high dose thiamine for possible wernickes (500 IV q8 x 1 day, 250 IV q 8 x 3 days, 100 daily afterwards) -Initial labwork to send from serum: thiamine, b12, celiac disease testing, ELENI with reflex, ssa/ssb, sypillis, HIV, copper, Hba1c, TSH, TPO, anti-TF -may need LP/ further testing based upon results of MR HPI Consult Data Date of Consult: 11/14/23 HPI Narrative HPI Narrative: 78 yo Fw PMH?HTN, hypothyroidism,?CAD, memory loss, HTN, GERD, GI bleed 2/2 AVMsadmitted with unsteady gait and difficulty ambulating. Patients states she has been having worseing back pain and stiffness over past several weeks. Has seen her outpatient neurologist who recommended MRI of the spine. Over the past 2-3 days has noted bilateral LE incoordination. She feels very unsteady while walking and has a sensation of veering or being pulled to the ground. She has has also noted new left sided headaches over L eye for past 3 months. 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 difficile colitis Carotid artery bruit Carotid stenosis, right Cataracts, bilateral Chest pain Chronic headache Colitis Constipation Diarrhea Diarrhea Diastolic dysfunction Dysphagia Essential hypertension Family history of premature coronary heart disease Fatigue GERD (gastroesophageal reflux disease) GI bleed GI problem Hearing problem History of GI bleed HLD (hyperlipidemia) Hypothyroidism Hypothyroidism Insomnia Iron deficiency anemia due to chronic blood loss Ischemic colitis skilled nursing use of drug Lung nodule, multiple Migraines Non-smoker Nonspecific abnormal serum enzyme levels Osteoarthritis Palpitations Peptic ulcer disease Presence of stent in coronary artery (~04/19/21) Seasonal allergies Segmental colitis associated with diverticulosis Thyroid dysfunction TIA (transient ischemic attack) Ventricular hypertrophy Vision problem Home Medications levothyroxine 100 mcg tablet 100 mcg PO DAILY thyroid 04/28/21 [History Last Taken 07/28/21] trazodone 50 mg tablet 100 mg PO QHS sleep 05/04/22 [History Last Taken Unknown] potassium chloride 20 mEq tablet,extended release 20 meq PO DAILY supplement #90tabs 05/26/22 [Rx Last Taken Unknown] carvedilol 6.25 mg tablet (Coreg) 6.25 mg PO BID #60 tabs 10/16/23 [Rx Last Taken Unknown] colestipol 1 gram tablet (Colestid) 1 g PO BID 10/16/23 [History Last Taken Unknown] donepezil 5 mg tablet 5 mg PO DAILY 10/16/23 [History Last Taken Unknown] lisinopril 10 mg tablet 20 mg PO DAILY blood pressure 10/16/23 [History Last Taken Unknown] atorvastatin 40 mg tablet 40 mg PO QHS 11/13/23 [History Last Taken Unknown] famotidine 20 mg tablet 20 mg PO DAILY 11/13/23 [History Last Taken Unknown] metoprolol tartrate 25 mg tablet 25 mg PO Q12H 11/13/23 [History Last Taken Unknown] tamsulosin 0.4 mg capsule 0.4 mg PO DAILY 11/13/23 [History Last Taken Unknown] Allergy/AdvReac Type Severity Reaction Status Date / Time albuterol Allergy Intermediate GI upset Verified 11/13/23 13:02 cyclobenzaprine Allergy Intermediate mental Verified 11/13/23 13:02 [From Flexeril] status change hydrocodone [From Vicodin] Allergy Intermediate muscle Verified 11/13/23 13:02 twitching oxycodone Allergy Intermediate Vomiting Verified 11/13/23 13:02 amoxicillin Allergy Mild Swelling Verified 11/13/23 13:02 clindamycin Allergy Mild Swelling Verified 11/13/23 13:02 diatrizoate meglumine Allergy Mild Itching Verified 11/13/23 13:02 Tetanus Vaccines and Toxoid Allergy Mild Hives Verified 11/13/23 13:02 codeine AdvReac Intermediate Nausea & Verified 11/13/23 13:02 Vomiting benzonatate AdvReac Mild Vomiting Verified 11/13/23 13:02 [From Tessalon Perles] hydrochlorothiazide AdvReac Mild intolerance Verified 11/13/23 13:02 [From Dyazide] triamterene [From Dyazide] AdvReac Mild intolerance Verified 11/13/23 13:02 erythromycin base AdvReac Nausea Verified 11/13/23 13:02 Family History Mother , Age 76 heart attack Myocardial infarction Heart disease Cardiomyopathy Hypertension Osteoporosis Father , Heart Disease Age 86 Heart disease Parkinson disease CVA (cerebral vascular accident) Hypertension Unknown Thyroid disorder Stomach ulcer Surgical History History of appendectomy History of colonoscopy (~08/2020) History of coronary artery stent placement History of esophagogastroduodenoscopy (EGD) (~08/2020) History of hysterectomy History of thyroidectomy Presence of coronary angioplasty implant and graft (~09/01/15) Social History household members: spouse Smoking Status: Never smoker alcohol intake: current alcohol intake frequency: holidays/special occasions only Alcohol type: wine substance use type: does not use diet: other caffeine: Yes Type: coffee Number of servings: 3 what type of physical activity do you participate in: walking frequency: 3-4 times per week seatbelt use: always do you feel safe at home: Yes Physical Exam Narrative MS: awake, alert, oriented x 3, follows commands, able to name, no aphasia,no dysarthria CN: VFF, EOMI ?no facial droop, nml facial sensation M: ?Antigravity in all extremities, no drift S: nml sensation to LT C: bilateral UE> LE dysmetria, prominent truncal ataxia R: increased tone and reflexes Lab / Micro Data 11/14/23 06:45 11/14/23 06:45 Labs: Laboratory Results - last 24 hr 11/13/23 15:03: WBC 5.5, RBC 4.68, Hgb 14.2, Hct 42.0, MCV 89.7, MCH 30.3, MCHC 33.8, RDW Std Deviation 41.2, RDW Coeff of Jase 12.4, Plt Count 269, MPV 8.2, Immature Gran % (Auto) 0.200, Neut % (Auto) 65.7, Lymph % (Auto) 23.1, [place] % (Auto) 8.9, Eos % (Auto) 1.6, Baso % (Auto) 0.5, Absolute Neuts (auto) 3.6, Absolute Lymphs (auto) 1.27, Nucleated RBC % 0, PT 13.1, INR 1.0, APTT 29.4, Sodium 141, Potassium 3.5, Chloride 110 H, Carbon Dioxide 30.0, Anion Gap 1 L, BUN 19 H, Creatinine 0.92, Estim Creat Clear Calc 40.83, Est GFR (MDRD) Af Amer 76, Est GFR (MDRD) Non-Af 63, BUN/Creatinine Ratio 20.7 H, Glucose 99, Calcium 9.2, Troponin I High Sens 8, TSH 1.53 11/14/23 06:45: WBC 4.1 L, RBC 4.27, Hgb 13.1, Hct 38.3, MCV 89.7, MCH 30.7, MCHC 34.2, RDW Std Deviation 40.2, RDW Coeff of Jase 12.4, Plt Count 242, MPV 8.4, Immature Gran % (Auto) 0.200, Neut % (Auto) 60.9, Lymph % (Auto) 24.6, [place]% (Auto) 10.8 H, Eos % (Auto) 3.0, Baso % (Auto) 0.5, Absolute Neuts (auto) 2.5,Absolute Lymphs (auto) 1.00, Nucleated RBC % 0, Sodium 140, Potassium 3.3 L, Chloride 106, Carbon Dioxide 28.0, Anion Gap 6, BUN 17, Creatinine 0.90, Estim Creat Clear Calc 41.93, Est GFR (MDRD) Af Amer 78, Est GFR (MDRD) Non-Af 64, BUN/Creatinine Ratio 18.9, Glucose 102, Calcium 9.1, Phosphorus 4.1, Magnesium 2.0, Total Bilirubin 0.50, AST 21, ALT 20, Alkaline Phosphatase 76, Total Protein 6.2 L, Albumin 3.3, Globulin 2.9, Albumin/Globulin Ratio 1.1, Triglycerides 68, Cholesterol 136, LDL Cholesterol 54, VLDL Cholesterol 14, HDL Cholesterol 68 Imaging Radiology Impression Head/Neck CTA 11/13/23 14:48 IMPRESSION: No acute intracranial findings. No significant major vessel vaso-occlusive disease in the head or neck. No significant interval change from the prior study. Electronically Signed: Aris Soares MD at 16:44 EST , Chest X-Ray 11/13/23 16:05 IMPRESSION: No radiographic evidence of acute cardiopulmonary disease. Electronically Signed: Aris Soares MD at 17:13 EST , Echocardiogram 11/13/23 18:12 Interpretation Summary The left ventricular ejection fraction is 65 %. Stage 1 diastolic dysfunction. Mild aortic stenosis. Mild (1+) aortic valve insufficiency. Bubble contrast study is negative for PFO/ASD. The study was technically difficult. Ordering Physician: Tahira Meadows Referring Physician: Armando Orozco Performed By: Evelia Patton, ZAIN, RVT Active Medications Active Medications Active Medications: Current Medications Generic Name Dose Route Start Last Admin Trade Name Freq PRN Reason Stop Dose Admin Acetaminophen 650 mg 11/13/23 20:39 11/14/23 04:54 Acetaminophen 325 Mg Tablet PO 650 mg Q4H PRN PRN Administration Pain 1-10 Or Fever>99.6 Aspirin 81 mg 11/14/23 08:00 11/14/23 08:19 Aspirin 81 Mg Tab.Chew PO 81 mg BREAKFAST TRINITY Administration Atorvastatin Calcium 40 mg 11/13/23 22:00 11/13/23 21:33 Atorvastatin Calcium 40 Mg Tablet PO 40 mg QHS TRINITY Administration Colestipol HCl 1 gm 11/13/23 22:00 11/14/23 10:36 Colestipol 1 Gm Tablet PO 1 gm BID TRINITY Administration Donepezil HCl 5 mg 11/14/23 10:00 11/14/23 08:19 Donepezil Hcl 5 Mg Tablet PO 5 mg DAILY TRINITY Administration Enoxaparin Sodium 40 mg 11/14/23 10:00 11/14/23 08:19 Enoxaparin 40 Mg/0.4 Ml Syringe SC 40 mg DAILY TRINITY Administration Famotidine 20 mg 11/14/23 10:00 11/14/23 08:19 Famotidine 20 Mg Tablet PO 20 mg DAILY TRINITY Administration Hydralazine HCl 5 mg 11/13/23 20:39 Hydralazine 20 Mg/Ml Vial IV Q30M PRN to maintain BP goals Sodium Chloride 250 mls @ 15 mls/hr 11/13/23 21:15 IV .[id number] PRN Additional IVPB Infusion Sodium Chloride 250 mls @ 15 mls/hr 11/13/23 21:15 IV .[id number] PRN Saline Flush Iopamidol 0 ml 11/13/23 20:39 11/14/23 04:56 Contrast Allergy Safety Check IV Not Given X1 TRINITY Labetalol HCl 10 - 20 mg 11/13/23 20:39 Labetalol (Prefilled) 20 Mg/4 Ml IV Q10M PRN PRN to Maintain BP Goals Levothyroxine Sodium 100 mcg 11/14/23 06:00 11/14/23 04:55 Levothyroxine 100 Mcg Tablet PO 100 mcg 0600 TRINITY Administration Melatonin 3 mg 11/13/23 20:39 Melatonin 3 Mg Tablet PO QHS PRN PRN INSOMNIA Ondansetron HCl 4 mg 11/13/23 20:39 Ondansetron 4 Mg/2 Ml Vial IV Q8H PRN PRN NAUSEA/VOMITING Senna/Docusate Sodium 2 tablet 11/13/23 20:39 Senna/Docusate Sodium 1 Tablet PO BID PRN PRN Constipation Sodium Chloride 10 - 40 ml 11/13/23 21:15 0.9% Saline Lock 10 Ml Syringe IV UD PRN SALINE FLUSH Tamsulosin HCl 0.4 mg 11/14/23 10:00 11/14/23 08:19 Tamsulosin Hcl 0.4 Mg Capsule PO 0.4 mg DAILY TRINITY Administration Trazodone HCl 100 mg 11/13/23 22:00 11/13/23 21:33 Trazodone 100 Mg Tablet PO 100 mg QHS TRINITY Administration 11/14/23 1342 <Electronically signed by Raysa Hutton MD> Cosigner Signature (if applicable): CC: Minoo Silver; Katarzyna Brock; Stan Abad; Anabell Bang MD; Jennifer Gonzalez MD; Jonny Young MD; Dr. Vanessa Waldron MD; Dr. Freddy Buchanan MD; Dr. Jessica MD; Dr. Joselyn Meadows MD; Dr. Donald Ward MD; Dr. Tahira Meadows DO; Dr. Armando Orozco MD; Dr. Federico Jones DO; Dr. Little Aden MD; Dr. Raysa Hutton MD; Dr. Sabi Stout MD; Dr. Fareed Wagnoer MD; Dr. Letha Meadows MD; Angie Cook DO; Kelby Cordoba MD~ Signed [facility] Work Phone: 1(285) 564-401303-04-2024 Discharge summary Author Matthieu Gomez [facility] November 13, 2023 8:30pm Note Date/Time November 13, 2023 2:04 pm [facility] Medical Records Department [address] [place] [address] Emergency Department Summary 11/13/23 MR#: [id number] Acct: [id number] Name: BHARTI AKBAR Rep #:[id number] : 1945 78 From: Matthieu Suarez PCP: Dr. Armando Orozco MD Status:AD M IN [facility] History of Present Illness Chief Complaint: Back [facility] Medical History Abdominal bloating Angina pectoris Aortic insufficiency Aortic valve disease Atherosclerotic heart disease of [place] coronary artery without angina pectoris Atrial fibrillation Bilateral carotid artery stenosis C. difficile colitis Carotid artery bruit Carotid stenosis, right Cataracts, bilateral Chest pain Chronic headache Colitis Constipation Diarrhea Diarrhea Diastolic dysfunction Dysphagia Essential hypertension Family history of premature coronary heart disease Fatigue GERD (gastroesophageal reflux disease) GI bleed GI problem Hearing problem History of GI bleed HLD (hyperlipidemia) Hypothyroidism Hypothyroidism Insomnia Iron deficiency anemia due to chronic blood loss Ischemic colitis skilled nursing use of drug Lung nodule, multiple Migraines Non-smoker Nonspecific abnormal serum enzyme levels Osteoarthritis Palpitations Peptic ulcer disease Presence of stent in coronary artery (~04/19/21) Seasonal allergies Segmental colitis associated with diverticulosis Thyroid dysfunction TIA (transient ischemic attack) Ventricular hypertrophy Vision problem Home Medications levothyroxine 100 mcg tablet 100 mcg PO DAILY thyroid 04/28/21 [History Last Taken 07/28/21] trazodone 50 mg tablet 100 mg PO QHS sleep 05/04/22 [History Last Taken Unknown] potassium chloride 20 mEq tablet,extended release 20 meq PO DAILY supplement #90tabs 05/26/22 [Rx Last Taken Unknown] carvedilol 6.25 mg tablet (Coreg) 6.25 mg PO BID #60 tabs 10/16/23 [Rx Last Taken Unknown] colestipol 1 gram tablet (Colestid) 1 g PO BID 10/16/23 [History Last Taken Unknown] donepezil 5 mg tablet 5 mg PO DAILY 10/16/23 [History Last Taken Unknown] lisinopril 10 mg tablet 20 mg PO DAILY blood pressure 10/16/23 [History Last Taken Unknown] atorvastatin 40 mg tablet 40 mg PO QHS 11/13/23 [History Last Taken Unknown] famotidine 20 mg tablet 20 mg PO DAILY 11/13/23 [History Last Taken Unknown] metoprolol tartrate 25 mg tablet 25 mg PO Q12H 11/13/23 [History Last Taken Unknown] tamsulosin 0.4 mg capsule 0.4 mg PO DAILY 11/13/23 [History Last Taken Unknown] Allergy/AdvReac Type Severity Reaction Status Date / Time albuterol Allergy Intermediate GI upset Verified 11/13/23 13:02 cyclobenzaprine Allergy Intermediate mental Verified 11/13/23 13:02 [From Flexeril] status change hydrocodone [From Vicodin] Allergy Intermediate muscle Verified 11/13/23 13:02 twitching oxycodone Allergy Intermediate Vomiting Verified 11/13/23 13:02 amoxicillin Allergy Mild Swelling Verified 11/13/23 13:02 clindamycin Allergy Mild Swelling Verified 11/13/23 13:02 diatrizoate meglumine Allergy Mild Itching Verified 11/13/23 13:02 Tetanus Vaccines and Toxoid Allergy Mild Hives Verified 11/13/23 13:02 codeine AdvReac Intermediate Nausea & Verified 11/13/23 13:02 Vomiting benzonatate AdvReac Mild Vomiting Verified 11/13/23 13:02 [From Tessalon Perles] hydrochlorothiazide AdvReac Mild intolerance Verified 11/13/23 13:02 [From Dyazide] triamterene [From Dyazide] AdvReac Mild intolerance Verified 11/13/23 13:02 erythromycin base AdvReac Nausea Verified 11/13/23 13:02 Family History Mother , Age 76 heart attack Myocardial infarction Heart disease Cardiomyopathy Hypertension Osteoporosis Father , Heart Disease Age 86 Heart disease Parkinson disease CVA (cerebral vascular accident) Hypertension Unknown Thyroid disorder Stomach ulcer Surgical History History of appendectomy History of colonoscopy (~08/2020) History of coronary artery stent placement History of esophagogastroduodenoscopy (EGD) (~08/2020) History of hysterectomy History of thyroidectomy Presence of coronary angioplasty implant and graft (~09/01/15) Social History household members: spouse Smoking Status: Never smoker alcohol intake: current alcohol intake frequency: holidays/special occasions only Alcohol type: wine substance use type: does not use diet: other caffeine: Yes Type: coffee Number of servings: 3 what type of physical activity do you participate in: walking frequency: 3-4 times per week seatbelt use: always do you feel safe at home: Yes EXAM Physical Exam Const Vital Signs: 11/13/23 13:02 11/13/23 14:55 11/13/23 14:30 Temperature 97.8 F Temperature Source Temporal Pulse Rate 78 73 Respiratory Rate 16 22 H Blood Pressure 148/100 H 229/67 H Blood Pressure Mean 116 112 Pulse Ox 96 Oxygen Delivery Method Room Air Room Air 11/13/23 15:30 11/13/23 16:20 11/13/23 16:34 Temperature Temperature Source Pulse Rate 59 L 80 71 Respiratory Rate 12 14 19 H Blood Pressure 168/81 H 170/96 H Blood Pressure Mean 108 103 Pulse Ox 97 98 Oxygen Delivery Method 11/13/23 17:00 Temperature Temperature Source Pulse Rate Respiratory Rate Blood Pressure 184/70 H Blood Pressure Mean 105 Pulse Ox Oxygen Delivery Method MDM MDM MDM Narrative Medical decision making narrative: HISTORY OF PRESENT ILLNESS: 78-year-old female presents with back pain and headache. She states this began 2 and half weeks ago. Last known well was on 10/27/2023 none since that time shehas had difficulty with coordination. Notes intermittent issues with speech. Notes she keeps falling to the left. Notes she had a severe headache yesterday which is since resolved. No ocular abnormalities noted. Patient denies sudden onset or thunderclap headache, denies maximal intensity within 1 minute, vomiting, neck pain, stiffness, changes in vision, fever, history malignancy, syncope, or seizures associated with headache. Patient denies any saddle anesthesia, urinary retention, bowel or bladder incontinence, lower extremity weakness, fever or IV drug use, no recent spinal manipulation or surgery, no recent urinary catheterization. REVIEW OF SYSTEMS: Pertinent positives: Back pain, headache, incoordination Pertinent negatives: Chest pain, shortness of breath PHYSICAL EXAM: Nursing triage notes reviewed, Vital signs reviewed Constitutional: please see mdm HENT: MMM Eyes: Pupils equal round and reactive to light, Extraocular muscles intact Neck: No stridor, no JVD, full neck ROM Lungs: Clear to auscultation, No wheezing or rales. No increased work of breathing, no conversational dyspnea, no accessory muscle use, no nasal flaring. No respiratory distress noted Heart: Regular rate and rhythm, No murmurs, No rubs and No gallops, 2+ distal pulses (radial, femoral, posterior tibial) in all extremities Abdomen: Soft, there is no tenderness, rigidity, rebound or guarding, no obviousperitoneal signs, no palpable pulsatile abdominal masses, no auscultated abdominal bruit : No CVAT Extremities: No edema Neuro: Patient was alert, oriented x 3, no obvious cranial nerve deficits, no aphasia, no dysarthria, intact sensation strength in bilateral upper and lower extremities, noted ataxia left upper extremity as well as truncal ataxia. NIH of1 for LUE ataxia. Did not assess gait 2/2 acuity of condition. Skin: No rash or lesions noted MEDICAL DECISION MAKING: Chief Complaint: Incoordination, headache External records reviewed: Imaging studies reviewed: CTA of the head and neck from August 2023 shows. MRI of the brain from 2020 shows no acute infarct, hemorrhage mass or mass effect Factors affecting care: CAD, hyperlipidemia, carotid artery stenosis, GI bleed, Social determinants of health: none History obtained from others: none Consults: Internal medicine (Dr. Meadows) [facility] Narrative: Patient was hemodynamically stable, afebrile, nontoxic-appearing. Exam with NIHof 1 for incoordination. The patient was not a TNKase or thrombectomy candidategiven low NIH and last known well greater than 24 hours. I considered the following differential diagnosis: CVA, ACS, LVO, focal seizure ALL IMAGES (IF OBTAINED) HAVE BEEN PERSONALLY REVIEWED AND INTERPRETED BY MYSELF. EKG with normal sinus rhythm, normal axis, no intervals, no STEMI CTA head and neck shows no acute abnormalities. CBC without leukocytosis, severe anemia, no thrombocytopenia. PT, PTT, INR within normal limits CMP without evidence of acute kidney injury, significant electrolyte abnormality, anion gap, no evidence hepatobiliary pathology. High-sensitivity troponin is negative, no evidence of myocardial ischemia TSH within normal limits Given focal neurologic deficit patient was admitted for MRI and neurology evaluation The patient and/or family, caregivers express understanding. The patient and/orfamily, caregivers agrees with the plan. Shared decision making: I will have a discussion with the patient and or visitors regarding risk/benefits of further testing or admission. They will be made aware of of the risk/benefits inherent in this decision they will be given the opportunity to voice understanding. Total critical care time today provided was at least 0 [] minutes. This excludes separately billable procedures. Critical care time (if documented) is secondary to the patient having high probability of clinically significant/life threatening deterioration in the patient's condition which required my urgent intervention. Impression: 1. Ataxia 2. Gait abnormality Dispo: Admit to PCU observation This note was generated with [employer] dictation software. It may contain incorrect words, spelling, and punctuation that were not noted in review of the chart prior to signing. Lab Data Lab results narrative: Labs: Laboratory Results - last 24 hr 11/13/23 15:03 WBC 5.5 RBC 4.68 Hgb 14.2 Hct 42.0 MCV 89.7 MCH 30.3 MCHC 33.8 RDW Std Deviation 41.2 RDW Coeff of Jase 12.4 Plt Count 269 MPV 8.2 Immature Gran % (Auto) 0.200 Neut % (Auto) 65.7 Lymph % (Auto) 23.1 [place] % (Auto) 8.9 Eos % (Auto) 1.6 Baso % (Auto) 0.5 Absolute Neuts (auto) 3.6 Absolute Lymphs (auto) 1.27 Nucleated RBC % 0 PT 13.1 INR 1.0 APTT 29.4 Sodium 141 Potassium 3.5 Chloride 110 H Carbon Dioxide 30.0 Anion Gap 1 L BUN 19 H Creatinine 0.92 Estim Creat Clear Calc 40.83 Est GFR (MDRD) Af Amer 76 Est GFR (MDRD) Non-Af 63 BUN/Creatinine Ratio 20.7 H Glucose 99 Calcium 9.2 Troponin I High Sens 8 TSH 1.53 Radiography Diagnostic Testing: Clinical Impression(s) from Imaging Studies Head/Neck CTA 11/13/23 14:48 IMPRESSION: No acute intracranial findings. No significant major vessel vaso-occlusive disease in the head or neck. No significant interval change from the prior study. Electronically Signed: Aris Soares MD at 16:44 EST , Chest X-Ray 11/13/23 16:05 IMPRESSION: No radiographic evidence of acute cardiopulmonary disease. Electronically Signed: Aris Soares MD at 17:13 EST , Discharge Plan Disposition Disposition: Acute Care Hospital [facility] Discharge Date/Time: 11/13/23 20:10 What to do if you have Problems For any increased pain, shortness of breath, bleeding, nausea or vomiting, chest pain, or any unexpected problems, contact your Primary Care Provider. Call [facility] ([phone]) or report to the closest Emergency Room. Call 911 if necessary. 11/13/232029 <Electronically signed by Matthieu Gomez DO> Cosigner Signature (if applicable): CC: Dr. Armando Orozco MD ~ Signed [facility] Work Phone: [phone]) 313-872803-04-2024 History and physical note Author Tahira Meadwos [facility] November 13, 2023 6:54pm Note Date/Time November 13, 2023 6:22 pm [facility] Medical Records Department [address] [place] [id number] H&P Exam - Hospitalist 11/13/23 1815 MR#: [id number] Acct: [id number] Name: BHARTI AKBAR Rep #:[id number] : 1945 78 From: Tahira Meadows DO PCP: Dr. Armando Orozco MD Status:RE G ER Location: ED HPI - General General Date of Admission: 11/13/23 Date of Service: 11/13/23 Chief Complaint: ataxia and back pain HPI Narrative BHARTI AKBAR, is a 78 F who presented initially to the emergency department forback pain and leg pain that has been ongoing. She [facility], Dr. Granger, who has ordered a lumbar spine MRI and there is evidently been some issues with her getting it scheduled and she wantedto get it scheduled here however the ER physician was more concerned on her physical exam as she is having some memory loss, ataxia, dysmetria, falls (3 within the last 1 to 2 months), word finding issues and shakiness of speech. She states she has had a lot of the symptoms for about the last year but they progressively gotten worse. She states she is afraid to speak to people at workbecause she is afraid she will say the wrong thing and it has become problematicon a daily basis. On exam she has ataxia with past-pointing, tremor that is fine at rest, shaky speech with intermittent word finding problems and she is hyperreflexic on exam. She is overall fairly poor historian. She does state that she used to love to dance and she was at her granddaughter's wedding recently and was not even able to dance due to her symptoms. She states her neurologist thought maybe she was having some dementia and has placed her on donepezil recently. She has not noticed any change. Vital signs on presentation show a temperature of 97.8, heart rate 78, blood pressure was 148/100, respiratory was 16 oxygen saturations are 96% on room air. CBC is completely unremarkable. Coags are normal. Her chemistry panel is overtly unremarkable. Troponin was 8. CTA of the head and neck was unremarkable for any acute findings. Chest x-ray was unremarkable for any acutefindings. 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 Lung nodule, multiple Migraines Non-smoker Nonspecific abnormal serum enzyme levels Osteoarthritis Palpitations Peptic ulcer disease Presence of stent in coronary artery (~04/19/21) Seasonal allergies Segmental colitis associated with diverticulosis Thyroid dysfunction TIA (transient ischemic attack) Ventricular hypertrophy Vision problem Home Medications levothyroxine 100 mcg tablet 100 mcg PO DAILY thyroid 04/28/21 [History Last Taken 07/28/21] trazodone 50 mg tablet 100 mg PO QHS sleep 05/04/22 [History Last Taken Unknown] potassium chloride 20 mEq tablet,extended release 20 meq PO DAILY supplement #90tabs 05/26/22 [Rx Last Taken Unknown] carvedilol 6.25 mg tablet (Coreg) 6.25 mg PO BID #60 tabs 10/16/23 [Rx Last Taken Unknown] colestipol 1 gram tablet (Colestid) 1 g PO BID 10/16/23 [History Last Taken Unknown] donepezil 5 mg tablet 5 mg PO DAILY 10/16/23 [History Last Taken Unknown] lisinopril 10 mg tablet 20 mg PO DAILY blood pressure 10/16/23 [History Last Taken Unknown] atorvastatin 40 mg tablet 40 mg PO QHS 11/13/23 [History Last Taken Unknown] famotidine 20 mg tablet 20 mg PO DAILY 11/13/23 [History Last Taken Unknown] metoprolol tartrate 25 mg tablet 25 mg PO Q12H 11/13/23 [History Last Taken Unknown] tamsulosin 0.4 mg capsule 0.4 mg PO DAILY 11/13/23 [History Last Taken Unknown] Allergy/AdvReac Type Severity Reaction Status Date / Time albuterol Allergy Intermediate GI upset Verified 11/13/23 13:02 cyclobenzaprine Allergy Intermediate mental Verified 11/13/23 13:02 [From Flexeril] status change hydrocodone [From Vicodin] Allergy Intermediate muscle Verified 11/13/23 13:02 twitching oxycodone Allergy Intermediate Vomiting Verified 11/13/23 13:02 amoxicillin Allergy Mild Swelling Verified 11/13/23 13:02 clindamycin Allergy Mild Swelling Verified 11/13/23 13:02 diatrizoate meglumine Allergy Mild Itching Verified 11/13/23 13:02 Tetanus Vaccines and Toxoid Allergy Mild Hives Verified 11/13/23 13:02 codeine AdvReac Intermediate Nausea & Verified 11/13/23 13:02 Vomiting benzonatate AdvReac Mild Vomiting Verified 11/13/23 13:02 [From Tessalon Perles] hydrochlorothiazide AdvReac Mild intolerance Verified 11/13/23 13:02 [From Dyazide] triamterene [From Dyazide] AdvReac Mild intolerance Verified 11/13/23 13:02 erythromycin base AdvReac Nausea Verified 11/13/23 13:02 Family History Mother , Age 76 heart attack Myocardial infarction Heart disease Cardiomyopathy Hypertension Osteoporosis Father , Heart Disease Age 86 Heart disease Parkinson disease CVA (cerebral vascular accident) Hypertension Unknown Thyroid disorder Stomach ulcer Surgical History History of appendectomy History of colonoscopy (~08/2020) History of coronary artery stent placement History of esophagogastroduodenoscopy (EGD) (~08/2020) History of hysterectomy History of thyroidectomy Presence of coronary angioplasty implant and graft (~09/01/15) Social History household members: spouse Smoking Status: Never smoker alcohol intake: current alcohol intake frequency: holidays/special occasions only Alcohol type: wine substance use type: does not use diet: other caffeine: Yes Type: coffee Number of servings: 3 what type of physical activity do you participate in: walking frequency: 3-4 times per week seatbelt use: always do you feel safe at home: Yes ROS Constitutional Constitutional: Reports weakness; Denies anorexia, change in weight, chills, fatigue, fever(s), malaise, night sweats or other Eyes Eyes: Denies blurry vision, change in eye color, change in vision, discharge from eye(s), double vision, erythema, eye pain, loss of vision or other ENT HEENT: Denies abnormal hearing, dysphagia, ear pain, epistaxis, headache(s), hearing loss, nasal congestion, nasal discharge, post nasal drip, sinus pressure, sore throat or other Cardiovascular Cardiovascular: Denies chest pain, claudication, dyspnea on exertion, edema, lightheadedness, orthopnea, palpitations, paroxysmal nocturnal dyspnea, rapid heart rate, syncope or other Respiratory/Chest Respiratory/Chest: Denies cough, dyspnea, excessive phlegm production, hemoptysis, productive cough, shortness of breath at rest, shortness of breath with exertion, wheezing or other Gastrointestinal Gastrointestinal: Denies abdominal pain, coffee ground emesis, constipation, diarrhea, dyspepsia, hematemesis, hematochezia, loose stools, melena, nausea, vomiting or other Genitourinary Genitourinary: Denies burning urination, difficulty urinating, dysuria, hematuria, nocturia, urinary frequency, urinary hesitancy, urinary incontinence,urinary urgency or other Musculoskeletal Musculoskeletal: Reports back pain and neck pain Neurologic Neurologic: Reports abnormal gait, abnormal speech, confusion, disequilibrium, tremor(s) and other Details: Difficulty walking ; Denies dizziness, focal weakness, headache(s), numbness, paresthesias, seizure- like activity, seizures, syncope or tingling Psychiatric Psychiatric: Denies anxiety, depression, homicidal ideation, suicidal ideation or other Endocrine Endocrinology: Denies change in body appearance, cold intolerance, excessive sweating, heat intolerance, polydipsia, polyuria or other Hematologic/Lymphatic Hematologic/Lymphatic: Denies anemia, easy bleeding, easy bruising, lymphadenopathy or other Allergic/Immunologic Allergic/Immunologic: Denies rhinitis, hives, eczemia, asthma or other Vital Signs Vital Signs Vital Signs: 11/13/23 13:02 11/13/23 14:55 11/13/23 14:30 Temperature 97.8 F Temperature Source Temporal Pulse Rate 78 73 Respiratory Rate 16 22 H Blood Pressure 148/100 H 229/67 H Blood Pressure Mean 116 112 Pulse Ox 96 Oxygen Delivery Method Room Air Room Air 11/13/23 15:30 11/13/23 16:20 11/13/23 16:34 Temperature Temperature Source Pulse Rate 59 L 80 71 Respiratory Rate 12 14 19 H Blood Pressure 168/81 H 170/96 H Blood Pressure Mean 108 103 Pulse Ox 97 98 Oxygen Delivery Method 11/13/23 17:00 Temperature Temperature Source Pulse Rate Respiratory Rate Blood Pressure 184/70 H Blood Pressure Mean 105 Pulse Ox Oxygen Delivery Method Weight Weight: 52.163 kg Body Mass Index (BMI) 20.3 Physical Exam Const alert, oriented x3, no apparent distress, average body habitus and well nourished; Negative for healthy appearing Constitutional Narrative: Anxious appearing, elderly, white female, sitting up in bed, voice is shaky withintermittent word finding difficulties, patient has a fine tremor, appears nontoxic and currently comfortable General Appearance: cooperative HEENT normocephalic, head/scalp atraumatic, hearing grossly normal bilaterally and moist oral mucous membranes Eyes PERRL, EOMs intact bilaterally and conjunctivae normal Eyes Narrative: No scleral icterus Neck no lymphadenopathy and supple Neck Narrative: Bilateral carotid bruits, trachea midline, no thyroid enlargement Resp normal respiratory effort, no retractions, no use of accessory muscles and clearto auscultation bilaterally Auscultation: Negative for rales, rhonchi or wheezes Cardio regular rate, regular rhythm, S1 normal heart sound, S2 normal heart sound, no rub, no gallops and no clicks; Negative for no murmurs Cardio Narrative: Intermittent ectopy, 3 out of 6 systolic murmur loudest at right upper sternal border GI normal to inspection, nondistended, normoactive bowel sounds, soft to palpation and non-tender Extremity no clubbing, cyanosis or edema Extremity Narrative: Pedal pulses and radial pulses are 2+ Skin no rashes or lesions noted, no wounds, skin turgor normal, no petechiae and no mottling Neuro oriented x3, CN's II-XII intact bilaterally and moves all extremities Neuro Narrative: Is able to move right leg but has difficulty moving it due to pain, reflexes arevery brisk 4+ bilateral upper and lower extremities, fine tremor noted on exam, patient with word finding difficulties intermittently and decreased attention totask, no focal deficits noted but patient does have significant generalized weakness Speech: Negative for speech normal Motor Exam: Negative for strength 5/5 throughout Psych Psych Narrative: Affect is flat and patient seems anxious Results Lab / Micro Data Attestation: I reviewed the patient's lab results. 11/13/23 15:03 11/13/23 15:03 Labs: Laboratory Results - last 24 hr 11/13/23 15:03: WBC 5.5, RBC 4.68, Hgb 14.2, Hct 42.0, MCV 89.7, MCH 30.3, MCHC 33.8, RDW Std Deviation 41.2, RDW Coeff of Jase 12.4, Plt Count 269, MPV 8.2, Immature Gran % (Auto) 0.200, Neut % (Auto) 65.7, Lymph % (Auto) 23.1, [place] % (Auto) 8.9, Eos % (Auto) 1.6, Baso % (Auto) 0.5, Absolute Neuts (auto) 3.6, Absolute Lymphs (auto) 1.27, Nucleated RBC % 0, PT 13.1, INR 1.0, APTT 29.4, Sodium 141, Potassium 3.5, Chloride 110 H, Carbon Dioxide 30.0, Anion Gap 1 L, BUN 19 H, Creatinine 0.92, Estim Creat Clear Calc 40.83, Est GFR (MDRD) Af Amer 76, Est GFR (MDRD) Non-Af 63, BUN/Creatinine Ratio 20.7 H, Glucose 99, Calcium 9.2, Troponin I High Sens 8 Imaging Radiology Impression Head/Neck CTA 11/13/23 14:48 IMPRESSION: No acute intracranial findings. No significant major vessel vaso-occlusive disease in the head or neck. No significant interval change from the prior study. Electronically Signed: Aris Soares MD at 16:44 EST , Chest X-Ray 11/13/23 16:05 IMPRESSION: No radiographic evidence of acute cardiopulmonary disease. Electronically Signed: Aris Soares MD at 17:13 EST , Assessment & Plan Assessment/Plan (1) Ataxia: (2) Back pain: (3) Falls: (4) Dysmetria: (5) Memory loss: (6) Systolic murmur: (7) Gait disturbance: (8) Balance disorder: PLAN: Plan Ataxia/dysmetria/memory loss/gait disturbance/balance disorder -Highly doubtful for stroke but will rule out and follow protocol for now -Suspect upper motor neuron lesions as she has significant hyperreflexia -Significant tremor noted on exam as well -Add aspirin 81 mg daily -Check lipids -Continue home statin -Check TSH -Check MRI of the cervical spine and brain with and without contrast -Consult neurology Systolic murmur -Check echocardiogram Chronic low back pain with radicular symptoms -Discussed with patient and there is no acute changes at this time -No change in bowel bladder -Recommend proceeding with outpatient lumbar spine MRI as previously ordered CAD/HPL/HTN/carotid artery disease -Previous PCI in 2015 -Patient currently not on any antiplatelet therapy but will start aspirin for the above -Continue home atorvastatin and check lipids -Continue home colestipol -Hold home antihypertensives until stroke can be ruled out then reinitiate if negative -PRNs per stroke protocol are available GERD/history of peptic ulcer disease -Continue home famotidine Hypothyroidism -Continue home levothyroxine -Check TSH Memory impairment -Continue home donepezil DVT prophylaxis -Lovenox daily CODE STATUS -Full code is verified on admission Charges/Coding Visit Charges Inpatient E&M: 28607 Init Hosp L2 11/13/23 0599 <Electronically signed by Tahira Meadows DO> Cosigner Signature (if applicable): CC: Dr. Tahira Meadows DO; Dr. Armando Orozco MD~ Signed [facility] Work Phone: [phone] 244-236202-20-2024 History of Present illness Narrative* Carlin Huffman PA-C - 10/31/2023 5:08 PM EST Images from the original note were not included. [facility] [place] [facility] NEW PATIENT CLINIC NOTE SERVICE DATE: 10/31/2023 SERVICE TIME: 5:09 PM NAME: Bharti Akbar CHIEF COMPLAINT: Kidney Stone HISTORY OF PRESENT ILLNESS: Bharti Akbar is a 78 year old female presenting as an New Patient for Kidney Stone The patient reports recent back pain and was found to have a small kidney stone on recent US This is a small non-obstructing stone 5 mm, discuss using Flomax to help if stone moves and may pass Discussed urgency and trial of Ditorpan 5 mg , instructions given for need to urinate every 2 hrs if longer will stop it and call office FLUIDS: increase water intake, she has trouble with this due to work schedule LUTS: DYSURIA: no URGENCY: No FREQUENCY:6 per day NOCTURIA: 0 per night STRAINING TO VOID: No EMPTIES COMPLETELY: Yes UTI: No GROSS HEMATURIA: no UA 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: yes Other symptoms: LABS: No results found for: TESTOST No results found for: TESTFREE No results found for: PSA Hematocrit (%) Date Value 09/08/2021 38.3 08/04/2021 29.9 07/08/2021 28.9 No results found for: PSA Creatinine Date Value Ref Range Status 04/15/2021 0.82 0.58 - 0.96 mg/dL Final 07/04/2018 0.81 0.58 - 0.96 mg/dL Final 03/28/2018 0.76 0.58 - 0.96 mg/dL Final 07/18/2017 0.82 0.58 - 0.96 mg/dL Final MEDICATIONS: atorvastatin (LIPITOR) 40 mg tablet AT BEDTIME Cholecalciferol, Vitamin D3, 50 mcg (2,000 unit) cap DAILY traZODone (DESYREL) 50 mg tablet Take 2 tablets by mouth daily at bedtime. donepezil (ARICEPT) 5 mg tablet Take 1 tablet by mouth daily at bedtime. levothyroxine (LEVOXYL) 100 mcg tablet Take 1 tablet by mouth once daily. Take on empty stomach. For Thyroid. clindamycin (CLEOCIN) 300 mg capsule Take 1 capsule by mouth four times daily. lidocaine (SALONPAS) 4 % patch Apply 1 application as directed once daily. colestipol (COLESTID) 1 gram tablet Take 1 g by mouth twice daily. mesalamine DR (DELZICOL) 400 mg capsule Take 1 capsule by mouth two times a day. lisinopril (ZESTRIL, PRINIVIL) 20 mg tablet Take 20 mg by mouth once daily. aspirin, enteric coated (ASPIRIN, ENTERIC COATED) 81 mg EC tablet Take 1 tablet by mouth once daily. COMPOUNDED PRESCRIPTION Home blood pressure monitor. DX: Essential HTN I10 CENTRUM SILVER ORAL TAB Take one(1) tablet daily. carvedilol (COREG) 6.25 mg tablet oxybutynin XL (DITROPAN XL) 5 mg 24 hr tablet Take 1 tablet by mouth once daily. tamsulosin (FLOMAX) 0.4 mg Take 1 capsule by mouth daily at bedtime. venlafaxine ER (EFFEXOR XR) 37.5 mg 24 hr capsule Take 1 capsule by mouth once daily. 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 07/07/2015 HLD (hyperlipidemia) HTN (hypertension) Iron deficiency anemia due to chronic blood loss 03/06/2015 Kidney stone Lens replaced by other means - Right Eye 12/26/2014 Memory loss Osteoarthrosis, unspecified whether generalized or localized, other specified sites Other vitreous opacities - Both Eyes 07/07/2014 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 S/P laser cataract surgery - Right Eye 12/26/2014 S/P LASIK surgery of both eyes - Both Eyes 07/07/2014 Tear film insufficiency, unspecified 12/11/2014 Unspecified constipation PAST SURGICAL HISTORY: PAST SURGICAL HISTORY Procedure Laterality Date APPENDECTOMY 1994 ARTHRP INTERPOS INTERCARPAL/METACARPAL JOINTS Right 10/07/2016 Right thumb CMC arthroplasty ; THYROIDECTOMY TOTAL OR COMPLETE 02/08/2012 COLONOSCOPY FLX DX W/COLLJ SPEC WHEN PFRMD 08/03/2005 Colonoscopy COLONOSCOPY GEN ANES 08/26/2020 Repeat in 5-10 years COLONOSCOPY W/BIOPSY SINGLE/MULTIPLE 06/19/2015 normal colon CORRJ HLX VLGS BNCTY SESMDC W/DOUBLE OSTEOTOMY 2004 RIGHT FOOT DILATION & CURETTAGE DX&/THER NONOBSTETRIC 1979 AFTER MISCARRAGE EGD 08/26/2020 EGD TRANSORAL BIOPSY SINGLE/MULTIPLE 06/19/2015 gastritis ESOPHAGOGASTRODUODENOSCOPY TRANSORAL DIAGNOSTIC 08/03/2005 EGD PAST SURGICAL HISTORY OF 1975 RECTAL WALL REPAIR PAST SURGICAL HISTORY OF 2002 Lasik Surgery on both eyes ([place]) PAST SURGICAL HISTORY OF 2010 broken neck PAST SURGICAL HISTORY OF 08/2015 Bare metal stent/ graft of heart x 1 PRQ CARDIAC STENT W/ANGIO 1 VSL 09/01/2015 Mid Lad TONSILLECTOMY PRIMARY/SECONDARY <AGE 12 TOTAL ABDOMINAL HYSTERECT W/WO RMVL TUBE OVARY 1994 Hysterectomy, TAHBSO XCAPSL CTRC RMVL INSJ IO LENS PROSTH W/O ECP 12/25/2014 Cataract Extraction with Femtosecond Laser (LenSx)-right eye FAMILY HISTORY: FAMILY HISTORY Problem Relation Age of Onset Alzheimer's Disease Mother Heart Mother Heart Father 83 years old Hypertension Father Stroke Father Cataract Father other (parkinson's) Father Colon Cancer Maternal Aunt Diabetes Maternal Grandmother Diabetes Maternal Aunt other (ibs) Brother Heart Sister other (knee replacements) Sister other (cataract surgery) Sister Heart Sister SOCIAL HISTORY: Social Connections: Socially Integrated (09/12/2023) Social Connection and Isolation Panel [NHANES] Frequency of Communication with Friends and Family: Three times a week Frequency of Social Gatherings with Friends and Family: Three times a week Attends [employer] Services: More than 4 times per year Active Member of Clubs or Organizations: Not on file Attends Club or Organization Meetings: 1 to 4 times per year Marital Status: REVIEW OF SYSTEMS: GENERAL: No fever, chills, weight loss, or fatigue. ENMT: Negative CARDIOVASCULAR:NO CHEST PAIN, PALPITATIONS, ANKLE EDEMA RESPIRATORY: No chronic cough, wheezing, dyspnea, hemoptysis. GENITOURINARY: SEE HPI MUSCULOSKELETAL:NO CHRONIC BACK PAIN, ARTHRITIS, CHRONIC NECK PAIN SKIN: NO VARICOSE VEINS, RASH, ABNORMAL ITCHING HEME/LYMPH/IMMUNE:Negative for prolonged bleeding, bruising easily or swollen nodes NEUROLOGICAL: NO HEADACHES, NUMBNESS, SEIZURES, STROKE DIABETES: no All other systems reviewed and are negative PHYSICAL EXAMINATION: Blood pressure 136/70, pulse 79, temperature 36.4 C (97.5 F), height 158.8 cm (5' 2.5), weight 55 kg (121 lb 3.2 oz), SpO2 97%. GENERAL: WNL nutrition, no deformities, healthy appearing NEURO: Awake, alert and oriented x 3 and Normal gait PSYCH: No signs of depression, anxiety, or agitation ENMT (Ear, Nose, Mouth, Throat): No masses, adenopathy, icterus. Thyroid nonpalpable RESP: NL effort, no retractions or purse-lip breathing. CV: No extremity swelling, varices, edema, pallor, erythema GASTROINTESTINAL: Soft, nontender, nondistended, no masses. HERNIAS: None SKIN: No rash, lesions No palpable lymphadenopathy MUSCULOSKELETAL: Extremities normal. No deformities, edema, clubbing or skin discoloration. PROBLEM LIST REVIEW: Yes LABS: Results for orders placed or performed in visit on 10/31/23 UA DIP, URINE (POC) Result Value Ref Range GLUCOSE UA (POCT) Negative Negative mg/dL BILIRUBIN UA (POCT) Negative Negative KETONE UA (POCT) Negative Negative mg/dL SPECIFIC GRAVITY UA (POCT) 1.020 1.005 - 1.030 HEMOGLOBIN/BLOOD UA (POCT) Small (A) Negative PH UA (POCT) 7.0 4.5 - 8.0 PROTEIN UA (POCT) Negative Negative mg/dL UROBILINOGEN UA (POCT) 0.2 Normal E.U./dL NITRITE UA (POCT) Negative Negative LEUKOCYTES UA (POCT) Negative Negative COLOR UA (POCT) Yellow CLARITY UA (POCT) Clear *Note: Due to a large number of results and/or encounters for the requested time period, some results have not been displayed. A complete set of results can be found in Results Review. PROCEDURES: IMAGING: Renal US RESULT: Right Kidney: -Renal length: 9.7 cm -Parenchyma: Normal parenchymal echogenicity. Normal parenchymal thickness. -Collecting system: No definite hydronephrosis. Extrarenal pelvis is noted. -Calculus: No echogenic, shadowing calculus. -Lesion: None. Left Kidney: -Renal length: 10.2 cm -Parenchyma: Normal parenchymal echogenicity. Normal parenchymal thickness. -Collecting system: No hydronephrosis. -Calculus: There is a 5 mm echogenic focus in the lower pole. -Lesion: None. Bladder: Partially decompressed. Prevoid volume 81 cc. IMPRESSION/PLAN: 78 year old female with 1. Urgency of urination - ICD9: 788.63, ICD10: R39.15 (primary diagnosis) 2. Kidney stone - ICD9: 592.0, ICD10: N20.0 > Reviewed US > Rx for Ditropan 5 mg to see if this helps with her urgency, but know if not urinating every 2 hrs will stop it and call the office > Rx for Flomax 0.4 mg to have on had if stone moves and may help with passing it. > 3 mo. Appt w/ Hector Huffman, KEESHA, [place], PAGalinaC for new Rx Follow-up I spent a total of 30 minutes on the date of the service which included preparing to see the patient, face to face patient care, completing clinical documentation, obtaining and/or reviewing separately obtained history, performing a medically appropriate examination, counseling and educating the pat ient/family/caregiver, ordering medications, tests, or procedures, and care coordination. KEESHA [place], [place], TRUPTI documented in this encounterSheltering [facility]02-20-[facility]24 Miscellaneous Notes* Telephone Encounter - Rosalba Castle - 10/31/2023 2:51 PM EST Spoke with the patient and she is aware of MRI appointment on 11/02/23 declined to r/s spine consult, Movement disorders referral and PT. Patient did mention she would like to try aqua therapy and wasgoing to look into facilities and then request order from Dr Granger. * Telephone Encounter - Breanne Baig LPN - 10/31/2023 11:57 AM EST TC to pt who voiced understanding. Breanne Baig LPN * Telephone Encounter - Breanne Baig LPN - 10/30/2023 4:55 PM EST MRI rescheduled for 11-02-23. TC to pt with no answer. Left VM to return call. Breanne Baig LPN * Telephone Encounter - Breanne Baig LPN - 10/30/2023 4:05 PM EST TC to insurance, however, no extension is available without starting another authorization. PSS while attempt to get rescheduled prior to end of the month. Breanne Baig LPN * Telephone Encounter - Breanne Baig LPN - 10/27/2023 8:46 AM EST Would you be able to see if we can get her rescheduled? Breanne Baig LPN * Telephone Encounter - Maya Katz PA-C - 10/26/2023 10:50 AM EST Peer to Peer completed. MRI of the lumbar spine approved with auth number [id number]. Approved untilthe end of October, may need to call back for extension of this as patient has MRI scheduled on 11/24/23. * Telephone Encounter - Breanne Baig LPN - 10/25/2023 1:06 PM EST It looks like this needs a peer to peer. See TE dated 10-18-23 with information. Breanne Baig LPN * Telephone Encounter - Rosalba Castle - 10/25/2023 12:51 PM EST Please note MRI has been cancelled as insurance denied and Cnn denied . documented in this encounterSheltering [facility]02-15-2024 Miscellaneous Notes* Telephone Encounter - Tahira Perla Ma - 10/26/2023 1:43 PM EST Pt notified. Transferred to [facility] to set up Urology consult. Tahira Perla Ma * Telephone Encounter - Emelia Lynn APRN.PHARMACOVIGILANCE SAFETY EXPERT - 10/26/2023 1:09 PM EST Can you please call the patient and let her know I reviewed her ultrasound of bladder/kidneys. Ultrasound shows a possible left kidney stone. This can cause pain. I would recommend a consult with urology. This has been placed. Please let me know if she has any questions. Thank you. Emelia Lynn APRN.PHARMACOVIGILANCE SAFETY EXPERT documented in this encounterSheltering Arms Hospital02-15-2024 History of Present illness Narrative* Donna Lu RDMS - 10/26/2023 10:45 AM EST Radiology Service Progress Note PATIENT NAME: Bharti Akbar DATE OF SERVICE: October 26, 2023 TIME: 11:57 AM PATIENT IDENTITY VERIFICATION COMPLETED USING TWO (2) IDENTIFIERS: Name and Date of confirmedby patient verbally. FALL SCREENING: Has the patient had 2 falls in the last year or 1 fall with injury or currently using an Ambulatory Assistive Device (Walker, Cane, Wheelchair, Crutches, etc.)? No PATIENT GENDER DATA: Female. status: : No status: NO. PATIENT RELEVANT IMPLANT DATA REVIEWED: Not Applicable PATIENT PRESENTS WITH AN IMPLANTABLE OR ATTACHED CARTON FORMING MACHINE HELPER: No RADIOLOGY DEPARTMENT: Ultrasound PERIPHERAL IV DATA: Not applicable SIGNED BY: Donna Lu RDMS October 26, 2023 11:57 AM documented in this encounterSheltering [facility] Hospital02-07-2024 Miscellaneous Notes* Telephone Encounter - Wendy Salazar - 10/18/2023 5:17 PM EST Received an email from the provider for a [id number] request. Called Rosa [phone] and spoke with David. Call Reference: David 10/18/2023 Reason for the denial is because no clinical notes were attached to the case. Rosa ID# [id number] The case closed 10/13/2023 and to late to send in more clinical information. The only option is for the provider to call for a reconsideration [id number] to add clinical information by talking directly to the hifk-ge-qjpv director. The reconsideration [id number] must be completed before Oct 27, 2023. The below information is for a peer to peer and appeal for a service you have requested. Patient Information Patient Last Name Raffy Patient First Name Bharti Date of 1945 Clinical Clearance / Financial Clearance Status Pending Clinical Clearance Notifications are supported by our kimberley policy and used when an immediate payer source is not available. The CCN process can allow cases to be completed while still working to obtain payer s authorization due to urgency or medical necessity. This process should not preclude usfrom completing the steps needed to secure authorization such us P2P and appeal as this will still allow us to receive the appropriate reimbursement. Denial Overview Denial Type Payer Clinical Guidelines Not Met Denial Rationale Your doctor is checking you for a narrowing of the area that holds the spinal cord. Your doctor ordered an MRI of your lower back. An MRI is a way to take pictures of the inside of your body. This test should be used if it is likely to result in a specific change in your treatment. Such a change might be related to the need for surgery or a procedure. We reviewed the notes we have. The notes do not show that you are going to have surgery or a procedure. Based on the information we have, this test is not medically necessary for you at this time. We used [employer] Management Clinical Guideline titled Imaging of the Spine to make this decision. You may view this guideline at [email or web address]. Date of Service 11/01/2023 Is Peer to Peer Available? (Instructions below) Yes Peer to Peer Deadline Must be completed by 10/26/2023 Appeal Deadline (Instructions below) 180 days from the denial date on: 10/13/2023 Insurance Case Information Insurance Name ROSA Patient's Insurance Case# [id number] Ordering Provider MAYA KATZ Approved Services N/A Denied Services [id number] LUMBAR SPINE WO IVCON Alternative Recommendation N/A *Service which can be approved in place of denied service. Clinical Documentation Provided Peer to Peer Instructions Peer to Peer Does Peer to Peer need to be scheduled? Yes Who can complete the Peer to Peer? DO,FERRY HAND, MD, PA Additional Peer to Peer Instructions You can call for the peer to peer at the date and time of your convenience Appeal Instructions Appeal Address [address] [place] [phone] Appeal Required Form(s) N/A Additional Appeal Instructions Send it attention to: Appeals department and include: coversheet with patient's and case information, a formal appeal letter and attach any pertinent supporting clinical documentation. Facility Information Location [facility] [id number] Tax ID# [id number] documented in this encounterSheltering [facility] Hospital02-02-2024 Miscellaneous Notes* Telephone Encounter - Tahira Perla Ma - 10/13/2023 1:27 PM EST Pt notified. Transferred to PSS to set up MRI lumbar that she has not scheduled and US. Tahira Perla Ma * Telephone Encounter - Kim Sena LPN - 10/12/2023 2:55 PM EST TC to pt. LM to call office, ask for triage nurse to get results. Kim Sena LPN * Telephone Encounter - Emelia Lynn APRN.FREDY - 10/12/2023 2:46 PM EST Can you please call the patient and let her know that I reviewed her urine results. Urine was positive for bacteria as well as calcium oxalate. Calcium oxalate can be a sign of a possible kidney stone. I have placed an order for an ultrasound to further evaluate this. I would like her to continue with antibiotic as prescribed and stay well-hydrated. She may schedule anytime to have this ultrasound completed. Any worsening symptoms increasing pain,fever, chills I would like her to go to the ER. Emelia Lynn APRN.FREDY documented in this encounterSheltering [facility] Hospital02-01-2024 Miscellaneous Notes* Telephone Encounter - Armando Orozco MD - 10/12/2023 11:57 AM EST OK to refill as ordered Armando Orozco MD * Telephone Encounter - Shantal Najera LPN - 10/12/2023 9:22 AM EST Patient calling asking for new rx for Trazodone she takes 2 tablets at bedtime, rx says one tablet.Patient requesting 90 day rx Please advise Patient has been identified by name and date of : Patient phones for refill(s): Requested Prescriptions Pending Prescriptions Disp Refills traZODone (DESYREL) 50 mg tablet 180 tablet Sig: Take 1 tablet by mouth daily at bedtime. 2 tabs Date of last office visit in primary care: 2023 Date of next office visit in primary care: Visit date not found Please advise. Thank you. Shantal Najera LPN. documented in this encounterSheltering [facility] Hospital01-03-2024 History of Present illness Narrative* Roberta Schilling RT(R) - 09/13/2023 1:50 PM EST Radiology Service Progress Note PATIENT NAME: Bharti Akbar DATE OF SERVICE: September 13, 2023 TIME: 1:45 PM PATIENT IDENTITY VERIFICATION COMPLETED USING TWO (2) IDENTIFIERS: Name and Date of confirmedby patient verbally. FALL SCREENING: Has the patient had 2 falls in the last year or 1 fall with injury or currently using an Ambulatory Assistive Device (Walker, Cane, Wheelchair, Crutches, etc.)? No PATIENT GENDER DATA: Female. status: : No status: NO. PATIENT RELEVANT IMPLANT DATA REVIEWED: Not Applicable RADIOLOGY DEPARTMENT: General X-ray: Exam(s) Completed: Chest X-Ray PERIPHERAL IV DATA: Not applicable SIGNED BY: RT Maylin(R) September 13, 2023 1:45 PM documented in this encounterSheltering Arms Hospital11-15-2023 History of Present illness Narrative* Juan Kilpatrick, FREDY - 07/26/2023 8:56 PM ESTAssociated Order(s): LG Jt Injection/Arthrocentesis: R knee; LG Jt Injection/Arthrocentesis: L knee Post-Procedure Diagnose(s): Primary osteoarthritis of both knees Bharti Beard Raffy 1945 CC: 77 y.o. is a she with bilateral knee pain. Chief Complaint Patient presents with Left Knee - Pain Right Knee - Pain . HPI: Knee Pain: Patient presents to the office today with complaints of bilateral knee pain. She denies any injury and states that she has had pain in both knees for years. She reports they are aboutequal in regards to pain levels. She reports that the majority of pain is more anterior. She will occasionally have very sharp shooting pains in the front of her knee which do end up resolving. Then she continues to have aching throughout the knees. She does work on her feet for long periods of daystanding on concrete which does make the knees hurt worse. She has tried different types of bracingbut unfortunately it actually makes her symptoms worse. She does take OTC pain medications which does seem to help with her discomfort. PMH: Allergies Allergen Reactions Acetaminophen Restless legs Codeine Current Outpatient Medications: aspirin 81 MG EC tablet, Take 1 (one) tablet (81 mg total) by mouth daily ., Disp: 30 tablet, Rfl: 11 atorvastatin (LIPITOR) 40 MG tablet, Take 1 (one) tablet (40 mg total) by mouth daily ., Disp: 30 tablet, Rfl: 11 hydroCHLOROthiazide (HYDRODIURIL) 25 MG tablet, Take 1 (one) tablet (25 mg total) by mouth daily .,Disp: 30 tablet, Rfl: 11 levothyroxine (SYNTHROID, LEVOTHROID) 100 MCG tablet, Take 1 (one) tablet (100 mcg total) by mouth once daily ., Disp: , Rfl: lisinopriL (PRINIVIL,ZESTRIL) 20 MG tablet, Take 1 (one) tablet (20 mg total) by mouth daily with lunch ., Disp: 30 tablet, Rfl: 11 meloxicam (MOBIC) 15 MG tablet, Take 1 (one) tablet (15 mg total) by mouth as needed for pain ., Disp: , Rfl: metoprolol succinate (TOPROL-XL) 50 MG 24 hr tablet, Take 1 (one) tablet (50 mg total) by mouth daily ., Disp: 30 tablet, Rfl: 11 multivitamin (multivitamin) per tablet, Take 1 (one) tablet by mouth daily ., Disp: , Rfl: Past Medical History: Diagnosis Date Arthritis Coronary artery disease Disease of thyroid gland Hyperlipidemia Hypertension Past Surgical History: Procedure Laterality Date CARDIAC CATHETERIZATION 09/01/2015 with stent placement CARDIAC CATHETERIZATION N/A 04/19/2021 Procedure: Left Heart Cath Possible PTCA/Stent; Surgeon: Antonio Tian MD; Location: [facility]; Service: Cardiovascular CATARACT EXTRACTION, BILATERAL Bilateral COLONOSCOPY N/A 05/31/2021 Procedure: COLONOSCOPY; Surgeon: Anjel Churchill MD; Location: Endo; Service: Gastroenterology CORONARY STENT PLACEMENT HYSTERECTOMY (CERVIX REMOVED) ORTHOPEDIC SURGERY right foot and right hand surgery REFRACTIVE SURGERY Bilateral THYROIDECTOMY Social History Socioeconomic History Marital status: Tobacco Use Smoking status: Never Smokeless tobacco: Never Vaping Use Vaping Use: Never used Substance and Sexual Activity Alcohol use: Not Currently Drug use: Never The patient's past medical history, surgical history, social history, family history, medications and allergies were reviewed with the patient today and are available in the chart for further review. ROS: Review of Systems Constitutional: Negative for activity change and fatigue. HENT: Negative for congestion, hearing loss and trouble swallowing. Eyes: Negative for visual disturbance. Respiratory: Negative for chest tightness and shortness of breath. Cardiovascular: Negative for chest pain and palpitations. Gastrointestinal: Negative for abdominal pain, diarrhea, nausea and vomiting. Endocrine: Negative for polydipsia, polyphagia and polyuria. Genitourinary: Negative for decreased urine volume, difficulty urinating and hematuria. Musculoskeletal: Positive for arthralgias, gait problem, joint swelling and myalgias. Skin: Negative for color change, rash and wound. Allergic/Immunologic: Negative for immunocompromised state. Neurological: Negative for dizziness, weakness, light-headedness and numbness. Hematological: Does not bruise/bleed easily. Psychiatric/Behavioral: Negative for confusion and sleep disturbance. The patient is not nervous/anxious. PE: Physical Exam Constitutional: Appearance: She is well-developed. HENT: Head: Normocephalic. Eyes: Pupils: Pupils are equal, round, and reactive to light. Cardiovascular: Rate and Rhythm: Normal rate and regular rhythm. Pulmonary: Effort: Pulmonary effort is normal. Breath sounds: Normal breath sounds. Abdominal: General: Bowel sounds are normal. Palpations: Abdomen is soft. Musculoskeletal: General: Swelling and tenderness present. Normal range of motion. Cervical back: Normal range of motion and neck supple. Right knee: No effusion. Instability Tests: Medial Audrey test negative and lateral Audrey test negative. Left knee: No effusion. Instability Tests: Medial Audrey test negative and lateral Audrey test negative. Skin: General: Skin is warm and dry. Neurological: Mental Status: She is alert and oriented to person, place, and time. ORTHO: Right Knee Exam Tenderness The patient is experiencing tenderness in the lateral joint line, patella, medial joint line and medial retinaculum. Range of Motion Extension: normal Flexion: 120 Tests Audrey: Medial - negative Lateral - negative Varus: negative Valgus: negative Brittany: Anterior - negative Drawer: Anterior - negative Posterior - negative Other Erythema: absent Scars: absent Sensation: normal Pulse: present Swelling: mild Effusion: no effusion present Left Knee Exam Tenderness The patient is experiencing tenderness in the medial retinaculum, lateral joint line, patella and medial joint line. Range of Motion Extension: normal Flexion: 120 Tests Audrey: Medial - negative Lateral - negative Varus: negative Valgus: negative Brittany: Anterior - negative Drawer: Anterior - negative Posterior - negative Other Erythema: absent Scars: absent Sensation: normal Pulse: present Swelling: mild Effusion: no effusion present Imaging: Bilateral knee: RIGHT KNEE: No acute osseous abnormality. No subluxation or dislocation. Mild medial knee compartment joint space narrowing. Minimal spurring of the patellofemoral compartment. Small superior patellar enthesophyte. Chondrocalcinosis of the medial and lateral knee compartments. LEFT KNEE: No acute osseous abnormality. No subluxation or dislocation. Mild medial knee compartment joint space narrowing. Minimal spurring of the patellofemoral compartment. No significant joint effusion. Assessment/Plan: After examination and reviewing of the patient x-ray images we discussed treatmentoptions for the knees. I did offer her cortisone injections which she gladly excepted. I did this without complications and she tolerated this well. I did explain that she is able to have these every3 months if they provide her with adequate pain relief. She does verbalize understanding and is in agreement with the treatment plan. Diagnosis: Problem List Items Addressed This Visit None Visit Diagnoses Chronic pain of both knees LG Jt Injection/Arthrocentesis: R knee Performed by: Juan Kilpatrick CNP Authorized by: Juan Kilpatrick CNP CPT 89397 - Large Joint Arthrocentesis: Consent given by: Patient Time out: Immediately prior to the procedure a time out was called Physician or proceduralist has discussed critical or nonroutine steps, procedure duration and anticipated blood loss: Yes Supporting Documentation: Indications: Pain, joint swelling and diagnostic evaluation Procedure Details: Location: Knee Site: R knee Prep: patient was prepped and draped in usual sterile fashion Needle size: 22 G Approach: Anterolateral Medications: 40 mg triamcinolone acetonide 40 mg/mL Anesthetic used: Lidocaine 1% Anesthetic amount (mL): 2 Patient tolerance: Patient tolerated the procedure well with no immediate complications LG Jt Injection/Arthrocentesis: L knee Performed by: Juan Kilpatrick CNP Authorized by: Juan Kilpatrick CNP CPT 13369 - Large Joint Arthrocentesis: Consent given by: Patient Time out: Immediately prior to the procedure a time out was called Physician or proceduralist has discussed critical or nonroutine steps, procedure duration and anticipated blood loss: Yes Supporting Documentation: Indications: Pain and diagnostic evaluation Procedure Details: Location: Knee Site: L knee Prep: patient was prepped and draped in usual sterile fashion Needle size: 22 G Approach: Anterolateral Medications: 40 mg triamcinolone acetonide 40 mg/mL Anesthetic used: Lidocaine 1% Anesthetic amount (mL): 2 Patient tolerance: Patient tolerated the procedure well with no immediate complications Follow Up: No follow-ups on file. Juan Kilpatrick CNP documented in this [id number] History of Present illness Narrative* Maciej Birmingham Jr., JULIAN - 07/05/2023 2:28 PM EDT HPI Chief Complaint Patient presents with Foot Pain Left foot pain since beginning of May. Had a fall and toes caught under her. Went to [facility] and they said nothing was broken. She is having burning pain that feel very hot. She also has open sores between toes 2 and 3. Patient is a pleasant 77-year-old female who comes in today for excruciating left foot pain. She states that in May she is worried that she somehow irritated her foot hurting her second and third toe. States this is where the pain is emanating from. Additionally, and separately, she complains of bilateral knee plain right worse than left. States that she does have aching and soreness in her knees now for quite a long time many years wonders whatcan be done about her knee pain. Past Medical History: Diagnosis Date Arthritis Coronary artery disease Disease of thyroid gland Hyperlipidemia Hypertension Past Surgical History: Procedure Laterality Date CARDIAC CATHETERIZATION 09/01/2015 with stent placement CARDIAC CATHETERIZATION N/A 04/19/2021 Procedure: Left Heart Cath Possible PTCA/Stent; Surgeon: Antonio Tian MD; Location: [facility]; Service: Cardiovascular CATARACT EXTRACTION, BILATERAL Bilateral COLONOSCOPY N/A 05/31/2021 Procedure: COLONOSCOPY; Surgeon: Anjel Churchill MD; Location: Endo; Service: Gastroenterology CORONARY STENT PLACEMENT HYSTERECTOMY (CERVIX REMOVED) ORTHOPEDIC SURGERY right foot and right hand surgery REFRACTIVE SURGERY Bilateral THYROIDECTOMY Social History Socioeconomic History Marital status: Tobacco Use Smoking status: Never Smokeless tobacco: Never Vaping Use Vaping Use: Never used Substance and Sexual Activity Alcohol use: Not Currently Drug use: Never Review of Systems Physical Exam Patient is AOx3. Linear and appropriate humor and thought process. Vascular: DP PT pulses are easily palpable 2 out of 4. CFT is fair no edema. Derm: Mild hyperkeratosis between her second and third toe but no open wounds no ulcers no rashes no deep nodules. Neuro: Light touch is normal. Musculoskeletal: Mild pain to the callus lesion. Otherwise ankle subtalar is full and pain-free without any clicking or catching. Impression/Plan Problem List Items Addressed This Visit None Visit Diagnoses Left foot pain - Primary Relevant Medications ammonium lactate (AMLACTIN) 12 % cream Other Relevant Orders XR Foot Left 3+ Views (Standard) Callus of foot Relevant Medications ammonium lactate (AMLACTIN) 12 % cream Chronic pain of both knees Relevant Orders Ambulatory referral to Orthopedics Patient is a pleasant 77-year-old female with early arthritis-first MPJ and bilateral lateral painful callus. Additionally, she is with bilateral knee pain and arthritis pain therefore did place an orthopedic consult with FREDY Diana to work up. Follow-up in 3 months for foot foot care and reevaluation. documented in this [id number] Instructions* Patient Instructions* Maciej Birmingham Jr., DPM - 07/05/2023 1:50 PM EDT Apply lotion to toes twice per day documented in this [id number] Miscellaneous Notes* Telephone Encounter - Kathi Velazco RN - 07/05/2023 12:57 PM EDT Called and left a detailed voicemail notifying patient of providers message. Clinic phone number was left in case patient had any questions. Kathi Velazco RN * Telephone Encounter - Emelia Lynn APRN.CNP - 07/05/2023 12:20 PM EDT Please let the patient know that I sent in her thyroid medication to drug [facility] in [place]. Hair loss can be common with thyroid disorders. She may consider having a consult with dermatology.They make products [id number] as well that she may try. This includes minoxidil topical or Rogaine. The following approved medication requests have been transmitted electronically. Requested Prescriptions Signed Prescriptions Disp Refills levothyroxine (LEVOXYL) 100 mcg tablet 90 tablet 1 Sig: Take 1 tablet by mouth once daily. Take on empty stomach. For Thyroid. Authorizing Provider: EMELIA LYNN APRN.CNP * Telephone Encounter - Rosalba Carlos RN - 07/05/2023 11:30 AM EDT Patient is agreeable to same thyroid medication dose however would like provider to know she feels that her hair loss has gotten worse over the last month or so. States she has been having intermittent hair loss over several years and was not sure if it was thyroid related or not, but wanted provider to know about it being worse, she believes. Pt asking to use [facility] pharmacy. Please call patient back with provider's response/update. Thank you. * Telephone Encounter - Emelia Lynn APRN.CNP - 07/05/2023 11:19 AM EDT Can you please call the patient back and let her know that her thyroid testing was low normal. As long as she is feeling well she can continue with current medication. Please let her know that [facility] pharmacy is unable to fill medications at this time to her due to a water leak. Please verify if she has another pharmacy she would like me to send her thyroid medication to. Emelia Lynn APRN.CNP * Telephone Encounter - Rosalba Carlos RN - 07/05/2023 10:47 AM EDT Patient calling with 2 requests. Asking for provider to advise on her recent thyroid lab results from 06/28. Reports she has 2 days of thyroid medication left. Asking if Emelia Cesar CNP would advise on results due to PCP [facility]OO today. Uses [facility] pharmacy for any thyroid medication. Please call pt back with response today, if possible. Pt was ordered consult for Aquatic Therapy by Emelia on 03/29/23 and has not proceeded with it yet. Pt to call back with name of Aquatic Therapy program/facility she wishes to use and Fax #, so that PCP office can fax referral information. Rosalba Carlos RN documented in this encounterSheltering Arms Hospital10-13-2023 Miscellaneous Notes* Telephone Encounter - Tahira Perla Ma - 06/23/2023 4:54 PM EDT Detailed message left on pt identified VM notifying her that labs are in. Tahira Perla Ma * Telephone Encounter - Armando Orozco MD - 06/23/2023 4:44 PM EDT OK to check thyroid labs as ordered Armando Orozco MD * Telephone Encounter - Kim Myers RN - 06/23/2023 3:17 PM EDT Pt calling in with concerns of her hair falling out for the last month. States it gets all over herclothes. Also noticing more fatigue and having about 2-3 headaches per day but they only last about6-7 mins. Pt wondering about her thyroid. 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 documented in this encounterSheltering Arms Hospital09-01-2023 History of Present illness Narrative* Sanna Rubin, GLORIA.PHARMACOVIGILANCE SAFETY EXPERT - 05/12/2023 3:08 PM EDT Chief Complaint Patient presents with: Pain (foot): Fell- 2 weeks ago, Sores between toes HPI Bharti Akbar is a 77 year old female who presents here today for Above Complaints. Bharti is an established patient of Dr. Ernesto MD. She is a new patient to me today. Per TE: Pt calling and reports continued left foot pain after a fall. Pt was evaluated in [facility] on05/05 and left foot xray was negative. Pt was advised as copied: No acute fractures noted on x-ray. Degenerative changes noted. Sprain of ligament tendon. Treat conservatively at this time follow-up with 5 to 7 days for repeat BP check and evaluation of foot. Patient was educated on supportive therapies. Patient was instructed to immediately proceed to emergency room for any new, worsening, or symptoms lasting longer than anticipated. Today pt reports 5/10 left foot pain at rest and 8/10 when walking. Pain radiates toward left ankle. Pt feels swelling may be a little worse than 8/25 above left great toe area. Bruising on 2nd toe. Also reports she noted 2 open areas, smaller than pencil erasers, in between her 2nd and 3rd toes, but difficult to see and are painful. Has tried soaking foot, applying iodine to sores. Wearing tennis type shoes. Reports she has to work and unable to elevate left foot when she works. Denies numbness or tingling. Taking tylenol but only helps pain minimally. Pt requesting evaluation of left foot further. Today in office... Wound in between big toe and 2nd toe that is burning. Toes rubbing together from swelling. Able to bear weight on extremity. Swelling is improved but still persistent. Unable to elevate leg at work. No other concerns or complaints. Past medical history, appointments, medications, allergies reviewed. 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 07/07/2015 HLD (hyperlipidemia) HTN (hypertension) Iron deficiency anemia due to chronic blood loss 03/06/2015 Lens replaced by other means - Right Eye 12/26/2014 Memory loss Osteoarthrosis, unspecified whether generalized or localized, other specified sites Other vitreous opacities - Both Eyes 07/07/2014 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 S/P laser cataract surgery - Right Eye 12/26/2014 S/P LASIK surgery of both eyes - Both Eyes 07/07/2014 Tear film insufficiency, unspecified 12/11/2014 Unspecified constipation Previous Surgical History PAST SURGICAL HISTORY Procedure Laterality Date APPENDECTOMY 1994 ARTHRP INTERPOS INTERCARPAL/METACARPAL JOINTS Right 10/07/2016 Right thumb CMC arthroplasty ; THYROIDECTOMY TOTAL OR COMPLETE 02/08/2012 COLONOSCOPY FLX DX W/COLLJ SPEC WHEN PFRMD 08/03/2005 Colonoscopy COLONOSCOPY GEN ANES 08/26/2020 Repeat in 5-10 years COLONOSCOPY W/BIOPSY SINGLE/MULTIPLE 06/19/2015 normal colon CORRJ HALLUX VALGUS W/SESMDC W/2 OSTEOT 2004 RIGHT FOOT DILATION & CURETTAGE DX&/THER NONOBSTETRIC 1979 AFTER MISCARRAGE EGD 08/26/2020 EGD TRANSORAL BIOPSY SINGLE/MULTIPLE 06/19/2015 gastritis ESOPHAGOGASTRODUODENOSCOPY TRANSORAL DIAGNOSTIC 08/03/2005 EGD PAST SURGICAL HISTORY OF 1975 RECTAL WALL REPAIR PAST SURGICAL HISTORY OF 2002 Lasik Surgery on both eyes ([place]) PAST SURGICAL HISTORY OF 2010 broken neck PAST SURGICAL HISTORY OF 08/2015 Bare metal stent/ graft of heart x 1 PRQ CARDIAC STENT W/ANGIO 1 VSL 09/01/2015 Mid Lad TONSILLECTOMY PRIMARY/SECONDARY <AGE 11 TOTAL ABDOMINAL HYSTERECT W/WO RMVL TUBE OVARY 1994 Hysterectomy, TAHBSO XCAPSL CTRC RMVL INSJ IO LENS PROSTH W/O ECP 12/25/2014 Cataract Extraction with Femtosecond Laser (LenSx)-right eye Family History FAMILY HISTORY Problem Relation Age of Onset Alzheimer's Disease Mother Heart Mother Heart Father 83 years old Hypertension Father Stroke Father Cataract Father other (parkinson's) Father Colon Cancer Maternal Aunt Diabetes Maternal Grandmother Diabetes Maternal Aunt other (ibs) Brother Heart Sister other (knee replacements) Sister other (cataract surgery) Sister Heart Sister Patient Allergies ALLERGIES Allergen Reactions Contrast Dye [Iodin* Itching Pt felt like she was going to or have a seizure, per pt Acetaminophen Other: See Comments Very tense, jittery Albuterol Intolerance Amoxil [Amoxicillin] Other: See Comments Thick tongue Clindamycin Swelling Codeine Vomiting Diatrizoate Meglumi* Itching Dyazide [Triamteren* Intolerance incontinence urine Erythromycin GI Upset Flexeril [Cyclobenz* Mental Status Change Oxycodone Vomiting Oxycontin [Oxycodon* GI Upset, Vomiting Tessalon Perles [Be* GI Upset Tetanus Vaccines An* Vicodin [Hydrocodon* Intolerance Twitching, shaky Current Medications Current Outpatient Medications on File Prior to Visit Medication Sig traZODone (DESYREL) 50 mg tablet Take 50 mg by mouth daily at bedtime. 2 tabs clindamycin (CLEOCIN) 300 mg capsule Take 1 capsule by mouth four times daily. levothyroxine (LEVOXYL) 100 mcg tablet Take 1 tablet by mouth once daily. Take on empty stomach. For Thyroid. lidocaine (SALONPAS) 4 % patch Apply 1 application as directed once daily. colestipol (COLESTID) 1 gram tablet Take 1 g by mouth twice daily. metoprolol tartrate, short acting, (LOPRESSOR) 50 mg tablet Take 50 mg by mouth once daily. lisinopril (ZESTRIL, PRINIVIL) 20 mg tablet Take 20 mg by mouth once daily. aspirin, enteric coated (ASPIRIN, ENTERIC COATED) 81 mg EC tablet Take 1 tablet by mouth once daily. COMPOUNDED PRESCRIPTION Home blood pressure monitor. DX: Essential HTN I10 CENTRUM SILVER ORAL TAB Take one(1) tablet daily. venlafaxine ER (EFFEXOR XR) 37.5 mg 24 hr capsule Take 1 capsule by mouth once daily. (Patient not taking: Reported on 03/29/2023) mesalamine DR (DELZICOL) 400 mg capsule Take 1 capsule by mouth twice daily. (Patient not taking: Reported on 03/29/2023) No current facility-administered medications on file prior to visit. Social History Social History Tobacco Use Smoking status: Never Smokeless tobacco: Never Substance Use Topics Alcohol use: Yes Comment: special occasions Drug use: No Comment: coffee REVIEW OF SYSTEMS: as above Reviewed relevant PMHx, PSHx, Social Hx, current medications and allergies. Review of Symptoms REVIEW OF SYSTEMS See HPI. EXAM: BP 132/78 (BP Site: Left Arm, BP Position: Sitting, BP Cuff Size: Regular Adult) Pulse 77 Resp 16 Wt 55.5 kg (122 lb 6.4 oz) SpO2 100% BMI 22.03 kg/m General Appearance: Well appearing, alert, in no acute distress, well-hydrated, well nourished.. Skin: Skin color, texture, turgor normal, no suspicious rashes or lesions, Positives: blister between first and 2nd toes on L foot. Mild swelling to top of foot and toes. Head: Normocephalic, no masses, lesions, tenderness or abnormalities. Extremities: No deformities, edema, skin discoloration, clubbing or cyanosis. Good capillary refill. . Musculoskeletal: No joint swelling, deformity, or tenderness. Peripheral Pulses: Normal. Health Maintenance List SHINGRIX VACCINE(2 of 3) due on 01/04/2013 BP CONTROLLED (<130/80) due on 05/01/2020 ADVANCE DIRECTIVE DISCUSSION due on 09/11/2022 LDL CHOLESTEROL due on 12/02/2022 INFLUENZA(1) due on 05/12/2023 COVID-19 VACCINE(3 - Booster for Lilly series) due on 07/13/2023 ANNUAL PCP TEAM CHRONIC DISEASE VISIT due on 04/20/2024 DIABETES SCREEN due on 08/10/2024 DTAP,TDAP,TD(4 - Td or Tdap) due on 12/04/2029 BONE DENSITY Completed HEPATITIS C SCREENING Completed PNEUMOCOCCAL: 65+ Completed COLORECTAL CANCER SCREENING Discontinued ASSESSMENT/PLAN: 1. Blister - ICD9: 919.2, ICD10: T14.8XXA (primary diagnosis) Blister due to swelling and toes rubbing together. Keep blister covered with bandage and antibiotic ointment as ordered. Wear open toed or wide toed shoes. OTC NSAID for discomfort. Elevate extremity, rest foot, and put ice to area to decrease swelling. - BACITRACIN ZINC 500 UNIT/GRAM TOPICAL OINTMENT 2. Foot pain, left - ICD9: 729.5, ICD10: M79.672 Blister due to swelling and toes rubbing together. Keep blister covered with bandage and antibiotic ointment as ordered. Wear open toed or wide toed shoes. OTC NSAID for discomfort. Elevate extremity, rest foot, and put ice to area to decrease swelling. 3. Fall, initial encounter - ICD9: E888.9, ICD10: W19.XXXA Blister due to swelling and toes rubbing together. Keep blister covered with bandage and antibiotic ointment as ordered. Wear open toed or wide toed shoes. OTC NSAID for discomfort. Elevate extremity, rest foot, and put ice to area to decrease swelling. RTO as needed with PCP team. Prescription instructions reviewed with patient as applicable. Potential red flag symptoms discussed with the patient. Reviewed appropriate action plan to take if red flag symptoms occur. Patient agreeable to treatment plan. Sanna Garcia APRN.PHARMACOVIGILANCE SAFETY EXPERT [address] [place] [address] documented in this encounterShel[facility]09[facility]23 Miscellaneous Notes* Telephone Encounter - Loida Espinoza APRN.CNP - 05/12/2023 2:23 PM EDT Noted, thank you. Loida Espinoza APRN.CNP * Telephone Encounter - Rosalba Carlos RN - 05/12/2023 2:11 PM EDT Pt calling and reports continued left foot pain after a fall. Pt was evaluated in [facility] on05/05 and left foot xray was negative. Pt was advised as copied: No acute fractures noted on x-ray. Degenerative changes noted. Sprain of ligament tendon. Treat conservatively at this time follow-up with 5 to 7 days for repeat BP check and evaluation of foot. Patient was educated on supportive therapies. Patient was instructed to immediately proceed to emergency room for any new, worsening, or symptoms lasting longer than anticipated. Today pt reports 5/10 left foot pain at rest and 8/10 when walking. Pain radiates toward left ankle. Pt feels swelling may be a little worse than 8/25 above left great toe area. Bruising on 2nd toe. Also reports she noted 2 open areas, smaller than pencil erasers, in between her 2nd and 3rd toes, but difficult to see and are painful. Has tried soaking foot, applying iodine to sores. Wearing tennis type shoes. Reports she has to work and unable to elevate left foot when she works. Denies numbness or tingling. Taking tylenol but only helps pain minimally. Pt requesting evaluation of left foot further. Appt made with Loida Espinoza CNP as no other apptavailable this afternoon with pt's PCP team. Rosalba Carlos, RN documented in this encounterShel[facility]08-25-2023 History of Present illness Narrative* Jose Keller, RELIABILITY TECHNICIAN.PHARMACOVIGILANCE SAFETY EXPERT - 05/05/2023 3:34 PM EDT Images from the original note were not included. Subjective HPI Nontoxic-appearing female presents urgent care chief complaint left foot boot. Patient states fell about 12 days ago. Injured her left foot. States it felt like she twisted her toes when she fell in her yard. Denies any other injuries. No numbness no tingling. No decrease sensation. States foot pain is most pronounced over third and fourth digit. Does radiate back into midfoot. Additionally patient does have an abrasion on her right knee that happened 2 weeks ago. Presents today to ensure it isnot infected. No drainage. No increased redness from wound. Past medical history prescription medication use allergies reviewed. 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 07/07/2015 HLD (hyperlipidemia) HTN (hypertension) Iron deficiency anemia due to chronic blood loss 03/06/2015 Lens replaced by other means - Right Eye 12/26/2014 Memory loss Osteoarthrosis, unspecified whether generalized or localized, other specified sites Other vitreous opacities - Both Eyes 07/07/2014 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 S/P laser cataract surgery - Right Eye 12/26/2014 S/P LASIK surgery of both eyes - Both Eyes 07/07/2014 Tear film insufficiency, unspecified 12/11/2014 Unspecified constipation PAST SURGICAL HISTORY Procedure Laterality Date APPENDECTOMY 1994 ARTHRP INTERPOS INTERCARPAL/METACARPAL JOINTS Right 10/07/2016 Right thumb CMC arthroplasty ; THYROIDECTOMY TOTAL OR COMPLETE 02/08/2012 COLONOSCOPY FLX DX W/COLLJ SPEC WHEN PFRMD 08/03/2005 Colonoscopy COLONOSCOPY GEN ANES 08/26/2020 Repeat in 5-10 years COLONOSCOPY W/BIOPSY SINGLE/MULTIPLE 06/19/2015 normal colon CORRJ HALLUX VALGUS W/SESMDC W/2 OSTEOT 2004 RIGHT FOOT DILATION & CURETTAGE DX&/THER NONOBSTETRIC 1979 AFTER MISCARRAGE EGD 08/26/2020 EGD TRANSORAL BIOPSY SINGLE/MULTIPLE 06/19/2015 gastritis ESOPHAGOGASTRODUODENOSCOPY TRANSORAL DIAGNOSTIC 08/03/2005 EGD PAST SURGICAL HISTORY OF 1975 RECTAL WALL REPAIR PAST SURGICAL HISTORY OF 2002 Lasik Surgery on both eyes ([place]) PAST SURGICAL HISTORY OF 2010 broken neck PAST SURGICAL HISTORY OF 08/2015 Bare metal stent/ graft of heart x 1 PRQ CARDIAC STENT W/ANGIO 1 VSL 09/01/2015 Mid Lad TONSILLECTOMY PRIMARY/SECONDARY <AGE 11 TOTAL ABDOMINAL HYSTERECT W/WO RMVL TUBE OVARY 1994 Hysterectomy, TAHBSO XCAPSL CTRC RMVL INSJ IO LENS PROSTH W/O ECP 12/25/2014 Cataract Extraction with Femtosecond Laser (LenSx)-right eye ALLERGIES Contrast Dye [Iodine], Acetaminophen, Albuterol, Amoxil [Amoxicillin], Clindamycin, Codeine, Diatrizoate Meglumine, Dyazide [Triamterene- Hydrochlorothiazid], Erythromycin, Flexeril [Cyclobenzaprine], Oxycodone, Oxycontin [Oxycodone Hcl], Tessalon Perles [Benzonatate], Tetanus Vaccines And Toxoid, and Vicodin [Hydrocodone-Acetaminophen] MEDICATIONS traZODone (DESYREL) 50 mg tablet Take 50 mg by mouth daily at bedtime. 2 tabs levothyroxine (LEVOXYL) 100 mcg tablet Take 1 tablet by mouth once daily. Take on empty stomach. For Thyroid. lidocaine (SALONPAS) 4 % patch Apply 1 application as directed once daily. colestipol (COLESTID) 1 gram tablet Take 1 g by mouth twice daily. metoprolol tartrate, short acting, (LOPRESSOR) 50 mg tablet Take 50 mg by mouth once daily. lisinopril (ZESTRIL, PRINIVIL) 20 mg tablet Take 20 mg by mouth once daily. aspirin, enteric coated (ASPIRIN, ENTERIC COATED) 81 mg EC tablet Take 1 tablet by mouth once daily. COMPOUNDED PRESCRIPTION Home blood pressure monitor. DX: Essential HTN I10 CENTRUM SILVER ORAL TAB Take one(1) tablet daily. venlafaxine ER (EFFEXOR XR) 37.5 mg 24 hr capsule Take 1 capsule by mouth once daily. (Patient not taking: Reported on 03/29/2023) clindamycin (CLEOCIN) 300 mg capsule Take 1 capsule by mouth four times daily. mesalamine DR (DELZICOL) 400 mg capsule Take 1 capsule by mouth twice daily. (Patient not taking: Reported on 03/29/2023) FAMILY HISTORY Problem Relation Age of Onset Alzheimer's Disease Mother Heart Mother Heart Father 83 years old Hypertension Father Stroke Father Cataract Father other (parkinson's) Father Colon Cancer Maternal Aunt Diabetes Maternal Grandmother Diabetes Maternal Aunt other (ibs) Brother Heart Sister other (knee replacements) Sister other (cataract surgery) Sister Heart Sister Social History Tobacco Use Smoking status: Never Smokeless tobacco: Never Substance Use Topics Alcohol use: Yes Comment: special occasions Drug use: No Comment: coffee BP 160/82 Pulse 63 Temp 36.8 C (98.2 F) Resp 18 Wt 55.2 kg (121 lb 9.6 oz) SpO2 98% BMI21.89 kg/m Review of Systems Constitutional: Negative for chills, fever and malaise/fatigue. HENT: Negative for congestion, ear discharge, ear pain, sinus pain and sore throat. Eyes: Negative for blurred vision, pain, discharge and redness. Respiratory: Negative for cough, hemoptysis, sputum production, shortness of breath, wheezing and stridor. Cardiovascular: Negative for chest pain. Gastrointestinal: Negative for abdominal pain, diarrhea, nausea and vomiting. Musculoskeletal: Positive for falls and joint pain. Negative for back pain, myalgias and neck pain. Skin: Negative for itching and rash. Neurological: Negative for dizziness and headaches. Objective Physical Exam Constitutional: General: She is not in acute distress. Appearance: She is not diaphoretic. HENT: Head: Normocephalic. Eyes: Conjunctiva/sclera: Conjunctivae normal. Pupils: Pupils are equal, round, and reactive to light. Cardiovascular: Rate and Rhythm: Normal rate and regular rhythm. Heart sounds: Normal heart sounds. Pulmonary: Effort: Pulmonary effort is normal. No tachypnea, accessory muscle usage or respiratory distress. Breath sounds: Normal breath sounds. No stridor. No wheezing, rhonchi or rales. Musculoskeletal: Cervical back: Normal range of motion and neck supple. No edema, erythema, rigidity or tenderness. No pain with movement. Normal range of motion. Feet: Feet: Comments: Palpation the highlighted area. No breaks in skin. No edema erythema. No weaknesses. Neurovascular intact. Lymphadenopathy: Cervical: No cervical adenopathy. Skin: General: Skin is warm and dry. Comments: Well-healed healing abrasion highlighted area. No remote redness or drainage. Neurological: Mental Status: She is alert and oriented to person, place, and time. ASSESSMENT/PLAN: 1. Foot pain, left - ICD9: 729.5, ICD10: M79.672 (primary diagnosis) - XR FOOT GENERAL 3V AP/LAT/OBL LEFT 2. Abrasion of right knee, initial encounter - ICD9: 916.0, ICD10: S80.211A IMPRESSION: No acute fracture. Degenerative disease of the left foot. No acute fractures noted on x-ray. Degenerative changes noted. Sprain of ligament tendon. Treat conservatively at this time follow-up with 5 to 7 days for repeat BP check and evaluation of foot. Patient was educated on supportive therapies. Patient was instructed to immediately proceed to emergencyroom for any new, worsening, or symptoms lasting longer than anticipated. The patient's clinical presentation is otherwise unremarkable at this time. Based on exam and clinical finding, the patient is stable for discharge. Plan of care was discussed with patient. Patient verbalizes understanding and agrees to plan of care. This note was generated using [employer] software. It may contain errors in wording, punctuation, or spelling. Jose Keller APRN.PHARMACOVIGILANCE SAFETY EXPERT documented in this encounterSheltering [facility]08-16-2023 Miscellaneous Notes* Telephone Encounter - Kim Sena LPN - 04/26/2023 9:58 AM EDT Patient notified of results, verbalizes understanding of instructions. Kim Sena LPN * Telephone Encounter - Emelia Lynn APRN.CNP - 04/26/2023 8:33 AM EDT Can you please call the patient and let her know that I reviewed her x-ray results. Facial x-rays were normal. No fractures were noted. 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 This means there are calcium deposits in the knee joint that can cause pain. This is a type of arthritis. This is usually treated with anti-inflammatories. I would recommend that she continue supportive care at home, bruising and abrasions should heal over time due to the fall. Please let me know if she has any questions. Thank you. Emelia Lynn APRN.PHARMACOVIGILANCE SAFETY EXPERT documented in this encounterSheltering [facility] Hospital08-10-2023 NoteHNO ID: [id number] Author: Jermaine Jo, CT Service: Radiology Author Type: Technologist Type: Progress Notes Filed: 04/20/2023 3:00 PM Note Text: Radiology Service Progress Note PATIENT NAME: Bharti Akbar DATE OF SERVICE: April 20, 2023 TIME: 3:00 PM PATIENT IDENTITY VERIFICATION COMPLETED USING TWO (2) IDENTIFIERS: Name and Date of confirmed by patient verbally. FALL SCREENING: Has the patient had 2 falls in the last year or 1 fall with injury or currently using an Ambulatory Assistive Device (Walker, Cane, Wheelchair, Crutches, etc.)? No PATIENT GENDER DATA: Female. status: : No status: NO. PATIENT RELEVANT IMPLANT DATA REVIEWED: Not Applicable RADIOLOGY DEPARTMENT: CT; Exam(s) Completed: Brain PERIPHERAL IV DATA: Not applicable SIGNED BY: NIDA Aguilar April 20, 2023 3:00 [facility]08-10-2023 NoteHNO ID: [id number] Author: Mela Harley RT(R) Service: ? Author Type: Technologist Type: Progress Notes Filed: 04/20/2023 3:46 PM Note Text: Radiology Service Progress Note PATIENT NAME: Bharti Akbar DATE OF SERVICE: April 20, 2023 TIME: 3:45 PM PATIENT IDENTITY VERIFICATION COMPLETED USING TWO (2) IDENTIFIERS: Name and Date of confirmed by patient verbally. FALL SCREENING: Has the patient had 2 falls in the last year or 1 fall with injury or currently using an Ambulatory Assistive Device (Walker, Cane, Wheelchair, Crutches, etc.)? No PATIENT GENDER DATA: Female. status: : No status: NO. PATIENT RELEVANT IMPLANT DATA REVIEWED: Not Applicable RADIOLOGY DEPARTMENT: General X-ray: Exam(s) Completed: Lower Extremity X-Ray(s): Knee, AP / LAT Right Skull X-Ray PERIPHERAL IV DATA: Not applicable SIGNED BY: RT Claude(R) April 20, 2023 3:45 [facility]08-10-2023 History of Present illness Narrative* Jermaine Jo CT - 04/20/2023 3:00 PM EDT Radiology Service Progress Note PATIENT NAME: Bharti Akbar DATE OF SERVICE: April 20, 2023 TIME: 3:00 PM PATIENT IDENTITY VERIFICATION COMPLETED USING TWO (2) IDENTIFIERS: Name and Date of confirmedby patient verbally. FALL SCREENING: Has the patient had 2 falls in the last year or 1 fall with injury or currently using an Ambulatory Assistive Device (Walker, Cane, Wheelchair, Crutches, etc.)? No PATIENT GENDER DATA: Female. status: : No status: NO. PATIENT RELEVANT IMPLANT DATA REVIEWED: Not Applicable RADIOLOGY DEPARTMENT: CT; Exam(s) Completed: Brain PERIPHERAL IV DATA: Not applicable SIGNED BY: NIDA Aguilar April 20, 2023 3:00 PM documented in this encounterSheltering [facility]08-10-2023 History of Present illness Narrative* Mela Harley RT(R) - 04/20/2023 2:30 PM EDT Radiology Service Progress Note PATIENT NAME: Bhrati Akbar DATE OF SERVICE: April 20, 2023 TIME: 3:45 PM PATIENT IDENTITY VERIFICATION COMPLETED USING TWO (2) IDENTIFIERS: Name and Date of confirmedby patient verbally. FALL SCREENING: Has the patient had 2 falls in the last year or 1 fall with injury or currently using an Ambulatory Assistive Device (Walker, Cane, Wheelchair, Crutches, etc.)? No PATIENT GENDER DATA: Female. status: : No status: NO. PATIENT RELEVANT IMPLANT DATA REVIEWED: Not Applicable RADIOLOGY DEPARTMENT: General X-ray: Exam(s) Completed: Lower Extremity X- Ray(s): Knee, AP / LAT Right Skull X-Ray PERIPHERAL IV DATA: Not applicable SIGNED BY: RT Claude(Michelle) April 20, 2023 3:45 PM documented in this encounterSheltering [facility] Hospital08-10-2023 Instructions* Patient Instructions* Emelia Lynn APRN.PHARMACOVIGILANCE SAFETY EXPERT - 04/20/2023 12:48 PM EDT Images from the original note were not included. Get xray and CT scan completed. Continue supportive care at home. Reduce light and sounds, take a break from electronics/screens May use ice to face and knee for pain. Red flag symptoms, go to ER. May schedule with Neurology in the future to discuss memory concerns. Follow up pending test results. 04/20/2023 To Whom It May Concern, Bharti Akbar [facility]. A concussion is typically a short-lived functional brain injury and will require both cognitive (mental) as well as physicalrest in order to recover as quickly as possible. Please note that each concussion is different and symptoms and length of time to recovery are unique to each individual. The ideal treatment plan for concussion starts immediately and consists of identifying and limitingexposure to triggers that worsen their symptoms. These triggers can include activities such as working on or with technology, reading, writing or note taking, concentration and recall, environmental noise and light, occupied lunchrooms and meeting rooms, or even just walking from place to place. Patients will typically notice their symptoms worsening throughout the day as their brains become morefatigued. Pushing through their symptoms may prolong their recovery process. To best treat this patient, we ask that you implement the following temporary daily adjustments to the patient s work/school load to aid in the patient s recovery. Revisions may be made upon physician re-evaluation or follow up, and are dictated by their rate of recovery. Missed Time The concussed brain will fatigue more easily and is typically the freshest earlier in the morning after a good night s rest. We recommend that the concussed patient not attend work/school if they awake with symptoms, as this has been shown to delay recovery. As the day and the cognitive demands increase, the concussed individual will become more fatigued and have more difficulty completing tasks. Environmental and social stressors can contribute to theirsymptoms as well. Some patients may need to stay home at first to see how effective they work with and without symptoms. They may find that working at home in small increments with frequent rest breaks may make it more manageable than being at work/school. Once the patient can return to work/schoolit is recommended that the patient be permitted short breaks during activities/tasks in order to rest the brain and recover if symptoms come on during these activities. If the symptoms resolve with ashort break, the patient may return to the activity, if not they should consider going home to restfor longer when possible. Other instances a patient may note that the biggest symptom stressor is the environment from light and noise. Allowing the patient to bring sunglasses, brimmed hats and ear plugs to work/school as well as avoiding crowded environments can assist in decreasing these daily stressors. Workload Reduction Memory, attention span and processing speed are impaired during the recovery process. The patient may need more time, flexible due dates or decreased workload in order to complete assignments/tasks. More time can help as the patient may need to take frequent breaks in order to get through the day and their tasks. Notes and materials for daily meetings/classes should be forwarded to the patient inadvance of the next event to allow them to print these materials for review to decrease cognitive overstimulation during the event/meeting/class. Based on the patient s daily status of recovery it is the recommendation of the [facility] that testing be postponed until he/she is able to complete a full day of work/school or is provided with unlimited amounts of time to complete the test with frequent breaks incorporated and no more than one scheduled test every other day. Virtual/Electronic Events When possible, record online presentations and allow the patient to listen over viewing as necessary to minimize stress from screens. Allow the patient to complete virtual assignments/tasks at a later time in order to facilitate appropriate recovery. Notes for virtual events and event materials should be forwarded to the patient in advance of the next event to allow them to print these materials for review. Some concussed patients may find that listening is easier than reading or vice- versa. Multitasking,such as combining listening, reading, taking notes, and weeding out distractions in an environment can be very difficult, if not impossible, during the recovery phase. When possible consider virtual oral practical versus completing typed, written tests assignments. Sports/Physical Activity Gymnasium environments are often loud, very bright and full of other individuals moving about. Thisis not an ideal environment for a recovering patient and we recommend that the patient not participate in gym class or competitive sport activity until they have completed a return to activity progression under the supervision of a medical professional. [place] has laws requiring youth athletes to complete a progressive return to sports activity progression prior to returning to competition. Please refer to your state s department of health rules and laws prior to returning anyone under the age of18 to sports. Patients with concussion can have limited physical activity as their symptoms tolerate. These include low level cardiovascular activities like riding a stationary bike or directed walking on a flat level surface. Activities should be completed in a protected area away from moving objects. If the patient develops symptoms during the activity they should decrease their effort and intensity. If thisimproves symptoms they may continue at that level but if not improving they should discontinue and rest, reattempting the next day. We appreciate your assistance in the medical treatment plan to allow the patient to recover expeditiously and returning them back to their daily activities as quickly and safely as possible. Please do not hesitate to contact our office should you have any questions regarding the recovery plan. You may also visit [email or web address] for more information. Sincerely, Emelia Lynn APRN.PHARMACOVIGILANCE SAFETY EXPERT Frequently Asked Questions about Concussion What is a concussion? A concussion, or mild traumatic brain injury, is caused by a bump, jolt, or blow to the head that causes the brain to shift or twist rapidly inside the skull. A jolt to the body can also cause concussion if the impact causes the head to jerk forcefully backwards, forwards, rotate, or move to the side as in whiplash. A concussion is called mild because it is not usually life-threatening, and the symptoms are usually short-lived. However, the effects from a concussion can be serious and can last for days, weeks,or even longer. What are the common causes of concussion? The most common causes of concussions are falls, motor vehicle accidents, bicycling, and sport injuries. Any sport in which there is contact among the players, or which involves moving objects like apuck or a ball, can place the athlete at a higher risk for a concussion. Suffering a concussion increases the risk of suffering another during the first year following the injury. People with a history of previous concussion(s) are also at increased risk for prolonged symptoms after concussion. How is a concussion diagnosed? A medical professional should provide a thorough examination. This includes a history of the injury, a review of concussion symptoms, a comprehensive physical and neurological exam, balance testing and cognitive function testing. Most concussions do not require brain imaging with a CT or MRI. All [facility] have laws to protect youth/student athletes from returning to the sport before it is safe. A note from a licensed medical professional is required to certify the athlete s is recovered prior to athletic return. What are the common symptoms of concussion? Concussion symptoms usually appear immediately or just a few minutes after the head injury however,in some instances, symptoms may take several hours or even days to appear. The most common symptom of a concussion is a headache. Other common symptoms include dizziness, nausea, sensitivity to light and noise, sleep difficulties, fatigue, trouble with concentration, changes in behavior, irritability, sadness, nervousness and anxiety. For additional information or to make an appointment, go to [email or web address] or call [phone] ([phone]). What does concussion treatment/management involve? Most patients symptoms can be managed by observation and encouraging rest for the first few days. An appointment with a health care provider will individualize a gradual return to work/school and physical activity after initial rest. Medications for pain relief, unless prescribed, are not recommende d as they may hide symptoms are worsening each day. If symptoms are only worsening, seek medical evaluation immediately. Treatment of concussion is based on a plan called relative rest . The purpose is for the brain to be active, but not overactive and it should not become underactive either. There is a need to find balance in activities because the overactive brain can develop more symptoms and the underactive braincan become more sluggish. Both scenarios can make concussion recovery take longer. Four Principles of Relative Rest are as follows: Recognize when your symptoms worsen with activity. Temporarily remove yourself from those activities - take a break. Rest until the symptoms improve or go away - close your eyes and put head down. Return to those activities once you feel better. Can I exercise with a concussion? Yes, light cardiovascular exercise 2 days after concussion injury has been shown to improve a patient s recovery time and symptoms however, it is recommended that a patient refrain from the same level of physical activity as prior to the injury. Gym classes should not be attended until cleared by your medical team. Walking or light riding on a stationary bike for exercise is okay in order to keep the body moving increasing blood flow to the brain but you ll want to avoid anything that significantly increases heart rate. Exercise should not provoke symptoms. If symptoms worsen with light cardiovascular exercise, slow down the tempo of the exercise and see if symptoms improve. If it does, continue at that intensity. If symptoms continue despite slowing down, discontinue activity for the day. Patients who are student athletes should focus on becoming a student first, adding athletic activity as their recovery allows under the guidance of a licensed medical professional whenever possible. For additional information or to make an appointment, go to [email or web address] or call [phone] ([phone]). I can t seem to focus or concentrate now. Should I be going to school? It's helpful to identify and limit things that cause symptoms to return or increase. Most of the time, you can control the environment at home, where the lights can be turned down, the noise level controlled, and studies paced by taking frequent breaks and resting as needed. Patients can go back to work/school as soon as they feel they are ready. For many, this means when patients can handle 25-45 minutes of reading/studying at home without increasing symptoms but requiring breaks. When going back to work/school, start with the easiest subjects/activities and increase as tolerated. That doesn t necessarily mean that a patient go to work/school for a set amount of time. The patient should start off with some easier tasks/classes each day and moving towards the harder ones whenthey feel able. If symptoms start during work/class, the patient should take a small break by closing their eyes orputting their head down until symptoms start to go away. If symptoms don t improve or start to get worse, they can go to the nurse s office/quiet room to lie down, or even go home to rest. Note taking can be challenging with a concussion due to light sensitivity from screens, painful eyeand neck movements or even multi-tasking. To control symptoms, pre-printed notes in advance of a meeting or lesson are helpful. Focus on one task at a time. Utilize the sheet to add content from the discussion as needed. Just like getting into shape, mental stamina will improve as the patient listens to and manages symptoms. A patient shouldn t be afraid to rest and recover when they get home, they may be very tired and fatigued. Just like a phone they need to recharge and can nap but should do so briefly to not affect sleep. The power of diet and hydration: Though you may not be hungry or thirsty, make sure to get a balanced diet and hydration. Low blood sugar and dehydration mimic concussion symptoms. Making sure these are not a factor aids in faster recovery. What should I do if I have trouble falling asleep or sleeping through the night? Avoid screen time at least 1 hour prior to going to bed. This include phones, TVs, computers and other electronic devices. Blue light wavelengths affects the body s natural ability to produce melatonin, a hormone that helps regulate sleep. An over the counter supplement of melatonin is also available and can be used to assist in falling and staying asleep. Begin with 1-3mg if needed. If sleep does not improve, see your medical provideras soon as possible. For additional information or to make an appointment, go to [email or web address] or call [phone] ([phone]). 1 How to Manage Concussion Symptoms The following information is to help guide you through the different symptoms that you may experience during your recovery. Symptom management is designed to give you tips to assist you in decreasingsymptoms, as well as speeding up your recovery. LIMIT TRIGGERS CAUSING SYMPTOMS: TIPS FOR MANAGEMENT Any activity that produces or increases your symptoms is considered a trigger. It is important for you to know what aggravates your individual symptoms. Limiting triggers will help decrease symptoms each day This can allow for faster recovery and a return to activities sooner RELATIVE REST: We want the brain to remain active, but only as tolerated. This will require you to limit physical and mental activities that worsen your symptoms. When symptoms develop or worsen, stop that activityimmediately, rest until your symptoms improve or resolve, and then resume the activity as tolerated. Try shorter activity periods (start at 5 minutes & increase as tolerated) Limit electronic device use (cellphones, computers, tablet pcs, etc.) as these can aggravate symptoms Adapt your schedule to accommodate your symptoms each day APPROPRIATE SLEEP: Our brains recover during sleep. Sleep makes you feel more rested and focused. Your sleep pattern may be disrupted after a concussion, causing daytime tiredness. If sleep is difficult, inform your medical team. Go to bed and get up at the same time each day Take a short nap (30-60 minutes) if tired during the day Naps should not affect night time sleep Eliminate bedroom distractions: i.e. TV, cellphones, computers, tablet pcs, etc. HEADACHE: May vary in location and intensity Typically will worsen with mental/physical stress as the day progresses Can worsen with the position of your head and neck, especially with reading, working on a computer,texting or studying If your headache becomes more intense or worsens, consult your medical team Take medication sparingly as directed. Do not mask symptoms and push through tasks. DIZZINESS: Common after concussion and is described as: Lightheadedness Room is spinning Pressure or feeling of a full head Fogginess or can t think clearly Woozy Off balance It is important that you communicate any of these symptoms of dizziness to your medicalteam, even if the symptoms are temporary or come and go For more information or to make an appointment, go to [email or web address] or call [phone] ([phone]). 1 NECK PAIN: TIPS FOR MANAGEMENT Discomfort along your hairline or on the top of your shoulders is common with concussion Numbness and pain into your arms and hands is not common and should be reported can worsen with the position of your head and neck, especially with reading, working on a computer,texting or studying Physical therapy may be needed for resolution. It is important to let your medical team know if youdevelop neck pain after your concussion Use ice or cold pack at the base of the skull as needed for neck pain for about 15-20 minutes Try to use correct back and neck posture for relief LIGHT AND NOISE SENSITIVITY: Both are common after an injury Different kinds of light and noise can affect each person differently Limit exposure to these triggers by controlling the environment around you whenever possible Gradually reintroduce these stimuli, increasing exposure over time Turning indoor lights down and closing blinds may be necessary Sunglasses and hats can be used outside or with bright lights Limit electronic devices (cellphones, computers, TV, etc.) as these are known to aggravate symptoms Keep volume low on TVs or music Use foam earplugs to control noise in outdoor/public environments Report these to your medical team For more information or to make an appointment, go to [email or web address] or call [phone] ([phone]). documented in [facility] History of Present illness Narrative* Emelia Lynn APRN.CNP - 04/20/2023 12:40 PM EDT This is a 77 year old female who presents today with: Patient presents with: Acute Visit: fell on wall had bruising. HISTORY OF PRESENT ILLNESS: Bharti Akbar is a 77 year old female. Patient presents with: Acute Visit: fell on wall had bruising. Here in the office after a fall, refers she fell outside into a wall (concrete) yesterday, lost balance. Injury to eye and right knee, and ankle. Did not have LOC. Having sensitivity to light, nausea, and headache. Refers that she has a small abrasion to the right eyelid. Has had ongoing balance and memory concerns in the past ( see previous office note). Would like a consult with neurology for further evaluation. Has order for PT to work on balance, waiting for insurance approval before scheduling. 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 07/07/2015 HLD (hyperlipidemia) HTN (hypertension) Iron deficiency anemia due to chronic blood loss 03/06/2015 Lens replaced by other means - Right Eye 12/26/2014 Memory loss Osteoarthrosis, unspecified whether generalized or localized, other specified sites Other vitreous opacities - Both Eyes 07/07/2014 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 S/P laser cataract surgery - Right Eye 12/26/2014 S/P LASIK surgery of both eyes - Both Eyes 07/07/2014 Tear film insufficiency, unspecified 12/11/2014 Unspecified constipation PAST SURGICAL HISTORY Procedure Laterality Date APPENDECTOMY 1994 ARTHRP INTERPOS INTERCARPAL/METACARPAL JOINTS Right 10/07/2016 Right thumb CMC arthroplasty ; THYROIDECTOMY TOTAL OR COMPLETE 02/08/2012 COLONOSCOPY FLX DX W/COLLJ SPEC WHEN PFRMD 08/03/2005 Colonoscopy COLONOSCOPY GEN ANES 08/26/2020 Repeat in 5-10 years COLONOSCOPY W/BIOPSY SINGLE/MULTIPLE 06/19/2015 normal colon CORRJ HALLUX VALGUS W/SESMDC W/2 OSTEOT 2004 RIGHT FOOT DILATION & CURETTAGE DX&/THER NONOBSTETRIC 1979 AFTER MISCARRAGE EGD 08/26/2020 EGD TRANSORAL BIOPSY SINGLE/MULTIPLE 06/19/2015 gastritis ESOPHAGOGASTRODUODENOSCOPY TRANSORAL DIAGNOSTIC 08/03/2005 EGD PAST SURGICAL HISTORY OF 1975 RECTAL WALL REPAIR PAST SURGICAL HISTORY OF 2002 Lasik Surgery on both eyes ([place]) PAST SURGICAL HISTORY OF 2010 broken neck PAST SURGICAL HISTORY OF 08/2015 Bare metal stent/ graft of heart x 1 PRQ CARDIAC STENT W/ANGIO 1 VSL 09/01/2015 Mid Lad TONSILLECTOMY PRIMARY/SECONDARY <AGE 12 TOTAL ABDOMINAL HYSTERECT W/WO RMVL TUBE OVARY 1994 Hysterectomy, TAHBSO XCAPSL CTRC RMVL INSJ IO LENS PROSTH W/O ECP 12/25/2014 Cataract Extraction with Femtosecond Laser (LenSx)-right eye ALLERGIES Contrast Dye [Iodine], Acetaminophen, Albuterol, Amoxil [Amoxicillin], Clindamycin, Codeine, Diatrizoate Meglumine, Dyazide [Triamterene- Hydrochlorothiazid], Erythromycin, Flexeril [Cyclobenzaprine], Oxycodone, Oxycontin [Oxycodone Hcl], Tessalon Perles [Benzonatate], Tetanus Vaccines And Toxoid, and Vicodin [Hydrocodone-Acetaminophen] MEDICATIONS Current Outpatient Medications Medication Sig traZODone (DESYREL) 50 mg tablet Take 50 mg by mouth daily at bedtime. 2 tabs meloxicam (MOBIC) 15 mg tablet Take 1 tablet by mouth once daily. With food. venlafaxine ER (EFFEXOR XR) 37.5 mg 24 hr capsule Take 1 capsule by mouth once daily. (Patient not taking: Reported on 03/29/2023) clindamycin (CLEOCIN) 300 mg capsule Take 1 capsule by mouth four times daily. (Patient not taking:Reported on 03/29/2023) levothyroxine (LEVOXYL) 100 mcg tablet Take 1 tablet by mouth once daily. Take on empty stomach. For Thyroid. lidocaine (SALONPAS) 4 % patch Apply 1 application as directed once daily. colestipol (COLESTID) 1 gram tablet Take 1 g by mouth twice daily. mesalamine DR (DELZICOL) 400 mg capsule Take 1 capsule by mouth twice daily. (Patient not taking: Reported on 03/29/2023) metoprolol tartrate, short acting, (LOPRESSOR) 50 mg tablet Take 50 mg by mouth once daily. lisinopril (ZESTRIL, PRINIVIL) 20 mg tablet Take 20 mg by mouth once daily. aspirin, enteric coated (ASPIRIN, ENTERIC COATED) 81 mg EC tablet Take 1 tablet by mouth once daily. COMPOUNDED PRESCRIPTION Home blood pressure monitor. DX: Essential HTN I10 CENTRUM SILVER ORAL TAB Take one(1) tablet daily. No current facility-administered medications for this visit. FAMILY HISTORY Problem Relation Age of Onset Alzheimer's Disease Mother Heart Mother Heart Father 83 years old Hypertension Father Stroke Father Cataract Father other (parkinson's) Father Colon Cancer Maternal Aunt Diabetes Maternal Grandmother Diabetes Maternal Aunt other (ibs) Brother Heart Sister other (knee replacements) Sister other (cataract surgery) Sister Heart Sister Social History Tobacco Use Smoking status: Never Smokeless tobacco: Never Substance Use Topics Alcohol use: Yes Comment: special occasions Drug use: No Comment: coffee REVIEW OF SYSTEMS GENERAL: No weight loss, malaise or fevers/chills HEENT: Negative for frequent or significant headaches, No changes in hearing or vision. NECK: Negative for lumps, goiter, pain and significant neck swelling RESPIRATORY: Negative for cough, hemoptysis, wheezing, dyspnea or shortness of breath CARDIOVASCULAR: Negative for chest pain, leg swelling, orthopnea, or palpitations GI: + Nausea : No history of dysuria, frequency or incontinence MUSCULOSKELETAL: Right cheekbone, knee, and grande pain SKIN: Negative for lesions, rash, and itching ENDOCRINE: Negative for cold or heat intolerance, polyuria, polydipsia and goiter NEURO: + Headache, light sensitivity MOOD: Negative for depression, anxiety, or suicidal ideation. EXAM: BP 112/56 Pulse (!) 57 Resp 16 Wt 54.9 kg (121 lb) SpO2 96% BMI 21.78 kg/m PHYSICAL EXAM: General Appearance: Well appearing, alert, in no acute distress, well-hydrated, well nourished. Skin: Ecchymosis and mild swelling noted to the right cheekbone, small abrasion noted near the right top eyelid, covered with bandage at this time. Abrasion and ecchymosis noted to right knee and grande. Tender to touch. Head: Normocephalic, no masses, lesions, tenderness or abnormalities. Eyes: Anicteric sclera. Pupils are equally round and reactive to light. Extraocular movements are intact. Lungs: Lungs clear to auscultation. No wheezing, rhonchi, rales. Heart: RRR without murmur, gallop, or rubs. No ectopy. Extremities: No deformities, edema, skin discoloration, clubbing or cyanosis. Good capillary refill. Musculoskeletal: Right knee tender to touch, reduced ROM. Bandage noted on abrasion. Peripheral Pulses: Normal, Capillary refill <2secs, strong peripheral pulses, Pulses palpable. Neurologic: Gait normal. Sensation grossly intact. ASSESSMENT/PLAN: 1. Fall, initial encounter - ICD9: E888.9, ICD10: W19.XXXA (primary diagnosis) - Recommend evaluation at ER, patients denies. - Get xrays and CT scan completed. - May use ice as needed. 2. Concussion without loss of consciousness, initial encounter - ICD9: 850.0, ICD10: S06.0X0A - Instructions and education provided. 3. Injury of head, initial encounter - ICD9: 959.01, ICD10: S09.90XA - Worsening symptoms go to ER. - CT BRAIN WO IVCON 4. Acute pain of right knee - ICD9: 719.46, ICD10: M25.561 - XR KNEE GENERAL 4V AP BOTH/PA BOTH/LAT/MERC RIGHT 5. Contusion of cheek, initial encounter - ICD9: 920, ICD10: S00.83XA - XR FACIAL BONES 3V AP/LAT/DRISCOLL 6. Memory loss - ICD9: 780.93, ICD10: R41.3 - Due to ongoing memory concerns recommend consult with neurology. - Minicog 10/16. - CONSULT TO NEUROLOGY Follow up pending test results or sooner as needed. Discussed treatment plan and patient voices understanding. Patient's questions answered appropriately. Medications and potential side effects were discussed and patient voices understanding. Emelia Lynn APRN.PHARMACOVIGILANCE SAFETY EXPERT This note was partially generated using [employer] voice recognition system. Note was reviewed for accuracy. There may be minor misspellings or grammar miscues with [employer] voice recognition. documented in this encounterShel[facility]08-07-2023 Miscellaneous Notes* Telephone Encounter - Sanaz Smith Ma - 04/17/2023 5:01 PM EDT Order faxed within [employer] to [facility] at [phone]. Pt called and notified. Asked about Shingrix vaccine. Reviewed pt's insurance who has Medicare, notified her she can receive this at no cost to due to having Medicare Insurance, verbalized understanding. Sanaz Smith Ma * Telephone Encounter - Armando Orozco MD - 04/17/2023 4:02 PM EDT Mammogram ordered Armando Orozco MD * Telephone Encounter - Emelia Samuel - 04/17/2023 2:39 PM EDT Patient is requesting mammogram screening order to be faxed to [facility]. Please submit order, fax to [facility], then notify patient so she may follow up with scheduling. documented in this encounterSheltering [facility]08-04-2023 Miscellaneous Notes* Telephone Encounter - Kathi Velazco RN - 04/14/2023 8:07 AM EDT Lab sent to # [phone] to [facility] Outpatient Lab. * Telephone Encounter - Armando Orozco MD - 04/13/2023 5:47 PM EDT Order filed Armando Orozco MD * Telephone Encounter - Jose Perez MD - 04/12/2023 6:17 PM EDT Note emergent. Can wait for PCP * Telephone Encounter - Kathi Velazco RN - 04/12/2023 1:16 PM EDT Amie [facility] Outpatient Lab called and reports Pt needed a TSH re-drawn for provider it was 9.850 on 01/12/23. She reports they have just drawn labs on Pt. If provider can sign order for lab, please fax to [phone] and she can add to lab work she has drawn. documented in this encounterSheltering [facility] Hospital07-19-2023 Instructions* Patient Instructions* Emelia Lynn APRN.CNP - 03/29/2023 10:52 AM EDT Continue to take all medication as prescribed. Start Meloxicam 15 mg daily with food. (Help with pain) Keep scheduled appointment with cardiology Urine will be sent out for more testing Stay well hydrated Follow up in 1 month or sooner as needed. documented in this encounterSheltering [facility]07-19-2023 History of Present illness Narrative* Emelia Lynn APRN.CNP - 03/29/2023 10:20 AM EDT This is a 77 year old female who presents today with: Patient presents with: Follow Up: 1 month for HTN HISTORY OF PRESENT ILLNESS: Bharti Akbar is a 77 year old female. Patient presents with: Follow Up: 1 month for HTN 1 month follow up. Falls, balance: At last office visit with PCP stopped hydrochlorothiazide and potassium to see if symptoms improve. Has not completed physical therapy at this time. Like an order for aquatic therapy if possible. Still working at [employer] which can be very hard on her physically and mentally. Anxiety: Stopped taking Paxil, felt like medication was not efficient. Started on Effexor XR 37.5 mg, refers she never stared medication, was concerned about possible side effects. Work has caused increased stress. Has to work to keep health insurance. Refers she has been trying to do things on herown to help manage her anxiety and stress. HTN: Taking. Blood pressure at home 115/50's. Just stopped the HCTZ and potassium 2 days ago. Stillhave random episodes of dizziness and headaches. Discontinue Plavix from Cardiology. Will be having a follow up with [facility] in April. 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 Urine: Refers that urine has been darker than normal. No dysuria or hematuria. Would like urine checked today. 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 07/07/2015 HLD (hyperlipidemia) HTN (hypertension) Iron deficiency anemia due to chronic blood loss 03/06/2015 Lens replaced by other means - Right Eye 12/26/2014 Memory loss Osteoarthrosis, unspecified whether generalized or localized, other specified sites Other vitreous opacities - Both Eyes 07/07/2014 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 S/P laser cataract surgery - Right Eye 12/26/2014 S/P LASIK surgery of both eyes - Both Eyes 07/07/2014 Tear film insufficiency, unspecified 12/11/2014 Unspecified constipation PAST SURGICAL HISTORY Procedure Laterality Date APPENDECTOMY 1995 ARTHRP INTERPOS INTERCARPAL/METACARPAL JOINTS Right 10/07/2016 Right thumb CMC arthroplasty ; THYROIDECTOMY TOTAL OR COMPLETE 02/08/2012 COLONOSCOPY FLX DX W/COLLJ SPEC WHEN PFRMD 08/03/2005 Colonoscopy COLONOSCOPY GEN ANES 08/26/2020 Repeat in 5-10 years COLONOSCOPY W/BIOPSY SINGLE/MULTIPLE 06/19/2015 normal colon CORRJ HALLUX VALGUS W/SESMDC W/2 OSTEOT 2004 RIGHT FOOT DILATION & CURETTAGE DX&/THER NONOBSTETRIC 1979 AFTER MISCARRAGE EGD 08/26/2020 EGD TRANSORAL BIOPSY SINGLE/MULTIPLE 06/19/2015 gastritis ESOPHAGOGASTRODUODENOSCOPY TRANSORAL DIAGNOSTIC 08/03/2005 EGD PAST SURGICAL HISTORY OF 1975 RECTAL WALL REPAIR PAST SURGICAL HISTORY OF 2002 Lasik Surgery on both eyes ([place]) PAST SURGICAL HISTORY OF 2010 broken neck PAST SURGICAL HISTORY OF 08/2015 Bare metal stent/ graft of heart x 1 PRQ CARDIAC STENT W/ANGIO 1 VSL 09/01/2015 Mid Lad TONSILLECTOMY PRIMARY/SECONDARY <AGE 11 TOTAL ABDOMINAL HYSTERECT W/WO RMVL TUBE OVARY 1994 Hysterectomy, TAHBSO XCAPSL CTRC RMVL INSJ IO LENS PROSTH W/O ECP 12/25/2014 Cataract Extraction with Femtosecond Laser (LenSx)-right eye ALLERGIES Contrast Dye [Iodine], Acetaminophen, Albuterol, Amoxil [Amoxicillin], Codeine, Diatrizoate Meglumine, Dyazide [Triamterene-Hydrochlorothiazid], Erythromycin, Flexeril [Cyclobenzaprine], Oxycodone, Oxycontin [Oxycodone Hcl], Tessalon Perles [Benzonatate], Tetanus Vaccines And Toxoid, and Vicodin [Hydrocodone-Acetaminophen] MEDICATIONS Current Outpatient Medications Medication Sig venlafaxine ER (EFFEXOR XR) 37.5 mg 24 hr capsule Take 1 capsule by mouth once daily. clindamycin (CLEOCIN) 300 mg capsule Take 1 capsule by mouth four times daily. levothyroxine (LEVOXYL) 100 mcg tablet Take 1 tablet by mouth once daily. Take on empty stomach. For Thyroid. lidocaine (SALONPAS) 4 % patch Apply 1 application as directed once daily. clopidogrel (PLAVIX) 75 mg tablet Take 75 mg by mouth once daily. colestipol (COLESTID) 1 gram tablet Take 1 g by mouth twice daily. mesalamine DR (DELZICOL) 400 mg capsule Take 1 capsule by mouth twice daily. metoprolol tartrate, short acting, (LOPRESSOR) 50 mg tablet Take 50 mg by mouth once daily. lisinopril (ZESTRIL, PRINIVIL) 20 mg tablet Take 20 mg by mouth once daily. aspirin, enteric coated (ASPIRIN, ENTERIC COATED) 81 mg EC tablet Take 1 tablet by mouth once daily. COMPOUNDED PRESCRIPTION Home blood pressure monitor. DX: Essential HTN I10 CENTRUM SILVER ORAL TAB Take one(1) tablet daily. No current facility-administered medications for this visit. FAMILY HISTORY Problem Relation Age of Onset Alzheimer's Disease Mother Heart Mother Heart Father 83 years old Hypertension Father Stroke Father Cataract Father other (parkinson's) Father Colon Cancer Maternal Aunt Diabetes Maternal Grandmother Diabetes Maternal Aunt other (ibs) Brother Heart Sister other (knee replacements) Sister other (cataract surgery) Sister Heart Sister Social History Tobacco Use Smoking status: Never Smokeless tobacco: Never Substance Use Topics Alcohol use: Yes Comment: special occasions Drug use: No Comment: coffee REVIEW OF SYSTEMS GENERAL: No weight loss, malaise or fevers/chills HEENT: Negative for frequent or significant headaches, No changes in hearing or vision. NECK: Negative for lumps, goiter, pain and significant neck swelling RESPIRATORY: Negative for cough, hemoptysis, wheezing, dyspnea or shortness of breath CARDIOVASCULAR: Negative for chest pain, leg swelling, orthopnea, or palpitations GI: No nausea, vomiting, or diarrhea/constipation. No hematochezia/melena. No heartburn or reflux symptoms. : No history of dysuria, frequency or incontinence MUSCULOSKELETAL: Negative for joint pain or swelling. SKIN: Negative for lesions, rash, and itching ENDOCRINE: Negative for cold or heat intolerance, polyuria, polydipsia and goiter NEURO: No history of headaches, syncope, paralysis, seizures or tremors MOOD: Negative for depression, anxiety, or suicidal ideation. EXAM: BP 116/64 Pulse 71 Resp 16 Wt 55.3 kg (122 lb) SpO2 98% BMI 21.96 kg/m PHYSICAL EXAM: General Appearance: Well appearing, alert, in no acute distress, well-hydrated, well nourished. Skin: Skin color, texture, turgor normal, no suspicious rashes or lesions. Head: Normocephalic, no masses, lesions, tenderness or abnormalities. Eyes: Anicteric sclera. Extraocular movements are intact. Lungs: Lungs clear to auscultation. No wheezing, rhonchi, rales. Heart: RRR without murmur, gallop, or rubs. No ectopy. Extremities: No deformities, edema, skin discoloration, clubbing or cyanosis. Good capillary refill. Peripheral Pulses: Normal, Capillary refill <2secs, strong peripheral pulses, Pulses palpable. Neurologic: Gait normal. Reflexes normal and symmetric. Sensation grossly intact. ASSESSMENT/PLAN: 1. Essential hypertension - ICD9: 401.9, ICD10: I10 (primary diagnosis) - Controlled - Continue current medications - Recommend home blood pressure monitoring, to bring results to next visit - Encouraged sodium restriction, DASH or Mediterranean diet - Recommend regular aerobic exercise 2. Balance problem - ICD9: 781.99, ICD10: R26.89 - Recommend PT to help with balance and strength. - CONSULT TO PHYSICAL THERAPY - PT AQUATIC REHAB FOLLOW UP ORDER 3. Dizziness - ICD9: 780.4, ICD10: R42 - Keep up coming appt with Cardiology 4. Decreased muscle strength - ICD9: 728.87, ICD10: M62.81 - Same plan as #2. 5. Dark urine - ICD9: 791.9, ICD10: R82.998 - UA+ Leuks and small amount of blood. - Denied wanting treatment today will wait for culture results. - Increase water intake, instructed to contact the office if urinary symptoms get worse. - URINE CULTURE - URINALYSIS, WITH MICROSCOPIC 6. Generalized pain - ICD9: 780.96, ICD10: R52 - Start Melicam 15 mg daily. - MELOXICAM 15 MG TABLET Follow-up in 1 month or sooner as needed. Discussed treatment plan and patient voices understanding. Patient's questions answered appropriately. Medications and potential side effects were discussed and patient voices understanding. Emelia Lynn APRN.FREDY This note was partially generated using [employer] voice recognition system. Note was reviewed for accuracy. There may be minor misspellings or grammar miscues with [employer] voice recognition. documented in this encounterSheltering [facility]07-06-2023 Miscellaneous Notes* Telephone Encounter - Tahira Perla Ma - 03/16/2023 5:10 PM EDT Detailed message left on pt identified VM. Tahira Perla Ma * Telephone Encounter - Armando Orozco MD - 03/16/2023 5:08 PM EDT She may go ahead and stop the clindamycin Armando Orozco MD * Telephone Encounter - Leslie Landa RN - 03/16/2023 4:29 PM EDT Patient calls to let provider know that she started the clindamycin on 03/09/2023 for jaw inflammation/redness. Two days after starting clindamycin patient started having diarrhea. Patient has stomach discomfort daily and diarrhea 1 to 3 x daily. Patient skipped last nights 12 midnight dose of clindamycin and feels a little better today. Patient is wanting to stop clindamycin and asking if she should taper off of it or just stop the medication. Jaw is no longer red or swollen just tender. Patient requests call back at [phone] and reports it is ok to leave a voicemail. Please review and advise, Leslie Landa RN documented in this encounterSheltering Arms Hospital06-27-2023 Instructions* Patient Instructions* Tahira Perla Ma - 03/07/2023 3:42 PM EDT Start Effexor xr 37.5 mg every day Stop the HCTZ (hydrochlorothiazide) and Potassium. See if balance improves off the HCTZ. Continue to monitor your blood pressure at home. documented in this encounterSheltering [facility] Hospital06-27-2023 History of Present illness Narrative* Armando Orozco MD - 03/07/2023 3:00 PM EDT Chief Complaint Patient presents with: Medication Follow-up jaw pain Balance HPI Bharti Akbar is a 77 year old female who presents here today for medication follow up. Pt has not been seen by myself since December 2021. Has seen other providers in Family Medicine. Has an advanced directive. She is still working at [employer], is working 35 hours a week because she needs to have health insurance so her can stay on enbrel.. She was off for 6.5 months after being in the hospital. Has had several falls over the last year, feels her balance is not well, she is unsteady. Feels like when she is standing up she feels like she is going to fall forward. She states that she can be standing for a long time and feel like she is going to fall. She has to take her time with walking andworking, is extra careful when she goes up and down ladders at work. Has not done any PT for balance. Stated she did do PT recently for her shoulder and hip. No bowel, Gi, or urinary issues. She has been having some rectal burning when passing stool with some diarrhea more at the end of the BM about once a week. She has urinary incontinence, uses pads. HTN: Taking HCTZ 25 mg daily, Lisinopril 20 mg daily, Lopressor 50 mg once daily. Is also taking Potassium 10 mEq, 2 pills once daily. Checking BP at home with readings running 117/50 to 133/59. She admits to SOB, dizziness, and Chest pain which has been an issue for a long time but she feels it isgetting progressively worse. She states she has discussed this with her Seafood Service Team Member is with [facility] in [place]. Was told her carotid was over 50% blocked. Her stunt person referred her to dev manager, she has not see this provider yet. Thyroid: Taking Levoxyl 100 mcg daily. No missed dosage. Recently increased from 88 mcg due to elevated TSH. Depression/POLO: No longer taking Paxil 10 mg daily. She states this is not controlled and wants to try something else. She isn't sleeping well at night, has been taking Trazodone 50 mg 1-2 pills every night. Does not do any counseling. She states it is available at work but hasn't wanted to use that resource. She is reading a self help book on how to change. She feels trapped, stated she is 77 years old and needs the health care insurance to care for herself and her who has RA. She works because Medicare will not cover [employer] which is why she works for her health insurance. Lipid: & CAD: Taking Colestid 1 gram BID, ASA 81 mg daily, and Plavix 75 mg daily. Follows witha Seafood Service Team Member. C/o jaw pain on going for a long time but worsened in the last 3 months. She states left side lowerjaw is swollen, inflamed, was red. She has been brushing more with crest toothpaste and peroxide which has helped some. She has a dentis in [place] but hasn't seen them in some time. She uses Tylenol prn. Memory: has issues at times when she forgets what she is doing or supposed to be doing, loses her train of thought at times. Could be related to her anxiety/depression and not sleeping. Past medical history, appointments, medications, allergies reviewed. 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 07/07/2015 HLD (hyperlipidemia) HTN (hypertension) Iron deficiency anemia due to chronic blood loss 03/06/2015 Lens replaced by other means - Right Eye 12/26/2014 Memory loss Osteoarthrosis, unspecified whether generalized or localized, other specified sites Other vitreous opacities - Both Eyes 07/07/2014 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 S/P laser cataract surgery - Right Eye 12/26/2014 S/P LASIK surgery of both eyes - Both Eyes 07/07/2014 Tear film insufficiency, unspecified 12/11/2014 Unspecified constipation Previous Surgical History PAST SURGICAL HISTORY Procedure Laterality Date APPENDECTOMY 1994 ARTHRP INTERPOS INTERCARPAL/METACARPAL JOINTS Right 10/07/2016 Right thumb CMC arthroplasty ; THYROIDECTOMY TOTAL OR COMPLETE 02/08/2012 COLONOSCOPY FLX DX W/COLLJ SPEC WHEN PFRMD 08/03/2005 Colonoscopy COLONOSCOPY GEN ANES 08/26/2020 Repeat in 5-10 years COLONOSCOPY W/BIOPSY SINGLE/MULTIPLE 06/19/2015 normal colon CORRJ HALLUX VALGUS W/SESMDC W/2 OSTEOT 2004 RIGHT FOOT DILATION & CURETTAGE DX&/THER NONOBSTETRIC 1979 AFTER MISCARRAGE EGD 08/26/2020 EGD TRANSORAL BIOPSY SINGLE/MULTIPLE 06/19/2015 gastritis ESOPHAGOGASTRODUODENOSCOPY TRANSORAL DIAGNOSTIC 08/03/2005 EGD PAST SURGICAL HISTORY OF 1975 RECTAL WALL REPAIR PAST SURGICAL HISTORY OF 2002 Lasik Surgery on both eyes ([place]) PAST SURGICAL HISTORY OF 2010 broken neck PAST SURGICAL HISTORY OF 08/2015 Bare metal stent/ graft of heart x 1 PRQ CARDIAC STENT W/ANGIO 1 VSL 09/01/2015 Mid Lad TONSILLECTOMY PRIMARY/SECONDARY <AGE 11 TOTAL ABDOMINAL HYSTERECT W/WO RMVL TUBE OVARY 1994 Hysterectomy, TAHBSO XCAPSL CTRC RMVL INSJ IO LENS PROSTH W/O ECP 12/25/2014 Cataract Extraction with Femtosecond Laser (LenSx)-right eye Family History FAMILY HISTORY Problem Relation Age of Onset Alzheimer's Disease Mother Heart Mother Heart Father 83 years old Hypertension Father Stroke Father Cataract Father other (parkinson's) Father Colon Cancer Maternal Aunt Diabetes Maternal Grandmother Diabetes Maternal Aunt other (ibs) Brother Heart Sister other (knee replacements) Sister other (cataract surgery) Sister Heart Sister Patient Allergies ALLERGIES Allergen Reactions Contrast Dye [Iodin* Itching Pt felt like she was going to or have a seizure, per pt Acetaminophen Other: See Comments Very tense, jittery Albuterol Intolerance Amoxil [Amoxicillin] Other: See Comments Thick tongue Codeine Vomiting Diatrizoate Meglumi* Itching Dyazide [Triamteren* Intolerance incontinence urine Erythromycin GI Upset Flexeril [Cyclobenz* Mental Status Change Oxycodone Vomiting Oxycontin [Oxycodon* GI Upset, Vomiting Tessalon Perles [Be* GI Upset Tetanus Vaccines An* Vicodin [Hydrocodon* Intolerance Twitching, shaky Current Medications Current Outpatient Medications on File Prior to Visit Medication Sig levothyroxine (LEVOXYL) 100 mcg tablet Take 1 tablet by mouth once daily. Take on empty stomach. For Thyroid. lidocaine (SALONPAS) 4 % patch Apply 1 application as directed once daily. clopidogrel (PLAVIX) 75 mg tablet Take 75 mg by mouth once daily. colestipol (COLESTID) 1 gram tablet Take 1 g by mouth twice daily. PARoxetine (PAXIL) 10 mg tablet Take 1 tablet by mouth once daily. Olopatadine (PATADAY ONCE DAILY RELIEF) 0.2 % drop Use 1 Drop in both eyes once daily. mesalamine DR (DELZICOL) 400 mg capsule Take 1 capsule by mouth twice daily. metoprolol tartrate, short acting, (LOPRESSOR) 50 mg tablet Take 50 mg by mouth once daily. potassium chloride SR (MICRO-K) 10 mEq CR capsule Take 20 mEq by mouth once daily. lisinopril (ZESTRIL, PRINIVIL) 20 mg tablet Take 20 mg by mouth once daily. hydroCHLOROthiazide (HYDRODIURIL, ESIDRIX) 25 mg tablet Take 1 tablet by mouth once daily. aspirin, enteric coated (ASPIRIN, ENTERIC COATED) 81 mg EC tablet Take 1 tablet by mouth once daily. COMPOUNDED PRESCRIPTION Home blood pressure monitor. DX: Essential HTN I10 CENTRUM SILVER ORAL TAB Take one(1) tablet daily. No current facility-administered medications on file prior to visit. Social History Social History Tobacco Use Smoking status: Never Smokeless tobacco: Never Substance Use Topics Alcohol use: Yes Comment: special occasions Drug use: No Comment: coffee EXAM: BP 120/72 Pulse 68 Resp 16 Wt 55.2 kg (121 lb 11.2 oz) BMI 21.90 kg/m General Appearance: Well appearing, alert, in no acute distress, well-hydrated, well nourished.. Oropharynx: Positive findings: pain on palpation to left lower jaw, swelling of the jaw. Neck: Supple, no adenopathy; thyroid symmetric, normal size. Lungs: Lungs clear to auscultation. No wheezing, rhonchi, rales.. Heart: RRR without murmur, gallop, or rubs. No ectopy. Health Maintenance List SHINGRIX VACCINE(2 of 3) due on 01/04/2013 ADVANCE DIRECTIVE DISCUSSION due on 09/11/2022 LDL CHOLESTEROL due on 12/02/2022 COVID-19 VACCINE(3 - Booster for Lilly series) due on 07/13/2023 INFLUENZA(Season Ended) due on 05/12/2023 ANNUAL PCP TEAM CHRONIC DISEASE VISIT due on 01/13/2024 BP CONTROLLED (<130/80) due on 01/13/2024 DIABETES SCREEN due on 08/10/2024 DTAP,TDAP,TD(4 - Td or Tdap) due on 12/04/2029 BONE DENSITY Completed HEPATITIS C SCREENING Completed PNEUMOCOCCAL: 65+ Completed Data reviewed None ASSESSMENT/PLAN: 1. 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- ICD9: 414.01, ICD10: I25.10 (primary diagnosis) Continue current medications. Continue with Cardio 2. Balance problem - ICD9: 781.99, ICD10: R26.89 Stop HCTZ and Potassium to see if balance issues improve 3. Essential hypertension - ICD9: 401.9, ICD10: I10 - Controlled - Continue current medications - Stop hydrochlorothiazide - Stop Potassium since no longer on HCTZ - Recommend home blood pressure monitoring, to bring results to next visit - Encouraged sodium restriction, DASH or Mediterranean diet - Recommend regular aerobic exercise 4. Hyperlipidemia, unspecified hyperlipidemia type - ICD9: 272.4, ICD10: E78.5 - Control undetermined, due for labs - Continue current medications - Counseled on healthy diet and regular exercise - Discussed need for and benefit of weight loss. BMI 21.90 kg/(m^2) 5. Postsurgical hypothyroidism - ICD9: 244.0, ICD10: E89.0 - Instructed patient on importance of taking on an empty stomach either first thing in the morning or at bedtime. Continue current medications. 6. Anxiety with depression - ICD9: 300.4, ICD10: F41.8 Start Effexor xr 37.5 mg daily 7. Trouble in sleeping - ICD9: 780.50, ICD10: G47.9 Continue with Trazodone Start Effexor xr 37.5 mg daily 8. Pain in lower jaw - ICD9: 784.92, ICD10: R68.84 Start Clindamycin 300 mg 1 pill QID 9. Risk for falls - ICD9: V15.88, ICD10: Z91.81 Use caution 10. Memory loss - ICD9: 780.93, ICD10: R41.3 See if this improves with the effexor and control of the anxiety and depression Follow up in 1 month. I agree with the Chief Complaint, ROS, and Past Histories independently gathered by the clinical instructional support technician and the remaining scribed note accurately describes my personal service to the patient. Medical Decision Making: Problems: Moderate: 2+ stable chronic illnesses and 1+ chronic illnesses with change Risk: Moderate: Drug management Medical Decision Making Level: 4 - Moderate Armando Orozco MD The documentation for this note was completed by Tahira Perla Ma acting as scribe for Armando Orozco MD. March 07, 2023 3:05 PM. Tahira Perla Ma documented in this encounterSheltering Arms Hospital06-27-2023 History of Past illness Narrative* Problem Noted Date Diagnosed Date Resolved Date Segmental colitis associated with diverticulosis (HCC) 03/07/2023 11/20/2023 Angina pectoris 03/07/2023 11/20/2023 Heberden's nodes 07/07/2015 09/15/2016 Iron deficiency anemia due t o chronic blood loss 03/06/2015 09/15/2016 De Levi's tenosynovitis, right 03/26/2014 01/02/2017 Hypertension 03/23/2011 07/07/2015 Overview: Lipids through work 09/2010 TC 215, HDL 75, LDL 118, TG110, Gluc 89 Last Assessment & Plan: HTN: Ms. Akbar indicates that she is feeling well and denies any symptoms referable to elevated blood pressure. Specifically denies chest pain, palpitations, dyspnea and peripheral edema. Patient denies any side effects of her medication(s) and is compliant with their regimen. She does check BP's away from this office with average BP's in the 135/65 range. Bharti gets minimal exercise. She watches her diet for sodium, low fat and low cholesterol most of the time. 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 Special screening for malign ant neoplasms, colon 07/25/2005 07/06/2012 Unspecified constipation Diarrhea 03/23/2011 documented as of this encounter (statuses as of 11/20/2023) [facility] History of Past illness Narrative* Problem Noted Date Diagnosed Date Resolved Date Segmental colitis associated with diverticulosis (HCC) 03/07/2023 11/20/2023 Angina pectoris 03/07/2023 11/20/2023 Heberden's nodes 07/07/2015 09/15/2016 Iron deficiency anemia due t o chronic blood loss 03/06/2015 09/15/2016 De Quer[place]'s tenosynovitis, right 03/26/2014 01/02/2017 Hypertension 03/23/2011 07/07/2015 Overview: Lipids through work 09/2010 TC 215, HDL 75, LDL 118, TG110, Gluc 89 Last Assessment & Plan: HTN: Ms. Akbar indicates that she is feeling well and denies any symptoms referable to elevated blood pressure. Specifically denies chest pain, palpitations, dyspnea and peripheral edema. Patient denies any side effects of her medication(s) and is compliant with their regimen. She does check BP's away from this office with average BP's in the 135/65 range. Bharti gets minimal exercise. She watches her diet for sodium, low fat and low cholesterol most of the time. 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 Special screening for malign ant neoplasms, colon 07/25/2005 07/06/2012 Unspecified constipation Diarrhea 03/23/2011 documented as of this encounter (statuses as of 11/28/2023) [facility] History of Past illness Narrative* Problem Noted Date Diagnosed Date Resolved Date Segmental colitis associated with diverticulosis (HCC) 03/07/2023 11/20/2023 Angina pectoris 03/07/2023 11/20/2023 Heberden's nodes 07/07/2015 09/15/2016 Iron deficiency anemia due t o chronic blood loss 03/06/2015 09/15/2016 De Quervain's tenosynovitis, right 03/26/2014 01/02/2017 Hypertension 03/23/2011 07/07/2015 Overview: Lipids through work 09/2010 TC 215, HDL 75, LDL 118, TG110, Gluc 89 Last Assessment & Plan: HTN: Ms. Akbar indicates that she is feeling well and denies any symptoms referable to elevated blood pressure. Specifically denies chest pain, palpitations, dyspnea and peripheral edema. Patient denies any side effects of her medication(s) and is compliant with their regimen. She does check BP's away from this office with average BP's in the 135/65 range. Bharti gets minimal exercise. She watches her diet for sodium, low fat and low cholesterol most of the time. 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 Special screening for malign ant neoplasms, colon 07/25/2005 07/06/2012 Unspecified constipation Diarrhea 03/23/2011 documented as of this encounter (statuses as of 12/20/2023) [facility] History of Past illness Narrative* Problem Noted Date Diagnosed Date Resolved Date Segmental colitis associated with diverticulosis (HCC) 03/07/2023 11/20/2023 Angina pectoris 03/07/2023 11/20/2023 Heberden's nodes 07/07/2015 09/15/2016 Iron deficiency anemia due t o chronic blood loss 03/06/2015 09/15/2016 De Quervain's tenosynovitis, right 03/26/2014 01/02/2017 Hypertension 03/23/2011 07/07/2015 Overview: Lipids through work 09/2010 TC 215, HDL 75, LDL 118, TG110, Gluc 89 Last Assessment & Plan: HTN: Ms. Akbar indicates that she is feeling well and denies any symptoms referable to elevated blood pressure. Specifically denies chest pain, palpitations, dyspnea and peripheral edema. Patient denies any side effects of her medication(s) and is compliant with their regimen. She does check BP's away from this office with average BP's in the 135/65 range. Bharti gets minimal exercise. She watches her diet for sodium, low fat and low cholesterol most of the time. 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 Special screening for malign ant neoplasms, colon 07/25/2005 07/06/2012 Unspecified constipation Diarrhea 03/23/2011 documented as of this encounter (statuses as of 12/22/2023) [facility] History of Past illness Narrative* Problem Noted Date Diagnosed Date Resolved Date Segmental colitis associated with diverticulosis (HCC) 03/07/2023 11/20/2023 Angina pectoris 03/07/2023 11/20/2023 Heberden's nodes 07/07/2015 09/15/2016 Iron deficiency anemia due t o chronic blood loss 03/06/2015 09/15/2016 De Quervain's tenosynovitis, right 03/26/2014 01/02/2017 Hypertension 03/23/2011 07/07/2015 Overview: Lipids through work 09/2010 TC 215, HDL 75, LDL 118, TG110, Gluc 89 Last Assessment & Plan: HTN: Ms. Akbar indicates that she is feeling well and denies any symptoms referable to elevated blood pressure. Specifically denies chest pain, palpitations, dyspnea and peripheral edema. Patient denies any side effects of her medication(s) and is compliant with their regimen. She does check BP's away from this office with average BP's in the 135/65 range. Bharti gets minimal exercise. She watches her diet for sodium, low fat and low cholesterol most of the time. 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 Special screening for malign ant neoplasms, colon 07/25/2005 07/06/2012 Unspecified constipation Diarrhea 03/23/2011 documented as of this encounter (statuses as of 12/28/2023) [facility] History of Past illness Narrative* Problem Noted Date Diagnosed Date Resolved Date Segmental colitis associated with diverticulosis (HCC) 03/07/2023 11/20/2023 Angina pectoris 03/07/2023 11/20/2023 Heberden's nodes 07/07/2015 09/15/2016 Iron deficiency anemia due t o chronic blood loss 03/06/2015 09/15/2016 De Quervain's tenosynovitis, right 03/26/2014 01/02/2017 Hypertension 03/23/2011 07/07/2015 Overview: Lipids through work 09/2010 TC 215, HDL 75, LDL 118, TG110, Gluc 89 Last Assessment & Plan: HTN: Ms. Akbar indicates that she is feeling well and denies any symptoms referable to elevated blood pressure. Specifically denies chest pain, palpitations, dyspnea and peripheral edema. Patient denies any side effects of her medication(s) and is compliant with their regimen. She does check BP's away from this office with average BP's in the 135/65 range. Bharti gets minimal exercise. She watches her diet for sodium, low fat and low cholesterol most of the time. 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 Aware rx sent to pharmacy. * Telephone Encounter - Zina Lin Cma - 01/13/2023 10:21 AM EDT Left message for patient to return call to office Zina Lin Cma * Telephone Encounter - Sonia Damon APRN.CNP - 01/13/2023 10:16 AM EDT Please let patient know her TSH is elevated. I have sent in a new prescription for a higher dose oflevothyroxine. documented in this encounterS[facility] Miscellaneous Notes* Telephone Encounter - Kushal Weldon APRN.CNP - 01/13/2023 9:59 AM EDT The following approved medication requests have been transmitted electronically. Requested Prescriptions Pending Prescriptions Disp Refills levothyroxine (SYNTHROID) 88 mcg tablet [Pharmacy Med Name: Levothyroxine Sodium 88 MCG Oral Tablet] 30 tablet 0 Sig: TAKE 1 TABLET BY MOUTH ONCE DAILY ON AN EMPTY STOMACH FOR THYROID Kushal Weldon APRN.CNP * Telephone Encounter - Kika Costa LPN - 01/13/2023 8:02 AM EDT Patient has been identified by name and date of : Yes, Provider Dr. Orozco Date 01/13/23 Time 8:43 am Pharmacy phones for refill(s): Requested Prescriptions Pending Prescriptions Disp Refills levothyroxine (SYNTHROID) 88 mcg tablet [Pharmacy Med Name: Levothyroxine Sodium 88 MCG Oral Tablet] 30 tablet 0 Sig: TAKE 1 TABLET BY MOUTH ONCE DAILY ON AN EMPTY STOMACH FOR THYROID Date of last office visit in [facility] : 01/12/23 Last 2 Encounter Wt Readings: Date: Wt: 01/12/2023 55.3 kg (122 lb) 07/13/2022 54 kg (119 lb) Previous labs/tests for medication: Thyroid: TSH Date Value 01/12/2023 9.850 mIU/L 11/01/2021 1.000 uU/mL Thank you. Kika Costa LPN documented in [facility] Miscellaneous Notes* Telephone Encounter - Kika Costa LPN - 01/13/2023 8:48 AM EDT opened in error documented in this encounterC[place] [id number] Instructions* Patient Instructions* Sonia Damon APRN.CNP - 01/12/2023 8:07 AM EDT Complete labs Start lidocaine patches Follow up with [facility] documented in this encounterS[facility] History of Present illness Narrative* Sonia Damon APRN.CNP - 01/12/2023 7:50 AM EDT Chief Complaint Patient presents with: Back Pain HPI Bharti Akbar is a 77 year old female who presents here today for Above Complaints.. Patient presents for right lower back pain. Patient reports helping her neighbor john on 01/07 at which time she wrenched her back. Patient reports pain extends to right groin and is worse with standing or movement. Patient reports use of OTC ibuprofen with no improvement of symptoms. Denies neurological changes. Patient reports that she is currently under the care of [facility] who are currently pursuing PT. Patient reports they wanted an MRI but insurance is requiring PT first. Past medical history, appointments, medications, allergies reviewed. 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 07/07/2015 HLD (hyperlipidemia) HTN (hypertension) Iron deficiency anemia due to chronic blood loss 03/06/2015 Lens replaced by other means - Right Eye 12/26/2014 Memory loss Osteoarthrosis, unspecified whether generalized or localized, other specified sites Other vitreous opacities - Both Eyes 07/07/2014 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 S/P laser cataract surgery - Right Eye 12/26/2014 S/P LASIK surgery of both eyes - Both Eyes 07/07/2014 Tear film insufficiency, unspecified 12/11/2014 Unspecified constipation Previous Surgical History PAST SURGICAL HISTORY Procedure Laterality Date APPENDECTOMY 1994 ARTHRP INTERPOS INTERCARPAL/METACARPAL JOINTS Right 10/07/2016 Right thumb CMC arthroplasty ; THYROIDECTOMY TOTAL OR COMPLETE 02/08/2012 COLONOSCOPY FLX DX W/COLLJ SPEC WHEN PFRMD 08/03/2005 Colonoscopy COLONOSCOPY GEN ANES 08/26/2020 Repeat in 5-10 years COLONOSCOPY W/BIOPSY SINGLE/MULTIPLE 06/19/2015 normal colon CORRJ HALLUX VALGUS W/SESMDC W/2 OSTEOT 2004 RIGHT FOOT DILATION & CURETTAGE DX&/THER NONOBSTETRIC 1979 AFTER MISCARRAGE EGD 08/26/2020 EGD TRANSORAL BIOPSY SINGLE/MULTIPLE 06/19/2015 gastritis ESOPHAGOGASTRODUODENOSCOPY TRANSORAL DIAGNOSTIC 08/03/2005 EGD PAST SURGICAL HISTORY OF 1975 RECTAL WALL REPAIR PAST SURGICAL HISTORY OF 2002 Lasik Surgery on both eyes ([place]) PAST SURGICAL HISTORY OF 2010 broken neck PAST SURGICAL HISTORY OF 08/2015 Bare metal stent/ graft of heart x 1 PRQ CARDIAC STENT W/ANGIO 1 VSL 09/01/2015 Mid Lad TONSILLECTOMY PRIMARY/SECONDARY <AGE 11 TOTAL ABDOMINAL HYSTERECT W/WO RMVL TUBE OVARY 1994 Hysterectomy, TAHBSO XCAPSL CTRC RMVL INSJ IO LENS PROSTH W/O ECP 12/25/2014 Cataract Extraction with Femtosecond Laser (LenSx)-right eye Family History FAMILY HISTORY Problem Relation Age of Onset Alzheimer's Disease Mother Heart Mother Heart Father 83 years old Hypertension Father Stroke Father Cataract Father other (parkinson's) Father Colon Cancer Maternal Aunt Diabetes Maternal Grandmother Diabetes Maternal Aunt other (ibs) Brother Heart Sister other (knee replacements) Sister other (cataract surgery) Sister Heart Sister Patient Allergies ALLERGIES Allergen Reactions Contrast Dye [Iodin* Itching Pt felt like she was going to or have a seizure, per pt Acetaminophen Other: See Comments Very tense, jittery Albuterol Intolerance Amoxil [Amoxicillin] Other: See Comments Thick tongue Codeine Vomiting Diatrizoate Meglumi* Itching Dyazide [Triamteren* Intolerance incontinence urine Erythromycin GI Upset Flexeril [Cyclobenz* Mental Status Change Oxycodone Vomiting Oxycontin [Oxycodon* GI Upset, Vomiting Tessalon Perles [Be* GI Upset Tetanus Vaccines An* Vicodin [Hydrocodon* Intolerance Twitching, shaky Current Medications Current Outpatient Medications on File Prior to Visit Medication Sig levothyroxine (SYNTHROID) 88 mcg tablet Take 1 tablet by mouth once daily. Take on empty stomach. For Thyroid clopidogrel (PLAVIX) 75 mg tablet Take 75 mg by mouth once daily. colestipol (COLESTID) 1 gram tablet Take 1 g by mouth twice daily. PARoxetine (PAXIL) 10 mg tablet Take 1 tablet by mouth once daily. Olopatadine (PATADAY ONCE DAILY RELIEF) 0.2 % drop Use 1 Drop in both eyes once daily. diclofenac (VOLTAREN ARTHRITIS PAIN) 1 % topical gel Apply 2 g to affected area four times daily. mesalamine DR (DELZICOL) 400 mg capsule Take 1 capsule by mouth twice daily. metoprolol tartrate, short acting, (LOPRESSOR) 50 mg tablet Take 50 mg by mouth once daily. potassium chloride SR (MICRO-K) 10 mEq CR capsule Take 20 mEq by mouth once daily. lisinopril (ZESTRIL, PRINIVIL) 20 mg tablet Take 20 mg by mouth once daily. hydroCHLOROthiazide (HYDRODIURIL, ESIDRIX) 25 mg tablet Take 1 tablet by mouth once daily. aspirin, enteric coated (ASPIRIN, ENTERIC COATED) 81 mg EC tablet Take 1 tablet by mouth once daily. COMPOUNDED PRESCRIPTION Home blood pressure monitor. DX: Essential HTN I10 CENTRUM SILVER ORAL TAB Take one(1) tablet daily. No current facility-administered medications on file prior to visit. Social History Social History Tobacco Use Smoking status: Never Smokeless tobacco: Never Substance Use Topics Alcohol use: Yes Comment: special occasions Drug use: No Comment: coffee Review of Symptoms REVIEW OF SYSTEMS SEE HPI EXAM: BP 116/62 Pulse (!) 58 Resp 14 Wt 55.3 kg (122 lb) BMI 21.96 kg/m General Appearance: Well appearing, alert, in no acute distress, well-hydrated, well nourished.. Extremities: No deformities, edema, skin discoloration, clubbing or cyanosis. Good capillary refill. . Peripheral Pulses: Normal. Neurologic: Gait normal. Reflexes normal and symmetric. Sensation grossly intact.. Health Maintenance List SHINGRIX VACCINE(2 of 3) due on 01/04/2013 ADVANCE DIRECTIVE DISCUSSION due on 09/11/2022 LDL CHOLESTEROL due on 12/02/2022 COVID-19 VACCINE(3 - Booster for Lilly series) due on 07/13/2023 INFLUENZA(Season Ended) due on 05/12/2023 ANNUAL PCP TEAM CHRONIC DISEASE VISIT due on 07/13/2023 BP CONTROLLED (<130/80) due on 07/13/2023 DIABETES SCREEN due on 08/10/2024 DTAP,TDAP,TD(4 - Td or Tdap) due on 12/04/2029 BONE DENSITY Completed HEPATITIS C SCREENING Completed PNEUMOCOCCAL: 65+ Completed ASSESSMENT/PLAN: 1. Chronic right-sided low back pain, unspecified whether sciatica present - ICD9: 724.2, 338.29, ICD10: M54.50, G89.29 (primary diagnosis) - LIDOCAINE 4 % TOPICAL PATCH - KETOROLAC 60 MG/2 ML INTRAMUSCULAR SOLUTION - TRIAMCINOLONE ACETONIDE 40 MG/ML SUSPENSION FOR INJECTION -Patient instructed no ibuprofen for next 24 hours -Continue tylenol 2. Hypothyroidism, acquired - ICD9: 244.9, ICD10: E03.9 - Instructed patient on importance of taking on an empty stomach either first thing in the morning or at bedtime. - check TSH and T4/FTI today Stable - TSH BLD - T4 FREE/FREE THYROX Sonia Damon APRN.FREDY documented in this encounterShel[facility] Miscellaneous Notes* Telephone Encounter - Rosalba Carlos RN - 01/11/2023 1:39 PM EDT Triage Protocol Recommends: See provider within 24 hours. To ER for severe sx's. No appts available with pt's PCP Team. Appt made with Sonia Damon CNP for 01/12/23-morning. Please call patient if other provider has other advise. Thank you. Reason for Disposition [1] High-risk adult (e.g., age > 60 years, osteoporosis, chronic steroid use) AND [2] still hurts Answer Assessment - Initial Assessment Questions -Patient reports on 01/07 she was helping an elderly women with putting mulch in her car and wrenched her own back. -Pain is in her right lower back, rates it 6/10 now -pain goes into her right groin area -no change to bladder or bowel habits -little discomfort when sitting but hurts worse when standing -pain varies in intensity and frequency-hurts worse at night -taking Ibuprofen with little effect -denies numbness or tingling -denies abdominal pain -no blood in urine -walking okay-does not use any devices -on Plavix and baby Asprin 1. MECHANISM: as above 2. ONSET: 01/07 3. LOCATION:lower right back 4. SEVERITY: moderate 5. PAIN: 02/18 6. CORD SYMPTOMS: none 7. SIZE: no open areas 8. TETANUS: see record 9. OTHER SYMPTOMS: as above 10. : n/a Protocols used: Back [id number] documented in this encounterShel[facility]01-31-[facility]23 Miscellaneous Notes* Telephone Encounter - Tahira Perla Ma - 2022 4:47 PM EST Pt notified of results via [place]. Tahira Perla Ma * Telephone Encounter - Tahira Perla Ma - 10/10/2022 2:28 PM EST Message left for pt to call back for results. Tahira Perla MA * Telephone Encounter - Sanaz Smith Ma - 10/07/2022 4:49 PM EST Called and left message on patients voicemail to return call to the office and ask to speak with a triage nurse. Sanaz Smith Ma * Telephone Encounter - Armando Orozco MD - 10/07/2022 4:30 PM EST Her thyroid labs have improved, but have been off for the last few months, which may cause the hairloss, and may take more time to correct and stop. I would recommend giving it another couple of months on her current dose. She may also add OTC Biotin to see if that will help. Armando Oorzco MD * Telephone Encounter - Grace Hughes - 10/07/2022 3:26 PM EST Bharti Akbar is calling Armando Orozco MD today. Patient hair is still falling out and her nails are brittle, breaking. She said her thyroid lab work came back okay. What else could be causing this? Please advise and return her call [phone] documented in this encounterShel[facility]01-27-2023 Miscellaneous Notes* Telephone Encounter - Kushal Weldon APRN.CNP - 10/07/2022 3:43 PM EST The following approved medication requests have been transmitted electronically. Requested Prescriptions Pending Prescriptions Disp Refills levothyroxine (SYNTHROID) 88 mcg tablet 30 tablet 2 Sig: Take 1 tablet by mouth once daily. Take on empty stomach. For Thyroid Kushal Weldon APRN.CNP * Telephone Encounter - Grace Hughes - 10/07/2022 3:25 PM EST Patient has been identified by name and date of : Yes Requested Prescriptions Pending Prescriptions Disp Refills levothyroxine (SYNTHROID) 88 mcg tablet 30 tablet 2 Sig: Take 1 tablet by mouth once daily. Take on empty stomach. For Thyroid RX INSTRUCTIONS: Patient aware RX will be sent to pharmacy. No need to notify patient. Grace Hughes documented in this encounterSheltering [facility] Hospital12-29-2022 Miscellaneous Notes* Telephone Encounter - Leslie Landa RN - 09/08/2022 4:47 PM EST Patient calls and notified of results and providers instructions. Patient verbalizes understanding.Patient will have labs completed prior to follow up appointment in October. Leslie Landa RN * Telephone Encounter - Sanaz Smith Ma - 09/08/2022 4:23 PM EST Called and left message on patients voicemail to return call to the office and ask to speak with a triage nurse. Sanaz Smith Ma * Telephone Encounter - Armando Orozco MD - 09/08/2022 4:13 PM EST Please notify patient that her thyroid test shows that her TSH is improving ; it is still slightly high at 6, but much better than it was at 12. I would suggest continuing with the 88 mcg dose that she is on, and recheck labs in 3 months with office visit Armando Orozco MD documented in this encounterShel[facility]12-28-2022 Miscellaneous Notes* Telephone Encounter - Armando Orozco MD - 09/07/2022 12:19 PM EST Orders filed Armando Orozco MD * Telephone Encounter - Tahira Perla Ma - 09/07/2022 12:16 PM EST Pt was told in phone note 07/14/22 that her TSH was high and to recheck in 6-8 weeks. [facility] needs orders. Orders pended. Tahira Perla Ma documented in this encounterSheltering [facility] Hospital12-01-2022 History of Present illness Narrative* This patient presents with L shldr, R hip and lumbar complaints all of insidious onset (as far backas 08/11/22). She states that at least films have been taken of her LB and L shldr. A lumbar MRI is pending. Physical findings include limited trunk ROM, L>R leg length, L>R hip weakness (C/O R hip pain), and limited/painful L shldr motion with weakness. PT will continue with R hip PRE, trunk ROM, heel lift trial,, and L shldr motion and PRE as alicia. * Clinical Presentation: Stable and/or uncomplicated characteristics. * Level of Complexity: low * Problem List: activity limitations, ADLs/IADLs/self care skills, decreased functional level, decreased knowledge of HEP, decreased knowledge of precautions, pain, range of motion/joint mobility, strength and transfers. [facility] Work Phone: [phone]) 324-207011-30-2022 NotePlan of Care Continue Current Plan of Care Progress with POC, as tolerated. Discussed plan of care with: patient Patient/caregiver agreeable with plan of care. Assessment Educated patient in Botox treatment including what to expect and ongoing treatment needs. Patient instructed on post procedure safe swallow guidelines and conservative voice measures for the first 1-2 weeks. Instructed patient in voice tracking via journal to help direct future Botox treatments. Will provide journal at upcoming visit. Addressed patient questions pertaining to her upcoming Botox treatment to her satisfaction. Contact information provided to address any additional questions and/or concerns and a 2 week post procedure virtual visit was scheduled. Voice: Voice quality based on the GRBAS scale: 0=absent; 1=mild; 2=moderate; 3=severe Grade: 2 Roughness: 2 Breathiness: 0 Asthenia: 0 Strain: 2 Voice: level 4 initial Adult Risk Screening Initial Fall Risk Screening: BHARTI has not fallen in the last 6 months. Pain Scale: On a scale of 0 to 10, the patient rates the pain at 0. [place] Learner(s) are identified by the patient as person(s) most likely to participate in providing care, such as managing medications or taking them to doctors? appointments. Primary Language for learning: Tamazight. Insurance Insurance reviewed Visit number: 2 Onset Date: 2021 Medicare Certification Period: Beginnin2021 Endin2021 Subjective Living Environment: home - patient lives with spouse. Patient arrival: independent Patient alert and ready to participate in telehealth visit this date. Objective Progress to date: skilled nursing goals: Improve overall vocal health to foster increased participation levels at home, work and in the community environment. Short term goals: Ongoing assessment of voice impairment severity to determine Botox management plan. Patient will demonstrate independent use of voice/swallow/breathing techniques x 80% accuracy. Treatment Time in clinic started at 1115 Time in clinic ended at 1135 Total time in clinic is 20 minutes. Provided to: patient Response to education: verbalized understanding and needs reinforcement Patient/caregiver verbalized understanding and agreement: yes Limited Codes ([facility] Only): [phone] Speech language treatment limited. Signatures Electronically signed by : Perlita Maynard CCC-PULL UP HAND; Aug 10 2022 5:43PM EST (Author) [id number] History of Present illness Narrative* Educated patient in Botox treatment including what to expect and ongoing treatment needs. Patient instructed on post procedure safe swallow guidelines and conservative voice measures for the first 1-2 weeks. Instructed patient in voice tracking via journal to help direct future Botox treatments. Will provide journal at upcoming visit. Addressed patient questions pertaining to her upcoming Botox treatment to her satisfaction. * Contact information provided to address any additional questions and/or concerns and a 2 week post procedure virtual visit was scheduled. * Voice: Voice quality based on the GRBAS scale: 0=absent; 1=mild; 2=moderate; 3=severe * Grade: 2 * Roughness: 2 * Breathiness: 0 * Asthenia: 0 * Strain: 2 * Voice: level 4 initial [facility] Work Phone: 1(390) 350-226211-21-2022 Miscellaneous Notes* Telephone Encounter - Tahira Perla Ma - 08/01/2022 10:02 AM EST Forms faxed to [phone]. Tahira Perla Ma * Telephone Encounter - Armando Orozco MD - 07/29/2022 12:15 PM EST Form done Armando Orozco MD * Telephone Encounter - Kika Costa LPN - 07/21/2022 12:33 PM EST Pt called back and she states she has never had to do this before. 1)She is asking it it can go for the year but will need only intermittent not certain if or when she will need this wants to have in place if needed 2)How many days and how frequently. Wants to have in place if she would need this. Pt not sure how to answer this doesn't know when she will need it, but again wants in place if needed. 3)Conditions: heart, bleeding disorder, Melanoma If you have any other questions, please call pt. Kika Costa LPN * Telephone Encounter - Tahira Perla Ma - 07/21/2022 9:18 AM EST Message left for pt to call back. Tahira Perla Ma * Telephone Encounter - Armando Orozco MD - 07/20/2022 7:21 PM EST How much time off does she think she will need? How many days and how frequently? And for which conditions? Armando Orozco MD * Telephone Encounter - Tahira Perla Ma - 07/13/2022 12:02 PM EDT Pt dropped off FMLA forms that she would like to have completed for intermittent FMLA. Pt saw Dr. Walsh today. Call when completed. Tahira Perla Ma documented in [facility] encounter[facility]11-[facility]22 Miscellaneous Notes* Telephone Encounter - Shannon Elkins RN - 07/14/2022 12:06 PM EDT Patient notified of results and provider's instructions. Patient verbalizes understanding. Shannon Elkins RN * Telephone Encounter - Pema Connors LPN - 07/14/2022 9:29 AM EDT Message left for patient to return call for update on results. * Telephone Encounter - Nik Walsh MD - 07/14/2022 9:22 AM EDT Patient's TSH is now high at 12.8 which indicates she is not getting enough synthroid. Recommend increasing her dosage to 88 mcg daily with recheck in 6-8 weeks. documented in this encounterShel[facility]11-02-2022 History of Present illness Narrative* Nik Walsh MD - 07/13/2022 11:41 AM EDT Chief Complaint Patient presents with: Recheck: Follow up from Cardiology regarding TSH HPI Bharti Akbar is a 76 year old female who presents here today for Above Complaints.. 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 Referred back to our office for additional testing or med adjustment because she has having fatigue. Patient had her synthroid dosage decreased to 75 mcg daily from 100 mcg in April and was supposed to follow up in May for repeat testing. Taking as prescribed. Admits to cold intolerance, constipation, palpitations without bradycardia. Denies weight gain. Past medical history, appointments, medications, allergies reviewed. 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 07/07/2015 HLD (hyperlipidemia) HTN (hypertension) Iron deficiency anemia due to chronic blood loss 03/06/2015 Lens replaced by other means - Right Eye 12/26/2014 Memory loss Osteoarthrosis, unspecified whether generalized or localized, other specified sites Other vitreous opacities - Both Eyes 07/07/2014 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 S/P laser cataract surgery - Right Eye 12/26/2014 S/P LASIK surgery of both eyes - Both Eyes 07/07/2014 Tear film insufficiency, unspecified 12/11/2014 Unspecified constipation Previous Surgical History PAST SURGICAL HISTORY Procedure Laterality Date APPENDECTOMY 1994 ARTHRP INTERPOS INTERCARPAL/METACARPAL JOINTS Right 10/07/2016 Right thumb CMC arthroplasty ; THYROIDECTOMY TOTAL OR COMPLETE 02/08/2012 COLONOSCOPY FLX DX W/COLLJ SPEC WHEN PFRMD 08/03/2005 Colonoscopy COLONOSCOPY GEN ANES 08/26/2020 Repeat in 5-10 years COLONOSCOPY W/BIOPSY SINGLE/MULTIPLE 06/19/2015 normal colon CORRJ HALLUX VALGUS W/SESMDC W/2 OSTEOT 2004 RIGHT FOOT DILATION & CURETTAGE DX&/THER NONOBSTETRIC 1979 AFTER MISCARRAGE EGD 08/26/2020 EGD TRANSORAL BIOPSY SINGLE/MULTIPLE 06/19/2015 gastritis ESOPHAGOGASTRODUODENOSCOPY TRANSORAL DIAGNOSTIC 08/03/2005 EGD PAST SURGICAL HISTORY OF 1975 RECTAL WALL REPAIR PAST SURGICAL HISTORY OF 2002 Lasik Surgery on both eyes ([place]) PAST SURGICAL HISTORY OF 2010 broken neck PAST SURGICAL HISTORY OF 08/2015 Bare metal stent/ graft of heart x 1 PRQ CARDIAC STENT W/ANGIO 1 VSL 09/01/2015 Mid Lad TONSILLECTOMY PRIMARY/SECONDARY <AGE 11 TOTAL ABDOMINAL HYSTERECT W/WO RMVL TUBE OVARY 1994 Hysterectomy, TAHBSO XCAPSL CTRC RMVL INSJ IO LENS PROSTH W/O ECP 12/25/2014 Cataract Extraction with Femtosecond Laser (LenSx)-right eye Family History FAMILY HISTORY Problem Relation Age of Onset Alzheimer's Disease Mother Heart Mother Heart Father 83 years old Hypertension Father Stroke Father Cataract Father other (parkinson's) Father Colon Cancer Maternal Aunt Diabetes Maternal Grandmother Diabetes Maternal Aunt other (ibs) Brother Heart Sister other (knee replacements) Sister other (cataract surgery) Sister Heart Sister Patient Allergies ALLERGIES Allergen Reactions Contrast Dye [Iodin* Itching Pt felt like she was going to or have a seizure, per pt Acetaminophen Other: See Comments Very tense, jittery Albuterol Intolerance Amoxil [Amoxicillin] Other: See Comments Thick tongue Codeine Vomiting Diatrizoate Meglumi* Itching Dyazide [Triamteren* Intolerance incontinence urine Erythromycin GI Upset Flexeril [Cyclobenz* Mental Status Change Oxycodone Vomiting Oxycontin [Oxycodon* GI Upset, Vomiting Tessalon Perles [Be* GI Upset Tetanus Vaccines An* Vicodin [Hydrocodon* Intolerance Twitching, shaky Current Medications Current Outpatient Medications on File Prior to Visit Medication Sig clopidogrel (PLAVIX) 75 mg tablet Take 75 mg by mouth once daily. colestipol (COLESTID) 1 gram tablet Take 1 g by mouth twice daily. PARoxetine (PAXIL) 10 mg tablet Take 1 tablet by mouth once daily. levothyroxine (SYNTHROID) 75 mcg tablet Take 1 tablet by mouth once daily. Take on empty stomach. For Thyroid traZODone (DESYREL) 50 mg tablet Take 2 tablets by mouth daily at bedtime. Olopatadine (PATADAY ONCE DAILY RELIEF) 0.2 % drop Use 1 Drop in both eyes once daily. diclofenac (VOLTAREN ARTHRITIS PAIN) 1 % topical gel Apply 2 g to affected area four times daily. mesalamine DR (DELZICOL) 400 mg capsule Take 1 capsule by mouth twice daily. atorvastatin (LIPITOR) 20 mg tablet Take 20 mg by mouth once daily. metoprolol tartrate, short acting, (LOPRESSOR) 50 mg tablet Take 50 mg by mouth once daily. potassium chloride SR (MICRO-K) 10 mEq CR capsule Take 20 mEq by mouth once daily. lisinopril (ZESTRIL, PRINIVIL) 20 mg tablet Take 20 mg by mouth once daily. hydroCHLOROthiazide (HYDRODIURIL, ESIDRIX) 25 mg tablet Take 1 tablet by mouth once daily. aspirin, enteric coated (ASPIRIN, ENTERIC COATED) 81 mg EC tablet Take 1 tablet by mouth once daily. COMPOUNDED PRESCRIPTION Home blood pressure monitor. DX: Essential HTN I10 CENTRUM SILVER ORAL TAB Take one(1) tablet daily. No current facility-administered medications on file prior to visit. Social History Social History Tobacco Use Smoking status: Never Smokeless tobacco: Never Substance Use Topics Alcohol use: Yes Comment: special occasions Drug use: No Comment: coffee Review of Symptoms REVIEW OF SYSTEMS See HPI EXAM: BP 114/60 Pulse 65 Resp 18 Wt 54 kg (119 lb) SpO2 96% BMI 21.42 kg/m General Appearance: Well appearing, alert, in no acute distress, well-hydrated, well nourished.. Skin: Skin color, texture, turgor normal, no suspicious rashes or lesions. Neck: s/p thyroidectomy without nodules or TTP. Lungs: Lungs clear to auscultation. No wheezing, rhonchi, rales.. Heart: RRR without murmur, gallop, or rubs. No ectopy. Extremities: No deformities, edema, skin discoloration, clubbing or cyanosis. Good capillary refill. . Health Maintenance List SHINGRIX VACCINE(2 of 3) due on 01/04/2013 COVID-19 VACCINE(3 - Booster for Lilly series) due on 05/27/2021 INFLUENZA(1) due on 05/12/2022 LDL CHOLESTEROL due on 12/02/2022 ANNUAL PCP TEAM CHRONIC DISEASE VISIT due on 05/05/2023 BP CONTROLLED (<130/80) due on 05/05/2023 DIABETES SCREEN due on 08/10/2024 DTAP,TDAP,TD(4 - Td or Tdap) due on 12/04/2029 BONE DENSITY Completed ADVANCE DIRECTIVE DISCUSSION Completed HEPATITIS C SCREENING Completed PNEUMOCOCCAL: 65+ Completed ASSESSMENT/PLAN: 1. Postsurgical hypothyroidism - ICD9: 244.0, ICD10: E89.0 - Instructed patient on importance of taking on an empty stomach either first thing in the morning or at bedtime. - check TSH and free T4 today - continue current dose of Synthroid 0.075 mg and will call with results. 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 She received the JJCOVID vaccine and had adverse effects - perhaps some worsening of her voice at this time. * Interval History (06/2022): * She is here for a botx * No swallowing, breathing, laryngospasm, fever, chills, nausea or vomiting. * ROS performed. All other systems are reviewed and are negative for complaint except as noted in HPI. [facility] [address] Work Phone: [phone]) 167-429308-25-2022 Instructions* Patient Instructions* Emelia Lynn APRN.CNP - 05/05/2022 8:24 AM EDT 1.) Reduce synthroid to 75 mcg daily. Recheck labs in 6-8 weeks. 2.) Start Paxil 10 mg daily 3.) Continue to take all medication as prescribed. 4.) Follow up in 1 month or sooner as needed, may be a virtual or phone visit. SSRI: We discussed starting medication during today s visit for your anxiety and/or depression. This medication will take 4-6 weeks to start feeling better. The most common side effects of this medication are nausea and dry mouth. If you experience any side effects from this medication (mood changes, insomnia, etc), please contact your healthcare provider for further instructions. Do not stop taking this medication abruptly. documented in this encounterShel[facility]08-25-2022 History of Present illness Narrative* Emelia Lynn APRN.CNP - 05/05/2022 8:00 AM EDT This is a 76 year old female who presents today with: Patient presents with: Acute Visit: medication, anxiety, low thyroid HISTORY OF PRESENT ILLNESS: Bharti Akbar is a 76 year old female. Patient presents with: Acute Visit: medication, anxiety, low thyroid Here in the office to go over medications and labs. HTN: Taking Lopressor 50 mg, lisinopril 20 mg, hydrochlorothiazide 25 mg daily. Checking blood pressure at home, 110-120's SBP. Denies chest pain, palpitations, dizziness, or edema. Sleep: Taking 100 mg of trazodone at bedtime to help with sleep. Decreased dosage and refers she sleeps better. Thyroid: Taking Synthroid 100 mcg. Recent TSH Low 0.14. Increased tiredness. Lipids: Taking Lipitor 20 mg daily. Anxiety/Depression: Increased sadness, crying, and wanting to sleep more. Feeling anxious and over thinking. No SI/HI. Would like to try some medication to help. 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 07/07/2015 HLD (hyperlipidemia) HTN (hypertension) Iron deficiency anemia due to chronic blood loss 03/06/2015 Lens replaced by other means - Right Eye 12/26/2014 Memory loss Osteoarthrosis, unspecified whether generalized or localized, other specified sites Other vitreous opacities - Both Eyes 07/07/2014 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 S/P laser cataract surgery - Right Eye 12/26/2014 S/P LASIK surgery of both eyes - Both Eyes 07/07/2014 Tear film insufficiency, unspecified 12/11/2014 Unspecified constipation PAST SURGICAL HISTORY Procedure Laterality Date APPENDECTOMY 1994 ARTHRP INTERPOS INTERCARPAL/METACARPAL JOINTS Right 10/07/2016 Right thumb CMC arthroplasty ; THYROIDECTOMY TOTAL OR COMPLETE 02/08/2012 COLONOSCOPY FLX DX W/COLLJ SPEC WHEN PFRMD 08/03/2005 Colonoscopy COLONOSCOPY GEN ANES 08/26/2020 Repeat in 5-10 years COLONOSCOPY W/BIOPSY SINGLE/MULTIPLE 06/19/2015 normal colon CORRJ HALLUX VALGUS W/SESMDC W/2 OSTEOT 2004 RIGHT FOOT DILATION & CURETTAGE DX&/THER NONOBSTETRIC 1979 AFTER MISCARRAGE EGD 08/26/2020 EGD TRANSORAL BIOPSY SINGLE/MULTIPLE 06/19/2015 gastritis ESOPHAGOGASTRODUODENOSCOPY TRANSORAL DIAGNOSTIC 08/03/2005 EGD PAST SURGICAL HISTORY OF 1975 RECTAL WALL REPAIR PAST SURGICAL HISTORY OF 2002 Lasik Surgery on both eyes ([place]) PAST SURGICAL HISTORY OF 2010 broken neck PAST SURGICAL HISTORY OF 08/2015 Bare metal stent/ graft of heart x 1 PRQ CARDIAC STENT W/ANGIO 1 VSL 09/01/2015 Mid Lad TONSILLECTOMY PRIMARY/SECONDARY <AGE 11 TOTAL ABDOMINAL HYSTERECT W/WO RMVL TUBE OVARY 1994 Hysterectomy, TAHBSO XCAPSL CTRC RMVL INSJ IO LENS PROSTH W/O ECP 12/25/2014 Cataract Extraction with Femtosecond Laser (LenSx)-right eye ALLERGIES Contrast Dye [Iodine], Acetaminophen, Albuterol, Amoxil [Amoxicillin], Codeine, Diatrizoate Meglumine, Dyazide [Triamterene-Hydrochlorothiazid], Erythromycin, Flexeril [Cyclobenzaprine], Oxycodone, Oxycontin [Oxycodone Hcl], Tessalon Perles [Benzonatate], Tetanus Vaccines And Toxoid, and Vicodin [Hydrocodone-Acetaminophen] MEDICATIONS Current Outpatient Medications Medication Sig levothyroxine (SYNTHROID) 100 mcg tablet Take 1 tablet by mouth daily before breakfast. Olopatadine (PATADAY ONCE DAILY RELIEF) 0.2 % drop Use 1 Drop in both eyes once daily. traZODone (DESYREL) 50 mg tablet Take 4 tablets by mouth daily at bedtime. diclofenac (VOLTAREN ARTHRITIS PAIN) 1 % topical gel Apply 2 g to affected area four times daily. mesalamine DR (DELZICOL) 400 mg capsule Take 1 capsule by mouth twice daily. atorvastatin (LIPITOR) 20 mg tablet Take 20 mg by mouth once daily. metoprolol tartrate, short acting, (LOPRESSOR) 50 mg tablet Take 50 mg by mouth once daily. potassium chloride SR (MICRO-K) 10 mEq CR capsule Take 20 mEq by mouth once daily. lisinopril (ZESTRIL, PRINIVIL) 20 mg tablet Take 20 mg by mouth once daily. hydroCHLOROthiazide (HYDRODIURIL, ESIDRIX) 25 mg tablet Take 1 tablet by mouth once daily. aspirin, enteric coated (ASPIRIN, ENTERIC COATED) 81 mg EC tablet Take 1 tablet by mouth once daily. COMPOUNDED PRESCRIPTION Home blood pressure monitor. DX: Essential HTN I10 CENTRUM SILVER ORAL TAB Take one(1) tablet daily. No current facility-administered medications for this visit. FAMILY HISTORY Problem Relation Age of Onset Alzheimer's Disease Mother Heart Mother Heart Father 83 years old Hypertension Father Stroke Father Cataract Father other (parkinson's) Father Colon Cancer Maternal Aunt Diabetes Maternal Grandmother Diabetes Maternal Aunt other (ibs) Brother Heart Sister other (knee replacements) Sister other (cataract surgery) Sister Heart Sister Social History Tobacco Use Smoking status: Never Smokeless tobacco: Never Substance Use Topics Alcohol use: Yes Comment: special occasions Drug use: No Comment: coffee REVIEW OF SYSTEMS GENERAL: + Fatigue HEENT: Negative for frequent or significant headaches, No changes in hearing or vision. NECK: Negative for lumps, goiter, pain and significant neck swelling RESPIRATORY: Negative for cough, hemoptysis, wheezing, dyspnea or shortness of breath CARDIOVASCULAR: Negative for chest pain, leg swelling, orthopnea, or palpitations GI: No nausea, vomiting, or diarrhea/constipation. No hematochezia/melena. No heartburn or reflux symptoms. : No history of dysuria, frequency or incontinence MUSCULOSKELETAL: Negative for joint pain or swelling. SKIN: Negative for lesions, rash, and itching ENDOCRINE: Negative for cold or heat intolerance, polyuria, polydipsia and goiter NEURO: No history of headaches, syncope, paralysis, seizures or tremors MOOD: + Anxious/sadness EXAM: BP 100/52 Pulse 62 Resp 16 Wt 54.9 kg (121 lb) SpO2 100% BMI 21.78 kg/m PHYSICAL EXAM: General Appearance: Well appearing, alert, in no acute distress, well-hydrated, well nourished. Skin: Skin color, texture, turgor normal, no suspicious rashes or lesions. Head: Normocephalic, no masses, lesions, tenderness or abnormalities. Eyes: Anicteric sclera. Extraocular movements are intact. Neck: Supple, no adenopathy; normal size, no bruits Lungs: Lungs clear to auscultation. No wheezing, rhonchi, rales. Heart: RRR without murmur, gallop, or rubs. No ectopy. Extremities: No deformities, edema, skin discoloration, clubbing or cyanosis. Good capillary refill. Musculoskeletal: No joint swelling, deformity, or tenderness. Peripheral Pulses: Normal, Capillary refill <2secs, strong peripheral pulses, Pulses palpable. Neurologic: Gait normal. Sensation grossly intact. ASSESSMENT/PLAN: 1. Postsurgical hypothyroidism - ICD9: 244.0, ICD10: E89.0 (primary diagnosis) - Instructed patient on importance of taking on an empty stomach either first thing in the morning or at bedtime. - Decrease Synthroid dose to 0.075 mg - Get repeat labs in 6-8 weeks. - LEVOTHYROXINE 75 MCG TABLET - TSH BLD - T4 FREE/FREE THYROX 2. Anxiety with depression - ICD9: 300.4, ICD10: F41.8 - Start Paxil 10 mg daily. - Medication education and instructions give. - Follow up in 1 month. - PAROXETINE 10 MG TABLET 3. Chronic insomnia - ICD9: 780.52, ICD10: F51.04 - Adjusted Sig, only taking 100 mg at bedtime. - TRAZODONE 50 MG TABLET 4. Essential hypertension - ICD9: 401.9, ICD10: I10 - good control - Continue current medication(s) - Recommended regular aerobic exercise. - Goal of BP <130/80 5. Hyperlipidemia, unspecified hyperlipidemia type - ICD9: 272.4, ICD10: E78.5 - good control - Continue current medication. Follow up in 1 month or sooner as needed. Discussed treatment plan and patient voices understanding. Patient's questions answered appropriately. Medications and potential side effects were discussed and patient voices understanding. Emelia Lynn APRN.FREDY This note was partially generated using [employer] voice recognition system. Note was reviewed for accuracy. There may be minor misspellings or grammar miscues with [employer] voice recognition. documented in this encounterSheltering [facility]07-21-2022 History of Present illness Narrative* Sanaz Smith Ma - 03/31/2022 11:51 AM EDT See scanned GI H&P. Scan on 03/31/2022 10:42 AM by External Provider: Consultation - GI Sanaz Smith Ma documented in this encounterSheltering [facility] Hospital05-26-2022 Miscellaneous Notes* Telephone Encounter - Armando Orozco MD - 02/03/2022 2:07 PM EDT Noted Armando Orozco MD * Telephone Encounter - Kathi Velazco RN - 02/03/2022 12:19 PM EDT Pt reports she doesn't want to cut back on the Trazodone, she said she tried going down to three pills at one time and she said she wasn't sleeping right. She states she will call Cardiology and see what they have to say. * Telephone Encounter - Armando Orozco MD - 02/03/2022 11:57 AM EDT The only medication that I see that she could try to get off of is the trazodone that she takes at bedtime; could try reducing this and see how she layne. Armando Orozco MD * Telephone Encounter - Sanaz Smith Ma - 02/03/2022 11:08 AM EDT Please review message. Pt receives medications from Cardio/Gastro and would need to contact them tosee if anything can be d/c. Advise and I will send message to pt. Sanaz Smith Ma * Telephone Encounter - Shantal Najera LPN - 02/03/2022 10:44 AM EDT Patient calling asking if she has any medications that she can stop taking? Patient is trying to get her medications cut back cost [place]. 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 Patient said she does see Dr Max for Cardiology, he has her on Plavix due to her stents and Dr Lewis for Gastroenterology. Patient said she is off work today, can call her or send her a my chart message. Please advise documented in this encounterSheltering [facility]04-01-2022 History of Present illness Narrative* Armando Orozco MD - 12/10/2021 1:20 PM EDT Medical B eligibilty date 2009 Date of last exam 05/01/2019 Doing well. Follows with GI and Cardiology. Hoping to get back to work next month. 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 07/07/2015 HLD (hyperlipidemia) HTN (hypertension) Iron deficiency anemia due to chronic blood loss 03/06/2015 Lens replaced by other means - Right Eye 12/26/2014 Memory loss Osteoarthrosis, unspecified whether generalized or localized, other specified sites Other vitreous opacities - Both Eyes 07/07/2014 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 S/P laser cataract surgery - Right Eye 12/26/2014 S/P LASIK surgery of both eyes - Both Eyes 07/07/2014 Tear film insufficiency, unspecified 12/11/2014 Unspecified constipation PAST SURGICAL HISTORY Procedure Laterality Date APPENDECTOMY 1994 ARTHRP INTERPOS INTERCARPAL/METACARPAL JOINTS Right 10/07/2016 Right thumb CMC arthroplasty ; THYROIDECTOMY TOTAL OR COMPLETE 02/08/2012 COLONOSCOPY FLX DX W/COLLJ SPEC WHEN PFRMD 08/03/2005 Colonoscopy COLONOSCOPY GEN ANES 08/26/2020 Repeat in 5-10 years COLONOSCOPY W/BIOPSY SINGLE/MULTIPLE 06/19/2015 normal colon CORRJ HALLUX VALGUS W/SESMDC W/2 OSTEOT 2004 RIGHT FOOT DILATION & CURETTAGE DX&/THER NONOBSTETRIC 1979 AFTER MISCARRAGE EGD 08/26/2020 EGD TRANSORAL BIOPSY SINGLE/MULTIPLE 06/19/2015 gastritis ESOPHAGOGASTRODUODENOSCOPY TRANSORAL DIAGNOSTIC 08/03/2005 EGD PAST SURGICAL HISTORY OF 1975 RECTAL WALL REPAIR PAST SURGICAL HISTORY OF 2002 Lasik Surgery on both eyes ([place]) PAST SURGICAL HISTORY OF 2010 broken neck PAST SURGICAL HISTORY OF 08/2015 Bare metal stent/ graft of heart x 1 PRQ CARDIAC STENT W/ANGIO 1 VSL 09/01/2015 Mid Lad TONSILLECTOMY PRIMARY/SECONDARY <AGE 11 TOTAL ABDOMINAL HYSTERECT W/WO RMVL TUBE OVARY 1994 Hysterectomy, TAHBSO XCAPSL CTRC RMVL INSJ IO LENS PROSTH W/O ECP 12/25/2014 Cataract Extraction with Femtosecond Laser (LenSx)-right eye Contrast Dye [Iodine], Acetaminophen, Albuterol, Amoxil [Amoxicillin], Codeine, Diatrizoate Meglumine, Dyazide [Triamterene-Hydrochlorothiazid], Erythromycin, Flexeril [Cyclobenzaprine], Oxycodone, Oxycontin [Oxycodone Hcl], Tessalon Perles [Benzonatate], Tetanus Vaccines And Toxoid, and Vicodin [Hy drocodone-Acetaminophen] Current Outpatient Medications Medication Sig Olopatadine (PATADAY ONCE DAILY RELIEF) 0.2 % drop Use 1 Drop in both eyes once daily. traZODone (DESYREL) 50 mg tablet Take 4 tablets by mouth daily at bedtime. diclofenac (VOLTAREN ARTHRITIS PAIN) 1 % topical gel Apply 2 g to affected area four times daily. vancomycin (VANCOCIN) 250 mg capsule Take 1 capsule by mouth every 6 hours. (Patient not taking: Reported on 10/27/2021 ) mesalamine DR (DELZICOL) 400 mg capsule Take 1 capsule by mouth twice daily. levothyroxine (SYNTHROID) 100 mcg tablet Take 1 tablet by mouth daily before breakfast. tiZANidine (ZANAFLEX) 4 mg tablet Take 1 tablet by mouth once daily. atorvastatin (LIPITOR) 20 mg tablet Take 20 mg by mouth once daily. metoprolol tartrate, short acting, (LOPRESSOR) 50 mg tablet Take 50 mg by mouth once daily. potassium chloride SR (MICRO-K) 10 mEq CR capsule Take 20 mEq by mouth once daily. lisinopril (ZESTRIL, PRINIVIL) 20 mg tablet Take 20 mg by mouth once daily. hydroCHLOROthiazide (HYDRODIURIL, ESIDRIX) 25 mg tablet Take 1 tablet by mouth once daily. aspirin, enteric coated (ASPIRIN, ENTERIC COATED) 81 mg EC tablet Take 1 tablet by mouth once daily. COMPOUNDED PRESCRIPTION Home blood pressure monitor. DX: Essential HTN I10 CENTRUM SILVER ORAL TAB Take one(1) tablet daily. No current facility-administered medications for this visit. Medications reviewed: Yes FAMILY HISTORY Problem Relation Age of Onset Alzheimer's Disease Mother Heart Mother Heart Father 83 years old Hypertension Father Stroke Father Cataract Father other (parkinson's) Father Colon Cancer Maternal Aunt Diabetes Maternal Grandmother Diabetes Maternal Aunt other (ibs) Brother Heart Sister other (knee replacements) Sister other (cataract surgery) Sister Heart Sister Social History Tobacco Use Smoking status: Never Smoker Smokeless tobacco: Never Used Substance Use Topics Alcohol use: Yes Comment: special occasions Drug use: No Comment: lynne Hay denies regular aerobic exercise. Trying to improve this by getting on a rowing machine 3 days per week. She watches her diet by avoiding foods that will irritate her stomach and milk. Eat more fruits and vegetables. Questions whether she needs to see vascular surgeon for varicose vein on left lower leg. With standing the vein will bulge and ache. Falls - Increased falls, feels this is related to losing muscle. Since falling has left sided jaw grinding and popping. Denies any pain. List of current specialists seen: Cardio - Dr. Max Gastro - [facility] [place] - [facility], Dr. Barrera Dentist - Follows with Provider in [place]. End of Live Planning discussed including patients advanced directive wishes: Yes I am willing to follow [facility]harti advanced directives. Depression screen She in the past two weeks admits to having felt down due to loss of her brother due to Covid. Denies feeling depressed. Functional Ability/Safety Screen 1. Was the patient's timed Up and Go test unsteady or longer than 30 seconds? No 2. Does the patient need help with the phone, transportation, shopping,preparing meals, housework, laundry, medications or managing money? No 3. Does your home have rungs in the hallway, lack of grab bars in the bathroom, lack of handrails on the stairs or have poor lighting? + throw rug. + grab bars, + handrails and good lighting at home Hearing Evaluation: normal PHYSICAL EXAM BP 114/72 (BP Site: Left Arm, BP Position: Sitting, BP Cuff Size: Regular Adult) Pulse 60 Resp 16 Ht 158.8 cm (5' 2.5) Wt 52.8 kg (116 lb 6.4 oz) BMI 20.95 kg/m Visual acuity: OD: 20/20 OS: 20/ 100 OU: 20/13 - monovision Color green pt states green/blue ASSESMENT/PLAN: 76 year old female The following prevention plan was discussed during the office visit and provided to the patient: - Fall avoidance; ordered Cardiac Rehab that she will do in [place] - Continue current medications. Follow up in 6 months Armando Orozco MD [facility] NotePROCEDURE: IR SELECTIVE VISCERAL ARTERIOGRAM (08/08/2021 20:08 PM) CLINICAL INDICATIONS: 75-year-old woman presenting with blood loss anemia from gastrointestinal source. COMPARISON: CT angiogram August 08, 2021. CONSENT: Following discussion of the risks, benefits, and alternatives of the procedure, written informed consent was obtained. SEDATION: I performed Moderate Sedation which included the presence of a nurse that assisted in monitoring the patient's level of consciousness and physiologic status. After administration of sedative medication(s), I spent 133 minutes of continuous [id number] time with the patient. PROCEDURE MEDICATIONS: 5:39 PM 08/08/21 fentaNYL (SUBLIMAZE) injection 0-300 mcg 50 mcg Given Rate: 0 Route: Intravenous; 5:39 PM 08/08/21 midazolam (VERSED) injection 0-10 mg 1 mg Given Rate: 0 Route: Intravenous; 5:57 PM 08/08/21 fentaNYL (SUBLIMAZE) injection 0-300 mcg 50 mcg Given Rate: 0 Route: Intravenous; 5:57 PM 08/08/21 midazolam (VERSED) injection 0-10 mg 1 mg Given Rate: 0 Route: Intravenous; 7:35 PM 08/08/21 fentaNYL (SUBLIMAZE) injection 0-300 mcg 50 mcg Given Rate: 0 Route: Intravenous; 7:35 PM 08/08/21 midazolam (VERSED) injection 0-10 mg 1 mg Given Rate: 0 Route: Intravenous; 7:54 PM 08/08/21 lidocaine 2 % injection 0-400 mg 2 mL Given Rate: 0 Route: Infiltration; 7:54 PM 08/08/21 iohexol (OMNIPAQUE) 300 MG/ML vial 50 mL 111 mL Given Rate: 0 Route: Intravenous; CARD SELLER(S): Juanpablo Holm MD (Attending). Emelia Abraham MD (Resident). FLUOROSCOPY TIME: 39.8 minutes COMPLICATIONS: None immediate TECHNIQUE: Procedure Performed: 1. Ultrasound-guided access of the patent right common femoral artery. Sheath angiogram 2. Diagnostic celiac artery angiogram 3. Diagnostic superior mesenteric artery angiogram 4. Diagnostic right colic artery angiogram 5. Coil embolization of a vascular arcade from the ileocolic artery supplying hemorrhage into the terminal ileum 6. Arteriotomy closure using the Mynx device Position: The patient was transferred to the IR laboratory and was positioned supine on the procedural table. The right groin was prepared and draped using maximum sterile barrier technique. This consisted of cap, mask, hand hygiene, sterile gown and gloves, 2% Chlorhexidine solution for cutaneous antisepsis, and occlusive sterile draping of the field. Time Out: A time out was performed prior to the procedure in the presence of the patient and all personnel involved in the case. The patient's identity, procedure type, procedure side/site, and allergies were verified. Procedure Description: After infiltration of the skin and subcutaneous tissue over the patent right common femoral artery with lidocaine, the vessels accessed using direct sterile sonographic guidance with the micropuncture kit. An image was saved image archive system. Exchange is made for a 5-Eritrean and a static sheath over a Bentson wire. Sheath angiogram was acquired. A Evan catheter was used to select the celiac artery, and diagnostic celiac artery angiogram was acquired. The catheter was then used to select the superior mesenteric artery, and diagnostic superior mesenteric artery angiogram was acquired. A microcatheter and microwire were used to select the right colic artery, and diagnostic right colic artery angiogram was acquired. Microwire and microcatheter were used to select the ileocolic artery and then the vascular arcade shown to supply hemorrhage into the terminal ileum. This was embolized with coils. Completion angiogram from more proximal in the ileocolic artery was acquired. All wires, catheters, and sheaths were removed, and hemostasis was achieved using the Mynx device. The right groin was then cleaned and dressed appropriately. FINDINGS: Diagnostic celiac artery angiogram shows conventional vessel branching pattern. No contrast extravasation. ? Diagnostic superior mesenteric artery angiogram delineates a standard vessel branching pattern. The region of interest at the level of the terminal ileum corresponding to the abnormality from the CTA dated August 08, 2021 was identified. This was supplied by the ileocolic branch from the right colic artery. ? Diagnostic right colic artery angiogram again delineates the ileocolic branch supplying the region of interest from CTA earlier today. Contrast extravasation was identified from a vascular arcade in the terminal ileum. ? Coil embolization was performed of the terminal ileum vascular arcade supplying the hemorrhage into the terminal ileum.?This was the hemorrhage which corresponds to the abnormality from the CTA earlier today?08/08/2021.?Completion angiography?showed cessation of hemorrhage. There is absence of flow distal to the coil mass. IMPRESSION: 1. Hemorrhage into the terminal ileum is identified. This corresponds to the region of interest from the CTA from earlier today (more content not included)...[facility]08-18-2021 Miscellaneous Notes* Assessment & Plan Note - Love Ferraro CNP - 04/28/2021 12:13 PM EDT Associated Problem(s): CAD (coronary artery disease) Patient with history of CAD, s/p stent intervention to LAD in 2014. She presented to [facility] with complaints of chest pain on 04/17/2021 while doing something physical while at work. She was subsequently transferred to [facility] for ongoing cardiac care and management. Serial enzymes negative, EKG nonacute but given her symptoms and history of CAD with previous stentintervention she was brought to the heart catheterization for invasive assessment. [facility] 04/19/2021 revealed two-vessel obstructive CAD of LAD and D2; mildly elevated left heart filling pressures. Patient underwent successful percutaneous coronary intervention of mid LAD with a 2.75 mmx 12 mm and a 2.75 x 8 mm Synergy drug- eluting stent. Post procedure patient was given a loading dose of Brilinta 180 mg daily then started on Brilinta 90 mg twice a day in addition to aspirin EC 81 mg daily. 2D echo summary 1. Normal left ventricular chamber size. Systolic function is normal with no regional wall motion abnormalities with an estimated ejection fraction of 60-65%. 2. Right ventricular chamber dimension is normal. Right ventricular systolic function is normal. 3. Left atrial chamber is moderately enlarged. 4. There is mild aortic valve regurgitation. 5. There is no pulmonary hypertension, estimated right ventricle systolic pressure is 27 mmHg. Patient was discharged home on aspirin EC 81 mg daily, Brilinta 90 mg twice a day, Lipitor 40 mg daily, hydrochlorothiazide 25 mg daily, lisinopril 20 mg daily with lunch, metoprolol tartrate 25 mg twice a day, nitroglycerin 0.4 mg SL as needed for chest pain in addition to her other noncardiac medications. Patient was recommended to be off work for 2 weeks with return 05/07/2021. She is brought [facility] paperwork to be completed for her employer. Today patient states she is feeling improved. She still has some fatigue but no chest pain, shortness of breath, orthopnea, PND, dependent edema, lightheadednessor dizziness, palpitations. She does report that she has been having some gastric irritation since starting on some of the medication. She states that she is taken an acid knotter hand at bedtime which has helped. She states that her insurance will not cover any type of antiacid therapy. Recommendations: 1. Continue dual antiplatelet therapy with aspirin and Brilinta. Continue Lipitor, hydrochlorothiazide, lisinopril and metoprolol tartrate. Nitroglycerin 0.4 mg SL as needed for chest pain. Famotidine 2. I have added famotidine 40mg daily in am on empty stomach 30 minutes prior to rest of medication. I have told her that if her insurance does not pay for medication, she can purchase over the counter and take two 20mg tablets daily. 3. Cardiac rehab in future. 4. Follow up as scheduled with stunt person. documented in this [id number] Instructions* Patient Instructions* Love Ferraro CNP - 04/28/2021 10:20 AM EDT 1. I am going to add Pepcid (Famotdine) 40mg daily in the am on an empty stomach about 30 minutes prior to taking rest of medications. 2. Cardiac rehab as scheduled 3. Follow up as scheduled. documented in this [id number] History of Present illness Narrative* Love Ferraro CNP - 04/28/2021 10:09 AM EDT [facility] [address] ([address]) [facility] [address] [facility] [id number] Physicians: Armando Orozco MD (Family); No ref. provider found (Referring) Today's Chief Complaint: Follow-up HISTORY: Subjective I had the pleasure of seeing Ms. Akbar in follow up today at the [facility] in [place]. is a 75 y.o. female who has a past medical history of Arthritis, Coronary artery disease, Disease of thyroid gland, Hyperlipidemia, and Hypertension.. This is a hospital follow-up for a recent admission on 04/17/2021 for chest discomfort, history of previous intervention with coronary stent. She was evaluated by our service while in the hospital. Herserial enzymes were negative, EKG nonacute. Patient did undergo invasive assessment for her historyof coronary artery disease and was found to have two-vessel obstructive CAD involving her LAD and D2. Patient did undergo successful percutaneous coronary intervention of her mid LAD with LAYNE x2 and successful POBA of D2. Impression/Plan: CAD (coronary artery disease) Patient with history of CAD, s/p stent intervention to LAD in 2014. She presented to [facility] with complaints of chest pain on 04/17/2021 while doing something physical while at work. She was subsequently transferred to [facility] for ongoing cardiac care and management. Serial enzymes negative, EKG nonacute but given her symptoms and history of CAD with previous stentintervention she was brought to the heart catheterization for invasive assessment. [facility] 04/19/2021 revealed two-vessel obstructive CAD of LAD and D2; mildly elevated left heart filling pressures. Patient underwent successful percutaneous coronary intervention of mid LAD with a 2.75 mmx 12 mm and a 2.75 x 8 mm Synergy drug- eluting stent. Post procedure patient was given a loading dose of Brilinta 180 mg daily then started on Brilinta 90 mg twice a day in addition to aspirin EC 81 mg daily. 2D echo summary 1. Normal left ventricular chamber size. Systolic function is normal with no regional wall motion abnormalities with an estimated ejection fraction of 60-65%. 2. Right ventricular chamber dimension is normal. Right ventricular systolic function is normal. 3. Left atrial chamber is moderately enlarged. 4. There is mild aortic valve regurgitation. 5. There is no pulmonary hypertension, estimated right ventricle systolic pressure is 27 mmHg. Patient was discharged home on aspirin EC 81 mg daily, Brilinta 90 mg twice a day, Lipitor 40 mg daily, hydrochlorothiazide 25 mg daily, lisinopril 20 mg daily with lunch, metoprolol tartrate 25 mg twice a day, nitroglycerin 0.4 mg SL as needed for chest pain in addition to her other noncardiac medications. Patient was recommended to be off work for 2 weeks with return 05/07/2021. She is brought [employer] paperwork to be completed for her employer. Today patient states she is feeling improved. She still has some fatigue but no chest pain, shortness of breath, orthopnea, PND, dependent edema, lightheadednessor dizziness, palpitations. She does report that she has been having some gastric irritation since starting on some of the medication. She states that she is taken an acid knotter hand at bedtime which has helped. She states that her insurance will not cover any type of antiacid therapy. Recommendations: 1. Continue dual antiplatelet therapy with aspirin and Brilinta. Continue Lipitor, hydrochlorothiazide, lisinopril and metoprolol tartrate. Nitroglycerin 0.4 mg SL as needed for chest pain. Famotidine 2. I have added famotidine 40mg daily in am on empty stomach 30 minutes prior to rest of medication. I have told her that if her insurance does not pay for medication, she can purchase over the counter and take two 20mg tablets daily. 3. Cardiac rehab in future. 4. Follow up as scheduled with stunt person. FOR THE RECORD: Diagnostic Studies/Labs personally reviewed: Reviewed hospitalization records Problem Cad (Coronary Artery Disease) Allergies: is allergic to acetaminophen and codeine. Medications: (list name, dose, frequency, and last dose taken): Current Outpatient Medications: aspirin 81 MG EC tablet, Take 1 (one) tablet (81 mg total) by mouth daily ., Disp: 30 tablet, Rfl: 11 atorvastatin (LIPITOR) 40 MG tablet, Take 1 (one) tablet (40 mg total) by mouth daily ., Disp: 30 tablet, Rfl: 11 hydroCHLOROthiazide (HYDRODIURIL) 25 MG tablet, Take 1 (one) tablet (25 mg total) by mouth daily .,Disp: 30 tablet, Rfl: 11 levothyroxine (SYNTHROID, LEVOTHROID) 100 MCG tablet, Take 100 mcg by mouth once daily ., Disp: , Rfl: lisinopriL (PRINIVIL,ZESTRIL) 20 MG tablet, Take 1 (one) tablet (20 mg total) by mouth daily with lunch ., Disp: 30 tablet, Rfl: 11 meloxicam (MOBIC) 7.5 MG tablet, Take 7.5 mg by mouth daily ., Disp: , Rfl: metoprolol succinate (TOPROL-XL) 50 MG 24 hr tablet, Take 1 (one) tablet (50 mg total) by mouth daily ., Disp: 30 tablet, Rfl: 11 multivitamin (multivitamin) per tablet, Take 1 tablet by mouth daily ., Disp: , Rfl: potassium chloride SA (K-DUR,KLOR-CON) 20 MEQ tablet, Take 1 (one) tablet (20 mEq total) by mouth daily ., Disp: 30 tablet, Rfl: 11 ticagrelor (BriLINTA) 90 mg Tab tablet, Take 1 (one) tablet (90 mg total) by mouth 2 (two) times a day ., Disp: 60 tablet, Rfl: 11 traZODone (DESYREL) 50 MG tablet, Take 200 mg by mouth nightly as needed ., Disp: , Rfl: famotidine (PEPCID) 20 MG tablet, Take 1 (one) tablet (20 mg total) by mouth 2 (two) times a day .,Disp: 60 tablet, Rfl: 11 Past Medical History: Diagnosis Date Arthritis Coronary artery disease Disease of thyroid gland Hyperlipidemia Hypertension Past Surgical History: Procedure Laterality Date CARDIAC CATHETERIZATION 09/01/2015 with stent placement CARDIAC CATHETERIZATION N/A 04/19/2021 Procedure: Left Heart Cath Possible PTCA/Stent; Surgeon: Antonio Tian MD; Location: [facility] [employer]; Service: Cardiovascular CATARACT EXTRACTION, BILATERAL Bilateral CORONARY STENT PLACEMENT HYSTERECTOMY (CERVIX REMOVED) ORTHOPEDIC SURGERY right foot and right hand surgery REFRACTIVE SURGERY Bilateral THYROIDECTOMY REVIEW OF SYSTEMS Review of Systems Constitutional: Positive for malaise/fatigue (improving). Negative for chills, decreased appetite, diaphoresis, fever, night sweats, weight gain and weight loss. HENT: Negative for congestion, hoarse voice and sore throat. Eyes: Negative for visual disturbance. Cardiovascular: Negative for chest pain, claudication, cyanosis, dyspnea on exertion, irregular heartbeat, leg swelling, near-syncope, orthopnea, palpitations and paroxysmal nocturnal dyspnea. Respiratory: Negative for cough, hemoptysis, shortness of breath, sleep disturbances due to breathing, sputum production and wheezing. Endocrine: Negative for cold intolerance and heat intolerance. Hematologic/Lymphatic: Does not bruise/bleed easily. Skin: Negative for itching, poor wound healing and rash. Musculoskeletal: Negative for back pain and falls. Gastrointestinal: Positive for heartburn (worse at bedtime). Negative for bloating, abdominal pain,diarrhea, hematemesis, melena, nausea and vomiting. Genitourinary: Negative for dysuria, flank pain, frequency and hematuria. Neurological: Negative for dizziness, focal weakness, headaches, light- headedness, loss of balance,numbness, paresthesias, vertigo and weakness. Psychiatric/Behavioral: Negative for altered mental status. PHYSICAL EXAM General appearance: Patient appears well kept and nondistressed Blood pressure (!) 120/56, pulse 70, height 5' 3, weight 52.2 kg (115 lb), SpO2 99 %. Wt Readings from Last 3 Encounters: 04/28/21 52.2 kg (115 lb) 04/18/21 51.6 kg (113 lb 12.1 oz) 04/17/21 49.9 kg (110 lb) Body mass index is 20.37 kg/m . Physical Exam Vitals and nursing note reviewed. Constitutional: General: She is not in acute distress. Appearance: Normal appearance. She is not ill-appearing. HENT: Head: Normocephalic and atraumatic. Right Ear: External ear normal. Left Ear: External ear normal. Nose: Nose normal. Mouth/Throat: Mouth: Mucous membranes are moist. Eyes: General: No scleral icterus. Cardiovascular: Rate and Rhythm: Normal rate and regular rhythm. Pulses: Normal pulses. Heart sounds: Normal heart sounds. Pulmonary: Effort: Pulmonary effort is normal. Breath sounds: Normal breath sounds. Abdominal: Palpations: Abdomen is soft. Tenderness: There is no abdominal tenderness. Musculoskeletal: General: Normal range of motion. Cervical back: Neck supple. Right lower leg: No edema. Left lower leg: No edema. Skin: General: Skin is warm and dry. Capillary Refill: Capillary refill takes less than 2 seconds. Neurological: General: No focal deficit present. Mental Status: She is alert and oriented to person, place, and time. Mental status is at baseline. Psychiatric: Mood and Affect: Mood normal. Behavior: Behavior normal. Thought Content: Thought content normal. Judgment: Judgment normal. Love Ferraro CNP documented in this [id number] Miscellaneous Notes* Ronal Note - Myra Ocampo RN - 04/21/2021 1:20 PM EDT Pt given work release. Pt taken down to main lobby by [facility]. took items home with the pt. * Ronal Pozo - Myra Ocampo RN - 04/21/2021 12:30 PM EDT Reviewed discharge instructions with the pt. Pt is waiting on to get her. Paperwork given to the pt. * Hospital Course - Alivia Castellanos MD - 04/21/2021 12:19 PM EDT This is a 75-year-old female patient who came to the emergency room with complaint of chest pain. Patient has history of CAD with history of stent placement 6 years ago. Pain happened when she was atwork and patient left with some heavy weight when she started having crushing pain in the sternal area. That pain happened and 3 episodes [id number]. Patient felt hot during the pain. Patient denies radiation of the pain and denies nausea and vomiting. Patient has history of coronary artery disease she had stents placed in 2014. Patient had a normal stress test a year ago. Patient reported to me history of atrial fibrillation. I do not see that in her history in our system and her EKG today is normal sinus rhythm. Patient also describes episode of speech difficulties. Patient states that she gets episodes when she cannot get the words out. Patient said that those episodes happened to her on a weekly basis. Last episode happened last week. Patient denies any other neurological symptoms. Principal Problem: Chest pain TIA Bilateral carotid stenosis moderate PLAN: Stable this morning Headache last night resolved No neuro deficit Speech fluent Denies chest pain MRI completed was negative for acute CVA Status post left heart cath 04/19 Did undergo mid LAD intervention w/ LAYNE x 2 and Ostial D2 with POBAonly. Currently on aspirin/ brilinta Lipitor metoprolol 25 twice daily Results of her carotid Doppler noted with bilateral moderate 50 to 69% occlusion She is asymptomatic with no history of CVA Continue secondary prevention aspirin and statin. Dc home today * Plan of Care - Myra Ocampo RN - 04/21/2021 10:29 AM EDT Pt will be discharged home today . Problem: Actual or potential alteration in health Goal: Absence of healthcare acquired conditions Outcome: Completed Goal: Knowledge of Interdisciplinary Plan of Care Outcome: Completed Goal: Knowledge of Enviroment Outcome: Completed Problem: Pain Goal: Manage acute pain Outcome: Completed Goal: Manage chronic pain Outcome: Completed Goal: Reduced pain sensation Outcome: Completed Goal: Achievement of comfort function goal Outcome: Completed Problem: Bleeding, Risk of Goal: Absence of impaired coagulation signs and symptoms Outcome: Completed Problem: Pressure Ulcer - Risk of Goal: Absence of pressure ulcer Outcome: Completed * Plan of Care - Iqra Blunt RN - 04/21/2021 6:15 AM EDT Problem: Actual or potential alteration in health Goal: Absence of healthcare acquired conditions Outcome: Partially Met Goal: Knowledge of Interdisciplinary Plan of Care Outcome: Partially Met Goal: Knowledge of Enviroment Outcome: Partially Met Problem: Pain Goal: Manage acute pain Outcome: Partially Met Goal: Manage chronic pain Outcome: Partially Met Goal: Reduced pain sensation Outcome: Partially Met Goal: Achievement of comfort function goal Outcome: Partially Met Problem: Bleeding, Risk of Goal: Absence of impaired coagulation signs and symptoms Outcome: Partially Met Problem: Pressure Ulcer - Risk of Goal: Absence of pressure ulcer Outcome: Partially Met POC reviewed. * Sign Off Note - Marietta Beltran CNP - 04/20/2021 2:19 PM EDT Cardiology Progress Note [facility] Cardiology Sign-Off Discharge Medications: Aspirin EC 81 mg daily; Brilinta 90 mg twice daily; atorvastatin 40 mg daily; hydrochlorothiazide 25 mg daily; lisinopril 20 mg daily with lunch; metoprolol tartrate 25 mg twice daily; nitroglycerin 0.4 mg sublingual as needed for chest pain; and other noncardiac medications. Follow-up Imaging, Testing: No additional outpatient testing is recommended at this time. Follow-up Appointments: Please see AVS for appointment details Additional Instructions Reviewed with Patient and/or Family: Compliance with follow-up. Compliance with medications. Return to Work:Off work for 2 weeks. Please see post PCI discharge instruction sheet. Assessment/Plan: * Chest pain Assessment & Plan I think her episode may been more related to the work that she was doing, possibly some heat component. Her enzymes are negative EKG appears nonacute. However she does report a several month history of angina symptoms that is concerning overall. With her known disease I think angiographic assessment should be updated and I reviewed that with her. We will check her lipid panel, advance her statin as needed, start her on metoprolol tartrate 25 twice a day. Carotid duplex study will be completed neurology consult has been ordered. Continue aspirin therapy. Further recommendations pending her diagnostic findings. Update 04/20/2021: [facility] 04/19/2021 showed Two-vessel obstructive CAD. Subsequently underwent successful catheter-based intervention with LAYNE x2 to mid LAD, additionally received POBA to ostial D2, achieving residual stenosis of 0% and SHU-3 flow post procedure. Echocardiogram 04/20/2021 showed normal LV size and normal systolic function. No regional wall motion abnormalities. Estimated EF 60 to 65%. Normal RV size and systolic function. Moderately enlarged left atrial chamber. Mild aortic valve regurgitation. No pulmonary hypertension, estimated RVSP 27 mmHg. Post PCI discharge instructions reviewed with patient including the importance of DAPT compliance. Nitroglycerin sublingual instructions provided to patient. This FERRY HAND discussed Cardiac Rehabilitation with the patient. Subjects covered during this discussion included: The importance and benefits of Cardiac Rehab and exercise upon discharge from the hospital Instructed that a member of the Cardiac Rehab team will contact them to schedule these appointmentsafter discharge Were provided a list of locations to choose for this follow up. Cardiac Rehab will occur at to be determined Cardiac Rehab referral placed? YES LOS: 1 day Subjective: Ms. Akbar denies chest pain, dyspnea, palpitations, peripheral swelling or dizziness. Objective: Vital signs in last 24 hours: Temp: [97.8 F (36.6 C)-99.1 F (37.3 C)] 98.4 F (36.9 C) Heart Rate: [62-95] 64 Resp: [8-26] 14 BP: (106-157)/(30-67) 157/63 Physical Exam: Alert, no acute distress JVP is not elevated Heart is regular rate and rhythm. No gallop or rub. No murmur Lungs are clear to ausculation bilaterally. Nonlabored respirations. Abdomen has no hepatomegally Lower extremeties have no edema. Right radial access site with dressing in place, ecchymosis is noted, no neurovascular compromise noted. Lab Review Today's available lab reviewed. * Plan of Care - Iqra Blunt RN - 04/20/2021 6:12 AM EDT Problem: Actual or potential alteration in health Goal: Absence of healthcare acquired conditions Outcome: Partially Met Goal: Knowledge of Interdisciplinary Plan of Care Outcome: Partially Met Goal: Knowledge of Enviroment Outcome: Partially Met Problem: Pain Goal: Manage acute pain Outcome: Partially Met Goal: Manage chronic pain Outcome: Partially Met Goal: Reduced pain sensation Outcome: Partially Met Goal: Achievement of comfort function goal Outcome: Partially Met Problem: Bleeding, Risk of Goal: Absence of impaired coagulation signs and symptoms Outcome: Partially Met Problem: Pressure Ulcer - Risk of Goal: Absence of pressure ulcer Outcome: Partially Met POC reviewed. * Plan of Care - Singh Starr RN - 04/19/2021 8:54 PM EDT Problem: Actual or potential alteration in health Goal: Absence of healthcare acquired conditions Outcome: Met Goal: Knowledge of Interdisciplinary Plan of Care Outcome: Met Goal: Knowledge of Enviroment Outcome: Met Problem: Pain Goal: Manage acute pain Outcome: Met Goal: Manage chronic pain Outcome: Met Goal: Reduced pain sensation Outcome: Met Goal: Achievement of comfort function goal Outcome: Met Problem: Bleeding, Risk of Goal: Absence of impaired coagulation signs and symptoms Outcome: Met * Quick Note - Love Ferraro CNP - 04/19/2021 4:08 PM EDT Post cath patient hypotensive with some anterior chest discomfort. EKG nonacute. Dr. Tian at bedside to assess patient. IVF NS 250ml bolus given with improvement in blood pressure. No longer has chest discomfort. Does have some complaints of fullness behind my ears since I got the COVID vaccination. TR band in place. No neurovascular compromise. Did undergo mid LAD intervention w/ LAYNE x 2 and Ostial D2 with POBA only. * Quick Note - Og Blancas MD - 04/19/2021 10:53 AM EDT MRI Brain images reviewed. Except for some ischemic foci in the subcortical areas and a few lacunesof old infarct, there are no significant pathology of any concern at this time. These ischemic spots are likely related to her poorly controlled blood pressure (systolic 170s). No acute strokes, bleeds, elemental deposits or focal cortical atrophy. Otherwise, the study is unremarkable. Ok to go for cath. I would expect her to be on antiplatelets as deemed appropriate by cardiology. That would suffice from neuro standpoint. No new neuro recommendations. OG BLANCAS MSc, . * Assessment & Plan Note - Marietta Beltran CNP - 04/18/2021 7:41 AM EDT Associated Problem(s): Chest pain I think her episode may been more related to the work that she was doing, possibly some heat component. Her enzymes are negative EKG appears nonacute. However she does report a several month history of angina symptoms that is concerning overall. With her known disease I think angiographic assessment should be updated and I reviewed that with her. We will check her lipid panel, advance her statin as needed, start her on metoprolol tartrate 25 twice a day. Carotid duplex study will be completed neurology consult has been ordered. Continue aspirin therapy. Further recommendations pending her diagnostic findings. Update 04/20/2021: [facility] 04/19/2021 showed Two-vessel obstructive CAD. Subsequently underwent successful catheter-based intervention with LAYNE x2 to mid LAD, additionally received POBA to ostial D2, achieving residual stenosis of 0% and SHU-3 flow post procedure. Echocardiogram 04/20/2021 showed normal LV size and normal systolic function. No regional wall motion abnormalities. Estimated EF 60 to 65%. Normal RV size and systolic function. Moderately enlarged left atrial chamber. Mild aortic valve regurgitation. No pulmonary hypertension, estimated RVSP 27 mmHg. Post PCI discharge instructions reviewed with patient including the importance of DAPT compliance. Nitroglycerin sublingual instructions provided to patient. This FERRY HAND discussed Cardiac Rehabilitation with the patient. Subjects covered during this discussion included: The importance and benefits of Cardiac Rehab and exercise upon discharge from the hospital Instructed that a member of the Cardiac Rehab team will contact them to schedule these appointmentsafter discharge Were provided a list of locations to choose for this follow up. Cardiac Rehab will occur at to be determined Cardiac Rehab referral placed? YES documented in this [id number] Hospital course Narrative* Alivia Castellanos MD - 04/21/2021 12:20 PM EDT HOSPITALIST DISCHARGE SUMMARY Patient: Bharti Akbar Account: [id number] Admitted: 04/17/2021 Discharge Date/Time: 04/21/2021 Clinical Summary FINAL DIAGNOSIS: Principal Problem: Chest pain REASON FOR HOSPITALIZATION AND ADMITTING DIAGNOSIS: No chief complaint on file. Chest pain [R07.9] HOSPITAL COURSE: This is a 75-year-old female patient who came to the emergency room with complaint of chest pain. Patient has history of CAD with history of stent placement 6 years ago. Pain happened when she was atwork and patient left with some heavy weight when she started having crushing pain in the sternal area. That pain happened and 3 episodes [id number]. Patient felt hot during the pain. Patient denies radiation of the pain and denies nausea and vomiting. Patient has history of coronary artery disease she had stents placed in 2014. Patient had a normal stress test a year ago. Patient reported to me history of atrial fibrillation. I do not see that in her history in our system and her EKG today is normal sinus rhythm. Patient also describes episode of speech difficulties. Patient states that she gets episodes when she cannot get the words out. Patient said that those episodes happened to her on a weekly basis. Last episode happened last week. Patient denies any other neurological symptoms. Principal Problem: Chest pain TIA Bilateral carotid stenosis moderate PLAN: Stable this morning Headache last night resolved No neuro deficit Speech fluent Denies chest pain MRI completed was negative for acute CVA Status post left heart cath 04/19 Did undergo mid LAD intervention w/ LAYNE x 2 and Ostial D2 with POBAonly. Currently on aspirin/ brilinta Lipitor metoprolol 25 twice daily Results of her carotid Doppler noted with bilateral moderate 50 to 69% occlusion She is asymptomatic with no history of CVA Continue secondary prevention aspirin and statin. Dc home today CONDITION AT DISCHARGE: Stable Physical Examination: Blood pressure 140/61, pulse 74, temperature 97.6 F (36.4 C), temperature source Oral, resp. rate 18, height 5' 3, weight 51.6 kg (113 lb 12.1 oz), SpO2 96 %. General appearance: alert, cooperative, in no acute distress. Head/Neck: Head- normocephalic. Neck- supple, non-tender, without lymphadenopathy Eyes: No Scleral icterus or pallor; EOMI ENT: Trachea midline. Cardiovascular: regular rate and rhythm; normal S1, S2; no murmurs, rubs, clicks or gallops; No/+ peripheral edema. Respiratory: lungs clear to auscultation; without wheezes, rales or rhonchi. Abdomen: soft, non tender, non-distended; positive bowel sounds. Neurological: alert, oriented, normal speech; no focal findings or movement disorder noted. Musculoskeletal: no significant deformity noted. Skin: normal coloration, texture and turgor; no lesions or eruptions. Procedures: No orders of the defined types were placed in this encounter. Consults: Procedures Inpatient consult to Neurology Inpatient consult to Cardiology Inpatient consult to Cardiac Rehab Other Tests: Procedures Echocardiogram complete Cardiac Catheterization LAST LABS: Results from last 7 days Lab Units 04/20/21 1714 04/20/21 0508 SODIUM mmol/L -- 138 POTASSIUM mmol/L 4.7 3.3* CHLORIDE mmol/L -- 105 BUN mg/dL -- 20 CREATININE mg/dL -- 1.14 GLUCOSE mg/dL -- 103* CALCIUM mg/dL -- 8.7 Invalid input(s): LABALBU Results from last 7 days Lab Units 04/17/21 1425 WBC K/mcL 11.49* HGB g/dL 13.3 HCT % 36.9 PLT K/mcL 233 Allergies: Acetaminophen and Codeine Discharge Diet: Diet Regular; Regular Oral nutrition supplements Gelatein 20 Sugar Free; Gelatein 20 Sugar Free Fruit Punch At lunch and dinner Oral nutrition supplements Boost Breeze; Boost Breeze [place] At breakfast and lunch Disposition: Short Term Hospital Discharge Medications Medication List START taking these medications metoprolol tartrate 25 MG tablet Commonly known as: LOPRESSOR Take 1 (one) tablet (25 mg total) by mouth 2 (two) times a day . ticagrelor 90 mg Tab tablet Commonly known as: BriLINTA Take 1 (one) tablet (90 mg total) by mouth 2 (two) times a day . CHANGE how you take these medications atorvastatin 40 MG tablet Commonly known as: LIPITOR Take 1 (one) tablet (40 mg total) by mouth daily . What changed: medication strength how much to take lisinopriL 20 MG tablet Commonly known as: PRINIVIL,ZESTRIL Take 1 (one) tablet (20 mg total) by mouth daily with lunch . What changed: medication strength how much to take when to take this potassium chloride SA 20 MEQ tablet Commonly known as: K-DUR,KLOR-CON Take 1 (one) tablet (20 mEq total) by mouth daily . What changed: when to take this CONTINUE taking these medications aspirin 81 MG EC tablet hydroCHLOROthiazide 25 MG tablet Commonly known as: HYDRODIURIL levothyroxine 100 MCG tablet Commonly known as: SYNTHROID, LEVOTHROID meloxicam 7.5 MG tablet Commonly known as: MOBIC multivitamin per tablet Generic drug: multivitamin tiZANidine 4 MG capsule Commonly known as: ZANAFLEX traMADoL 50 mg tablet Commonly known as: ULTRAM traZODone 50 MG tablet Commonly known as: DESYREL STOP taking these medications predniSONE 10 mg tablet pack Commonly known as: DELTASONE Where to Get Your Medications These medications were sent to [facility] [address] [place] [address] atorvastatin 40 MG tablet lisinopriL 20 MG tablet metoprolol tartrate 25 MG tablet potassium chloride SA 20 MEQ tablet ticagrelor 90 mg Tab tablet Physician(s) Family: Physician No, Phone: None, Address: [facility] Follow Up: No follow-up provider specified. Patient instructions, including activity, were given to the patient/family at discharge. Please seethe After Visit Summary in the medical record for details. Time spent on discharge: > 30 minutes Completed by: Alivia Castellanos on 04/21/21, 12:20 PM documented in this [id number] History of Present illness Narrative* Gemma Valles RD - 04/20/2021 2:03 PM EDT Nutrition Care Initial Assessment Reason for visit: Dietitian Screen d/t BMI of 20 Nutrition Diagnosis: Unintended weight loss related to poor energy intake as evidenced by 10# weight loss X 3 months per patient report. Nutrition Intervention/Prescription: Initiate Medical Food Supplement Diet: Regular Diet Oral nutrition supplement: Gelatein BID, Boost Breeze BID Tube Feeding: n/a Nutrition Goals: PO intake > 75% most meals Start Date:04/20/2021 Expected End Date:04/24/2021 Nutrition Education: encouraged PO. Reviewed ONS and high calorie foods to incorporate at home Assessment: Pertinent clinical information: Presents with Chest Pain. S/P LHC and LAYNE X2. Past Medical History: Diagnosis Date Arthritis Coronary artery disease Disease of thyroid gland Hyperlipidemia Hypertension Height: 5' 3 Current weight: 51.6 kg (113 lb 12.1 oz) BMI Body mass index is 20.15 kg/m . Weight hx: per pt, 10# weight loss X 3 months. Wt Readings from Last 5 Encounters: 04/18/21 51.6 kg (113 lb 12.1 oz) 04/17/21 49.9 kg (110 lb) Current diet order: Regular Current EN order: n/a Current supplements: none Recent intake: 25%-50%. Current intake Likely does not meet estimated needs. Patient/family comments: Spoke with patient at bedside. Per patient, poor appetite for quite sometime 2/2 early satiety. Reporting an intolerance to milk based foods so typically avoids these. Agreeable to boost breeze and gelatein. She is currently eating lunch, has consumed ~25%-50% thus far. Reports she currently feels hungry. Reports she ate jello for breakfast as she was not hungry at this meal. Difficulty Chewing/Swallowing: No Skin Integrity: Intact GI Function: WNL Physical Appearance: Moderate-severe muscle mass loss identified in temples, clavicles. Labs: Recent Labs 04/20/21 0508 04/20/21 1046 NA 138 -- K 3.3* 3.3* BICARB 30 -- CL 105 -- GLUCOSE 103* -- BUN 20 -- CREATININE 1.14 -- Scheduled Meds: aspirin 81 mg Oral Daily atorvastatin 40 mg Oral Daily hydroCHLOROthiazide 25 mg Oral Daily levothyroxine 100 mcg Oral Daily lisinopriL 20 mg Oral Daily with lunch metoprolol tartrate 25 mg Oral BID [START ON 04/21/2021] potassium chloride SA 20 mEq Oral BID sodium chloride (PF) 5 mL Intravenous Q8H TRINITY ticagrelor 90 mg Oral BID tiZANidine 4 mg Oral Nightly Continuous Infusions: sodium chloride 0.9 % Estimated Energy Needs Total Energy Estimated Needs: 2515-6574 Method for Estimating Needs: 30 kcal/kg Total Protein Estimated Needs: 61 Method for Estimating Needs: 1.2 gm/kg RODY Gonzalez, PRINCESSN, LD Cell Office * Alivia Castellanos MD - 04/20/2021 1:13 PM EDT [facility] Medicine Inpatient Follow-up 04/20/2021 Alivia Castellanos MD [facility] Patient: Bharti Akbar Date of : 1945 (75 y.o.) PCP: Physician No ASSESSMENT/PLAN: Bharti Akbar 75 y.o. female presented with complains of chest pain Principal Problem: Chest pain TIA Bilateral carotid stenosis moderate PLAN: Stable this morning Headache last night resolved No neuro deficit Speech fluent Denies chest pain MRI completed this morning was negative for acute CVA Status post left heart cath 04/19 Did undergo mid LAD intervention w/ LAYNE x 2 and Ostial D2 with POBAonly. Currently on aspirin Lipitor metoprolol 25 twice daily Results of her carotid Doppler noted with bilateral moderate 50 to 69% occlusion She is asymptomatic with no history of CVA Continue secondary prevention aspirin and statin. SUBJECTIVE: Chest pain resolved, denies dizziness or blurry vision All other systems reviewed and negative other than noted above. OBJECTIVE: Physical Examination: BP (!) 147/56 Pulse 62 Temp 97.8 F (36.6 C) (Oral) Resp 12 Ht 5' 3 Wt 51.6 kg (113 lb 12.1 oz) SpO2 99% BMI 20.15 kg/m General Appearance: Alert, well appearing, and in no acute distress. HEENT: Head - Normocephalic, atraumatic. Eyes - RAFAEL bilaterally and EOMI. Ears - normal external appearance, hearing intact. Nose - normal, no erythema. Throat - mucous membranes moist, pharynx without lesions. Neck: Supple, trachea midline. Cardiovascular: S1, S2 normal. No murmurs, rubs, clicks or gallops appreciated. No pedal edema. Respiratory: Lungs clear to auscultation, no wheezes, rales or rhonchi heard. Abdomen: Soft, non-tender, normal bowel sounds, non-distended, no masses or organomegaly appreciated. Neurological: Grossly normal motor and sensory exam. No focal deficits. Musculoskeletal: No joint tenderness, deformity or swelling. Skin: Normal coloration and turgor. No rashes. Psych: Alert, oriented x 3. Normal mood and affect. CURRENT MEDICATIONS: aspirin 81 mg Oral Daily atorvastatin 40 mg Oral Daily hydroCHLOROthiazide 25 mg Oral Daily levothyroxine 100 mcg Oral Daily lisinopriL 20 mg Oral Daily with lunch metoprolol tartrate 25 mg Oral BID [START ON 04/21/2021] potassium chloride SA 20 mEq Oral BID sodium chloride (PF) 5 mL Intravenous Q8H TRINITY ticagrelor 90 mg Oral BID tiZANidine 4 mg Oral Nightly Results/Medications Reviewed 04/20/21 1:13 PM: Results from last 7 days Lab Units 04/20/21 1046 04/20/21 0508 04/19/21 0533 04/17/21 1432 SODIUM mmol/L -- 138 141 -- POTASSIUM mmol/L 3.3* 3.3* 3.8 -- CHLORIDE mmol/L -- 105 104 -- BUN mg/dL -- -- POC BUN mg/dL -- -- -- 22 CREATININE mg/dL -- 1.14 0.78 -- POC CREATININE (EPOC) mg/dL -- -- -- 0.98 GLUCOSE mg/dL -- 103* 94 -- CALCIUM mg/dL -- 8.7 8.3* -- Results from last 7 days Lab Units 04/17/21 1425 WBC K/mcL 11.49* HGB g/dL 13.3 HCT % 36.9 PLT K/mcL 233 Results from last 7 days Lab Units 04/18/21 0331 04/18/21 0036 TROPONIN I ng/L <15 <15 Invalid input(s): LABALBU CULTURES: Reviewed 1:13 PM IMAGING: Reviewed 1:13 PM * Alivia Castellanos MD - 04/19/2021 1:38 PM EDT [facility] Medicine Inpatient Follow-up 04/19/2021 Alivia Castellanos MD [facility] Patient: Bharti Akbar Date of : 1945 (75 y.o.) PCP: Physician No ASSESSMENT/PLAN: Bharti Akbar 75 y.o. female presented with complains of chest pain Principal Problem: Chest pain TIA PLAN: Stable this morning No issues overnight No neuro deficit Speech fluent Denies chest pain MRI completed this morning was negative for acute CVA Plan for left heart cath this afternoon Currently on aspirin Lipitor metoprolol 25 twice daily SUBJECTIVE: Chest pain resolved, denies dizziness or blurry vision All other systems reviewed and negative other than noted above. OBJECTIVE: Physical Examination: BP (!) 176/71 Pulse (!) 59 Temp 97.5 F (36.4 C) (Oral) Resp 18 Ht 5' 3 Wt 51.6 kg (113 lb 12.1 oz) SpO2 98% BMI 20.15 kg/m General Appearance: Alert, well appearing, and in no acute distress. HEENT: Head - Normocephalic, atraumatic. Eyes - RAFAEL bilaterally and EOMI. Ears - normal external appearance, hearing intact. Nose - normal, no erythema. Throat - mucous membranes moist, pharynx without lesions. Neck: Supple, trachea midline. Cardiovascular: S1, S2 normal. No murmurs, rubs, clicks or gallops appreciated. No pedal edema. Respiratory: Lungs clear to auscultation, no wheezes, rales or rhonchi heard. Abdomen: Soft, non-tender, normal bowel sounds, non-distended, no masses or organomegaly appreciated. Neurological: Grossly normal motor and sensory exam. No focal deficits. Musculoskeletal: No joint tenderness, deformity or swelling. Skin: Normal coloration and turgor. No rashes. Psych: Alert, oriented x 3. Normal mood and affect. CURRENT MEDICATIONS: aspirin 81 mg Oral Daily atorvastatin 20 mg Oral Daily hydroCHLOROthiazide 25 mg Oral Daily levothyroxine 100 mcg Oral Daily lisinopriL 20 mg Oral Daily with lunch metoprolol tartrate 25 mg Oral BID potassium chloride SA 20 mEq Oral Daily sodium chloride (PF) 5 mL Intravenous Q8H TRINITY tiZANidine 4 mg Oral Nightly Results/Medications Reviewed 04/19/21 1:38 PM: Results from last 7 days Lab Units 04/19/21 0533 04/17/21 1432 SODIUM mmol/L 141 -- POTASSIUM mmol/L 3.8 -- CHLORIDE mmol/L 104 -- BUN mg/dL 21 -- POC BUN mg/dL -- 22 CREATININE mg/dL 0.78 -- POC CREATININE (EPOC) mg/dL -- 0.98 GLUCOSE mg/dL 94 -- CALCIUM mg/dL 8.3* -- Results from last 7 days Lab Units 04/17/21 1425 WBC K/mcL 11.49* HGB g/dL 13.3 HCT % 36.9 PLT K/mcL 233 Results from last 7 days Lab Units 04/18/21 0331 04/18/21 0036 TROPONIN I ng/L <15 <15 Invalid input(s): LABALBU CULTURES: Reviewed 1:38 PM IMAGING: Reviewed 1:38 PM documented in this [id number] Hospital Discharge instructions * Instructions* 04/20/[address] [facility] Post Cardiac Catheterization Discharge Instructions Site Care Leave Bandage in place the night of your catheterization. Watch for any bleeding or oozing from thesite. If this occurs, lie flat and place direct pressure on the bandage for 20 minutes. If bleedingreoccurs call [facility]. For groins, remove your bandage the following morning and apply a Band-Aid over the site, so it hasa complete seal over the area. This is to dorothy done for 5 days with a new Band-Aid each time. Soreness and bruising are to expected. For wrist and arms, remove your bandage the following morning and apply a Band- Aid over the site, so it has a complete seal over the area. This is to be done for 5 days with a new Band-Aid each time.Soreness and bruising are to be expected. Do not submerge catheterization site in water for 5 to 7 days following the procedure. Examples include bathing, swimming, sitting in a Jacuzzi or dishwashing. You may shower 24 hours after the procedure. Call [facility] at [phone] if you notice any of the following: Bleeding or increased swelling at the puncture site Redness Drainage (either pus or blood) Increased soreness around the wound A fever over 100 F Numbness, coldness, color change, or tingling pain in your arm or leg below the wound Light headedness, dizziness, weakness of arms or legs, or difficulty with speech Chest pain, pressure, tightness or burning in the chest, arm jaw or stomach Activity Limit your activity following the catheterization as follows: No lifting over 10 pounds for 2 days if done by groin No lifting over 5 pounds for 7 days if done by wrist. Do not manipulate the wrist for 24 hours No running, jogging, climbing (more than a few stairs) for 7 days No driving or operating heavy machinery for a minimum of 48 hours Do Not Smoke or use tobacco products for 24 hours after the procedure Discuss any other activity concerns with the nurse or physician Medications Continue taking all the current medications as directed on medication reconciliation record or unless otherwise instructed to by your physician. If you do not have prescription coverage and are in need of prescription assistance, please notify the [facility] nurse or call the office. If you were prescribed Plavix (clopidogrel), Effient (prasugrel), or Brilinta (ticagrelar) after your procedure, DO NOT STOP taking this medication unless told to do so by your [facility] stunt person. Follow up appointments, tests or procedures will be on your discharge paperwork under What's next. Please call [facility] at [phone] to reschedule any appointments if needed or if you have any questions or concerns. Thank you! Brilinta samples and savings card provided for patient documented in this [id number] History of Present illness Narrative* Brooklynn Newell RN - 04/20/2021 11:55 AM EDT Educated pt on Phase II Cardiac Rehab. Educational information given to pt and pt understands verbally. Pt lives in [place] and prefers to do her rehab in [place]. Referral faxed to [place]. documented in this [id number] NoteCardiac Catheterization Procedure Report Date of Service: 04/19/21 Principal Privacy Compliance Manager and Supervising Physician: Antonio Tian MD Procedures Performed: ? Selective left and right coronary angiography ? Supervision and interpretation of angiographic findings ? Left heart catheterization ? Percutaneous coronary intervention of LAD ? Percutaneous coronary Intervention of D1 ? Instantaneous wave-free ratio of LAD Indication for Procedure: Bharti Akbar is a 75 y.o. female with a history of coronary artery disease s/p percutaneous coronary intervention poorly controlled hypertension presented to the hospital with unstable angina. Patient was then brought for urgent cardiac catheterization study. Medications: ? Fentanyl ? Versed ? Nitroglycerin 300mcg ? Verapamil 2.5mg ? Heparin 5500units ? 1% Lidocaine for local infiltration 2cc Description of Procedure: Informed consent was obtained and the patient was brought to the cardiac catheterization laboratory where the right radial was cleaned, prepped, and draped in the usual sterile fashion and infiltrated with 2 cc of 1% lidocaine for local anesthesia. A 6F slender Terumo sheath was introduced in the right radial artery using the true Seldinger technique. A 5F TIG4.0 catheter was used to selectively engage the right coronary artery. Selective right coronary angiography was performed in the usual views. A 5F TIG4.0 catheter was used to selectively engage the left coronary artery. Selective left coronary angiography was performed in the usual views. A 5F TIG catheter was used to cross AV into LV to record LVEDP and AV gradients. The sheath was flushed between catheter exchanges. After reviewing the angiograms, we decided to proceed with further evaluation of LAD disease. Therefore, under the cover of heparin as the procedural anticoagulant, a 6 E[place] XB LAD 3.5 guide catheter was used to engage the left coronary artery. A [employer] Omni pressure wire was then advanced into the LAD vessel and across the lesion. iFR was recorded in a standard fashion was found to 0.86 which is significant. We therefore decided proceed with coronary intervention of mid LAD lesion. A run-through coronary guidewire was advanced into the D2 vessel for sidebranch protection. A 2.5 balloon was advanced to the site of the lesion and inflation made at 10 myra, and then removed. A 2.75 x 12 Synergy drug-eluting stent was advanced to the site of the lesion and deployed at 12 myra. The stent-delivery system was re-inflated at 14 myra and removed. A 2.75 x 8 Synergy drug-eluting stent was advanced proximal to the first stent and deployed at 12 myra. The stent-delivery system was re-inflated at 14 myra and removed. A 2.5 NC balloon was advanced to the site of the ostial diagonal 2 lesion and inflation made at 8 myra, and then removed. Angiography did not reveal evidence of dissection or perforation. The guidewire was removed and final angiography revealed an adequate result. A limited right femoral arteriography was done to locate the position of femoral artery sheath entry point in anticipation of closure device deployment. We confirmed the entry to point to be above the femoral bifurcation and below the inferior border of the inferior epigastric artery without evidence of significant disease. After any catheters and wires were removed, the arterial sheath was removed for a TR band using the standard technique to achieve adequate hemostasis. Hemodynamic Findings: Left Heart: ? Aortic Opening Pressure: 212/70 mmHg ? Aortic Closing Pressure: 180/75 mmHg ? LV Pressure: 140 mmHg, LV end diastolic pressure 14 mmHg ? Systolic LV pressure in LV prior to pullback: 140 mmHg ? Systolic pressure in aorta after pullback: 140 mmHg, pullback gradient not significant Coronary Angiographic Findings: ? Dominance: left ? Left Main: 4.5 mm vessel, gives rise to the LAD and LCX Arteries, there was no stenosis. There was SHU 3 flow. ? Left Anterior Descending Artery: The LAD measures 3.5 mm proximally and tapers to a 2.5 mm vessel distally. There is SHU 3 flow in the body of the LAD. The LAD gives rise to 2 diagonal vessels. The mid LAD has focal discrete 70% stenosis proximal to the old stent. D2 vessel has ostial 70% stenosis. The IFR across the mid LAD lesion was 0.86 which is significant. ? Left Circumflex Artery: The LCX measures 3.0 mm proximally and tapers to small vessel coursing along the AV groove. The LCX gives rise to 2 obtuse marginal branches. The LCX is free of significant disease. ? Right Coronary Artery: RCA is a small nondominant vessel and measures 2.25 mm proximally and tapers to a 1.5 mm vessel distally. The RCA is free of significant disease. Pressure wire findings: Vessel iFR FFR Comments LM LAD 0.86 Mid LAD LCX RCA Percutaneous Coronary Intervention: Lesion #1: Mid LAD with LAYNE x 2 ? Pre: length 20 mm, stenosis 70%, (more content not included)...[facility]08-09-2021 NoteCardiac Catheterization Procedure Report Date of Service: 04/19/21 Principal Privacy Compliance Manager and Supervising Physician: Antonio Tian MD Procedures Performed: Selective left and right coronary angiography Supervision and interpretation of angiographic findings Left heart catheterization Percutaneous coronary intervention of LAD Percutaneous coronary Intervention of D1 Instantaneous wave-free ratio of LAD Indication for Procedure: Bharti Akbar is a 75 y.o. female with a history of coronary artery disease s/p percutaneous coronary intervention poorly controlled hypertension presented to the hospital with unstable angina. Patient was then brought for urgent cardiac catheterization study. Medications: Fentanyl Versed Nitroglycerin 300mcg Verapamil 2.5mg Heparin 5500units 1% Lidocaine for local infiltration 2cc Description of Procedure: Informed consent was obtained and the patient was brought to the cardiac catheterization laboratory where the right radial was cleaned, prepped, and draped in the usual sterile fashion and infiltrated with 2 cc of 1% lidocaine for local anesthesia. A 6F slender Terumo sheath was introduced in the right radial artery using the true Seldinger technique. A 5F TIG4.0 catheter was used to selectively engage the right coronary artery. Selective right coronary angiography was performed in the usual views. A 5F TIG4.0 catheter was used to selectively engage the left coronary artery. Selective left coronary angiography was performed in the usual views. A 5F TIG catheter was used to cross AV into LV to record LVEDP and AV gradients. The sheath was flushed between catheter exchanges. After reviewing the angiograms, we decided to proceed with further evaluation of LAD disease. Therefore, under the cover of heparin as the procedural anticoagulant, a 6 E[place]an XB LAD 3.5 guide catheter was used to engage the left coronary artery. A [employer] Omni pressure wire was then advanced into the LAD vessel and across the lesion. iFR was recorded in a standard fashion was found to 0.86 which is significant. We therefore decided proceed with coronary intervention of mid LAD lesion. A run-through coronary guidewire was advanced into the D2 vessel for sidebranch protection. A 2.5 balloon was advanced to the site of the lesion and inflation made at 10 myra, and then removed. A 2.75 x 12 Synergy drug-eluting stent was advanced to the site of the lesion and deployed at 12 myra. The stent-delivery system was re-inflated at 14 myra and removed. A 2.75 x 8 Synergy drug-eluting stent was advanced proximal to the first stent and deployed at 12 myra. The stent-delivery system was re-inflated at 14 myra and removed. A 2.5 NC balloon was advanced to the site of the ostial diagonal 2 lesion and inflation made at 8 myra, and then removed. Angiography did not reveal evidence of dissection or perforation. The guidewire was removed and final angiography revealed an adequate result. A limited right femoral arteriography was done to locate the position of femoral artery sheath entry point in anticipation of closure device deployment. We confirmed the entry to point to be above the femoral bifurcation and below the inferior border of the inferior epigastric artery without evidence of significant disease. After any catheters and wires were removed, the arterial sheath was removed for a TR band using the standard technique to achieve adequate hemostasis. Hemodynamic Findings: Left Heart: Aortic Opening Pressure: 212/70 mmHg Aortic Closing Pressure: 180/75 mmHg LV Pressure: 140 mmHg, LV end diastolic pressure 14 mmHg Systolic LV pressure in LV prior to pullback: 140 mmHg Systolic pressure in aorta after pullback: 140 mmHg, pullback gradient not significant Coronary Angiographic Findings: Dominance: left Left Main: 4.5 mm vessel, gives rise to the LAD and LCX Arteries, there was no stenosis. There was SHU 3 flow. Left Anterior Descending Artery: The LAD measures 3.5 mm proximally and tapers to a 2.5 mm vessel distally. There is SHU 3 flow in the body of the LAD. The LAD gives rise to 2 diagonal vessels. The mid LAD has focal discrete 70% stenosis proximal to the old stent. D2 vessel has ostial 70% stenosis. The IFR across the mid LAD lesion was 0.86 which is significant. Left Circumflex Artery: The LCX measures 3.0 mm proximally and tapers to small vessel coursing along the AV groove. The LCX gives rise to 2 obtuse marginal branches. The LCX is free of significant disease. Right Coronary Artery: RCA is a small nondominant vessel and measures 2.25 mm proximally and tapers to a 1.5 mm vessel distally. The RCA is free of significant disease. Pressure wire findings: Vessel iFR FFR Comments LM LAD 0.86 Mid LAD LCX RCA Percutaneous Coronary Interven (more content not included)...[facility] 04-19-2021 Procedure note* Antonio Tian MD - 04/19/2021 2:36 PM EDT Cardiac Catheterization Procedure Report Date of Service: 04/19/21 Principal Privacy Compliance Manager and Supervising Physician: Antonio Tian MD Procedures Performed: Selective left and right coronary angiography Supervision and interpretation of angiographic findings Left heart catheterization Percutaneous coronary intervention of LAD Percutaneous coronary Intervention of D1 Instantaneous wave-free ratio of LAD Indication for Procedure: Bharti Akbar is a 75 y.o. female with a history of coronary artery disease s/p percutaneous coronary intervention poorly controlled hypertension presented to the hospitalwith unstable angina. Patient was then brought for urgent cardiac catheterization study. Medications: Fentanyl Versed Nitroglycerin 300mcg Verapamil 2.5mg Heparin 5500units 1% Lidocaine for local infiltration 2cc Description of Procedure: Informed consent was obtained and the patient was brought to the cardiac catheterization laboratorywhere the right radial was cleaned, prepped, and draped in the usual sterile fashion and infiltrated with 2 cc of 1% lidocaine for local anesthesia. A 6F slender Terumo sheath was introduced in the right radial artery using the true Seldinger technique. A 5F TIG4.0 catheter was used to selectively engage the right coronary artery. Selective rightcoronary angiography was performed in the usual views. A 5F TIG4.0 catheter was used to selectivelyengage the left coronary artery. Selective left coronary angiography was performed in the usual views. A 5F TIG catheter was used to cross AV into LV to record LVEDP and AV gradients. The sheath was flushed between catheter exchanges. After reviewing the angiograms, we decided to proceed with further evaluation of LAD disease. Therefore, under the cover of heparin as the procedural anticoagulant, a 6 E[place] XB LAD 3.5 guide catheter was used to engage the left coronary artery. A [employer] Omni pressure wire was then advanced into the LAD vessel and across the lesion. iFR was recorded in a standard fashion was found to 0.86 whichis significant. We therefore decided proceed with coronary intervention of mid LAD lesion. A run-through coronary guidewire was advanced into the D2 vessel for sidebranch protection. A 2.5 balloon was advanced to the site of the lesion and inflation made at 10 myra, and then removed. A 2.75 x 12 Synergy drug-eluting stent was advanced to the site of the lesion and deployed at 12 myra. The stent-delivery system was re-inflated at 14 myra and removed. A 2.75 x 8 Synergy drug-eluting stent was advanced proximal to the first stent and deployed at 12 myra. The stent-delivery system was re-inflated at 14 myra and removed. A 2.5 NC balloon was advanced to the site of the ostial diagonal 2 lesion and inflation made at 8 myra, and then removed. Angiography did not reveal evidence of dissection or perforation. The guidewire was removed and final angiography revealed an adequate result. A limited right femoral arteriography was done to locate the position of femoral artery sheath entry point in anticipation of closure device deployment. We confirmed the entry to point to be above the femoral bifurcation and below the inferior border of the inferior epigastric artery without evidence of significant disease. After any catheters and wires were removed, the arterial sheath was removed for a TR band using thestandard technique to achieve adequate hemostasis. Hemodynamic Findings: Left Heart: Aortic Opening Pressure: 212/70 mmHg Aortic Closing Pressure: 180/75 mmHg LV Pressure: 140 mmHg, LV end diastolic pressure 14 mmHg Systolic LV pressure in LV prior to pullback: 140 mmHg Systolic pressure in aorta after pullback: 140 mmHg, pullback gradient not significant Coronary Angiographic Findings: Dominance: left Left Main: 4.5 mm vessel, gives rise to the LAD and LCX Arteries, there was no stenosis. There was SHU 3 flow. Left Anterior Descending Artery: The LAD measures 3.5 mm proximally and tapers to a 2.5 mm vessel distally. There is SHU 3 flow in the body of the LAD. The LAD gives rise to 2 diagonal vessels. The mid LAD has focal discrete 70% stenosis proximal to the old stent. D2 vessel has ostial 70% stenosis. The IFR across the mid LAD lesion was 0.86 which is significant. Left Circumflex Artery: The LCX measures 3.0 mm proximally and tapers to small vessel coursing along the AV groove. The LCX gives rise to 2 obtuse marginal branches. The LCX is free of significant disease. Right Coronary Artery: RCA is a small nondominant vessel and measures 2.25 mm proximally and tapersto a 1.5 mm vessel distally. The RCA is free of significant disease. Pressure wire findings: Vessel iFR FFR Comments LM LAD 0.86 Mid LAD LCX RCA Percutaneous Coronary Intervention: Lesion #1: Mid LAD with LAYNE x 2 Pre: length 20 mm, stenosis 70%, SHU 3 flow Post: length 20 mm, stenosis 0%, SHU 3 flow Lesion #2: Ostial D2 with POBA only Pre: length 10 mm, stenosis 70%, SHU 3 flow Post: length 10 mm, stenosis 0%, SHU 3 flow Fluoroscopy Time: 19.7 minutes Contrast Volume: 75 cc of Isovue Complications: None apparent Summary: Two-vessel obstructive CAD. Mildly elevated left Heart filling pressures Successful percutaneous coronary intervention of mid LAD with LAYNE x 2 Successful POBA of D2 Successful TR Band deployment to right RA. Recommendations: Aggressive risk factor modification Continued medical therapy and follow-up with primary stunt person Aspirin 81 mg daily indefinitely and Ticagrelor 90mg twice daily for ideally 6- 12 months, or longerat the discretion of the primary stunt person Antonio Tian MD, MPH, MRCP, FACC Interventional Cardiology/Structural Heart Disease [facility] documented in this [id number] Consult note* Og Blancas MD - 04/18/2021 2:08 PM EDT Associated Order(s): IP CONSULT TO NEUROLOGY NEUROLOGY NOTE [facility] [place] [address] floor [facility] [address] Fax: [phone] Service date: 04/18/2021 Admit date: 04/17/2021 This note was created in part using a speech-recognition software. Bharti Beard Raffy is a 75 y.o. female currently admitted on observation with the hospitalist team forevaluation of acute onset of chest pressure. Neurology has been consulted for evaluation of accompanying vague neurological symptoms. On interview at bedside patient reports the following: She tells me that she has been working at [employer] to keep her insurance going so that she can cover the $3000 per month prescription costs for her 's Enbrel. She was working at the [employer] lifting some heavy objects, and as she stood up after this, she suddenly felt dizzy and a crushing pain in 3 successive episodes to the chest. It is unclear what she presented physically with but somebody who saw her told her that she needsto go to the ER. There is no clear episode of seizure like event, convulsive spell, loss of consciousness, and nor did she report any sudden onset of tingling, paresthesias, numbness, or speech arrest. She was not particularly weak in any of her limbs but the people around her told her not to move and sat her down. She was also moved quickly by the EMS to be checked out in the ER that she was notsure if she was weak in any of her limbs. Evaluation in the ER showed her to be completely at her normal baseline from a neurological standpoint. She did not go through any stroke evaluation since the focus of her evaluation at the ER was on the cardiac part of the history. Today the patient tells me that she has had episodes of tongue getting stuck to the mouth, for the last few months. They would happen for a few minutes when she is in the middle of her speech, and then they will go away without any residual effects. This is not a language problem, or communication issue as far as she is concerned, and they happen randomly. There is no associated weakness, sensory symptoms, or syncopal/presyncopal spells. She may feel random tingling paresthesias at the hands and feet off and on, and sometimes feels that the speech arrest episodes are like a brain fog. Shelives with her , and admittedly feels that she tries to push herself too much, trying to be active beyond her age (75 years). Blood pressure (!) 170/83, pulse 63, temperature (!) 96.7 F (35.9 C), temperature source Axillary, resp. rate 16, height 5' 3, weight 51.6 kg (113 lb 12.1 oz), SpO2 95 %. On my examination (on 04/18/2021) she appeared to be extremely nervous and anxious. She was able to give me a good timeline-based history without any difficulty with recall. Had no spatial neglect, sensory extinction or apraxia in any of the limbs. Speech and language: As this interview and examination progressed she started having significant stuttering, speech arrest, and pauses which were nonphysiological and incongruent with classically known speech disorder. With reassurance, she was able to speak normally again. Cranial nerve assessment shows normal conjugate gaze, with no deficits in extraocular movements. Face is symmetric, hearing is normal to room conversation, and tongue movements seem to be normal as well. Neuromuscular examination shows hesitation and bradykinesia on finger taps on the left side, but with distraction does seem to be getting better as well. She is able to stand up for me, demonstrating good posture and balance. [place]. She had a little bit of dizziness as she turned quickly, but was able to gather her bearings pretty quickly. Tandem stance was performed without much difficulty. Romberg maneuver was performed without any difficulty. Assessment and plan: In the absence of objective evidence of neurological deficits, and a clinical history that is not clearly consistent with any neurological event, my suspicion of this being a stroke or a primary neurological disorder is very low. She does have mild motor hesitations and bradykinesia particularly inthe left upper extremity compared to the right but the rest of the exam is normal. There is a significant psychological overlay to her exam, in the form of severe anxiety that I could sense during this visit. However given the circumstances in which this episode happened, and her self- reported history of occasional brain fog, and speech arrest, it is reasonable to get an MRI of the brain. If the brain MRI shows clear evidence of structural pathology, further work-up can be pursued in that direction. Recommendations: 1. MRI brain ordered. Please get this done before catheterization tomorrow as cardiac catheterization can cause embolization of the brain. 2. Continue cardiac work-up as appropriate. 3. Further recommendations from neurology standpoint will be made after MRI is completed. We will follow up results of MRI. OG BLANCAS MSc, MD. Staff Neurologist & Movement Disorder Specialist [facility] (Adj Asst: Professor, [employer] Dept of Neurology) [address] [id number], [facility] [address] [facility] Fax: [phone] Attestation: Time statement (IP Consults): A total of 50 minutes were spent at this encounter with the patient and > 50% of that time was spent on counseling and coordination of care. * Joselyn Urbina MD - 04/18/2021 7:12 AM EDT Associated Order(s): IP CONSULT TO CARDIOLOGY General Cardiology Inpatient Consult Heart & Vascular [facility] 04/18/2021 Joselyn Urbina MD [facility] Patient: Bharti Akbar Date of : 1945 (75 y.o.) Referring Provider: Rajeev Reese,* PCP: Physician No Assessment/Plan: * Chest pain Assessment & Plan I think her episode may been more related to the work that she was doing, possibly some heat component. Her enzymes are negative EKG appears nonacute. However she does report a several month history of angina symptoms that is concerning overall. With her known disease I think angiographic assessment should be updated and I reviewed that with her. We will check her lipid panel, advance her statin as needed, start her on metoprolol tartrate 25 twice a day. Carotid duplex study will be completed neurology consult has been ordered. Continue aspirin therapy. Further recommendations pending her diagnostic findings. Reason for Consultation: chest pain History of Present Illness: Bharti Akbar is a 75 y.o. female This is a pleasant 75-year-old. She states several years ago in 2014 she was evaluated. She was in [facility] at that time. She was having mainly fatigue symptoms noted. Family history of coronary disease with her father having history of bypass procedure. Ultimately she had catheterization, 2 days later she apparently had intervention with a stent. Apparently the time of her original catheterization her blood pressure was too high to proceed with intervention. She states she is remained fatigued but symptoms did somewhat improve. She has been complaining of chest pain symptoms for 2 months, she describes it as a angina. Last 5 to 10 minutes substernal pressure. Typically occurs at the end of her workday. Yesterday at work she was doing something physical which is not necessarily unusual for her, she stood up and felt warm, she then had 3 episodes of severe substernal chest pressure, these were all relatively brief in duration and they seem to resolve. In the emergency room she was described as being pain-free. She has also been complaining of periods of confusion, forgetfulness, and a thick tongue. No other discrete neurologic symptoms noted. She apparently has been told she has had moderate carotid disease in the past. Past Medical History: Diagnosis Date Arthritis Coronary artery disease Disease of thyroid gland Hyperlipidemia Hypertension Past Surgical History: Procedure Laterality Date CARDIAC CATHETERIZATION 09/01/2015 with stent placement HYSTERECTOMY (CERVIX REMOVED) ORTHOPEDIC SURGERY right foot and right hand surgery THYROIDECTOMY History reviewed. No pertinent family history. Social History Tobacco Use Smoking Status Never Smoker Smokeless Tobacco Never Used Allergies: Acetaminophen and Codeine Prior to Admission medications Medication Sig Start Date End Date Taking? Authorizing Provider aspirin 81 MG EC tablet Take 81 mg by mouth daily . Historical Provider, atorvastatin (LIPITOR) 20 MG tablet Take 20 mg by mouth daily . Historical Provider, hydroCHLOROthiazide (HYDRODIURIL) 25 MG tablet Take 25 mg by mouth daily . Historical Provider, levothyroxine (SYNTHROID, LEVOTHROID) 100 MCG tablet Take 100 mcg by mouth once daily . Historical Provider, lisinopriL (PRINIVIL,ZESTRIL) 10 MG tablet Take by mouth daily . Historical Provider, meloxicam (MOBIC) 7.5 MG tablet Take 7.5 mg by mouth daily . Historical Provider, multivitamin (multivitamin) per tablet Take 1 tablet by mouth daily . Historical Provider, potassium chloride SA (K-DUR,KLOR-CON) 20 MEQ tablet Take 20 mEq by mouth 2 (two) times a day . Historical Provider, predniSONE (DELTASONE) 10 mg tablet pack Take by mouth daily . Historical Provider, tiZANidine (ZANAFLEX) 4 MG capsule Take by mouth nightly . Historical Provider, traMADoL (ULTRAM) 50 mg tablet Take 50 mg by mouth every 4 (four) hours as needed for pain . Historical Provider, traZODone (DESYREL) 50 MG tablet Take by mouth nightly as needed . Historical Provider, Current Facility-Administered Medications Medication Dose Route Frequency Provider Last Rate Last Admin aspirin EC tablet 81 mg 81 mg Oral Daily Moo Zuniga MD atorvastatin (LIPITOR) tablet 20 mg 20 mg Oral Daily Moo Zuniga MD enoxaparin (LOVENOX) syringe 40 mg 40 mg Subcutaneous Daily Joselyn Urbina MD hydroCHLOROthiazide (HYDRODIURIL) tablet 25 mg 25 mg Oral Daily Moo Zuniga MD levothyroxine (SYNTHROID, LEVOTHROID) tablet 100 mcg 100 mcg Oral Daily Moo Zuniga MD 100 mcg at 04/18/21 0645 lisinopriL (PRINIVIL,ZESTRIL) tablet 20 mg 20 mg Oral Daily with lunch Joselyn Urbina MD metoprolol tartrate (LOPRESSOR) tablet 25 mg 25 mg Oral BID Joselyn Urbina MD naloxone (NARCAN) injection 0.1 mg 0.1 mg Intravenous PRN Moo Zuniga MD And naloxone (NARCAN) injection 0.4 mg 0.4 mg Intravenous PRN Moo Zuniga MD nitroGLYCERIN (NITROSTAT) SL tablet 0.4 mg 0.4 mg Sublingual Q5 Min PRN Moo Zuniga MD pneumococcal vaccine (PNU-IMMUNE 23) injection 0.5 mL 0.5 mL Intramuscular Prior To Discharge Moo Zuniga MD potassium chloride SA (K-DUR,KLOR-CON) CR tablet 20 mEq 20 mEq Oral Daily Moo Zuniga MD sodium chloride (PF) (NS) flush 5 mL 5 mL Intravenous PRN Moo Zuniga MD And sodium chloride (PF) (NS) flush 5 mL 5 mL Intravenous Q8H TRINITY Moo Zuniga MD 5 mL at 04/18/21 0646 And sodium chloride 0.9% (NS) 0-150 mL/hr Intravenous PRN Moo Zuniga MD tiZANidine (ZANAFLEX) tablet 4 mg 4 mg Oral Nightly Moo Zuniga MD 4 mg at 04/18/21 0119 traMADoL (ULTRAM) tablet 50 mg 50 mg Oral Q4H PRN Moo Zuniga MD traZODone (DESYREL) tablet 50 mg 50 mg Oral Nightly PRN Shantal Salazar CNP 50 mg at 04/18/21 0118 Review of Systems: Review of Systems Constitutional: Positive for malaise/fatigue. Negative for fever. Cardiovascular: Positive for chest pain. Negative for claudication, cyanosis, dyspnea on exertion, irregular heartbeat, leg swelling, near-syncope, orthopnea, palpitations, paroxysmal nocturnal dyspnea and syncope. Respiratory: Negative for shortness of breath. Musculoskeletal: Positive for joint pain (left hip). Gastrointestinal: Negative for hematemesis and hematochezia. Neurological: Positive for difficulty with concentration. Negative for focal weakness, paresthesiasand weakness. Psychiatric/Behavioral: Positive for memory loss. Negative for altered mental status. All other systems reviewed and are negative. Objective: Vital Signs: BP (!) 151/58 (BP Location: Left arm, Patient Position: Lying) Pulse 63 Temp 97.7 F (36.5 C) (Oral) Resp 13 Ht 5' 3 Wt 51.6 kg (113 lb 12.1 oz) SpO2 98% BMI 20.15 kg/m Physical Examination: Physical Exam Constitutional: Appearance: She is well-developed. HENT: Head: Normocephalic. Eyes: General: No scleral icterus. Neck: Thyroid: No thyromegaly. Cardiovascular: Rate and Rhythm: Normal rate and regular rhythm. Heart sounds: Murmur heard. Low-pitched scratchy midsystolic murmur is present at the upper right sternal border and upper leftsternal border. No friction rub. No gallop. Pulmonary: Effort: Pulmonary effort is normal. Breath sounds: Normal breath sounds. No wheezing or rales. Abdominal: Palpations: Abdomen is soft. Tenderness: There is no abdominal tenderness. There is no guarding or rebound. Musculoskeletal: Cervical back: Neck supple. Skin: General: Skin is warm and dry. Neurological: Mental Status: She is alert and oriented to person, place, and time. EKG Interpretation: EKG shows normal sinus rhythm, heart rate 63, appears within normal limits. EKG yesterday also appeared within normal limits. Lab Results Component Value Date WBC 11.49 (H) 04/17/2021 HGB 13.3 04/17/2021 HCT 36.9 04/17/2021 MCV 87.6 04/17/2021 PLT 233 04/17/2021 RBC 4.21 04/17/2021 Lab Results Component Value Date CREATININE 0.98 04/17/2021 BUN 22 04/17/2021 No results found for: NA, K, CL Lab Results Component Value Date TROPONINI <15 04/18/2021 ECG 12 Lead Final Result by Rajeev Reese MD (04/17/2021 1545) Rajeev Reese MD 04/17/2021 3:45 PM ECG 12 Lead Date/Time: 04/17/2021 2:28 PM Performed by: Rajeev Reese MD Authorized by: Rajeev Reese MD Interpreted by ED attending physician Rhythm: sinus rhythm BPM: 69 ST Segments: ST segments normal normal ND interval normal QRS interval normal QT interval Clinical impression: normal ECG Joselyn Urbina documented in this [id number] History and physical note* Moo Zuniga MD - 04/18/2021 1:29 AM EDT [facility] Medicine Inpatient H&P 04/18/2021 Moo Zuniga MD [facility] Patient: Bharti Akbar Date of : 1945 (75 y.o.) PCP: Physician No Assessment Bharti Akbar 75 y.o. female with history of CAD 1. Chest pain. On exertion. 2. TIA. Episode of aphasia. Principal Problem: Chest pain Plan: Admit patient to observation status with telemetry. Repeat troponin. Repeat EKG. patient takes aspirin on daily basis. Cardiology consult. Neurology consult. DVT prophylaxis with Lovenox subcutaneous. SUBJECTIVE: Chief Complaint: Chest pain History of Presenting Illness: This is a 75-year-old female patient who came to the emergency room with complaint of chest pain. Patient has history of CAD with history of stent placement 6 years ago. Pain happened when she was atwork and patient left with some heavy weight when she started having crushing pain in the sternal area. That pain happened and 3 episodes [id number]. Patient felt hot during the pain. Patient denies radiation of the pain and denies nausea and vomiting. Patient has history of coronary artery disease she had stents placed in 2015. Patient had a normal stress test a year ago. Patient reported to me history of atrial fibrillation. I do not see that in her history in our system and her EKG today is normal sinus rhythm. Patient also describes episode of speech difficulties. Patient states that she gets episodes when she cannot get the words out. Patient said that those episodes happened to her on a weekly basis. Last episode happened last week. Patient denies any other neurological symptoms. Review of Systems: 10 systems reviewed and negative other than noted in HPI History: Past Medical History: Diagnosis Date Arthritis Coronary artery disease Disease of thyroid gland Hyperlipidemia Hypertension Past Surgical History: Procedure Laterality Date CARDIAC CATHETERIZATION 09/01/2015 with stent placement HYSTERECTOMY (CERVIX REMOVED) ORTHOPEDIC SURGERY right foot and right hand surgery THYROIDECTOMY History reviewed. No pertinent family history. Social History Tobacco Use Smoking Status Never Smoker Smokeless Tobacco Never Used Social History Substance and Sexual Activity Alcohol Use Not Currently Family and Social History reviewed and non-pertinent to this visit Allergies: Acetaminophen and Codeine Home Medications: No current outpatient medications on file as of 04/18/2021. OBJECTIVE: Physical Examination: BP (!) 161/58 (BP Location: Left arm, Patient Position: Lying) Pulse 61 Temp 97.7 F (36.5 C) (Oral) Resp 17 Ht 5' 3 Wt 51.6 kg (113 lb 12.1 oz) SpO2 99% BMI 20.15 kg/m General Appearance: Alert, well appearing, and in no acute distress. HEENT: Head - Normocephalic, atraumatic. Eyes - RAFAEL bilaterally and EOMI. Neck: Supple, trachea midline. Cardiovascular: S1, S2 normal. No murmurs, rubs, clicks or gallops appreciated. No pedal edema. Respiratory: Lungs clear to auscultation, no wheezes, rales or rhonchi heard. Abdomen: Soft, non-tender, normal bowel sounds, non-distended, no masses or organomegaly appreciated. Neurological: Grossly normal motor and sensory exam. No focal deficits. Musculoskeletal: No joint tenderness, deformity or swelling. Skin: Normal coloration and turgor. No rashes. Psych: Alert, oriented x 3. Normal mood and affect. Laboratory and Additional Data Reviewed: Results/Medications Reviewed 04/18/21 2:29 AM: Results from last 7 days Lab Units 04/17/21 1432 POC BUN mg/dL 22 POC CREATININE (EPOC) mg/dL 0.98 Results from last 7 days Lab Units 04/17/21 1425 WBC K/mcL 11.49* HGB g/dL 13.3 HCT % 36.9 PLT K/mcL 233 Results from last 7 days Lab Units 04/18/21 0036 TROPONIN I ng/L <15 Invalid input(s): LABALBU CULTURES: Reviewed 2:29 AM IMAGING: Reviewed 2:29 AM documented in this [id number] History of Present illness Narrative* Shanique Camacho RT(R) - 04/15/2021 2:30 PM EDT Radiology Service Progress Note PATIENT NAME: Bharti Akbar DATE OF SERVICE: April 15, 2021 TIME: 2:21 PM PATIENT IDENTITY VERIFICATION COMPLETED USING TWO (2) IDENTIFIERS: Name and Date of confirmedby patient verbally. FALL SCREENING: Has the patient had 2 falls in the last year or 1 fall with injury or currently using an Ambulatory Assistive Device (Walker, Cane, Wheelchair, Crutches, etc.)? No PATIENT GENDER DATA: Female. status: : No status: NO. PATIENT RELEVANT IMPLANT DATA REVIEWED: Yes RADIOLOGY DEPARTMENT: General X-ray: Exam(s) Completed: Upper Extremity X- Ray(s): Hand, bilateral PERIPHERAL IV DATA: Not applicable SIGNED BY: RT Niles(R) April 15, 2021 2:21 PM [facility] History of Present illness Narrative* Shanique Camacho RT(R) - 04/13/2021 10:20 AM EDT Radiology Service Progress Note PATIENT NAME: Bharti Akbar DATE OF SERVICE: April 13, 2021 TIME: 10:22 AM PATIENT IDENTITY VERIFICATION COMPLETED USING TWO (2) IDENTIFIERS: Name and Date of confirmedby patient verbally. FALL SCREENING: Has the patient had 2 falls in the last year or 1 fall with injury or currently using an Ambulatory Assistive Device (Walker, Cane, Wheelchair, Crutches, etc.)? No PATIENT GENDER DATA: Female. status: : No status: NO. PATIENT RELEVANT IMPLANT DATA REVIEWED: Yes RADIOLOGY DEPARTMENT: General X-ray: Exam(s) Completed: Pelvis X-Ray: Pelvis with Hip Left PERIPHERAL IV DATA: Not applicable SIGNED BY: RT Niles(R) April 13, 2021 10:22 AM documented [facility] this [facility] History of Past illness Narrative* Problem Noted Date Resolved Date Heberden's nodes 07/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 Akbar indicates that she is feeling well and denies any symptoms referable to elevated blood pressure. Specifically denies chest pain, palpitations, dyspnea and peripheral edema. Patient denies any side effects of her medication(s) and is compliant with their regimen. She does check BP's away from this office with average BP's in the 135/65 range. Bharti gets minimal exercise. She watches her diet for sodium, low fat and low cholesterol most of the time. 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 Akbar indicates that she is feeling well and denies any symptoms referable to elevated blood pressure. Specifically denies chest pain, palpitations, dyspnea and peripheral edema. Patient denies any side effects of her medication(s) and is compliant with their regimen. She does check BP's away from this office with average BP's in the 135/65 range. Bharti gets minimal exercise. She watches her diet for sodium, low fat and low cholesterol most of the time. 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 Akbar indicates that she is feeling well and denies any symptoms referable to elevated blood pressure. Specifically denies chest pain, palpitations, dyspnea and peripheral edema. Patient denies any side effects of her medication(s) and is compliant with their regimen. She does check BP's away from this office with average BP's in the 135/65 range. Bharti gets minimal exercise. She watches her diet for sodium, low fat and low cholesterol most of the time. 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 Akbar indicates that she is feeling well and denies any symptoms referable to elevated blood pressure. Specifically denies chest pain, palpitations, dyspnea and peripheral edema. Patient denies any side effects of her medication(s) and is compliant with their regimen. She does check BP's away from this office with average BP's in the 135/65 range. Bharti gets minimal exercise. She watches her diet for sodium, low fat and low cholesterol most of the time. 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 Akbar indicates that she is feeling well and denies any symptoms referable to elevated blood pressure. Specifically denies chest pain, palpitations, dyspnea and peripheral edema. Patient denies any side effects of her medication(s) and is compliant with their regimen. She does check BP's away from this office with average BP's in the 135/65 range. Bharti gets minimal exercise. She watches her diet for sodium, low fat and low cholesterol most of the time. 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 Akbar indicates that she is feeling well and denies any symptoms referable to elevated blood pressure. Specifically denies chest pain, palpitations, dyspnea and peripheral edema. Patient denies any side effects of her medication(s) and is compliant with their regimen. She does check BP's away from this office with average BP's in the 135/65 range. Bharti gets minimal exercise. She watches her diet for sodium, low fat and low cholesterol most of the time. 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 Akbar indicates that she is feeling well and denies any symptoms referable to elevated blood pressure. Specifically denies chest pain, palpitations, dyspnea and peripheral edema. Patient denies any side effects of her medication(s) and is compliant with their regimen. She does check BP's away from this office with average BP's in the 135/65 range. Bharti gets minimal exercise. She watches her diet for sodium, low fat and low cholesterol most of the time. 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 Akbar indicates that she is feeling well and denies any symptoms referable to elevated blood pressure. Specifically denies chest pain, palpitations, dyspnea and peripheral edema. Patient denies any side effects of her medication(s) and is compliant with their regimen. She does check BP's away from this office with average BP's in the 135/65 range. Bharti gets minimal exercise. She watches her diet for sodium, low fat and low cholesterol most of the time. 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 Akbar indicates that she is feeling well and denies any symptoms referable to elevated blood pressure. Specifically denies chest pain, palpitations, dyspnea and peripheral edema. Patient denies any side effects of her medication(s) and is compliant with their regimen. She does check BP's away from this office with average BP's in the 135/65 range. Bharti gets minimal exercise. She watches her diet for sodium, low fat and low cholesterol most of the time. 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 Akbar indicates that she is feeling well and denies any symptoms referable to elevated blood pressure. Specifically denies chest pain, palpitations, dyspnea and peripheral edema. Patient denies any side effects of her medication(s) and is compliant with their regimen. She does check BP's away from this office with average BP's in the 135/65 range. Bharti gets minimal exercise. She watches her diet for sodium, low fat and low cholesterol most of the time. 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 Special screening for malignant neoplasms, colon 07/25/2005 07/06/2012 Unspecified constipation 011 Diarrhea 03/23/2011 documented as of this encounter (statuses as of 09/14/2022) [facility] History of Past illness Narrative* Problem Noted Date Resolved Date Heberden's nodes 07/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 Akbar indicates that she is feeling well and denies any symptoms referable to elevated blood pressure. Specifically denies chest pain, palpitations, dyspnea and peripheral edema. Patient denies any side effects of her medication(s) and is compliant with their regimen. She does check BP's away from this office with average BP's in the 135/65 range. Bharti gets minimal exercise. She watches her diet for sodium, low fat and low cholesterol most of the time. 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 Special screening for malignant neoplasms, colon 07/25/2005 07/06/2012 Unspecified constipation 011 Diarrhea 03/23/2011 documented as of this encounter (statuses as of 10/07/2022) [facility] History of Past illness Narrative* Problem Noted Date Resolved Date Heberden's nodes 07/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 Akbar indicates that she is feeling well and denies any symptoms referable to elevated blood pressure. Specifically denies chest pain, palpitations, dyspnea and peripheral edema. Patient denies any side effects of her medication(s) and is compliant with their regimen. She does check BP's away from this office with average BP's in the 135/65 range. Bharti gets minimal exercise. She watches her diet for sodium, low fat and low cholesterol most of the time. 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 Akbar indicates that she is feeling well and denies any symptoms referable to elevated blood pressure. Specifically denies chest pain, palpitations, dyspnea and peripheral edema. Patient denies any side effects of her medication(s) and is compliant with their regimen. She does check BP's away from this office with average BP's in the 135/65 range. Bharti gets minimal exercise. She watches her diet for sodium, low fat and low cholesterol most of the time. 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 Akbar indicates that she is feeling well and denies any symptoms referable to elevated blood pressure. Specifically denies chest pain, palpitations, dyspnea and peripheral edema. Patient denies any side effects of her medication(s) and is compliant with their regimen. She does check BP's away from this office with average BP's in the 135/65 range. Bharti gets minimal exercise. She watches her diet for sodium, low fat and low cholesterol most of the time. 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 Akbar indicates that she is feeling well and denies any symptoms referable to elevated blood pressure. Specifically denies chest pain, palpitations, dyspnea and peripheral edema. Patient denies any side effects of her medication(s) and is compliant with their regimen. She does check BP's away from this office with average BP's in the 135/65 range. Bharti gets minimal exercise. She watches her diet for sodium, low fat and low cholesterol most of the time. 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 Akbar indicates that she is feeling well and denies any symptoms referable to elevated blood pressure. Specifically denies chest pain, palpitations, dyspnea and peripheral edema. Patient denies any side effects of her medication(s) and is compliant with their regimen. She does check BP's away from this office with average BP's in the 135/65 range. Bharti gets minimal exercise. She watches her diet for sodium, low fat and low cholesterol most of the time. 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 Akbar indicates that she is feeling well and denies any symptoms referable to elevated blood pressure. Specifically denies chest pain, palpitations, dyspnea and peripheral edema. Patient denies any side effects of her medication(s) and is compliant with their regimen. She does check BP's away from this office with average BP's in the 135/65 range. Bharti gets minimal exercise. She watches her diet for sodium, low fat and low cholesterol most of the time. 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 Akbar indicates that she is feeling well and denies any symptoms referable to elevated blood pressure. Specifically denies chest pain, palpitations, dyspnea and peripheral edema. Patient denies any side effects of her medication(s) and is compliant with their regimen. She does check BP's away from this office with average BP's in the 135/65 range. Bharti gets minimal exercise. She watches her diet for sodium, low fat and low cholesterol most of the time. 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 Akbar indicates that she is feeling well and denies any symptoms referable to elevated blood pressure. Specifically denies chest pain, palpitations, dyspnea and peripheral edema. Patient denies any side effects of her medication(s) and is compliant with their regimen. She does check BP's away from this office with average BP's in the 135/65 range. Bharti gets minimal exercise. She watches her diet for sodium, low fat and low cholesterol most of the time. 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 Special screening for malignant neoplasms, colon 07/25/2005 07/06/2012 Unspecified constipation 011 Diarrhea 03/23/2011 documented as of this encounter (statuses as of 03/17/2023) [facility] History of Past illness Narrative* Problem Noted Date Diagnosed Date Resolved Date Heberden's nodes 07/07/2015 09/15/2016 Iron deficiency anemia due t o chronic blood loss 03/06/2015 09/15/2016 De Quervain's tenosynovitis, right 03/26/2014 01/02/2017 Hypertension 03/23/2011 07/07/2015 Overview: Lipids through work 09/2010 TC 215, HDL 75, LDL 118, TG110, Gluc 89 Last Assessment & Plan: HTN: Ms. Akbar indicates that she is feeling well and denies any symptoms referable to elevated blood pressure. Specifically denies chest pain, palpitations, dyspnea and peripheral edema. Patient denies any side effects of her medication(s) and is compliant with their regimen. She does check BP's away from this office with average BP's in the 135/65 range. Bharti gets minimal exercise. She watches her diet for sodium, low fat and low cholesterol most of the time. 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 Special screening for malign ant neoplasms, colon 07/25/2005 07/06/2012 Unspecified constipation Diarrhea 03/23/2011 documented as of this encounter (statuses as of 03/29/2023) [facility] History of Past illness Narrative* Problem Noted Date Diagnosed Date Resolved Date Heberden's nodes 07/07/2015 09/15/2016 Iron deficiency anemia due t o chronic blood loss 03/06/2015 09/15/2016 De Quernile's tenosynovitis, right 03/26/2014 01/02/2017 Hypertension 03/23/2011 07/07/2015 Overview: Lipids through work 09/2010 TC 215, HDL 75, LDL 118, TG110, Gluc 89 Last Assessment & Plan: HTN: Ms. Akbar indicates that she is feeling well and denies any symptoms referable to elevated blood pressure. Specifically denies chest pain, palpitations, dyspnea and peripheral edema. Patient denies any side effects of her medication(s) and is compliant with their regimen. She does check BP's away from this office with average BP's in the 135/65 range. Bharti gets minimal exercise. She watches her diet for sodium, low fat and low cholesterol most of the time. 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 Special screening for malign ant neoplasms, colon 07/25/2005 07/06/2012 Unspecified constipation Diarrhea 03/23/2011 documented as of this encounter (statuses as of 04/14/2023) [facility] History of Past illness Narrative* Problem Noted Date Diagnosed Date Resolved Date Heberden's nodes 07/07/2015 09/15/2016 Iron deficiency anemia due t o chronic blood loss 03/06/2015 09/15/2016 De Quervain's tenosynovitis, right 03/26/2014 01/02/2017 Hypertension 03/23/2011 07/07/2015 Overview: Lipids through work 09/2010 TC 215, HDL 75, LDL 118, TG110, Gluc 89 Last Assessment & Plan: HTN: Ms. Akbar indicates that she is feeling well and denies any symptoms referable to elevated blood pressure. Specifically denies chest pain, palpitations, dyspnea and peripheral edema. Patient denies any side effects of her medication(s) and is compliant with their regimen. She does check BP's away from this office with average BP's in the 135/65 range. Bharti gets minimal exercise. She watches her diet for sodium, low fat and low cholesterol most of the time. 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 Special screening for malign ant neoplasms, colon 07/25/2005 07/06/2012 Unspecified constipation Diarrhea 03/23/2011 documented as of this encounter (statuses as of 04/18/2023) [facility]10-[facility]-2015 History of Past illness Narrative* Problem Noted Date Diagnosed Date Resolved Date Heberden's nodes 07/07/2015 09/15/2016 Iron deficiency anemia due t o chronic blood loss 03/06/2015 09/15/2016 De Quervain's tenosynovitis, right 03/26/2014 01/02/2017 Hypertension 03/23/2011 07/07/2015 Overview: Lipids through work 09/2010 TC 215, HDL 75, LDL 118, TG110, Gluc 89 Last Assessment & Plan: HTN: Ms. Akbar indicates that she is feeling well and denies any symptoms referable to elevated blood pressure. Specifically denies chest pain, palpitations, dyspnea and peripheral edema. Patient denies any side effects of her medication(s) and is compliant with their regimen. She does check BP's away from this office with average BP's in the 135/65 range. Bharti gets minimal exercise. She watches her diet for sodium, low fat and low cholesterol most of the time. 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 Special screening for malign ant neoplasms, colon 07/25/2005 07/06/2012 Unspecified constipation Diarrhea 03/23/2011 documented as of this encounter (statuses as of 04/20/2023) [facility] History of Past illness Narrative* Problem Noted Date Diagnosed Date Resolved Date Heberden's nodes 07/07/2015 09/15/2016 Iron deficiency anemia due t o chronic blood loss 03/06/2015 09/15/2016 De Quervain's tenosynovitis, right 03/26/2014 01/02/2017 Hypertension 03/23/2011 07/07/2015 Overview: Lipids through work 09/2010 TC 215, HDL 75, LDL 118, TG110, Gluc 89 Last Assessment & Plan: HTN: Ms. Akbar indicates that she is feeling well and denies any symptoms referable to elevated blood pressure. Specifically denies chest pain, palpitations, dyspnea and peripheral edema. Patient denies any side effects of her medication(s) and is compliant with their regimen. She does check BP's away from this office with average BP's in the 135/65 range. Bharti gets minimal exercise. She watches her diet for sodium, low fat and low cholesterol most of the time. 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 Special screening for malign ant neoplasms, colon 07/25/2005 07/06/2012 Unspecified constipation Diarrhea 03/23/2011 documented as of this encounter (statuses as of 04/21/2023) [facility] History of Past illness Narrative* Problem Noted Date Diagnosed Date Resolved Date Heberden's nodes 07/07/2015 09/15/2016 Iron deficiency anemia due t o chronic blood loss 03/06/2015 09/15/2016 De Quervain's tenosynovitis, right 03/26/2014 01/02/2017 Hypertension 03/23/2011 07/07/2015 Overview: Lipids through work 09/2010 TC 215, HDL 75, LDL 118, TG110, Gluc 89 Last Assessment & Plan: HTN: Ms. Akbar indicates that she is feeling well and denies any symptoms referable to elevated blood pressure. Specifically denies chest pain, palpitations, dyspnea and peripheral edema. Patient denies any side effects of her medication(s) and is compliant with their regimen. She does check BP's away from this office with average BP's in the 135/65 range. Bharti gets minimal exercise. She watches her diet for sodium, low fat and low cholesterol most of the time. 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 Special screening for malign ant neoplasms, colon 07/25/2005 07/06/2012 Unspecified constipation Diarrhea 03/23/2011 documented as of this encounter (statuses as of 04/21/2023) [facility] History of Past illness Narrative* Problem Noted Date Diagnosed Date Resolved Date Heberden's nodes 07/07/2015 09/15/2016 Iron deficiency anemia due t o chronic blood loss 03/06/2015 09/15/2016 De Quervain's tenosynovitis, right 03/26/2014 01/02/2017 Hypertension 03/23/2011 07/07/2015 Overview: Lipids through work 09/2010 TC 215, HDL 75, LDL 118, TG110, Gluc 89 Last Assessment & Plan: HTN: Ms. Akbar indicates that she is feeling well and denies any symptoms referable to elevated blood pressure. Specifically denies chest pain, palpitations, dyspnea and peripheral edema. Patient denies any side effects of her medication(s) and is compliant with their regimen. She does check BP's away from this office with average BP's in the 135/65 range. Bharti gets minimal exercise. She watches her diet for sodium, low fat and low cholesterol most of the time. 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 Special screening for malign ant neoplasms, colon 07/25/2005 07/06/2012 Unspecified constipation Diarrhea 03/23/2011 documented as of this encounter (statuses as of 04/21/2023) [facility] History of Past illness Narrative* Problem Noted Date Diagnosed Date Resolved Date Heberden's nodes 07/07/2015 09/15/2016 Iron deficiency anemia due t o chronic blood loss 03/06/2015 09/15/2016 De Quervain's tenosynovitis, right 03/26/2014 01/02/2017 Hypertension 03/23/2011 07/07/2015 Overview: Lipids through work 09/2010 TC 215, HDL 75, LDL 118, TG110, Gluc 89 Last Assessment & Plan: HTN: Ms. Akbar indicates that she is feeling well and denies any symptoms referable to elevated blood pressure. Specifically denies chest pain, palpitations, dyspnea and peripheral edema. Patient denies any side effects of her medication(s) and is compliant with their regimen. She does check BP's away from this office with average BP's in the 135/65 range. Bharti gets minimal exercise. She watches her diet for sodium, low fat and low cholesterol most of the time. 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 Special screening for malign ant neoplasms, colon 07/25/2005 07/06/2012 Unspecified constipation Diarrhea 03/23/2011 documented as of this encounter (statuses as of 04/27/2023) [facility] History of Past illness Narrative* Problem Noted Date Diagnosed Date Resolved Date Heberden's nodes 07/07/2015 09/15/2016 Iron deficiency anemia due t o chronic blood loss 03/06/2015 09/15/2016 De Quervain's tenosynovitis, right 03/26/2014 01/02/2017 Hypertension 03/23/2011 07/07/2015 Overview: Lipids through work 09/2010 TC 215, HDL 75, LDL 118, TG110, Gluc 89 Last Assessment & Plan: HTN: Ms. Akbar indicates that she is feeling well and denies any symptoms referable to elevated blood pressure. Specifically denies chest pain, palpitations, dyspnea and peripheral edema. Patient denies any side effects of her medication(s) and is compliant with their regimen. She does check BP's away from this office with average BP's in the 135/65 range. Bharti gets minimal exercise. She watches her diet for sodium, low fat and low cholesterol most of the time. 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 Special screening for malign ant neoplasms, colon 07/25/2005 07/06/2012 Unspecified constipation Diarrhea 03/23/2011 documented as of this encounter (statuses as of 05/06/2023) [facility] History of Past illness Narrative* Problem Noted Date Diagnosed Date Resolved Date Heberden's nodes 07/07/2015 09/15/2016 Iron deficiency anemia due t o chronic blood loss 03/06/2015 09/15/2016 De Quervain's tenosynovitis, right 03/26/2014 01/02/2017 Hypertension 03/23/2011 07/07/2015 Overview: Lipids through work 09/2010 TC 215, HDL 75, LDL 118, TG110, Gluc 89 Last Assessment & Plan: HTN: Ms. Akbar indicates that she is feeling well and denies any symptoms referable to elevated blood pressure. Specifically denies chest pain, palpitations, dyspnea and peripheral edema. Patient denies any side effects of her medication(s) and is compliant with their regimen. She does check BP's away from this office with average BP's in the 135/65 range. Bharti gets minimal exercise. She watches her diet for sodium, low fat and low cholesterol most of the time. 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 Special screening for malign ant neoplasms, colon 07/25/2005 07/06/2012 Unspecified constipation Diarrhea 03/23/2011 documented as of this encounter (statuses as of 05/12/2023) [facility] History of Past illness Narrative* Problem Noted Date Diagnosed Date Resolved Date Heberden's nodes 07/07/2015 09/15/2016 Iron deficiency anemia due t o chronic blood loss 03/06/2015 09/15/2016 De Quervain's tenosynovitis, right 03/26/2014 01/02/2017 Hypertension 03/23/2011 07/07/2015 Overview: Lipids through work 09/2010 TC 215, HDL 75, LDL 118, TG110, Gluc 89 Last Assessment & Plan: HTN: Ms. Akbar indicates that she is feeling well and denies any symptoms referable to elevated blood pressure. Specifically denies chest pain, palpitations, dyspnea and peripheral edema. Patient denies any side effects of her medication(s) and is compliant with their regimen. She does check BP's away from this office with average BP's in the 135/65 range. Bharti gets minimal exercise. She watches her diet for sodium, low fat and low cholesterol most of the time. 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 Special screening for malign ant neoplasms, colon 07/25/2005 07/06/2012 Unspecified constipation Diarrhea 03/23/2011 documented as of this encounter (statuses as of 05/12/2023) [facility] History of Past illness Narrative* Problem Noted Date Diagnosed Date Resolved Date Heberden's nodes 07/07/2015 09/15/2016 Iron deficiency anemia due t o chronic blood loss 03/06/2015 09/15/2016 De Quervain's tenosynovitis, right 03/26/2014 01/02/2017 Hypertension 03/23/2011 07/07/2015 Overview: Lipids through work 09/2010 TC 215, HDL 75, LDL 118, TG110, Gluc 89 Last Assessment & Plan: HTN: Ms. Akbar indicates that she is feeling well and denies any symptoms referable to elevated blood pressure. Specifically denies chest pain, palpitations, dyspnea and peripheral edema. Patient denies any side effects of her medication(s) and is compliant with their regimen. She does check BP's away from this office with average BP's in the 135/65 range. Bharti gets minimal exercise. She watches her diet for sodium, low fat and low cholesterol most of the time. 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 Special screening for malign ant neoplasms, colon 07/25/2005 07/06/2012 Unspecified constipation Diarrhea 03/23/2011 documented as of this encounter (statuses as of 06/24/2023) [facility] History of Past illness Narrative* Problem Noted Date Diagnosed Date Resolved Date Heberden's nodes 07/07/2015 09/15/2016 Iron deficiency anemia due t o chronic blood loss 03/06/2015 09/15/2016 De Quervain's tenosynovitis, right 03/26/2014 01/02/2017 Hypertension 03/23/2011 07/07/2015 Overview: Lipids through work 09/2010 TC 215, HDL 75, LDL 118, TG110, Gluc 89 Last Assessment & Plan: HTN: Ms. Akbar indicates that she is feeling well and denies any symptoms referable to elevated blood pressure. Specifically denies chest pain, palpitations, dyspnea and peripheral edema. Patient denies any side effects of her medication(s) and is compliant with their regimen. She does check BP's away from this office with average BP's in the 135/65 range. Bharti gets minimal exercise. She watches her diet for sodium, low fat and low cholesterol most of the time. 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 Special screening for malign ant neoplasms, colon 07/25/2005 07/06/2012 Unspecified constipation Diarrhea 03/23/2011 documented as of this encounter (statuses as of 07/05/2023) [facility] History of Past illness Narrative* Problem Noted Date Diagnosed Date Resolved Date Heberden's nodes 07/07/2015 09/15/2016 Iron deficiency anemia due t o chronic blood loss 03/06/2015 09/15/2016 De Quervain's tenosynovitis, right 03/26/2014 01/02/2017 Hypertension 03/23/2011 07/07/2015 Overview: Lipids through work 09/2010 TC 215, HDL 75, LDL 118, TG110, Gluc 89 Last Assessment & Plan: HTN: Ms. Akbar indicates that she is feeling well and denies any symptoms referable to elevated blood pressure. Specifically denies chest pain, palpitations, dyspnea and peripheral edema. Patient denies any side effects of her medication(s) and is compliant with their regimen. She does check BP's away from this office with average BP's in the 135/65 range. Bharti gets minimal exercise. She watches her diet for sodium, low fat and low cholesterol most of the time. 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 Special screening for malign ant neoplasms, colon 07/25/2005 07/06/2012 Unspecified constipation Diarrhea 03/23/2011 documented as of this encounter (statuses as of 10/13/2023) [facility] History of Past illness Narrative* Problem Noted Date Diagnosed Date Resolved Date Heberden's nodes 07/07/2015 09/15/2016 Iron deficiency anemia due t o chronic blood loss 03/06/2015 09/15/2016 De Quervain's tenosynovitis, right 03/26/2014 01/02/2017 Hypertension 03/23/2011 07/07/2015 Overview: Lipids through work 09/2010 TC 215, HDL 75, LDL 118, TG110, Gluc 89 Last Assessment & Plan: HTN: Ms. Akbar indicates that she is feeling well and denies any symptoms referable to elevated blood pressure. Specifically denies chest pain, palpitations, dyspnea and peripheral edema. Patient denies any side effects of her medication(s) and is compliant with their regimen. She does check BP's away from this office with average BP's in the 135/65 range. Bharti gets minimal exercise. She watches her diet for sodium, low fat and low cholesterol most of the time. 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 Special screening for malign ant neoplasms, colon 07/25/2005 07/06/2012 Unspecified constipation Diarrhea 03/23/2011 documented as of this encounter (statuses as of 10/13/2023) [facility] History of Past illness Narrative* Problem Noted Date Diagnosed Date Resolved Date Heberden's nodes 07/07/2015 09/15/2016 Iron deficiency anemia due t o chronic blood loss 03/06/2015 09/15/2016 De Quervain's tenosynovitis, right 03/26/2014 01/02/2017 Hypertension 03/23/2011 07/07/2015 Overview: Lipids through work 09/2010 TC 215, HDL 75, LDL 118, TG110, Gluc 89 Last Assessment & Plan: HTN: Ms. Akbar indicates that she is feeling well and denies any symptoms referable to elevated blood pressure. Specifically denies chest pain, palpitations, dyspnea and peripheral edema. Patient denies any side effects of her medication(s) and is compliant with their regimen. She does check BP's away from this office with average BP's in the 135/65 range. Bharti gets minimal exercise. She watches her diet for sodium, low fat and low cholesterol most of the time. 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 Special screening for malign ant neoplasms, colon 07/25/2005 07/06/2012 Unspecified constipation Diarrhea 03/23/2011 documented as of this encounter (statuses as of 10/19/2023) [facility] History of Past illness Narrative* Problem Noted Date Diagnosed Date Resolved Date Heberden's nodes 07/07/2015 09/15/2016 Iron deficiency anemia due t o chronic blood loss 03/06/2015 09/15/2016 De Quernile's tenosynovitis, right 03/26/2014 01/02/2017 Hypertension 03/23/2011 07/07/2015 Overview: Lipids through work 09/2010 TC 215, HDL 75, LDL 118, TG110, Gluc 89 Last Assessment & Plan: HTN: Ms. Akbar indicates that she is feeling well and denies any symptoms referable to elevated blood pressure. Specifically denies chest pain, palpitations, dyspnea and peripheral edema. Patient denies any side effects of her medication(s) and is compliant with their regimen. She does check BP's away from this office with average BP's in the 135/65 range. Bharti gets minimal exercise. She watches her diet for sodium, low fat and low cholesterol most of the time. 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 Special screening for malign ant neoplasms, colon 07/25/2005 07/06/2012 Unspecified constipation Diarrhea 03/23/2011 documented as of this encounter (statuses as of 10/24/2023) [facility] History of Past illness Narrative* Problem Noted Date Diagnosed Date Resolved Date Heberden's nodes 07/07/2015 09/15/2016 Iron deficiency anemia due t o chronic blood loss 03/06/2015 09/15/2016 De Quernile's tenosynovitis, right 03/26/2014 01/02/2017 Hypertension 03/23/2011 07/07/2015 Overview: Lipids through work 09/2010 TC 215, HDL 75, LDL 118, TG110, Gluc 89 Last Assessment & Plan: HTN: Ms. Akbar indicates that she is feeling well and denies any symptoms referable to elevated blood pressure. Specifically denies chest pain, palpitations, dyspnea and peripheral edema. Patient denies any side effects of her medication(s) and is compliant with their regimen. She does check BP's away from this office with average BP's in the 135/65 range. Bharti gets minimal exercise. She watches her diet for sodium, low fat and low cholesterol most of the time. 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 Special screening for malign ant neoplasms, colon 07/25/2005 07/06/2012 Unspecified constipation Diarrhea 03/23/2011 documented as of this encounter (statuses as of 10/26/2023) [facility] History of Past illness Narrative* Problem Noted Date Diagnosed Date Resolved Date Heberden's nodes 07/07/2015 09/15/2016 Iron deficiency anemia due t o chronic blood loss 03/06/2015 09/15/2016 De Quervanhan's tenosynovitis, right 03/26/2014 01/02/2017 Hypertension 03/23/2011 07/07/2015 Overview: Lipids through work 09/2010 TC 215, HDL 75, LDL 118, TG110, Gluc 89 Last Assessment & Plan: HTN: Ms. Akbar indicates that she is feeling well and denies any symptoms referable to elevated blood pressure. Specifically denies chest pain, palpitations, dyspnea and peripheral edema. Patient denies any side effects of her medication(s) and is compliant with their regimen. She does check BP's away from this office with average BP's in the 135/65 range. Bharti gets minimal exercise. She watches her diet for sodium, low fat and low cholesterol most of the time. 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 Special screening for malign ant neoplasms, colon 07/25/2005 07/06/2012 Unspecified constipation Diarrhea 03/23/2011 documented as of this encounter (statuses as of 10/27/2023) [facility]2015 History of Past illness Narrative* Problem Noted Date Diagnosed Date Resolved Date Heberden's nodes 07/07/2015 09/15/2016 Iron deficiency anemia due t o chronic blood loss 03/06/2015 09/15/2016 De Quervain's tenosynovitis, right 03/26/2014 01/02/2017 Hypertension 03/23/2011 07/07/2015 Overview: Lipids through work 09/2010 TC 215, HDL 75, LDL 118, TG110, Gluc 89 Last Assessment & Plan: HTN: Ms. Akbar indicates that she is feeling well and denies any symptoms referable to elevated blood pressure. Specifically denies chest pain, palpitations, dyspnea and peripheral edema. Patient denies any side effects of her medication(s) and is compliant with their regimen. She does check BP's away from this office with average BP's in the 135/65 range. Bharti gets minimal exercise. She watches her diet for sodium, low fat and low cholesterol most of the time. 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 Special screening for malign ant neoplasms, colon 07/25/2005 07/06/2012 Unspecified constipation Diarrhea 03/23/2011 documented as of this encounter (statuses as of 10/31/2023) [facility] History of Past illness Narrative* Problem Noted Date Diagnosed Date Resolved Date Heberden's nodes 07/07/2015 09/15/2016 Iron deficiency anemia due t o chronic blood loss 03/06/2015 09/15/2016 De Quervain's tenosynovitis, right 03/26/2014 01/02/2017 Hypertension 03/23/2011 07/07/2015 Overview: Lipids through work 09/2010 TC 215, HDL 75, LDL 118, TG110, Gluc 89 Last Assessment & Plan: HTN: Ms. Akbar indicates that she is feeling well and denies any symptoms referable to elevated blood pressure. Specifically denies chest pain, palpitations, dyspnea and peripheral edema. Patient denies any side effects of her medication(s) and is compliant with their regimen. She does check BP's away from this office with average BP's in the 135/65 range. Bharti gets minimal exercise. She watches her diet for sodium, low fat and low cholesterol most of the time. 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 Special screening for malign ant neoplasms, colon 07/25/2005 07/06/2012 Unspecified constipation Diarrhea 03/23/2011 documented as of this encounter (statuses as of 11/01/2023) [facility] History of Past illness Narrative* Problem Noted Date Diagnosed Date Resolved Date Heberden's nodes 07/07/2015 09/15/2016 Iron deficiency anemia due t o chronic blood loss 03/06/2015 09/15/2016 De Quervain's tenosynovitis, right 03/26/2014 01/02/2017 Hypertension 03/23/2011 07/07/2015 Overview: Lipids through work 09/2010 TC 215, HDL 75, LDL 118, TG110, Gluc 89 Last Assessment & Plan: HTN: Ms. Akbar indicates that she is feeling well and denies any symptoms referable to elevated blood pressure. Specifically denies chest pain, palpitations, dyspnea and peripheral edema. Patient denies any side effects of her medication(s) and is compliant with their regimen. She does check BP's away from this office with average BP's in the 135/65 range. Bharti gets minimal exercise. She watches her diet for sodium, low fat and low cholesterol most of the time. 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 Special screening for malign ant neoplasms, colon 07/25/2005 07/06/2012 Unspecified constipation Diarrhea 03/23/2011 documented as of this encounter (statuses as of 11/05/2023) [facility] History of Past illness Narrative* Problem Noted Date Diagnosed Date Resolved Date Heberden's nodes 07/07/2015 09/15/2016 Iron deficiency anemia due t o chronic blood loss 03/06/2015 09/15/2016 De Quervanhan's tenosynovitis, right 03/26/2014 01/02/2017 Hypertension 03/23/2011 07/07/2015 Overview: Lipids through work 09/2010 TC 215, HDL 75, LDL 118, TG110, Gluc 89 Last Assessment & Plan: HTN: Ms. Akbar indicates that she is feeling well and denies any symptoms referable to elevated blood pressure. Specifically denies chest pain, palpitations, dyspnea and peripheral edema. Patient denies any side effects of her medication(s) and is compliant with their regimen. She does check BP's away from this office with average BP's in the 135/65 range. Bharti gets minimal exercise. She watches her diet for sodium, low fat and low cholesterol most of the time. 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 Special screening for malign ant neoplasms, colon 07/25/2005 07/06/2012 Unspecified constipation Diarrhea 03/23/2011 documented as of this encounter (statuses as of 11/16/2023) [facility] [place] [facility]* Diagnosis Coronary artery disease, unspecified vessel or lesion type, unspecified whether angina present, unspecified whether tejon or transplanted heart- Primary Post PTCA Postsurgical percutaneous transluminal coronary angioplasty status documented in this encounter [place] note* Diagnosis Chest pain- Primary Unspecified chest pain S/P PTCA (percutaneous transluminal coronary angioplasty) Postsurgical percutaneous transluminal coronary angioplasty status [facility] [place] [facility]* Diagnosis Coronary artery disease involving tejon coronary artery of tejon heart, unspecified whether angina present [facility] [place] [facility]* Diagnosis Medicare annual wellness visit, subsequent- Primary Routine general medical examination at a health care facility Essential hypertension Unspecified essential hypertension 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 documented in this encounter [facility] note* Diagnosis Onset Date Resolution Status C. difficile colitis acute GI bleed acute Ischemic colitis acute Segmental colitis associated with diverticulosis acute Chest tightness acute HLD (hyperlipidemia) acute SOB (shortness of breath) ac [place] Aortic insufficiency chronic Atherosclerotic heart diseas e of tejon coronary artery without angina pectoris chronic Essential hypertension chron ic Presence of stent in coronary artery April, chronic Palpitations resolved C. difficile colitis acute GI bleed acute Diarrhea acute GI bleed acute Ischemic colitis acute Fall acute Aortic valve disease chronic Atherosclerotic heart diseas e of tejon coronary artery without angina pectoris chronic Essential hypertension chron ic Presence of stent in coronary artery April, [facility] Work Phone: Evaluation note* Diagnosis Onset Date Resolution Status Diarrhea acute GI bleed acute Ischemic colitis acute Fall acute Aortic valve disease chronic Atherosclerotic heart diseas e of tejon coronary artery without angina pectoris chronic Essential hypertension chron ic Presence of stent in coronary artery April, chronic Diarrhea acute History of GI bleed chronic Fatigue chronic Iron deficiency anemia due to chronic blood loss chronic Lung nodule, multiple chroni c [facility] Work Phone: Evaluation note* Diagnosis Onset Date Resolution Status Diarrhea acute History of GI bleed chronic Fatigue chronic Iron deficiency anemia due to chronic blood loss chronic Lung nodule, multiple chroni c Dysphagia acute Hoarseness of voice acute Weakness acute Fatigue chronic Iron deficiency anemia due to chronic blood loss [facility] Work Phone: Evaluation note* Diagnosis Postsurgical hypothyroidism- Primary Anxiety with depression Chronic insomnia Insomnia, unspecified Essential hypertension Unspecified essential hypertension Hyperlipidemia, unspecified hyperlipidemia type documented [facility] this encounter [facility] [place] [facility]* Diagnosis Onset Date Resolution Status Dysphagia acute Hoarseness of voice acute Weakness acute Fatigue chronic Iron deficiency anemia due to chronic blood loss chronic Chest tightness acute SOB (shortness of breath) ac [place] Aortic valve disease chronic Essential hypertension chron ic Fatigue chronic Presence of stent in coronary artery April, [facility] Work Phone: Evaluation note* Diagnosis Postsurgical hypothyroidism- Primary [facility] [place] [facility] Diagnosis Postsurgical hypothyroidism [facility] [place] [facility]* Diagnosis Postsurgical hypothyroidism- Primary [facility] [place] [facility]* Diagnosis Postsurgical hypothyroidism- Primary documented [facility] [place] [facility]* Diagnosis Onset Date Resolution Status Chest tightness acute Palpitations acute SOB (shortness of breath) ac [place] Aortic valve disease chronic Essential hypertension chron ic Fatigue chronic Presence of stent in coronary artery April, chronic Bloating acute CAD (coronary artery disease) acute Chest tightness acute HLD (hyperlipidemia) acute Palpitations acute SOB (shortness of breath) ac [place] Angina pectoris chronic Aortic valve disease chronic Bilateral carotid artery stenosis chronic Essential hypertension chron ic Fatigue chronic Presence of stent in coronary artery April, [facility] Work Phone: evaluation note* Diagnosis Postsurgical hypothyroidism documented [facility] [place] [facility]* Diagnosis Onset Date Resolution Status CAD (coronary artery disease) acute Chest tightness acute HLD (hyperlipidemia) acute Palpitations acute SOB (shortness of breath) ac [place] Angina pectoris chronic Aortic valve disease chronic Bilateral carotid artery stenosis chronic Essential hypertension chron ic Fatigue chronic Presence of stent in coronary artery April, chronic HLD (hyperlipidemia) acute Palpitations acute SOB (shortness of breath) ac [place] Angina pectoris chronic Aortic valve disease chronic Bilateral carotid artery stenosis chronic Essential hypertension chron ic Fatigue chronic Presence of stent in coronary artery April, [facility] Work Phone: evaluation note* Diagnosis Chronic right-sided low back pain, unspecified whether sciatica present- Primary Hypothyroidism, acquired Unspecified hypothyroidism [facility] [place] [facility]* Diagnosis Postsurgical hypothyroidism [facility] [place] [facility]* Diagnosis Hypothyroidism, acquired- Primary Unspecified hypothyroidism documented [facility] this [facility] [place] [facility]* Diagnosis 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- Primary Balance problem Other symptoms involving nervous and musculoskeletal systems Essential hypertension Unspecified essential hypertension Hyperlipidemia, unspecified hyperlipidemia type Postsurgical hypothyroidism Anxiety with depression Trouble in sleeping Sleep disturbance, unspecified Pain in lower jaw Jaw pain Risk for falls Personal history of fall Memory loss Ischemic colitis (HCC) Unspecified vascular insufficiency of intestine Segmental colitis associated with diverticulosis (HCC) Angina pectoris (HCC) Other and unspecified angina pectoris [facility] [place] [facility]* Diagnosis Essential hypertension- Primary Unspecified essential hypertension Balance problem Other symptoms involving nervous and musculoskeletal systems Dizziness Dizziness and giddiness Decreased muscle strength Muscle weakness (generalized) Dark urine Other nonspecific finding on examination of urine Generalized pain documented [facility] this encounter [facility] [place] [facility]* Diagnosis Postsurgical hypothyroidism- Primary documented [facility] this encounter [facility] [place] [facility]* Diagnosis Encounter for screening mammogram for malignant neoplasm of breast- Primary Other screening mammogram documented [facility] this [facility] [place] [facility]* Diagnosis Fall, initial encounter- Primary Concussion without loss of consciousness, initial encounter Injury of head, initial encounter Acute pain of right knee Contusion of cheek, initial encounter Memory loss documented [facility] this [facility] [place] [facility]* Diagnosis Acute pain of right knee documented [facility] this encounter [facility] [place] [facility]* Diagnosis Fall, initial encounter Contusion of cheek, initial encounter documented [facility] this encounter [facility] [place] [facility]* Diagnosis Injury of head, initial encounter documented in this encounter [facility] [place] [facility]* Diagnosis Onset Date Resolution Status CAD (coronary artery disease) chronic Carotid artery disease chron ic Dyslipidemia chronic Essential hypertension chron ic Carotid artery disease chron ic [facility] Work Phone: Evaluation note* Diagnosis Foot pain, left- Primary Pain in limb Abrasion of right knee, initial encounter documented [facility] this encounter [facility] [place] [facility]* Diagnosis Blister- Primary Other, multiple, and unspecified sites, blister, without mention of infection Foot pain, left Pain in limb Fall, initial encounter documented in this encounter [facility] [place] [facility]* Diagnosis Postsurgical hypothyroidism- Primary [facility] [place] [facility]* Diagnosis Left foot pain- Primary Pain in soft tissues of limb Callus of foot Corns and callosities Chronic pain of both knees documented in this encounter [place] note* Diagnosis Hypothyroidism, acquired- Primary Unspecified hypothyroidism documented [facility] this encounter [facility] [place] [facility]* Diagnosis Primary osteoarthritis of both knees- Primary Chronic pain of both knees documented in this encounter [place] note* Diagnosis Onset Date Resolution Status Carotid artery disease chron ic [facility] Work Phone: Evaluation note* Diagnosis Microscopic hematuria- Primary Calcium oxalate crystals in urine Other nonspecific finding on examination of urine documented [facility] this encounter [facility] [place] [facility]* Diagnosis Kidney stone- Primary Calculus of kidney documented in this encounter [facility] [place] [facility]* Diagnosis Microscopic hematuria Calcium oxalate crystals in urine Other nonspecific finding on examination of urine documented [facility] this [facility] [place] [facility]* Diagnosis Kidney stone- Primary Calculus of kidney Urgency of urination documented in this encounter [facility] note* Diagnosis Onset Date Resolution Status CAD (coronary artery disease) chronic Carotid artery disease chron ic Dyslipidemia chronic Essential hypertension chron ic Ataxia acute Back pain acute Balance disorder acute Dysmetria acute Falls acute Gait disturbance acute Memory loss acute Systolic murmur acute [facility] Work Phone: Evaluation note* Diagnosis Balance problem- Primary Other symptoms involving nervous and musculoskeletal systems Fibromyalgia Mylagia and myositis, unspecified 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 Essential hypertension Unspecified essential hypertension Postsurgical hypothyroidism Kidney stone Calculus of kidney [facility] [place] [facility]* Diagnosis Fibromyalgia- Primary Mylagia and myositis, unspecified History of stroke Transient ischemic attack (TIA), and cerebral infarction without residual deficits Neuropathy Mononeuritis of unspecified site Imbalance Abnormality of gait Spinal stenosis of lumbar region, unspecified whether neurogenic claudication present [facility] [place] [facility]* Diagnosis Hospital discharge follow-up- Primary Other follow-up examination Ataxic gait Abnormality of gait Chronic midline low back pain without sciatica Myalgias Essential hypertension Unspecified essential hypertension [facility] [place] [facility]* Diagnosis Onset Date Resolution Status CAD (coronary artery disease) chronic Carotid artery disease chron ic Dyslipidemia chronic Essential hypertension chron ic Ataxia acute Back pain acute Balance disorder acute Dysmetria acute Falls acute Memory loss acute Systolic murmur acute CAD (coronary artery disease) chronic Carotid artery disease chron ic Dyslipidemia chronic Essential hypertension chron ic [facility] Work Phone: Evaluation note* Diagnosis Hypothyroidism, acquired Unspecified hypothyroidism [facility] [place] [facility]* Diagnosis Onset Date Resolution Status CAD (coronary artery disease) chronic Carotid artery disease chron ic Dyslipidemia chronic Essential hypertension chron ic Ataxia acute Back pain acute Balance disorder acute Dysmetria acute Falls acute Memory loss acute Systolic murmur acute CAD (coronary artery disease) chronic Carotid artery disease chron ic Dyslipidemia chronic Essential hypertension chron ic CVA (cerebral vascular accident) acute Migraine acute [facility] Work Phone: Evaluation note* Diagnosis Onset Date Resolution Status CAD (coronary artery disease) chronic Carotid artery disease chron ic Dyslipidemia chronic Essential hypertension chron ic Ataxia acute Back pain acute Balance disorder acute Dysmetria acute Falls acute Memory loss acute Systolic murmur acute CAD (coronary artery disease) chronic Carotid artery disease chron ic Dyslipidemia chronic Essential hypertension chron ic Aphasia acute Headache acute URI (upper respiratory infection) acute [facility] Work Phone: Evaluation note* Diagnosis Hypothyroidism, acquired Unspecified hypothyroidism [facility] [place] [facility]* Diagnosis Hospital discharge follow-up- Primary Other follow-up examination Complicated migraine Migraine with aura, without mention of intractable migraine without mention of status migrainosus URI, acute Acute upper respiratory infections of unspecified site Anxiety with depression Hypothyroidism, acquired Unspecified hypothyroidism Essential hypertension Unspecified essential hypertension [facility] [place] [facility]* Diagnosis Dementia without behavioral disturbance, psychotic disturbance, mood disturbance, or anxiety, unspecified dementia severity, unspecified dementia type (HCC)- Primary Lacunar infarction (HCC) Unspecified cerebral artery occlusion with cerebral infarction Intracranial vascular stenosis Cerebrovascular disease, unspecified Unsteadiness Abnormality of gait Frequent falls Personal history of fall Headaches [facility] [place] [facility]* Diagnosis Hoarse- Primary Dysphonia [facility] [place] [facility]* Diagnosis Urinary incontinence, unspecified type- Primary Essential hypertension Unspecified essential hypertension Dementia without behavioral disturbance (HCC) Dementia, unspecified, without behavioral disturbance [facility] [place] [facility]* Diagnosis Acute cystitis with hematuria- Primary Acute cystitis Flank pain Abdominal pain, unspecified site Ataxic gait Abnormality of gait Hypothyroidism, acquired Unspecified hypothyroidism Essential hypertension Unspecified essential hypertension documented in this encounter [facility] note* Diagnosis Hypertension- Primary Unspecified essential hypertension Migraine variant Variants of migraine, not elsewhere classified, without mention of intractable migraine without mention of status migrainosus Esophageal reflux Postsurgical hypothyroidism Postsurgical hypothyroidism- Primary Chronic pain Other chronic pain Abdominal bloating Flatulence, eructation, and gas pain Palpitations Esophageal reflux- Primary Hypertension Unspecified essential hypertension Postsurgical hypothyroidism Contact dermatitis Contact dermatitis and other eczema, due to unspecified cause Depressive disorder, not elsewhere classified- Primary Essential hypertension Unspecified essential hypertension Postsurgical hypothyroidism Need for hepatitis C screening test Special screening examination for other specified viral diseases Gastroesophageal reflux disease without esophagitis Esophageal reflux Dementia without behavioral disturbance, psychotic disturbance, mood disturbance, or anxiety, unspecified dementia severity, unspecified dementia type (HCC) documented in this encounter [facility] note* Diagnosis Hypertension- Primary Unspecified essential hypertension Migraine variant Variants of migraine, not elsewhere classified, without mention of intractable migraine without mention of status migrainosus Esophageal reflux Postsurgical hypothyroidism Postsurgical hypothyroidism- Primary Chronic pain Other chronic pain Abdominal bloating Flatulence, eructation, and gas pain Palpitations Esophageal reflux- Primary Hypertension Unspecified essential hypertension Postsurgical hypothyroidism Contact dermatitis Contact dermatitis and other eczema, due to unspecified cause Depressive disorder, not elsewhere classified- Primary Essential hypertension Unspecified essential hypertension Postsurgical hypothyroidism Need for hepatitis C screening test Special screening examination for other specified viral diseases Gastroesophageal reflux disease without esophagitis Esophageal reflux COVID-19 Acute cough documented in this encounter [facility] note* Diagnosis Hypertension- Primary Unspecified essential hypertension Migraine variant Variants of migraine, not elsewhere classified, without mention of intractable migraine without mention of status migrainosus Esophageal reflux Postsurgical hypothyroidism Postsurgical hypothyroidism- Primary Chronic pain Other chronic pain Abdominal bloating Flatulence, eructation, and gas pain Palpitations Esophageal reflux- Primary Hypertension Unspecified essential hypertension Postsurgical hypothyroidism Contact dermatitis Contact dermatitis and other eczema, due to unspecified cause Depressive disorder, not elsewhere classified- Primary Essential hypertension Unspecified essential hypertension Postsurgical hypothyroidism Need for hepatitis C screening test Special screening examination for other specified viral diseases Gastroesophageal reflux disease without esophagitis Esophageal reflux Foot pain, left Pain in limb documented in this encounter [facility] note* Diagnosis Hypertension- Primary Unspecified essential hypertension Migraine variant Variants of migraine, not elsewhere classified, without mention of intractable migraine without mention of status migrainosus Esophageal reflux Postsurgical hypothyroidism Postsurgical hypothyroidism- Primary Chronic pain Other chronic pain Abdominal bloating Flatulence, eructation, and gas pain Palpitations Esophageal reflux- Primary Hypertension Unspecified essential hypertension Postsurgical hypothyroidism Contact dermatitis Contact dermatitis and other eczema, due to unspecified cause Depressive disorder, not elsewhere classified- Primary Essential hypertension Unspecified essential hypertension Postsurgical hypothyroidism Need for hepatitis C screening test Special screening examination for other specified viral diseases Gastroesophageal reflux disease without esophagitis Esophageal reflux Encounter for Medicare annual wellness exam- Primary Routine general medical examination at a health care facility Fibromyalgia Mylagia and myositis, unspecified Myalgias History of stroke Transient ischemic attack (TIA), and cerebral infarction without residual deficits Imbalance Abnormality of gait Dementia without behavioral disturbance, psychotic disturbance, mood disturbance, or anxiety, unspecified dementia severity, unspecified dementia type (HCC) Urinary incontinence, unspecified type Encounter for screening examination for other mental health and behavioral disorders Sleep disorder Sleep disturbance, unspecified [facility] [place] [facility] Diagnosis Hypertension- Primary Unspecified essential hypertension Migraine variant Variants of migraine, not elsewhere classified, without mention of intractable migraine without mention of status migrainosus Esophageal reflux Postsurgical hypothyroidism Postsurgical hypothyroidism- Primary Chronic pain Other chronic pain Abdominal bloating Flatulence, eructation, and gas pain Palpitations Esophageal reflux- Primary Hypertension Unspecified essential hypertension Postsurgical hypothyroidism Contact dermatitis Contact dermatitis and other eczema, due to unspecified cause Depressive disorder, not elsewhere classified- Primary Essential hypertension Unspecified essential hypertension Postsurgical hypothyroidism Need for hepatitis C screening test Special screening examination for other specified viral diseases Gastroesophageal reflux disease without esophagitis Esophageal reflux Acute pain of right knee [facility] Hypertension- Primary Unspecified essential hypertension Migraine variant Variants of migraine, not elsewhere classified, without mention of intractable migraine without mention of status migrainosus Esophageal reflux Postsurgical hypothyroidism Postsurgical hypothyroidism- Primary Chronic pain Other chronic pain Abdominal bloating Flatulence, eructation, and gas pain Palpitations Esophageal reflux- Primary Hypertension Unspecified essential hypertension Postsurgical hypothyroidism Contact dermatitis Contact dermatitis and other eczema, due to unspecified cause Depressive disorder, not elsewhere classified- Primary Essential hypertension Unspecified essential hypertension Postsurgical hypothyroidism Need for hepatitis C screening test Special screening examination for other specified viral diseases Gastroesophageal reflux disease without esophagitis Esophageal reflux Bilateral hand pain Pain in limb [facility] [place] [facility] Diagnosis Hypertension- Primary Unspecified essential hypertension Migraine variant Variants of migraine, not elsewhere classified, without mention of intractable migraine without mention of status migrainosus Esophageal reflux Postsurgical hypothyroidism Postsurgical hypothyroidism- Primary Chronic pain Other chronic pain Abdominal bloating Flatulence, eructation, and gas pain Palpitations Esophageal reflux- Primary Hypertension Unspecified essential hypertension Postsurgical hypothyroidism Contact dermatitis Contact dermatitis and other eczema, due to unspecified cause Depressive disorder, not elsewhere classified- Primary Essential hypertension Unspecified essential hypertension Postsurgical hypothyroidism Need for hepatitis C screening test Special screening examination for other specified viral diseases Gastroesophageal reflux disease without esophagitis Esophageal reflux Left hip pain Pain in joint, pelvic region and thigh [facility] [place] [facility] Diagnosis Acute cystitis without hematuria- Primary Acute cystitis [facility] [place] [facility] Diagnosis Hypertension- Primary Unspecified essential hypertension Migraine variant Variants of migraine, not elsewhere classified, without mention of intractable migraine without mention of status migrainosus Esophageal reflux Postsurgical hypothyroidism Postsurgical hypothyroidism- Primary Chronic pain Other chronic pain Abdominal bloating Flatulence, eructation, and gas pain Palpitations Esophageal reflux- Primary Hypertension Unspecified essential hypertension Postsurgical hypothyroidism Contact dermatitis Contact dermatitis and other eczema, due to unspecified cause Depressive disorder, not elsewhere classified- Primary Essential hypertension Unspecified essential hypertension Postsurgical hypothyroidism Need for hepatitis C screening test Special screening examination for other specified viral diseases Gastroesophageal reflux disease without esophagitis Esophageal reflux Hypothyroidism, acquired Unspecified hypothyroidism documented in this encounter [facility] note* Diagnosis Hypertension- Primary Unspecified essential hypertension Migraine variant Variants of migraine, not elsewhere classified, without mention of intractable migraine without mention of status migrainosus Esophageal reflux Postsurgical hypothyroidism Postsurgical hypothyroidism- Primary Chronic pain Other chronic pain Abdominal bloating Flatulence, eructation, and gas pain Palpitations Esophageal reflux- Primary Hypertension Unspecified essential hypertension Postsurgical hypothyroidism Contact dermatitis Contact dermatitis and other eczema, due to unspecified cause Depressive disorder, not elsewhere classified- Primary Essential hypertension Unspecified essential hypertension Postsurgical hypothyroidism Need for hepatitis C screening test Special screening examination for other specified viral diseases Gastroesophageal reflux disease without esophagitis Esophageal reflux Fibromyalgia Mylagia and myositis, unspecified Myalgias Sleep disorder Sleep disturbance, unspecified [facility] [place] [facility] Diagnosis Hypertension- Primary Unspecified essential hypertension Migraine variant Variants of migraine, not elsewhere classified, without mention of intractable migraine without mention of status migrainosus Esophageal reflux Postsurgical hypothyroidism Postsurgical hypothyroidism- Primary Chronic pain Other chronic pain Abdominal bloating Flatulence, eructation, and gas pain Palpitations Esophageal reflux- Primary Hypertension Unspecified essential hypertension Postsurgical hypothyroidism Contact dermatitis Contact dermatitis and other eczema, due to unspecified cause Depressive disorder, not elsewhere classified- Primary Essential hypertension Unspecified essential hypertension Postsurgical hypothyroidism Need for hepatitis C screening test Special screening examination for other specified viral diseases Gastroesophageal reflux disease without esophagitis Esophageal reflux Dementia without behavioral disturbance, psychotic disturbance, mood disturbance, or anxiety, unspecified dementia severity, unspecified dementia type (HCC) [facility] [place] noteNo assessment information [facility]WSt. [facility] Work Phone: Evaluation note* Diagnosis Functional neurological symptom disorder (conversion disorder), with mixed symptoms- Primary documented in this encounter [facility] Work Phone: Evaluation note* Diagnosis Hypertension- Primary Unspecified essential hypertension Migraine variant Variants of migraine, not elsewhere classified, without mention of intractable migraine without mention of status migrainosus Esophageal reflux Postsurgical hypothyroidism Postsurgical hypothyroidism- Primary Chronic pain Other chronic pain Abdominal bloating Flatulence, eructation, and gas pain Palpitations Esophageal reflux- Primary Hypertension Unspecified essential hypertension Postsurgical hypothyroidism Contact dermatitis Contact dermatitis and other eczema, due to unspecified cause Depressive disorder, not elsewhere classified- Primary Essential hypertension Unspecified essential hypertension Postsurgical hypothyroidism Need for hepatitis C screening test Special screening examination for other specified viral diseases Gastroesophageal reflux disease without esophagitis Esophageal reflux Foot pain, right- Primary Pain in limb Weakness of foot, right documented in this encounter [facility] note* Diagnosis Hypertension- Primary Unspecified essential hypertension Migraine variant Variants of migraine, not elsewhere classified, without mention of intractable migraine without mention of status migrainosus Esophageal reflux Postsurgical hypothyroidism Postsurgical hypothyroidism- Primary Chronic pain Other chronic pain Abdominal bloating Flatulence, eructation, and gas pain Palpitations Esophageal reflux- Primary Hypertension Unspecified essential hypertension Postsurgical hypothyroidism Contact dermatitis Contact dermatitis and other eczema, due to unspecified cause Depressive disorder, not elsewhere classified- Primary Essential hypertension Unspecified essential hypertension Postsurgical hypothyroidism Need for hepatitis C screening test Special screening examination for other specified viral diseases Gastroesophageal reflux disease without esophagitis Esophageal reflux Foot pain, right Pain in limb Weakness of foot, right documented in this encounter [facility] note* Diagnosis Hypertension- Primary Unspecified essential hypertension Migraine variant Variants of migraine, not elsewhere classified, without mention of intractable migraine without mention of status migrainosus Esophageal reflux Postsurgical hypothyroidism Postsurgical hypothyroidism- Primary Chronic pain Other chronic pain Abdominal bloating Flatulence, eructation, and gas pain Palpitations Esophageal reflux- Primary Hypertension Unspecified essential hypertension Postsurgical hypothyroidism Contact dermatitis Contact dermatitis and other eczema, due to unspecified cause Depressive disorder, not elsewhere classified- Primary Essential hypertension Unspecified essential hypertension Postsurgical hypothyroidism Need for hepatitis C screening test Special screening examination for other specified viral diseases Gastroesophageal reflux disease without esophagitis Esophageal reflux Hypothyroidism, acquired- Primary Unspecified hypothyroidism documented in this encounter [facility] note* Diagnosis Hypertension- Primary Unspecified essential hypertension Migraine variant Variants of migraine, not elsewhere classified, without mention of intractable migraine without mention of status migrainosus Esophageal reflux Postsurgical hypothyroidism Postsurgical hypothyroidism- Primary Chronic pain Other chronic pain Abdominal bloating Flatulence, eructation, and gas pain Palpitations Esophageal reflux- Primary Hypertension Unspecified essential hypertension Postsurgical hypothyroidism Contact dermatitis Contact dermatitis and other eczema, due to unspecified cause Depressive disorder, not elsewhere classified- Primary Essential hypertension Unspecified essential hypertension Postsurgical hypothyroidism Need for hepatitis C screening test Special screening examination for other specified viral diseases Gastroesophageal reflux disease without esophagitis Esophageal reflux Neuropathy- Primary Mononeuritis of unspecified site Dementia without behavioral disturbance, psychotic disturbance, mood disturbance, or anxiety, unspecified dementia severity, unspecified dementia type (HCC) Unsteadiness Abnormality of gait Frequent falls Personal history of fall Lacunar infarction (HCC) Unspecified cerebral artery occlusion with cerebral infarction Right leg weakness Other musculoskeletal symptoms referable to limbs documented in this encounter [facility] note* Diagnosis Hypertension- Primary Unspecified essential hypertension Migraine variant Variants of migraine, not elsewhere classified, without mention of intractable migraine without mention of status migrainosus Esophageal reflux Postsurgical hypothyroidism Postsurgical hypothyroidism- Primary Chronic pain Other chronic pain Abdominal bloating Flatulence, eructation, and gas pain Palpitations Esophageal reflux- Primary Hypertension Unspecified essential hypertension Postsurgical hypothyroidism Contact dermatitis Contact dermatitis and other eczema, due to unspecified cause Depressive disorder, not elsewhere classified- Primary Essential hypertension Unspecified essential hypertension Postsurgical hypothyroidism Need for hepatitis C screening test Special screening examination for other specified viral diseases Gastroesophageal reflux disease without esophagitis Esophageal reflux Neuropathy Mononeuritis of unspecified site documented in this encounter [facility] note* Diagnosis Hypertension- Primary Unspecified essential hypertension Migraine variant Variants of migraine, not elsewhere classified, without mention of intractable migraine without mention of status migrainosus Esophageal reflux Postsurgical hypothyroidism Postsurgical hypothyroidism- Primary Chronic pain Other chronic pain Abdominal bloating Flatulence, eructation, and gas pain Palpitations Esophageal reflux- Primary Hypertension Unspecified essential hypertension Postsurgical hypothyroidism Contact dermatitis Contact dermatitis and other eczema, due to unspecified cause Depressive disorder, not elsewhere classified- Primary Essential hypertension Unspecified essential hypertension Postsurgical hypothyroidism Need for hepatitis C screening test Special screening examination for other specified viral diseases Gastroesophageal reflux disease without esophagitis Esophageal reflux Dementia without behavioral disturbance, psychotic disturbance, mood disturbance, or anxiety, unspecified dementia severity, unspecified dementia type (HCC) documented in this encounter [facility] note* Diagnosis Hypertension- Primary Unspecified essential hypertension Migraine variant Variants of migraine, not elsewhere classified, without mention of intractable migraine without mention of status migrainosus Esophageal reflux Postsurgical hypothyroidism Postsurgical hypothyroidism- Primary Chronic pain Other chronic pain Abdominal bloating Flatulence, eructation, and gas pain Palpitations Esophageal reflux- Primary Hypertension Unspecified essential hypertension Postsurgical hypothyroidism Contact dermatitis Contact dermatitis and other eczema, due to unspecified cause Depressive disorder, not elsewhere classified- Primary Essential hypertension Unspecified essential hypertension Postsurgical hypothyroidism Need for hepatitis C screening test Special screening examination for other specified viral diseases Gastroesophageal reflux disease without esophagitis Esophageal reflux Essential hypertension- Primary Unspecified essential hypertension 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 History of stroke Transient ischemic attack (TIA), and cerebral infarction without residual deficits Hypothyroidism, acquired Unspecified hypothyroidism Sleep disorder Sleep disturbance, unspecified Myalgias Dementia without behavioral disturbance, psychotic disturbance, mood disturbance, or anxiety, unspecified dementia severity, unspecified dementia type (HCC) Hyperlipidemia, unspecified hyperlipidemia type documented in this encounter [facility] note* Diagnosis Hypertension- Primary Unspecified essential hypertension Migraine variant Variants of migraine, not elsewhere classified, without mention of intractable migraine without mention of status migrainosus Esophageal reflux Postsurgical hypothyroidism Postsurgical hypothyroidism- Primary Chronic pain Other chronic pain Abdominal bloating Flatulence, eructation, and gas pain Palpitations Esophageal reflux- Primary Hypertension Unspecified essential hypertension Postsurgical hypothyroidism Contact dermatitis Contact dermatitis and other eczema, due to unspecified cause Depressive disorder, not elsewhere classified- Primary Essential hypertension Unspecified essential hypertension Postsurgical hypothyroidism Need for hepatitis C screening test Special screening examination for other specified viral diseases Gastroesophageal reflux disease without esophagitis Esophageal reflux Chronic pain of both knees- Primary Calcium pyrophosphate arthropathy Other disorder of calcium metabolism Fibromyalgia Mylagia and myositis, unspecified Essential hypertension Unspecified essential hypertension [facility] Diagnosis Hypertension- Primary Unspecified essential hypertension Migraine variant Variants of migraine, not elsewhere classified, without mention of intractable migraine without mention of status migrainosus Esophageal reflux Postsurgical hypothyroidism Postsurgical hypothyroidism- Primary Chronic pain Other chronic pain Abdominal bloating Flatulence, eructation, and gas pain Palpitations Esophageal reflux- Primary Hypertension Unspecified essential hypertension Postsurgical hypothyroidism Contact dermatitis Contact dermatitis and other eczema, due to unspecified cause Depressive disorder, not elsewhere classified- Primary Essential hypertension Unspecified essential hypertension Postsurgical hypothyroidism Need for hepatitis C screening test Special screening examination for other specified viral diseases Gastroesophageal reflux disease without esophagitis Esophageal reflux Dementia without behavioral disturbance, psychotic disturbance, mood disturbance, or anxiety, unspecified dementia severity, unspecified dementia type (HCC) [facility] Author Tahira Meadows [facility] November 13, 2023 6:54pm Note Date/Time November 13, 2023 6:22 pm [facility] Medical Records Department [address] [place] [address] H&P Exam - Hospitalist 11/13/235 MR#: [id number] Acct: [id number] Name: BHARTI AKBAR Rep #:[id number] : [id number] From: Tahira Meadows DO PCP: Dr. Armando Orozco MD Status:RE G ER Location: ED HPI - General General Date of Admission: 11/13/23 Date of Service: 11/13/23 Chief Complaint: ataxia and back pain HPI Narrative BHARTI AKBAR, is a 78 F who presented initially to the emergency department forback pain and leg pain that has been ongoing. She has been seeing a [facility], Dr. Granger, who has ordered a lumbar spine MRI and there is evidently been some issues with her getting it scheduled and she wantedto get it scheduled here however the ER physician was more concerned on her physical exam as she is having some memory loss, ataxia, dysmetria, falls (3 within the last 1 to 2 months), word finding issues and shakiness of speech. She states she has had a lot of the symptoms for about the last year but they progressively gotten worse. She states she is afraid to speak to people at workbecause she is afraid she will say the wrong thing and it has become problematicon a daily basis. On exam she has ataxia with past-pointing, tremor that is fine at rest, shaky speech with intermittent word finding problems and she is hyperreflexic on exam. She is overall fairly poor historian. She does state that she used to love to dance and she was at her granddaughter's wedding recently and was not even able to dance due to her symptoms. She states her neurologist thought maybe she was having some dementia and has placed her on donepezil recently. She has not noticed any change. Vital signs on presentation show a temperature of 97.8, heart rate 78, blood pressure was 148/100, respiratory was 16 oxygen saturations are 96% on room air. CBC is completely unremarkable. Coags are normal. Her chemistry panel is overtly unremarkable. Troponin was 8. CTA of the head and neck was unremarkable for any acute findings. Chest x-ray was unremarkable for any acutefindings. 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 difficile colitis Carotid artery bruit Carotid stenosis, right Cataracts, bilateral Chest pain Chronic headache Colitis Constipation Diarrhea Diarrhea Diastolic dysfunction Dysphagia Essential hypertension Family history of premature coronary heart disease Fatigue GERD (gastroesophageal reflux disease) GI bleed GI problem Hearing problem History of GI bleed HLD (hyperlipidemia) Hypothyroidism Hypothyroidism Insomnia Iron deficiency anemia due to chronic blood loss Ischemic colitis skilled nursing use of drug Lung nodule, multiple Migraines Non-smoker Nonspecific abnormal serum enzyme levels Osteoarthritis Palpitations Peptic ulcer disease Presence of stent in coronary artery (~04/19/21) Seasonal allergies Segmental colitis associated with diverticulosis Thyroid dysfunction TIA (transient ischemic attack) Ventricular hypertrophy Vision problem Home Medications levothyroxine 100 mcg tablet 100 mcg PO DAILY thyroid 04/28/21 [History Last Taken 07/28/21] trazodone 50 mg tablet 100 mg PO QHS sleep 05/04/22 [History Last Taken Unknown] potassium chloride 20 mEq tablet,extended release 20 meq PO DAILY supplement #90tabs 05/26/22 [Rx Last Taken Unknown] carvedilol 6.25 mg tablet (Coreg) 6.25 mg PO BID #60 tabs 10/16/23 [Rx Last Taken Unknown] colestipol 1 gram tablet (Colestid) 1 g PO BID 10/16/23 [History Last Taken Unknown] donepezil 5 mg tablet 5 mg PO DAILY 10/16/23 [History Last Taken Unknown] lisinopril 10 mg tablet 20 mg PO DAILY blood pressure 10/16/23 [History Last Taken Unknown] atorvastatin 40 mg tablet 40 mg PO QHS 11/13/23 [History Last Taken Unknown] famotidine 20 mg tablet 20 mg PO DAILY 11/13/23 [History Last Taken Unknown] metoprolol tartrate 25 mg tablet 25 mg PO Q12H 11/13/23 [History Last Taken Unknown] tamsulosin 0.4 mg capsule 0.4 mg PO DAILY 11/13/23 [History Last Taken Unknown] Allergy/AdvReac Type Severity Reaction Status Date / Time albuterol Allergy Intermediate GI upset Verified 11/13/23 13:02 cyclobenzaprine Allergy Intermediate mental Verified 11/13/23 13:02 [From Flexeril] status change hydrocodone [From Vicodin] Allergy Intermediate muscle Verified 11/13/23 13:02 twitching oxycodone Allergy Intermediate Vomiting Verified 11/13/23 13:02 amoxicillin Allergy Mild Swelling Verified 11/13/23 13:02 clindamycin Allergy Mild Swelling Verified 11/13/23 13:02 diatrizoate meglumine Allergy Mild Itching Verified 11/13/23 13:02 Tetanus Vaccines and Toxoid Allergy Mild Hives Verified 11/13/23 13:02 codeine AdvReac Intermediate Nausea & Verified 11/13/23 13:02 Vomiting benzonatate AdvReac Mild Vomiting Verified 11/13/23 13:02 [From Tessalon Perles] hydrochlorothiazide AdvReac Mild intolerance Verified 11/13/23 13:02 [From Dyazide] triamterene [From Dyazide] AdvReac Mild intolerance Verified 11/13/23 13:02 erythromycin base AdvReac Nausea Verified 11/13/23 13:02 Family History Mother , Age 76 heart attack Myocardial infarction Heart disease Cardiomyopathy Hypertension Osteoporosis Father , Heart Disease Age 86 Heart disease Parkinson disease CVA (cerebral vascular accident) Hypertension Unknown Thyroid disorder Stomach ulcer Surgical History History of appendectomy History of colonoscopy (~08/2020) History of coronary artery stent placement History of esophagogastroduodenoscopy (EGD) (~08/2020) History of hysterectomy History of thyroidectomy Presence of coronary angioplasty implant and graft (~09/01/15) Social History household members: spouse Smoking Status: Never smoker alcohol intake: current alcohol intake frequency: holidays/special occasions only Alcohol type: wine substance use type: does not use diet: other caffeine: Yes Type: coffee Number of servings: 3 what type of physical activity do you participate in: walking frequency: 3-4 times per week seatbelt use: always do you feel safe at home: Yes ROS Constitutional Constitutional: Reports weakness; Denies anorexia, change in weight, chills, fatigue, fever(s), malaise, night sweats or other Eyes Eyes: Denies blurry vision, change in eye color, change in vision, discharge from eye(s), double vision, erythema, eye pain, loss of vision or other ENT HEENT: Denies abnormal hearing, dysphagia, ear pain, epistaxis, headache(s), hearing loss, nasal congestion, nasal discharge, post nasal drip, sinus pressure, sore throat or other Cardiovascular Cardiovascular: Denies chest pain, claudication, dyspnea on exertion, edema, lightheadedness, orthopnea, palpitations, paroxysmal nocturnal dyspnea, rapid heart rate, syncope or other Respiratory/Chest Respiratory/Chest: Denies cough, dyspnea, excessive phlegm production, hemoptysis, productive cough, shortness of breath at rest, shortness of breath with exertion, wheezing or other Gastrointestinal Gastrointestinal: Denies abdominal pain, coffee ground emesis, constipation, diarrhea, dyspepsia, hematemesis, hematochezia, loose stools, melena, nausea, vomiting or other Genitourinary Genitourinary: Denies burning urination, difficulty urinating, dysuria, hematuria, nocturia, urinary frequency, urinary hesitancy, urinary incontinence,urinary urgency or other Musculoskeletal Musculoskeletal: Reports back pain and neck pain Neurologic Neurologic: Reports abnormal gait, abnormal speech, confusion, disequilibrium, tremor(s) and other Details: Difficulty walking ; Denies dizziness, focal weakness, headache(s), numbness, paresthesias, seizure- like activity, seizures, syncope or tingling Psychiatric Psychiatric: Denies anxiety, depression, homicidal ideation, suicidal ideation or other Endocrine Endocrinology: Denies change in body appearance, cold intolerance, excessive sweating, heat intolerance, polydipsia, polyuria or other Hematologic/Lymphatic Hematologic/Lymphatic: Denies anemia, easy bleeding, easy bruising, lymphadenopathy or other Allergic/Immunologic Allergic/Immunologic: Denies rhinitis, hives, eczemia, asthma or other Vital Signs Vital Signs Vital Signs: 11/13/23 13:02 11/13/23 14:55 11/13/23 14:30 Temperature 97.8 F Temperature Source Temporal Pulse Rate 78 73 Respiratory Rate 16 22 H Blood Pressure 148/100 H 229/67 H Blood Pressure Mean 116 112 Pulse Ox 96 Oxygen Delivery Method Room Air Room Air 11/13/23 15:30 11/13/23 16:20 11/13/23 16:34 Temperature Temperature Source Pulse Rate 59 L 80 71 Respiratory Rate 12 14 19 H Blood Pressure 168/81 H 170/96 H Blood Pressure Mean 108 103 Pulse Ox 97 98 Oxygen Delivery Method 11/13/23 17:00 Temperature Temperature Source Pulse Rate Respiratory Rate Blood Pressure 184/70 H Blood Pressure Mean 105 Pulse Ox Oxygen Delivery Method Weight Weight: 52.163 kg Body Mass Index (BMI) 20.3 Physical Exam Const alert, oriented x3, no apparent distress, average body habitus and well nourished; Negative for healthy appearing Constitutional Narrative: Anxious appearing, elderly, white female, sitting up in bed, voice is shaky withintermittent word finding difficulties, patient has a fine tremor, appears nontoxic and currently comfortable General Appearance: cooperative HEENT normocephalic, head/scalp atraumatic, hearing grossly normal bilaterally and moist oral mucous membranes Eyes PERRL, EOMs intact bilaterally and conjunctivae normal Eyes Narrative: No scleral icterus Neck no lymphadenopathy and supple Neck Narrative: Bilateral carotid bruits, trachea midline, no thyroid enlargement Resp normal respiratory effort, no retractions, no use of accessory muscles and clearto auscultation bilaterally Auscultation: Negative for rales, rhonchi or wheezes Cardio regular rate, regular rhythm, S1 normal heart sound, S2 normal heart sound, no rub, no gallops and no clicks; Negative for no murmurs Cardio Narrative: Intermittent ectopy, 3 out of 6 systolic murmur loudest at right upper sternal border GI normal to inspection, nondistended, normoactive bowel sounds, soft to palpation and non-tender Extremity no clubbing, cyanosis or edema Extremity Narrative: Pedal pulses and radial pulses are 2+ Skin no rashes or lesions noted, no wounds, skin turgor normal, no petechiae and no mottling Neuro oriented x3, CN's II-XII intact bilaterally and moves all extremities Neuro Narrative: Is able to move right leg but has difficulty moving it due to pain, reflexes arevery brisk 4+ bilateral upper and lower extremities, fine tremor noted on exam, patient with word finding difficulties intermittently and decreased attention totask, no focal deficits noted but patient does have significant generalized weakness Speech: Negative for speech normal Motor Exam: Negative for strength 5/5 throughout Psych Psych Narrative: Affect is flat and patient seems anxious Results Lab / Micro Data Attestation: I reviewed the patient's lab results. 11/13/23 15:03 11/13/23 15:03 Labs: Laboratory Results - last 24 hr 11/13/23 15:03: WBC 5.5, RBC 4.68, Hgb 14.2, Hct 42.0, MCV 89.7, MCH 30.3, MCHC 33.8, RDW Std Deviation 41.2, RDW Coeff of Jase 12.4, Plt Count 269, MPV 8.2, Immature Gran % (Auto) 0.200, Neut % (Auto) 65.7, Lymph % (Auto) 23.1, [place] % (Auto) 8.9, Eos % (Auto) 1.6, Baso % (Auto) 0.5, Absolute Neuts (auto) 3.6, Absolute Lymphs (auto) 1.27, Nucleated RBC % 0, PT 13.1, INR 1.0, APTT 29.4, Sodium 141, Potassium 3.5, Chloride 110 H, Carbon Dioxide 30.0, Anion Gap 1 L, BUN 19 H, Creatinine 0.92, Estim Creat Clear Calc 40.83, Est GFR (MDRD) Af Amer 76, Est GFR (MDRD) Non-Af 63, BUN/Creatinine Ratio 20.7 H, Glucose 99, Calcium 9.2, Troponin I High Sens 8 Imaging Radiology Impression Head/Neck CTA 11/13/23 14:48 IMPRESSION: No acute intracranial findings. No significant major vessel vaso-occlusive disease in the head or neck. No significant interval change from the prior study. Electronically Signed: Aris Soares MD at 16:44 EST , Chest X-Ray 11/13/23 16:05 IMPRESSION: No radiographic evidence of acute cardiopulmonary disease. Electronically Signed: Aris Soares MD at 17:13 EST , Assessment & Plan Assessment/Plan (1) Ataxia: (2) Back pain: (3) Falls: (4) Dysmetria: (5) Memory loss: (6) Systolic murmur: (7) Gait disturbance: (8) Balance disorder: PLAN: Plan Ataxia/dysmetria/memory loss/gait disturbance/balance disorder -Highly doubtful for stroke but will rule out and follow protocol for now -Suspect upper motor neuron lesions as she has significant hyperreflexia -Significant tremor noted on exam as well -Add aspirin 81 mg daily -Check lipids -Continue home statin -Check TSH -Check MRI of the cervical spine and brain with and without contrast -Consult neurology Systolic murmur -Check echocardiogram Chronic low back pain with radicular symptoms -Discussed with patient and there is no acute changes at this time -No change in bowel bladder -Recommend proceeding with outpatient lumbar spine MRI as previously ordered CAD/HPL/HTN/carotid artery disease -Previous PCI in 2014 -Patient currently not on any antiplatelet therapy but will start aspirin for the above -Continue home atorvastatin and check lipids -Continue home colestipol -Hold home antihypertensives until stroke can be ruled out then reinitiate if negative -PRNs per stroke protocol are available GERD/history of peptic ulcer disease -Continue home famotidine Hypothyroidism -Continue home levothyroxine -Check TSH Memory impairment -Continue home donepezil DVT prophylaxis -Lovenox daily CODE STATUS -Full code is verified on admission Charges/Coding Visit Charges Inpatient E&M: 19840 Init Hosp L2 11/13/23 1209 <Electronically signed by Tahira Meadows DO> Cosigner Signature (if applicable): CC: Dr. Tahira Meadows DO; Dr. Armando Orozco MD~ Signed [facility] Work Phone: History of Present illness Narrative* BHARTI AKBAR is a 76 year female referred to me today by Dr. Armando Tian for spasmodic dysphonia. She received the Rheonix COVID vaccine and had adverse effects. She has pitch breaks and tremor with phonation that worsen with effort. The patient works and reports this is impacting her ability to communicate. * The patient has changes in her swallow as well. She had a MBS at [facility] and reports that it was normal. She has a sensation of tightness in the throat. * She is snoring at night and reports that no one let her know the results. * FHx: reviewed and non-contributory to current complaint. * I personally reviewed the patient AEMR notes, and consult notes * ROS performed. All other systems are reviewed and are negative for complaint and as noted above. [facility] Work Phone: History of Present illness Narrative* Voice assessment: * Patient presents with dysphonia 2/2 a diagnosis of adductor spasmodic dysphonia with tremor. Patient appears to be an excellent candidate for Botox treatment and therapy which will target ongoing diagnostic therapy to help direct Botox treatments for for voice rebalancing as needed 2/2 significant M TD. Patient stated she would like to think about it 2/2 long travel demand. Suggested we start witha virtual speech therapy to discuss further and initiate voice retraining. Patient to call to schedule per her request. * Voice quality based on the GRBAS scale: 0=absent; 1=mild; 2=moderate; 3=severe * Grade: 2 * Roughness: 2 * Breathiness: 0 * Asthenia: 0 * Strain: 2 * Contributing Factors: supraglottic compression , decreased neuromuscular control of speech/swallow muscles and habitual behaviors that misuse/abuse the voice * NOMS Score: moderate: level 4 * Treatment recommendations: treatment indicated (see goals below) [facility] [address] [place] Work Phone: History of Present illness Narrative* BHARTI AKBAR is a 76 year female referred to me today by Dr. 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 She received the JJCOVID vaccine and had adverse effects - perhaps some worsening of her voice at this time. She has pitch breaks and tremor with phonation that worsenwith effort. The patient works and reports this is impacting her ability to communicate at work and socially.. * The patient has changes in her swallow as well. She had a MBS at [facility] one year ago and reports that it was normal. She has a sensation of tightness in the throat. * She is snoring at night and reports that no one let her know the results of her sleep testing. * Seen recently by Dr Tian, FOL was unremarkable, but suggested SD. here for further evaluation. * FHx: reviewed and non-contributory to current complaint. * I personally reviewed the patient AEMR notes, and consult notes * ROS performed. All other systems are reviewed and are negative for complaint and as noted above. [facility] Work Phone: History of Present illness Narrative* arrives to outpatient PT c/o . Pt presents with the following impairments: . These impairments contribute to difficulty in activity limitations and participation restrictions including . Thept s signs and symptoms are consistent with likely . The pt will benefit from skilled PT ryyicqqd4s/week for 8 weeks to address the above stated impairments and functional limitations to maximize p articipation and ease in household, social, and work related activities. The pt has a prognosis when considering positive factors including with barriers such as . The pt verbalized understanding and agreement to goals and POC. Thank you for this referral and please call [phone] with any questions or concerns. * Clinical Presentation: Stable and/or uncomplicated characteristics. * Level of Complexity: low [facility] Work Phone: History of Present illness Narrative* Bharti Akbar, a 77 year old female arrives to outpatient PT c/o L shoulder and R hip pain. Pt presents with the following impairments: L shoulder and R hip pain, deficits in L shoulder AROM, deficits in B GH joint and periscapular musculature strength, deficits in B hip and knee musculature strength, and deficits in functional mobility per QDASH score. These impairments contribute to difficulty in activity limitations and participation restrictions including lifting, reaching, sleeping, stair climbing, ambulation, standing, and performing home and work duties. Due to increased paperwork time, patient will benefit from reassessment next session in order to finish evaluation and to add impairments from additional order of low back pain to current POC and for further treatment interventions. Patient also is traveling the next few weeks so POC will begin after vacation in 2-3 weeks. The pthas a fair prognosis when considering positive factors including motivation to complete PT interventions with barriers such as chronicity of pain. Pain at 4/10 at end of session The pt verbalized understanding and agreement to goals and POC. Thank you for this referral and please call [phone] with any questions or concerns. * Clinical Presentation: Stable and/or uncomplicated characteristics. * Level of Complexity: low [facility] Work Phone: History of Present illness Narrativethis patient fell since last visit-she took a tumble when her foot slipped on a hill in her yard; mild R>L leg length today (evaluation notation was corrected today); added to HEP and given handouts; no C/O rib nor R elbow pain with todays session except for R rib discomfort with pulleys (advised to reduce RUE elevation). [facility] Work Phone: History of Present illness NarrativePatient reports feeling confusion. Thinks its from her thyroid medication. Recommend that patient contact MD. Patient tolerated treatment without increased pain but reports tightness in hamstrings/piriformis area. Educated patient in supine and seated ther-ex for piriformis and hamstring stretches due to be flying out of state. Continue with left shoulder ROM, LE stretches to decrease pain and imp rove mobility to decrease fall risk. [facility] Work Phone: History of Present illness NarrativePatient identity confirmed today with name/. added to HEP and given handout; there was one fall since last visit (trip and fall so no addition to fall risk); reduced shldr discomfort with L shldr flexion PROM. [facility] Work Phone: History of Present illness NarrativePatient identity confirmed today with name/. added to HEP and given handout; there was one fall since last visit (trip and fall so no addition to fall risk); reduced shldr discomfort with L shldr flexion PROM. [facility] Work Phone: History of Present illness NarrativePatient identity confirmed today with name/. see goals; excellent ROM/strength gains throughout;all ADL tolerances have improved also. [facility] Work Phone: Reason for referral (narrative)* Diagnostic Procedure Only (Routine) - Pending Review Specialty Diagnoses / Procedures Referred By Jennifer jamison Referred To Contact BR IMAGING Diagnoses Encounter for screening mammogram for malignant neoplasm of breast Procedures KYA SCREENING SCREENING MAMMOGRAPHY BI 2-VIEW BREAST INC CAD Armando Orozco MD [address] [place] [address] Br Imaging [address] [facility] [place] [address] Referral ID Status Reason Start Date Expiration Date Visits Requested Visits Authorized [id number] Pending Review Auto-Generat ed Referral 04/17/2023 05/16/2024 [address] [facility] for referral (narrative)* Diagnostic Procedure Only (Urgent) - Closed Specialty Diagnoses / Procedures Referred By Jennifer jamison Referred To Contact XR IMAGING Diagnoses Foot pain, left Procedures XR FOOT GENERAL 3V AP/LAT/OBL LEFT RADEX FOOT COMPLETE MINIMUM 3 VIEWS Jose Keller APRN.PHARMACOVIGILANCE SAFETY EXPERT [address] [place] [address] [place] [address] Referral ID Status Reason Start Date Expiration Date V isits Requested Visits Authorized [id number] Closed Auto-Generate d Referral 05/05/2023 06/03/2024 [address] [facility] for referral (narrative)* Diagnostic Procedure Only (Urgent) - Authorized Specialty Diagnoses / Procedures Referred By Contac t Referred To Contact US IMAGING Diagnoses Microscopic hematuria Calcium oxalate crystals in urine Procedures US KIDNEY/BLADDER US RETROPERITONEAL REAL TIME W/IMAGE COMPLETE Emelia Lynn APRN.PHARMACOVIGILANCE SAFETY EXPERT [address] [place] [address] [place] [address] Referral ID Status Reason Start Date Expiration Date Visits Requested Visits Authorized [id number] Authorized Auto-Generat ed Referral 10/12/2023 11/10/2024 [address] [facility] for referral (narrative)* Diagnostic Procedure Only (Urgent) - Closed Specialty Diagnoses / Procedures Referred By Contac t Referred To Contact US IMAGING Diagnoses Microscopic hematuria Calcium oxalate crystals in urine Procedures US KIDNEY/BLADDER US RETROPERITONEAL REAL TIME W/IMAGE COMPLETE Emelia Lynn APRN.PHARMACOVIGILANCE SAFETY EXPERT [address] [place] [address] [place] [address] Referral ID Status Reason Start Date Expiration Date V isits Requested Visits Authorized [id number] Closed Auto-Generate d Referral 10/12/2023 11/10/2024 [address] [facility] for referral (narrative)* Diagnostic Procedure Only (Urgent) - Closed Specialty Diagnoses / Procedures Referred By Contac t Referred To Contact XR IMAGING Diagnoses Foot pain, left Procedures XR FOOT GENERAL 3V AP/LAT/OBL LEFT RADEX FOOT COMPLETE MINIMUM 3 VIEWS Jose Keller APRN.PHARMACOVIGILANCE SAFETY EXPERT [address] [place] [address] [place] [address] Referral ID Status Reason Start Date Expiration Date V isits Requested Visits Authorized [id number] Closed Auto-Generate d Referral 05/05/2023 06/03/2024 [address] [facility] for referral (narrative)* Diagnostic Procedure Only (Routine) - Closed Specialty Diagnoses / Procedures Referred By Contac t Referred To Contact XR IMAGING Diagnoses Acute pain of right knee Procedures XR KNEE GENERAL 4V AP BOTH/PA BOTH/LAT/MERC RIGHT RADIOLOGIC EXAM KNEE COMPLETE 4/MORE VIEWS Emelia Lynn, RELIABILITY TECHNICIAN.PHARMACOVIGILANCE SAFETY EXPERT [address] [place] [address] [place] [address] Referral ID Status Reason Start Date Expiration Date V isits Requested Visits Authorized [id number] Closed Auto-Generate d Referral 10/27/2021 11/26/2022 [address] [facility] for referral (narrative)* Diagnostic Procedure Only (Routine) - Closed Specialty Diagnoses / Procedures Referred By Contac t Referred To Contact XR IMAGING Diagnoses Bilateral hand pain Procedures XR HAND GENERAL 3V PA/LAT/OBL BILAT X-RAY HAND MINIMUM 3 VIEWS Katlin Hensley PA-C [address] [place] [address] [place] [address] Referral ID Status Reason Start Date Expiration Date V isits Requested Visits Authorized [id number] Closed Auto-Generate d Referral 04/13/2021 05/13/2022 [address] [facility] for referral (narrative)* Diagnostic Procedure Only (Routine) - Closed Specialty Diagnoses / Procedures Referred By Contac t Referred To Contact XR IMAGING Diagnoses Left hip pain Procedures XR HIP GENERAL 3V PELV/AP/LAT LT RADEX HIP UNILATERAL WITH PELVIS 2-3 VIEWS Meagan Gallegos RELIABILITY TECHNICIAN.PHARMACOVIGILANCE SAFETY EXPERT [address] [place] [address] [place] [address] Referral ID Status Reason Start Date Expiration Date V isits Requested Visits Authorized [id number] Closed Auto-Generate d Referral 04/13/2021 05/13/2022 [address] [facility] for referral (narrative)* Consultation (Routine) - Authorized Specialty Diagnoses / Procedures Referred By Contac t Referred To Contact Psychiatry / Behavioral Health Diagnoses Functional neurological symptom disorder (conversion disorder), with mixed symptoms Verónica Wallace MD PhD [address] [id number] Referral ID Status Reason Start Date Expiration Date Visits Requested Visits Authorized [id number] Authorized Consult and Treat 05/24/2024 05/24/2025 1 1 [facility] Work Phone: ReCognection for referral (narrative)* Diagnostic Procedure Only (Routine) - Closed Specialty Diagnoses / Procedures Referred By Contac t Referred To Contact XR IMAGING Diagnoses Foot pain, right Weakness of foot, right Procedures XR FOOT GENERAL 3V AP/LAT/OBL RIGHT RADEX FOOT COMPLETE MINIMUM 3 VIEWS Emelia Lynn APRN.PHARMACOVIGILANCE SAFETY EXPERT [address] [place] [address] [place] [address] Referral ID Status Reason Start Date Expiration Date V isits Requested Visits Authorized [id number] Closed Auto-Generate d Referral 09/19/2024 10/19/2025 1 1 * Consult, Test, Treat (Routine) - Authorized Specialty Diagnoses / Procedures Referred By Contac t Referred To Contact Podiatry Diagnoses Foot pain, right Weakness of foot, right Procedures CONSULT TO PODIATRY OFFICE/OUTPATIENT [facility]3] 60 MINUTES Emelia Lynn APRN.PHARMACOVIGILANCE SAFETY EXPERT [address] [place] [address] Referral ID Status Reason Start Date Expiration Date Visits Requested Visits Authorized [id number] Authorized PCP Requested Referral 09/19/2024 09/19/2025 [address] [facility] for referral (narrative)No reason for referral information [facility] Work Phone: Reason for visit Narrative* Initial Evaluation . L shoulder pain and R hip pain. * Referred by: Frank Langley PA-C [facility] Work Phone: reason for visit Narrative* Initial Evaluation . L shldr pain/impingement; LBP; R hi pain. * [facility] Work Phone: reason for visit Narrative* Diagnostic Procedure Only (Routine) - Closed Specialty Diagnoses / Procedures Referred By Contac t Referred To Contact XR IMAGING Diagnoses Acute pain of right knee Procedures XR KNEE GENERAL 4V AP BOTH/PA BOTH/LAT/MERC RIGHT RADIOLOGIC EXAM KNEE COMPLETE 4/MORE VIEWS Emelia Lynn, GLORIA.PHARMACOVIGILANCE SAFETY EXPERT [address] [place] [address] Xr Imaging Referral ID Status Reason Start Date Expiration Date V isits Requested Visits Authorized [id number] Closed Auto-Generate d Referral 04/20/2023 05/19/2024 [address] [facility] for visit Narrative* Diagnostic Procedure Only (Routine) - Closed Specialty Diagnoses / Procedures Referred By Contac t Referred To Contact XR IMAGING Diagnoses Fall, initial encounter Contusion of cheek, initial encounter Procedures XR FACIAL BONES 3V AP/LAT/DRISCOLL RADEX FACIAL BONES COMPLETE MINIMUM 3 VIEWS Emelia Lynn APRN.PHARMACOVIGILANCE SAFETY EXPERT [address] [place] [address] Xr Imaging Referral ID Status Reason Start Date Expiration Date V isits Requested Visits Authorized [id number] Closed Auto-Generate d Referral 04/20/2023 05/19/2024 [address] [facility] for visit Narrative* Diagnostic Procedure Only (Urgent) - Closed Specialty Diagnoses / Procedures Referred By Contac t Referred To Contact XR IMAGING Diagnoses Foot pain, left Procedures XR FOOT GENERAL 3V AP/LAT/OBL LEFT RADEX FOOT COMPLETE MINIMUM 3 VIEWS Jose Keller, RELIABILITY TECHNICIAN.PHARMACOVIGILANCE SAFETY EXPERT [address] [place] [address] [place] [address] Referral ID Status Reason Start Date Expiration Date V isits Requested Visits Authorized [id number] Closed Auto-Generate d Referral 05/05/2023 06/03/2024 [address] [facility] for visit Narrative* Diagnostic Procedure Only (Routine) - Closed Specialty Diagnoses / Procedures Referred By Contac t Referred To Contact XR IMAGING Diagnoses Acute pain of right knee Procedures XR KNEE GENERAL 4V AP BOTH/PA BOTH/LAT/MERC RIGHT RADIOLOGIC EXAM KNEE COMPLETE 4/MORE VIEWS Emelia Lynn, RELIABILITY TECHNICIAN.PHARMACOVIGILANCE SAFETY EXPERT [address] [place] [address] [place] [address] Referral ID Status Reason Start Date Expiration Date V isits Requested Visits Authorized [id number] Closed Auto-Generate d Referral 10/27/2021 11/26/2022 [address] [facility] for visit Narrative* Diagnostic Procedure Only (Routine) - Closed Specialty Diagnoses / Procedures Referred By Contac t Referred To Contact XR IMAGING Diagnoses Bilateral hand pain Procedures XR HAND GENERAL 3V PA/LAT/OBL BILAT X-RAY HAND MINIMUM 3 VIEWS Kaltin Hensley PA-C [address] [place] [address] [place] [address] Referral ID Status Reason Start Date Expiration Date V isits Requested Visits Authorized [id number] Closed Auto-Generate d Referral 04/13/2021 05/13/2022 [address] [facility] for visit Narrative* Diagnostic Procedure Only (Routine) - Closed Specialty Diagnoses / Procedures Referred By Contac t Referred To Contact XR IMAGING Diagnoses Left hip pain Procedures XR HIP GENERAL 3V PELV/AP/LAT LT RADEX HIP UNILATERAL WITH PELVIS 2-3 VIEWS Meagan Gallegos, RELIABILITY TECHNICIAN.PHARMACOVIGILANCE SAFETY EXPERT [address] [place] [address] [place] [address] Referral ID Status Reason Start Date Expiration Date V isits Requested Visits Authorized [id number] Closed Auto-Generate d Referral 04/13/2021 05/13/2022 [address] [facility] for visit Narrative* Diagnostic Procedure Only (Routine) - Closed Specialty Diagnoses / Procedures Referred By Jennifer jamison Referred To Contact XR IMAGING Diagnoses Foot pain, right Weakness of foot, right Procedures XR FOOT GENERAL 3V AP/LAT/OBL RIGHT RADEX FOOT COMPLETE MINIMUM 3 VIEWS Emelia Lynn, GLORIA.PHARMACOVIGILANCE SAFETY EXPERT [address] [place] [address] [place] [id number] Referral ID Status Reason Start Date Expiration Date V isits Requested Visits Authorized [id number] Closed Auto-Generate d Referral 09/19/2024 10/19/2025 [address] [facility] for visit Narrative* Outpatient Procedure (Routine) - Closed Specialty Diagnoses / Procedures Referred By Jennifer jamison Referred To Contact [facility] Diagnoses Neuropathy Procedures EMG(NEURO/NI) NERVE CONDUCTION STUDIES 9-10 STUDIES Maya Katz PA-C [address] [place] [address] Phone: tel: fax: Neurology [address] [place] [address] Phone: tel: Referral ID Status Reason Start Date Expiration Date V isits Requested Visits Authorized [id number] Closed Auto-Generate d Referral 11/05/2024 11/05/2025 1 1 [facility] Summary Purpose Family History Relationship Condition Age at Onset Recorded Date/T avinash mother Myocardial infarction Unknown Cardiac disease Unknown Cardiomyopathy Unknown Hypertension Unknown Osteoporosis Unknown father Cardiac disease Unknown Parkinson's disease Unknown Cerebrovascular accident (CVA) Unknown Not Specified Disorder of thyroid Unknown Gastric ulcer Unknown Relationship Condition Age at Onset Recorded Date/T avinash mother Myocardial infarction Unknown Cardiac disease Unknown Cardiomyopathy Unknown Hypertension Unknown Osteoporosis Unknown father Cardiac disease Unknown Parkinson's disease Unknown Cerebrovascular accident (CVA) Unknown unrelated friend Disorder of thyroid Unknown Gastric ulcer Unknown Advance Directives Documents on File Type Date Recorded 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 Advance Directives and Livin g Will 04/17/2021 2:45 PM Latest Code Status on File Code Status Date Activated Date Inactivated Comments Full Code 04/19/2021 2:27 PM Full Code 04/18/2021 12:40 AM 04/19/2021 2:27 PM Documents on File Type Date Recorded 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 Advance Directives and Livin g Will 04/17/2021 2:45 PM Latest Code Status on File Code Status Date Activated Date Inactivated Comments Full Code 04/19/2021 2:27 PM Full Code 04/18/2021 12:40 AM 04/19/2021 2:27 PM Latest Code Status on File Code Status Date Activated Date Inactivated Comments Full Code 04/19/2021 2:27 PM 04/21/2021 3:27 PM Documents on File Type Date Recorded 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 Advance Directives and Livin g Will 04/28/2021 9:53 AM Latest Code Status on File Code Status Date Activated Date Inactivated Comments Full Code 04/19/2021 2:27 PM 04/21/2021 3:27 PM Documents on File Type Date Recorded 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 Advance Directive(s) 10/07/2016 9:12 AM Advance Directive Response Recorded Date/ Time Advance Directives No August 12:59pm Living Will Yes August 29, 9:28pm Power of Location Man Yes August 29, 2021 9:28pm Advance Directive Response Recorded Date/ Time Advance Directives No January 06, 11:25am Living Will Yes January 06, 2022 11:25am Power of Location Man Yes January 06 11:25am Advance Directive Response Recorded Date/ Time Advance Directives No January 06, 10:25am Living Will Yes January 06, 2022 10:25am Power of Location Man Yes January 06 10:25am Latest Code Status on File Code Status Date Activated Date Inactivated Comments Full Code 05/28/2021 1:54 AM 05/31/2021 5:35 PM Code Status History Code Status Date Activated Date Inactivated Comments Full Code 04/19/2021 2:27 PM 04/21/2021 3:27 PM Full Code 04/18/2021 12:40 AM 04/19/2021 2:27 PM Latest Code Status on File Code Status Date Activated Date Inactivated Comments Full Code 05/28/2021 1:54 AM 05/31/2021 5:35 PM Code Status History Code Status Date Activated Date Inactivated Comments Full Code 04/19/2021 2:27 PM 04/21/2021 3:27 PM Full Code 04/18/2021 12:40 AM 04/19/2021 2:27 PM Advance Directive Response Recorded Date/ Time Name of Medical Power of Location Man Nataly Randlejim November 13, 2023 2:56pm Advance Directives No January 06, 2 022 10:25am Living Will Yes November 13, 2023 2:56pm Power of Location Man Yes November 12 2:56pm Advance Directive Response Recorded Date/ Time Name of Medical Power of Location Man Nataly Randlejim November 13, 2023 9:08pm Advance Directives No January 06, 022 10:25am Living Will Yes November 13, 2023 9:08pm Power of Location Man Yes November 12 9:08pm Advance Directive Response Recorded Date/ Time Name of Medical Power of Location Man Nataly Randlejim November 13, 2023 10:08pm Advance Directives No January 06, 022 11:25am Living Will Yes November 13, 2023 10:08pm Power of Location Man Yes November 12 10:08pm Advance Directive Response Recorded Date/ Time Name of Medical Power of Location Man Jose Randlen Lainejim November 13, 2023 10:08pm Advance Directives No January 06, 2 022 11:25am Living Will No January 04, 2024 4:40pm Power of Location Man No January 03 4:40pm Advance Directive Response Recorded Date/ Time Name of Medical Power of Location Man Jose Randlemarilia Bunn November 13, 2023 10:08pm Name of Medical Power of Location Man Nataly Randle Nina January 04, 2024 10:14pm Advance Directives No January 06, 2 022 11:25am Living Will Yes January 04, 2024 10:14pm Power of Location Man Yes January 03 10:14pm Advance Directive Response Recorded Date/ Time Living Will Yes January 04, 2024 10:14pm Do you have a Healthcare Power of Location Man? Yes January 04, 2024 10:14pm Advance Directives No January 06, 2 022 11:25am Advance Directive Response Recorded Date/ Time Advance Directives No January 24 10:14am Do you have a Healthcare Power of Location Man? No January 30, 2025 3:50pm Reason for Referral Status Reason Specialty Diagnoses / Procedures Referred By Contact Referred To Contact Pending Review Cardiac Rehabilitation Diagnoses Coronary artery disease, unspecified vessel or lesion type, unspecified whether angina present, unspecified whether tejon or transplanted heart Post PTCA Marietta Beltran CNP [address] [place] [address] Status Reason Specialty Diagnoses / Procedures Referred By Contact Referred To Contact Authorized Cardiac Rehabilitation Diagnoses S/P PTCA (percutaneous transluminal coronary angioplasty) Antonio Tian MD [address] [place] [address] Cardio Pulm [address] [place] [address] Specialty Diagnoses / Procedures Referred By Contac t Referred To Contact [facility] Diagnoses Balance problem Decreased muscle strength Procedures PT AQUATIC REHAB FOLLOW UP ORDER THER PX 1/> AREAS EACH 15 MIN AQUA THER W/XERSS Emelia Lynn APRN.PHARMACOVIGILANCE SAFETY EXPERT [address] [place] [address] [facility] [place] [address] [place] [address] Referral ID Status Reason Start Date Expiration Date Visits Requested Visits Authorized [id number] Pending Review PCP Requested Referral Auto-Generate d Referral 03/29/2023 06/27/2023 1 1 Specialty Diagnoses / Procedures Referred By Contac t Referred To Contact [facility] Diagnoses Balance problem Decreased muscle strength Procedures CONSULT TO PHYSICAL THERAPY PHYSICAL THERAPY EVALUATION HIGH COMPLEX 45 MINS Emelia Lynn APRN.PHARMACOVIGILANCE SAFETY EXPERT [address] [place] [address] [facility] [place] [address] [place] [address] Referral ID Status Reason Start Date Expiration Date Visits Requested Visits Authorized [id number] Pending Review Auto-Generat ed Referral 03/29/2023 03/28/2024 1 1 Specialty Diagnoses / Procedures Referred By Contac t Referred To Contact CT IMAGING Diagnoses Injury of head, initial encounter Procedures CT BRAIN WO IVCON CT HEAD/BRAIN W/O CONTRAST MATERIAL Emelia Lynn, GLORIA.PHARMACOVIGILANCE SAFETY EXPERT [address] [place] [address] Ct Imaging Referral ID Status Reason Start Date Expiration Date V isits Requested Visits Authorized [id number] Closed Auto-Generat ed Referral Patient Cleared - Admin/Chairm an/Director advise to proceed or did not respond 04/20/2023 05/19/2023 1 1 Specialty Diagnoses / Procedures Referred By Contac t Referred To Contact XR IMAGING Diagnoses Fall, initial encounter Contusion of cheek, initial encounter Procedures XR FACIAL BONES 3V AP/LAT/DRISCOLL RADEX FACIAL BONES COMPLETE MINIMUM 3 VIEWS Emelia Lynn, RELIABILITY TECHNICIAN.PHARMACOVIGILANCE SAFETY EXPERT [address] [place] [address] Xr Imaging Referral ID Status Reason Start Date Expiration Date V isits Requested Visits Authorized [id number] Closed Auto-Generate d Referral 04/20/2023 05/19/2024 1 1 Specialty Diagnoses / Procedures Referred By Contac t Referred To Contact Neurology Diagnoses Memory loss Procedures CONSULT TO NEUROLOGY OFFICE/OUTPATIENT [facility] MDM 60-74 MINUTES Emelia Lynn, RELIABILITY TECHNICIAN.PHARMACOVIGILANCE SAFETY EXPERT [address] [place] [address] Referral ID Status Reason Start Date Expiration Date Visits Requested Visits Authorized [id number] Authorized PCP Requested Referral 04/20/2023 04/19/2024 1 1 Specialty Diagnoses / Procedures Referred By Contac t Referred To Contact Orthopedic Surgery Diagnoses Chronic pain of both knees Maciej Birmingham Jr., DPM [address] [place] [address] Juan Kilpatrick, PHARMACOVIGILANCE SAFETY EXPERT [address] [place] [address] Referral ID Status Reason Start Date Expiration Date V isits Requested Visits Authorized [id number] Authorized 07/19/2023 07/18/2024 1 1 Specialty Diagnoses / Procedures Referred By Contac t Referred To Contact Urology Diagnoses Kidney stone Procedures CONSULT TO UROLOGY OFFICE/OUTPATIENT [facility]3] 60 MINUTES Emelia Lynn APRN.CNP [address] [place] [address] Referral ID Status Reason Start Date Expiration Date Visits Requested Visits Authorized [id number] Authorized PCP Requested Referral 10/26/2023 10/25/2024 1 1 Specialty Diagnoses / Procedures Referred By Contac t Referred To Contact [facility] Diagnoses Fibromyalgia History of stroke Neuropathy Imbalance Spinal stenosis of lumbar region, unspecified whether neurogenic claudication present Procedures CONSULT TO PHYSICAL THERAPY PHYSICAL THERAPY EVALUATION HIGH COMPLEX 45 MINS Vega Granger Jr., MD [address] [address] [facility] [place] [address] [place] [address] Referral ID Status Reason Start Date Expiration Date Visits Requested Visits Authorized [id number] Pending Review Auto-Generat ed Referral 11/27/2023 11/26/2024 1 1 Specialty Diagnoses / Procedures Referred By Contac t Referred To Contact Gastroenterology Diagnoses Hoarse Procedures CONSULT TO GASTROENTEROLOGY OFFICE/OUTPATIENT [facility]3] 60 MINUTES Armando Orozco MD [address] [place] [address] Referral ID Status Reason Start Date Expiration Date Visits Requested Visits Authorized [id number] Authorized PCP Requested Referral 01/15/2024 01/14/2025 1 1 Specialty Diagnoses / Procedures Referred By Contac t Referred To Contact Ent - Otolaryngology Diagnoses Hoarse Procedures CONSULT TO ENT OFFICE/OUTPATIENT [facility]3] 60 MINUTES Armando Orozco MD [address] [place] [address] Referral ID Status Reason Start Date Expiration Date Visits Requested Visits Authorized [id number] Authorized PCP Requested Referral 01/15/2024 01/14/2025 1 1 Specialty Diagnoses / Procedures Referred By Contac t Referred To Contact Neurology Diagnoses Ataxic gait Procedures CONSULT TO NEUROLOGY OFFICE/OUTPATIENT [facility]3] 60 MINUTES Emelia Lynn, RELIABILITY TECHNICIAN.PHARMACOVIGILANCE SAFETY EXPERT [address] [place] [address] Referral ID Status Reason Start Date Expiration Date Visits Requested Visits Authorized [id number] Authorized PCP Requested Referral 03/20/2024 03/20/2025 1 1 Chief Complaint and Reason for Visit Chief Complaint Hospital FU S/P [facility] (RECORDS SCANNED) EORDER/CC PCP ON RESULTS/ DR LEWIS LABS ONLY GI BLEED HOSP FU CP/SOB/PALPITATIONS CP/SOB/PALPITATIONS follow. up 2 M FU FALL EORDER Reason for Visit C. difficile colitis GI bleed Ischemic colitis Segmental colitis associated with diverticulosis Chest tightness HLD (hyperlipidemia) SOB (shortness of breath) Aortic insufficiency Atherosclerotic heart disease of tejon coronary artery without angina pectoris Essential hypertension Presence of stent in coronary artery Palpitations C. difficile colitis GI bleed Diarrhea GI bleed Ischemic colitis Fall Aortic valve disease Atherosclerotic heart disease of tejon coronary artery without angina pectoris Essential hypertension Presence of stent in coronary artery Chief Complaint CP/SOB/PALPITATIONS CP/SOB/PALPITATIONS follow. up 2 M FU FALL EORDER FU INT LABS [place] FOLLOW UP LUNG NODULES Reason for Visit Diarrhea GI bleed Ischemic colitis Fall Aortic valve disease Atherosclerotic heart disease of tejon coronary artery without angina pectoris Essential hypertension Presence of stent in coronary artery Diarrhea History of GI bleed Fatigue Iron deficiency anemia due to chronic blood loss Lung nodule, multiple Chief Complaint follow. up 2 M FU FALL EORDER FU INT LABS [place] FOLLOW UP LUNG NODULES SCREENING E ORDER Reason for Visit Diarrhea GI bleed Ischemic colitis Fall Aortic valve disease Atherosclerotic heart disease of tejon coronary artery without angina pectoris Essential hypertension Presence of stent in coronary artery Diarrhea History of GI bleed Fatigue Iron deficiency anemia due to chronic blood loss Lung nodule, multiple Chief Complaint FU INT LABS [place] FOLLOW UP LUNG NODULES SCREENING E ORDER 3 MO FU e-order Reason for Visit Diarrhea History of GI bleed Fatigue Iron deficiency anemia due to chronic blood loss Lung nodule, multiple Dysphagia Hoarseness of voice Weakness Fatigue Iron deficiency anemia due to chronic blood loss Chief Complaint FOLLOW UP LUNG NODUL ES SCREENING E ORDER 3 MO FU e-order 6 M FU E ORDER Reason for Visit Dysphagia Hoarseness of voice Weakness Fatigue Iron deficiency anemia due to chronic blood loss Chest tightness SOB (shortness of breath) Aortic valve disease Essential hypertension Fatigue Presence of stent in coronary artery Chief Complaint 6-8 WK F/U 3 MO FU Irreg HR, does not feel well Jackie ANGINA PECTORIS, CAD/ASHD ANGINA PECTORIS, CAD/ASHD Reason for Visit Chest tightness Palpitations SOB (shortness of breath) Aortic valve disease Essential hypertension Fatigue Presence of stent in coronary artery Bloating CAD (coronary artery disease) Chest tightness HLD (hyperlipidemia) Palpitations SOB (shortness of breath) Angina pectoris Aortic valve disease Bilateral carotid artery stenosis Essential hypertension Fatigue Presence of stent in coronary artery Chief Complaint Irreg HR, does not f eel well Jackie ANGINA PECTORIS, CAD/ASHD ANGINA PECTORIS, CAD/ASHD 3 M FU E ORDERS Reason for Visit CAD (coronary artery disease) Chest tightness HLD (hyperlipidemia) Palpitations SOB (shortness of breath) Angina pectoris Aortic valve disease Bilateral carotid artery stenosis Essential hypertension Fatigue Presence of stent in coronary artery HLD (hyperlipidemia) Palpitations SOB (shortness of breath) Angina pectoris Aortic valve disease Bilateral carotid artery stenosis Essential hypertension Fatigue Presence of stent in coronary artery Chief Complaint 3 M FU (Prev PFM) Consult-CAROTID STENOSIS E ORDER SCREENING Reason for Visit CAD (coronary artery disease) Carotid artery disease Dyslipidemia Essential hypertension Carotid artery disease Chief Complaint Consult-CAROTID STEN OSIS E ORDER SCREENING I77.9 Disorder of arteries and arterioles, unspeci Reason for Visit Carotid artery disea se Chief Complaint I77.9 Disorder of ar teries and arterioles, unspeci DISORDER OF ARTERIES PAIN OTHER BP issues and H/A BACK ATAXIA Reason for Visit CAD (coronary artery disease) Carotid artery disease Dyslipidemia Essential hypertension Ataxia Back pain Balance disorder [place] Gait disturbance Memory loss Systolic murmur Chief Complaint I77.9 Disorder of ar teries and arterioles, unspeci DISORDER OF ARTERIES PAIN OTHER BP issues and H/A ATAXIA BACK ATAXIA ATAXIA Reason for Visit CAD (coronary artery disease) Carotid artery disease Dyslipidemia Essential hypertension Ataxia Back pain Balance disorder [place] Gait disturbance Memory loss Systolic murmur Chief Complaint PAIN OTHER BP issues and H/A ATAXIA BACK ATAXIA ATAXIA [address] EORDER [address] ORTEGA ALSO, [address] Reason for Visit CAD (coronary artery disease) Carotid artery disease Dyslipidemia Essential hypertension Ataxia Back pain Balance disorder [place] Memory loss Systolic murmur CAD (coronary artery disease) Carotid artery disease Dyslipidemia Essential hypertension Chief Complaint PAIN OTHER BP issues and H/A ATAXIA BACK ATAXIA ATAXIA [address] wk FU EORDER FROM [address] ORTEGA ALSO, 2 ORDERING ZA SUSPECTED CVA S/P TNK ADMINISTRATION Reason for Visit CAD (coronary artery disease) Carotid artery disease Dyslipidemia Essential hypertension Ataxia Back pain Balance disorder [place] Memory loss Systolic murmur CAD (coronary artery disease) Carotid artery disease Dyslipidemia Essential hypertension CVA (cerebral vascular accident) Migraine Chief Complaint PAIN OTHER BP issues and H/A ATAXIA BACK ATAXIA ATAXIA 6 wk FU EORDER FROM DR ORTEGA ALSO, 2 ORDERING ZA SUSPECTED CVA S/P TNK ADMINISTRATION SUSPECTED CVA S/P TNK ADMINISTRATION SUSPECTED CVA S/P TNK ADMINISTRATION Reason for Visit CAD (coronary artery disease) Carotid artery disease Dyslipidemia Essential hypertension Ataxia Back pain Balance disorder [place] Memory loss Systolic murmur CAD (coronary artery disease) Carotid artery disease Dyslipidemia Essential hypertension Aphasia Headache URI (upper respiratory infection) Chief Complaint I77.9 Disorder of ar teries and arterioles, unspeci DISORDER OF ARTERIES Chief Complaint Admit Date 1 Y FU August 30, 2024 11:26am 6 M FU September 25, 2024 1 1:22am PAIN IN LT & RT LEGS December 18, 2024 1:5 2pm Reason for Visit Admit Date Bilateral carotid artery stenosis Dece er 2023 11:26am Aortic stenosis September 25, 2024 1 1:22am CAD (coronary artery disease) September 252024 11:22am Carotid artery disease September 25 11:22am Dyslipidemia September 25, 2024 1 1:22am Essential hypertension September 25 11:22am CVA (cerebral vascular accident) September 25, 2024 11:22am Chief Complaint Admit Date PAIN IN LT & RT LEGS December 18, 2024 1:5 2pm PVD December 18, 2024 2:05 pm fall January 30, 2025 3:38p m R LE Edema February 07, 2025 10:37 am Chief Complaint Admit Date PAIN IN LT & RT LEGS December 18, 2024 1:5 2pm PVD December 18, 2024 2:05 pm fall January 30, 2025 3:38p m R LE Edema February 07, 2025 10:37 am LUMBAR SPINE February 17, 2025 2:54p m room 5 February 17, 2025 3:09p m Reason for Visit Admit Date Leg cramps February 07, 2025 10:37 am Chief Complaint Admit Date PAIN IN LT & RT LEGS December 18, 2024 1:5 2pm PVD December 18, 2024 2:05 pm fall January 30, 2025 3:38p m R LE Edema February 07, 2025 10:37 am LUMBAR SPINE February 17, 2025 2:54p m room 5 February 17, 2025 3:09p m 6 M FU March 11, 2025 3:03p m Reason for Visit Admit Date Leg cramps February 07, 2025 10:37 am Degenerative disc disease (D DD) of lumbar region with discogenic back pain February 17, 2025 2:54pm Degenerative scoliosis February 17, 2025 2: 54pm Low bone density February 17, 2025 2:54p m Chief Complaint Admit Date PAIN IN LT & RT LEGS December 18, 2024 1:5 2pm PVD December 18, 2024 2:05 pm fall January 30, 2025 3:38p m R LE Edema February 07, 2025 10:37 am LUMBAR SPINE February 17, 2025 2:54p m room 5 February 17, 2025 3:09p m 6 M FU March 11, 2025 3:03p m PTNS April 11, 2025 1:3 2pm Reason for Visit Admit Date Leg cramps February 07, 2025 10:37 am Degenerative disc disease (D DD) of lumbar region with discogenic back pain February 17, 2025 2:54pm Degenerative scoliosis February 17, 2025 2: 54pm Low bone density February 17, 2025 2:54p m Aortic stenosis March 11, 2025 3:03p m CAD (coronary artery disease) March 11, 2025 3:03pm Carotid artery disease March 11, 2025 3: 03pm Dyslipidemia March 11, 2025 3:03p m Essential hypertension March 11, 2025 3: 03pm CVA (cerebral vascular accident) March 3:03pm Nocturia April 11, 2025 1:3 2pm Urge incontinence April 11, 2025 1:3 2pm Chief Complaint Admit Date PAIN IN LT & RT LEGS December 18, 2024 1:5 2pm PVD December 18, 2024 2:05 pm fall January 30, 2025 3:38p m R LE Edema February 07, 2025 10:37 am LUMBAR SPINE February 17, 2025 2:54p m room 5 February 17, 2025 3:09p m 6 M FU March 11, 2025 3:03p m PTNS April 11, 2025 1:3 2pm PTNS April 15, 2025 2:5 3pm Reason for Visit Admit Date Leg cramps February 07, 2025 10:37 am Degenerative disc disease (D DD) of lumbar region with discogenic back pain February 17, 2025 2:54pm Degenerative scoliosis February 17, 2025 2: 54pm Low bone density February 17, 2025 2:54p m Aortic stenosis March 11, 2025 3:03p m CAD (coronary artery disease) March 11, 2025 3:03pm Carotid artery disease March 11, 2025 3: 03pm Dyslipidemia March 11, 2025 3:03p m Essential hypertension March 11, 2025 3: 03pm CVA (cerebral vascular accident) March 3:03pm Nocturia April 11, 2025 1:3 2pm Urge incontinence April 11, 2025 1:3 2pm Urge incontinence April 15, 2025 2:5 3pm Chief Complaint Admit Date fall January 30, 2025 3:38p m R LE Edema February 07, 2025 10:37 am LUMBAR SPINE February 17, 2025 2:54p m room 5 February 17, 2025 3:09p m 6 M FU March 11, 2025 3:03p m PTNS April 11, 2025 1:3 2pm PTNS April 15, 2025 2:5 3pm HTN, AORTIC VALVE DISEASE April 22, 2 025 12:57pm PTNS April 22, 2025 2: 11pm Reason for Visit Admit Date Leg cramps February 07, 2025 10:37 am Degenerative disc disease (D DD) of lumbar region with discogenic back pain February 17, 2025 2:54pm Degenerative scoliosis February 17, 2025 2: 54pm Low bone density February 17, 2025 2:54p m Aortic stenosis March 11, 2025 3:03p m CAD (coronary artery disease) March 11, 2025 3:03pm Carotid artery disease March 11, 2025 3: 03pm Dyslipidemia March 11, 2025 3:03p m Essential hypertension March 11, 2025 3: 03pm CVA (cerebral vascular accident) March 3:03pm Nocturia April 11, 2025 1:3 2pm Urge incontinence April 11, 2025 1:3 2pm Urge incontinence April 15, 2025 2:5 3pm Nocturia April 22, 2025 2: 11pm Urge incontinence April 22, 2025 2: 11pm Chief Complaint VoiceVoiceVoiceVoice Medications Administered Section Inactive Administered Medications - up to 3 most recent administrations Medication Order MAR Action Action Date Dose Rate Site keTORolac 30 mg injection (Toradol) 30 mg, INTRAMUSCULAR, ONCE, 1 dose, On Qiana 01/12/23 at 0830, Ketorolac (Toradol) is indicated for the short-term (up to 5 days) management of moderately severe acute pain. Continuation of ketorolac (Toradol) beyond 5 days increases the risk of developing serious adverse events. Please verify the duration of therapy for ketorolac (Toradol)., If ordered PRN for pain, patient/guardian may elect to receive this medication for higher pain levels INSTEAD of the opioid, if preferred: Yes Given 01/12/2023 8:24 AM EDT 30 mg Buttocks, Left triamcinolone acetonide 40 mg injection (KeNALog 40) 40 mg, INTRAMUSCULAR, ONCE, 1 dose, On Qiana 01/12/23 at 0830 Given 01/12/2023 8:21 AM EDT 40 mg Buttocks, Right Additional Source Comments INFORMATION SOURCE (unrecogn ized section and content) DATE CREATED AUTHOR 03/07/2018 [facility] DATE CREATED AUTHOR AUTHOR'S ORGANIZ ATION 06/24/2021 [facility] DATE CREATED AUTHOR AUTHOR'S ORGANIZ ATION 02/26/2022 [facility] DATE CREATED AUTHOR AUTHOR'S ORGANIZ ATION 02/20/2023 [facility] DATE CREATED AUTHOR AUTHOR'S ORGANIZ ATION 02/20/2023 [facility] DATE CREATED AUTHOR AUTHOR'S ORGANIZ ATION 03/02/2023 [facility] DATE CREATED AUTHOR AUTHOR'S ORGANIZ ATION 04/24/2023 [facility] DATE CREATED AUTHOR AUTHOR'S ORGANIZ ATION 07/31/2023 [facility] DATE CREATED AUTHOR AUTHOR'S ORGANIZ ATION 08/03/2023 [facility] DATE CREATED AUTHOR AUTHOR'S ORGANIZ ATION 09/28/2023 [facility] DATE CREATED AUTHOR AUTHOR'S ORGANIZ ATION 02/06/2025 [facility] DATE CREATED AUTHOR AUTHOR'S ORGANIZ ATION 04/13/2025 [facility] DATE CREATED AUTHOR AUTHOR'S ORGANIZ ATION 04/22/2025 [facility] Reason for Visit (unrecogniz ed section and content) Reason Onset Date Comments Phase II Cardiac Rehab 04/20/2021 Status Reason Specialty Diagnoses / Procedures Referre d By Contact Referred To Contact Diagnoses Chest pain Chest pain Reason Comments Follow-up Reason Onset Date Comments Medication Refill 05/20/2021 Reason Comments Medicare Wellness Exam Reason Comments Patient Question Reason Comments External Documents Gastro H&P Reason Comments Acute Visit medication, anxiety, low thyroid Reason Comments Recheck Follow up from [facility]y regarding TSH Reason Comments Results Reason Comments FMLA Paperwork Reason Comments Orders Reason Onset Date Comments Refill Request 10/07/2022 Reason Comments Hair Loss Reason Comments Back Pain Reason Comments Opened In Error Reason Comments Refill Request Reason Comments Medication Follow-up jaw pain Balance Reason Comments Medication Question Reason Comments Follow Up 1 month for HTN Reason Comments Lab Orders Reason Comments Orders Mammogram Screening Reason Comments Acute Visit fell on wall had bru ising. Reason Comments Radiology CT Specialty Diagnoses / Procedures Referred By Jennifer jamison Referred To Contact CT IMAGING Diagnoses Injury of head, initial encounter Procedures CT BRAIN WO IVCON CT HEAD/BRAIN W/O CONTRAST MATERIAL Emelia Lynn, RELIABILITY TECHNICIAN.PHARMACOVIGILANCE SAFETY EXPERT [address] [place] [address] Ct Imaging Referral ID Status Reason Start Date Expiration Date V isits Requested Visits Authorized [id number] Closed Auto-Generat ed Referral Patient Cleared - Admin/Chairm an/Director advise to proceed or did not respond 04/20/2023 05/19/2023 1 1 Reason Comments Results Xray Reason Comments Fall X 1 week Left foot a nd right knee Reason Comments Patient Update Reason Comments Pain (foot) Fell- 2 weeks ago, S ores between toes Reason Comments Foot Pain Left foot pain since beginning of May. Had a fall and toes caught under her. Went to [facility] and they said nothing was broken. She is having burning pain that feel very hot. She also has open sores between toes 2 and 3. Reason Comments Results Patient Update Reason Comments Pain Specialty Diagnoses / Procedures Referred By Contac t Referred To Contact Orthopedic Surgery Diagnoses Chronic pain of both knees Maciej Birmingham Jr., DPM [address] [place] [address] Juan Kilpatrick, PHARMACOVIGILANCE SAFETY EXPERT [address] [place] [address] Referral ID Status Reason Start Date Expiration Date Visits Re quested Visits Authorized [id number] Closed 07/19/2023 07/18/2024 1 1 Reason Onset Date Comments Refill Request 10/12/2023 Reason Comments Results Urine Orders Reason Comments Peer To Peer Consultation Reason Comments Results Orders US ladder and kidney Reason Comments Radiology US Specialty Diagnoses / Procedures Referred By Contac t Referred To Contact US IMAGING Diagnoses Microscopic hematuria Calcium oxalate crystals in urine Procedures US KIDNEY/BLADDER US RETROPERITONEAL REAL TIME W/IMAGE COMPLETE Emelia Lynn APRN.PHARMACOVIGILANCE SAFETY EXPERT [address] [place] [address] [id number] [id number] Referral ID Status Reason Start Date Expiration Date V isits Requested Visits Authorized [id number] Closed Auto-Generate d Referral 10/12/2023 11/10/2024 1 1 Reason Comments Consult Kidney Stones Urinary Urgency Specialty Diagnoses / Procedures Referred By Contac t Referred To Contact Urology Diagnoses Kidney stone Procedures CONSULT TO UROLOGY OFFICE/OUTPATIENT NEW HIGH MDM 60 MINUTES Emelia Lynn APRN.PHARMACOVIGILANCE SAFETY EXPERT [address] [place] [address] Referral ID Status Reason Start Date Expiration Date V isits Requested Visits Authorized [id number] Closed PCP Requested Referral 10/26/2023 10/25/2024 1 1 Reason Onset Date Comments Transition Of Care 11/16/2023 Reason Comments Hospital F/U Reason Comments Order for Aquatic Therapy Reason Comments Follow Up Hospital follow up Reason Comments Results Labs Reason Onset Date Comments Transition Of Care 01/09/2024 Reason Comments Follow Up [facility] ER follow up Reason Comments Follow Up Follow up dementia, reported recent ER [facility]. Reason Comments Referral for endoscopy Reason Comments FMLA forms Reason Comments Follow Up 1 month follow up an d Urine SX Reason Comments consult neurology 2nd opinion Reason Comments Acute Visit having parkison symp toms Reason Comments Results Urine Culture Reason Comments FMLA letter problem Reason Onset Date Comments Refill Request 05/10/2024 Reason Onset Date Comments Refill Request 07/01/2024 Reason Onset Date Comments No Rx needed 08/15/2024 Reason Onset Date Comments Refill Request 08/13/2024 Reason Comments Gait Problem Reason Comments Medication Problem Reason Comments Ankle Injury Reason Comments Acute Visit right foot swelling - injury tripped up the stairs Reason Comments requesting lab orders Reason Comments Results Foot Xray Reason Comments Established Patient C/o bilateral legs h urting, numbness, tingling from ankle to knees, tx tylenol, consistent Reason Comments F/U 6 Month Reason Comments Pain Bilateral knees and bilateral hips Scheduled Active and Recently Administ ered Medications (unrecognized section and content) Medication Order 04/19/2021 04/20/2021 04/21/2021 aspirin EC tablet 81 mg 81 mg, Oral, Daily, First dose on 04/18/21 at 0900, DO NOT CRUSH OR CHEW. 0908 (Given - Provider: Singh Starr RN) 1046 (Given - Provider: Singh Starr RN) 1006 (Given - Provider: Myra Ocampo RN) atorvastatin (LIPITOR) tablet 20 mg (CANCELED) 20 mg, Oral, Daily, First dose on 04/18/21 at 0900 0908 (Given - Provider: Singh Starr RN) atorvastatin (LIPITOR) tablet 40 mg 40 mg, Oral, Daily, First dose (after last modification) on Mon04/20/21 at 1030 1046 (Given - Provider: Singh Starr RN) 1008 (Given - Provider: Myra Ocampo RN) hydroCHLOROthiazide (HYDRODIURIL) tablet 25 mg 25 mg, Oral, Daily, First dose on 04/18/21 at 0900 0908 (Given - Provider: Singh Starr RN) 1046 (Given - Provider: Singh Starr RN) 1005 (Given - Provider: Myra Ocampo, CARIE) levothyroxine (SYNTHROID, LEVOTHROID) tablet 100 mcg 100 mcg, Oral, Daily, First dose on 04/18/21 at 0600, For patients on continuous tube feed: Hold TF from 1 hr before until 1 hr after each dose. TF rate may need adjustment to meet caloric needs. 0538 (Given - Provider: Julio Tarango RN) 0531 (Given - Provider: Iqra Blunt RN) 0503 (Given - Provider: Earnestine Arce RN) lisinopriL (PRINIVIL,ZESTRIL) tablet 20 mg 20 mg, Oral, Daily with lunch, First dose (after last modification) on 04/18/21 at 1200 1200 (Not Given - Provider: Singh Starr RN - Reason: Contraindicated) 1309 (Given - Provider: Singh Starr RN) 1212 (Given - Provider: Myra Ocampo RN) metoprolol tartrate (LOPRESSOR) tablet 25 mg 25 mg, Oral, 2 times daily, First dose on 04/18/21 at 0900 0908 (Given - Provider: Singh Starr RN)2019 (Given - Provider: Iqra Blunt RN) 1046 (Given - Provider: Singh Starr RN)204 (Given - Provider: Iqra Blunt RN) 1005 (Given - Provider: Myra Ocampo RN) potassium chloride SA (K-DUR,KLOR-CON) CR tablet 20 mEq (CANCELED) 20 mEq, Oral, Daily, First dose on 04/18/21 at 0900, DO NOT CRUSH OR CHEW (if instructed may dissolve tablet(s) in liquid) DO NOT ADMINISTER DISSOLVED TABLET VIA SURGICALLY PLACED TUBE OR TUBE less than 14 Eritrean For tube administration: dissolve tablet(s) with 4 ounces of water over 2-3 minutes, stir for 30 seconds prior to administration; rinse dosing cup and administer residual medication to ensure full dose given 0908 (Given - Provider: Singh Starr RN) potassium chloride SA (K-DUR,KLOR-CON) CR tablet 20 mEq 20 mEq, Oral, 2 times daily, First dose (after last modification) on Mon04/21/21 at 0900, DO NOT CRUSH OR CHEW (if instructed may dissolve tablet(s) in liquid) DO NOT ADMINISTER DISSOLVED TABLET VIA SURGICALLY PLACED TUBE OR TUBE less than 14 E[place]rean For tube administration: dissolve tablet(s) with 4 ounces of water over 2-3 minutes, stir for 30 seconds prior to administration; rinse dosing cup and administer residual medication to ensure full dose given 1006 (Given - Provider: Myra Ocampo RN) potassium chloride SA (K-DUR,KLOR-CON) CR tablet 40 mEq (COMPLETED) 40 mEq, Oral, Once, On Mon04/20/21 at 0700, For 1 dose, 40mEq orally x 1 for serum Potassium in range of 3-3.4 mEq/L per Critical Care Electrolyte Replacement Therapy. ORDER repeat potassium level 4 hours after dose. DO NOT CRUSH OR CHEW (if instructed may dissolve tablet(s) in liquid) DO NOT ADMINISTER DISSOLVED TABLET VIA SURGICALLY PLACED TUBE OR TUBE less than 14 E[place]rean For tube administration: dissolve tablet(s) with 4 ounces of water over 2-3 minutes, stir for 30 seconds prior to administration; rinse dosing cup and administer residual medication to ensure full dose given 06 (Given - Provider: Iqra Blunt RN) potassium chloride SA (K-DUR,KLOR-CON) CR tablet 40 mEq (COMPLETED) 40 mEq, Oral, Once, On Mon04/20/21 at 1245, For 1 dose, 40mEq orally x 1 for serum Potassium in range of 3-3.4 mEq/L per Critical Care Electrolyte Replacement Therapy. ORDER repeat potassium level 4 hours after dose. DO NOT CRUSH OR CHEW (if instructed may dissolve tablet(s) in liquid) DO NOT ADMINISTER DISSOLVED TABLET VIA SURGICALLY PLACED TUBE OR TUBE less than 14 Eritrean For tube administration: dissolve tablet(s) with 4 ounces of water over 2-3 minutes, stir for 30 seconds prior to administration; rinse dosing cup and administer residual medication to ensure full dose given 1309 (Given - Provider: Singh Starr RN) sodium chloride (PF) (NS) flush 5 mL(Linked Group 1) 5 mL, Intravenous, Every 8 hours scheduled, First dose on Mon04/18/21 at 0130, Saline lock 0538 (Given - Provider: Julio Tarango, CARIE)1400 (Given - Provider: Signh Starr RN)2200 (Not Given - Provider: Iqra Blunt RN - Reason: Contraindicated - Comment: IV infusing) 0531 (Given - Provider: Iqra Blunt RN)1309 (Given - Provider: Singh Starr RN)2309 (Given - Provider: Earnestine Acre RN) 0503 (Given - Provider: Earnestine Arce RN) sodium chloride 0.9% (NS) bolus 250 mL (COMPLETED) 250 mL, Intravenous, at 937.5 mL/hr, Once, On Mon04/19/21 at 1600, For 1 dose 1457 (New Bag - Provider: Singh Starr RN - Comment: Emergent IV bolus ordered)1459 (Rate/Dose Verify - Provider: Singh Starr RN)1512 (Rate/Dose Change - Provider: Singh Starr RN)1516 (Stopped - Provider: Singh Starr RN) ticagrelor (BriLINTA) tablet 90 mg 90 mg, Oral, 2 times daily, First dose on Mon04/19/21 at 2100, Loading dose already given: Check when loading dose was given and schedule 1st dose within 12 hours of loading dose 204 (Given - Provider: Earnestine Arce RN) 1046 (Given - Provider: Singh Starr RN)204 (Given - Provider: Iqra Blunt, CARIE) 1006 (Given - Provider: Myra Ocampo RN) tiZANidine (ZANAFLEX) tablet 4 mg 4 mg, Oral, Nightly, First dose on Mon04/18/21 at 0130 2020 (Given - Provider: Iqra Blunt, CARIE) 2199 (Not Given - Provider: Earnestine Arce RN - Reason: Patient/family refused - Comment: pt request) Continuous Medication Order 04/19/2021 04/20/2021 04/21/2021 sodium chloride 0.9% (NS) () 75 mL/hr, Intravenous, Continuous, Starting on Mon04/19/21 at 1545, For 8 hours 1529 (New Bag - Provider: Singh Starr RN)1529 (Rate/Dose Verify - Provider: Singh Starr RN)1700 (Rate/Dose Verify - Provider: Singh Starr RN)1716 (Rate/Dose Verify - Provider: Singh Starr RN)193 (Rate/Dose Change - Provider: Singh Starr RN)193 (Rate/Dose Change - Provider: Singh Starr RN)194 (Stopped - Provider: Singh Starr RN)194 (New Bag - Provider: Singh Starr RN)194 (Rate/Dose Verify - Provider: Singh Starr RN)1999 (Rate/Dose Verify - Provider: Singh Starr RN) tirofiban (AGGRASTAT) 12.5 mg (50 mcg/mL) in 250 mL sodium chloride (NS) bag () 0.075 mcg/kg/min 51.6 kg (4.644 mL/hr, rounded to 4.6 mL/hr), Intravenous, at 4.6 mL/hr, Continuous, Starting on Mon04/19/21 at 1600, For 2 hours 1447 (New Bag - Provider: Singh Starr RN)1449 (Rate/Dose Verify - Provider: Singh tSarr RN)1506 (Rate/Dose Verify - Provider: Singh Starr RN)1652 (Stopped - Provider: Singh Starr RN) PRN Medication Order 04/19/2021 04/20/2021 04/21/2021 fentaNYL (SUBLIMAZE) injection (CANCELED) As needed, Starting on Mon04/19/21 at 1325, Intra-Procedure 1325 (Given - Provider: Izabella Rivero RN) heparin (porcine) injection (CANCELED) As needed, Starting on Mon04/19/21 at 1334, Intra-Procedure 1334 (Given - Provider: Izabella Rivero RN)1339 (Given - Provider: Izabella Rivero RN) hydrALAZINE (APRESOLINE) injection (CANCELED) As needed, Starting on Mon04/19/21 at 1411, Intra-Procedure 1411 (Given - Provider: Izabella Rivero RN)1420 (Given - Provider: Izabella Rivero RN) iopamidoL (ISOVUE-370) 76 % injection (CANCELED) As needed, Starting on Mon04/19/21 at 1425, Intra-Procedure 1425 (Given - Provider: Antonio Tian MD) midazolam (VERSED) injection (CANCELED) As needed, Starting on Mon04/19/21 at 1325, Intra-Procedure 1325 (Given - Provider: Izabella Rivero RN) naloxone (NARCAN) injection 0.1 mg(Linked Group 2) 0.1 mg, Intravenous, As needed, opioid reversal, For respiratory rate less than or equal to 8 per minute., Starting on Mon04/18/21 at 0033, Mix nalOXone (NARCAN) 0.4 mg (1ml) with 9 mL of Normal Saline to total 10 mL. Administer 0.1 mg (2.5ml) IV Push every 2 minutes until respiratory rate is 10 or greater. naloxone (NARCAN) injection 0.4 mg(Linked Group 2) 0.4 mg, Intravenous, As needed, opioid reversal, patient is pulseless, breathless, and unresponsive, Starting on Mon04/18/21 at 0033, Call a code first, then administer naloxone dose undiluted IV Push over 30 seconds. nitroGLYCERIN (NITROSTAT) SL tablet 0.4 mg 0.4 mg, Sublingual, Every 5 min PRN, chest pain, Starting on Mon04/18/21 at 0040, Anginal pain, may repeat [id number] x3, then notify physician. DO NOT CRUSH OR CHEW. nitroglycerin (TRIDIL) 50 mcg/ml 10 mL syringe (CANCELED) As needed, Starting on Mon04/19/21 at 1332, Intra-Procedure 1332 (Given - Provider: Antonio Tian MD)1353 (Given - Provider: Antonio Tian MD)1404 (Given - Provider: Antonio Tian MD) nitroGLYCERIN 50 mg in dextrose (D5W) 250 mL infusion (COMPLETED) Intra-op continuous PRN, Starting on Mon04/19/21 at 1422, Intra-Procedure 1422 (New Bag - Provider: Izabella Rivero RN)1455 (Stopped - Provider: Singh Starr, CARIE) ondansetron (ZOFRAN) injection 4 mg 4 mg, Intravenous, Every 6 hours PRN, nausea, vomiting, Starting on Mon04/19/21 at 1455 1712 (Given - Provider: Singh Starr, CARIE) 0702 (Given - Provider: Earnestine Arce, CARIE) 0851 (Given - Provider: Myra Ocampo RN) perflutren lipid microspheres (DEFINITY) 0.143 mg/mL solution 0-10 mL of mixture 0-10 mL of mixture, Intravenous, Once in imaging, contrast, IF suboptimal echo, Starting on Mon04/20/21 at 0823, For 48 hours, Prepare syringe by withdrawing 1.3 mL of perflutren (DEFINITY) from the 2ml vial. Further dilute the 1.3 mL of perflutren with Sodium Chloride (NS) 0.9% to total volume of 10 ml. Chart total ML OF MIXTURE given to patient. sodium chloride (PF) (NS) flush 5 mL(Linked Group 1) 5 mL, Intravenous, As needed, line care, Starting on Mon04/18/21 at 0039 sodium chloride 0.9% (NS)(Linked Group 1) 0-150 mL/hr, Intravenous, As needed, To flush line after IV infusions when no maintenance IV ordered or a compatibility issue. Infuse 20ml at the same rate as the secondary infusion, Starting on Mon04/18/21 at 0039, Run as Primary IV. NOT intended for KVO. ticagrelor (BriLINTA) tablet (CANCELED) As needed, Starting on Mon04/19/21 at 1423, Intra-Procedure 1423 (Given - Provider: Izabella Rivero RN) tirofiban (AGGRASTAT) 5 mg in sodium chloride (NS) 0.9% 100mL infusion (COMPLETED) Intra-op continuous PRN, Starting on Mon04/19/21 at 1348, Intra-Procedure 1348 (New Bag - Provider: Izabella Rivero RN)1348 (New Bag - Provider: Izabella Rivero RN)1700 (Stopped - Provider: Singh Starr, CARIE) traMADoL (ULTRAM) tablet 50 mg 50 mg, Oral, Every 4 hours PRN, moderate to severe pain, Starting on Mon04/18/21 at 0033 0004 (Given - Provider: Julio Tarango, RN)0858 (Return to Cabinet - Provider: Singh Starr, CARIE) 0702 (Given - Provider: Earnestine Arce RN)1932 (Given - Provider: Iqra Blunt RN) traZODone (DESYREL) tablet 50 mg 50 mg, Oral, Nightly PRN, sleep, Starting on Mon04/18/21 at 0055 0004 (Given - Provider: Julio Tarango, CARIE) verapamiL (ISOPTIN) injection (CANCELED) As needed, Starting on Mon04/19/21 at 1333, Intra-Procedure 1333 (Given - Provider: Antonio Tian MD) Linked Groups Order Group 1: Saline lock IV (CANCELED) Routine, Continuous, Starting on Mon04/18/21 at 0040, Until Specified And sodium chloride (PF) (NS) flush 5 mLJump to med 5 mL, Intravenous, As needed, line care, Starting on Mon04/18/21 at 0039 And sodium chloride (PF) (NS) flush 5 mLJump to med 5 mL, Intravenous, Every 8 hours scheduled, First dose on Mon04/18/21 at 0130
Saline lock
And sodium chloride 0.9% (NS)Jump to med 0-150 mL/hr, Intravenous, As needed, To flush line after IV infusions when no maintenance IV ordered or a compatibility issue. Infuse 20ml at the same rate as the secondary infusion, Starting on Mon04/18/21 at 0039
Run as Primary IV. NOT intended for KVO.
Group 2: naloxone (NARCAN) injection 0.1 mgJump to med 0.1 mg, Intravenous, As needed, opioid reversal, For respiratory rate less than or equal to 8 per minute., Starting on Mon04/18/21 at 0033
Mix nalOXone (NARCAN) 0.4 mg (1ml) with 9 mL of Normal Saline to total 10 mL. Administer 0.1 mg (2.5ml) IV Push every 2 minutes until respiratory rate is 10 or greater.
And Notify physician (CANCELED) STAT, Until discontinued, Starting on Mon04/18/21 at 0034, Until Specified
Respiratory rate less than: 8
For respiratory rate less than or equal to 8, notify physician and/or appropriate staff for additional orders. And naloxone (NARCAN) injection 0.4 mgJump to med 0.4 mg, Intravenous, As needed, opioid reversal, patient is pulseless, breathless, and unresponsive, Starting on [place] 04/18/21 at 0033
Call a code first, then administer naloxone dose undiluted IV Push over 30 seconds.
Care Teams (unrecognized sec tion and content) Recoating Machine Operator Relationship Specialty Start Date End Date Armando Orozco MD [address] [place] [address] [place] [id number] PCP - General Family Medicine 04/28/21 Recoating Machine Operator Relationship Specialty Start Date End Date Armando Orozco MD [address] [place] [id number] PCP - General Family Medicine 04/28/21 Recoating Machine Operator Relationship Specialty Start Date End Date Armando Orozco MD [address] [place] [id number] PCP - General Family Practice 04/28/17 Recoating Machine Operator Relationship Specialty Start Date End Date Armando Orozco MD [address] [place] [id number] PCP - General Family Practice 04/28/17 Recoating Machine Operator Relationship Specialty Start Date End Date Armando Orozco MD [address] [place] [id number] PCP - General Family Practice 04/28/17 Recoating Machine Operator Relationship Specialty Start Date End Date Armando Orozco MD [address] [place] [id number] PCP - General Family Practice 04/28/17 Recoating Machine Operator Relationship Specialty Start Date End Date Armando Orozco MD [address] [place] [address] PCP - General Family Practice 04/28/17 Recoating Machine Operator Relationship Specialty Start Date End Date Armando Orozco MD [address] [place] [address] PCP - General Family Medicine 04/28/17 Recoating Machine Operator Relationship Specialty Start Date End Date Armando Orozco MD [address] [place] [address] PCP - General Family Medicine 04/28/17 Recoating Machine Operator Relationship Specialty Start Date End Date Armando Orozco MD [address] [place] [address] PCP - General Family Medicine 04/28/17 Recoating Machine Operator Relationship Specialty Start Date End Date Armando Orozco MD [address] [place] [address] PCP - General Family Medicine 04/28/17 Team Status: Active Member Role Status Dates Singh Brunner FERRY HAND, FERRY HAND-C Family Provider Active Dr. Armando Orozco MD Primary Care Provider Active Team Status: Inactive Member Role Status Dates Dr. Armando Orozco MD Primary Care Provider, Referr ing Provider Active Bev Fernández FERRY HAND, FERRY HAND-C Attending Provider Active Team Status: Inactive Member Role Status Dates Dr. Armando Orozco MD Primary Care Provider, Referr ing Provider Active Nohelia Angel FERRY HAND, FERRY HAND-C Attending Provider Active Team Status: Inactive Member Role Status Dates Dr. Armando Orozco MD Primary Care Provider, Referr ing Provider Active Dr. Nicholas Max MD Attending Provider Active Team Status: Active Member Role Status Dates Dr. Armando Orozco MD Primary Care Provider Active Dr. Nicholas Max MD Attending Provid er, Referring Provider, Other Provider Active Team Status: Active Member Role Status Dates Dr. Armando Orozco MD Primary Care Provider Active Dr. Gregory Benjamin MD Attending Provider Active Team Status: Active Member Role Status Dates Dr. Armando Orozco MD Primary Care Provider Active Dr. Nicholas Max MD Attending Provider, Referring Provider Active Team Status: Inactive Member Role Status Dates Dr. Armando Orozco MD Primary Care Provider Active Dr. Federico Thomas MD Attending Provider, Referring P rovider Active Recoating Machine Operator Relationship Specialty Start Date End Date Armando Orozco MD [address] [place] [address] PCP - General Family Medicine 04/28/17 Team Status: Inactive Member Role Status Dates Dr. Armando Orozco MD Primary Care Provider Active Dr. Nicholas Max MD Attending Provider, Referring Provider Active Team Status: Active Member Role Status Dates Dr. Armando Orozco MD Primary Care Provider Active Dr. Gregory Benjamin MD Attending Provider Active Dr. Nicholas Max MD Referring Provider Active Team Status: Inactive Member Role Status Dates Dr. Armando Orozco MD Primary Care Provider Active Nohelia Angel FERRY HAND, FERRY HAND-C Attending Provider, Referring P rovider Active Recoating Machine Operator Relationship Specialty Start Date End Date Armando Orozco MD [address] [place] [address] PCP - General Family Medicine 04/28/17 Recoating Machine Operator Relationship Specialty Start Date End Date Armando Orozco MD [address] [place] [address] PCP - General Family Medicine 04/28/17 Recoating Machine Operator Relationship Specialty Start Date End Date Armando Orozco MD [address] [place] [address] PCP - General Family Medicine 04/28/17 Recoating Machine Operator Relationship Specialty Start Date End Date Armando Orozco MD [address] [facility] [place] [address] PCP - General Family Medicine 04/28/17 Recoating Machine Operator Relationship Specialty Start Date End Date Armando Orozco MD [address] [place] [address] PCP - General Family Medicine 04/28/17 Recoating Machine Operator Relationship Specialty Start Date End Date Armando Orozco MD [address] [place] [address] PCP - General Family Medicine 04/28/17 Recoating Machine Operator Relationship Specialty Start Date End Date Armando Orozco MD [address] [place] [address] PCP - General Family Medicine 04/28/17 Recoating Machine Operator Relationship Specialty Start Date End Date Armando Orozco MD [address] [place] [address] PCP - General Family Medicine 04/28/17 Recoating Machine Operator Relationship Specialty Start Date End Date Armando Orozco MD [address] [place] [address] PCP - General Family Medicine 04/28/17 Recoating Machine Operator Relationship Specialty Start Date End Date Armando Orozco MD [address] [place] [address] PCP - General Family Medicine 04/28/17 Recoating Machine Operator Relationship Specialty Start Date End Date Armando Orozco MD [address] [place] [address] PCP - General Family Medicine 04/28/17 Recoating Machine Operator Relationship Specialty Start Date End Date Armadno Orozco MD [address] [place] [address] PCP - General Family Medicine 04/28/17 Recoating Machine Operator Relationship Specialty Start Date End Date Armando Orozco MD [address] [facility], [place] [address] PCP - General Family Medicine 04/28/17 Recoating Machine Operator Relationship Specialty Start Date End Date Armando Orozco MD [address] [facility], [place] [address] PCP - General Family Medicine 04/28/17 Team Status: Inactive Member Role Status Dates Dr. Armando Orozco MD Primary Care Provider, Referr ing Provider Active Dr. Yumiko Lizama MD Attending Provider Active Team Status: Inactive Member Role Status Dates Dr. Armando Orozco MD Primary Care Provider, Referr ing Provider Active SARAH Vasquez Attending Provider Active Team Status: Inactive Member Role Status Dates Dr. Armando Orozco MD Primary Care Pr ovider, Attending Provider, Referring Provider Active Recoating Machine Operator Relationship Specialty Start Date End Date Armando Orozco MD [address] [place] [address] PCP - General Family Medicine 04/28/17 Recoating Machine Operator Relationship Specialty Start Date End Date Armando Orozco MD [address] [place] [address] PCP - General Family Medicine 04/28/17 Recoating Machine Operator Relationship Specialty Start Date End Date Armando Orozco MD [address] [place] [address] PCP - General Family Medicine 04/28/17 Recoating Machine Operator Relationship Specialty Start Date End Date Armando Orozco MD [address] [facility] [address] [place] [address] PCP - General Family Medicine 04/28/21 Recoating Machine Operator Relationship Specialty Start Date End Date Armando Orozco MD [address] [place] [address] PCP - General Family Medicine 04/28/17 Recoating Machine Operator Relationship Specialty Start Date End Date Armando Orozco MD [address] [facility] [address] [place], [place] [address] PCP - General Family Medicine 04/28/21 Team Status: Inactive Member Role Status Dates Dr. Armando Orozco MD Primary Care Provider, Referr ing Provider Active SARAH Valdivia Attending Provider Active Team Status: Inactive Member Role Status Dates Dr. Armando Orozco MD Primary Care Provider Active SARAH Valdivia Attending Provider, Referring Provid er Active Recoating Machine Operator Relationship Specialty Start Date End Date Armando Orozco MD [address] [place] [address] PCP - General Family Medicine 04/28/17 Recoating Machine Operator Relationship Specialty Start Date End Date Armando Orozco MD [address] [place] [address] PCP - General Family Medicine 04/28/17 Recoating Machine Operator Relationship Specialty Start Date End Date Armando Orozco MD [address] [place] [address] PCP - General Family Medicine 04/28/17 Recoating Machine Operator Relationship Specialty Start Date End Date Armando Orozco MD [address] [place] [address] PCP - General Family Medicine 04/28/17 Recoating Machine Operator Relationship Specialty Start Date End Date Armando Orozco MD [address] [place] [address] PCP - General Family Medicine 04/28/17 Team Status: Active Member Role Status Dates Dr. Armando Orozco MD Primary Care Provider Active Dr. Gregory Benjamin MD Attending Provider Active SARAH Valdivia Referring Provider Active Team Status: Inactive Member Role Status Dates Dr. Armando Orozco MD Primary Care Provider, Referr ing Provider Active Qing Sheridan PA, PA Attending Provider Active Team Status: Active Member Role Status Dates Dr. Armando Orozco MD Primary Care Provider Active Dr. Matthieu Gomez DO Emergency Provider Active Dr. Tahira Meadows DO Attending Provider Active Team Status: Inactive Member Role Status Dates Dr. Armando Orozco MD Primary Care Provider Active Dr. Gregory Conroy DO Attending Provider, Emergency P sheng Active Team Status: Active Member Role Status Dates Dr. Armando Orozco MD Primary Care Provider Active Dr. Matthieu Gomez DO Emergency Provider Active Dr. Tahira Meadows DO Admit Provider, Att ending Provider, Referring Provider Active Team Status: Active Member Role Status Dates Dr. Armando Orozco MD Primary Care Provider Active Dr. Yumiko Lizama MD Attending Provider Active Team Status: Active Member Role Status Dates Dr. Armando Orozco MD Primary Care Provider Active Dr. Matthieu Gomez DO Emergency Provider Active Dr. Tahira Meadows DO Admit Provider, Ref erring Provider, Other Provider Active Jonny Young MD Other Provider Active Dr. Vanessa Waldron MD Other Provider Active Jennifer Gonzalez MD Other Provider Active Dr. Minoo Silver DO Other Provider Active Dr. Anabell Bang MD Other Provider Active Dr. Freddy Buchanan MD Other Provider Active Dr. Hannah Cobos MD Other Provider Active Dr. Donald Ward MD Other Provider Active Dr. Joselyn Meadows MD Other Provider Active Angie Cook MD Other Provider Active Dr. Federico Jones MD Other Provider Active Dr. Katarzyna Brock MD Other Provider Active Dr. Raysa Hutton MD Other Provider Active Dr. Little Aden MD Other Provider Active Dr. Stan Gar MD Other Provider Active Dr. Sabi Stout MD Other Provider Active Dr. Fareed Wagoner MD Other Provider Active Dr. Letha Meadows MD Other Provider Active Kelby Cordoba MD Other Provider Active Dr. Jose Ortega MD Attending Provider, Other Provi song Active Team Status: Inactive Member Role Status Dates Dr. Armando Orozco MD Primary Care Provider Active Dr. Matthieu Gomez , Emergency Provider Active Dr. Tahira Meadows DO Admit Provider, Ref erring Provider, Other Provider Active Jonny Young MD Other Provider Active Dr. Vanessa Waldron MD Other Provider Active Jennifer Gonzalez MD Other Provider Active Dr. Minoo Silver DO Other Provider Active Dr. Anabell Bang MD Other Provider Active Dr. Freddy Buchanan MD Other Provider Active Dr. Hannah Cobos MD Other Provider Active Dr. Donald Ward MD Other Provider Active Dr. Joselyn Meadows MD Other Provider Active Angie Cook MD Other Provider Active Dr. Federico Jones MD Other Provider Active Dr. Katarzyna Brock MD Other Provider Active Dr. Raysa Hutton MD Other Provider Active Dr. Little Aden MD Other Provider Active Dr. Stan Gar MD Other Provider Active Dr. Sabi Stout MD Other Provider Active Dr. Fareed Wagoner MD Other Provider Active Dr. Letha Meadows MD Other Provider Active Kelby Cordoba MD Other Provider Active Dr. Jose Ortega MD Attending Provider Active Recoating Machine Operator Relationship Specialty Start Date End Date Armando Orozco MD [address] [place] [address] PCP - General Family Medicine 04/28/17 Recoating Machine Operator Relationship Specialty Start Date End Date Armando Orozco MD [address] [place], [place] [address] PCP - General Family Medicine 04/28/17 Team Status: Active Member Role Status Dates Dr. Armando Orozco MD Primary Care Provider Active Dr. Matthieu Gomez , Emergency Provider Active Dr. Tahira Meadows DO Admit Provider, Other Provider Ac luciave Jonny Young MD Other Provider Active Dr. Vanessa Waldron MD Other Provider Active Jennifer Gonzalez MD Other Provider Active Dr. Minoo Silver DO Other Provider Active Dr. Anabell Bang MD Other Provider Active Dr. Freddy Buchanan MD Other Provider Active Dr. Hannah Cobos MD Other Provider Active Dr. Donald Ward MD Other Provider Active Dr. Joselyn Meadows MD Other Provider Active Angie Cook MD Other Provider Active Dr. Federico Jones MD Other Provider Active Dr. Katarzyna Brock MD Other Provider Active Dr. Raysa Hutton MD Other Provider Active Dr. Little Aden MD Other Provider Active Dr. Stan Gar MD Other Provider Active Dr. Sabi Stout MD Other Provider Active Dr. Fareed Wagoner MD Other Provider Active Dr. Letha Meadows MD Other Provider Active Kelby Cordoba MD Other Provider Active Dr. Jose Ortega MD Attending Provider, Other Provi song Active Team Status: Inactive Member Role Status Dates Dr. Armando Orozco MD Primary Care Provider Active Dr. Jose Barrera MD Attending Provider, Referring Provider Active Dr. Jose Ortega MD Other Provider Active Recoating Machine Operator Relationship Specialty Start Date End Date Armando Orozco MD [address] [place] [address] PCP - General Family Medicine 04/28/17 Team Status: Active Member Role Status Dates Dr. Armando Orozco MD Primary Care Provider Active Dr. Izabella Mendoza MD Emergency Provider Active Dr. Gentry Thomson , DO Admit Provider, Attending Provider Active Team Status: Active Member Role Status Dates Dr. Armando Orozco MD Primary Care Provider Active Dr. Izabella Mendoza MD Emergency Provider Active Dr. Gentry Thomson , DO Admit Provider, Other Pro vider Active Dr. Tahira Meadows DO Attending Provider, Other Provide r Active Team Status: Active Member Role Status Dates Dr. Armando Orozoc MD Primary Care Provider Active Dr. Izabella Mendoza MD Emergency Provider Active Dr. Gentry Thomson DO Admit Provider, Other Pro vider Active Dr. Tahira Meadows DO Attending Provider, Other Provide r Active Jonny Young MD Other Provider Active Dr. Vanessa Waldron MD Other Provider Active Jennifer Gonzalez MD Other Provider Active Dr. Minoo Silver , DO Other Provider Active Dr. Anabell Bang MD Other Provider Active Dr. Freddy Buchanan MD Other Provider Active Dr. Hannah Cobos MD Other Provider Active Dr. Donald Ward MD Other Provider Active Dr. Joselyn Meadows MD Other Provider Active Angie Cook MD Other Provider Active Dr. Federico Jones MD Other Provider Active Dr. Katarzyna Brock MD Other Provider Active Dr. Raysa Hutton MD Other Provider Active Dr. Little Aden MD Other Provider Active Dr. Stan Gar MD Other Provider Active Dr. Sabi Stout MD Other Provider Active Dr. Fareed Wagoner MD Other Provider Active Dr. Letha Meadows MD Other Provider Active Kelby Cordoba MD Other Provider Active Team Status: Inactive Member Role Status Dates Dr. Armando Orozco MD Primary Care Provider Active Dr. Izabella Mendoza MD Emergency Provider Active Dr. Gentry Thomson , DO Admit Provider, Other Pro vider Active Dr. Tahira Meadows , DO Attending Provider Active Jonny Young MD Other Provider Active Dr. Vanessa Waldron MD Other Provider Active Jennifer Gonzalez MD Other Provider Active Dr. Minoo Silver , DO Other Provider Active Dr. Anabell Bang MD Other Provider Active Dr. Freddy Buchanan MD Other Provider Active Dr. Hannah Cobos MD Other Provider Active Dr. Donald Ward MD Other Provider Active Dr. Joselyn Meadows MD Other Provider Active Angie Cook MD Other Provider Active Dr. Federico Jones MD Other Provider Active Dr. Katarzyna Brock MD Other Provider Active Dr. Raysa Hutton MD Other Provider Active Dr. Little Aden MD Other Provider Active Dr. Stan Gar MD Other Provider Active Dr. Sabi Stout MD Other Provider Active Dr. Fareed Wagoner MD Other Provider Active Dr. Letha Meadows MD Other Provider Active Kelby Cordoba MD Other Provider Active Recoating Machine Operator Relationship Specialty Start Date End Date Armando Orozco MD [address] [place] [address] PCP - General Family Medicine 04/28/17 Recoating Machine Operator Relationship Specialty Start Date End Date Armando Orozco MD [address] [place] [address] PCP - General Family Medicine 04/28/17 Recoating Machine Operator Relationship Specialty Start Date End Date Armando Orozco MD [address] [place] [address] PCP - General Family Medicine 04/28/17 Recoating Machine Operator Relationship Specialty Start Date End Date Armando Orozco MD [address] [place] [address] PCP - General Family Medicine 04/28/17 Recoating Machine Operator Relationship Specialty Start Date End Date Armando Orozco MD [address] [place] [address] PCP - General Family Medicine 04/28/17 Recoating Machine Operator Relationship Specialty Start Date End Date Armando Orozco MD [address] [place] [address] PCP - General Family Medicine 04/28/17 Recoating Machine Operator Relationship Specialty Start Date End Date Armando Oroczo MD [address] [place] [address] PCP - General Family Medicine 04/28/17 Recoating Machine Operator Relationship Specialty Start Date End Date Armando Orozco MD [address] [place] [address] PCP - General Family Medicine 04/28/17 Recoating Machine Operator Relationship Specialty Start Date End Date Armando Orozco MD [address] [place] [address] PCP - General Family Medicine 04/28/17 Recoating Machine Operator Relationship Specialty Start Date End Date Armando Orozco MD [address] [place] [address] PCP - General Family Medicine 04/28/17 Recoating Machine Operator Relationship Specialty Start Date End Date Armando Orozco MD [address] [place] [address] PCP - General Family Medicine 04/28/17 Recoating Machine Operator Relationship Specialty Start Date End Date Armando Orozco MD [address] [place] [address] PCP - General Family Medicine 04/28/17 Recoating Machine Operator Relationship Specialty Start Date End Date Armando Orozco MD [address] [place] [address] PCP - General Family Medicine 04/28/17 Recoating Machine Operator Relationship Specialty Start Date End Date Armando Orozco MD [address] [place] [address] PCP - General 07/12/19 Recoating Machine Operator Relationship Specialty Start Date End Date Armando Orozco MD [address] [place] [address] PCP - General Family Medicine 04/28/17 Emelia Lynn APRN.CNP [address] [place] [address] Welfare Investigator Family [facility] 08/18/24 Kushal Weldon APRN.PHARMACOVIGILANCE SAFETY EXPERT [address] [facility] [address] [facility] 08/27/24 Recoating Machine Operator Relationship Specialty Start Date End Date Armando Orozco MD [address] [place] [address] PCP - General Family Medicine 04/28/17 Emelia Lynn APRN.PHARMACOVIGILANCE SAFETY EXPERT [address] [place] [address] [facility] 08/18/24 Kushal Weldon APRN.PHARMACOVIGILANCE SAFETY EXPERT [address] [place] [address] [facility] 08/27/24 Recoating Machine Operator Relationship Specialty Start Date End Date Armando Orozco MD [address] [place] [address] PCP - General Family Medicine 04/28/17 Emelia Lynn APRN.PHARMACOVIGILANCE SAFETY EXPERT [address] [facility] [address] [facility] 08/18/24 Kushal Weldon APRN.PHARMACOVIGILANCE SAFETY EXPERT [address] [place] [address] [facility] 08/27/24 Recoating Machine Operator Relationship Specialty Start Date End Date Armando Orozco MD [address] [place] [address] PCP - General Family Medicine 04/28/17 Emelia Lynn APRN.PHARMACOVIGILANCE SAFETY EXPERT [address] [place] [address] Welfare Investigator Family Medicine 08/18/24 Kushal Weldon APRN.PHARMACOVIGILANCE SAFETY EXPERT [address] [place] [address] Welfare Investigator Family Medicine 08/27/24 Recoating Machine Operator Relationship Specialty Start Date End Date Armando Orozco MD [address] [place] [address] PCP - General Family Medicine 04/28/17 Emelia Lynn APRN.PHARMACOVIGILANCE SAFETY EXPERT [address] [place] [address] Welfare Investigator Family Medicine 08/18/24 Kushal Weldon APRN.PHARMACOVIGILANCE SAFETY EXPERT [address] [place] [address] Welfare Investigator Family Medicine 08/27/24 Recoating Machine Operator Relationship Specialty Start Date End Date Armando Orozco MD [address] [place] [address] PCP - General Family Medicine 04/28/17 Emelia Lynn APRN.PHARMACOVIGILANCE SAFETY EXPERT [address] [place] [address] Welfare Investigator Family Medicine 08/18/24 Kushal Weldon APRN.PHARMACOVIGILANCE SAFETY EXPERT [address] [place] [address] Welfare Investigator Family Medicine 08/27/24 Recoating Machine Operator Relationship Specialty Start Date End Date Armando Orozco MD [address] [place] [address] PCP - General Family Medicine 04/28/17 Emelia Lynn APRN.PHARMACOVIGILANCE SAFETY EXPERT [address] [place] [address] Welfare Investigator Family Medicine 08/18/24 Kushal Weldon APRN.PHARMACOVIGILANCE SAFETY EXPERT [address] [place] [address] Welfare Investigator Family Medicine 08/27/24 Recoating Machine Operator Relationship Specialty Start Date End Date Armando Orozco MD [address] [place] [address] PCP - General Family Medicine 04/28/17 Emelia Lynn APRN.PHARMACOVIGILANCE SAFETY EXPERT [address] [place] [address] Welfare Investigator Family Medicine 08/18/24 Kushal Weldon APRN.PHARMACOVIGILANCE SAFETY EXPERT [address] [place] [address] Welfare Investigator Family Medicine 08/27/24 Recoating Machine Operator Relationship Specialty Start Date End Date Armando Orozco MD [address] [place] [address] PCP - General Family Medicine 04/28/17 Emelia Lynn APRN.PHARMACOVIGILANCE SAFETY EXPERT [address] [place] [address] Welfare Investigator Family Medicine 08/18/24 Kushal Weldon APRN.PHARMACOVIGILANCE SAFETY EXPERT [address] [place] [address] Welfare Investigator Family [facility] 08/27/24 Recoating Machine Operator Relationship Specialty Start Date End Date Armando Orozco MD [address] [place] [address] PCP - General Family Medicine 04/28/17 Emelia Lynn APRN.PHARMACOVIGILANCE SAFETY EXPERT [address] [place] [address] Welfare Investigator Family Medicine 08/18/24 Kushal Weldon APRN.PHARMACOVIGILANCE SAFETY EXPERT [address] [place] [address] [facility] 08/27/24 Recoating Machine Operator Relationship Specialty Start Date End Date Armando Orozco MD [address] [place] [address] PCP - General Family Medicine 04/28/17 Emelia Lynn APRN.PHARMACOVIGILANCE SAFETY EXPERT [address] [place] [address] [facility] 08/18/24 Kushal Weldon APRN.PHARMACOVIGILANCE SAFETY EXPERT [address] [place] [address] [facility] 08/27/24 Team Status: Active Member Role Status Dates Dr. Armando Orozco MD Primary Care Provider Active Team Status: Inactive Member Role Status Dates Dr. Armando Orozco MD Primary Care Provider Active Start: August 30, 2024 End: August 30, 2024 Dr. Armando Orozoc MD Referring Provider Active Start: August 30, 2024 End: August 30, 2024 SARAH Valdivia Attending Provider Active Star t: August 30, 2024 End: August 30, 2024 Team Status: Inactive Member Role Status Dates Dr. Armando Orozco MD Primary Care Provider Active Start: September 25, 2024 End: September 25, 2024 Dr. Armando Orozco MD Referring Provider Active Start: September 25, 2024 End: September 25, 2024 Qing Sheridan PA, PA Attending Provider Active Start: September 25, 2024 End: September 25, 2024 Team Status: Inactive Member Role Status Dates Dr. Armando Orozco MD Primary Care Provider Active Start: December 18, 2024 End: December 18, 2024 Dr. Jaguar Cannon DPM Attending Provider Active Start: December 18, 2024 End: December 18, 2024 Dr. Jaguar Cannon DPM Referring Provider Active Start: December 18, 2024 End: December 18, 2024 Recoating Machine Operator Relationship Specialty Start Date End Date Armando Orozco MD [address] [facility] [address] PCP - General Family Medicine 04/28/17 Emelia Lynn, RELIABILITY TECHNICIAN.PHARMACOVIGILANCE SAFETY EXPERT [address] [place] [address] Welfare Investigator Family Medicine 08/18/24 Kushal Weldon RELIABILITY TECHNICIAN.PHARMACOVIGILANCE SAFETY EXPERT [address] [place] [address] Welfare Investigator Family Medicine 08/27/24 Recoating Machine Operator Relationship Specialty Start Date End Date Armando Orozco MD [address] [place] [address] PCP - General Family Medicine 04/28/17 Emelia Lynn APRN.PHARMACOVIGILANCE SAFETY EXPERT [address] [place] [address] Welfare Investigator Family Medicine 08/18/24 Kushal Weldon RELIABILITY TECHNICIAN.PHARMACOVIGILANCE SAFETY EXPERT [address] [place] [address] Welfare Investigator Family Medicine 08/27/24 Team Status: Active Member Role Status Dates Dr. Romie Batista MD Attending Provider Active Start: December 18, 2024 Dr. Jaguar Cannon DPM Referring Provider Active Start: December 18, 2024 Team Status: Inactive Member Role Status Dates Dr. Armando Orozco MD Primary Care Provider Active Start: January 30, 2025 End: January 30, 2025 Dr. Bibiana James DO Attending Provider Active Start: January 30, 2025 End: January 30, 2025 Dr. Bibiana James DO Referring Provider Active Start: January 30, 2025 End: January 30, 2025 Dr. Bibiana James DO Emergency Provider Active Start: January 30, 2025 End: January 30, 2025 Team Status: Inactive Member Role Status Dates Dr. Armando Orozco MD Primary Care Provider Active Start: February 07, 2025 End: February 07, 2025 SARAH Valdivia Attending Provider Active Star t: February 07, 2025 End: February 07, 2025 Dr. Jaguar Cannon DPM Referring Provider Active Start: February 07, 2025 End: February 07, 2025 Team Status: Active Member Role Status Dates Dr. Armando Orozco MD Primary Care Provider Active Start: February 17, 2025 Dr. Armando Orozco MD Referring Provider Active Start: February 17, 2025 SARAH Peterson Attending Provider Active Star t: February 17, 2025 Team Status: Inactive Member Role Status Dates Dr. Armando Orozco MD Primary Care Provider Active Start: February 17, 2025 End: February 17, 2025 Dr. Frankie Quispe MD Attending Provider Active S tart: February 17, 2025 End: February 17, 2025 Team Status: Inactive Member Role Status Dates Dr. Armando Orozco MD Primary Care Provider Active Start: February 17, 2025 End: February 17, 2025 Dr. Armando Orozco MD Referring Provider Active Start: February 17, 2025 End: February 17, 2025 SARAH Peterson Attending Provider Active Star t: February 17, 2025 End: February 17, 2025 Recoating Machine Operator Relationship Specialty Start Date End Date Armando Orozco MD [address] [place] [address] PCP - General Family Medicine 04/28/17 Kushal Weldon APRN.CNP [address] [place] [id number] Welfare Investigator Family Medicine 08/27/24 Team Status: Active Member Role/Relationship Status Dates Dr. Armando Orozco MD Primary Care Provider Active Team Status: Inactive Member Role/Relationship Status Dates Dr. Armando Orozco MD Primary Care Provider Active Start: December 18, 2024 End: December 18, 2024 Dr. Jaguar Cannon DPM Attending Provider Active Start: December 18, 2024 End: December 18, 2024 Dr. Jaguar Cannon DPM Referring Provider Active Start: December 18, 2024 End: December 18, 2024 Team Status: Active Member Role/Relationship Status Dates Dr. Romie Batista MD Attending Provider Active Start: December 18, 2024 Dr. Jaguar Cannon DPM Referring Provider Active Start: December 18, 2024 Team Status: Inactive Member Role/Relationship Status Dates Dr. Armando Orozco MD Primary Care Provider Active Start: January 30, 2025 End: January 30, 2025 Dr. Bibiana James DO Attending Provider Active Start: January 30, 2025 End: January 30, 2025 Dr. Bibiana James DO Referring Provider Active Start: January 30, 2025 End: January 30, 2025 Dr. Bibiana James DO Emergency Provider Active Start: January 30, 2025 End: January 30, 2025 Team Status: Inactive Member Role/Relationship Status Dates Dr. Armando Orozco MD Primary Care Provider Active Start: February 07, 2025 End: February 07, 2025 SARAH Valdivia Attending Provider Active Star t: February 07, 2025 End: February 07, 2025 Dr. Jaguar Cannon DPM Referring Provider Active Start: February 07, 2025 End: February 07, 2025 Team Status: Inactive Member Role/Relationship Status Dates Dr. Armando Orozco MD Primary Care Provider Active Start: February 17, 2025 End: February 17, 2025 Dr. Armando Orozco MD Referring Provider Active Start: February 17, 2025 End: February 17, 2025 SARAH Peterson Attending Provider Active Star t: February 17, 2025 End: February 17, 2025 Team Status: Inactive Member Role/Relationship Status Dates Dr. Armando Orozco MD Primary Care Provider Active Start: February 17, 2025 End: February 17, 2025 Dr. Frankie Quispe MD Attending Provider Active S tart: February 17, 2025 End: February 17, 2025 Team Status: Inactive Member Role/Relationship Status Dates Dr. Armando Orozco MD Primary Care Provider Active Start: March 11, 2025 End: March 11, 2025 Dr. Armando Orozco MD Referring Provider Active Start: March 11, 2025 End: March 11, 2025 Dr. Frankie Quispe MD Attending Provider Active S tart: March 11, 2025 End: March 11, 2025 Team Status: Inactive Member Role/Relationship Status Dates Dr. Armando Orozco MD Primary Care Provider Active Start: March 11, 2025 Dr. Alma Lakhani MD Attending Provider Active Start: March 11, 2025 Team Status: Inactive Member Role/Relationship Status Dates Dr. Armando Orozco MD Primary Care Provider Active Start: March 11, 2025 End: March 11, 2025 Dr. Armando Oorzco MD Referring Provider Active Start: March 11, 2025 End: March 11, 2025 Dr. Frankie Quispe MD Attending Provider Active S tart: March 11, 2025 End: March 11, 2025 Team Status: Inactive Member Role/Relationship Status Dates Dr. Armando Orozco MD Primary Care Provider Active Start: April 11, 2025 End: April 11, 2025 Dr. Armando Orozco MD Referring Provider Active Start: April 11, 2025 End: April 11, 2025 Dr. Alma Lakhani MD Attending Provider Active Start: April 11, 2025 End: April 11, 2025 Team Status: Inactive Member Role/Relationship Status Dates Dr. Armando Orozco MD Primary Care Provider Active Start: April 15, 2025 End: April 15, 2025 Dr. Armando Orozco MD Referring Provider Active Start: April 15, 2025 End: April 15, 2025 Dr. Alma Lakhani MD Attending Provider Active Start: April 15, 2025 End: April 15, 2025 Team Status: Inactive Member Role/Relationship Status Dates Dr. Armando Orozco MD Primary Care Provider Active Start: January 30, 2025 End: January 30, 2025 Dr. Bibiana James DO Attending Provider Active Start: January 30, 2025 End: January 30, 2025 Dr. Bibiana James DO Referring Provider Active Start: January 30, 2025 End: January 30, 2025 Dr. Bibiana James DO Emergency Provider Active Start: January 30, 2025 End: January 30, 2025 Team Status: Inactive Member Role/Relationship Status Dates Dr. Armando Orozco MD Primary Care Provider Active Start: February 07, 2025 End: February 07, 2025 SARAH Valdivia Attending Provider Active Star t: February 07, 2025 End: February 07, 2025 Dr. Jaguar Cannon DPM Referring Provider Active Start: February 07, 2025 End: February 07, 2025 Team Status: Inactive Member Role/Relationship Status Dates Dr. Armando Orozco MD Primary Care Provider Active Start: February 17, 2025 End: February 17, 2025 Dr. Armando Orozco MD Referring Provider Active Start: February 17, 2025 End: February 17, 2025 SARAH Peterson Attending Provider Active Star t: February 17, 2025 End: February 17, 2025 Team Status: Inactive Member Role/Relationship Status Dates Dr. Armando Oroczo MD Primary Care Provider Active Start: February 17, 2025 End: February 17, 2025 Dr. Frankie Quispe MD Attending Provider Active S tart: February 17, 2025 End: February 17, 2025 Team Status: Inactive Member Role/Relationship Status Dates Dr. Armando Orozco MD Primary Care Provider Active Start: March 11, 2025 Dr. Alma Lakhani MD Attending Provider Active Start: March 11, 2025 Team Status: Inactive Member Role/Relationship Status Dates Dr. Armando Orozco MD Primary Care Provider Active Start: March 11, 2025 End: March 11, 2025 Dr. Armando Orozco MD Referring Provider Active Start: March 11, 2025 End: March 11, 2025 Dr. Frankie Quispe MD Attending Provider Active S tart: March 11, 2025 End: March 11, 2025 Team Status: Inactive Member Role/Relationship Status Dates Dr. Armando Orozco MD Primary Care Provider Active Start: April 11, 2025 End: April 11, 2025 Dr. Armando Orozco MD Referring Provider Active Start: April 11, 2025 End: April 11, 2025 Dr. Alma Lakhani MD Attending Provider Active Start: April 11, 2025 End: April 11, 2025 Team Status: Inactive Member Role/Relationship Status Dates Dr. Armando Orozco MD Primary Care Provider Active Start: April 15, 2025 End: April 15, 2025 Dr. Armando Orozco MD Referring Provider Active Start: April 15, 2025 End: April 15, 2025 Dr. Alma Lakhani MD Attending Provider Active Start: April 15, 2025 End: April 15, 2025 Team Status: Active Member Role/Relationship Status Dates Dr. Armando Orozco MD Primary Care Provider Active Start: April 22, 2025 Dr. Frankie Quispe MD Attending Provider Active S tart: April 22, 2025 Dr. Frankie Quispe MD Referring Provider Active S tart: April 22, 2025 Team Status: Inactive Member Role/Relationship Status Dates Dr. Armando Orozco MD Primary Care Provider Active Start: April 22, 2025 End: April 22, 2025 Dr. Armando Orozco MD Referring Provider Active Start: April 22, 2025 End: April 22, 2025 Dr. Alma Lakhani MD Attending Provider Active Start: April 22, 2025 End: April 22, 2025 Source Comments (unrecognize d section and content) In the event this informatio n is protected by the Federal Confidentiality of Alcohol and Drug Abuse Patient Records regulations: The Federal rules restrict any use of the information to criminally investigate or prosecute any alcohol or drug abuse patient.[facility] the event this information is protected by the Federal Confidentiality of Alcohol and Drug Abuse Patient Records regulations: The Federal rules restrict any use of the information to criminally investigate or prosecute any alcohol or drug abuse patient.[facility]In the event this information is protected by the Federal Confidentiality of Alcohol and Drug Abuse Patient Records regulations: The Federal rules restrict any use of the information to criminally investigate or prosecute any alcohol or drug abuse patient.[facility]In the event this information is protected by the Federal Confidentiality of Alcohol and Drug Abuse Patient Records regulations: The Federal rules restrict any use of the information to criminally investigate or prosecute any alcohol or drug abuse patient.[facility]In the event this information is protected by the Federal Confidentiality of Alcohol and Drug Abuse Patient Records regulations: The Federal rules restrict any use of the information to criminally investigate or prosecute any alcohol or drug abuse patient.[facility] HospitalIn the event this information is protected by the Federal Confidentiality of Alcohol and Drug Abuse Patient Records regulations: The Federal rules restrict any use of the information to criminally investigate or prosecute any alcohol or drug abuse patient.[facility] HospitalIn the event this information is protected by the Federal Confidentiality of Alcohol and Drug Abuse Patient Records regulations: The Federal rules restrict any use of the information to criminally investigate or prosecute any alcohol or drug abuse patient.[facility] HospitalIn the event this information is protected by the Federal Confidentiality of Alcohol and Drug Abuse Patient Records regulations: The Federal rules restrict any use of the information to criminally investigate or prosecute any alcohol or drug abuse patient.[facility] HospitalIn the event this information is protected by the Federal Confidentiality of Alcohol and Drug Abuse Patient Records regulations: The Federal rules restrict any use of the information to criminally investigate or prosecute any alcohol or drug abuse patient.[facility] HospitalIn the event this information is protected by the Federal Confidentiality of Alcohol and Drug Abuse Patient Records regulations: The Federal rules restrict any use of the information to criminally investigate or prosecute any alcohol or drug abuse patient.[facility] HospitalIn the event this information is protected by the Federal Confidentiality of Alcohol and Drug Abuse Patient Records regulations: The Federal rules restrict any use of the information to criminally investigate or prosecute any alcohol or drug abuse patient.[facility] HospitalIn the event this information is protected by the Federal Confidentiality of Alcohol and Drug Abuse Patient Records regulations: The Federal rules restrict any use of the information to criminally investigate or prosecute any alcohol or drug abuse patient.[facility] HospitalIn the event this information is protected by the Federal Confidentiality of Alcohol and Drug Abuse Patient Records regulations: The Federal rules restrict any use of the information to criminally investigate or prosecute any alcohol or drug abuse patient.[facility] HospitalIn the event this information is protected by the Federal Confidentiality of Alcohol and Drug Abuse Patient Records regulations: The Federal rules restrict any use of the information to criminally investigate or prosecute any alcohol or drug abuse patient.[facility] HospitalIn the event this information is protected by the Federal Confidentiality of Alcohol and Drug Abuse Patient Records regulations: The Federal rules restrict any use of the information to criminally investigate or prosecute any alcohol or drug abuse patient.[facility] HospitalIn the event this information is protected by the Federal Confidentiality of Alcohol and Drug Abuse Patient Records regulations: The Federal rules restrict any use of the information to criminally investigate or prosecute any alcohol or drug abuse patient.[facility] HospitalIn the event this information is protected by the Federal Confidentiality of Alcohol and Drug Abuse Patient Records regulations: The Federal rules restrict any use of the information to criminally investigate or prosecute any alcohol or drug abuse patient.[facility] HospitalIn the event this information is protected by the Federal Confidentiality of Alcohol and Drug Abuse Patient Records regulations: The Federal rules restrict any use of the information to criminally investigate or prosecute any alcohol or drug abuse patient.[facility] HospitalIn the event this information is protected by the Federal Confidentiality of Alcohol and Drug Abuse Patient Records regulations: The Federal rules restrict any use of the information to criminally investigate or prosecute any alcohol or drug abuse patient.[facility] HospitalIn the event this information is protected by the Federal Confidentiality of Alcohol and Drug Abuse Patient Records regulations: The Federal rules restrict any use of the information to criminally investigate or prosecute any alcohol or drug abuse patient.[facility] HospitalIn the event this information is protected by the Federal Confidentiality of Alcohol and Drug Abuse Patient Records regulations: The Federal rules restrict any use of the information to criminally investigate or prosecute any alcohol or drug abuse patient.[facility] HospitalIn the event this information is protected by the Federal Confidentiality of Alcohol and Drug Abuse Patient Records regulations: The Federal rules restrict any use of the information to criminally investigate or prosecute any alcohol or drug abuse patient.[facility] HospitalIn the event this information is protected by the Federal Confidentiality of Alcohol and Drug Abuse Patient Records regulations: The Federal rules restrict any use of the information to criminally investigate or prosecute any alcohol or drug abuse patient.[facility] HospitalIn the event this information is protected by the Federal Confidentiality of Alcohol and Drug Abuse Patient Records regulations: The Federal rules restrict any use of the information to criminally investigate or prosecute any alcohol or drug abuse patient.[facility] HospitalIn the event this information is protected by the Federal Confidentiality of Alcohol and Drug Abuse Patient Records regulations: The Federal rules restrict any use of the information to criminally investigate or prosecute any alcohol or drug abuse patient.[facility] HospitalIn the event this information is protected by the Federal Confidentiality of Alcohol and Drug Abuse Patient Records regulations: The Federal rules restrict any use of the information to criminally investigate or prosecute any alcohol or drug abuse patient.[facility] HospitalIn the event this information is protected by the Federal Confidentiality of Alcohol and Drug Abuse Patient Records regulations: The Federal rules restrict any use of the information to criminally investigate or prosecute any alcohol or drug abuse patient.[facility] HospitalIn the event this information is protected by the Federal Confidentiality of Alcohol and Drug Abuse Patient Records regulations: The Federal rules restrict any use of the information to criminally investigate or prosecute any alcohol or drug abuse patient.[facility] HospitalIn the event this information is protected by the Federal Confidentiality of Alcohol and Drug Abuse Patient Records regulations: The Federal rules restrict any use of the information to criminally investigate or prosecute any alcohol or drug abuse patient.[facility] HospitalIn the event this information is protected by the Federal Confidentiality of Alcohol and Drug Abuse Patient Records regulations: The Federal rules restrict any use of the information to criminally investigate or prosecute any alcohol or drug abuse patient.[facility] HospitalIn the event this information is protected by the Federal Confidentiality of Alcohol and Drug Abuse Patient Records regulations: The Federal rules restrict any use of the information to criminally investigate or prosecute any alcohol or drug abuse patient.[facility] HospitalIn the event this information is protected by the Federal Confidentiality of Alcohol and Drug Abuse Patient Records regulations: The Federal rules restrict any use of the information to criminally investigate or prosecute any alcohol or drug abuse patient.[facility] HospitalIn the event this information is protected by the Federal Confidentiality of Alcohol and Drug Abuse Patient Records regulations: The Federal rules restrict any use of the information to criminally investigate or prosecute any alcohol or drug abuse patient.[facility] HospitalIn the event this information is protected by the Federal Confidentiality of Alcohol and Drug Abuse Patient Records regulations: The Federal rules restrict any use of the information to criminally investigate or prosecute any alcohol or drug abuse patient.[facility] HospitalIn the event this information is protected by the Federal Confidentiality of Alcohol and Drug Abuse Patient Records regulations: The Federal rules restrict any use of the information to criminally investigate or prosecute any alcohol or drug abuse patient.[facility] HospitalIn the event this information is protected by the Federal Confidentiality of Alcohol and Drug Abuse Patient Records regulations: The Federal rules restrict any use of the information to criminally investigate or prosecute any alcohol or drug abuse patient.[facility] HospitalIn the event this information is protected by the Federal Confidentiality of Alcohol and Drug Abuse Patient Records regulations: The Federal rules restrict any use of the information to criminally investigate or prosecute any alcohol or drug abuse patient.[facility] HospitalIn the event this information is protected by the Federal Confidentiality of Alcohol and Drug Abuse Patient Records regulations: The Federal rules restrict any use of the information to criminally investigate or prosecute any alcohol or drug abuse patient.[facility] HospitalIn the event this information is protected by the Federal Confidentiality of Alcohol and Drug Abuse Patient Records regulations: The Federal rules restrict any use of the information to criminally investigate or prosecute any alcohol or drug abuse patient.[facility] HospitalIn the event this information is protected by the Federal Confidentiality of Alcohol and Drug Abuse Patient Records regulations: The Federal rules restrict any use of the information to criminally investigate or prosecute any alcohol or drug abuse patient.[facility] HospitalIn the event this information is protected by the Federal Confidentiality of Alcohol and Drug Abuse Patient Records regulations: The Federal rules restrict any use of the information to criminally investigate or prosecute any alcohol or drug abuse patient.[facility] HospitalIn the event this information is protected by the Federal Confidentiality of Alcohol and Drug Abuse Patient Records regulations: The Federal rules restrict any use of the information to criminally investigate or prosecute any alcohol or drug abuse patient.[facility] HospitalIn the event this information is protected by the Federal Confidentiality of Alcohol and Drug Abuse Patient Records regulations: The Federal rules restrict any use of the information to criminally investigate or prosecute any alcohol or drug abuse patient.[facility] HospitalIn the event this information is protected by the Federal Confidentiality of Alcohol and Drug Abuse Patient Records regulations: The Federal rules restrict any use of the information to criminally investigate or prosecute any alcohol or drug abuse patient.[facility] HospitalIn the event this information is protected by the Federal Confidentiality of Alcohol and Drug Abuse Patient Records regulations: The Federal rules restrict any use of the information to criminally investigate or prosecute any alcohol or drug abuse patient.[facility] HospitalIn the event this information is protected by the Federal Confidentiality of Alcohol and Drug Abuse Patient Records regulations: The Federal rules restrict any use of the information to criminally investigate or prosecute any alcohol or drug abuse patient.[facility] HospitalIn the event this information is protected by the Federal Confidentiality of Alcohol and Drug Abuse Patient Records regulations: The Federal rules restrict any use of the information to criminally investigate or prosecute any alcohol or drug abuse patient.[facility] HospitalIn the event this information is protected by the Federal Confidentiality of Alcohol and Drug Abuse Patient Records regulations: The Federal rules restrict any use of the information to criminally investigate or prosecute any alcohol or drug abuse patient.[facility] HospitalIn the event this information is protected by the Federal Confidentiality of Alcohol and Drug Abuse Patient Records regulations: The Federal rules restrict any use of the information to criminally investigate or prosecute any alcohol or drug abuse patient.[facility] HospitalIn the event this information is protected by the Federal Confidentiality of Alcohol and Drug Abuse Patient Records regulations: The Federal rules restrict any use of the information to criminally investigate or prosecute any alcohol or drug abuse patient.[facility] HospitalIn the event this information is protected by the Federal Confidentiality of Alcohol and Drug Abuse Patient Records regulations: The Federal rules restrict any use of the information to criminally investigate or prosecute any alcohol or drug abuse patient.[facility] HospitalIn the event this information is protected by the Federal Confidentiality of Alcohol and Drug Abuse Patient Records regulations: The Federal rules restrict any use of the information to criminally investigate or prosecute any alcohol or drug abuse patient.[facility] HospitalIn the event this information is protected by the Federal Confidentiality of Alcohol and Drug Abuse Patient Records regulations: The Federal rules restrict any use of the information to criminally investigate or prosecute any alcohol or drug abuse patient.[facility] HospitalIn the event this information is protected by the Federal Confidentiality of Alcohol and Drug Abuse Patient Records regulations: The Federal rules restrict any use of the information to criminally investigate or prosecute any alcohol or drug abuse patient.[facility] HospitalIn the event this information is protected by the Federal Confidentiality of Alcohol and Drug Abuse Patient Records regulations: The Federal rules restrict any use of the information to criminally investigate or prosecute any alcohol or drug abuse patient.[facility] HospitalIn the event this information is protected by the Federal Confidentiality of Alcohol and Drug Abuse Patient Records regulations: The Federal rules restrict any use of the information to criminally investigate or prosecute any alcohol or drug abuse patient.[facility] HospitalIn the event this information is protected by the Federal Confidentiality of Alcohol and Drug Abuse Patient Records regulations: The Federal rules restrict any use of the information to criminally investigate or prosecute any alcohol or drug abuse patient.[facility] HospitalIn the event this information is protected by the Federal Confidentiality of Alcohol and Drug Abuse Patient Records regulations: The Federal rules restrict any use of the information to criminally investigate or prosecute any alcohol or drug abuse patient.[facility] HospitalIn the event this information is protected by the Federal Confidentiality of Alcohol and Drug Abuse Patient Records regulations: The Federal rules restrict any use of the information to criminally investigate or prosecute any alcohol or drug abuse patient.[facility] HospitalIn the event this information is protected by the Federal Confidentiality of Alcohol and Drug Abuse Patient Records regulations: The Federal rules restrict any use of the information to criminally investigate or prosecute any alcohol or drug abuse patient.[facility] HospitalIn the event this information is protected by the Federal Confidentiality of Alcohol and Drug Abuse Patient Records regulations: The Federal rules restrict any use of the information to criminally investigate or prosecute any alcohol or drug abuse patient.[facility] HospitalIn the event this information is protected by the Federal Confidentiality of Alcohol and Drug Abuse Patient Records regulations: The Federal rules restrict any use of the information to criminally investigate or prosecute any alcohol or drug abuse patient.[facility] HospitalIn the event this information is protected by the Federal Confidentiality of Alcohol and Drug Abuse Patient Records regulations: The Federal rules restrict any use of the information to criminally investigate or prosecute any alcohol or drug abuse patient.[facility] HospitalIn the event this information is protected by the Federal Confidentiality of Alcohol and Drug Abuse Patient Records regulations: The Federal rules restrict any use of the information to criminally investigate or prosecute any alcohol or drug abuse patient.[facility] HospitalIn the event this information is protected by the Federal Confidentiality of Alcohol and Drug Abuse Patient Records regulations: The Federal rules restrict any use of the information to criminally investigate or prosecute any alcohol or drug abuse patient.[facility] HospitalIn the event this information is protected by the Federal Confidentiality of Alcohol and Drug Abuse Patient Records regulations: The Federal rules restrict any use of the information to criminally investigate or prosecute any alcohol or drug abuse patient.[facility] HospitalIn the event this information is protected by the Federal Confidentiality of Alcohol and Drug Abuse Patient Records regulations: The Federal rules restrict any use of the information to criminally investigate or prosecute any alcohol or drug abuse patient.[facility] HospitalIn the event this information is protected by the Federal Confidentiality of Alcohol and Drug Abuse Patient Records regulations: The Federal rules restrict any use of the information to criminally investigate or prosecute any alcohol or drug abuse patient.[facility] HospitalIn the event this information is protected by the Federal Confidentiality of Alcohol and Drug Abuse Patient Records regulations: The Federal rules restrict any use of the information to criminally investigate or prosecute any alcohol or drug abuse patient.[facility] HospitalIn the event this information is protected by the Federal Confidentiality of Alcohol and Drug Abuse Patient Records regulations: The Federal rules restrict any use of the information to criminally investigate or prosecute any alcohol or drug abuse patient.[facility] HospitalIn the event this information is protected by the Federal Confidentiality of Alcohol and Drug Abuse Patient Records regulations: The Federal rules restrict any use of the information to criminally investigate or prosecute any alcohol or drug abuse patient.[facility] HospitalIn the event this information is protected by the Federal Confidentiality of Alcohol and Drug Abuse Patient Records regulations: The Federal rules restrict any use of the information to criminally investigate or prosecute any alcohol or drug abuse patient.[facility] HospitalIn the event this information is protected by the Federal Confidentiality of Alcohol and Drug Abuse Patient Records regulations: The Federal rules restrict any use of the information to criminally investigate or prosecute any alcohol or drug abuse patient.[facility] HospitalIn the event this information is protected by the Federal Confidentiality of Alcohol and Drug Abuse Patient Records regulations: The Federal rules restrict any use of the information to criminally investigate or prosecute any alcohol or drug abuse patient.[facility] HospitalIn the event this information is protected by the Federal Confidentiality of Alcohol and Drug Abuse Patient Records regulations: The Federal rules restrict any use of the information to criminally investigate or prosecute any alcohol or drug abuse patient.[facility] HospitalIn the event this information is protected by the Federal Confidentiality of Alcohol and Drug Abuse Patient Records regulations: The Federal rules restrict any use of the information to criminally investigate or prosecute any alcohol or drug abuse patient.[facility] HospitalIn the event this information is protected by the Federal Confidentiality of Alcohol and Drug Abuse Patient Records regulations: The Federal rules restrict any use of the information to criminally investigate or prosecute any alcohol or drug abuse patient.[facility] HospitalIn the event this information is protected by the Federal Confidentiality of Alcohol and Drug Abuse Patient Records regulations: The Federal rules restrict any use of the information to criminally investigate or prosecute any alcohol or drug abuse patient.[facility] HospitalIn the event this information is protected by the Federal Confidentiality of Alcohol and Drug Abuse Patient Records regulations: The Federal rules restrict any use of the information to criminally investigate or prosecute any alcohol or drug abuse patient.[facility] HospitalIn the event this information is protected by the Federal Confidentiality of Alcohol and Drug Abuse Patient Records regulations: The Federal rules restrict any use of the information to criminally investigate or prosecute any alcohol or drug abuse patient.[facility] HospitalIn the event this information is protected by the Federal Confidentiality of Alcohol and Drug Abuse Patient Records regulations: The Federal rules restrict any use of the information to criminally investigate or prosecute any alcohol or drug abuse patient.[facility] HospitalIn the event this information is protected by the Federal Confidentiality of Alcohol and Drug Abuse Patient Records regulations: The Federal rules restrict any use of the information to criminally investigate or prosecute any alcohol or drug abuse patient.[facility] HospitalIn the event this information is protected by the Federal Confidentiality of Alcohol and Drug Abuse Patient Records regulations: The Federal rules restrict any use of the information to criminally investigate or prosecute any alcohol or drug abuse patient.[facility] HospitalIn the event this information is protected by the Federal Confidentiality of Alcohol and Drug Abuse Patient Records regulations: The Federal rules restrict any use of the information to criminally investigate or prosecute any alcohol or drug abuse patient.[facility] HospitalIn the event this information is protected by the Federal Confidentiality of Alcohol and Drug Abuse Patient Records regulations: The Federal rules restrict any use of the information to criminally investigate or prosecute any alcohol or drug abuse patient.[facility] HospitalIn the event this information is protected by the Federal Confidentiality of Alcohol and Drug Abuse Patient Records regulations: The Federal rules restrict any use of the information to criminally investigate or prosecute any alcohol or drug abuse patient.[facility] HospitalIn the event this information is protected by the Federal Confidentiality of Alcohol and Drug Abuse Patient Records regulations: The Federal rules restrict any use of the information to criminally investigate or prosecute any alcohol or drug abuse patient.[facility] HospitalIn the event this information is protected by the Federal Confidentiality of Alcohol and Drug Abuse Patient Records regulations: The Federal rules restrict any use of the information to criminally investigate or prosecute any alcohol or drug abuse patient.[facility] HospitalIn the event this information is protected by the Federal Confidentiality of Alcohol and Drug Abuse Patient Records regulations: The Federal rules restrict any use of the information to criminally investigate or prosecute any alcohol or drug abuse patient.[facility] HospitalIn the event this information is protected by the Federal Confidentiality of Alcohol and Drug Abuse Patient Records regulations: The Federal rules restrict any use of the information to criminally investigate or prosecute any alcohol or drug abuse patient.[facility] HospitalIn the event this information is protected by the Federal Confidentiality of Alcohol and Drug Abuse Patient Records regulations: The Federal rules restrict any use of the information to criminally investigate or prosecute any alcohol or drug abuse patient.[facility] Goals (unrecognized section and content) Goals may be documented in a n alternate sectionGoals may be documented in an alternate sectionGoals may be documented in an alternate sectionGoals may be documented in an alternate sectionGoals may be documented in an alternate sectionGoals may be documented in an alternate sectionGoals may be documented in an alternate sectionGoals may be documented in an alternate sectionGoals may be documented in an alternate sectionGoals may be documented in an alternate sectionGoals may be documented in an alternate sectionGoals may be documented in an alternate sectionGoals may be documented in an alternate sectionGoals may be documented in an alternate sectionGoals may be documented in an alternate sectionGoals may be documented in an alternate sectionGoals may be documented in an alternate sectionGoals may be documented in an alternate sectionGoals may be documented in an alternate sectionGoals may be documented in an alternate sectionGoals may be documented in an alternate sectionGoals may be documented in an alternate section FOR RECORDS PERTAINING TO PATIENTS WHO ARE OR HAVE BEEN ENROLLED IN A CHEMICAL DEPENDENCY/SUBSTANCEABUSE PROGRAM, SOME INFORMATION MAY BE OMITTED. This clinical summary was aggregated from multiple sources. Caution should be exercised in using it in the provision of clinical care. This summary normalizes information from multiple sources, and as a consequence, information in this document may materially change the coding, format and clinical context of patient data. In addition, data may be omitted in some cases. CLINICAL DECISIONS SHOULD BE BASED ON THE PRIMARY CLINICAL RECORDS. [facility] [employer] [facility] provides no warranty or guarantee of the accuracy or completeness of information in this document.
== END | disposition home or self-care (01) ==
PROVIDERS: PCP Family Medicine; Referring Provider Internal Medicine Cardiovascular Disease; Visit Provider Internal Medicine Cardiovascular Disease
DX: I35.9 Nonrheumatic aortic valve disorder, unspecified (principal); Z86.73 Personal history of transient ischemic attack (TIA), and cerebral infarction without residual deficits
CPT/HCPCS: 93306

== ENCOUNTER 2025-05-12 15:19 | Emergency (ER) | payer MEDICARE, SELFPAY ==
[2025-05-12 15:22] VITALS: BP 159/59; PULSE 76; RESP 22; TEMP 36.6; O2SAT 93; BMI 23.6
--- NOTE | 2025-05-12 15:39 | CT_ITS ---
PROCEDURE: BRAIN/HEAD WITHOUT CONTRAST 05/12/2025 REASON FOR EXAM: HEAD TRAUMA, AMNESIA, HEADACHE, AND N/V TECHNIQUE: Procedure Code: CTBR Modality: CT Procedure: BRAIN/HEAD WITHOUT CONTRAST Coronal and Sagittal reconstruction series were provided. One or more dose reduction techniques were used (e.g., Automated exposure control, adjustment of the mA and/or kV according to patient size, use of iterative reconstruction technique. RADIATION DOSE SUMMARY: DLP: 598 mGycm COMPARISON: 01/30/25 FINDINGS: There is no acute infarct, intracranial hemorrhage, or mass effect. There is no hydrocephalus or significant midline shift. There is mild chronic microvascular ischemic changes and mild parenchymal volume loss. No acute, depressed calvarial fractures. The paranasal sinuses are clear. Bilateral lens surgery. Nasal bridge fracture. Question nasal septal fracture. Mild soft tissue edema about the nose and anterior frontal scalp. CT/Brain/Head without Contrast IMPRESSION: No acute intracranial process. Nasal bridge fracture. Question nasal septal fracture. Mild soft tissue edema about the nose and anterior frontal scalp. Reading Location: [facility]
--- NOTE | 2025-05-12 15:40 | EX.ED.GENINJ ---
HPI History of Present Illness Chief Complaint: Fall Detail of Chief Complaint: Mechanical fall, witnessed Informant: patient and EMS Onset/Context/Timing Onset: Today and Hours Mechanism/Context: Blunt Injury and Fall Location of pain/injuries: - (Forehead, nose, lips) Quality of Pain: Throbbing Location: Head Current Severity: Mild Maximum Severity: Moderate Worsened by: Nothing Relieved by: Nothing Associated Symptoms Associated Symptoms: Positive for Amnesia; Negative for Parasthesias, Weakness, Loss of function, Inability to ambulate or Loss of consciousness Narrative Narrative: Patient is an 79-year-old woman. She states she got out of her car. After taking 2 steps she fell. She does not recall what happened. Per witnesses she tripped and fell. She complains of headache with nausea vomiting. She has hives to tetanus vaccines. Therefore we will treat with metronidazole as she is allergic since she has multiple allergies to medication. Patient denies double vision, blurred vision or loss of vision. She denies her teeth not lining up. She denies jaw pain. She denies neck pain. She denies chest pain or shortness of breath. She denies low back pain. She denies pain in her upper or lower extremities. She states she has a leg drop on the right side and is in physical therapy. Patient is not on an anticoagulant. She is on a baby aspirin a day. Tetanus Immunization: Unknown Prior similar symptoms: No Recent Illness/Hospitalization: No [facility] Medical History Nocturia Urge incontinence Aortic stenosis Gait disturbance Fatigue Lung nodule, multiple Iron deficiency anemia due to chronic blood loss History of GI bleed Diarrhea C. difficile colitis Segmental colitis associated with diverticulosis Ischemic colitis Hypothyroidism GI bleed Non-smoker Atrial fibrillation Migraines Colitis HLD (hyperlipidemia) TIA (transient ischemic attack) Dysphagia Constipation Abdominal bloating Carotid stenosis, right Bilateral carotid artery stenosis Essential hypertension Presence of stent in coronary artery (~04/19/21) Atherosclerotic heart disease of [place] coronary artery without angina pectoris Vision problem Thyroid dysfunction Osteoarthritis Hearing problem Chronic headache GI problem Cataracts, bilateral Seasonal allergies 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 Ventricular hypertrophy Diastolic dysfunction Aortic insufficiency Family history of premature coronary heart disease Aortic valve disease Nonspecific abnormal serum enzyme levels Peptic ulcer disease Carotid artery bruit Palpitations Angina pectoris Chest pain Insomnia GERD (gastroesophageal reflux disease) Home Medications ?Medication ?Instructions ?Recorded ?Last Taken ?Type aspirin 81 mg tablet,delayed 81 mg PO DAILY 11/29/23 01/04/24 History release (Adult Low Dose Aspirin) Lactobacil.acidophilus-Bifido.animalis 1 cap PO DAILY digestion 03/15/24 Unknown History 5 billion cell sprinkle capsule (Probiotic) glucosamine-chondroitin 250 mg-200 2 tab PO QPC 03/15/24 Unknown History mg tablet (Osteo Bi-Flex) multivitamin with minerals-ferrous 1 tab PO DAILY 03/15/24 Unknown History sulfate 4.5 mg iron tablet (One Daily Multivitamins with Minerals) atorvastatin 40 mg tablet 40 mg PO QHS cholesterol #90 tabs 09/02/24 Unknown Rx amlodipine 5 mg tablet 5 mg PO QDAY #90 tabs 11/12/24 Unknown Rx cholecalciferol (vitamin D3) 25 2,000 unit PO QDAY 03/11/25 Unknown History mcg (1,000 unit) capsule donepezil 5 mg tablet 10 mg PO DAILY memory 03/11/25 Unknown History levothyroxine 100 mcg tablet 100 mcg PO DAILY thyroid 03/11/25 Unknown History lisinopril 20 mg tablet 20 mg PO QDAY blood pressure 03/11/25 Unknown History trazodone 50 mg tablet 150 mg PO QHS 03/11/25 Unknown History carvedilol 6.25 mg tablet (Coreg) 6.25 mg PO BID blood pressure #180 03/24/25 Unknown Rx tabs solifenacin 5 mg tablet 5 mg PO QDAY #90 tabs 04/18/25 Unknown Rx glucosamine-chondroitin 250 mg-200 2 tab PO DAILY 05/12/25 Unknown History mg tablet metronidazole 500 mg tablet 500 mg PO Q8H #15 tabs 05/12/25 Unknown Rx Allergy/AdvReac Type Severity Reaction Status Date / Time albuterol Allergy Intermediate GI upset Verified 03/11/25 15:12 cyclobenzaprine (From Allergy Intermediate mental Verified 03/11/25 15:12 Flexeril) status change hydrocodone (From Vicodin) Allergy Intermediate muscle Verified 03/11/25 15:12 twitching oxycodone Allergy Intermediate Vomiting Verified 03/11/25 15:12 amoxicillin Allergy Mild Swelling Verified 03/11/25 15:12 clindamycin Allergy Mild Swelling Verified 03/11/25 15:12 diatrizoate meglumine Allergy Mild Itching Verified 03/11/25 15:12 Tetanus Vaccines and Toxoid Allergy Mild Hives Verified 03/11/25 15:12 codeine AdvReac Intermediate Nausea & Verified 03/11/25 15:12 Vomiting benzonatate (From Tessalon AdvReac Mild Vomiting Verified 03/11/25 15:12 Perles) hydrochlorothiazide (From AdvReac Mild intolerance Verified 03/11/25 15:12 Dyazide) tizanidine AdvReac Mild Other Verified 04/29/25 15:09 triamterene (From Dyazide) AdvReac Mild intolerance Verified 03/11/25 15:12 erythromycin base AdvReac Nausea Verified 03/11/25 15:12 Family History Mother , Age 76 heart attack Myocardial infarction Heart disease Cardiomyopathy Hypertension Osteoporosis Father , Heart Disease Age 86 Heart disease Parkinson disease CVA (cerebral vascular accident) Hypertension Unknown Thyroid disorder Stomach ulcer Surgical History History of appendectomy History of coronary artery stent placement History of colonoscopy (~08/2020) History of esophagogastroduodenoscopy (EGD) (~08/2020) History of hysterectomy History of thyroidectomy Presence of coronary angioplasty implant and graft (~09/01/15) Social History household members: spouse Smoking Status: Never smoker alcohol intake: current alcohol intake frequency: holidays/special occasions only Alcohol type: wine substance use type: does not use diet: other caffeine: Yes Type: coffee Number of servings: 3 what type of physical activity do you participate in: walking frequency: 3-4 times per week seatbelt use: always do you feel safe at home: Yes ROS ROS ED Constitutional Constitutional ED: Denies chills or fever(s) Eyes Eyes: Denies blurry vision or change in vision ENT ENT ED: Denies ear pain, rhinorrhea or sore throat Cardiovascular Cardiovascular: Denies chest pain or palpitations Respiratory/Chest Respiratory/Chest: Denies cough, dyspnea or dyspnea on exertion Gastrointestinal Gastrointestinal: Reports nausea and vomiting; Denies abdominal pain or diarrhea Genitourinary Genitourinary ED: Denies dysuria, hematuria or urinary frequency Musculoskeletal Musculoskeletal: Denies arthralgias or myalgias Integumentary Reports other Details: Laceration involving the forehead on the right through the brow. Ecchymosis upper and lower left and periorbital ecchymosis right side. Neurologic Neurologic: Reports headache(s); Denies paresthesias Psychiatric Psychiatric: Denies anxiety or depression Hematologic/Lymphatic Hematologic/Lymphatic: Denies easy bleeding or easy bruising EXAM Physical Exam Const Vital Signs: 05/12/25 15:22 05/12/25 15:28 Temperature 97.9 F Temperature Source Oral Pulse Rate 76 Respiratory Rate 22 H Respiratory Effort Normal Respiratory Depth Normal Respiratory Pattern Normal Blood Pressure 159/59 H Blood Pressure Mean 92 Pulse Ox 93 Oxygen Delivery Method Room Air Room Air Positive well nourished and well developed General Appearance ED: well developed and NAD HEENT HEENT Narrative: Laceration right forehead involving the eyebrow. There is no palpable depression. There is no clinical signs of basilar skull fracture. There is ecchymosis involving the upper and lower lip. There is no obvious dental trauma. There is no tenderness over the right or left TMJ joint with patient opening closing her mouth. There is no trauma to her ears. There is no epistaxis. There is no septal deviation or hematoma noted. Eyes PERRL and EOMs intact bilaterally General Eye ED: Yes other Other Details: Mild infraorbital ecchymosis on the right. There is no step-off with palpation infraorbital rim. There is no hyperesthesia of the infraorbital nerve. She has no diplopia with central gaze or upward gaze and there is no evidence of entrapment. Neck full ROM Neck Narrative: There is no central midline neck tenderness. Chest Wall inspection of chest normal and palpation of chest normal Resp normal respiratory effort and clear to auscultation bilaterally Cardio regular rhythm, S1 normal heart sound and S2 normal heart sound; Negative for no murmurs Rate: regular rate GI normal to inspection, nondistended, normoactive bowel sounds, non-tender, non-distended and no masses Back/Spine normal to inspection and no thoracic nor lumbar tenderness Back/Spine Narrative: There is no midline thoracic or lumbar tenderness to palpation. There is no pain palpation of the right or left ilium, pubic symphysis or the right or left ischial tuberosity. Extremity normal to inspection and full ROM Extremity Narrative: Patient does have weakness with elevation of her right leg. This is chronic. She is in physical therapy for a leg drop . She has no pain ovation over the right or left greater trochanteric region. There is no discomfort with logrolling of the right or left leg. There is no pain ovation over the right or left knee, ankle or feet. Neuro oriented x3, CN's II-XII intact bilaterally, moves all extremities, no focal motor deficits and no sensory deficits noted Shelley Coma Scale: document GCS findings Spontaneous Obeys Commands Oriented 15 Sensorium / Orientation: alert Psych mental status grossly normal and thought process normal Skin No no wounds Skin Narrative: Laceration forehead as previously noted. This is 2.3 cm in length. MDM MDM MDM Narrative Medical decision making narrative: With patient complaining of significant headache, nausea vomiting and is amnestic will obtain CT of the head per the [place] CT head rules rule out intracranial bleed i.e. subdural hematoma, epidural hematoma, traumatic subarachnoid hemorrhage or intraparenchymal contusion. Since patient is alert and oriented x 3 and has no midline neck tenderness and full active range of motion without pain imaging was not obtained. Patient's laceration will require repair. Will be a separate procedure note. Patient wound was prepped draped sterile manner. Anesthetized by supraorbital and supratrochlear nerve block on the right. Total of 1.5 cc infiltrated. Wound was irrigated with 100 cc of normal saline. Simple interrupted sutures placed using 6-0 Ethilon. A total of 8 stitches needed. Patient tolerated procedure. History & Record Review Additional record(s) reviewed:: Prior outpatient record (Outpatient orthopedic note authored by a Milagros Davalos physician library assistant on February 18, 2025. Assessment was degenerative disc disease of lumbar region with discogenic back pain and leg pain. Also degenerative scoliosis that is acute. Patient does have low bone density.), Prior ED visit (ER visit for fall January 30, 2025. Note was authored by Dr. Harris Clemons. Final impression was abrasion, contusion of left forearm, facial contusion, chest wall contusion and concussion.) and Prior labs Radiography Diagnostic Testing: Clinical Impression(s) from Imaging Studies Brain CT 05/12/25 15:39 IMPRESSION: No acute intracranial process. Nasal bridge fracture. Question nasal septal fracture. Mild soft tissue edema about the nose and anterior frontal scalp. Reading Location: [facility] C-minus of the head reveals no intracranial bleed. There is no evidence of skull fracture. There is skin defect noted right forehead. This was reviewed by me at 1629. Discharge Plan Triage Chief Complaint: Fall ED Provider: Keo Zarate Dx/Rx/DC Orders Clinical Impression: Concussion without loss of consciousness, initial encounter, Forehead laceration, Closed fracture nose, Contusion of face, Injury due to fall, Antiplatelet or antithrombotic long-term use, Acute post-traumatic headache Instructions: ED Concussion, ED Nose Fracture, with X-Ray, ED Laceration, All Closures, ED Laceration Minimize Scars Prescriptions: New metronidazole 500 mg tablet 500 mg PO Q8H Qty: 15 0RF No Action donepezil 5 mg tablet 10 mg PO DAILY aspirin [Adult Low Dose Aspirin] 81 mg tablet,delayed release (DR/EC) 81 mg PO DAILY glucosamine-chondroitin [Osteo Bi-Flex] 250-200 mg tablet 2 tab PO QPC Probiotic 5 billion cell capsule, sprinkle 1 cap PO DAILY One Daily Multi-Vit w-Mineral 4.5 mg iron tablet 1 tab PO DAILY cholecalciferol (vitamin D3) 25 mcg (1,000 unit) capsule 2,000 unit PO QDAY trazodone 50 mg tablet 150 mg PO QHS lisinopril 20 mg tablet 20 mg PO QDAY glucosamine-chondroitin 250-200 mg tablet 2 tab PO DAILY Rx Instructions: give after food/meal atorvastatin 40 mg tablet 40 mg PO QHS Qty: 90 3RF amlodipine 5 mg tablet 5 mg PO QDAY Qty: 90 3RF levothyroxine 100 mcg tablet 100 mcg PO DAILY Patient Comments: Pt unaware of dosage carvedilol [Coreg] 6.25 mg tablet 6.25 mg PO BID Qty: 180 3RF Rx Instructions: must administer with a meal/food solifenacin 5 mg tablet 5 mg PO QDAY Qty: 90 3RF Primary Care Provider: Smith Orozco Referrals: Smith Orozco MD [Primary Care Provider] - 5 Days for suture removal Activity Restrictions/Additional Instructions: 1. Ice to areas of discomfort for 20 to 30 minutes per application 8-10 times a day. 2. You may feel worse than you presently do. 3. You may hurt in more places and you presently do. You may hurt for 3 to 7 days if not longer. 4. Apply bacitracin ointment 3 times a day to your forehead laceration Print Language: Armenian
--- OUTSIDE RECORDS SUMMARY | 2025-05-12 15:47 | XMS RPT_ITS | CCD ---
Author Organization [facility] Care Team Providers Care Personal Care Assistant Name Role Phone Armando Orozco Unavailable Unavailable Armando Orozco Unavailable Andrea Solorio Unavailable Unavailable No, Physician Primary Care Provider UnavailArmando Monte MD Primary Care Provider MOO ZUNIGA Admitting Unavailable RAJEEV REESE Referring Unavailab le NO, PHYSICIAN Primary Care Unavailable ALIVIA CASTELLANOS Attending Unavailab OG Cruz Consulting Unavailable JOSELYN URBINA Consulting Unavailable IZABELLA SHARMA Consulting UnavailTRIXIE Alford Attending RAJEEV Capone Referring Unavailab ARMANDO Godinez Primary Care Unavailable LAURI MARKS Admitting Unavailab JOSELYN Trent Consulting Unavailable Armando Orozco MD Primary Care Provider Dr. Armando Orozco Primary Care Provider [phone] Dr. Armando Orozco Referring Provider [phone] Dr. Ron Lewis Attending Provider [phone], FISH NET STRINGER-C Nohelia Attending Provider [address], FISH NET STRINGER-C Nohelia Referring Provider [address], AAYLA-C Nohelia Other Provider [phone] Dr. Nicholas Max Attending Provider [phone] Dr. Armando Orozco Primary Care Provider [phone] Dr. Armando Orozco Referring Provider Dr. Ron Lewis Attending Provider [phone] JEREMIAH Angel NPC Nohelia Attending Provider Pradeep STRE[address], FISH NET STRINGER-C Bev Fernández Attending Provider [phone] Dr. Enrique Wayne Attending Provider Friend, Dr. Velasquez Referring Provider [phone] Dr. Armando Orozco Primary Care Provider ONEAL ROMERO Attending Unavailable ONEAL ROMERO Admitting Unavailable ARMANDO OROZCO Primary Care Unavailable STAN CARPIO Referring Unavailable CONSULT, GASTROENTEROLOGY Consulting ARMANDO Fuller Primary Care Unavailable MITA BOYLE Admitting Unavailable STAN CARPIO Referring Unavailable TATE JISHU K Attending Unavailable ESTELLA SMITH Referring Unavailable CONSULT, GASTROENTEROLOGY Consulting FabiennemsJEREMY Monroy Admitting Unavailable TAYE VELASQUEZ Attending Unavailable Dr. Armando Orozco Primary Care Provider Dr. Armando Orozco Referring Provider Armando Orozco MD Primary Care Provider Dr. Armando Orozco Primary Care Provider Dr. Armando Orozco Referring Provider [address], FISH NET STRINGER-C Bev Fernández Attending Provider [phone] [address], FISH NET STRINGER-Chaparrita Pozo Attending Provider Armando Orozco Unavailable Unavailable Unavailable Armando Orozco MD Primary Care Provider Armando Orozco MD Primary Care Provider Dr. Armando Orozco Primary Care Provider Dr. Armando Orozco Referring Provider JEREMIAH Angel NPC Nohelia Attending Provider Pradeep FISH NET STRINGER, FISH NET STRINGER-C Bev Fernández Attending Provider [phone] Dr. Nicholas Max Attending Provider [phone] Dr. Nicholas Max Referring Provider [phone] Dr. Nicholas Max Other Provider Dr. Gregory Benjamin Attending Provider [phone] Ernesto, Dr. Mtz Primary Care Provider [phone] Ernesto, Dr. Mtz Referring Provider Mansoor, Dr. Peterson Attending Provider [phone] Mansoor, Dr. Peterson Referring Provider [phone] Mansoor, Dr. Peterson Other Provider [phone] Gregory Benjamin Attending Provider [phone] [address] FISH NET STRINGER, FISH NET STRINGERGalinaC Nohelia Attending Provider Ernesto, Dr. Armando Iglesias Primary Care Unav ailable Janas, MrElda Marie Attending Unavailable Janas, MrElda Marie Attending Unavailable [place], Dr. Armando Iglesias Primary Care Unav ailable Janas, Elda Marie Attending [facility]available [facility] Armando Iglesias Primary Care Unav ailable Janas, MrElda Marie Attending Unavailable [place], Dr. Armando Iglesias Primary Care Unav ailable [facility] Primary Care Unav ailable Janas, MrElda Marie Attending Unavailable [facility]. Armando Iglesias Primary Care Unav ailable Janas, MrElda Marie Attending Unavailable [place], Dr. Armando Iglesias Primary Care Unav ailable Janas, MrElda Marie Attending Unavailable Eshenaur, Elda NinoCristian Yohannes Attending Fabienne vailable [facility] Dr. Armando Iglesias Primary Care Unav ailable Ernesto, Dr. Armando Iglesias Primary Care Unav ailable Janas, MrElda Marie Attending Unavailable [place], Dr. Armando Iglesias Primary Care Unav ailable Janas, MrElda Marie Attending Unavailable [facility]. Armando Iglesias Primary Care Unav ailable Maronian, Dr. Ludmila Feliz Attending U navailable Ernesto, Dr. Armando Iglesias Referring Unav ailable Maroniamarilia, Dr. Ludmila Feliz Attending U navailable Jaylan, Dr. Parviz Cabello Referring Unavailab le Ernesto, Dr. Armando Iglesias Primary Care Unav ailable Kelvin, Dr. Ludmila Feliz Attending U navailable Ernesto, Dr. Armando Iglesias Primary Care Unav ailable Maronian, Dr. Ludmila Feliz Attending U navDr. Armando Farfan Primary Care Unav ailable VINODF, EMELIA Referring Unavailable ERNESTO, ARMANDO Salazar Primary Care Unavailable TANNHOF, EMELIA Referring Unavailable ELDERCARINE, ARMANDO Salazar Primary Care Unavailable ERNESTO, ARMANDO Salazar Primary Care Unavailable EMELIA LYNN Referring Unavailable Dr. Armando Orozco Primary Care Provider Dr. Armando Orozco Referring Provider [phone] Dr. Yumiko Lizama Attending Provider SARAH Stout Attending Provider Armando Orozco MD Primary Care Provider ARMANDO OROZCO Primary Care Unavailable VALENCIA JR., MACIEJ Admitting Unavailable VALENCIA JR., MACIEJ Referring Unavailable KILPATRICKJUAN ABRAMSE Admitting Unavailable KILPATRICK, JUAN MADRIDE Referring Unavailable ARMANDO OROZCO Primary Care Unavailable ARMANDO OROZCO Primary Care Unavailable VALENCIA JR., MACIEJ Admitting Unavailable VALENCIA JR., MACIEJ Referring Unavailable JUAN KILPATRICK Attending Unavailable ARMANDO OROZCO Primary Care Unavailable VALENCIA JR., MACIEJ Attending Unavailable Dr. Armando Orozco Primary Care Provider Dr. Armando Orozco Referring Provider [phone] SARAH Morillo Attending Provider [phone] Gregory Benjamin Attending Provider [phone] RAJEEV REESE Attending Unavailab le ARMANDO OROZCO Primary Care Unavailable VEGA GRANGER JR Referring Unavailable ARMANDO OROZCO Primary Care Unavailable Dr. Armando Orozco Primary Care Provider SARAH Morillo Referring Provider [phone] Armando Orozco Referring Provider [phone] Arvin SMITH, PA Qing Fernández Attending Provider Dr. Matthieu Gomez Emergency Provider [phone] Dr. Tahira Meadows Attending Provider Dr. Tahira Meadows Admit Provider Dr. Tahira Meadows Referring Provider Dr. Tahira Meadows Other Provider MD Jonny Young Other Provider Unavailable Dr. Vanessa Waldron Other Provider MD Jennifer Gonzalez Other Provider Unavailable Dr. Minoo Silver Other Provider Dr. Anabell Bang Other Provider Dr. Freddy Buchanan Other Provider [phone] Dr. Hannah Cobos Other Provider Dr. [...] Care Provider Dr. Armando Orozco Referring Provider [phone] Arvin SMITH, PA Qing Fernández Attending Provider Dr. Matthieu Gomez Emergency Provider Dr. Tahira Meadows Attending Provider Dr. Tahira Meadows Admit Provider Dr. Tahira Meadows Other Provider MD Jonny Young Other Provider Unavailable Dr. Vanessa Waldron Other Provider MD Jennifer Gonzalez Other Provider Unavailable Dr. Minoo Silver Other Provider Dr. Anabell Bang Other Provider Dr. Freddy Buchanan Other Provider [phone] Dr. Hannah Cobos Other Provider Dr. Donald Ward Other Provider Dr. Joselyn Meadows Other Provider MD Angie Cook Other Provider Dr. Federico Jones Other Provider [phone] Dr. Katarzyna Brock Other Provider Dr. Raysa Hutton Other Provider [phone] Dr. Little Aden Other Provider Dr. [...] Orozco Referring Provider Arvin SMITH, PA Qing Fernández Attending Provider Dr. Matthieu Gomez Emergency Provider [phone] Dr. Tahira Meadows Attending Provider Dr. Tahira [...] Other Provider Dr. Raysa Hutton Other Provider [phone] Dr. Little Aden Other Provider Dr. Stan Gar Other Provider Dr. Sabi Stout Other Provider Dr. Fareed Wagoner Other Provider [phone] Dr. Letha Meadows Other Provider Unavailable MD Kelby Cordoba Other Provider Unavailable Dr. Jose Ortega Attending Provider Dr. Jose Ortega Other Provider Dr. Yumiko Lizama Attending Provider Dr. Izabella Mendoza Emergency Provider Dr. Gentry Thomson Admit Provider [phone] Dr. Gentry Thomson Other Provider Armando Orozco MD Primary Care Provider Armando Orozco MD Primary Care Provider Tannhof PIT CLERK.STEAM PRESSER, Emelia Unavailable Fatemeh PIT CLERK.STEAM PRESSER, Kushal Unavailable Dr. Armando Orozco MD Primary Care Provider Dr. Armando Orozco MD Referring Provider Minoo Porter Attending Provider Qing Guzman Attending Provider Davis DPM, Dr. Jason Attending Provider Davis DPM, Dr. Jason Referring Provider [place] PIT CLERK.STEAM PRESSER, Emelia Unavailable Unavail able [place] PIT CLERK.STEAM PRESSER, Emelia Unavailable ELDERBROCK, ARMANDO D Primary Care [...] TORRES, Dr. Romie Smith Attending Provider Dr. Harris James DO Attending Provider Dr. Harris James DO Referring Provider Dr. Harris James DO Emergency Provider Minoo Porter Attending Provider Ernesto TORRES, Dr. Mtz Referring Provider Aure Aiken Attending Provider Jose Enrique TORRES, Dr. David Attending Provider Kar TORRES, Dr. Marquez Attending Provider Ernesto TORRES, Dr. Mtz Primary Care Provider Davis JORDAN, Dr. Jason Referring Provider aKr TORRES, Dr. Marquez Attending Provider Jose Enrique TORRES, Dr. David Referring Provider Stanley FISH NET STRINGER-C, Nohelia Attending Provider AURE GONZALES Referring Unavailable ELDERBROCKARMANDO Primary Care Unavaila AURE Keenan Referring Unavailable ELDERBROCKARMANDO Primary Care Unavaila ble SHAIKH AASEF G Attending Unavailable WALLACE, AASEF G Referring Unavailable ELDERBROCKARMANDO Primary Care Unavaila AURE Keenan G Referring Unavailable ELDERBROCKARMANDO Primary Care UnavailMinoo Lara Referring Unavailable Gregory Benjamin Attending Unavailable [place], Armando Primary Care Unavailable Harris James Referring Unavailable Harris James Attending Unavailable [place], Armando Primary Care Unavailable Qing Guzman Attending Unavail able [place], Armando Primary Care Unavailable [place], Armando Referring Unavailable Jose Enrique, Frankie Attending Unavailable [place], Armando Primary Care Unavailable Jose Enrique, [place] Attending Unavailable [place], Armando Primary Care Unavailable [place], Armando Referring Unavailable [place], Armando Referring Unavailable WynesAlma jones Attending Unavailable [place], Armando Primary Care Unavailable [place], Armando Referring Unavailable WynesAlma jones Attending Unavailable [place], Armando Primary Care Unavailable [place], Armando Referring Unavailable WynesAlma jones Attending Unavailable [place], Armando Primary Care Unavailable WyneskiAlma Attending Unavailable [place], Armando Primary Care Unavailable [place], Armando Referring Unavailable WynesAlma jones Attending Unavailable [place], Armando Primary Care Unavailable [place], Armando Referring Unavailable Morillo, Minoo Attending Unavailable Cannon, Jaguar Referring Unavailable [facility], Armando Primary Care Unavailable Aure Gonzales Attending Unavailable [facility], Armando Primary Care Unavailable [place], Armando Referring Unavailable Jose Enrique, Frankie Attending Unavailable [facility], Ramando Primary Care Unavailable Nohelia Angel NP Attending Unavailable [facility], Armando Primary Care Unavailable Morillo, Minoo Attending Unavailable [facility], Armando Primary Care Unavailable [place], Armando Referring Unavailable Morillo, Minoo Referring Unavailable Morillo, Minoo Attending Unavailable [facility], Armando Primary Care Unavailable Cannon, Jaguar Referring Unavailable Cannon, Jaguar Attending Unavailable [facility], Armando Primary Care Unavailable Jose Enrique, Frankie Referring Unavailable Jose Enrique, Frankie Attending Unavailable [facility], Armando Primary Care Unavailable Allergies Allergy Classification Reported Allergen(s) Allergy Type Date of Onset Reaction(s) Facility Acetaminophen (4 sources) Acetaminophen Drug Allergy 021 [facility] Acetaminophen / HYDROcodone (1 source) Acetaminophen / HYDROcodone Drug Allergy 011 Intolerance [facility] Work Phone: Albuterol (1 source) Albuterol Drug Allergy 019 Intolerance [facility] Work Phone: benzonatate (1 source) benzonatate Drug Allergy 005 GI Upset [facility] Work Phone: cyclobenzaprine (1 source) cyclobenzaprine Drug Allergy 005 Mental Status Change [facility] Diatrizoate (1 source) Diatrizoate Drug Allergy 021 Itching [facility] hydroCHLOROthiazide / Triamterene (1 source) hydroCHLOROthiazide / Triamterene Drug Allergy 013 Intolerance [facility] Iodine (and Iodine containting drugs) (1 source) Iodine Drug Allergy 021 Itching [facility] Lincosamides (antibiotic) (1 source) Clindamycin Drug Allergy 023 Swelling [facility] Macrolides (antibiotic) (1 source) Erythromycin Drug Allergy 005 GI Upset [facility] Opioid Agonists (7 sources) Codeine Drug Allergy 005 Vomiting, GI Upset [facility] Penicillins (antibiotic) (1 source) Amoxicillin Drug Allergy 013 Other: See Comments [facility] Work Phone: (20 sources) codeine; Translations: [codeine] Drug Allergy 005 Vomiting, Unknown [facility] Repository (20 sources) erythromycin; Translations: [erythromycin] Drug Allergy [address] [facility] Repository (20 sources) Acetaminophen; Translations: [ACETAMINOPHEN] Drug Allergy 011 Other: See Comments [facility] (20 sources) Acetaminophen / HYDROcodone; Translations: [HYDROCODONE-ACETAMIN OPHEN] Drug Allergy 011 Intolerance [facility] Work Phone: [phone] (20 sources) Albuterol; Translations: [ALBUTEROL] Drug Allergy 019 Intolerance [facility] Work Phone: (20 sources) Amoxicillin; Translations: [AMOXICILLIN] Drug Allergy 013 Other: See Comments [facility] Work Phone: (20 sources) benzonatate; Translations: [BENZONATATE] Drug Allergy 005 GI Upset, Other [facility] Work Phone: (20 sources) cyclobenzaprine; Translations: [CYCLOBENZAPRINE] Drug Allergy 005 Mental Status Change [facility] Work Phone: (20 sources) Diatrizoate; Translations: [DIATRIZOATE MEGLUMINE] Drug Allergy 021 Itching [facility] (20 sources) hydroCHLOROthiazide / Triamterene; Translations: [TRIAMTERENE-HYDROCHL OROTHIAZID] Drug Allergy 013 Intolerance [facility] (20 sources) Iodine; Translations: [IODINE] Drug Allergy 021 Itching [facility] (20 sources) oxyCODONE; Translations: [OXYCODONE] Drug Allergy 017 Vomiting [facility] Work Phone: (20 sources) oxyCODONE; Translations: [OXYCODONE HCL] Drug Allergy 012 GI Upset, Vomiting [facility] (6 sources) Tetanus Vaccines And Toxoid; Translations: [TETANUS VACCINES AND TOXOID] Propensity to adverse reactions [facility] Work Phone: (20 sources) Erythromycin Drug Allergy 022 Nausea [facility] (20 sources) hydroCHLOROthiazide Drug Allergy intolerance [facility] (20 sources) HYDROcodone; Translations: [HYDROCODONE] Drug Allergy 021 GI Upset [facility] (10 sources) Isosorbide Drug Allergy 022 Headaches [facility] (20 sources) Triamterene Drug Allergy intolerance [facility] (20 sources) Tetanus Vaccines And Toxoid Propensity to adverse reactions [facility] Work Phone: (20 sources) Clindamycin; Translations: [CLINDAMYCIN] Drug Allergy 023 Swelling [facility] (16 sources) Tetanus Vaccines and Toxoid Allergy to substance 024 Hives [facility] (2 sources) tiZANidine Drug Allergy Other [facility] Comment on above: INCONTINENCE/NIGHTMA RES (1 source) Albuterol Drug Allergy [facility] Repository (1 source) Amoxicillin Drug Allergy [facility] Repository (1 source) benzonatate Drug Allergy [facility] Repository (1 source) Clindamycin Drug Allergy [facility] Repository (1 source) cyclobenzaprine Drug Allergy [facility] Repository (1 source) Diatrizoate Drug Allergy [facility] Repository (1 source) Erythromycin Drug Allergy [facility] Repository (1 source) hydroCHLOROthiazide Drug Allergy [facility] Repository (1 source) HYDROcodone Drug Allergy [facility] Repository (1 source) oxyCODONE Drug Allergy [facility] Repository (1 source) tiZANidine Drug Allergy 025 [facility] Repository (1 source) Triamterene Drug Allergy 025 [facility] Repository (1 source) Tetanus Vaccines and Toxoid Drug allergy (disorder) 025 [facility] Repository Medications Current Medications Medication Drug Class(es) [...] SILVER ORAL TAB (20 sources) Start: 05-10-20 05 take 1 tablet by mouth once daily CENTRUM SILVER ORAL TAB Take one(1) tablet daily. 30 0 05/10/2005 Active Comment on above: Take one(1) tablet d aily. cholecalciferol 0.025 mg oral capsule (20 sources) Vitamin D Start: 03-11-20 take 1 capsule by mouth once daily [...] Animalis (Probiotic) 5 billion cell capsule, sprinkle (11 sources) Start: 03-15-2024 take 5 capsules by mouth once daily L. Acidophilus/Bifid. Animalis (Probiotic) 5 billion cell capsule, sprinkle Active 1 NMA PO DAILY March 15, 2024 12:00am digestion Start: 03-15-2024 take 5 capsules by m outh once daily L. Acidophilus/Bifid. Animalis (Probiotic) 5 [...] tablet Discontinued 5 mg PO DAILY 90 3 July 24, 2018 1:00am January 30, 2019 8:57am Start: 07-24-2018 End: 07-09-2024 take 1 tablet by mouth once daily Lisinopril 20 mg tablet Discontinued 20 mg PO DAILY 90 3 May 26, 2022 9:54am September 08, 2022 12:45pm blood pressure Start: 07-24-2018 End: 07-24-2018 take 10 mg by mouth twice daily Lisinopril 20 mg table t Discontinued 10 mg PO TWICE A DAY 90 3 July 24, 2018 9:39am July 24, 2018 [...] 10 mg PO TWICE A DAY 180 4 February 06, 2018 1:41pm July 24, 2018 [...] mg by mouth once daily. 20 mg. Gxvypvqd-Hxg-Lyfqexc Sulfate (One Daily Multi-Vit W-Mineral) 4.5 mg iron tablet (11 sources) Start: 03-15-2024 take 1 tablet by mouth once daily Lwtkscmd-Gbg-Listnim Sulfate (One Daily Multi-Vit W-Mineral) 4.5 mg [...] on above: Take 1 capsule by mo [facility] two times a day with meals for [...] Discharge) solifenacin succinate 5 mg oral tablet (4 sources) Cholinergic Muscarinic Antagonist Start: 04-18-2025 take 1 [...] Discontinued 20 mg PO AT BEDTIME 90 3 July 07, 2020 5:34pm April 28, 2021 [...] 27-Jul-2021 Active Start: 07-27-2021 End: 07-30-2021 take [id number] tablet by mouth once Bisacodyl 5 mg [...] above: Take 1 capsule by mo ut four times daily. clopidogrel 75 mg oral [...] tablet (20 sources) Histamine-2 Receptor Antagonist Start: 024 End: 025 take 1 tablet by mouth once daily Famotidine 20 mg tablet Discontinued 20 mg PO DAILY 90 3 September 09, 2024 9:58am March 11, 2025 [...] on above: Take 1 capsule by mo [facility] twice daily. Take 1 capsule by mo [facility] two times a day. Mesalamine 400 mg capsule,delayed release(DR/EC) (11 sources) Start: 10-16-2023 End: 11-13-2023 take 1 [...] Discontinued 25 mg PO TWICE A DAY August 01, 2023 2:21pm October 16, 2023 [...] hr Discontinued 50 mg PO DAILY 90 3 March 01, 2021 10:14am April 28, 2021 9:49am Start: 02-26-2020 End: 04-28-2021 Start: 01-17-2019 End: 02-05-2020 take 1 tablet by mouth once daily Metoprolol Succinate 50 mg tablet extended release 24 hr Discontinued 50 mg PO DAILY 90 3 January 30, 2019 9:02am February 05, 2020 [...] mouth once daily. Multivitamin 1 EACH tablet (11 sources) Start: 08-19-2015 End: 02-22-2023 Multivitamin 1 [...] DAILY August 19, 2015 1:00am Multivitamin tablet (11 sources) Start: 02-22-2023 End: 10-16-2023 Multivitamin tablet [...] 15 minutes as needed for chest pain May 26, 2021 12:00am October 16, 2023 [...] mg capsule,delayed release(DR/EC) Discontinued PO 180 90 April 03, 2018 12:00am May 16, 2018 2:33pm Start: 04-03-2018 End: 05-16-2018 Start: 08-19-2015 End: 04-03-2018 take 1 capsule by mouth once daily Omeprazole 40 MG capsule Discontinued 40 mg PO DAILY August 19, 2015 1:00am April 03, 2018 2:56pm ondansetron 4 mg disintegrating oral tablet (13 sources) Serotonin-3 Receptor Antagonist Start: 01-06-2024 End: 01-31-2024 take 1 tablet by mouth every eight hours as needed for nausea and vomiting Ondansetron 4 mg tablet,disintegrating Discontinued 4 mg PO Q8H as needed for nausea and vomiting 10 January 06, 2024 12:00am January 31, 2024 [...] 1 tablet by shira th once daily. pantoprazole 40 mg delayed release [...] Take 1 tablet by shira once daily. perflutren lipid microspheres (DEFINAppetise) 0.143 mg/mL solution 0-10 mL of mixture (1 source) Start: 04-20-2021 End: 04-21-2021 perflutren lipid microspheres (DEFINITY) 0.143 mg/mL solution 0-10 mL of mixture polyethylene glycol [id number] [id number] mg powder for oral solution (20 sources) [...] total) by mouth daily . 30 tablet 11 04/28/2021 07/26/2023 Discontinued (Patient's Request) Start: 04-20-2021 [...] 500 mg PO TWICE A DAY 60 6 May 04, 2022 12:00am June 22, 2022 [...] Comment on above: Take 1 capsule by [facility] daily at bedtime. ticagrelor 90 mg oral [...] Comment on above: Take 1 tablet by [facility] once daily. traMADol hydrochloride 50 mg [...] 1:01am Start: 08-17-2021 take 1 capsule by [facility] four times daily Vancomycin HCl - 125 MG Oral Capsule TAKE 1 CAPSULE BY MOUTH 4 TIMES DAILY FOR 11 DAYS Quantity: 44 Refills: 0 Ordered: 17-Aug-2021 DO Start : 17-Aug-2021 Active Comment on above: Take 1 capsule by [facility] every 6 hours. 24 hr venlafaxine 37.5 [...] on above: Take 1 capsule by mo [facility] once daily. vitamin e 180 mg oral capsule (11 sources) Start: 08-30-2024 End: 09-25-2024 take 1 [...] Documented Da te Episodic/Chronic Acute cerebrovascular disease (12 sources) Cerebrovascular accident; Translations: [Cerebral infarction, unspecified] [...] disease (20 sources) Atherosclerotic heart disease of [place] coronary artery without angina pectoris; Translations: [Coronary atherosclerosis of unspecified type of vessel, [place] or graft] Onset: 7 Resolved: 4 Chronic [...] Gastrointestinal hemorrhage; Translations: [Gastrointestinal hemorrhage, unspecified] Onset: Episodic Genitourinary symptoms and ill-defined conditions (20 sources) Urinary incontinence; Translations: [Unspecified urinary incontinence] Onset: 5 02-14-2024 Chronic Genitourinary symptoms and ill-defined conditions (20 sources) Urine looks dark; Translations: [Other abnormal findings in urine] Onset: 5 03-29-2023 Episodic Gout and other crystal arthropathies [...] valve regurgitation; Translations: [Nonrheumatic aortic (valve) insufficiency] Onset: 5 Chronic Comment on above: mild Heart valve disorders (20 sources) Systolic murmur; Translations: [Cardiac murmur, unspecified] 11-13-2023 Episodic Intestinal infection (20 sources) Clostridium difficile colitis; Translations: [Enterocolitis due to Clostridium difficile, not specified as recurrent] Episodic Intracranial injury (11 sources) Concussion with no loss of consciousness; [...] Resolved: 7 10-02-2013 Chronic Other acquired deformities (14 sources) Degenerative disorder of musculoskeletal system; Translations: [Other secondary scoliosis, site unspecified] 02-18-2025 Chronic Other acquired deformities (1 source) Other secondary scoliosis, site unspecified; Translations: [Other secondary scoliosis, site unspecified] Onset: Chronic Other aftercare (2 sources) Post-discharge follow-up; Translations: [Encounter for follow-up examination after completed treatment for conditions other than malignant neoplasm] 12-20-2023 Episodic Other aftercare (11 sources) Long-term current use of diuretic; Translations: [Encounter for therapeutic drug level monitoring] 03-23-2023 Episodic Other aftercare (11 sources) Long-term current use of drug therapy; Translations: [Other usp (current) drug therapy] 07-28-2020 Episodic Other and ill-defined cerebrovascular disease (1 source) Cerebrovascular disease; Translations: [Cerebrovascular disease, unspecified] 01-12-2024 Chronic Other and ill-defined heart disease (20 sources) Diastolic dysfunction; Translations: [Other ill-defined heart diseases] 10-26-2017 Chronic Other and ill-defined heart disease (20 sources) Ventricular hypertrophy ; Translations: [Cardiomegaly] 10-26-2017 Chronic Comment on above: Left Other bone disease and musculoskeletal deformities (14 sources) Bone density below reference range; Translations: [...] Comment on above: Bilateral Other circulatory disease (9 sources) History of cerebrovascular accident; Translations: [Personal history of transient ischemic attack (TIA), and cerebral infarction without residual deficits] 11-27-2023 Episodic Other connective tissue disease (9 sources) [...] system] 09-19-2024 Episodic Other connective tissue disease (18 sources) Cramp in lower limb; Translations: [Cramp [...] Translations: [Dysphagia, unspecified] Episodic Other gastrointestinal disorders (20 sources) Abdominal bloating; Translations: [Abdominal distension (gaseous)] [...] Translations: [Injury of head, initial encounter] Onset: Episodic Other injuries and conditions due to external causes (1 source) Blister; Translations: [Other injury of unspecified body region, initial encounter] 05-12-2023 Episodic Other injuries and conditions due to external causes (10 sources) Abrasion; Translations: [Other injury of unspecified body region, initial encounter] 02-07-2025 Episodic Other liver diseases (20 sources) Enzyme [...] lung field] Episodic Other lower respiratory disease (20 sources) Dyspnea on exertion; Translations: [Other forms of dyspnea] 12-07-2022 Episodic Other lower respiratory disease (1 source) Cough; Translations: [Acute cough] 09-13-2023 Episodic Other nervous system disorders (3 sources) Other chronic pain; Translations: [Other chronic pain] Onset: 3 Chronic Other nervous system disorders (4 sources) Neuropathy; Translations: [Polyneuropathy, unspecified] 11-27-2023 Chronic Other nervous system disorders (12 sources) Aphasia; Translations: [Aphasia] 01-05-2024 Chronic Other nervous system disorders (1 source) Aphasia; Translations: [Aphasia] 01-06-2024 Chronic Other nervous system disorders (1 source) Polyneuropathy, unspecified; Translations: [Neuropathy] Onset: 5 Chronic Other nervous system disorders (20 sources) Impairment of balance; Translations: [Other abnormalities of gait and mobility] Episodic Other nervous system disorders (1 source) Unspecified speech disturbances; Translations: [Transient speech disturbance] Onset: 4 Episodic Other nervous system disorders (16 sources) Ataxia; Translations: [Ataxia, unspecified] 11-13-2023 Episodic Other nervous system disorders (16 sources) Dysmetria; Translations: [Other lack of coordination] [...] coordination] 11-13-2023 Episodic Other nervous system disorders (4 sources) Unspecified abnormalities of gait and mobility; Translations: [Abnormality of gait] Onset: 5 11-13-2023 Episodic Other nervous system disorders (2 [...] elsewhere classified] Episodic Other upper respiratory infections (14 sources) Upper respiratory infection; Translations: [Acute upper [...] Spondylosis; intervertebral disc disorders; other back problems (14 sources) Degeneration of lumbar intervertebral disc; Translations: [...] [Low back pain, unspecified] Onset: 3 Unclassified (14 sources) Unclassified (14 sources) M51.362 - Other intervertebral disc degeneration, lumbar region with discogenic back pain and lower extremity pain Unclassified (2 sources) Other intervertebral disc degeneration, lumbar region with [...] D2 with POBA only 04/19/21;09/01/2015 PCI-BMS @ [facility] Disorders usually diagnosed in infancy, childhood, or adolescence (20 sources) Attention deficit hyperactivity disorder, predominantly inattentive type; Translations: [Other specified behavioral and emotional disorders with onset usually occurring in childhood and adolescence] Onset: 05-25-2007 Resolved: 09-15-2016 09-15-2016 Chronic Other aftercare (20 sources) Patient encounter status; Translations: [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] Onset: 07-25-2005 Resolved: 07-06-2012 [...] [Constipation, unspecified] Resolved: 03-23-2011 03-23-2011 Episodic Other injuries and conditions due to external causes (1 source) Encounter for examination and observation following other accident; Translations: [Encounter for examination and observation following other accident] Onset: 02-05-2025 Episodic Other nervous system disorders (18 sources) Abnormal gait; Translations: [Unspecified abnormalities of gait and mobility] Onset: 05-22-2024 11-13-2023 Episodic Other nervous system disorders (1 source) [...] Episodic Unclassified (1 source) Onset: 05-22-2024 05-22-2024 Unclassified (1 source) Other intervertebral disc degeneration, lumbar region with discogenic back pain and lower extremity pain; Translations: [Other intervertebral disc degeneration, lumbar region with discogenic back pain and lower extremity pain] Onset: 04-30-2025 Results Test Name Value Interpretation Reference Range Facility MR/JOSEjaskaarn 04-29-2025 MR/LUCERO [facility] [address] [place] [address], [address] [place] [address] OFFICE VISIT Date of Service: 04/29/25 MR#: [id number] Acct: [id number] Name: BHARTI AKBAR Rep #: [id number] : 1945 Provider: Dr. Alma Zepeda i, MD Age/Sex: 79/F Location: [facility] Status: Signed Intake Vital Signs 04/22/25 14:41 04/29/25 15:07 Height 5 ft 3 in 5 ft 3 in Weight: 114 lb BMI 20.2 BP 120/78 Pulse 60 Temp 98.2 F Intake Visit Reasons: ptns Chief Complaint: PTNS treatment Marketing Trainee Required: No Is patient in pain?: No [...] Adverse Reaction (Mild, Verified 03/11/25 15:12) intolerance tizanidine Adverse Reaction (Mild, Verified 04/29/25 15:09) Other triamterene (From Dyazide) Adverse Reaction (Mild, Verified 03/11/25 15:12) intolerance erythromycin base Adverse Reaction (Verified 03/11/25 15:12) Nausea Medications ???Medication ???Instructions ???Recorded ???Confirmed ???Type aspirin 81 mg tablet,delayed 81 mg PO DAILY 11/29/23 04/29/25 H istory release (Adult Low Dose Aspirin) Lactobacil.acidophilus- Bifido.animalis 1 cap PO DAILY digestion 02/0104/29/25 History 5 billion cell sprinkle capsule (Probiotic) glucosamine-chondroitin 250 mg-200 2 tab PO QPC 03/15/24 04/29/25 H istory mg tablet (Osteo Bi-Flex) multivitamin with minerals-ferrous 1 tab PO DAILY 03/15/24 04/29/25 History sulfate 4.5 mg iron tablet (One Daily Multivitamins with Minerals) atorvastatin 40 mg tablet 40 mg PO QHS cholesterol #90 tabs 09/02/24 04/29/25 Rx amlodipine 5 mg tablet 5 mg PO QDAY #90 tabs 11/12/24 Rx cholecalciferol (vitamin D3) 25 2,000 unit PO QDAY 03/11/25 History mcg (1,000 unit) capsule donepezil 5 mg tablet 10 mg PO DAILY memory 03/11/25 History levothyroxine 100 mcg tablet 100 mcg PO DAILY thyroid 03/11/25 04/29/25 History lisinopril 20 mg tablet 20 mg PO QDAY blood pressure 03/1104/29/25 History trazodone 50 mg tablet 150 mg PO QHS 03/11/25 04/29/25 Hi story carvedilol 6.25 mg tablet (Coreg) 6.25 mg PO BID blood pressure #18 0 03/24/25 04/29/25 Rx tabs solifenacin 5 mg tablet 5 mg PO QDAY #90 tabs 04/18/25 Rx Have you fallen in the past year?: Yes [facility] Medical History Nocturia Urge incontinence Aortic stenosis Gait disturbance Fatigue [...] artery ( 04/19/21) Atherosclerotic heart disease of [place] coronary artery without angina pectoris Vision problem Thyroid dysfunction Osteoarthritis Hearing problem Chronic headache GI problem Cataracts, bilateral Seasonal allergies 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 Normal [facility] Echo Completeon 04-22-2025 Echo Complete [facility] [address] [place] [address] Echo Complete 04/22/25 1310 MR#: [id number] Acct: [id number] Name: BHARTI AKBAR Rep #: [id number] : 1945 79 From: Frankie Quispe MD Attending Dr: Dr. Frankie Quispe MD Status: LETY JONES Ordering Dr: Frankie Quispe MD Date: 04/22/25 Location: [facility] Sex: F C Admitted: Reason For Study Reason For Study: , CVA, CAD Procedure This was a 2D Doppler, Color Flow transthoracic echocardiogram. Myocardial strain analysis was performed in this exam to aid in the assessment of cardiac function. Exam performed in department. Left Ventricle Normal LV size. Left ventricular systolic function is normal. The left ventricular ejection fraction is 70 %. Stage 1 diastolic dysfunction. No regional wall motion abnormalities noted. Right Ventricle Normal RV size. Normal systolic function. Atria Normal left atrium. Normal right atrium. Mitral Valve There is mild mitral annular calcification. Mild (1+) eccentric mitral valve insufficiency. Tricuspid Valve Normal tricuspid valve. Mild tricuspid valve insufficiency. Pulmonary artery systolic pressure is 30 mmHg. Aortic Valve Trisinus/trileaflet aortic valve. Moderate focal aortic valve calcification. Peak aortic valve gradient 22 mmHg. Mean aortic valve gradient 13 mmHg. Mild aortic stenosis. Mild (1+) aortic valve insufficiency. Pulmonic Valve Normal pulmonic valve. Great Vessels Normal aortic root. The pulmonary artery is normal size. Inferior vena cava collapse with respiration. Pericardium/Pleural No pericardial effusion. MMode/2D Measurements Calculations LVIDd: 3.6 cm IVSd: 1.2 cm LVOT diam: 2.0 cm LVIDs: 2.0 cm LVPWd: 0.88 cm LVOT area: 3.0 cm2 RVDd: 3.0 cm FS: 44.5 % Ao root diam: 2.9 cm LAV(MOD-bp): 34.2 ml LVAd ap4: 20.0 cm2 ACS: 0.88 cm LAV(MOD-bp) Indexed: 22.3 ml/m2 LVLd ap4: 6.8 cm LAV(MOD-sp2): 41.3 ml EDV(MOD-sp4): 48.5 ml LAV(MOD-sp4): 26.8 ml EDV(sp4-el): 50.2 ml LVAs ap4: 9.1 cm2 LVLs ap4: 5.0 cm ESV(MOD-sp4): 14.3 ml ESV(sp4-el): 14.0 ml EF(MOD-sp4): 70.5 % EF(sp4-el): 72.1 % SV(MOD-sp4): 34.2 ml SV(sp4-el): 36.2 ml LA A4 area: 12.6 cm2 SI(MOD-sp4): 22.4 ml/m2 LA dimension(2D): 3.1 cm RA A4 area: 13.5 cm2 TAPSE: 2.0 cm Time Measurements MV dec time: 0.34 sec Doppler Measurements Calculations MV E max estefania: 59.3 cm/sec Lat Peak E' Estefania: 5.7 cm/sec Med Peak E' Estefania: 4.8 cm/sec MV A max estefania: 116.0 cm/sec E/E' lat: 10.3 E/E' med: 12.4 MV E/A: 0.51 Ao V2 max: 234.8 cm/sec AI max estefania: 359.0 cm/sec MV dec slope: 176.4 cm/sec2 Ao max P.1 mmHg AI max P.5 mmHg Ao V2 mean: 175.5 cm/sec Ao mean P.4 mmHg AI dec slope: 112.8 cm/sec2 Ao V2 VTI: 59.5 cm AI P1/2t: 931.9 msec AV (velocity ratio): 0.45 YARELY(I,D): 1.4 cm2 YARELY(V,D): 1.3 cm2 LV V1 max: 101.5 cm/sec SV(LVOT): 80.5 ml PA V2 max: 74.0 cm/sec LV V1 max P.1 mmHg LV V1 mean P.6 mmHg LV V1 mean: 78.2 cm/sec LV V1 VTI: 26.5 cm PI end-d estefania: 86.4 cm/sec TR max estefania: 253.6 cm/sec TR max P.7 mmHg ECHO/Echo Complete Interpretation Summary Normal LV size. Left ventricular systolic function is normal. The left ventricular ejection fraction is 70 %. Stage 1 diastolic dysfunction. Mild aortic stenosis. Mild (1+) aortic valve insufficiency. Ordering Physician: Frankie Quispe Referring Physician: Armando Orozco Performed By: Tamiko Singh RDCS, RVT 04/22/251737 Date Frankie Quispe MD CC: Dr. Frankie Quispe MD; Dr. Armando Orozco MD Date Dictated: 04/22/251309 Date Transcribed: 04/22/251737 Metal Buggy Operator: Signed Normal [facility] Echocardiogram study reportO rdered By: Frankie Quispe on 04-22-2025 Study report [facility] [address] [place] [address] Echo Complete 04/22/25 131 MR#: [id number] Acct: [id number] Name: BHARTI AKBAR Rep #:[id number] : 1945 79 From: Frankie Salazar Attending Dr: MD Chester Yuan tatus: LETY BARCENAS Ordering Dr: Frankie Quispe MD Date: 09/04 Location: [facility] Sex: F C Admitted: Reason For Study Reason For Study: , CVA, CAD Procedure This was a 2D Doppler, Color Flow transthoracic echocardiogram. Myocardial strain analysis was performed in this exam to aid in the assessment of cardiac function. Exam performed in department. Left Ventricle Normal LV size. Left ventricular systolic function is normal. The left ventricular ejection fraction is 70 %. Stage 1 diastolic dysfunction. No regional wall motion abnormalities noted. Right Ventricle Normal RV size. Normal systolic function. Atria Normal left atrium. Normal right atrium. Mitral Valve There is mild mitral annular calcification. Mild (1+) eccentric mitral valve insufficiency. Tricuspid Valve Normal tricuspid valve. Mild tricuspid valve insufficiency. Pulmonary artery systolic pressure is 30 mmHg. Aortic Valve Trisinus/trileaflet aortic valve. Moderate focal aortic valve calcification. Peak aortic valve gradient 22 mmHg. Mean aortic valve gradient 13 mmHg. Mild aortic stenosis. Mild (1+) aortic valve insufficiency. Pulmonic Valve Normal pulmonic valve. Great Vessels Normal aortic root. The pulmonary artery is normal size. Inferior vena cava collapse with respiration. Pericardium/Pleural No pericardial effusion. MMode/2D Measurements & Calculations LVIDd: 3.6 cm IVSd: 1.2 cm LVOT diam: 2.0 cm LVIDs: 2.0 cm LVPWd: 0.88 cm LVOT area: 3.0 cm2 RVDd: 3.0 cm FS: 44.5 % Ao root diam: 2.9 cm LAV(MOD-bp): 34.2 ml LVAd ap4: 20.0 cm2 ACS: 0.88 cm LAV(MOD-bp) Indexed: 22.3 ml/m2 LVLd ap4: 6.8 cm LAV(MOD-sp2): 41.3 ml EDV(MOD-sp4): 48.5 ml LAV(MOD-sp4): 26.8 ml EDV(sp4-el): 50.2 ml LVAs ap4: 9.1 cm2 LVLs ap4: 5.0 cm ESV(MOD-sp4): 14.3 ml ESV(sp4-el): 14.0 ml EF(MOD-sp4): 70.5 % EF(sp4-el): 72.1 % SV(MOD-sp4): 34.2 ml SV(sp4-el): 36.2 ml LA A4 area: 12.6 cm2 SI(MOD-sp4): 22.4 ml/m2 LA dimension(2D): 3.1 cm RA A4 area: 13.5 cm2 TAPSE: 2.0 cm Time Measurements MV dec time: 0.34 sec Doppler Measurements & Calculations MV E max estefania: 59.3 cm/sec Lat Peak E' Estefania: 5.7 cm/sec Med Peak E' Estefania: 4.8 cm/sec MV A max estefania: 116.0 cm/sec E/E' lat: 10.3 E/E' med: 12.4 MV E/A: 0.51 Ao V2 max: 234.8 cm/sec AI max estefania: 359.0 cm/sec MV dec slope: 176.4 cm/sec2 Ao max P.1 mmHg AI max P.5 mmHg Ao V2 mean: 175.5 cm/sec Ao mean P.4 mmHg AI dec slope: 112.8 cm/sec2 Ao V2 VTI: 59.5 cm AI P1/2t: 931.9 msec AV (velocity ratio): 0.45 YARELY(I,D): 1.4 cm2 YARELY(V,D): 1.3 cm2 LV V1 max: 101.5 cm/sec SV(LVOT): 80.5 ml PA V2 max: 74.0 cm/sec LV V1 max P.1 mmHg LV V1 mean P.6 mmHg LV V1 mean: 78.2 cm/sec LV V1 VTI: 26.5 cm PI end-d estefania: 86.4 cm/sec TR max estefania: 253.6 cm/sec TR max P.7 mmHg ECHO/Echo Complete Interpretation Summary Normal LV size. Left ventricular systolic function is normal. The left ventricular ejection fraction is 70 %. Stage 1 diastolic dysfunction. Mild aortic stenosis. Mild (1+) aortic valve insufficiency. Ordering Physician: Frankie Quispe Referring Physician: Armando Orozco Performed By: Tamiko Singh RDCS, RVT 04/22/25 777 Date _ Frankie Quispe MD CC: Dr. Frankie Quispe MD; Dr. Armando Orozco MD ~ Date Dictated: 04/22/25 1310 Date Transcribed: 04/22/251737 Metal Buggy Operator: Santi [facility] Work Phone: MR/JOSEjaskaran 04-22-2025 MR/LUCERO [facility] [address], [address] [place] [id number] OFFICE VISIT Date of Service: 04/22/25 MR#: [id number] Acct: [id number] Name: BHARTI AKBAR Rep #: [id number] : 1945 Provider: Dr. Alma Zepeda i, MD Age/Sex: 79/F Location: [facility] Status: Signed Intake Vital Signs 04/11/25 13:53 04/22/25 14:41 Height 5 ft 3 in 5 ft 3 in Weight: 114 lb 114 lb BMI 20.2 20.2 BP 124/82 H 122/80 H Pulse 64 Temp 98 F 97.8 F Intake Visit Reasons: PTNS Chief Complaint: PTNS treatment Marketing Trainee Required: No Is patient in pain?: No [...] mg tablet,delayed 81 mg PO DAILY 11/29/23 04/22/25 H istory release (Adult Low Dose Aspirin) Lactobacil.acidophilus- Bifido.animalis 1 cap PO DAILY digestion 02/0104/22/25 History 5 billion cell sprinkle capsule (Probiotic) glucosamine-chondroitin 250 mg-200 2 tab PO QPC 03/15/24 04/22/25 H istory mg tablet (Osteo Bi-Flex) multivitamin with minerals-ferrous 1 tab PO DAILY 03/15/24 04/22/25 History sulfate 4.5 mg iron tablet (One Daily Multivitamins with Minerals) atorvastatin 40 mg tablet 40 mg PO QHS cholesterol #90 tabs 09/02/24 04/22/25 Rx amlodipine 5 mg tablet 5 mg PO QDAY #90 tabs 11/12/2409/04 Rx cholecalciferol (vitamin D3) 25 2,000 unit PO QDAY 03/11/25 History mcg (1,000 unit) capsule donepezil 5 mg tablet 10 mg PO DAILY memory 03/11/2509/04 History levothyroxine 100 mcg tablet 100 mcg PO DAILY thyroid 03/11/25 04/22/25 History lisinopril 20 mg tablet 20 mg PO QDAY blood pressure 03/1104/22/25 History trazodone 50 mg tablet 150 mg PO QHS 03/11/25 04/22/25 Hi story carvedilol 6.25 mg tablet (Coreg) 6.25 mg PO BID blood pressure #18 0 03/24/25 04/22/25 Rx tabs solifenacin 5 mg tablet 5 mg PO QDAY #90 tabs 04/18/2509/04 Rx Have you fallen in the past year?: Yes [facility] Medical History Nocturia Urge incontinence Aortic stenosis Gait disturbance Fatigue [...] artery ( 04/19/21) Atherosclerotic heart disease of [place] coronary artery without angina pectoris Vision problem Thyroid dysfunction Osteoarthritis Hearing problem Chronic headache GI problem Cataracts, bilateral Seasonal allergies 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 Normal [facility] MR/Darnell 04-15-2025 MR/JOSE [facility] [address], [address] [place] [address] OFFICE VISIT Date of Service: 04/15/25 MR#: [id number] Acct: [id number] Name: BHARTI AKBAR Rep #: [id number] : 1945 Provider: Dr. Alma Zepeda i, MD Age/Sex: 79/F Location: [facility] Status: Signed Intake Vital Signs 04/11/25 13:53 Height 5 ft 3 in Weight: 114 lb BMI 20.2 BP 124/82 H Temp 98 F Intake Visit Reasons: PTNS Chief Complaint: PTNS treatment Marketing Trainee Required: No Is patient in pain?: Yes [...] you fallen in the past year?: Yes [facility] Medical History Urge incontinence Aortic stenosis Gait [...] artery ( 04/19/21) Atherosclerotic heart disease of [place] coronary artery without angina pectoris Vision problem Thyroid dysfunction Osteoarthritis Hearing problem Chronic headache GI problem Cataracts, bilateral Seasonal allergies 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 Normal [facility] MR/BMS.Shira 04-11-2025 MR/BMS.LUCERO [facility] [address], [address] [place] [address] OFFICE VISIT Date of Service: 04/11/25 MR#: [id number] Acct: [id number] Name: BHARTI AKBAR Rep #: [id number] : 1945 Provider: Dr. Alma Zepeda i, MD Age/Sex: 79/F Location: [facility] Status: Signed with Addenda ADDENDUM by Anne-Marie [...] PTNS with Anne-Marie Chief Complaint: urge incontinence Marketing Trainee Required: No Is patient in pain?: No [...] you fallen in the past year?: Yes [facility] Medical History Aortic stenosis Gait disturbance Fatigue [...] artery ( 04/19/21) Atherosclerotic heart disease of [place] coronary artery without angina pectoris Vision problem Thyroid dysfunction Osteoarthritis Hearing problem Chronic headache GI problem Cataracts, bilateral Seasonal allergies 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 Normal [facility] Cardiology Visit Reporton Cardiology Visit Report [facility] [facility] [place] [address] OFFICE VISIT Date of Service: 03/11/25 MR#: [id number] Acct: [id number] Name: BHARTI AKBAR Rep #: [id number] : 1945 Provider: Dr. Frankie Quispe MD Age/Sex: 79/F Location: [facility] Status: Signed HPI HPI History of Present [...] Source Monitor Intake Visit Reasons: 6 M FU Marketing Trainee Required: No Accompanied by: Self Is patient [...] you fallen in the past year?: Yes [facility] Medical History Aortic stenosis Gait disturbance Fatigue [...] artery ( 04/19/21) Atherosclerotic heart disease of [place] coronary artery without angina pectoris Vision problem Thyroid dysfunction Osteoarthritis Hearing problem Chronic headache GI problem Cataracts, bilateral Seasonal allergies nursing home use 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 [facility] L/S Spine Min 4 Viewson 06-0 L/S Spine Min 4 Views [facility] Services [address] [place], [place] [address] L/S Spine Min 4 Views MR#: [id number] Acct: [id number] Name: BHARTI AKBAR Rep #: [id number] : 1945 F 79 From: Beverly capellan MD PCP: Dr. Armando Orozco MD Status: DEP AMB Study: L/S Spine Min 4 Views Date of Exam: 02/17/25 Exam# [id number] Ordering Dr: Aure Gonzales PROCEDURE: L/S SPINE MIN 4 VIEWS 02/17/2025 [...] of instability on flexion/extension images. Reading Location: [place] [address] CC: SARAH Peterson; Dr. Armando Orozco MD Metal Buggy Operator: Signed Normal [facility] Orthopedic Visit Reporton Orthopedic Visit Report [facility] [place] [address] OFFICE VISIT Date of Service: 02/17/25 MR#: [id number] Acct: [id number] Name: BHARTI AKBAR Rep #: [id number] : 1945 Provider: SARAH Peterson Age/Sex: 79/F Location: [facility] Status: Signed Intake Vital Signs 01/30/25 15:39 [...] you fallen in the past year?: Yes [facility] Medical History Aortic stenosis Gait disturbance Fatigue [...] artery ( 04/19/21) Atherosclerotic heart disease of [place] coronary artery without angina pectoris Vision problem Thyroid dysfunction Osteoarthritis Hearing problem Chronic headache GI problem Cataracts, bilateral Seasonal allergies 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 Normal [facility] Thoracic Spine 2 Viewson Thoracic Spine 2 Views [facility] Imaging Services [address] [place] [address] Thoracic Spine 2 Views MR#: [id number] Acct: [id number] Name: BHARTI AKBAR Rep #: [id number] : 1945 F 79 From: Beverly capellan MD PCP: Dr. Armando Orozco MD Status: DEP AMB Study: Thoracic Spine 2 Views Date of Exam: 02/17/25 Exam# [id number] Ordering Dr: Aure Gonzales PROCEDURE: THORACIC SPINE 2 VIEWS 02/17/2025 REASON [...] Spine 2 Views IMPRESSION: Spondylosis. Reading Location: [place] [address] CC: SARAH Peterson; Dr. Armando Orozco MD Metal Buggy Operator: Signed Normal [facility] MR/BMS.BVSon 02-07-2025 MR/BMS.BVS [facility] [address] [place] [address] OFFICE VISIT Date of Service: 02/07/25 MR#: [id number] Acct: [id number] Name: BHARTI AKBAR Rep #: [id number] : 1945 Provider: SARAH Valdivia Age/Sex: 79/F Location: [facility].BVS Status: Signed Intake Vital Signs 09/25/24 11:24 [...] tablet 5 mg PO DAILY memory 10/16/23 05/ History aspirin 81 mg tablet,delayed 81 mg [...] you fallen in the past year?: Yes [facility] Medical History Aortic stenosis Gait disturbance Fatigue [...] artery ( 04/19/21) Atherosclerotic heart disease of [place] coronary artery without angina pectoris Vision problem Thyroid dysfunction Osteoarthritis Hearing problem Chronic headache GI problem Cataracts, bilateral Seasonal allergies 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 Normal [facility] Brain/Head without Contrasto n 01-30-2025 Brain/Head without Contrast [facility] Imaging Services [address] [place] [address] Brain/Head without Contrast MR#: [id number] Acct: [id number] Name: BHARTI AKBAR Rep #: [id number] : 1945 F 79 From: Lauren Salazar PCP: Dr. Armando Orozco MD Status: REG ER Study: Brain/Head without Contrast Date of Exam: 01/10 11/05 Exam# [id number] Ordering Dr: Harris James DO PROCEDURE: BRAIN/HEAD WITHOUT CONTRAST 01/30/2025 [...] IMPRESSION: No acute intracranial process. Reading Location: [id number] CC: Dr. Harris James DO; Dr. Armando Orozco MD Metal Buggy Operator: Signed Normal [facility] CNOVon 01-30-2025 CNOV Office Visit (UCWSTR ) RAFFYBHARTI ([id number]) 1945 F NFR Date Time Provider Department 01/30/25 3:15 PM JAGUAR BALLARDTR During your visit today, we recorded the following information about you: Jaguar Ballard APRN.STEAM PRESSER 01/30/2025 6:45 PM Signed Patient triaged at [facility]. 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 Armando Orozco MD Status: REG ER Study: Chest without Contrast Date of Exam: 01/30/25 Exam# [id number] Ordering Dr: Harris James DO PROCEDURE: CHEST WITHOUT CONTRAST 01/30/2025 [...] atelectasis versus possible pulmonary contusion. Reading Location: [facility] CC: Dr. Harris James DO; Dr. Armando Orozco MD Metal Buggy Operator: Signed Normal [facility] Emergency Department Summary on 01-30-2025 Emergency Department Summary [facility] Medical Records Department [address] [place] [address] Emergency Department Summary 01/30/25 MR#: [id number] Acct: [id number] Name: BHARTI AKBAR Rep #: [id number] : 1945 79 From: Harris James DO PCP: Dr. Armando Orozco MD [...] she does not take any blood thinners. [facility] Medical History Aortic stenosis Gait disturbance Fatigue [...] artery ( 04/19/21) Atherosclerotic heart disease of [place] coronary artery without angina pectoris Vision problem Thyroid dysfunction Osteoarthritis Hearing problem Chronic headache GI problem Cataracts, bilateral Seasonal allergies nursing home use of drug Ventricular hypertrophy Diastolic dysfunction Aortic insufficiency Family history of premature coronary heart disease Aortic valve disease Nonspecific abnormal serum enzyme levels Peptic ulcer disease Carotid artery bruit Palpitations Angina pectoris Chest pain Insomnia GERD (gastroesophageal reflux disease) Home Medications ???Medication ???Instructions ???Recorded ???Last Taken ???Type donepezil 5 mg tablet 5 mg PO DAILY memory 10/16/2312/11 History aspirin 81 mg tablet,delayed 81 mg [...] 40 mg PO QHS cholesterol #90 tabs 12/23/24 Unknown Rx famotidine 20 mg tablet 20 [...] , Age 75 (more content not included)... [facility] CNOVon 12-24-2024 CNOV Office Visit (FAMPWS ) BHARTI AKBAR ([id number]) 1945 F NFR Date Time Provider Department 12/24/24 1:00 PM KUSHAL WELDON During your visit today, we recorded the following information about you: Pulse Respiration Blood pressure Weight 62/minute 18/minute 170/78 54.4 kg Kushal Weldon APRN.STEAM PRESSER 12/24/2024 1:28 PM Signed Chief Complaint Patient [...] extremity arterial study with exercise completed at [facility] on 12/18/2024. She has been evaluated by orthopedics at [facility], Dr. Juan Kilpatrick (07/26/2023). Received cortisone injections, [...] in July [address] Kilpatrick at [facility] and was advised to follow up every [...] right knee injection by Dr. Kilpatrick at [facility] in July 2023. - Follow-up with orthopedic surgery for potential repeat knee injections every 3 months. - Provided information on accessing [facility] [employer] for records. 2. Fibromyalgia (M79.7) Widespread pain, [...] needed. This note was partly generated using [employer] voice recognition dictation and may contain some misspelled or inaccurate words missed on review. Recording using [employer] software for draft documentation of the visit was discussed with the patient/authorized telesales representative; all questions welcomed and answered. Patient/authorized telesales representative agreed to proceed Kushal Weldon APRN.STEAM PRESSER 12/24/2024 1:26 PM Signed We discussed your fibromyalgia and pain management: - You are experiencing widespread pain, including in your knees, hips, shoulders, and other areas, which you believe is related to your fibromyalgia. - You have been taking Tylenol every six hours for pain relief but are still experiencing significant discomfort. - I recommend starting (more content not included)... Normal [facility]an Arterial study reportOrdered By: Romie Batista on 12-18-2024 Noninvasive arteriosclerosis study report [facility] Cardiovascular Services [address] [place] [address] Lower Ext Art Exam w/o Exercis 12/18/24 1405 MR#: [id number] Acct: [id number] Name: BHARTI AKBAR Rep #:[id number] : [...] ~ Date Dictated: 12/18/241404 Date Transcribed: 12/18/242125 Metal Buggy Operator: Signed [facility] Other Lower Ext Art Exam w/o Exerc coleen 12-18-2024 Lower Ext Art Exam w/o Exercis [facility] Cardiovascular Services [address] [place] [address] Lower Ext Art Exam w/o Exercis 12/18/241404 MR#: [id number] Acct: [id number] Name: BHARTI AKBAR Rep #: [id number] : 1945 79 From: Romie Batista MD [...] MD Armando Orozco Performed By: Anthony Pink, Jaguar 12/18/242125 Date Romie Batista MD CC: DPKisha Cannon; Dr. Armando Orozco MD Date Dictated: 12/18/24 1405 Date Transcribed: 12/18/242125 Metal Buggy Operator: Signed Normal [facility] Venous Duplex US - Ian Extre [facility] 12-18-2024 Venous Duplex US - Ian Extrem [facility] Cardiovascular Services [address] [place] [address]. [place] [address] Venous Duplex US - Ian Extrem 12/18/24 1414 MR#: [id number] Acct: [id number] Name: BHARTI AKBAR Rep #: [id number] : 1945 79 From: Romie Batista MD Attending Dr: Dr. Jaguar Cannon, JULIAN Status: RE G CLI Ordering Dr: Jaguar [...] Performed By: Anthony Pink, RVT 12/18/242129 Date Romie Batista MD CC: DPM Dr. Jaguar Cannon; Dr. Armando Orozco MD Date Dictated: 12/18/241413 Date Transcribed: 12/18/242129 Metal Buggy Operator: Signed Normal [facility] Venous duplex ultrasound rep ortOrdered By: Romie Batista on 12-18-2024 US Vein [facility] Cardiovascular Services [address] [place] [address] Venous Duplex US - Ian Extrem 12/18/241413 MR#: [id number] Acct: [id number] Name: BHARTI AKBAR Rep #:[id number] : 1945 79 From: Romie Batista MD Attending Dr: Dr. Jaguar Cannon DPKisha Status: REG CLI Ordering Dr: Jaguar Cannon [...] Ordering Physician: Jaguar Cannon Referring Physician: MD Ernesto Armando Performed By: Anthony Pink, RVT 12/18/242129 Date _ Romie Batista MD CC: JULIAN Cannon; Dr. Armando Orozco MD ~ Date Dictated: 12/18/241413 Date Transcribed: 12/18/242129 Metal Buggy Operator: Signed [facility] Other CNOVon 12-10-2024 CNOV Office Visit (FAMPWS ) RAFFYBHARTI ([id number]) 1945 F NFR Date Time Provider Department 12/10/24 1:20 PM ARMANDO OROZCO [facility] During your visit today, we recorded the [...] month follow up. Bharti is adjusting to jail, noting a significant decrease in physical activity from 10,000-13,000 steps per day to less than 2,000. She misses the social interaction and sense of purpose from her previous job at [employer] and is considering volunteer work at [employer]. She also mentions her 's reluctance to [...] or dizziness. Reports occ sob. Follows with [facility] every 6 months. Next appt is in January. Meds are being adjusted by Cardiology. Lipid: Tries to watch her diet. Denies exercise, but is planning on doing this. [facility] accepts Silver Sneakers so she's planning on [...] Podiatry - Follows with Dr. Cannon at [facility] for right drop foot. Is also having an US or PAD testing done for the swelling and pain in her lower legs. Pt also notes she's in PT as well for right drop foot. Doing PT through [facility] in [place]. HM - Does have Adv Dir/Living Will, both daughters are in charge of her medical. Past medical history, appointments, medications, allergies reviewed. Previous Medical History PAST MEDICAL HISTORY Diagnosis Date A-fib (HCC) Astigmatism, unspecified - Both Eyes 11/17/2014 C2 cervical fracture ([facility]) CAD (coronary artery disease) 2014 heart stent x 1/ bare metal CAD (coronary artery disease) Chronic periscapular pain on left side 07/19/2016 Closed fracture of cervical spine ([facility]) 11/03/2010 DEPRESSIVE DISORDER NEC 01/23/2007 Depressive disorder, [...] OF 2002 Lasik Surgery on both eyes ([facility]) PAST SURGICAL HISTORY OF 2010 broken neck PAST SURGICAL HISTORY OF 08/2015 Bare (more content not included)... Normal [facility] EMG(NEURO/NI)on 11-18-2024 Results can be seen in attached scanned documents. If you are a patient reviewing this test result, call the doctor who ordered the test with any questions. [facility] CBC W Auto Differential pane l (Bld)on 11-05-2024 Basophils (Bld) [#/Vol] [facility] Basophils/100 WBC (Bld) 0.4 % [facility] Differential cell count method Nom (Bld) Auto [facility] Eosinophils (Bld) [#/Vol] 0.07 10*3/uL [facility] Eosinophils/100 WBC (Bld) 1.4 % [facility] Erythrocyte distribution width (RBC) [Ratio] 11.9 % 11.5 - 15.0 % [facility] Hematocrit (Bld) [Volume fraction] 41.5 % 36.0 - 46.0 % [facility] Hemoglobin (Bld) [Mass/Vol] 14.3 g/dL 11.5 - 15.5 g/dL [facility] Immature granulocytes (Bld) [#/Vol] NINF [facility] Immature granulocytes/100 WBC (Bld) 0.2 % [facility] Interpretation and review of laboratory results Abnormal [facility] Lymphocytes (Bld) [#/Vol] 1.5 10*3/uL [facility] Lymphocytes/100 WBC (Bld) 30.5 % [facility] MCH (RBC) [Entitic mass] 30.6 pg 26.0 - 34.0 pg [facility] MCHC (RBC) [Mass/Vol] 34.5 g/dL 30.5 - 36.0 g/dL [facility] MCV (RBC) [Entitic vol] 88.7 fL 80.0 - 100.0 fL [facility] Monocytes (Bld) [#/Vol] 0.35 10*3/uL [facility] Monocytes/100 WBC (Bld) 7.1 % [facility] Neutrophils (Bld) [#/Vol] 2.96 10*3/uL [facility] Neutrophils/100 WBC (Bld) 60.4 % [facility] Nucleated RBC (Bld) [#/Vol] NINF [facility] Nucleated RBC/100 WBC (Bld) [Ratio] 0 % /100 WBC [facility] Platelet mean volume (Bld) [Entitic vol] 8.5 fL Low 9.0 - 12.7 fL [facility] Platelets (Bld) [#/Vol] 280 10*3/uL [facility] RBC (Bld) [#/Vol] 4.68 10*6/uL 3.90 - 5.2 0 m/uL [facility] WBC (Bld) [#/Vol] 4.91 10*3/uL [facility] Basophils (Bld) [#/Vol] 10*3/uL Normal <0.11 [facility] Comment on above: Order Comment: Speci men Type: BLOOD SPECIMENOrdering Facility: [facility] Address: [address] [place], [place] [address] Performed By: #### 5 7021-8 ####[facility] CH[facility]STEN C[facility]RDENAS [id number] [place] [address] [place]#### 4537-7 ####[facility] LABCLIA [id number] [place] [address] [place] Basophils/100 WBC (Bld) 0.4 % Normal [facility] Comment on above: Order Comment: Speci men Type: BLOOD SPECIMENOrdering Facility: [facility] Address: [address] [place] [address] Performed By: #### 5 7021-8 ####[facility] [id number] [place] [address] [place]#### 4537-7 ####[facility] LABCLIA [id number] [place] [address] [place] Differential cell count method Nom (Bld) Auto Normal [facility] Comment on above: Order Comment: Speci men Type: BLOOD SPECIMENOrdering Facility: [facility] Address: [address] [place] [address] Performed By: #### 5 7021-8 ####[facility]ACH[facility]CL[facility] [id number] [place] [address] [place]#### 4537-7 ####[facility] LABCLIA [id number] [place] [address] [place] Eosinophils (Bld) [#/Vol] 0.07 10*3/uL Normal <0.46 [facility] Comment on above: Order Comment: Speci men Type: BLOOD SPECIMENOrdering Facility: [facility] Address: [address] [place] [address] Performed By: #### 5 7021-8 ####[facility] SYSTEMWNCLIA [id number] [place] [address] [place]#### 4537-7 ####[facility] LABCLIA [id number] [address] [place] [address] [place] Eosinophils/100 WBC (Bld) 1.4 % Normal [facility] Comment on above: Order Comment: Speci men Type: BLOOD SPECIMENOrdering Facility: [facility] Address: [address] [place] [address] Performed By: #### 5 7021-8 ####[facility] MILLWNCLIA [id number] [place] [address] [place]#### 4537-7 ####[facility] LABCLIA [id number] [place] [address] [place] Erythrocyte distribution width (RBC) [Ratio] 11.9 % Normal 11.5-15.0 [facility] Comment on above: Order Comment: Speci men Type: BLOOD SPECIMENOrdering Facility: [facility] Address: [address] [place] [address] Performed By: #### 5 7021-8 ####[facility]CL[facility] [id number] [place] [address] [place]#### 4537-7 ####[facility] LABCLIA [id number] [place] [address] [place] Hematocrit (Bld) [Volume fraction] 41.5 % Normal 36.0-46.0 [facility] Comment on above: Order Comment: Speci men Type: BLOOD SPECIMENOrdering Facility: [facility] Address: [address] [place], [place] [address] Performed By: #### 5 7021-8 ####[facility] SYSTEMWNCLIA [id number] [place] [address] [place]#### 4537-7 ####[facility] LABCLIA [id number] [place] [id number] [place] Hemoglobin (Bld) [Mass/Vol] 14.3 g/dL Normal 11.5-15.5 [facility] Comment on above: Order Comment: Speci men Type: BLOOD SPECIMENOrdering Facility: [facility] Address: [address] [place] [address] Performed By: #### 5 7021-8 ####[facility] [id number] [place] [address] [place]#### 4537-7 ####[facility] LABCLIA [id number] [place] [address] [place] Immature granulocytes (Bld) [#/Vol] 10*3/uL Normal <0.10 [facility] Comment on above: Order Comment: Speci men Type: BLOOD SPECIMENOrdering Facility: [facility] Address: [address] [place] [address] Performed By: #### 5 7021-8 ####[facility] [id number] [place] [address] [place]#### 4537-7 ####[facility] LABCLIA [id number] [place] [address] [place] Immature granulocytes/100 WBC (Bld) 0.2 % Normal [facility] Comment on above: Order Comment: Speci men Type: BLOOD SPECIMENOrdering Facility: [facility] Address: [address] [place] [address] Performed By: #### 5 7021-8 ####[facility] [id number] [place] [address] [place]#### 4537-7 ####[facility] LABCLIA [id number] [place] [address] [place] Lymphocytes (Bld) [#/Vol] 1.50 10*3/uL Normal 1.00-4.00 [facility] Comment on above: Order Comment: Speci men Type: BLOOD SPECIMENOrdering Facility: [facility] Address: [address] [place] [address] Performed By: #### 5 7021-8 ####[facility] [id number] [place] [address] [place]#### 4537-7 ####[facility] LABCLIA [id number] [place] [address] [place] Lymphocytes/100 WBC (Bld) 30.5 % Normal [facility] Comment on above: Order Comment: Speci men Type: BLOOD SPECIMENOrdering Facility: [facility] Address: [address] [place] [address] Performed By: #### 5 7021-8 ####[facility] [id number] [place] [address] [place]#### 4537-7 ####[facility] LABCLIA [id number] [place] [address] [place] MCH (RBC) [Entitic mass] 30.6 pg Normal 26.0-34.0 [facility] Comment on above: Order Comment: Speci men Type: BLOOD SPECIMENOrdering Facility: [facility] Address: [address] [place] [address] Performed By: #### 5 7021-8 ####[facility] [id number] [place] [address] [place]#### 4537-7 ####[facility] LABCLIA [id number] [place] [address] [place] MCHC (RBC) [Mass/Vol] 34.5 g/dL Normal 30.5-36.0 [facility] Comment on above: Order Comment: Speci men Type: BLOOD SPECIMENOrdering Facility: [facility] Address: [address] [place] [address] Performed By: #### 5 7021-8 ####[facility]CL[facility] [id number] [place] [address] [place]#### 4537-7 ####[facility] LABCLIA [id number] [place] [address] [place] MCV (RBC) [Entitic vol] 88.7 fL Normal 80.0-100.0 [facility] Comment on above: Order Comment: Speci men Type: BLOOD SPECIMENOrdering Facility: [facility] Address: [address] [place] [address] Performed By: #### 5 7021-8 ####[facility] [id number] [place] [address] [place]#### 4537-7 ####[facility] LABCLIA [id number] [place] [address] [place] Monocytes (Bld) [#/Vol] 0.35 10*3/uL Normal <0.87 [facility] Comment on above: Order Comment: Speci men Type: BLOOD SPECIMENOrdering Facility: [facility] Address: [address] [place] [address] Performed By: #### 5 7021-8 ####[facility] [id number] [place] [address] [place]#### 4537-7 ####[facility] LABCLIA [id number] [address] [place] Monocytes/100 WBC (Bld) 7.1 % Normal [facility] Comment on above: Order Comment: Speci men Type: BLOOD SPECIMENOrdering Facility: [facility] Address: [address] [place] [address] Performed By: #### 5 7021-8 ####[facility] [id number] [place] [address] [place]#### 4537-7 ####[facility] LABCLIA [id number] [place] [address] [place] Neutrophils (Bld) [#/Vol] 2.96 10*3/uL Normal 1.45-7.50 [facility] Comment on above: Order Comment: Speci men Type: BLOOD SPECIMENOrdering Facility: [facility] Address: [address] [place] [address] Performed By: #### 5 7021-8 ####[facility] [id number] [place] [address] [place]#### 4537-7 ####[facility] LABCLIA [id number] [place] [address] [place] Neutrophils/100 WBC (Bld) 60.4 % Normal [facility] Comment on above: Order Comment: Speci men Type: BLOOD SPECIMENOrdering Facility: [facility] Address: [address] [place] [address] Performed By: #### 5 7021-8 ####[facility] [id number] [place] [address] [place]#### 4537-7 ####[facility] LABCLIA [id number] [place] [address] [place] Nucleated RBC (Bld) [#/Vol] 10*3/uL Normal <0.01 [facility] Comment on above: Order Comment: Speci men Type: BLOOD SPECIMENOrdering Facility: [facility] Address: [address] [place] [address] Performed By: #### 5 7021-8 ####[facility] MILLWNCLIA [id number] [place] [address] [place]#### 4537-7 ####[facility] LABCLIA [id number] [place] [address] [place] Nucleated RBC/100 WBC (Bld) [Ratio] 0.0 /100 WBC Normal [facility] Comment on above: Order Comment: Speci men Type: BLOOD SPECIMENOrdering Facility: [facility] Address: [address] [place] [address] Performed By: #### 5 7021-8 ####[facility] BEACHJOHNNIELIA [id number] [place] [address] [place]#### 4537-7 ####[facility] LABIA [id number] [place] [address] [place] Platelet mean volume (Bld) [Entitic vol] 8.5 fL Low 9.0-12.7 [facility] Comment on above: Order Comment: Speci men Type: BLOOD SPECIMENOrdering Facility: [facility] Address: [address] [place] [address] Performed By: #### 5 7021-8 ####[facility] [id number] [place] [address] [place]#### 4537-7 ####[facility] LABCLIA [id number] [place] [address] [place] Platelets (Bld) [#/Vol] 280 10*3/uL Normal 150-400 [facility] Comment on above: Order Comment: Speci men Type: BLOOD SPECIMENOrdering Facility: [facility] Address: [address] [place] [address] Performed By: #### 5 7021-8 ####[facility]CL[facility] [id number] [place] [address] [place]#### 4537-7 ####[facility] LABIA [id number] [place] [address] [place] RBC (Bld) [#/Vol] 4.68 10*6/uL Normal 3.90-5.[address] [facility] Comment on above: Order Comment: Speci men Type: BLOOD SPECIMENOrdering Facility: [facility] Address: [address] [place] [address] Performed By: #### 5 7021-8 ####[facility] [id number] [place] [address] [place]#### 4537-7 ####[facility] LABIA [id number] [place] [address] [place] WBC (Bld) [#/Vol] 4.91 10*3/uL Normal 3.70-11.[address] [facility] Comment on above: Order Comment: Speci men Type: BLOOD SPECIMENOrdering Facility: [facility] Address: [address] [place] [address] Performed By: #### 5 7021-8 ####[facility] [id number] [place] [address] [place]#### 4537-7 ####[facility] LABIA [id number] [address] [place] CNOVon 11-05-2024 CNOV Office Visit (EMETERIO ) BHARTI AKBAR ([id number]) 1945 F NFR Date Time Provider Department 11/05/24 11:30 AM MAYA KATZ During your visit today, we recorded the following information about you: Pulse Blood pressure Weight 66/minute 160/67 54.5 kg Maya Katz PA-C 11/05/2024 1:04 PM Signed [facility] Name: Bharti Akbar [...] Resources: E.[facility] - [facility] Dementia Friendly [facility] on the [place] [facility]. DUCT LAYER HELPER/OT/PT: Speech therapy, Occupational therapy, Physical Therapy Driving: Do you have safety concerns? Power of Breaker Unit Assembler/ planning of the patient's will Project Lifesaver: [...] hospital stroke workup after receiving TNK per [facility] notes. There was no stroke. As with many of patient's complaints, t (more content not included)... Normal [facility] CRP SerPl-mCncon 11-05-2024 CRP [Mass/Vol] mg/L Normal <0.9 [facility] Comment on above: Order Comment: Speci men Type: BLOOD SPECIMEN [facility] Address: [address] [place] [address] Performed By: #### 3 016-3, , 1988-01 #### [facility] CLIA [id number] [address] STATES OF [facility] Comprehensive metabolic 2000 panelon 11-05-2024 Albumin [Mass/Vol] 4.3 g/dL Normal 3.9-4.9 [facility] Comment on above: Order Comment: Speci men Type: BLOOD SPECIMEN [facility] Address: [address] [place] [address] Performed By: #### 3 016-3, , 1988-01 #### [facility] CLIA [id number] [address] STATES [place] ALP [Catalytic activity/Vol] 111 U/L Normal 34-123 [facility] Comment on above: Order Comment: Speci men Type: BLOOD SPECIMEN [facility] Address: [address] [place] [address] Performed By: #### 3 016-3, , 1988-01 #### [facility] CLIA [id number] [address] [place] ALT With P-5'-P [Catalytic activity/Vol] 24 U/L Normal 7-38 [facility] Comment on above: Order Comment: Speci men Type: BLOOD SPECIMEN [facility] Address: [address] [place] [address] Performed By: #### 3 016-3, , 1988-01 #### [facility] CLIA [id number] [address] STATES OF [facility] Anion gap [Moles/Vol] 11 mmol/L Normal 8-15 [facility] Comment on above: Order Comment: Speci men Type: BLOOD SPECIMEN [facility] Address: [address] [place] [address] Performed By: #### 3 016-3, , 1988-01 #### [facility] CLIA [id number] 1 [place] [address] [place] AST With P-5'-P [Catalytic activity/Vol] 32 U/L Normal 13-35 [facility] Comment on above: Order Comment: Speci men Type: BLOOD SPECIMEN [facility] Address: [address] [place] [address] Performed By: #### 3 016-3, , 1988-01 #### [facility] CLIA [id number] 1 [place] [address] [place] Bilirubin [Mass/Vol] 0.4 mg/dL Normal 0.2-1.3 [facility] Comment on above: Order Comment: Speci men Type: BLOOD SPECIMEN [facility] Address: [address] [place] [address] Performed By: #### 3 016-3, , 1988-01 #### [facility] CLIA [id number] 1 [place] [address] [place] Calcium [Mass/Vol] 9.4 mg/dL Normal 8.5-10.2 [facility] Comment on above: Order Comment: Speci men Type: BLOOD SPECIMEN [facility] Address: [address] [place] [address] Performed By: #### 3 016-3, , 1988-01 #### [facility] CLIA [id number] [address] [place] Chloride [Moles/Vol] 104 mmol/L Normal 98-107 [facility] Comment on above: Order Comment: Speci men Type: BLOOD SPECIMEN [facility] Address: [address] [place] [address] Performed By: #### 3 016-3, , 1988-01 #### [facility] CLIA [id number] [address] [place] CO2 [Moles/Vol] 28 mmol/L Normal 22-30 [facility] Comment on above: Order Comment: Speci men Type: BLOOD SPECIMEN [facility] Address: [address] [place] [address] Performed By: #### 3 016-3, , 1988-01 #### [facility] CLIA [id number] [address] OF [facility] Creatinine [Mass/Vol] 0.88 mg/dL Normal 0.58-0.96 [facility] Comment on above: Order Comment: Speci men Type: BLOOD SPECIMEN [facility] Address: [address] [place] [address] Performed By: #### 3 016-3, , 1988-01 #### [facility] CLIA [id number] [address] Creatinine and Glomerular filtration rate.predicted panel (S/P/Bld) 67 mL/min/1.73m??? Normal >=60 [facility] Comment on above: Order Comment: Speci men Type: BLOOD SPECIMEN [facility] Address: [address] [place] [address] Result Comment: Selina mated Glomerular Filtration Rate [...] actual GFR. Performed By: #### 3 016-3, , 1988-01 #### [facility] CLIA [id number] 1 [place] [address] [place] Glucose [Mass/Vol] 104 mg/dL High 74-99 [facility] Comment on above: Order Comment: Miguel courtney Type: BLOOD SPECIMEN [facility] Address: [address] [place] [address] Result Comment: The [place] Diabetes Association (ADA) provides guidance for cutoff [...] Standards of Medical Care in Diabetes 2016, [place] Diabetes Association. Diabetes Care. 2016.39(Suppl 1). Performed By: #### 3 016-3, 1988-01 #### [facility] CLIA [id number] 1 [place] [address] [place] Potassium [Moles/Vol] 4.3 mmol/L Normal 3.7-5.1 [facility] Comment on above: Order Comment: Tobyi men Type: BLOOD SPECIMEN [facility] Address: [address] [place] [address] Performed By: #### 3 016-3, , 1988-01 #### [facility] CLIA [id number] 1 [place] [address] [place] Protein [Mass/Vol] 7.0 g/dL Normal 6.3-8.0 [facility] Comment on above: Order Comment: Miguel courtney Type: BLOOD SPECIMEN [facility] Address: [address] [place], [place] [address] Performed By: #### 3 016-3, 1987-5 #### [facility] CLIA [id number] 1 [place] [address] [place] Sodium [Moles/Vol] 143 mmol/L Normal 136-144 [facility] Comment on above: Order Comment: Speci men Type: BLOOD SPECIMEN [facility] Address: [address] [place] [address] Performed By: #### 3 016-3, , 1988-01 #### [facility] CLIA [id number] 1 [place] [address] [place] Urea nitrogen [Mass/Vol] 18 mg/dL Normal 7-21 [facility] Comment on above: Order Comment: Speci men Type: BLOOD SPECIMEN [facility] Address: [address] [place] [address] Performed By: #### 3 016-3, , 1988-01 #### [facility] CLIA [id number] 1 [place] [address] [place] ESR Westergren method (Bld) [Velocity]on 11-05-2024 ESR (Bld) [Velocity] 5 mm/h Normal 0-20 [facility] Comment on above: Order Comment: Speci men Type: BLOOD SPECIMENOrdering Facility: [facility] Address: [address] [place] [address] Performed By: #### 5 7021-8 ####[facility] [id number] [place] [address] [place]#### 4537-7 ####[facility] LABCLIA [id number] [place] [address] [place] HbA1c (Bld)on 11-05-2024 Average glucose Estimated from glycated hemoglobin (Bld) [Mass/Vol] 85 mg/dL Normal [facility] Comment on above: Order Comment: Speci men Type: BLOOD SPECIMEN [facility]: [facility] Address: [address] [place] [address] Result Comment: eAG: (Estimated average glucose) is a calculated value from HgbA1c and is telesales representative of the average blood glucose level in the last 2-3 month period. Performed By: #### 3 016-3, 79601-9, 1988-01 #### [facility] CLIA [id number] [address] STATES OF [facility] HbA1c (Bld) [Mass fraction] 4.6 % Normal 4.3-5.6 [facility] Comment on above: Order Comment: Specsoraida courtney Type: BLOOD SPECIMEN [facility]: [facility] Address: [address] [place] [address] Result Comment: [place] Diabetes Association guidelines indicate that patients with HgbA1c in the range 5.7-6.4% are at increased risk for development of diabetes, and intervention by lifestyle modification may be beneficial. HgbA1c greater or equal to 6.5% is considered diagnostic of diabetes. Performed By: #### 3 016-3, 15726-[address]-01 #### [facility] CLIA [id number] [address] Methylmalonate SerPl-sCncon 11-05-2024 Methylmalonate [Moles/Vol] 0.23 umol/L Normal <=0.40 [facility] Comment on above: Order Comment: Miguel courtney Type: BLOOD SPECIMEN [facility] Address: [address] [place] [address] Result Comment: This test was developed, and its performance characteristics determined by the [facility] Department of Pathology and Laboratory Medicine. It has not been cleared or approved by the FDA. The [facility] Department of Pathology and Laboratory Medicine is regulated under CLIA as qualified to perform high-complexity testing. This test is used for clinical purposes. It should not be regarded as investigational or for research. Performed By: #### 3 016-3, 92132-6, 1988-01 #### [facility] CLIA [id number] [address] OF [facility] PROTEIN ELECTROPHORESIS SERU M WITH JUANA (P)on 11-05-2024 Albumin [Mass/Vol] 4.04 g/dL Normal 3.43-5.41 [facility] Comment on above: Order Comment: Speci men Type: BLOOD SPECIMEN [facility] Address: [address] [place] [address] Performed By: #### 3 016-3, , 1988-01 #### [facility] CLIA [id number] [address] STATES OF [facility] Alpha 1 globulin Elph [Mass/Vol] 0.26 g/dL Normal 0.18-0.43 [facility] Comment on above: Order Comment: Speci men Type: BLOOD SPECIMEN [facility] Address: [address] [place] [address] Performed By: #### 3 016-3, , 1988-01 #### [facility] CLIA [id number] [address] [place] [address] STATES OF [facility] Alpha 2 globulin Elph [Mass/Vol] 0.69 g/dL Normal 0.42-0.98 [facility] Comment on above: Order Comment: Speci men Type: BLOOD SPECIMEN [facility]: [facility] Address: [address] [place] [address] Performed By: #### 3 016-3, , 1988-01 #### [facility] CLIA [id number] [address] [place] [address] STATES OF [facility] Beta globulin Elph [Mass/Vol] 0.80 g/dL Normal 0.61-1.17 [facility] Comment on above: Order Comment: Speci men Type: BLOOD SPECIMEN [facility]: [facility] Address: [address] [place] [address] Performed By: #### 3 016-3, , 1988-01 #### [facility] CLIA [id number] [address] [place] COMMENT (SERUM PROT ELECTRO) Monoclonal Protein analysis (immunofixation) is not indicated. Normal [facility] Comment on above: Order Comment: Speci men Type: BLOOD SPECIMEN [facility]: [facility] Address: [address] [place] [address] Performed By: #### 3 016-3, , 1988-01 #### [facility] CLIA [id number] 1 [place] [address] [place] Gamma globulin Elph [Mass/Vol] 0.71 g/dL Normal 0.53-1.51 [facility] Comment on above: Order Comment: Speci men Type: BLOOD SPECIMEN [facility]: [facility] Address: [address] [place] [address] Performed By: #### 3 016-3, , 1988-01 #### [facility] CLIA [id number] [address] STATES [place] M-PROTEIN LOCATION Normal [facility] Comment on above: Order Comment: Speci men Type: BLOOD SPECIMEN [facility]: [facility] Address: [address] [place] [address] Result Comment: Not Applicable. Performed By: #### 3 3, , 1988-01 #### [facility] CLIA [id number] [address] STATES [place] Protein Fractions [Interp] No definitive M protein is identified on protein electrophoresis. Normal No definitive M protein is identified on protein electrophore sis. [facility] Comment on above: Order Comment: Speci men Type: BLOOD SPECIMEN [facility]: [facility] Address: [address] [place] [address] Performed By: #### 3 -3, , 1988-01 #### [facility] CLIA [id number] [address] [place] Protein.monoclonal Elph [Mass/Vol] 0.00 g/dL Normal <=0.00 [facility] Comment on above: Order Comment: Speci men Type: BLOOD SPECIMEN [facility]: [facility] Address: [address] [place] [address] Performed By: #### 3 016-3, , 1988-01 #### [facility] CLIA [id number] [address] STATES [place] SPE STAFF REVIEW Reviewed by Je Quinn MD, Ph.D ([id number]) Normal [facility] Comment on above: Order Comment: Speci men Type: BLOOD SPECIMEN [facility] Address: [address] [place] [address] Performed By: #### 3 016-3, 29863-8, 1988-01 #### [facility] CLIA [id number] 1 [place] [address] [place] Prot SerPl-mCncon 11-05-2024 Protein [Mass/Vol] 6.5 g/dL Normal 6.3-8.0 [facility] Comment on above: Order Comment: Speci men Type: BLOOD SPECIMEN [facility]: [facility] Address: [address] [place] [address] Performed By: #### 3 016-3, 38329-0, 1988-01 #### [facility] CLIA [id number] [address] [place] [address] [place] TSH SerPl-aCncon 11-05-2024 TSH Qn 0.278 m[IU]/L Normal 0.270-4.200 [facility] Comment on above: Order Comment: Speci men Type: BLOOD SPECIMEN [facility]: [facility] Address: [address] [place] [address] Performed By: #### 3 016-3, 57141-0, 1988-01 #### [facility] CLIA [id number] [address] STATES [place] VITAMIN B1 (THIAMINE), WHOLE BLOODon 11-05-2024 Thiamine (Bld) [Moles/Vol] 259.8 nmol/L High 84.3-213.3 [facility] Comment on above: Order Comment: Speci men Type: BLOOD SPECIMEN [facility]: [facility] Address: [address] [place] [address] Result Comment: This assay measures the concentration of thiamine diphosphate (TDP), the primary active form of vitamin B1. Approximately 90 percent of vitamin B1 present in whole blood is TDP. Thiamine and thiamine monophosphate, which comprise the remaining 10 percent, are not measured. This test was developed, and its performance characteristics determined by the [facility] Department of Pathology and Laboratory Medicine. It has not been cleared or approved by the FDA. The [facility] Department of Pathology and Laboratory Medicine is regulated under CLIA as qualified to perform high-complexity testing. This test is used for clinical purposes. It should not be regarded as investigational or for research. Performed By: #### 3 016-3, 99715-8, 1988-01 #### [facility] CLIA [id number] [address] [place] [address] [place] VITAMIN B6/PYRIDOXINon 11-05 VITAMIN B6 125.7 nmol/L High 20.0-125.0 [facility] Comment on above: Order Comment: Speci men Type: BLOOD SPECIMEN [facility]ing Facility: [facility] Address: [address] [place] [address] Result Comment: INTE RPRETIVE INFORMATION: Vitamin B6 (Pyridoxal 5-Phosphate) Pyridoxal 5'-phosphate measured in a specimen collected following an 8-hour or overnight fast accurately indicates vitamin B6 nutritional status. Non-fasting specimen concentration reflects recent vitamin intake. This test was developed and its performance characteristics determined by [facility]. It has not been cleared or approved by the [place] Food and Drug Administration. This test was performed in a CLIA certified laboratory and is intended for clinical purposes. Performed By: [facility] [address] [place] [address] Animal Keeper: Jaguar Chaudhry MD, PhD CLIA Number: [id number] Performed By: #### V ITB6 #### [facility] CLIA [id number] [address] [place] [address] Vit B12 SerPl-mCncon 025 Cobalamin (Vitamin B12) [Mass/Vol] 577 pg/mL Normal 232-1245 [facility] Comment on above: Order Comment: Speci men Type: BLOOD SPECIMEN [facility]: [facility] Address: [address] [place] [address] Performed By: #### 3 016-3, 07844-1, 1988-01 #### [facility] CLIA [id number] [address] [place] [address] [place] TSH SerPl-aCncon 09-30-2024 TSH Qn 1.830 m[IU]/L Normal 0.270-4.200 [facility] Comment on above: Order Comment: Speci men Type: BLOOD SPECIMENOrdering Facility: [facility] Address: [address] [place] [address] Performed By: #### 3 016-3 ####[facility] LABCLIA [id number] [facility] [id number] [id number] [place] CNPNon 09-25-2024 CNPN Telephone (FAMWS) BHARTI AKBAR ([id number]) 1945 F NFR Date Time Provider Department 09/25/24 EMELIA LYNN [facility] During your visit today, we recorded [...] nurse to get results. MARIXA Jarvis Stephanie, RN 09/25/2024 3:15 PM Signed Patient notified of [...] (hyperlipidemia) [E78.5] 09/23/2016 Coronary artery disease involving [place] webster*09/23/2016 Fibromyalgia [M79.7] 10/02/2019 Ischemic colitis (HCC) [K55.9] 03/07/2023 06/10/2024 Segmental colitis associated with diverticulosi*11/20/2023 Angina pectoris (HCC) [I20.9] 03/07/2023 11/20/2023 Encounter Status:Closed by SHANNON ELKINS on 09/25/24 Normal [facility] Cardiology Visit Reporton Cardiology Visit Report [facility] 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 Normal [facility] 09-23-2024 [facility] BH[facility]BAR ([id number]) 1945 F NFR Date Time Provider Department 09/23/24 ARMANDO OROZCO [facility] During your visit today, we recorded the following information about you: Kika Costa LPN 09/23/2024 10:26 AM Signed Pt calling to request lab work today. She was seen on 09-19-24 by Emelia and forgot to ask. She would like labs done on Thyroid, labs regarding arthritis. Pt not feeling well whether it is arthritis or fibromyalgia. Pt has an apt in [place] today and was hoping she could do this also. Please call pt to let her know when the labs are in. MARIXA Barber Jesse PIT CLERK.FREDY 09/23/2024 1:46 PM Signed TSH placed. I [...] Diagnosis:Hypothyroidis m, acquired [E03.9] Order(s):THYROID STIMULATING HORMONE [SQTS] Order #: [id number] FUTURE Prescriptions as of 09/23/2024 - traZODone [...] (hyperlipidemia) [E78.5] 09/23/2016 Coronary artery disease involving capitan [place] webster*09/23/2016 Fibromyalgia [M79.7] 10/02/2019 Ischemic colitis (HCC) [K55.9] 03/07/2023 06/10/2024 Segmental colitis associated with diverticulosi* 3 11/20/2023 Angina pectoris (HCC) [I20.9] 03/07/2023 11/20/2023 Encounter Status:Closed by WINNIE CUNNINGHAM on 09/23/24 [facility] [facility] 09-19-2024 CNOV Office Visit (FAMPWS ) BHARTI AKBAR ([id number]) 1945 F NFR Date Time Provider Department 09/19/24 2:20 PM EMELIA LYNN During your visit today, we recorded the following information about you: Pulse Respiration Blood pressure Weight 69/minute 16/minute 140/84 55.5 kg Emelia Lynn APRN.STEAM PRESSER 09/19/2024 3:23 PM Signed This is a 78 year old female who presents today with: Patient presents with: Acute Visit: right foot swelling - injury tripped up the stairs HISTORY OF PRESENT ILLNESS: Bharti Kisha Akbar is a 78 year old female. [...] OF 2002 Lasik Surgery on both eyes ([facility]) PAST SURGICAL HISTORY OF 2010 broken neck PAST SURGICAL HISTORY OF 08/2015 Bare metal stent/ graft of heart x 1 PRQ CARDIAC STENT W/ANGIO 1 VSL 09/01/2015 Mid Lad TONSILLECTOMY PRIMARY/SECONDARY TOTAL ABDOMINAL HYSTERECT W/WO RMVL TUBE OVARY 1995 Hysterectomy, TAHBSO XCAPSL CTRC RMVL INSJ IO [...] Aunt Vanessa (more content not included)... Normal [facility] XR FOOT 3V AP/LAT/OBL RTon 0 09-19-2024 [...] bony abnormality. Severe first MTP joint osteoarthritis. Metal Buggy Operator: PSCB Transcribe Date/Time: Sep 22 2024 7:23P Dictated by : JAGUAR BRYAN MD This examination was interpreted and the report reviewed and electronically signed by: JAGUAR BRYAN MD on Sep 22 2024 7:24PM EST [id number] Normal [facility] MR/BMS.BVJohn 08-30-2024 MR/BMS.S [facility] Vascular Surgery [address] [place] [address] OFFICE VISIT Date of Service: 08/30/24 MR#: [id number] Acct: [id number] Name: BHARTI AKBAR Rep #: [id number] : 1945 Provider: SARAH Valdivia Age/Sex: 78/F Location: [facility] Status: Signed Intake Vital Signs 03/15/24 14:34 [...] you fallen in the past year?: Yes [facility] Medical History Gait disturbance Fatigue Lung nodule, [...] artery ( 04/19/21) Atherosclerotic heart disease of [place] coronary artery without angina pectoris Vision problem Thyroid dysfunction Osteoarthritis Hearing problem Chronic headache GI problem Cataracts, bilateral Seasonal allergies 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 Normal [facility] Carotid Duplex Ultrasoundon 08-12-2024 Carotid Duplex Ultrasound [facility] [address] [place] [address] Carotid Duplex Ultrasound 08/12/24 1314 MR#: [id number] Acct: [id number] Name: BHARTI AKBAR Rep #: [id number] : 1945 78 From: Gregory Benjamin MD Attending Dr: Minoo Morillo, PA Status: REG CLI Ordering Dr: Minoo Morillo Date: 08/12/24 Location: CVS Sex: F C Admitted: Reason For Study: [...] the left vertebral artery. Procedure Carotid Duplex 65164. This is a Carotid Duplex examination using B-mode, color flow and specral Doppler. Exam performed in department. VL/Carotid Duplex Ultrasound Interpretation Summary Moderate (50-69%) stenosis right extracranial internal carotid. Mild (<50%) stenosis left extracranial internal carotid. Patent and antegrade vertebrals bilaterally. Ordering Physician: Minoo Morillo Referring Physician: MD Armando Orozco Performed By: Portia Benjamin T 08/14/24 1504 Date Gregory Benjamin MD CC: SARAH Valdivia; Dr. Armando Orozco MD Date Dictated: 08/12/244 Date Transcribed: 08/14/241503 Metal Buggy Operator: Signed [facility] 06-10-2024 [facility] Office Visit (FAMPWS ) RAFFYBHARTI ([id number]) 1945 F NFR Date Time Provider Department [...] Vega Granger - Neurology Dr. Quispe - [facility]/Cardiology. Dr. Tyler Aldrich - ENT Urology - Dr. Alma Lakhani [facility] Follows with [facility]. Follows with Dentist in [place], unable to recall name. Follows with Fadia Sitka in [place]. Medical/Family history review Reviewed and updated problem [...] seemed t (more content not included)... Normal [facility] Jean Claude 04-04-2024 FREDYN Telephone (FAMPWS) RAFFYBHARTI ([id number]) 1945 F NFR Date Time Provider Department 04/04/24 ARMANDO OROZCO During your visit today, we recorded the following information about you: Kisha Martinez RN 04/04/2024 9:54 AM Signed Patient phoned to report the case planner, Mallorie ([phone] ext: [phone]) never received the FMLA letter that was suppose to be sent to her on 03-20-24. Patient reports it was suppose to be e-faxed to Mallorie @ fax # [phone]. Patient asking Ayala Kapoor, to please send the FMLA letter (extending her leave past 03-25-24), and send patient a copy. Please phone patient with any questions and an update: [phone] Emelia Lynn APRN.CNP 04/04/2024 10:27 AM Signed Attempted to call Mallorie back with no answer, LM to call back. Would like more information for what is needed in the letter. Patient has used her full amount of FMLA. FLOR Umaña Ashley, APRN.CNP 04/08/2024 8:14 AM Signed Never heard [...] - Intolerance Comments: radha Hoskins Date Reviewed: 03/20/2024 Reviewed by: Kim Sena [...] (hyperlipidemia) [E78.5] 09/23/2016 Coronary artery disease involving [place] webster*09/23/2016 Fibromyalgia [M79.7] 10/02/2019 Ischemic colitis (HCC) [K55.9] 03/07/2023 Segmental colitis associated with diverticulosi*11/20/2023 Angina pectoris (HCC) [I20.9] 03/07/2023 11/20/2023 Letter Text Encounter N (more content not included)... Normal [facility] CNPNon 03-22-2024 CNPN Telephone (FAMPWS) RAFFYBHARTI ([id number]) 1945 F NFR Date Time Provider Department 03/22/24 EMELIA LYNN During your visit today, we [...] (hyperlipidemia) [E78.5] 09/23/2016 Coronary artery disease involving [place] webster*09/23/2016 Fibromyalgia [M79.7] 10/02/2019 Ischemic colitis (HCC) [K55.9] 03/07/2023 Segmental colitis associated with diverticulosi*11/20/2023 Angina pectoris (HCC) [I20.9] 03/07/2023 11/20/2023 Encounter Status:Closed by IKKA COSTA on 03/22/24 [facility] Jean Claude 03-21-2024 FREDYN Telephone ([facility]) BHARTI AKBAR ([id number]) 1945 F NFR Date Time Provider Department 03/21/24 EMELIA LYNN During your visit today, we recorded the following information about you: Emelia Lynn APRN.FREDY 03/21/2024 3:58 PM Signed Can you please [...] urine culture results. Thank you. Emelia Lynn APRN.Tahria Lan MA 03/21/2024 4:41 PM Signed Message [...] - Intolerance Comments: radha Hoskins Date Reviewed: 03/20/2024 Reviewed by: Kim Sena [...] (hyperlipidemia) [E78.5] 09/23/2016 Coronary artery disease involving [place] webster*09/23/2016 Fibromyalgia [M79.7] 10/02/2019 Ischemic colitis (HCC) [K55.9] 03/07/2023 Segmental colitis associated with diverticulosi* 3 11/20/2023 Angina pectoris (HCC) [I20.9] 03/07/2023 11/20/2023 Encounter Status:Closed by EMELIA LYNN on 03/22/24 Normal [facility] Bacteria Ur Culton 4 Bacteria identified Cx Nom (U) ORGANISM ID: 1 <10,000 CFU/ml Normal urogenital neo Normal [facility] Comment on above: Performed By: #### 3 016-3, 94026-6, 1988-01 #### [facility] CLIA [id number] [address] [place] [address] [place] CBC W Auto Differential pane l (Bld)on 03-20-2024 Basophils (Bld) [#/Vol] NINF [facility] Basophils/100 WBC (Bld) 0.4 % [facility] Differential cell count method Nom (Bld) Auto [facility] Eosinophils (Bld) [#/Vol] 0.06 10*3/uL [facility] Eosinophils/100 WBC (Bld) 1.3 % [facility] Erythrocyte distribution width (RBC) [Ratio] 12.4 % 11.5 - 15.0 % [facility] Hematocrit (Bld) [Volume fraction] 41.9 % 36.0 - 46.0 % [facility] Hemoglobin (Bld) [Mass/Vol] 14.3 g/dL 11.5 - 15.5 g/dL [facility] Immature granulocytes (Bld) [#/Vol] [facility] Immature granulocytes/100 WBC (Bld) 0.2 % [facility] Interpretation and review of laboratory results Abnormal [facility] Lymphocytes (Bld) [#/Vol] 1.20 10*3/uL [facility] Lymphocytes/100 WBC (Bld) 25.8 % [facility] MCH (RBC) [Entitic mass] 30.4 pg 26.0 - 34.0 pg [facility] MCHC (RBC) [Mass/Vol] 34.1 g/dL 30.5 - 36.0 g/dL [facility] MCV (RBC) [Entitic vol] 89.1 fL 80.0 - 100.0 fL [facility] Monocytes (Bld) [#/Vol] 0.35 10*3/uL [facility] Monocytes/100 WBC (Bld) 7.5 % [facility] Neutrophils (Bld) [#/Vol] 3.01 10*3/uL [facility] Neutrophils/100 WBC (Bld) 64.8 % [facility] Nucleated RBC (Bld) [#/Vol] [facility] Nucleated RBC/100 WBC (Bld) [Ratio] 0.0 % /100 WBC [facility] Platelet mean volume (Bld) [Entitic vol] 8.6 fL Low 9.0 - 12.7 fL [facility] Platelets (Bld) [#/Vol] 275 10*3/uL [facility] RBC (Bld) [#/Vol] 4.70 10*6/uL 3.90 - 5.2 0 m/uL [facility] WBC (Bld) [#/Vol] 4.65 10*3/uL [facility] Basophils (Bld) [#/Vol] 10*3/uL Normal <0.11 [facility] Comment on above: Order Comment: Speci men Type: BLOOD SPECIMEN Ordering Facility: [facility] Address: [address] [place] [address] Performed By: #### 3 016-3, , 1988-01 #### [facility] CLIA [id number] [address] [place] [address] [place] Basophils/100 WBC (Bld) 0.4 % Normal [facility] Comment on above: Order Comment: Speci men Type: BLOOD SPECIMEN Ordering Facility: [facility] Address: [address] [place] [address] Performed By: #### 3 0163, , 1988-01 #### [facility] CLIA [id number] [address] [place] [address] [place] Differential cell count method Nom (Bld) Auto Normal [facility] Comment on above: Order Comment: Speci men Type: BLOOD SPECIMEN Ordering Facility: [facility] Address: [address] [place] [address] Performed By: #### 3 0163, , 1988-01 #### [facility] CLIA [id number] [address] [place] [address] [place] Eosinophils (Bld) [#/Vol] 0.06 10*3/uL Normal <0.46 [facility] Comment on above: Order Comment: Speci men Type: BLOOD SPECIMEN Ordering Facility: [facility] Address: [address] [place] [address] Performed By: #### 3 016-3, , 1988-01 #### [facility] CLIA [id number] [address] [place] [address] [place] Eosinophils/100 WBC (Bld) 1.3 % Normal [facility] Comment on above: Order Comment: Speci men Type: BLOOD SPECIMEN Ordering Facility: [facility] Address: [address] [place] [address] Performed By: #### 3 , 1988-01 #### [facility] CLIA [id number] [address] [place] Erythrocyte distribution width (RBC) [Ratio] 12.4 % Normal 11.5-15.0 [facility] Comment on above: Order Comment: Speci men Type: BLOOD SPECIMEN Ordering Facility: [facility] Address: [address] [place] [address] Performed By: #### 3 016-3, , 1988-01 #### [facility] CLIA [id number] [address] [place] [address] [place] Hematocrit (Bld) [Volume fraction] 41.9 % Normal 36.0-46.0 [facility] Comment on above: Order Comment: Speci men Type: BLOOD SPECIMEN Ordering Facility: [facility] Address: [address] [place] [address] Performed By: #### 3 3, 1988-01 #### [facility] CLIA [id number] [address] [place] Hemoglobin (Bld) [Mass/Vol] 14.3 g/dL Normal 11.5-15.5 [facility] Comment on above: Order Comment: Speci men Type: BLOOD SPECIMEN Ordering Facility: [facility] Address: [address] [place] [address] Performed By: #### 3 016-3, , 1988-01 #### [facility] CLIA [id number] [address] [place] [address] [place] Immature granulocytes (Bld) [#/Vol] 10*3/uL Normal <0.10 [facility] Comment on above: Order Comment: Speci men Type: BLOOD SPECIMEN Ordering Facility: [facility] Address: [address] [place] [address] Performed By: #### 3 016-3, , 1988-01 #### [facility] CLIA [id number] [address] [place] Immature granulocytes/100 WBC (Bld) 0.2 % Normal [facility] Comment on above: Order Comment: Speci men Type: BLOOD SPECIMEN Ordering Facility: [facility] Address: [address] [place] [address] Performed By: #### 3 016-3, , 1988-01 #### [facility] CLIA [id number] [address] [place] [address] [place] Lymphocytes (Bld) [#/Vol] 1.20 10*3/uL Normal 1.00-4.00 [facility] Comment on above: Order Comment: Speci men Type: BLOOD SPECIMEN Ordering Facility: [facility] Address: [address] [place] [address] Performed By: #### 3 016-3, , 1988-01 #### [facility] CLIA [id number] [address] STATES OF [facility] Lymphocytes/100 WBC (Bld) 25.8 % Normal [facility] Comment on above: Order Comment: Speci men Type: BLOOD SPECIMEN Ordering Facility: [facility] Address: [address] [place] [address] Performed By: #### 3 016-3, , 1988-01 #### [facility] CLIA [id number] [address] [place] MCH (RBC) [Entitic mass] 30.4 pg Normal 26.0-34.0 [facility] Comment on above: Order Comment: Speci men Type: BLOOD SPECIMEN Ordering Facility: [facility] Address: [address] [place] [address] Performed By: #### 3 016-3, , 1988-01 #### [facility] CLIA [id number] [address] [place] MCHC (RBC) [Mass/Vol] 34.1 g/dL Normal 30.5-36.0 [facility] Comment on above: Order Comment: Speci men Type: BLOOD SPECIMEN Ordering Facility: [facility] Address: [address] [place] [address] Performed By: #### 3 016-3, , 1988-01 #### [facility] CLIA [id number] [address] [place] MCV (RBC) [Entitic vol] 89.1 fL Normal 80.0-100.0 [facility] Comment on above: Order Comment: Speci men Type: BLOOD SPECIMEN Ordering Facility: [facility] Address: [address] [place] [address] Performed By: #### 3 016-3, , 1988-01 #### [facility] CLIA [id number] [address] [place] Monocytes (Bld) [#/Vol] 0.35 10*3/uL Normal <0.87 [facility] Comment on above: Order Comment: Speci men Type: BLOOD SPECIMEN Ordering Facility: [facility] Address: [address] [place] [address] Performed By: #### 3 3, , 1988-01 #### [facility] CLIA [id number] [address] [place] Monocytes/100 WBC (Bld) 7.5 % Normal [facility] Comment on above: Order Comment: Speci men Type: BLOOD SPECIMEN Ordering Facility: [facility] Address: [address] [place] [address] Performed By: #### 3 0163, 1988-01 #### [facility] CLIA [id number] [address] [place] Neutrophils (Bld) [#/Vol] 3.01 10*3/uL Normal 1.45-7.50 [facility] Comment on above: Order Comment: Speci men Type: BLOOD SPECIMEN Ordering Facility: [facility] Address: [facility] [place] [address] Performed By: #### 3 016-3, , 1988-01 #### [facility] CLIA [id number] [address] [place] Neutrophils/100 WBC (Bld) 64.8 % Normal [facility] Comment on above: Order Comment: Speci men Type: BLOOD SPECIMEN Ordering Facility: [facility] Address: [address] [place] [address] Performed By: #### 3 016-3, , 1988-01 #### [facility] CLIA [id number] [address] [place] [address] [place] Nucleated RBC (Bld) [#/Vol] 10*3/uL Normal <0.01 [facility] Comment on above: Order Comment: Speci men Type: BLOOD SPECIMEN Ordering Facility: [facility] Address: [address] [place] [address] Performed By: #### 3 016-3, , 1988-01 #### [facility] CLIA [id number] [address] [place] Nucleated RBC/100 WBC (Bld) [Ratio] 0.0 /100 WBC Normal [facility] Comment on above: Order Comment: Speci men Type: BLOOD SPECIMEN Ordering Facility: [facility] Address: [address] [place] [address] Performed By: #### 3 016-3, , 1988-01 #### [facility] CLIA [id number] [address] [place] Platelet mean volume (Bld) [Entitic vol] 8.6 fL Low 9.0-12.7 [facility] Comment on above: Order Comment: Speci men Type: BLOOD SPECIMEN Ordering Facility: [facility] Address: [address] [place] [address] Performed By: #### 3 016-3, , 1988-01 #### [facility] CLIA [id number] [address] [place] [address] [place] Platelets (Bld) [#/Vol] 275 10*3/uL Normal 150-400 [facility] Comment on above: Order Comment: Speci men Type: BLOOD SPECIMEN Ordering Facility: [facility] Address: [address] [place] [id number] Performed By: #### 3 016-3, 11553-4, 1988-01 #### [facility] CLIA [id number] [address] OF [facility] RBC (Bld) [#/Vol] 4.70 10*6/uL Normal 3.90-5.[address] [facility] Comment on above: Order Comment: Speci men Type: BLOOD SPECIMEN Ordering Facility: [facility] Address: [address] [place] [address] Performed By: #### 3 016-3, 43581-4, 1988-01 #### [facility] CLIA [id number] [address] [place] WBC (Bld) [#/Vol] 4.65 10*3/uL Normal 3.70-11.[address] [facility] Comment on above: Order Comment: Speci men Type: BLOOD SPECIMEN Ordering Facility: [facility] Address: [address] [place], [place] [address] Performed By: #### 3 016-3, 12559-5, 1988-01 #### [facility] CLIA [id number] [address] OF [facility] CNOVon 03-20-2024 [facility]OV [facility] ELIZA AKBARA Kisha ([id number]) 1945 F NFR Date Time Provider Department 03/20/24 10:40 AM [facility] During your visit today, we recorded the following information about you: Pulse Respiration Blood pressure Weight 78/minute 16/minute 150/82 53.1 kg Emelia Lynn APRN.STEAM PRESSER 03/20/2024 12:19 PM Signed This is a [...] Disease. Diagnosed with dementia, was Following with [facility] neurology, however trying to get a second opinion. Has concerns for Parkinson's disease. Ongoing issues with gait, completing PT. 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 Memory has been stable, [...] - Both Eyes 11/17/2014 C2 cervical fracture ([facility]) CAD (coronary artery disease) 2015 heart stent x 1/ bare metal CAD (coronary artery disease) Chronic periscapular pain on left side 07/19/2016 Closed fracture of cervical spine ([facility]) 11/03/2010 DEPRESSIVE DISORDER NEC 01/23/2007 Depressive disorder, [...] OF 2002 Lasik Surgery on both eyes ([facility]) PAST SURGICAL HISTORY OF 2010 broken neck [...] by mo (more content not included)... Normal [facility] Comprehensive metabolic 2000 panelon 03-20-2024 Albumin [Mass/Vol] 4.2 g/dL Normal 3.9-4.9 [facility] Comment on above: Order Comment: Speci men Type: BLOOD SPECIMENOrdering Facility: [facility] Address: [address] [place] [address] Performed By: #### 3 024-7, 56286-6, 6-3 ####[facility] [id number] [place] [address] [place] ALP [Catalytic activity/Vol] 101 U/L Normal 34-123 [facility] Comment on above: Order Comment: Speci men Type: BLOOD SPECIMENOrdering Facility: [facility] Address: [address] [place] [address] Performed By: #### 3 024-7, 25526-0, 6-3 ####[facility] [id number] [place] [address] [place] ALT [Catalytic activity/Vol] 20 U/L Normal 7-38 [facility] Comment on above: Order Comment: Speci men Type: BLOOD SPECIMENOrdering Facility: [facility] Address: [address] [place] [address] Performed By: #### 3 024-7, 87396-9, 6-3 ####[facility] [id number] [place] [address] [place] Anion gap [Moles/Vol] 11 mmol/L Normal 8-15 [facility] Comment on above: Order Comment: Speci men Type: BLOOD SPECIMENOrdering Facility: [facility] Address: [address] [place] [address] Performed By: #### 3 024-7, 69891-0, 6-3 ####[facility] [id number] [place] [address] [place] AST [Catalytic activity/Vol] 28 U/L Normal 13-35 [facility] Comment on above: Order Comment: Speci men Type: BLOOD SPECIMENOrdering Facility: [facility] Address: [address] [place] [address] Performed By: #### 3 024-7, 65384-8, 6-3 ####[facility] [id number] [place] [address] [place] Bilirubin [Mass/Vol] 0.5 mg/dL Normal 0.2-1.3 [facility] Comment on above: Order Comment: Speci men Type: BLOOD SPECIMENOrdering Facility: [facility] Address: [address] [place] [address] Performed By: #### 3 024-7, 68232-3, 3015-3 ####[facility] [id number] [place] [address] [place] Calcium [Mass/Vol] 9.6 mg/dL Normal 8.5-10.2 [facility] Comment on above: Order Comment: Speci men Type: BLOOD SPECIMENOrdering Facility: [facility] Address: [address] [place] [address] Performed By: #### 3 024-7, 51541-7, 3015-3 ####[facility] [id number] [place] [address] [place] Chloride [Moles/Vol] 103 mmol/L Normal 98-107 [facility] Comment on above: Order Comment: Speci men Type: BLOOD SPECIMENOrdering Facility: [facility] Address: [address] [place] [address] Performed By: #### 3 024-7, 53208-6, 3016-3 ####[facility] [id number] [place] [address] [place] CO2 [Moles/Vol] 27 mmol/L Normal 22-30 [facility] Comment on above: Order Comment: Speci men Type: BLOOD SPECIMENOrdering Facility: [facility] Address: [address] [place] [address] Performed By: #### 3 024-7, 35150-3, 3015-11 ####[facility] [id number] [place] [address] [place] Creatinine [Mass/Vol] 0.88 mg/dL Normal 0.58-0.96 [facility] Comment on above: Order Comment: Speci men Type: BLOOD SPECIMENOrdering Facility: [facility] Address: [address] [place] [address] Performed By: #### 3 024-7, , 3015-11 ####[facility] [id number] [place] [address] [place] Creatinine and Glomerular filtration rate.predicted panel (S/P/Bld) 67 mL/min/1.73m??? Normal >=60 [facility] Comment on above: Order Comment: Speci men Type: BLOOD SPECIMENOrdering Facility: [facility] Address: [address] [place] [address] Result Comment: Selina mated Glomerular Filtration Rate [...] actual GFR. Performed By: #### 3 024-7, 06320-0, 3015-11 ####[facility] LABIA [id number] [place] [id number] [place] Glucose [Mass/Vol] 96 mg/dL Normal 74-99 [facility] Comment on above: Order Comment: Speci men Type: BLOOD SPECIMENOrdering Facility: [facility] Address: [address] [place] [address] Result Comment: The [place] Diabetes Association (ADA) provides guidance for cutoff [...] Standards of Medical Care in Diabetes 2016, [place] [employer]. Diabetes Care. 2016.39(Suppl 1). Performed By: #### 3 024-7, 13847-2, 6-3 ####[facility] LABCLIA [id number] [place] [address] [place] Potassium [Moles/Vol] 4.2 mmol/L Normal 3.7-5.1 [facility] Comment on above: Order Comment: Speci men Type: BLOOD SPECIMENOrdering Facility: [facility] Address: [address] [place] [address] Performed By: #### 3 024-7, 44731-3, 6-3 ####[facility] LABCLIA [id number] [place] [id number] [place] Protein [Mass/Vol] 7.0 g/dL Normal 6.3-8.0 [facility] Comment on above: Order Comment: Speci men Type: BLOOD SPECIMENOrdering Facility: [facility] Address: [address] [place] [address] Performed By: #### 3 024-7, 35171-5, 3016-3 ####[facility] LABCLIA [id number] [place] [id number] [place] Sodium [Moles/Vol] 141 mmol/L Normal 136-144 [facility] Comment on above: Order Comment: Speci men Type: BLOOD SPECIMENOrdering Facility: [facility] Address: [address] [place] [address] Performed By: #### 3 024-7, 69679-2, 3016-3 ####[facility] LABCLIA [id number] [place] [address] [place] Urea nitrogen [Mass/Vol] 16 mg/dL Normal 7-21 [facility] Comment on above: Order Comment: Speci men Type: BLOOD SPECIMENOrdering Facility: [facility] Address: [address] [place] [address] Performed By: #### 3 024-7, 78698-2, 3016-3 ####[facility] LABCLIA [id number] [place] [address] [place] T4 Free SerPl-mCncon 024 Free T4 [Mass/Vol] 1.5 ng/dL Normal 0.9-1.7 [facility] Comment on above: Order Comment: Speci men Type: BLOOD SPECIMENOrdering Facility: [facility] Address: [address] [place] [address] Performed By: #### 3 024-7, 04877-1, 3016-3 ####[facility] LABIA [id number] [place] [address] [place] TSH SerPl-aCncon 03-20-2024 TSH Qn 3.160 m[IU]/L Normal 0.270-4.200 [facility] Comment on above: Order Comment: Speci men Type: BLOOD SPECIMENOrdering Facility: [facility] Address: [address] [place] [address] Performed By: #### 3 024-7, 93088-4, 3016-3 ####[facility] LABCLIA [id number] [address] [place] [address] [place] UA DIP, URINE (POC)on 2023 BILIRUBIN UA (POCT) Negative Negative [facility] CLARITY UA (POCT) Clear [facility] COLOR UA (POCT) Yellow [facility] GLUCOSE UA (POCT) Negative Negative mg/dL [facility] Hemoglobin Ql (U) Small Abnormal Negative [facility] Interpretation and review of laboratory results Abnormal [facility] KETONE UA (POCT) Negative Negative mg/dL [facility] LEUKOCYTES UA (POCT) Negative [facility] NITRITE UA (POCT) Negative Negative [facility] PH UA (POCT) 7.0 4.5 - 8.0 [facility] Protein Ql (U) Negative Negative mg/dL [facility] SPECIFIC GRAVITY UA (POCT) 1.025 1.005 - 1.030 [facility] UROBILINOGEN UA (POCT) 0.2 Radha l E.U./dL [facility] Location:[address], [place], [place], [id number] [place] [address] POINT OF CARE [facility]20[facility] BHARTI AKBAR ([id number]) 1945 F NFR Date Time Provider Department 02/27/24 [facility] LYNN [facility] During your visit today, we recorded the following information about you: Kika Costa LPN 02/27/2024 3:20 PM Signed Pt called and wanted you to know she is working on finding a Neurologist for a 2nd opinion. She checked with [facility] and the doctor there is booking out to December 2024. She will get back to you with a name so we can send referral and supporting information. MARIXA Barber Ashley, APRN.STEAM PRESSER 02/28/2024 4:29 PM Signed Noted Emelia Lynn APRN.Shantal Christina LPN 03/05/2024 10:57 AM Signed Patient calling back has name of Neurologist she is scheduled to see in June. Dr Verónica Wallace [facility], information phone number is [phone] and comes to [place] once monthly phone number for [place] office is [phone]. She did not have fax number to get referral sent to that Tahira Hanson MA 03/05/2024 11:34 AM Addendum Office note, med list, referral, demo, insurance cards faxed to [place] office at [phone]. Called to get fax number. [employer] Dump Driver stated that Dr. Wallace only specializes in [...] (hyperlipidemia) [E78.5] 09/23/2016 Coronary artery disease involving capitan grande band webster*09/23/2016 Fibromyalgia [M79.7] 10/02/2019 Ischemic col (more content not included)... Normal [facility] 02-16-2024 [facility] BHARTI AKBAR ([id number]) 1945 F NFR Date Time Provider Department 02/16/24 EMELIA LYNN [facility] During your visit today, we recorded the following information about you: Emelia Lynn APRN.CNP 02/16/2024 12:02 PM Signed Can you please [...] VICODIN (HYDROCODONE-ACETAMINOP HE*11/23/2010 5 - Intolerance Comments: Janetingradha Date Reviewed: 02/14/2024 Reviewed by: Kim Sena [...] [E04.2] 03/11 (more content not included)... Normal [facility] Bacteria Ur Culton 4 Bacteria identified Cx Nom (U) ORGANISM ID: 1 10,000 -<50,000 CFU/ml Normal urogenital neo Normal [facility] Comment on above: Performed By: #### 6 30-4 ####[facility] LABCLIA [id number] [address] OF [facility] CNOVon 02-14-2024 CNOV Office Visit [facility] BHARTI AKBAR ([id number]) 1945 F NFR Date Time Provider Department 02/14/24 1:00 PM EMELIA LYNN [facility] During your visit today, we recorded the following information about you: Pulse Respiration Blood pressure Weight 79/minute 16/minute 138/80 52.2 kg Emelia Lynn APRN.STEAM PRESSER 02/14/2024 2:54 PM Signed This is a [...] pain, palpitations, dizziness, or edema. Follows with [facility]. Added on amlodipine 2.5 mg [...] - Both Eyes 11/17/2014 C2 cervical fracture ([facility]) CAD (coronary artery disease) 2014 heart stent x 1/ bare metal CAD (coronary artery disease) Chronic periscapular pain on left side 07/19/2016 Closed fracture of cervical spine ([facility]) 11/03/2010 DEPRESSIVE DISORDER NEC 01/23/2007 Depressive disorder, [...] OF 2002 Lasik Surgery on both eyes ([facility]) PAST SURGICAL HISTORY OF 2010 broken neck [...] by mouth (more content not included)... Normal [facility] UA DIP, URINE (POC)on 2023 BILIRUBIN UA (POCT) Negative Negative [facility] CLARITY UA (POCT) Clear [facility] COLOR UA (POCT) Yellow [facility] GLUCOSE UA (POCT) Negative Negative mg/dL [facility] Hemoglobin Ql (U) Small Abnormal Negative [facility] Interpretation and review of laboratory results Abnormal [facility] KETONE UA (POCT) Negative Negative mg/dL [facility] LEUKOCYTES UA (POCT) Negative Negative [facility] NITRITE UA (POCT) Negative Negative [facility] PH UA (POCT) 6.5 4.5 - 8.0 [facility] Protein Ql (U) Negative Negative mg/dL [facility] SPECIFIC GRAVITY UA (POCT) 1.020 1.005 - 1.030 [facility] UROBILINOGEN UA (POCT) 0.2 Radha l E.U./dL [facility] Location:[address], [place], [place], [id number] [place] [address] POINT OF CARE [facility] Urinalysis complete panel (U )on 02-14-2024 Bacteria LM.HPF (Urine sed) [#/Area] Negative Negative /HPF [facility] Bilirubin Ql (U) Negative Negative [facility] Clarity (Unsp spec) Clear Clear [facility] Color (U) Yellow Yellow [facility] Epithelial cells LM.HPF (Urine sed) [#/Area] None Seen /HPF [facility] Glucose Test strip (U) [Mass/Vol] Negative Negative [facility] Hemoglobin Ql (U) Negative Negative [facility] Hyaline casts (Urine sed) [#/Area] 1-3 /LPF Abnormal 0 /LPF [facility] Interpretation and review of laboratory results Abnormal [facility] Ketones Ql (U) Negative Negative [facility] Leukocyte esterase Test strip Ql (U) Negative Negative [facility] Nitrite Ql (U) Negative Negative [facility] pH (U) 6.5 [pH] NINF - 8.5 [facility] Protein (U) [Mass/Vol] Negative Negative Cl [facility] RBC LM.HPF (Urine sed) [#/Area] 0-2 /HPF 0-2 /HPF [facility] Specific gravity (U) [Rel density] 1.015 1.005 - 1.030 [facility] Urobilinogen Ql (U) 0.2 EU/dL 0.2-1.0 EU/dL [facility] WBC LM.HPF (Urine sed) [#/Area] 0-5 /HPF 0-5 /HPF [facility] This test was develo ped and its performance characteristics determined by [facility]'s [facility] ([facility]). It has not been cleared or approved by the FDA. [facility] is regulated under CLIA as qualified to perform high-complexity testing. This test is used for clinical purposes. It should not be regarded as investigational or for research. [facility] Bacteria LM.HPF (Urine sed) [#/Area] Negative Normal Negative [facility] Comment on above: Order Comment: Speci men Type: BLOOD SPECIMEN [facility] Address: [address] [place] [address] Performed By: #### 3 -, 1988-01 #### [employer] [facility] CLIA [id number] [address] [place] [address] [place] Bilirubin Ql (U) Negative Normal Negative [facility] Comment on above: Order Comment: Speci men Type: BLOOD SPECIMEN [facility] Facility: [facility] Address: [address] [place] [address] Performed By: #### 3 -, 1988-01 #### [employer] [facility] CLIA [id number] [address] [place] [address] [place] Clarity (Unsp spec) Clear Normal Clear [facility] Comment on above: Order Comment: Speci men Type: BLOOD SPECIMEN [facility] Facility: [facility] Address: [address] [place] [address] Performed By: #### 3 016-3, , 1988-01 #### [employer] [facility] CLIA [id number] [address] [place] Color (U) Yellow Normal Yellow [facility] Comment on above: Order Comment: Speci men Type: BLOOD SPECIMEN [facility]: [facility] Address: [address] [place] [address] Performed By: #### 3 016-3, , 1988-01 #### [facility] CLIA [id number] [address] Epithelial cells LM.HPF (Urine sed) [#/Area] None Seen Normal [facility] Comment on above: Order Comment: Speci men Type: BLOOD SPECIMEN [facility]: [facility] Address: [address] [place] [address] Performed By: #### 3 0163, , 1988-01 #### [facility] CLIA [id number] [address] Glucose Test strip (U) [Mass/Vol] Negative Normal Negative [facility] Comment on above: Order Comment: Speci men Type: BLOOD SPECIMEN [facility]: [facility] Address: [address] [place] [address] Performed By: #### 3 3, , 1988-01 #### [facility] CLIA [id number] [address] [place] Hemoglobin Ql (U) Negative Normal Negative [facility] Comment on above: Order Comment: Speci men Type: BLOOD SPECIMEN [facility]: [facility] Address: [address] [place] [address] Performed By: #### 3 0163, , 1988-01 #### [facility] CLIA [id number] [address] [place] Hyaline casts (Urine sed) [#/Area] 1-3 /LPF Abnormal 0 /LPF [facility] Comment on above: Order Comment: Speci men Type: BLOOD SPECIMEN [facility]: [facility] Address: [address] [place] [address] Performed By: #### 3 016-3, , 1988-01 #### [facility] CLIA [id number] [address] [place] [address] [place] Ketones Ql (U) Negative Normal Negative [facility] Comment on above: Order Comment: Speci men Type: BLOOD SPECIMEN [facility]: [facility] Address: [address] [place] [address] Performed By: #### 3 016-3, , 1988-01 #### [facility] CLIA [id number] [address] [place] [address] [place] Leukocyte esterase Test strip Ql (U) Negative Normal Negative [facility] Comment on above: Order Comment: Speci men Type: BLOOD SPECIMEN [facility]: [facility] Address: [address] [place] [address] Performed By: #### 3 016-3, , 1988-01 #### [facility] CLIA [id number] [address] [place] [address] [place] Nitrite Ql (U) Negative Normal Negative [facility] Comment on above: Order Comment: Speci men Type: BLOOD SPECIMEN [facility]: [facility] Address: [address] [place] [address] Performed By: #### 3 3, , 1988-01 #### [facility] CLIA [id number] [address] [place] [address] [place] pH (U) 6.5 [pH] Normal <8.5 [facility] Comment on above: Order Comment: Speci men Type: BLOOD SPECIMEN [facility]: [facility] Address: [address] [place] [address] Performed By: #### 3 016-3, , 1988-01 #### [facility] CLIA [id number] [address] [place] [address] [place] Protein (U) [Mass/Vol] Negative Normal Negative [facility] Comment on above: Order Comment: Speci men Type: BLOOD SPECIMEN [facility]: [facility] Address: [address] [place] [address] Performed By: #### 3 016-3, 1988-01 #### [facility] CLIA [id number] [address] RBC LM.HPF (Urine sed) [#/Area] 0-2 /HPF Normal 0-2 /HPF [facility] Comment on above: Order Comment: Speci men Type: BLOOD SPECIMEN [facility]: [facility] Address: [address] [place] [address] Performed By: #### 3 016-3, 1988-01 #### [facility] CLIA [id number] [address] [place] Specific gravity (U) [Rel density] 1.015 Normal 1.005-1.030 [facility] Comment on above: Order Comment: Speci men Type: BLOOD SPECIMEN [facility]: [facility] Address: [address] [place] [address] Performed By: #### 3 3, 1988-01 #### [employer] [facility] CLIA [id number] [address] Urobilinogen Ql (U) 0.2 EU/dL Normal 0.2-1.0 EU/dL [facility] Comment on above: Order Comment: Speci men Type: BLOOD SPECIMEN [facility] Facility: [facility] Address: [address] [place] [address] Performed By: #### 3 3, 1988-01 #### [facility] CLIA [id number] [address] WBC LM.HPF (Urine sed) [#/Area] 0-5 /HPF Normal 0-5 /HPF [facility] Comment on above: Order Comment: Speci men Type: BLOOD SPECIMEN [facility]ing [facility]: [facility] Address: [address] [place] [address] Performed By: #### 3 016-3, 1988-01 #### [facility] CLIA [id number] [address] Jean Claude 02-12-2024 CNPN Telephone (NEMJOSEFA) RAFFYBHARTI ([id number]) 1945 F NFR Date Time Provider Department 02/12/24 VEGA GRANGER JR During your visit today, we recorded the following information about you: Sue Costa LPN 02/12/2024 2:48 PM Signed Faxed signed Rx Physical Therapy to [facility] 02/12/2024. Sue Costa LPN. Allergies As of [...] - Intolerance Comments: radha Hoskins Date Reviewed: 01/12/2024 Reviewed by: Vega Granger [...] (hyperlipidemia) [E78.5] 09/23/2016 Coronary artery disease involving capitan grande band webster*09/23/2016 Fibromyalgia [M79.7] 10/02/2019 Ischemic colitis (HCC) [K55.9] 03/07/2023 Segmental colitis associated with diverticulosi*11/20/2023 Angina pectoris (HCC) [I20.9] 03/07/2023 11/20/2023 Encounter Status:Closed by SUE COSTA on 02/12/24 Normal [facility] Basophil percentageOrdered B y: Tahira Meadows on 01-06-2024 Basophil percentage 12.9 g/dL 12.0-15.0 [facility] Basophil percentage 101 mg/dL 74-106 [facility] Basophil percentage 142 mmol/L 136-145 [facility] Basophil percentage 3.6 mmol/L 3.5-5.1 [facility] Basophil percentage 111 mmol/L 98-107 [facility] Basophils (Bld) [#/Vol] 6.0 10*3/uL 4.4-11.0 [facility] Determination of erythrocyte mean corpuscular volume (MCV)Ordered By: Tahira Meadows on 01-06-2024 MCV (RBC) [Entitic vol] 85.8 fL 81-99 [facility] Erythrocyte distribution wid th ratioOrdered By: Tahira Meadows on 01-06-2024 Erythrocyte distribution width (RBC) [Ratio] 11.6 % 11.6-14.6 [facility] Erythrocyte distribution wid th standard deviationOrdered By: Tahira Meadows on 01-06-2024 Erythrocyte distribution width (RBC) [Entitic vol] 36.2 fL 35.1-43.9 [facility] Hematocrit Auto (Bld) [Volum e fraction]Ordered By: Tahira Meadows on 01-06-2024 Hematocrit (Bld) [Volume fraction] 37.6 % 37-47 [facility] No Panel InformationOrdered By: Tahira Meadows on 01-06-2024 29.5 pg 27.0-32.0 [facility] 34.3 g/dL 32-36 [facility] 263 K/mm3 150-450 [facility] 8.3 fl 6.2-12.0 [facility] 77 mL/min >60 [facility] 93 mL/min >60 [facility] 47.17 ml/min [facility] 7.8 RATIO 10-20 [facility] 28.0 mmol/L 21.0-32.0 [facility] RBC Auto (Bld) [#/Vol]Ordere d By: Tahira Meadows on 01-06-2024 RBC (Bld) [#/Vol] 4.38 10*6/uL 4.2-5.4 [facility] Serum or plasma calcium santiago urement (mass/volume)Ordered By: Tahira Meadows on 01-06-2024 Calcium [Mass/Vol] 8.4 mg/dL 8.5-10.1 [facility] Serum or plasma creatinine m easurement (mass/volume)Ordered By: Tahira Meadows on 01-06-2024 Creatinine [Mass/Vol] 0.77 mg/dL 0.55-1.02 [facility] Serum or plasma urea nitroge n measurement (mass/volume)Ordered By: Tahira Meadows on 01-06-2024 Urea nitrogen [Mass/Vol] 6 mg/dL 7-18 [facility] Thin prep Papanicolaou smear with manual screeningOrdered By: Tahira Meadows on 01-06-2024 Thin prep Papanicolaou smear with manual screening 3 5-15 [facility] Basophil percentageOrdered B y: Gentry Thomson on 01-05-2024 Basophil percentage 2.9 mg/dL 2.5-4.9 [facility] Basophil percentage 128 mg/dL <200 [facility] Basophil percentage 104 mg/dL <199 [facility] No Panel InformationOrdered By: Gentry Thomson on 01-05-2024 1.9 mg/dL 1.6-2.6 [facility] 51 mg/dL >40 [facility] 56 mg/dL 0-130 [facility] 21 mg/dL 5-40 [facility] Respiratory pathogens detect ion panel by molecular detection methodOrdered By: Tahira Meadows on 01-05-2024 Respiratory pathogens DNA and RNA panel LATOYA+probe (Resp) [facility] Serum or plasma thyroid stim ulating hormone (TSH) measurement (units/volume)Ordered By: Gentry Thomson on 01-05-2024 TSH Qn 2.96 uIU/mL 0.358-3.74 [facility] Whole blood hemoglobin A1c/t otal hemoglobin ratio (mass fraction)Ordered By: Gentry Thomson on 01-05-2024 HbA1c (Bld) [Mass fraction] 5.0 % 3.8-5.6 [facility] Absolute lymphocyte countOrd ered By: Izabella Mendoza on 01-04-2024 Lymphocytes Auto (Unsp spec) [#/Vol] 1.30 10*3/uL 0.83-4.51 [facility] Activated partial thrombopla stin time (aPTT) in platelet poor plasma by coagulation aOrdered By: Izabella Mendoza on 01-04-2024 aPTT Coag (PPP) [Time] 39.5 s 24.1-36.2 [facility] Automated lymphocyte count a s percentage of total leukocytesOrdered By: Izabella Mendoza on 01-04-2024 Lymphocytes/100 WBC Auto (Unsp spec) 25.3 % 19-41 [facility] Basophil percentageOrdered B y: Izabella Mendoza on 01-04-2024 Basophils (Bld) [#/Vol] 3.4 10*3/uL 2.0-7.7 [facility] Basophils/100 WBC (Bld) 0.2 % 0-1 [facility] Basophils/100 WBC (Bld) 67.1 % 47-70 [facility] Basophils/100 WBC (Bld) 6.4 % 0-10 [facility] Basophils/100 WBC (Bld) 0.6 % 0-5 [facility] Chloride [Moles/Vol] 106 mmol/L 98-107 [facility] Eosinophils/100 WBC (Bld) 0.6 % 0-5 [facility] Glucose [Mass/Vol] 101 mg/dL 74-106 [facility] Comment on above: Fasting Glucose resu lt from 100 to 125 mg/dL suggests IMPAIRED HOMEOSTASIS per A.D.A. criteria. Hemoglobin (Bld) [Mass/Vol] 12.5 g/dL 12.0-15.0 [facility] Monocytes/100 WBC (Bld) 6.4 % 0-10 [facility] Neutrophils (Bld) [#/Vol] 3.4 10*3/uL 2.0-7.7 [facility] Neutrophils/100 WBC (Bld) 67.1 % 47-70 [facility] Potassium [Moles/Vol] 3.6 mmol/L 3.5-5.1 [facility] Sodium [Moles/Vol] 138 mmol/L 136-145 [facility] WBC (Bld) [#/Vol] 5.1 10*3/uL 4.4-11.0 [facility] Determination of erythrocyte mean corpuscular volume (MCV)Ordered By: Izabella Mendoza on 01-04-2024 MCV (RBC) [Entitic vol] 86.3 fL 81-99 [facility] Erythrocyte distribution wid th ratioOrdered By: Izabella Mendoza on 01-04-2024 Erythrocyte distribution width (RBC) [Ratio] 11.5 % 11.6-14.6 [facility] Erythrocyte distribution wid th standard deviationOrdered By: Izabella Mendoza on 01-04-2024 Erythrocyte distribution width (RBC) [Entitic vol] 36.3 fL 35.1-43.9 [facility] Hematocrit Auto (Bld) [Volum e fraction]Ordered By: Izabella Mendoza on 01-04-2024 Hematocrit (Bld) [Volume fraction] 36.0 % 37-47 [facility] Immature granulocytes/100 WB C Auto (Bld)Ordered By: Izabella Mendoza on 01-04-2024 Immature granulocytes/100 WBC (Bld) 0.400 % 0.0-0.9 [facility] Comment on above: IG% - Immature Granu locytes (promyelocytes, myelocytes and metamyelocytes) > 1% indicates that a LEFT SHIFT is Present. Laboratory - Chemistry and C hemistry - challengeOrdered By: Izabella Mendoza on 01-04-2024 CO2 [Moles/Vol] 27.0 mmol/L 21.0-32.0 [facility] Urea nitrogen/Creatinine [Mass ratio] 15.4 mg/mg 10-20 [facility] Laboratory - CoagulationOrde red By: Izabella Mendoza on 01-04-2024 INR Coag (Bld) [Relative time] 1.1 {INR} [facility] PT Coag (PPP) [Time] 14.1 s 11.7-14.9 [facility] Laboratory - Hematology and Cell countsOrdered By: Izabella Mendoza on 01-04-2024 MCH (RBC) [Entitic mass] 30.0 pg 27.0-32.0 [facility] MCHC (RBC) [Mass/Vol] 34.7 g/dL 32-36 [facility] Nucleated RBC/100 WBC (Bld) [Ratio] 0 % 0- [facility] Platelet mean volume (Bld) [Entitic vol] 8.3 fL 6.2-12.0 [facility] Platelets (Bld) [#/Vol] 215 10*3/uL 150-450 [facility] No Panel InformationOrdered By: Izabella Mendoza on 01-04-2024 Estimated Creatinine Clearance Calc 47.17 ml/min [facility] Estimated GFR (MDRD) Amer 102 mL/min >60 [facility] Comment on above: GFR Calc Estimated GFR (MDRD) Non-Af Amer 84 mL/min >60 [facility] Comment on above: Non- GFR Calc Troponin I High Sensitivity 9 pg/mL 3.0-54.0 [facility] Comment on above: Please Note: New Amrita t Units and Gender Specific Reference Ranges. For more information see Policy Stat Procedure [place] High Sensitivity Troponin (TNIH) and attachments. 0 % 0-5 [facility] 14.1 SECONDS 11.7-14.9 [facility] 1.1 [facility] 9 pg/mL 3.0-54.0 [facility] RBC Auto (Bld) [#/Vol]Ordere d By: Izabella Mendoza on 01-04-2024 RBC (Bld) [#/Vol] 4.17 10*6/uL 4.2-5.4 [facility] Serum or plasma calcium santiago urement (mass/volume)Ordered By: Izabella Mendoza on 01-04-2024 Calcium [Mass/Vol] 7.9 mg/dL 8.5-10.1 [facility] Serum or plasma creatinine m easurement (mass/volume)Ordered By: Izabella Mendoza on 01-04-2024 Creatinine [Mass/Vol] 0.71 mg/dL 0.55-1.02 [facility] Comment on above: The validity of the calculated GFR & GFRAA in patients over 70 years has not been determined. Clinical correlation is essential. Serum or plasma urea nitroge n measurement (mass/volume)Ordered By: Izabella Mendoza on 01-04-2024 Urea nitrogen [Mass/Vol] 11 mg/dL 7-18 [facility] Thin prep Papanicolaou smear with manual screeningOrdered By: Izabella Mendoza on 01-04-2024 Thin prep Papanicolaou smear with manual screening 5 5-15 [facility] Thin prep Papanicolaou smear with manual screening 102 mg/dL 74-106 [facility] Comment on above: MANAGEMENT OF PATIEN T CARE PER NURSING PROTOCOL C-REACTIVE PROTEINon 024 CRP [Mass/Vol] <0.9 mg/dL [facility] CBC W Auto Differential pane l (Bld)on 12-21-2023 Basophils (Bld) [#/Vol] 0.03 10*3/uL <0.11 k/uL [facility] Basophils/100 WBC (Bld) 0.5 % [facility] Differential cell count method Nom (Bld) Auto [facility] Eosinophils (Bld) [#/Vol] 0.09 10*3/uL <0.46 k/uL [facility] Eosinophils/100 WBC (Bld) 1.5 % [facility] Erythrocyte distribution width (RBC) [Ratio] 11.9 % 11.5 - 15.0 % [facility] Hematocrit (Bld) [Volume fraction] 43.7 % 36.0 - 46.0 % [facility] Hemoglobin (Bld) [Mass/Vol] 14.8 g/dL 11.5 - 15.5 g/dL [facility] Immature granulocytes (Bld) [#/Vol] <0.10 k/uL [facility] Immature granulocytes/100 WBC (Bld) 0.2 % [facility] Lymphocytes (Bld) [#/Vol] 1.16 10*3/uL 1.00 - 4.00 k/uL [facility] Lymphocytes/100 WBC (Bld) 19.4 % [facility] MCH (RBC) [Entitic mass] 30.4 pg 26.0 - 34.0 pg [facility] MCHC (RBC) [Mass/Vol] 33.9 g/dL 30.5 - 36.0 g/dL [facility] MCV (RBC) [Entitic vol] 89.7 fL 80.0 - 100.0 fL [facility] Monocytes (Bld) [#/Vol] 0.55 10*3/uL <0.87 k/uL [facility] Monocytes/100 WBC (Bld) 9.2 % [facility] Neutrophils (Bld) [#/Vol] 4.14 10*3/uL 1.45 - 7.50 k/uL [facility] Neutrophils/100 WBC (Bld) 69.2 % [facility] Nucleated RBC (Bld) [#/Vol] <0.01 k/uL [facility] Nucleated RBC/100 WBC (Bld) [Ratio] 0.0 /100 WBC [facility] Platelet mean volume (Bld) [Entitic vol] 9.0 fL 9.0 - 12.7 fL [facility] Platelets (Bld) [#/Vol] 279 10*3/uL 150 - 400 k/uL [facility] RBC (Bld) [#/Vol] 4.87 10*6/uL 3.90 - 5.2 0 m/uL [facility] WBC (Bld) [#/Vol] 5.98 10*3/uL 3.70 - 11. 00 k/uL [facility] Comprehensive metabolic 2000 panelon 12-21-2023 Albumin [Mass/Vol] 4.1 g/dL 3.9 - 4.9 g/dL [facility] ALP [Catalytic activity/Vol] 91 U/L 34 - 123 U/L [facility] ALT [Catalytic activity/Vol] 17 U/L 7 - 38 U/L [facility] Anion gap [Moles/Vol] 13 mmol/L 9 - 18 mmol/L [facility] AST [Catalytic activity/Vol] 29 U/L 13 - 35 U/L [facility] Bilirubin [Mass/Vol] 0.4 mg/dL 0.2 - 1 .3 mg/dL [facility] Calcium [Mass/Vol] 9.7 mg/dL 8.5 - 10. 2 mg/dL [facility] Chloride [Moles/Vol] 103 mmol/L 97 - 10 5 mmol/L [facility] CO2 [Moles/Vol] 27 mmol/L 22 - 30 mmol/L [facility] Creatinine [Mass/Vol] 0.91 mg/dL 0.58 - 0.96 mg/dL [facility] Estimated Glomerular Filtration Rate 64 mL/min/1.73m >=60 mL/min/1.73m [facility] Glucose [Mass/Vol] 62 mg/dL Low 74 - 99 mg/dL [facility] Potassium [Moles/Vol] 3.9 mmol/L 3.7 - 5.1 mmol/L [facility] Protein [Mass/Vol] 6.6 g/dL 6.3 - 8.0 g/dL [facility] Sodium [Moles/Vol] 143 mmol/L 136 - 144 mmol/L [facility] Urea nitrogen [Mass/Vol] 17 mg/dL 7 - 21 mg/dL [facility] ESR Westergren method (Bld) [Velocity]on 12-21-2023 ESR (Bld) [Velocity] 5 mm/h 0 - 20 mm/hr Cl [facility] RHEUMATOID FACTORon 12-21-19 Rheumatoid factor Qn <16 IU/mL [facility] Albumin Elph [Mass/Vol]Order ed By: Jose Ortega on 12-20-2023 Albumin [Mass/Vol] 3.8 g/dL 2.9-4.4 [facility] Erythrocyte sedimentation ra teOrdered By: Jose Barrera on 12-20-2023 ESR (Bld) [Velocity] 1 mm[facility]h [facility] Interpretation of serum or p lasma protein pattern by immunofixation (narrative resultOrdered By: Jose Oretga on 12-20-2023 Protein Fractions Immunofixation Chavo [Interp] Not Observed g/dL Not Observed [facility] No Panel InformationOrdered By: Jose Ortega on 12-20-2023 Addendum Document Comment . [facility] Comment on above: Protein electrophore sis scan will follow via computer,mail, or historical records administrator delivery. Centromere B Antibody <0.2 AI 0.0-0.9 [facility] Free Lambda Light Chains, Quant 11.9 mg/L 5.7-26.3 [facility] Immunoglobulin E 11 IU/mL 495 [facility] Immunoglobulin M 56 mg/dL -217 [facility] ANISA-1 Antibody <0.2 AI 0.0-0.9 [facility] OLERICULTURE PROFESSOR Antibody <0.2 AI 0.0-0.9 [facility] SM Antibody <0.2 AI 0.0-0.9 [facility] SS-A/Ro IgG Antibody < 0.2 AI 0.0-0.9 [facility] SS-B/La IgG Antibody < 0.2 AI 0.0-0.9 [facility] < 0.2 AI 0.0-0.9 [facility] 11.9 mg/L 5.7-26.3 [facility] 56 mg/dL -217 [facility] 11 IU/mL 6495 [facility] No Panel InformationOrdered By: Jose Barrera on 12-20-2023 C-Reactive Protein Extended Range < 2.90 mg/L 0.0-3.0 [facility] Comment on above: C-Reactive Protein ( CRP) provides useful information for thediagnosis, therapy and monitoring of inflammatory processesand associated diseases. For the evaluation of Relative Riskfor Cardiovascular Disease, a High Sensitivity CRP (HSCRP)should be ordered. < 2.90 mg/L 0.0-3.0 [facility] Serum DNA double strand anti body assay (units/volume)Ordered By: Jose Ortega on 12-20-2023 DNA double strand Ab Qn (S) 2 [IU]/mL 0-9 [facility] Comment on above: Negative <5 Equivoca l 5 - 9 Positive >9 Serum Scl-70 antibody assay (units/volume)Ordered By: Jose Ortega on 12-20-2023 SCL-70 extractable nuclear Ab Qn (S) <0.2 AI 0.0-0.9 [facility] Serum [id number] measu rement by electrophoresisOrdered By: Jose Ortega on 12-20-2023 Alpha 1 globulin Elph [Mass/Vol] 0.2 g/dL 0.0-0.4 [facility] Alpha 1 globulin Elph [Mass/Vol] 0.7 g/dL 0.4-1.0 [facility] Serum globulin measurement ( mass/volume)Ordered By: Jose Ortega on 12-20-2023 Globulin (S) [Mass/Vol] 2.6 g/dL 2.2-3.9 [facility] Serum immunoglobulin kappa l ight chains/immunoglobulin lambda light chains mass ratioOrdered By: Jose Ortega on 12-20-2023 Immunoglobulin light chains.kappa/Immunoglo bulin light chains.lambda (S) [Mass ratio] 1.41 0.26-1.65 [facility] Comment on above: Performed at: [address] [id number] Director: Aleksandar Alvarado PhD, Phone: [phone] at: [facility] [id number] Director: Aleksandar Mahoney MD, Phone: [phone] Serum or plasma IgA measurem ent (mass/volume)Ordered By: Jose Ortega on 12-20-2023 IgA [Mass/Vol] 203 mg/dL 64-422 [facility] Serum or plasma IgG measurem ent (mass/volume)Ordered By: Jose Ortega on 12-20-2023 IgG [Mass/Vol] 850 mg/dL [phone] [facility] Serum or plasma beta globuli n measurement by electrophoresis (mass/volume)Ordered By: Jose Ortega on 12-20-2023 Beta globulin Elph [Mass/Vol] 0.9 g/dL 0.7-1.3 [facility] Serum or plasma gamma globul in measurement by electrophoresis (mass/volume)Ordered By: Jose Ortega on 12-20-2023 Gamma globulin Elph [Mass/Vol] 0.8 g/dL 0.4-1.8 [facility] Serum or plasma immunoelectr ophoresis interpretation (nominal result)Ordered By: Jose Ortega on 12-20-2023 Interpretation IEP [Interp] Comment . [facility] Comment on above: No monoclonality det ected. Serum or plasma immunoglobul in kappa light chains measurement (mass/volume)Ordered By: Jose Ortega on 12-20-2023 Immunoglobulin light chains.kappa [Mass/Vol] 16.8 mg/L 3.3-19.4 [facility] Serum or plasma thyroid stim ulating hormone (TSH) measurement (units/volume)Ordered By: Jose Ortega on 12-20-2023 TSH Qn 1.42 uIU/mL 0.358-3.74 [facility] Thin prep Papanicolaou smear with manual screeningOrdered By: Jose Ortega on 12-20-2023 Thin prep Papanicolaou smear with manual screening 1.5 0.7-1.7 [facility] Total protein bloodOrdered B y: Jose Ortega on 12-20-2023 Protein [Mass/Vol] 6.4 g/dL 6.0-8.5 [facility] Basophil percentageOrdered B y: Jose Ortega on 11-15-2023 Basophil percentage 103 mg/dL 74-106 [facility] Basophil percentage 142 mmol/L 136-145 [facility] Basophil percentage 4.2 mmol/L 3.5-5.1 [facility] Basophil percentage 110 mmol/L 98-107 [facility] Chloride [Moles/Vol] 110 mmol/L 98-107 [facility] Glucose [Mass/Vol] 103 mg/dL 74-106 [facility] Comment on above: Fasting Glucose resu lt from 100 to 125 mg/dL suggests IMPAIRED HOMEOSTASIS per A.D.A. criteria. Potassium [Moles/Vol] 4.2 mmol/L 3.5-5.1 [facility] Sodium [Moles/Vol] 142 mmol/L 136-145 [facility] Laboratory - Chemistry and C hemistry - challengeOrdered By: Jose Ortega on 11-15-2023 CO2 [Moles/Vol] 28.0 mmol/L 21.0-32.0 [facility] Urea nitrogen/Creatinine [Mass ratio] 17.2 mg/mg 10-20 [facility] No Panel InformationOrdered By: Jose Ortega on 11-15-2023 Ceruloplasmin 20.5 mg/dL 19.0-39.0 [facility] Comment on above: Performed at: [facility] [employer] [address] [id number] Director: Aleksandar Alvarado PhD, Phone: [phone] Endomysial IgA Antibody Negative Negative [facility] Estimated Creatinine Clearance Calc 43.37 ml/min [facility] Estimated GFR (MDRD) Amer 81 mL/min >60 [facility] Comment on above: GFR Calc Estimated GFR (MDRD) Non-Af Amer 67 mL/min >60 [facility] Comment on above: Non- GFR Calc Free Lambda Light Chains, Quant 11.9 mg/L 5.7-26.3 [facility] Thyroglobulin Antibody < 1.0 IU/mL 0.0-0.9 [facility] Comment on above: Thyroglobulin Antibo dy measured by Neo CoulterMethodologyIt should be noted that the presence of thyroglobulinantibodies may not be pathogenic nor diagnostic, especiallyat very low levels. The assay state superintendent of schools has found thatfour percent of individuals without evidence of thyroiddisease or autoimmunity will have positive TgAb levels upto 4 IU/mL. Thyroglobulin Level 0.1 ng/mL 1.5-38.5 [facility] Comment on above: According to the [facility] [employer] Clinical [employer],the reference interval for Thyroglobulin (TG) should berelated to euthyroid patients and not for patients whounderwent thyroidectomy. TG reference intervals for thesepatients depend on the residual mass of the thyroid tissueleft after surgery. Establishing a post-operative baselineis recommended. The assay limit of quantitation is 0.1ng/mLThyroglobulin measured by Neo Safia ImmunometricAssay 67 mL/min >60 [facility] 81 mL/min >60 [facility] 43.37 ml/min [facility] 17.2 RATIO -20 [facility] 28.0 mmol/L 21.0-32.0 [facility] 11.9 mg/L 5.7-26.3 [facility] < 1.0 IU/mL 0.0-0.9 [facility] 20.5 mg/dL 19.0-39.0 [facility] 0.1 ng/mL 1.5-38.5 [facility] Negative Negative [facility] Serum immunoglobulin kappa l ight chains/immunoglobulin lambda light chains mass ratioOrdered By: Jose Ortega on 11-15-2023 Immunoglobulin light chains.kappa/Immunoglo bulin light chains.lambda (S) [Mass ratio] 1.66 0.26-1.65 [facility] Serum or plasma IgA measurem ent (mass/volume)Ordered By: Jose Ortega on 11-15-2023 IgA [Mass/Vol] 197 mg/dL 64-422 [facility] Serum or plasma calcium santiago urement (mass/volume)Ordered By: Jose Ortega on 11-15-2023 Calcium [Mass/Vol] 8.5 mg/dL 8.5-10.1 [facility] Serum or plasma creatinine m easurement (mass/volume)Ordered By: Jose Ortega on 11-15-2023 Creatinine [Mass/Vol] 0.87 mg/dL 0.55-1.02 [facility] Comment on above: The validity of the calculated GFR & GFRAA in patients over 70 years has not been determined. Clinical correlation is essential. Serum or plasma immunoglobul in kappa light chains measurement (mass/volume)Ordered By: Jose Ortega on 11-15-2023 Immunoglobulin light chains.kappa [Mass/Vol] 19.8 mg/L 3.3-19.4 [facility] Serum or plasma thiamine lcuas surement (mass/volume)Ordered By: Jose rOtega on 11-15-2023 Thiamine [Mass/Vol] 273.6 nmol/L 66.5-200.0 [facility] Serum or plasma thyroid stim ulating hormone (TSH) measurement (units/volume)Ordered By: Jose Ortega on 11-15-2023 TSH Qn 2.72 uIU/mL 0.358-3.74 [facility] Serum or plasma thyroperoxid ase antibody assay (units/volume)Ordered By: Jose Ortega on 11-15-2023 TPO Ab Qn [IU]/mL 0-34 [facility] Comment on above: Performed at: [facility] [address] [id number] Director: Aleksandar Alvarado PhD, Phone: [phone] Serum or plasma urea nitroge n measurement (mass/volume)Ordered By: Jose Ortega on 11-15-2023 Urea nitrogen [Mass/Vol] 15 mg/dL 7-18 [facility] Serum tissue transglutaminas e IgA antibody assay (units/volume)Ordered By: Jose Ortega on 11-15-2023 tTG IgA Qn (S) <2 U/mL 0-3 [facility] Comment on above: Negative 0 - 3 Weak Positive 4 - 10 Positive >10 Tissue Transglutaminase (tTG) has been identified as the endomysial antigen. Studies have demonstr- ated that endomysial IgA antibodies have over 99% specificity for gluten sensitive enteropathy. Thin prep Papanicolaou smear with manual screeningOrdered By: Jose Ortega on 11-15-2023 Thin prep Papanicolaou smear with manual screening 4 5-15 [facility] Thin prep Papanicolaou smear with manual screening 1.27 ng/dL 0.76-1.46 [facility] Thin prep Papanicolaou smear with manual screening 79 ug/dL 80-158 [facility] Comment on above: Detection Limit = 5P erformed at: [facility] [id number] Director: Aleksandar Mahoney MD, Phone: [phone] Whole blood hemoglobin A1c/t otal hemoglobin ratio (mass fraction)Ordered By: Jose Ortega on 11-15-2023 HbA1c (Bld) [Mass fraction] 5.0 % 3.8-5.6 [facility] Comment on above: Normal < 5.7 % Predi abetic 5.7 - 6.4 % Diabetic >or= 6.5 % Please note range changes. Absolute lymphocyte countOrd ered By: Tahira Meadows on 11-14-2023 Lymphocytes Auto (Unsp spec) [#/Vol] 1.00 10*3/uL 0.83-4.51 [facility] Albumin Elph [Mass/Vol]Order ed By: Jose Ortega on 11-14-2023 Albumin [Mass/Vol] 3.7 g/dL 2.9-4.4 [facility] Automated lymphocyte count a s percentage of total leukocytesOrdered By: Tahira Meadows on 11-14-2023 Lymphocytes/100 WBC Auto (Unsp spec) 24.6 % 19-41 [facility] Basophil percentageOrdered B y: Tahira Meadows on 11-14-2023 Basophil percentage 4.1 mg/dL 2.5-4.9 [facility] Basophil percentage 13.1 g/dL 12.0-15.0 [facility] Basophil percentage 6.2 g/dL 6.4-8.2 [facility] Basophil percentage 0.50 mg/dL 0.20-1.00 [facility] Basophil percentage 136 mg/dL <200 [facility] Basophil percentage 68 mg/dL <199 [facility] Basophils (Bld) [#/Vol] 4.1 10*3/uL 4.4-11.0 [facility] Basophils (Bld) [#/Vol] 2.5 10*3/uL 2.0-7.7 [facility] Basophils/100 WBC (Bld) 0.5 % 0-1 [facility] Basophils/100 WBC (Bld) 60.9 % 47-70 [facility] Basophils/100 WBC (Bld) 10.8 % 0-10 [facility] Basophils/100 WBC (Bld) 3.0 % 0-5 [facility] Bilirubin [Mass/Vol] 0.50 mg/dL 0.20-1.00 [facility] Comment on above: For patients on eltr ombopag therapy, use of Dimension [place] TBIL is not recommended. Cholesterol [Mass/Vol] 136 mg/dL <200 [facility] Comment on above: <200 mg/dL Desirable 200-240 mg/dL Borderline >240 mg/dL High Risk Eosinophils/100 WBC (Bld) 3.0 % 0-5 [facility] Hemoglobin (Bld) [Mass/Vol] 13.1 g/dL 12.0-15.0 [facility] Monocytes/100 WBC (Bld) 10.8 % 0-10 [facility] Neutrophils (Bld) [#/Vol] 2.5 10*3/uL 2.0-7.7 [facility] Neutrophils/100 WBC (Bld) 60.9 % 47-70 [facility] Protein [Mass/Vol] 6.2 g/dL 6.4-8.2 [facility] Triglyceride [Mass/Vol] 68 mg/dL <199 [facility] Comment on above: The drugs N-Acetylcy steine and Metamizole may falsely depress this assay.Serum Triglycerides Reference Interval Normal <150 mg/dL Borderline high 150 - 199 mg/dL High 200 - 499 mg/dL Very High > or = 500 mg/dL WBC (Bld) [#/Vol] 4.1 10*3/uL 4.4-11.0 [facility] Determination of erythrocyte mean corpuscular volume (MCV)Ordered By: Tahira Meadows on 11-14-2023 MCV (RBC) [Entitic vol] 89.7 fL 81-99 [facility] Erythrocyte distribution wid th ratioOrdered By: Tahira Meadows on 11-14-2023 Erythrocyte distribution width (RBC) [Ratio] 12.4 % 11.6-14.6 [facility] Erythrocyte distribution wid th standard deviationOrdered By: Tahira Meadows on 11-14-2023 Erythrocyte distribution width (RBC) [Entitic vol] 40.2 fL 35.1-43.9 [facility] Erythrocyte sedimentation ra teOrdered By: Jose Ortega on 11-14-2023 ESR (Bld) [Velocity] 5 mm/h 0-30 [facility] HIV 1 and HIV-2 antibody ass ay with HIV-1 p24 antigen detectionOrdered By: Jose Ortega on 11-14-2023 HIV 1+2 Ab+HIV1 p24 Ag IA Ql Non-Reactive Nonreactive [facility] Hematocrit Auto (Bld) [Volum e fraction]Ordered By: Tahira Meadows on 11-14-2023 Hematocrit (Bld) [Volume fraction] 38.3 % 37-47 [facility] Immature granulocytes/100 WB C Auto (Bld)Ordered By: Tahira Meadows on 11-14-2023 Immature granulocytes/100 WBC (Bld) 0.200 % 0.0-0.9 [facility] Comment on above: IG% - Immature Granu locytes (promyelocytes, myelocytes and metamyelocytes) > 1% indicates that a LEFT SHIFT is Present. Interpretation of serum or p lasma protein pattern by immunofixation (narrative resultOrdered By: Jose Ortega on 11-14-2023 Protein Fractions Immunofixation Chavo [Interp] Not Observed g/dL Not Observed [facility] Laboratory - Chemistry and C hemistry - challengeOrdered By: Jose Ortega on 11-14-2023 Cobalamin (Vitamin B12) [Mass/Vol] 356 pg/mL 211-911 [facility] Laboratory - Chemistry and C hemistry - challengeOrdered By: Tahira Meadows on 11-14-2023 Albumin/Globulin [Mass ratio] 1.1 {ratio} 0.9-2.4 [facility] ALP [Catalytic activity/Vol] 76 U/L 45-117 [facility] ALT [Catalytic activity/Vol] 20 U/L 13-56 [facility] Cholesterol in HDL [Mass/Vol] 68 mg/dL >40 [facility] Comment on above: The drugs N-Acetylcy steine and Metamizole may falsely depress this assay. Reference Range HDL <40 mg/dL Low HDL Cholesterol HDL >or= 60 mg/dL High HDL Cholesterol Cholesterol in LDL [Mass/Vol] 54 mg/dL 0-130 [facility] Globulin (S) [Mass/Vol] 2.9 g/dL 2.2-4.2 [facility] Magnesium [Mass/Vol] 2.0 mg/dL 1.6-2.6 [facility] Laboratory - Hematology and Cell countsOrdered By: Tahira Meadows on 11-14-2023 MCH (RBC) [Entitic mass] 30.7 pg 27.0-32.0 [facility] MCHC (RBC) [Mass/Vol] 34.2 g/dL 32-36 [facility] Nucleated RBC/100 WBC (Bld) [Ratio] 0 % 0-5 [facility] Platelet mean volume (Bld) [Entitic vol] 8.4 fL 6.2-12.0 [facility] Platelets (Bld) [#/Vol] 242 10*3/uL 150-450 [facility] No Panel InformationOrdered By: Jose Ortega on 11-14-2023 Addendum Document Comment . [facility] Comment on above: Protein electrophore sis scan will follow via computer,mail, or historical records administrator delivery. Anti-Nuclear Antibody Screen Negative Negative [facility] Comment on above: Performed at: [place] [id number] [place], [place] [id number] Director: Aleksandar Alvarado PhD, Phone: [phone] C-Reactive Protein Extended Range < 2.90 mg/L 0.0-3.0 [facility] Comment on above: C-Reactive Protein ( CRP) provides useful information for thediagnosis, therapy and monitoring of inflammatory processesand associated diseases. For the evaluation of Relative Riskfor Cardiovascular Disease, a High Sensitivity CRP (HSCRP)should be ordered. Centromere B Antibody <0.2 AI 0.0-0.9 [facility] Folate 36.10 ng/mL 3.1-55.4 [facility] Immunoglobulin E 24 IU/mL 6-495 [facility] Immunoglobulin M 62 mg/dL 26-217 [facility] ANISA-1 Antibody <0.2 AI 0.0-0.9 [facility] OLERICULTURE PROFESSOR Antibody <0.2 AI 0.0-0.9 [facility] SM Antibody <0.2 AI 0.0-0.9 [facility] SS-A/Ro IgG Antibody < 0.2 AI 0.0-0.9 [facility] SS-B/La IgG Antibody < 0.2 AI 0.0-0.9 [facility] < 2.90 mg/L 0.0-3.0 [facility] 356 pg/mL 211-911 [facility] 36.10 ng/mL 3.1-55.4 [facility] Negative Negative [facility] < 0.2 AI 0.0-0.9 [facility] 62 mg/dL 26-217 [facility] 24 IU/mL 6-495 [facility] No Panel InformationOrdered By: Tahira Meadows on 11-14-2023 VLDL Cholesterol 14 mg/dL 5-40 [facility] 30.7 pg 27.0-32.0 [facility] 34.2 g/dL 32-36 [facility] 242 K/mm3 150-450 [facility] 8.4 fl 6.2-12.0 [facility] 0 % 0-5 [facility] 1.1 RATIO 0.9-2.4 [facility] 76 U/L 45-117 [facility] 20 U/L 13-56 [facility] 2.0 mg/dL 1.6-2.6 [facility] 68 mg/dL >40 [facility] 54 mg/dL 0-130 [facility] 14 mg/dL 5-40 [facility] RBC Auto (Bld) [#/Vol]Ordere d By: Tahira Meadows on 11-14-2023 RBC (Bld) [#/Vol] 4.27 10*6/uL 4.2-5.4 [facility] Serum DNA double strand anti body assay (units/volume)Ordered By: Jose Ortega on 11-14-2023 DNA double strand Ab Qn (S) 1 [IU]/mL 0-9 [facility] Comment on above: Negative <5 Equivoca l 5 - 9 Positive >9 Serum Scl-70 antibody assay (units/volume)Ordered By: Jose Ortega on 11-14-2023 SCL-70 extractable nuclear Ab Qn (S) <0.2 AI 0.0-0.9 [facility] Serum Treponema species anti body detectionOrdered By: Jose Ortega on 11-14-2023 Treponema sp Ab Ql (S) Non-Reactive [facility] Serum uhzby-3-gvpeaczk measu rement by electrophoresisOrdered By: Jose Ortega on 11-14-2023 Alpha 1 globulin Elph [Mass/Vol] 0.3 g/dL 0.0-0.4 [facility] Alpha 1 globulin Elph [Mass/Vol] 0.7 g/dL 0.4-1.0 [facility] Serum cyclic citrullinated p eptide IgG antibody assay (units/volume)Ordered By: Jose Ortega on 11-14-2023 Cyclic citrullinated peptide IgG Qn 0 units 0-19 [facility] Comment on above: Negative <20 Weak po sitive 20 - 39 Moderate positive 40 - 59 Strong positive >59Performed at: [facility] [id number] Director: Aleksandar Alvarado PhD, Phone: [phone] at: [facility] [id number] Director: Aleksandar Mahoney MD, Phone: [phone] Serum globulin measurement ( mass/volume)Ordered By: Jose Ortega on 11-14-2023 Globulin (S) [Mass/Vol] 2.6 g/dL 2.2-3.9 [facility] Serum or plasma IgG measurem ent (mass/volume)Ordered By: Jose Ortega on 11-14-2023 IgG [Mass/Vol] 803 mg/dL 586-1602 [facility] Serum or plasma beta globuli n measurement by electrophoresis (mass/volume)Ordered By: Jose Ortega on 11-14-2023 Beta globulin Elph [Mass/Vol] 1.0 g/dL 0.7-1.3 [facility] Serum or plasma gamma globul in measurement by electrophoresis (mass/volume)Ordered By: Jose Ortega on 11-14-2023 Gamma globulin Elph [Mass/Vol] 0.7 g/dL 0.4-1.8 [facility] Serum or plasma immunoelectr ophoresis interpretation (nominal result)Ordered By: Jose Ortega on 11-14-2023 Interpretation IEP [Interp] Comment . [facility] Comment on above: No monoclonality det ected. Thin prep Papanicolaou smear with manual screeningOrdered By: Jose Ortega on 11-14-2023 Thin prep Papanicolaou smear with manual screening 1.5 0.7-1.7 [facility] Thin prep Papanicolaou smear with manual screeningOrdered By: Tahira Meadows on 11-14-2023 Thin prep Papanicolaou smear with manual screening 3.3 g/dL 3.2-5.0 [facility] Thin prep Papanicolaou smear with manual screening 21 U/L 15-37 [facility] Total protein bloodOrdered B y: Jose Ortega on 11-14-2023 Protein [Mass/Vol] 6.3 g/dL 6.0-8.5 [facility] Absolute lymphocyte countOrd ered By: Matthieu Gomez on 11-13-2023 Lymphocytes Auto (Unsp spec) [#/Vol] 1.27 10*3/uL 0.83-4.51 [facility] Activated partial thrombopla stin time (aPTT) in platelet poor plasma by coagulation aOrdered By: Matthieu Gomez on 11-13-2023 aPTT Coag (PPP) [Time] 29.4 s 24.1-36.2 [facility] Automated lymphocyte count a s percentage of total leukocytesOrdered By: Matthieu Gomez on 11-13-2023 Lymphocytes/100 WBC Auto (Unsp spec) 23.1 % 19-41 [facility] Basophil percentageOrdered B y: Matthieu Gomez on 11-13-2023 Basophils/100 WBC (Bld) 0.5 % 0-1 [facility] Chloride [Moles/Vol] 110 mmol/L 98-107 [facility] Eosinophils/100 WBC (Bld) 1.6 % 0-5 [facility] Glucose [Mass/Vol] 99 mg/dL 74-106 [facility] Hemoglobin (Bld) [Mass/Vol] 14.2 g/dL 12.0-15.0 [facility] Monocytes/100 WBC (Bld) 8.9 % 0-10 [facility] Neutrophils (Bld) [#/Vol] 3.6 10*3/uL 2.0-7.7 [facility] Neutrophils/100 WBC (Bld) 65.7 % 47-70 [facility] Potassium [Moles/Vol] 3.5 mmol/L 3.5-5.1 [facility] Sodium [Moles/Vol] 141 mmol/L 136-145 [facility] WBC (Bld) [#/Vol] 5.5 10*3/uL 4.4-11.0 [facility] Determination of erythrocyte mean corpuscular volume (MCV)Ordered By: Matthieu Gomez on 11-13-2023 MCV (RBC) [Entitic vol] 89.7 fL 81-99 [facility] Erythrocyte distribution wid th ratioOrdered By: Matthieu Gomez on 11-13-2023 Erythrocyte distribution width (RBC) [Ratio] 12.4 % 11.6-14.6 [facility] Erythrocyte distribution wid th standard deviationOrdered By: Matthieu Gomez on 11-13-2023 Erythrocyte distribution width (RBC) [Entitic vol] 41.2 fL 35.1-43.9 [facility] Hematocrit Auto (Bld) [Volum e fraction]Ordered By: Matthieu Gomez on 11-13-2023 Hematocrit (Bld) [Volume fraction] 42.0 % 37-47 [facility] Immature granulocytes/100 WB C Auto (Bld)Ordered By: Matthieu Gomez on 11-13-2023 Immature granulocytes/100 WBC (Bld) 0.200 % 0.0-0.9 [facility] Comment on above: IG% - Immature Granu locytes (promyelocytes, myelocytes and metamyelocytes) > 1% indicates that a LEFT SHIFT is Present. Laboratory - Chemistry and C hemistry - challengeOrdered By: Matthieu Gomez on 11-13-2023 CO2 [Moles/Vol] 30.0 mmol/L 21.0-32.0 [facility] Urea nitrogen/Creatinine [Mass ratio] 20.7 mg/mg 10-20 [facility] Laboratory - CoagulationOrde red By: Matthieu Gomez on 11-13-2023 INR Coag (Bld) [Relative time] 1.0 {INR} [facility] PT Coag (PPP) [Time] 13.1 s 11.7-14.9 [facility] Laboratory - Hematology and Cell countsOrdered By: Matthieu Gomez on 11-13-2023 MCH (RBC) [Entitic mass] 30.3 pg 27.0-32.0 [facility] MCHC (RBC) [Mass/Vol] 33.8 g/dL 32-36 [facility] Nucleated RBC/100 WBC (Bld) [Ratio] 0 % 0-5 [facility] Platelet mean volume (Bld) [Entitic vol] 8.2 fL 6.2-12.0 [facility] Platelets (Bld) [#/Vol] 269 10*3/uL 150-450 [facility] No Panel InformationOrdered By: Matthieu Gomez on 11-13-2023 Estimated Creatinine Clearance Calc 40.83 ml/min [facility] Estimated GFR (MDRD) Amer 76 mL/min >60 [facility] Comment on above: GFR Calc Estimated GFR (MDRD) Non-Af Amer 63 mL/min >60 [facility] Comment on above: Non- GFR Calc Troponin I High Sensitivity 8 pg/mL 3.0-54.0 [facility] Comment on above: Please Note: New Amrita t Units and Gender Specific Reference Ranges. For more information see Policy Stat Procedure [place] High Sensitivity Troponin (TNIH) and attachments. 13.1 SECONDS 11.7-14.9 [facility] 1.0 [facility] 8 pg/mL 3.0-54.0 [facility] RBC Auto (Bld) [#/Vol]Ordere d By: Matthieu Gomez on 11-13-2023 RBC (Bld) [#/Vol] 4.68 10*6/uL 4.2-5.4 [facility] Serum or plasma calcium santiago urement (mass/volume)Ordered By: Matthieu Gomez on 11-13-2023 Calcium [Mass/Vol] 9.2 mg/dL 8.5-10.1 [facility] Serum or plasma creatinine m easurement (mass/volume)Ordered By: Matthieu Gomez on 11-13-2023 Creatinine [Mass/Vol] 0.92 mg/dL 0.55-1.02 [facility] Comment on above: The validity of the calculated GFR & GFRAA in patients over 70 years has not been determined. Clinical correlation is essential. Serum or plasma thyroid stim ulating hormone (TSH) measurement (units/volume)Ordered By: Tahira Meadows on 11-13-2023 TSH Qn 1.53 uIU/mL 0.358-3.74 [facility] Serum or plasma urea nitroge n measurement (mass/volume)Ordered By: Matthieu Gomez on 11-13-2023 Urea nitrogen [Mass/Vol] 19 mg/dL 7-18 [facility] Thin prep Papanicolaou smear with manual screeningOrdered By: Matthieu Gomez on 11-13-2023 Thin prep Papanicolaou smear with manual screening 1 5-15 [facility] UA DIP, URINE (POC)on 2023 BILIRUBIN UA (POCT) Negative Negative [facility] CLARITY UA (POCT) Clear [facility] COLOR UA (POCT) Yellow [facility] GLUCOSE UA (POCT) Negative Negative mg/dL [facility] Hemoglobin Ql (U) Small Abnormal Negative [facility] KETONE UA (POCT) Negative Negative mg/dL [facility] LEUKOCYTES U[facility] (POCT) [facility] NITRITE UA (POCT) Negative Negative [facility] PH UA (POCT) 7.0 4.5 - 8.0 [facility] Protein Ql (U) Negative Negative mg/dL [facility] SPECIFIC GRAVITY UA (POCT) 1.020 1.005 - 1.030 [facility] UROBILINOGEN UA (POCT) 0.2 E.U./dL Radha l E.U./dL [facility] US Kidney - bilateral and Ur inary bladderon 10-26-2023 [facility] Absolute lymphocyte countOrd ered By: Gregory Conroy on 09-18-2023 Lymphocytes Auto (Unsp spec) [#/Vol] 0.74 10*3/uL 0.83-4.51 [facility] Basophil percentageOrdered B y: Gregory Conroy on 09-18-2023 Basophil percentage 106 mg/dL 74-106 [facility] Basophil percentage 141 mmol/L 136-145 [facility] Basophil percentage 3.8 mmol/L 3.5-5.1 [facility] Basophil percentage 108 mmol/L 98-107 [facility] Basophils (Bld) [#/Vol] 7.6 10*3/uL 4.4-11.0 [facility] Basophils (Bld) [#/Vol] 6.5 10*3/uL 2.0-7.7 [facility] Basophils/100 WBC (Bld) 0.3 % 0-1 [facility] Basophils/100 WBC (Bld) 86.2 % 47-70 [facility] Chloride [Moles/Vol] 108 mmol/L 98-107 [facility] Eosinophils/100 WBC (Bld) 0.3 % 0-5 [facility] Glucose [Mass/Vol] 106 mg/dL 74-106 [facility] Comment on above: Fasting Glucose resu lt from 100 to 125 mg/dL suggests IMPAIRED HOMEOSTASIS per A.D.A. criteria. Neutrophils (Bld) [#/Vol] 6.5 10*3/uL 2.0-7.7 [facility] Neutrophils/100 WBC (Bld) 86.2 % 47-70 [facility] Potassium [Moles/Vol] 3.8 mmol/L 3.5-5.1 [facility] Sodium [Moles/Vol] 141 mmol/L 136-145 [facility] WBC (Bld) [#/Vol] 7.6 10*3/uL 4.4-11.0 [facility] Blood erythrocytes count (nu mber/volume)Ordered By: Gregory Conroy on 09-18-2023 RBC (Bld) [#/Vol] 4.53 10*6/uL 4.2-5.4 [facility] Blood hemoglobin measurement (mass/volume)Ordered By: Gregory Conroy on 09-18-2023 Hemoglobin (Bld) [Mass/Vol] 13.8 g/dL 12.0-15.0 [facility] Blood lymphocytes/100 leukoc ytesOrdered By: Gregory Conroy on 09-18-2023 Lymphocytes/100 WBC (Bld) 9.8 % 19-41 [facility] Blood monocytes/100 leukocyt esOrdered By: Gregory Conroy on 09-18-2023 Monocytes/100 WBC (Bld) 2.9 % 0-10 [facility] Blood platelet mean volumeOr dered By: Gregory Conroy on 09-18-2023 Platelet mean volume (Bld) [Entitic vol] 8.4 fL 6.2-12.0 [facility] Determination of erythrocyte mean corpuscular volume (MCV)Ordered By: Gregory Conroy on 09-18-2023 MCV (RBC) [Entitic vol] 89.8 fL 81-99 [facility] Hematocrit Auto (Bld) [Volum e fraction]Ordered By: Gregory Conroy on 09-18-2023 Hematocrit (Bld) [Volume fraction] 40.7 % 37-47 [facility] Laboratory - Chemistry and C hemistry - challengeOrdered By: Gregory Conroy on 09-18-2023 CO2 [Moles/Vol] 31.0 mmol/L 21.0-32.0 [facility] Urea nitrogen/Creatinine [Mass ratio] 19.3 mg/mg 10-20 [facility] Laboratory - Hematology and Cell countsOrdered By: Gregory Conroy on 09-18-2023 Erythrocyte distribution width (RBC) [Entitic vol] 42.3 fL 35.1-43.9 [facility] Erythrocyte distribution width (RBC) [Ratio] 12.9 % 11.6-14.6 [facility] Immature granulocytes/100 WBC (Bld) 0.500 % 0.0-0.9 [facility] Comment on above: IG% - Immature Granu locytes (promyelocytes, myelocytes and metamyelocytes) > 1% indicates that a LEFT SHIFT is Present. MCH (RBC) [Entitic mass] 30.5 pg 27.0-32.0 [facility] Nucleated RBC/100 WBC (Bld) [Ratio] 0 % 0-5 [facility] MCHC Auto (RBC) [Mass/Vol]Or dered By: Gregory Conroy on 09-18-2023 MCHC (RBC) [Mass/Vol] 33.9 g/dL 32-36 [facility] No Panel InformationOrdered By: Gregory Conroy on 09-18-2023 D-Dimer Quantitative (PE/DVT) < 0.27 FEU/ug/m 0.27-0.49 [facility] Comment on above: NORMAL D-Dimer level (<0.50) indicates no DVT or PE. Estimated Creatinine Clearance Calc 41.24 ml/min [facility] Estimated GFR (MDRD) Amer 75 mL/min >60 [facility] Comment on above: GFR Calc Estimated GFR (MDRD) Non-Af Amer 62 mL/min >60 [facility] Comment on above: Non- GFR Calc Troponin I High Sensitivity 7 pg/mL 3.0-54.0 [facility] Comment on above: Please Note: New Amrita t Units and Gender Specific Reference Ranges. For more information see Policy Stat Procedure [place] High Sensitivity Troponin (TNIH) and attachments. 30.5 pg 27.0-32.0 [facility] 12.9 % 11.6-14.6 [facility] 42.3 fl 35.1-43.9 [facility] 0.500 % 0.0-0.9 [facility] 0 % 0-5 [facility] < 0.27 FEU/ug/m 0.27-0.49 [facility] 62 mL/min >60 [facility] 75 mL/min >60 [facility] 41.24 ml/min [facility] 19.3 RATIO 10-20 [facility] 7 pg/mL 3.0-54.0 [facility] 31.0 mmol/L 21.0-32.0 [facility] Platelets bldOrdered By: Cristina Conroy on 09-18-2023 Platelets (Bld) [#/Vol] 273 10*3/uL 150-450 [facility] Serum or plasma calcium santiago urement (mass/volume)Ordered By: Gregory Conroy on 09-18-2023 Calcium [Mass/Vol] 9.2 mg/dL 8.5-10.1 [facility] Serum or plasma creatinine m easurement (mass/volume)Ordered By: Gregory Conroy on 09-18-2023 Creatinine [Mass/Vol] 0.93 mg/dL 0.55-1.02 [facility] Comment on above: The validity of the calculated GFR & GFRAA in patients over 70 years has not been determined. Clinical correlation is essential. Serum or plasma urea nitroge n measurement (mass/volume)Ordered By: Gregory Conroy on 09-18-2023 Urea nitrogen [Mass/Vol] 18 mg/dL 7-18 [facility] Thin prep Papanicolaou smear with manual screeningOrdered By: Gregory Conroy on 09-18-2023 Thin prep Papanicolaou smear with manual screening 2 5-15 [facility] XR Chest PA and Lateralon IMPRESSION: Stable exam with no definite acute radiographic abnormality. Metal Buggy Operator: PSCB Transcribe Date/Time: Sep 16 2023 8:36A Dictated by : CRESENCIO ÁLVAREZ MD This examination was interpreted and the report reviewed and electronically signed by: CRESENCIO ÁLVAREZ MD on Sep 16 2023 8:37AM [facility] DIVISION OF RADIOLOGY * * *Final Report* [...] left mid ribs. DIVISION OF RADIOLOGY Provider, [facility] - 09/16/2023 * * *Final Report* * [...] exam with no definite acute radiographic abnormality. Metal Buggy Operator[facility] Transcribe Date/Time: Sep 16 2023 8:36A Dictated by : CRESENCIO ÁLVAREZ MD This examination was interpreted and the report reviewed and electronically signed by: CRESENCIO ÁLVAREZ MD on Sep 16 2023 8:37AM EST [facility] XR Chest PA and LateralOrder ed By: Ccf Provider on 09-16-2023 [facility] XR Chest PA and Lateralon Radiology Study observation (narrative) [facility] Basophil percentageOrdered B y: Minoo Morillo on 08-23-2023 Basophil percentage < 1.0 mg/dL 0.55-1.02 [facility] No Panel InformationOrdered By: Minoo Morillo on 08-23-2023 Bedside Estimated GFR (eGFR) > 60.0000 mL/min >60 [facility] LG Jt Injection/Arthrocentes is: L kneeon 07-26-2023 Juan Kilpatrick CNP 07/27/2023 1:05 PM LG Jt Injection/Arthrocentesi s: L knee Performed by: Juan Kilpatrick CNP Authorized by: Juan Kilpatrick CNP CPT 02683 - Large Joint Arthrocentesis: Consent given by: [...] the procedure well with no immediate complications [facility] LG Jt Injection/Arthrocentes is: R kneeon 07-26-2023 Juan Kilpatrick CNP 07/27/2023 1:05 PM LG Jt Injection/Arthrocentesi s: R knee Performed by: uJan Kilpatirck CNP Authorized by: Juan Kilpatrick CNP CPT 50952 - Large Joint Arthrocentesis: Consent given by: [...] the procedure well with no immediate complications [facility] No Panel Informationon 07-26 [facility] XR KNEES BILATERAL 4+ VIEWS (SPECIFY VIEWS [...] COMPARISON: None. FINDINGS: AP standing, [place] and [place] views of both knees. Lateral view of [...] joint effusion. IMPRESSION: No acute osseous abnormality. / Workstation ID: [id number] Dictated by: JOHN SEPULVEDA on MonJul 26, 2023 11:39:06 AM EST Transcribed by: GABY BEY on MonJul 26, 2023 11:54:11 AM EST Finalized by: JOHN SEPULVEDA on MonJul 30, 2023 11:24:03 PM EST Normal [facility] Comment on above: Order Comment: Injur [...] 05, 2023 3:35:06 PM EDT Finalized by: MACIEJ BIRMINGHAM on MonJul 05, 2023 3:35:06 PM EDT Normal [facility] Comment on above: Order Comment: Injur [...] Otherwise no fractures dislocations or subluxations seen. [employer] [facility] Radiology Study observation (narrative) [facility] XR FOOT GENERAL 3V AP/LAT/OB L LEFTon 05-05-2023 [facility] XR Foot - left AP and Latera l and obliqueon 05-05-2023 IMPRESSION: No acute fracture. Degenerative disease of the left foot. Metal Buggy Operator: FLORINDA Transcribe Date/Time: May 05 2023 4:03P Dictated by : DARRYN MOHAN MD This examination was interpreted and the report reviewed and electronically signed by: DARRYN MOHAN MD on May 05 2023 4:06PM [facility] DIVISION OF RADIOLOGY * * *Final Report* [...] multiple interphalangeal joints. DIVISION OF RADIOLOGY Provider, [facility] * * *Final Report* [...] fracture. Degenerative disease of the left foot. Metal Buggy Operator: PSCB Transcribe Date/Time: May 05 2023 4:03P Dictated by : DARRYN MOHAN MD This examination was interpreted and the report reviewed and electronically signed by: DARRYN MOHAN MD on May 05 2023 4:06PM EST [facility] Radiology Study observation (narrative) [facility] XR Foot - left AP and Latera l and obliqueOrdered By: Ccf Provider on 05-05-[address] [facility] [address] BRAIN WO IVCONon 04-20-[address] BRAIN WO IVCON * * *Final Report* * * DATE OF EXAM: Apr 20 2023 2:59PM [facility] 0504 - CT BRAIN WO IVCON / [...] MRI brain 04/27/2012. CT brain 10/12/2011. RESULT: Nuclear Medicine Specialist (topogram) images: No additional findings. Post-operative change: [...] No CT evidence of acute intracranial pathology. Metal Buggy Operator: [facility] Transcribe Date/Time: Apr 20 2023 3:08P Dictated by : CHRISTINE MUNGUIA MD This examination was interpreted and the report reviewed and electronically signed by: CHRISTINE MUNGUIA MD on Apr 20 2023 3:14PM EST [id number] Normal [facility] No Panel Informationon 04-20 [facility]ON[facility] XR FACIAL BONES 3V AP/LAT/DRISCOLL * [...] are clear.. IMPRESSION: NO ACUTE BONY ABNORMALITY. Metal Buggy Operator: FLORINDA Transcribe Date/Time: Apr 24 2023 3:39P Dictated by : MARIA ESTHER ALBERTO MD This examination was interpreted and the report reviewed and electronically signed by: MARIA ESTHER ALBERTO MD on Apr 24 2023 3:43PM EST [id number] Normal [facility] XR KNEE 4V AP/LAT/OBLS RTon 04-20-2023 XR [...] Meniscal chondrocalcinosis suggesting calcium pyrophosphate deposition disease. Metal Buggy Operator: FLORINDA Transcribe Date/Time: Apr 24 2023 2:30P Dictated by : ZAID FORRESTER MD This examination was interpreted and the report reviewed and electronically signed by: ZAID FORRESTER MD on Apr 24 2023 2:31PM EST [id number] Normal [facility] Basophil percentageOrdered B y: Nohelia Angel on 04-12-2023 Chloride [Moles/Vol] 99 mmol/L 98-107 [facility] Glucose [Mass/Vol] 107 mg/dL 74-106 [facility] Comment on above: Fasting Glucose resu lt from 100 to 125 mg/dL suggests IMPAIRED HOMEOSTASIS per A.D.A. criteria. Potassium [Moles/Vol] 3.9 mmol/L 3.5-5.1 [facility] Sodium [Moles/Vol] 133 mmol/L 136-145 [facility] Laboratory - Chemistry and C hemistry - challengeOrdered By: Nohelia Angel on 04-12-2023 CO2 [Moles/Vol] 30.0 mmol/L 21.0-32.0 [facility] Urea nitrogen/Creatinine [Mass ratio] 15.7 mg/mg 10-20 [facility] No Panel InformationOrdered By: Nohelia Angel on 04-12-2023 Estimated GFR (MDRD) Amer 67 mL/min >60 [facility] Comment on above: GFR Calc Estimated GFR (MDRD) Non-Af Amer 56 mL/min >60 [facility] Comment on above: Non- GFR Calc Thyroid Stimulating Hormone (TSH) 0.66 uIU/mL 0.358-3.74 [facility] Serum or plasma calcium santiago urement (mass/volume)Ordered By: Nohelia Angel on 04-12-2023 Calcium [Mass/Vol] 9.0 mg/dL 8.5-10.1 [facility] Serum or plasma creatinine m easurement (mass/volume)Ordered By: Nohelia Angel on 04-12-2023 Creatinine [Mass/Vol] 1.02 mg/dL 0.55-1.02 [facility] Comment on above: The validity of the calculated GFR & GFRAA in patients over 70 years has not been determined. Clinical correlation is essential. Serum or plasma urea nitroge n measurement (mass/volume)Ordered By: Nohelia Angel on 04-12-2023 Urea nitrogen [Mass/Vol] 16 mg/dL 7-18 [facility] Thin prep Papanicolaou smear with manual screeningOrdered By: Nohelia Angel on 04-12-2023 Thin prep Papanicolaou smear with manual screening 4 5-15 [facility] UA DIP, URINE (POC)on 2022 BILIRUBIN UA (POCT) Negative Negative [facility] CLARITY UA (POCT) Cloudy [facility] COLOR UA (POCT) Yellow [facility] GLUCOSE UA (POCT) Negative Negative mg/dL [facility] HEMOGLOBIN/BLOOD UA (POCT) Small Abnormal Negative [facility] KETONE UA (POCT) Negative Negative mg/dL [facility] LEUKOCYTES UA (POCT) Trace Abnormal Negative [facility] NITRITE UA (POCT) Negative Negative [facility] PH UA (POCT) 6.5 4.5 - 8.0 [facility] Protein Ql (U) Negative Negative mg/dL [facility] SPECIFIC GRAVITY UA (POCT) 1.020 1.005 - 1.030 [facility] UROBILINOGEN UA (POCT) 0.2 E.U./dL Radha l E.U./dL [facility] PT Progress Noteon 3 PT Progress Note Therapy Diagnosis Assessed Impingement syndrome of left shoulder (726.2) (M75.42) Left shoulder pain (719.41) (M25.512) Low back pain (724.2) (M54.50) Pain in right hip (719.45) (M25.551) Plan Goals: Goals set and discussed today. 1. Independent HEP to allow for 50% reduction in max ADL C/C sx ( 6/10-LB; 8/10-L shldr; 10/10-R hip) 2-3wks 0/10-LB; 0/10 L shldr; 02/12/23; [...] code time is 15 minutes. Therapeutic exercise (28470): timed minutes 15, units 1 . final [...] lift trial, (attempted) X . Manual Therapy (69709):. NOT TODAY PROM L shldr all dir. Other CPT Codes:. NOT TODAY trial heel lift fitting. Self Care Management Training (91146) . Provided today:. HEP handout;. 'Scores and [...] reduction in max ADL C/C sx ( 6/-LB; 8/10-L shldr; 06/20-R hip) 2-3wks 0/10-LB; 0/10 [...] code time is 15 minutes. Therapeutic exercise (99391): timed minutes 15, units 1 . final [...] lift trial, (attempted) X . Manual Therapy (67196):. NOT TODAY PROM L shldr all dir. Other CPT Codes:. NOT TODAY trial heel lift fitting. Self Care Management Training (22387) . Provided today:. HEP handout;. 'Scores and Scales' Signatures Electronically signed by : Inderjit Plaza, PT; Feb 13 2023 5:37PM EST (Author) Normal [facility] PT Progress Noteon 3 PT Progress Note [...] location of pain: LB=6/10; L shldr=8/10; R hip=/10. Living Will. Living Will: Living will on [...] code time is 44 minutes. Therapeutic exercise (36996): timed minutes 39, units 3 . L [...] lift trial, (attempted) X . Manual Therapy (49289): timed minutes 5, units 0 . PROM L shldr all dir. Other CPT Codes:. NOT TODAY trial heel lift fitting. Self Care Management Training (60061) . Provided today:. HEP handout;. 'Scores and Scales' Signatures Electronically signed by : Inderjit Plaza, PT; Feb 10 2023 6:04PM EST (Author) Normal [facility] PT Progress Noteon 3 PT Progress Note [...] location of pain: LB=6/10; L shldr=8/10; R hip=/10. Living Will. Living Will: Living will on [...] code time is 44 minutes. Therapeutic exercise (29892): timed minutes 39, units 3 . L [...] lift trial, (attempted) X . Manual Therapy (61872): timed minutes 5, units 0 . PROM L shldr all dir. Other CPT Codes:. NOT TODAY trial heel lift fitting. Self Care Management Training (94359) . Provided today:. HEP handout; Tband. 'Scores and Scales' Signatures Electronically signed by : Inderjit Plaza, PT; Feb 10 2023 4:43PM EST (Author) Normal [facility] PT Progress Noteon 3 PT Progress Note [...] reviewed Visit number: 5 Amthem Evaluating therapist Allen Plaza PT. M75.42; [...] code time is 40 minutes. Therapeutic exercise (20198): timed minutes 35, units 3 . L [...] lift trial, (attempted) X . Manual Therapy (63543): timed minutes 5, units 0 . PROM L shldr all dir. Other CPT Codes:. NOT TODAY trial heel lift fitting. Self Care Management Training (60426) . Provided today:. HEP handout; Tband. 'Scores and Scales' Signatures Electronically signed by : Stephie Mancini, PHONE BANKER; Jan 23 2023 5:40PM EST (Author) Electronically signed by : Inderjit Plaza, PT; Jan 23 2023 5:57PM EST Normal [facility] PT Progress Noteon 3 PT Progress Note [...] M25.512; M54.50; M25.551 Subjective Patient reports:. I fell at home [...] code time is 43 minutes. Therapeutic exercise (37087): timed minutes 38, units 3 . L shldr UBE 2x2' Lv1 Standing rows w/pink Tband 2x10 Standing ER w/purple Tband 2x10 Standing IR w/pink Tband 2x10 chest press 2x10 teal N Pulleys x 3' trunk ROM/R hip PRE: partial bridge 2x10 N hooklying clamshell 2x10 tammy N pirif stretch 30 ea N LTR x10 heel lift trial, (attempted) X . Manual Therapy (62504): timed minutes 5, units 0 . PROM L shldr all dir. Other CPT Codes:. NOT TODAY trial heel lift fitting. Self Care Management Training (82506) . Provided today:. HEP handout; Tband. 'Scores and Scales' Signatures Electronically signed by : Inderjit Plaza, PT; Jan 20 2023 6:03PM EST (Author) Normal [facility] PT Progress Noteon 3 PT Progress Note [...] M54.50; M25.551 Subjective Patient reports:. Patient reports no falls [...] code time is 39 minutes. Therapeutic exercise (97236): timed minutes 25 . UBE 2x2' Lv1 [...] due to injection< 24hrs previous). Manual Therapy (52998): timed minutes 14, units 0 . PROM L shldr all dir. Other CPT Codes: timed minutes 11, units 1 . trial heel lift fitting. Self Care Management Training (00976) . 'Scores and Scales' Signatures Electronically signed by : Stephie Mancini, PHONE BANKER; Jan 16 2023 5:46PM EST (Author) Electronically signed by : Inderjit Plaza, PT; Jan 17 2023 9:18AM EST Normal [facility] PT Progress Noteon 3 PT Progress Note [...] code time is 40 minutes. Therapeutic exercise (23183): timed minutes 25 . UBE 2x2' Lv1 N trunk ROM LTR x10 N L shldr motion/ PRE as alicia. stdg row 2x10 stdg ER/IR purple tub 2x10 L N adonay scaption 3' N heel lift trial, (attempted) X R hip PRE, -A (deferred on 01/13/23 due to injection< 24hrs previous). Manual Therapy (35270): timed minutes 4, units 0 . PROM L shldr all dir. Other CPT Codes: timed minutes 11, units 1 . trial heel lift fitting. Self Care Management Training (25862) . 'Scores and Scales' Signatures Electronically signed by : Inderjit Plaza, PT; Jan 13 2023 4:57PM EST (Author) Normal [facility] PT Initial Evaluationon 05-0 PT Initial Evaluation [...] learning preventative care measures . 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 Patient Awareness: Patient is aware of her diagnosis and prognosis. Personal Factors That May Impact Care:. ID confirmed with B-day; speaks macedonian No obtrusive barriers to learning identified/observed. Objective Ortho Observation Palpation: superior L ASIS in stdg L>R leg length even ASIS in supine. ROM / Joint Mobility (Range of Motion in degrees) Shoulder: (Parson: P! Denotes Pain with Movement, * Indicates [place] Resistant Otherwise Measurements are in Supine) Flexion: R Active 110, L Active 90. Lumbar: (Parson = P! Denotes Pain with Movement) Extension: Active 75%. Flexion: Active 60%. Side Bend: R Active 60%, L Active 40%. RSB was most symptomatic to th (more content not included)... Normal [facility] PT Initial Evaluationon 11-11 PT Initial Evaluation [...] you for this referral and please call [phone] with any questions or concerns. Clinical Presentation: [...] 1 Authorization not required after evaluation Insurance: [place] Secondary Insurance: Medicare Evaluating therapist: Kat Bullock, [...] is in (more content not included)... Normal [facility] Absolute lymphocyte countOrd ered By: Nohelia Angel on 12-07-2022 Lymphocytes Auto (Unsp spec) [#/Vol] 1.03 10*3/uL 0.83-4.51 [facility] Basophil percentageOrdered B y: Nohelia Angel on 12-07-2022 Basophils/100 WBC (Bld) 0.4 % 0-1 [facility] Chloride [Moles/Vol] 108 mmol/L 98-107 [facility] Eosinophils/100 WBC (Bld) 2.5 % 0-5 [facility] Glucose [Mass/Vol] 90 mg/dL 74-106 [facility] Neutrophils (Bld) [#/Vol] 3.1 10*3/uL 2.0-7.7 [facility] Neutrophils/100 WBC (Bld) 64.5 % 47-70 [facility] Potassium [Moles/Vol] 3.9 mmol/L 3.5-5.1 [facility] Sodium [Moles/Vol] 141 mmol/L 136-145 [facility] WBC (Bld) [#/Vol] 4.7 10*3/uL 4.4-11.0 [facility] Blood erythrocytes count (nu mber/volume)Ordered By: Nohelia Angel on 12-07-2022 RBC (Bld) [#/Vol] 4.74 10*6/uL 4.2-5.4 [facility] Blood hemoglobin measurement (mass/volume)Ordered By: Nohelia Angel on 12-07-2022 Hemoglobin (Bld) [Mass/Vol] 14.5 g/dL 12.0-15.0 [facility] Blood lymphocytes/100 leukoc ytesOrdered By: Nohelia Angel on 12-07-2022 Lymphocytes/100 WBC (Bld) 21.8 % 19-41 [facility] Blood monocytes/100 leukocyt esOrdered By: Nohelia Angel on 12-07-2022 Monocytes/100 WBC (Bld) 10.6 % 0-10 [facility] Blood platelet mean volumeOr dered By: Nohelia Angel on 12-07-2022 Platelet mean volume (Bld) [Entitic vol] 8.3 fL 6.2-12.0 [facility] Determination of erythrocyte mean corpuscular volume (MCV)Ordered By: Nohelia Angel on 12-07-2022 MCV (RBC) [Entitic vol] 89.9 fL 81-99 [facility] Hematocrit Auto (Bld) [Volum e fraction]Ordered By: Nohelia Angel on 12-07-2022 Hematocrit (Bld) [Volume fraction] 42.6 % 37-47 [facility] Laboratory - Chemistry and C hemistry - challengeOrdered By: Nohelia Angel on 12-07-2022 CO2 [Moles/Vol] 30.0 mmol/L 21.0-32.0 [facility] Free T4 [Mass/Vol] 1.06 ng/dL 0.76-1.46 [facility] Natriuretic peptide B (Bld) [Mass/Vol] 102.1 pg/mL 0-100 [facility] Urea nitrogen/Creatinine [Mass ratio] 19.5 mg/mg 10-20 [facility] Laboratory - Hematology and Cell countsOrdered By: Nohelia Angel on 12-07-2022 Erythrocyte distribution width (RBC) [Entitic vol] 41.6 fL 35.1-43.9 [facility] Erythrocyte distribution width (RBC) [Ratio] 12.5 % 11.6-14.6 [facility] Immature granulocytes/100 WBC (Bld) 0.200 % 0.0-0.9 [facility] Comment on above: IG% - Immature Granu locytes (promyelocytes, myelocytes and metamyelocytes) > 1% indicates that a LEFT SHIFT is Present. MCH (RBC) [Entitic mass] 30.6 pg 27.0-32.0 [facility] Nucleated RBC/100 WBC (Bld) [Ratio] 0 % 0-5 [facility] MCHC Auto (RBC) [Mass/Vol]Or dered By: Nohelia Angel on 12-07-2022 MCHC (RBC) [Mass/Vol] 34.0 g/dL 32-36 [facility] No Panel InformationOrdered By: Nohelia Angel on 12-07-2022 Estimated GFR (MDRD) Amer 87 mL/min >60 [facility] Comment on above: GFR Calc Estimated GFR (MDRD) Non-Af Amer 72 mL/min >60 [facility] Comment on above: Non- GFR Calc Free Triiodothyronine (T3) pg/dL 2.0 pg/mL 2.18-3.98 [facility] Thyroid Stimulating Hormone (TSH) 2.50 uIU/mL 0.358-3.74 [facility] Platelets bldOrdered By: Kvng Angel on 12-07-2022 Platelets (Bld) [#/Vol] 231 10*3/uL 150-450 [facility] Serum or plasma calcium santiago urement (mass/volume)Ordered By: Nohelia Angel on 12-07-2022 Calcium [Mass/Vol] 8.9 mg/dL 8.5-10.1 [facility] Serum or plasma creatinine m easurement (mass/volume)Ordered By: Nohelia Angel on 12-07-2022 Creatinine [Mass/Vol] 0.82 mg/dL 0.55-1.02 [facility] Comment on above: The validity of the calculated GFR & GFRAA in patients over 70 years has not been determined. Clinical correlation is essential. Serum or plasma urea nitroge n measurement (mass/volume)Ordered By: Nohelia Angel on 12-07-2022 Urea nitrogen [Mass/Vol] 16 mg/dL 7-18 [facility] Thin prep Papanicolaou smear with manual screeningOrdered By: Nohelia Angel on 12-07-2022 Thin prep Papanicolaou smear with manual screening 3 5-15 [facility] PT Initial Evaluationon 11-10 PT Initial Evaluation No report was sent Normal [facility] Therapy Communicationon 11-10 Therapy Communication Message BHARTI RAFFY no showed today . Signatures Electronically signed by : Harris Artis PT; Nov 30 2022 10:24AM EST (Author) Normal [facility] Therapy Communicationon 09-12 Therapy Communication Message BHARTI AKBAR no showed today . Signatures Electronically signed by : Perlita Maynard CCC-DUCT LAYER HELPER; Oct 05 2022 10:38AM EST (Author) Normal [facility] Established Visit (Otolaryng ology)on 09-26-2022 Established Visit [...] up in 3-[address] Wraren?s clinic. We are here to assist you through your ENT care at [facility]. Dr. Warren is an ENT surgeon who specializes in voice, airway and swallowing issues. This means that she specializes in taking care of patients with complex voice, airway and swallowing problems. Dr. Warren's office number is [phone]. Please use this number to contact her and her care team regardless of which office you use to access care. This number is the most direct way to communicate with all the members of the care team. Dr. Warren?s alumnae secretary answers the office phone from 9am-4pm Mon-Mon. Call [phone] and push 2. She can help you with scheduling of appointments, general questions and information. You may need to leave a message if she is helping another patient. In this case, someone from the team will call you back the same day if you leave your message before 3pm, or the next business morning. Dr. Warren?s nurse and can be reached by calling [phone]. We make every effort to return phone calls the same day. If you are in need of urgent assistance after hours, please call [phone] and ask for ENT trial consultant. Dr. Warren works closely with speech therapists as they work together to help solve your issues with speech and swallowing. You may see a speech therapist during your appointment if Dr. Warren feels this is needed. If you need to reach speech therapy to talk with a therapist or to schedule an appointment, please call [phone]. Others who may be included in your care are dieticians, social workers, audiologists, neurologists, and physical therapists. Dr. Warren will provide these referrals as needed. Please let her know if you would like to request a specific referral. For your convenience, Dr. Warren sees patients at different [facility] locations including the [facility] at [facility], and [facility] at the [facility]. While we try to make your appointments [...] All medical record entries made by the Scribe were at my direction and personally dictated [...] Diphenoxylate-Atropine 2. (more content not included)... Normal [facility] Tobacco Screening.on 023 Adult depression screening assessment No -Otolaryn go [facility] [address] Work Phone: Fall risk assessment a) No falls within the last year -Otolaryngo [facility] [address] Work Phone: Tobacco use status [facility] b) No -Otolaryngo [facility] [address] Work Phone: Interpretation of Borrelia b urgdorferi antibody assayOrdered By: Dr. Thomas on 09-14-2022 B. burgdorferi Ab (S) [Interp] REF LAB [facility] Thin prep Papanicolaou smear with manual screeningOrdered By: Dr. Thomas on 09-14-2022 Thin prep Papanicolaou smear with manual screening Negative Negative [facility] Comment on above: Lyme antibodies not detected. Reflex testing is notindicated.No laboratory evidence of infection with B. burgdorferi(Lyme disease). Negative results may occur in patientsrecently infected (less than or equal to 14 days) with B.burgdorferi. If recent infection is suspected, repeattesting on a new sample collected in 7 to 14 days isrecommended.Performed at: [address] [id number] Director: Aleksandar Alvarado PhD, Phone: [phone] T4 FREE/FREE THYROXon 2021 Free T4 [Mass/Vol] 1.4 ng/dL 0.9 - 1.7 ng/dL [facility] TSH BLDon 09-07-2022 TSH Qn 5.860 m[IU]/L High 0.270 - 4.200 mIU/L [facility] Initial Visit (Otolaryngolog y)on 07-11-2022 Initial [...] you can call Speech Therapy Scheduling at [phone]. Please follow up pending the outcome of speech therapy. Welcome to Dr. Warren?s clinic. We are here to assist you through your ENT care at [facility]. Dr. Warren is an ENT surgeon who specializes in voice, airway and swallowing issues. This means that she specializes in taking care of patients with complex voice, airway and swallowing problems. Dr. Warren's office number is [phone]. Please use this number to contact her and her care team regardless of which office you use to access care. This number is the most direct way to communicate with all the members of the care team. Dr. Warren?s alumnae secretary answers the office phone from 9am-4pm Mon-Fri. Call [phone] and push 2. She can help you with scheduling of appointments, general questions and information. You may need to leave a message if she is helping another patient. In this case, someone from the team will call you back the same day if you leave your message before 3pm, or the next business morning. Dr. Warren?s nurse and can be reached by calling [phone]. We make every effort to return phone calls the same day. If you are in need of urgent assistance after hours, please call [phone] and ask for ENT trial consultant. Dr. Warren works closely with speech therapists as they work together to help solve your issues with speech and swallowing. You may see a speech therapist during your appointment if Dr. Warren feels this is needed. If you need to reach speech therapy to talk with a therapist or to schedule an appointment, please call [phone]. Others who may be included in your care are dieticians, social workers, audiologists, neurologists, and physical therapists. Dr. Warren will provide these referrals as needed. Please let her know if you would like to request a specific referral. For your convenience, Dr. Warren sees patients at different [facility] locations including the [facility] at [facility], and [facility] at the [facility]. While we try to make your appointments [...] healthcare goals. By signing my name below, Estefany Harvey Scribe, attest that this documentation has been prepared under the direction and in the presence of Dr. Ludmila Warren MD. All medical record entries made by the Scribe were at my direction and personally dictated [...] adverse effects (more content not included)... 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 appointments. Primary Language for learning: Urdu. Insurance Insurance reviewed Visit number: 1 Onset Date: 2021 Medicare Certification Period: Beginnin2021 Endin2021 Subjective Living Environment: home - patient lives with spouse. Patient arrival: independent Voice evaluation: Reason for Referral: BHARTI AKBAR is a 76 year female referred to Dr. Warren and [facility] by Dr. Armando Tian for spasmodic dysphonia. She received the [employer] COVID-19 vaccine and had adverse effects. She has pitch breaks and tremor with phonation that worsen with effort. 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 The patient has changes in her swallow as well. She had a MBS at [facility] and reports that it was normal. She [...] materials and (more content not included)... Normal [facility] Tobacco Screening.on 022 Adult depression screening assessment No [facility] Work Phone: Fall risk assessment a) No falls within the last year [facility] Work Phone: Tobacco use status CP b) No [facility] Work Phone: Absolute lymphocyte counton 05-04-2022 Lymphocytes Auto (Unsp spec) [#/Vol] 1.18 10*3/uL 0.83-4.51 [facility] Work Phone: Basophil percentageon 2021 Basophils/100 WBC (Bld) 0.2 % 0-1 [facility] Work Phone: Chloride [Moles/Vol] 103 mmol/L 98-107 [facility] Work Phone: Eosinophils/100 WBC (Bld) 2.0 % 0-5 [facility] Work Phone: Glucose [Mass/Vol] 82 mg/dL 74-106 [facility] Work Phone: Neutrophils (Bld) [#/Vol] 2.8 10*3/uL 2.0-7.7 [facility] Work Phone: Neutrophils/100 WBC (Bld) 62.3 % 47-70 [facility] Work Phone: Potassium [Moles/Vol] 4.3 mmol/L 3.5-5.1 [facility] Work Phone: Sodium [Moles/Vol] 138 mmol/L 136-145 [facility] Work Phone: WBC (Bld) [#/Vol] 4.5 10*3/uL 4.4-11.0 [facility] Work Phone: Blood erythrocytes count (nu mber/volume)on 05-04-2022 RBC (Bld) [#/Vol] 4.56 10*6/uL 4.2-5.4 [facility]: Blood hemoglobin measurement (mass/volume)on 05-04-2022 Hemoglobin (Bld) [Mass/Vol] 14.0 g/dL 12.0-15.0 [facility] Work Phone: Blood lymphocytes/100 leukoc yteson 05-04-2022 Lymphocytes/100 WBC (Bld) 26.0 % 19-41 [facility] Work Phone: Blood monocytes/100 leukocyt eson 05-04-2022 Monocytes/100 WBC (Bld) 9.3 % 0-10 [facility] Work Phone: Blood platelet mean volumeon 05-04-2022 Platelet mean volume (Bld) [Entitic vol] 8.1 fL 6.2-12.0 [facility] Work Phone: Determination of erythrocyte mean corpuscular volume (MCV)on 05-04-2022 MCV (RBC) [Entitic vol] 87.1 fL 81-99 [facility] Work Phone: Hematocrit Auto (Bld) [Volum e fraction]on 05-04-2022 Hematocrit (Bld) [Volume fraction] 39.7 % 37-47 [facility] Work Phone: Laboratory - Chemistry and C hemistry - challengeon 05-04-2022 CO2 [Moles/Vol] 31.0 mmol/L 21.0-32.0 [facility] Work Phone: Free T4 [Mass/Vol] 1.33 ng/dL 0.76-1.46 [facility] Work Phone: Natriuretic peptide B (Bld) [Mass/Vol] 66.9 pg/mL 0-100 [facility] Work Phone: Urea nitrogen/Creatinine [Mass ratio] 20.0 mg/mg 10-20 [facility] Work Phone: Laboratory - Hematology and Cell countson 05-04-2022 Erythrocyte distribution width (RBC) [Entitic vol] 40.1 fL 35.1-43.9 [facility] Work Phone: Erythrocyte distribution width (RBC) [Ratio] 12.6 % 11.6-14.6 [facility] Work Phone: Immature granulocytes/100 WBC (Bld) 0.200 % 0.0-0.9 [facility] Work Phone: Comment on above: IG% - Immature Granu locytes (promyelocytes, myelocytes and metamyelocytes) > 1% indicates that a LEFT SHIFT is Present. MCH (RBC) [Entitic mass] 30.7 pg 27.0-32.0 [facility] Work Phone: Nucleated RBC/100 WBC (Bld) [Ratio] 0 % 0-5 [facility] Work Phone: MCHC Auto (RBC) [Mass/Vol]on 05-04-2022 MCHC (RBC) [Mass/Vol] 35.3 g/dL 32-36 [facility] Work Phone: No Panel Informationon 05-04 Estimated GFR (MDRD) Amer 84 mL/min >60 [facility] Work Phone: Comment on above: GFR Calc Estimated GFR (MDRD) Non-Af Amer 69 mL/min >60 [facility] Work Phone: Comment on above: Non- GFR Calc Free Triiodothyronine (T3) pg/dL 2.5 pg/mL 2.18-3.98 [facility] Work Phone: Thyroid Stimulating Hormone (TSH) 0.14 uIU/mL 0.358-3.74 [facility] Work Phone: Platelets bldon 05-04-2022 Platelets (Bld) [#/Vol] 255 10*3/uL 150-450 [facility] Work Phone: Serum or plasma calcium santiago urement (mass/volume)on 05-04-2022 Calcium [Mass/Vol] 9.0 mg/dL 8.5-10.1 [facility] Work Phone: Serum or plasma creatinine m easurement (mass/volume)on 05-04-2022 Creatinine [Mass/Vol] 0.85 mg/dL 0.55-1.02 [facility] Work Phone: Comment on above: The validity of the calculated GFR & GFRAA in patients over 70 years has not been determined. Clinical correlation is essential. Serum or plasma urea nitroge n measurement (mass/volume)on 05-04-2022 Urea nitrogen [Mass/Vol] 17 mg/dL 7-18 [facility] Work Phone: Thin prep Papanicolaou smear with manual screeningon 05-04-2022 Thin prep Papanicolaou smear with manual screening 4 5-15 [facility] Work Phone: Dewitt nut IgE serumon 04-27 [place] IgE Qn (S) <0.10 kU/L Class 0 [facility] Work Phone: Adhikari's yeast IgE serumon 0 04-27-2022 Adhikari's yeast IgE Qn (S) <0.10 kU/L Class 0 [facility] Work Phone: Laboratory - Miscellaneous t estson 04-27-2022 Service comment (Unsp spec) [Interp] Comment . [facility] Work Phone: Comment on above: Levels of [...] Allergen IgE Antibody <0.10 kU/L Class 0 [facility] Work Phone: Hazelnut Allergen IgE Antibody <0.10 kU/L Class 0 [facility] Work Phone: Scallop Allergen <0.10 kU/L Class 0 [facility] Work Phone: Sesame Seed Allergen IgE Antibody <0.10 kU/L Class 0 [facility] Work Phone: Shrimp Allergen <0.10 kU/L Class 0 [facility] Work Phone: Serum Ustilago avenae IgE an tibody assay (units/volume)on 04-27-2022 Oat smut IgE Qn (S) <0.10 kU/L Class 0 [facility] Work Phone: Serum almond IgE antibody as say (units/volume)on 04-27-2022 Garland IgE Qn (S) <0.10 kU/L Class 0 [facility] Work Phone: Serum apple IgE antibody ass ay (units/volume)on 04-27-2022 Apple IgE Qn (S) <0.10 kU/L Class 0 [facility] Work Phone: Serum banana IgE antibody as say (units/volume)on 04-27-2022 Banana IgE Qn (S) <0.10 kU/L Class 0 [facility] Work Phone: Serum beef IgE antibody assa y (units/volume)on 04-27-2022 Beef IgE Qn (S) <0.10 kU/L Class 0 [facility] Work Phone: Serum black walnut IgE antib crystal assay (units/volume)on 04-27-2022 Black Garrison IgE Qn (S) <0.10 kU/L Class 0 [facility] Work Phone: Serum carrot IgE antibody as say (units/volume)on 04-27-2022 Carrot IgE Qn (S) <0.10 kU/L Class 0 [facility] Work Phone: Serum cashew nut IgE antibod y assay (units/volume)on 04-27-2022 Cashew nut IgE Qn (S) <0.10 kU/L Class 0 [facility] Work Phone: Serum chicken IgE antibody a ssay (units/volume)on 04-27-2022 Chicken IgE Qn (S) <0.10 kU/L Class 0 [facility] Work Phone: Serum clam IgE antibody assa y (units/volume)on 04-27-2022 Clam IgE Qn (S) <0.10 kU/L Class 0 [facility] Work Phone: Serum codfish IgE antibody a ssay (units/volume)on 04-27-2022 Codfish IgE Qn (S) <0.10 kU/L Class 0 [facility] Work Phone: Serum corn IgE antibody assa y (units/volume)on 04-27-2022 [place] IgE Qn (S) <0.10 kU/L Class 0 [facility] Work Phone: Serum cow milk IgE antibody assay (units/volume)on 04-27-2022 Cow milk IgE Qn (S) <0.10 kU/L Class 0 [facility] Work Phone: Serum crab IgE antibody assa y (units/volume)on 04-27-2022 Crab IgE Qn (S) <0.10 kU/L Class 0 [facility] Work Phone: Serum egg white IgE antibody assay (units/volume)on 04-27-2022 Egg white IgE Qn (S) <0.10 kU/L Class 0 [facility] Work Phone: Serum egg yolk IgE antibody assay (units/volume)on 04-27-2022 Egg yolk IgE Qn (S) <0.10 kU/L Class 0 [facility] Work Phone: Serum garlic IgE antibody as say (units/volume)on 04-27-2022 Garlic IgE Qn (S) <0.10 kU/L Class 0 [facility] Work Phone: Serum gluten IgE antibody as say (units/volume)on 04-27-2022 Gluten IgE Qn (S) <0.10 kU/L Class 0 [facility] Work Phone: Serum lobster IgE antibody a ssay (units/volume)on 04-27-2022 Lobster IgE Qn (S) <0.10 kU/L Class 0 [facility] Work Phone: Serum onion IgE antibody ass ay (units/volume)on 04-27-2022 Onion IgE Qn (S) <0.10 kU/L Class 0 [facility] Work Phone: Serum orange IgE antibody as say (units/volume)on 04-27-2022 Hematite IgE Qn (S) <0.10 kU/L Class 0 [facility] Work Phone: Serum pea IgE antibody assay (units/volume)on 04-27-2022 Pea IgE Qn (S) <0.10 kU/L Class 0 [facility] Work Phone: Serum peach IgE antibody ass ay (units/volume)on 04-27-2022 [place] IgE Qn (S) <0.10 kU/L Class 0 [facility] Work Phone: Serum peanut IgE antibody as say (units/volume)on 04-27-2022 Peanut IgE Qn (S) <0.10 kU/L Class 0 [facility] Work Phone: Serum pecan or hickory nut I gE antibody assay (units/volume)on 04-27-2022 Pecan or [place] Nut IgE Qn (S) <0.10 kU/L Class 0 [facility] Work Phone: Serum pork IgE antibody assa y (units/volume)on 04-27-2022 Pork IgE Qn (S) <0.10 kU/L Class 0 [facility] Work Phone: Serum rice IgE antibody assa y (units/volume)on 04-27-2022 Rice IgE Qn (S) <0.10 kU/L Class 0 [facility] Work Phone: Serum salmon IgE antibody as say (units/volume)on 04-27-2022 Moore IgE Qn (S) <0.10 kU/L Class 0 [facility] Work Phone: Serum soybean IgE antibody a ssay (units/volume)on 04-27-2022 Soybean IgE Qn (S) <0.10 kU/L Class 0 [facility] Work Phone: Serum strawberry IgE antibod y assay (units/volume)on 04-27-2022 [place] IgE Qn (S) <0.10 kU/L Class 0 [place] [facility] Work Phone: Serum tomato IgE antibody as say (units/volume)on 04-27-2022 Tomato IgE Qn (S) <0.10 kU/L Class 0 [facility] Work Phone: Serum tuna IgE antibody assa y (units/volume)on 04-27-2022 Tuna IgE Qn (S) <0.10 kU/L Class 0 [facility] Work Phone: Serum turkey meat IgE antibo dy assay (units/volume)on 04-27-2022 [place] meat IgE Qn (S) <0.10 kU/L Class 0 [facility] Work Phone: Comment on above: Performed at: [address] [id number] Director: Aleksandar Mahoney MD, Phone: [phone] Serum wheat IgE antibody ass ay (units/volume)on 04-27-2022 Wheat IgE Qn (S) <0.10 kU/L Class 0 [facility] Work Phone: Serum white potato specific IgE antibody assayon 04-27-2022 Potato IgE Qn (S) <0.10 kU/L Class 0 [facility] Work Phone: Absolute lymphocyte counton 03-30-2022 Lymphocytes Auto (Unsp spec) [#/Vol] 1.23 10*3/uL 0.83-4.51 [facility] Work Phone: Basophil percentageon 2021 Basophils/100 WBC (Bld) 0.2 % 0-1 [facility] Work Phone: Bilirubin [Mass/Vol] 0.30 mg/dL 0.20-1.00 [facility] Work Phone: Comment on above: For patients on eltr ombopag therapy, use of Dimension [place] TBIL is not recommended. Chloride [Moles/Vol] 103 mmol/L 98-107 [facility] Work Phone: Eosinophils/100 WBC (Bld) 1.4 % 0-5 [facility] Work Phone: Glucose [Mass/Vol] 77 mg/dL 74-106 [facility] Work Phone: [phone] Neutrophils (Bld) [#/Vol] 3.1 10*3/uL 2.0-7.7 [facility] Work Phone: [phone] Neutrophils/100 WBC (Bld) 63.8 % 47-70 [facility] Work Phone: Potassium [Moles/Vol] 4.2 mmol/L 3.5-5.1 [facility] Work Phone: [phone] Protein [Mass/Vol] 7.1 g/dL 6.4-8.2 [facility] Work Phone: Sodium [Moles/Vol] 139 mmol/L 136-145 [facility] Work Phone: [phone] WBC (Bld) [#/Vol] 4.9 10*3/uL 4.4-11.0 [facility] Work Phone: Blood erythrocytes count (nu mber/volume)on 03-30-2022 RBC (Bld) [#/Vol] 4.59 10*6/uL 4.2-5.4 [facility]: Blood hemoglobin measurement (mass/volume)on 03-30-2022 Hemoglobin (Bld) [Mass/Vol] 13.7 g/dL 12.0-15.0 [facility] Work Phone: Blood lymphocytes/100 leukoc yteson 03-30-2022 Lymphocytes/100 WBC (Bld) 25.2 % 19-41 [facility] Work Phone: Blood monocytes/100 leukocyt eson 03-30-2022 Monocytes/100 WBC (Bld) 9.2 % 0-10 [facility] Work Phone: Blood platelet mean volumeon 03-30-2022 Platelet mean volume (Bld) [Entitic vol] 8.5 fL 6.2-12.0 [facility] Work Phone: Determination of erythrocyte mean corpuscular volume (MCV)on 03-30-2022 MCV (RBC) [Entitic vol] 87.4 fL 81-99 [facility] Work Phone: Erythrocyte sedimentation ra judy 03-30-2022 ESR (Bld) [Velocity] 2 mm/h 0-30 [facility] Work Phone: Hematocrit Auto (Bld) [Volum e fraction]on 03-30-2022 Hematocrit (Bld) [Volume fraction] 40.1 % 37-47 [facility] Work Phone: Iron measurement (mass/mass) on 03-30-2022 Iron (Unsp spec) [Mass/Mass] 87 ug/dL 50-170 [facility] Work Phone: Laboratory - Chemistry and C hemistry - challengeon 03-30-2022 ALP [Catalytic activity/Vol] 93 U/L 45-117 [facility] Work Phone: ALT [Catalytic activity/Vol] 21 U/L 13-56 [facility] Work Phone: CK [Catalytic activity/Vol] 85 U/L 26-192 [facility] Work Phone: CO2 [Moles/Vol] 30.0 mmol/L 21.0-32.0 [facility] Work Phone: Cobalamin (Vitamin B12) [Mass/Vol] 713 pg/mL 211-911 [facility] Work Phone: Free T4 [Mass/Vol] 1.23 ng/dL 0.76-1.46 [facility] Work Phone: [phone] Globulin (S) [Mass/Vol] 3.5 g/dL 2.2-4.2 [facility] Work Phone: [phone] Urea nitrogen/Creatinine [Mass ratio] 18.4 mg/mg 10-20 [facility] Work Phone: Laboratory - Hematology and Cell countson 03-30-2022 Erythrocyte distribution width (RBC) [Entitic vol] 41.3 fL 35.1-43.9 [facility] Work Phone: Erythrocyte distribution width (RBC) [Ratio] 13.1 % 11.6-14.6 [facility] Work Phone: Immature granulocytes/100 WBC (Bld) 0.200 % 0.0-0.9 [facility] Work Phone: Comment on above: IG% - Immature Granu locytes (promyelocytes, myelocytes and metamyelocytes) > 1% indicates that a LEFT SHIFT is Present. MCH (RBC) [Entitic mass] 29.8 pg 27.0-32.0 [facility] Work Phone: Nucleated RBC/100 WBC (Bld) [Ratio] 0 % 0-5 [facility] Work Phone: MCHC Auto (RBC) [Mass/Vol]on 03-30-2022 MCHC (RBC) [Mass/Vol] 34.2 g/dL 32-36 [facility] Work Phone: No Panel Informationon 03-30 Estimated GFR (MDRD) Amer 67 mL/min >60 [facility] Work Phone: Comment on above: GFR Calc Estimated GFR (MDRD) Non-Af Amer 55 mL/min >60 [facility] Work Phone: Comment on above: Non- GFR Calc Free Triiodothyronine (T3) pg/dL 2.0 pg/mL 2.18-3.98 [facility] Work Phone: Thyroid Stimulating Hormone (TSH) 0.29 uIU/mL 0.358-3.74 [facility] Work Phone: Total Iron Binding Capacity 380 ug/dL 250-450 [facility] Work Phone: Platelets bldon 03-30-2022 Platelets (Bld) [#/Vol] 274 10*3/uL 150-450 [facility] Work Phone: Serum or plasma C reactive p rotein measurement (mass/volume)on 03-30-2022 CRP [Mass/Vol] mg/L 0.0-3.0 [facility] Work Phone: Comment on above: C-Reactive Protein ( CRP) provides useful information for thediagnosis, therapy and monitoring of inflammatory processesand associated diseases. For the evaluation of Relative Riskfor Cardiovascular Disease, a High Sensitivity CRP (HSCRP)should be ordered. Serum or plasma albumin santiago urement (mass/volume)on 03-30-2022 Albumin [Mass/Vol] 3.6 g/dL 3.2-5.0 [facility] Work Phone: Serum or plasma albumin/glob ulin mass ratioon 03-30-2022 Albumin/Globulin [Mass ratio] 1.0 {ratio} 0.9-2.4 [facility] Work Phone: Serum or plasma calcium santiago urement (mass/volume)on 03-30-2022 Calcium [Mass/Vol] 9.1 mg/dL 8.5-10.1 [facility] Work Phone: Serum or plasma creatinine m easurement (mass/volume)on 03-30-2022 Creatinine [Mass/Vol] 1.03 mg/dL 0.55-1.02 [facility] Work Phone: Comment on above: The validity of the calculated GFR & GFRAA in patients over 70 years has not been determined. Clinical correlation is essential. Serum or plasma ferritin lucas surement (mass/volume)on 03-30-2022 Ferritin [Mass/Vol] 24 ng/mL 8-252 [facility] Work Phone: Serum or plasma iron saturat ion measurement (mass fraction)on 03-30-2022 Iron saturation [Mass fraction] 22.9 % 15.0-55.0 [facility] Work Phone: Serum or plasma urea nitroge n measurement (mass/volume)on 03-30-2022 Urea nitrogen [Mass/Vol] 19 mg/dL 7-18 [facility] Work Phone: Thin prep Papanicolaou smear with manual screeningon 03-30-2022 Thin prep Papanicolaou smear with manual screening 20 U/L 15-37 [facility] Work Phone: [phone] Thin prep Papanicolaou smear with manual screening 6 5-15 [facility] Work Phone: [phone] Absolute lymphocyte counton 01-28-2022 Lymphocytes Auto (Unsp spec) [#/Vol] 1.20 10*3/uL 0.83-4.51 [facility] Work Phone: [phone] Basophil percentageon 2021 Basophils/100 WBC (Bld) 0.2 % 0-1 [facility] Work Phone: Bilirubin [Mass/Vol] 0.30 mg/dL 0.20-1.00 [facility] Work Phone: [phone] Comment on above: For patients on eltr ombopag therapy, use of Dim[place] TBIL is not recommended. Chloride [Moles/Vol] 104 mmol/L 98-107 [facility] Work Phone: [phone] Eosinophils/100 WBC (Bld) 1.6 % 0-5 [facility] Work Phone: [phone] Glucose [Mass/Vol] 100 mg/dL 74-106 [facility] Work Phone: [phone] Comment on above: Fasting Glucose resu lt from 100 to 125 mg/dL suggests IMPAIRED HOMEOSTASIS per A.D.A. criteria. Neutrophils (Bld) [#/Vol] 2.6 10*3/uL 2.0-7.7 [facility] Work Phone: [phone] Neutrophils/100 WBC (Bld) 59.6 % 47-70 [facility] Work Phone: [phone] Potassium [Moles/Vol] 4.3 mmol/L 3.5-5.1 [facility] Work Phone: [phone] Protein [Mass/Vol] 7.0 g/dL 6.4-8.2 [facility] Work Phone: [phone] Sodium [Moles/Vol] 138 mmol/L 136-145 [facility] Work Phone: WBC (Bld) [#/Vol] 4.3 10*3/uL 4.4-11.0 [facility] Work Phone: Blood erythrocytes count (nu mber/volume)on 01-28-2022 RBC (Bld) [#/Vol] 4.48 10*6/uL 4.2-5.4 [facility] Work Phone: Blood hemoglobin measurement (mass/volume)on 01-28-2022 Hemoglobin (Bld) [Mass/Vol] 12.8 g/dL 12.0-15.0 [facility] Work Phone: Blood lymphocytes/100 leukoc yteson 01-28-2022 Lymphocytes/100 WBC (Bld) 27.9 % 19-41 [facility] Work Phone: Blood monocytes/100 leukocyt eson 01-28-2022 Monocytes/100 WBC (Bld) 10.5 % 0-10 [facility] Work Phone: Blood platelet mean volumeon 01-28-2022 Platelet mean volume (Bld) [Entitic vol] 7.9 fL 6.2-12.0 [facility] Work Phone: Determination of erythrocyte mean corpuscular volume (MCV)on 01-28-2022 MCV (RBC) [Entitic vol] 85.3 fL 81-99 [facility] Work Phone: Hematocrit Auto (Bld) [Volum e fraction]on 01-28-2022 Hematocrit (Bld) [Volume fraction] 38.2 % 37-47 [facility] Work Phone: Laboratory - Chemistry and C hemistry - challengeon 01-28-2022 ALP [Catalytic activity/Vol] 86 U/L 45-117 [facility] Work Phone: ALT [Catalytic activity/Vol] 23 U/L 13-56 [facility] Work Phone: [phone] CO2 [Moles/Vol] 31.0 mmol/L 21.0-32.0 [facility] Work Phone: Globulin (S) [Mass/Vol] 3.3 g/dL 2.2-4.2 [facility] Work Phone: Urea nitrogen/Creatinine [Mass ratio] 21.0 mg/mg 10-20 [facility] Work Phone: Laboratory - Hematology and Cell countson 01-28-2022 Erythrocyte distribution width (RBC) [Entitic vol] 41.9 fL 35.1-43.9 [facility] Work Phone: Erythrocyte distribution width (RBC) [Ratio] 13.4 % 11.6-14.6 [facility] Work Phone: Immature granulocytes/100 WBC (Bld) 0.200 % 0.0-0.9 [facility] Work Phone: Comment on above: IG% - Immature Granu locytes (promyelocytes, myelocytes and metamyelocytes) > 1% indicates that a LEFT SHIFT is Present. MCH (RBC) [Entitic mass] 28.6 pg 27.0-32.0 [facility] Work Phone: Nucleated RBC/100 WBC (Bld) [Ratio] 0 % 0-5 [facility] Work Phone: MCHC Auto (RBC) [Mass/Vol]on 01-28-2022 MCHC (RBC) [Mass/Vol] 33.5 g/dL 32-36 [facility] Work Phone: No Panel Informationon 01-28 Estimated GFR (MDRD) Amer 69 mL/min >60 [facility] Work Phone: Comment on above: GFR Calc Estimated GFR (MDRD) Non-Af Amer 57 mL/min >60 [facility] Work Phone: Comment on above: Non- GFR Calc Platelets bldon 01-28-2022 Platelets (Bld) [#/Vol] 231 10*3/uL 150-450 [facility] Work Phone: Serum or plasma albumin santiago urement (mass/volume)on 01-28-2022 Albumin [Mass/Vol] 3.7 g/dL 3.2-5.0 [facility] Work Phone: Serum or plasma albumin/glob ulin mass ratioon 01-28-2022 Albumin/Globulin [Mass ratio] 1.1 {ratio} 0.9-2.4 [facility] Work Phone: Serum or plasma calcium santiago urement (mass/volume)on 01-28-2022 Calcium [Mass/Vol] 8.9 mg/dL 8.5-10.1 [facility] Work Phone: Serum or plasma creatinine m easurement (mass/volume)on 01-28-2022 Creatinine [Mass/Vol] 1.00 mg/dL 0.55-1.02 [facility] Work Phone: Comment on above: The validity of the calculated GFR & GFRAA in patients over 70 years has not been determined. Clinical correlation is essential. Serum or plasma urea nitroge n measurement (mass/volume)on 01-28-2022 Urea nitrogen [Mass/Vol] 21 mg/dL 7-18 [facility] Work Phone: Thin prep Papanicolaou smear with manual screeningon 01-28-2022 Thin prep Papanicolaou smear with manual screening 22 U/L 15-37 [facility] Work Phone: Thin prep Papanicolaou smear with manual screening 3 5-15 [facility] Work Phone: Basophil percentageon 2021 Creatinine [Mass/Vol] 0.7 mg/dL 0.55-1.02 [facility] Work Phone: No Panel Informationon 01-11 Bedside Estimated GFR (eGFR) > 60.0000 mL/min >60 [facility] Work Phone: Absolute lymphocyte counton 01-03-2022 Lymphocytes Auto (Unsp spec) [#/Vol] 1.20 10*3/uL 0.83-4.51 [facility] Work Phone: Basophil percentageon 2021 Basophils/100 WBC (Bld) 0.2 % 0-1 [facility] Work Phone: Eosinophils/100 WBC (Bld) 1.3 % 0-5 [facility] Work Phone: Neutrophils (Bld) [#/Vol] 3.7 10*3/uL 2.0-7.7 [facility] Work Phone: [phone] Neutrophils/100 WBC (Bld) 68.0 % 47-70 [facility] Work Phone: WBC (Bld) [#/Vol] 5.5 10*3/uL 4.4-11.0 [facility] Work Phone: Blood erythrocytes count (nu mber/volume)on 01-03-2022 RBC (Bld) [#/Vol] 4.57 10*6/uL 4.2-5.4 [facility] Work Phone: Blood hemoglobin measurement (mass/volume)on 01-03-2022 Hemoglobin (Bld) [Mass/Vol] 13.2 g/dL 12.0-15.0 [facility] Work Phone: Blood lymphocytes/100 leukoc yteson 01-03-2022 Lymphocytes/100 WBC (Bld) 22.0 % 19-41 [facility] Work Phone: Blood monocytes/100 leukocyt eson 01-03-2022 Monocytes/100 WBC (Bld) 8.3 % 0-10 [facility] Work Phone: Blood platelet mean volumeon 01-03-2022 Platelet mean volume (Bld) [Entitic vol] 8.7 fL 6.2-12.0 [facility] Work Phone: Determination of erythrocyte mean corpuscular volume (MCV)on 01-03-2022 MCV (RBC) [Entitic vol] 85.6 fL 81-99 [facility] Work Phone: Hematocrit Auto (Bld) [Volum e fraction]on 01-03-2022 Hematocrit (Bld) [Volume fraction] 39.1 % 37-47 [facility] Work Phone: Hemoglobin in reticulocytes (mass per reticulocyte)on 01-03-2022 Hemoglobin (Reticulocytes) [Entitic mass] 33.4 pg 30-35 [facility] Work Phone: Iron measurement (mass/mass) on 01-03-2022 Iron (Unsp spec) [Mass/Mass] 127 ug/dL 50-170 [facility] Work Phone: Laboratory - Hematology and Cell countson 01-03-2022 Erythrocyte distribution width (RBC) [Entitic vol] 42.8 fL 35.1-43.9 [facility] Work Phone: Erythrocyte distribution width (RBC) [Ratio] 13.8 % 11.6-14.6 [facility] Work Phone: Immature granulocytes/100 WBC (Bld) 0.200 % 0.0-0.9 [facility] Work Phone: Comment on above: IG% - Immature Granu locytes (promyelocytes, myelocytes and metamyelocytes) > 1% indicates that a LEFT SHIFT is Present. MCH (RBC) [Entitic mass] 28.9 pg 27.0-32.0 [facility] Work Phone: Nucleated RBC/100 WBC (Bld) [Ratio] 0 % 0-5 [facility] Work Phone: MCHC Auto (RBC) [Mass/Vol]on 01-03-2022 MCHC (RBC) [Mass/Vol] 33.8 g/dL 32-36 [facility] Work Phone: No Panel Informationon 01-03 Immature Reticulocyte Fraction 11.50 % 3.00-15.90 [facility] Work Phone: Reticulocyte Count 1.35 % 0.5-1.5 [facility] Work Phone: Total Iron Binding Capacity 457 ug/dL 250-450 [facility] Work Phone: Platelets bldon 01-03-2022 Platelets (Bld) [#/Vol] 275 10*3/uL 150-450 [facility] Work Phone: Serum or plasma ferritin lucas surement (mass/volume)on 01-03-2022 Ferritin [Mass/Vol] 15 ng/mL 8-252 [facility] Work Phone: Basophil percentageon 2021 Bilirubin [Mass/Vol] 0.40 mg/dL 0.20-1.00 [facility] Work Phone: Comment on above: For patients on eltr ombopag therapy, use of Dimension [place] TBIL is not recommended. Cholesterol [Mass/Vol] 138 mg/dL <200 [facility] Work Phone: Comment on above: <200 mg/dL Desirable 200-240 mg/dL Borderline >240 mg/dL High Risk Protein [Mass/Vol] 7.6 g/dL 6.4-8.2 [facility] Work Phone: Triglyceride [Mass/Vol] 86 mg/dL [facility] Work Phone: Comment on above: The drugs N-Acetylcy steine and Metamizole may falsely depress this assay.Serum Triglycerides Reference Interval Normal <150 mg/dL Borderline high 150 - 199 mg/dL High 200 - 499 mg/dL Very High > or = 500 mg/dL Cholesterol in LDL Direct as say [Mass/Vol]on 12-02-2021 LDL Cholesterol Direct (LIPOEL) 54 [facility] Direct bilirubinon 2 Bilirubin.direct [Mass/Vol] 0.15 mg/dL 0.00-0.30 [facility] Work Phone: Laboratory - Chemistry and C hemistry - challengeon 12-02-2021 ALP [Catalytic activity/Vol] 89 U/L 45-117 [facility] Work Phone: ALT [Catalytic activity/Vol] 30 U/L 13-56 [facility] Work Phone: Globulin (S) [Mass/Vol] 3.7 g/dL 2.2-4.2 [facility] Work Phone: Serum or plasma albumin santiago urement (mass/volume)on 12-02-2021 Albumin [Mass/Vol] 3.9 g/dL 3.2-5.0 [facility] Work Phone: Serum or plasma cholesterol in HDL measurement (mass/volume)on 12-02-2021 Cholesterol in HDL [Mass/Vol] 67 mg/dL [facility] Work Phone: Comment on above: The drugs N-Acetylcy steine and Metamizole may falsely depress this assay. Reference Range HDL <40 mg/dL Low HDL Cholesterol HDL >or= 60 mg/dL High HDL Cholesterol Serum or plasma cholesterol in VLDL measurement (mass/volume)on 12-02-2021 Cholesterol in VLDL [Mass/Vol] 17 mg/dL 5-40 [facility] Work Phone: Serum or plasma low density lipoprotein (LDL) cholesterol measurement (mass/volume)on 12-02-2021 Cholesterol in LDL [Mass/Vol] 54 mg/dL 0-130 [facility] Work Phone: Thin prep Papanicolaou smear with manual screeningon 12-02-2021 Thin prep Papanicolaou smear with manual screening 23 U/L 15-37 [facility] Work Phone: XR Knee - right 4 Viewson IMPRESSION: Mild degenerative changes. 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 DIVISION OF RADIOLOGY Provider, [facility] Jeanine Shelton - 10/27/2021 * * *Final Report* * [...] space narrowing. IMPRESSION IMPRESSION: Mild degenerative changes. Metal Bug[facility] Operator[facility] Transcribe Date/Time: Oct 27 2021 3:29P Dictated by : KESHAWN BURGESS MD This examination was interpreted and the report reviewed and electronically signed by: KESHAWN BURGESS MD on Oct 27 2021 3:30PM EST [facility] Radiology Study observation (narrative) [facility] XR Knee - right 4 ViewsOrder ed By: Ccf Provider on 10-27-2021 [facility] Absolute lymphocyte counton 10-08-2021 Lymphocytes Auto (Unsp spec) [#/Vol] 0.83 10*3/uL 0.83-4.51 [facility] Work Phone: Basophil percentageon 2021 Basophils/100 WBC (Bld) 0.3 % 0-1 [facility] Work Phone: Bilirubin [Mass/Vol] 0.40 mg/dL 0.20-1.00 [facility] Work Phone: Comment on above: For patients on eltr ombopag therapy, use of Dimension [place] TBIL is not recommended. Chloride [Moles/Vol] 105 mmol/L 98-107 [facility] Work Phone: Eosinophils/100 WBC (Bld) 2.3 % 0-5 [facility] Work Phone: Glucose [Mass/Vol] 101 mg/dL 74-106 [facility] Work Phone: Comment on above: Fasting Glucose resu lt from 100 to 125 mg/dL suggests IMPAIRED HOMEOSTASIS per A.D.A. criteria. Neutrophils (Bld) [#/Vol] 2.6 10*3/uL 2.0-7.7 [facility] Work Phone: Neutrophils/100 WBC (Bld) 64.5 % 47-70 [facility] Work Phone: Potassium [Moles/Vol] 4.4 mmol/L 3.5-5.1 [facility] Work Phone: Protein [Mass/Vol] 6.7 g/dL 6.4-8.2 [facility] Work Phone: Sodium [Moles/Vol] 137 mmol/L 136-145 [facility] Work Phone: [phone] WBC (Bld) [#/Vol] 4.0 10*3/uL 4.4-11.0 [facility] Work Phone: Blood erythrocytes count (nu mber/volume)on 10-08-2021 RBC (Bld) [#/Vol] 4.35 10*6/uL 4.2-5.4 [facility] Work Phone: Blood hemoglobin measurement (mass/volume)on 10-08-2021 Hemoglobin (Bld) [Mass/Vol] 11.9 g/dL 12.0-15.0 [facility] Work Phone: Blood lymphocytes/100 leukoc yteson 10-08-2021 Lymphocytes/100 WBC (Bld) 21.0 % 19-41 [facility] Work Phone: Blood monocytes/100 leukocyt eson 10-08-2021 Monocytes/100 WBC (Bld) 11.6 % 0-10 [facility] Work Phone: Blood platelet mean volumeon 10-08-2021 Platelet mean volume (Bld) [Entitic vol] 9.1 fL 6.2-12.0 [facility] Work Phone: Determination of erythrocyte mean corpuscular volume (MCV)on 10-08-2021 MCV (RBC) [Entitic vol] 84.1 fL 81-99 [facility] Work Phone: Hematocrit Auto (Bld) [Volum e fraction]on 10-08-2021 Hematocrit (Bld) [Volume fraction] 36.6 % 37-47 [facility] Work Phone: Iron measurement (mass/mass) on 10-08-2021 Iron (Unsp spec) [Mass/Mass] 85 ug/dL 50-170 [facility] Work Phone: Laboratory - Chemistry and C hemistry - challengeon 10-08-2021 ALP [Catalytic activity/Vol] 80 U/L 45-117 [facility] Work Phone: ALT [Catalytic activity/Vol] 20 U/L 13-56 [facility] Work Phone: CO2 [Moles/Vol] 30.0 mmol/L 21.0-32.0 [facility] Work Phone: Globulin (S) [Mass/Vol] 3.3 g/dL 2.2-4.2 [facility] Work Phone: Urea nitrogen/Creatinine [Mass ratio] 19.8 mg/mg 10-20 [facility] Work Phone: Laboratory - Hematology and Cell countson 10-08-2021 Erythrocyte distribution width (RBC) [Entitic vol] 45.4 fL 35.1-43.9 [facility] Work Phone: Erythrocyte distribution width (RBC) [Ratio] 14.7 % 11.6-14.6 [facility] Work Phone: Immature granulocytes/100 WBC (Bld) 0.300 % 0.0-0.9 [facility] Work Phone: Comment on above: IG% - Immature Granu locytes (promyelocytes, myelocytes and metamyelocytes) > 1% indicates that a LEFT SHIFT is Present. MCH (RBC) [Entitic mass] 27.4 pg 27.0-32.0 [facility] Work Phone: Nucleated RBC/100 WBC (Bld) [Ratio] 0 % 0-5 [facility] Work Phone: MCHC Auto (RBC) [Mass/Vol]on 10-08-2021 MCHC (RBC) [Mass/Vol] 32.5 g/dL 32-36 [facility] Work Phone: No Panel Informationon 10-08 Estimated GFR (MDRD) Amer 73 mL/min >60 [facility] Work Phone: Comment on above: GFR Calc Estimated GFR (MDRD) Non-Af Amer 60 mL/min >60 [facility] Work Phone: Comment on above: Non- GFR Calc Total Iron Binding Capacity 407 ug/dL 250-450 [facility] Work Phone: Platelets bldon 10-08-2021 Platelets (Bld) [#/Vol] 250 10*3/uL 150-450 [facility] Work Phone: Serum or plasma albumin santiago urement (mass/volume)on 10-08-2021 Albumin [Mass/Vol] 3.4 g/dL 3.2-5.0 [facility] Work Phone: Serum or plasma albumin/glob ulin mass ratioon 10-08-2021 Albumin/Globulin [Mass ratio] 1.0 {ratio} 0.9-2.4 [facility] Work Phone: Serum or plasma calcium santiago urement (mass/volume)on 10-08-2021 Calcium [Mass/Vol] 8.8 mg/dL 8.5-10.1 [facility] Work Phone: Serum or plasma creatinine m easurement (mass/volume)on 10-08-2021 Creatinine [Mass/Vol] 0.96 mg/dL 0.55-1.02 [facility] Work Phone: Comment on above: The validity of the calculated GFR & GFRAA in patients over 70 years has not been determined. Clinical correlation is essential. Serum or plasma ferritin lucas surement (mass/volume)on 10-08-2021 Ferritin [Mass/Vol] 18 ng/mL 8-252 [facility] Work Phone: Serum or plasma iron saturat ion measurement (mass fraction)on 10-08-2021 Iron saturation [Mass fraction] 20.9 % 15.0-55.0 [facility] Work Phone: Serum or plasma urea nitroge n measurement (mass/volume)on 10-08-2021 Urea nitrogen [Mass/Vol] 19 mg/dL 7-18 [facility] Work Phone: Thin prep Papanicolaou smear with manual screeningon 10-08-2021 Thin prep Papanicolaou smear with manual screening 19 U/L 15-37 [facility] Work Phone: Thin prep Papanicolaou smear with manual screening 2 5-15 [facility] Work Phone: CBC,PLATELETSon 09-03-2021 Hematocrit (Bld) [Volume fraction] 30.2 % Low 34.9-44.3 [facility] Comment on above: Performed By: #### C HM6 #### [facility] (DEFAULT) [address] [address] Hemoglobin (Bld) [Mass/Vol] 10.0 g/dL Low 11.4-15.2 [facility] Comment on above: Performed By: #### C HM6 #### [facility] (DEFAULT) [address] [address] MCV (RBC) [Entitic vol] 86.0 fL Normal 79.6-97.7 [facility] Comment on above: Performed By: #### C HM6 #### [facility] (DEFAULT) [address] [address] Mean Cell Hgb 28.5 pg Normal 25.9-33.9 [facility] Comment on above: Performed By: #### C HM6 #### [facility] (DEFAULT) [address] [address] Mean Cell Hgb Conc 33.1 g/dL Normal 31.4-35.9 [facility] Comment on above: Performed By: #### C HM6 #### [facility] (DEFAULT) [address] [address] Platelet mean volume (Bld) [Entitic vol] 8.7 fL Normal 8.5-12.2 [facility] Comment on above: Performed By: #### C HM6 #### [facility] (DEFAULT) [address] [address] Platelets (Bld) [#/Vol] 216 10*3/uL Normal 150-393 [facility] Comment on above: Performed By: #### C HM6 #### [facility] (DEFAULT) [address] [address] RBC (Bld) [#/Vol] 3.51 10*6/uL Low 3.91-5.04 [facility] Comment on above: Performed By: #### C HM6 #### [facility] (DEFAULT) [address] [place] [address] RBC Distribution 14.2 % Normal 10.8-14.9 [facility] Comment on above: Performed By: #### C HM6 #### [facility] (DEFAULT) [address] [place] [address] WBC (Bld) [#/Vol] 5.22 10*3/uL Normal 3.99-11.19 [facility] Comment on above: Performed By: #### C HM6 #### [facility] (DEFAULT) [address] [place] [address] CHEM 7 (LYTES,BUN,CREA,GLUC) on 09-03-2021 Anion gap [Moles/Vol] 12 mmol/L Normal 7-17 [facility] Comment on above: Performed By: #### H EMOGC #### [facility] (DEFAULT) [address] [place] [address] Chloride [Moles/Vol] 110 mmol/L High 98-108 [facility] Comment on above: Performed By: #### H EMOGC #### [facility] (DEFAULT) [address] [place] [address]34 CO2 [Moles/Vol] 25 mmol/L Normal 22-30 [facility] Comment on above: Performed By: #### H EMOGC #### [facility] (DEFAULT) [address] [place] [address]26 Creatinine [Mass/Vol] 0.83 mg/dL Normal 0.50-1.20 [facility] Comment on above: Performed By: #### H EMOGC #### [facility] (DEFAULT) [address] [place] [address] 08367 EST GFR, >=60 Normal >=60 [facility] Comment on above: Performed By: #### H EMOGC #### [facility] (DEFAULT) [address] [place] [address] 49969 EST GFR,Non >=60 Normal >=60 [facility] Comment on above: Performed By: #### H EMOGC #### [facility] (DEFAULT) [address] [address] Glucose [Mass/Vol] 87 mg/dL Normal 70-99 [facility] Comment on above: Performed By: #### H EMOGC #### [facility] (DEFAULT) [address] [address] Osmolality [Osmolality] 297 mosm/kg Normal 278-305 [facility] Comment on above: Performed By: #### H EMOGC #### [facility] (DEFAULT) [address] [address] Potassium [Moles/Vol] 3.9 mmol/L Normal 3.5-5.0 [facility] Comment on above: Performed By: #### H EMO #### [facility] (DEFAULT) [address] [place] [address] Sodium [Moles/Vol] 143 mmol/L Normal 133-143 [facility] Comment on above: Performed By: #### H EMO #### [facility] (DEFAULT) [address] [address] Urea nitrogen [Mass/Vol] 11 mg/dL Normal 7-22 [facility] Comment on above: Performed By: #### H EMO #### [facility] (DEFAULT) [address] [place] [address] Urea nitrogen/Creatinine [Mass ratio] 13 mg/mg Normal [facility] Comment on above: Performed By: #### H EMOGC #### [facility] (DEFAULT) [address] [address] MAGNESIUMon 09-03-2021 Magnesium [Mass/Vol] 1.6 mg/dL Normal 1.6-2.6 [facility] Comment on above: Performed By: #### H EMOGC #### [facility] (DEFAULT) [address] [place] [address] PHOSPHATE, INORGANICon 09-03 Phosphorous 3.2 mg/dL Normal 2.2-4.6 [facility] Comment on above: Performed By: #### H EMOGC #### [facility] (DEFAULT) [address] [place] [address] PT,INR,PTTon 09-03-2021 aPTT Coag (Bld) [Time] 29.5 s Normal 24.0-34.3 [facility] Comment on above: Performed By: #### C DIFP #### [facility] (DEFAULT) [address] [place] [address] INR Coag (PPP) [Relative time] 1.0 {INR} Normal 0.9-1.1 [facility] Comment on above: Performed By: #### C DIFP #### [facility] (DEFAULT) [address] [place] [address] PT Coag (PPP) [Time] 13.4 s Normal 11.9-14.2 [facility] Comment on above: Performed By: #### C DIFP #### [facility] (DEFAULT) [address] [place] [address] CBC,PLATELETSon 09-02-2021 Hematocrit (Bld) [Volume fraction] 31.6 % Low 34.9-44.3 [facility] Comment on above: Performed By: #### C RICHELLE MONTEZ IPB #### [facility] (DEFAULT) [address] [place] [address] Hemoglobin (Bld) [Mass/Vol] 10.4 g/dL Low 11.4-15.2 [facility] Comment on above: Performed By: #### C RICHELLE MONTEZ IPB #### [facility] (DEFAULT) [address] [place] [address] MCV (RBC) [Entitic vol] 86.6 fL Normal 79.6-97.7 [facility] Comment on above: Performed By: #### Chaparrita HMDoron MGO, IPB #### [facility] (DEFAULT) [address] [place] [address] Mean Cell Hgb 28.5 pg Normal 25.9-33.9 [facility] Comment on above: Performed By: #### Chaparrita HM7, MGO, IPB #### [facility] (DEFAULT) [address] [place] [address] Mean Cell Hgb Conc 32.9 g/dL Normal 31.4-35.9 [facility] Comment on above: Performed By: #### Chaparrita MONTEZ MGO, IPB #### [facility] (DEFAULT) [address] [place] [address] Platelet mean volume (Bld) [Entitic vol] 8.7 fL Normal 8.5-12.2 [facility] Comment on above: Performed By: #### Chaparrita MONTEZ MGO, IPB #### [facility] (DEFAULT) [address] [place] [address] Platelets (Bld) [#/Vol] 208 10*3/uL Normal 150-393 [facility] Comment on above: Performed By: #### Chaparrita MONTEZ MGO, IPB #### [facility] (DEFAULT) [address] [place] [address] RBC (Bld) [#/Vol] 3.65 10*6/uL Low 3.91-5.04 [facility] Comment on above: Performed By: #### Chaparrita HM7, MGO, IPB #### [facility] (DEFAULT) [address] [place] [address] RBC Distribution 13.9 % Normal 10.8-14.9 [facility] Comment on above: Performed By: #### Chaparrita HM7, MGO, IPB #### [facility] (DEFAULT) [address] [place] [address] WBC (Bld) [#/Vol] 5.18 10*3/uL Normal 3.99-11.19 [facility] Comment on above: Performed By: #### C HM7, MGO, IPB #### [facility] (DEFAULT) [address] [place] [address] CHEM 7 (LYTES,BUN,CREA,GLUC) on 09-02-2021 Anion gap [Moles/Vol] 12 mmol/L Normal 7-17 [facility] Comment on above: Performed By: #### C HM7, MGO, IPB #### [facility] (DEFAULT) [address] [place] [address] Chloride [Moles/Vol] 110 mmol/L High 98-108 [facility] Comment on above: Performed By: #### C HM7, MGO, IPB #### [facility] (DEFAULT) [address] [place] [address] CO2 [Moles/Vol] 24 mmol/L Normal 22-30 [facility] Comment on above: Performed By: #### C HM7, MGO, IPB #### [facility] (DEFAULT) [address] [place] [address] Creatinine [Mass/Vol] 0.82 mg/dL Normal 0.50-1.20 [facility] Comment on above: Performed By: #### C HM7, MGO, IPB #### [facility] (DEFAULT) [address] [place] [address] EST GFR, >=60 Normal >=60 [facility] Comment on above: Performed By: #### C HM7, MGO, IPB #### [facility] (DEFAULT) [address] [place] [address] EST GFR,Non >=60 Normal >=60 [facility] Comment on above: Performed By: #### C HM7, MGO, IPB #### [facility] (DEFAULT) [address] [place] [address] Glucose [Mass/Vol] 96 mg/dL Normal 70-99 [facility] Comment on above: Performed By: #### Chaparrita MONTEZ MGDaniela, IPB #### [facility] (DEFAULT) [address] [place] [address] Osmolality [Osmolality] 295 mosm/kg Normal 278-305 [facility] Comment on above: Performed By: #### Chaparrita MONTEZ MGO, IPB #### [facility] (DEFAULT) [address] [place] [address] Potassium [Moles/Vol] 3.8 mmol/L Normal 3.5-5.0 [facility] Comment on above: Performed By: #### Chaparrita MONTEZ MGO, IPB #### [facility] (DEFAULT) [address] [place] [address] Sodium [Moles/Vol] 142 mmol/L Normal 133-143 [facility] Comment on above: Performed By: #### Chaparrita MONTEZ MGO, IPB #### [facility] (DEFAULT) [address] [place] [address]15 Urea nitrogen [Mass/Vol] 11 mg/dL Normal 7-22 [facility] Comment on above: Performed By: #### Chaparrita HM7, MGO, IPB #### [facility] (DEFAULT) [address] [place] [address] Urea nitrogen/Creatinine [Mass ratio] 13 mg/mg Normal [facility] Comment on above: Performed By: #### Chaparrita HM7, MGO, IPB #### [facility] (DEFAULT) [address] [place] [address] 97821 HEMOGLOBIN & HEMATOCRITon Hematocrit (Bld) [Volume fraction] 32.6 % Low 34.9-44.3 [facility] Comment on above: Performed By: #### H H ####[facility] (DEFAULT)[address] [place] [address] Hemoglobin (Bld) [Mass/Vol] 10.7 g/dL Low 11.4-15.2 [facility] Comment on above: Performed By: #### H H ####[facility] (DEFAULT)[address] [place] [address] Hematocrit (Bld) [Volume fraction] 32.3 % Low 34.9-44.3 [facility] Comment on above: Performed By: #### X M #### [facility] (DEFAULT) [address] [place] [address] Hemoglobin (Bld) [Mass/Vol] 10.5 g/dL Low 11.4-15.2 [facility] Comment on above: Performed By: #### X M #### [facility] (DEFAULT) [address] [place] [address] MAGNESIUMon 09-02-2021 Magnesium [Mass/Vol] 1.7 mg/dL Normal 1.6-2.6 [facility] Comment on above: Performed By: #### C HM7, MGO, IPB #### [facility] (DEFAULT) [address] [place] [address]10 PHOSPHATE, INORGANICon 09-02 Phosphorous 3.8 mg/dL Normal 2.2-4.6 [facility] Comment on above: Performed By: #### C HM7, MGO, IPB #### [facility] (DEFAULT) [address] [place] [address] PT,INR,PTTon 09-02-2021 aPTT Coag (Bld) [Time] 30.3 s Normal 24.0-34.3 [facility] Comment on above: Performed By: #### C HM6 #### [facility] (DEFAULT) [address] [place] [address] 24895 INR Coag (PPP) [Relative time] 1.0 {INR} Normal 0.9-1.1 [facility] Comment on above: Performed By: #### C HM6 #### [facility] (DEFAULT) [address] [place] [address] PT Coag (PPP) [Time] 13.0 s Normal 11.9-14.2 [facility] Comment on above: Performed By: #### C HM6 #### [facility] (DEFAULT) [address] [address] CBC,PLATELETSon 09-01-2021 Hematocrit (Bld) [Volume fraction] 35.3 % Normal 34.9-44.3 [facility] Comment on above: Performed By: #### X M #### [facility] (DEFAULT) [address] [place] [address] Hemoglobin (Bld) [Mass/Vol] 11.7 g/dL Normal 11.4-15.2 [facility] Comment on above: Performed By: #### X M #### [facility] (DEFAULT) [address] [address] MCV (RBC) [Entitic vol] 85.5 fL Normal 79.6-97.7 [facility] Comment on above: Performed By: #### X M #### [facility] (DEFAULT) [address] [address] Mean Cell Hgb 28.3 pg Normal 25.9-33.9 [facility] Comment on above: Performed By: #### X M #### [facility] (DEFAULT) [address] [place] [address] Mean Cell Hgb Conc 33.1 g/dL Normal 31.4-35.9 [facility] Comment on above: Performed By: #### X M #### [facility] (DEFAULT) [address] [address] Platelet mean volume (Bld) [Entitic vol] 8.5 fL Normal 8.5-12.2 [facility] Comment on above: Performed By: #### X M #### [facility] (DEFAULT) [address] [place] [address] 22591 Platelets (Bld) [#/Vol] 239 10*3/uL Normal 150-393 [facility] Comment on above: Performed By: #### X M #### [facility] (DEFAULT) [address] [place] [address]94 RBC (Bld) [#/Vol] 4.13 10*6/uL Normal 3.91-5.04 [facility] Comment on above: Performed By: #### X M #### [facility] (DEFAULT) [address] [place] [address]3872 RBC Distribution 13.8 % Normal 10.8-14.9 [facility] Comment on above: Performed By: #### X M #### [facility] (DEFAULT) [address] [place] [address]257 WBC (Bld) [#/Vol] 6.37 10*3/uL Normal 3.99-11.19 [facility] Comment on above: Performed By: #### X M #### [facility] (DEFAULT) [address] [place] [address] CHEM 7 (LYTES,BUN,CREA,GLUC) on 09-01-2021 Anion gap [Moles/Vol] 14 mmol/L Normal 7-17 [facility] Comment on above: Performed By: #### C DIFP #### [facility] (DEFAULT) [address] [place] [address]9531 Chloride [Moles/Vol] 109 mmol/L High 98-108 [facility] Comment on above: Performed By: #### C DIFP #### [facility] (DEFAULT) [address] [place] [address]3438 CO2 [Moles/Vol] 25 mmol/L Normal 22-30 [facility] Comment on above: Performed By: #### C DIFP #### [facility] (DEFAULT) [address] [place] [address] 49097 Creatinine [Mass/Vol] 0.67 mg/dL Normal 0.50-1.20 [facility] Comment on above: Performed By: #### C DIFP #### [facility] (DEFAULT) [address] [place] [address] 11653 EST GFR, >=60 Normal >=60 [facility] Comment on above: Performed By: #### C DIFP #### [facility] (DEFAULT) [address] [place] [address]146 EST GFR,Non >=60 Normal >=60 [facility] Comment on above: Performed By: #### C DIFP #### [facility] (DEFAULT) [address] [place] [address] 61736 Glucose [Mass/Vol] 103 mg/dL High 70-99 [facility] Comment on above: Performed By: #### C DIFP #### [facility] (DEFAULT) [address] [place] [address] 30269 Osmolality [Osmolality] 298 mosm/kg Normal 278-305 [facility] Comment on above: Performed By: #### C DIFP #### [facility] (DEFAULT) [address] [place] [address] 73175 Potassium [Moles/Vol] 3.6 mmol/L Normal 3.5-5.0 [facility] Comment on above: Performed By: #### C DIFP #### [facility] (DEFAULT) [address] [place] [address] 30734 Sodium [Moles/Vol] 144 mmol/L High 133-143 [facility] Comment on above: Performed By: #### C DIFP #### [facility] (DEFAULT) [address] [place] [address] 34475 Urea nitrogen [Mass/Vol] 7 mg/dL Normal 7-22 [facility] Comment on above: Performed By: #### C DIFP #### [facility] (DEFAULT) [address] [place] [address] 54983 Urea nitrogen/Creatinine [Mass ratio] 10 mg/mg Normal [facility] Comment on above: Performed By: #### C DIFP #### [facility] (DEFAULT) [address] [place] [address] 29064 HEMOGLOBIN & HEMATOCRITon Hematocrit (Bld) [Volume fraction] 35.7 % Normal 34.9-44.3 [facility] Comment on above: Performed By: #### C HMRICHELLE Sal, IPB #### [facility] (DEFAULT) [address] [place] [address]96 Hemoglobin (Bld) [Mass/Vol] 11.8 g/dL Normal 11.4-15.2 [facility] Comment on above: Performed By: #### C HM7RICHELLE, IPB #### [facility] (DEFAULT) [address] [place] [address] 60419 IONIZED CALCIUM, INPATIENTon 09-01-2021 ICA 4.42 mg/dL Low 4.60-5.30 [facility] Comment on above: Performed By: #### I CA ####[facility] (DEFAULT)[address] [place] [address] 27069 MAGNESIUMon 09-01-2021 Magnesium [Mass/Vol] 2.1 mg/dL Normal 1.6-2.6 [facility] Comment on above: Performed By: #### C DIFP #### [facility] (DEFAULT) [address] [place] [address] 17545 PHOSPHATE, INORGANICon 09-01 Phosphorous 2.3 mg/dL Normal 2.2-4.6 [facility] Comment on above: Performed By: #### C DIFP #### [facility] (DEFAULT) [address] [place] [address] 89318 PT,INR,PTTon 09-01-2021 aPTT Coag (Bld) [Time] 28.2 s Normal 24.0-34.3 [facility] Comment on above: Performed By: #### P TPTT ####[facility] (DEFAULT)[address] [place] [address] 41002 INR Coag (PPP) [Relative time] 1.1 {INR} Normal 0.9-1.1 [facility] Comment on above: Performed By: #### P TPTT ####[facility] (DEFAULT)[address] [address] PT Coag (PPP) [Time] 13.6 s Normal 11.9-14.2 [facility] Comment on above: Performed By: #### P TPTT ####[facility] (DEFAULT)[address] [address] CBC,PLATELETSon 08-31-2020 Hematocrit (Bld) [Volume fraction] 21.8 % Low 34.9-44.3 [facility] Comment on above: Performed By: #### X M #### [facility] (DEFAULT) [address] [address] Hemoglobin (Bld) [Mass/Vol] 6.9 g/dL Critically low 11.4-15.2 [facility] Comment on above: Result Comment: This result has been called to DONNELL RAUSCH RN by Nilam Davenport on 08 31 2021 at 0206, and has been read back. Performed By: #### X M #### [facility] (DEFAULT) [address] [address] MCV (RBC) [Entitic vol] 85.5 fL Normal 79.6-97.7 [facility] Comment on above: Performed By: #### X M #### [facility] (DEFAULT) [address] [address] Mean Cell Hgb 27.1 pg Normal 25.9-33.9 [facility] Comment on above: Performed By: #### X M #### [facility] (DEFAULT) [address] [address] Mean Cell Hgb Conc 31.7 g/dL Normal 31.4-35.9 [facility] Comment on above: Performed By: #### X M #### [facility] (DEFAULT) [address] [place] [address] 75824 Platelet mean volume (Bld) [Entitic vol] 8.7 fL Normal 8.5-12.2 [facility] Comment on above: Performed By: #### X M #### [facility] (DEFAULT) [address] [place] [address] 64362 Platelets (Bld) [#/Vol] 240 10*3/uL Normal 150-393 [facility] Comment on above: Performed By: #### X M #### [facility] (DEFAULT) [address] [place] [address] 53734 RBC (Bld) [#/Vol] 2.55 10*6/uL Low 3.91-5.04 [facility] Comment on above: Performed By: #### X M #### [facility] (DEFAULT) [address] [place] [address] 77925 RBC Distribution 13.9 % Normal 10.8-14.9 [facility] Comment on above: Performed By: #### X M #### [facility] (DEFAULT) [address] [place] [address] 90431 WBC (Bld) [#/Vol] 3.92 10*3/uL Low 3.99-11.19 [facility] Comment on above: Performed By: #### X M #### [facility] (DEFAULT) [address] [place] [address] 11678 CHEM 7 (LYTES,BUN,CREA,GLUC) on 08-31-2021 Anion gap [Moles/Vol] 8 mmol/L Normal 7-17 [facility] Comment on above: Performed By: #### C HM7 MGO, IPB #### [facility] (DEFAULT) [address] [place] [address] 13740 Chloride [Moles/Vol] 110 mmol/L High 98-108 [facility] Comment on above: Performed By: #### Chaparrita HM7, MGO, IPB #### [facility] (DEFAULT) [address] [place] [address] 81190 CO2 [Moles/Vol] 26 mmol/L Normal 22-30 [facility] Comment on above: Performed By: #### C HM7, MGO, IPB #### [facility] (DEFAULT) [address] [place] [address] 45705 Creatinine [Mass/Vol] 0.69 mg/dL Normal 0.50-1.20 [facility] Comment on above: Performed By: #### C HM7, MGO, IPB #### [facility] (DEFAULT) [address] [place] [address] 23785 EST GFR, >=60 Normal >=60 [facility] Comment on above: Performed By: #### C HM7, MGO, IPB #### [facility] (DEFAULT) [address] [place] [address] 55672 EST GFR,Non >=60 Normal >=60 [facility] Comment on above: Performed By: #### C HM7, MGO, IPB #### [facility] (DEFAULT) [address] [place] [address] 62443 Glucose [Mass/Vol] 104 mg/dL High 70-99 [facility] Comment on above: Performed By: #### C HM7, MGO, IPB #### [facility] (DEFAULT) [address] [place] [address] 31365 Osmolality [Osmolality] 293 mosm/kg Normal 278-305 [facility] Comment on above: Performed By: #### C HM7, MGO, IPB #### [facility] (DEFAULT) [address] [place] [address] 65051 Potassium [Moles/Vol] 3.9 mmol/L Normal 3.5-5.0 [facility] Comment on above: Performed By: #### C HM7, MGO, IPB #### [facility] (DEFAULT) [address] [place] [address] 95805 Sodium [Moles/Vol] 140 mmol/L Normal 133-143 [facility] Comment on above: Performed By: #### RICHELLE ANGULO, IPB #### [facility] (DEFAULT) [address] [place] [address] 77001 Urea nitrogen [Mass/Vol] 14 mg/dL Normal 7-22 [facility] Comment on above: Performed By: #### RICHELLE ANGULO, IPB #### [facility] (DEFAULT) [address] [place] [address] 17998 Urea nitrogen/Creatinine [Mass ratio] 20 mg/mg Normal [facility] Comment on above: Performed By: #### RICHELLE ANGULO, IPB #### [facility] (DEFAULT) [address] [place] [address] 84993 HEMOGLOBIN & HEMATOCRITon Hematocrit (Bld) [Volume fraction] 23.2 % Low 34.9-44.3 [facility] Comment on above: Performed By: #### RICHELLE ANGULO, IPB #### [facility] (DEFAULT) [address] [place] [address] 88070 Hemoglobin (Bld) [Mass/Vol] 7.4 g/dL Low 11.4-15.2 [facility] Comment on above: Performed By: #### RICHELLE ANGULO, IPB #### [facility] (DEFAULT) [address] [place] [address] 79515 MAGNESIUMon 08-31-2021 Magnesium [Mass/Vol] 1.8 mg/dL Normal 1.6-2.6 [facility] Comment on above: Performed By: #### RICHELLE ANGULO, IPB #### [facility] (DEFAULT) [address] [place] [address] 05171 PHOSPHATE, INORGANICon 08-31 Phosphorous 3.3 mg/dL Normal 2.2-4.6 [facility] Comment on above: Performed By: #### C HM7, MGO, IPB #### [facility] (DEFAULT) [address] [place] [address] 79438 PT,INR,PTTon 08-31-2021 aPTT Coag (Bld) [Time] 28.2 s Normal 24.0-34.3 [facility] Comment on above: Performed By: #### Chaparrita MONTEZ MGO, IPB #### [facility] (DEFAULT) [address] [place] [address] 73210 INR Coag (PPP) [Relative time] 1.1 {INR} Normal 0.9-1.1 [facility] Comment on above: Performed By: #### RICHELLE ANGULO, IPB #### [facility] (DEFAULT) [address] [place] [address] 39281 PT Coag (PPP) [Time] 14.0 s Normal 11.9-14.2 [facility] Comment on above: Performed By: #### RICHELLE ANGULO, IPB #### [facility] (DEFAULT) [address] [place] [address] 03768 CBC AND ELECTRONIC DIFFon Basophils (Bld) [#/Vol] 10*3/uL Normal 0.00-0.15 [facility] Comment on above: Performed By: #### RICHELLE ANGULO, IPB #### [facility] (DEFAULT) [address] [place] [address] 42183 Basophils/100 WBC (Bld) 0.5 % Normal [facility] Comment on above: Performed By: #### RICHELLE ANGULO, IPB #### [facility] (DEFAULT) [address] [place] [address] 38542 DIFF STATUS Electronic Differential Normal [facility] Comment on above: Performed By: #### Chaparrita MNOTEZ MGO, IPB #### [facility] (DEFAULT) [address] [place] [address] 51087 Eosinophils (Bld) [#/Vol] 0.11 10*3/uL Normal 0.00-0.42 [facility] Comment on above: Performed By: #### RICHELLE ANGULO, IPB #### [facility] (DEFAULT) [address] [place] [address] 95187 Eosinophils/100 WBC (Bld) 2.6 % Normal [facility] Comment on above: Performed By: #### RICHELLE ANGULO, IPB #### [facility] (DEFAULT) [address] [place] [address] 48705 Hematocrit (Bld) [Volume fraction] 26.4 % Low 34.9-44.3 [facility] Comment on above: Performed By: #### RICHELLE ANGULO, IPB #### [facility] (DEFAULT) [address] [place] [address] 89427 Hemoglobin (Bld) [Mass/Vol] 8.5 g/dL Low 11.4-15.2 [facility] Comment on above: Performed By: #### RICHELLE ANGULO, IPB #### [facility] (DEFAULT) [address] [place] [address] 66932 Immature Grans % 0.2 % Normal [facility] Comment on above: Performed By: #### RICHELLE ANGULO, IPB #### [facility] (DEFAULT) [address] [place] [address] 77735 Immature Grans Absolute <0.04 Normal <=0.09 [facility] Comment on above: Performed By: #### RICHELLE ANGULO, IPB #### [facility] (DEFAULT) [address] [place] [address] 60143 Lymphocytes (Bld) [#/Vol] 1.30 10*3/uL Normal 1.16-3.51 [facility] Comment on above: Performed By: #### Chaparrita MONTEZ MGO, IPB #### [facility] (DEFAULT) [address] [place] [address] 63915 Lymphocytes/100 WBC (Bld) 31.1 % Normal [facility] Comment on above: Performed By: #### Chaparrita HMDoron MGDaniela, IPB #### [facility] (DEFAULT) [address] [place] [address] 66198 MCV (RBC) [Entitic vol] 83.8 fL Normal 79.6-97.7 [facility] Comment on above: Result Comment: Resu lts inconsistent with previous results Performed By: #### RICHELLE ANGULO, IPB #### [facility] (DEFAULT) [address] [place] [address] 05595 Mean Cell Hgb 27.0 pg Normal 25.9-33.9 [facility] Comment on above: Performed By: #### Chaparrita CEE7 MGO, IPB #### [facility] (DEFAULT) [address] [place] [address] 53456 Mean Cell Hgb Conc 32.2 g/dL Normal 31.4-35.9 [facility] Comment on above: Performed By: #### C HMDoron MGO, IPB #### [facility] (DEFAULT) [address] [place] [address] 82055 Monocytes (Bld) [#/Vol] 0.40 10*3/uL Normal 0.22-0.87 [facility] Comment on above: Performed By: #### Chaparrita HM7, MGO, IPB #### [facility] (DEFAULT) [address] [place] [address] 62264 Monocytes/100 WBC (Bld) 9.6 % Normal [facility] Comment on above: Performed By: #### Chaparrita HM7, MGO, IPB #### [facility] (DEFAULT) [address] [place] [address] 11641 Nucleated RBC 0.0 /100 WBC Normal <=0.2 [facility] Comment on above: Performed By: #### Chaparrita HM7, MGO, IPB #### [facility] (DEFAULT) [address] [place] [address] 90728 Platelet mean volume (Bld) [Entitic vol] 8.6 fL Normal 8.5-12.2 [facility] Comment on above: Performed By: #### Chaparrita MONTEZ MGO, IPB #### [facility] (DEFAULT) [address] [place] [address] 49227 Platelets (Bld) [#/Vol] 300 10*3/uL Normal 150-393 [facility] Comment on above: Performed By: #### Chaparrita HM7, MGO, IPB #### [facility] (DEFAULT) [address] [place] [address] 12793 RBC (Bld) [#/Vol] 3.15 10*6/uL Low 3.91-5.04 [facility] Comment on above: Performed By: #### Chaparrita HM7, MGO, IPB #### [facility] (DEFAULT) [address] [place] [address] 48110 RBC Distribution 14.2 % Normal 10.8-14.9 [facility] Comment on above: Performed By: #### Chaparrita HMDoron, MGO, IPB #### [facility] (DEFAULT) [address] [place] [address] 47584 Segs + Bands Auto 56.0 % Normal [facility] Comment on above: Performed By: #### Chaparrita HM7, MGO, IPB #### [facility] (DEFAULT) [address] [place] [address] 13124 Segs + Bands,Absolute Auto 2.34 K/uL Normal 1.64-7.28 [facility] Comment on above: Performed By: #### Chaparrita HM7, MGO, IPB #### [facility] (DEFAULT) [address] [place] [address] 28254 WBC (Bld) [#/Vol] 4.18 10*3/uL Normal 3.99-11.19 [facility] Comment on above: Performed By: #### Chaparrita HM7, MGO, IPB #### [facility] (DEFAULT) [address] [place] [address] [facility] 7 - EDon 08-30-2021 Anion gap [Moles/Vol] 11 mmol/L Normal 7-17 [facility] Comment on above: Performed By: #### C 7ED ####[facility] (DEFAULT)[address] [place] [address] Chloride [Moles/Vol] 105 mmol/L Normal 98-108 [facility] Comment on above: Performed By: #### C 7ED ####[facility] (DEFAULT)[address] [place] [address] CO2 [Moles/Vol] 28 mmol/L Normal 22-30 [facility] Comment on above: Performed By: #### C 7ED ####[facility] (DEFAULT)[address] [place] [address] Creatinine [Mass/Vol] 0.97 mg/dL Normal 0.50-1.20 [facility] Comment on above: Performed By: #### C 7ED ####[facility] (DEFAULT)[address] [place] [address], [place] [address] EST GFR, >=60 Normal >=60 [facility] Comment on above: Performed By: #### C 7ED ####[facility] (DEFAULT)[address] [place] [address] EST GFR,Non 56 mL/min/1.73sqM Low >=60 [facility] Comment on above: Performed By: #### C 7ED ####[facility] (DEFAULT)[address] [place] [address], [place] [address] Glucose [Mass/Vol] 91 mg/dL Normal 70-99 [facility] Comment on above: Performed By: #### C 7ED ####[facility] (DEFAULT)[address] [place] [address] Osmolality [Osmolality] 294 mosm/kg Normal 278-305 [facility] Comment on above: Performed By: #### C 7ED ####[facility] (DEFAULT)[address] [place] [address], [place] [address] Potassium [Moles/Vol] 4.7 mmol/L Normal 3.5-5.0 [facility] Comment on above: Result Comment: Slig htly hemolyzed Performed By: #### C 7ED ####[facility] (DEFAULT)[address] [place] [address] 43852 Sodium [Moles/Vol] 139 mmol/L Normal 133-143 [facility] Comment on above: Performed By: #### Chaparrita 7ED ####[facility] (DEFAULT)[address] [place] [address] 43990 Urea nitrogen [Mass/Vol] 19 mg/dL Normal 7-22 [facility] Comment on above: Performed By: #### Chaparrita 7ED ####[facility] (DEFAULT)[address] [place] [address] 82668 Urea nitrogen/Creatinine [Mass ratio] 20 mg/mg Normal [facility] Comment on above: Performed By: #### Chaparrita 7ED ####[facility] (DEFAULT)[address] [place] [address] 20435 HEMOGLOBIN & HEMATOCRITon Hematocrit (Bld) [Volume fraction] 25.9 % Low 34.9-44.3 [facility] Comment on above: Performed By: #### X M #### [facility] (DEFAULT) [address] [place] [address] 80481 Hemoglobin (Bld) [Mass/Vol] 8.1 g/dL Low 11.4-15.2 [facility] Comment on above: Performed By: #### X M #### [facility] (DEFAULT) [address] [place] [address] 17048 Hematocrit (Bld) [Volume fraction] 27.6 % Low 34.9-44.3 [facility] Comment on above: Performed By: #### RICHELLE ANGULO, IPB #### [facility] (DEFAULT) [address] [place] [address] 75303 Hemoglobin (Bld) [Mass/Vol] 9.0 g/dL Low 11.4-15.2 [facility] Comment on above: Performed By: #### RICHELLE ANGULO, IPB #### [facility] (DEFAULT) [address] [place] [address] 99754 Hematocrit (Bld) [Volume fraction] 26.1 % Low 34.9-44.3 [facility] Comment on above: Performed By: #### RICHELLE ANGULO, IPB #### [facility] (DEFAULT) [address] [place] [address] 81920 Hemoglobin (Bld) [Mass/Vol] 8.5 g/dL Low 11.4-15.2 [facility] Comment on above: Performed By: #### RICHELLE ANGULO, IPB #### [facility] (DEFAULT) [address] [place] [address] 71629 HEPATIC FUNCTION PANELon Albumin [Mass/Vol] 3.6 g/dL Normal 3.5-5.0 [facility] Comment on above: Performed By: #### RICHELLE ANGULO, IPB #### [facility] (DEFAULT) [address] [place] [address] 19732 ALP [Catalytic activity/Vol] 60 U/L Normal 32-126 [facility] Comment on above: Performed By: #### RICHELLE ANGULO, IPB #### [facility] (DEFAULT) [address] [place] [address] 35009 ALT [Catalytic activity/Vol] 13 U/L Normal 9-48 [facility] Comment on above: Result Comment: Slig htly hemolyzed Performed By: #### RICHELLE ANGULO, IPB #### [facility] (DEFAULT) [address] [place] [address] 58406 AST [Catalytic activity/Vol] 29 U/L Normal 14-40 [facility] Comment on above: Result Comment: Slig htly hemolyzed Performed By: #### C HM7, MGO, IPB #### [facility] (DEFAULT) [address] [place] [address] 51074 Bilirubin [Mass/Vol] 0.3 mg/dL Normal <1.5 [facility] Comment on above: Result Comment: Slig htly hemolyzed Performed By: #### C HM7, MGO, IPB #### [facility] (DEFAULT) [address] [place] [address] 95958 Bilirubin.indirect [Mass/Vol] 0.1 mg/dL Normal <0.3 [facility] Comment on above: Result Comment: Slig htly hemolyzed Performed By: #### C HM7, MGO, IPB #### [facility] (DEFAULT) [address] [place] [address] 06694 Protein [Mass/Vol] 5.7 g/dL Low 6.4-8.3 [facility] Comment on above: Performed By: #### Chaparrita HM7, MGO, IPB #### [facility] (DEFAULT) [address] [place] [address] 00196 NOVEL CORONAVIRUS PCRon 12-2 SARS-CoV-2 (COVID-19) RNA LATOYA+probe Ql (Unsp spec) Not detected Normal NOT DETECTED [facility] Comment on above: Order Comment: Viral transport [...] for use by authorized laboratories. Result Comment: [facility] Negative results do not [...] deteriorating. Performed By: #### C HM6 #### [facility] (DEFAULT) [address] [place] [address] 09543 PROTIME-INRon 08-30-2021 INR Coag (PPP) [Relative time] 1.0 {INR} Normal 0.9-1.1 [facility] Comment on above: Performed By: #### X M #### [facility] (DEFAULT) [address] [place] [address] 96645 PT Coag (PPP) [Time] 12.9 s Normal 11.9-14.2 [facility] Comment on above: Performed By: #### X M #### [facility] (DEFAULT) [address] [place] [address] 92636 TYPE AND SCREENon 08-30-2021 ABO/RH(D) TYPE Positive Normal [facility] Comment on above: Result Comment: @ 07:51 by AM1: Performed By: #### X M #### [facility] (DEFAULT) [address] [place] [address] 33210 Absolute lymphocyte counton 08-29-2021 Lymphocytes Auto (Unsp spec) [#/Vol] 1.61 10*3/uL 0.83-4.51 [facility] Work Phone: Basophil percentageon 2020 Bilirubin [Mass/Vol] 0.20 mg/dL 0.20-1.00 [facility] Work Phone: Comment on above: For patients on eltr ombopag therapy, use of [employer] [place] TBIL is not recommended. Chloride [Moles/Vol] 101 mmol/L 98-107 [facility] Work Phone: Eosinophils/100 WBC (Bld) 1.2 % 0-5 [facility] Work Phone: Glucose [Mass/Vol] 84 mg/dL 74-106 [facility] Work Phone: Comment on above: Please note revised GLUCOSE reference range effective 2017. Lactate [Moles/Vol] 1.0 mmol/L 0.4-2.0 [facility] Work Phone: Neutrophils (Bld) [#/Vol] 2.9 10*3/uL 2.0-7.7 [facility] Work Phone: Potassium [Moles/Vol] 3.2 mmol/L 3.5-5.1 [facility] Work Phone: Protein [Mass/Vol] 6.8 g/dL 6.4-8.2 [facility] Work Phone: Sodium [Moles/Vol] 138 mmol/L 136-145 [facility] Work Phone: WBC (Bld) [#/Vol] 5.2 10*3/uL 4.4-11.0 [facility] Work Phone: Blood erythrocytes count (nu mber/volume)on 08-29-2021 RBC (Bld) [#/Vol] 3.50 10*6/uL 4.2-5.4 [facility] Work Phone: Blood hemoglobin measurement (mass/volume)on 08-29-2021 Hemoglobin (Bld) [Mass/Vol] 9.6 g/dL 12.0-15.0 [facility] Work Phone: Blood lymphocytes/100 leukoc yteson 08-29-2021 Lymphocytes/100 WBC (Bld) 31.1 % 19-41 [facility] Work Phone: Blood monocytes/100 leukocyt eson 08-29-2021 Monocytes/100 WBC (Bld) 11.2 % 0-10 [facility] Work Phone: Blood platelet mean volumeon 08-29-2021 Platelet mean volume (Bld) [Entitic vol] 8.4 fL 6.2-12.0 [facility] Work Phone: Determination of erythrocyte mean corpuscular volume (MCV)on 08-29-2021 MCV (RBC) [Entitic vol] 85.4 fL 81-99 [facility] Work Phone: Direct bilirubinon Bilirubin.direct [Mass/Vol] 0.07 mg/dL 0.00-0.30 [facility] Work Phone: Hematocrit Auto (Bld) [Volum e fraction]on 08-29-2021 Hematocrit (Bld) [Volume fraction] 29.9 % 37-47 [facility] Work Phone: INR in Blood by Coagulation assayon 08-29-2021 INR Coag (Bld) [Relative time] 1.0 {INR} [facility] Work Phone: Laboratory - Chemistry and C hemistry - challengeon 08-29-2021 ALP [Catalytic activity/Vol] 87 U/L 45-117 [facility] Work Phone: ALT [Catalytic activity/Vol] 24 U/L 13-56 [facility] Work Phone: CO2 [Moles/Vol] 31.0 mmol/L 21.0-32.0 [facility] Work Phone: Globulin (S) [Mass/Vol] 3.6 g/dL 2.2-4.2 [facility] Work Phone: Lipase [Catalytic activity/Vol] 137 U/L 73-393 [facility] Work Phone: Urea nitrogen/Creatinine [Mass ratio] 24.3 mg/mg 10-20 [facility] Work Phone: Laboratory - Coagulationon 1 10-30-2020 aPTT Coag (Bld) [Time] 29.9 s 24.1-36.2 [facility] Work Phone: PT Coag (PPP) [Time] 12.5 s 11.7-14.[address] [facility] Work Phone: Laboratory - Hematology and Cell countson 08-29-2021 Basophils/100 WBC (Unsp spec) 0.4 % 0-1 [facility] Work Phone: Erythrocyte distribution width (RBC) [Entitic vol] 43.4 fL 35.1-43.9 [facility] Work Phone: Erythrocyte distribution width (RBC) [Ratio] 14.0 % 11.6-14.6 [facility] Work Phone: Immature granulocytes/100 WBC (Bld) 0.200 % 0.0-0.9 [facility] Work Phone: Comment on above: IG% - Immature Granu locytes (promyelocytes, myelocytes and metamyelocytes) > 1% indicates that a LEFT SHIFT is Present. MCH (RBC) [Entitic mass] 27.4 pg 27.0-32.0 [facility] Work Phone: Neutrophils/100 WBC (Bld) 55.9 % 47-70 [facility] Work Phone: Nucleated RBC/100 WBC (Bld) [Ratio] 0 % 0-5 [facility] Work Phone: Lower GI hemoglobin IA Ql (S tl)on 08-29-2021 Stool Occult Blood (ASHA) Positive [facility] Work Phone: MCHC Auto (RBC) [Mass/Vol]on 08-29-2021 MCHC (RBC) [Mass/Vol] 32.1 g/dL 32-36 [facility] No Panel Informationon 08-29 Estimated Creatinine Clearance Calc 37.60 ml/min [facility] Work Phone: Estimated GFR (MDRD) Amer 67 mL/min >60 [facility] Work Phone: Comment on above: GFR Calc Estimated GFR (MDRD) Non-Af Amer 55 mL/min >60 [facility] Work Phone: Comment on above: Non- GFR Calc Platelets bldon 08-29-2021 Platelets (Bld) [#/Vol] 345 10*3/uL 150-450 [facility] Work Phone: Serum or plasma albumin santiago urement (mass/volume)on 08-29-2021 Albumin [Mass/Vol] 3.2 g/dL 3.2-5.0 [facility] Work Phone: Serum or plasma calcium santiago urement (mass/volume)on 08-29-2021 Calcium [Mass/Vol] 8.9 mg/dL 8.5-10.1 [facility] Work Phone: Serum or plasma creatinine m easurement (mass/volume)on 08-29-2021 Creatinine [Mass/Vol] 1.03 mg/dL 0.55-1.02 [facility] Work Phone: Comment on above: The validity of the calculated GFR & GFRAA in patients over 70 years has not been determined. Clinical correlation is essential. Serum or plasma urea nitroge n measurement (mass/volume)on 08-29-2021 Urea nitrogen [Mass/Vol] 25 mg/dL 7-18 [facility] Work Phone: Thin prep Papanicolaou smear with manual screeningon 08-29-2021 Thin prep Papanicolaou smear with manual screening 19 U/L 15-37 [facility] Work Phone: Thin prep Papanicolaou smear with manual screening 6 5-15 [facility] Work Phone: Absolute lymphocyte counton 08-25-2021 Lymphocytes Auto (Unsp spec) [#/Vol] 1.05 10*3/uL 0.83-4.51 [facility] Work Phone: Basophil percentageon 2020 Bilirubin [Mass/Vol] 0.30 mg/dL 0.20-1.00 [facility] Work Phone: Comment on above: For patients on eltr ombopag therapy, use of Dimension [place] TBIL is not recommended. Cholesterol [Mass/Vol] 185 mg/dL <200 [facility] Work Phone: Comment on above: <200 mg/dL Desirable 200-240 mg/dL Borderline >240 mg/dL High Risk Eosinophils/100 WBC (Bld) 1.7 % 0-5 [facility] Work Phone: Neutrophils (Bld) [#/Vol] 3.1 10*3/uL 2.0-7.7 [facility] Work Phone: Protein [Mass/Vol] 7.1 g/dL 6.4-8.2 [facility] Work Phone: Triglyceride [Mass/Vol] 129 mg/dL [facility] Work Phone: Comment on above: The drugs N-Acetylcy steine and Metamizole may falsely depress this assay.Serum Triglycerides Reference Interval Normal <150 mg/dL Borderline high 150 - 199 mg/dL High 200 - 499 mg/dL Very High > or = 500 mg/dL WBC (Bld) [#/Vol] 4.6 10*3/uL 4.4-11.0 [facility] Work Phone: Blood erythrocytes count (nu mber/volume)on 08-25-2021 RBC (Bld) [#/Vol] 3.70 10*6/uL 4.2-5.4 [facility] Work Phone: Blood hemoglobin measurement (mass/volume)on 08-25-2021 Hemoglobin (Bld) [Mass/Vol] 10.2 g/dL 12.0-15.0 [facility] Work Phone: Blood lymphocytes/100 leukoc yteson 08-25-2021 Lymphocytes/100 WBC (Bld) 22.9 % 19-41 [facility] Work Phone: Blood monocytes/100 leukocyt eson 08-25-2021 Monocytes/100 WBC (Bld) 7.2 % 0-10 [facility] Work Phone: Blood platelet mean volumeon 08-25-2021 Platelet mean volume (Bld) [Entitic vol] 8.4 fL 6.2-12.0 [facility] Work Phone: Determination of erythrocyte mean corpuscular volume (MCV)on 08-25-2021 MCV (RBC) [Entitic vol] 88.1 fL 81-99 [facility] Work Phone: Direct bilirubinon Bilirubin.direct [Mass/Vol] 0.07 mg/dL 0.00-0.30 [facility] Work Phone: Hematocrit Auto (Bld) [Volum e fraction]on 08-25-2021 Hematocrit (Bld) [Volume fraction] 32.6 % 37-47 [facility] Work Phone: Laboratory - Chemistry and C hemistry - challengeon 08-25-2021 ALP [Catalytic activity/Vol] 96 U/L 45-117 [facility] Work Phone: ALT [Catalytic activity/Vol] 28 U/L 13-56 [facility] Work Phone: Globulin (S) [Mass/Vol] 3.7 g/dL 2.2-4.2 [facility] Work Phone: Laboratory - Hematology and Cell countson 08-25-2021 Basophils/100 WBC (Unsp spec) 0.7 % 0-1 [facility] Work Phone: Erythrocyte distribution width (RBC) [Entitic vol] 44.8 fL 35.1-43.9 [facility] Work Phone: Erythrocyte distribution width (RBC) [Ratio] 13.8 % 11.6-14.6 [facility] Work Phone: Immature granulocytes/100 WBC (Bld) 0.200 % 0.0-0.9 [facility] Work Phone: Comment on above: IG% - Immature Granu locytes (promyelocytes, myelocytes and metamyelocytes) > 1% indicates that a LEFT SHIFT is Present. MCH (RBC) [Entitic mass] 27.6 pg 27.0-32.0 [facility] Work Phone: Neutrophils/100 WBC (Bld) 67.3 % 47-70 [facility] Work Phone: Nucleated RBC/100 WBC (Bld) [Ratio] 0 % 0-5 [facility] Work Phone: MCHC Auto (RBC) [Mass/Vol]on 08-25-2021 MCHC (RBC) [Mass/Vol] 31.3 g/dL 32-36 [facility] Work Phone: Platelets bldon 08-25-2021 Platelets (Bld) [#/Vol] 383 10*3/uL 150-450 [facility] Work Phone: Serum or plasma albumin santiago urement (mass/volume)on 08-25-2021 Albumin [Mass/Vol] 3.4 g/dL 3.2-5.0 [facility] Work Phone: Serum or plasma cholesterol in HDL measurement (mass/volume)on 08-25-2021 Cholesterol in HDL [Mass/Vol] 77 mg/dL [facility] Work Phone: Comment on above: The drugs N-Acetylcy steine and Metamizole may falsely depress this assay. Reference Range HDL <40 mg/dL Low HDL Cholesterol HDL >or= 60 mg/dL High HDL Cholesterol Serum or plasma cholesterol in VLDL measurement (mass/volume)on 08-25-2021 Cholesterol in VLDL [Mass/Vol] 26 mg/dL 5-40 [facility] Work Phone: Serum or plasma low density lipoprotein (LDL) cholesterol measurement (mass/volume)on 08-25-2021 Cholesterol in LDL [Mass/Vol] 82 mg/dL 0-130 [facility] Work Phone: Thin prep Papanicolaou smear with manual screeningon 08-25-2021 Thin prep Papanicolaou smear with manual screening 24 U/L 15-37 [facility] Work Phone: CBC,PLATELETSon 08-18-2021 Hematocrit (Bld) [Volume fraction] 26.5 % Low 34.9-44.3 [facility] Comment on above: Performed By: #### RICHELLE ANGULO, IPB #### U [facility] (DEFAULT) [address] [place] [address]07 Hemoglobin (Bld) [Mass/Vol] 8.7 g/dL Low 11.4-15.2 [facility] Comment on above: Performed By: #### RICHELLE ANGULO, IPB #### [facility] (DEFAULT) [address] [place] [address] 57123 MCV (RBC) [Entitic vol] 88.3 fL Normal 79.6-97.7 [facility] Comment on above: Performed By: #### RICHELLE ANGULO, IPB #### [facility] (DEFAULT) [address] [place] [address] 18860 Mean Cell Hgb 29.0 pg Normal 25.9-33.9 [facility] Comment on above: Performed By: #### Chaparrita MONTEZ MGDaniela, IPB #### [facility] (DEFAULT) [address] [place] [address] 32708 Mean Cell Hgb Conc 32.8 g/dL Normal 31.4-35.9 [facility] Comment on above: Performed By: #### Chaparrita MONTEZ MGDaniela, IPB #### [facility] (DEFAULT) [address] [address] Platelet mean volume (Bld) [Entitic vol] 8.6 fL Normal 8.5-12.2 [facility] Comment on above: Performed By: #### Chaparrita MONTEZ MGO, IPB #### [facility] (DEFAULT) [address] [place] [address] 76512 Platelets (Bld) [#/Vol] 271 10*3/uL Normal 150-393 [facility] Comment on above: Performed By: #### Chaparrita CEE7 MGDaniela, IPB #### [facility] (DEFAULT) [address] [place] [address] 90662 RBC (Bld) [#/Vol] 3.00 10*6/uL Low 3.91-5.04 [facility] Comment on above: Performed By: #### C HM7 MGO, IPB #### [facility] (DEFAULT) [address] [place] [address] 60030 RBC Distribution 13.4 % Normal 10.8-14.9 [facility] Comment on above: Performed By: #### Chaparrita HM7, MGO, IPB #### [facility] (DEFAULT) [address] [place] [address] 51268 WBC (Bld) [#/Vol] 4.12 10*3/uL Normal 3.99-11.19 [facility] Comment on above: Performed By: #### RICHELLE ANGULO, IPB #### [facility] (DEFAULT) [address] [place] [address] 73214 CHEM 6 (LYTES, BUN CREA)on 1 10-19-2020 Anion gap [Moles/Vol] 13 mmol/L Normal 7-17 [facility] Comment on above: Performed By: #### C HM6 ####[facility] (DEFAULT)[address] [place] [address] 32199 Chloride [Moles/Vol] 108 mmol/L Normal 98-108 [facility] Comment on above: Performed By: #### C HM6 ####[facility] (DEFAULT)[address] [place] [address] 14060 CO2 [Moles/Vol] 24 mmol/L Normal 22-30 [facility] Comment on above: Performed By: #### C HM6 ####[facility] (DEFAULT)[address] [place] [address] Creatinine [Mass/Vol] 0.81 mg/dL Normal 0.50-1.20 [facility] Comment on above: Performed By: #### C HM6 ####[facility] (DEFAULT)[address] [place] [address] EST GFR, >=60 Normal >=60 [facility] Comment on above: Performed By: #### C HM6 ####[facility] (DEFAULT)[address] [place] [address] EST GFR,Non >=60 Normal >=60 [facility] Comment on above: Performed By: #### C HM6 ####[facility] (DEFAULT)[address] [place] [address] Potassium [Moles/Vol] 4.0 mmol/L Normal 3.5-5.0 [facility] Comment on above: Performed By: #### C HM6 ####[facility] (DEFAULT)[address] [place] [address] Sodium [Moles/Vol] 141 mmol/L Normal 133-143 [facility] Comment on above: Performed By: #### C HM6 ####[facility] (DEFAULT)[address] [place] [address] Urea nitrogen [Mass/Vol] 13 mg/dL Normal 7-22 [facility] Comment on above: Performed By: #### C HM6 ####[facility] (DEFAULT)[address] [place] [address] Urea nitrogen/Creatinine [Mass ratio] 16 mg/mg Normal [facility] Comment on above: Performed By: #### C HM6 ####[facility] (DEFAULT)[address] [place] [address] CBC,PLATELETSon 08-17-2021 Hematocrit (Bld) [Volume fraction] 25.7 % Low 34.9-44.3 [facility] Comment on above: Performed By: #### C DIFP #### [facility] (DEFAULT) [address] [address] Hemoglobin (Bld) [Mass/Vol] 8.4 g/dL Low 11.4-15.2 [facility] Comment on above: Performed By: #### C DIFP #### [facility] (DEFAULT) [address] [place] [address] 02023 MCV (RBC) [Entitic vol] 88.3 fL Normal 79.6-97.7 [facility] Comment on above: Performed By: #### C DIFP #### [facility] (DEFAULT) [address] [address] Mean Cell Hgb 28.9 pg Normal 25.9-33.9 [facility] Comment on above: Performed By: #### C DIFP #### [facility] (DEFAULT) [address] [address] Mean Cell Hgb Conc 32.7 g/dL Normal 31.4-35.9 [facility] Comment on above: Performed By: #### C DIFP #### [facility] (DEFAULT) [address] [place] [address] Platelet mean volume (Bld) [Entitic vol] 8.7 fL Normal 8.5-12.2 [facility] Comment on above: Performed By: #### C DIFP #### [facility] (DEFAULT) [address] [place] [address] 48457 Platelets (Bld) [#/Vol] 253 10*3/uL Normal 150-393 [facility] Comment on above: Performed By: #### C DIFP #### [facility] (DEFAULT) [address] [place] [address] 53296 RBC (Bld) [#/Vol] 2.91 10*6/uL Low 3.91-5.04 [facility] Comment on above: Performed By: #### C DIFP #### [facility] (DEFAULT) [address] [place] [address] 06069 RBC Distribution 13.3 % Normal 10.8-14.9 [facility] Comment on above: Performed By: #### C DIFP #### [facility] (DEFAULT) [address] [place] [address] 31729 WBC (Bld) [#/Vol] 4.87 10*3/uL Normal 3.99-11.19 [facility] Comment on above: Performed By: #### C DIFP #### [facility] (DEFAULT) [address] [place] [address] 42428 CHEM 6 (LYTES, BUN CREA)on 10-18-2020 Anion gap [Moles/Vol] 9 mmol/L Normal 7-17 [facility] Comment on above: Performed By: #### C DIFP #### [facility] (DEFAULT) [address] [place] [address] 32846 Chloride [Moles/Vol] 107 mmol/L Normal 98-108 [facility] Comment on above: Performed By: #### C DIFP #### [facility] (DEFAULT) [address] [place] [address] 23504 CO2 [Moles/Vol] 29 mmol/L Normal 22-30 [facility] Comment on above: Performed By: #### C DIFP #### [facility] (DEFAULT) [address] [place] [address] 89927 Creatinine [Mass/Vol] 1.01 mg/dL Normal 0.50-1.20 [facility] Comment on above: Performed By: #### C DIFP #### [facility] (DEFAULT) [address] [place] [address] 520[address] EST GFR, >=60 Normal >=60 [facility] Comment on above: Performed By: #### C DIFP #### [facility] (DEFAULT) [address] [place] [address] EST GFR,Non 53 mL/min/1.73sqM Low >=60 [facility] Comment on above: Performed By: #### C DIFP #### [facility] (DEFAULT) [address] [place] [address] 73252 Potassium [Moles/Vol] 3.9 mmol/L Normal 3.5-5.0 [facility] Comment on above: Performed By: #### C DIFP #### [facility] (DEFAULT) [address] [place] [address] 43066 Sodium [Moles/Vol] 141 mmol/L Normal 133-143 [facility] Comment on above: Performed By: #### C DIFP #### [facility] (DEFAULT) [address] [place] [address] 57198 Urea nitrogen [Mass/Vol] 13 mg/dL Normal 7-22 [facility] Comment on above: Performed By: #### C DIFP #### [facility] (DEFAULT) [address] [place] [address] 05609 Urea nitrogen/Creatinine [Mass ratio] 13 mg/mg Normal [facility] Comment on above: Performed By: #### C DIFP #### [facility] (DEFAULT) [address] [place] [address] 97839 PLATELET COUNTon 08-17-2021 Platelet mean volume (Bld) [Entitic vol] 8.8 fL Normal 8.5-12.2 [facility] Comment on above: Performed By: #### C HM7, MGO, IPB #### [facility] (DEFAULT) [address] [place] [address] 23335 Platelets (Bld) [#/Vol] 330 10*3/uL Normal 150-393 [facility] Comment on above: Performed By: #### C HM7, MGO, IPB #### [facility] (DEFAULT) [address] [place] [address] 99508 CBC,PLATELETSon 08-16-2021 Hematocrit (Bld) [Volume fraction] 26.2 % Low 34.9-44.3 [facility] Comment on above: Performed By: #### X M #### [facility] (DEFAULT) [address] [address] Hemoglobin (Bld) [Mass/Vol] 8.5 g/dL Low 11.4-15.2 [facility] Comment on above: Performed By: #### X M #### Dave [facility] (DEFAULT) [address] [address] MCV (RBC) [Entitic vol] 89.7 fL Normal 79.6-97.7 [facility] Comment on above: Performed By: #### X M #### [facility] (DEFAULT) [address] [address] Mean Cell Hgb 29.1 pg Normal 25.9-33.9 [facility] Comment on above: Performed By: #### X M #### [facility] (DEFAULT) [address] [address] Mean Cell Hgb Conc 32.4 g/dL Normal 31.4-35.9 [facility] Comment on above: Performed By: #### X M #### [facility] (DEFAULT) [address] [address] Platelet mean volume (Bld) [Entitic vol] 8.6 fL Normal 8.5-12.2 [facility] Comment on above: Performed By: #### X M #### [facility] (DEFAULT) [address] [address] Platelets (Bld) [#/Vol] 251 10*3/uL Normal 150-393 [facility] Comment on above: Performed By: #### X M #### [facility] (DEFAULT) [address] [place] [address] 03979 RBC (Bld) [#/Vol] 2.92 10*6/uL Low 3.91-5.04 [facility] Comment on above: Performed By: #### X M #### [facility] (DEFAULT) [address] [place] [address] 30125 RBC Distribution 13.2 % Normal 10.8-14.9 [facility] Comment on above: Performed By: #### X M #### [facility] (DEFAULT) [address] [place] [address] 46596 WBC (Bld) [#/Vol] 5.44 10*3/uL Normal 3.99-11.19 [facility] Comment on above: Performed By: #### X M #### [facility] (DEFAULT) [address] [place] [address] 02126 CHEM 6 (LYTES, BUN CREA)on 10-17-2020 Anion gap [Moles/Vol] 10 mmol/L Normal 7-17 [facility] Comment on above: Performed By: #### X M #### [facility] (DEFAULT) [address] [place] [address] 71451 Chloride [Moles/Vol] 107 mmol/L Normal 98-108 [facility] Comment on above: Performed By: #### X M #### [facility] (DEFAULT) [address] [place] [address] 55548 CO2 [Moles/Vol] 28 mmol/L Normal 22-30 [facility] Comment on above: Performed By: #### X M #### [facility] (DEFAULT) [address] [place] [address] 33251 Creatinine [Mass/Vol] 0.93 mg/dL Normal 0.50-1.20 [facility] Comment on above: Performed By: #### X M #### [facility] (DEFAULT) [address] [place] [address] 22258 EST GFR, >=60 Normal >=60 [facility] Comment on above: Performed By: #### X M #### [facility] (DEFAULT) [address] [place] [address] 07081 EST GFR,Non 59 mL/min/1.73sqM Low >=60 [facility] Comment on above: Performed By: #### X M #### [facility] (DEFAULT) [address] [place] [address] 83847 Potassium [Moles/Vol] 3.9 mmol/L Normal 3.5-5.0 [facility] Comment on above: Performed By: #### X M #### [facility] (DEFAULT) [address] [place] [address] 50802 Sodium [Moles/Vol] 141 mmol/L Normal 133-143 [facility] Comment on above: Performed By: #### X M #### [facility] (DEFAULT) [address] [place] [address] 20517 Urea nitrogen [Mass/Vol] 13 mg/dL Normal 7-22 [facility] Comment on above: Performed By: #### X M #### [facility] (DEFAULT) [address] [place] [address] 97899 Urea nitrogen/Creatinine [Mass ratio] 14 mg/mg Normal [facility] Comment on above: Performed By: #### X M #### [facility] (DEFAULT) [address] [place] [address] 71004 CBC,PLATELETSon 08-15-2021 Hematocrit (Bld) [Volume fraction] 25.6 % Low 34.9-44.3 [facility] Comment on above: Performed By: #### C HMRICHELLE Sal, IPB #### Dave [facility] (DEFAULT) [address] [place] [address] 40438 Hemoglobin (Bld) [Mass/Vol] 8.3 g/dL Low 11.4-15.2 [facility] Comment on above: Performed By: #### Chaparrita HM7, MGO, IPB #### [facility] (DEFAULT) [address] [place] [address] 37395 MCV (RBC) [Entitic vol] 88.3 fL Normal 79.6-97.7 [facility] Comment on above: Performed By: #### Chaparrita HM7, MGO, IPB #### [facility] (DEFAULT) [address] [place] [address] 14526 Mean Cell Hgb 28.6 pg Normal 25.9-33.9 [facility] Comment on above: Performed By: #### Chaparrita HM7, MGO, IPB #### [facility] (DEFAULT) [address] [place] [address] 11791 Mean Cell Hgb Conc 32.4 g/dL Normal 31.4-35.9 [facility] Comment on above: Performed By: #### Chaparrita HM7, MGO, IPB #### [facility] (DEFAULT) [address] [place] [address] 00727 Platelet mean volume (Bld) [Entitic vol] 8.4 fL Low 8.5-12.2 [facility] Comment on above: Performed By: #### Chaparrita HM7, MGO, IPB #### [facility] (DEFAULT) [address] [place] [address] 87811 Platelets (Bld) [#/Vol] 256 10*3/uL Normal 150-393 [facility] Comment on above: Performed By: #### Chaparrita HM7, MGO, IPB #### [facility] (DEFAULT) [address] [place] [address] 61803 RBC (Bld) [#/Vol] 2.90 10*6/uL Low 3.91-5.04 [facility] Comment on above: Performed By: #### Chaparrita HM7, MGO, IPB #### [facility] (DEFAULT) [address] [place] [address] 51053 RBC Distribution 13.3 % Normal 10.8-14.9 [facility] Comment on above: Performed By: #### Chaparrita HM7, MGO, IPB #### [facility] (DEFAULT) [address] [place] [address] 51508 WBC (Bld) [#/Vol] 4.97 10*3/uL Normal 3.99-11.19 [facility] Comment on above: Performed By: #### Chaparrita MONTEZ MGO, IPB #### [facility] (DEFAULT) [address] [place] [address] 36387 CHEM 6 (LYTES, BUN CREA)on 1 10-16-2020 Anion gap [Moles/Vol] 10 mmol/L Normal 7-17 [facility] Comment on above: Performed By: #### C HM7, MGO, IPB #### [facility] (DEFAULT) [address] [place] [address] 50345 Chloride [Moles/Vol] 106 mmol/L Normal 98-108 [facility] Comment on above: Performed By: #### Chaparrita HM7 MGO, IPB #### [facility] (DEFAULT) [address] [place] [address] 25291 CO2 [Moles/Vol] 27 mmol/L Normal 22-30 [facility] Comment on above: Performed By: #### Chaparrita MONTEZ MGO, IPB #### [facility] (DEFAULT) [address] [place] [address] 78990 Creatinine [Mass/Vol] 0.89 mg/dL Normal 0.50-1.20 [facility] Comment on above: Performed By: #### Chaparrita HM7, MGO, IPB #### [facility] (DEFAULT) [address] [place] [address] [id number] EST GFR, >=60 Normal >=60 [facility] Comment on above: Performed By: #### Chaparrita HM7, MGO, IPB #### [facility] (DEFAULT) [address] [place] [address] 46497 EST GFR,Non >=60 Normal >=60 [facility] Comment on above: Performed By: #### Chaparrita HM7, MGO, IPB #### [facility] (DEFAULT) [address] [place] [address] 12385 Potassium [Moles/Vol] 4.0 mmol/L Normal 3.5-5.0 [facility] Comment on above: Performed By: #### C HM7, MGO, IPB #### [facility] (DEFAULT) [address] [place] [address] 77256 Sodium [Moles/Vol] 139 mmol/L Normal 133-143 [facility] Comment on above: Performed By: #### C HM7, MGO, IPB #### [facility] (DEFAULT) [address] [place] [address] 12760 Urea nitrogen [Mass/Vol] 14 mg/dL Normal 7-22 [facility] Comment on above: Performed By: #### C HM7, MGO, IPB #### [facility] (DEFAULT) [address] [place] [address] 65605 Urea nitrogen/Creatinine [Mass ratio] 16 mg/mg Normal [facility] Comment on above: Performed By: #### Chaparrita HMDoron, MGO, IPB #### [facility] (DEFAULT) [address] [place] [address] 19184 CBC,PLATELETSon 08-14-2021 Hematocrit (Bld) [Volume fraction] 25.1 % Low 34.9-44.3 [facility] Comment on above: Performed By: #### H EMO #### [facility] (DEFAULT) [address] [place] [address] 56365 Hemoglobin (Bld) [Mass/Vol] 8.2 g/dL Low 11.4-15.2 [facility] Comment on above: Result Comment: Resu lts inconsistent with previous results Performed By: #### H EMOGC #### [facility] (DEFAULT) [address] [place] [address] 36938 MCV (RBC) [Entitic vol] 89.0 fL Normal 79.6-97.7 [facility] Comment on above: Performed By: #### H EMOGC #### [facility] (DEFAULT) [address] [place] [address] 40936 Mean Cell Hgb 29.1 pg Normal 25.9-33.9 [facility] Comment on above: Performed By: #### H EMOGC #### [facility] (DEFAULT) [address] [place] [address] 03824 Mean Cell Hgb Conc 32.7 g/dL Normal 31.4-35.9 [facility] Comment on above: Performed By: #### H EMOGC #### [facility] (DEFAULT) [address] [place] [address] 54994 Platelet mean volume (Bld) [Entitic vol] 8.4 fL Low 8.5-12.2 [facility] Comment on above: Performed By: #### H EMOGC #### [facility] (DEFAULT) [address] [place] [address] 73794 Platelets (Bld) [#/Vol] 226 10*3/uL Normal 150-393 [facility] Comment on above: Performed By: #### H EMOGC #### [facility] (DEFAULT) [address] [place] [address] 45025 RBC (Bld) [#/Vol] 2.82 10*6/uL Low 3.91-5.04 [facility] Comment on above: Performed By: #### H EMOGC #### [facility] (DEFAULT) [address] [place] [address] 65522 RBC Distribution 13.3 % Normal 10.8-14.9 [facility] Comment on above: Performed By: #### H EMOGC #### [facility] (DEFAULT) [address] [place] [address] 48361 WBC (Bld) [#/Vol] 5.21 10*3/uL Normal 3.99-11.19 [facility] Comment on above: Performed By: #### H EMOGC #### [facility] (DEFAULT) [address] [place] [address] 31801 CHEM 6 (LYTES, BUN CREA)on 1 10-15-2020 Anion gap [Moles/Vol] 10 mmol/L Normal 7-17 [facility] Comment on above: Performed By: #### C HM6 ####[facility] (DEFAULT)[address] [place] [address] Chloride [Moles/Vol] 106 mmol/L Normal 98-108 [facility] Comment on above: Performed By: #### C HM6 ####[facility] (DEFAULT)[address] [place] [address] CO2 [Moles/Vol] 27 mmol/L Normal 22-30 [facility] Comment on above: Performed By: #### C HM6 ####[facility] (DEFAULT)[address] [place] [address] Creatinine [Mass/Vol] 0.68 mg/dL Normal 0.50-1.20 [facility] Comment on above: Performed By: #### C HM6 ####[facility] (DEFAULT)[address] [place] [address] EST GFR, >=60 Normal >=60 [facility] Comment on above: Performed By: #### C HM6 ####[facility] (DEFAULT)[address] [place] [address] EST GFR,Non >=60 Normal >=60 [facility] Comment on above: Performed By: #### C HM6 ####[facility] (DEFAULT)[address] [place] [address] Potassium [Moles/Vol] 3.6 mmol/L Normal 3.5-5.0 [facility] Comment on above: Performed By: #### C HM6 ####[facility] (DEFAULT)[address] [place] [address] Sodium [Moles/Vol] 139 mmol/L Normal 133-143 [facility] Comment on above: Performed By: #### C HM6 ####[facility] (DEFAULT)[address] [place] [address] Urea nitrogen [Mass/Vol] 11 mg/dL Normal 7-22 [facility] Comment on above: Performed By: #### C HM6 ####[facility] (DEFAULT)[address] [place] [address] Urea nitrogen/Creatinine [Mass ratio] 16 mg/mg Normal [facility] Comment on above: Performed By: #### C HM6 ####[facility] (DEFAULT)[address] [place] [address] CT ENTEROGRAPHYon 08-14-2021 CT ENTEROGRAPHY EXAM: CT [...] 4. Ancillary findings as described above. Normal [facility] C DIFFICILE BY PCR (CLOSTRID IUM DIFFICILE TOXIN)on 08-13-2021 C Difficile By Pcr Positive Abnormal Negative [facility] Comment on above: Order Comment: C. di [...] Performed By: #### C DIFP #### [facility] (DEFAULT) [address] [address] CBC,PLATELETSon 08-13-2021 Hematocrit (Bld) [Volume fraction] 25.9 % Low 34.9-44.3 [facility] Comment on above: Performed By: #### H EMO ####[facility] (DEFAULT)[address] [address] Hemoglobin (Bld) [Mass/Vol] 8.5 g/dL Low 11.4-15.2 [facility] Comment on above: Performed By: #### H EMOGC ####[facility] (DEFAULT)[address] [address] MCV (RBC) [Entitic vol] 89.0 fL Normal 79.6-97.7 [facility] Comment on above: Performed By: #### H EMOGC ####[facility] (DEFAULT)[address] [address] Mean Cell Hgb 29.2 pg Normal 25.9-33.9 [facility] Comment on above: Performed By: #### H EMOGC ####[facility] (DEFAULT)[address] [address] Mean Cell Hgb Conc 32.8 g/dL Normal 31.4-35.9 [facility] Comment on above: Performed By: #### H EMOGC ####[facility] (DEFAULT)[address] [place] [address] 98581 Platelet mean volume (Bld) [Entitic vol] 8.4 fL Low 8.5-12.2 [facility] Comment on above: Performed By: #### H EMOGC ####[facility] (DEFAULT)[address] [place] [address] 12978 Platelets (Bld) [#/Vol] 250 10*3/uL Normal 150-393 [facility] Comment on above: Performed By: #### H EMOGC ####[facility] (DEFAULT)[address] [place] [address] 55353 RBC (Bld) [#/Vol] 2.91 10*6/uL Low 3.91-5.04 [facility] Comment on above: Performed By: #### H EMOGC ####[facility] (DEFAULT)[address] [place] [address] 17112 RBC Distribution 13.3 % Normal 10.8-14.9 [facility] Comment on above: Performed By: #### H EMOGC ####[facility] (DEFAULT)[address] [place] [address] 43287 WBC (Bld) [#/Vol] 5.82 10*3/uL Normal 3.99-11.19 [facility] Comment on above: Performed By: #### H EMOGC ####[facility] (DEFAULT)[address] [place] [address] 46852 CHEM 6 (LYTES, BUN CREA)on 1 10-14-2020 Anion gap [Moles/Vol] 10 mmol/L Normal 7-17 [facility] Comment on above: Performed By: #### C HM6 #### [facility] (DEFAULT) [address] [place] [address] 61528 Chloride [Moles/Vol] 109 mmol/L High 98-108 [facility] Comment on above: Performed By: #### C HM6 #### [facility] (DEFAULT) [address] [place] [address] 87399 CO2 [Moles/Vol] 27 mmol/L Normal 22-30 [facility] Comment on above: Performed By: #### C HM6 #### [facility] (DEFAULT) [address] [place] [address] 60817 Creatinine [Mass/Vol] 0.74 mg/dL Normal 0.50-1.20 [facility] Comment on above: Performed By: #### C HM6 #### [facility] (DEFAULT) [address] [address] EST GFR, >=60 Normal >=60 [facility] Comment on above: Performed By: #### C HM6 #### [facility] (DEFAULT) [address] [address] EST GFR,Non >=60 Normal >=60 [facility] Comment on above: Performed By: #### C HM6 #### [facility] (DEFAULT) [address] [place] [address] 84907 Potassium [Moles/Vol] 3.8 mmol/L Normal 3.5-5.0 [facility] Comment on above: Performed By: #### C HM6 #### [facility] (DEFAULT) [address] [address] Sodium [Moles/Vol] 142 mmol/L Normal 133-143 [facility] Comment on above: Performed By: #### C HM6 #### [facility] (DEFAULT) [address] [address] Urea nitrogen [Mass/Vol] 14 mg/dL Normal 7-22 [facility] Comment on above: Performed By: #### C HM6 #### [facility] (DEFAULT) [address] [place] [address] 93716 Urea nitrogen/Creatinine [Mass ratio] 19 mg/mg Normal [facility] Comment on above: Performed By: #### C HM6 #### [facility] (DEFAULT) [address] [place] [address] 76297 HEMOGLOBIN & HEMATOCRITon Hematocrit (Bld) [Volume fraction] 31.3 % Low 34.9-44.3 [facility] Comment on above: Performed By: #### C HM6 #### [facility] (DEFAULT) [address] [place] [address] 18173 Hemoglobin (Bld) [Mass/Vol] 10.3 g/dL Low 11.4-15.2 [facility] Comment on above: Performed By: #### C HM6 #### [facility] (DEFAULT) [address] [place] [address] 11416 Hematocrit (Bld) [Volume fraction] 32.5 % Low 34.9-44.3 [facility] Comment on above: Performed By: #### H EMOGC #### [facility] (DEFAULT) [address] [place] [address] 12632 Hemoglobin (Bld) [Mass/Vol] 10.4 g/dL Low 11.4-15.2 [facility] Comment on above: Performed By: #### H EMOGC #### [facility] (DEFAULT) [address] [place] [address] 15478 CBC,PLATELETSon 08-12-2021 Hematocrit (Bld) [Volume fraction] 28.8 % Low 34.9-44.3 [facility] Comment on above: Performed By: #### H EMOGC #### [facility] (DEFAULT) [address] [place] [address] 34799 Hemoglobin (Bld) [Mass/Vol] 9.6 g/dL Low 11.4-15.2 [facility] Comment on above: Performed By: #### H EMOGC #### [facility] (DEFAULT) [address] [place] [address] 51927 MCV (RBC) [Entitic vol] 89.2 fL Normal 79.6-97.7 [facility] Comment on above: Performed By: #### H EMOGC #### [facility] (DEFAULT) [address] [place] [address] 57977 Mean Cell Hgb 29.7 pg Normal 25.9-33.9 [facility] Comment on above: Performed By: #### H EMOGC #### [facility] (DEFAULT) [address] [place] [address] 76592 Mean Cell Hgb Conc 33.3 g/dL Normal 31.4-35.9 [facility] Comment on above: Performed By: #### H EMOGC #### [facility] (DEFAULT) [address] [place] [address] 73694 Platelet mean volume (Bld) [Entitic vol] 8.4 fL Low 8.5-12.2 [facility] Comment on above: Performed By: #### H EMOGC #### [facility] (DEFAULT) [address] [address] Platelets (Bld) [#/Vol] 236 10*3/uL Normal 150-393 [facility] Comment on above: Performed By: #### H EMOGC #### [facility] (DEFAULT) [address] [address] RBC (Bld) [#/Vol] 3.23 10*6/uL Low 3.91-5.04 [facility] Comment on above: Performed By: #### H EMOGC #### [facility] (DEFAULT) [address] 7[address] RBC Distribution 13.4 % Normal 10.8-14.9 [facility] Comment on above: Performed By: #### H EMOGC #### [facility] (DEFAULT) [address] [place] [address] 59106 WBC (Bld) [#/Vol] 5.38 10*3/uL Normal 3.99-11.19 [facility] Comment on above: Performed By: #### H EMO #### [facility] (DEFAULT) [address] [place] [address] 42381 CHEM 6 (LYTES, BUN CREA)on 1 10-13-2020 Anion gap [Moles/Vol] 9 mmol/L Normal 7-17 [facility] Comment on above: Performed By: #### C HM7, MGO, IPB #### [facility] (DEFAULT) [address] [place] [address] 30217 Chloride [Moles/Vol] 109 mmol/L High 98-108 [facility] Comment on above: Performed By: #### C HM7, MGO, IPB #### [facility] (DEFAULT) [address] [place] [address] 71705 CO2 [Moles/Vol] 28 mmol/L Normal 22-30 [facility] Comment on above: Performed By: #### C HM7, MGO, IPB #### [facility] (DEFAULT) [address] [place] [address] 27254 Creatinine [Mass/Vol] 0.74 mg/dL Normal 0.50-1.20 [facility] Comment on above: Performed By: #### C HM7, MGO, IPB #### [facility] (DEFAULT) [address] [place] [address] 94652 EST GFR, >=60 Normal >=60 [facility] Comment on above: Performed By: #### C HM7, MGO, IPB #### [facility] (DEFAULT) [address] [place] [address] 30265 EST GFR,Non >=60 Normal >=60 [facility] Comment on above: Performed By: #### C HM7, MGO, IPB #### [facility] (DEFAULT) [address] [place] [address] 60295 Potassium [Moles/Vol] 3.7 mmol/L Normal 3.5-5.0 [facility] Comment on above: Performed By: #### C RICHELLE MONTEZ IPB #### [facility] (DEFAULT) [address] [place] [address] 13104 Sodium [Moles/Vol] 142 mmol/L Normal 133-143 [facility] Comment on above: Performed By: #### RICHELLE ANGULO, IPB #### [facility] (DEFAULT) [address] [place] [address] 60986 Urea nitrogen [Mass/Vol] 11 mg/dL Normal 7-22 [facility] Comment on above: Performed By: #### RICHELLE ANGULO, IPB #### [facility] (DEFAULT) [address] [place] [address] 93850 Urea nitrogen/Creatinine [Mass ratio] 15 mg/mg Normal [facility] Comment on above: Performed By: #### RICHELLE ANGULO, IPB #### [facility] (DEFAULT) [address] [place] [address] 32747 HEMOGLOBIN & HEMATOCRITon Hematocrit (Bld) [Volume fraction] 27.2 % Low 34.9-44.3 [facility] Comment on above: Performed By: #### H H ####[facility] (DEFAULT)[address] [place] [address] 62882 Hemoglobin (Bld) [Mass/Vol] 9.0 g/dL Low 11.4-15.2 [facility] Comment on above: Performed By: #### H H ####[facility] (DEFAULT)[address] [place] [address] 44230 Hematocrit (Bld) [Volume fraction] 26.4 % Low 34.9-44.3 [facility] Comment on above: Performed By: #### H EMOGC #### [facility] (DEFAULT) [address] [place] [address] 78158 Hemoglobin (Bld) [Mass/Vol] 8.6 g/dL Low 11.4-15.2 [facility] Comment on above: Performed By: #### H EMO #### [facility] (DEFAULT) [address] [address] NOVEL CORONAVIRUS PCRon SARS-CoV-2 (COVID-19) RNA LATOYA+probe Ql (Unsp spec) Not detected Normal NOT DETECTED [facility] Comment on above: Order Comment: Viral transport [...] by [facility]. This test is used for clinical purposes. It should not be regarded as investigational or for research. Result Comment: [facility] Negative results do not [...] deteriorating. Performed By: #### C HM6 #### [facility] (DEFAULT) [address] [place] [address] 73656 CBC,PLATELETSon 08-11-2021 Hematocrit (Bld) [Volume fraction] 26.6 % Low 34.9-44.3 [facility] Comment on above: Performed By: #### H EMO #### [facility] (DEFAULT) [address] [place] [address] 48076 Hemoglobin (Bld) [Mass/Vol] 8.8 g/dL Low 11.4-15.2 [facility] Comment on above: Performed By: #### H EMOGC #### [facility] (DEFAULT) [address] [address] MCV (RBC) [Entitic vol] 88.7 fL Normal 79.6-97.7 [facility] Comment on above: Performed By: #### H EMOGC #### [facility] (DEFAULT) [address] [address] Mean Cell Hgb 29.3 pg Normal 25.9-33.9 [facility] Comment on above: Performed By: #### H EMOGC #### [facility] (DEFAULT) [address] [address] Mean Cell Hgb Conc 33.1 g/dL Normal 31.4-35.9 [facility] Comment on above: Performed By: #### H EMO #### [facility] (DEFAULT) [address] [address] Platelet mean volume (Bld) [Entitic vol] 8.2 fL Low 8.5-12.2 [facility] Comment on above: Performed By: #### H EMOGC #### [facility] (DEFAULT) [address] [address] Platelets (Bld) [#/Vol] 223 10*3/uL Normal 150-393 [facility] Comment on above: Performed By: #### H EMOGC #### [facility] (DEFAULT) [address] [address] RBC (Bld) [#/Vol] 3.00 10*6/uL Low 3.91-5.04 [facility] Comment on above: Performed By: #### H EMOGC #### [facility] (DEFAULT) [address] [address] RBC Distribution 13.5 % Normal 10.8-14.9 [facility] Comment on above: Performed By: #### H [facility] #### [facility] (DEFAULT) [address] [place] [address] 08417 WBC (Bld) [#/Vol] 5.38 10*3/uL Normal 3.99-11.19 [facility] Comment on above: Performed By: #### H [facility] #### [facility] (DEFAULT) [address] [place] [address] 10559 CHEM 6 (LYTES, BUN CREA)on 1 10-12-2020 Anion gap [Moles/Vol] 10 mmol/L Normal 7-17 [facility] Comment on above: Performed By: #### X M #### [facility] (DEFAULT) [address] [place] [address] 94643 Chloride [Moles/Vol] 107 mmol/L Normal 98-108 [facility] Comment on above: Performed By: #### X M #### [facility] (DEFAULT) [address] [place] [address] 84315 CO2 [Moles/Vol] 29 mmol/L Normal 22-30 [facility] Comment on above: Performed By: #### X M #### [facility] (DEFAULT) [address] [place] [address] 98111 Creatinine [Mass/Vol] 0.79 mg/dL Normal 0.50-1.20 [facility] Comment on above: Performed By: #### X M #### [facility] (DEFAULT) [address] [place] [address] 41402 EST GFR, >=60 Normal >=60 [facility] Comment on above: Performed By: #### X M #### [facility] (DEFAULT) [address] [place] [address] 13575 EST GFR,Non >=60 Normal >=60 [facility] Comment on above: Performed By: #### X M #### [facility] (DEFAULT) [address] [place] [address] 74858 Potassium [Moles/Vol] 3.8 mmol/L Normal 3.5-5.0 [facility] Comment on above: Performed By: #### X M #### [facility] (DEFAULT) [address] [place] [address] 35129 Sodium [Moles/Vol] 142 mmol/L Normal 133-143 [facility] Comment on above: Performed By: #### X M #### [facility] (DEFAULT) [address] [place] [address] 46322 Urea nitrogen [Mass/Vol] 15 mg/dL Normal 7-22 [facility] Comment on above: Performed By: #### X M #### [facility] (DEFAULT) [address] [place] [address] 12806 Urea nitrogen/Creatinine [Mass ratio] 19 mg/mg Normal [facility] Comment on above: Performed By: #### X M #### [facility] (DEFAULT) [address] [place] [address] 48264 HEMOGLOBIN & HEMATOCRITon Hematocrit (Bld) [Volume fraction] 31.1 % Low 34.9-44.3 [facility] Comment on above: Performed By: #### X M #### [facility] (DEFAULT) [address] [place] [address] 61878 Hemoglobin (Bld) [Mass/Vol] 10.2 g/dL Low 11.4-15.2 [facility] Comment on above: Performed By: #### X M #### [facility] (DEFAULT) [address] [place] [address] 97926 Hematocrit (Bld) [Volume fraction] 27.1 % Low 34.9-44.3 [facility] Comment on above: Performed By: #### C HM7, MGO, IPB #### [facility] (DEFAULT) [address] [place] [address] 11050 Hemoglobin (Bld) [Mass/Vol] 9.0 g/dL Low 11.4-15.2 [facility] Comment on above: Performed By: #### C HM7, MGO, IPB #### [facility] (DEFAULT) [address] [address] XR ABDOMEN 1 VIEW PORTABLEon 08-11-2021 XR [...] dextroscoliosis. IMPRESSION: Nonobstructive bowel gas pattern. Normal [facility] CBC,PLATELETSon 08-10-2021 Hematocrit (Bld) [Volume fraction] 28.1 % Low 34.9-44.3 [facility] Comment on above: Performed By: #### X M #### [facility] (DEFAULT) [address] [address] Hemoglobin (Bld) [Mass/Vol] 9.5 g/dL Low 11.4-15.2 [facility] Comment on above: Performed By: #### X M #### [facility] (DEFAULT) [address] [address] MCV (RBC) [Entitic vol] 87.8 fL Normal 79.6-97.7 [facility] Comment on above: Performed By: #### X M #### [facility] (DEFAULT) [address] [address] Mean Cell Hgb 29.7 pg Normal 25.9-33.9 [facility] Comment on above: Performed By: #### X M #### [facility] (DEFAULT) [address] [address] Mean Cell Hgb Conc 33.8 g/dL Normal 31.4-35.9 [facility] Comment on above: Performed By: #### X M #### [facility] (DEFAULT) [address] [place] [address] 90648 Platelet mean volume (Bld) [Entitic vol] 8.5 fL Normal 8.5-12.2 [facility] Comment on above: Performed By: #### X M #### [facility] (DEFAULT) [address] [place] [address] 53217 Platelets (Bld) [#/Vol] 241 10*3/uL Normal 150-393 [facility] Comment on above: Performed By: #### X M #### [facility] (DEFAULT) [address] [place] [address] 70153 RBC (Bld) [#/Vol] 3.20 10*6/uL Low 3.91-5.04 [facility] Comment on above: Performed By: #### X M #### [facility] (DEFAULT) [address] [address] [place] [address] 62519 RBC Distribution 13.6 % Normal 10.8-14.9 [facility] Comment on above: Performed By: #### X M #### [facility] (DEFAULT) [address] [place] [address] 44899 WBC (Bld) [#/Vol] 5.50 10*3/uL Normal 3.99-11.19 [facility] Comment on above: Performed By: #### X M #### [facility] (DEFAULT) [address] [place] [address] 65233 CHEM 6 (LYTES, BUN CREA)on 10-10-2020 Anion gap [Moles/Vol] 11 mmol/L Normal 7-17 [facility] Comment on above: Performed By: #### C HM7, MGO, IPB #### [facility] (DEFAULT) [address] [place] [address] 52854 Chloride [Moles/Vol] 109 mmol/L High 98-108 [facility] Comment on above: Performed By: #### C HMDoron MGO, IPB #### [facility] (DEFAULT) [address] [place] [address] 98684 CO2 [Moles/Vol] 27 mmol/L Normal 22-30 [facility] Comment on above: Performed By: #### Chaparrita HM7, MGO, IPB #### [facility] (DEFAULT) [address] [place] [address] 50464 Creatinine [Mass/Vol] 0.69 mg/dL Normal 0.50-1.20 [facility] Comment on above: Performed By: #### C HM7, MGO, IPB #### [facility] (DEFAULT) [address] [place] [address] 17382 EST GFR, >=60 Normal >=60 [facility] Comment on above: Performed By: #### Chaparrita HM7, MGO, IPB #### [facility] (DEFAULT) [address] [place] [address] 83417 EST GFR,Non >=60 Normal >=60 [facility] Comment on above: Performed By: #### C HM7, MGO, IPB #### [facility] (DEFAULT) [address] [place] [address] 63234 Potassium [Moles/Vol] 3.7 mmol/L Normal 3.5-5.0 [facility] Comment on above: Performed By: #### Chaparrita HM7, MGO, IPB #### [facility] (DEFAULT) [address] [place] [address] 06279 Sodium [Moles/Vol] 143 mmol/L Normal 133-143 [facility] Comment on above: Performed By: #### Chaparrita HM7, MGO, IPB #### [facility] (DEFAULT) [address] [place] [address] 57725 Urea nitrogen [Mass/Vol] 11 mg/dL Normal 7-22 [facility] Comment on above: Performed By: #### C HM7, MGO, IPB #### [facility] (DEFAULT) [address] [place] [address] Urea nitrogen/Creatinine [Mass ratio] 16 mg/mg Normal [facility] Comment on above: Performed By: #### C HM7, MGO, IPB #### [facility] (DEFAULT) [address] [place] [address] CT CHEST WITH CONTRASTon CT CHEST WITH [...] and pelvis from 1 day earlier. Normal [facility] HEMOGLOBIN & HEMATOCRITon Hematocrit (Bld) [Volume fraction] 32.7 % Low 34.9-44.3 [facility] Comment on above: Performed By: #### H H ####[facility] (DEFAULT)[address] [place] [address] 89422 Hemoglobin (Bld) [Mass/Vol] 10.9 g/dL Low 11.4-15.2 [facility] Comment on above: Performed By: #### H H ####[facility] (DEFAULT)[address] [place] [address] 76578 Hematocrit (Bld) [Volume fraction] 31.4 % Low 34.9-44.3 [facility] Comment on above: Performed By: #### X M #### [facility] (DEFAULT) [address] [place] [address] 31969 Hemoglobin (Bld) [Mass/Vol] 10.5 g/dL Low 11.4-15.2 [facility] Comment on above: Performed By: #### X M #### [facility] (DEFAULT) [address] [place] [address] 71342 HEMOGLOBIN A1Con 08-10-2021 Glucose [Mass/Vol] 100 mg/dL Normal [facility] Comment on above: Performed By: #### X M #### [facility] (DEFAULT) [address] [place] [address] 09809 HbA1c (Bld) [Mass fraction] 5.1 % Normal 4.7-5.6 [facility] Comment on above: Performed By: #### X M #### [facility] (DEFAULT) [address] [place] [id number] NUC PET OTHERon 08-10-2021 NUC PET OTHER [...] the patient was positioned on the Siemens Biograph mCT TOF< PET/CT-64, [facility] imaging unit. [...] resolution and exclude any progressive process. Normal [facility] VITAMIN D (25-HYDROXY,TOTAL) on 08-10-2021 25-OH Vitamin D Total 71.0 ng/mL Normal 30.0-100.0 [facility] Comment on above: Order Comment: Vitam in D values have been shown to be falsely decreased in lipemic samples and should be interpreted with caution. Result Comment: <10 Deficiency 10-29 Insufficiency 30-100 Optimal Level >100 Possible Toxicity Performed By: #### X M #### [facility] (DEFAULT) [address] [place] [address] HEMOGLOBIN & HEMATOCRITon Hematocrit (Bld) [Volume fraction] 30.6 % Low 34.9-44.3 [facility] Comment on above: Performed By: #### X M #### [facility] (DEFAULT) [address] [place] [address] 45582 Hemoglobin (Bld) [Mass/Vol] 10.2 g/dL Low 11.4-15.2 [facility] Comment on above: Performed By: #### X M #### [facility] (DEFAULT) [address] [place] [address] 69578 Hematocrit (Bld) [Volume fraction] 30.5 % Low 34.9-44.3 [facility] Comment on above: Performed By: #### X M #### [facility] (DEFAULT) [address] [place] [address] 92917 Hemoglobin (Bld) [Mass/Vol] 10.2 g/dL Low 11.4-15.2 [facility] Comment on above: Performed By: #### X M #### [facility] (DEFAULT) [address] [place] [address] 61279 Hematocrit (Bld) [Volume fraction] 28.9 % Low 34.9-44.3 [facility] Comment on above: Performed By: #### X M #### [facility] (DEFAULT) [address] [place] [address] 66787 Hemoglobin (Bld) [Mass/Vol] 9.8 g/dL Low 11.4-15.2 [facility] Comment on above: Performed By: #### X M #### [facility] (DEFAULT) [address] [place] [address] 44248 Hematocrit (Bld) [Volume fraction] 29.9 % Low 34.9-44.3 [facility] Comment on above: Performed By: #### C HM7, MGO, IPB #### [facility] (DEFAULT) [address] [place] [address] 97278 Hemoglobin (Bld) [Mass/Vol] 9.7 g/dL Low 11.4-15.2 [facility] Comment on above: Performed By: #### C HM7, MGO, IPB #### [facility] (DEFAULT) [address] [place] [address] 00507 Hematocrit (Bld) [Volume fraction] 31.2 % Low 34.9-44.3 [facility] Comment on above: Performed By: #### X M #### [facility] (DEFAULT) [address] [place] [address] 24799 Hemoglobin (Bld) [Mass/Vol] 10.6 g/dL Low 11.4-15.2 [facility] Comment on above: Performed By: #### X M #### [facility] (DEFAULT) [address] [place] [address] 64699 XR KNEE LEFT 3 VIEWSon 08-09 XR [...] Tricompartmental osteoarthritis No acute osseous abnormality Normal [facility] ABORH TYPE RECONFIRMATIONon 08-08-2021 ABO/RH(D) TYPE Positive Normal [facility] Comment on above: Performed By: #### T YPEC #### [facility] (DEFAULT) [address] [place] [address] 52570 CALCIUMon 08-08-2021 Calcium [Mass/Vol] 7.8 mg/dL Low 8.6-10.5 [facility] Comment on above: Performed By: #### C DIFP #### [facility] (DEFAULT) [address] [place] [address] 39106 CBC AND ELECTRONIC DIFFon Basophils (Bld) [#/Vol] 10*3/uL Normal 0.00-0.15 [facility] Comment on above: Performed By: #### RICHELLE ANGULO, IPB #### [facility] (DEFAULT) [address] [place] [address] 77945 Basophils/100 WBC (Bld) 0.4 % Normal [facility] Comment on above: Performed By: #### RICHELLE ANGULO, IPB #### [facility] (DEFAULT) [address] [place] [address] 18262 DIFF STATUS Electronic Differential Normal [facility] Comment on above: Performed By: #### RICHELLE ANGULO, IPB #### [facility] (DEFAULT) [address] [place] [address] 44758 Eosinophils (Bld) [#/Vol] 10*3/uL Normal 0.00-0.42 [facility] Comment on above: Performed By: #### RICHELLE ANGULO, IPB #### [facility] (DEFAULT) [address] [place] [address] 66462 Eosinophils/100 WBC (Bld) 0.4 % Normal [facility] Comment on above: Performed By: #### RICHELLE ANGULO, IPB #### [facility] (DEFAULT) [address] [place] [address] 75780 Hematocrit (Bld) [Volume fraction] 25.3 % Low 34.9-44.3 [facility] Comment on above: Performed By: #### RICHELLE ANGULO, IPB #### [facility] (DEFAULT) [address] [place] [address] 16873 Hemoglobin (Bld) [Mass/Vol] 8.5 g/dL Low 11.4-15.2 [facility] Comment on above: Performed By: #### RICHELLE ANGULO, IPB #### [facility] (DEFAULT) [address] [place] [address] 78219 Immature Grans % 0.2 % Normal [facility] Comment on above: Performed By: #### RICHELLE ANGULO, IPB #### [facility] (DEFAULT) [address] [address] Immature Grans Absolute <0.04 Normal <=0.09 [facility] Comment on above: Performed By: #### RICHELLE ANGULO, IPB #### [facility] (DEFAULT) [address] [place] [address] 11773 Lymphocytes (Bld) [#/Vol] 1.06 10*3/uL Low 1.16-3.51 [facility] Comment on above: Performed By: #### RICHELLE ANGULO, IPB #### [facility] (DEFAULT) [address] [address]20 Lymphocytes/100 WBC (Bld) 20.9 % Normal [facility] Comment on above: Performed By: #### RICHELLE ANGULO, IPB #### [facility] (DEFAULT) [address] [address] MCV (RBC) [Entitic vol] 88.8 fL Normal 79.6-97.7 [facility] Comment on above: Performed By: #### RICHELLE ANGULO, IPB #### [facility] (DEFAULT) [address] [address] Mean Cell Hgb 29.8 pg Normal 25.9-33.9 [facility] Comment on above: Performed By: #### RICHELLE ANGULO, IPB #### [facility] (DEFAULT) [address] [address]77 Mean Cell Hgb Conc 33.6 g/dL Normal 31.4-35.9 [facility] Comment on above: Performed By: #### RICHELLE ANGULO, IPB #### [facility] (DEFAULT) [address] [place] [address] 82025 Monocytes (Bld) [#/Vol] 0.34 10*3/uL Normal 0.22-0.87 [facility] Comment on above: Performed By: #### RICHELLE ANGULO, IPB #### [facility] (DEFAULT) [address] [place] [address] 53827 Monocytes/100 WBC (Bld) 6.7 % Normal [facility] Comment on above: Performed By: #### Chaparrita HMDoron MGO, IPB #### [facility] (DEFAULT) [address] [place] [address] 45656 Nucleated RBC 0.0 /100 WBC Normal <=0.2 [facility] Comment on above: Performed By: #### Chaparrita MONTEZ MGO, IPB #### [facility] (DEFAULT) [address] [place] [address] 17254 Platelet mean volume (Bld) [Entitic vol] 8.4 fL Low 8.5-12.2 [facility] Comment on above: Performed By: #### MG KEVO, IPB #### [facility] (DEFAULT) [address] [place] [address] 27204 Platelets (Bld) [#/Vol] 248 10*3/uL Normal 150-393 [facility] Comment on above: Performed By: #### Chaparrita HM7, MGO, IPB #### [facility] (DEFAULT) [address] [place] [address] 70083 RBC (Bld) [#/Vol] 2.85 10*6/uL Low 3.91-5.04 [facility] Comment on above: Performed By: #### Chaparrita HM7, MGO, IPB #### [facility] (DEFAULT) [address] [place] [address] 71256 RBC Distribution 14.2 % Normal 10.8-14.9 [facility] Comment on above: Performed By: #### Chaparrita HM7, MGO, IPB #### [facility] (DEFAULT) [address] [place] [address] 26248 Segs + Bands Auto 71.4 % Normal [facility] Comment on above: Performed By: #### C HM7 MGO, IPB #### [facility] (DEFAULT) [address] [place] [address] 31932 Segs + Bands,Absolute Auto 3.61 K/uL Normal 1.64-7.28 [facility] Comment on above: Performed By: #### C HM7 MGO, IPB #### [facility] (DEFAULT) [address] [place] [address] 92452 WBC (Bld) [#/Vol] 5.06 10*3/uL Normal 3.99-11.19 [facility] Comment on above: Performed By: #### C HM7 MGDaniela, IPB #### [facility] (DEFAULT) [address] [place] [address] 51283 CHEM 7 (LYTES,BUN,CREA,GLUC) on 08-08-2021 Anion gap [Moles/Vol] 10 mmol/L Normal 7-17 [facility] Comment on above: Performed By: #### C DIFP #### [facility] (DEFAULT) [address] [place] [address] 83904 Chloride [Moles/Vol] 109 mmol/L High 98-108 [facility] Comment on above: Performed By: #### C DIFP #### [facility] (DEFAULT) [address] [place] [address] 74641 CO2 [Moles/Vol] 27 mmol/L Normal 22-30 [facility] Comment on above: Performed By: #### C DIFP #### [facility] (DEFAULT) [address] [place] [address] 41431 Creatinine [Mass/Vol] 0.82 mg/dL Normal 0.50-1.20 [facility] Comment on above: Performed By: #### C DIFP #### [facility] (DEFAULT) [address] [place] [address] 82576 EST GFR, >=60 Normal >=60 [facility] Comment on above: Performed By: #### C DIFP #### [facility] (DEFAULT) [address] [place] [address] 46942 EST GFR,Non >=60 Normal >=60 [facility] Comment on above: Performed By: #### C DIFP #### [facility] (DEFAULT) [address] [place] [address] 34436 Glucose [Mass/Vol] 107 mg/dL High 70-99 [facility] Comment on above: Performed By: #### C DIFP #### [facility] (DEFAULT) [address] [place] [address] 63351 Osmolality [Osmolality] 301 mosm/kg Normal 278-305 [facility] Comment on above: Performed By: #### C DIFP #### [facility] (DEFAULT) [address] [place] [address] 59925 Potassium [Moles/Vol] 4.2 mmol/L Normal 3.5-5.0 [facility] Comment on above: Performed By: #### C DIFP #### [facility] (DEFAULT) [address] [place] [address] 04121 Sodium [Moles/Vol] 142 mmol/L Normal 133-143 [facility] Comment on above: Performed By: #### C DIFP #### [facility] (DEFAULT) [address] [place] [address] 97321 Urea nitrogen [Mass/Vol] 24 mg/dL High 7-22 [facility] Comment on above: Performed By: #### C DIFP #### [facility] (DEFAULT) [address] [place] [address] 69858 Urea nitrogen/Creatinine [Mass ratio] 29 mg/mg Normal [facility] Comment on above: Performed By: #### C DIFP #### [facility] (DEFAULT) [address] [place] [address] ANGIO ABDOMEN PELVISon CT ANGIO ABDOMEN [...] have reviewed and approved this report. Normal [facility] HEPATIC FUNCTION PANELon Albumin [Mass/Vol] 3.2 g/dL Low 3.5-5.0 [facility] Comment on above: Performed By: #### C DIFP #### [facility] (DEFAULT) [address] [address] ALP [Catalytic activity/Vol] 53 U/L Normal 32-126 [facility] Comment on above: Performed By: #### C DIFP #### [facility] (DEFAULT) [address] [address] ALT [Catalytic activity/Vol] 9 U/L Normal 9-48 [facility] Comment on above: Performed By: #### C DIFP #### [facility] (DEFAULT) [address] [address] AST [Catalytic activity/Vol] 17 U/L Normal 14-40 [facility] Comment on above: Performed By: #### C DIFP #### [facility] (DEFAULT) [address] [address] Bilirubin [Mass/Vol] 0.3 mg/dL Normal <1.5 [facility] Comment on above: Performed By: #### C DIFP #### [facility] (DEFAULT) [address] [address] Bilirubin.indirect [Mass/Vol] 0.1 mg/dL Normal <0.3 [facility] Comment on above: Performed By: #### C DIFP #### [facility] (DEFAULT) [address] [place] [address] 73098 Protein [Mass/Vol] 4.7 g/dL Low 6.4-8.3 [facility] Comment on above: Performed By: #### C DIFP #### [facility] (DEFAULT) [address] [place] [address] 55470 PT,INR,PTTon 08-08-2021 aPTT Coag (Bld) [Time] 26.8 s Normal 24.0-34.3 [facility] Comment on above: Performed By: #### P TPTT ####[facility] (DEFAULT)[address] [place] [address] 12923 INR Coag (PPP) [Relative time] 1.1 {INR} Normal 0.9-1.1 [facility] Comment on above: Performed By: #### P TPTT ####[facility] (DEFAULT)[address] [place] [address] 40510 PT Coag (PPP) [Time] 13.6 s Normal 11.9-14.2 [facility] Comment on above: Performed By: #### P TPTT ####[facility] (DEFAULT)[address] [place] [address] 98270 TSH W/FT4 REFLEXon TSH 1.153 uIU/mL Normal 0.550-4.780 [facility] Comment on above: Performed By: #### C DIFP #### [facility] (DEFAULT) [address] [place] [address] 07998 TYPE AND SCREENon 08-08-2021 ABO/RH(D) TYPE Positive Normal [facility] Comment on above: Performed By: #### X M #### [facility] (DEFAULT) [address] [place] [address] 53980 Basic metabolic 2000 panelOr dered By: Joselyn Urbina on 04-20-2021 Anion gap [Moles/Vol] 6 mmol/L Low 10 - 2 0 mmol/L [facility] Calcium [Mass/Vol] 8.7 mg/dL 8.4 - 10. 2 mg/dL [facility] Chloride [Moles/Vol] 105 mmol/L 98 - 10 8 mmol/L [facility] Creatinine [Mass/Vol] 1.14 mg/dL 0.60 - 1.20 [facility] GFR/1.73 sq M.predicted CKD-EPI (S/P/Bld) [Vol rate/Area] 47 Low >=60 mL/min/1.73 m2 [facility] Glucose [Mass/Vol] 103 mg/dL High 65 - 99 mg/dL [facility] HCO3 [Moles/Vol] 30 mmol/L 21 - 32 mmol/L [facility] Interpretation and review of laboratory results Abnormal [facility] Potassium [Moles/Vol] 3.3 mmol/L Low 3.5 - 5.1 mmol/L [facility] Sodium [Moles/Vol] 138 mmol/L 135 - 145 mmol/L [facility] Urea nitrogen [Mass/Vol] 20 mg/dL 8 - 25 mg/dL [facility] Urea nitrogen/Creatinine [Mass ratio] 17.5 mg/mg [facility] The eGFR should be u sed for monitoring renal function only and not for medication dosing. [facility] ECHOCARDIOGRAM COMPLETEon ECHOCARDIOGRAM COMPLETE Patient Info Name: BHARTI AKBAR Age: 75 years : 1945 Gender: Female Ht: 160 cm Wt: 51 kg BSA: 1.51 m2 HR: 71 bpm BP: 157 / 63 mmHg Heart Rhythm: Sinus Rhythm Technical Quality: Good Exam Date: 04/20/2021 3:01 PM Patient Status: Inpatient Supervisor [employer]: Natalie Brenner RCDS Exam Type: ECHOCARDIOGRAM COMPLETE Study Info Indications R07.9 - Chest pain, unspecified Referring Physician: RAJEEV REESE ; [id number] BMI: 20.02 kg/m2 Summary 1. Normal left [...] mmHg MV VTI 31 cm MV Decel Polk 337 cm/s2 MV PHT 75 ms MV Area (PHT) 2.9 cm2 4.0-5.0 MV Area (Cont Eq VTI) 2.1 cm2 MV Area Index (Cont Eq VTI) 1.38 cm2/m2 MV Diastolic Function - MV E Peak Velocity 1 m/s MV A Peak Velocity 1 m/s MV E/A 0.9 MV Decel Time 260 ms MV Annular TDI (more content not included)... Normal [facility] ECHOCARDIOGRAM COMPLETEOrder ed By: Marietta Beltran on 04-20-2021 Aortic valve area 1.527 cm [facility] AV mean gradient 5.03857 mmHg [facility] AV peak gradient 8.38512 mmHg [facility] EF 78.5607 % [facility] Patient Info Name: Jaguar AKBAR Age: 75 years : 1945 Gender: Female Ht: 160 cm Wt: 51 kg BSA: 1.51 m2 HR: 71 bpm BP: 157 / 63 mmHg Heart Rhythm: Sinus Rhythm Technical Quality: Good Exam Date: 04/20/2021 3:01 PM Patient Status: Inpatient Supervisor [employer]: Natalie Brenner RCDS Exam Type: ECHOCARDIOGRAM COMPLETE Study Info Indications R07.9 - Chest pain, unspecified Referring Physician: RAJEEV REESE ; [id number] BMI: 20.02 kg/m2 Summary 1. Normal left [...] Velocity 0.97 m/s (more content not included)... [employer] Interface, Rad In [facility] [employer] [employer] - 04/20/2021 4:08 PM EDT Patient Info Name: BHARTI AKBAR Age: 75 years : 1945 Gender: Female Ht: 160 cm Wt: 51 kg BSA: 1.51 m2 HR: 71 bpm BP: 157 / 63 mmHg Heart Rhythm: Sinus Rhythm Technical Quality: Good Exam Date: 04/20/2021 3:01 PM Patient Status: Inpatient Supervisor [employer]: Natalie Brenner RCDS Exam Type: ECHOCARDIOGRAM COMPLETE Study Info Indications R07.9 - Chest pain, unspecified Referring Physician: RAJEEV REESE ; [id number] BMI: 20.02 kg/m2 Summary 1. Normal left [...] mmHg MV VTI 31 cm MV Decel Polk 337 cm/s2 MV PHT 75 ms MV Area (PHT) 2.9 cm2 4.0-5.0 MV Area (Cont Eq VTI) 2.1 cm2 MV Area Index (Cont Eq VTI) 1.38 cm2/m2 MV Diastolic Function (more content not included)... [facility] Potassium LevelOrdered By: Luis Castellanos on 04-20-2021 Potassium [Moles/Vol] 4.7 mmol/L 3.5 - 5.1 mmol/L [facility] Potassium LevelOrdered By: Pete Salazar on 04-20-2021 Potassium [Moles/Vol] 3.3 mmol/L Low 3.5 - 5.1 mmol/L [facility] Potassium [Moles/Vol]Ordered By: Alivia Castellanos on 04-20-2021 Interpretation and review of laboratory results Normal [facility] Potassium [Moles/Vol]Ordered By: Shantal Salazar on 04-20-2021 Interpretation and review of laboratory results Abnormal [facility] US DOPPLER CAROTIDon 021 US DOPPLER CAROTID Patient Info Name: BHARTI AKBAR Age: 75 years : 1945 Gender: Female Exam Date: 04/20/2021 7:38 AM Patient Status: Inpatient [employer]ier: Eileen Lopez, [place]OST[place], NATALIA Referring Physician: RAJEEV REESE ; Indications 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 Procedure Description 62161 Duplex examination using B-mode, color and spectral [...] YOLANDA Ceja DO on 04/20/2021 04:26 PM Normal [facility] US DOPPLER CAROTIDOrdered By : Joselyn Urbina on 04-20-2021 Patient Info Name: Jaguar AKBAR Age: 75 years : 1945 Gender: Female Exam Date: 04/20/2021 7:38 AM Patient Status: Inpatient [employer]: Eileen Lopez, B[place], NATALIA Referring Physician: RAJEEV REESE ; Indications 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 2 mg/dL [facility] Chloride [Moles/Vol] 104 mmol/L 98 - 10 8 mmol/L [facility] Creatinine [Mass/Vol] 0.78 mg/dL 0.60 - 1.20 [facility] GFR/1.73 sq M.predicted CKD-EPI (S/P/Bld) [Vol rate/Area] 74 >=60 mL/min/1.73 m2 [facility] Glucose [Mass/Vol] 94 mg/dL 65 - 99 mg/dL [facility] HCO3 [Moles/Vol] 34 mmol/L High 21 - 32 mmol/L [facility] Interpretation and review of laboratory results Abnormal [facility] Potassium [Moles/Vol] 3.8 mmol/L 3.5 - 5.1 mmol/L [facility] Sodium [Moles/Vol] 141 mmol/L 135 - 145 mmol/L [facility] Urea nitrogen [Mass/Vol] 21 mg/dL 8 - 25 mg/dL [facility] Urea nitrogen/Creatinine [Mass ratio] 26.9 mg/mg High [facility] The eGFR should be u sed for monitoring renal function only and not for medication dosing. [facility] Cardiac catheterizationOrder ed By: Joselyn Urbina on 04-19-2021 [facility] ECG 12-LEADOrdered By: Antonio Tian on 04-19-2021 Atrial Rate 72 BPM [facility] P [place] 73 degrees [facility] P-R Interval 190 ms [facility] Q-T Interval 442 ms [facility] QRS Duration 66 ms [facility] QTC Calculation (Bezet) 483 ms [facility] R [place] 60 degrees [facility] T [place] 71 degrees [facility] Ventricular Rate 72 BPM [facility] Normal sinus rhythm Normal ECG Confirmed by Sudheer Mandel MD ([id number]) on 04/19/2021 4:55:59 PM [facility] MR BRAIN WITHOUT CONTRASTOrd ered By: Og Blanacs on 04-19-2021 No acute process Workstation ID: [id number] [facility] EXAMINATION: MR BRAIN WITHOUT CONTRAST HISTORY: ORDERING [...] canals are unremarkable. Pituitary is normal size. [facility] Interface, Rad In Fu ji Speechq - [...] IMPRESSION: No acute process Workstation ID: [id number] [facility] ECG 12-LEADOrdered By: Moo Zuniga on 04-18-2021 Atrial Rate 63 BPM [facility] P [place] 66 degrees [facility] P-R Interval 202 ms [facility] Q-T Interval 430 ms [facility] QRS Duration 74 ms [facility] QTC Calculation (Bezet) 440 ms [facility] R [place] 49 degrees [facility] T [place] 51 degrees [facility] Ventricular Rate 63 BPM [facility] th Normal sinus rhythm Normal ECG Confirmed by Joselyn Urbina MD ([id number]) on 04/18/2021 8:06:48 AM [facility] MR BRAIN WITHOUT CONTRASTon 04-18-2021 MR BRAIN [...] on MonApr 19, 2021 10:30:10 AM EDT [facility] Comment on above: Order Comment: Injur y/Trauma or Illness?:Illness/Other How long have you had these symptoms (acute/chronic)?:Acute Reason for exam?:Speech problems last night, slurred speech and aphasia Type of Exam?:Subsequent/Follow-up Additional signs and symptoms?:No Hx of CA or CVA TROPONINOrdered By: Moo hill on 04-18-2021 Interp Troponin I Delta Change No biomarker evidence of cardiac injury. [facility] Troponin I.cardiac [Mass/Vol] ng/mL <=45 ng/L [facility] Troponin I Interpretation Normal [facility] Troponin I.cardiac [Mass/Vol] ng/mL <=45 ng/L [facility] XR Hand - bilateral PA and L ateral and Obliqueon 04-15-2021 IMPRESSION: Chronic postsurgical and degenerative changes as detailed in report. Metal Buggy Operator: PSCB Transcribe Date/Time: Apr 15 2021 9:15P Dictated by : SHANTAL SARMIENTO MD This examination was interpreted and the report reviewed and electronically signed by: SHANTAL SARMIENTO MD on Apr 15 2021 9:17PM [facility] DIVISION OF RADIOLOGY * * *Final Report* [...] superimposed erosive process. DIVISION OF RADIOLOGY Provider, Clair Shelton - 04/15/2021 * * *Final Report* * [...] and degenerative changes as detailed in report. Metal Buggy Operator: PSCB Transcribe Date/Time: Apr 15 2021 9:15P Dictated by : SHANTAL SARMIENTO MD This examination was interpreted and the report reviewed and electronically signed by: SHANTAL SARMIENTO MD on Apr 15 2021 9:17PM [facility] Radiology Study observation (narrative) [facility] XR Hand - bilateral PA and L ateral and ObliqueOrdered By: Ccf Provider on 04-15-2021 [facility] XR Pelvis and Hip - left AP and Lateral frogon 04-13-2021 IMPRESSION: Mild left hip osteoarthritis. No acute osseous findings. Metal Buggy Operator: FLORINDA Transcribe Date/Time: Apr 13 2021 1:06P Dictated by : ELLIE PAINTER MD This examination was interpreted and the report reviewed and electronically signed by: ELLIE PAINTER MD on Apr 13 2021 1:07PM [facility] DIVISION OF RADIOLOGY * * *Final Report* [...] lower lumbar spine. DIVISION OF RADIOLOGY Provider, [facility] - 04/13/2021 * * *Final Report* * [...] left hip osteoarthritis. No acute osseous findings. Metal Buggy Operator: FLORINDA Transcribe Date/Time: Apr 13 2021 1:06P Dictated by : ELLIE PAINTER MD This examination was interpreted and the report reviewed and electronically signed by: ELLIE PAINTER MD on Apr 13 2021 1:07PM EST [facility] Radiology Study observation (narrative) [facility] XR Pelvis and Hip - left AP and Lateral frogOrdered By: Ccf Provider on 04-13-2021 [facility] TSHon 05-16-2017 Thyroid stimulating hormone (TSH) 0.41 mIU/m Normal 0.30-5.[address] [facility] Comment on above: Performed By: #### 2 [id number] ####[id number] [place] [address] Vital Signs Date Time Vital Sign Value Performing Clinician Facility 04-29-2025 15:07-0400 Body height 160.[address] Armando Orozco MD Work Phone: 6(207)274-257983 [place] [address] 04-29-2025 15:07-0400 Body mass index (BMI) [Ratio] 20.2 kg/m2 Dr. Armando Orozco MD Work Phone: 9(771)203-502483 [place] [address] 04-29-2025 15:07-0400 Body temperature 98.2 [degF] Dr. Armando Orozco MD Work Phone: 2(179)440-459183 [place] [address] 04-29-2025 15:07-0400 Body weight 51.[address] Armando Orozco MD Work Phone: 2(182)854-086083 [place] [address] 04-29-2025 15:07-0400 Diastolic blood pressure 78 mm[Hg] Dr. Armando Orozco MD Work Phone: 5(534)840-623783 [place] [address] 04-29-2025 15:07-0400 Heart rate 60 /min Dr. Armando Orozco MD Work Phone: 2(336)668-702183 [place] [address] 04-29-2025 15:07-0400 Systolic blood pressure 120 mm[Hg] Dr. Armando Orozco MD Work Phone: 4(092)333-344883 [place] [address] 04-22-2025 14:41-0400 Body height 160.[address] Armando Orozco MD Work Phone: 3(875)008-008983 [place] [address] 04-22-2025 14:41-0400 Body mass index (BMI) [Ratio] 20.2 kg/m2 Dr. Armando Orozco MD Work Phone: 2(918)433-948383 [place] [address] 04-22-2025 14:41-0400 Body temperature 97.8 [degF] Dr. Armando Orozco MD Work Phone: 6(150)865-954883 [place] [address] 04-22-2025 14:41-0400 Body weight 51.[address] Armando Orozco MD Work Phone: 6(297)902-196983 [place] [address] 04-22-2025 14:41-0400 Diastolic blood pressure 80 mm[Hg] Dr. Armando Orozco MD Work Phone: 8(032)292-560383 [place] [address] 04-22-2025 14:41-0400 Heart rate 64 /min Dr. Armando Orozco MD Work Phone: 5(810)846-859683 [place] [address] 04-22-2025 14:41-0400 Systolic blood pressure 122 mm[Hg] Dr. Armando Orozco MD Work Phone: 0(830)422-555183 [place] [address] 04-11-2025 13:53-0400 Body height 160.[address] Armando Orozco MD Work Phone: 0(505)583-390483 [place] [address] 04-11-2025 13:53-0400 Body mass index (BMI) [Ratio] 20.2 kg/m2 Dr. Armando Orozco MD Work Phone: 0(840)459-885183 [place] [address] 04-11-2025 13:53-0400 Body temperature 98 [degF] Dr. Armando Orozco MD Work Phone: 8(800)170-344583 [place] [address] 04-11-2025 13:53-0400 Body weight 51.[address] Armando Orozco MD Work Phone: 6(420)459-609983 [place] [address] 04-11-2025 13:53-0400 Diastolic blood pressure 82 mm[Hg] Dr. Armando Orozco MD Work Phone: 8(383)475-019483 [place] [address] 04-11-2025 13:53-0400 Systolic blood pressure 124 mm[Hg] Dr. Armando Orozco MD Work Phone: 4(465)827-096883 [place] [address] 03-11-2025 15:09-0400 Body height 160.[address] Armando Orozco MD Work Phone: 3(597)784-099683 [place] [address] 03-11-2025 15:09-0400 Body mass index (BMI) [Ratio] 20.7 kg/m2 Dr. Armando Orozco MD Work Phone: 0(286)787-838983 [place] [address] 03-11-2025 15:09-0400 Body weight 53.[address] Armando Orozco MD Work Phone: 5(651)048-266783 [place] [address] 03-11-2025 15:09-0400 Diastolic blood pressure 71 mm[Hg] Dr. Armando Orozco MD Work Phone: 8(575)901-182083 [place] [address] 03-11-2025 15:09-0400 Heart rate 58 /min Dr. Armando Orozco MD Work Phone: 4(983)375-626483 [place] [address] 03-11-2025 15:09-0400 Respiratory rate 16 /min Dr. Armando Orozco MD Work Phone: 5(262)220-888183 [place] [address] 03-11-2025 15:09-0400 Systolic blood pressure 133 mm[Hg] Dr. Armando Orozco MD Work Phone: 8(263)333-697883 [place] [address] 02-17-2025 15:00-0400 Body height 160.[address] Armando Orozco MD Work Phone: 3(624)435-947383 [place] [address] 02-17-2025 15:00-0400 Body mass index (BMI) [Ratio] 20.9 kg/m2 Dr. Armando Orozco MD Work Phone: 1(346)805-453583 [place] [address] 02-17-2025 15:00-0400 Body weight 53.[address] Armando Orozco MD Work Phone: 1(585)477-648283 [place] [address] 02-07-2025 11:01-0400 Body temperature 97.6 [degF] Dr. Armando Orozco MD Work Phone: 0(165)698-067883 [place] [address] 02-07-2025 11:01-0400 Body weight 54.[address] Armando Orozco MD Work Phone: 5(943)150-666883 [place] [address] 02-07-2025 11:01-0400 Diastolic blood pressure 66 mm[Hg] Dr. Armando Orozco MD Work Phone: 5(216)384-323483 [place] [address] 02-07-2025 11:01-0400 Heart rate 70 /min Dr. Armando Orozco MD Work Phone: 8(962)882-101783 [place] [address] 02-07-2025 11:01-0400 Respiratory rate 14 /min Dr. Armando Orozco MD Work Phone: 1(506)105-883383 [place] [address] 02-07-2025 11:01-0400 SaO2% (BldA) [Mass fraction] 99 % Dr. Armando Orozco MD Work Phone: 4(217)517-901383 [place] [address] 02-07-2025 11:01-0400 Systolic blood pressure 168 mm[Hg] Dr. Armando Orozco MD Work Phone: 1(728)104-475383 [place] [address] 01-30-2025 17:45-0400 Body temperature 98.4 [degF] Dr. Armando Orozco MD Work Phone: 1(700)489-656383 [place] [address] 01-30-2025 17:45-0400 Diastolic blood pressure 62 mm[Hg] Dr. Armando Orozco MD Work Phone: 6(105)725-977683 [place] [address] 01-30-2025 17:45-0400 Heart rate 67 /min Dr. Armando Orozco MD Work Phone: 9(873)883-377483 [place] [address] 01-30-2025 17:45-0400 Respiratory rate 14 /min Dr. Armando Orozco MD Work Phone: 2(048)187-783283 [place] [address] 01-30-2025 17:45-0400 SaO2% (BldA) [Mass fraction] 94 % Dr. Armando Orozco MD Work Phone: 0(651)992-133183 [place] [address] 01-30-2025 17:45-0400 Systolic blood pressure 168 mm[Hg] Dr. Armando Orozco MD Work Phone: 4(033)511-438483 [place] [address] 01-30-2025 15:39-0400 Body height 160.[address] Armando Orozco MD Work Phone: 8(703)008-220183 [place] [address] 01-30-2025 15:39-0400 Body mass index (BMI) [Ratio] 20.9 kg/m2 Dr. Armando Orozco MD Work Phone: [facility] 01-30-2025 15:39-0400 Body weight 53.[address] Armando Orozco MD Work Phone: [facility] 12-24-2024 13:24-0400 Diastolic blood pressure 78 mm[Hg] Kushal Fatemeh PIT CLERK.STEAM PRESSER Work Phone: [facility] 12-24-2024 13:24-0400 Systolic blood pressure 170 mm[Hg] Kushal Fatemeh PIT CLERK.STEAM PRESSER Work Phone: [facility] 12-24-2024 13:09-0400 Body mass index (BMI) [Ratio] 21.6 kg/m2 Kushal Fatemeh PIT CLERK.STEAM PRESSER Work Phone: [facility] 12-24-2024 13:09-0400 Body weight 54.43 kg Kushal Fatemeh PIT CLERK.STEAM PRESSER Work Phone: [facility] 12-24-2024 13:09-0400 Heart rate 62 /min Kushal Fatemeh PIT CLERK.STEAM PRESSER Work Phone: [facility] 12-24-2024 13:09-0400 Respiratory rate 18 /min Kushal Fatemeh PIT CLERK.STEAM PRESSER Work Phone: [facility] 12-24-2024 13:09-0400 SaO2% (BldA) [Mass fraction] 98 % Kushal Fatemeh PIT CLERK.STEAM PRESSER Work Phone: [facility] 12-10-2024 13:26-0400 Diastolic blood pressure 82 mm[Hg] Armando Orozco MD Work Phone: [facility] 12-10-2024 13:26-0400 Systolic blood pressure 136 mm[Hg] Armando Orozco MD Work Phone: [facility] 12-10-2024 13:23-0400 Body mass index (BMI) [Ratio] 21.51 kg/m2 Armando Orozco MD Work Phone: [facility] 12-10-2024 13:23-0400 Body weight 54.2 kg Armando Orozco MD Work Phone: [facility] 12-10-2024 13:23-0400 Heart rate 60 /min Armando Orozco MD Work Phone: [facility] 12-10-2024 13:23-0400 Respiratory rate 18 /min Armando Orozco MD Work Phone: [facility] 11-05-2024 11:18-0500 Body mass index (BMI) [Ratio] 21.63 kg/m2 Maya Sherwooder PA-C Work Phone: [facility] 11-05-2024 11:18-0500 Body weight 54.52 kg Maya Queener PA-C Work Phone: [facility] 11-05-2024 11:18-0500 Diastolic blood pressure 67 mm[Hg] Maya Queener PA-C Work Phone: [facility] 11-05-2024 11:18-0500 Heart rate 66 /min Maya Queener PA-C Work Phone: [facility] 11-05-2024 11:18-0500 SaO2% (BldA) [Mass fraction] 98 % Maya Queener PA-C Work Phone: [facility] 11-05-2024 11:18-0500 Systolic blood pressure 160 mm[Hg] Maya Sherwooder PA-C Work Phone: [facility] 09-25-2024 11:24-0500 Body height 160.[address] Armando Orozco MD Work Phone: [facility] 09-25-2024 11:24-0500 Body mass index (BMI) [Ratio] 21.9 kg/m2 Dr. Armando Orozco MD Work Phone: [facility] 09-25-2024 11:24-0500 Body weight 56.[address] Armando Orozco MD Work Phone: [facility] 09-25-2024 11:24-0500 Diastolic blood pressure 77 mm[Hg] Dr. Armando Orozco MD Work Phone: [facility] 09-25-2024 11:24-0500 Heart rate 66 /min Dr. Armando Orozco MD Work Phone: [facility] 09-25-2024 11:24-0500 Respiratory rate 18 /min Dr. Armando Orozco MD Work Phone: [facility] 09-25-2024 11:24-0500 SaO2% (BldA) [Mass fraction] 99 % Dr. Armando Orozco MD Work Phone: [facility] 09-25-2024 11:24-0500 Systolic blood pressure 138 mm[Hg] Dr. Armando Orozco MD Work Phone: [facility] 09-19-2024 14:26-0500 Body mass index (BMI) [Ratio] 22.02 kg/m2 Emelia Lynn PIT CLERK.STEAM PRESSER Work Phone: [facility] 09-19-2024 14:26-0500 Body weight 55.5 kg Emelia Lynn PIT CLERK.STEAM PRESSER Work Phone: [facility] 09-19-2024 14:26-0500 Diastolic blood pressure 84 mm[Hg] Emelia Batistahof PIT CLERK.STEAM PRESSER Work Phone: [facility] 09-19-2024 14:26-0500 Heart rate 69 /min Emelia Batistahof PIT CLERK.STEAM PRESSER Work Phone: [facility] 09-19-2024 14:26-0500 Respiratory rate 16 /min Emelia Lynn PIT CLERK.STEAM PRESSER Work Phone: [facility] 09-19-2024 14:26-0500 SaO2% (BldA) [Mass fraction] 100 % Emelia Lynn PIT CLERK.STEAM PRESSER Work Phone: [facility] 09-19-2024 14:26-0500 Systolic blood pressure 140 mm[Hg] Emelia Tannhof PIT CLERK.STEAM PRESSER Work Phone: [facility] 08-30-2024 11:35-0500 Body mass index (BMI) [Ratio] 21.4 kg/m2 Dr. Armando Orozco MD Work Phone: [facility] 08-30-2024 11:35-0500 Body temperature 98.4 [degF] Dr. Armando Orozco MD Work Phone: [facility] 08-30-2024 11:35-0500 Body weight 54.[address] Armando Orozco MD Work Phone: [facility] 08-30-2024 11:35-0500 Diastolic blood pressure 71 mm[Hg] Dr. Armando Orozco MD Work Phone: [facility] 08-30-2024 11:35-0500 Heart rate 81 /min Dr. Armando Orozco MD Work Phone: [facility] 08-30-2024 11:35-0500 Respiratory rate 14 /min Dr. Armando Orozco MD Work Phone: [facility] 08-30-2024 11:35-0500 SaO2% (BldA) [Mass fraction] 100 % Dr. Armando Orozco MD Work Phone: [facility] 08-30-2024 11:35-0500 Systolic blood pressure 144 mm[Hg] Dr. Armando Orozco MD Work Phone: [facility] 06-10-2024 19:36-0400 Body height 158.8 cm Armando Orozco MD Work Phone: [facility] 06-10-2024 19:36-0400 Body mass index (BMI) [Ratio] 21.67 kg/m2 Armando Orozco MD Work Phone: [facility] 06-10-2024 19:36-0400 Body weight 54.6 kg Armando Orozco MD Work Phone: [facility] 06-10-2024 19:36-0400 Diastolic blood pressure 78 mm[Hg] Armando Orozco MD Work Phone: [facility] 06-10-2024 19:36-0400 Heart rate 68 /min Armando Orozco MD Work Phone: [facility] 06-10-2024 19:36-0400 Respiratory rate 18 /min Armando Orozco MD Work Phone: [facility] 06-10-2024 19:36-0400 Systolic blood pressure 126 mm[Hg] Armando Orozco MD Work Phone: [facility] 05-22-2024 11:16-0400 Body mass index (BMI) [Ratio] 21.19 kg/m2 Verónica Wallace MD PhD Work Phone: [facility] 05-22-2024 11:16-0400 Body temperature 97 [degF] Verónica Wallace MD PhD Work Phone: [facility] 05-22-2024 11:16-0400 Body weight 54.25 kg Verónica Wallace MD PhD Work Phone: [facility] 05-22-2024 11:16-0400 Diastolic blood pressure 90 mm[Hg] Verónica Wallace MD PhD Work Phone: [facility] 05-22-2024 11:16-0400 Heart rate 69 /min Verónica Wallace MD PhD Work Phone: [facility] 05-22-2024 11:16-0400 Respiratory rate 16 /min Verónica Wallace MD PhD Work Phone: [facility] 05-22-2024 11:16-0400 Systolic blood pressure 180 mm[Hg] Verónica Wallace MD PhD Work Phone: [facility] 03-20-2024 10:33-0400 Body mass index (BMI) [Ratio] 21.06 kg/m2 Emelia Lynn APRN.CNP Work Phone: [facility] 03-20-2024 10:33-0400 Body weight 53.07 kg Emelia Tannhof PIT CLERK.STEAM PRESSER Work Phone: [facility] 03-20-2024 10:33-0400 Diastolic blood pressure 82 mm[Hg] Emelia Tannhof PIT CLERK.STEAM PRESSER Work Phone: [facility] 03-20-2024 10:33-0400 Heart rate 78 /min Emelia Tannhof PIT CLERK.STEAM PRESSER Work Phone: [facility] 03-20-2024 10:33-0400 Respiratory rate 16 /min Emelia Tannhof PIT CLERK.STEAM PRESSER Work Phone: [facility] 03-20-2024 10:33-0400 SaO2% (BldA) [Mass fraction] 100 % Emelia Tannhof PIT CLERK.STEAM PRESSER Work Phone: [facility] 03-20-2024 10:33-0400 Systolic blood pressure 150 mm[Hg] Emelia Tannhof PIT CLERK.STEAM PRESSER Work Phone: [facility] 02-14-2024 13:11-0400 Body mass index (BMI) [Ratio] 20.7 kg/m2 Emelia Tannhof PIT CLERK.STEAM PRESSER Work Phone: [facility] 02-14-2024 13:11-0400 Body weight 52.16 kg Emelia Tannhof PIT CLERK.STEAM PRESSER Work Phone: [facility] 02-14-2024 13:11-0400 Diastolic blood pressure 80 mm[Hg] Emelia Tannhof PIT CLERK.STEAM PRESSER Work Phone: [facility] 02-14-2024 13:11-0400 Heart rate 79 /min Emelia Tannhof PIT CLERK.STEAM PRESSER Work Phone: [facility] 02-14-2024 13:11-0400 Respiratory rate 16 /min Emelia Tannhof PIT CLERK.STEAM PRESSER Work Phone: [facility] 02-14-2024 13:11-0400 SaO2% (BldA) [Mass fraction] 98 % Emelia Tannhof PIT CLERK.STEAM PRESSER Work Phone: [facility] 02-14-2024 13:11-0400 Systolic blood pressure 138 mm[Hg] Emelia Lynn PIT CLERK.STEAM PRESSER Work Phone: [facility] 01-12-2024 15:52-0400 Body mass index (BMI) [Ratio] 20.55 kg/m2 Vega Granger Jr., MD Work Phone: [facility] 01-12-2024 15:52-0400 Body weight 51.8 kg Vega Granger Jr., MD Work Phone: [facility] 01-12-2024 15:52-0400 Diastolic blood pressure 94 mm[Hg] Vega Granger Jr., MD Work Phone: [facility] Comment on above: (LT) pediatric cuff sitting 01-12-2024 15:52-0400 Heart rate 64 /min Vega Granger Jr., MD Work Phone: [facility] 01-12-2024 15:52-0400 Respiratory rate 16 /min Vega Granger Jr., MD Work Phone: [facility] 01-12-2024 15:52-0400 SaO2% (BldA) [Mass fraction] 98 % Vega Granger Jr., MD Work Phone: [facility] 01-12-2024 15:52-0400 Systolic blood pressure 152 mm[Hg] Vega Granger Jr., MD Work Phone: [facility] Comment on above: (LT) pediatric cuff sitting 01-11-2024 08:24-0400 Body mass index (BMI) [Ratio] 20.52 kg/m2 Emelia Lynn PIT CLERK.STEAM PRESSER Work Phone: [facility] 01-11-2024 08:24-0400 Body weight 51.71 kg Emelia Lynn PIT CLERK.STEAM PRESSER Work Phone: [facility] 01-11-2024 08:24-0400 Diastolic blood pressure 100 mm[Hg] Emelia Wilderf PIT CLERK.STEAM PRESSER Work Phone: [facility] 01-11-2024 08:24-0400 Heart rate 62 /min Emelia Wilderf PIT CLERK.STEAM PRESSER Work Phone: [facility] 01-11-2024 08:24-0400 Respiratory rate 16 /min Emelia Lynn PIT CLERK.STEAM PRESSER Work Phone: [facility] 01-11-2024 08:24-0400 SaO2% (BldA) [Mass fraction] 98 % Emelia Wilderf PIT CLERK.STEAM PRESSER Work Phone: [facility] 01-11-2024 08:24-0400 Systolic blood pressure 140 mm[Hg] Emelia Vinodf PIT CLERK.STEAM PRESSER Work Phone: [facility] 01-06-2024 14:09-0400 Body temperature 98.3 [degF] Dr. Armando Orozco Work Phone: [facility] 01-06-2024 14:09-0400 Diastolic blood pressure 58 mm[Hg] Dr. Armando Orozco Work Phone: [facility] 01-06-2024 14:09-0400 Heart rate 69 /min Dr. Armando Orozco Work Phone: [facility] 01-06-2024 14:09-0400 Respiratory rate 21 /min Dr. Armando Orozco Work Phone: [facility] 01-06-2024 14:09-0400 SaO2% (BldA) [Mass fraction] 97 % Dr. Armando Orozco Work Phone: [facility] 01-06-2024 14:09-0400 Systolic blood pressure 165 mm[Hg] Dr. Armando Orozco Work Phone: [facility] 01-06-2024 04:41-0400 Body mass index (BMI) [Ratio] 23.6 kg/m2 Dr. Armando Orozco Work Phone: [facility] 01-06-2024 04:41-0400 Body weight 60.[address] Armando Orozco Work Phone: [facility] 01-05-2024 13:56-0400 Body height 160.[address] Armando Orozco Work Phone: [facility] 01-04-2024 21:31-0400 Body temperature 98 [degF] Dr. Armando Orozco Work Phone: 1(665)425-292824 [place] [address] 01-04-2024 21:31-0400 Diastolic blood pressure 72 mm[Hg] Dr. Armando Orozco Work Phone: 0(617)762-099224 [place] [address] 01-04-2024 21:31-0400 Heart rate 85 /min Dr. Armando Orozco Work Phone: 5(068)518-641824 [place] [address] 01-04-2024 21:31-0400 Respiratory rate 15 /min Dr. Armando Orozco Work Phone: 2(483)[phone] [place] [address] 01-04-2024 21:31-0400 SaO2% (BldA) [Mass fraction] 95 % Dr. Armando Orozco Work Phone: [facility] 01-04-2024 21:31-0400 Systolic blood pressure 147 mm[Hg] Dr. Armando Orozco Work Phone: [facility] 01-04-2024 17:08-0400 Body mass index (BMI) [Ratio] 21.2 kg/m2 Dr. Armando Orozco Work Phone: 6(424)[phone] [place] [address] 01-04-2024 17:08-0400 Body weight 54.[address] Armando Orozco Work Phone: [facility] 01-04-2024 15:00-0400 Body height 160.[address] Armando Orozco Work Phone: [facility] 12-21-2023 08:54-0400 Body weight 53.07 kg Emelia Lynn APRN.STEAM PRESSER Work Phone: [facility] 12-21-2023 08:54-0400 Diastolic blood pressure 80 mm[Hg] Emelia Lynn APRN.STEAM PRESSER Work Phone: [facility] 12-21-2023 08:54-0400 Heart rate 79 /min Emelia Lynn PIT CLERK.STEAM PRESSER Work Phone: [facility] 12-21-2023 08:54-0400 Respiratory rate 16 /min Emelia Lynn PIT CLERK.STEAM PRESSER Work Phone: [facility] 12-21-2023 08:54-0400 SaO2% (BldA) [Mass fraction] 98 % Emelia Lynn PIT CLERK.STEAM PRESSER Work Phone: [facility] 12-21-2023 08:54-0400 Systolic blood pressure 140 mm[Hg] Emelia Lynn PIT CLERK.STEAM PRESSER Work Phone: [facility] 11-29-2023 12:31-0400 Body height 160.[address] Armando Orozco Work Phone: [facility] 11-29-2023 12:31-0400 Body mass index (BMI) [Ratio] 20.9 kg/m2 Dr. Armando Orozco Work Phone: [facility] 11-29-2023 12:31-0400 Body weight 53.[address] Armando Orozco Work Phone: [facility] 11-29-2023 12:31-0400 Diastolic blood pressure 82 mm[Hg] Dr. Armando Orozco Work Phone: [facility] 11-29-2023 12:31-0400 Heart rate 64 /min Dr. Armando Orozco Work Phone: [facility] 11-29-2023 12:31-0400 Respiratory rate 18 /min Dr. Armando Orozco Work Phone: [facility] 11-29-2023 12:31-0400 SaO2% (BldA) [Mass fraction] 96 % Dr. Armando Orozco Work Phone: [facility] 11-29-2023 12:31-0400 Systolic blood pressure 189 mm[Hg] Dr. Armando Orozco Work Phone: [facility] 11-20-2023 13:48-0400 Body weight 54.25 kg Armando Orozco MD Work Phone: [facility] 11-20-2023 13:48-0400 Diastolic blood pressure 84 mm[Hg] Armando Orozco MD Work Phone: [facility] 11-20-2023 13:48-0400 Heart rate 62 /min Armando Orozco MD Work Phone: [facility] 11-20-2023 13:48-0400 Respiratory rate 16 /min Armando Orozco MD Work Phone: [facility] 11-20-2023 13:48-0400 Systolic blood pressure 140 mm[Hg] Armando Orozco MD Work Phone: [facility] 11-15-2023 18:00-0500 Body temperature 97.7 [degF] Dr. Armando Orozco Work Phone: [facility] 11-15-2023 18:00-0500 Diastolic blood pressure 83 mm[Hg] Dr. Armando Orozco Work Phone: [facility] 11-15-2023 18:00-0500 Heart rate 108 /min Dr. Armando Orozco Work Phone: [facility] 11-15-2023 18:00-0500 Respiratory rate 16 /min Dr. Armando Orozco Work Phone: [facility] 11-15-2023 18:00-0500 SaO2% (BldA) [Mass fraction] 98 % Dr. Armando Orozco Work Phone: [facility] 11-15-2023 18:00-0500 Systolic blood pressure 153 mm[Hg] Dr. Armando Orozco Work Phone: [facility] 11-15-2023 15:30-0500 Body mass index (BMI) [Ratio] 20.5 kg/m2 Dr. Armando Orozco Work Phone: [facility] 11-14-2023 10:44-0500 Body height 160.[address] Armando Orozco Work Phone: [facility] 11-14-2023 10:44-0500 Body weight 52.[address] Armando Orozco Work Phone: [facility] 11-13-2023 20:09-0500 Body temperature 98.2 [degF] Dr. Armando Orozco Work Phone: [facility] 11-13-2023 20:09-0500 Diastolic blood pressure 91 mm[Hg] Dr. Armando Orozco Work Phone: [facility] 11-13-2023 20:09-0500 Heart rate 91 /min Dr. Armando Orozco Work Phone: 5(436)[phone] [place] [address] 11-13-2023 20:09-0500 Respiratory rate 18 /min Dr. Armando Orozco Work Phone: 9(722)[phone] [place] [address] 11-13-2023 20:09-0500 SaO2% (BldA) [Mass fraction] 98 % Dr. Armando Orozco Work Phone: [facility] 11-13-2023 20:09-0500 Systolic blood pressure 164 mm[Hg] Dr. Armando Orozco Work Phone: [facility] 11-13-2023 13:02-0500 Body height 160.[address] Armando Orozco Work Phone: [facility] 11-13-2023 13:02-0500 Body mass index (BMI) [Ratio] 20.3 kg/m2 Dr. Armando Orozco Work Phone: [facility] 11-13-2023 13:02-0500 Body weight 52.[address] Armando Orozco Work Phone: [facility] 10-31-2023 16:15-0500 Body height 158.8 cm Carlin SMITH-C Work Phone: [facility] 10-31-2023 16:15-0500 Body temperature 97.5 [degF] Carlin Huffman PA-C Work Phone: [facility] 10-31-2023 16:15-0500 Body weight 54.98 kg Carlin Huffman PA-C Work Phone: [facility] 10-31-2023 16:15-0500 Diastolic blood pressure 70 mm[Hg] Carlin Huffman PA-C Work Phone: [facility] 10-31-2023 16:15-0500 Heart rate 79 /min Carlin Huffman PA-C Work Phone: [facility] 10-31-2023 16:15-0500 SaO2% (BldA) [Mass fraction] 97 % Carlin Huffman PA-C Work Phone: [facility] 10-31-2023 16:15-0500 Systolic blood pressure 136 mm[Hg] Carlin Huffman PA-C Work Phone: [facility] 10-16-2023 11:57-0500 Body mass index (BMI) [Ratio] 20.9 kg/m2 Dr. Armando Orozco Work Phone: [facility] 10-16-2023 11:57-0500 Body weight 53.[address] Armando Orozco Work Phone: [facility] 10-16-2023 11:57-0500 Diastolic blood pressure 80 mm[Hg] Dr. Armando Orozco Work Phone: [facility] 10-16-2023 11:57-0500 Heart rate 68 /min Dr. Armando Orozco Work Phone: [facility] 10-16-2023 11:57-0500 Respiratory rate 18 /min Dr. Armando Orozco Work Phone: [facility] 10-16-2023 11:57-0500 SaO2% (BldA) [Mass fraction] 97 % Dr. Armando Orozco Work Phone: [facility] 10-16-2023 11:57-0500 Systolic blood pressure 179 mm[Hg] Dr. Armando Orozco Work Phone: [facility] 09-18-2023 13:03-0500 Diastolic blood pressure 74 mm[Hg] Dr. Armando Orozco Work Phone: [facility] 09-18-2023 13:03-0500 Heart rate 47 /min Dr. Armando Orozco Work Phone: [facility] 09-18-2023 13:03-0500 Respiratory rate 10 /min Dr. Armando Orozco Work Phone: [facility] 09-18-2023 13:03-0500 SaO2% (BldA) [Mass fraction] 94 % Dr. Armando Orozco Work Phone: [facility] 09-18-2023 13:03-0500 Systolic blood pressure 164 mm[Hg] Dr. Armando Orozco Work Phone: [facility] 09-18-2023 10:47-0500 Body mass index (BMI) [Ratio] 21.2 kg/m2 Dr. Armando Orozco Work Phone: [facility] 09-18-2023 10:47-0500 Body temperature 97.3 [degF] Dr. Armando Orozco Work Phone: [facility] 09-18-2023 10:47-0500 Body weight 54.[address] Armando Orozco Work Phone: [facility] 07-26-2023 10:34-0500 Body height 160 cm Juan Kilpatrick CNP Work Phone: [facility] 07-26-2023 10:34-0500 Body mass index (BMI) [Ratio] 19.49 kg/m2 Juan Kilpatrick CNP Work Phone: [facility] 07-26-2023 10:34-0500 Body weight 49.9 kg Juan Kilpatrick CNP Work Phone: [facility] 07-05-2023 13:35-0400 Diastolic blood pressure 76 mm[Hg] Maciej Birmingham Jr., DPM Work Phone: [facility] 07-05-2023 13:35-0400 Heart rate 54 /min Maciej Dillon Jr., DPM Work Phone: [facility] 07-05-2023 13:35-0400 Systolic blood pressure 177 mm[Hg] Maciej Valencia Jr., DPM Work Phone: [facility] 07-05-2023 13:27-0400 Body temperature 98.2 [degF] Maciej Valencia Jr., DPM Work Phone: [facility] 05-12-2023 15:11-0400 Body weight 55.52 kg Sanna Rubin PIT CLERK.STEAM PRESSER Work Phone: [facility] 05-12-2023 15:11-0400 Diastolic blood pressure 78 mm[Hg] Sanna Rubin PIT CLERK.STEAM PRESSER Work Phone: [facility] 05-12-2023 15:11-0400 Heart rate 77 /min Sanna Rubin PIT CLERK.STEAM PRESSER Work Phone: [facility] 05-12-2023 15:11-0400 Respiratory rate 16 /min Sanna Rubin PIT CLERK.STEAM PRESSER Work Phone: [facility] 05-12-2023 15:11-0400 SaO2% (BldA) [Mass fraction] 100 % Sanna Rubin PIT CLERK.STEAM PRESSER Work Phone: [facility] 05-12-2023 15:11-0400 Systolic blood pressure 132 mm[Hg] Sanna Rubin PIT CLERK.STEAM PRESSER Work Phone: [facility] 05-05-2023 15:11-0400 Body temperature 98.2 [degF] Jose Pendlebury PIT CLERK.STEAM PRESSER Work Phone: [facility] 05-05-2023 15:11-0400 Body weight 55.16 kg Jose Pendlemanuel PIT CLERK.STEAM PRESSER Work Phone: [facility] 05-05-2023 15:11-0400 Diastolic blood pressure 82 mm[Hg] Jose Pendlebury PIT CLERK.STEAM PRESSER Work Phone: [facility] 05-05-2023 15:11-0400 Heart rate 63 /min Jose Pendlebury PIT CLERK.STEAM PRESSER Work Phone: [facility] 05-05-2023 15:11-0400 Respiratory rate 18 /min Jose Pendlebury PIT CLERK.STEAM PRESSER Work Phone: [facility] 05-05-2023 15:11-0400 SaO2% (BldA) [Mass fraction] 98 % Jose Pendlebury PIT CLERK.STEAM PRESSER Work Phone: [facility] 05-05-2023 15:11-0400 Systolic blood pressure 160 mm[Hg] Jose Pendlebury PIT CLERK.STEAM PRESSER Work Phone: [facility] 04-20-2023 12:33-0400 Body weight 54.88 kg Emelia Tannhof PIT CLERK.STEAM PRESSER Work Phone: [facility] 04-20-2023 12:33-0400 Diastolic blood pressure 56 mm[Hg] Emelia Tannhof PIT CLERK.STEAM PRESSER Work Phone: [facility] 04-20-2023 12:33-0400 Heart rate 57 /min Emelia Tannhof PIT CLERK.STEAM PRESSER Work Phone: [facility] 04-20-2023 12:33-0400 Respiratory rate 16 /min Emelia Tannhof PIT CLERK.STEAM PRESSER Work Phone: [facility] 04-20-2023 12:33-0400 SaO2% (BldA) [Mass fraction] 96 % Emelia Tannhof PIT CLERK.STEAM PRESSER Work Phone: [facility] 04-20-2023 12:33-0400 Systolic blood pressure 112 mm[Hg] Emelia Tannhof PIT CLERK.STEAM PRESSER Work Phone: [facility] 04-12-2023 11:32-0400 Body temperature 97.7 [degF] Dr. Armando Orozco Work Phone: [facility] 04-12-2023 11:32-0400 Body weight 54.[address] Armando Orozco Work Phone: [facility] 04-12-2023 11:32-0400 Diastolic blood pressure 62 mm[Hg] Dr. Armando Orozco Work Phone: [facility] 04-12-2023 11:32-0400 Heart rate 60 /min Dr. Armando Orozco Work Phone: [facility] 04-12-2023 11:32-0400 Respiratory rate 18 /min Dr. Armando Orozco Work Phone: [facility] 04-12-2023 11:32-0400 SaO2% (BldA) [Mass fraction] 100 % Dr. Armando Orozco Work Phone: [facility] 04-12-2023 11:32-0400 Systolic blood pressure 142 mm[Hg] Dr. Armando Orozco Work Phone: [facility] 03-29-2023 10:20-0400 Body weight 55.34 kg Emelia Wilderf PIT CLERK.STEAM PRESSER Work Phone: [facility] 03-29-2023 10:20-0400 Diastolic blood pressure 64 mm[Hg] Emelia Tannhof PIT CLERK.STEAM PRESSER Work Phone: [facility] 03-29-2023 10:20-0400 Heart rate 71 /min Emelia Lynnehof PIT CLERK.STEAM PRESSER Work Phone: [facility] 03-29-2023 10:20-0400 Respiratory rate 16 /min Emelia Tannhof PIT CLERK.STEAM PRESSER Work Phone: [facility] 03-29-2023 10:20-0400 SaO2% (BldA) [Mass fraction] 98 % Emeliaevan Batistahof PIT CLERK.STEAM PRESSER Work Phone: [facility] 03-29-2023 10:20-0400 Systolic blood pressure 116 mm[Hg] Emelia Tannhof PIT CLERK.STEAM PRESSER Work Phone: [facility] 03-07-2023 15:14-0400 Body weight 55.2 kg Armando Oroczo MD Work Phone: [facility] 03-07-2023 15:14-0400 Diastolic blood pressure 72 mm[Hg] Armando Orozco MD Work Phone: [facility] 03-07-2023 15:14-0400 Heart rate 68 /min Armando Orozco MD Work Phone: [facility] 03-07-2023 15:14-0400 Respiratory rate 16 /min Armando Orozco MD Work Phone: [facility] 03-07-2023 15:14-0400 Systolic blood pressure 120 mm[Hg] Armando Orozco MD Work Phone: [facility] 02-22-2023 11:41-0400 Body height 160.[address] Armando Orozco Work Phone: [facility] 02-22-2023 11:41-0400 Body mass index (BMI) [Ratio] 21.6 kg/m2 Dr. Armando Orozco Work Phone: [facility] 02-22-2023 11:41-0400 Body weight 55.[address] Armando Orozco Work Phone: [facility] 02-22-2023 11:41-0400 Diastolic blood pressure 78 mm[Hg] Dr. Armando Orozco Work Phone: [facility] 02-22-2023 11:41-0400 Heart rate 62 /min Dr. Armando Orozco Work Phone: [facility] 02-22-2023 11:41-0400 Respiratory rate 16 /min Dr. Armando Orozco Work Phone: [facility] 02-22-2023 11:41-0400 Systolic blood pressure 130 mm[Hg] Dr. Armando Orozco Work Phone: [facility] 01-12-2023 07:44-0400 Body weight 55.34 kg Sonia Damon APRN.CNP Work Phone: [facility] 01-12-2023 07:44-0400 Diastolic blood pressure 62 mm[Hg] Sonia Damon PIT CLERK.STEAM PRESSER Work Phone: [facility] 01-12-2023 07:44-0400 Heart rate 58 /min Sonia Damon PIT CLERK.STEAM PRESSER Work Phone: [facility] 01-12-2023 07:44-0400 Respiratory rate 14 /min Sonia Damon PIT CLERK.STEAM PRESSER Work Phone: [facility] 01-12-2023 07:44-0400 Systolic blood pressure 116 mm[Hg] Sonia Damon PIT CLERK.STEAM PRESSER Work Phone: [facility] 12-07-2022 11:48-0400 Body height 160.[address] Armando Orozco Work Phone: [facility] 12-07-2022 11:48-0400 Body mass index (BMI) [Ratio] 22.1 kg/m2 Dr. Armando Orozco Work Phone: [facility] 12-07-2022 11:48-0400 Body weight 56.[address] Armando Orozco Work Phone: [facility] 12-07-2022 11:48-0400 Diastolic blood pressure 76 mm[Hg] Dr. Armando Orozco Work Phone: [facility] 12-07-2022 11:48-0400 Heart rate 60 /min Dr. Armando Orozco Work Phone: [facility] 12-07-2022 11:48-0400 Respiratory rate 18 /min Dr. Armando Orozco Work Phone: [facility] 12-07-2022 11:48-0400 SaO2% (BldA) [Mass fraction] 98 % Dr. Armando Orozco Work Phone: [facility] 12-07-2022 11:48-0400 Systolic blood pressure 152 mm[Hg] Dr. Armando Orozco Work Phone: [facility] 09-26-2022 14:17-0500 Body height 160.02 cm Armando Orozco Work Phone: [facility] [address] Work Phone: 09-26-2022 14:17-0500 Body mass index (BMI) [Ratio] 21.26 kg/m2 Armando rOozco Work Phone: [facility] [address] Work Phone: 09-26-2022 14:17-0500 Body surface area Derived from formula 1.56 m2 Armando Orozco Work Phone: [facility] [address] Work Phone: 09-26-2022 14:17-0500 Body temperature 91.6 [degF] Armando Orozco Work Phone: [facility] [address] Work Phone: 09-26-2022 14:17-0500 Body weight 54.43 kg Armando Orozco Work Phone: [facility] [address] Work Phone: 09-08-2022 10:47-0500 Body height 160.[address] Armando Orozco Work Phone: [facility] 09-08-2022 10:47-0500 Body mass index (BMI) [Ratio] 21.2 kg/m2 Dr. Armando Orozco Work Phone: [facility] 09-08-2022 10:47-0500 Body weight 54.[address] Armando Orozco Work Phone: [facility] 09-08-2022 10:47-0500 Diastolic blood pressure 62 mm[Hg] Dr. Armando Orozco Work Phone: [facility] 09-08-2022 10:47-0500 Heart rate 64 /min Dr. Armando Orozco Work Phone: [facility] 09-08-2022 10:47-0500 Respiratory rate 16 /min Dr. Armando Orozco Work Phone: [facility] 09-08-2022 10:47-0500 Systolic blood pressure 154 mm[Hg] Dr. Armando Orozco Work Phone: [facility] 07-13-2022 11:31-0400 Body weight 53.98 kg Nik Walsh MD Work Phone: [facility] 07-13-2022 11:31-0400 Diastolic blood pressure 60 mm[Hg] Nik Walsh MD Work Phone: [facility] 07-13-2022 11:31-0400 Heart rate 65 /min Nik Walsh MD Work Phone: [facility] 07-13-2022 11:31-0400 Respiratory rate 18 /min Nik Walsh MD Work Phone: [facility] 07-13-2022 11:31-0400 SaO2% (BldA) [Mass fraction] 96 % Nik Walsh MD Work Phone: [facility] 07-13-2022 11:31-0400 Systolic blood pressure 114 mm[Hg] Nik Walsh MD Work Phone: [facility] 07-11-2022 13:36-0400 Body height 161.29 cm Armando Orozco Work Phone: [facility] Work Phone: 07-11-2022 13:36-0400 Body mass index (BMI) [Ratio] 20.97 kg/m2 Armando Orozco Work Phone: [facility] Work Phone: 07-11-2022 13:36-0400 Body surface area Derived from formula 1.57 m2 Armando Orozco Work Phone: [facility] Work Phone: 07-11-2022 13:36-0400 Body temperature 97.6 [degF] Armando Orozco Work Phone[facility] Work Phone: 07-11-2022 13:36-0400 Body weight 54.55 kg Armando Orozco Work Phone: [facility] Work Phone: 06-22-2022 13:18-0400 Body mass index (BMI) [Ratio] 21.4 kg/m2 Dr. Armando Orozco Work Phone: [facility] 06-22-2022 13:18-0400 Body weight 54.[address] Armando Orozco Work Phone: [facility] 06-22-2022 13:10-0400 Body mass index (BMI) [Ratio] 21.4 kg/m2 Dr. Armando Orozco Work Phone: [facility] 06-22-2022 13:10-0400 Body weight 54.[address] Armando Orozco Work Phone: [facility] 06-22-2022 13:10-0400 Diastolic blood pressure 72 mm[Hg] Dr. Armando Orozco Work Phone: [facility] 06-22-2022 13:10-0400 Heart rate 52 /min Dr. Armando Orozco Work Phone: [facility] 06-22-2022 13:10-0400 Respiratory rate 18 /min Dr. Armando Orozco Work Phone: [facility] 06-22-2022 13:10-0400 SaO2% (BldA) [Mass fraction] 98 % Dr. Armando Orozco Work Phone: [facility] 06-22-2022 13:10-0400 Systolic blood pressure 134 mm[Hg] Dr. Armando Orozco Work Phone: [facility] 05-05-2022 08:02-0400 Body weight 54.88 kg Emelia Lynn PIT CLERK.STEAM PRESSER Work Phone: [facility] 05-05-2022 08:02-0400 Diastolic blood pressure 52 mm[Hg] Emelia Batistahof PIT CLERK.STEAM PRESSER Work Phone: [facility] 05-05-2022 08:02-0400 Heart rate 62 /min Emelia Batistahof PIT CLERK.STEAM PRESSER Work Phone: [facility] 05-05-2022 08:02-0400 Respiratory rate 16 /min Emelia Batistahof PIT CLERK.STEAM PRESSER Work Phone: [facility] 05-05-2022 08:02-0400 SaO2% (BldA) [Mass fraction] 100 % Emelia Batistahof PIT CLERK.STEAM PRESSER Work Phone: [facility] 05-05-2022 08:02-0400 Systolic blood pressure 100 mm[Hg] Emelia Batistahof PIT CLERK.STEAM PRESSER Work Phone: [facility] 05-04-2022 10:58-0400 Body height 160.[address] Armando Orozco Work Phone: [facility] Work Phone: 05-04-2022 10:58-0400 Body mass index (BMI) [Ratio] 21.2 kg/m2 Dr. Armando Orozco Work Phone: [facility] Work Phone: 05-04-2022 10:58-0400 Body weight 54.[address] Armando Orozco Work Phone: [facility] Work Phone: 05-04-2022 10:58-0400 Diastolic blood pressure 69 mm[Hg] Dr. Armando Orozco Work Phone: [facility] Work Phone: 05-04-2022 10:58-0400 Heart rate 62 /min Dr. Armando Orozco Work Phone: [facility] Work Phone: 05-04-2022 10:58-0400 Respiratory rate 18 /min Dr. Armando Orozco Work Phone: [facility] Work Phone: 05-04-2022 10:58-0400 SaO2% (BldA) [Mass fraction] 100 % Dr. Armando Orozco Work Phone: [facility] Work Phone: 05-04-2022 10:58-0400 Systolic blood pressure 152 mm[Hg] Dr. Armando Orozco Work Phone: [facility] Work Phone: 03-30-2022 13:39-0400 Body height 160.[address] Armando Orozco Work Phone: [facility] Work Phone: 03-30-2022 13:39-0400 Body mass index (BMI) [Ratio] 21 kg/m2 Dr. Armando Orozco Work Phone: [facility] Work Phone: 03-30-2022 13:39-0400 Body weight 53.[address] Armando Orozco Work Phone: [facility] Work Phone: 03-30-2022 13:39-0400 Diastolic blood pressure 64 mm[Hg] Dr. Armando Orozco Work Phone: [facility] Work Phone: 03-30-2022 13:39-0400 Heart rate 70 /min Dr. Armando Orozco Work Phone: [facility] Work Phone: 03-30-2022 13:39-0400 SaO2% (BldA) [Mass fraction] 97 % Dr. Armando Orozco Work Phone: [facility] Work Phone: 03-30-2022 13:39-0400 Systolic blood pressure 117 mm[Hg] Dr. Armando Orozco Work Phone: [facility] Work Phone: 01-06-2022 10:30-0400 Body mass index (BMI) [Ratio] 20.9 kg/m2 Dr. Armando Orozco Work Phone: [facility] Work Phone: 01-06-2022 10:30-0400 Body temperature 97.4 [degF] Dr. Armando Orozco Work Phone: [facility] Work Phone: 01-06-2022 10:30-0400 Body weight 53.[address] Armando Orozco Work Phone: [facility] Work Phone: 01-06-2022 10:30-0400 Diastolic blood pressure 58 mm[Hg] Dr. Armando Orozco Work Phone: [facility] Work Phone: 01-06-2022 10:30-0400 Heart rate 74 /min Dr. Armando Orozco Work Phone: [facility] Work Phone: 01-06-2022 10:30-0400 Respiratory rate 16 /min Dr. Armando Orozco Work Phone: [facility] Work Phone: 01-06-2022 10:30-0400 SaO2% (BldA) [Mass fraction] 95 % Dr. Armando Orozco Work Phone: [facility] Work Phone: 01-06-2022 10:30-0400 Systolic blood pressure 113 mm[Hg] Dr. Armando Orozco Work Phone: [facility] Work Phone: 01-06-2022 10:30-0400 Body mass index (BMI) [Ratio] 20.9 kg/m2 Dr. Armando Orozco Work Phone: [facility] Work Phone: 01-06-2022 10:30-0400 Body temperature 97.4 [degF] Dr. Armando Orozco Work Phone: [facility] Work Phone: 01-06-2022 10:30-0400 Body weight 53.[address] Armando Orozco Work Phone: [facility] Work Phone: 01-06-2022 10:30-0400 Diastolic blood pressure 58 mm[Hg] Dr. Armando Orozco Work Phone: [facility] Work Phone: 01-06-2022 10:30-0400 Heart rate 74 /min Dr. Armando Orozco Work Phone: [facility] Work Phone: 01-06-2022 10:30-0400 Respiratory rate 16 /min Dr. Armando Orozco Work Phone: [facility] Work Phone: 01-06-2022 10:30-0400 SaO2% (BldA) [Mass fraction] 95 % Dr. Armando Orozco Work Phone: [facility] Work Phone: 01-06-2022 10:30-0400 Systolic blood pressure 113 mm[Hg] Dr. Armando Orozco Work Phone: [facility] Work Phone: 01-03-2022 13:15-0400 Body mass index (BMI) [Ratio] 20.9 kg/m2 Dr. Armando Orozco Work Phone: [facility] Work Phone: 01-03-2022 13:15-0400 Body weight 53.[address] Armando Orozco Work Phone: [facility] Work Phone: 01-03-2022 13:15-0400 Diastolic blood pressure 66 mm[Hg] Dr. Armando Orozco Work Phone: [facility] Work Phone: 01-03-2022 13:15-0400 Heart rate 73 /min Dr. Armando Orozco Work Phone: [facility] Work Phone: 01-03-2022 13:15-0400 SaO2% (BldA) [Mass fraction] 98 % Dr. Armando Orozco Work Phone: [facility] Work Phone: 01-03-2022 13:15-0400 Systolic blood pressure 112 mm[Hg] Dr. Armando Orozco Work Phone: [facility] Work Phone: 01-03-2022 13:15-0400 Body mass index (BMI) [Ratio] 20.9 kg/m2 Dr. Armando Orozco Work Phone: [facility] Work Phone: 01-03-2022 13:15-0400 Body weight 53.[address] Armando Orozco Work Phone: [facility] Work Phone: 01-03-2022 13:15-0400 Diastolic blood pressure 66 mm[Hg] Dr. Armando Orozco Work Phone: [facility] Work Phone: 01-03-2022 13:15-0400 Heart rate 73 /min Dr. Armando Orozco Work Phone: [facility] Work Phone: 01-03-2022 13:15-0400 SaO2% (BldA) [Mass fraction] 98 % Dr. Armando Orozco Work Phone: [facility] Work Phone: 01-03-2022 13:15-0400 Systolic blood pressure 112 mm[Hg] Dr. Armando Orozco Work Phone: [facility] Work Phone: 12-10-2021 13:23-0400 Body height 158.8 cm Armando Orozco MD Work Phone: [facility] 12-10-2021 13:23-0400 Body weight 52.8 kg Armando Orozco MD Work Phone: [facility] 12-10-2021 13:23-0400 Diastolic blood pressure 72 mm[Hg] Armando Orozco MD Work Phone: [facility] 12-10-2021 13:23-0400 Heart rate 60 /min Armando Orozco MD Work Phone: [facility] 12-10-2021 13:23-0400 Respiratory rate 16 /min Armando Orozco MD Work Phone: [facility] 12-10-2021 13:23-0400 Systolic blood pressure 114 mm[Hg] Armando Orozco MD Work Phone: [facility] 11-01-2021 09:58-0500 Body height 160.[address] Armando Orozco Work Phone: [facility] Work Phone: 11-01-2021 09:58-0500 Body mass index (BMI) [Ratio] 20.3 kg/m2 Dr. Armando Orozco Work Phone: [facility] Work Phone: 11-01-2021 09:58-0500 Body weight 52.[address] Armando Orozco Work Phone: [facility] Work Phone: 11-01-2021 09:58-0500 Diastolic blood pressure 65 mm[Hg] Dr. Armadno Orozco Work Phone: [facility] Work Phone: 11-01-2021 09:58-0500 Heart rate 74 /min Dr. Armando Orozco Work Phone: [facility] Work Phone: 11-01-2021 09:58-0500 Respiratory rate 18 /min Dr. Armando Orozco Work Phone: [facility] Work Phone: 11-01-2021 09:58-0500 SaO2% (BldA) [Mass fraction] 100 % Dr. Armando Orozco Work Phone: [facility] Work Phone: 11-01-2021 09:58-0500 Systolic blood pressure 126 mm[Hg] Dr. Armando Orozco Work Phone: [facility] Work Phone: 08-30-2021 02:53-0500 Body temperature 98 [degF] Dr. Armando Orozco Work Phone: [facility] Work Phone: 08-30-2021 02:53-0500 Diastolic blood pressure 63 mm[Hg] Dr. Armando Orozco Work Phone: [facility] Work Phone: 08-30-2021 02:53-0500 Heart rate 82 /min Dr. Armando Orozco Work Phone: [facility] Work Phone: 08-30-2021 02:53-0500 Respiratory rate 16 /min Dr. Armando Orozco Work Phone: [facility] Work Phone: 08-30-2021 02:53-0500 SaO2% (BldA) [Mass fraction] 99 % Dr. Armando Orozco Work Phone: [facility] Work Phone: 08-30-2021 02:53-0500 Systolic blood pressure 143 mm[Hg] Dr. Armando Orozco Work Phone: [facility] Work Phone: 08-29-2021 19:20-0500 Body mass index (BMI) [Ratio] 20 kg/m2 Dr. Armando Orozco Work Phone: [facility] Work Phone: 08-29-2021 19:20-0500 Body weight 51.[address] Armando Orozco Work Phone: [facility] Work Phone: 08-25-2021 09:28-0500 Body mass index (BMI) [Ratio] 20.5 kg/m2 Dr. Armando Orozco Work Phone: [facility] Work Phone: 08-25-2021 09:28-0500 Body weight 52.[address] Armando Orozco Work Phone: [facility] Work Phone: 08-25-2021 09:28-0500 Diastolic blood pressure 73 mm[Hg] Dr. Armando Orozco Work Phone: [facility] Work Phone: 08-25-2021 09:28-0500 Heart rate 71 /min Dr. Armando Orozco Work Phone: [facility] Work Phone: 08-25-2021 09:28-0500 Respiratory rate 18 /min Dr. Armando Orozco Work Phone: [facility] Work Phone: 08-25-2021 09:28-0500 SaO2% (BldA) [Mass fraction] 97 % Dr. Armando Orozco Work Phone: [facility] Work Phone: 08-25-2021 09:28-0500 Systolic blood pressure 104 mm[Hg] Dr. Armando Orozco Work Phone: [facility] Work Phone: 04-28-2021 09:56-0400 Body height 160 cm Love Ferraro [facility] Work Phone: [facility] 04-28-2021 09:56-0400 Body mass index (BMI) [Ratio] 20.37 kg/m2 Love Ferraro [employer] Work Phone: [facility] 04-28-2021 09:56-0400 Body weight 52.16 kg Love Ferraro CNP Work Phone: [facility] 04-28-2021 09:56-0400 Diastolic blood pressure 56 mm[Hg] Love Ferraro [employer] Work Phone: [facility] 04-28-2021 09:56-0400 Heart rate 70 /min Love Ferraro [employer] Work Phone: [facility] 04-28-2021 09:56-0400 SaO2% (BldA) [Mass fraction] 99 % Love Ferraro CNP Work Phone: [facility] 04-28-2021 09:56-0400 Systolic blood pressure 120 mm[Hg] Love Ferraro [employer] Work Phone: [facility] 04-21-2021 08:17-0400 Body temperature 97.59 [degF] [facility] Work Phone: [facility] 04-21-2021 08:17-0400 Diastolic blood pressure 61 mm[Hg] [facility] Work Phone: [facility] 04-21-2021 08:17-0400 Heart rate 74 /min [facility] Work Phone: [facility] 04-21-2021 08:17-0400 Respiratory rate 18 /min [facility] Work Phone: [facility] 04-21-2021 08:17-0400 SaO2% (BldA) [Mass fraction] 96 % [facility] Work Phone: [facility] 04-21-2021 08:17-0400 Systolic blood pressure 140 mm[Hg] [facility] Work Phone: [facility] 04-18-2021 00:00-0400 Body height 160 cm [facility] Work Phone: [facility] 04-18-2021 00:00-0400 Body mass index (BMI) [Ratio] 20.15 kg/m2 Generic [facility] Work Phone: [facility] 04-18-2021 00:00-0400 Body weight 51.6 kg Generic [facility] Work Phone: [facility] Encounters Encounter Date Encounter Type Care Provider Facility Start: 05-09-2025 End: 05-09-2025 ambulatory [facility] Start: 05-07-2025 End: 05-07-2025 ambulatory [facility] Start: 05-06-2025 End: 05-06-[address] Alma Lakhani MD -[facility] Work Phone: Start: 05-06-2025 End: 05-06-[address] Armando Orozco MD Work Phone: -[facility] Start: 04-30-2025 End: 04-30-2025 ambulatory [facility] Start: 04-29-2025 End: 04-29-[address] Alma Lakhani MD -[facility] Work Phone: Start: 04-29-2025 End: 04-29-[address] Armando Orozco MD Work Phone: -[facility] Start: 04-24-2025 Non-patient / Non-visit Nohelia Angel NP-C -[facility] Work Phone: Start: 04-24-2025 ambulatory Nohelia Angel NP Facili ty:[facility] Start: 04-22-2025 End: 04-22-[address] Alma Lakhani MD -[facility] Work Phone: Start: 04-22-2025 End: 04-22-[address] Armando Orozco MD Work Phone: -[facility] Start: 04-22-2025 Non-patient / Non-visit Dr. Frankie Quispe MD -[facility] Start: 04-22-2025 End: 04-22-[address] Armando Oorzco MD Work Phone: -[facility] Start: 04-22-2025 End: 04-22-[address] Frankie Quispe MD -[facility] Work Phone: Start: 04-22-2025 End: 04-22-2025 ambulatory Frankie Quispe Facility:[facility] Start: 04-15-2025 End: 04-15-[address] Alma Lakhani MD -[facility] Work Phone: Start: 04-15-2025 End: 04-15-[address] Armando Orozco MD Work Phone: -[facility] Start: 04-11-2025 End: 04-11-[address] Alma Lakhani MD -[facility] Work Phone: Start: 04-11-2025 End: 04-11-[address] Armando Orozco MD Work Phone: -[facility] Start: 03-11-2025 End: 03-11-[address] Frankie Quispe MD -[facility] Work Phone: Start: 03-11-2025 End: 03-11-[address] Armando Orozco MD Work Phone: [facility] Start: 03-11-2025 Non-patient / Non-visit Dr. Alma Lakhani MD -[facility] Work Phone: Start: 02-17-2025 End: 02-17-[address] Frankie Quispe MD -[facility] Start: 02-17-2025 End: 02-17-[address] Armando Orozco MD Work Phone: [facility] Work Phone: Start: 02-10-2025 End: 02-11-2025 Refill Maya Katz PA-C Work Phone: Neurology Comment on above: Refill Request Start: 02-07-2025 End: 02-07-2025 Patient encounter procedure Minoo SMITH -[facility] Work Phone: Start: 02-07-2025 End: 02-07-[address] Armando Orozco MD Work Phone: [facility] Work Phone: Start: 01-30-2025 End: 01-30-2025 Emergency department patient visit Dr. Harris James DO -Emergency Department Work Phone: Start: 01-30-2025 End: 01-30-2025 ambulatory ARMANDO OROZCO Facility:[facility] Start: 12-24-2024 End: 12-24-2024 ambulatory KUSHAL WELDON Facility:[facility] Start: 12-24-2024 End: 12-24-2024 Office outpatient visit 25 minutes Kushal Weldon PIT CLERK.STEAM PRESSER Work Phone: [facility] [place] Comment on above: Chronic pain of both knees (Primary Dx); Calcium pyrophosphate arthropathy; Fibromyalgia; Essential hypertension Start: 12-18-2024 End: 12-18-[address] Armando Orozco MD Work Phone: [facility] Work Phone: Start: 12-18-2024 End: 12-18-[address] Jaguar Cannon DPM -Cardiovascular Services Work Phone: Start: 12-18-2024 End: 12-18-2024 ambulatory Jaguar Cannon Facility:[facility] Start: 12-10-2024 End: 12-10-2024 ambulatory ARMANDO OROZCO Facility:[facility] Start: 12-10-2024 End: 12-10-2024 Office outpatient visit 25 minutes Armando Orozco MD Work Phone: [facility] [place] Comment on above: Essential hypertensi on (Primary Dx); 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; History of stroke; Hypothyroidism, acquired; Sleep disorder; Myalgias; Dementia without behavioral disturbance, psychotic disturbance, mood disturbance, or anxiety, unspecified dementia severity, unspecified dementia type (HCC); Hyperlipidemia, unspecified hyperlipidemia type Start: 11-18-2024 End: 11-18-2024 ambulatory [facility] Start: 11-18-2024 End: 11-18-2024 Patient encounter procedure Emg 1 Neur [facility] (Max Weight: 850) Neurology Start: 11-17-2024 End: 11-18-2024 Refill Vega Granger MD Work Phone: Neurology Comment on above: Refill Request Start: 11-12-2024 End: 01-12-2025 Follow-up encounter Portia Call APRN.CNP Work Phone: Neurology Start: 11-05-2024 End: 11-05-2024 Patient encounter procedure Maya Katz PA-C Work Phone: Neurology Comment on above: Neuropathy (Primary Dx); Dementia without behavioral disturbance, psychotic disturbance, mood disturbance, or anxiety, unspecified dementia severity, unspecified dementia type (HCC); Unsteadiness; Frequent falls; Lacunar infarction (HCC); Right leg weakness Start: 11-05-2024 End: 11-05-2024 ambulatory [facility] Facility:[facility] Start: 10-02-2024 End: 10-03-2024 ambulatory Maya Katz PA-C Work Phone: Neurology Comment on above: MRI results 11/14/19 24 lumber spine & MRI cervical spine Start: 09-30-2024 End: 09-30-2024 ambulatory EMELIA LYNN Facility:[facility] Start: 09-25-2024 End: 09-25-2024 Telephone encounter Emelia Lynn APRN.CNP Work Phone: [facility] [place] Comment on above: Results (Foot Xray ) Start: 09-25-2024 End: 09-25-2024 Patient encounter procedure [facility] Work Phone: Start: 09-25-2024 End: 09-25-2024 ambulatory Qing SMITH Facility:[facility] Start: 09-23-2024 End: 09-23-2024 ambulatory Emelia Lynn APRN.STEAM PRESSER Work Phone: [facility] [place] Start: 09-23-2024 End: 09-23-2024 Patient encounter procedure Emelia Lynn APRN.STEAM PRESSER Work Phone: [facility] [place] Comment on above: Please send referral to: [facility] [place], [facility] [address], [place] Start: 09-23-2024 End: 09-23-2024 Telephone encounter Armando Orozco MD Work Phone: [facility] [place] Comment on above: requesting lab order s Start: 09-19-2024 End: 09-19-2024 Subsequent hospital visit by physician [facility] [place] Work Phone: Radiology Comment on above: Foot pain, right [M7 9.671] Start: 09-19-2024 End: 09-19-2024 Patient encounter procedure Emelia Lynn APRN.STEAM PRESSER Work Phone: [facility] [place] Comment on above: Foot pain, right (Pr imary Dx); Weakness of foot, right Start: 09-19-2024 End: 09-19-2024 ambulatory ARMANDO OROZCO Facility:[facility] Start: 09-18-2024 End: 09-18-2024 ambulatory Armando Orozco MD Work Phone: [facility] [place] Comment on above: Ankle Injury Start: 09-12-2024 End: 09-12-2024 ambulatory Armando Orozco MD Work Phone: [facility] [place] Comment on above: Medication Problem Start: 08-30-2024 End: 08-30-2024 Patient encounter procedure Minoo SMITH -[facility] Work Phone: Start: 08-30-2024 End: 08-30-2024 ambulatory Minoo Morillo Facility:[facility] Start: 08-15-2024 End: 08-15-2024 Refill Armando Orozco MD Work Phone: [facility] [place] Comment on above: No Rx needed Start: 08-13-2024 End: 08-16-2024 Refill Maya Katz PA-C Work Phone: Neurology Comment on above: Refill Request Start: 08-12-2024 ambulatory [facility] Facility:[facility] Start: 08-12-2024 End: 08-12-2024 ambulatory [facility] Facility:[facility] Start: 07-01-2024 End: 07-01-2024 Refill Armando Orozco MD Work Phone: [facility] [place] Comment on above: Refill Request Start: 06-10-2024 End: 06-10-2024 ambulatory ARMANDO OROZCO Facility:[facility] Start: 06-10-2024 End: 06-10-2024 Patient encounter procedure Armando Orozco MD Work Phone: [facility] [place] Comment on above: Encounter for Medica [...] minutes Verónica Wallace MD PhD Work Phone: 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), with mixed symptoms (Primary Dx) Start: 05-22-2024 End: 05-22-2024 ambulatory VERÓNICA WALLACE [facility] Start: 05-10-2024 End: 05-10-2024 Refill Vega Granger MD Work Phone: Neurology Comment on above: Refill Request Start: 04-04-2024 Telephone encounter Armando tan MD Work Phone: [facility] [place] Comment on above: FMLA letter problem Start: 03-22-2024 Telephone encounter Emelia Barbour nmof PIT CLERK.STEAM PRESSER Work Phone: [facility] [place] Comment on above: Results (Urine Cultu re ) Start: 03-21-2024 [facility].STEAM PRESSER Work Phone: [facility] [place] Comment on above: Results (Labs ) Start: 03-20-2024 End: 03-20-2024 ambulatory [facility] Facility:[facility] Start: 03-20-2024 End: 03-20-2024 Patient encounter procedure [facility] PIT CLERK.STEAM PRESSER Work Phone: [facility] [place] Comment on above: Acute cystitis with hematuria (Primary Dx); Flank pain; Ataxic gait; Hypothyroidism, acquired; Essential hypertension Start: 02-27-2024 Telephone encounter Emelia [facility] PIT CLERK.STEAM PRESSER Work Phone: [facility] [place] Comment on above: consult neurology (2 nd opinion/) Start: 02-16-2024 Telephone encounter Emelia [facility] PIT CLERK.STEAM PRESSER Work Phone: [facility] [place] Comment on above: Results (Urine Cultu re ) Start: 02-14-2024 End: 02-14-2024 [facility] Facility:[facility] Start: 02-14-2024 End: 02-14-2024 Patient encounter procedure [facility] PIT CLERK.STEAM PRESSER Work Phone: [facility] [place] Comment on above: Urinary incontinence , unspecified type (Primary Dx); Essential hypertension; Dementia without behavioral disturbance (HCC) Start: 02-12-2024 Telephone encounter Vega Granger MD Work Phone: Neurology Start: 01-29-2024 Telephone encounter Emelia Barbour nmof PIT CLERK.STEAM PRESSER Work Phone: [facility] [place] Comment on above: Patient Question Start: 01-26-2024 Telephone encounter Emelia Barbour nmof PIT CLERK.STEAM PRESSER Work Phone: [facility] [place] Start: 01-19-2024 [facility] [place] Comment on above: Fax numbers Start: 01-19-2024 E-mail encounter audra fernández caregiver [facility] Provider [facility] [place] Start: 01-18-2024 Telephone encounter Emelia finley APRN.STEAM PRESSER Work Phone: [facility] Comment on above: FMLA forms Start: 01-15-2024 Telephone encounter Armando tan MD Work Phone: [facility] Comment on above: Referral for endosco py Start: 01-12-2024 End: 01-12-2024 Patient encounter procedure Vega Granger MD Work Phone: Neurology Comment on above: Dementia without beh avioral disturbance, psychotic disturbance, mood disturbance, or anxiety, unspecified dementia severity, unspecified dementia type (HCC) (Primary Dx); Lacunar infarction (HCC); Intracranial vascular stenosis; Unsteadiness; Frequent falls; Headaches Start: 01-11-2024 End: 01-11-2024 Patient encounter procedure Emelia Lynn APRN.STEAM PRESSER Work Phone: [facility] Comment on above: Hospital discharge f ollow-up (Primary Dx); Complicated migraine; URI, acute; Anxiety with depression; Hypothyroidism, acquired; Essential hypertension Start: 01-09-2024 Patient Outreach Armando najera MD Work Phone: [facility] Comment on above: Transition Of Care Start: 01-09-2024 Refill Emelia Lynn APRN.STEAM PRESSER Work Phone: [facility] Comment on above: Refill Request Start: 01-08-2024 Refill Vega bolanos MD Work Phone: Neurology Comment on above: Refill Request Start: 01-06-2024 Dr. Armando cramer Work Phone: [facility] Work Phone: Start: 01-05-2024 Dr. Armando cramer Work Phone: [facility] Work Phone: Start: 01-04-2024 End: 01-06-2024 Evaluation and management of inpatient Dr. Armando Orozco Work Phone: [facility] Work Phone: Start: 01-04-2024 End: 01-06-2024 Dr. Armando Orozco Work Phone: [facility] Work Phone: Start: 12-30-2023 Refill Emelia Lynn APRN.STEAM PRESSER Work Phone: [facility] Comment on above: Refill Request Start: 12-22-2023 Telephone encounter Emelia finley PIT CLERK.STEAM PRESSER Work Phone: [facility] Comment on above: Results (Labs ) Start: 12-21-2023 End: 12-21-2023 Patient encounter procedure Emelia Lynn APRN.STEAM PRESSER Work Phone: [facility] Comment on above: Hospital discharge f ollow-up (Primary Dx); Ataxic gait; Chronic midline low back pain without sciatica; Myalgias; Essential hypertension Start: 12-20-2023 End: 12-20-[address] Armando Orozco Work Phone: [facility] Work Phone: Start: 12-20-2023 End: 12-20-[address] Armando Orozco Work Phone: [facility] Work Phone: Start: 12-20-2023 End: 12-20-2023 Dr. Armando Orozco Work Phone: [facility] Work Phone: Start: 12-19-2023 Telephone encounter Vega Granger MD Work Phone: Neurology Start: 11-29-2023 End: 11-29-[address] Armando Orozco Work Phone: [facility] Work Phone: Start: 11-29-2023 End: 11-29-2023 Dr. Armando Orozco Work Phone: [facility] Work Phone: Start: 11-23-2023 Telephone encounter Armando tan MD Work Phone: [facility] [place] Comment on above: Order for Aquatic Th erapy Start: 11-20-2023 End: 11-20-2023 Patient encounter procedure Armando Orozco MD Work Phone: [facility] [place] Comment on above: Balance problem (Princess hua Dx); Fibromyalgia; 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; Essential hypertension; Postsurgical hypothyroidism; Kidney stone Start: 11-16-2023 Patient Outreach Tahira Perla MA [facility] [place] Comment on above: Transition Of Care Start: 11-15-2023 Non-patient / Non-visit Dr. Armando Orozco Work Phone: [facility] Work Phone: Start: 11-15-2023 Dr. Armando cramer Work Phone: [facility] Work Phone: Start: 11-14-2023 Non-patient / Non-visit Dr. Armando Orozco Work Phone: [facility] Start: 11-14-2023 Dr. Armando cramer Work Phone: [facility] Start: 11-13-2023 Evaluation and management of inpatient Dr. Armando Orozco Work Phone: [facility] Work Phone: Start: 11-13-[address] Armando Orozco Work Phone: [facility] Work Phone: Start: 11-13-2023 Non-patient / Non-visit Dr. Armando Orozco Work Phone: [facility] Work Phone: Start: 11-13-2023 End: 11-15-2023 Evaluation and management of inpatient Dr. Armando Orozco Work Phone: [facility] Work Phone: Start: 11-13-2023 End: 11-15-2023 Dr. Armando Orozco Work Phone: [facility] Work Phone: Start: 11-02-2023 End: 11-02-2023 Subsequent hospital visit by physician [facility] (I-Stat/1.5t) Work Phone: Radiology Comment on above: Canceled (CC cx: Fin ancial) Start: 10-31-2023 End: 10-31-2023 Patient encounter procedure Carlin Huffman PA-C Work Phone: Urology Comment on above: Kidney stone (Primar y Dx); Urgency of urination Start: 10-26-2023 Telephone encounter Emelia Barbour nhof PIT CLERK.STEAM PRESSER Work Phone: [facility] [place] Comment on above: Results; Orders (US ladder and kidney) Start: 10-26-2023 End: 10-26-2023 [facility] Work Phone: Radiology Comment on above: Microscopic hematuri a [R31.29] Start: 10-25-2023 Telephone encounter Maya schaffer PA-C Work Phone: Neurology Start: 10-24-2023 E-mail encounter fro m caregiver [facility] Provider WILMER MARTIN Start: 10-24-2023 Patient encounter procedure [facility] Provider [facility] Comment on above: Instructions for you r upcoming appointment Start: 10-18-2023 Telephone encounter Maya schaffer PA-C Work Phone: Neurology Comment on above: Peer To Peer Consult ation Start: 10-16-2023 End: 10-16-[address] Armando Orozco Work Phone: [facility] Work Phone: Start: 10-16-2023 End: 10-16-2023 Dr. Armando Orozco Work Phone: [facility] Work Phone: Start: 10-12-2023 Refill Armando roman MD Work Phone: [facility] Comment on above: Refill Request Results (Urine ); Or ders Start: 09-27-2023 End: 09-27-2023 ambulatory VEGA GRANGER JR Facility:[facility] Start: 09-18-2023 End: 09-18-2023 Emergency department patient visit Dr. Armando Orozco Work Phone: [facility] Work Phone: Start: 09-18-2023 End: 09-18-2023 Dr. Armando Orozco Work Phone: [facility] Department Work Phone: Start: 09-13-2023 End: 09-13-2023 Subsequent hospital visit by physician [facility] Work Phone: Radiology Comment on above: COVID-19 [U07.1] Start: 08-23-2023 End: 08-23-[address] Armando Orozco Work Phone: [facility] Work Phone: Start: 08-23-2023 End: 08-23-[address] Armando Orozco Work Phone: [facility]-Cat Scan, [facility] Work Phone: Start: 07-26-2023 Non-patient / Non-visit Dr. Armando Orozco Work Phone: [facility] Start: 07-26-2023 End: 07-26-[address] Armando Orozco Work Phone: [facility] Work Phone: Start: 07-26-2023 End: 07-26-[address] Armando Orozco Work Phone: [facility]-Cardiovascular Services Work Phone: Start: 07-26-2023 End: 07-30-2023 ambulatory JUAN QUINTANA [facility] Start: 07-26-2023 End: 07-26-2023 Office outpatient new 45 minutes Maciej Birmingham DPM Work Phone: [facility] Comment on above: Primary osteoarthrit is of both knees (Primary Dx); Chronic pain of both knees Start: 07-05-2023 End: 07-09-2023 ambulatory ARMANDO OROZCO [facility] Start: 07-05-2023 Telephone encounter Armando tan MD Work Phone: [facility] Comment on above: Results; Patient Upd ate Start: 07-05-2023 End: 07-05-2023 Office outpatient new 30 minutes Maciej Birmingham DPM Work Phone: [facility] Comment on above: Left foot pain (Prim johanna Dx); Callus of foot; Chronic pain of both knees Start: 06-23-2023 Telephone encounter Armando tan MD Work Phone: [facility] Comment on above: Patient Question Start: 05-12-2023 End: 05-12-2023 Patient encounter procedure Sanna Rubin APRN.CNP Work Phone: [facility] Comment on above: Blister (Primary Dx) ; Foot pain, left; Fall, initial encounter Start: 05-12-2023 Telephone encounter Armando tan MD Work Phone: [facility] Comment on above: Patient Update Start: 05-05-2023 End: 05-05-2023 Subsequent hospital visit by physician [facility] Work Phone: Radiology Comment on above: Foot pain, left [M79 .672] Start: 05-05-2023 End: 05-05-2023 Office outpatient visit 15 minutes Jose Keller PIT CLERK.STEAM PRESSER Work Phone: [facility] Comment on above: Foot pain, left (Princess hua Dx); Abrasion of right knee, initial encounter Start: 04-26-2023 Telephone encounter Emeliaevan Barbour malia PIT CLERK.STEAM PRESSER Work Phone: [facility] Comment on above: Results (Xray ) Start: 04-26-2023 End: 04-26-[address] Armando Orozco Work Phone: [facility] Work Phone: Start: 04-26-2023 End: 04-26-[address] Armando Orozco Work Phone: [facility]-Outpatient Breast Imaging Work Phone: Start: 04-20-2023 ambulatory ARMANDO Aldana ity:[facility] Start: 04-20-2023 End: 04-20-2023 Subsequent hospital visit by physician Xr [facility] Comment on above: Fall, initial encoun ter [W19.XXXA] Injury of head, init ial encounter [S09.90XA] Start: 04-20-2023 End: 04-20-2023 Patient encounter procedure Emelia Lynn APRN.STEAM PRESSER Work Phone: [facility] Comment on above: Fall, initial encoun ter (Primary Dx); Concussion without loss of consciousness, initial encounter; Injury of head, initial encounter; Acute pain of right knee; Contusion of cheek, initial encounter; Memory loss Start: 04-17-2023 Telephone encounter Armando tan MD Work Phone: [facility] Comment on above: Orders (Mammogram Sc reening) Start: 04-12-2023 Telephone encounter Armando tan MD Work Phone: [facility] Comment on above: Lab Orders Start: 04-12-2023 End: 04-12-[address] Armando Orozco Work Phone: [facility]-Laboratory Work Phone: Start: 04-12-2023 End: 04-12-[address] Armando Orozco Work Phone: [facility] Work Phone: Start: 03-29-2023 End: 03-29-2023 Patient encounter procedure Emelia Lynn APRN.CNP Work Phone: [facility] Comment on above: Essential hypertensi on (Primary Dx); Balance problem; Dizziness; Decreased muscle strength; Dark urine; Generalized pain Start: 03-16-2023 Telephone encounter Armando tan MD Work Phone: [facility] Comment on above: Medication Question Start: 03-07-2023 End: 03-07-2023 Patient encounter procedure Armando Orozco MD Work Phone: [facility] Comment on above: Coronary artery dise ase involving capitan grande band coronary artery of capitan grande band heart without angina pectoris (Primary Dx); Balance problem; Essential hypertension; Hyperlipidemia, unspecified hyperlipidemia type; Postsurgical hypothyroidism; Anxiety with depression; Trouble in sleeping; Pain in lower jaw; Risk for falls; Memory loss; Ischemic colitis (HCC); Segmental colitis associated with diverticulosis (HCC); Angina pectoris (HCC) Start: 02-22-2023 End: 02-22-[address] Armando Orozco Work Phone: [facility] Work Phone: Start: 02-15-2023 PTFUADULT4, Provider : Inderjit Plaza, Status: Pen, Time: 5:00 PM Armando Orozco Work Phone: [facility] [place] Work Phone: Start: 02-13-[address] Armando Orozco Facility:[id number] Start: 02-13-2023 Patient encounter procedure Armando Orozco Work Phone: [facility] Work Phone: Start: 02-10-2023 PTFUADULT4, Provider : Inderjit Plaza, Status: Pen, Time: 5:15 PM Armando Orozco Work Phone: [facility] Work Phone: Start: 02-10-[address] Armando Orozco Facility:[id number] Start: 02-08-2023 Patient encounter procedure Armando Orozco Work Phone: [facility] Work Phone: Start: 02-08-[address] Armando Orozco Facility:[id number] Start: 01-23-2023 Patient encounter procedure Armando Orozco Work Phone: [facility] Work Phone: Start: 01-23-2023 [address] Mr. Frank Varghese ty:[id number] Start: 01-20-2023 amb[address] Mr. Frank Varghese ty:[id number] Start: 01-20-2023 Patient encounter procedure Armando Orozco Work Phone: [facility] Work Phone: Start: 01-16-2023 ambulatory Mr. Frank Varghese ty:[id number] Start: 01-13-[address] Armando Orozco Facility:[id number] Start: 01-13-2023 Telephone encounter Armando tan MD Work Phone: [facility] Comment on above: Opened In Error Results Start: 01-12-2023 Refill Kushal BROUSSARD RN.STEAM PRESSER Work Phone: [facility] Comment on above: Refill Request Start: 01-12-2023 End: 01-12-2023 Patient encounter procedure Sonia Damon APRN.STEAM PRESSER Work Phone: [facility] Comment on above: Chronic right-sided low back pain, unspecified whether sciatica present (Primary Dx); Hypothyroidism, acquired Start: 01-11-2023 ambulatory Armando roman MD Work Phone: [facility] Comment on above: Back Pain Start: 01-09-[address] Armando Orozco Facility:[id number] Start: 01-09-2023 Patient encounter procedure [facility] Work [facility]: Start: 12-09-2022 Patient encounter procedure [facility]roz[facility] Work [facility]: Start: 12-09-[address] Armando Orozco Facility:[id number] Start: 12-07-2022 End: 12-07-[address] Armando Orozco Work Phone: [facility] Work Phone: Start: 12-07-2022 End: 12-07-[address] Armando Orozco Work Phone: [facility] Start: 11-30-2022 Patient encounter procedure [facility]ando Orozco [facility] Work Phone: Start: 11-30-2022 [address] Mr. Cristian Garrison ltluis manuel Timothy Facility:[id number] Start: 10-07-2022 Refill Armando roman MD Work Phone: [facility] Comment on above: Refill Request Hair Loss Start: 10-05-2022 Patient encounter procedure Armando Orozco Work Phone: [facility] Work Phone: Start: 09-28-2022 Non-patient / Non-visit Dr. Armando Orozco Work Phone: [facility] Start: 09-28-2022 End: 09-28-[address] Armando Orozco Work Phone: [facility] Work Phone: Start: 09-28-2022 End: 09-28-[address] Armando Orozco Work Phone: [facility]Cardi[facility] Services Start: 09-26-2022 Patient encounter procedure Armando Orozco Work Phone: [facility] [address] Work Phone: Start: 09-26-[address] Armando Orozco Facility:[id number] Start: 09-14-2022 End: 09-14-[address] Armando Oorzco Work Phone: [facility] Work Phone: Start: 09-14-2022 End: 09-14-[address] Armando Orozco Work Phone: [facility] Start: 09-08-2022 Telephone encounter Armando tan MD Work Phone: [facility] Comment on above: Results Start: 09-08-2022 End: 09-08-[address] Armando Orozco Work Phone: [facility] Start: 09-07-2022 Telephone encounter Armando tan MD Work Phone: [facility] Comment on above: Orders Start: 08-10-[address] uLdmila Warren Facility:[id number] Start: 08-10-2022 Patient encounter procedure Armando Orozco Work Phone: [facility] C Work Phone: Start: 07-14-2022 Telephone encounter Rajat Walsh MD Work Phone: [facility] [place] Comment on above: Results Start: 07-13-2022 Telephone encounter Armando tan MD Work Phone: [facility] Comment on above: FMLA Paperwork Start: 07-13-2022 End: 07-13-2022 Patient encounter procedure Nik Walsh MD Work Phone: [facility] Comment on above: Postsurgical hypothy roidism (Primary Dx) Start: 07-11-2022 Office outpatient ne w 45 minutes Armando Orozco Work Phone: [facility] Work Phone: Start: 07-11-2022 Patient encounter procedure Armando Orozco Work Phone: [facility] Work Phone: Start: 07-11-[address] Ludmila Warren Facility:[id number] Start: 07-11-[address] Ludmila Warren Facility:[id number] Start: 06-22-2022 End: 06-22-[address] Armando Orozco Work Phone: [facility] Gastroenterology Start: 06-22-2022 End: 06-22-[address] Armando Orozco Work Phone: [facility] Start: 05-05-2022 End: 05-05-2022 Patient encounter procedure Emelia Lynn APRN.CNP Work Phone: [facility] Comment on above: Postsurgical hypothy roidism (Primary Dx); Anxiety with depression; Chronic insomnia; Essential hypertension; Hyperlipidemia, unspecified hyperlipidemia type Start: 05-04-2022 End: 05-04-[address] Armando Orozco Work Phone: [facility] Work Phone: Start: 05-04-2022 End: 05-04-[address] Armando Orozco Work Phone: [facility] Start: 04-27-2022 End: 04-27-[address] Armando Orozco Work Phone: [facility] Work Phone: Start: 04-27-2022 End: 04-27-[address] Armando Orozco Work Phone: [facility]Laboratory Start: 03-31-2022 Chart abstracting Armando cramer MD Work Phone: [facility] Comment on above: External Documents ( Gastro H&P) Start: 03-30-2022 End: 03-30-[address] Armando Orozco Work Phone: [facility] Gastroenterology Start: 02-05-2022 Get Medical Advice Armando boone MD Work Phone: [facility] Comment on above: refill for euthyrox 100mg Start: 02-03-2022 Telephone encounter Armando tan MD Work Phone: [facility] Comment on above: Patient Question Start: 01-28-2022 End: 01-28-[address] Armando Orozco Work Phone: [facility] Start: 01-25-2022 End: 01-25-[address] Armando Orozco Work Phone: [facility]Outpatient Breast Imaging Start: 01-11-2022 End: 01-11-[address] Armando Orozco Work Phone: [facility]-Cat Scan, [facility] Start: 01-06-2022 End: 01-06-[address] Armando Orozco Work Phone: [facility] Start: 01-03-2022 End: 01-03-[address] Aramndo Orozco Work Phone: [facility] Gastroenterology Start: 12-10-2021 End: 12-10-2021 Patient encounter procedure Armando Orozco MD Work Phone: [facility] Comment on above: Medicare annual well ness visit, subsequent (Primary Dx); Essential hypertension; 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 Start: 12-02-2021 End: 12-02-[address] Armando Orozco Work Phone: [facility] Start: 11-01-2021 End: 11-01-[address] Armando Orozco Work Phone: [facility] Start: 11-01-2021 End: 11-01-[address] Armando Orozco Work Phone: [facility] Start: 10-27-2021 End: 10-27-2021 Subsequent hospital visit by physician [facility] Work Phone: Radiology Comment on above: ov Start: 10-15-2021 End: 10-15-[address] Armando Orozco Work Phone: [facility] Gastro Virtual Start: 10-08-2021 End: 10-08-[address] [facility] Start: 09-20-2021 Non-patient / Non-visit Dr. Armando Orozco Work Phone: [facility] Start: 09-20-2021 End: 09-20-[address] Armando Orozco Work Phone: [facility]Cardi[facility] Services Start: 09-09-2021 End: 09-09-[address] Armando Orozco Work Phone: [facility] Gastroenterology Start: 08-30-2021 End: 09-03-2021 Evaluation and management of inpatient GASTROENTEROLOGY CONSULT Facility:[facility] Start: 08-30-2021 Evaluation and management of inpatient ONEAL ROMERO Facility:[facility] Start: 08-29-2021 End: 08-30-2021 Emergency department patient visit Dr. Armando Orozco Work Phone: [facility]-Emergency Department Start: 08-25-[address] Armando Orozco Work Phone: [facility] Start: 08-25-2021 End: 08-25-[address] Armando Orozco Work Phone: [facility] Start: 08-24-2021 End: 08-24-[address] Armando Orozco Work Phone: [facility] Gastroenterology Start: 08-08-2021 End: 08-18-2021 Evaluation and management of inpatient [facility] Facility:[facility] Start: 05-28-2021 End: 05-31-2021 ambulatory IZABELLA SHARMA [facility] Start: 05-27-2021 End: 05-28-2021 Emergency department patient visit RAJEEV [facility] Start: 05-20-2021 Refill Diandra Bueno RN [facility] Comment on above: Medication Refill Start: 04-28-2021 End: 04-28-2021 Office outpatient visit 15 minutes Love Ferraro CNP Work Phone: [facility] Comment on above: Coronary artery dise ase involving capitan grande band coronary artery of capitan grande band heart, unspecified whether angina present Start: 04-20-2021 End: 04-20-2021 Orders Only Diandra Bueno RN [facility] Comment on above: Coronary artery dise ase, unspecified vessel or lesion type, unspecified whether angina present, unspecified whether capitan grande band or transplanted heart (Primary Dx); Post PTCA Phase II Cardiac Sebastian ab Start: 04-18-2021 End: 04-21-2021 Evaluation and management of inpatient [facility] Start: 04-17-2021 End: 04-21-2021 Evaluation and management of inpatient [facility] Work Phone: [facility] Cardiovascular Step Down Start: 04-15-2021 End: 08-05-2021 Subsequent hospital visit by physician [facility] Work Phone: Radiology Comment on above: Bilateral hand pain [M79.641, M79.642] Start: 04-13-2021 End: 04-13-2021 Subsequent hospital visit by physician [facility] Work Phone: Radiology Comment on above: Left hip pain [M25.5 52] Start: 05-16-2017 End: 05-17-2017 Ambulatory Armando Orozco Facility:[facility] Procedures Date Procedure Procedure Detail Performing [...] et rgnt auto w/o microscopy Emelia Lynn PIT CLERK.STEAM PRESSER Work Phone: Start: 03-20-2024 Thyrotropin [Units/v olume] in Serum or Plasma Verónica Wallace MD PhD Work Phone: Start: 02-14-2024 Urnls dip stick/tabl et reagent auto microscopy Emelia Lynn PIT CLERK.STEAM PRESSER Work Phone: Start: 02-14-2024 Urnls dip stick/tabl et rgnt auto w/o microscopy Emelia Lynn PIT CLERK.STEAM PRESSER Work Phone: Start: 01-06-2024 CT of head [...] r eal time w/image complete Emelia Lynn APRN.STEAM PRESSER Work Phone: Start: 09-18-2023 X-ray of chest posteroanterior view Dr. Armando Orozco Work Phone: Start: 09-13-2023 Radiologic exam ches t 2 views Emelia Lynn APRN.STEAM PRESSER Work Phone: Start: 08-23-2023 CT angiography of he ad and neck Dr. Armando Orozco Work Phone: Start: 07-26-2023 Arthrocentesis aspir &/inj major jt/bursa w/o us Juan Kilpatrick STEAM PRESSER Work Phone: Start: 07-05-2023 Radex foot complete minimum 3 views Maciej Birmingham DPM Work Phone: Start: 05-05-2023 Radex foot complete minimum 3 views Jose Keller PIT CLERK.STEAM PRESSER Work Phone: Start: 04-26-2023 Screening mammography Martin Orozco Work Phone: Start: 04-20-2023 Ct head/brain w/o co ntrast material Emelia Lynn PIT CLERK.STEAM PRESSER Work Phone: Start: 03-29-2023 Urnls dip stick/tabl et rgnt auto w/o microscopy Emelia Lynn PIT CLERK.STEAM PRESSER Work Phone: Start: 09-28-2022 Cardiovascular stres s [...] exam knee complete 4/more views Emelia Lynn PIT CLERK.STEAM PRESSER Work Phone: Start: 09-20-2021 Nuclear Stress Test - Chemical Dr. Armando Orozco Work Phone: Start: 08-30-2021 Computed tomography angiography of abdominal and/or pelvic blood vessel Dr. Armando Orozco Work Phone: Start: 08-30-2021 Antibody screen ONEAL ROMERO Comment on above: Result Comment: @ 07:56 by EKN: Performed By: #### X M #### [facility] (DEFAULT) [address] [place] [address] Start: 08-29-2021 Measurement of occul t blood in stool specimen using immunoassay Dr. Armando Orozco Work Phone: Start: 08-08-2021 Antibody screen ONEAL ROMERO Comment on above: Performed By: #### X M #### [facility] (DEFAULT) [address] [place] [address] Start: 05-31-2021 Adult depression scr eening assessment Maciej Birmingham Jr., DPM Work Phone: Start: 04-20-2021 Potassium serum plas ma/whole blood Alivia Castellanos MD Work Phone: Start: 04-20-2021 Echo tthrc r-t 2d w/ wom-mode compl spec&colr d Marietta Beltran STEAM PRESSER Work Phone: Start: 04-20-2021 Potassium serum plas ma/whole blood Shantal Salazar STEAM PRESSER Work Phone: Start: 04-20-2021 Duplex scan extracra [...] 04-15-2021 Radex hand minimum 3 views Katlin Vetovitz PA-C Work Phone: Start: 04-13-2021 Radex hip unilateral with pelvis 2-3 views Meagan Podloglorena RAY Work Phone: Start: 01-14-2021 Mammography Diandra thacker RN Plan of Treatment Date Care Activity Detail Author Start: 12-04-2029 DTaP/Tdap/Td Vaccines (4 - Td or Tdap) DTaP/Tdap/Td Vaccines (4 - Td or Tdap) [facility] Start: 12-04-2029 Tetanus vaccination Tetanus: Every 10yrs [facility] Start: 12-04-2029 Urine microalbumin profile [facility] Start: 11-05-2027 Diabetes Screening Diabetes Screening [facility] Start: 03-20-2027 Diabetes Screening Diabetes Screening [facility] Start: 12-20-2026 Diabetes Screening Diabetes Screening [facility] Start: 12-24-2025 Annual PCP Team Chronic Disease Visit Annual PCP Team Chronic Disease Visit [facility] Start: 12-10-2025 Annual PCP Team Chronic Disease Visit Annual PCP Team Chronic Disease Visit [facility] Start: 09-19-2025 Annual PCP Team Chronic Disease Visit Annual PCP Team Chronic Disease Visit [facility] Start: 06-12-2025 End: 06-12-2025 Patient encounter procedure 06/12/2025 1:20 PM EDT Office Visit [facility] [address] [facility] [place] [id number] Armando Orozco MD [address] [place] [id number] Medicare Wellness/6 mo f/u [facility] [place] Comment on above: Medicare Wellness/6 mo f/u Start: 06-10-2025 Annual PCP Team Chronic Disease Visit Annual PCP Team Chronic Disease Visit [facility] Start: 06-10-2025 Anxiety Screening Anxiety Screening [facility] Start: 06-10-2025 BP Controlled (<130/80) BP Controlled (<130/80) [facility] Start: 06-10-2025 Covid-19 Vaccine ( season) Covid-19 Vaccine ( season) [facility] Comment on above: Postponed from 05/12/2024 (Declined at t his time) Start: 06-10-2025 RSV Vaccine (1 - 1-dose 75+ series) RSV Vaccine (1 - 1-dose 75+ series) [facility] Comment on above: Postponed from 2019 (Declined at t his time) Start: 05-14-2025 End: 05-14-2025 Patient encounter procedure 05/14/2025 4:30 PM EDT Office Visit Neurology [address] [place], [place] [id number] Maya Katz PA-C [address] [place], [place] [id number] 3 month follow for meds Neurology Comment on above: 3 month follow for meds Start: 05-12-2025 Influenza vaccination Influenza Vaccine (Season Ended) [facility] Start: 03-20-2025 Annual PCP Team Chronic Disease Visit Annual PCP Team Chronic Disease Visit [facility] Start: 03-20-2025 Thyroid stimulating hormone measurement TSH Level [facility] Start: 03-10-2025 Influenza vaccination Influenza Vaccine (#1) Ryan Kari hernández Comment on above: Postponed from 05/12/2024 (Declined at t his time) Start: 02-17-2025 X-ray of lumbosacral spine L/S Spine Min 4 Views [facility] Start: 02-17-2025 XR Spine Lumbar and Sacrum GE 4 Views [facility] Start: 02-17-2025 XR Thoracic spine Views [facility] Start: 02-17-2025 Xray thoracic spine Thoracic Spine 2 Views [facility] Start: 02-13-2025 Annual PCP Team Chronic Disease Visit Annual PCP Team Chronic Disease Visit [facility] Start: 01-30-2025 [facility] Start: 01-21-2025 End: 01-21-2025 Patient encounter procedure 01/21/2025 1:20 PM EDT Office Visit Family [facility] [address] [place] [address] Kushal Weldon APRN.STEAM PRESSER [address] [place], [place] [id number] 1 month follow up BP [facility] [place] Comment on above: 1 month follow up BP Start: 01-10-2025 Annual PCP Team Chronic Disease Visit Annual PCP Team Chronic Disease Visit [facility] Start: 12-20-2024 Annual PCP Team Chronic Disease Visit Annual PCP Team Chronic Disease Visit [facility] [facility] Start: 12-10-2024 End: 12-10-2024 Patient encounter procedure 12/10/2024 1:20 PM EDT Office Visit [facility] [address] [place] [address] Armando Orozco MD [address] [place] [address] 6 mo f/u Family [facility] Comment on above: 6 mo f/u Start: 11-19-2024 Annual PCP Team Chronic Disease Visit Annual PCP Team Chronic Disease Visit [facility] Start: 11-18-2024 End: 11-18-2024 ambulatory 11/18/2024 10:00 AM EDT Procedure Neurology [address] [place] [address] Gen Lower Extremity(STANDARD) Neurology Comment on above: Gen Lower Extremity(STANDARD) Start: 11-05-2024 End: 02-04-2025 C reactive protein [Mass/volume] in Serum or Plasma [facility] Comment on above: Expected: 11/05/2024, Expires: Start: 11-05-2024 End: 02-04-2025 Cobalamin (Vitamin B12) [Mass/volume] in Serum or Plasma [facility] Comment on above: Expected: 11/05/2024, Expires: Start: 11-05-2024 End: 02-04-2025 Comprehensive metabolic 2000 panel - Serum or Plasma [facility] Comment on above: Expected: 11/05/2024, Expires: Start: 11-05-2024 End: 02-04-2025 Erythrocyte sedimentation rate [facility] Comment on above: Expected: 11/05/2024, Expires: Start: 11-05-2024 End: 02-04-2025 Hemoglobin A1c in Blood [facility] Comment on above: Expected: 11/05/2024, Expires: Start: 11-05-2024 End: 02-04-2025 Methylmalonate [Moles/volume] in Serum or Plasma [facility] Comment on above: Expected: 11/05/2024, Expires: Start: 11-05-2024 End: 02-04-2025 PROT ELECT SERUM WITH JUANA AND INTERP [facility] Comment on above: Expected: 11/05/2024, Expires: Start: 11-05-2024 End: 02-04-2025 Pyridoxine [Mass/volume] in Serum or Plasma [facility] Comment on above: Expected: 11/05/2024, Expires: Start: 11-05-2024 End: 02-04-2025 Thyrotropin [Units/volume] in Serum or Plasma [facility] Comment on above: Expected: 11/05/2024, Expires: Start: 11-05-2024 End: 02-04-2025 VITAMIN B1 (THIAMINE), WHOLE BLOOD [facility] Comment on above: Expected: 11/05/2024, Expires: Start: 11-05-2024 End: 11-05-2024 Patient encounter procedure 11/05/2024 11:30 AM EST Office Visit Neurology [address] [place], [place] [id number] Maya Katz PA-C [address] [place], [place] [id number] Dementia follow up Neurology Comment on above: Dementia follow up Start: 2024 Annual PCP Team Chronic Disease Visit Annual PCP Team Chronic Disease Visit [facility] Start: 09-23-2024 End: 12-23-2024 Thyrotropin [Units/volume] in Serum or Plasma THYROID STIMULATING HORMONE Lab Routine Hypothyroidism, acquired Expected: 09/23/2024, Expires: 12/23/2024 [facility] Work Phone: Comment on above: Expected: 09/23/2024, Expires: Start: 09-19-2024 End: 09-19-2024 Patient encounter procedure 09/19/2024 2:20 PM EST Office Visit [facility] [address] [place], [place] [id number] Emelia Lynn, PIT CLERK.STEAM PRESSER [address] [facility] [address] Right foot swelling-injury See triage 09/18/2024 Family Deondre Velásquez Comment on above: Right foot swelling-injury See triage 09/18/2024 Start: 09-11-2024 Advance Directive Discussion Advance Directive Discussion [facility] Start: 09-03-2024 Diabetes Screening Diabetes Screening [facility] Start: 08-10-2024 DIABETES SCREEN DIABETES SCREEN [facility] Start: 08-10-2024 Diabetes Screening Diabetes Screening [facility] Start: 05-12-2024 ANNUAL PCP TEAM CHRONIC DISEASE VISIT ANNUAL PCP TEAM CHRONIC DISEASE VISIT [facility] Start: 05-12-2024 COVID-19 Vaccine () COVID-19 Vaccine () [facility] Start: 05-12-2024 Covid-19 Vaccine ( season) Covid-19 Vaccine () [facility] Start: 05-12-2024 Influenza vaccination [facility] Start: 04-20-2024 ANNUAL PCP TEAM CHRONIC DISEASE VISIT ANNUAL PCP TEAM CHRONIC DISEASE VISIT [facility] Start: 04-20-2024 BP CONTROLLED (<130/80) BP CONTROLLED (<130/80) [facility] Start: 04-19-2024 End: 04-19-2024 Patient encounter procedure 04/19/2024 1:00 PM EDT Appointment Radiology [address] [place] [address] Procedure: MRI LUMBAR SPINE WO IVCON Radiology Comment on above: Procedure: MRI LUMBAR SPINE WO IVCON Start: 03-29-2024 ANNUAL PCP TEAM CHRONIC DISEASE VISIT ANNUAL PCP TEAM CHRONIC DISEASE VISIT [facility] Start: 03-29-2024 BP CONTROLLED (<130/80) BP CONTROLLED (<130/80) [facility] Start: 03-20-2024 End: 06-19-2024 Comprehensive metabolic 2000 panel - Serum or Plasma [facility] Comment on above: Expected: 03/20/2024, Expires: Start: 03-20-2024 End: 06-19-2024 Thyrotropin [Units/volume] in Serum or Plasma [facility] Comment on above: Expected: 03/20/2024, Expires: Start: 03-20-2024 End: 06-19-2024 Thyroxine (T4) free [Mass/volume] in Serum or Plasma [facility] Comment on above: Expected: 03/20/2024, Expires: Start: 03-20-2024 End: 03-20-2024 Patient encounter procedure 03/20/2024 1:30 PM EDT Office Visit Neurology [address] [place] [address] Maya Katz PA-C [address] [place], [place] [phone] Two month follow up Dementia Neurology Comment on above: Two month follow up Dementia Start: 03-07-2024 ANNUAL PCP TEAM CHRONIC DISEASE VISIT ANNUAL PCP TEAM CHRONIC DISEASE VISIT [facility] Start: 03-07-2024 BP CONTROLLED (<130/80) BP CONTROLLED (<130/80) [facility] Start: 02-19-2024 End: 02-19-2024 Patient encounter procedure 02/19/2024 5:00 PM EDT Office Visit [facility] [place] [address] [place] [address] Armando Orozco MD [address] [place], [place] [phone] follow up [facility] [place] Comment on above: follow up Start: 02-16-2024 Shingrix Vaccine (3 of 3) Shingrix Vaccine (3 of 3) [facility] Start: 02-14-2024 End: 02-14-2024 ambulatory 02/14/2024 1:00 PM EDT [facility] [address] [facility] [place] [id number] Emelia Lynn, PIT CLERK.STEAM PRESSER [address] [facility] [address] 1 month med check [facility] Comment on above: 1 month med check Start: 01-13-2024 ANNUAL PCP TEAM CHRONIC DISEASE VISIT ANNUAL PCP TEAM CHRONIC DISEASE VISIT [facility] Start: 01-13-2024 BP CONTROLLED (<130/80) BP CONTROLLED (<130/80) [facility] Start: 01-12-2024 End: 01-12-2024 Patient encounter procedure 01/12/2024 3:40 PM EDT Office Visit Neurology [address] [facility] [address] Vega Granger Jr., MD [address] [address] 3 month f/u - 60 min as requestd by provider Neurology Comment on above: 3 month f/u - 60 min as requestd by prov ider Start: 01-11-2024 End: 01-11-2024 Patient encounter procedure 01/11/2024 8:20 AM EDT Office Visit [facility] [place] [address] [facility] [address] Emelia Lynn, PIT CLERK.STEAM PRESSER [address] [facility] [place] [id number] [facility] D[facility] 01/05 Migraine possible stroke [facility] Comment on above: [facility] D[facility] 01/05 Migraine possible stroke Start: 01-06-2024 Patient discharge [facility] Start: 01-06-2024 Telemedicine consultation with patient [facility] Start: 01-04-2024 Following clinical pathway protocol [facility] Start: 01-04-2024 Assessment of risk of venous thromboembolism [facility] Start: 01-04-2024 Bedrest [facility] Start: 01-04-2024 Consultation [facility] Start: 01-04-2024 Continuous pulse oximetry [facility] Start: 01-04-2024 Insertion of catheter into peripheral vein [facility] Start: 01-04-2024 Measuring intake and output [facility] Start: 01-04-2024 Patient referral to dietitian [facility] Start: 01-04-2024 Providing care according to standard [facility] Start: 01-04-2024 Referral to occupational therapist [facility] Start: 01-04-2024 Referral to service [facility] Start: 01-04-2024 Speech therapy assessment [facility] Start: 01-04-2024 Vital signs measurements [facility] Start: 01-04-2024 [facility] Start: 01-04-2024 Verification routine [facility] Start: 01-04-2024 Admission procedure [facility] Start: 01-04-2024 Hospital admission, emergency, from emergency room, medical nature [facility] Start: 01-04-2024 Bleeding precautions [facility] Start: 01-04-2024 Consultation [facility] Start: 01-04-2024 Oxygen therapy [facility] Start: 01-04-2024 [facility] Start: 12-21-2023 End: 03-21-2024 Nuclear Ab [Presence] in Serum by Immunoassay [facility] Work Phone: Comment on above: Expected: 12/21/2023, Expires: Start: 11-15-2023 Patient discharge [facility] Start: 11-14-2023 Thiamine measurement [facility] Start: 11-14-2023 Serum immunofixation [facility] Start: 11-14-2023 [facility] Start: 11-14-2023 [facility] Start: 11-13-2023 Following clinical pathway protocol [facility] Start: 11-13-2023 Assessment of risk of venous thromboembolism [facility] Start: 11-13-2023 Cardiac monitoring [facility] Start: 11-13-2023 Catheterization of vein [facility] Start: 11-13-2023 Elevation of head of bed [facility] Start: 11-13-2023 Exercises [facility] Start: 11-13-2023 Implementation of planned interventions [facility] Start: 11-13-2023 Insertion of catheter into peripheral vein [facility] Start: 11-13-2023 Measuring intake and output [facility] Start: 11-13-2023 Notification of physician [facility] Start: 11-13-2023 Oxygen therapy [facility] Start: 11-13-2023 Providing care according to standard [facility] Start: 11-13-2023 Provision of activity privileges [facility] Start: 11-13-2023 Referral to occupational therapist [facility] Start: 11-13-2023 Referral to service [facility] Start: 11-13-2023 Telemedicine consultation with patient [facility] Start: 11-13-2023 Tobacco use cessation education [facility] Start: 11-13-2023 [facility] Start: 11-13-2023 Vital signs measurements [facility] Start: 11-13-2023 MRI of cervical spine with contrast Spine Cervical W/WO Contrast [facility] Start: 11-13-2023 MRI of brain with contrast Brain W/WO Contrast [facility] Start: 11-13-2023 Hospital admission, emergency, from emergency room, medical nature [facility] Start: 11-13-2023 Admission procedure [facility] Start: 11-13-2023 Oxygen therapy [facility] Start: 11-13-2023 [facility] Start: 11-13-2023 Patient referral to dietitian [facility] Start: 2023 End: 2023 Patient encounter procedure 2023 10:00 AM EST Office Visit [facility] [address] [place] [address] Maciej Birmingham Jr., DPM [address] [place] [address] [facility] Start: 09-18-2023 [facility] Start: 09-18-2023 [facility] Start: 09-11-2023 Advance Directive Discussion Advance Directive Discussion [facility] Start: 07-13-2023 ANNUAL PCP TEAM CHRONIC DISEASE VISIT ANNUAL PCP TEAM CHRONIC DISEASE VISIT [facility] Start: 07-13-2023 BP CONTROLLED (<130/80) BP CONTROLLED (<130/80) [facility] Start: 07-13-2023 COVID-19 VACCINE (3 - Booster for Lilly series) COVID-19 VACCINE (3 - Booster for Lilly series) [facility] Comment on above: Postponed from 05/27/2021 (Declined at t his time) Start: 06-23-2023 End: 08-23-2023 Thyrotropin [Units/volume] in Serum or Plasma TSH BLD Lab Routine Postsurgical hypothyroidism Expected: 06/23/2023, Expires: 08/23/2023 [facility] Work Phone: Comment on above: Expected: 06/23/2023, Expires: 3 Start: 06-23-2023 End: 08-23-2023 Thyroxine (T4) free [Mass/volume] in Serum or Plasma T4 FREE/FREE THYROX Lab Routine Postsurgical hypothyroidism Expected: 06/23/2023, Expires: 08/23/2023 [facility] Work Phone: Comment on above: Expected: 06/23/2023, Expires: 3 Start: 05-12-2023 Covid-19 Vaccine ( season) Covid-19 Vaccine () [facility] Start: 05-12-2023 Influenza vaccination [facility] Start: 05-05-2023 ANNUAL PCP TEAM CHRONIC DISEASE VISIT ANNUAL PCP TEAM CHRONIC DISEASE VISIT [facility] Start: 05-05-2023 BP CONTROLLED (<130/80) BP CONTROLLED (<130/80) [facility] Start: 04-13-2023 End: 06-13-2023 Thyrotropin [Units/volume] in Serum or Plasma TSH BLD Lab Routine Postsurgical hypothyroidism Expected: 04/13/2023, Expires: 06/13/2023 [facility] Work Phone: Comment on above: Expected: 04/13/2023, Expires: Start: 03-10-2023 Influenza vaccination INFLUENZA (#1) [facility] Comment on above: Postponed from 05/12/2022 (Declined at t his time) Start: 02-22-2023 Patient referral [facility] Work Phone: Start: 02-15-2023 [email or web address], Provider: Inderjit Plaza, Status: Pen, Time: 5:00 PM PTFUADULT4, Provider: Inderjit Plaza, Status: Pen, Time: 5:00 PM [facility] Work Phone: Start: 02-13-2023 PTRECHADUL, Provider: Inderjit Plaza, Status: Pen, Time: 5:30 PM PTRECHADUL, Provider: Inderjit Plaza, Status: Pen, Time: 5:30 PM [facility] Work Phone: Start: 02-13-2023 PTRECHADUL, Provider: Inderjit Plaza, Status: Pen, Time: 4:45 PM PTRECHADUL, Provider: Inderjit Plaza, Status: Pen, Time: 4:45 PM [facility] Work Phone: Start: 02-10-2023 PTFUADULT4, Provider: Inderjit Plaza, Status: Pen, Time: 5:15 PM PTFUADULT4, Provider: Inderjit Plaza, Status: Pen, Time: 5:15 PM [facility] Work Phone: Start: 02-08-2023 PTFUADULT4, Provider: Inderjit Plaza, Status: Pen, Time: 5:00 PM PTFUADULT4, Provider: Inderjit Plaza, Status: Pen, Time: 5:00 PM [facility] Work Phone: Start: 02-07-2023 PTFUADULT4, Provider: Minoo Stewart, Status: Pen, Time: 5:00 PM PTFUADULT4, Provider: Minoo Stewart, Status: Pen, Time: 5:00 PM [facility]: Start: 01-31-2023 BOTOX, Provider: Ludmila Warren, Status: Pen, Time: 1:45 PM BOTOX, Provider: Ludmila Warren, Status: Pen, Time: 1:45 PM [facility] Work Phone: Start: 01-23-2023 PTFUADULT4, Provider: Stephie Mancini, Status: Pen, Time: 5:00 PM PTFUADULT4, Provider: Stephie Mancini, Status: Pen, Time: 5:00 PM [facility] Work Phone: Start: 01-20-2023 PTFUADULT4, Provider: Inderjit Plaza, Status: Pen, Time: 5:15 PM PTFUADULT4, Provider: Inderjit Plaza, Status: Pen, Time: 5:15 PM [facility] Work [facility]: Start: 01-16-2023 PTFUADULT4, Provider: Stephie Mancini, Status: Pen, Time: 5:00 PM PTFUADULT4, Provider: Stephie Mancini, Status: Pen, Time: 5:00 PM [facility] Work [facility]: Start: 01-13-2023 PTFUADULT4, Provider: Inderjit Plaza, Status: Pen, Time: 5:00 PM PTFUADULT4, Provider: Inderjit Plaza, Status: Pen, Time: 5:00 PM [facility] Work Phone: Start: 01-12-2023 End: 03-14-2023 Thyrotropin [Units/volume] in Serum or Plasma [facility] Work Phone: Comment on above: Expected: 01/12/2023, Expires: Start: 01-12-2023 End: 03-14-2023 Thyroxine (T4) free [Mass/volume] in Serum or Plasma [facility] Work Phone: Comment on above: Expected: 01/12/2023, Expires: Start: 01-07-2023 End: 03-09-2023 Thyrotropin [Units/volume] in Serum or Plasma TSH BLD Lab Routine Postsurgical hypothyroidism Expected: 01/07/2023 (Approximate), Expires: 03/09/2023 [facility] Work Phone: Comment on above: Expected: 01/07/2023 (Approximate), Expi res: 03/09/2023 Start: 01-07-2023 End: 03-09-2023 Thyroxine (T4) free [Mass/volume] in Serum or Plasma T4 FREE/FREE THYROX Lab Routine Postsurgical hypothyroidism Expected: 01/07/2023 (Approximate), Expires: 03/09/2023 [facility] Work Phone: Comment on above: Expected: 01/07/2023 (Approximate), Expi res: 03/09/2023 Start: 12-10-2022 ANNUAL PCP TEAM CHRONIC DISEASE VISIT ANNUAL PCP TEAM CHRONIC DISEASE VISIT [facility] Start: 12-10-2022 BP CONTROLLED (<130/80) BP CONTROLLED (<130/80) [facility] Start: 12-02-2022 Hepatitis B surface antibody level LDL CHOLESTEROL [facility] Start: 10-05-2022 VIRFUVKIMBERLYE, Provider: Perlita Maynard, Status: Pen, Time: 9:45 AM VIRFUVJOSSY, Provider: Perlita Maynard, Status: Pen, Time: 9:45 AM [facility] Work Phone: Start: 09-26-2022 FUV, Provider: Ludmila Warren, Status: Pen, Time: 2:00 PM FUV, Provider: Ludmila Warren, Status: Pen, Time: 2:00 PM [facility] Work Phone: Start: 09-11-2022 ADVANCE DIRECTIVE DISCUSSION ADVANCE DIRECTIVE DISCUSSION [facility] Start: 08-10-2022 MIGUE, Provider: Perlita Maynard, Status: Pen, Time: 11:15 AM MIGUE, Provider: Perlita Maynard, Status: Shankar, Time: 11:15 AM RY-Ljwmhckqnhpxpw-[facility] Work Phone: Start: 07-13-2022 End: 09-12-2022 Thyrotropin [Units/volume] in Serum or Plasma [facility] Work Phone: Comment on above: Expected: 07/13/2022, Expires: 3 Start: 07-13-2022 End: 09-12-2022 Thyroxine (T4) free [Mass/volume] in Serum or Plasma [facility] Work Phone: Comment on above: Expected: 07/13/2022, Expires: 3 Start: 06-05-2022 End: 08-05-2022 Thyrotropin [Units/volume] in Serum or Plasma TSH BLD Lab Routine Postsurgical hypothyroidism Expected: 06/05/2022, Expires: 08/05/2022 [facility] Work Phone: Comment on above: Expected: 06/05/2022, Expires: 2 Start: 06-05-2022 End: 08-05-2022 Thyroxine (T4) free [Mass/volume] in Serum or Plasma T4 FREE/FREE THYROX Lab Routine Postsurgical hypothyroidism Expected: 06/05/2022, Expires: 08/05/2022 [facility] Work Phone: Comment on above: Expected: 06/05/2022, Expires: 2 Start: 05-31-2022 Depression screening using PHQ-9 (Patient Health Questionnaire 9) score Depression Screening (PHQ-2/9) [facility] Start: 05-12-2022 Influenza vaccination [facility] Start: 04-27-2022 Procedure [facility] Work Phone: Start: 04-27-2022 [facility] Work Phone: Start: 03-30-2022 Patient referral [facility] Work Phone: Start: 01-14-2022 Screening for malignant neoplasm of breast Mammogram [facility] Start: 01-06-2022 Patient referral [facility] Work Phone: Start: 08-02-2021 COVID-19 VACCINE (3 - Booster for Lilly series) COVID-19 VACCINE (3 - Booster for Lilly series) [facility] Start: 06-11-2021 End: 06-11-2021 Patient encounter procedure [facility] Start: 05-12-2021 Influenza vaccination Sequential Influenza Vaccine (#1) [facility] Start: 04-28-2021 End: 04-28-2021 Patient encounter procedure 04/28/2021 Office Visit Cardiology Love Ferraro, STEAM PRESSER [address] [place] [address] [phone] [facility] Start: 05-01-2020 BP CONTROLLED (<130/80) BP CONTROLLED (<130/80) [facility] Start: 01-04-2013 Administration of herpes zoster vaccine Zoster Vaccines (2 of 3) [facility] Start: 01-04-2013 SHINGRIX VACCINE (2 of 3) SHINGRIX VACCINE (2 of 3) [facility] Start: 12-11-2012 PNEUMOCOCCAL: 65+ (1 - PCV) PNEUMOCOCCAL: 65+ (1 - PCV) [facility] Start: 2009 Fall risk assessment Falls Risk Assessment [facility] Start: 2009 Pneumococcal Vaccine: Age 65+ (1 of 1 - PPSV23) Pneumococcal Vaccine: Age 65+ (1 of 1 - PPSV23) [facility] Start: 2004 RSV patients and/or patients aged 60+ years (1 - 1-dose 60+ series) RSV patients and/or patients aged 60+ years (1 - 1-dose 60+ series) [facility] Start: 2004 RSV Vaccine (1 - 1-dose 60+ series) RSV Vaccine (1 - 1-dose 60+ series) [facility] Start: 1962 Anxiety Screening Anxiety Screening [facility] Start: 1962 Hepatitis C screening Hepatitis C Screening [facility] Start: 1956 Depression screening using PHQ-9 (Patient Health Questionnaire 9) score Depression Screening (PHQ9) [facility] Start: 1947 History and physical examination, annual for health maintenance Wellness Visit [facility] Start: 1944 Lipid panel Lipid Panel [facility] Start: 1944 Medicare Annual Wellness Visit Medicare Annual Wellness Visit (AWV) [facility] Start: 1944 Screening for osteoporosis [facility] Albumin [Moles/volum e] in Serum or Plasma [facility] Albumin [Moles/volum e] in Serum or Plasma [facility] Albumin/Globulin ratio [facility] Albumin/Globulin ratio [facility] Garland IgE Ab [Units/volume] in Serum [facility] Work Phone: Ambulatory ECG [facility] Antibody to lupus La protein measurement [facility] Antibody to SS-A measurement [facility] Apple IgE Ab [Units/volume] in Serum [facility] Work Phone: Bacteria identified in Urine by Culture URINE CULTURE Microbiology Routine Dark urine 03/29/2023 11:30 AM EDT [facility] Work Phone: Bacteria identified in Urine by Culture URINE CULTURE Microbiology Routine Urinary incontinence, unspecified type 02/14/2024 1:37 PM EDT [facility] Work Phone: Bacteria identified in Urine by Culture URINE CULTURE Microbiology Routine Acute cystitis with hematuria 03/20/2024 11:45 AM EDT [facility] Stewart's yeast IgE Ab [Units/volume] in Serum [facility] Work Phone: Banana IgE Ab [Units/volume] in Serum [facility] Work Phone: Barley RAST [facility] Work Phone: Beef IgE Ab [Units/volume] in Serum [facility] Work Phone: Dewitt Nut IgE Ab [Units/volume] in Serum [facility] Work Phone: CARDIAC REHAB II OUT PT ([place], [place]) CARDIAC REHAB II OUTPT ([place], [place]) BIC Routine 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 Ordered: 12/10/2021 [facility] Work Phone: Comment on above: Ordered: 12/10/2021 Carrot IgE Ab [Units/volume] in Serum [facility] Work Phone: Cashew nut IgE Ab [Units/volume] in Serum [facility] Work Phone: CBC W Auto Different ial panel - Blood [facility] Work Phone: Centromere protein B Ab [Units/volume] in Serum [facility] Ceruloplasmin [Mass/volume] in Serum or Plasma [facility] Chicken IgE Ab [Units/volume] in Serum [facility] Work Phone: Chromatin Ab [Units/volume] in Serum or Plasma [facility] Clam IgE Ab [Units/volume] in Serum [facility] Work Phone: Codfish IgE Ab [Units/volume] in Serum [facility] Work Phone: Copper [Moles/volume ] in Serum or Plasma [facility] [place] IgE Ab [Units/volume] in Serum [facility] Work Phone: Cow milk IgE Ab [Units/volume] in Serum [facility] Work Phone: Crab IgE Ab [Units/volume] in Serum [facility] [place] Work Phone: Cyclic citrullinated peptide IgG Ab [Units/volume] in Serum or Plasma [facility] DNA double strand Ab [Units/volume] in Serum [facility] Egg white IgE Ab [Units/volume] in Serum [facility] [place] Work Phone: Egg yolk IgE Ab [Units/volume] in Serum [facility] [place] Work Phone: Electrical periphera l nerve stimulation [facility] Electrical periphera l nerve stimulation [facility] Electrophoresis: [id number] [facility] Electrophoresis: [id number] [facility] Electrophoresis: sukumar ma globulin [facility] Electrophoresis: sukumar ma globulin [facility] End: 11-05-2025 EMG(NEURO/NI) EMG(NEURO/NI) EMG Routine Neuropathy 1 Occurrences starting 11/05/2024 until 11/05/2025 [facility] Work Phone: Comment on above: 1 Occurrences starting 11/05/2024 until 11/05/2025 Ferritin [Mass/volum e] in Serum or Plasma [facility] [place] Work Phone: Garlic IgE Ab [Units/volume] in Serum [facility] [place] Work Phone: Globulin measurement [facility] Globulin measurement [facility] Gluten IgE Ab [Units/volume] in Serum [facility] [place] Work Phone: Amrion nut RAST [facility] Work Phone: IgA [Mass/volume] in Serum or Plasma [facility] IgA [Mass/volume] in Serum or Plasma [facility] IgA [Mass/volume] in Serum or Plasma [facility] IgE [Units/volume] i n Serum or Plasma [facility] IgE [Units/volume] i n Serum or Plasma [facility] IgG [Mass/volume] in Serum or Plasma [facility] IgG [Mass/volume] in Serum or Plasma [facility] IgM [Mass/volume] in Serum or Plasma [facility] IgM [Mass/volume] in Serum or Plasma [facility] Iron and Iron bindin g capacity panel - Serum or Plasma [facility] Work Phone: Anisa-1 extractable nuc lear Ab [Units/volume] in Serum [facility] [place]/lambda light c francisco ratio [facility] [place]/lambda light c francisco ratio [facility] Lambda light chains. free [Mass/volume] in Serum or Plasma [facility] Lambda light chains. free [Mass/volume] in Serum or Plasma [facility] [place] Lobster IgE Ab [Units/volume] in Serum [facility] [place] Work Phone: End: 05-16-2024 KYA SCREENING KYA SCREENING Radiology Routine Encounter for screening mammogram for malignant neoplasm of breast 1 Occurrences starting 04/17/2023 until 05/16/2024 [facility] Work Phone: Comment on above: 1 Occurrences starting 04/17/2023 until 05/16/2024 Nuclear Ab [Presence ] in Serum [facility] [place] Onion IgE Ab [Units/volume] in Serum [facility] [place] Work Phone: Hematite IgE Ab [Units/volume] in Serum [facility] [place] Work Phone: Patient Education [facility] Work Phone: Patient referral [facility] Work Phone: Pea IgE Ab [Units/vo lume] in Serum [facility] [place] Work Phone: [place] IgE Ab [Units/volume] in Serum [facility] [place] Work Phone: Peanut IgE Ab [Units/volume] in Serum [facility] [place] Work Phone: Pecan or [place] Nut IgE Ab [Units/volume] in Serum [facility] [place] Work Phone: Pork IgE Ab [Units/volume] in Serum [facility] [place] Work Phone: Potato IgE Ab [Units/volume] in Serum [facility] [place] Work Phone: Procedure [facility] Work Phone: Protein electrophore sis panel - Serum or Plasma [facility] Protein electrophore sis panel - Serum or Plasma [facility] [place] End: 05-19-2024 Radex facial bones complete minimum 3 views XR FACIAL BONES 3V AP/LAT/DRISCOLL Radiology Routine Fall, initial encounter Contusion of cheek, initial encounter 1 Occurrences starting 04/20/2023 until 05/19/2024 [facility] Work Phone: Comment on above: 1 Occurrences starting 04/20/2023 until 05/19/2024 Radex facial bones complete minimum 3 views XR FACIAL BONES 3V AP/LAT/DRISCOLL Radiology Routine Fall, initial encounter Contusion of cheek, initial encounter 04/20/2023 3:41 PM EDT [facility] Work Phone: Rice IgE Ab [Units/volume] in Serum [facility] [place] Work Phone: OLERICULTURE PROFESSOR antibody measurement [facility] Moore IgE Ab [Units/volume] in Serum [facility] [place] Work Phone: Scallop RAST [facility] Work Phone: SCL-70 extractable nuclear Ab [Units/volume] in Serum by Immunoassay [facility] [place] Serum oat IgE antibo dy ratio [facility] [place] Work Phone: Sesame seed RAST [facility] Work Phone: Shrimp IgE Ab [Units/volume] in Serum [facility] [place] Work Phone: Irvin extractable nu clear Ab [Presence] in Serum [facility] Soybean IgE Ab [Units/volume] in Serum [facility] [place] Work Phone: [place] IgE Ab [Units/volume] in Serum [facility] Work Phone: Thiamine measurement [facility] Thyroglobulin antibo dy measurement [facility] [place] Thyroperoxidase Ab [Units/volume] in Serum or Plasma [facility] Tissue transglutamin ase IgA Ab [Units/volume] in Serum [facility] Tomato IgE Ab [Units/volume] in Serum [facility] [place] Work Phone: Tuna IgE Ab [Units/volume] in Serum [facility] Work Phone: [place] meat IgE Ab [Units/volume] in Serum [facility] Work Phone: UA DIP, URINE (POC) UA DIP, URIN E (POC) Lab Routine Acute cystitis with hematuria Ordered: 03/20/2024 [facility] Work Phone: Comment on above: Ordered: 03/20/2024 Urinalysis complete panel - Urine URINALYSIS, WITH MICROSCOPIC Lab Routine Dark urine 03/29/2023 11:30 AM EDT [facility] Work Phone: Urine kappa light ch ain measurement [facility] [place] Urine kappa light ch ain measurement [facility] US Carotid arteries [facility] US Heart [facility] End: 11-10-2024 US KIDNEY/BLADDER US KIDNEY/BLADDER Radiology STAT Microscopic hematuria Calcium oxalate crystals in urine 1 Occurrences starting 10/12/2023 until 11/10/2024 [facility] Work Phone: Comment on above: 1 Occurrences starting 10/12/2023 until 11/10/2024 Vitamin B12 measurement [facility] Work Phone: [place] RAST [facility] Work Phone: Wheat IgE Ab [Units/volume] in Serum [facility] [place] Work Phone: End: 10-19-2025 XR Foot - right AP and Lateral and oblique XR FOOT GENERAL 3V AP/LAT/OBL RIGHT Radiology Routine Foot pain, right Weakness of foot, right 1 Occurrences starting 09/19/2024 until 10/19/2025 [facility] Work Phone: Comment on above: 1 Occurrences starting 09/19/2024 until 10/19/2025 XR Foot - right AP a nd Lateral and oblique XR FOOT GENERAL 3V AP/LAT/OBL RIGHT Radiology Routine Foot pain, right Weakness of foot, right 09/19/2024 3:00 PM EST [facility] End: 04-20-2023 XR KNEE INJURY 4V AP/LAT/OBLS RIGHT [facility] Work Phone: Comment on above: ONCE for 1 Occurrences starting 04/20/20 23 until 04/20/2023 [facility] Immunizations Immunization Date Immunization Notes Care Provider [place] 03-20-2024 zoster vaccine recombinant Emelia Lynn APRN.CNP Work Phone: [facility] 04-21-2021 pneumococcal polysaccharide vaccine, 23 valent Generic [facility] Work Phone: [facility] 04-01-2021 Covid (Tera & Tera) Dr. Armando Orozco Work Phone: [facility] [place] 12-17-2020 COVID-19 vaccine (LILLY) Armando Orozco MD Work Phone: [facility] Work Phone: 07-22-2020 influenza virus vaccine, unspecified formulation Armando Orozco MD Work Phone: [facility] 12-05-2019 tetanus toxoid, redu pravin diphtheria toxoid, and acellular pertussis vaccine, adsorbed Armando Orozco MD Work Phone: [facility] 09-25-2019 influenza, high dose seasonal, preservative-free Armando Orozco MD Work Phone: [facility] 08-01-2016 influenza, high dose seasonal, preservative-free Armando Orozco MD Work Phone: [facility] 08-01-2016 pneumococcal conjuga te vaccine, 13 valent Armando Orozco MD Work Phone: [facility] 07-22-2015 influenza, injectabl e, quadrivalent, preservative free Dr. Armando Orozco Work Phone: [facility] [place] 07-22-2015 influenza, seasonal, injectable Dr. Armando Orozco Work Phone: [facility] [place] 07-08-2014 influenza, seasonal, injectable Armando Orozco MD Work Phone: [facility] 06-27-2013 influenza virus vaccine, unspecified formulation Armando Orozco MD Work Phone: [facility] 11-09-2012 zoster vaccine, live Armando odonnell MD Work Phone: [facility] 06-15-2012 influenza virus vaccine, unspecified formulation Armando Orozco MD Work Phone: [facility] 12-12-2011 pneumococcal polysaccharide vaccine, 23 valent Armando Orozco MD Work Phone: [facility] 07-11-2011 tetanus toxoid, redu pravin diphtheria toxoid, and acellular pertussis vaccine, adsorbed Armando Orozco MD Work Phone: [facility] 10-19-2001 diphtheria and tetan us toxoids, adsorbed for pediatric use Armando Orozco MD Work Phone: [facility] Work Phone: Payers Date Payer Category Payer Self-pay [id number] 2024 Medicare (Managed Care) MMO [employer] HMO Member Subscriber Plan / Payer (Effective 2024-Present) Name: Bharti Akbar Relation to Subscriber: Self Name: Bharti Akbar Payer ID: Not on file Type: HMO Address: [place] [id number] 2024 Medicare [id number] 2019 Unknown [id number]. [id number] 2013 Unknown [id number] 2009 Medicare [id number]. [id number] 2009 Medicare [id number] 2009 Medicare [id number]. 1.13.159. 2.7.3.063819.315 2006 Unknown 1944 Unknown [id number] 2.16.840.1.069970.3.579. 2.903 1944 Unknown [id number] 2.16.840.1.925448.3.579. 2.903 1944 Unknown [id number] 2.16.840.1.540062.3.579. 2.594 1944 Unknown [id number] 2.16.840.1.761835.3.579. 2.594 1944 Unknown [id number] 2.16.840.1.950337.3.579. 2.594 1944 Unknown [id number] 2.16.840.1.052121.3.579. 2.1068 1944 Unknown [id number] 2.16.840.1.682878.3.579. 2.1068 1944 Unknown [id number] 2.16.840.1.034089.3.579. 2.1068 1944 Unknown [id number] 2.16.840.1.931105.3.579. 2.1068 1944 Unknown [id number] 2.16.840.1.357415.3.579. 2.1068 1944 Unknown [id number] 2.16.840.1.607385.3.579. 2.1068 1944 Unknown [id number] 2.16.840.1.104332.3.579. 2.1068 1944 Unknown [id number] 2.16.840.1.483321.3.579. 2.1068 1944 Unknown [id number] 2.16.840.1.160246.3.579. 2.1068 1944 Unknown [id number] 2.16.840.1.084607.3.579. 2.1068 1944 Unknown [id number] 2.16.840.1.222451.3.579. 2.356 1944 Unknown [id number] 2.16.840.1.039029.3.579. 2.356 1944 Unknown [id number] 2.16.840.1.846416.3.579. 2.356 1944 Unknown [id number] 2.16.840.1.589822.3.579. 2.356 1944 Unknown [id number] 2.16.840.1.207583.3.579. 2.903 1944 Unknown [id number] 2.16.840.1.513305.3.579. 2.903 1944 Unknown [id number] 2.16.840.1.417348.3.579. 2.903 1944 Unknown [id number] 2.16.840.1.386223.3.579. 2.903 1944 Unknown [id number] 2.16.840.1.771424.3.579. 2.902 1944 Unknown [id number] 2.16.840.1.066572.3.579. 2.1243 1944 Unknown [id number] 2.16.840.1.824698.3.579. 2.1243 1944 Unknown [id number] 2.16.840.1.891634.3.579. 2.1243 1944 Unknown [id number] 2.16.840.1.413052.3.579. 2.1243 Unknown [id number] 2.16.840.1.071417.3.579. 2.462 Unknown [id number] 2.16.840.1.939516.3.579. 2.462 Unknown [id number] 2.16.840.1.176964.3.579. 2.462 Unknown [id number] 2.16.840.1.434275.3.579. 2.462 Unknown [id number] 2.16.840.1.632910.3.579. 2.462 Unknown [id number] 2.16.840.1.569112.3.579. 2.462 Unknown [id number] 2.16.840.1.182583.3.579. 2.462 Unknown [id number] 2.16.840.1.763704.3.579. 2.462 Unknown [id number] 2.16.840.1.262240.3.579. 2.462 Unknown [id number] 2.16.840.1.210168.3.579. 2.462 Unknown [id number] 2.16.840.1.336728.3.579. 2.462 Unknown [id number] 2.16.840.1.055882.3.579. 2.462 Unknown [id number] 2.16.840.1.244258.3.579. 2.462 Unknown [id number] 2.16.840.1.374676.3.579. 2.462 Unknown [id number] 2.16.840.1.684599.3.579. 2.462 Unknown [id number] 2.16.840.1.758425.3.579. 2.462 Unknown [id number] 2.16.840.1.391172.3.579. 2.462 Unknown [id number] 2.16.840.1.912732.3.579. 2.462 Social History Date Type Detail Facility Start: 04-19-2021 End: 01-30-2025 Tobacco smoking status NMIS Never smoker [facility] Start: 04-19-2021 End: 05-22-2024 Tobacco use and exposure Never used [facility] Start: 04-19-2021 End: 07-27-2023 Alcohol intake Ex-drinker (finding) [facility] Start: 1945 Sex Assigned At Not on file O [facility] Start: 03-14-2021 End: 05-22-2024 Exposure to SARS-CoV-2 (event) Not sure [facility] Start: 12-10-2021 End: 02-11-2025 Alcohol intake Current drinker of alcohol (finding) [facility] Start: 04-13-2021 History SDOH Social Connections Phone 4 [facility] Start: 04-13-2021 History SDOH Social Connections Get Together 98 [facility] Start: 04-13-2021 History SDOH Social Connections Hoahaoism 2 [facility] Start: 04-13-2021 End: 07-07-2021 History SDOH Social Connections Living 3 [facility] Start: 04-13-2021 History SDOH Physica l Activity DPW 6 [facility] Start: 04-13-2021 History SDOH Physica l Activity MPS 10 [facility] Start: 04-13-2021 History SDOH Financial 5 [facility] Start: 04-13-2021 History SDOH Food Worry 1 [facility] Start: 04-12-2021 Education 15 [facility] Start: 11-30-2021 End: 04-12-2023 Tobacco smoking status NHIS Unknown if ever smoked [facility] Start: 12-24-2019 Non-smoker [facility] Start: 1945 Sex Assigned At Female [facility] Start: 04-12-2021 End: 09-19-2024 Non-smoker Non-smoker [facility] Start: 04-12-2021 End: 09-19-2024 Social connection and isolation panel [facility] How often do you get together with friends or relatives? Patient refused [facility] Do you belong to any clubs or organizations such as latter-day groups, unions, fraternal or athletic groups, or school groups? No [facility] Are you now , , , , never or living with a partner? [facility] Do you feel stress - tense, restless, nervous, or anxious, or unable to sleep at night because your mind is troubled all the time - these days [OSQ] Only a little [facility] (I/We) worried wheth er (my/our) food would run out before (I/we) got money to buy more. Never true [facility] Start: 08-20-2015 None [facility] Start: 08-20-2015 Spouse/ Signif icant Other [facility] Start: 04-17-2021 Gender identity Identifies as female gender (finding) [facility] Start: 04-17-2021 Sexual orientation Heterosexual (fin ding) [facility] Do you feel stress - tense, restless, nervous, or anxious, or unable to sleep at night because your mind is troubled all the time - these days [OSQ] To some extent [facility] (I/We) worried jaycee er (my/our) food would run out before (I/we) got money to buy more. DK or Refused [facility] Start: 05-22-2024 Alcoholic beverage intake Lifetime non-drinker (finding) [facility] Work Phone: Start: 12-24-2024 Sex Female (finding) [facility] How often to you hav e a drink containing alcohol? Monthly or less [facility] How often do you hav e 6 or more drinks on 1 occasion? Never [facility] Do you feel stress - tense, restless, nervous, or anxious, or unable to sleep at night because your mind is troubled all the time - these days [OSQ] Not at all [facility] NEGATED: Highlighted rowStart: NINF History of tobacco use Passive smoker [facility] Work Phone: Medical Equipment Procedure Code Equipment Code Equipment Origin al Text Equipment Identifier Dates Stent 2.75 X 12 Synergy Xd Mr - [id number] ()[id number] , [id number] FDA Start: 04-19-2021 Stent 2.75 X 08 Synergy Xd Mr - [id number] ()[id number] , [id number] FDA Start: 04-19-2021 Goals Date Patient Goal Desired Activity /State Functional Status Date Assessment Result Facility 12-23-2024 Total score [AUDIT-C] 1 12/24/19 25 8:01 PM EDT User, Rolo [facility] 12-23-2024 Within the last year , have you been humiliated or emotionally abused in other ways by your partner or ex-partner? No 12/23/2024 8:01 PM EDT User, Rolo [facility] 12-23-2024 Within the last year , have you been afraid of your partner or ex-partner? No 12/23/2024 8:01 PM EDT User, Rolo [facility] 12-23-2024 Within the last year , have you been raped or forced to have any kind of sexual activity by your partner or ex-partner? No 12/23/2024 8:01 PM EDT User, Milanahart No [facility] 12-23-2024 Within the last year , have you been kicked, hit, slapped, or otherwise physically hurt by your partner or ex-partner? No 12/23/2024 8:01 PM EDT User, Mychart No [facility] 12-23-2024 How often to you hav e a drink containing alcohol? Monthly or less 12/23/2024 8:01 PM EDT User, Mychart Monthly or less [facility] 12-23-2024 Functional status Patient does n ot drink 12/23/2024 8:01 PM EDT User, Mychart Patient does not drink [facility] 12-23-2024 How often do you hav e 6 or more drinks on 1 occasion? Never 12/23/2024 8:01 PM EDT User, Mychart Never [facility] 01-06-2024 Functional status Bedrest [facility] Work Phone: 11-15-2023 Functional [facility] Work Phone: 03-05-2015 Are you deaf, or do you have serious difficulty hearing No 03/05/2015 1:38 PM ALVAROT Carito Mederos LPN No [facility] 03-05-2015 Are you blind, or do you have serious difficulty seeing, even when wearing glasses No 03/05/2015 1:38 PM EDT Carito Mederos LPN No [facility] 03-05-2015 Do you have serious difficulty walking or climbing stairs No 03/05/2015 1:38 PM Carito Sam LPN No [facility] 03-05-2015 Do you have difficul ty dressing or bathing No 03/05/2015 1:38 PM Carito Sam LPN No [facility] 03-05-2015 Because of a physica l, mental, or emotional condition, do you have difficulty doing errands alone such as visiting a physician's office or shopping No 03/05/2015 1:38 PM EDT Carito Mederos LPN No [facility] Mental Status Date Assessment Result Facility 01-06-2024 Cognitive function Voice/Name [facility] Work Phone: 01-04-2024 Cognitive function Voice/Name [facility] Work Phone: 11-15-2023 Cognitive function Voice/Name [facility] Work Phone: 09-18-2023 Cognitive function Voice/Name [facility] Work Phone: 08-29-2021 Cognitive function Awake;Alert;A ppropriate; Follows Commands [facility] Work Phone: 03-05-2015 Because of a physica l, mental, or emotional condition, do you have serious difficulty concentrating, remembering, or making decisions Yes 03/05/2015 1:38 PM EDT Carito Mederos LPN Yes [facility] Clinical Notes 07-07-2015 to 02-11-2025 Telephone [...] Sena LPN February 11, 2025 9:40 AM [facility] 02-11-2025 Miscellaneous Notes Formattin g of [...] TABLET BY MOUTH ONCE DAILY AT BEDTIME Kmi Sena LPN February 11, 2025 9:40 AM documented in this encounter [facility] 02-07-2025 Evaluation note Diagnosis Onset Date Resolution Leg cramps acute February 07, 2025 10:37am [facility] Work Phone: 1(619) 315-965905-30-2025 Evaluation note* Diagnosis Onset Date Resolution Status Admit Date Leg cramps acute February 07, 2025 10:37am Degenerative disc disease (D DD) of lumbar region with discogenic back pain acute February 17, 2025 2 :54pm Degenerative scoliosis acute ne 2024 2:54pm Low bone density acute February 2:54pm [facility] Work Phone: 1(306) 243-615805-30-2025 Evaluation note* Diagnosis Onset Date Resolution Status Admit Date Leg cramps acute February 07, 2025 10:37am Degenerative disc disease (DDD) of lumbar region with discogenic back pain acute February 17, 2:54pm Degenerative scoliosis acute Ju ne 2024 2:54pm Low bone density acute February 2:54pm Aortic stenosis acute March 11, 2025 3:03pm CAD (coronary artery disease) chroni c March 11, 2025 3:03pm Carotid artery disease chronic Ju 2024 3:03pm Dyslipidemia chronic March 11 3:03pm Essential hypertension chronic ly 2024 3:03pm CVA (cerebral vascular accident) ruled-out March 11, 2025 3 :03pm Nocturia noneactive April 11 1:32pm Urge incontinence noneactive April 11, 2025 1:32pm [facility] Work Phone: 1(838) 847-719505-30-2025 Evaluation note* Diagnosis Onset Date Resolution Status Admit Date Leg cramps acute February 07, 2025 10:37am Degenerative disc disease (DDD) of lumbar region with discogenic back pain acute February 17, 2 025 2:54pm Degenerative scoliosis acute ne 2024 2:54pm Low bone density acute February [...] Urge incontinence acute April 15, 2025 2:53pm [facility] Work Phone: 1(282) 132-539205-30-2025 Evaluation note* Diagnosis Onset Date Resolution Status Admit Date Leg cramps acute February 07, 2025 10:37am Degenerative disc disease (DDD) of lumbar region with discogenic back pain acute February 17, 2 025 2:54pm Degenerative scoliosis acute ne 2024 2:54pm Low bone density acute February [...] 15, 2025 2:53pm Nocturia acute April 22, 2 025 2:11pm Urge incontinence acute April 22, 2025 2:11pm [facility] Work Phone: 1(433) 265-633705-30-2025 Evaluation note* Diagnosis Onset Date Resolution Status Admit Date Leg cramps acute February 07, 2025 10:37am Degenerative disc disease (DDD) of lumbar region with discogenic back pain acute February 17, 2 025 2:54pm Degenerative scoliosis acute ga 2024 2:54pm Low bone density acute February 2:54pm Aortic stenosis acute March 11, 2025 3:03pm CAD (coronary artery disease) chroni c March 11, 2025 3:03pm Carotid artery disease chronic 2024 3:03pm Dyslipidemia chronic March 11 3:03pm Essential hypertension chronic 2024 3:03pm CVA (cerebral vascular accident) ruled-out March 11, 2025 3 :03pm Nocturia noneactive April 11 1:32pm Urge incontinence noneactive April 11, 2025 1:32pm Urge incontinence acute April 15, 2025 2:53pm Nocturia acute April 22, 2 025 2:11pm Urge incontinence acute April 22, 2025 2:11pm Nocturia acute April 29, 2 025 2:10pm Urge incontinence acute April 29, 2025 2:10pm [facility] Work Phone: 1(949) 590-841405-22-2025 NoteHNO ID: [id number] Author: JAGUAR BALLARD APRN.FREDY Service: ? Author Type: Nurse Practitioner Type: Progress Notes Filed: 01/30/2025 18:45 Note Text: Patient triaged at [facility]. Here today with head injury few days ago, pain worsening since fall. Patient in no apparent distress at time of triage. I will refer to ER. Unclear what ER will go to at this time. Denies jignesh.[facility]04-15-2025 Instructions* Patient Instructions* Kushal Weldon APRN.CNP - 12/24/2024 1:26 PM EDT We discussed [...] your right knee by Dr. Kilpatrick at [facility] in July 2023. - You may follow up with Dr. Kilpatrick every three months for additional knee injections if needed. Please contact [facility] directly to schedule this if you wish [...] - Follow up with Dr. Kilpatrick at [facility] for knee arthritis management if desired. - Schedule a follow-up appointment with us to recheck your blood pressure and evaluate your response to the prednisone taper. - Continue monitoring your blood pressure at home and bring your readings to your next visit. If you have any questions or concerns, please contact our office. documented in this encounterAkron Children'S Hospital04-15-2025 History of Present illness Narrative* Kushal [...] extremity arterial study with exercise completed at [facility] on 12/18/2024. She has been evaluated by orthopedics at [facility], Dr. Juan Kilpatrick (07/26/2023). Received cortisone injections, [...] in July [address] Kilpatrick at [facility] and was advised to follow up every [...] right knee injection by Dr. Kilpatrick at [facility] in July 2023. - Follow-up with orthopedic surgery for potential repeat knee injections every 3 months. - Provided information on accessing [facility] for records. 2. Fibromyalgia (M79.7) Widespread pain, [...] needed. This note was partly generated using Cortus SA voice recognition dictation and may contain some misspelled or inaccurate words missed on review. Recording using AdReady software for draft documentation of the visit was discussed with the patient/authorized telesales representative; all questions welcomed and answered. Patient/authorized telesales representative agreed to proceed documented in this encounterAkron Children'S Hospital04-15-2025 NoteHNO ID: [id number] Author: KUSHAL WELDON APRN.FREDY Service: ? Author Type: Nurse Practitioner Type: [...] extremity arterial study with exercise completed at [facility] on 12/18/2024. She has been evaluated by orthopedics at [facility], Dr. Juan Kilpatrick (07/26/2023). Received cortisone injections, [...] in July [address] Kilpatrick at [facility] and was advised to follow up every [...] right knee injection by Dr. Kilpatrick at [facility] in July 2023. - Follow-up with orthopedic surgery for potential repeat knee injections every 3 months. - Provided information on accessing [facility] for records. 2. Fibromyalgia (M79.7) Widespread pain, [...] needed. This note was partly generated using Cortus SA voice recognition dictation and may contain some misspelled or inaccurate words missed on review. Recording using AdReady software for draft documentation of the visit was discussed with the patient/authorized telesales representative; all questions welcomed and answered. Patient/authorized telesales representative agreed to proceedJoint [facility] History of Present illness Narrative* Armando Orozco MD - 12/10/2024 1:20 PM EDT Chief Complaint Patient presents with: F/U 6 Month HPI Bharti Akbar is a 79 year old female who presents here today for 6 month follow up. Pt here today for a 6 month follow up. Bharti is adjusting to jail, noting a significant decrease in physical activity from 10,000-13,000 steps per day to less than 2,000. She misses the social interaction and sense of purpose from her previous job at [employer] and is considering volunteer work at [employer]. She also mentions her 's reluctance to [...] or dizziness. Reports occ sob. Follows with [facility] every 6 months. Next appt is in January. Meds are being adjusted by Cardiology. Lipid: Tries to watch her diet. Denies exercise, but is planning on doing this. [facility] accepts Silver Sneakers so she's planning on [...] Podiatry - Follows with Dr. Cannon at [facility] for right drop foot. Is also having anUS or PAD testing done for the swelling and pain in her lower legs. Pt also notes she's in PT as well for right drop foot. Doing PT through [facility] in [place]. HM - Does have Adv Dir/Living Will, both daughters are in charge of her medical. Past medical history, appointments, medications, allergies reviewed. Previous Medical History PAST MEDICAL HISTORY Diagnosis Date A-fib (HCC) Astigmatism, unspecified - Both Eyes 11/17/2014 C2 cervical fracture ([facility]) CAD (coronary artery disease) 2015 heart stent x 1/ bare metal CAD (coronary artery disease) Chronic periscapular pain on left side 07/19/2016 Closed fracture of cervical spine ([facility]) 11/03/2010 DEPRESSIVE DISORDER NEC 01/23/2007 Depressive disorder, [...] OF 2002 Lasik Surgery on both eyes ([facility]) PAST SURGICAL HISTORY OF 2010 broken neck [...] Covid-19 Vaccine(3 - season) due on 06/10/2025 Anxiety Screening [...] 11/05/2024 1.50 Monocytes % 11/05/[address] [facility] 11/05/2024 0.35 Eosinophils % 11/05/2024 1.4 Abs [...] 11/05/2024 Reviewed by Je Quinn MD, Ph.D ([id number]) Comment (Serum Prot Elec* 11/05/2024 Monoclonal Protein analysis (immunofixation) is not indicated. 1. Essential hypertension (I10) Blood pressure is well-controlled. Continue current management and follow-up with [facility] in January. 2. 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(I25.10) Clinically stable. Continue current management and follow-up with [facility] in January. 3. History of stroke (Z86.73) Clinically stable. Continue current management. 4. Hypothyroidism, acquired (E03.9) Thyroid function tests are within normal limits. Refilled thyroid medication at [facility] pharmacy in [place]. 5. Sleep disorder (G47.9) Experiencing nocturnal awakenings around 7267-8014. Currently taking Trazodone. Increase Trazodone to 3 tablets nightly. If effective, adjust prescription quantity accordingly. 6. Myalgias (M79.10) Experiencing leg pain, possibly due to poor circulation. Undergoing physical therapy at [facility] in [place]. Continue physical therapy. Await results of scheduled [...] 4 - Moderate Armando Orozco MD The patient consented to the use of AdReady software for draft documentation of the visit consistent with [facility] s Notice of Privacy Practices. documented in this encounterAkron Children'S Hospital04-01-2025 NoteHNO ID: [id number] Author: ARMANDO OROZCO MD Service: ? Author Type: Physician Type: Progress Notes Filed: 12/10/2024 13:51 Note Text: Chief Complaint Patient presents with: F/U 6 Month HPI Bharti Akbar is a 79 year old female who presents here today for 6 month follow up. Pt here today for a 6 month follow up. Bharti is adjusting to jail, noting a significant decrease in physical activity from 10,000-13,000 steps per day to less than 2,000. She misses the social interaction and sense of purpose from her previous job at [employer] and is considering volunteer work at [facility]. She also mentions her 's reluctance to [...] or dizziness. Reports occ sob. Follows with [facility] every 6 months. Next appt is in January. Meds are being adjusted by Cardiology. Lipid: Tries to watch her diet. Denies exercise, but is planning on doing this. [facility] accepts Silver Sneakers so she's planning on [...] Podiatry - Follows with Dr. Cannon at [facility] for right drop foot. Is also having an US or PAD testing done for the swelling and pain in her lower legs. Pt also notes she's in PT as well for right drop foot. Doing PT through [facility] in [place]. HM - Does have Adv Dir/Living Will, both daughters are in charge of her medical. Past medical history, appointments, medications, allergies reviewed. Previous Medical History PAST MEDICAL HISTORY Diagnosis Date A-fib ([facility]) Astigmatism, unspecified - Both Eyes 11/17/2014 C2 cervical fracture ([facility]) CAD (coronary artery disease) 2015 heart stent x 1/ bare metal CAD (coronary artery disease) Chronic periscapular pain on left side 07/19/2016 Closed fracture of cervical spine ([facility]) 11/03/2010 DEPRESSIVE DISORDER NEC 01/23/2007 Depressive disorder, [...] OF 2002 Lasik Surgery on both eyes ([facility]) PAST SURGICAL HISTORY OF 2010 broken neck PAST SURGICAL HISTORY OF 08/2015 Bare metal stent/ graft of heart x 1 PRQ CARDIAC STENT W/ANGIO 1 VSL 09/01/2015 Mid Lad TONSILLECTOMY PRIMARY/SECONDARY TOTAL ABDOMINAL HYSTERECT W/WO RMVL TUBE OVARY 1994 Hysterectomy, TAHBSO XCAPSL CTRC RMVL INSJ IO LENS PROSTH W/O ECP 12/25/2014 Cataract Extraction with (more content not included)...[facility]03-10-2025 NoteHNO ID: [id number] Author: REBEKAH ASHBY MD Service: ? Author [...] Plan of Care Visit completed when applicable. Zaria Strickland Emg tech [facility] History of Present illness Narrative* Rebekah Ashby [...] Plan of Care Visit completed when applicable. Zaria Strickland Emg tech Rebekah Ashby MD documented in this encounterAkron Children'S Hospital02-25-2025 Instructions* Patient Instructions* Maya Katz PA-C - 11/05/2024 12:00 PM EST Alpha lipoic acid 600mg for nerve pain EMG of the right leg Laboratory studies Continue with Aricept 10mg once daily Follow up in 3-[address] Granger documented in this encounterAkron Children'S Hospital02-25-2025 NoteHNO ID: [id number] Author: MAYA KATZ PA-C Service: ? Author Type: Physician College Or University Faculty Member Type: Progress Notes Filed: 11/05/2024 13:04 Note Text: [facility] Name: Bharti Akbar [...] - A [facility] on the [place] [facility]. DUCT LAYER HELPER/OT/PT: Speech therapy, Occupational therapy, Physical Therapy Driving: Do you have safety concerns? Power of Breaker Unit Assembler/ planning of the patient's will Project Lifesaver: [...] hospital stroke workup after receiving TNK per [facility] notes. There was no stroke. As with many of patient's complaints, there is inconsistencies in the history provided. Pt is not reporting an acute change prior to arriving at the hospital nor is she reporting focal neurologic deficits at the time of presentation. I will be making no changes to her prior stro (more content not included)...[facility]02-25-2025 History of Present illness Narrative* Maya Katz PA-C - 11/05/2024 11:17 AM EST Images from the original note were not included. [facility] Name: Bharti Akbar [...] - A [facility] on the [facility]. DUCT LAYER HELPER/OT/PT: Speech therapy, Occupational therapy, Physical Therapy Driving: Do you have safety concerns? Power of Breaker Unit Assembler/ planning of the patient's will Project Lifesaver: [...] hospital stroke workup after receiving TNK per [facility] notes. There was no stroke. As [...] examination. 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 Question if functional neurologic disorder. Patient declined to seeDr. Camilo for second opinion, but after most recent visits and change in exam, low suspicion for PD. 6. Headaches - ICD9: 784.0, ICD10: R51.9 Resolved. No further therapy. Vega Granger MD HPI: Last seen on 01/12/[address] Granger for dementia. Never saw Dr. Camilo, not driving. [place] , nofamily with pt. Increased aricept to [...] Notes that she recently did retire from [employer], was very active during this time but [...] Hand Hld (Hyperlipidemia) Coronary Artery Disease Involving [place] Coronary Artery of [place] Heart Without Angina Pectoris Fibromyalgia PAST MEDICAL [...] OF 2002 Lasik Surgery on both eyes ([facility]) PAST SURGICAL HISTORY OF 2010 broken neck [...] left hip flexor. Upper extremities with decreased lumber tallier strength but otherwise full strength. Sensory: Decreased [...] process ... This note was dictated using Cortus SA speech recognition software and may contain some [...] which included preparing to see the patient, [id number] patient care, completing clinical documentation, obtaining and/or [...] population and warrants attention documented in this encounterAkron Children'S Hospital01-15-2025 Telephone encounter Note * Telephone Encounter - Shannon Elkins RN - 09/25/2024 3:15 PM EST Patient notified of results and provider's instructions. Patient verbalizes understanding. Shannon Elkins RN [facility]01-15-2025 Miscellaneous Notes* Telephone Encounter - Shannon [...] Telephone Encounter - Emelia Lynn APRN.FREDY - 09/25/2024 10:15 AM EST Can you [...] you. Emelia Lynn APRN.FREDY documented in this encounterAkron Children'S Hospital01-15-2025 Telephone encounter Note * Telephone Encounter - Kim Sena LPN - 09/25/2024 10:22 AM EST TC to pt. LM to call office, ask for triage nurse to get results. Kim Sena LPN [facility]01-15-2025 Telephone encounter Note* Telephone Encounter - Emelia Lynn APRN.FREDY - 09/25/2024 10:15 AM EST Can you please call the patient and let her know that I reviewed her foot x-ray results. X-ray showed No acute fracture or dislocation. Severe first MTP joint osteoarthritis. Mild scattered interphalangeal joint space narrowing which is consistent with arthritis. I would recommend that she keep upcoming appointment with podiatry for further evaluation. Thank you. Emelia Lynn APRN.FREDY [facility]01-13-2025 Telephone encounter Note* Telephone Encounter - Winnie Cunningham LPN - 09/23/2024 1:49 PM EST Patient notified. Verbalized understanding. [facility]01-13-[facility] Miscellaneous Notes* Telephone Encounter - Winnie Cunningham LPN - 09/23/2024 1:49 PM EST Patient notified. Verbalized understanding. * Telephone Encounter - Kushal Weldon APRN.CNP - 09/23/2024 1:44 PM EST TSH placed. I reviewed her chart, she had a complete autoimmune, rheumatoid workup in December 2023. This will not change. No need to repeat. Kushal Weldon APRN.FREDY * Telephone Encounter - Kika Costa LPN - 09/23/2024 10:15 AM EST Pt calling to request lab work today. She was seen on 09-19-24 by Emelia and forgot to ask. She wouldlike labs done on Thyroid, labs regarding arthritis. Pt not feeling well whether it is arthritis orfibromyalgia. Pt has an apt in [place] today and was hoping she could do this also. Please call pt to let her know when the labs are in. Kika Costa LPN documented in this encounterAkron Children'S Hospital01-13-2025 Telephone encounter Note * Telephone Encounter - Kushal Weldon APRN.CNP - 09/23/2024 1:44 PM EST TSH placed. I reviewed her chart, she had a complete autoimmune, rheumatoid workup in December 2023. This will not change. No need to repeat. Kushal Weldon APRN.FREDY [facility]01-13-2025 Telephone encounter Note* Telephone Encounter - Kika Costa LPN - 09/23/2024 10:15 AM EST Pt calling to request lab work today. She was seen on 09-19-24 by Emelia and forgot to ask. She wouldlike labs done on Thyroid, labs regarding arthritis. Pt not feeling well whether it is arthritis orfibromyalgia. Pt has an apt in [place] today and was hoping she could do this also. Please call pt to let her know when the labs are in. Kika Costa LPN [facility]01-13-2025 Miscellaneous Notes* Telephone Encounter - Sanaz Smith MA - 09/23/2024 9:53 AM EST Referral paperwork and recent x-ray faxed to [facility] at [phone]. Pt notified to contact there office to setup appt. Sanaz Smith MA documented in this encounterAkron Children'S Hospital01-13-2025 Telephone encounter Note * Telephone Encounter - Sanaz Smith MA - 09/23/2024 9:53 AM EST Referral paperwork and recent x-ray faxed to [facility] at [phone]. Pt notified to contact there office to setup appt. Sanaz Smith MA [facility]01-09-2025 History of Present illness Narrative* [place] [...] PATIENT PRESENTS WITH AN IMPLANTABLE OR ATTACHED MALL MANAGER: No RADIOLOGY DEPARTMENT: General X-ray: Exam(s) Completed: Lower Extremity X- Ray(s): Foot, Right PERIPHERAL IV DATA: Not applicable SIGNED BY: RT Naldo(Tamy) September 19, 2024 2:44 PM documented in this encounterAkron Children'S Hospital01-09-2025 NoteHNO ID: [id number] Author: CLEVELAND TABARES RT(R) Service: ? Author Type: Filter Pulp Washer Type: Progress Notes Filed: 09/19/2024 14:58 Note [...] PATIENT PRESENTS WITH AN IMPLANTABLE OR ATTACHED MALL MANAGER: No RADIOLOGY DEPARTMENT: General X-ray: Exam(s) Completed: Lower Extremity X-Ray(s): Foot, Right PERIPHERAL IV DATA: Not applicable SIGNED BY: RT Naldo(R) September 19, 2024 2:44 [facility]01-09-2025 Instructions* Patient Instructions* Emelia Lynn APRN.CNP - 09/19/2024 2:36 PM EST Get xray completed today Recommend consult with podiatry Continue supportive care at home May use anastasia bandage, apply ice and elevate as needed. May use Tylenol 650-1000 mg every 8 hours as needed for pain. Follow up pending test results. documented in this encounterAkron Children'S Hospital01-09-2025 History of Present illness Narrative* Emelia Lynn APRN.CNP - 09/19/2024 2:20 PM EST This is [...] HISTORY: PAST MEDICAL HISTORY Diagnosis Date A-fib ([facility]) Astigmatism, unspecified - Both Eyes 11/17/2014 C2 cervical fracture ([facility]) CAD (coronary artery disease) 2014 heart stent x 1/ bare metal CAD (coronary artery disease) Chronic periscapular pain on left side 07/19/2016 Closed fracture of cervical spine ([facility]) 11/03/2010 DEPRESSIVE DISORDER NEC 01/23/2007 Depressive disorder, [...] OF 2002 Lasik Surgery on both eyes ([facility]) PAST SURGICAL HISTORY OF 2010 broken neck [...] APRN.FREDY This note was partially generated using [employer] recognition system. Note was reviewed for accuracy. There may be minor misspellings or grammar miscues with Cortus SA voice recognition. documented in this encounterAkron Children'S Hospital01-09-2025 NoteHNO ID: [id number] Author: EMELIA LYNN APRN.STEAM PRESSER Service: ? Author Type: Nurse Practitioner Type: [...] - Both Eyes 11/17/2014 C2 cervical fracture ([facility]) CAD (coronary artery disease) 2014 heart stent x 1/ bare metal CAD (coronary artery disease) Chronic periscapular pain on left side 07/19/2016 Closed fracture of cervical spine ([facility]) 11/03/2010 DEPRESSIVE DISORDER NEC 01/23/2007 Depressive disorder, [...] OF 2002 Lasik Surgery on both eyes ([facility]) PAST SURGICAL HISTORY OF 2010 broken neck [...] tobacco: Never Vaping U (more content not included)...[facility]01-08-2025 Telephone encounter Note* Telephone Encounter - Leslie [...] pain--chronic unrelated to injury. Protocols used: Ankle Tvtsoy-GEFJI-HR, Foot Yczarg-MRJAK-AM [facility]01-08-2025 Miscellaneous Notes* Telephone Encounter - Leslie [...] pain--chronic unrelated to injury. Protocols used: Ankle Lhjnen-TJZNF-VU, Foot Eaxwhy-RCTEC-XX documented in this encounterAkron Children'S Hospital01-02-2025 Telephone encounter Note * Telephone Encounter - Armando Orozco MD - 09/12/2024 4:54 PM EST OK for trazodone as ordered Armando Orozco MD [facility]01-02-2025 Miscellaneous Notes* Telephone Encounter - Armando [...] a new Rx to be sent to [facility]. Rx pended. Sanaz Smith MA * Telephone [...] through the night. Protocols used: Medication Question Ldlz-GOVTH-KG documented in this encounterAkron Children'S Hospital01-02-2025 Telephone encounter Note * Telephone Encounter - Sanaz Smith MA - 09/12/2024 4:26 PM EST Call to pt and notified her of PCP's message below. Pt reports she does have some left over of Trazodone 50 mg, taking 2 tabs at bedtime. Asking for a new Rx to be sent to [facility]. Rx pended. Sanaz Smith MA [facility]01-02-2025 Telephone encounter Note* Telephone Encounter - Armando Orozco MD - 09/12/2024 3:55 PM EST She could go back to the trazodone if she feels that works better for her. Armando Orozco MD [facility]01-02-2025 Telephone encounter Note* Telephone Encounter - [...] through the night. Protocols used: Medication Question Ymwc-UFZIG-JL [facility]12-20-2024 Evaluation note* Diagnosis Onset Date Resolution Status Admit Date Bilateral carotid artery stenosis chronic August 30 11:26am Aortic stenosis acute September 112024 11:22am CAD (coronary artery disease) chroni c September 25, 2024 11:22am Carotid artery disease chronic [facility] 2024 11:22am Dyslipidemia chronic September 11:22am Essential hypertension chronic [facility] 2024 11:22am CVA (cerebral vascular accident) ruled-out September 25 11:22am [facility] Work Phone: [phone] Telephone encounter Note* Telephone Encounter - Breann Taylor OCCA - 08/15/2024 3:07 PM EST Per provider, TC to patient to again verify wanting to stay with [facility] for care. Patient statesyes, she is staying with [facility]. Scheduled for follow up with Silva Katz on 11/05/24. JOSELITO Acosta [facility]12-05-2024 Miscellaneous Notes* Telephone Encounter - Breann [...] states she has not transferred care to [facility]rologist and does not plan to do [...] see if patient has transferred care to [facility] neurologist. Vega Granger MD * Telephone Encounter [...] 13, 2024 10:30 AM documented in this encounterAkron Children'S Hospital12-04-2024 Telephone encounter Note * Telephone Encounter - Rosalba Carlos RN - 08/14/2024 4:10 PM EST Patient states she has not transferred care to [facility] Neurologist and does not plan to do so. Reports she followed up with [facility] Neuro and they could not help her. Patient asking if Dr. Granger's office will manage her Donepezil or if she should ask her PCP, Dr. Orozco, as he ordered it last for her. Patient reports she has 3 pills left. Uses 10 mg. Please call patient back with reply. Thank you. [facility]12-04-2024 Telephone encounter Note* Telephone Encounter - Veronica Corado LPN - 08/14/2024 9:04 AM EST Called patient, no answer. Left message for pt to call back in regards to message below from Dr. Granger [facility]12-03-2024 Telephone encounter Note* Telephone Encounter - Vega Granger Jr., MD - 08/13/2024 4:22 PM EST Please see if patient has transferred care to [facility] neurologist. Vega Granger MD [facility]12-03-2024 Telephone encounter Note* Telephone Encounter - [...] Najera LPN August 13, 2024 10:30 AM [facility]10-21-2024 Telephone encounter Note* Telephone Encounter - [...] For Thyroid. Authorizing Provider: KUSHAL WELDON APRN.CNP [facility]10-21-2024 Miscellaneous Notes* Telephone Encounter - Kushal [...] Thyroid. Rosalba Carlos RN documented in this encounterAkron Children'S Hospital10-21-2024 Telephone encounter Note * Telephone Encounter [...] empty stomach. For Thyroid. Rosalba Carlos RN [facility]09-30-2024 Instructions* Patient Instructions* Sanaz Smith MA - 06/10/2024 7:48 PM EDT Stop taking Trazodone 50 mg 2 tabs at bedtime. We are going to switch to Amitriptyline to help withsleep and fibromyalgia pain. Call office or mychart office if symptoms are not improving. documented in this encounterAkron Children'S Hospital09-30-2024 History of Present illness Narrative* Armando Orozco MD - 06/10/2024 7:20 PM EDT Images [...] Vega Granger - Neurology Dr. Quispe - [facility]/Cardiology. Dr. Tyler Aldrich - ENT Urology - Dr. Alma Lakhani Second opinion from Neuro Dr. Verónica Wallace at [facility]. Follows with [facility]. Follows with Dentist in [place], unable to recall name. Follows with Fadia Lewis in [place]. Medical/Family history review Reviewed and updated problem [...] She does not want to go to [place] and has found someone local through a [...] OF 2002 Lasik Surgery on both eyes ([facility]) PAST SURGICAL HISTORY OF 2010 broken neck PAST SURGICAL HISTORY OF 08/2015 Bare metal stent/ graft of heart x 1 PRQ CARDIAC STENT W/ANGIO 1 VSL 09/01/2015 Mid Lad TONSILLECTOMY PRIMARY/SECONDARY <AGE 11 TOTAL ABDOMINAL HYSTERECT W/WO RMVL TUBE OVARY 1994 [facility] IO LENS PROSTH W/O ECP [...] Past Histories independently gathered by the clinical technical support assistant and the remaining scribed note accurately describes [...] PM. Sanaz Smith MA documented in this encounterAkron Children'[facility]09-30-2024 NoteHNO ID: [id number] Author: ARMANDO OROZCO MD Service: ? Author [...] Vega Granger - Neurology Dr. Quispe - [facility]/Cardiology. Dr. Tyler Aldrich - ENT Urology - Dr. Alma Lakhani Second opinion from Neuro Dr. Verónica Wallace at [facility]. Follows with [facility]. Follows with Dentist in [place], unable to recall name. Follows with [facility] in [place]. Medical/Family history review Reviewed and updated problem [...] She does not want to go to [place] and has found someone local through a PCP office that deals with anxiety disorders. S (more content not included)...[facility]08-30-2024 Telephone encounter Note* Telephone Encounter - Shantal [...] Najera LPN May 10, 2024 12:57 PM [facility]08-30-[facility]24 Miscellaneous Notes* Telephone Encounter - Shantal [...] 10, 2024 12:57 PM documented in this encounterAkron Children'S Hospital07-29-2024 Telephone encounter Note * Telephone Encounter - Emelia Lynn APRN.CNP - 04/08/2024 8:11 AM EDT Never heard back from Mallorie, letter was completed for patient and will be faxed. Requesting additional time off due to ongoing health concerns. Will have evaluation by neurology at in June. Emelia Lynn APRN.CNP [facility]07-29-[facility]24 Miscellaneous Notes* Telephone Encounter - Emelia [...] AM EDT Patient phoned to report the case planner, Mallorie ([phone] ext: [phone]) never received the FMLA letter that was suppose to be sent to her on 03-20-24. Patient reports it was suppose to be e-faxed to Mallorie @ fax # [phone]. Patient asking Ayala Kapoor, to please send the FMLA letter (extending her leave past 03-25-24), and send patient a copy. Please phone patient with any questions and an update: [phone] documented in this encounterAkron Children'S Hospital07-25-2024 Telephone encounter Note * Telephone Encounter - Emelia Lynn APRN.CNP - 04/04/2024 10:26 AM EDT Attempted to call Mallorie back with no answer, LM to call back. Would like more information for what is needed in the letter. Patient has used her full amount of FMLA. Emelia Lynn APRN.CNP [facility]07-25-2024 Telephone encounter Note* Telephone Encounter - Kisha Martinez RN - 04/04/2024 9:47 AM EDT Patient phoned to report the case planner, Mallorie ([phone] ext: [phone]) never received the FMLA letter that was suppose to be sent to her on 03-20-24. Patient reports it was suppose to be e-faxed to Mallorie @ fax # [phone]. Patient asking Ayala Kapoor, to please send the FMLA letter (extending her leave past 03-25-24), and send patient a copy. Please phone patient with any questions and an update: [phone] [facility]07-12[facility] Telephone encounter Note* Telephone Encounter - Kika Costa LPN - 03/22/2024 10:06 AM EDT Spoke with pt and information listed below given. Pt verbalizes understanding. Kika Costa LPN [facility]07-12-2024 Miscellaneous Notes* Telephone Encounter - Kika [...] any additional questions. Thank you. Emelia Lynn APRN.FREDY documented in this encounterAkron Children'S Hospital07-12-2024 Telephone encounter Note * Telephone Encounter - Tahira Perla MA - 03/22/2024 9:00 AM EDT See both phone encounters. Tahira Perla MA [facility]07-12-2024 Miscellaneous Notes* Telephone Encounter - Tahira [...] culture results. Thank you. Emelia Lynn APRN.CNP documented in this encounterAkron Children'S Hospital07-12-2024 Telephone encounter Note * Telephone Encounter - Tahira Perla MA - 03/22/2024 8:59 AM EDT See both phone encounters. Tahira Perla MA [facility]-12[facility] Telephone encounter Note* Telephone Encounter - Emelia Lynn APRN.CNP - 03/22/2024 8:46 AM EDT Can you please call the patient and let her know that her urine culture was normal. No bacterial infection noted. I would recommend that she keep upcoming appointment with urology. Please let me know if she has any additional questions. Thank you. Emelia Lynn APRN.CNP [facility]07-11-[facility]24 Telephone encounter Note* Telephone Encounter - Tahira Perla MA - 03/21/2024 4:41 PM EDT Message left for pt to call back for results. Tahira Perla MA [facility]07-11-[facility]24 Telephone encounter Note* Telephone Encounter - [...] culture results. Thank you. Emelia Lynn APRN.CNP [facility]07-10-2024 Instructions* Patient Instructions* Emelia Lynn APRN.CNP - 03/20/2024 11:14 AM EDT Get labs completed Urine will be sent off for further testing Start Macrobid, take with food, stay well hydrated Keep scheduled appointment with Dr. Lakhani (urologist) Consult placed for Neuromuscular center at [facility] if you would like another opinion May consider pain management in the future to help with arthritis pain Follow up pending test results. documented in this encounterAkron Children'S Hospital07-10-2024 History of Present illness Narrative* Emelia [...] Disease. Diagnosed with dementia, was Following with [facility] neurology, however trying to get a second opinion. Has concerns for Parkinson's disease. Ongoing issues with gait, completing PT. 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 Memory has been stable, [...] OF 2002 Lasik Surgery on both eyes ([facility]) PAST SURGICAL HISTORY OF 2010 broken neck [...] APRN.FREDY This note was partially generated using Cort[employer] voice recognition system. Note was reviewed for accuracy. There may be minor misspellings or grammar miscues with [employer] voice recognition. documented in this encounterAkron Children'S Hospital07-10-2024 NoteHNO ID: [id number] Author: EMELIA LYNN APRN.CNP Service: ? Author [...] Disease. Diagnosed with dementia, was Following with [facility] neurology, however trying to get a second opinion. Has concerns for Parkinson's disease. Ongoing issues with gait, completing PT. 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) PAST SURGICAL HISTORY OF 2010 broken neck [...] by mouth once daily (more content not included)...[facility] 02-28-2024 Telephone encounter Note* Telephone Encounter - Emelia Lynn APRN.STEAM PRESSER - 02/28/2024 4:29 PM EDT Noted Emelia Lynn APRN.CNP [facility]06-19-2024 Miscellaneous Notes* Telephone Encounter - Emelia Lynn APRN.CNP - 02/28/2024 4:29 PM EDT Noted Emelia Lynn APRN.CNP * Telephone Encounter - Kika Costa LPN - 02/27/2024 3:15 PM EDT Pt called and wanted you to know she is working on finding a Neurologist for a 2nd opinion. She checked with [facility] and the doctor there is booking out to December 2024. She will get back to you with a name so we can send referral and supporting information. Kika Costa LPN documented in this encounterAkron Children'S Hospital06-18-2024 Telephone encounter Note * Telephone Encounter - Kika Costa LPN - 02/27/2024 3:15 PM EDT Pt called and wanted you to know she is working on finding a Neurologist for a 2nd opinion. She checked with [facility] and the doctor there is booking out to December 2024. She will get back to you with a name so we can send referral and supporting information. Kika Costa LPN [facility]06-10-[facility] Telephone encounter Note* Telephone Encounter - Emelia Lynn APRN.CNP - 02/19/2024 12:38 PM EDT The following approved medication requests have been transmitted electronically. Requested Prescriptions Signed Prescriptions Disp Refills nitrofurantoin monohydrate and macrocrystal (MACROBID) 100 mg capsule 14 capsule 0 Sig: Take 1 capsule by mouth two times a day with meals for 7 days. Authorizing Provider: EMELIA LYNN APRN.CNP [facility]06-10-[facility]24 Miscellaneous Notes* Telephone Encounter - Emelia [...] sent in a UTI antibiotic to James Leonarda Sena LPN * Telephone Encounter - Emelia [...] symptoms are doing? Thank you. Emelia Lynn APRN.FREDY documented in this encounterAkron Children'S Hospital06-10-2024 Telephone encounter Note * Telephone Encounter - Kim Sena LPN - 02/19/2024 12:33 PM EDT Patient notified of recommendations, verbalizes understanding of instructions. Pt. would like for providers to sent in a UTI antibiotic to James Brower Kim Sena LPN [facility]06-10-[facility] Telephone encounter Note* Telephone Encounter - [...] cover for UTI. Thank you. Emelia Lynn APRN.FREDY [facility]06-07-2024 Telephone encounter Note* Telephone Encounter - Kim Sena LPN - 02/16/2024 1:28 PM EDT Patient notified of results, verbalizes understanding of instructions. Pt stated Sx have not changed. Kim Sena LPN [facility]06-07-2024 Telephone encounter Note* Telephone Encounter - Emelia Lynn APRN.CNP - 02/16/2024 12:01 PM EDT Can you please call the patient and let her know that I reviewed her urine culture results. Urine culture came back negative for any infection. Can you please ask how her symptoms are doing? Thank you. Emelia Lynn APRN.FREDY [facility]06-05-2024 Instructions* Patient Instructions* Emelia Lynn APRN.CNP - 02/14/2024 1:29 PM EDT Urine will be sent out for further testing. Stay well hydrated Contact the office with any worsening urinary symptoms. Monitor blood pressure at home, goal 130/80 or less. Keep scheduled appointments with Neurology Follow up pending test results documented in this encounterAkron Children'S Hospital06-05-2024 History of Present illness Narrative* Emelia [...] - Both Eyes 11/17/2014 C2 cervical fracture ([facility]) CAD (coronary artery disease) 2014 heart stent x 1/ bare metal CAD (coronary artery disease) Chronic periscapular pain on left side 07/19/2016 Closed fracture of cervical spine ([facility]) 11/03/2010 DEPRESSIVE DISORDER NEC 01/23/2007 Depressive disorder, [...] OF 2002 Lasik Surgery on both eyes ([facility]) PAST SURGICAL HISTORY OF 2010 broken neck [...] discussed and patient voices understanding. Emelia Lynn APRN.CNP This note was partially generated using Cort[employer] voice recognition system. Note was reviewed for accuracy. There may be minor misspellings or grammar miscues with [employer] voice recognition. documented in this encounterAkron Children'S Hospital06-05-2024 NoteHNO ID: [id number] Author: EMELIA LYNN APRN.CNP Service: ? Author [...] pain, palpitations, dizziness, or edema. Follows with [facility]. Added on amlodipine 2.5 mg [...] - Both Eyes 11/17/2014 C2 cervical fracture ([facility]) CAD (coronary artery disease) 2014 heart stent x 1/ bare metal CAD (coronary artery disease) Chronic periscapular pain on left side 07/19/2016 Closed fracture of cervical spine ([facility]) 11/03/2010 DEPRESSIVE DISORDER NEC 01/23/2007 Depressive disorder, [...] OF 2002 Lasik Surgery on both eyes ([facility]) PAST SURGICAL HISTORY OF 2010 broken neck [...] mouth once daily. tamsulosi (more content not included)...[facility]06-03-2024 Telephone encounter Note* Telephone Encounter - Sue Costa LPN - 02/12/2024 2:47 PM EDT Faxed signed Rx Physical Therapy to [facility] 02/12/2024. Sue Costa LPN. [facility]06-03-[facility]24 Miscellaneous Notes* Telephone Encounter - Sue Costa LPN - 02/12/2024 2:47 PM EDT Faxed signed Rx Physical Therapy to [facility] 02/12/2024. Sue Costa LPN. documented in this encounterAkron Children'S Hospital05-30-2024 Telephone encounter Note * Telephone Encounter - Shannon Elkins RN - 02/08/2024 4:21 PM EDT Cynthia from [place] calls and states that she was out of town when provider had called. Cynthia reports that she will be in her office tomorrow (02/09/2024). Shannon Elkins RN [facility]05-30-2024 Miscellaneous Notes* Telephone Encounter - Shannon Elkins RN - 02/08/2024 4:21 PM EDT Cynthia from [facility] calls and states that she was out of town when provider had called. Cynthia reports that she will be in her office tomorrow (02/09/2024). Shannon Elkins, RN * Telephone Encounter - Emelia Lynn APRN.CNP - 01/29/2024 10:34 AM EDT Returned call, no answer. LM to call back. Emelia Lynn APRN.CNP * Telephone Encounter - Amanda Aguirre LPN - 01/29/2024 10:11 AM EDT Last Appt: 01/11/24 - Hospital f/u. Cynthia a nurse case management associate with [facility], calls to report that she will be reaching out to pt for the second time after hospitalization. Cynthia is asking if there is anything provider has concerns about with pt that Cynthia could help pt with. If so, call Cynthia @ [phone] ext: [phone]. Amanda Aguirre LPN documented in this encounterAkron Children'S Hospital05-20-2024 Telephone encounter Note * Telephone Encounter - Emelia Lynn APRN.CNP - 01/29/2024 10:34 AM EDT Returned call, no answer. LM to call back. Emelia Lynn APRN.CNP [facility]05-20-[facility] Telephone encounter Note* Telephone Encounter - Amanda Aguirre LPN - 01/29/2024 10:11 AM EDT Last Appt: 01/11/24 - Hospital f/u. Cynthia a nurse case management associate with [facility], calls to report that she will be reaching out to pt for the second time after hospitalization. Cynthia is asking if there is anything provider has concerns about with pt that Cynthia could help pt with. If so, call Cynthia @ [phone] ext: [phone]. Amanda Aguirre LPN [facility]05-13-2024 Telephone encounter Note* Telephone Encounter - Tahira Perla MA - 01/22/2024 1:56 PM EDT No forms received as of now. Will close encounter till FMLA forms are received if still needed to be completed for pt. Tahira Perla MA January 22, 2024 1:56 PM [facility] Miscellaneous Notes* Telephone Encounter - Tahira Perla MA - 01/22/2024 1:56 PM EDT No forms received as of now. Will close encounter till FMLA forms are received if still needed to be completed for pt. Tahira Perla MA January 22, 2024 1:56 PM * Telephone Encounter - Tahira Perla MA - 01/19/2024 4:07 PM EDT Pt notified via [employer] that office still has not received any FMLA forms on her. Tahira Perla MA January 19, 2024 4:07 PM * Telephone Encounter - Tahira Perla MA - 01/19/2024 11:57 AM EDT Spoke with pt, she was driving home from therapy. Advised we still have not received her paperwork.I told pt I would send the fax number to her via [employer], so when she speaks with HR she [...] forms on the fax machine. Our fax# [phone]. Thank you. Emelia Lynn APRN.FREDY * Telephone Encounter - Shantal Najera LPN - 01/18/2024 3:14 PM EDT Patient calling she faxed FMLA forms to Emelia fax number yesterday. Patient said she is off work until March 24 she thinks. Patient said she has been in and out of the hospital three times. If any questions call her please. documented in this encounterAkron Children'S Hospital05-10-2024 Telephone encounter Note * Telephone Encounter - Tahira Perla MA - 01/19/2024 4:07 PM EDT Pt notified via [employer] that office still has not received any FMLA forms on her. Tahira Perla MA January 19, 2024 4:07 PM [facility] Telephone encounter Note* Telephone Encounter - Tahira Perla MA - 01/19/2024 3:56 PM EDT Our office still has not received any FMLA paperwork for pt. Pt notified of this via [employer]. [facility]05-10[facility] Miscellaneous Notes* Telephone Encounter - Thaira Perla MA - 01/19/2024 3:56 PM EDT Our office still has not received any FMLA paperwork for pt. Pt notified of this via [employer]. documented in this encounterAkron Children'S Hospital05-10-2024 Telephone encounter Note * Telephone Encounter - Tahira Perla MA - 01/19/2024 11:57 AM EDT Spoke with pt, she was driving home from therapy. Advised we still have not received her paperwork.I told pt I would send the fax number to her via [employer], so when she speaks with HR she can verifythe correct fax number. Advised pt would let her know if paperwork not received by the end of the day. Tahira Perla MA [facility]05-10-2024 Telephone encounter Note* Telephone Encounter - Emelia Lynn APRN.CNP - 01/19/2024 11:06 AM EDT Can you please call the patient back and let her know that we received no FMLA forms on the fax machine. Our fax# [phone]. Thank you. Emelia Lynn APRN.FREDY [facility]05-09-2024 Telephone encounter Note* Telephone Encounter - Shantal Najera LPN - 01/18/2024 3:14 PM EDT Patient calling she faxed FMLA forms to Emelia [employer]cher[employer] mis[employer] yesterday. Patient said she is off work until March 24 she thinks. Patient said she has been in and out of the hospital three times. If any questions call her please. [facility] Telephone encounter Note* Telephone Encounter - Tahira Perla MA - 01/15/2024 6:06 PM EDT Referral, OV note, previous EGD/Colonoscopies, copy of insurance card, demo, faxed to Dr. Healy's office. Will have their office call pt to schedule. Tahira Perla MA [facility]05-06-2024 Miscellaneous Notes* Telephone Encounter - Tahira [...] [place]. When she called Dr. Aldrich's office they told her she needed to see Dr. Healy for that. Please place referral. Taihra Perla MA * Telephone Encounter - Armando [...] strained- has a hard time projecting voice. [facility], wants patient tohave an endoscopy done, to make sure there are no polyps, before they start voice therapy. Asking pcp to send endoscopy referral to Dr. Healy, ENT, in [place]. documented in this encounterAkron Children'S Hospital05-06-2024 Telephone encounter Note * Telephone Encounter - Armando Orozco MD - 01/15/2024 5:51 PM EDT OK for GI referral Armando Orozco MD [facility]-06-[facility] Telephone encounter Note* Telephone Encounter - Tahira Perla MA - 01/15/2024 2:25 PM EDT Spoke with pt, states she was told she needs to get endoscopy to check for nodules or polyps to seeif that would be affecting her vocal cords. She was told to [place]. When she called Dr. Aldrich's office they told her she needed to see Dr. Healy for that. Please place referral. Tahira Perla MA [facility]05-06-20[facility] Telephone encounter Note* Telephone Encounter - Armando Orozco MD - 01/15/2024 2:19 PM EDT Ok to refer to ENT I do not think Dr Healy is ENT, as he does GI procedures. Are they sure they have the right name? Armando Orozco MD [facility]-06-[facility] Telephone encounter Note* Telephone Encounter - Kisha Martinez RN - 01/15/2024 11:19 AM EDT Patient phoned asking pcp for a referral for endoscopy. Reports her voice is strained- has a hard time projecting voice. [facility], wants patient tohave an endoscopy done, to make sure there are no polyps, before they start voice therapy. Asking pcp to send endoscopy referral to Dr. Healy, ENT, in [place]. [facility] History of Present illness Narrative* Vega [...] on MRI brain. Likely small vessel. 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 On ASA daily. Not [...] and CRP were unremarkable. Did not get racing car driver's evaluation. Pt statesher is doing the driving. MRI brain, C spine, T spine and L spine in past month all not suggestive of acute process per reports from [facility] nor do they show an etiology symptoms including no evidence of central canal stenosis. Patient just released from hospital - [facility]. Diagnosed with migraines. CT brain was unremarkable [...] who presented to the emergency department at [facility] on 01/04/2024 with headache that has been [...] She was given resources by [facility] management [facility]. She was discharged home in [...] scheduled for next week. MOCA Immediate recall: / Number repeat: 10/13 Sentence repeat: 10/13 Serial 7s: 100-93-? 09/13 Orientation: January 12, 2024, [place] bliss 02/14 Abstract: 2/2 Delayed recall: 10/16 Namin3 (Hippo for Rhino) Cube copy: 0 Clock drawin/3 (Incorrect hand placement - puts dots on the clock) Patient reports new medications started. States her is upset about it - note he is not present. Patient provides list: Marcelina. She cannot use her phone to tell [...] hospital stroke workup after receiving TNK per [facility] notes. There was no stroke. As [...] examination. 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 Question [...] which included preparing to see the patient, [id number] patient care, completing clinical documentation, obtaining and/or reviewing separately obtained history, performing a medically appropriate examination, counseling and educating the pa tient/family/caregiver, and communicating results to the patient/family/caregiver. documented in this encounterAkron Children'S Hospital05-02-2024 Instructions* Patient Instructions* Emelia Lynn APRN.CNP - 01/11/2024 8:44 AM EDT Start Paxil 10 mg daily ( Mood/anxiety) Keep scheduled appointment with Neurology tomorrow Recommend establishing care with counselor Continue to take all medication as prescribed. Continue with supportive care, stay well hydrated. Follow up in 1 month, may be telephone visit if needed. documented in this encounterAkron Children'S Hospital05-02-2024 History of Present illness Narrative* Emelia Lynn APRN.CNP - 01/11/2024 8:20 AM EDT This is a 78 year old female who presents today with: Patient presents with: Follow Up: [facility] ER follow up HISTORY OF PRESENT ILLNESS: Bharti Akbar is a 78 year old female. Patient presents with: Follow Up: [facility] ER follow up Transitional Care Management Progress Note The patients TCM visit was performed within the 7 days of discharge. Patient's Date of discharge: 01/06/2024 Date of initial coordinator contact after discharge: 01/09/2024 Discharge diagnosis: URI, aphasia, headache Medication review completed Yes HOSPITAL/ER FOLLOW UP: Reason for visit: Headache Which facility: [facility] Date of visit: 01/04/2024-01/06/2024 Diagnosis: Complicated migraine, [...] be having Neurological testing January 16 at [facility] main campus, refers that she does not want to [...] 06/19/2015 normal colon CORRJ HLX VLGS [facility] W/DOUBLE OSTEOTOMY 2004 RIGHT FOOT DILATION & CURETTAGE DX&/THER NONOBSTETRIC 1979 AFTER MISCARRAGE EGD 08/26/2020 EGD TRANSORAL BIOPSY SINGLE/MULTIPLE 06/19/2015 gastritis ESOPHAGOGASTRODUODENOSCOPY TRANSORAL DIAGNOSTIC 08/03/2005 EGD PAST SURGICAL HISTORY OF 1975 RECTAL WALL REPAIR PAST SURGICAL HISTORY OF 2002 Lasik Surgery on both eyes ([facility]) PAST SURGICAL HISTORY OF 2010 broken neck [...] APRN.FREDY This note was partially generated using [employer] voice recognition system. Note was reviewed for accuracy. There may be minor misspellings or grammar miscues with [employer] voice recognition. 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 Granger in Neuro on 01/12/24. Follows with [facility] Initial contact with patient post discharge, spoke to patient on 01/09/24. Patient identified by name and . TRANSITION CARE MANAGEMENT INITIAL OUTREACH DOCUMENTATION: 01/09/2024 Date of Outreach: Outreach Attempt 1: Contact Made Date of Discharge 01/06/2024 SUMMARY: -Pt discharged from [facility] on 01/06/24. -Admitted for: URI, Aphasia, Headache [...] for provider to review documented in this encounterAkron [facility]04-29-[facility]24 Telephone encounter Note * Telephone Encounter [...] on MRI brain. Likely small vessel. 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 On ASA daily. Not [...] - C-REACTIVE PROTEIN (CRP) Vega Granger MD [facility]04-[facility] Miscellaneous Notes* Telephone Encounter - Breanne [...] on MRI brain. Likely small vessel. 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 On ASA daily. Not [...] (CRP) Vega Granger MD documented in this encounterAkron [facility]04-27-[facility]24 Discharge summary Author Tahira Meadows [facility] January 06, 2024 2:17pm Note Date/Time January 06, 2024 2:0 7pm [facility] Medical Records Department [address] [place] [address] Discharge Summary 01/06/24 1406 MR#: [id number] Acct: [id number] Name: BHARTI AKBAR Rep #:[id number] : 1945 78 From: Tahira Meadows DO PCP: Dr. Armando Orozco MD Status:AD M IN Location: ICU [place] [address] Providers Date of Admission: 01/04/24 Date of Discharge: 01/06/24 Primary Care Physician: Dr. Armando Orozco MD Consultations 01/04/24 17:31 Consult: [employer] / Pulmonary Medicine Routine Consulting Provider: [facility] Reason for Consult: stroke for thrombolytic administration EMERGENT Consult: No MD Notified: Yes Date Notified: 01/05/24 Time Notified: 02:19 Method of Notification: Text Comments:: Consult may be done in ED or ICU 01/06/24 09:53 Consult: Tele-Neurology Routine Consulting Provider: [facility] Reason for Consult: stroke s/p TNK EMERGENT Consult: No Notified: Yes Date Notified: 01/06/24 Time Notified: [...] who presented to the emergency department at [facility] on 01/04/2024 with headache that has been [...] Federico Mcqueen MD at 21:21 EDT , Brain CT 01/06/24 11:48 IMPRESSION: Chronic [...] Self Care Charges/Coding Visit Charges Inpatient E&M: 59956 Disch Hosp >30min 01/06/24 1417 <Electronically signed by Tahira Meadows DO> Cosigner Signature (if applicable): CC: Dr. Tahira Meadows DO; Dr. Armando Orozco MD; Dr. Vega Granger MD~ Signed [facility] Work Phone: 1(503) 806-980904-27-2024 Progress note Author Letha Meadows [facility] January 06, 2024 11:14am Note Date/Time January 06, 2024 11: 13am [facility] Medical Records Department [address] [place] [address] Progress Note - Neurology 01/06/24 1104 MR#: [id number] Acct: [id number] Name: BHARTI AKBAR Rep #:[id number] : 1945 78 From: Letha Meadows MD PCP: Dr. Armando Orozco MD Status:AD M [facility] Objective Data Vital Signs: Vital [...] dysmetria. Gait: deferred Subject: Neurology Subjective BHARTI HUA AKBAR is a 78 year old RH F with history of Paroxysmal Afib (taken off blood thinners in past- patient uncertain but thinks due to GI bleed), Hypothyroidism, CAD, HTN, GERD, complicated migraines, and prior GI bleed due tosmall bowel AVMs who presented to [facility] 01/04/24 due to 2 day history [...] notes dysarthria and some word finding difficulties. CORDOBA currently is 4/10. She feels whipped She [...] due tosmall bowel AVMs who presented to [facility] 01/04/24 due to 2 day history of severe migraine headaches. In ER she was given CORDOBA cocktail. In ER she was notedto develop [...] Cosigner Signature (if applicable): CC: ~ Signed [facility] Work Phone: 1(724) 871-740504-26-2024 Progress note Author Tahira Meadows [facility] January 05, 2024 12:18pm Note Date/Time January 05, 2024 7:1 3am [facility] Medical Records Department [address] [place] [address] Progress Note - Hospitalist 01/05/24 0705 MR#: [id number] Acct: [id number] Name: BHARTI AKBAR Rep #:[id number] : 1945 78 From: Tahira Meadows DO PCP: Dr. Armando Orozco MD Status:AD M IN Location: ICU ICU08-1 Reason for Visit Reason for Visit: Headache/expressive aphasia Subjective Subjective Mrs. Akbar is a 78-year-old white female who presented to the emergency department at [facility] on 01/04/2024 with headache that has been [...] % (Auto) 67.1, Lymph % (Auto) 25.3, [place]% (Auto) 6.4, Eos % (Auto) 0.6, Baso [...] Clear Calc 47.17, Est GFR (MDRD) Af Sqig375, Est GFR (MDRD) Non-Af 90, BUN/Creatinine Ratio 16.4, Glucose 97, Calcium 8.1 L, Phosphorus 2.9, Magnesium 1.9 Radiography Diagnostic Testing: Radiology Impression Brain CT 01/04/24 16:53 IMPRESSION: No acute intracranial pathology. Age-related changes. Electronically Signed: Ludin Ware DO at 17:11 EDT Reading Location ID and State: [facility] / [place] Tel [phone], Service support , ADDENDUM: 01/04/24 1720 IMPRESSION: [...] CAD/HPL/HTN/carotid artery disease/diastolic dysfunction -Previous PCI in 2014 -Home aspirin is on hold -Continue home [...] -Full code Charges/Coding Visit Charges Inpatient E&M: 25461 Subs Hosp L2 01/05/24 1218 <Electronically signed by Tahira Meadows DO> Cosigner Signature (if applicable): CC: ~ Signed [facility] Work Phone: 1(630) 410-136804-26-2024 History and physical note Author Gentry Thomson [facility] January 05, 2024 4:14am Note Date/Time January 04, 2024 8:2 8pm [facility] Medical Records Department [address] [place] [address] H&P Exam - Hospitalist 01/04/242027 MR#: [id number] Acct: [id number] Name: BHARTI AKBAR Rep #:[id number] : 1945 78 From: Gentry loredo DO PCP: Dr. Armando Orozco MD Status:AD M IN Location: ICU ICU08-1 HPI - General General Date of Admission: 01/04/24 Date of Service: 01/04/24 Chief Complaint: Headache, concern for expressive aphasia HPI Narrative BHARTI AKBAR, is a 78 F who presented to [facility] ED on 01/04/2024 with worsening headache and [...] status. No other acute concernsat this time. [facility] Medical History (Updated 01/05/24 @ 04:[address] 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% (Auto) 6.4, Eos % (Auto) 0.6, Baso [...] 17:11 EDT Reading Location ID and State: [facility] / [place] Tel [phone], Service support , ADDENDUM: 01/04/24 1720 IMPRESSION: [...] is a 78-year-old female who presented to [facility] ED on 01/04/2024 with worsening headache and concern for expressive aphasia. 1. Headache with concern for expressive aphasia, concern for CVA s/p TNK administration ? Admit under inpatient status to ICU. Teleneurology following. [employer] consulted. Orders placed per CVA with TNK [...] for gait stability/truncal ataxia ? Hospitalized at [facility] from 11/12-11/15/2023. See discharge summary from 11/14 for further details. Fairly extensive labs and imaging workup completed at that time, showed primarily chronic changes, no acute pathology. Plan was to follow-up with Dr. Granger with Neurology in [place] post-hospitalization. Per patient, she had not been [...] 55 minutes. Charges/Coding Visit Charges Inpatient E&M: 00591 Init Hosp L2 01/05/24 0413 <Electronically signed by Gentry Thomson DO> Cosigner Signature (if applicable): CC: Dr. Gentry Thomson DO; Dr. Armando Orozco MD~ Signed [facility] Work Phone: 1(453) 390-828104-26-2024 Discharge summary Author Izabella Mendoza [facility] January 04, 2024 11:07pm Note Date/Time January 04, 2024 4:2 2pm [facility] Medical Records Department [address] [place] [address] Emergency Department Summary 01/04/24 MR#: [id number] Acct: [id number] Name: BHARTI AKBAR Rep #:[id number] : [...] URI's symptoms. No fever has been noted. 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 % (Auto) 6.4 Eos % (Auto) 0.6 [...] Ludin Ware DO at 17:49 EDT , EKG Initial EKG: Attestation: I personally [...] aphasiabut symptoms were somewhat improving. Neurologist from [facility] to evaluate the patient over the [...] 30-74 minutes (40 minutes), Discussing w/Patient &/or Family/Product Development Manager, Discussing w/Consultants, ArrangingAdmission or Transfer and Performing Direct Patient Care at Bedside Discharge Plan Dx/Rx/DC Orders Clinical Impression: Migraine, CVA (cerebral vascular accident) Disposition Disposition: Acute Care Hospital [facility] Discharge Date/Time: 01/04/24 21:54 What to do if you have Problems For any increased pain, shortness of breath, bleeding, nausea or vomiting, chestpain, or any unexpected problems, contact your Primary Care Provider. Call [facility] ([phone]) or report to the closest Emergency Room. Call 911 if necessary. 01/04/247 <Electronically signed by Izabella Mendoza MD> Cosigner Signature (if applicable): CC: Dr. Armando Orozco MD ~ Signed [facility] Work Phone: 1(952) 962-803504-18-2024 Miscellaneous Notes* Telephone Encounter - Sarai Harp, RN - 12/28/2023 2:20 PM EDT Spoke [...] you Emelia Lynn APRN.FREDY documented in this encounterAkron [facility]04-11-2024 Instructions* Patient Instructions* Emelia Lynn APRN.CNP [...] up pending test results. documented in this encounterAkron Children'S Hospital04-11-2024 History of Present illness Narrative* Emelia [...] visit: Back Pain and headache Which facility: [facility] ER Date of visit: 11/13/2023 Diagnosis: Ataxia, [...] disease and bony hypertrophy most severe at L4-F9ztavs on the right side. Brain MRI showed [...] lean to the other side. 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 Following with Dr. Granger, Neurology, [...] and she was taking amlodipine. Follows with [facility]. Has been doing aquatherapy about [...] DIAGNOSTIC 08/03/2005 EGD PAST SURGICAL HISTORY OF 1976 RECTAL WALL REPAIR PAST SURGICAL HISTORY OF 2002 Lasik Surgery on both eyes ([place]) PAST SURGICAL HISTORY OF 2010 broken neck [...] discussed and patient voices understanding. Emelia Lynn APRN.STEAM PRESSER This note was partially generated using [employer] voice recognition system. Note was reviewed for accuracy. There may be minor misspellings or grammar miscues with [employer] voice recognition. I spent a total of 60 minutes on the date of the service which included preparing to see the patient, buar-[id number] patient care, completing clinical documentation, obtaining and/or reviewing separately obtained history, performing a medically appropriate examination, counseling and educating the pat ient/family/caregiver, ordering medications, tests, or procedures, and independently interpreting results (not separately reported). documented in this encounterAkron Children'S Hospital04-09-2024 Miscellaneous Notes* Telephone Encounter - Sue Costa LPN - 12/19/2023 5:52 PM EDT Faxed RX PT to [facility] [phone]. Sue Costa LPN documented in this encounterAkron Children'[facility] Hospital03-15-2024 Miscellaneous Notes* Telephone Encounter - Breann [...] order for Aquatic Therapy be faxed to [facility] in [place]. . Sarai Harp RN documented in this encounterAkron Children'S Hospital03-11-2024 History of Present illness Narrative* Armando [...] looking for a location closer to home, january [facility] in [place].. She wants to do water therapy, so is going to look for a place to do this closer home. She has been being treated for kidney stone. Has had BP running higher around 180-170/76. She does take BP medications. She is scheduled with [facility], Cardio. Having chronic headaches, sinus [...] (primary diagnosis) PT Establish with Neuro at [facility] 2. Fibromyalgia - ICD9: 729.1, ICD10: M79.7 3. 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- ICD9: 414.01, ICD10: [...] Past Histories independently gathered by the clinical technical support assistant and the remaining scribed note accurately describes my personal service to the patient. Armando Orozco MD The documentation for this note was completed by Tahira Perla MA acting as scribe for Armando Orozco MD. November 20, 2023 1:50 PM. 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 -Admitted for: Ataxia Falls Balance [...] for provider to review documented in this encounterAkron Children'S Hospital03-06-2024 Consult note Author Stan Abad [facility] November 15, 2023 5:05pm Note Date/Time November 15, 2023 4:47 pm [facility] Medical Records Department [address] [place] [address] Consultation - Neurology 11/15/23 1639 MR#: [id number] Acct: [id number] Name: BHARTI AKBAR Rep #:[id number] : 1945 78 From: Stan Gar MD PCP: Dr. Armando Orozco MD Status:AD M IN Location: [place] [address] Assessment and Plan: Neuro Assessment/Plan BHARTI AKBAR [...] she recently saw neurologist Dr. [facility] who prescribed donepezil and recommendedoutpatient MRI L spien fo rher gait, which she was unable to schedule and [...] at home. Deliberate low salt, low fatdiet. [facility] Medical History Abdominal bloating Angina pectoris Aortic insufficiency Aortic valve disease Atherosclerotic heart disease of [place] coronary artery without angina pectoris Atrial fibrillation [...] due to chronic blood loss Ischemic colitis nursing home use of drug Lung nodule, multiple Migraines [...] AdvReac Mild Vomiting Verified 11/13/23 13:02 [From Flakito López] hydrochlorothiazide AdvReac Mild intolerance Verified 11/13/23 13:02 [...] 4 Status: Complete hours and PRN Freq: [id number] Protocol: Activity Type Activity Date Activity User [...] or with change in RN caregiver Freq: [id number] Protocol: Activity Type Activity Date Activity User [...] independently. CN II-XII intact, 5/5 strength SA/EE/EF, lumber tallier; 5/5 ankle DF/PF. Left sided hip flexion [...] 21:36 EST Reading Location ID and State: [address] [place] [address] Tel , Service support , Brain MRI 11/14/23 17:30 IMPRESSION: No acute disease Electronically Signed: Brian Ng MD at 21:52 EST Reading Location ID and State: [facility] / [place] Tel , Service support , Cervical Spine MRI 11/14/23 17:30 IMPRESSION: Neural foraminal narrowing on the right at C4-5 and C5-6 due to uncinate spondylosis Electronically Signed: Brian Ng MD at 21:41 EST , Active Medications Active Medications Active Medications: [...] mls @ 15 mls/hr 11/13/23 21:15 IV .[id number] PRN Additional IVPB Infusion Sodium Chloride 250 mls @ 15 mls/hr 11/13/23 21:15 IV .[id number] PRN Saline Flush Thiamine HCl 250 mg/ [...] Angie Cook DO; Kelby Cordoba MD~ Signed [facility] Work Phone: 1(870) 320-935303-06-2024 Discharge summary Author Jose Ortega [facility] November 15, 2023 3:23pm Note Date/Time November 15, 2023 3:21 pm [facility] Medical Records Department [address] [place] [address] Instructions for Home/Discharge Instructions 11/15/23 1520 MR#: [id number] Acct: [id number] Name: BHARTI AKBAR Rep #:[id number] : [...] Cook DO; Kelby Cordoba MD ~ Signed [facility] Work Phone: 1(493) 697-466803-06-2024 Progress note Author Jose Ortega [facility] November 15, 2023 2:07pm Note Date/Time November 15, 2023 2:07 pm [facility] Medical Records Department [address] [place] [address] Progress Note - Hospitalist 11/15/23 1401 MR#: [id number] Acct: [id number] Name: BHARTI AKBAR Rep #:[id number] : 1945 78 From: Jose Salazar PCP: Dr. Armando Orozco MD Status:AD M IN Location: [place] [address] Reason for Visit Reason for Visit: Diagnoses [...] 21:36 EST Reading Location ID and State: [facility] / [place] Tel , Service support , Brain MRI 11/14/23 17:30 IMPRESSION: No acute disease Electronically Signed: Brian Ng MD at 21:52 EST Reading Location ID and State: [facility] / [place] Tel , Service support , Cervical Spine [...] which is ordered. 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 market manager to further evaluate for discharge planning. [...] EST , Charges/Coding Visit Charges Inpatient E&M: 37215 Subs Hosp L2 11/15/23 1407 <Electronically signed by Jose Ortega MD> Cosigner Signature (if applicable): CC: ~ Signed [facility] Work Phone: 1(572) 272-205703-06-2024 Progress note Author Jose Ortega [facility] November 15, 2023 8:31am Note Date/Time November 15, 2023 8:31 am [facility] Medical Records Department [address] [place] [address] Progress Note - Hospitalist 11/15/23 0825 MR#: [id number] Acct: [id number] Name: BHARTI AKBAR Rep #:[id number] : 1945 78 From: Jose Salazar PCP: Dr. Armando Orozco MD Status:AD M IN Location: [place] [address]- Reason for Visit Reason for Visit: Diagnoses [...] 21:52 EST Reading Location ID and State: [facility] / [place] Tel , Service support , Cervical Spine [...] 21:41 EST Reading Location ID and State: [address] [place] [address] Tel , Service support , Charges/Coding Visit Charges Inpatient E&M: 06518 Subs Hosp L2 11/15/23 0831 <Electronically signed by Jose Ortega MD> Cosigner Signature (if applicable): CC: ~ Signed [facility] Work Phone: 1(642) 912-924903-05-2024 Progress note Author Jose Ortega [facility] November 14, 2023 2:47pm Note Date/Time November 14, 2023 7:33 am [facility] Medical Records Department [address] [place] [address] Progress Note - Hospitalist 11/14/23 0732 MR#: [id number] Acct: [id number] Name: BHARTI AKBAR Rep #:[id number] : 1945 78 From: Jose Salazar PCP: Dr. Armando Orozco MD Status:AD M IN Location: [place] [address] 1 Reason for Visit Reason for Visit: [...] % (Auto) 65.7, Lymph % (Auto) 23.1, [place] % (Auto) 8.9, Eos % (Auto) 1.6, [...] % (Auto) 60.9, Lymph % (Auto) 24.6, [place]% (Auto) 10.8 H, Eos % (Auto) 3.0, [...] 40 minutes. Charges/Coding Visit Charges Inpatient E&M: 00194 Subs Hosp L3 11/14/23 1447 <Electronically signed by Jose Ortega MD> Cosigner Signature (if applicable): CC: ~ Signed [facility] Work Phone: 1(329) 477-372003-05-2024 Consult note Author Raysa Hutton [facility] November 14, 2023 1:42pm Note Date/Time November 14, 2023 1:23 pm [facility] Medical Records Department [address] [place] [address] Consultation - Neurology 11/14/23 1322 MR#: [id number] Acct: [id number] Name: BHARTI AKBAR Rep #:[id number] : 1945 78 From: Raysa Salazar PCP: Dr. Armando Orozco MD Status:AD M IN Location: [place] [address] Assessment and Plan: Neuro Assessment/Plan #gait instability [...] over L eye for past 3 months. 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 % (Auto) 8.9, Eos % (Auto) 1.6, [...] % (Auto) 60.9, Lymph % (Auto) 24.6, [place]% (Auto) 10.8 H, Eos % (Auto) 3.0, [...] Signed: Aris Soares MD at 16:44 EST Reading Location ID and State: [facility] / [place] Tel , Service support , Chest X-Ray 11/13/23 16:05 IMPRESSION: No [...] mls @ 15 mls/hr 11/13/23 21:15 IV .[id number] PRN Additional IVPB Infusion Sodium Chloride 250 mls @ 15 mls/hr 11/13/23 21:15 IV .[id number] PRN Saline Flush Iopamidol 0 ml 11/13/23 [...] Angie Cook DO; Kelby Cordoba MD~ Signed [facility] Work Phone: 1(882) 453-237603-04-2024 Discharge summary Author [facility] November 13, 2023 8:30pm Note Date/Time November 13, 2023 2:04 pm [facility] Medical Records Department [address] [place] [address] Emergency Department Summary 11/13/23 MR#: [id number] Acct: [id number] Name: BHARTI AKBAR Rep #:[id number] : 1945 78 From: Matthieu Suarez PCP: Dr. Armando Orozco MD Status:AD M IN Location: [address] History of Present Illness Chief Complaint: Back [facility] Medical History Abdominal bloating Angina pectoris Aortic insufficiency Aortic valve disease Atherosclerotic heart disease of [place] coronary artery without angina pectoris Atrial fibrillation [...] due to chronic blood loss Ischemic colitis nursing home use of drug Lung nodule, multiple Migraines [...] others: none Consults: Internal medicine (Dr. Meadows) MDM Narrative: Patient was hemodynamically stable, afebrile, nontoxic-appearing. [...] PCU observation This note was generated with Cort[employer] SA dictation software. It may contain incorrect words, [...] % (Auto) 65.7 Lymph % (Auto) 23.1 [place] % (Auto) 8.9 Eos % (Auto) 1.6 [...] Discharge Plan Disposition Disposition: Acute Care Hospital [facility] Discharge Date/Time: 11/13/23 20:10 What to do if you have Problems For any increased pain, shortness of breath, bleeding, nausea or vomiting, chest pain, or any unexpected problems, contact your Primary Care Provider. Call [facility] ([phone]) or report to the closest Emergency Room. Call 911 if necessary. 11/13/232029 <Electronically signed by Matthieu Gomez DO> Cosigner Signature (if applicable): CC: Dr. Armando Orozco MD ~ Signed [facility] Work Phone: 1(673) 825-516703-04-2024 History and physical note Author Tahira Meadows [facility] November 13, 2023 6:54pm Note Date/Time November 13, 2023 6:22 pm [facility] Medical Records Department [address] [place] [address] H&P Exam - Hospitalist 11/13/231814 MR#: [id number] Acct: [id number] Name: BHARTI AKBAR Rep #:[id number] : 1945 78 From: Tahira Meadows DO PCP: Dr. rAmando Orozco MD Status:RE G ER Location: ED HPI - General General Date of Admission: 11/13/23 Date of Service: 11/13/23 Chief Complaint: ataxia and back pain HPI Narrative BHARTI AKBAR, is a 78 F who presented initially to the emergency department forback pain and leg pain that has been ongoing. She has been seeing a [facility] at [facility], Dr. Granger, who has ordered a lumbar [...] Chest x-ray was unremarkable for any acutefindings. [facility] Medical History Abdominal bloating Angina pectoris Aortic insufficiency Aortic valve disease Atherosclerotic heart disease of [place] coronary artery without angina pectoris Atrial fibrillation [...] due to chronic blood loss Ischemic colitis nursing home use of drug Lung nodule, multiple Migraines [...] % (Auto) 65.7, Lymph % (Auto) 23.1, [place] % (Auto) 8.9, Eos % (Auto) 1.6, [...] Signed: Aris Soares MD at 16:44 EST Reading Location ID and State: [facility] / [place] Tel , Service support , Chest X-Ray 11/13/23 16:05 IMPRESSION: No [...] on admission Charges/Coding Visit Charges Inpatient E&M: 28391 Init Hosp L2 11/13/23 1850 <Electronically signed by Tahira Meadows DO> Cosigner Signature (if applicable): CC: Dr. Tahira Meadows DO; Dr. Armando Orozco MD~ Signed [facility] Work Phone: 1(470) 871-874802-20-2024 History of Present illness Narrative* Carlin Huffman PA-C - 10/31/2023 5:08 PM EST Images from the original note were not included. [facility] NEW PATIENT CLINIC NOTE [...] - Both Eyes 11/17/2014 C2 cervical fracture ([facility]) CAD (coronary artery disease) 2014 heart stent [...] OF 2002 Lasik Surgery on both eyes ([facility]) PAST SURGICAL HISTORY OF 2010 broken neck [...] and Family: Three times a week Attends [employer] Services: More than 4 times per year [...] passing it. > 3 mo. Appt w/ B. KEESHA Huffman MT, PA-C for new Rx Follow-up I spent a total of 30 minutes on the date of the service which included preparing to see the patient, face to face patient care, completing clinical documentation, obtaining and/or reviewing separately obtained history, performing a medically appropriate examination, counseling and educating the pat ient/family/caregiver, ordering medications, tests, or procedures, and care coordination. KEESHA Holland MT, TRUPTI documented in this encounterAkron Children[facility]02-20-2024 Miscellaneous Notes* Telephone Encounter - Rosalba [...] the lumbar spine approved with auth number [id number]. Approved untilthe end of October, may need [...] and Cnn denied . documented in this encounterAkron Children'S Hospital02-15-2024 Miscellaneous Notes* Telephone Encounter - Tahira Perla Ma - 10/26/2023 1:43 PM EST Pt notified. Transferred to [facility] to set up Urology consult. Tahira Perla Ma * Telephone Encounter - Emelia Lynn APRN.CNP - 10/26/2023 1:09 PM EST Can you please call the patient and let her know I reviewed her ultrasound of bladder/kidneys. Ultrasound shows a possible left kidney stone. This can cause pain. I would recommend a consult with urology. This has been placed. Please let me know if she has any questions. Thank you. Emelia Lynn APRN.STEAM PRESSER documented in this encounterAkron Children'S Hospital02-15-2024 History of Present illness Narrative* Donna [...] PATIENT PRESENTS WITH AN IMPLANTABLE OR ATTACHED MALL MANAGER: No RADIOLOGY DEPARTMENT: Ultrasound PERIPHERAL IV DATA: Not applicable SIGNED BY: Donna Lu RDMS October 26, 2023 11:57 AM documented in this encounterAkron Children'S Hospital02-07-2024 Miscellaneous Notes* Telephone Encounter - Wendy Salazar - 10/18/2023 5:17 PM EST Received an email from the provider for a abce-ea-cvtn request. Called Rosa [phone] and spoke with David. Call Reference: David 10/18/2023 Reason for the denial is because no clinical notes were attached to the case. Rosa ID# [id number] The case closed 10/13/2023 and to late to send in more clinical information. The only option is for the provider to call for a reconsideration [id number] to add clinical information by talking directly to the jefw-oy-qhbs director. The reconsideration [id number] must be completed before Oct 27, 2023. The below information is for a peer to peer and appeal for a service you have requested. Patient Information Patient Last Name [place] Patient First Name Bharti Date of 1945 Clinical Clearance / Financial Clearance Status Pending Clinical Clearance Notifications are supported by our kimberely policy and used when an immediate payer [...] for you at this time. We used [facility] Medical Benefits Management Clinical Guideline titled Imaging of the Spine to make this decision. You may view this guideline at [email or web address]. Date of Service 11/01/2023 Is Peer to Peer Available? (Instructions below) Yes Peer to Peer Deadline Must be completed by 10/26/2023 Appeal Deadline (Instructions below) 180 days from the denial date on: 10/13/2023 Insurance Case Information Insurance Name ROSA Patient's Insurance Case# [id number] Ordering Provider MAYA KATZ Approved Services N/A Denied Services [id number] LUMBAR SPINE WO IVCON Alternative Recommendation N/A *Service which can be approved in place of denied service. Clinical Documentation Provided Peer to Peer Instructions Peer to Peer Does Peer to Peer need to be scheduled? Yes Who can complete the Peer to Peer? DO,FISH NET STRINGER, MD, PA Additional Peer to Peer Instructions You can call for the peer to peer at the date and time of your convenience Appeal Instructions Appeal Address [address] [place], [place] [address] Appeal Required Form(s) N/A Additional Appeal Instructions Send it attention to: Appeals department and include: coversheet with patient's and case information, a formal appeal letter and attach any pertinent supporting clinical documentation. Facility Information Location [facility] [id number] Tax ID# [id number] documented in this encounterAkron Children'S Hospital02-02-2024 Miscellaneous Notes* Telephone Encounter - Tahira Perla Ma - 10/13/2023 1:27 PM EST Pt notified. Transferred to [facility] to set up MRI lumbar that she has not scheduled and US. Tahira Perla Ma * Telephone Encounter - Kim Sena LPN - 10/12/2023 2:55 PM EST TC to pt. LM to call office, ask for triage nurse to get results. Kim Sena LPN * Telephone Encounter - Emelia Lynn APRN.STEAM PRESSER - 10/12/2023 2:46 PM EST Can you [...] to go to the ER. Emelia Lynn APRN.STEAM PRESSER documented in this encounterAkron Children'S Hospital02-01-2024 Miscellaneous Notes* Telephone Encounter - Armando [...] you. Shantal Najera LPN. documented in this encounterAkron Children'S Hospital01-03-2024 History of Present illness Narrative* Roberta Schilling, RT(R) - 09/13/2023 1:50 PM EST Radiology [...] 13, 2023 1:45 PM documented in this encounterAkron Children'S Hospital11-15-2023 History of Present illness Narrative* Juan Kilpatrick CNP - 07/26/2023 8:56 PM ESTAssociated Order(s): LG Jt Injection/Arthrocentesis: R knee; LG Jt Injection/Arthrocentesis: L knee Post-Procedure Diagnose(s): Primary osteoarthritis of both knees Bharti Akbar 1945 CC: 77 y.o. is a she [...] PTCA/Stent; Surgeon: Antonio Tian MD; Location: [facility]; Service: Cardiovascular CATARACT EXTRACTION, BILATERAL Bilateral COLONOSCOPY [...] CNP Authorized by: Juan Kilpatrick CNP CPT 38644 - Large Joint Arthrocentesis: Consent given by: [...] CNP Authorized by: Juan Kilpatrick CNP CPT 81285 - Large Joint Arthrocentesis: Consent given by: [...] file. Juan Kilpatrick CNP documented in this [id number] History of Present illness Narrative* Maciej Birmingham Jr., DPM - 07/05/2023 2:28 PM EDT HPI Chief [...] PTCA/Stent; Surgeon: Antonio Tian MD; Location: [facility]; Service: Cardiovascular CATARACT EXTRACTION, BILATERAL Bilateral COLONOSCOPY [...] foot care and reevaluation. documented in this [id number] Instructions* Patient Instructions* Maciej Birmingham Jr., DPM - 07/05/2023 1:50 PM EDT Apply lotion to toes twice per day documented in this [id number] Miscellaneous Notes* Telephone Encounter - Kathi Velazco RN - 07/05/2023 12:57 PM EDT Called and left a detailed voicemail notifying patient of providers message. Clinic phone number was left in case patient had any questions. Kathi Velazco RN * Telephone Encounter - Emelia Lynn APRN.FREDY - 07/05/2023 12:20 PM EDT Please let the patient know that I sent in her thyroid medication to [facility] in [place]. Hair loss can be common with thyroid disorders. She may consider having a consult with dermatology.They make products gesl-hvo-upehoas as well that she may try. This includes minoxidil topical or Rogaine. The following approved medication requests have been transmitted electronically. Requested Prescriptions Signed Prescriptions Disp Refills levothyroxine (LEVOXYL) 100 mcg tablet 90 tablet 1 Sig: Take 1 tablet by mouth once daily. Take on empty stomach. For Thyroid. Authorizing Provider: EMELIA LYNN APRN.STEAM PRESSER * Telephone Encounter - Rosalba Carlos RN [...] worse, she believes. Pt asking to use [facility] pharmacy. Please call patient back with provider's response/update. Thank you. * Telephone Encounter - Emelia Lynn APRN.CNP - 07/05/2023 11:19 AM EDT Can you please call the patient back and let her know that her thyroid testing was low normal. As long as she is feeling well she can continue with current medication. Please let her know that [facility] pharmacy is unable to fill medications at [...] results due to PCP OOO today. Uses [facility] pharmacy for any thyroid medication. Please [...] information. 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 documented in this encounterAkron Children'S Hospital09-01-2023 History of Present illness Narrative* Sanna Rubin APRN.STEAM PRESSER - 05/12/2023 3:08 PM EDT Chief Complaint [...] after a fall. Pt was evaluated in [facility] on05/05 and left foot xray was negative. [...] OF 2002 Lasik Surgery on both eyes ([facility]) PAST SURGICAL HISTORY OF 2010 broken neck [...] Patient agreeable to treatment plan. Sanna Garcia APRN.FREDY [address] [place] [address] documented in this encounterAkron Children'S Hospital09-01-2023 Miscellaneous Notes* Telephone Encounter - Loida Espinoza APRN.CNP - 05/12/2023 2:23 PM EDT Noted, thank you. Loida Espinoza APRN.CNP * Telephone Encounter - Rosalba Carlos RN - 05/12/2023 2:11 PM EDT Pt calling and reports continued left foot pain after a fall. Pt was evaluated in [facility] on8/25 and left foot xray was negative. Pt [...] this afternoon with pt's PCP team. Rosalba Carlos RN documented in this encounterAkron Children'S Hospital08-25-2023 History of Present illness Narrative* Jose Keller APRN.STEAM PRESSER - 05/05/2023 3:34 PM EDT Images from [...] OF 2002 Lasik Surgery on both eyes ([facility]) PAST SURGICAL HISTORY OF 2010 broken neck PAST SURGICAL HISTORY OF 08/2015 Bare metal stent/ graft of heart x 1 PRQ CARDIAC STENT W/ANGIO 1 VSL 09/01/2015 Mid Lad TONSILLECTOMY PRIMARY/SECONDARY <AGE 12 TOTAL ABDOMINAL HYSTERECT W/WO RMVL TUBE OVARY 1994 [facility] LENS PROSTH W/O ECP [...] of care. This note was generated using Cortus SA software. It may contain errors in wording, punctuation, or spelling. Jose Keller APRN.FREDY documented in this encounterAkron Children'S Hospital08-16-2023 Miscellaneous Notes* Telephone Encounter - Kim [...] has any questions. Thank you. Emelia Lynn APRN.FREDY documented in this encounterCleveland [id number] NoteHNO ID: [id number] Author: Jermaine Jo CT Service: Radiology Author Type: Technologist Type: [...] BY: NIDA Aguilar April 20, 2023 3:00 [facility]08-10-2023 NoteHNO ID: [id number] Author: Mela Harley RT(R) Service: ? Author Type: Technologist Type: Progress Notes Filed: 04/20/2023 3:46 PM Note Text: Radiology Service Progress Note PATIENT NAME: Bharti kAbar DATE OF SERVICE: April 20, 2023 TIME: [...] BY: RT Claude(R) April 20, 2023 3:45 [facility]08-10-2023 History of Present illness Narrative* Jermaine [...] 20, 2023 3:00 PM documented in this encounterAkron Children'S Hospital08-10-2023 History of Present illness Narrative* Mela [...] BY: RT Claude(R) April 20, 2023 3:45 PM documented in this encounterAkron Children'S Hospital08-10-2023 Instructions* Patient Instructions* Emelia Lynn APRN.STEAM PRESSER - 04/20/2023 12:48 PM EDT Images from [...] Bharti Akbar [facility]. A concussion is typically [...] under the supervision of a medical professional. [place] has laws requiring youth athletes to complete [...] the recovery plan. You may also visit [email or web address] for more information. Sincerely, Emelia Lynn APRN.STEAM PRESSER Frequently Asked Questions about Concussion What is [...] imaging with a CT or MRI. All [facility] have laws to protect youth/student athletes from [...] or to make an appointment, go to [email or web address] or call [phone] ([phone]). What does concussion treatment/management involve? Most patients [...] or to make an appointment, go to [email or web address] or call [phone] ([phone]). I can t seem to focus or [...] or to make an appointment, go to [email or web address] or call [phone] ([phone]). 1 How to Manage Concussion Symptoms The [...] or to make an appointment, go to [email or web address] or call [phone] ([phone]). 1 NECK PAIN: TIPS FOR MANAGEMENT Discomfort [...] or to make an appointment, go to [email or web address] or call [phone] ([phone]). documented in this encounterAkron Children'S Hospital08-10-2023 History of Present illness Narrative* Emelia Lynn APRN.[facility] - 04/20/2023 12:40 PM EDT This is [...] - Both Eyes 11/17/2014 C2 cervical fracture ([facility]) CAD (coronary artery disease) 2014 heart stent x 1/ bare metal CAD (coronary artery disease) Chronic periscapular pain on left side 07/19/2016 Closed fracture of cervical spine ([facility]) 11/03/2010 DEPRESSIVE DISORDER NEC 01/23/2007 Depressive disorder, [...] OF 2002 Lasik Surgery on both eyes ([facility]) PAST SURGICAL HISTORY OF 2010 broken neck [...] discussed and patient voices understanding. Emelia Lynn APRN.STEAM PRESSER This note was partially generated using Dragon voice recognition system. Note was reviewed for accuracy. There may be minor misspellings or grammar miscues with [employer]on voice recognition. documented in this encounterAkron Children'S Hospital08-07-2023 Miscellaneous Notes* Telephone Encounter - Sanaz Smith Ma - 04/17/2023 5:01 PM EDT Order faxed within Epic to [facility] at [phone]. Pt called and notified. Asked about Shingrix [...] mammogram screening order to be faxed to [facility]. Please submit order, fax to [facility], then notify patient so she may follow up with scheduling. documented in this encounterAkron Children'S Hospital08-04-2023 Miscellaneous Notes* Telephone Encounter - Kathi Velazco RN - 04/14/2023 8:07 AM EDT Lab sent to # [phone] to [facility] Outpatient Lab. * Telephone Encounter - Armando Orozco MD - 04/13/2023 5:47 PM EDT Order filed Armando Orozco MD * Telephone Encounter - Jose Perez MD - 04/12/2023 6:17 PM EDT Note emergent. Can wait for PCP * Telephone Encounter - Kathi Velazco RN - 04/12/2023 1:16 PM EDT Amie [facility] Outpatient Lab called and reports Pt needed a TSH re-drawn for provider it was 9.850 on 01/12/23. She reports they have just drawn labs on Pt. If provider can sign order for lab, please fax to [phone] and she can add to lab work she has drawn. documented in this encounterAkron Children'S Hospital07-19-2023 Instructions* Patient Instructions* Emelia Lynn APRN.CNP - 03/29/2023 10:52 AM EDT Continue to take all medication as prescribed. Start Meloxicam 15 mg daily with food. (Help with pain) Keep scheduled appointment with cardiology Urine will be sent out for more testing Stay well hydrated Follow up in 1 month or sooner as needed. documented in this encounterAkron Children'S Hospital07-19-2023 History of Present illness Narrative* Emelia [...] Will be having a follow up with [facility] in April. 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 Urine: Refers that urine has been darker than normal. No dysuria or hematuria. Would like urine checked today. PAST MEDICAL HISTORY: PAST MEDICAL HISTORY Diagnosis Date A-fib (HCC) Astigmatism, unspecified - Both Eyes 11/17/2014 C2 cervical fracture ([facility]) CAD (coronary artery disease) 2014 heart stent x 1/ bare metal CAD (coronary artery disease) Chronic periscapular pain on left side 07/19/2016 Closed fracture of cervical spine ([facility]) 11/03/2010 DEPRESSIVE DISORDER NEC 01/23/2007 Depressive disorder, [...] OF 2002 Lasik Surgery on both eyes ([facility]) PAST SURGICAL HISTORY OF 2010 broken neck [...] discussed and patient voices understanding. Emelia Lynn APRN.STEAM PRESSER This note was partially generated using Cortus SA voice recognition system. Note was reviewed for accuracy. There may be minor misspellings or grammar miscues with Cortus SA voice recognition. documented in this encounterAkron Children'S Hospital07-06-2023 Miscellaneous Notes* Telephone Encounter - Tahira [...] just tender. Patient requests call back at [phone] and reports it is ok to leave a voicemail. Please review and advise, Leslie Landa RN documented in this encounterAkron Children'S Hospital06-27-2023 Instructions* Patient Instructions* Tahira Perla Ma - 03/07/2023 3:42 PM EDT Start Effexor xr 37.5 mg every day Stop the HCTZ (hydrochlorothiazide) and Potassium. See if balance improves off the HCTZ. Continue to monitor your blood pressure at home. documented in this encounterAkron Children'S Hospital06-27-2023 History of Present illness Narrative* Armando [...] advanced directive. She is still working at [employer], is working 35 hours a week [...] states she has discussed this with her Senior Mechanical Technician is with [facility] in [place]. Was told her carotid was over 50% blocked. Her working foreman referred her to architect internship, she has not see this provider yet. [...] She works because Medicare will not cover Lilian which is why she works for her health insurance. Lipid: & CAD: Taking Colestid 1 gram BID, ASA 81 mg daily, and Plavix 75 mg daily. Follows witha Senior Mechanical Technician. C/o jaw pain on going for a long time but worsened in the last 3 months. She states left side lowerjaw is swollen, inflamed, was red. She has been brushing more with crest toothpaste and peroxide which has helped some. She has a dentis in [place] but hasn't seen them in some time. [...] - Both Eyes 11/17/2014 C2 cervical fracture ([facility]) CAD (coronary artery disease) 2014 heart stent x 1/ bare metal CAD (coronary artery disease) Chronic periscapular pain on left side 07/19/2016 Closed fracture of cervical spine ([facility]) 11/03/2010 DEPRESSIVE DISORDER NEC 01/23/2007 Depressive disorder, [...] colon CORRJ HALLUX VALGUS W/SESMDC W/2 OSTEOT 2003 RIGHT FOOT DILATION & CURETTAGE DX&/THER NONOBSTETRIC 1979 AFTER MISCARRAGE EGD 08/26/2020 EGD TRANSORAL BIOPSY SINGLE/MULTIPLE 06/19/2015 gastritis ESOPHAGOGASTRODUODENOSCOPY TRANSORAL DIAGNOSTIC 08/03/2005 EGD PAST SURGICAL HISTORY OF 1975 RECTAL WALL REPAIR PAST SURGICAL HISTORY OF 2002 Lasik Surgery on both eyes ([facility]) PAST SURGICAL HISTORY OF 2010 broken neck [...] None ASSESSMENT/PLAN: 1. 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- ICD9: 414.01, ICD10: [...] Past Histories independently gathered by the clinical technical support assistant and the remaining scribed note accurately describes [...] PM. Tahira Perla Ma documented in this encounterAkron Children'S Hospital06-27-2023 History of Past illness Narrative* Problem [...] of this encounter (statuses as of 11/20/2023) [facility] History of Past illness Narrative* Problem [...] of this encounter (statuses as of 11/28/2023) [facility] History of Past illness Narrative* Problem [...] of this encounter (statuses as of 12/20/2023) [facility] History of Past illness Narrative* Problem [...] of this encounter (statuses as of 12/22/2023) [facility] History of Past illness Narrative* Problem [...] of this encounter (statuses as of 12/28/2023) [facility] History of Past illness Narrative* Problem [...] of this encounter (statuses as of 01/01/2024) [facility]-05-[facility] Miscellaneous Notes* Telephone Encounter - Shantal Recinoserinn CALVIN - 01/13/2023 2:19 PM EDT Patient returned call and went over results, notes from Sonia Damon FISH NET STRINGER with understanding. Aware rx sent to pharmacy. [...] a higher dose oflevothyroxine. documented in this encounterAkron Children'S Hospital05-05-2023 Miscellaneous Notes* Telephone Encounter - Kushal [...] THYROID Date of last office visit in primary : 01/12/23 Last 2 Encounter Wt Readings: Date: Wt: 01/12/2023 55.3 kg (122 lb) 07/13/2022 54 kg (119 lb) Previous labs/tests for medication: Thyroid: TSH Date Value 01/12/2023 9.850 mIU/L 11/01/2021 1.000 uU/mL Thank you. Kika Costa LPN documented in this encounterAkron Children'S Hospital05-05-2023 Miscellaneous Notes* Telephone Encounter - Kika Costa LPN - 01/13/2023 8:48 AM EDT opened in error documented in this encounterAkron Children'S Hospital05-04-2023 Instructions* Patient Instructions* Sonia Damon APRN.CNP - 01/12/2023 8:07 AM EDT Complete labs Start lidocaine patches Follow up with [facility] documented in this encounterAkron Children'S Hospital05-04-2023 History of Present illness Narrative* Sonia [...] she is currently under the care of [facility] who are currently pursuing PT. Patient reports they wanted an MRI but insurance is requiring PT first. Past medical history, appointments, medications, allergies reviewed. Previous Medical History PAST MEDICAL HISTORY Diagnosis Date A-fib ([facility]) Astigmatism, unspecified - Both Eyes 11/17/2014 C2 [...] OF 2002 Lasik Surgery on both eyes ([facility]) PAST SURGICAL HISTORY OF 2010 broken neck [...] BLD - T4 FREE/FREE THYROX Sonia Damon APRN.STEAM PRESSER documented in this encounterAkron Children'S Hospital05-03-2023 Miscellaneous Notes* Telephone Encounter - Rosalba [...] right back 4. SEVERITY: moderate 5. PAIN: 6/10 6. CORD SYMPTOMS: none 7. SIZE: no open areas 8. TETANUS: see record 9. OTHER SYMPTOMS: as above 10. : n/a Protocols used: Back Fjcsup-GATLI-QH documented in this encounterAkron Children'S Hospital01-31-2023 Miscellaneous Notes* Telephone Encounter - Tahira Perla Ma - 2022 4:47 PM EST Pt notified of results via goTennahart. Tahira Perla Ma * Telephone Encounter - [...] to see if that will help. Armando Orozco MD * Telephone Encounter - Grace Hughes - 10/07/2022 3:26 PM EST Bharti Akbar is calling Armando Orozco MD today. Patient hair is still falling out and her nails are brittle, breaking. She said her thyroid lab work came back okay. What else could be causing this? Please advise and return her call [phone] documented in this encounterAkron Children'S Hospital01-27-2023 Miscellaneous Notes* Telephone Encounter - Kushal Weldon APRN.FREDY - 10/07/2022 3:43 PM EST The following approved medication requests have been transmitted electronically. Requested Prescriptions Pending Prescriptions Disp Refills levothyroxine (SYNTHROID) 88 mcg tablet 30 tablet 2 Sig: Take 1 tablet by mouth once daily. Take on empty stomach. For Thyroid Kushal Weldon APRN.CNP * Telephone Encounter - Grace Saul - 10/07/2022 3:25 PM EST Patient has [...] notify patient. Grace Hughes documented [facility] this [facility]22 Miscellaneous Notes* Telephone Encounter - Leslie [...] visit Armando Orozco MD documented in this encounterAkron [facility]12-28-2022 Miscellaneous Notes* Telephone Encounter - Armando Orozco MD - 09/07/2022 12:19 PM EST Orders filed Armando Orozco MD * Telephone Encounter - Tahira Perla Ma - 09/07/2022 12:16 PM EST Pt was told in phone note 07/14/22 that her TSH was high and to recheck in 6-8 weeks. Pt here at [facility] needs orders. Orders pended. Tahira Perla Ma documented in this encounterAkron Children[facility]12-01-2022 History of Present illness Narrative* This [...] of motion/joint mobility, strength and transfers. [facility] [place] Work Phone: [phone]) 820-124811-30-2022 NotePlan of Care Continue Current Plan of [...] to doctors? appointments. Primary Language for learning: Urdu. Insurance Insurance reviewed Visit number: 2 Onset Date: 2021 Medicare Certification Period: Beginnin2021 Endin2021 Subjective Living Environment: home - patient lives with spouse. Patient arrival: independent Patient alert and ready to participate in telehealth visit this date. Objective Progress to date: nursing home goals: Improve overall vocal health to foster [...] verbalized understanding and agreement: yes Limited Codes ([facility] Only): [id number] Speech language treatment limited. Signatures Electronically signed by : Perlita Maynard CCC-DUCT LAYER HELPER; Aug 10 2022 5:43PM EST (Author) [id number] History of Present illness Narrative* Educated patient [...] 2 * Voice: level 4 initial [facility] Work Phone: 1(446) 620-811211-21-2022 Miscellaneous Notes* Telephone Encounter - Tahira Perla Ma - 08/01/2022 10:02 AM EST Forms faxed to [phone]. Tahira Perla Ma * Telephone Encounter - Armando Orozco MD - 07/29/2022 12:15 PM EST Form done Armando Orozco MD * Telephone Encounter - Kkia Costa LPN - 07/21/2022 12:33 PM EST [...] completed. Tahira Perla Ma documented in this encounterAkron [facility]11-03-2022 Miscellaneous Notes* Telephone Encounter - Shannon [...] recheck in 6-8 weeks. documented in this encounterAkron [facility]11-02-2022 History of Present illness Narrative* Nik Walsh MD - 07/13/2022 11:41 AM EDT Chief Complaint Patient presents with: Recheck: Follow up from Cardiology regarding TSH HPI Bharti Akbar is a 76 year old female who presents here today for Above Complaints.. Senior Mechanical Technician noted on06/30 her TSH was low at [...] - Both Eyes 11/17/2014 C2 cervical fracture ([facility]) CAD (coronary artery disease) 2014 heart stent x 1/ bare metal CAD (coronary artery disease) Chronic periscapular pain on left side 07/19/2016 Closed fracture of cervical spine ([facility]) 11/03/2010 DEPRESSIVE DISORDER NEC 01/23/2007 Depressive disorder, [...] OF 2002 Lasik Surgery on both eyes ([facility]) PAST SURGICAL HISTORY OF 2010 broken neck [...] THYROX Nik Walsh MD documented in this encounterAkron [facility] Hospital10-01-2022 History of Present illness Narrative* BHARTI [...] for complaint except as noted in HPI. [facility] [address] Work Phone: [phone]) 400-610808-25-2022 Instructions* Patient Instructions* Emelia Lynn APRN.STEAM PRESSER - 05/05/2022 8:24 AM EDT 1.) Reduce [...] taking this medication abruptly. documented in this encounterAkron Children[facility] Hospital08-25-2022 History of Present illness Narrative* Emelia [...] - Both Eyes 11/17/2014 C2 cervical fracture ([facility]) CAD (coronary artery disease) 2015 heart stent x 1/ bare metal CAD (coronary artery disease) Chronic periscapular pain on left side 07/19/2016 Closed fracture of cervical spine ([facility]) 11/03/2010 DEPRESSIVE DISORDER NEC 01/23/2007 Depressive disorder, [...] OF 2002 Lasik Surgery on both eyes ([facility]) PAST SURGICAL HISTORY OF 2010 broken neck [...] APRN.FREDY This note was partially generated using [employer] voice recognition system. Note was reviewed for accuracy. There may be minor misspellings or grammar miscues with Dragon voice recognition. documented in this encounterAkron Children'[facility] Hospital07-21-2022 History of Present illness Narrative* Sanaz Smith Ma - 03/31/2022 11:51 AM EDT See scanned GI H&P. Scan on 03/31/2022 10:42 AM by External Provider: Consultation - GI Sanaz Smith Ma documented in this encounterAkron Children'[facility] Hospital05-26-2022 Miscellaneous Notes* Telephone Encounter - Armando [...] cost hanley. 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 Patient said she does see Dr Max for Cardiology, he has her on Plavix due to her stents and Dr Lewis for Gastroenterology. Patient said she is off work today, can call her or send her a my chart message. Please advise documented in this encounterAkron Children'[facility] Hospital04-01-2022 History of Present illness Narrative* Armando [...] OF 2002 Lasik Surgery on both eyes ([facility]) PAST SURGICAL HISTORY OF 2010 broken neck [...] seen: Cardio - Dr. Max Gastro - [facility], Dr. Barrera Dentist - Follows with Provider in [place]. End of Live Planning discussed including patients [...] Cardiac Rehab that she will do in [place] - Continue current medications. Follow up in 6 months Armando Orozco MD documented in this encounterAkron Children'[facility] Hospital11-28-2021 NotePROCEDURE: IR SELECTIVE VISCERAL ARTERIOGRAM (08/08/2021 [...] medication(s), I spent 133 minutes of continuous gzvh-tt-[id number] time with the patient. PROCEDURE MEDICATIONS: 5:39 [...] 111 mL Given Rate: 0 Route: Intravenous; CRYSTALIZER OPERATOR(S): Juanpablo Holm MD (Attending). Emelia Abraham MD [...] archive system. Exchange is made for a 5-Macedonian and a static sheath over a Bentson [...] CTA from earlier today (more content not included)...[facility]08-18-2021 Miscellaneous Notes* Assessment & Plan Note - Love Ferraro CNP - 04/28/2021 12:13 PM EDT Associated Problem(s): CAD (coronary artery disease) Patient with history of CAD, s/p stent intervention to LAD in 2014. She presented to [facility] with complaints of chest pain on 04/17/2021 while doing something physical while at work. She was subsequently transferred to [facility] for ongoing cardiac care and management. Serial enzymes negative, EKG nonacute but given her symptoms and history of CAD with previous stentintervention she was brought to the heart catheterization for invasive assessment. [facility] 04/19/2021 revealed two-vessel obstructive CAD of [...] weeks with return 05/07/2021. She is brought [facility] paperwork to be completed for her employer. Today patient states she is feeling improved. She still has some fatigue but no chest pain, shortness of breath, orthopnea, PND, dependent edema, lightheadednessor dizziness, palpitations. She does report that she has been having some gastric irritation since starting on some of the medication. She states that she is taken an acid sports instructor at bedtime which has helped. She states [...] future. 4. Follow up as scheduled with working foreman. documented in this [id number] Instructions* Patient Instructions* Love Ferraro CNP - 04/28/2021 10:20 AM EDT 1. I am going to add Pepcid (Famotdine) 40mg daily in the am on an empty stomach about 30 minutes prior to taking rest of medications. 2. Cardiac rehab as scheduled 3. Follow up as scheduled. documented in this [id number] History of Present illness Narrative* Love Ferraro CNP - 04/28/2021 10:09 AM EDT [facility] [address] ([address]) [facility] [address] [facility] [address] Physicians: Armando Orozco MD (Family); No ref. provider found (Referring) Today's Chief Complaint: Follow-up HISTORY: Subjective I had the pleasure of seeing Ms. Akbar in follow up today at the [facility] in [place]. is a 75 y.o. female who [...] to LAD in 2014. She presented to [facility] with complaints of chest pain on 04/17/2021 while doing something physical while at work. She was subsequently transferred to [facility] for ongoing cardiac care and management. Serial enzymes negative, EKG nonacute but given her symptoms and history of CAD with previous stentintervention she was brought to the heart catheterization for invasive assessment. [facility] 04/19/2021 revealed two-vessel obstructive CAD of [...] weeks with return 05/07/2021. She is brought [facility] paperwork to be completed for her employer. Today patient states she is feeling improved. She still has some fatigue but no chest pain, shortness of breath, orthopnea, PND, dependent edema, lightheadednessor dizziness, palpitations. She does report that she has been having some gastric irritation since starting on some of the medication. She states that she is taken an acid sports instructor at bedtime which has helped. She states [...] future. 4. Follow up as scheduled with working foreman. FOR THE RECORD: Diagnostic Studies/Labs personally reviewed: [...] Possible PTCA/Stent; Surgeon: Antonio Tian MD; [facility]: [facility]; Service: Cardiovascular CATARACT EXTRACTION, BILATERAL Bilateral CORONARY [...] normal. Love Ferraro CNP documented in this [id number] Miscellaneous Notes* Quick Note - Myra Ocampo RN - 04/21/2021 1:20 PM EDT Pt given work release. Pt taken down to main lobby by gateway. took items home with the pt. * Quick Note - Myra Ocampo RN - 04/21/2021 12:30 [...] area. That pain happened and 3 episodes [id number]. Patient felt hot during the pain. Patient [...] 04/20/2021 2:19 PM EDT Cardiology Progress Note [facility] Cardiology Sign-Off Discharge [...] recommendations pending her diagnostic findings. Update 04/20/2021: [facility] 04/19/2021 showed Two-vessel obstructive CAD. Subsequently [...] Nitroglycerin sublingual instructions provided to patient. This FISH NET STRINGER discussed Cardiac Rehabilitation with the patient. Subjects [...] Nitroglycerin sublingual instructions provided to patient. This FISH NET STRINGER discussed Cardiac Rehabilitation with the patient. Subjects [...] Rehab referral placed? YES documented in this [id number] Hospital course Narrative* Alivia Castellanos MD - 04/21/2021 12:20 PM EDT HOSPITALIST DISCHARGE SUMMARY Patient: Bharti Akbar Account: [id number] Admitted: 04/17/2021 Discharge Date/Time: 04/21/2021 Clinical Summary [...] area. That pain happened and 3 episodes kucu-[id number]. Patient felt hot during the pain. Patient [...] SA 20 MEQ tablet Commonly known as: K-DURKLOR-CON Take 1 (one) tablet (20 mEq total) [...] Your Medications These medications were sent to [facility] [address] [place] [address] - [address] [place] [id number] atorvastatin 40 MG tablet lisinopriL 20 MG tablet metoprolol tartrate 25 MG tablet potassium chloride SA 20 MEQ tablet ticagrelor 90 mg Tab tablet Physician(s) Family: Physician No, Phone: None, Address: [facility] Follow Up: No follow-up provider specified. Patient instructions, including activity, were given to the patient/family at discharge. Please seethe After Visit Summary in the medical record for details. Time spent on discharge: > 30 minutes Completed by: Alivia Castellanos on 04/21/21, 12:20 PM documented in this [id number] History of Present illness Narrative* Gemma Valles, RD - 04/20/2021 2:03 PM EDT Nutrition [...] Estimated Energy Needs Total Energy Estimated Needs: [id number] Method for Estimating Needs: 30 kcal/kg Total Protein Estimated Needs: 61 Method for Estimating Needs: 1.2 gm/kg RODY Gonzalez, RDN, LD Cell Office * Alivia Castellanos MD - 04/20/2021 1:13 PM EDT [facility] Medicine Inpatient Follow-up 04/20/2021 Alivia Castellanos MD [facility] Patient: Bharti Akbar Date of : 1945 [...] -- 105 104 -- BUN mg/dL -- 20 21 -- POC BUN mg/dL -- -- -- [...] Castellanos MD - 04/19/2021 1:38 PM EDT [facility] Medicine Inpatient Follow-up 04/19/2021 Alivia Castellanos MD [facility] Patient: Bharti Akbar Date of : 1945 [...] IMAGING: Reviewed 1:38 PM documented in this [id number] Hospital Discharge instructions * Instructions* 04/20/2021 [facility] Post Cardiac Catheterization [...] shower 24 hours after the procedure. Call [facility] at [phone] if you notice any of the following: [...] need of prescription assistance, please notify the [facility] nurse or call the office. If you were prescribed Plavix (clopidogrel), Effient (prasugrel), or Brilinta (ticagrelar) after your procedure, DO NOT STOP taking this medication unless told to do so by your [facility] working foreman. Follow up appointments, tests or procedures will be on your discharge paperwork under What's next. Please call [facility] at [phone] to reschedule any appointments if needed or if you have any questions or concerns. Thank you! Brilinta samples and savings card provided for patient documented in this [id number] History of Present illness Narrative* Brooklynn Newell RN - 04/20/2021 11:55 AM EDT Educated pt on Phase II Cardiac Rehab. Educational information given to pt and pt understands verbally. Pt lives in [place] and prefers to do her rehab in [place]. Referral faxed to [place]. documented in this [id number] NoteCardiac Catheterization Procedure Report Date of Service: 04/19/21 Principal Property Management Accountant and Supervising Physician: Antonio Tian MD Procedures [...] heparin as the procedural anticoagulant, a 6 Macedonian XB LAD 3.5 guide catheter was used to engage the left coronary artery. A [employer] Omni pressure wire was then advanced into [...] 20 mm, stenosis 70%, (more content not included)...[facility]08-09-2021 NoteCardiac Catheterization Procedure Report Date of Service: 04/19/21 Principal Property Management Accountant and Supervising Physician: Antonio Tian MD Procedures [...] heparin as the procedural anticoagulant, a 6 Macedonian XB LAD 3.5 guide catheter was used to engage the left coronary artery. A [employer] Omni pressure wire was then advanced into [...] RCA Percutaneous Coronary Interven (more content not included)...[facility] 04-19-2021 Procedure note* Antonio Tian MD - 04/19/2021 2:36 PM EDT Cardiac Catheterization Procedure Report Date of Service: 04/19/21 Principal Property Management Accountant and Supervising Physician: Antonio Tian MD Procedures [...] heparin as the procedural anticoagulant, a 6 Macedonian XB LAD 3.5 guide catheter was used to engage the left coronary artery. A [employer] Omni pressure wire was then advanced into [...] Continued medical therapy and follow-up with primary working foreman Aspirin 81 mg daily indefinitely and Ticagrelor 90mg twice daily for ideally 6- 12 months, or longerat the discretion of the primary working foreman Antonio Tian MD, MPH, MRCP, FACC Interventional Cardiology/Structural Heart Disease [facility] documented in this [id number] Consult note* Og Blancas MD - 04/18/2021 2:08 PM EDT Associated Order(s): IP CONSULT TO NEUROLOGY NEUROLOGY NOTE [facility] [place] [address] [address] second floor [facility] [address] Fax: [phone] Service date: 04/18/2021 Admit date: 04/17/2021 This note was created in part using a speech-recognition software. Bharti Akbar is a 75 y.o. female currently admitted [...] balance. [facility]. She had a little [...] will follow up results of MRI. OG BLANCAS, MSc, MD. Staff Neurologist & Movement Disorder Specialist [facility] (Adj Asst: Professor, [employer] Dept of Neurology) [id number] [address] [facility] Fax: [phone] Attestation: Time statement (IP Consults): A total of 50 minutes were spent at this encounter with the patient and > 50% of that time was spent on counseling and coordination of care. * Joselyn Urbina MD - 04/18/2021 7:12 AM EDT Associated Order(s): IP CONSULT TO CARDIOLOGY General Cardiology Inpatient Consult Heart & Vascular [facility] 04/18/2021 Joselyn Urbina MD [facility] Patient: Bharti Akbar Date of : 1945 [...] 2014 she was evaluated. She was in [facility] at that time. She was having mainly [...] 5 mL 5 mL Intravenous PRN Moo Zungia MD And sodium chloride (PF) (NS) flush [...] 50 mg Oral Nightly PRN Shantal Salazar STEAM PRESSER 50 mg at 04/18/21 0118 Review of [...] 69 ST Segments: ST segments normal normal WI interval normal QRS interval normal QT interval Clinical impression: normal ECG Joselyn Urbina documented in this [id number] History and physical note* Moo Zuniga MD - 04/18/2021 1:29 AM EDT [facility] Medicine Inpatient H&P 04/18/2021 Moo Zuniga MD [facility] Patient: Bharti Akbar Date of : 1945 [...] area. That pain happened and 3 episodes vgqz-pi-[id number]. Patient felt hot during the pain. Patient [...] IMAGING: Reviewed 2:29 AM documented in this [id number] History of Present illness Narrative* Shanique Camacho, RT(R) - 04/15/2021 2:30 PM EDT Radiology [...] 15, 2021 2:21 PM documented in this encounterAkron [facility]08-03-2021 History of Present illness Narrative* Shanique [...] IV DATA: Not applicable SIGNED BY: RT Niles(Tamy) April 13, 2021 10:22 AM documented in this encounterAkron Children[facility] Hospital10-27-2015 History of Past illness Narrative* Problem [...] of this encounter (statuses as of 12/10/2021) [facility] Narrative* Problem [...] of this encounter (statuses as of 02/03/2022) [facility] of Past illness Narrative* Problem Noted Date Resolved Date Heberden's nodes 07/07/2015 09/15/2016 Iron deficiency anemia due to chronic blood loss 03/06/2015 09/15/2016 De Querolegin's [...] of this encounter (statuses as of 02/08/2022) [facility] Narrative* Problem [...] of this encounter (statuses as of 03/31/2022) [facility] Narrative* Problem [...] of this encounter (statuses as of 05/05/2022) [facility] Narrative* Problem [...] of this encounter (statuses as of 07/13/2022) [facility] Narrative* Problem [...] of this encounter (statuses as of 07/14/2022) [facility] Narrative* Problem [...] of this encounter (statuses as of 08/01/2022) [facility] Narrative* Problem [...] of this encounter (statuses as of 09/13/2022) [facility] Narrative* Problem [...] of this encounter (statuses as of 09/14/2022) [facility] Narrative* Problem [...] of this encounter (statuses as of 10/07/2022) [facility] Narrative* Problem [...] of this encounter (statuses as of 10/12/2022) [facility] Narrative* Problem [...] of this encounter (statuses as of 01/12/2023) [facility] Narrative* Problem [...] of this encounter (statuses as of 01/12/2023) [facility] Narrative* Problem [...] of this encounter (statuses as of 01/13/2023) [facility] Narrative* Problem [...] of this encounter (statuses as of 01/13/2023) [facility] Narrative* Problem Noted Date Resolved Date Heberden's nodes 07/07/2015 09/15/2016 Iron deficiency anemia due to chronic blood loss 03/06/2015 09/15/2016 De Quervanhan's [...] of this encounter (statuses as of 01/13/2023) [facility] Narrative* Problem [...] of this encounter (statuses as of 03/08/2023) [facility] Narrative* Problem [...] of this encounter (statuses as of 03/17/2023) [facility] Narrative* Problem [...] of this encounter (statuses as of 03/29/2023) [facility] Narrative* Problem [...] of this encounter (statuses as of 04/14/2023) [facility] Narrative* Problem [...] of this encounter (statuses as of 04/18/2023) [facility] Narrative* Problem [...] of this encounter (statuses as of 04/20/2023) [facility] Narrative* Problem [...] of this encounter (statuses as of 04/21/2023) [facility] Narrative* Problem [...] of this encounter (statuses as of 04/21/2023) [facility] Narrative* Problem [...] of this encounter (statuses as of 04/21/2023) [facility] Narrative* Problem [...] of this encounter (statuses as of 04/27/2023) [facility] Narrative* Problem [...] of this encounter (statuses as of 05/06/2023) [facility] Narrative* Problem [...] of this encounter (statuses as of 05/12/2023) [facility] Narrative* Problem [...] of this encounter (statuses as of 05/12/2023) [facility] Narrative* Problem [...] of this encounter (statuses as of 06/24/2023) [facility] Narrative* Problem [...] of this encounter (statuses as of 07/05/2023) [facility] Narrative* Problem [...] of this encounter (statuses as of 10/13/2023) [facility] Narrative* Problem [...] of this encounter (statuses as of 10/13/2023) [facility] Narrative* Problem [...] of this encounter (statuses as of 10/19/2023) [facility] Narrative* Problem [...] of this encounter (statuses as of 10/24/2023) [facility] Narrative* Problem [...] of this encounter (statuses as of 10/26/2023) [facility]ative* Problem [...] of this encounter (statuses as of 10/27/2023) [facility] History of Past illness Narrative* Problem [...] of this encounter (statuses as of 10/31/2023) [facility] History of Past illness Narrative* Problem [...] of this encounter (statuses as of 11/01/2023) [facility] History of Past illness Narrative* Problem [...] of this encounter (statuses as of 11/05/2023) [facility] History of Past illness Narrative* Problem [...] of this encounter (statuses as of 11/16/2023) [facility] Coronary artery disease, unspecified vessel or lesion type, unspecified whether angina present, unspecified whether [place] or transplanted heart- Primary Post PTCA Postsurgical percutaneous transluminal coronary angi[facility] Diagnosis Chest pain- Primary Unspecified chest pain S/P PTCA (percutaneous transluminal coronary angioplasty) Postsurgical percutaneous transluminal coronary angioplasty [facility] Diagnosis Coronary artery disease involving [place] coronary artery of [place] heart, unspecified whether angina present [facility]* Diagnosis Medicare annual wellness visit, subsequent- Primary Routine general medical examination at a health care facility Essential hypertension Unspecified essential hypertension 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 [facility]* Diagnosis Onset Date Resolution Status C. difficile colitis acute GI bleed acute Ischemic colitis acute Segmental colitis associated with diverticulosis acute Chest tightness acute HLD (hyperlipidemia) acute SOB (shortness of breath) [place] Aortic insufficiency chronic Atherosclerotic heart diseas e of [place] coronary artery without angina pectoris chronic Essential hypertension chron ic Presence of stent in coronary artery April, chronic Palpitations resolved C. difficile colitis acute GI bleed acute Diarrhea acute GI bleed acute Ischemic colitis acute Fall acute Aortic valve disease chronic Atherosclerotic heart diseas e of [place] coronary artery without angina pectoris chronic Essential hypertension chron ic Presence of stent in coronary artery April, [facility] Work Phone: Evaluation note* Diagnosis Onset Date Resolution Status Diarrhea acute GI bleed acute Ischemic colitis acute Fall acute Aortic valve disease chronic Atherosclerotic heart diseas e of [place] coronary artery without angina pectoris chronic Essential hypertension chron ic Presence of stent in coronary artery April, chronic Diarrhea acute History of GI bleed chronic Fatigue chronic Iron deficiency anemia due to chronic blood loss chronic Lung nodule, multiple chroni c [facility] Work Phone: Evaluation note* Diagnosis Onset Date Resolution Status Diarrhea acute History of GI bleed chronic Fatigue chronic Iron deficiency anemia due to chronic blood loss chronic Lung nodule, multiple chroni c Dysphagia acute Hoarseness of voice acute Weakness acute Fatigue chronic Iron deficiency anemia due to chronic blood loss [facility] Work Phone: Evaluation note* Diagnosis Postsurgical hypothyroidism- Primary Anxiety with depression Chronic insomnia Insomnia, unspecified Essential hypertension Unspecified essential hypertension Hyperlipidemia, unspecified hyperlipidemia type [facility] Diagnosis Onset Date Resolution Status Dysphagia acute Hoarseness of voice acute Weakness acute Fatigue chronic Iron deficiency anemia due to chronic blood loss chronic Chest tightness acute SOB (shortness of breath) [place] Aortic valve disease chronic Essential hypertension chron ic Fatigue chronic Presence of stent in coronary artery April, [facility] Work Phone: Evaluation note* Diagnosis Postsurgical hypothyroidism- Primary [facility]- Primary [facility] Diagnosis [facility]- [facility] Diagnosis Onset Date Resolution Status Chest tightness acute Palpitations acute SOB (shortness of breath) [place] Aortic valve disease chronic Essential hypertension chron ic Fatigue chronic Presence of stent in coronary artery April, chronic Bloating acute CAD (coronary artery disease) acute Chest tightness acute HLD (hyperlipidemia) acute Palpitations acute SOB (shortness of breath) [place] Angina pectoris chronic Aortic valve disease chronic Bilateral carotid artery stenosis chronic Essential hypertension chron ic Fatigue chronic Presence of stent in coronary artery April, [facility] Work Phone: Evaluation note* Diagnosis Postsurgical hypothyroidism [facility] Diagnosis Onset Date Resolution Status CAD (coronary artery disease) acute Chest tightness acute HLD (hyperlipidemia) acute Palpitations acute SOB (shortness of breath) [place] Angina pectoris chronic Aortic valve disease chronic Bilateral carotid artery stenosis chronic Essential hypertension chron ic Fatigue chronic Presence of stent in coronary artery April, chronic HLD (hyperlipidemia) acute Palpitations acute SOB (shortness of breath) [place] Angina pectoris chronic Aortic valve disease chronic Bilateral carotid artery stenosis chronic Essential hypertension chron ic Fatigue chronic Presence of stent in coronary artery April, chronic [facility] Work Phone: Evaluation note* Diagnosis Chronic right-sided low back pain, unspecified whether sciatica present- Primary Hypothyroidism, acquired Unspecified hypothyroidism [facility] Diagnosis Postsurgical hypothyroidism [facility]* Diagnosis Hypothyroidism, acquired- Primary Unspecified hypothyroidism [facility] Diagnosis 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- Primary Balance problem [...] unspecified angina pectoris [facility] Diagnosis Essential hypertension- Primary Unspecified essential hypertension Balance problem Other symptoms involving nervous and musculoskeletal systems Dizziness Dizziness and giddiness Decreased muscle strength Muscle weakness (generalized) Dark urine Other nonspecific finding on examination of urine Generalized pain [facility] Diagnosis Postsurgical hypothyroidism- Primary [facility] Diagnosis Encounter for screening mammogram for malignant neoplasm of breast- Primary Other screening mammogram [facility] Diagnosis Fall, initial encounter- Primary Concussion without loss of consciousness, initial encounter Injury of head, initial encounter Acute pain of right knee Contusion of cheek, initial encounter Memory loss [facility] Diagnosis Acute pain of right knee [facility]* Diagnosis Fall, initial encounter Contusion of cheek, initial encounter documented in this encounter [facility] note* Diagnosis Injury of head, initial encounter [facility] this encounter [facility]* Diagnosis Onset Date Resolution Status CAD (coronary artery disease) chronic Carotid artery disease chron ic Dyslipidemia chronic Essential hypertension chron ic Carotid artery disease chron ic [facility] Work Phone: Evaluation note* Diagnosis Foot pain, left- Primary Pain in limb Abrasion of right knee, initial encounter [facility]* Diagnosis Blister- Primary Other, multiple, and unspecified sites, blister, without mention of infection Foot pain, left Pain in limb Fall, initial encounter [facility] encounter [facility]* Diagnosis Postsurgical hypothyroidism- Primary [facility]* Diagnosis Left foot pain- Primary Pain in soft tissues of limb Callus of foot Corns and callosities Chronic pain of both knees documented in this encounter [facility] note* Diagnosis Hypothyroidism, acquired- Primary Unspecified hypothyroidism [facility]* Diagnosis Primary osteoarthritis of both knees- Primary Chronic pain of both knees documented in this encounter [facility] note* Diagnosis Onset Date Resolution Status Carotid artery disease chron [facility] Work Phone: Evaluation note* Diagnosis Microscopic hematuria- Primary Calcium oxalate crystals in urine Other nonspecific finding on examination of urine [facility]* Diagnosis Kidney stone- Primary Calculus of kidney [facility]* Diagnosis Microscopic hematuria Calcium oxalate crystals in urine Other nonspecific finding on examination of urine [facility]* Diagnosis Kidney stone- Primary Calculus of kidney Urgency of urination [facility]* Diagnosis Onset Date Resolution Status CAD (coronary artery disease) chronic Carotid artery disease chron ic Dyslipidemia chronic Essential hypertension chron ic Ataxia acute Back pain acute Balance disorder acute Dysmetria acute Falls acute Gait disturbance acute Memory loss acute Systolic murmur acute [facility] Work Phone: Evaluation note* Diagnosis Balance problem- Primary Other symptoms involving nervous and musculoskeletal systems Fibromyalgia Mylagia and myositis, unspecified 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 Essential hypertension Unspecified essential hypertension Postsurgical hypothyroidism Kidney stone Calculus of kidney [facility]* Diagnosis Fibromyalgia- Primary Mylagia and myositis, unspecified History of stroke Transient ischemic attack (TIA), and cerebral infarction without residual deficits Neuropathy Mononeuritis of unspecified site Imbalance Abnormality of gait Spinal stenosis of lumbar region, unspecified whether neurogenic claudication present [facility]* Diagnosis Hospital discharge follow-up- Primary Other follow-up examination Ataxic gait Abnormality of gait Chronic midline low back pain without sciatica Myalgias Essential hypertension Unspecified essential hypertension [facility]* Diagnosis Onset Date Resolution Status CAD (coronary artery disease) chronic Carotid artery disease chron ic Dyslipidemia chronic Essential hypertension chron ic Ataxia acute Back pain acute Balance disorder acute Dysmetria acute Falls acute Memory loss acute Systolic murmur acute CAD (coronary artery disease) chronic Carotid artery disease chron ic Dyslipidemia chronic Essential hypertension chron ic [facility] Work Phone: Evaluation note* Diagnosis Hypothyroidism, acquired Unspecified hypothyroidism [facility] Diagnosis Onset Date Resolution Status CAD (coronary artery disease) chronic Carotid artery disease chron ic Dyslipidemia chronic Essential hypertension chron ic Ataxia acute Back pain acute Balance disorder acute Dysmetria acute Falls acute Memory loss acute Systolic murmur acute CAD (coronary artery disease) chronic Carotid artery disease chron ic Dyslipidemia chronic Essential hypertension chron ic CVA (cerebral vascular accident) acute Migraine acute [facility] Work Phone: Evaluation note* Diagnosis Onset Date [...] Headache acute URI (upper respiratory infection) acute [facility] Work Phone: Evaluation note* Diagnosis Hypothyroidism, acquired Unspecified hypothyroidism [facility] Diagnosis Hospital discharge follow-up- Primary Other follow-up examination Complicated migraine Migraine with aura, without mention of intractable migraine without mention of status migrainosus URI, acute Acute upper respiratory infections of unspecified site Anxiety with depression Hypothyroidism, acquired Unspecified hypothyroidism Essential hypertension Unspecified essential hypertension [facility]* Diagnosis Dementia without behavioral disturbance, psychotic disturbance, mood disturbance, or anxiety, unspecified dementia severity, unspecified dementia type (HCC)- Primary Lacunar infarction (HCC) Unspecified cerebral artery occlusion with cerebral infarction Intracranial vascular stenosis Cerebrovascular disease, unspecified Unsteadiness Abnormality of gait Frequent falls Personal history of fall Headaches [facility]* Diagnosis Hoarse- Primary Dysphonia documented in this encounter [facility] note* Diagnosis Urinary incontinence, unspecified type- Primary Essential hypertension Unspecified essential hypertension Dementia without behavioral disturbance (HCC) Dementia, unspecified, without behavioral disturbance [facility]* Diagnosis Acute cystitis with hematuria- Primary Acute cystitis Flank pain Abdominal pain, unspecified site Ataxic gait Abnormality of gait Hypothyroidism, acquired Unspecified hypothyroidism Essential hypertension Unspecified essential hypertension documented in this encounter [facility] note* Diagnosis Hypertension- Primary Unspecified essential [...] dementia type (HCC) documented in this encounter [facility] note* Diagnosis Hypertension- Primary Unspecified essential [...] COVID-19 Acute cough [facility] Diagnosis Hypertension- Primary Unspecified essential hypertension [...] Pain in limb [facility] Diagnosis Hypertension- Primary Unspecified essential hypertension [...] Sleep disturbance, unspecified [facility]* Diagnosis Hypertension- Primary Unspecified essential hypertension [...] of right knee [facility]* Diagnosis Hypertension- Primary Unspecified essential hypertension [...] Pain in limb documented in this encounter [facility] note* Diagnosis Hypertension- Primary Unspecified essential [...] region and thigh [facility]* Diagnosis Acute cystitis without hematuria- Primary Acute cystitis documented in this encounter [facility] note* Diagnosis Hypertension- Primary Unspecified essential [...] acquired Unspecified hypothyroidism [facility] Diagnosis Hypertension- Primary Unspecified essential hypertension [...] Sleep disturbance, unspecified documented in this encounter [facility] note* Diagnosis Hypertension- Primary Unspecified essential [...] dementia type (HCC) documented in this encounter [facility] noteNo assessment information [facility]Mar[facility] Work Phone: Evaluation note* Diagnosis Functional neurological symptom disorder (conversion disorder), with mixed symptoms- Primary documented in this encounter [facility] Work Phone: Evaluation note* Diagnosis Hypertension- Primary [...] of foot, right [facility]* Diagnosis Hypertension- Primary Unspecified essential hypertension [...] of foot, right [facility] Diagnosis Hypertension- Primary Unspecified essential hypertension [...] Primary Unspecified hypothyroidism [facility] Diagnosis Hypertension- Primary Unspecified essential hypertension [...] referable to limbs [facility]* Diagnosis Hypertension- Primary Unspecified essential hypertension [...] of unspecified site [facility]* Diagnosis Hypertension- Primary Unspecified essential hypertension [...] dementia type (HCC) documented in this encounter [facility] note* Diagnosis Hypertension- Primary Unspecified essential [...] Unspecified essential hypertension 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 History of stroke Transient ischemic attack (TIA), and cerebral infarction without residual deficits Hypothyroidism, acquired Unspecified hypothyroidism Sleep disorder Sleep disturbance, unspecified Myalgias Dementia without behavioral disturbance, psychotic disturbance, mood disturbance, or anxiety, unspecified dementia severity, unspecified dementia type (HCC) Hyperlipidemia, unspecified hyperlipidemia type [facility] Diagnosis Hypertension- Primary Unspecified essential [...] Unspecified essential hypertension [facility] Diagnosis Hypertension- Primary Unspecified essential hypertension [...] dementia type (HCC) [facility] Author Tahira Meadows [facility] November 13, 2023 6:54pm Note Date/Time November 13, 2023 6:22 pm [facility] Medical Records Department [address] [place] [address] H&P Exam - Hospitalist 11/13/23 1815 MR#: [id number] Acct: [id number] Name: BHARTI AKBAR Rep #:[id number] : [...] She has [facility], Dr. Granger, who has ordered a lumbar [...] Chest x-ray was unremarkable for any acutefindings. [facility] Medical History Abdominal bloating Angina pectoris Aortic insufficiency Aortic valve disease Atherosclerotic heart disease of [place] coronary artery without angina pectoris Atrial fibrillation [...] due to chronic blood loss Ischemic colitis nursing home use of drug Lung nodule, multiple Migraines [...] % (Auto) 65.7, Lymph % (Auto) 23.1, [place] % (Auto) 8.9, Eos % (Auto) 1.6, [...] Signed: Aris Soares MD at 16:44 EST Reading Location ID and State: [facility] / [place] Tel , Service support , Chest X-Ray 11/13/23 16:05 IMPRESSION: No [...] on admission Charges/Coding Visit Charges Inpatient E&M: 63670 Init Hosp L2 11/13/23 6657 <Electronically signed by Tahira Meadows DO> Cosigner Signature (if applicable): CC: Dr. Tahira Meadows DO; Dr. 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 She received the Tera Tera COVID vaccine and had adverse effects. She has pitch breaks and tremor with phonation that worsen with effort. The patient works and reports this is impacting her ability to communicate. * The patient has changes in her swallow as well. She had a MBS at [facility] and reports that it was normal. She [...] negative for complaint and as noted above. [facility] Work Phone: History of Present illness Narrative* [...] recommendations: treatment indicated (see goals below) [facility] [address] [place] Work Phone: History of Present [...] as well. She had a MBS at [facility] one year ago and reports that it [...] negative for complaint and as noted above. [facility] Work Phone: History of Present illness Narrative* arrives to outpatient PT c/o . Pt presents with the following impairments: . These impairments contribute to difficulty in activity limitations and participation restrictions including . Thept s signs and symptoms are consistent with likely . The pt will benefit from skilled PT [id number] for 8 weeks to address the above stated impairments and functional limitations to maximize p articipation and ease in household, social, and work related activities. The pt has a prognosis when considering positive factors including with barriers such as . The pt verbalized understanding and agreement to goals and POC. Thank you for this referral and please call [phone] with any questions or concerns. * Clinical Presentation: Stable and/or uncomplicated characteristics. * Level of Complexity: low [facility] Work Phone: History of Present illness Narrative* [...] you for this referral and please call [phone] with any questions or concerns. * Clinical Presentation: Stable and/or uncomplicated characteristics. * Level of Complexity: [facility] Work Phone: History of Present illness Narrativethis [...] pulleys (advised to reduce RUE elevation). [facility] Work Phone: History of Present illness NarrativePatient [...] rove mobility to decrease fall risk. [facility] Work Phone: History of Present illness NarrativePatient identity confirmed today with name/. added to HEP and given handout; there was one fall since last visit (trip and fall so no addition to fall risk); reduced shldr discomfort with L shldr flexion PROM. [facility] Work Phone: History of Present illness NarrativePatient identity confirmed today with name/. added to HEP and given handout; there was one fall since last visit (trip and fall so no addition to fall risk); reduced shldr discomfort with L shldr flexion PROM. [facility] Work Phone: History of Present illness NarrativePatient identity confirmed today with name/. see goals; excellent ROM/strength gains throughout;all ADL tolerances have improved also. [facility] Work Phone: Reason for referral (narrative)* Diagnostic Procedure Only (Routine) - Pending Review Specialty Diagnoses / Procedures Referred By Jennifer t Referred To Contact [facility] Diagnoses Encounter for screening mammogram for malignant neoplasm of breast Procedures KYA SCREENING SCREENING MAMMOGRAPHY BI 2-VIEW BREAST INC Armando Dominguez MD [address] [place] [address] [facility] [address] [place], [place] [id number] Referral ID Status Reason Start Date Expiration Date Visits Requested Visits Authorized [id number] Pending Review Auto-Generat ed Referral 04/17/2023 05/16/2024 1 1 [facility] for referral (narrative)* Diagnostic Procedure Only (Urgent) - Closed Specialty Diagnoses / Procedures Referred By Contac t Referred To Contact XR IMAGING Diagnoses Foot pain, left Procedures XR FOOT GENERAL 3V AP/LAT/OBL LEFT RADEX FOOT COMPLETE MINIMUM 3 VIEWS Jose Keller APRN.STEAM PRESSER [address] [place] [address] [place] [address] Referral ID Status Reason Start Date Expiration Date V isits Requested Visits Authorized [id number] Closed Auto-Generate d Referral 05/05/2023 06/03/2024 1 1 [facility] for referral (narrative)* Diagnostic Procedure Only (Urgent) - Authorized Specialty Diagnoses / Procedures Referred By Contac t Referred To Contact US IMAGING Diagnoses Microscopic hematuria Calcium oxalate crystals in urine Procedures US KIDNEY/BLADDER US RETROPERITONEAL REAL TIME W/IMAGE COMPLETE Emelia Lynn APRN.STEAM PRESSER [address] [place] [address] [place] [address] Referral ID Status Reason Start Date Expiration Date Visits Requested Visits Authorized [id number] Authorized Auto-Generat ed Referral 10/12/2023 11/10/2024 1 1 [facility] for referral (narrative)* Diagnostic Procedure Only (Urgent) - Closed Specialty Diagnoses / Procedures Referred By Contac t Referred To Contact US IMAGING Diagnoses Microscopic hematuria Calcium oxalate crystals in urine Procedures US KIDNEY/BLADDER US RETROPERITONEAL REAL TIME W/IMAGE COMPLETE Emelia Lynn APRN.STEAM PRESSER [address] [place] [address] [place] [address] Referral ID Status Reason Start Date Expiration Date V isits Requested Visits Authorized [id number] Closed Auto-Generate d Referral 10/12/2023 11/10/2024 1 1 [facility] for referral (narrative)* Diagnostic Procedure Only (Urgent) - Closed Specialty Diagnoses / Procedures Referred By Contac t Referred To Contact XR IMAGING Diagnoses Foot pain, left Procedures XR FOOT GENERAL 3V AP/LAT/OBL LEFT RADEX FOOT COMPLETE MINIMUM 3 VIEWS Jose Keller APRN.STEAM PRESSER [address] [place] [address] [place] [address] Referral ID Status Reason Start Date Expiration Date V isits Requested Visits Authorized [id number] Closed Auto-Generate d Referral 05/05/2023 06/03/2024 1 1 [facility] for referral (narrative)* Diagnostic Procedure Only (Routine) - Closed Specialty Diagnoses / Procedures Referred By Contac t Referred To Contact XR IMAGING Diagnoses Acute pain of right knee Procedures XR KNEE GENERAL 4V AP BOTH/PA BOTH/LAT/MERC RIGHT RADIOLOGIC EXAM KNEE COMPLETE 4/MORE VIEWS Emelia Lynn, GLORIA.STEAM PRESSER [address] [place] [address] [place] [address] Referral ID Status Reason Start Date Expiration Date V isits Requested Visits Authorized [id number] Closed Auto-Generate d Referral 10/27/2021 11/26/2022 1 1 [facility] for referral (narrative)* Diagnostic Procedure Only (Routine) - Closed Specialty Diagnoses / Procedures Referred By Contac t Referred To Contact XR IMAGING Diagnoses Bilateral hand pain Procedures XR HAND GENERAL 3V PA/LAT/OBL BILAT X-RAY HAND MINIMUM 3 VIEWS Katlin Hensley PA-C [address] [place] [address] [place] [address] Referral ID Status Reason Start Date Expiration Date V isits Requested Visits Authorized [id number] Closed Auto-Generate d Referral 04/13/2021 05/13/2022 1 1 [facility] for referral (narrative)* Diagnostic Procedure Only (Routine) - Closed Specialty Diagnoses / Procedures Referred By Contac t Referred To Contact XR IMAGING Diagnoses Left hip pain Procedures XR HIP GENERAL 3V PELV/AP/LAT LT RADEX HIP UNILATERAL WITH PELVIS 2-3 VIEWS Meagan Gallegos APRN.STEAM PRESSER [address] [place] [address] [place] [address] Referral ID Status Reason Start Date Expiration Date V isits Requested Visits Authorized [id number] Closed Auto-Generate d Referral 04/13/2021 05/13/2022 1 1 [facility] for referral (narrative)* Consultation (Routine) - Authorized Specialty Diagnoses / Procedures Referred By Contac t Referred To Contact Psychiatry / Behavioral Health Diagnoses Functional neurological symptom disorder (conversion disorder), with mixed symptoms Verónica Wallace MD PhD [address] [address] Referral ID Status Reason Start Date Expiration Date Visits Requested Visits Authorized [id number] Authorized Consult and Treat 05/24/2024 05/24/2025 [address] [facility] Work Phone: Reason for referral (narrative)* Diagnostic Procedure Only (Routine) - Closed Specialty Diagnoses / Procedures Referred By Contac t Referred To Contact XR IMAGING Diagnoses Foot pain, right Weakness of foot, right Procedures XR FOOT GENERAL 3V AP/LAT/OBL RIGHT RADEX FOOT COMPLETE MINIMUM 3 VIEWS Emelia Lynn APRN.STEAM PRESSER [address] [place] [address] [place] [address] Referral ID Status Reason Start Date Expiration Date V isits Requested Visits Authorized [id number] Closed Auto-Generate d Referral 09/19/2024 10/19/2025 1 1 * Consult, Test, Treat (Routine) - Authorized Specialty Diagnoses / Procedures Referred By Contac t Referred To Contact Podiatry Diagnoses Foot pain, right Weakness of foot, right Procedures CONSULT TO PODIATRY OFFICE/OUTPATIENT [facility] 60 MINUTES Emelia Lynn APRN.STEAM PRESSER [address] [place] [address] Referral ID Status Reason Start Date Expiration Date Visits Requested Visits Authorized [id number] Authorized PCP Requested Referral 09/19/2024 09/19/2025 1 [facility] for [facility] Work [facility]: Reason for visit Narrative* Initial Evaluation . L shoulder pain and R hip pain. * Referred by: Frank Langley PA-C [facility] Work Phone: reason for visit Narrative* Initial Evaluation . L shldr pain/impingement; LBP; R hi pain. * Referred by: Dr Khalil [facility] Work Phone: Renfrx for visit Narrative* Diagnostic Procedure Only (Routine) - Closed Specialty Diagnoses / Procedures Referred By Contac t Referred To Contact XR IMAGING Diagnoses Acute pain of right knee Procedures XR KNEE GENERAL 4V AP BOTH/PA BOTH/LAT/MERC RIGHT RADIOLOGIC EXAM KNEE COMPLETE 4/MORE VIEWS Emelia Lynn APRN.STEAM PRESSER [address] [place] [address] Xr Imaging Referral ID Status Reason Start Date Expiration Date V isits Requested Visits Authorized [id number] Closed Auto-Generate d Referral 04/20/2023 05/19/2024 1 1 [facility] for visit Narrative* Diagnostic Procedure Only (Routine) - Closed Specialty Diagnoses / Procedures Referred By Contac t Referred To Contact XR IMAGING Diagnoses Fall, initial encounter Contusion of cheek, initial encounter Procedures XR FACIAL BONES 3V AP/LAT/DRISCOLL RADEX FACIAL BONES COMPLETE MINIMUM 3 VIEWS Emelia Lynn, PIT CLERK.STEAM PRESSER [address] [place] [address] Xr Imaging Referral ID Status Reason Start Date Expiration Date V isits Requested Visits Authorized [id number] Closed Auto-Generate d Referral 04/20/2023 05/19/2024 1 1 [facility] for visit Narrative* Diagnostic Procedure Only (Urgent) - Closed Specialty Diagnoses / Procedures Referred By Contac t Referred To Contact XR IMAGING Diagnoses Foot pain, left Procedures XR FOOT GENERAL 3V AP/LAT/OBL LEFT RADEX FOOT COMPLETE MINIMUM 3 VIEWS Jose Keller, PIT CLERK.STEAM PRESSER [address] [place] [address] [place] [address] Referral ID Status Reason Start Date Expiration Date V isits Requested Visits Authorized [id number] Closed Auto-Generate d Referral 05/05/2023 06/03/2024 1 1 [facility] for visit Narrative* Diagnostic Procedure Only (Routine) - Closed Specialty Diagnoses / Procedures Referred By Contac t Referred To Contact XR IMAGING Diagnoses Acute pain of right knee Procedures XR KNEE GENERAL 4V AP BOTH/PA BOTH/LAT/MERC RIGHT RADIOLOGIC EXAM KNEE COMPLETE 4/MORE VIEWS Emelia Lynn, PIT CLERK.STEAM PRESSER [address] [place] [address] [place] [address] Referral ID Status Reason Start Date Expiration Date V isits Requested Visits Authorized [id number] Closed Auto-Generate d Referral 10/27/2021 11/26/2022 1 1 [facility] for visit Narrative* Diagnostic Procedure Only (Routine) - Closed Specialty Diagnoses / Procedures Referred By Contac t Referred To Contact XR IMAGING Diagnoses Bilateral hand pain Procedures XR HAND GENERAL 3V PA/LAT/OBL BILAT X-RAY HAND MINIMUM 3 VIEWS Katlin Hensley PA-C [address] [place] [address] [place] [address] Referral ID Status Reason Start Date Expiration Date V isits Requested Visits Authorized [id number] Closed Auto-Generate d Referral 04/13/2021 05/13/2022 1 1 [facility] for visit Narrative* Diagnostic Procedure Only (Routine) - Closed Specialty Diagnoses / Procedures Referred By Contac t Referred To Contact XR IMAGING Diagnoses Left hip pain Procedures XR HIP GENERAL 3V PELV/AP/LAT LT RADEX HIP UNILATERAL WITH PELVIS 2-3 VIEWS Meagan aGllegos APRN.STEAM PRESSER [address] [place] [address] [place] [address] Referral ID Status Reason Start Date Expiration Date V isits Requested Visits Authorized [id number] Closed Auto-Generate d Referral 04/13/2021 05/13/2022 1 1 [facility] for visit Narrative* Diagnostic Procedure Only (Routine) - Closed Specialty Diagnoses / Procedures Referred By Contac t Referred To Contact XR IMAGING Diagnoses Foot pain, right Weakness of foot, right Procedures XR FOOT GENERAL 3V AP/LAT/OBL RIGHT RADEX FOOT COMPLETE MINIMUM 3 VIEWS Emelia Lynn APRN.STEAM PRESSER [address] [place] [address] [place] [address] Referral ID Status Reason Start Date Expiration Date V isits Requested Visits Authorized [id number] Closed Auto-Generate d Referral 09/19/2024 10/19/2025 1 1 [facility] for visit Narrative* Outpatient Procedure (Routine) - Closed Specialty Diagnoses / Procedures Referred By Contac t Referred To Contact [facility] Diagnoses Neuropathy Procedures EMG(NEURO/NI) NERVE CONDUCTION STUDIES 9-10 STUDIES Maya Katz PA-C [address] [place] [address] Phone: tel: fax: Neurology [address] [place] [address] Phone: tel: Referral ID Status Reason Start Date Expiration Date V isits Requested Visits Authorized [id number] Closed Auto-Generate d Referral 11/05/2024 11/05/2025 1 1 [facility] Summary Purpose Family History No Family History Records Found Relationship Condition Age at Onset Recorded Date/T [...] thyroid Unknown Gastric ulcer Unknown Advance Directives No Advanced Directives Records FoundDocuments on File Type Date Recorded Patient Drum Handler Expl anation Advance Directives and Livin g Will 04/17/2021 2:45 PM Latest Code Status on File Code Status Date Activated Date Inactivated Comments Full Code 04/19/2021 2:27 PM Full Code 04/18/2021 12:40 AM 04/19/2021 2:27 PM Documents on File Type Date Recorded Patient Drum Handler Expl anation Advance Directives and Livin g Will 04/17/2021 2:45 PM Latest Code Status on File Code Status Date Activated Date Inactivated Comments Full Code 04/19/2021 2:27 PM Full Code 04/18/2021 12:40 AM 04/19/2021 2:27 PM Latest Code Status on File Code Status Date Activated Date Inactivated Comments Full Code 04/19/2021 2:27 PM 04/21/2021 3:27 PM Documents on File Type Date Recorded Patient Drum Handler Expl anation Advance Directives and Livin g Will 04/28/2021 9:53 AM Latest Code Status on File Code Status Date Activated Date Inactivated Comments Full Code 04/19/2021 2:27 PM 04/21/2021 3:27 PM Documents on File Type Date Recorded Patient Drum Handler Expl anation Advance Directive(s) 10/07/2016 9:12 AM Advance Directive Response Recorded Date/ Time Advance Directives No August 12:59pm Living Will Yes August 29, 021 9:28pm Power of Breaker Unit Assembler Yes August 29, 2021 9:28pm Advance Directive Response Recorded Date/ Time Advance Directives No January 06, 2 022 11:25am Living Will Yes January 06, 2022 11:25am Power of Breaker Unit Assembler Yes January 06 11:25am Advance Directive Response Recorded Date/ Time Advance Directives No January 06, 022 10:25am Living Will Yes January 06, 2022 10:25am Power of Breaker Unit Assembler Yes January 06 10:25am Latest Code Status [...] Date/ Time Name of Medical Power of Breaker Unit Assembler Naatly Randle November 13, 2023 2:56pm Advance Directives No January 06, 022 10:25am Living Will Yes November 13, 2023 2:56pm Power of Breaker Unit Assembler Yes November 12 2:56pm Advance Directive Response Recorded Date/ Time Name of Medical Power of Breaker Unit Assembler Nataly Randle November 13, 2023 9:08pm Advance Directives No January 06, 022 10:25am Living Will Yes November 13, 2023 9:08pm Power of Breaker Unit Assembler Yes November 12 9:08pm Advance Directive Response Recorded Date/ Time Name of Medical Power of Breaker Unit Assembler Nataly Randle November 13, 2023 10:08pm Advance Directives No January 06, 022 11:25am Living Will Yes November 13, 2023 10:08pm Power of Breaker Unit Assembler Yes November 12 10:08pm Advance Directive Response Recorded Date/ Time Name of Medical Power of Breaker Unit Assembler Nataly Randle November 13, 2023 10:08pm Advance Directives No January 06, 022 11:25am Living Will No January 04, 2024 4:40pm Power of Breaker Unit Assembler No January 03 4:40pm Advance Directive Response Recorded Date/ Time Name of Medical Power of Breaker Unit Assembler Nataly Randle November 13, 2023 10:08pm Name of Medical Power of Breaker Unit Assembler Nataly Randle January 04, 2024 10:14pm Advance Directives No January 06, 022 11:25am Living Will Yes January 04, 2024 10:14pm Power of Breaker Unit Assembler Yes January 03 10:14pm Advance Directive Response Recorded Date/ Time Living Will Yes January 04, 2024 10:14pm Do you have a Healthcare Power of Breaker Unit Assembler? Yes January 04, 2024 10:14pm Advance Directives No January 06, 11:25am Advance Directive Response Recorded Date/ Time Advance Directives No January 24 10:14am Do you have a Healthcare Power of Breaker Unit Assembler? No January 30, 2025 3:50pm Reason for Referral Status Reason Specialty Diagnoses / Procedures Referred By Contact Referred To Contact Pending Review Cardiac Rehabilitation Diagnoses Coronary artery disease, unspecified vessel or lesion type, unspecified whether angina present, unspecified whether [place] or transplanted heart Post PTCA Marietta Beltran CNP [address] [place] [address] Status Reason Specialty Diagnoses / Procedures Referred By Contact Referred To Contact Authorized Cardiac Rehabilitation Diagnoses S/P PTCA (percutaneous transluminal coronary angioplasty) Antonio Tian MD [address] [place] [address] Mh Cardio Pulm [address] [place] [address] Specialty Diagnoses / Procedures Referred By Contac t Referred To Contact [facility] Diagnoses Balance problem Decreased muscle strength Procedures PT AQUATIC REHAB FOLLOW UP ORDER THER PX 1/> AREAS EACH 15 MIN AQUA THER W/XERSS Emelia Lynn APRN.STEAM PRESSER [address] [place] [address] [facility] [address] [address] Referral ID Status Reason Start Date Expiration Date Visits Requested Visits Authorized [id number] Pending Review PCP Requested Referral Auto-Generate d Referral 03/29/2023 06/27/2023 1 1 Specialty Diagnoses / Procedures Referred By Contac t Referred To Contact [facility] Diagnoses Balance problem Decreased muscle strength Procedures CONSULT TO PHYSICAL THERAPY PHYSICAL THERAPY EVALUATION HIGH COMPLEX 45 MINS Emelia Lynn, PIT CLERK.STEAM PRESSER [address] [place] [address] [address] Referral ID Status Reason Start Date Expiration Date Visits Requested Visits Authorized [id number] Pending Review Auto-Generat ed Referral 03/29/2023 03/28/2024 1 1 Specialty Diagnoses / Procedures Referred By Contac t Referred To Contact CT IMAGING Diagnoses Injury of head, initial encounter Procedures CT BRAIN WO IVCON CT HEAD/BRAIN W/O CONTRAST MATERIAL Emelia Lynn, PIT CLERK.STEAM PRESSER [address] [place] [address] Ct Imaging Referral ID Status Reason Start Date Expiration Date V isits Requested Visits Authorized [id number] Closed Auto-Generat ed Referral Patient Cleared - Admin/Chairm an/Director advise to proceed or did not respond 04/20/2023 05/19/2023 1 1 Specialty Diagnoses / Procedures Referred By Contac t Referred To Contact XR IMAGING Diagnoses Fall, initial encounter Contusion of cheek, initial encounter Procedures XR FACIAL BONES 3V AP/LAT/DRISCOLL RADEX FACIAL BONES COMPLETE MINIMUM 3 VIEWS Emelia Lynn, PIT CLERK.STEAM PRESSER [address] [place] [address] Xr Imaging Referral ID Status Reason Start Date Expiration Date V isits Requested Visits Authorized [id number] Closed Auto-Generate d Referral 04/20/2023 05/19/2024 1 1 Specialty Diagnoses / Procedures Referred By Contac t Referred To Contact Neurology Diagnoses Memory loss Procedures CONSULT TO NEUROLOGY OFFICE/OUTPATIENT [facility] 60-74 MINUTES Emelia Lynn APRN.STEAM PRESSER [address] [place] [address] Referral ID Status Reason Start Date Expiration Date Visits Requested Visits Authorized [id number] Authorized PCP Requested Referral 04/20/2023 04/19/2024 1 1 Specialty Diagnoses / Procedures Referred By Contac t Referred To Contact Orthopedic Surgery Diagnoses Chronic pain of both knees Maciej Birmingham Jr., DPM [address] [place] [address] Juan Kilpatrick, STEAM PRESSER [address] [place] [address] Referral ID Status Reason Start Date Expiration Date V isits Requested Visits Authorized [id number] Authorized 07/19/2023 07/18/2024 1 1 Specialty Diagnoses / Procedures Referred By Contac t Referred To Contact Urology Diagnoses Kidney stone Procedures CONSULT TO UROLOGY OFFICE/OUTPATIENT [facility] MDM 60 MINUTES Emelia Lynn APRN.STEAM PRESSER [address] [place] [address] Referral ID Status Reason Start Date Expiration Date Visits Requested Visits Authorized [id number] Authorized PCP Requested Referral 10/26/2023 10/25/2024 1 1 Specialty Diagnoses / Procedures Referred By Contac t Referred To Contact [facility] Diagnoses Fibromyalgia History of stroke Neuropathy Imbalance Spinal stenosis of lumbar region, unspecified whether neurogenic claudication present Procedures CONSULT TO PHYSICAL THERAPY PHYSICAL THERAPY EVALUATION HIGH COMPLEX 45 MINS Vega Granger Jr., MD [address] [facility] [address] [place] [address] [facility] [place] [address] [place] [address] Referral ID Status Reason Start Date Expiration Date Visits Requested Visits Authorized [id number] Pending Review Auto-Generat ed Referral 11/27/2023 11/26/2024 1 1 Specialty Diagnoses / Procedures Referred By Contac t Referred To Contact Gastroenterology Diagnoses Hoarse Procedures CONSULT TO GASTROENTEROLOGY OFFICE/OUTPATIENT [facility] 60 MINUTES Armando Orozco MD [address] [place] [address] Referral ID Status Reason Start Date Expiration Date Visits Requested Visits Authorized [id number] Authorized PCP Requested Referral 01/15/2024 01/14/2025 1 1 Specialty Diagnoses / Procedures Referred By Contac t Referred To Contact Ent - Otolaryngology Diagnoses Hoarse Procedures CONSULT TO ENT OFFICE/OUTPATIENT [facility] 60 MINUTES Armando Orozco MD [address] [place] [address] Referral ID Status Reason Start Date Expiration Date Visits Requested Visits Authorized [id number] Authorized PCP Requested Referral 01/15/2024 01/14/2025 1 1 Specialty Diagnoses / Procedures Referred By Contac t Referred To Contact Neurology Diagnoses Ataxic gait Procedures CONSULT TO NEUROLOGY OFFICE/OUTPATIENT [facility] 60 MINUTES Emelia Lynn APRN.CNP [address] [place] [address] Referral ID Status Reason Start Date Expiration Date Visits Requested Visits Authorized [id number] Authorized PCP Requested Referral 03/20/2024 03/20/2025 1 [...] breath) Aortic insufficiency Atherosclerotic heart disease of [place] coronary artery without angina pectoris Essential hypertension Presence of stent in coronary artery Palpitations C. difficile colitis GI bleed Diarrhea GI bleed Ischemic colitis Fall Aortic valve disease Atherosclerotic heart disease of [place] coronary artery without angina pectoris Essential hypertension Presence of stent in coronary artery Chief Complaint CP/SOB/PALPITATIONS CP/SOB/PALPITATIONS follow. up 2 M FU FALL EORDER FU INT LABS NEW-YVONNE FOLLOW UP LUNG NODULES Reason for Visit Diarrhea GI bleed Ischemic colitis Fall Aortic valve disease Atherosclerotic heart disease of [place] coronary artery without angina pectoris Essential hypertension [...] Aortic valve disease Atherosclerotic heart disease of [place] coronary artery without angina pectoris Essential hypertension [...] FU Irreg HR, does not feel well LAscencion ANGINA PECTORIS, CAD/ASHD ANGINA PECTORIS, CAD/ASHD Reason [...] Irreg HR, does not f eel well LAscencion ANGINA PECTORIS, CAD/ASHD ANGINA PECTORIS, CAD/ASHD 3 [...] FROM DR ORTEGA ALSO, 2 ORDERING ZA Reason for Visit CAD (coronary artery disease) [...] Visit Admit Date Bilateral carotid artery stenosis Decemb er 2023 11:26am Aortic stenosis September 25, [...] April 22, 2025 2: 11pm Chief Complaint Admit Date fall January 30, [...] 12:57pm PTNS April 22, 2025 2: 11pm Amb Documentation April 24, 2025 9: 43am Chief Complaint Admit Date fall January 30, [...] 12:57pm PTNS April 22, 2025 2: 11pm Amb Documentation April 24, 2025 9: 43am ptns April 29, 2025 2: 10pm Reason for Visit Admit Date Leg cramps [...] Urge incontinence April 22, 2025 2: 11pm Nocturia April 29, 2025 2: 10pm Urge incontinence April 29, 2025 2: 10pm Chief Complaint Admit Date fall January 30, [...] 12:57pm PTNS April 22, 2025 2: 11pm Amb Documentation April 24, 2025 9: 43am ptns April 29, 2025 2: 10pm ptns May 06, 2025 2: 07pm Chief Complaint [facility] Medications Administered Section Inactive [...] section and content) DATE CREATED AUTHOR 03/07/2018 [facility] DATE CREATED AUTHOR AUTHOR'S ORGANIZ ATION 06/24/2021 [facility] DATE CREATED AUTHOR AUTHOR'S ORGANIZ ATION 02/26/2022 [facility] DATE CREATED AUTHOR AUTHOR'S ORGANIZ ATION 02/20/2023 [facility] DATE CREATED AUTHOR AUTHOR'S ORGANIZ ATION 02/20/2023 [facility] DATE CREATED AUTHOR AUTHOR'S ORGANIZ ATION 03/02/2023 [facility] DATE CREATED AUTHOR AUTHOR'S ORGANIZ ATION 04/24/2023 [facility] DATE CREATED AUTHOR AUTHOR'S ORGANIZ ATION 07/31/2023 [facility] DATE CREATED AUTHOR AUTHOR'S ORGANIZ ATION 08/03/2023 [facility] DATE CREATED AUTHOR AUTHOR'S ORGANIZ ATION 09/28/2023 [facility] DATE CREATED AUTHOR AUTHOR'S ORGANIZ ATION 02/06/2025 [facility] DATE CREATED AUTHOR AUTHOR'S ORGANIZ ATION 05/09/2025 [facility] DATE CREATED AUTHOR AUTHOR'S ORGANIZ ATION 05/10/2025 [facility] Reason for Visit (unrecogniz ed section [...] thyroid Reason Comments [facility] Reason Comments Results Reason Comments [...] CT HEAD/BRAIN W/O CONTRAST MATERIAL Emelia Lynn, PIT CLERK.STEAM PRESSER [address] [place] [address] Ct Imaging Referral ID Status Reason Start Date Expiration Date V isits Requested Visits Authorized [id number] Closed Auto-Generat ed Referral Patient Cleared - [...] Pain Specialty Diagnoses / Procedures Referred By Jennifer jamison Referred To Contact Orthopedic Surgery Diagnoses Chronic pain of both knees Maciej Birmingham Jr., DPM [address] [place] [address] Juan Kilpatrick, FREDY [address] [place] [id number] Referral ID Status Reason Start Date Expiration Date Visits Re quested Visits Authorized [id number] Closed 07/19/2023 07/18/2024 1 1 Reason Onset [...] RETROPERITONEAL REAL TIME W/IMAGE COMPLETE Emelia Lynn APRN.STEAM PRESSER [address] [place] [address] [place] [address] Referral ID Status Reason Start Date Expiration Date V isits Requested Visits Authorized [id number] Closed Auto-Generate d Referral 10/12/2023 11/10/2024 1 1 Reason Comments Consult Kidney Stones Urinary Urgency Specialty Diagnoses / Procedures Referred By Contac t Referred To Contact Urology Diagnoses Kidney stone Procedures CONSULT TO UROLOGY OFFICE/OUTPATIENT [facility] 60 MINUTES Emelia Lynn, GLORIA.STEAM PRESSER [address] [place] [address] Referral ID Status Reason Start Date Expiration Date V isits Requested Visits Authorized [id number] Closed PCP Requested Referral 10/26/2023 10/25/2024 1 1 Reason Onset Date Comments Transition Of Care 11/16/2023 Reason Comments Hospital F/U Reason Comments Order for Aquatic Therapy Reason Comments Follow Up Hospital follow up Reason Comments Results Labs Reason Onset Date Comments Transition Of Care 01/09/2024 Reason Comments Follow Up [facility] ER follow up Reason Comments Follow Up Follow up dementia, reported recent ER WC. Reason Comments Referral for endoscopy Reason Comments [...] Starr RN) 1005 (Given - Provider: Myra Ocampo RN) levothyroxine (SYNTHROID, LEVOTHROID) tablet 100 mcg 100 mcg, Oral, Daily, First dose on 04/18/21 at 0600, For patients on continuous tube feed: Hold TF from 1 hr before until 1 hr after each dose. TF rate may need adjustment to meet caloric needs. 0538 (Given - Provider: Julio Tarango RN) 0531 (Given - Provider: Iqra Blunt, CARIE) 0503 (Given - Provider: Earnestine Arce RN) lisinopriL (PRINIVIL,ZESTRIL) tablet 20 mg 20 mg, Oral, Daily with lunch, First dose (after last modification) on Mon04/18/21 at 1200 1200 (Not Given - Provider: Singh Starr RN - Reason: Contraindicated) 1309 (Given - Provider: Singh Starr RN) 1212 (Given - Provider: Myra Ocampo RN) metoprolol tartrate (LOPRESSOR) tablet 25 mg 25 mg, Oral, 2 times daily, First dose on Mon04/18/21 at 0900 0908 (Given - Provider: Singh Starr RN)2019 (Given - Provider: Iqra Blunt RN) 1046 (Given - Provider: Singh Starr RN)2042 (Given - Provider: Iqra Blunt RN) 1005 (Given - Provider: Myra Ocampo RN) potassium chloride SA (K-DUR,KLOR-CON) CR tablet 20 mEq (CANCELED) 20 mEq, Oral, Daily, First dose on Mon04/18/21 at 0900, DO NOT CRUSH OR CHEW (if instructed may dissolve tablet(s) in liquid) DO NOT ADMINISTER DISSOLVED TABLET VIA SURGICALLY PLACED TUBE OR TUBE less than 14 Macedonian For tube administration: dissolve tablet(s) with 4 ounces of water over 2-3 minutes, stir for 30 seconds prior to administration; rinse dosing cup and administer residual medication to ensure full dose given 907 (Given - Provider: Singh Starr RN) potassium chloride SA (K-DUR,KLOR-CON) CR tablet 20 mEq 20 mEq, Oral, 2 times daily, First dose (after last modification) on Mon04/21/21 at 0900, DO NOT CRUSH OR CHEW (if instructed may dissolve tablet(s) in liquid) DO NOT ADMINISTER DISSOLVED TABLET VIA SURGICALLY PLACED TUBE OR TUBE less than 14 Macedonian For tube administration: dissolve tablet(s) with 4 [...] PLACED TUBE OR TUBE less than 14 Macedonian For tube administration: dissolve tablet(s) with 4 ounces of water over 2-3 minutes, stir for 30 seconds prior to administration; rinse dosing cup and administer residual medication to ensure full dose given 0627 (Given - Provider: Iqra Blunt RN) potassium [...] PLACED TUBE OR TUBE less than 14 Macedonian For tube administration: dissolve tablet(s) with 4 [...] Saline lock 0538 (Given - Provider: Julio Tarango RN)1400 (Given - Provider: Singh Starr RN)2200 (Not Given - Provider: Iqra Blunt RN - Reason: Contraindicated - Comment: IV infusing) 0531 (Given - Provider: Iqra Blunt RN)1309 (Given - Provider: Singh Starr RN)2309 (Given - Provider: Earnestine Arce RN) 0503 (Given - Provider: Earnestine Arce [...] dose within 12 hours of loading dose 2046 (Given - Provider: Earnestine Arce RN) 1046 (Given - Provider: Singh Starr RN)204 (Given - Provider: Iqra Blunt RN) 1006 (Given - Provider: Myra Ocampo RN) tiZANidine (ZANAFLEX) tablet 4 mg 4 mg, Oral, Nightly, First dose on Mon04/18/21 at 0130 2020 (Given - Provider: Iqra Blunt RN) 2200 (Not Given - Provider: Earnestine Arce RN [...] RN)193 (Rate/Dose Change - Provider: Singh Starr RN)1939 (Stopped - Provider: Singh Starr RN)1941 (New Bag - Provider: Singh Starr RN)1943 (Rate/Dose Verify - Provider: Singh Starr RN)1999 [...] Starr RN)1449 (Rate/Dose Verify - Provider: Singh Starr RN)1506 (Rate/Dose Verify - Provider: Singh Starr [...] 1325, Intra-Procedure 1325 (Given - Provider: Izabella Rivero, CARIE) naloxone (NARCAN) injection 0.1 mg(Linked Group 2) [...] Mon04/18/21 at 0040, Anginal pain, may repeat [id number] x3, then notify physician. DO NOT CRUSH [...] CARIE) 0702 (Given - Provider: Earnestine Arce RN) 0851 (Given - Provider: Myra Ocampo RN) [...] at 0033 0004 (Given - Provider: Julio Tarango RN)0858 (Return to Cabinet - Provider: Singh Starr RN) 0702 (Given - Provider: Earnestine Arce RN)1932 (Given - Provider: Iqra Blunt RN) traZODone (DESYREL) tablet 50 mg 50 mg, Oral, Nightly PRN, sleep, Starting on Mon04/18/21 at 0055 0004 (Given - Provider: Julio Tarango RN) verapamiL (ISOPTIN) injection (CANCELED) As needed, Starting [...] breathless, and unresponsive, Starting on Mon04/18/21 at 0033
Call a code first, then administer naloxone dose undiluted IV Push over 30 seconds.
Care Teams (unrecognized sec tion and content) Personal Care Assistant Relationship Specialty Start Date End Date Armando Orozco MD [address] [facility] [address] [place] [address] PCP - General Family Medicine 04/28/21 Personal Care Assistant Relationship Specialty [place] [address] [place] [address] [place] [address] PCP - General Family Medicine 04/28/21 Personal Care Assistant Relationship Specialty Start Date End Date Armando Orozco MD [address] [place] [address] PCP - General Family Practice 04/28/17 Personal Care Assistant Relationship Specialty Start Date End Date Armando Orozco MD [address] [place] [address] PCP - General Family Practice 04/28/17 Personal Care Assistant Relationship Specialty Start Date End Date Armando Orozco MD [address] [place] [address] PCP - General Family Practice 04/28/17 Personal Care Assistant Relationship Specialty Start Date End Date Armando Orozco MD [address] [place] [address] [place] [address] PCP - General Family Practice 04/28/17 Personal Care Assistant Relationship Specialty Start Date End Date Armando Orozco MD [address] [place] [address] [place] [address] PCP - General Family Practice 04/28/17 Personal Care Assistant Relationship Specialty Start Date End Date Armando Orozco MD [address] [place] [address] PCP - General Family Medicine 04/28/17 Personal Care Assistant Relationship Specialty Start Date End Date Armando Orozco MD [address] [facility], [place] [address] PCP - General Family Medicine 04/28/17 Personal Care Assistant Relationship Specialty Start Date End Date Armando Orozco MD [address] [place], [place] [id number] PCP - General Family Medicine 04/28/17 Personal Care Assistant Relationship Specialty Start Date End Date Armando Orozco MD [address] [place], [place] [address] PCP - General Family Medicine 04/28/17 Team Status: Active Member Role Status Dates Singh Brunner FISH NET STRINGER, FISH NET STRINGER-C Family Provider Active Dr. Armando Orozco MD Primary Care Provider Active Team Status: Inactive Member Role Status Dates Dr. Armando Orozco MD Primary Care Provider, Referr ing Provider Active Bev Fernández FISH NET STRINGER, FISH NET STRINGER-C Attending Provider Active Team Status: Inactive Member Role Status Dates Dr. Armando Orozco MD Primary Care Provider, Referr ing Provider Active Nohelia Angel FISH NET STRINGER, FISH NET STRINGER-C Attending Provider Active Team Status: Inactive Member [...] Federico Thomas MD Attending Provider, Referring P sheng Active Personal Care Assistant Relationship Specialty Start Date End Date Armando Orozco MD [address] [facility], [place] [id number] PCP - General Family Medicine 04/28/17 Team [...] MD Primary Care Provider Active Nohelia Angel FISH NET STRINGER, FISH NET STRINGER-C Attending Provider, Referring Phyllis patricio Active Personal Care Assistant Relationship Specialty Start Date End Date Armando Orozco MD [address] [facility] [place] [address] PCP - General Family Medicine 04/28/17 Personal Care Assistant Relationship Specialty Start Date End Date Armando Orozco MD [address] [place] [place] [address] PCP - General Family Medicine 04/28/17 Personal Care Assistant Relationship Specialty Start Date End Date Armando Orozco MD [address] [facility] [place] [address] PCP - General Family Medicine 04/28/17 Personal Care Assistant Relationship Specialty Start Date End Date Armando Orozco MD [address] [place] [address] PCP - General Family Medicine 04/28/17 Personal Care Assistant Relationship Specialty Start Date End Date Armando Orozco MD [address] [facility] [place] [address] PCP - General Family Medicine 04/28/17 Personal Care Assistant Relationship Specialty Start Date End Date Armando Orozco MD [address] [place] [address] PCP - General Family Medicine 04/28/17 Personal Care Assistant Relationship Specialty Start Date End Date Armando Orozco MD [address] [facility] [place] [address] PCP - General Family Medicine 04/28/17 Personal Care Assistant Relationship Specialty Start Date End Date Armando Orozco MD [address] [facility] [place] [address] PCP - General Family Medicine 04/28/17 Personal Care Assistant Relationship Specialty Start Date End Date Armando Orozco MD [address] [place] [address] PCP - General Family Medicine 04/28/17 Personal Care Assistant Relationship Specialty Start Date End Date Armando Orozco MD [address] [place] [address] PCP - General Family Medicine 04/28/17 Personal Care Assistant Relationship Specialty Start Date End Date Armando Orozco MD [address] [facility] [place] [address] PCP - General Family Medicine 04/28/17 Personal Care Assistant Relationship Specialty Start Date End Date Armando Orozco MD [address] [facility] [place] [address] PCP - General Family Medicine 04/28/17 Personal Care Assistant Relationship Specialty Start Date End Date Armando Orozco MD [address] [place] [address] PCP - General Family Medicine 04/28/17 Personal Care Assistant Relationship Specialty Start Date End Date Armando Orozco MD [address] [place] [address] PCP - General Family Medicine 04/28/17 Team [...] Pr ovider, Attending Provider, Referring Provider Active Personal Care Assistant Relationship Specialty Start Date End Date Armando Orozco MD [address] [place] [place] [address] PCP - General Family Medicine 04/28/17 Personal Care Assistant Relationship Specialty Start Date End Date Armando Orozco MD [address] [facility] [place] [address] PCP - General Family Medicine 04/28/17 Personal Care Assistant Relationship Specialty Start Date End Date Armando Orozco MD [address] [place] [place] [address] PCP - General Family Medicine 04/28/17 Personal Care Assistant Relationship Specialty Start Date End Date Armando Orozco MD [facility] [address] [place] [address] PCP - General Family Medicine 04/28/21 Personal Care Assistant Relationship Specialty Start Date End Date Armando Orozco MD [address] [place] [place] [address] PCP - General Family Medicine 04/28/17 Personal Care Assistant Relationship Specialty Start Date End Date Armando Orozco MD [facility] [address] [place] [address] PCP - General Family Medicine 04/28/21 Team Status: Inactive Member Role Status Dates Dr. Armando Orozco MD Primary Care Provider, Referr ing Provider Active SARAH Valdivia Attending Provider Active Team Status: Inactive Member Role Status Dates Dr. Armando Orozco MD Primary Care Provider Active SARAH Valdivia Attending Provider, Referring Provid er Active Personal Care Assistant Relationship Specialty Start Date End Date Armando Orozco MD [address] [facility] [place] [address] PCP - General Family Medicine 04/28/17 Personal Care Assistant Relationship Specialty Start Date End Date Armando Orozco MD [address] [facility] [place] [address] PCP - General Family Medicine 04/28/17 Personal Care Assistant Relationship Specialty Start Date End Date Armando Orozco MD [address] [facility] [place] [address] PCP - General Family Medicine 04/28/17 Personal Care Assistant Relationship Specialty Start Date End Date Armando Orozco MD [address] [place] [address] PCP - General Family Medicine 04/28/17 Personal Care Assistant Relationship Specialty Start Date End Date Armando Orozco MD [address] [facility] [address] PCP - General Family Medicine 04/28/17 Team Status: Active Member Role Status Dates Dr. Armando Orozco MD Primary Care Provider Active Dr. Gregory Benjamin MD Attending Provider Active SARAH Valdivia Referring Provider Active Team Status: Inactive Member Role Status Dates Dr. Armando Orozco MD Primary Care Provider, Referr ing Provider Active Qing SMITH, PA Attending Provider Active Team Status: Active Member Role Status Dates Dr. Armando Orozco MD Primary Care Provider Active Dr. Matthieu Gomez DO Emergency Provider Active Dr. Tahira Meadows DO Attending Provider Active Team Status: Inactive Member Role Status Dates Dr. Armando Orozco MD Primary Care Provider Active Dr. Gregory Conroy DO Attending Provider, Emergency Phyllis patricio Active Team Status: Active Member Role Status Dates Dr. Armando Orozco MD Primary Care Provider Active Dr. Matthieu Gomez DO Emergency Provider Active Dr. Tahira Meadows , DO Admit Provider, Att ending Provider, Referring Provider Active Team Status: Active Member Role Status Dates Dr. Armando Orozco MD Primary Care Provider Active Dr. Yumiko Lizama MD Attending Provider Active Team Status: Active Member Role Status Dates Dr. Armando Orozco MD Primary Care Provider Active Dr. Matthieu Gomez DO Emergency Provider Active Dr. Tahira Meadows , DO Admit Provider, Ref erring Provider, Other [...] Dr. Jose Ortega MD Attending Provider Active Personal Care Assistant Relationship Specialty Start Date End Date Armando Orozco MD [address] [place] [address] PCP - General Family Medicine 04/28/17 Personal Care Assistant Relationship Specialty Start Date End Date Armando Orozco MD [address] [place], [place] [address] PCP - General Family Medicine 04/28/17 Team Status: Active Member Role Status Dates Dr. Armando Orozco MD Primary Care Provider Active Dr. Matthieu Gomez , Emergency Provider Active Dr. Tahira Meadows , Admit Provider, Other Provider Ac jason Young MD Other Provider Active Dr. Vanessa [...] Hutton MD Other Provider Active Dr. Little Olsonh , MD Other Provider Active Dr. Stan Gar [...] Dr. Jose Ortega MD Other Provider Active Personal Care Assistant Relationship Specialty Start Date End Date Armando Orozco MD [address] [place] [address] PCP - General Family Medicine 04/28/17 Team [...] Admit Provider, Other Pro vider Active Dr. Tahria Meadows , DO Attending Provider Active Jonny Young MD Other Provider Active Dr. Vanessa Waldron MD Other Provider Active Jennifer Gonzalez MD Other Provider Active Dr. Minoo Silver , Other Provider Active Dr. Anabell Bang MD [...] Active Kelby Cordoba MD Other Provider Active Personal Care Assistant Relationship Specialty Start Date End Date Armando Orozco MD [address] [place] [address] PCP - General Family Medicine 04/28/17 Personal Care Assistant Relationship Specialty Start Date End Date Armando Orozco MD [address] [place] [address] PCP - General Family Medicine 04/28/17 Personal Care Assistant Relationship Specialty Start Date End Date Armando Orozco MD [address] [facility] [place] [address] PCP - General Family Medicine 04/28/17 Personal Care Assistant Relationship Specialty Start Date End Date Armando Orozco MD [address] [facility] [place] [address] PCP - General Family Medicine 04/28/17 Personal Care Assistant Relationship Specialty Start Date End Date Armando Orozco MD [address] [facility] [place] [address] PCP - General Family Medicine 04/28/17 Personal Care Assistant Relationship Specialty Start Date End Date Armando Orozco MD [address] [facility] [address] PCP - General Family Medicine 04/28/17 Personal Care Assistant Relationship Specialty Start Date End Date Armando Orozco MD [address] [facility] [place] [address] PCP - General Family Medicine 04/28/17 Personal Care Assistant Relationship Specialty Start Date End Date Armando Orozco MD [address] [facility] [address] PCP - General Family Medicine 04/28/17 Personal Care Assistant Relationship Specialty Start Date End Date Armando Orozco MD [address] [facility] [place] [address] PCP - General Family Medicine 04/28/17 Personal Care Assistant Relationship Specialty Start Date End Date Armando Orozco MD [address] [facility] [place] [address] PCP - General Family Medicine 04/28/17 Personal Care Assistant Relationship Specialty Start Date End Date Armando Orozco MD [address] [facility] [place] [address] PCP - General Family Medicine 04/28/17 Personal Care Assistant Relationship Specialty Start Date End Date Armando Orozco MD [address] [facility] [place] [address] PCP - General Family Medicine 04/28/17 Personal Care Assistant Relationship Specialty Start Date End Date Armando Orozco MD [address] [place] [address] PCP - General Family Medicine 04/28/17 Personal Care Assistant Relationship Specialty Start Date End Date Armando Orozco MD [address] [place] [address] PCP - General 07/12/19 Personal Care Assistant Relationship Specialty Start Date End Date Armando Orozco MD [address] [place] [address] PCP - General Family Medicine 04/28/17 Emelia Lynn APRN.STEAM PRESSER [address] [place] [address] Photogrammetric Technician Family Medicine 08/18/24 Kushal Weldon APRN.STEAM PRESSER [address] [facility] [place] [address] Photogrammetric Technician Family Medicine 08/27/24 Personal Care Assistant Relationship Specialty Start Date End Date Armando Orozco MD [address] [facility] [place] [address] PCP - General Family Medicine 04/28/17 Emelia Lynn APRN.STEAM PRESSER [address] [facility] [place] [address] Photogrammetric Technician Family Medicine 08/18/24 Kushal Weldon APRN.STEAM PRESSER [address] [facility] [place] [address] Photogrammetric Technician Family Medicine 08/27/24 Personal Care Assistant Relationship Specialty Start Date End Date Armando Orozco MD [address] [facility] [place] [address] PCP - General Family Medicine 04/28/17 Emelia Lynn APRN.STEAM PRESSER [address] [place] [address] Photogrammetric Technician Family Medicine 08/18/24 Kushal Weldon APRN.STEAM PRESSER [address] [facility] [place] [address] [facility] 08/27/24 Personal Care Assistant Relationship Specialty Start Date End Date Armando Orozco MD [address] [place] [address] PCP - General Family Medicine 04/28/17 Emelia Lynn APRN.STEAM PRESSER [address] [facility] [place] [address] Photogrammetric Technician Family Medicine 08/18/24 Kushal Weldon APRN.STEAM PRESSER [address] [facility] [address] Photogrammetric Technician Family Medicine 08/27/24 Personal Care Assistant Relationship Specialty Start Date End Date Armando Orozco MD [address] [facility] [address] PCP - General Family Medicine 04/28/17 Emelia Lynn APRN.STEAM PRESSER [address] [place] [address] Photogrammetric Technician Family Medicine 08/18/24 Kushal Weldon APRN.STEAM PRESSER [address] [facility] [address] Photogrammetric Technician Family Medicine 08/27/24 Personal Care Assistant Relationship Specialty Start Date End Date Armando Orozco MD [address] [place] [address] PCP - General Family Medicine 04/28/17 Emelia Lynn APRN.STEAM PRESSER [address] [place] [address] Photogrammetric Technician Family Medicine 08/18/24 Kushal Weldon APRN.STEAM PRESSER [address] [place] [address] Photogrammetric Technician Family [facility] 08/27/24 Personal Care Assistant Relationship Specialty Start Date End Date Armando Orozco MD [address] [place] [address] PCP - General Family Medicine 04/28/17 Emelia Lynn APRN.STEAM PRESSER [address] [place] [address] Photogrammetric Technician Family Medicine 08/18/24 Kushal Weldon APRN.STEAM PRESSER [address] [facility] [place] [address] Photogrammetric Technician Family Medicine 08/27/24 Personal Care Assistant Relationship Specialty Start Date End Date Armando Orozco MD [address] [facility] [address] PCP - General Family Medicine 04/28/17 Emelia Lynn APRN.STEAM PRESSER [address] [place] [address] Photogrammetric Technician Family Medicine 08/18/24 Kushal Weldon APRN.STEAM PRESSER [address] [place] [address] [facility] Personal Care Assistant Relationship Specialty Start Date End Date Armando Orozco MD [address] [place] [address] PCP - General Family Medicine 04/28/17 Emelia Lynn APRN.STEAM PRESSER [address] [place] [address] Photogrammetric Technician Family Medicine 08/18/24 Kushal Weldon APRN.STEAM PRESSER [address] [place] [address] Photogrammetric Technician Family Medicine 08/27/24 Personal Care Assistant Relationship Specialty Start Date End Date Armando Orozco MD [address] [place] [address] PCP - General Family Medicine 04/28/17 Emelia Lynn APRN.STEAM PRESSER [address] [place] [address] [facility] 08/18/24 Kushal Weldon APRN.STEAM PRESSER [address] [place], [place] [address] [facility] 08/27/24 Personal Care Assistant Relationship Specialty Start Date End Date Armando Orozco MD [address] [place], [place] [address] PCP - General Family Medicine 04/28/17 Emelia Lynn PIT CLERK.STEAM PRESSER [address] [place], [place] [address] [facility] 08/18/24 Kushal Weldon APRN.STEAM PRESSER [address] [place] [address] [facility] 08/27/24 Team Status: Active Member Role Status Dates Dr. Armando Orozco MD Primary Care Provider Active Team Status: Inactive Member Role Status Dates Dr. Armando Orozco MD Primary Care Provider Active Start: August 30, 2024 End: August 30, 2024 Dr. Armando Orozco MD Referring Provider Active Start: August 30, [...] 25, 2024 End: September 25, 2024 Qing SMITH, PA Attending Provider Active Start: September 25, [...] December 18, 2024 End: December 18, 2024 Personal Care Assistant Relationship Specialty Start Date End Date Armando Orozco MD [address] [facility] [place] [address] PCP - General Family Medicine 04/28/17 Emelia Lynn PIT CLERK.STEAM PRESSER [address] [facility] [place] [address] [facility] Kushal Weldon PIT CLERK.STEAM PRESSER [address] [facility] [place] [address] [facility] 08/27/24 Personal Care Assistant Relationship Specialty Start Date End Date Armando Orozco MD [address] [place] [address] PCP - General Family Medicine 04/28/17 Emelia Lynn PIT CLERK.STEAM PRESSER [address] [place] [address] Photogrammetric Technician Family Medicine 08/18/24 Kushal Weldon PIT CLERK.STEAM PRESSER [address] [place] [address] [facility] 08/27/24 Team Status: Active Member Role Status Dates Dr. Romie Batista MD Attending Provider Active Start: December 18, 2024 Dr. Jaguar Cannon DPM Referring Provider Active Start: December 18, 2024 Team Status: Inactive Member Role Status Dates Dr. Armando Orozco MD Primary Care Provider Active Start: January 30, 2025 End: January 30, 2025 Dr. Harris James , Attending Provider Active Start: January 30, 2025 End: January 30, 2025 Dr. Harris James , DO Referring Provider Active Start: January 30, 2025 End: January 30, 2025 Dr. Harris James DO Emergency Provider Active Start: January [...] February 17, 2025 End: February 17, 2025 Personal Care Assistant Relationship Specialty Start Date End Date Armando Orozco MD [address] [place], [place] [address] PCP - General Family Medicine 04/28/17 Kushal Weldon APRN.CNP [address] [place], [place] [id number] Photogrammetric Technician Family Medicine 08/27/24 Team Status: Active Member [...] 30, 2025 End: January 30, 2025 Dr. Harris James DO Attending Provider Active Start: January 30, 2025 End: January 30, 2025 Dr. Harris James DO Referring Provider Active Start: January 30, 2025 End: January 30, 2025 Dr. Harris James DO Emergency Provider Active Start: January [...] 2025 End: April 15, 2025 Dr. Alma Lakhnai MD Attending Provider Active Start: April 15, 2025 End: April 15, 2025 Team Status: Inactive Member Role/Relationship Status Dates Dr. Armando Orozco MD Primary Care Provider Active Start: January 30, 2025 End: January 30, 2025 Dr. Harris James DO Attending Provider Active Start: January 30, 2025 End: January 30, 2025 Dr. Harris James DO Referring Provider Active Start: January 30, 2025 End: January 30, 2025 Dr. Harris James DO Emergency Provider Active Start: January [...] April 22, 2025 End: April 22, 2025 Team Status: Inactive Member Role/Relationship Status Dates Dr. Armando Orozco MD Primary Care Provider Active Start: April 22, 2025 End: April 22, 2025 Dr. Frankie Quispe MD Attending Provider Active S tart: April 22, 2025 End: April 22, 2025 Dr. Frankie Quispe MD Referring Provider Active S tart: April 22, 2025 End: April 22, 2025 Team Status: Active Member Role/Relationship Status [...] April 22, 2025 End: April 22, 2025 Team Status: Active Member Role/Relationship Status Dates Dr. Armando Orozco MD Primary Care Provider Active Start: April 24, 2025 Nohelia Angel FISH NET STRINGER, FISH NET STRINGER-C Attending Provider Active Start: April 24, 2025 Team Status: Inactive Member Role/Relationship Status Dates Dr. Armando Orozco MD Primary Care Provider Active Start: April 29, 2025 End: April 29, 2025 Dr. Armando Orozco MD Referring Provider Active Start: April 29, 2025 End: April 29, 2025 Dr. Alma Lakhani MD Attending Provider Active Start: April 29, 2025 End: April 29, 2025 Team Status: Inactive Member Role/Relationship Status Dates Dr. Armando Orozco MD Primary Care Provider Active Start: May 06, 2025 End: May 06, 2025 Dr. Armando Orozco MD Referring Provider Active Start: May 06, 2025 End: May 06, 2025 Dr. Alma Lakhani MD Attending Provider Active Start: May 06, 2025 End: May 06, 2025 Source Comments (unrecognize d section and content) In the event this informatio n is protected by the Federal Confidentiality of Alcohol and Drug Abuse Patient Records regulations: The Federal rules restrict any use of the information to criminally investigate or prosecute any alcohol or drug abuse patient.[facility]In the event this information is protected by the Federal Confidentiality of Alcohol and Drug Abuse Patient Records regulations: The Federal rules restrict any use of the information to criminally investigate or prosecute any alcohol or drug abuse patient.[facility] HospitalIn the event this information is protected by the Federal Confidentiality of Alcohol and Drug Abuse Patient Records regulations: The Federal rules restrict any use of the information to criminally investigate or prosecute any alcohol or drug abuse patient.[facility] HospitalIn the event this information is protected by the Federal Confidentiality of Alcohol and Drug Abuse Patient Records regulations: The Federal rules restrict any use of the information to criminally investigate or prosecute any alcohol or drug abuse patient.[facility] HospitalIn the event this information is protected by the Federal Confidentiality of Alcohol and Drug Abuse Patient Records regulations: The Federal rules restrict any use of the information to criminally investigate or prosecute any alcohol or drug abuse patient.[facility] HospitalIn the event this information is protected by the Federal Confidentiality of Alcohol and Drug Abuse Patient Records regulations: The Federal rules restrict any use of the information to criminally investigate or prosecute any alcohol or drug abuse patient.[facility] HospitalIn the event this information is protected by the Federal Confidentiality of Alcohol and Drug Abuse Patient Records regulations: The Federal rules restrict any use of the information to criminally investigate or prosecute any alcohol or drug abuse patient.[facility] HospitalIn the event this information is protected by the Federal Confidentiality of Alcohol and Drug Abuse Patient Records regulations: The Federal rules restrict any use of the information to criminally investigate or prosecute any alcohol or drug abuse patient.[facility] HospitalIn the event this information is protected by the Federal Confidentiality of Alcohol and Drug Abuse Patient Records regulations: The Federal rules restrict any use of the information to criminally investigate or prosecute any alcohol or drug abuse patient.[facility] HospitalIn the event this information is protected by the Federal Confidentiality of Alcohol and Drug Abuse Patient Records regulations: The Federal rules restrict any use of the information to criminally investigate or prosecute any alcohol or drug abuse patient.[facility] HospitalIn the event this information is protected by the Federal Confidentiality of Alcohol and Drug Abuse Patient Records regulations: The Federal rules restrict any use of the information to criminally investigate or prosecute any alcohol or drug abuse patient.[facility] HospitalIn the event this information is protected by the Federal Confidentiality of Alcohol and Drug Abuse Patient Records regulations: The Federal rules restrict any use of the information to criminally investigate or prosecute any alcohol or drug abuse patient.[facility] HospitalIn the event this information is protected by the Federal Confidentiality of Alcohol and Drug Abuse Patient Records regulations: The Federal rules restrict any use of the information to criminally investigate or prosecute any alcohol or drug abuse patient.[facility] HospitalIn the event this information is protected by the Federal Confidentiality of Alcohol and Drug Abuse Patient Records regulations: The Federal rules restrict any use of the information to criminally investigate or prosecute any alcohol or drug abuse patient.[facility] HospitalIn the event this information is protected by the Federal Confidentiality of Alcohol and Drug Abuse Patient Records regulations: The Federal rules restrict any use of the information to criminally investigate or prosecute any alcohol or drug abuse patient.[facility] HospitalIn the event this information is protected by the Federal Confidentiality of Alcohol and Drug Abuse Patient Records regulations: The Federal rules restrict any use of the information to criminally investigate or prosecute any alcohol or drug abuse patient.[facility] HospitalIn the event this information is protected by the Federal Confidentiality of Alcohol and Drug Abuse Patient Records regulations: The Federal rules restrict any use of the information to criminally investigate or prosecute any alcohol or drug abuse patient.[facility] HospitalIn the event this information is protected by the Federal Confidentiality of Alcohol and Drug Abuse Patient Records regulations: The Federal rules restrict any use of the information to criminally investigate or prosecute any alcohol or drug abuse patient.[facility] HospitalIn the event this information is protected by the Federal Confidentiality of Alcohol and Drug Abuse Patient Records regulations: The Federal rules restrict any use of the information to criminally investigate or prosecute any alcohol or drug abuse patient.[facility] HospitalIn the event this information is protected by the Federal Confidentiality of Alcohol and Drug Abuse Patient Records regulations: The Federal rules restrict any use of the information to criminally investigate or prosecute any alcohol or drug abuse patient.[facility] HospitalIn the event this information is protected by the Federal Confidentiality of Alcohol and Drug Abuse Patient Records regulations: The Federal rules restrict any use of the information to criminally investigate or prosecute any alcohol or drug abuse patient.[facility] HospitalIn the event this information is protected by the Federal Confidentiality of Alcohol and Drug Abuse Patient Records regulations: The Federal rules restrict any use of the information to criminally investigate or prosecute any alcohol or drug abuse patient.[facility] HospitalIn the event this information is protected by the Federal Confidentiality of Alcohol and Drug Abuse Patient Records regulations: The Federal rules restrict any use of the information to criminally investigate or prosecute any alcohol or drug abuse patient.[facility] HospitalIn the event this information is protected by the Federal Confidentiality of Alcohol and Drug Abuse Patient Records regulations: The Federal rules restrict any use of the information to criminally investigate or prosecute any alcohol or drug abuse patient.[facility] HospitalIn the event this information is protected by the Federal Confidentiality of Alcohol and Drug Abuse Patient Records regulations: The Federal rules restrict any use of the information to criminally investigate or prosecute any alcohol or drug abuse patient.[facility] HospitalIn the event this information is protected by the Federal Confidentiality of Alcohol and Drug Abuse Patient Records regulations: The Federal rules restrict any use of the information to criminally investigate or prosecute any alcohol or drug abuse patient.[facility] HospitalIn the event this information is protected by the Federal Confidentiality of Alcohol and Drug Abuse Patient Records regulations: The Federal rules restrict any use of the information to criminally investigate or prosecute any alcohol or drug abuse patient.[facility] HospitalIn the event this information is protected by the Federal Confidentiality of Alcohol and Drug Abuse Patient Records regulations: The Federal rules restrict any use of the information to criminally investigate or prosecute any alcohol or drug abuse patient.[facility] HospitalIn the event this information is protected by the Federal Confidentiality of Alcohol and Drug Abuse Patient Records regulations: The Federal rules restrict any use of the information to criminally investigate or prosecute any alcohol or drug abuse patient.[facility] HospitalIn the event this information is protected by the Federal Confidentiality of Alcohol and Drug Abuse Patient Records regulations: The Federal rules restrict any use of the information to criminally investigate or prosecute any alcohol or drug abuse patient.[facility] HospitalIn the event this information is protected by the Federal Confidentiality of Alcohol and Drug Abuse Patient Records regulations: The Federal rules restrict any use of the information to criminally investigate or prosecute any alcohol or drug abuse patient.[facility] HospitalIn the event this information is protected by the Federal Confidentiality of Alcohol and Drug Abuse Patient Records regulations: The Federal rules restrict any use of the information to criminally investigate or prosecute any alcohol or drug abuse patient.[facility] HospitalIn the event this information is protected by the Federal Confidentiality of Alcohol and Drug Abuse Patient Records regulations: The Federal rules restrict any use of the information to criminally investigate or prosecute any alcohol or drug abuse patient.[facility] HospitalIn the event this information is protected by the Federal Confidentiality of Alcohol and Drug Abuse Patient Records regulations: The Federal rules restrict any use of the information to criminally investigate or prosecute any alcohol or drug abuse patient.[facility] HospitalIn the event this information is protected by the Federal Confidentiality of Alcohol and Drug Abuse Patient Records regulations: The Federal rules restrict any use of the information to criminally investigate or prosecute any alcohol or drug abuse patient.[facility] HospitalIn the event this information is protected by the Federal Confidentiality of Alcohol and Drug Abuse Patient Records regulations: The Federal rules restrict any use of the information to criminally investigate or prosecute any alcohol or drug abuse patient.[facility] HospitalIn the event this information is protected by the Federal Confidentiality of Alcohol and Drug Abuse Patient Records regulations: The Federal rules restrict any use of the information to criminally investigate or prosecute any alcohol or drug abuse patient.[facility] HospitalIn the event this information is protected by the Federal Confidentiality of Alcohol and Drug Abuse Patient Records regulations: The Federal rules restrict any use of the information to criminally investigate or prosecute any alcohol or drug abuse patient.[facility] HospitalIn the event this information is protected by the Federal Confidentiality of Alcohol and Drug Abuse Patient Records regulations: The Federal rules restrict any use of the information to criminally investigate or prosecute any alcohol or drug abuse patient.[facility] HospitalIn the event this information is protected by the Federal Confidentiality of Alcohol and Drug Abuse Patient Records regulations: The Federal rules restrict any use of the information to criminally investigate or prosecute any alcohol or drug abuse patient.[facility] HospitalIn the event this information is protected by the Federal Confidentiality of Alcohol and Drug Abuse Patient Records regulations: The Federal rules restrict any use of the information to criminally investigate or prosecute any alcohol or drug abuse patient.[facility] HospitalIn the event this information is protected by the Federal Confidentiality of Alcohol and Drug Abuse Patient Records regulations: The Federal rules restrict any use of the information to criminally investigate or prosecute any alcohol or drug abuse patient.[facility] HospitalIn the event this information is protected by the Federal Confidentiality of Alcohol and Drug Abuse Patient Records regulations: The Federal rules restrict any use of the information to criminally investigate or prosecute any alcohol or drug abuse patient.[facility] HospitalIn the event this information is protected by the Federal Confidentiality of Alcohol and Drug Abuse Patient Records regulations: The Federal rules restrict any use of the information to criminally investigate or prosecute any alcohol or drug abuse patient.[facility] HospitalIn the event this information is protected by the Federal Confidentiality of Alcohol and Drug Abuse Patient Records regulations: The Federal rules restrict any use of the information to criminally investigate or prosecute any alcohol or drug abuse patient.[facility] HospitalIn the event this information is protected by the Federal Confidentiality of Alcohol and Drug Abuse Patient Records regulations: The Federal rules restrict any use of the information to criminally investigate or prosecute any alcohol or drug abuse patient.[facility] HospitalIn the event this information is protected by the Federal Confidentiality of Alcohol and Drug Abuse Patient Records regulations: The Federal rules restrict any use of the information to criminally investigate or prosecute any alcohol or drug abuse patient.[facility] HospitalIn the event this information is protected by the Federal Confidentiality of Alcohol and Drug Abuse Patient Records regulations: The Federal rules restrict any use of the information to criminally investigate or prosecute any alcohol or drug abuse patient.[facility] HospitalIn the event this information is protected by the Federal Confidentiality of Alcohol and Drug Abuse Patient Records regulations: The Federal rules restrict any use of the information to criminally investigate or prosecute any alcohol or drug abuse patient.[facility] HospitalIn the event this information is protected by the Federal Confidentiality of Alcohol and Drug Abuse Patient Records regulations: The Federal rules restrict any use of the information to criminally investigate or prosecute any alcohol or drug abuse patient.[facility] HospitalIn the event this information is protected by the Federal Confidentiality of Alcohol and Drug Abuse Patient Records regulations: The Federal rules restrict any use of the information to criminally investigate or prosecute any alcohol or drug abuse patient.[facility] HospitalIn the event this information is protected by the Federal Confidentiality of Alcohol and Drug Abuse Patient Records regulations: The Federal rules restrict any use of the information to criminally investigate or prosecute any alcohol or drug abuse patient.[facility] HospitalIn the event this information is protected by the Federal Confidentiality of Alcohol and Drug Abuse Patient Records regulations: The Federal rules restrict any use of the information to criminally investigate or prosecute any alcohol or drug abuse patient.[facility] HospitalIn the event this information is protected by the Federal Confidentiality of Alcohol and Drug Abuse Patient Records regulations: The Federal rules restrict any use of the information to criminally investigate or prosecute any alcohol or drug abuse patient.[facility] HospitalIn the event this information is protected by the Federal Confidentiality of Alcohol and Drug Abuse Patient Records regulations: The Federal rules restrict any use of the information to criminally investigate or prosecute any alcohol or drug abuse patient.[facility] HospitalIn the event this information is protected by the Federal Confidentiality of Alcohol and Drug Abuse Patient Records regulations: The Federal rules restrict any use of the information to criminally investigate or prosecute any alcohol or drug abuse patient.[facility] HospitalIn the event this information is protected by the Federal Confidentiality of Alcohol and Drug Abuse Patient Records regulations: The Federal rules restrict any use of the information to criminally investigate or prosecute any alcohol or drug abuse patient.[facility] HospitalIn the event this information is protected by the Federal Confidentiality of Alcohol and Drug Abuse Patient Records regulations: The Federal rules restrict any use of the information to criminally investigate or prosecute any alcohol or drug abuse patient.[facility] HospitalIn the event this information is protected by the Federal Confidentiality of Alcohol and Drug Abuse Patient Records regulations: The Federal rules restrict any use of the information to criminally investigate or prosecute any alcohol or drug abuse patient.[facility] HospitalIn the event this information is protected by the Federal Confidentiality of Alcohol and Drug Abuse Patient Records regulations: The Federal rules restrict any use of the information to criminally investigate or prosecute any alcohol or drug abuse patient.[facility] HospitalIn the event this information is protected by the Federal Confidentiality of Alcohol and Drug Abuse Patient Records regulations: The Federal rules restrict any use of the information to criminally investigate or prosecute any alcohol or drug abuse patient.[facility] HospitalIn the event this information is protected by the Federal Confidentiality of Alcohol and Drug Abuse Patient Records regulations: The Federal rules restrict any use of the information to criminally investigate or prosecute any alcohol or drug abuse patient.[facility] HospitalIn the event this information is protected by the Federal Confidentiality of Alcohol and Drug Abuse Patient Records regulations: The Federal rules restrict any use of the information to criminally investigate or prosecute any alcohol or drug abuse patient.[facility] HospitalIn the event this information is protected by the Federal Confidentiality of Alcohol and Drug Abuse Patient Records regulations: The Federal rules restrict any use of the information to criminally investigate or prosecute any alcohol or drug abuse patient.[facility] HospitalIn the event this information is protected by the Federal Confidentiality of Alcohol and Drug Abuse Patient Records regulations: The Federal rules restrict any use of the information to criminally investigate or prosecute any alcohol or drug abuse patient.[facility] HospitalIn the event this information is protected by the Federal Confidentiality of Alcohol and Drug Abuse Patient Records regulations: The Federal rules restrict any use of the information to criminally investigate or prosecute any alcohol or drug abuse patient.[facility] HospitalIn the event this information is protected by the Federal Confidentiality of Alcohol and Drug Abuse Patient Records regulations: The Federal rules restrict any use of the information to criminally investigate or prosecute any alcohol or drug abuse patient.[facility] HospitalIn the event this information is protected by the Federal Confidentiality of Alcohol and Drug Abuse Patient Records regulations: The Federal rules restrict any use of the information to criminally investigate or prosecute any alcohol or drug abuse patient.[facility] HospitalIn the event this information is protected by the Federal Confidentiality of Alcohol and Drug Abuse Patient Records regulations: The Federal rules restrict any use of the information to criminally investigate or prosecute any alcohol or drug abuse patient.[facility] HospitalIn the event this information is protected by the Federal Confidentiality of Alcohol and Drug Abuse Patient Records regulations: The Federal rules restrict any use of the information to criminally investigate or prosecute any alcohol or drug abuse patient.[facility] HospitalIn the event this information is protected by the Federal Confidentiality of Alcohol and Drug Abuse Patient Records regulations: The Federal rules restrict any use of the information to criminally investigate or prosecute any alcohol or drug abuse patient.[facility] HospitalIn the event this information is protected by the Federal Confidentiality of Alcohol and Drug Abuse Patient Records regulations: The Federal rules restrict any use of the information to criminally investigate or prosecute any alcohol or drug abuse patient.[facility] HospitalIn the event this information is protected by the Federal Confidentiality of Alcohol and Drug Abuse Patient Records regulations: The Federal rules restrict any use of the information to criminally investigate or prosecute any alcohol or drug abuse patient.[facility] HospitalIn the event this information is protected by the Federal Confidentiality of Alcohol and Drug Abuse Patient Records regulations: The Federal rules restrict any use of the information to criminally investigate or prosecute any alcohol or drug abuse patient.[facility] HospitalIn the event this information is protected by the Federal Confidentiality of Alcohol and Drug Abuse Patient Records regulations: The Federal rules restrict any use of the information to criminally investigate or prosecute any alcohol or drug abuse patient.[facility] HospitalIn the event this information is protected by the Federal Confidentiality of Alcohol and Drug Abuse Patient Records regulations: The Federal rules restrict any use of the information to criminally investigate or prosecute any alcohol or drug abuse patient.[facility] HospitalIn the event this information is protected by the Federal Confidentiality of Alcohol and Drug Abuse Patient Records regulations: The Federal rules restrict any use of the information to criminally investigate or prosecute any alcohol or drug abuse patient.[facility] HospitalIn the event this information is protected by the Federal Confidentiality of Alcohol and Drug Abuse Patient Records regulations: The Federal rules restrict any use of the information to criminally investigate or prosecute any alcohol or drug abuse patient.[facility] HospitalIn the event this information is protected by the Federal Confidentiality of Alcohol and Drug Abuse Patient Records regulations: The Federal rules restrict any use of the information to criminally investigate or prosecute any alcohol or drug abuse patient.[facility] HospitalIn the event this information is protected by the Federal Confidentiality of Alcohol and Drug Abuse Patient Records regulations: The Federal rules restrict any use of the information to criminally investigate or prosecute any alcohol or drug abuse patient.[facility] HospitalIn the event this information is protected by the Federal Confidentiality of Alcohol and Drug Abuse Patient Records regulations: The Federal rules restrict any use of the information to criminally investigate or prosecute any alcohol or drug abuse patient.[facility] HospitalIn the event this information is protected by the Federal Confidentiality of Alcohol and Drug Abuse Patient Records regulations: The Federal rules restrict any use of the information to criminally investigate or prosecute any alcohol or drug abuse patient.[facility] HospitalIn the event this information is protected by the Federal Confidentiality of Alcohol and Drug Abuse Patient Records regulations: The Federal rules restrict any use of the information to criminally investigate or prosecute any alcohol or drug abuse patient.[facility] HospitalIn the event this information is protected by the Federal Confidentiality of Alcohol and Drug Abuse Patient Records regulations: The Federal rules restrict any use of the information to criminally investigate or prosecute any alcohol or drug abuse patient.[facility] HospitalIn the event this information is protected by the Federal Confidentiality of Alcohol and Drug Abuse Patient Records regulations: The Federal rules restrict any use of the information to criminally investigate or prosecute any alcohol or drug abuse patient.[facility] HospitalIn the event this information is protected by the Federal Confidentiality of Alcohol and Drug Abuse Patient Records regulations: The Federal rules restrict any use of the information to criminally investigate or prosecute any alcohol or drug abuse patient.[facility] HospitalIn the event this information is protected by the Federal Confidentiality of Alcohol and Drug Abuse Patient Records regulations: The Federal rules restrict any use of the information to criminally investigate or prosecute any alcohol or drug abuse patient.[facility] HospitalIn the event this information is protected by the Federal Confidentiality of Alcohol and Drug Abuse Patient Records regulations: The Federal rules restrict any use of the information to criminally investigate or prosecute any alcohol or drug abuse patient.[facility] HospitalIn the event this information is protected by the Federal Confidentiality of Alcohol and Drug Abuse Patient Records regulations: The Federal rules restrict any use of the information to criminally investigate or prosecute any alcohol or drug abuse patient.[facility] HospitalIn the event this information is protected by the Federal Confidentiality of Alcohol and Drug Abuse Patient Records regulations: The Federal rules restrict any use of the information to criminally investigate or prosecute any alcohol or drug abuse patient.[facility] HospitalIn the event this information is protected by the Federal Confidentiality of Alcohol and Drug Abuse Patient Records regulations: The Federal rules restrict any use of the information to criminally investigate or prosecute any alcohol or drug abuse patient.[facility] Goals (unrecognized section and content) Goals [...] BE BASED ON THE PRIMARY CLINICAL RECORDS. [facility]. provides no warranty or guarantee of the accuracy or completeness of information in this document.
[2025-05-12 17:21] VITALS: BP 132/79; PULSE 69; RESP 18; TEMP 36.9; O2SAT 98
[2025-05-12 17:58] VITALS: BP 142/60; PULSE 73; RESP 19; TEMP 36.6; O2SAT 100
[2025-05-12] MEDS: Lidocaine 1% (20 ml mdv) 20 ML Vial INFILT (18:06)
== END 2025-05-12 18:09 | disposition home or self-care (01) ==
PROVIDERS: Emergency Provider Emergency Medicine; PCP Family Medicine; Visit Provider Emergency Medicine
DX: S06.0X0A Concussion without loss of consciousness, initial encounter (principal); S02.2XXA Fracture of nasal bones, initial encounter for closed fracture; S01.81XA Laceration without foreign body of other part of head, initial encounter; S20.219A Contusion of unspecified front wall of thorax, initial encounter; S50.12XA Contusion of left forearm, initial encounter; W01.0XXA Fall on same level from slipping, tripping and stumbling without subsequent striking against object, initial encounter; G44.319 Acute post-traumatic headache, not intractable; I25.10 Atherosclerotic heart disease of native coronary artery without angina pectoris; I10 Essential (primary) hypertension; Z95.5 Presence of coronary angioplasty implant and graft; Z79.82 Long term (current) use of aspirin; Z79.899 Other long term (current) drug therapy
CPT/HCPCS: 12011; 70450; 99285